=== PATIENT | female | born 1955 | race Caucasian/White ===

== ENCOUNTER 2022-08-31 14:31 | Outpatient (OUT) | payer MEDICARE, SELFPAY ==
--- NOTE | 2022-08-31 | CONS_ITS ---
PROCEDURE DATE: ??08/31/2022 PROCEDURE:? Left erector spinae trigger point injection. PREOPERATIVE DIAGNOSIS:? Pain secondary to myofascial space of the lumbar erector spinae muscles, most significant at the L4 level on the left side. POSTOPERATIVE DIAGNOSIS:? Pain secondary to myofascial space of the lumbar erector spinae muscles, most significant at the L4 level on the left side. SOLUTION USED FOR INJECTION:? 2 mL of 2% lidocaine, 2 mL of 0.25% Marcaine and 10 mg of Kenalog, total of 5 mL, 2 mL used for the injection at the site. IMMEDIATE COMPLICATIONS:? None. PROCEDURE:? After informed consent was obtained from the patient, placed in the prone position.? The skin overlying the area was prepped with alcohol.? A 25 gauge 1 ?? needle was inserted to the left erector spinae muscle at the L4 level.? Needle tip was advanced until there was a twitch response.? There was no indication of intravascular or intraneural needle tip placement.? 2 mL was injection.? No indication of intravascular or intraneural injection.? Post procedure, needle was removed.? Patient reports reduction of pain symptom post procedurally. ELDER
--- NOTE | 2022-08-31 16:31 | CONS_ITS ---
CONSULTATION DATE: ??08/31/2022 TO:? Phani Anthony D.O. CHIEF COMPLAINT:? Includes severe right mid back pain. HISTORY OF PRESENT ILLNESS:? Review of systems, past medical/surgical history were obtained and documented on the health questionnaire and is available upon request. She is a 67-year-old female who suffered multiple compression fractures at multiple sites at T8, T9, T10, T11, T12 and L2.? She reports that she last suffered a compression fracture in 2019, status post successful kyphoplasty/vertebroplasty for the same.? Despite this, she reports that she has been progressive pain on the right side of her mid back, described as a sharp, stabbing pain, increased with activities such as standing, walking and performing transitioning maneuvers.? She leads a very sedentary life.? Despite this, her pain has been progressive to the point it alters her quality of life, level of functioning and sleep pattern.? She denies any change in bowel and bladder habits or new sensorimotor changes in the lower extremities. EXAMINATION:? Notable for patient having dysesthesia and hyperesthesia along the distribution of the right T12 dermatome.? She had percussion tenderness overlying what appear to be the T12 spinous processes and/or L1 spinous processes.? She had severe myofascial spasm involving the thoracolumbar paravertebral muscles on the right side as well. IMPRESSION:? Our impression is patient appears to have chronic pain secondary to thoracic neuritis involving the right T12 level, possible compression fracture. RECOMMENDATIONS:? I recommend she undergo thoracolumbar spine films and to proceed with a T12-L1 epidural steroid injection under fluoroscopic guidance to address her pain from the thoracic neuritis, complicated by history of compression fracture.? She reports that she feels her pain is not severe enough that she would warrant to proceed with another kyphoplasty at this time.? MEDICATIONS:? Her current medication list includes < > 75 mg b.i.d., Dingess 5 mg q. 6 hours p.r.n.? She reports the medication does improve her quality of life, level of functioning and sleep pattern, and lastly Alprazolam 0.5 mg t.i.d.? We have cautioned her on the concomitant use of benzodiazepines and opioids on her visit today.? I have recommended that she have Narcan immediately available at all times. As part of providing excellent, safe, comprehensive care, the following was completed at our patient's visit: 1. A medication reconciliation and review to ensure accurate knowledge of current/active medications, including asking our patients to inform us about any [id number] medications or herbal remedies/nutritional supplements/alternative remedies. 2. A review to specifically ensure our patients have had annual screening for: elevated body mass index (BMI, see intake chart for exact total), tobacco use, screening for depression, and screening for unhealthy alcohol use.? When screening is concerning, patients are provided with education and the specific recommendation to discuss the concerning health issue and treatment options with their primary care provider. ELDER
--- NOTE | 2023-01-16 | CONS_ITS ---
CONSULTATION DATE: ??01/16/2023 ADDENDUM:? The addendum should include the diagnosis to include myalgia (diagnosis code M79.18). ELDER
== END 2022-08-31 14:32 | disposition home or self-care (01) ==
PROVIDERS: PCP Family Medicine; Visit Provider Anesthesiology Pain Medicine
DX: M54.50 Low back pain, unspecified (principal); M54.16 Radiculopathy, lumbar region; M54.14 Radiculopathy, thoracic region; G89.29 Other chronic pain; M79.18 Myalgia, other site
CPT/HCPCS: 20552; 72110

== ENCOUNTER 2022-08-31 15:56 | Outpatient (OUT) | payer MEDICARE, SELFPAY ==
--- NOTE | 2022-08-31 | XR_ITS ---
The [address] [address] Patient Name: TYRESE GUTIERRES MRN: [id number] date: 1955 Sex: F Assigned Patient Location: [facility] Current Patient Location: [facility] Accession/Order Number: [id number] Exam Date: 08/31/2022 16:18 Report Date: 09/01/2022 05:07 At the request of: JAMILAH REARDON Procedure: XR lumbar spine min 4V EXAMINATION: XR lumbar spine min 4V HISTORY: LUMBAR PAIN COMPARISON: XR L-spine 10/20/2021 FINDINGS: BONES: Moderate left convex curvature lumbar spine. Prior compression fractures and vertebroplasty of T8, T9, L2. Grossly stable compression fractures without vertebroplasty of T11 and T12. Multilevel mild-moderate degenerative facet arthropathy. DISC SPACES: Mild-moderate disc space narrowing L4-L5, L5-S1. PARASPINOUS: No paraspinous abnormality is seen. OTHER: Skin surface marker projecting posterior to right facet joint of T12-L1. IMPRESSION: 1. Multilevel compression fractures with several having previously undergone vertebral plasty; no appreciable progression. 2. Skin surface marker projects posterior to T12-L1 right facet joint. Electronically authenticated by: CELIA CORMIER Date: 09/01/2022 05:07
== END 2022-08-31 15:57 ==
LOC: RAD 15:57
PROVIDERS: PCP Family Medicine; Visit Provider Anesthesiology Pain Medicine
DX: M54.50 Low back pain, unspecified (principal); M54.16 Radiculopathy, lumbar region
CPT/HCPCS: 72110

== ENCOUNTER 2022-09-19 08:46 | Day surgery (SDC) | payer MEDICARE, SELFPAY ==
[2022-09-19 09:04] VITALS: BP 117/81; PULSE 89; RESP 14; TEMP 36.6; O2SAT 99
[2022-09-19 09:49] VITALS: BP 141/71; PULSE 62; RESP 20; O2SAT 89
[2022-09-19 09:52] VITALS: BP 135/68; PULSE 72; RESP 20; O2SAT 90
--- NOTE | 2022-09-19 10:25 | W.PM.PROCNOT ---
Date of procedure: 09/19/22 Pre-op diagnosis: thoracic radiculopathy Post-op diagnosis: same Procedure: Lumbar Epidural injection Under fluoroscopic guidance Immediate complications none Solution used for injection: Marcaine 0.25% 2mL, 2cc Normal saline, Depo-Medrol 80mg Omnipaque 3 mL Anesthesia local 2% lidocaine up to 4ml Timeout process compliant After informed consent obtained. patient brought to the procedure room placed in the prone position. skin overlying the area was prepped and draped in a sterile fashion using betadine. 25 gauge needle used To raise a skin wheel with local anesthetic over the target area identified under fluoroscopy. a 17 gauge Touhy needle Was inserted over the anesthetized area and directed towards the inter-space under fluoroscopic guidance . epidural space was identified with loss of resistance technique to air. needle Tip placement confirmed with injection of contrast solution. Steroid solution was then injected. [place] removed post operatively. Patient transferred to recovery room in stable condition, to be discharged home after meeting Criteria Anesthesia: Local Surgeon: Manuel Badillo
[2022-09-19] MEDS: BUPIVACAINE HCL 0.25% PF 25 MG/10 ML VIAL 2 ML INJ (13:03)
[2022-09-20] MEDS: 0.9 % SODIUM CHLORIDE 10 ML SYRINGE - SALINE FLUSH 2 ML INJ (13:02)
[2022-09-20] MEDS: LIDOCAINE HCL 2% PF 100 MG/5 ML VIAL INJ (13:03)
[2022-09-20] MEDS: METHYLPREDNISOLONE ACETATE 80 MG/ML VIAL INJ (13:03)
[2022-09-20] MEDS: IOHEXOL 240 MG/ML - 10 ML VIAL INJ (13:03)
== END 2022-09-19 09:57 | disposition home or self-care (01) ==
LOC: SURGOUT 08:46
PROVIDERS: PCP Family Medicine; Visit Provider Anesthesiology Pain Medicine
DX: M54.14 Radiculopathy, thoracic region (principal)
CPT/HCPCS: 62323; J1040; Q9966

== ENCOUNTER 2022-10-05 13:59 | Outpatient (OUT) | payer MEDICARE, SELFPAY ==
--- NOTE | 2022-10-05 14:12 | PM.CN ---
Consult Note: HPI Data of Consult Requesting Physician: AMAN KUMAR NP Primary Care Provider: Yolanda Chavez MD Consult Narrative cc:: CC: AMAN KUMAR NP Review of Systems ROS Status of ROS 10 or more systems reviewed and unremarkable except as noted in history and below PFSH [facility] Medical History Surgical History Meds Home Medications and Allergies Home Medications Medication Instructions Recorded Confirmed Type albuterol sulfate 90 mcg/actuation inhalation 09/06/22 History aerosol inhaler alprazolam 0.5 mg tablet 0.5 mg PO TID 09/06/22 09/19/22 History dicyclomine 20 mg tablet 20 mg PO QID 09/06/22 09/06/22 History fluticasone propionate 115 inhalation 09/06/22 History mcg-salmeterol 21 mcg/actuation HFA inhaler (Advair HFA) hydrocodone 5 mg-acetaminophen 325 1 tab PO Q6H 09/06/22 09/19/22 History mg tablet hydroxyzine HCl 25 mg tablet 25 mg PO BEDTIME 09/06/22 09/19/22 History naloxegol 12.5 mg tablet (Movantik) 12.5 mg PO DAILY 09/06/22 09/19/22 History pantoprazole 40 mg tablet,delayed 40 mg PO DAILY 09/06/22 09/19/22 History release pregabalin 75 mg capsule 75 mg PO BID 09/06/22 09/19/22 History trazodone 50 mg tablet 50 mg PO BEDTIME 09/06/22 09/19/22 History linaclotide 290 mcg capsule 290 mcg PO DAILY 09/19/22 09/19/22 History (Linzess) Allergies Allergy/AdvReac Type Severity Reaction Status Date / Time sulfamethoxazole Allergy Mild Diarrhea Unverified 09/19/22 08:59 [From Bactrim] trimethoprim [From Bactrim] Allergy Mild Diarrhea Unverified 09/19/22 08:59 ketorolac [From Toradol] Allergy Verified 09/06/22 15:43 NSAIDS (Non-Steroidal Allergy Verified 09/06/22 15:43 Anti-Inflamma rofecoxib [From Vioxx] Allergy Verified 09/06/22 15:43 varenicline [From Chantix] Allergy Verified 09/06/22 15:43 Exam Constitutional Common normals: no apparent distress, oriented x3, healthy appearing, alert and well nourished General appearance: cooperative HENGA Common normals: normocephalic Head and scalp: normocephalic Mouth: oral and palatal mucosa normal Eye Common normals: PERRL Pupil: PERRL Neck & C-Spine Common normals: full ROM General: normal visual inspection Chest Common normals: inspection of chest normal Respiratory Common normals: normal respiratory effort, no retractions and no use of accessory muscles Back & Pelvis Thoracic spine/upper back: ROM limited, pain with ROM, paraspinal muscle tenderness and kyphosis present Lumbar spine/lower back: ROM limited, pain with ROM and paraspinal muscle tenderness Sacroiliac joints: SI joints normal Back image (female): 1. Extremity Common normals: normal to inspection Neuro Common normals: oriented x3, CN's II-XII intact bilaterally, moves all extremities, no focal motor deficits, no sensory deficits noted, deep tendon reflexes 2+ bilaterally and gait normal Sensorium/orientation: alert Cranial nerves: CN normal except as noted Motor exam: strength 5/5 throughout and no movement abnormalities noted Psych Common normals: mental status grossly normal, thought process normal, cooperative, affect normal, speech normal and activity/motor behavior normal Speech: normal speech Thought process: normal thought process Assessment and Plan Assessment and Plan (1) Lumbar spondylosis: (2) Thoracic spondylosis: Plan Pt presents for follow up after GALA to t12/L1 previously this month, pt demonstrating 50% pain relief with improvement of ability to complete ADLs, patient reports her pain is now worse higher up in her back, near T5. Patients previous xray unremarkable in this area. Patients upper and lower stregth 5/5 in BUE and 5/5 in BLE. Patient denies radiculopathy. No change in bowel/bladder continence. Patient is not currently being managed with medication through our office, other physician did just increase lyrica to 150mg BID this week. Will see if this helps with her pain. PT for thoracic/lumbar pain MRI to thoracic/lumbar spine after completion of PT F/u after completion of PT in roughly 6 weeks.
== END 2022-10-05 14:00 | disposition home or self-care (01) ==
LOC: PM 14:00
PROVIDERS: PCP Family Medicine; Visit Provider Nurse Practitioner
DX: M47.816 Spondylosis without myelopathy or radiculopathy, lumbar region (principal); M47.814 Spondylosis without myelopathy or radiculopathy, thoracic region
CPT/HCPCS: G0463

== ENCOUNTER 2022-10-10 10:48 | Outpatient (RCR) | payer MEDICARE, SELFPAY | END 2022-11-07 17:06 | disposition home or self-care (01) | LOC: PT 10:48 | PROVIDERS: PCP Family Medicine; Visit Provider Anesthesiology | DX: M47.816 Spondylosis without myelopathy or radiculopathy, lumbar region (principal); M47.814 Spondylosis without myelopathy or radiculopathy, thoracic region | CPT/HCPCS: 20561; 97110; 97162 ==

== ENCOUNTER 2022-11-13 14:55 | Observation (INO) | payer MEDICARE, SELFPAY ==
[2022-11-13] VITALS (8 sets, daily range): BP systolic 99–160; BP diastolic 64–91; PULSE 73–97; RESP 16–30; TEMP 36.8–37; O2SAT 85–98; BMI 20.5; BMI 21.7
--- NOTE | 2022-11-13 15:05 | XR_ITS ---
The [address] [address] Patient Name: TYRESE GUTIERRES MRN: [id number] date: 1955 Sex: F Assigned Patient Location: ED.MAIN Current Patient Location: ER Accession/Order Number: [id number] Exam Date: 11/13/2022 15:18 Report Date: 11/13/2022 15:53 At the request of: JESSICA CASTRO Procedure: XR ankle RT min 3V EXAM: XR ankle RT min 3V HISTORY: pain s/p fall . Now with pain. COMPARISON: 10/05/2021 TECHNIQUE: 3 views of the right ankle were obtained. FINDINGS: The study is limited by diffuse osteopenia. There is no evidence of an acute fracture or dislocation. The mortise is intact. No osteochondral injury is identified. The subtalar joints are intact. No abnormal soft tissue calcifications are identified. XR/XR ankle RT min 3V IMPRESSION: No acute fracture or dislocation. No significant degenerative changes are present. The study is somewhat limited secondary to diffuse osteopenia. The overall appearance is unchanged. Electronically authenticated by: LONI SALAS Date: 11/13/2022 15:53
--- NOTE | 2022-11-13 15:05 | XR_ITS ---
The [address] [address] Patient Name: TYRESE GUTIERRES MRN: [id number] date: 1955 Sex: F Assigned Patient Location: ED.MAIN Current Patient Location: ER Accession/Order Number: [id number] Exam Date: 11/13/2022 15:18 Report Date: 11/13/2022 15:52 At the request of: JESSICA CASTRO Procedure: XR knee RT 4V EXAM: XR knee RT 4V HISTORY: pain s/p fall COMPARISON: None. TECHNIQUE: 4 views right knee. FINDINGS: Acute comminuted fracture right proximal tibia. Involves the lateral tibial plateau into the proximal and lateral tibial metaphysis. Possible nondisplaced involvement around the intercondylar eminence. Associated intra-articular lipohemarthrosis. Overall minimal tricompartmental degenerative change. Impaction at the lateral tibial plateau. XR/XR knee RT 4V IMPRESSION: Acute comminuted and impacted right proximal tibial fracture as detailed. Electronically authenticated by: LAMONT NOBLE Date: 11/13/2022 15:52
--- NOTE | 2022-11-13 15:07 | ED_ITS ---
HPI - Fall General Chief Complaint: Fall Stated Complaint: Fall Time Seen by Provider: 11/13/22 15:00 Source: patient Mode of arrival: ambulance Limitations: no limitations History of Present Illness HPI Narrative: patient is a 67-year-old female brought in by EMS for evaluation of right knee and low back pain. Patient states she was getting into her shower when the handle came off the wall and she slipped injuring her right knee and lower back. She denies any head or neck injury. Patient reports prior history of back fractures with prior surgery. She notes some tingling in her big toe. Notes diffuse pain to the right knee with swelling and pain to her right ankle that is mild. She denies any neck pain or upper back pain. Patient denies shortness of breath but states the anxiety of the situation deathly has her amp out. Patient notes that she takes [place] 7.5 every six hours chronically for low back pain prescribed by her PCP and is due for her next dose. Denies loc MD complaint: Reports fall Fall from: Reports standing Fall witnessed: Reports no Place fall occurred: Reports home Severity: mild Quality: Denies burning Associated symptoms (after fall): Denies denies Related Data Home Medications Medication Instructions Recorded Confirmed albuterol sulfate 90 mcg/actuation inhalation 09/06/22 aerosol inhaler alprazolam 0.5 mg tablet 0.5 mg PO TID 09/06/22 09/19/22 dicyclomine 20 mg tablet 20 mg PO QID 09/06/22 09/06/22 fluticasone propionate 115 inhalation 09/06/22 mcg-salmeterol 21 mcg/actuation HFA inhaler (Advair HFA) hydrocodone 5 mg-acetaminophen 325 1 tab PO Q6H 09/06/22 09/19/22 mg tablet hydroxyzine HCl 25 mg tablet 25 mg PO BEDTIME 09/06/22 09/19/22 naloxegol 12.5 mg tablet (Movantik) 12.5 mg PO DAILY 09/06/22 09/19/22 pantoprazole 40 mg tablet,delayed 40 mg PO DAILY 09/06/22 09/19/22 release pregabalin 75 mg capsule 75 mg PO BID 09/06/22 09/19/22 trazodone 50 mg tablet 50 mg PO BEDTIME 09/06/22 09/19/22 linaclotide 290 mcg capsule 290 mcg PO DAILY 09/19/22 09/19/22 (Linzess) escitalopram oxalate 5 mg tablet 5 mg PO DAILY 11/13/22 11/13/22 (Lexapro) trazodone 50 mg tablet 50 mg PO DAILY 11/13/22 11/13/22 Allergies Allergy/AdvReac Type Severity Reaction Status Date / Time sulfamethoxazole Allergy Mild Diarrhea Unverified 09/19/22 08:59 [From Bactrim] trimethoprim [From Bactrim] Allergy Mild Diarrhea Unverified 09/19/22 08:59 ketorolac [From Toradol] Allergy Verified 09/06/22 15:43 NSAIDS (Non-Steroidal Allergy Verified 09/06/22 15:43 Anti-Inflamma rofecoxib [From Vioxx] Allergy Verified 09/06/22 15:43 varenicline [From Chantix] Allergy Verified 09/06/22 15:43 Review of Systems ROS Constitutional Denies: fever, chills or change in weight Eyes Denies: change in vision or blurry vision Ears, nose, mouth, and throat Denies: throat pain or neck pain Cardiovascular Denies: chest pain or shortness of breath when lying down Respiratory Reports: shortness of breath; Denies: cough or wheezing Gastrointestinal Denies: abdominal pain or nausea Musculoskeletal Reports: back pain and joint pain (right knee and ankle) Neurological Denies: headache or behavioral changes [facility] Medical History Surgical History Exam Narrative Exam Narrative: Vital signs reviewed and nurse's notes. The patient is not hypoxic. General: Alert, patient appears uncomfortable, holding right knee semiflexed with ice pack. Skin: warm, intact, no pallor noted, no evidence of rash or skin abrasion Head: Normocephalic, atraumatic Eye: Normal conjunctiva, no exudates Respiratory: No acute distress, lungs CTA Back: positive paravertebral lumbar tenderness noted, remote surgical scars noted on the back. Patient has some mild midline tenderness in the lumbar spine no tenderness to the thoracic spine. Musculoskeletal: No evidence of deformity to the right knee. There is mild amount of swelling noted anteriorly along with knee joint effusion.. There is no ecchymosis. No erythema or warmth noted. DP and PT pulses are intact 2+. Normal sensation, normal capillary refill less than 2 seconds. There is no cyanosis or mottling noted. The patient has tenderness to no aspect of the right knee. left knee is nontender. unable to stress laxity with effusion. The patient was able to flex and extend although with pain. Patient was able to extend leg off the cart with despite pain, demonstating SLR intact. No tenderness noted to the 5th MT, midfoot, or proximal fibular area. + mild soreness to ankle , non specific. There is no pain with calcaneal squeeze, achilles tendon is intact and no defect is palpated. The patient has no pelvic instability. The patient has no shortening or rotation noted to the bilateral lower extremities. denies pain wiht log rolling hip. Neurological: alert and orient x4, normal sensory and motor observed. Psychiatric: Cooperative Constitutional Vital Signs, click to edit/add: Last Vital Signs Temp 98.2 F 11/13/22 14:57 Pulse 97 H 11/13/22 16:40 Resp 30 H 11/13/22 16:40 BP 127/91 11/13/22 16:40 Pulse Ox 85 L 11/13/22 16:42 O2 Del Method Room Air 11/13/22 16:42 O2 Flow Rate 2 11/13/22 16:42 Course Course Hospital Course: Splint Application: The patient was placed in a knee immobilizer to the right leg. The patient was neurovascularly intact post application of the splint. Vital Signs Vital signs: Vital Signs Temperature 98.2 F 11/13/22 14:57 Pulse Rate 97 H 11/13/22 14:57 Respiratory Rate 16 11/13/22 14:57 Blood Pressure 160/69 H 11/13/22 14:57 Pulse Oximetry 98 11/13/22 14:57 Oxygen Delivery Method Room Air 11/13/22 14:57 Temperature 98.2 F 11/13/22 14:57 Pulse Rate 97 H 11/13/22 16:40 Respiratory Rate 30 H 11/13/22 16:40 Blood Pressure 127/91 11/13/22 16:40 Pulse Oximetry 85 L 11/13/22 16:42 Oxygen Delivery Method Room Air 11/13/22 16:42 Oxygen Delivery Flow Rate 2 11/13/22 16:42 MDM - Fall MDM Narrative Medical decision making narrative: patient can recall mechanical fall, hand railing coming out of wall causing her to slip in the shower. Twisting her right knee. Given her prior history of back surgery and back fracture is a CT of the lumbar spinal be performed, plain film x-rays of the right knee and right ankle perfformed. Patient be medicated with Percocet 5/325 ?2 given her chronic opiate use pending imaging studies. Pt reports her son lives near by. reviewed limiting a right knee x-ray noted for comminuted tibial plateau fracture. CT of the right knee ordered, patient noted slight wheezing and had not taken her albuterol, treatment ordered with one view chest x-ray. Patient's case discussed with Dr. Ward at 16:00 Dr. Ward did review the x-rays and agrees with CT order, will consult on the patient on the floor. Pt's case Discussed with Dr. Sands agreeable to admit the patient inpatient given her fall, inability to ambulate safely with her right comminuted tibial plateau fracture. He is aware that some of the laboratory testing is pending regarding her admission for baseline testing and the need for surgical intervention will be discussed further with orthopedics pending review of her CT. Patient notes she is doing much better in the brace, oral pain medication. And received a DuoNeb treatment for her baseline wheezing with chronic obstructive pulmonary disease. Lab Data Attestation: I reviewed the patient's lab results. Labs: Lab Results 11/13/22 11/13/22 Range/Units 15:58 16:06 WBC 5.2 (4.0-11.0) 10^3/uL RBC 4.11 L (4.20-5.40) 10^6/uL Hgb 12.8 (12.0-16.0) g/dL Hct 40.8 (36.0-48.0) % MCV 99.3 H (81.0-99.0) fL MCH 31.1 (26.7-34.0) pg MCHC 31.4 (29.9-35.2) g/dL RDW 14.0 (11.0-15.0) % Plt Count 162 (150-450) 10^3/uL MPV 9.5 (9.5-13.5) fL Neut % (Auto) 71.9 (43.0-75.0) % Lymph % (Auto) 19.8 L (20.5-60.0) % [place] % (Auto) 5.4 (1.7-12.0) % Eos % (Auto) 2.1 (0.9-7.0) % Baso % (Auto) 0.4 (0.2-2.0) % Neut # (Auto) 3.7 (1.4-6.5) 10^3/uL Lymph # (Auto) 1.0 L (1.2-3.8) 10^3/uL [place] # (Auto) 0.3 (0.3-0.8) 10^3/uL Eos # (Auto) 0.1 (0.0-0.7) 10^3/uL Baso # (Auto) 0.0 (0.0-0.1) 10^3/uL Abs Immat Gran (auto) 0.02 (0.00-0.03) 10^3/uL Imm/Tot Granulo (auto) 0.4 (0.0-0.5) % PT 10.0 (9.0-11.6) sec INR 0.94 APTT 26.0 (22.3-36.2) sec Sodium 142 (136-145) mmol/L Potassium 4.2 (3.5-5.1) mmol/L Chloride 103 (98-107) mmol/L Carbon Dioxide 28.5 (21.0-32.0) mmol/L Anion Gap 14.7 BUN 14.0 (7.0-18.0) mg/dL Creatinine 0.58 (0.55-1.02) mg/dL Est GFR ( Amer) >60 (>=60) Est GFR (Non-Af Amer) >60 (>=60) BUN/Creatinine Ratio 24.1 Glucose 126 H (74-106) mg/dL Calcium 8.8 (8.5-10.1) mg/dL Urine Color Yellow (YELLOW) Urine Clarity Clear (CLEAR) Urine pH 5.5 (5.0-9.0) Ur Specific [place] 1.025 (1.005-1.025) Urine Protein Negative (NEG/TRACE) mg/dL Urine Glucose (UA) Negative (NEGATIVE) mg/dL Urine Ketones Negative (NEGATIVE) mg/dL Urine Occult Blood Negative (NEGATIVE) Urine Nitrite Negative (NEGATIVE) Urine Bilirubin Negative (NEGATIVE) Urine Urobilinogen 0.2 (0.2-1.0) EU/dL Ur Leukocyte Esterase Negative (NEGATIVE) Imaging Data Right knee xray: Radiologist's impression: Procedure: XR knee RT 4V EXAM: XR knee RT 4V HISTORY: pain s/p fall COMPARISON: None. TECHNIQUE: 4 views right knee. FINDINGS: Acute comminuted fracture right proximal tibia. Involves the lateral tibial plateau into the proximal and lateral tibial metaphysis. Possible nondisplaced involvement around the intercondylar eminence. Associated intra-articular lipohemarthrosis. Overall minimal tricompartmental degenerative change. Impaction at the lateral tibial plateau. IMPRESSION: Acute comminuted and impacted right proximal tibial fracture as detailed. Electronically authenticated by: LAMONT NOBLE Date: 11/13/2022 15:52 Right ankle xray: Radiologist's impression: Procedure: XR ankle RT min 3V EXAM: XR ankle RT min 3V HISTORY: pain s/p fall . Now with pain. COMPARISON: 10/05/2021 TECHNIQUE: 3 views of the right ankle were obtained. FINDINGS: The study is limited by diffuse osteopenia. There is no evidence of an acute fracture or dislocation. The mortise is intact. No osteochondral injury is identified. The subtalar joints are intact. No abnormal soft tissue calcifications are identified. IMPRESSION: No acute fracture or dislocation. No significant degenerative changes are present. The study is somewhat limited secondary to diffuse osteopenia. The overall appearance is unchanged. Electronically authenticated by: LONI SALAS Date: 11/13/2022 15:53 CT L/s Spine: Radiologist's impression: Patient Name: TYRESE GUTIERRES MRN: [id number] date: 1955 Sex: F Assigned Patient Location: ED.MAIN Current Patient Location: ER Accession/Order Number: [id number] Exam Date: 11/13/2022 15:18 Report Date: 11/13/2022 15:56 At the request of: JESSICA CASTRO Procedure: CT lumbar spine wo con CT lumbar spine wo con, 11/13/2022 3:18 PM EDT, OH001 HISTORY: back pain s/p fall COMPARISON: Radiographs from 08/31/2022 TECHNIQUE: Unenhanced helical computerized tomography was performed and multiplanar reformatted images were provided. Dose reduction techniques were achieved by using: automated exposure control and/or adjustment of mA and/or kV according to patient size and/or use of iterative reconstruction technique. FINDINGS: Study is suboptimal without complete visualization of L1. The lumbar vertebrae are in normal sagittal alignment. Moderate levocurvature is again noted. Slight compression fracture of L2 appears unchanged, with evidence of kyphoplasty. Slight old compression deformity of superior endplate of L5 is unchanged. No destructive osseous process is seen. The bones appear osteopenic. L1/L2: No significant spinal canal stenosis. No significant foraminal narrowing. L2/L3: No significant spinal canal stenosis. No significant foraminal narrowing. L3/L4: No significant spinal canal stenosis. No significant foraminal narrowing. L4/L5: No significant spinal canal stenosis. There is mild right foraminal narrowing. L5/S1: There is bilateral facet hypertrophy without canal stenosis. There is [id number] left foraminal narrowing. The paravertebral soft tissues appear unremarkable. CT/CT lumbar spine wo con IMPRESSION: Osteopenia and stable old compression fractures of L2 and L5. No acute fracture or subluxation is seen. Please note that the study is suboptimal due to incomplete visualization of L1. Electronically authenticated by: VINICIUS ZIEGLER Date: 11/13/2022 15:56 ECG Data Attestation: I personally reviewed and interpreted this ECG as follows: Interpretation: EKG interpretation: Emergency Department physician interpretation, normal sinus rhythm 84 , no ectopy, no ST segment elevation, normal axis. mild artifact Discharge Plan Discharge Chief Complaint: Fall Clinical Impression: Fall, Hypoxia, COPD (chronic obstructive pulmonary disease) Fracture of tibial plateau, closed Qualifiers: Encounter type: initial encounter Laterality: right Qualified Code(s): S82.141A - Displaced bicondylar fracture of right tibia, initial encounter for closed fracture Patient Disposition: Admitted As Inpatient Time of Disposition Decision: 16:23 Condition: Good
--- NOTE | 2022-11-13 15:47 | CT_ITS ---
The [address] [address] Patient Name: TYRESE GUTIERRES MRN: [id number] date: 1955 Sex: F Assigned Patient Location: ER Current Patient Location: .[facility] Accession/Order Number: [id number] Exam Date: 11/13/2022 16:20 Report Date: 11/13/2022 16:59 At the request of: JESSICA CASTRO Procedure: CT knee RT wo con EXAM: CT knee RT wo con TECHNIQUE: Axial CT images were obtained through the right knee along with sagittal and coronal reformatted images. Dose reduction techniques were achieved by using automated exposure control and/or adjustment of mA and/or kV according to patient size and/or use of iterative reconstruction technique. HISTORY: tibial plateau fracture COMPARISON: None. FINDINGS: There is mildly depressed fracture through the lateral aspect of the tibial plateau with approximately 9 mm maximal depression. Fracture extends through the lateral aspect of the tibial diaphysis. Diffuse bony demineralization. Large lipohemarthrosis of the knee. Lucency of the medial aspect of the head of the fibula suspicious for a nondisplaced fracture. CT/CT knee RT wo con IMPRESSION: Mildly depressed fracture involving the lateral aspect of the tibial plateau, as above. Suspicious for a nondisplaced fracture of the medial aspect of the fibular head. Electronically authenticated by: KAJAL HOLLIS Date: 11/13/2022 16:59
--- NOTE | 2022-11-13 15:47 | ECG_ITS ---
The [facility] Test Date: 2022-11-13 Pat Name: TYRESE GUTIERRES Department: Room: - Gender: Female Sheet Taker: : 1955 Requested By: NETTIE IQBAL Order Number: [id number] Reading MD: NOEL PRUITT Measurements Intervals [place] Rate: 84 P: 62 MI: 162 QRS: 68 QRSD: 72 T: 58 QT: 340 QTc: 381 Interpretive Statements 1100 Sinus rhythm 8102 Low QRS voltage in chest leads 9120 atypical ECG No previous ECG available for comparison Electronically Signed On 11-14-2022 7:06:51 EDT by NOEL PRUITT
--- NOTE | 2022-11-13 15:47 | XR_ITS ---
The [address] [address] Patient Name: TYRESE GUTIERRES MRN: [id number] date: 1955 Sex: F Assigned Patient Location: ER Current Patient Location: ED.MAIN Accession/Order Number: [id number] Exam Date: 11/13/2022 16:18 Report Date: 11/13/2022 17:00 At the request of: JESSICA CASTRO Procedure: XR chest 1V EXAM: XR chest 1V HISTORY: Shortness of Breath COMPARISON: 02/23/2022 FINDINGS: The heart is enlarged. There is dextroscoliosis. There is evidence of previous vertebral plasties. The pulmonary vasculature and bony thorax are unremarkable. There is no evidence of an acute infiltrate, effusion or pneumothorax. There is coarsening of the lung markings. XR/XR chest 1V IMPRESSION: No evidence of an acute infiltrate or effusion. No significant interval change from the prior exam. CT from the same day Electronically authenticated by: MARTIR VIDAL Date: 11/13/2022 17:00
[2022-11-13 16:05] LABS: Basophils Percent Auto 0.4 % (0.2-2.0); Eosinophils Absolute Auto 0.1 10^3/uL (0.0-0.7); Eosinophils Percent Auto 2.1 % (0.9-7.0); Hematocrit 40.8 % (36.0-48.0); Hemoglobin 12.8 g/dL (12.0-16.0); Immature Granulocytes Abs Auto 0.02 10^3/uL (0.00-0.03); Immature Granulocytes Pct Auto 0.4 % (0.0-0.5); Lymphocytes Percent Auto 19.8 % (20.5-60.0); Mean Corpuscular HGB Conc 31.4 g/dL (29.9-35.2); Mean Corpuscular Hemoglobin 31.1 pg (26.7-34.0); Mean Corpuscular Volume 99.3 fL (81.0-99.0); Mean Platelet Volume 9.5 fL (9.5-13.5); Monocytes Absolute Auto 0.3 10^3/uL (0.3-0.8); Monocytes Percent Auto 5.4 % (1.7-12.0); Neutrophils Absolute Auto 3.7 10^3/uL (1.4-6.5); Neutrophils Percent Auto 71.9 % (43.0-75.0); Platelet Count 162 10^3/uL (150-450); Red Blood Count 4.11 10^6/uL (4.20-5.40); White Blood Count 5.2 10^3/uL (4.0-11.0)
[2022-11-13 16:19] LABS: Anion Gap 14.7; BUN Creatinine Ratio 24.1; Calcium 8.8 mg/dL (8.5-10.1); Carbon Dioxide 28.5 mmol/L (21.0-32.0); Chloride 103 mmol/L (98-107); Estimated GFR (African America >60 (>=60); Estimated GFR (Non-African Ame >60 (>=60); Glucose 126 mg/dL (74-106); Potassium 4.2 mmol/L (3.5-5.1); Sodium 142 mmol/L (136-145)
[2022-11-13 16:33] LABS: INR 0.94
[2022-11-13] MEDS: IPRATROPIUM/ALBUTEROL SULFATE 3 ML AMPUL.NEB IH (16:35)
[2022-11-13 16:46] LABS: Bilirubin Urine NEGATIVE (NEGATIVE); Blood Urine NEGATIVE (NEGATIVE); Clarity Urine CLEAR (CLEAR); Color Urine YELLOW (YELLOW); Glucose Urine UA NEGATIVE (NEGATIVE); Ketones Urine NEGATIVE (NEGATIVE); Leukocyte Esterase Urine NEGATIVE (NEGATIVE); Nitrite Urine NEGATIVE (NEGATIVE); Protein Urine NEGATIVE (NEG/TRACE); Specific Gravity Urine 1.025 (1.005-1.025); Urobilinogen Urine 0.2 EU/dL (0.2-1.0); pH Urine 5.5 (5.0-9.0)
[2022-11-13 16:51] LABS: Urine Microscopic Indicated NO
[2022-11-13] MEDS: 0.9 % SODIUM CHLORIDE 1,000 ML 80 ML IV (18:14)
--- NOTE | 2022-11-13 20:24 | RESP.RT ---
No MDI given. Pt does note have home MDI here. No PRN breathing tx given. Pt denies need. No respiratory distress noted.
[2022-11-13] MEDS: PREGABALIN 75 MG CAPSULE PO (20:38)
--- NOTE | 2022-11-13 21:12 | P.ORCN_ITS ---
History of Present Illness HPI Consult date: 11/13/22 Consult reason: fracture Chief complaint: COPD COMMITED R TIBAL PLATEAU FX FALL Narrative: The Patient is a 67-year-old lady Who presented to the emergency room today with right knee pain after a fall. She reports she slipped getting into the shower with her right leg going into a valgus position with acute onset of pain and inability to bear weight. She presented to the emergency room where x-rays revealed a tibial plateau fracture on the right. Patient was admitted for further treatment. She reports back pain however this has been a chronic issue for her. At baseline she uses a walker and cane and is on [place] due to history of multiple lumbar fractures. Review of Systems ROS Constitutional Denies: fever Cardiovascular Denies: chest pain Gastrointestinal Denies: abdominal pain Musculoskeletal Reports: back pain and joint pain Neurological Denies: numbness in extremities [facility] Medical History Surgical History Social History (Updated 11/13/22 @ 18:18 by Kesha Joy) Within the past year, how often did you have a drink containing alcohol: never Score interpretation: A score less than 3 is consistent with normal alcohol consumption. Smoking status: Current every day smoker Non-prescribed substance use: cannabis (any form) Meds Home Medications and Allergies Home Medications Medication Instructions Recorded Confirmed Type albuterol sulfate 90 mcg/actuation 2 inh inhalation Q4H PRN shortness 09/06/22 11/13/22 History aerosol inhaler of breath or wheezing alprazolam 0.5 mg tablet 0.5 mg PO TID 09/06/22 11/13/22 History dicyclomine 20 mg tablet 20 mg PO QID 09/06/22 11/13/22 History fluticasone propionate 115 2 puff inhalation Q12H 09/06/22 11/13/22 History mcg-salmeterol 21 mcg/actuation HFA inhaler (Advair HFA) hydrocodone 5 mg-acetaminophen 325 1 tab PO Q6H 09/06/22 11/13/22 History mg tablet hydroxyzine HCl 25 mg tablet 25 mg PO BEDTIME PRN itching 09/06/22 11/13/22 History naloxegol 12.5 mg tablet (Movantik) 12.5 mg PO DAILY 09/06/22 11/13/22 History pantoprazole 40 mg tablet,delayed 40 mg PO DAILY 09/06/22 11/13/22 History release pregabalin 75 mg capsule 75 mg PO BID 09/06/22 11/13/22 History trazodone 50 mg tablet 50 mg PO BEDTIME 09/06/22 11/13/22 History linaclotide 290 mcg capsule 290 mcg PO BID 09/19/22 11/13/22 History (Linzess) escitalopram oxalate 5 mg tablet 5 mg PO DAILY 11/13/22 11/13/22 History (Lexapro) Allergies Allergy/AdvReac Type Severity Reaction Status Date / Time sulfamethoxazole Allergy Mild Diarrhea Verified 11/13/22 18:22 [From Bactrim] trimethoprim [From Bactrim] Allergy Mild Diarrhea Verified 11/13/22 18:22 ketorolac [From Toradol] Allergy Verified 11/13/22 18:22 NSAIDS (Non-Steroidal Allergy Verified 11/13/22 18:22 Anti-Inflamma rofecoxib [From Vioxx] Allergy Verified 11/13/22 18:22 varenicline [From Chantix] Allergy Verified 11/13/22 18:22 Exam Constitutional Vital Signs, click to edit/add: Last Vital Signs Temp 98.6 F 11/13/22 17:17 Pulse 83 11/13/22 17:17 Resp 20 11/13/22 17:17 BP 124/64 11/13/22 17:17 Pulse Ox 91 L 11/13/22 20:24 O2 Del Method Nasal Cannula 11/13/22 20:24 O2 Flow Rate 2 11/13/22 20:24 Results Labs Labs: Abnormal lab results 11/13/22 Range/Units 15:58 RBC 4.11 L (4.20-5.40) 10^6/uL MCV 99.3 H (81.0-99.0) fL Lymph % (Auto) 19.8 L (20.5-60.0) % Lymph # (Auto) 1.0 L (1.2-3.8) 10^3/uL Glucose 126 H (74-106) mg/dL H & H 11/13/22 Range/Units 15:58 Hgb 12.8 (12.0-16.0) g/dL Hct 40.8 (36.0-48.0) % Coagulation 11/13/22 Range/Units 15:58 INR 0.94 All other labs normal. Diagnostic results Knee CT: other (X-rays and a CT scan of her right knee reviewed and show a posterior lateral tibial plateau fracture with less than 1 cm of joint depression in the setting of osteoporosis. Nondisplaced fracture fibular head) Assessment and Plan Assessment and Plan (1) Fracture of tibial plateau, closed: Qualifiers: Encounter type: initial encounter Laterality: right Qualified Code(s): S82.141A - Displaced bicondylar fracture of right tibia, initial encounter for closed fracture Plan For her right tibial plateau fracture I recommended conservative treatment. She will be treated in a knee immobilizer, elevation and icing. She should be nonweightbearing to that right lower extremity. I will want to see her back in the office November 20 to repeat x-rays and reassess her progress. At that time will plan to get her into a hinged knee brace.
[2022-11-13] MEDS: HYDROXYZINE HCL 25 MG TABLET PO (21:53)
[2022-11-13] MEDS: TRAZODONE HCL 50 MG TABLET PO (21:53)
[2022-11-13] MEDS: ALPRAZOLAM 0.5 MG TABLET PO (21:53)
[2022-11-14] VITALS (8 sets, daily range): BP systolic 98–150; BP diastolic 57–85; PULSE 94–102; RESP 2–18; TEMP 36.5–37.5; O2SAT 91–97
[2022-11-14 04:24] LABS: Basophils Percent Auto 0.3 % (0.2-2.0); Eosinophils Absolute Auto 0.2 10^3/uL (0.0-0.7); Eosinophils Percent Auto 2.6 % (0.9-7.0); Hematocrit 34.2 % (36.0-48.0); Hemoglobin 10.6 g/dL (12.0-16.0); Immature Granulocytes Abs Auto 0.02 10^3/uL (0.00-0.03); Immature Granulocytes Pct Auto 0.3 % (0.0-0.5); Lymphocytes Percent Auto 31.5 % (20.5-60.0); Mean Corpuscular Hemoglobin 30.6 pg (26.7-34.0); Mean Corpuscular Volume 98.8 fL (81.0-99.0); Mean Platelet Volume 9.6 fL (9.5-13.5); Monocytes Absolute Auto 0.4 10^3/uL (0.3-0.8); Monocytes Percent Auto 6.7 % (1.7-12.0); Neutrophils Absolute Auto 3.7 10^3/uL (1.4-6.5); Neutrophils Percent Auto 58.6 % (43.0-75.0); Platelet Count 139 10^3/uL (150-450); Red Blood Count 3.46 10^6/uL (4.20-5.40); Red Cell Distribution Width 14.2 % (11.0-15.0); White Blood Count 6.3 10^3/uL (4.0-11.0)
[2022-11-14 04:35] LABS: Anion Gap 11.2; BUN Creatinine Ratio 22.6; Carbon Dioxide 28.7 mmol/L (21.0-32.0); Chloride 104 mmol/L (98-107); Estimated GFR (African America >60 (>=60); Estimated GFR (Non-African Ame >60 (>=60); Glucose 101 mg/dL (74-106); Potassium 3.9 mmol/L (3.5-5.1); Sodium 140 mmol/L (136-145)
[2022-11-14] MEDS: OMEPRAZOLE 40 MG CAPSULE.DR PO (05:31)
[2022-11-14] MEDS: 0.9 % SODIUM CHLORIDE 1,000 ML 80 ML IV ×3 (05:31→16:58)
[2022-11-14] MEDS: ALPRAZOLAM 0.5 MG TABLET PO ×2 (05:31→14:44)
[2022-11-14] MEDS: ESCITALOPRAM 10 MG TABLET 5 MG PO (08:31)
[2022-11-14] MEDS: ENOXAPARIN SODIUM 40 MG/0.4 ML SYRINGE SUBQ (08:32)
[2022-11-14] MEDS: PREGABALIN 75 MG CAPSULE PO ×2 (08:32→20:50)
--- NOTE | 2022-11-14 10:30 | CM.NOTE ---
Rounds made with Dr. Sands. No plan for discharge today. Awaiting PT/OT assessments to determine plan.
--- NOTE | 2022-11-14 10:32 | P.HP_ITS ---
H&P: HPI History of Present Illness Chief complaint: Fall, right knee pain Narrative: 67 y/o female to ER after a fall. Patient getting into shower and foot slipped. Reached for grab bar and pulled it off wall falling to ground in tub. Severe pain and immediate swelling in right knee. History of chronic back pain and compression fractures in thoracic and lumbar spine. C/o increased pain in back. To ER and CT lumbar spine without acute change. X-ray knee showed tibial plateau fracture. CT knee confirmed fracture and admitted. Ortho consulted and evaluated patient. [place] non surgical and continue immobilizer. Recommended NWB right LE and f/u in office. Started percocet for pain and continues to c/o increased pain. History of chronic bronchitis and developed hypoxia in ER but now back on room air. Review of Systems ROS Constitutional Denies: fever, chills or fatigue Cardiovascular Denies: chest pain, palpitations, edema or lightheadedness Respiratory Denies: shortness of breath, cough or wheezing Gastrointestinal Denies: abdominal pain, nausea, vomiting or diarrhea Genitourinary Denies: painful urination [facility] Medical History (Updated 11/14/22 @ 10:31 by Parth Sands MD) Surgical History Social History (Updated 11/13/22 @ 18:18 by Kesha Joy) Within the past year, how often did you have a drink containing alcohol: never Score interpretation: A score less than 3 is consistent with normal alcohol consumption. Smoking status: Current every day smoker Non-prescribed substance use: cannabis (any form) Meds Home Medications and Allergies Home Medications Medication Instructions Recorded Confirmed Type albuterol sulfate 90 mcg/actuation 2 inh inhalation Q4H PRN shortness 09/06/22 11/13/22 History aerosol inhaler of breath or wheezing alprazolam 0.5 mg tablet 0.5 mg PO TID 09/06/22 11/13/22 History dicyclomine 20 mg tablet 20 mg PO QID 09/06/22 11/13/22 History fluticasone propionate 115 2 puff inhalation Q12H 09/06/22 11/13/22 History mcg-salmeterol 21 mcg/actuation HFA inhaler (Advair HFA) hydrocodone 5 mg-acetaminophen 325 1 tab PO Q6H PRN pain 09/06/22 11/14/22 History mg tablet hydroxyzine HCl 25 mg tablet 25 mg PO BEDTIME PRN itching 09/06/22 11/13/22 History naloxegol 12.5 mg tablet (Movantik) 12.5 mg PO DAILY 09/06/22 11/13/22 History pantoprazole 40 mg tablet,delayed 40 mg PO DAILY 09/06/22 11/13/22 History release pregabalin 75 mg capsule 75 mg PO BID 09/06/22 11/13/22 History trazodone 50 mg tablet 50 mg PO BEDTIME PRN sleep 09/06/22 11/14/22 History linaclotide 290 mcg capsule 290 mcg PO BID 09/19/22 11/13/22 History (Linzess) escitalopram oxalate 5 mg tablet 5 mg PO DAILY 11/13/22 11/13/22 History (Lexapro) Allergies Allergy/AdvReac Type Severity Reaction Status Date / Time sulfamethoxazole Allergy Mild Diarrhea Verified 11/13/22 18:22 [From Bactrim] trimethoprim [From Bactrim] Allergy Mild Diarrhea Verified 11/13/22 18:22 ketorolac [From Toradol] Allergy Verified 11/13/22 18:22 NSAIDS (Non-Steroidal Allergy Verified 11/13/22 18:22 Anti-Inflamma rofecoxib [From Vioxx] Allergy Verified 11/13/22 18:22 varenicline [From Chantix] Allergy Verified 11/13/22 18:22 Exam Constitutional Vital Signs, click to edit/add: Last Vital Signs Temp 97.7 F 11/14/22 05:45 Pulse 102 H 11/14/22 05:45 Resp 16 11/14/22 05:45 BP 150/85 H 11/14/22 05:45 Pulse Ox 92 L 11/14/22 05:45 O2 Del Method Nasal Cannula 11/14/22 05:45 O2 Flow Rate 2 11/14/22 05:45 Documenting provider has reviewed patient's vital signs: yes Common normals: no apparent distress, oriented x3 and alert HENMT Common normals: normocephalic Eye Common normals: PERRL and EOMs intact bilaterally Respiratory Common normals: normal respiratory effort and clear to auscultation bilaterally Cardio Common normals: regular rate, regular rhythm, no gallops, no murmurs and no rub GI Common normals: Normal to inspection, nondistended, normoactive bowel sounds present and non-tender Extremity Common normals: no pedal edema Results Labs Labs: Short CBC 11/13/22 11/14/22 Range/Units 15:58 04:07 WBC 5.2 6.3 (4.0-11.0) 10^3/uL Hgb 12.8 10.6 L (12.0-16.0) g/dL Hct 40.8 34.2 L (36.0-48.0) % Plt Count 162 139 L (150-450) 10^3/uL BMP 11/13/22 11/14/22 15:58 04:07 Sodium 142 140 Potassium 4.2 3.9 Chloride 103 104 Carbon Dioxide 28.5 28.7 BUN 14.0 14.0 Creatinine 0.58 0.62 Glucose 126 H 101 Calcium 8.8 8.0 L Urine 11/13/22 Range/Units 16:06 Urine Color Yellow (YELLOW) Urine Clarity Clear (CLEAR) Urine pH 5.5 (5.0-9.0) Ur Specific [place] 1.025 (1.005-1.025) Urine Protein Negative (NEG/TRACE) mg/dL Urine Glucose (UA) Negative (NEGATIVE) mg/dL Pulse Oximetry Attestation: I have reviewed the pertinent pulse oximetry results. Imaging CT Knee and lumbar spine: Attestation: I have reviewed the pertinent imaging results. Assessment and Plan Assessment and Plan (1) Fracture of tibial plateau, closed: Qualifiers: Encounter type: initial encounter Laterality: right Qualified Code(s): S82.141A - Displaced bicondylar fracture of right tibia, initial encounter for closed fracture (2) Compression fracture of lumbar vertebra with routine healing: (3) Compression fracture of thoracic vertebra with routine healing: (4) Chronic bronchitis with productive mucopurulent cough: (5) Hypoxia: (6) Fall: (7) Venous insufficiency: (8) Lumbar spondylosis: (9) Osteoporosis: Plan Ortho consulted and not surgical. Start PT/OT and need to be NWB to right LE. Use percocet for pain and add morphine for breakthrough pain. Resume home medication. Monitor vitals and SpO2. Resume inhalers and give breathing treatments PRN. Anticipate over 2 midnights in the hospital. If patient has difficulty remaining NWB may need SNF upon discharge.
[2022-11-14] MEDS: ALBUTEROL SULFATE 2.5 MG/3 ML VIAL NEB IH ×3 (10:46→20:16)
[2022-11-14] MEDS: BUDESONIDE 0.5 MG/2 ML AMPULE NEB IH ×2 (10:53→20:16)
--- NOTE | 2022-11-14 11:34 | SWNOTE1 ---
GILBERT met with pt to discuss dc needs. Pt lives at home alone. Pt has a son that lives close by and she has good neighbors on both sides of her that would be there if she needs anything. Pt's son works 2nd shift, but her neighbors know where her spare ortez in case she needs anything. Pt stated she has been using a walker for nearly 20 years. SW did let her know it is different using a walker when you are NWB. Pt voiced she worked with therapy and it went alright getting from bed to commode. Pt would not have anyone staying with her 02/10, but again voiced her son and neighbors would be helpful to her. They would go to the store for her and she did state she has a lot of frozen meals as well. SW and pt spoke about HH and skilled. Pt is voicing she really wants to go home with home health compared to skilled. Pt expressed to pt to think about her safety at home and getting up and maintaining NWB status. GILBERT let pt know if she is thinking a little about going to rehab at SNF, she is a precert and we have to get approval from insurance company, and this could take 2-3 days. She voiced understanding. SW recommended talking with her son, she stated he will be up soon. SW to check back in a little bit. GILBERT did provide pt with a list from medicare.gov with star ratings. Pt will review. GILBERT reviewed IMM, Important Message from Medicare, form with pt. Pt had no questions and signed form. GILBERT made copy and placed in chart, original given to pt.
--- NOTE | 2022-11-14 12:47 | SWNOTE1 ---
Pt is going to be in observation status. SW reviewed [employer] form with pt. Pt did voice understanding and did not have any questions at this time. Pt signed [employer]ER[employer] form, original given to pt and copy placed on chart. Pt also voiced she does remember her having [facility] and that is who she would want if they accept her insurance. SW to check back on her to see if son arrives this afternoon to discuss dc plans with him as well.
--- NOTE | 2022-11-14 13:33 | PC.NURSE ---
notified RN of request for morphine and requested spo2 monitor from icu
[2022-11-14] MEDS: MORPHINE SULFATE 2 MG/ML SYRINGE IV (13:46)
--- NOTE | 2022-11-14 14:36 | SWNOTE1 ---
GILBERT spoke with pt and pt's son in room. They are both in agreement and have discussed discharge plans and would like for pt to go home with home health. She would like [facility]. Pt's son did voice he will be helping her at home and the neighbors will be helping even more now. Referral sent to [facility].
--- NOTE | 2022-11-14 16:13 | RESP.RT ---
trial on room air while doing HHN tx
--- NOTE | 2022-11-14 16:31 | PC.NURSE ---
patient states i feel fine just tired when asked about pain level
--- NOTE | 2022-11-14 18:03 | PC.NURSE ---
patient requested to keep meal at bedside to keep working on it
[2022-11-14] MEDS: TRAZODONE HCL 50 MG TABLET PO (22:14)
[2022-11-14] MEDS: HYDROXYZINE HCL 25 MG TABLET PO (22:14)
[2022-11-15] VITALS (8 sets, daily range): BP systolic 93–134; BP diastolic 55–78; PULSE 74–89; RESP 16–18; TEMP 36.6–37.8; O2SAT 81–94; BMI 21.7
[2022-11-15] MEDS: 0.9 % SODIUM CHLORIDE 1,000 ML 80 ML IV ×2 (05:36→17:50)
[2022-11-15] MEDS: ONDANSETRON PF 4 MG/2 ML VIAL IV ×2 (05:42→15:06)
[2022-11-15] MEDS: OMEPRAZOLE 40 MG CAPSULE.DR PO (05:43)
[2022-11-15] MEDS: PREGABALIN 75 MG CAPSULE PO ×2 (09:07→22:04)
[2022-11-15] MEDS: ENOXAPARIN SODIUM 40 MG/0.4 ML SYRINGE SUBQ (09:07)
[2022-11-15] MEDS: ESCITALOPRAM 10 MG TABLET 5 MG PO (09:07)
--- NOTE | 2022-11-15 09:47 | SWNOTE1 ---
[facility] is able to accept pt.
[2022-11-15] MEDS: ALBUTEROL SULFATE 2.5 MG/3 ML VIAL NEB IH ×3 (10:33→20:25)
[2022-11-15] MEDS: BUDESONIDE 0.5 MG/2 ML AMPULE NEB IH ×2 (10:34→20:25)
--- NOTE | 2022-11-15 10:49 | CM.NOTE ---
Rounds made with Dr. Sands. Dr. Sands would like Afia to be able to ambulate with NWB status the goal length recommended by P.T. and do it safely. Will also need to be weaned from oxygen. Will follow up tomorrow. No discharge today.
--- NOTE | 2022-11-15 11:30 | PM.PN ---
Progress Note: Subjective Subjective Interval history: Patient improved this am. Reports pain tolerable with percocet. Working with PT and able to transfer and remain NWB but hasn't tried moving around room. Patient wants to go home with home health. Decreased appetite but no emesis or diarrhea. No chest pain or palpitations. No SOB or cough. Exam Constitutional Vital Signs, click to edit/add: Last Vital Signs Temp 100.1 F 11/15/22 06:00 Pulse 89 11/15/22 06:00 Resp 16 11/15/22 06:00 BP 134/78 11/15/22 06:00 Pulse Ox 91 L 11/15/22 10:37 O2 Del Method Nasal Cannula 11/15/22 10:37 O2 Flow Rate 2 11/15/22 10:37 Documenting provider has reviewed patient's vital signs: yes Common normals: no apparent distress, oriented x3 and alert HENMT Common normals: normocephalic Eye Common normals: PERRL and EOMs intact bilaterally Respiratory Common normals: normal respiratory effort and clear to auscultation bilaterally Cardio Common normals: regular rate, regular rhythm, no gallops, no murmurs and no rub GI Common normals: Normal to inspection, nondistended, normoactive bowel sounds present and non-tender Extremity Common normals: no pedal edema Progress Note: A&P Assessment and Plan (1) Fracture of tibial plateau, closed: Qualifiers: Encounter type: initial encounter Laterality: right Qualified Code(s): S82.141A - Displaced bicondylar fracture of right tibia, initial encounter for closed fracture (2) Compression fracture of lumbar vertebra with routine healing: (3) Compression fracture of thoracic vertebra with routine healing: (4) Acute urinary retention: (5) Chronic bronchitis with productive mucopurulent cough: (6) Hypoxia: (7) Fall: (8) Venous insufficiency: (9) Lumbar spondylosis: (10) Osteoporosis: Plan Pain tolerable with percocet and continue. Patient to remain NWB on RLE. Continue PT. Patient will need walker to assist with ambulation around house. Patient doesn't want SNF and advised will need to more around room more to ensure able to safely go home. Wean O2 as tolerated and continue breathing treatments.
--- NOTE | 2022-11-15 12:14 | PT.DAILY ---
Physical Therapy Daily Note PT Daily Note/Assess Start: 11/15/22 12:04 Freq: Status: Active Protocol: Document 11/15/22 12:04 COLBY (Rec: 11/15/22 12:12 COLBY [id number]) Physical Therapy Daily Note/Assessment Time In/Time Out Time In 11:30 Time Out 11:45 Pain In Pain N/A Pain Out Pain N/A Subjective Subjective Sitting in BS chair upon arrival. Agrees to PT. 6/10 pain currently in R LE. Therapeutic Activity Time Therapeutic Activity Minutes (minutes) 13 Therapeutic Activity Units 1 Therapeutic Activity Treatment Bed Mobility Ability Standby Assistance Chair Transfer Ability Standby Assistance Therapeutic Activity Comments Sit>stand from BS chair SBA. ABle to maintain NWB and static stand for 1 min while BRUSH FABRICATION SUPERVISOR drains catheter for pt as she said she was feeling a lot of pressure. Pt then amb 30' with SW NWB R LE. Amb to restroom to practice toilet transfers. Pt sit>stand on/off toilet 2x with SBA and using grab bar on R side. Pt then amb back to bed 15' with SW while maintaining NWB R LE. Able to advance her own leg but grabbing onto brace and shifting her leg - SUP. Pt needs assistance for pillow placement under LEs. Call light is in reach and needs met. Total Physical Therapy Time Total Therapy Minutes 13 Total Physical Therapy Units 1 Summary Daily Note Summary Improving transfer ability with minimal fatigue. Pt able to maintain NWB throughout session.
--- NOTE | 2022-11-15 12:44 | SWNOTE1 ---
GILBERT spoke with pt after working with therapy. Pt does feel it went well and does feel she can do it at home still. Pt does not want to go to rehab, her plan is still to go home. SW let her know she did dip when she worked with therapy and she may need home oxygen. SW asked pt if she could still get around with oxygen and walker at home, pt voiced that she could. SW let pt know [facility] can accept. SW and pt spoke about a walker at home and she wants walker without wheels. 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 GILBERT sent to [employer].
--- NOTE | 2022-11-15 14:35 | SWNOTE1 ---
GILBERT called [facility] and the walker order has went through and they have called the son to let him know. GILBERT called son as well, no answer. GILBERT to check with pt.
--- NOTE | 2022-11-15 14:39 | SWNOTE1 ---
SW spoke with nursing and pt does qualify for home oxygen, will need script from doctor and his face to face documentation. SW to set up tomorrow.
--- NOTE | 2022-11-15 15:37 | SWNOTE1 ---
Pt will likely need home O2, nursing did walk test and she qualified, will need script and documentation from doctor. Will use [facility] for oxygen as well.
[2022-11-15] MEDS: HYDROXYZINE HCL 25 MG TABLET PO (22:04)
[2022-11-15] MEDS: TRAZODONE HCL 50 MG TABLET PO (22:04)
[2022-11-16 05:44] VITALS: BP 109/63; PULSE 72; RESP 18; TEMP 37.2; O2SAT 90
[2022-11-16] MEDS: OMEPRAZOLE 40 MG CAPSULE.DR PO (06:25)
[2022-11-16] MEDS: 0.9 % SODIUM CHLORIDE 1,000 ML 80 ML IV (06:27)
[2022-11-16] MEDS: ENOXAPARIN SODIUM 40 MG/0.4 ML SYRINGE SUBQ (08:14)
[2022-11-16] MEDS: ESCITALOPRAM 10 MG TABLET 5 MG PO (08:15)
[2022-11-16] MEDS: PREGABALIN 75 MG CAPSULE PO (08:15)
--- NOTE | 2022-11-16 10:29 | CM.NOTE ---
Rounds made with casey Reyes to discharge pt to home today with home oxygen and HH services. Contacted pt's son regarding discharge. Son will picker machine operator walker today and would like to be called when pt discharge is complete.
--- NOTE | 2022-11-16 10:43 | P.DS_ITS ---
DS: Providers Provider Date of admission: 11/13/22 15:30 Primary care physician: Yolanda Chavez MD Consults: 11/13/22 16:14 Consult to Orthopedic Surgery Routine Consulting Provider: Paco Ward Reason For Exam: Reason for consultation: Right tibial plateau fracture Has provider been notified: Yes 11/13/22 17:11 Occupational Therapy Eval and Treat Routine Reason for consultation: Tibeal Plateau fracture Physical Therapy Eval and Treat Routine Reason for consultation: Tibeal Plateau fracture DS: Diagnosis Discharge Diagnosis (1) Fracture of tibial plateau, closed: Qualifiers: Encounter type: initial encounter Laterality: right Qualified Code(s): S82.141A - Displaced bicondylar fracture of right tibia, initial encounter for closed fracture (2) Compression fracture of lumbar vertebra with routine healing: (3) Compression fracture of thoracic vertebra with routine healing: (4) Acute urinary retention: (5) Chronic bronchitis with productive mucopurulent cough: (6) Hypoxia: (7) Fall: (8) Venous insufficiency: (9) Lumbar spondylosis: (10) Osteoporosis: DS: Summary Hospital Course Hospital Course: Reason for admission: See H&P for details. 67 y/o female to ER after a fall. Patient getting into shower and foot slipped. Reached for grab bar and pulled it off wall falling to ground in tub. Severe pain and immediate swelling in right knee. History of chronic back pain and compression fractures in thoracic and lumbar spine. C/o increased pain in back. To ER and CT lumbar spine witho ut acute change. X-ray knee showed tibial plateau fracture. CT knee confirmed fracture and admitted. Hospital course: Ortho consulted and evaluated patient. [place] non surgical and continue immobilizer. Recommended NWB right LE and f/u in office. Started percocet for pain and PT to help with nonweight bearing. History of chronic bronchitis and developed hypoxia in ER but able to wean to room air. C/o difficulty voiding and had to straight cath. Developed hypoxia and placed back on oxygen. Slowly improved. Continued to work with PT. Patient and son felt would be able to go home with home health. Patient needed to use a walker to remain NWB and script written. Again not able to void and Mace catheter placed. Not able to wean off oxygen. Performed walk test and patient desat urated to 81% which qualified for home O2. Pain tolerable. Discharged home in stable condition. Arranged for home O2 at 2 LPM with portability. Use percocet PRN for pain. Discharge with Mace and urinary retention related to combination of opiates and trauma. Need to f/u with urology to address urinary retention. F/u with ortho to evaluate healing. Resume home medication as directed. Time Spent with Patient Time attestation: Total time spent providing and/or coordinating discharge services: Exam Constitutional Vital Signs, click to edit/add: Last Vital Signs Temp 99 F 11/16/22 05:44 Pulse 72 11/16/22 05:44 Resp 18 11/16/22 05:44 BP 109/63 11/16/22 05:44 Pulse Ox 90 L 11/16/22 05:44 O2 Del Method Nasal Cannula 11/16/22 05:44 O2 Flow Rate 2 11/16/22 05:44 Documenting provider has reviewed patient's vital signs: yes Common normals: no apparent distress, oriented x3 and alert HENMT Common normals: normocephalic Eye Common normals: PERRL and EOMs intact bilaterally Respiratory Common normals: normal respiratory effort and clear to auscultation bilaterally Cardio Common normals: regular rate, regular rhythm, no gallops, no murmurs and no rub GI Common normals: Normal to inspection, nondistended, normoactive bowel sounds present and non-tender Extremity Common normals: no pedal edema Discharge Plan Discharge Disposition: Home Health Service Condition: Good Discharge Medications: New oxycodone-acetaminophen 10-325 mg tablet 1 tab PO Q4H PRN (Reason: pain) 7 Days Qty: 42 0RF Continued trazodone 50 mg tablet 50 mg PO BEDTIME PRN (Reason: sleep) hydrocodone-acetaminophen 5-325 mg tablet 1 tab PO Q6H PRN (Reason: pain) alprazolam 0.5 mg tablet 0.5 mg PO TID dicyclomine 20 mg tablet 20 mg PO QID pantoprazole 40 mg tablet,delayed release (DR/EC) 40 mg PO DAILY hydroxyzine HCl 25 mg tablet 25 mg PO BEDTIME PRN (Reason: itching) albuterol sulfate 90 mcg/actuation HFA aerosol inhaler 2 inh INHALATION Q4H PRN (Reason: shortness of breath or wheezing) pregabalin 75 mg capsule 75 mg PO BID fluticasone propion-salmeterol [Advair HFA] 115-21 mcg/actuation HFA aerosol inhaler 2 puff INHALATION Q12H Movantik 12.5 mg tablet 12.5 mg PO DAILY Patient Comments: NEEDED Linzess 290 mcg capsule 290 mcg PO BID escitalopram oxalate [Lexapro] 5 mg tablet 5 mg PO DAILY Activity: resume usual activities as tolerated Diet: advance to your usual diet Patient Instructions: Using Oxygen at Home (DC), Hypoxia (GEN) Activity Restrictions/Additional Instructions: DO NOT USE Hydrocodone...use Oxycodone that was called in to your pharmacy [place] Registered Nurse Rn/Motor Coach Bus Driver Instructions: [facility], phone number is [phone], they should call within 48 hours of discharge. Forms: Portal Instructions Follow Up Appointments: Follow up appt. with Dr. Ward on @ 10:30am at [facility] entrance. Office #: [phone] Follow up appt. with Dr. Chavez on . @ 9:30am Office #: [phone]
--- NOTE | 2022-11-16 10:49 | CM.NOTE ---
Clinical faxed to [facility] and also called to verify fax. Explained that son would like to pick pt up by 1:00 if oxygen tank could be delivered as early as possible.
[2022-11-16 11:02] VITALS: PULSE 78; RESP 18; O2SAT 93
[2022-11-16] MEDS: BUDESONIDE 0.5 MG/2 ML AMPULE NEB IH (11:02)
[2022-11-16] MEDS: ALBUTEROL SULFATE 2.5 MG/3 ML VIAL NEB IH (11:02)
[2022-11-16 11:09] VITALS: O2SAT 93
--- NOTE | 2022-11-16 12:15 | SWNOTE1 ---
Case Management was able to send over script, dc summary, and face to face to [facility]. [employer] called son and let them know about co-pay amount. SW called [facility] and they are working on time of delivery for tank at hospital. Pt's son does work 2nd shift and trying to get tank here by 1:00 at the latest. [employer] will be calling pt or son soon with time. GILBERT updated son.
--- NOTE | 2022-11-16 15:24 | SWNOTE1 ---
[facility] delivered home oxygen tank. They called pt and they also told pt they will not bring rest of supplies to the home until tomorrow, SW to call [employer] to verify. GILBERT did call and set up transport home viz stretcher with [facility]. Pt and son in agreement that is what they wanted to do. [facility] will be here at 6:00 to get pt. SW to [facility]fiy nursing and pt. SW filled out [facility] paperwork. Nursing called and [facility] will be here at 4:15 to get pt now.
--- NOTE | 2022-11-16 15:55 | SWNOTE1 ---
GILBERT spoke with [facility] service [facility] and they will be out this evening to deliver the concentrator and rest of supplies. SW to let pt know. Pt has to call the number SW provides for [facility] once she arrives home.
--- NOTE | 2022-11-17 15:12 | CM.DCFOLLOWU ---
Person spoke with: patient How are you feeling? rough night due to having diarrhea How is your pain? OK at the time Did you understand your discharge instructions? yes Do you have any questions about your discharge instructions? no Were you given any prescriptions at discharge? yes Were you able to get your prescriptions filled? yes son picked up Do you understand how to take your medications as ordered? yes Do you have any questions about your follow up appointment and do you plan to keep your follow up appointment? no questions, yes she is aware of follow ups that are scheduled Is there anything else that you would like to discuss? oxygen [employer] did not come, but she does have the equipment that was delivered yesterday to hospital. Advised to call oxygen [employer] as the number is listed on dc packet, patient voiced she will do that. Home Health has not called yet either, she will call Sunday if they have not called. Questions/Comments/Concerns/Other:
== END 2022-11-16 16:59 | disposition home health service (06) ==
LOC: ER 17:00 → MS 17:04
PROVIDERS: Personal Emergency Response Attendant; Admitting Provider Family Medicine; Emergency Provider Emergency Medicine Emergency Medical Services; PCP Family Medicine; Visit Provider Family Medicine
DX: S82.141A Displaced bicondylar fracture of right tibia, initial encounter for closed fracture (principal); I87.2 Venous insufficiency (chronic) (peripheral); R33.9 Retention of urine, unspecified; J44.9 Chronic obstructive pulmonary disease, unspecified; F17.210 Nicotine dependence, cigarettes, uncomplicated; M81.0 Age-related osteoporosis without current pathological fracture; S22.000D Wedge compression fracture of unspecified thoracic vertebra, subsequent encounter for fracture with routine healing; S32.000D Wedge compression fracture of unspecified lumbar vertebra, subsequent encounter for fracture with routine healing; M47.816 Spondylosis without myelopathy or radiculopathy, lumbar region; R09.02 Hypoxemia; Z79.899 Other long term (current) drug therapy; W18.2XXA Fall in (into) shower or empty bathtub, initial encounter
CPT/HCPCS: 36415; 51702; 51798; 71045; 72131; 73564; 73610; 73700; 80048; 81003; 85025; 85610; 85730; 93005; 94640; 94761; 96372; 96374; 96375; 96376; 97162; 97165; 97530; 97535; 99285; G0378

== ENCOUNTER 2022-12-04 10:47 | Outpatient (OUT) | payer MEDICARE, SELFPAY ==
--- NOTE | 2022-12-04 10:58 | XR_ITS ---
[address] [address] Patient Name: TYRESE GUTIERRES MRN: [id number] date: 1955 Sex: F Assigned Patient Location: [facility] Current Patient Location: [facility] Accession/Order Number: [id number] Exam Date: 12/04/2022 11:30 Report Date: 12/04/2022 13:28 At the request of: CELIA BOATENG Procedure: XR knee RT 4V EXAM: XR knee RT 4V HISTORY: Acute Pain Of Right Knee M25.561 COMPARISON: 11/13/2022 TECHNIQUE: 4 views Findings/impression: Comminuted and impacted fracture of the proximal tibia plateau bridging callus and sclerosis, suggesting healing. Soft tissue swelling. Continue follow-up knee radiograph is recommended. Electronically authenticated by: WAI POWERS Date: 12/04/2022 13:28
== END 2022-12-04 10:48 | disposition home or self-care (01) ==
LOC: RAD 10:48
PROVIDERS: PCP Family Medicine; Visit Provider Orthopaedic Surgery
DX: M25.561 Pain in right knee (principal)
CPT/HCPCS: 73564

== ENCOUNTER 2023-01-01 08:30 | Outpatient (OUT) | payer MEDICARE, SELFPAY ==
--- NOTE | 2023-01-01 08:32 | XR_ITS ---
[address] [address] Patient Name: TYRESE GUTIERRES MRN: [id number] date: 1955 Sex: F Assigned Patient Location: [facility] Current Patient Location: [facility] Accession/Order Number: [id number] Exam Date: 01/01/2023 09:05 Report Date: 01/01/2023 10:21 At the request of: CELIA BOATENG Procedure: XR knee RT 4V EXAM: XR knee RT 4V HISTORY: Closed Disp Bicondylar Fracture Of Right Tibia S82.141D COMPARISON: 12/04/2022 TECHNIQUE: 4 views Findings/impression: No significant change from the prior exam. Redemonstration of comminuted impacted fracture lateral tibial plateau. No significant healing since the prior exam. Soft tissue swelling. Electronically authenticated by: WAI POWERS Date: 01/01/2023 10:21
== END 2023-01-01 08:31 | disposition home or self-care (01) ==
LOC: RAD 08:30
PROVIDERS: PCP Family Medicine; Visit Provider Orthopaedic Surgery
DX: S82.141D Displaced bicondylar fracture of right tibia, subsequent encounter for closed fracture with routine healing (principal)
CPT/HCPCS: 73564

== ENCOUNTER 2023-01-13 09:16 | Observation (INO) | payer MEDICARE, SELFPAY ==
[2023-01-13] VITALS (26 sets, daily range): BP systolic 104–139; BP diastolic 59–89; PULSE 59–87; RESP 10–27; TEMP 36.5–37.1; O2SAT 81–97; BMI 21.0; BMI 20.8
--- NOTE | 2023-01-13 09:20 | ECG_ITS ---
The [facility] Test Date: 2023-01-13 Pat Name: TYRESE GUTIERRES Department: Room: [facility] Gender: Female Medical Consultant: : 1955 Requested By: NETTIE IQBAL Order Number: [id number] Reading MD: NICO MACIEL Measurements Intervals Faith Rate: 82 P: 60 AR: 166 QRS: 71 QRSD: 80 T: 74 QT: 382 QTc: 421 Interpretive Statements 1100 Sinus rhythm 9110 normal ECG Compared to ECG 11/13/2022 16:37:08 No significant changes Electronically Signed On 01-17-2023 6:58:14 EST by NICO MACIEL
--- NOTE | 2023-01-13 09:28 | XR_ITS ---
The [address] [address] Patient Name: TYRESE GUTIERRES MRN: [id number] date: 1955 Sex: F Assigned Patient Location: ER Current Patient Location: ED.MAIN Accession/Order Number: [id number] Exam Date: 01/13/2023 09:40 Report Date: 01/13/2023 10:51 At the request of: PHUONG SUAREZ Procedure: XR knee RT 3V RIGHT KNEE X-RAY 3 VIEWS AND X-RAY RIGHT TIBIAS/FIBULA 2 VIEWS HISTORY: Pain. COMPARISON: None. FINDINGS: There is depression of the right lateral tibial plateau. There is a fat/fluid level in the suprapatellar knee joint. There is no definite evidence for dislocation. The patella appears intact. XR/XR knee RT 3V IMPRESSION: Acute depressed right lateral tibial plateau fracture. Recommend orthopedic consult. Electronically authenticated by: KENRICK DIAZ Date: 01/13/2023 10:51
--- NOTE | 2023-01-13 09:28 | XR_ITS ---
The [address] [address] Patient Name: TYRESE GUTIERRES MRN: [id number] date: 1955 Sex: F Assigned Patient Location: ER Current Patient Location: ER Accession/Order Number: [id number] Exam Date: 01/13/2023 09:40 Report Date: 01/13/2023 10:59 At the request of: PHUONG SUAREZ Procedure: XR foot RT 2V RIGHT FOOT X-RAY THREE VIEWS HISTORY: Pain. COMPARISON: None. FINDINGS: The bones are osteopenic. There is no acute displaced fracture. There are no destructive bone lesions. There are no significant degenerative changes. XR/XR foot RT 2V IMPRESSION: Osteopenia, no acute displaced fracture. Electronically authenticated by: KENRICK DIAZ Date: 01/13/2023 10:59
--- NOTE | 2023-01-13 09:28 | XR_ITS ---
[address] [address] Patient Name: TYRESE GUTIERRES MRN: [id number] date: 1955 Sex: F Assigned Patient Location: ER Current Patient Location: ED.MAIN Accession/Order Number: [id number] Exam Date: 01/13/2023 09:40 Report Date: 01/13/2023 10:51 At the request of: PHUONG SUAREZ Procedure: XR tibia fibula RT 2V RIGHT KNEE X-RAY 3 VIEWS AND X-RAY RIGHT TIBIAS/FIBULA 2 VIEWS HISTORY: Pain. COMPARISON: None. FINDINGS: There is depression of the right lateral tibial plateau. There is a fat/fluid level in the suprapatellar knee joint. There is no definite evidence for dislocation. The patella appears intact. XR/XR tibia fibula RT 2V IMPRESSION: Acute depressed right lateral tibial plateau fracture. Recommend orthopedic consult. Electronically authenticated by: KENRICK DIAZ Date: 01/13/2023 10:51
--- NOTE | 2023-01-13 09:28 | CT_ITS ---
The [address] [address] Patient Name: TYRESE GUTIERRES MRN: [id number] date: 1955 Sex: F Assigned Patient Location: ER Current Patient Location: ER Accession/Order Number: [id number] Exam Date: 01/13/2023 09:40 Report Date: 01/13/2023 11:05 At the request of: PHUONG SUAREZ Procedure: CT abdomen pelvis wo con CT ABDOMEN AND PELVIS WITHOUT CONTRAST HISTORY: Abdominal pain. COMPARISON: CT 01/06/2022. METHOD: Dose reduction techniques were achieved by using automated exposure control and/or adjustment of mA and/or kV according to patient size and/or use of iterative reconstruction technique. FINDINGS: The lung bases are clear. The evaluation of solid organs is limited with no IV contrast. The evaluation for lymphadenopathy is very limited with no IV contrast. There is no intrahepatic biliary ductal dilatation. The spleen is normal in size. The adrenal glands are normal appearing. There is a large hiatal hernia. There are no renal stones or hydronephrosis. There are scattered diverticula. There is no bowel wall thickening or obstruction. There is no free fluid or free air. There are old L2 and L5 compression fractures. There are old T11 and T12 compression fractures. CT/CT abdomen pelvis wo con IMPRESSION: No acute abnormality abdomen or pelvis. Large hiatal hernia. Electronically authenticated by: KENRICK DIAZ Date: 01/13/2023 11:05
--- NOTE | 2023-01-13 09:33 | PC.NURSE ---
Pt O2 dropped down to 88% on RA. pt reports hx of COPD and uses home O2 as needed. pt Placed on 2L of O2 per NC. Pt sat up to 92%
[2023-01-13 09:42] LABS: Basophils Percent Auto 0.4 % (0.2-2.0); Eosinophils Percent Auto 0.4 % (0.9-7.0); Hematocrit 40.2 % (36.0-48.0); Hemoglobin 12.8 g/dL (12.0-16.0); Immature Granulocytes Abs Auto 0.02 10^3/uL (0.00-0.03); Immature Granulocytes Pct Auto 0.3 % (0.0-0.5); Lymphocytes Absolute Auto 0.8 10^3/uL (1.2-3.8); Lymphocytes Percent Auto 10.4 % (20.5-60.0); Mean Corpuscular HGB Conc 31.8 g/dL (29.9-35.2); Mean Corpuscular Hemoglobin 31.4 pg (26.7-34.0); Mean Corpuscular Volume 98.5 fL (81.0-99.0); Mean Platelet Volume 9.8 fL (9.5-13.5); Monocytes Absolute Auto 0.4 10^3/uL (0.3-0.8); Monocytes Percent Auto 4.9 % (1.7-12.0); Neutrophils Absolute Auto 6.6 10^3/uL (1.4-6.5); Neutrophils Percent Auto 83.6 % (43.0-75.0); Platelet Count 157 10^3/uL (150-450); Red Blood Count 4.08 10^6/uL (4.20-5.40); Red Cell Distribution Width 12.6 % (11.0-15.0); White Blood Count 7.9 10^3/uL (4.0-11.0)
[2023-01-13 09:51] LABS: Alanine Aminotransferase 19 U/L (14-59); Albumin Globulin Ratio 0.9; Albumin Level 3.4 g/dL (3.4-5.0); Alkaline Phosphatase 76 U/L (46-116); Anion Gap 11.1; Aspartate Amino Transferase 15 U/L (15-37); BUN Creatinine Ratio 24.2; Bilirubin Total 0.5 mg/dL (0.2-1.0); Calcium 8.6 mg/dL (8.5-10.1); Carbon Dioxide 29.9 mmol/L (21.0-32.0); Chloride 104 mmol/L (98-107); Creatine Kinase 52 U/L (26-192); Estimated GFR (African America >60 (>=60); Estimated GFR (Non-African Ame >60 (>=60); Globulin 3.6 g/dL; Glucose 129 mg/dL (74-106); Sodium 141 mmol/L (136-145)
[2023-01-13 12:04] LABS: Bilirubin Urine NEGATIVE (NEGATIVE); Blood Urine NEGATIVE (NEGATIVE); Clarity Urine CLEAR (CLEAR); Color Urine YELLOW (YELLOW); Glucose Urine UA NEGATIVE (NEGATIVE); Ketones Urine TRACE mg/dL (NEGATIVE); Leukocyte Esterase Urine NEGATIVE (NEGATIVE); Nitrite Urine NEGATIVE (NEGATIVE); Protein Urine NEGATIVE (NEG/TRACE); Urobilinogen Urine 0.2 EU/dL (0.2-1.0)
[2023-01-13 12:07] LABS: Urine Microscopic Indicated NO
--- NOTE | 2023-01-13 13:23 | ED.FALL1 ---
HPI - Fall General Chief Complaint: Fall Stated Complaint: fall Time Seen by Provider: 01/13/23 09:18 Source: patient Mode of arrival: ambulance History of Present Illness HPI Narrative: The patient had already have a history of fracture to her right tibia almost 2 months ago apparently was using her walker to go to the bathroom when she slipped and fell forward hitting her right knee the patient came to us by the EMS after she received fentanyl because of severe pain to her right knee she also has been complaining of back pain that is increased to her baseline the patient initially also mentioned some frequency of urination and right foot pain No nausea no vomiting no abdominal pain no chest pain and no loss of consciousness or head injury Related Data Home Medications Medication Instructions Recorded Confirmed albuterol sulfate 90 mcg/actuation 2 inh inhalation Q4H PRN shortness 09/06/22 11/13/22 aerosol inhaler of breath or wheezing alprazolam 0.5 mg tablet 0.5 mg PO TID 09/06/22 11/13/22 dicyclomine 20 mg tablet 20 mg PO QID 09/06/22 11/13/22 fluticasone propionate 115 2 puff inhalation Q12H 09/06/22 11/13/22 mcg-salmeterol 21 mcg/actuation HFA inhaler (Advair HFA) hydrocodone 5 mg-acetaminophen 325 1 tab PO Q6H PRN pain 09/06/22 11/14/22 mg tablet hydroxyzine HCl 25 mg tablet 25 mg PO BEDTIME PRN itching 09/06/22 11/13/22 naloxegol 12.5 mg tablet (Movantik) 12.5 mg PO DAILY 09/06/22 11/13/22 pantoprazole 40 mg tablet,delayed 40 mg PO DAILY 09/06/22 11/13/22 release pregabalin 75 mg capsule 75 mg PO BID 09/06/22 11/13/22 trazodone 50 mg tablet 50 mg PO BEDTIME PRN sleep 09/06/22 11/14/22 linaclotide 290 mcg capsule 290 mcg PO BID 09/19/22 11/13/22 (Linzess) escitalopram oxalate 5 mg tablet 5 mg PO DAILY 11/13/22 11/13/22 (Lexapro) Previous Rx's Medication Instructions Recorded oxycodone-acetaminophen 10 mg-325 1 tab PO Q4H PRN pain 7 days #42 11/16/22 mg tablet tabs Allergies Allergy/AdvReac Type Severity Reaction Status Date / Time sulfamethoxazole Allergy Mild Diarrhea Verified 11/13/22 18:22 [From Bactrim] trimethoprim [From Bactrim] Allergy Mild Diarrhea Verified 11/13/22 18:22 ketorolac [From Toradol] Allergy Verified 11/13/22 18:22 NSAIDS (Non-Steroidal Allergy Verified 11/13/22 18:22 Anti-Inflamma rofecoxib [From Vioxx] Allergy Verified 11/13/22 18:22 varenicline [From Chantix] Allergy Verified 11/13/22 18:22 Review of Systems ROS Status of ROS 10 or more systems reviewed and unremarkable except as noted in history and below [facility] Medical History (Updated 01/13/23 @ 13:27 by Swapna Solorzano MD) Acid reflux ?K21.9 - Gastro-esophageal reflux disease without esophagitis (ICD-10) Angina at rest ?I20.8 - Other forms of angina pectoris (ICD-10) Anxiety ?F41.9 - Anxiety disorder, unspecified (ICD-10) Cervical spondylosis ?M47.812 - Spondylosis without myelopathy or radiculopathy, cervical region (ICD-10) Chronic bronchitis with productive mucopurulent cough ?J41.1 - Mucopurulent chronic bronchitis (ICD-10) Chronic cough ?R05.3 - Chronic cough (ICD-10) Compression fracture of lumbar vertebra with routine healing ?S32.000D - Wedge compression fracture of unspecified lumbar vertebra, subsequent encounter for fracture with routine healing (ICD-10) Compression fracture of thoracic vertebra with routine healing ?S22.000D - Wedge compression fracture of unspecified thoracic vertebra, subsequent encounter for fracture with routine healing (ICD-10) COPD (chronic obstructive pulmonary disease) ?J44.9 - Chronic obstructive pulmonary disease, unspecified (ICD-10) COPD (chronic obstructive pulmonary disease) ?J44.9 - Chronic obstructive pulmonary disease, unspecified (ICD-10) Diverticulitis ?K57.92 - Diverticulitis of intestine, part unspecified, without perforation or abscess without bleeding (ICD-10) Dyslipidemia ?E78.5 - Hyperlipidemia, unspecified (ICD-10) Emphysema lung ?J43.9 - Emphysema, unspecified (ICD-10) Former smoker ?Z87.891 - Personal history of nicotine dependence (ICD-10) GI bleed ?K92.2 - Gastrointestinal hemorrhage, unspecified (ICD-10) Hepatitis ?K75.9 - Inflammatory liver disease, unspecified (ICD-10) Hiatal hernia ?K44.9 - Diaphragmatic hernia without obstruction or gangrene (ICD-10) Hypoxia ?R09.02 - Hypoxemia (ICD-10) Irritable bowel ?K58.9 - Irritable bowel syndrome without diarrhea (ICD-10) Low back pain ?M54.50 - Low back pain, unspecified (ICD-10) Lumbar spondylosis ?M47.816 - Spondylosis without myelopathy or radiculopathy, lumbar region (ICD-10) Neck pain ?M54.2 - Cervicalgia (ICD-10) Osteoarthritis ?M19.90 - Unspecified osteoarthritis, unspecified site (ICD-10) Osteoporosis ?M81.0 - Age-related osteoporosis without current pathological fracture (ICD-10) Pneumothorax ?J93.9 - Pneumothorax, unspecified (ICD-10) Thoracic spondylosis ?M47.814 - Spondylosis without myelopathy or radiculopathy, thoracic region (ICD-10) TIA (transient ischemic attack) ?G45.9 - Transient cerebral ischemic attack, unspecified (ICD-10) Ulcerative colitis ?K51.90 - Ulcerative colitis, unspecified, without complications (ICD-10) Upper back pain ?M54.9 - Dorsalgia, unspecified (ICD-10) Venous insufficiency ?I87.2 - Venous insufficiency (chronic) (peripheral) (ICD-10) Surgical History H/O carpal tunnel repair ?Z98.890 - Other specified postprocedural states (ICD-10) H/O kyphoplasty ?Z98.890 - Other specified postprocedural states (ICD-10) History of hysterectomy ?Z90.710 - Acquired absence of both cervix and uterus (ICD-10) Social History (Updated 11/13/22 @ 18:18 by Kesha Joy) Within the past year, how often did you have a drink containing alcohol: never Score interpretation: A score less than 3 is consistent with normal alcohol consumption. Smoking status: Current every day smoker Non-prescribed substance use: cannabis (any form) Exam Narrative Exam Narrative: Nurses notes and vital signs reviewed and patient is not hypoxic. General: Well-appearing and in no apparent distress. Skin: Warm, dry, no pallor noted. No rash. Head: Normocephalic, atraumatic. Neck: Supple, non-tender. Eye: Pupils are equal, round and EOMI. No scleral icterus. Ears, Nose, Mouth, and Throat: TM are clear, no nasal mucosal hypertrophy. Oral mucosa is moist, no posterior oropharynx erythema, uvula is mid-line Cardiovascular: Regular Rate and Rhythm without murmur, gallop or rub. Respiratory: No accessory muscle use or respiratory distress. Lungs are clear to auscultation, no wheezing, rales or rhonchi Chest Wall: no tenderness Back: Lower lumbar spine level intervertebral line tenderness. Musculoskeletal: normal ROM, no calf or popliteal tenderness, no lower extremity edema/swelling, brace placed on the right knee with tenderness on palpation but there is no deformity and the patient also had tenderness upon palpation of the medial aspect of the right foot just by the right big toe at the first metatarsal bone there was no contusion or any edema GI: Abdomen is soft, non-distended. Normal bowel sounds. No masses appreciated. No tenderness to palpation. No rebound, guarding, or rigidity noted. Neurological: A&O x4. No cranial nerve dysfunction observed. No truncal ataxia. Moves all extremities. Sensation intact. Psychiatric: Cooperative and interactive. Normal mood and affect. Constitutional Vital Signs, click to edit/add: Last Vital Signs Temp 97.7 F 01/13/23 09:18 Pulse 79 01/13/23 09:18 Resp 18 01/13/23 09:18 BP 139/89 01/13/23 09:18 Pulse Ox 88 L 01/13/23 09:33 O2 Del Method Room Air 01/13/23 09:33 Course Course Hospital Course: It was a did that the patient presented to us with 2 main injuries the back as well as the right leg although she did mention that she already had a fracture in her right knee with no plan for surgery she was nonweightbearing using her walker The patient does live alone and she was not able to get out of the floor after she fell down because of the pain The patient CBC chemistry showed no acute significant pathology urinalysis as well CAT scan of the abdomen obtained because the patient was complaining of flank pain initially and the CT lumbar spine shows multiple old and new compression fracture the patient have no neurological symptoms associated with those fractures The patient also had x-ray of the right foot showing no acute pathology The initial plan was to discharge the patient but she was not able to get out of the bed with no help and since the patient lives alone I will admit her for observation to make sure that she have a safe discharge after physical therapy The patient case also discussed with Dr. Ward the orthopedic surgery taking care of the patient and after reviewing the x-ray the patient to be nonweightbearing and follow-up with him as outpatient The patient case was discussed with Dr. Baker and he agreed and the above-mentioned plan Vital Signs Vital signs: Vital Signs Temperature 97.7 F 01/13/23 09:18 Pulse Rate 79 01/13/23 09:18 Respiratory Rate 18 01/13/23 09:18 Blood Pressure 139/89 01/13/23 09:18 Pulse Oximetry 91 L 01/13/23 09:18 Oxygen Delivery Method Room Air 01/13/23 09:18 Temperature 97.7 F 01/13/23 09:18 Pulse Rate 79 01/13/23 09:18 Respiratory Rate 18 01/13/23 09:18 Blood Pressure 139/89 01/13/23 09:18 Pulse Oximetry 88 L 01/13/23 09:33 Oxygen Delivery Method Room Air 01/13/23 09:33 MDM - Fall Lab Data Labs: Lab Results 01/13/23 01/13/23 Range/Units 09:29 11:52 WBC 7.9 (4.0-11.0) 10^3/uL RBC 4.08 L (4.20-5.40) 10^6/uL Hgb 12.8 (12.0-16.0) g/dL Hct 40.2 (36.0-48.0) % MCV 98.5 (81.0-99.0) fL MCH 31.4 (26.7-34.0) pg MCHC 31.8 (29.9-35.2) g/dL RDW 12.6 (11.0-15.0) % Plt Count 157 (150-450) 10^3/uL MPV 9.8 (9.5-13.5) fL Neut % (Auto) 83.6 H (43.0-75.0) % Lymph % (Auto) 10.4 L (20.5-60.0) % [place] % (Auto) 4.9 (1.7-12.0) % Eos % (Auto) 0.4 L (0.9-7.0) % Baso % (Auto) 0.4 (0.2-2.0) % Neut # (Auto) 6.6 H (1.4-6.5) 10^3/uL Lymph # (Auto) 0.8 L (1.2-3.8) 10^3/uL [place] # (Auto) 0.4 (0.3-0.8) 10^3/uL Eos # (Auto) 0.0 (0.0-0.7) 10^3/uL Baso # (Auto) 0.0 (0.0-0.1) 10^3/uL Abs Immat Gran (auto) 0.02 (0.00-0.03) 10^3/uL Imm/Tot Granulo (auto) 0.3 (0.0-0.5) % Sodium 141 (136-145) mmol/L Potassium 4.0 (3.5-5.1) mmol/L Chloride 104 (98-107) mmol/L Carbon Dioxide 29.9 (21.0-32.0) mmol/L Anion Gap 11.1 BUN 15.0 (7.0-18.0) mg/dL Creatinine 0.62 (0.55-1.02) mg/dL Est GFR ( Amer) >60 (>=60) Est GFR (Non-Af Amer) >60 (>=60) BUN/Creatinine Ratio 24.2 Glucose 129 H (74-106) mg/dL Calcium 8.6 (8.5-10.1) mg/dL Total Bilirubin 0.5 (0.2-1.0) mg/dL AST 15 (15-37) U/L ALT 19 (14-59) U/L Alkaline Phosphatase 76 (46-116) U/L Total Creatine Kinase 52 (26-192) U/L Total Protein 7.0 (6.4-8.2) g/dL Albumin 3.4 (3.4-5.0) g/dL Globulin 3.6 g/dL Albumin/Globulin Ratio 0.9 Urine Color Yellow (YELLOW) Urine Clarity Clear (CLEAR) Urine pH 7.0 (5.0-9.0) Ur Specific [place] 1.020 (1.005-1.025) Urine Protein Negative (NEG/TRACE) mg/dL Urine Glucose (UA) Negative (NEGATIVE) mg/dL Urine Ketones Trace A (NEGATIVE) mg/dL Urine Occult Blood Negative (NEGATIVE) Urine Nitrite Negative (NEGATIVE) Urine Bilirubin Negative (NEGATIVE) Urine Urobilinogen 0.2 (0.2-1.0) EU/dL Ur Leukocyte Esterase Negative (NEGATIVE) Discharge Plan Discharge Chief Complaint: Fall Clinical Impression: Compression fracture, Fracture, tibia, Fall Patient Disposition: Admitted as Observation Time of Disposition Decision: 12:14 Condition: Good
--- NOTE | 2023-01-13 15:19 | P.HP_ITS ---
H&P: HPI History of Present Illness Chief complaint: Fall Narrative: 67 y o female was walking with the help of a walker and fell at home. She fell on her right knee, and passed out briefly. She could not move/get up and did not get any help for 6 hours until finally she was able to call a relative and 911. She was brought over to ED via EMS. W/u indicated old thoracic and lumbar compression fractures. She is already dealing with right tibial fracture. She lives alone and is unable to ambulate due to pain from recent fall. Admitted for pain control, PT/OT eval and orthopedic evaluation Currently reports 10/10 pain, can't move her right LE at all. Review of Systems ROS Status of ROS 10 or more systems reviewed and unremarkable except as noted in history and below [facility] Medical History (Updated 01/13/23 @ 15:27 by Shaikh Samuel MD) Acid reflux ?K21.9 - Gastro-esophageal reflux disease without esophagitis (ICD-10) Angina at rest ?I20.8 - Other forms of angina pectoris (ICD-10) Anxiety ?F41.9 - Anxiety disorder, unspecified (ICD-10) Cervical spondylosis ?M47.812 - Spondylosis without myelopathy or radiculopathy, cervical region (ICD-10) Chronic bronchitis with productive mucopurulent cough ?J41.1 - Mucopurulent chronic bronchitis (ICD-10) Chronic cough ?R05.3 - Chronic cough (ICD-10) Compression fracture of lumbar vertebra with routine healing ?S32.000D - Wedge compression fracture of unspecified lumbar vertebra, subsequent encounter for fracture with routine healing (ICD-10) Compression fracture of thoracic vertebra with routine healing ?S22.000D - Wedge compression fracture of unspecified thoracic vertebra, subsequent encounter for fracture with routine healing (ICD-10) COPD (chronic obstructive pulmonary disease) ?J44.9 - Chronic obstructive pulmonary disease, unspecified (ICD-10) COPD (chronic obstructive pulmonary disease) ?J44.9 - Chronic obstructive pulmonary disease, unspecified (ICD-10) Diverticulitis ?K57.92 - Diverticulitis of intestine, part unspecified, without perforation or abscess without bleeding (ICD-10) Dyslipidemia ?E78.5 - Hyperlipidemia, unspecified (ICD-10) Emphysema lung ?J43.9 - Emphysema, unspecified (ICD-10) Former smoker ?Z87.891 - Personal history of nicotine dependence (ICD-10) GI bleed ?K92.2 - Gastrointestinal hemorrhage, unspecified (ICD-10) Hepatitis ?K75.9 - Inflammatory liver disease, unspecified (ICD-10) Hiatal hernia ?K44.9 - Diaphragmatic hernia without obstruction or gangrene (ICD-10) Hypoxia ?R09.02 - Hypoxemia (ICD-10) Irritable bowel ?K58.9 - Irritable bowel syndrome without diarrhea (ICD-10) Low back pain ?M54.50 - Low back pain, unspecified (ICD-10) Lumbar spondylosis ?M47.816 - Spondylosis without myelopathy or radiculopathy, lumbar region (ICD-10) Neck pain ?M54.2 - Cervicalgia (ICD-10) Osteoarthritis ?M19.90 - Unspecified osteoarthritis, unspecified site (ICD-10) Osteoporosis ?M81.0 - Age-related osteoporosis without current pathological fracture (ICD- 10) Pneumothorax ?J93.9 - Pneumothorax, unspecified (ICD-10) Thoracic spondylosis ?M47.814 - Spondylosis without myelopathy or radiculopathy, thoracic region (ICD-10) TIA (transient ischemic attack) ?G45.9 - Transient cerebral ischemic attack, unspecified (ICD-10) Ulcerative colitis ?K51.90 - Ulcerative colitis, unspecified, without complications (ICD-10) Upper back pain ?M54.9 - Dorsalgia, unspecified (ICD-10) Venous insufficiency ?I87.2 - Venous insufficiency (chronic) (peripheral) (ICD-10) Surgical History H/O carpal tunnel repair ?Z98.890 - Other specified postprocedural states (ICD-10) H/O kyphoplasty ?Z98.890 - Other specified postprocedural states (ICD-10) History of hysterectomy ?Z90.710 - Acquired absence of both cervix and uterus (ICD-10) Family History (Updated 01/13/23 @ 14:30 by Alycia Alan) Mother Family history of CHF (congestive heart failure) Family history of COPD (chronic obstructive pulmonary disease) Family history of diabetes mellitus Family history of stroke Grandmother Family history of cancer Family history of diabetes mellitus Social History (Updated 01/13/23 @ 14:31 by Alycia Alan) Within the past year, how often did you have a drink containing alcohol: never Within the past year, how many standard drinks containing alcohol did you have on a typical day: 1 or 2 Within the past year, how often did you have six or more drinks on one occasion: never Total score: 0 Score interpretation: A score less than 3 is consistent with normal alcohol consumption. Smoking status: Former smoker Non-prescribed substance use: denies use Previous occupational history: retired Highest level of school completed/degree received: high school graduate Are you now , , , , never or living with a partner: In a typical week, how many times do you talk on the telephone with family, friends, or neighbors: 3 or more times per week How often do you get together with friends or relatives: 3 or more times per week How often do you attend judaism or adventist services: never Do you belong to any clubs or organizations such as judaism groups unions, [employer] or athletic groups, or school groups: no Total score: 1 Score interpretation: A score of less than or equal to 1 indicates the most socially isolated. Little interest or pleasure in doing things: not at all Feeling down, depressed, or hopeless: not at all Feel stressed/tense/nervous/anxious/difficulty sleeping: not at all Do you think of yourself as: straight/heterosexual Gender Identity: female Meds Home Medications and Allergies Home Medications Medication Instructions Recorded Confirmed Type albuterol sulfate 90 mcg/actuation 2 inh inhalation Q4H PRN shortness 09/06/22 01/13/23 History aerosol inhaler of breath or wheezing alprazolam 0.5 mg tablet 0.5 mg PO TID 09/06/22 01/13/23 History dicyclomine 20 mg tablet 20 mg PO QID 09/06/22 01/13/23 History fluticasone propionate 115 2 puff inhalation Q12H 09/06/22 01/13/23 History mcg-salmeterol 21 mcg/actuation HFA inhaler (Advair HFA) hydrocodone 5 mg-acetaminophen 325 1 tab PO Q6H PRN pain 09/06/22 01/13/23 History mg tablet hydroxyzine HCl 25 mg tablet 25 mg PO BEDTIME PRN itching 09/06/22 01/13/23 History naloxegol 12.5 mg tablet (Movantik) 12.5 mg PO DAILY 09/06/22 01/13/23 History pantoprazole 40 mg tablet,delayed 40 mg PO DAILY 09/06/22 01/13/23 History release trazodone 50 mg tablet 50 mg PO BEDTIME PRN sleep 09/06/22 01/13/23 History linaclotide 290 mcg capsule 290 mcg PO BID 09/19/22 01/13/23 History (Linzess) escitalopram oxalate 10 mg tablet 10 mg PO DAILY 01/13/23 01/13/23 History (Lexapro) pregabalin 150 mg capsule (Lyrica) 150 mg PO BID 01/13/23 01/13/23 History Allergies Allergy/AdvReac Type Severity Reaction Status Date / Time sulfamethoxazole Allergy Mild Diarrhea Verified 11/13/22 18:22 [From Bactrim] trimethoprim [From Bactrim] Allergy Mild Diarrhea Verified 11/13/22 18:22 ketorolac [From Toradol] Allergy Verified 11/13/22 18:22 NSAIDS (Non-Steroidal Allergy Verified 11/13/22 18:22 Anti-Inflamma rofecoxib [From Vioxx] Allergy Verified 11/13/22 18:22 varenicline [From Chantix] Allergy Verified 11/13/22 18:22 Exam Constitutional Vital Signs, click to edit/add: Last Vital Signs Temp 98.2 F 01/13/23 14:32 Pulse 70 01/13/23 14:32 Resp 16 01/13/23 14:32 BP 136/75 01/13/23 14:32 Pulse Ox 90 L 01/13/23 14:32 O2 Del Method Room Air 01/13/23 14:32 Documenting provider has reviewed patient's vital signs: yes Common normals: oriented x3 General appearance: cooperative and in distress HENPA Common normals: normocephalic and head/scalp atraumatic Head and scalp: normocephalic and atraumatic Eye Common normals: conjunctivae normal and no scleral icterus Conjunctiva: conjunctiva(e) normal Respiratory Common normals: normal respiratory effort and clear to auscultation bilaterally Effort & inspection: able to speak in complete sentences Auscultation: clear to auscultation bilaterally Cardio Common normals: regular rate, S1 normal heart sound and S2 normal heart sound Rate: regular rate Heart sounds: S1 normal and S2 normal GI Common normals: Normal to inspection, nondistended, normoactive bowel sounds present, soft to palpation, non-tender and no hepatosplenomegaly Palpation: soft and no hepatosplenomegaly Extremity Other: Right knee immobilizer in place Unable to move right knee/hip due to pain I was barely able to examine her back. No point tenderness. Neuro Common normals: oriented x3, moves all extremities and no focal motor deficits Psych Common normals: mental status grossly normal, denies hallucinations, denies homicidal ideation and denies suicidal ideation Results Labs Labs: Short CBC 01/13/23 Range/Units 09:29 WBC 7.9 (4.0-11.0) 10^3/uL Hgb 12.8 (12.0-16.0) g/dL Hct 40.2 (36.0-48.0) % Plt Count 157 (150-450) 10^3/uL BMP 01/13/23 09:29 Sodium 141 Potassium 4.0 Chloride 104 Carbon Dioxide 29.9 BUN 15.0 Creatinine 0.62 Glucose 129 H Calcium 8.6 Cardiac Enzymes 01/13/23 Range/Units 09:29 Total Creatine Kinase 52 (26-192) U/L Liver Function 01/13/23 Range/Units 09:29 Total Bilirubin 0.5 (0.2-1.0) mg/dL AST 15 (15-37) U/L ALT 19 (14-59) U/L Alkaline Phosphatase 76 (46-116) U/L Albumin 3.4 (3.4-5.0) g/dL Urine 01/13/23 Range/Units 11:52 Urine Color Yellow (YELLOW) Urine Clarity Clear (CLEAR) Urine pH 7.0 (5.0-9.0) Ur Specific [place] 1.020 (1.005-1.025) Urine Protein Negative (NEG/TRACE) mg/dL Urine Glucose (UA) Negative (NEGATIVE) mg/dL Assessment and Plan Assessment and Plan (1) Fall: Qualifiers: Encounter type: subsequent encounter Qualified Code(s): W19.XXXD - Unspecified fall, subsequent encounter (2) COPD (chronic obstructive pulmonary disease): Qualifiers: COPD type: unspecified COPD Qualified Code(s): J44.9 - Chronic obstructive pulmonary disease, unspecified (3) Fracture, tibia: Qualifiers: Encounter type: subsequent encounter Tibia location: proximal Fracture type: closed Fracture morphology: unspecified fracture morphology Laterality: right (4) Compression fracture of lumbar vertebra with routine healing: Qualifiers: Lumbar vertebra fracture level: unspecified lumbar vertebra Qualified Code(s): S32.000D - Wedge compression fracture of unspecified lumbar vertebra, subsequent encounter for fracture with routine healing (5) Compression fracture of thoracic vertebra with routine healing: Qualifiers: Thoracic vertebra fracture level: unspecified thoracic vertebra Qualified Code(s): S22.000D - Wedge compression fracture of unspecified thoracic vertebra, subsequent encounter for fracture with routine healing Plan Mechanical fall at home. Poorly controlled pain, unable to ambualte because of it. PT/OT eval. Conservative management for Tibial fx. Consult Orthopedics for their recs. On combination of oral and IV narcotics. She is also on Lyrica for pain. COPD is stable. Cw Ariana. Duoebs as needed No neurological symptoms. No fecal or bowel incontinence. Compression fx in lumbar and thoracic spine are old and stable. Will order CTH as she passed out briefly and is unsure of head trauma. Right Hip XR to ensure she did not have Hip/pelvic fx.
[2023-01-13] MEDS: BACLOFEN 10 MG TABLET PO ×2 (15:21→21:13)
[2023-01-13] MEDS: ALPRAZOLAM 0.5 MG TABLET PO ×2 (15:21→21:12)
[2023-01-13] MEDS: MORPHINE SULFATE 2 MG/ML SYRINGE IV ×2 (15:21→19:56)
--- NOTE | 2023-01-13 15:31 | XR_ITS ---
The [address] [address] Patient Name: TYRESE GUTIERRES MRN: [id number] date: 1955 Sex: F Assigned Patient Location: [place] Current Patient Location: [place] Accession/Order Number: [id number] Exam Date: 01/13/2023 16:45 Report Date: 01/13/2023 17:38 At the request of: SHAIKH DILLON Procedure: XR hip RT 2V w/ pelvis EXAM: XR hip RT 2V w/ pelvis HISTORY: Fall COMPARISON: None. TECHNIQUE: AP pelvis and 2 views of the right hip FINDINGS: IMPRESSION: No visualized fracture, dislocation, subluxation or osseous lesion. The hip joints, pubic symphysis and sacroiliac joints are unremarkable. The bowel gas pattern is nonobstructed. Electronically authenticated by: JANNA GHOSH Date: 01/13/2023 17:38
--- NOTE | 2023-01-13 15:31 | CT_ITS ---
The [address] [address] Patient Name: TYRESE GUTIERRES MRN: [id number] date: 1955 Sex: F Assigned Patient Location: [place] Current Patient Location: [place] Accession/Order Number: [id number] Exam Date: 01/13/2023 16:45 Report Date: 01/13/2023 18:17 At the request of: SHAIKH DILLON Procedure: CT head/brain wo con EXAM: CT head/brain wo con HISTORY: Syncope, head trauma COMPARISON: None. TECHNIQUE: Axial CT scans through the head were obtained without IV contrast administration. Dose reduction techniques were achieved by using: automated exposure control and/or adjustment of mA and /or kV according to patient size and/or use of iterative reconstruction technique. FINDINGS: Exam is distorted secondary to motion artifact. Findings are made within these confines. There is no evidence of acute intracranial hemorrhage or abnormal extra-axial fluid collection. No mass effect or midline shift is seen. There is no evidence of large acute territorial infarction. There is no hydrocephalus. Mild enlarged cortical sulci, consistent with age appropriate cerebral atrophy. To the limit of CT, the posterior fossa appears unremarkable. No definite acute fracture is identified. Soft tissues are unremarkable. The visualized orbits show no abnormal mass. There is air-fluid level within the partially visualized right maxillary sinus and mild opacifications of partially visualized bilateral posterior ethmoid air cells and left maxillary sinus. Mastoid air cells are clear. CT/CT head/brain wo con IMPRESSION: Within the limitation of motion artifact, no acute intracranial abnormalities identified. If there is sufficient clinical concern for acute brain parenchymal pathology, consider MRI for further evaluation. Incidental note of air-fluid level within the partially visualized right maxillary sinus. Correlate clinically for acute sinusitis. CT facial bone is recommended if there is suspicion of right orbital floor fracture. Electronically authenticated by: KI BOYD Date: 01/13/2023 18:17
[2023-01-13] MEDS: BUDESONIDE 0.5 MG/2 ML AMPULE NEB IH (20:14)
[2023-01-13] MEDS: ALBUTEROL SULFATE 2.5 MG/3 ML VIAL NEB IH (20:14)
[2023-01-13] MEDS: DICYCLOMINE HCL 10 MG CAPSULE 20 MG PO (21:12)
[2023-01-13] MEDS: ENOXAPARIN SODIUM 40 MG/0.4 ML SYRINGE SUBQ (21:12)
[2023-01-13] MEDS: LIDOCAINE 5% PATCH 1 PATCH TOPICAL (21:13)
[2023-01-13] MEDS: PREGABALIN 75 MG CAPSULE 150 MG PO (21:13)
[2023-01-14] MEDS: MORPHINE SULFATE 2 MG/ML SYRINGE IV (01:52)
[2023-01-14 04:27] VITALS: PULSE 61; O2SAT 100
[2023-01-14] MEDS: ALBUTEROL SULFATE 2.5 MG/3 ML VIAL NEB IH ×2 (04:27→10:03)
[2023-01-14 04:39] VITALS: PULSE 71; RESP 18; O2SAT 94
[2023-01-14 05:48] VITALS: BP 121/71; PULSE 74; RESP 18; TEMP 36.7; O2SAT 94
[2023-01-14] MEDS: DICYCLOMINE HCL 10 MG CAPSULE 20 MG PO (06:03)
[2023-01-14] MEDS: ALPRAZOLAM 0.5 MG TABLET PO (06:03)
[2023-01-14] MEDS: BACLOFEN 10 MG TABLET PO (06:03)
[2023-01-14] MEDS: OMEPRAZOLE 40 MG CAPSULE.DR PO (06:03)
[2023-01-14] MEDS: ESCITALOPRAM 10 MG TABLET PO (08:49)
[2023-01-14] MEDS: ACETAMINOPHEN 325 MG TABLET 650 MG PO (08:49)
[2023-01-14] MEDS: PREGABALIN 75 MG CAPSULE 150 MG PO (08:49)
[2023-01-14] MEDS: OXYCODONE HCL 5 MG TABLET PO (08:52)
[2023-01-14 10:03] VITALS: PULSE 72; O2SAT 93
[2023-01-14] MEDS: BUDESONIDE 0.5 MG/2 ML AMPULE NEB IH (10:04)
[2023-01-14 10:07] VITALS: O2SAT 93
--- NOTE | 2023-01-14 13:04 | PM.DS1 ---
DS: Providers Provider Date of admission: 01/13/23 14:05 Primary care physician: Yoalnda Chavez MD Consults: 01/13/23 13:22 Consult to Orthopedics Routine Consulting Provider: Paco Ward Reason for consultation: fracture 01/13/23 13:23 Occupational Therapy Eval and Treat Routine Reason for consultation: pain Physical Therapy Eval and Treat Routine Reason for consultation: pain Attending physician on discharge: Shaikh Samuel Discharging clinician: Shaikh Samuel Anticipated date of discharge: 01/14/23 DS: Diagnosis Discharge Diagnosis (1) Fall: Assessment and plan: Mechanical fall. No new fx but worsened pain -right knee. Admitted for pain control. more or less close to her baseline now. Stable for d/c. Qualifiers: Encounter type: subsequent encounter Qualified Code(s): W19.XXXD - Unspecified fall, subsequent encounter (2) COPD (chronic obstructive pulmonary disease): Assessment and plan: Stable. C/w home meds. Qualifiers: COPD type: unspecified COPD Qualified Code(s): J44.9 - Chronic obstructive pulmonary disease, unspecified (3) Fracture, tibia: Assessment and plan: Currently has knee immobilizer in place. Outpatient f/u with Dr Ward. Qualifiers: Encounter type: subsequent encounter Fracture morphology: unspecified fracture morphology Fracture type: closed Laterality: right Tibia location: proximal (4) Compression fracture of lumbar vertebra with routine healing: Assessment and plan: Stable, chronic but cause of considerable and persistent pain. D/w patient to talk to her PCP about pain regimen. Qualifiers: Lumbar vertebra fracture level: unspecified lumbar vertebra Qualified Code(s): S32.000D - Wedge compression fracture of unspecified lumbar vertebra, subsequent encounter for fracture with routine healing (5) Compression fracture of thoracic vertebra with routine healing: Assessment and plan: Stable, chronic but cause of considerable and persistent pain. D/w patient to talk to her PCP about pain regimen. Qualifiers: Thoracic vertebra fracture level: unspecified thoracic vertebra Qualified Code(s): S22.000D - Wedge compression fracture of unspecified thoracic vertebra, subsequent encounter for fracture with routine healing DS: Summary Hospital Course Hospital Course: Patient fell at home, her legs gave out due to chronic back pain. Fell on her knees and was in considerable pain, unable to ambulate afterwards. W/u in ED - unremarkable with no acute changes except for right knee effusion. CTH - no acute finding No new fx. Stable lumbar and thoracic compression fx Patient was adamant that she would not consider rehab placement. Her pain was reasonably controlled today and she was agreeable to go home. Patient was asked to f/u with PCP and orthopedic as outpatient. Status at Discharge Overall status at discharge: patient is back to baseline Time Spent with Patient Time attestation: Total time spent providing and/or coordinating discharge services: Time spent: greater than 30 minutes Exam Constitutional Vital Signs, click to edit/add: Last Vital Signs Temp 98.1 F 01/14/23 05:48 Pulse 72 01/14/23 10:03 Resp 18 01/14/23 05:48 BP 121/71 01/14/23 05:48 Pulse Ox 93 L 01/14/23 10:07 O2 Del Method Nasal Cannula 01/14/23 10:07 O2 Flow Rate 1 01/14/23 05:48 Documenting provider has reviewed patient's vital signs: yes Common normals: oriented x3 General appearance: cooperative HENMT Common normals: normocephalic and head/scalp atraumatic Head and scalp: normocephalic and atraumatic Eye Common normals: conjunctivae normal and no scleral icterus Conjunctiva: conjunctiva(e) normal Respiratory Common normals: normal respiratory effort and clear to auscultation bilaterally Effort & inspection: able to speak in complete sentences Auscultation: clear to auscultation bilaterally Cardio Common normals: regular rate, S1 normal heart sound and S2 normal heart sound Rate: regular rate Heart sounds: S1 normal and S2 normal GI Common normals: Normal to inspection, nondistended, normoactive bowel sounds present, soft to palpation, non-tender and no hepatosplenomegaly Palpation: soft and no hepatosplenomegaly Extremity Other: Right knee immobilizer in place Unable to move right knee/hip due to pain I was barely able to examine her back. No point tenderness. Neuro Common normals: oriented x3, moves all extremities and no focal motor deficits Psych Common normals: mental status grossly normal, denies hallucinations, denies homicidal ideation and denies suicidal ideation Discharge Plan Discharge Disposition: Home, Self-Care Condition: Good Discharge Medications: Continued trazodone 50 mg tablet 50 mg PO BEDTIME PRN (Reason: sleep) hydrocodone-acetaminophen 5-325 mg tablet 1 tab PO Q6H PRN (Reason: pain) alprazolam 0.5 mg tablet 0.5 mg PO TID dicyclomine 20 mg tablet 20 mg PO QID pantoprazole 40 mg tablet,delayed release (DR/EC) 40 mg PO DAILY hydroxyzine HCl 25 mg tablet 25 mg PO BEDTIME PRN (Reason: itching) albuterol sulfate 90 mcg/actuation HFA aerosol inhaler 2 inh INHALATION Q4H PRN (Reason: shortness of breath or wheezing) fluticasone propion-salmeterol [Advair HFA] 115-21 mcg/actuation HFA aerosol inhaler 2 puff INHALATION Q12H Movantik 12.5 mg tablet 12.5 mg PO DAILY Patient Comments: NEEDED Linzess 290 mcg capsule 290 mcg PO BID escitalopram oxalate [Lexapro] 10 mg tablet 10 mg PO DAILY pregabalin [Lyrica] 150 mg capsule 150 mg PO BID Activity: ambulate only with your walker and resume usual activities as tolerated Diet: advance to your usual diet Forms: Portal Instructions Follow Up Appointments: F/u PCP in one week F/u orthopedic in 2 weeks
--- NOTE | 2023-01-15 15:43 | CM.DCFOLLOWU ---
Person spoke with: patient How are you feeling? a lot better since I left the hospital How is your pain? awful, but I had a tele-visit with Dr. Chavez today and she is going to call me something stronger in Did you understand your discharge instructions? Yes Do you have any questions about your discharge instructions? No Were you given any prescriptions at discharge? no Were you able to get your prescriptions filled? n/a Do you understand how to take your medications as ordered? Yes Do you have any questions about your follow up appointment and do you plan to keep your follow up appointment? Had one with Dr. Chavez today and is awaiting a call back from Dr. Ward's office, she did call them today. Is there anything else that you would like to discuss? Pt. mentioned she is current with [facility] and they will be coming out soon and she is getting around well with her walker and wheelchair. Questions/Comments/Concerns/Other:
== END 2023-01-14 13:39 | disposition home or self-care (01) ==
LOC: ER 13:27 → MS 14:28
PROVIDERS: Admitting Provider Internal Medicine; Emergency Provider Emergency Medicine; PCP Family Medicine; Visit Provider Internal Medicine
DX: M25.461 Effusion, right knee (principal); M54.9 Dorsalgia, unspecified; G89.29 Other chronic pain; J44.9 Chronic obstructive pulmonary disease, unspecified; S32.000D Wedge compression fracture of unspecified lumbar vertebra, subsequent encounter for fracture with routine healing; S22.000D Wedge compression fracture of unspecified thoracic vertebra, subsequent encounter for fracture with routine healing; S82.101D Unspecified fracture of upper end of right tibia, subsequent encounter for closed fracture with routine healing; K21.9 Gastro-esophageal reflux disease without esophagitis; F41.9 Anxiety disorder, unspecified; E78.5 Hyperlipidemia, unspecified; J43.9 Emphysema, unspecified; K58.9 Irritable bowel syndrome, unspecified; M47.816 Spondylosis without myelopathy or radiculopathy, lumbar region; M47.814 Spondylosis without myelopathy or radiculopathy, thoracic region; M47.812 Spondylosis without myelopathy or radiculopathy, cervical region; M19.90 Unspecified osteoarthritis, unspecified site; K44.9 Diaphragmatic hernia without obstruction or gangrene; I87.2 Venous insufficiency (chronic) (peripheral); M81.0 Age-related osteoporosis without current pathological fracture; Z86.73 Personal history of transient ischemic attack (TIA), and cerebral infarction without residual deficits; Z87.891 Personal history of nicotine dependence; Z79.899 Other long term (current) drug therapy; W01.10XA Fall on same level from slipping, tripping and stumbling with subsequent striking against unspecified object, initial encounter
CPT/HCPCS: 36415; 70450; 73502; 73562; 73590; 73620; 74176; 80053; 81003; 82550; 85025; 93005; 94640; 94761; 96372; 96374; 96376; 99285; G0378

== ENCOUNTER 2023-02-05 10:25 | Outpatient (OUT) | payer MEDICARE, SELFPAY ==
--- NOTE | 2023-02-05 10:29 | XR_ITS ---
The [address] [address] Patient Name: TYRESE GUTIERRES MRN: [id number] date: 1955 Sex: F Assigned Patient Location: [facility] Current Patient Location: Accession/Order Number: [id number] Exam Date: 02/05/2023 10:37 Report Date: 02/06/2023 07:30 At the request of: CELIA BOATENG Procedure: XR knee RT 4V PROCEDURE: XR knee RT 4V HISTORY: Closed Disp Bicondylar Fracture Of Right Tibia S82.141D COMPARISON: XR knee right 01/01/2023, 01/13/2023 FINDINGS: BONES:Stable appearance of the depressed lateral tibial plateau fracture. No new fracture or articular surface irregularity. SOFT TISSUES:No visible soft tissue swelling. EFFUSION:None visible. OTHER: Negative. XR/XR knee RT 4V IMPRESSION: 1. Stable mildly depressed lateral tibial plateau fracture. Electronically authenticated by: CELIA CORMIER Date: 02/06/2023 07:30
== END 2023-02-05 10:26 | disposition home or self-care (01) ==
LOC: RAD 10:25
PROVIDERS: PCP Family Medicine; Visit Provider Orthopaedic Surgery
DX: S82.141D Displaced bicondylar fracture of right tibia, subsequent encounter for closed fracture with routine healing (principal)
CPT/HCPCS: 73564

== ENCOUNTER 2023-02-23 14:27 | Outpatient (OUT) | payer MEDICARE, SELFPAY ==
--- NOTE | 2023-02-23 14:45 | CT_ITS ---
The [address] [address] Patient Name: TYRESE GUTIERRES MRN: [id number] date: 1955 Sex: F Assigned Patient Location: CT Current Patient Location: CT Accession/Order Number: [id number] Exam Date: 02/23/2023 14:35 Report Date: 02/23/2023 16:35 At the request of: CELIA BOATENG Procedure: CT knee RT wo con EXAM: CT knee RT wo con HISTORY: Fractures COMPARISON: Knee x-rays 02/05/2023 , 01/13/2023, 12/04/2022 and 11/13/2022. Knee CT 11/13/2022 TECHNIQUE: Axial CT imaging is performed. Sagittal and coronal reformatted/reconstructed sequencing was additionally performed. FINDINGS: IMPRESSION: Subacute comminuted lateral displaced impacted intra-articular fracture of the lateral femoral condyle that communicates with the condylar notch. Subacute impacted intra-articular fracture of the lateral tibial plateau with approximately 6.4 mm of depression of the articular surface (sagittal 67 and coronal 69). Moderate knee effusion. The superficial subcutaneous soft tissues are unremarkable. Electronically authenticated by: JANNA GHOSH Date: 02/23/2023 16:35
== END 2023-02-23 14:28 | disposition home or self-care (01) ==
LOC: CT 14:27
PROVIDERS: PCP Family Medicine; Visit Provider Orthopaedic Surgery
DX: S82.141D Displaced bicondylar fracture of right tibia, subsequent encounter for closed fracture with routine healing (principal)
CPT/HCPCS: 73700

== ENCOUNTER 2023-03-20 15:28 | Outpatient (OUT) | payer MEDICARE, SELFPAY ==
--- OUTSIDE RECORDS SUMMARY | 2023-03-20 15:31 | XMS_ITS | CCD ---
Author Name Unknown Address [address] [place] [address] Organization [facility] Care Team Providers Care Customer Consultant Name Role Phone Janna Pina Unavailable Shira Cunningham Unavailable Ambrose Torres Unavailable Kiran Barksdale Unavailable [phone] DO Phani Anthony Primary Care Provider [phone] MD Kiran Barksdale Attending Provider [phone] Phani Anthony Unavailable SHEILA Sanford Attending Provider [phone] Vanessa Sanford Unavailable OANH .SANTA Admitting Unavailable EDMOND, DR COHEN Primary Care Unavailable EDMOND, DR COHEN Consulting Unavailable OANH ., SANTA Attending Unavailable COLUMBA ., AINSLEY Attending Unavailable COLUMBA ., AINSLEY Admitting Unavailable EDMOND, DR COHEN Primary Care Unavailable STEPHANIE DODD Consulting Unavailable COLUMBA ., AINSLEY Consulting Unavailable BRE ., DR KIEL Barrett Attending Unavailable BRE ., DR KIEL Barrett Admitting Unavailable EDMOND, DR COHEN Primary Care Unavailable REGINAY ., DR WALSH Consulting Unavailable BRE ., DR KIEL Barrett Consulting Unavailable GRECHNY ., PAUL BURRELL Consulting UnavailLONI Elizabeth Consulting Unavailable EDMOND, DR COHEN Primary Care Unavailable ZOE ., DR ARCHULETA Attending Unavailable ZOE ., DR ARCHULETA Admitting Unavailable ZOE ., DR ARCHULETA Consulting Unavailable JANNA DHALIWAL Consulting Unavailable EDMOND, DR COHEN Primary Care Unavailable ZOE ., DR ARCHULETA Attending Unavailable JERED, DR JANNA Chavez Consulting Unavailable ZOE ., DR ARCHULETA Admitting Unavailable ZOE ., DR ARCHULETA Consulting Unavailable COLUMBA ., AINSLEY Attending Unavailable COLUMBA ., AINSLEY Admitting Unavailable COLUMBA ., AINSLEY Consulting Unavailable EDMOND, DR COHEN Primary Care Unavailable EDMOND, DR COHEN Admitting Unavailable BALL, DR COHEN Primary Care Unavailable BALL, DR COHEN Consulting Unavailable BALL, DR COHEN Attending Unavailable ZIEBER, DR CELIA Caraballo Consulting Unavailable MISC, DR BELLO Attending Unavailable MISC, DR BELLO Admitting Unavailable BALL, DR COHEN Primary Care Unavailable BALL, DR COHEN Consulting Unavailable MISC, DR BELLO Consulting Unavailable BROWN, JANNA Consulting Unavailable BALL, DR COHEN Admitting Unavailable BALL, DR COHEN Primary Care Unavailable BALL, DR COHEN Consulting Unavailable BALL, DR COHEN Attending Unavailable ZIEBER, DR CELIA Caraballo Consulting Unavailable BALL, DR COHEN Admitting Unavailable BALL, DR COHEN Primary Care Unavailable BALL, DR COHEN Consulting Unavailable BALL, DR COHEN Attending Unavailable KARASIK ., DR QUICK Consulting Unavailabl e KARASIK ., DR QUICK Attending Unavailabl e BALL, DR COHEN Primary Care Unavailable KARASIK ., DR QUICK Admitting Unavailabl e BALL, DR COHEN Attending Unavailable BALL, DR COHEN Admitting Unavailable BALL, DR COHEN Primary Care Unavailable BALL, DR COHEN Consulting Unavailable ZIEBER, DR CELIA Caraballo Consulting Unavailable BALL, DR COHEN Admitting Unavailable BALL, DR COHEN Consulting Unavailable BALL, DR COHEN Attending Unavailable BALL, DR COHEN Primary Care Unavailable KARASIK ., DR QUICK Admitting Unavailabl e KARASIK ., DR QUICK Consulting Unavailabl e KARASIK ., DR QUICK Attending Unavailabl e BALL, DR COHEN Primary Care Unavailable SHAKIRA PINEDA Consulting Unavailable SARA II, LYRIC Consulting Unavailable KARASIK ., DR QUICK Admitting Unavailabl e KARASIK ., DR QUICK Consulting Unavailabl e KARASIK ., DR QUICK Attending Unavailabl e BALL, DR COHEN Primary Care Unavailable MERE, DR WAI Caraballo Attending Unavailable MERE, DR WAI Caraballo Admitting Unavailable MERE, DR WAI Caraballo Consulting Unavailable EDMOND, DR COHEN Primary Care Unavailable SUSANA GIHeydi Consulting Unavailable Yolanda Chavez Unavailable Sandra Flores Unavailable MD Kiran Barksdale Attending Provider MD Yolanda Chavez Primary Care Provider MD Yolanda Chavez Attending Provider [phone] Unavailable Primary Care Provider UnavailPHANI [place] Primary Care Physician [place] RAMOS Attending Unavailable NO FAMILY, PHYSICIAN Primary Care Provider Unava ilable ROBIN FLANNERY Referring Unavailable ROBIN FLANNERY Referring Unavailable ROBIN FLANNERY Attending Unavailable MD Yolanda Chavez Attending Provider [phone] MD Yolanda Chavez Primary Care Provider [phone] ANUSHKA Kim Attending Provider Ana Kim Unavailable Yolanda Chavez Attending Unavailable NO FAMILY, PHYSICIAN Primary Care Unavailable Yolanda Chavez Admitting Unavailable Yolanda Chavez Attending Unavailable Yolanda Chavez Admitting Unavailable Yolanda Chavez Primary Care Unavailable Ana Kim Admitting Unavailable Ana Kim Attending Unavailable Vanessa Sanford Admitting Unavailable Vanessa Sanford Attending Unavailable Kiran Barksdale Attending UnavailYolanda Bradley Primary Care Unavailable Kiran Barksdale Admitting Unavailcaio barrett Allergies Allergy Classification Reported Allergen(s) Allergy Type Date of Onset Reaction(s) Facility (20 sources) cefdinir Drug Allergy frequent watery stools, et thrush [facility] [employer] Other (20 sources) Ketorolac Drug Allergy Unknown, Diarrhea [facility] (20 sources) varenicline Drug Allergy Unknown, Muscle Pain [facility] (20 sources) vioxx, antiinflammatories Propensity to adverse reactions Unknown [employer] [facility]) [facility] [employer] Other (20 sources) Statins Support Drug allergy Unknown [employer]) [facility] [employer] Other (9 sources) varenicline; Translations: [Chantix] Drug Allergy Unknown [facility] (2 sources) Ketorolac Drug Allergy Unknown [employer]) [facility] [employer] Other (20 sources) Sulfamethoxazole / Trimethoprim Drug Allergy Unknown [facility] [employer] Other (7 sources) rofecoxib; Translations: [rofecoxib] Drug Allergy Migraine [facility] (7 sources) NSAIDS (Non-Steroidal Anti-Inflamma; Translations: [NSAIDS (Non-Steroidal Anti-Inflamma] Allergy to substance Diarrhea [facility] (7 sources) Ogmztcb-PQC-YlJ Reductase Inhibitor; Translations: [Cqtknsh-QXX-XiS Reductase Inhibitor] Allergy to substance Diarrhea [facility] (1 source) black walnut pollen extract Drug Allergy [facility] (1 source) cefdinir Drug Allergy [facility] (1 source) Ketorolac Drug Allergy [facility] (1 source) NSAIDs Drug allergy (disorder) [facility] (1 source) rofecoxib Drug Allergy [facility] (1 source) Sulfamethoxazole / Trimethoprim Drug Allergy [facility] (20 sources) Ibuprofen Drug Allergy Unknown [employer] [employer] Other (20 sources) Simvastatin Drug Allergy Unknown [facility] Other (20 sources) zoledronic acid Drug Allergy Comment:Bone pain [facility] Other (5 sources) Allergies Reconciled Propensity to adverse reactions Unknown [facility] Other (20 sources) Toradol *ANALGESICS - ANTI-INFLAMMATORY* Propensity to adverse reactions Unknown [facility] Other (20 sources) Cholesterol Drug allergy Unknown [facility] Other (20 sources) ANTI INFLAMMATORY Propensity to adverse reactions Unknown [facility] Other (5 sources) patient allergy list reviewed by nurse or physicia Propensity to adverse reactions Comment:Done [facility] Other (1 source) Ketorolac Drug Allergy [facility] Repository (1 source) varenicline Drug Allergy [facility] Repository Medications Current Medications Medication Drug Class(es) Dates Sig (Normalized) Sig (Original) acetaminophen 325 mg / HYDROcodone bitartrate 5 mg oral tablet (20 sources) Opioid Agonist Start: 02-20-2023 take 1 tablet by mouth every six hours HYDROcodone-Aceta minophen 5-325 MG take 1 tablet by mouth every 6 hours if needed for 30 days Feb, Active Start: 01-15-2023 take 1 tablet by arlene th every six hours HYDROcodone-Acetaminophen 10-325 MG 1 tablet as needed Orally every 6 hrs for 30 days Jan, Active Start: 12-04-2022 take 1 tablet by arlene th every six hours as needed HYDROcodone-Acetaminophen 5-325 MG 1 tab let Orally every 6 hours, as needed Nov, Active Start: 11-03-2022 take 1 tablet by arlene th every six hours as needed HYDROcodone-Acetaminophen 5-325 MG 1 tab let Orally every 6 hours, as needed for 30 days Oct, Active Start: 10-05-2022 take 1 tablet by arlene th every six hours HYDROcodone-Acetaminophen 5-325 MG 1 tab let as needed Orally every 6 hrs for 30 days p/u 08/10, start 08/12Sep, Active Start: 08-10-2022 take 1 tablet by arlene th every six hours HYDROcodone-Acetaminophen 5-325 MG 1 tab let as needed Orally every 6 hrs for 30 days p/u 08/10, start 08/12Aug, Active Start: 07-12-2022 HYDROcodone-Ac etaminophen 5-325 MG 1 Orally every 6 hrs p/u 07/12, start 07/13July, Active Start: 06-13-2022 HYDROcodone-Ac etaminophen 5-325 MG 1 Orally every 6 hrs for 30 days p/u 05/12, start 05/14Jun, Active Start: 05-12-2022 HYDROcodone-Ac etaminophen 5-325 MG 1 Orally every 6 hrs for 30 days p/u 05/12, start 05/14May, Active Start: 04-13-2022 HYDROcodone-Ac etaminophen 5-325 MG 1 Orally every 6 hrs for 30 days p/u 04/13, start 04/14Apr, Active Start: 01-19-2022 Hydrocodone-Ac etaminophen Active 1 TAB PO As Directed January 19, 2022 12:00am Start: 06-18-2019 End: 07-02-2019 take 1 tablet by mouth every six hours Hydrocodone-Acetaminophen Discontinued 1 TAB PO Q6H 20 5 June 26, 2019 9:50am July 02, 2019 7:26am Start: 05-01-2019 End: 06-18-2019 take 5-325 mg by mouth four times daily Hydrocodone-Acetaminophen Discontinued 5 - 325 MG PO Four times daily 0 May 01, 2019 June 18, 2019 4:31pm Start: 04-18-2019 End: 04-19-2019 take 5-325 mg by mouth four times daily Hydrocodone-Acetaminophen Discontinued 5 - 325 MG PO Four times daily April 18, 2019 12:00am April 19, 2019 8:08am HYDROcodone-Acet aminophen Active ALPRAZolam 0.5 mg oral tablet (20 sources) Benzodiazepine Start: 03-06-2023 take 1 tablet by mouth three times daily ALPRAZolam 0.5 MG take 1 tablet by mouth three times a day for 30 Feb, Active Start: 02-05-2023 take 1 tablet by arlene th three times daily ALPRAZolam 0.5 MG take 1 tablet by mouth three times a day for Jan, Active Start: 01-01-2023 take 1 tablet by arlene th three times daily ALPRAZolam 0.5 MG take 1 tablet by mouth three times a day for 30 Dec, Active Start: 12-04-2022 take 1 tablet by arlene th every eight hours ALPRAZolam 0.5 MG 1 tablet Orally Three Times a Day for 30 days Nov, Active Start: 08-14-2022 take 1 tablet by arlene th every eight hours Xanax 0.5 MG 1 tablet Orally 3 Times A Day for 90 days Aug, Active Start: 06-18-2019 End: 07-02-2019 take 0.5 mg by mouth every six hours Alprazolam Discontinued 0.5 MG PO Q6H 0 June 26, 2019 9:50am July 02, 2019 7:26am Start: 04-18-2019 End: 06-18-2019 take 0.5 mg by mouth once daily Alprazolam Discontinue d 0.5 MG PO Daily 12 19April 19, 2019 8:05am June 18, 2019 4:28pm take 1 tablet by arlene th four times daily Xanax 0.5 MG 1 tablet Orally 4 times daily Active baclofen 20 mg oral tablet (20 sources) gamma-Aminobutyric Acid-ergic Agonist Start: 01-25-2023 take 1 tablet by mouth every six hours for pain Baclofen 20 MG 1 tablet Orally every 6 hours if needed for pain for 30 days Jan, Active Start: 04-18-2019 End: 01-19-2022 take 10 mg by mouth four times daily Baclofen Discontinued 10 MG PO Four times daily 20 June 26, 2019 9:50am July 02, 2019 7:26am take 1 tablet by arlene th every eight hours Baclofen 10 MG 1 tablet with food or milk Orally Three times a day Active Calcium (20 sources) Phosphate Binder, Calcium Calcium + D Acti ve calcium carbonate 1250 mg or al tablet (13 sources) Start: 04-19-2019 End: 07-02-2019 Calcium Carbonate (Oyster Sh ell Calcium 500) 500 mg calcium (1,250 mg) Tablet Active 500 MG PO Daily June 30, 2019 11:00pm take 1 tablet by arlene th every twenty-four hours Oyster Shell Calcium 500 MG 1 tablet Orally Once a day Not-Taking cholecalciferol 0.025 mg oral tablet (12 sources) Vitamin D Start: 07-01-2019 take 2000 [IU] by mouth once daily Cholecalciferol (Vitamin D3) Active 2000 UNIT PO Daily June 30, 2019 11:00pm Start: 04-19-2019 End: 07-02-2019 take 1 tablet by mouth once daily Cholecalciferol (Vitamin D3) (Vitamin D3) 2,000 unit tablet Discontinued 2000 UNIT PO Daily April 19, 2019 12:00am July 02, 2019 7:26am dicyclomine hydrochloride 20 mg oral tablet (20 sources) Anticholinergic Start: 12-07-2020 take 1 tablet by mouth every six hours Dicyclomine HCl 20 MG 1 tablet Orally Four times a day for 30 day(s) NEEDED Nov, Not-Taking Start: 12-07-2020 take 20 mg by mouth three times daily Dicyclomine Active 20 MG PO Three times daily July 04, 2021 11:00pm docusate sodium 100 mg oral capsule (6 sources) Start: 07-01-2019 take 1 capsule by mouth twice daily Docusate Sodium (Dok) 100 mg Capsule Active 100 MG PO Twice daily June 30, 2019 11:00pm escitalopram 10 mg oral tablet (20 sources) Serotonin Reuptake Inhibitor take 1 tablet by mouth every twenty-four hours Escitalopram Oxalate 10 MG 1 tablet Orally Once a day for 30 days Active fluconazole 150 mg oral tablet (20 sources) Azole Antifungal Start: 02-28-2021 take 1 tablet by mouth every twenty-four hours Diflucan 100 MG 1 tablet Orally daily for 3 days Feb, Not-Taking Start: 05-14-2020 take 1 tablet by mouth once Fl uconazole 150 MG 1 tablet Orally once for 1 days Aug, Active hydrOXYzine hydrochloride 25 mg oral tablet (20 sources) Antihistamine Start: 03-10-2022 take 1 tablet by mouth every twenty-four hours hydrOXYzine HCl 25 MG 1 tablet at bedtime as needed Orally Once a day for 30 day(s) Feb, Active ibandronic acid 150 mg oral tablet (3 sources) Bisphosphonate take 1 tablet by mouth once daily Ibandronate Sodium 150 MG 1 tablet 60 minutes before the first food, beverage or medicine of the day with plain water Orally for 30 days Active Iron (20 sources) Iron Active levoFLOXacin 500 mg oral tablet (9 sources) Quinolone Antimicrobial Start: 05-12-2022 take 1 tablet by mouth every twenty-four hours levoFLOXacin 500 MG 1 tablet Orally Once a day for 5 days May, Active linaclotide 0.29 mg oral capsule (20 sources) Guanylate Cyclase-C Agonist take 1 capsule by mouth every twelve hours Linzess 290 MCG 1 capsule twice a day Active take 1 capsule by mouth every tw elve hours Linzess 290 MCG 1 capsule twice a day Active Linzess 290 MCG 1 capsule at least 30 minutes before the first meal of the day on an empty stomach Orally twice daily for 30 days Active mesalamine (20 sources) Aminosalicylate Start: 01-20-2022 take 1.5 g by mouth once daily in the morning Mesalamine Active 1.5 GM PO Every morning January 20, 2022 1:00am Start: 01-20-2022 take 1.5 g by mouth once daily in the morning Mesalamine Active 1.5 GM PO Every morning January 20, 2022 12:00am Start: 07-01-2019 End: 07-05-2021 take 4 tablets by mouth once daily in the morning Mesalamine (Lialda) 1.2 gram Tablet,Delayed Release (Dr/Ec) Discontinued 4.8 GM PO Every morning June 30, 2019 11:00pm July 05, 2021 12:44pm take 4 tablets by mo uth every twenty-four hours Lialda 1.2 GM 4 TABLETS Orally Once a day Active take 2 tablets by mo uth every twenty-four hours Lialda 1.2 GM 2 tablets Orally Once a day Active mirtazapine 45 mg oral tablet (20 sources) Start: 04-24-2022 take 1 tablet by arlene th every twenty-four hours Mirtazapine 45 MG 1 tablet at bedtime Orally Once a day for 30 day(s) Apr, Active Start: 07-01-2019 take 30 mg by mouth at bedtime Mirtazapine Active 30 MG PO Bedtime June 30, 2019 11:00pm Start: 04-18-2019 End: 07-02-2019 take 30 mg by mouth at bedtime Mirtazapine Discontinue d 30 MG PO Bedtime April 18, 2019 12:00am July 02, 2019 7:26am take 1 tablet by arlene th every twenty-four hours Mirtazapine 15 MG 1 tablet at bedtime Orally Once a day Not-Taking Remeron Active Multivitamin preparation (6 sources) Start: 01-19-2022 take 1 tablet by mouth once daily Multivitamin Active 1 TAB PO Daily January 19, 2022 1:00am Start: 01-19-2022 take 1 tablet by arlene th once daily Multivitamin Active 1 TAB PO Daily January 19, 2022 12:00am naloxegol 12.5 mg oral tablet (20 sources) Opioid Antagonist Start: 12-09-2021 take 1 tablet by mouth every twenty-four hours Movantik 12.5 MG 1 tablet in the morning Orally Once a day for 30 day(s) Nov, Active Movantik Active pantoprazole 40 mg delayed release oral tablet (20 sources) Proton Pump Inhibitor Start: 06-13-2021 take 1 tablet by mouth every twenty-four hours Pantoprazole Sodium 40 MG 1 tablet Orally Once a day for 30 days Jun, Active Pantoprazole Sod ium Active plecanatide 3 mg oral tablet (11 sources) Start: 01-02-2022 take 1 tablet by arlene th every twenty-four hours predniSONE 20 mg oral tablet (20 sources) Start: 08-25-2022 predniSONE 20 MG take 2 tabs po daily x 5 days Orally Once a day for 5 Aug, Active Start: 08-03-2022 take 2 tablets by mo [facility] every twenty-four hours predniSONE 20 MG 2 tablets Orally Once a day for 5 days July, Active Start: 05-09-2022 predniSONE 20 MG 2 Orally Once a day for 5 days Apr, Active Start: 04-13-2021 take 1 tablet by arlene th every twelve hours predniSONE 20 MG 1 tablet Orally bid for 5 day(s) Apr, Active Start: 01-20-2021 take 1 tablet by arlene th every twenty-four hours predniSONE 20 MG 1 tablet Orally Once a day for 14 days Jan, Not-Taking Start: 04-19-2019 End: 07-02-2019 take 1 tablet by mouth twice daily, then take 1 tablet by mouth once daily Prednisone Discontinued 10 MG PO As Directed April 19, 2019 12:00am July 02, 2019 7:26am Take 1 tablet twice a day for 3 days then 1 tablet daily predniSONE Not-T aking/PRN predniSONE Not-T aking pregabalin 150 mg oral capsule (20 sources) Start: 12-04-2022 take 1 capsule by mouth twice daily Pregabalin 150 MG take 1 capsule by mouth twice a day for Nov, Active Start: 10-04-2022 take 1 capsule by mo [facility] every twelve hours Lyrica 150 MG 1 capsule Orally Twice a day for 30 days Sep, Active Start: 04-28-2022 take 1 capsule by mo [facility] every twelve hours Lyrica 75 MG 1 capsule Orally Twice a day Apr, Active Pregabalin Activ e Lyrica Active Probiotic (20 sources) Probiotic Active promethazine hydrochloride 25 mg oral tablet (20 sources) Phenothiazine Start: 08-08-2022 take 1 tablet by mouth every twelve hours Promethazine HCl 25 MG 1 tablet as needed Orally every 12 hrs for 30 days July, Active traZODone hydrochloride 50 mg oral tablet (20 sources) Serotonin Reuptake Inhibitor Start: 08-03-2022 take 1 tablet by mouth every twenty-four hours traZODone HCl 50 MG 1 tablet at bedtime as needed Orally Once a day for 30 days July, Active traZODone HCl No t-Taking Trulance 3 MG (18 sources) Start: 01-02-2022 take 1 tablet by mouth once da lauren Completed/Discontinued Medications Medication Drug Class(es) Dates Sig (Normalized) Sig (Original) acetaminophen 500 mg oral tablet (6 sources) Start: 07-01-2019 End: 07-05-2021 take 500 mg by mouth every four hours Acetaminophen Discontinued 500 MG PO Q4H 100 June 30, 2019 11:00pm July 05, 2021 12:43pm [id number] 200 actuat albuterol 0.09 mg/actuat metered dose inhaler (20 sources) beta2-Adrenergic Agonist Start: 04-19-2019 End: 07-02-2019 Albuterol Sulfate (Ventolin Hfa) 90 mcg/actuation HFA aerosol inhaler Discontinued 2 INH INHALATION every 6 to 8 hours April 19, 2019 12:00am July 02, 2019 7:26am Start: 04-18-2019 End: 07-02-2019 take 1 puff(s) by inhalation four times daily Albuterol Sulfate Discontinued 1 PUFF INHALATION Four times daily April 18, 2019 12:00am July 02, 2019 7:26am Albuterol Sulfat e (2.5 MG/3ML) 0.083% 3 mL as needed Inhalation every 6 hrs for 30 days Active Albuterol Sulfat e (2.5 MG/3ML) 0.083% 3 mL as needed Inhalation every 6 hrs for 30 days Active take 1 puff(s) by in halation every four hours as needed Ventolin HFA 108 (90 Base) MCG/ACT 1 puff as needed Inhalation every 4 hrs Active ProAir HFA 108 ( 90 Base) MCG/ACT Inhalation for 16 Not-Taking amylase 703595 unt / lipase 01512 unt / protease [id number] unt delayed release oral capsule (11 sources) Start: 07-05-2021 End: 07-06-2021 take [id number] capsules by mouth once daily Cypyyn-Nlpkjbiq-Xgegopg (Creon) 36,000-114,000- 180,000 unit capsule,delayed release(DR/EC) Discontinued 1 CAP PO Daily July 04, 2021 11:00pm July 06, 2021 6:56am Start: 06-13-2021 take 1 capsule by [facility] three times daily at mealtime Creon [id number] UNIT 1 CAPSULE Orally THREE TIMES A DAY WITH MEALS for 30 days Jun, Active azithromycin 250 mg oral tablet (20 sources) Macrolide Antimicrobial Start: 12-26-2022 Azithromycin 250 MG as directed Orally 2 tabs po today, then 1 tab daily x 4 more days for 5 Dec, Not-Taking/PRN Start: 08-25-2022 Azithromycin 2 50 MG 2 tablet on first day, 1 tablet daily for 4 days Orally daily for 5 Aug, Active Start: 05-09-2022 Azithromycin 2 50 MG as directed Orally daily for 5 days Apr, Active Start: 04-13-2021 Zithromax 250 MG 2 tablet on the first day, then 1 tablet daily for 4 days Orally Once a day for 5 day(s) Apr, Active ciprofloxacin 250 mg oral tablet (20 sources) Quinolone Antimicrobial Start: 11-22-2022 take 1 tablet by mouth every twelve hours Ciprofloxacin HCl 250 MG 1 tablet Orally every 12 hrs for 5 day(s) Nov, Not-Taking/PRN Start: 10-19-2022 Ciloxan 0.3 % 1 application into the lower eyelid of each eye Ophthalmic 4 times a day for 5 days Oct, Active Start: 02-28-2021 take 1 tablet by arlene th every twelve hours Cipro 500 MG 1 tablet Orally every 12 hrs for 7 days Feb, Not-Taking Ciloxan Active citalopram 40 mg oral tablet (1 source) Serotonin Reuptake Inhibitor take 1 tablet by mouth every twenty-four hours Citalopram Hydrobromide 40 MG 1 tablet Orally Once a day Not-Taking clopidogrel 75 mg oral tablet (13 sources) [id number] Platelet Inhibitor Start: 2019 End: 2021 take 75 mg by mouth once daily Clopidogrel Discontinued 75 MG PO Daily June 30, 2019 11:00pm July 05, 2021 12:43pm clotrimazole 10 mg oral lozenge (1 source) Azole Antifungal Start: 2020 Clotrimazole 10 MG 1 sandy Mouth/Throat qid for 10 day(s) May, Not-Taking cyclobenzaprine hydrochloride 10 mg oral tablet (1 source) Muscle Relaxant take 1 tablet by mouth every eight hours Cyclobenzaprine HCl 10 MG 1 tablet Oral Three times a day Not-Taking doxycycline hyclate 100 mg oral tablet (6 sources) Tetracycline-class Drug Start: 2019 End: 2019 take 100 mg by mouth twice daily Doxycycline Hyclate Discontinued 100 MG PO Twice daily 10 5 April 19, 2019 12:00am July 02, 2019 7:26am Fiber (1 source) Fiber - Orally *please review for potential _update for e-prescription and drug interaction check* Not-Taking fluticasone propionate 0.05 mg/actuat metered dose nasal spray (1 source) Corticosteroid Fluticasone Propionate 50 MCG/ACT Nasal for 28 Not-Taking Fluticasone Propion-Salmeterol (20 sources) Corticosteroid, beta2-Adrenergic Agonist Start: 2021 End: 2021 take 1 puff(s) by inhalation once daily Fluticasone Propion-Salmeterol (Advair Hfa) 115-21 mcg/actuation HFA aerosol inhaler Discontinued 1 PUFF INHALATION Daily July 05, 2021 12:00am July 06, 2021 7:57am Start: 07-05-2021 End: 07-06-2021 take 1 puff(s) by inhalation once daily Fluticasone Propion-Salmeterol (Advair Hfa) 115-21 mcg/actuation HFA aerosol inhaler Discontinued 1 PUFF INHALATION Daily July 04, 2021 11:00pm July 06, 2021 6:57am Start: 04-19-2019 End: 07-02-2019 take 1 puff(s) by inhalation twice daily Fluticasone Propion-Salmeterol Active 1 PUFF INHALATION Twice daily 60 June 30, 2019 11:00pm Advair HFA Activ e take 2 puff(s) by in halation twice daily Advair HFA 115-21 MCG/ACT 2 puffs Inhalation Twice a day Active loperamide hydrochloride 2 mg oral capsule (6 sources) Opioid Agonist Start: 07-01-2019 End: 07-05-2021 take 2 mg by mouth twice daily Loperamide Discontinued 2 MG PO Twice daily 14 June 30, 2019 11:00pm July 05, 2021 12:44pm Magnesium (1 source) take 1 capsule by mouth once daily Magnesium 500 MG 1 capsule with a meal Orally daily Not-Taking Mesalamine (Lialda) 1.2 gram tablet,delayed release (DR/EC) (6 sources) Start: 06-26-2019 End: 07-02-2019 take 4 tablets by mouth once daily in the morning Mesalamine (Lialda) 1.2 gram tablet,delayed release (DR/EC) Discontinued 4.8 GM PO Every morning June 26, 2019 2:54pm July 02, 2019 8:26am Start: 06-26-2019 End: 07-02-2019 take 4 tablets by mouth once daily in the morning Mesalamine (Lialda) 1.2 gram tablet,delayed release (DR/EC) Discontinued 4.8 GM PO Every morning June 26, 2019 1:54pm July 02, 2019 7:26am Mesalamine (Lialda) 1.2 gram Tablet,Delayed Release (Dr/Ec) (6 sources) Start: 06-26-2019 End: 06-26-2019 take 4 tablets by mouth once daily Mesalamine (Lialda) 1.2 gram Tablet,Delayed Release (Dr/Ec) Discontinued 4.8 GM PO Daily 360 90 June 26, 2019 12:00am June 26, 2019 2:54pm Start: 06-26-2019 End: 06-26-2019 take 4 tablets by mouth once daily Mesalamine (Lialda) 1.2 gram Tablet,Delayed Release (Dr/Ec) Discontinued 4.8 GM PO Daily 360 90 June 25, 2019 11:00pm June 26, 2019 1:54pm metroNIDAZOLE 500 mg oral tablet (9 sources) Nitroimidazole Antimicrobial Start: 07-01-2019 End: 07-05-2021 take 500 mg by mouth twice daily Metronidazole Discontinued 500 MG PO Twice daily 6 3 June 30, 2019 11:00pm July 05, 2021 12:44pm mupirocin 0.02 mg/mg topical ointment (1 source) RNA Synthetase Inhibitor Antibacterial Mupirocin 2 % apply to affected area twice a day External for 10 Not-Taking omeprazole 20 mg delayed release oral capsule (20 sources) Proton Pump Inhibitor Start: 07-01-2019 End: 07-05-2021 take 20 mg by mouth once daily before breakfast Omeprazole Discontinued 20 MG PO Daily before breakfast June 30, 2019 11:00pm July 05, 2021 12:45pm Start: 04-18-2019 End: 07-02-2019 take 20 mg by mouth once daily Omeprazole Discontinued 20 MG PO Daily April 18, 2019 12:00am July 02, 2019 7:26am take 1 tablet by arlene th once daily Omeprazole 20 MG 1 tablet 30 minutes before morning meal Orally Once a day Active oxyCODONE hydrochloride 5 mg oral tablet (6 sources) Opioid Agonist Start: 07-01-2019 End: 01-19-2022 take 5 mg by mouth every four hours Oxycodone Discontinued 5 MG PO Every 4 hours 20 July 01, 2019 January 19, 2022 1:16pm polysaccharide iron complex 150 mg oral capsule (6 sources) Start: 07-05-2021 End: 01-19-2022 Polysaccharide Iron Complex (Iferex 150) 150 mg iron capsule Discontinued 150 MG PO Daily July 04, 2021 11:00pm January 19, 2022 1:17pm potassium chloride 10 meq extended release oral tablet (12 sources) Start: 06-26-2019 End: 07-06-2021 Potassium Chloride (Klor-Con 10) 10 mEq Tablet Extended Release Discontinued 10 MEQ PO 3x/Day with meals 60 June 30, 2019 11:00pm July 06, 2021 6:56am sucralfate 1000 mg oral tablet (6 sources) Aluminum Complex Start: 01-20-2021 take 1 tablet by mouth every six hours Sucralfate 1 GM 1 TABLET Orally FOUR TIMES A DAY for 30 day(s) Jan, Not-Taking Vitamin B Complex (1 source) Vitamin B Comple x *please review for potential _update for e-prescription and drug interaction check* Not-Taking Vitamin D 400 UNIT (1 source) take 1 tablet by mouth once daily Vitamin D 400 UNIT 1 tablet Orally Once a day *please review for potential _update for e-prescription and drug interaction check* Not-Taking Vitamin D3 1000 (1 source) Vitamin D3 1000 *please review for potential _update for e-prescription and drug interaction check* Not-Taking Problems Active Problems Problem Classification Problem Date Documented Da te Episodic/Chronic Abdominal pain (20 sources) Abdominal pain; Translations: [Unspecified abdominal pain] Onset: 05-07-2017 Resolved: 01-07-2022 Episodic Acute bronchitis (14 sources) Acute bronchitis due to other specified organisms; Translations: [Acute bronchitis] Episodic Administrative/social admission (12 sources) Other reduced mobility; Translations: [Impaired mobility and activities of daily living] 06-26-2019 Episodic Anxiety disorders (20 sources) Generalized anxiety disorder; Translations: [Generalized anxiety disorder] Onset: 02-28-2022 Chronic Calculus of urinary tract (1 source) Personal history of urinary calculi; Translations: [PERSONAL HISTORY OF URINARY CALCULI] Onset: 06-08-2022 Episodic Chronic obstructive pulmonary disease and bronchiectasis (20 sources) Cachexia; Translations: [Chronic obstructive pulmonary disease, unspecified] Onset: 10-08-2017 Resolved: 11-05-2020 04-18-2019 Chronic Chronic obstructive pulmonary disease and bronchiectasis (7 sources) Bronchitis; Translations: [Bronchitis, not specified as acute or chronic] 06-27-2019 Episodic Coagulation and hemorrhagic disorders (20 sources) Petechiae of skin; Translations: [Spontaneous ecchymoses] Onset: 05-29-2022 Episodic Deficiency and other anemia (6 sources) Anemia; Translations: [Anemia, unspecified] 06-27-2019 Episodic Diabetes mellitus without complication (5 sources) Type 2 diabetes mellitus without complication; Translations: [Diabetes mellitus without mention of complication, type II or unspecified type, not stated as uncontrolled] Onset: 03-18-2014 Chronic Diabetes mellitus without complication (16 sources) Impaired fasting glycemia; Translations: [Impaired fasting glucose] Onset: 03-18-2014 Episodic Disorders of lipid metabolism (20 sources) Pure hypercholesterolemia, unspecified; Translations: [Hyperlipidemia] Onset: 03-18-2014 Chronic Diverticulosis and diverticulitis (20 sources) Diverticular disease of colon; Translations: [Diverticulosis of intestine, part unspecified, without perforation or abscess without bleeding] Onset: 06-29-2014 Resolved: 01-07-2022 06-18-2019 Chronic Esophageal disorders (20 sources) Esophageal varices; Translations: [Esophageal varices without bleeding] Onset: 06-13-2021 Resolved: 11-10-2021 Chronic Esophageal disorders (11 sources) Esophageal disorders; Translations: [Gastro-esophageal reflux disease with esophagitis, without bleeding] Fracture of lower limb (5 sources) Other fracture of upper end of right tibia, initial encounter for closed fracture; Translations: [Displaced bicondylar fracture of right tibia, subsequent encounter for closed fracture with routine healing] Episodic Gastrointestinal hemorrhage (15 sources) Hemorrhage of anus and rectum; Translations: [Hemorrhage of rectum and anus] Onset: 11-28-2021 Episodic Genitourinary symptoms and ill-defined conditions (20 sources) Dysuria; Translations: [Personal history of urinary (tract) infections] Onset: 04-14-2022 Episodic Immunizations and screening for infectious disease (20 sources) Contact with and (suspected) exposure to other viral communicable diseases; Translations: [Contact with and (suspected) exposure to infections with a predominantly sexual mode of transmission] Onset: 04-13-2021 Resolved: 09-20-2021 Episodic Inflammation; infection of eye (except that caused by tuberculosis or sexually transmitteddisease) (20 sources) Acute conjunctivitis; Translations: [Unspecified acute conjunctivitis, bilateral] Episodic Menopausal disorders (11 sources) Primary ovarian failure; Translations: [Other primary ovarian failure] Chronic Miscellaneous mental health disorders (20 sources) Primary insomnia; Translations: [Primary insomnia] Onset: 11-14-2016 Chronic Mood disorders (20 sources) Depressive disorder; Translations: [Depression] Onset: 03-18-2014 06-26-2019 Chronic Mycoses (12 sources) Candidiasis of mouth; Translations: [Candidal stomatitis] Resolved: 03-08-2021 Episodic Nausea and vomiting (11 sources) Nausea; Translations: [Nausea] Episodic Noninfectious gastroenteritis (17 sources) Colitis; Translations: [Noninfective gastroenteritis and colitis, unspecified] 06-22-2019 Episodic Nonspecific chest pain (15 sources) Chest pain, unspecified; Translations: [Chest pain] Onset: 02-23-2022 Episodic Nutritional deficiencies (20 sources) Vitamin D deficiency; Translations: [Vitamin D deficiency, unspecified] Chronic Nutritional deficiencies (13 sources) Iron deficiency; Translations: [Iron deficiency] Resolved: 01-07-2022 04-18-2019 Episodic Osteoporosis (20 sources) Senile osteoporosis; Translations: [Age-related osteoporosis without current pathological fracture] Onset: 09-05-2021 Resolved: 09-05-2021 Chronic Other acquired deformities (20 sources) Acquired kyphoscoliosis; Translations: [Scoliosis, unspecified] Chronic Other acquired deformities (10 sources) Acquired spondylolisthesis; Translations: [Spondylolysis, cervical region] Episodic Other acquired deformities (1 source) Spondylolysis, cervical region; Translations: [Spondylolysis, cervical region] Episodic Other aftercare (2 sources) Other predatory animal exterminator (current) drug therapy; Translations: [OTH [facility] CURRENT DRUG THERAPY] Onset: 06-08-2022 Episodic Other aftercare (10 sources) Long-term current use of drug therapy; Translations: [Other prison (current) drug therapy] Episodic Other and ill-defined cerebrovascular disease (15 sources) Cerebral atherosclerosis; Translations: [Cerebral atherosclerosis] Onset: 03-18-2014 Chronic Other and ill-defined cerebrovascular disease (1 source) Cerebral atherosclerosis; Translations: [Cerebral atherosclerosis] Chronic Other circulatory disease (6 sources) History of cerebrovascular accident; Translations: [Personal history of transient ischemic attack (TIA), and cerebral infarction without residual deficits] 06-27-2019 Episodic Other circulatory disease (2 sources) Personal history of transient ischemic attack (TIA), and cerebral infarction without residual deficits; Translations: [PERS HX TIA AND CI NO RESID DEFICIT] Onset: 06-08-2022 Episodic Other circulatory disease (10 sources) History of cerebrovascular accident without residual deficits; Translations: [Personal history of transient ischemic attack (TIA), and cerebral infarction without residual deficits] Episodic Other congenital anomalies (5 sources) Congenital spondylolysis of lumbosacral region; Translations: [Congenital spondylolysis, lumbosacral region] Onset: 01-10-2016 Chronic Other connective tissue disease (20 sources) Fibromyalgia; Translations: [Fibromyalgia] 06-26-2019 Episodic Other connective tissue disease (6 sources) Recurrent falls ; Translations: [Repeated falls] 06-23-2019 Episodic Other connective tissue disease (4 sources) Fibromyalgia; Translations: [FIBROMYALGIA] Onset: 04-25-2022 Episodic Other diseases of veins and lymphatics (20 sources) Peripheral venous insufficiency; Translations: [Venous insufficiency (chronic) (peripheral)] Onset: 11-24-2015 Episodic Other diseases of veins and lymphatics (2 sources) Venous insufficiency (chronic) (peripheral); Translations: [Venous insufficiency (chronic) (peripheral)] Episodic Other disorders of stomach and duodenum (11 sources) Disorder of function of stomach; Translations: [Disease of stomach and duodenum, unspecified] Onset: 07-18-2018 07-06-2021 Episodic Other female genital disorders (5 sources) Polyp of vagina; Translations: [POLYP OF VAGINA] Onset: 04-17-2022 Episodic Other female genital disorders (10 sources) Polyp of vagina; Translations: [Polyp of vagina] Episodic Other fractures (6 sources) Compression fracture of thoracic spine; Translations: [Wedge compression fracture of unspecified thoracic vertebra, initial encounter for closed fracture] 04-19-2019 Episodic Other fractures (2 sources) Collapsed vertebra, not elsewhere classified, site unspecified, initial encounter for fracture; Translations: [COLLAPSED VERT NEC SITE UNS INIT FX] Onset: 09-02-2021 Episodic Other fractures (10 sources) Pathological fracture of vertebra; Translations: [Collapsed vertebra, not elsewhere classified, site unspecified, initial encounter for fracture] Episodic Other fractures (2 sources) Wedge compression fracture of unspecified lumbar vertebra, initial encounter for closed fracture Episodic Other fractures (1 source) Wedge compression fracture of second lumbar vertebra, initial encounter for closed fracture Episodic Other fractures (1 source) Wedge compression fracture of fifth lumbar vertebra, initial encounter for closed fracture Episodic Other fractures (2 sources) Wedge compression fracture of T11-T12 vertebra, initial encounter for closed fracture Episodic Other gastrointestinal disorders (20 sources) Irritable bowel syndrome with diarrhea; Translations: [Irritable bowel syndrome with diarrhea] Chronic Other gastrointestinal disorders (5 sources) Irritable bowel syndrome with diarrhea; Translations: [Irritable bowel syndrome with diarrhea K58.0] Onset: 12-07-2020 Resolved: 06-13-2021 Chronic Other gastrointestinal disorders (10 sources) Irritable bowel syndrome; Translations: [Irritable bowel syndrome without diarrhea] Onset: 03-18-2014 Chronic Other gastrointestinal disorders (1 source) Irritable bowel syndrome without diarrhea; Translations: [Irritable bowel syndrome without diarrhea] Onset: 03-18-2014 Chronic Other gastrointestinal disorders (20 sources) Swollen abdomen; Translations: [Abdominal distension (gaseous)] Episodic Other gastrointestinal disorders (20 sources) Diarrhea; Translations: [Diarrhea, unspecified] Resolved: 01-07-2022 Episodic Other gastrointestinal disorders (20 sources) Constipation; Translations: [Constipation, unspecified] Episodic Other gastrointestinal disorders (3 sources) Constipation, unspecified; Translations: [Constipation] Episodic Other gastrointestinal disorders (1 source) Other specified symptoms and signs involving the digestive system and abdomen Episodic Other injuries and conditions due to external causes (10 sources) Old healed fracture of bone ; Translations: [Personal history of (healed) traumatic fracture] Episodic Other injuries and conditions due to external causes (10 sources) History of fall; Translations: [History of falling] Episodic Other injuries and conditions due to external causes (1 source) Personal history of (healed) traumatic fracture; Translations: [Personal history of (healed) traumatic fracture] Episodic Other injuries and conditions due to external causes (1 source) History of falling; Translations: [History of falling] Episodic Other injuries and conditions due to external causes (5 sources) H/O: vertebral fracture; Translations: [Personal history of (healed) traumatic fracture] Episodic Other lower respiratory disease (1 source) Personal history of pneumonia (recurrent); Translations: [PERSONAL HX OF PNEUMONIA RECURRENT] Onset: 06-08-2022 Episodic Other nervous system disorders (20 sources) Idiopathic peripheral neuropathy; Translations: [Hereditary and idiopathic neuropathy, unspecified] Chronic Other nervous system disorders (3 sources) Hereditary and idiopathic neuropathy, unspecified Onset: 09-05-2021 Resolved: 09-05-2021 Chronic Other nervous system disorders (20 sources) Chronic pain; Translations: [Other chronic pain] Chronic Other nervous system disorders (10 sources) Chronic pain syndrome; Translations: [Chronic pain syndrome] Onset: 10-20-2016 Chronic Other nervous system disorders (5 sources) Hereditary peripheral neuropathy; Translations: [Unspecified hereditary and idiopathic peripheral neuropathy] Onset: 11-24-2015 Chronic Other nervous system disorders (1 source) Chronic pain syndrome; Translations: [Chronic pain syndrome] Onset: 10-20-2016 Chronic Other nervous system disorders (2 sources) Paresthesia of skin; Translations: [PARESTHESIA OF SKIN] Onset: 07-30-2022 Episodic Other nervous system disorders (20 sources) Paresthesia; Translations: [Paresthesia of skin] Episodic Other non-traumatic joint disorders (4 sources) Pain in right hip; Translations: [PAIN IN RIGHT HIP] Onset: 10-20-2021 Episodic Other screening for suspected conditions (not mental disorders or infectious disease) (11 sources) Imaging result abnormal; Translations: [Abnormal findings on diagnostic imaging of other specified body structures] Onset: 07-25-2018 Chronic Other screening for suspected conditions (not mental disorders or infectious disease) (8 sources) Encounter for screening mammogram for malignant neoplasm of breast; Translations: [Encounter for screening for osteoporosis] Onset: 09-19-2017 Episodic Other skin disorders (3 sources) Rash and other nonspecific skin eruption; Translations: [RASH OTH NONSPECIFIC SKIN ERUPTION] Onset: 06-06-2022 Episodic Other upper respiratory disease (1 source) Nasal congestion Episodic Other upper respiratory infections (12 sources) Acute upper respiratory infection, unspecified; Translations: [Acute maxillary sinusitis] Onset: 04-13-2021 Resolved: 04-13-2021 Episodic Paralysis (5 sources) Hemiplegia of dominant side; Translations: [Unspecified hemiplegia affecting dominant side] Onset: 10-02-2014 Chronic Pathological fracture (20 sources) 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; Translations: [Age-related osteoporosis with current pathological fracture, vertebra(e), initial encounter for fracture] 06-23-2019 Episodic Regional enteritis and ulcerative colitis (20 sources) Ulcerative colitis; Translations: [Ulcerative colitis, unspecified, without complications] Onset: 04-17-2018 Resolved: 06-21-2021 Chronic Residual codes; unclassified (20 sources) Tobacco user; Translations: [Tobacco use] Onset: 03-18-2014 06-26-2019 Episodic Residual codes; unclassified (6 sources) Patient encounter status; Translations: [Encounter for prophylactic measures, unspecified] 06-26-2019 Episodic Residual codes; unclassified (1 source) Family history of malignant neoplasm of digestive organs; Translations: [FAM HX MALIG NEOPLASM DIGESTIV ORGN] Onset: 07-23-2022 Episodic Residual codes; unclassified (10 sources) Postmenopausal state; Translations: [Asymptomatic menopausal state] Episodic Residual codes; unclassified (1 source) Tobacco use; Translations: [Tobacco use] Episodic Residual codes; unclassified (1 source) Asymptomatic menopausal state; Translations: [Asymptomatic menopausal state] Episodic Spondylosis; intervertebral disc disorders; other back problems (20 sources) Lumbar spondylosis; Translations: [Spondylosis without myelopathy or radiculopathy, lumbar region] Onset: 09-30-2014 Chronic Spondylosis; intervertebral disc disorders; other back problems (20 sources) Backache; Translations: [Dorsalgia, unspecified] Onset: 10-02-2014 Resolved: 01-07-2022 04-18-2019 Episodic Substance-related disorders (20 sources) Nicotine dependence, cigarettes, uncomplicated; Translations: [Nicotine dependence] Onset: 03-18-2014 Resolved: 09-15-2020 Chronic Unclassified (1 source) PERSONAL HISTORY OF COVID-19; Translations: [PERSONAL HISTORY OF COVID-19] Onset: 06-08-2022 Unclassified (1 source) CONTACT W/AND (SUSP) EXPOS COVID-19; Translations: [CONTACT W/AND (SUSP) EXPOS COVID-19] Onset: 02-28-2022 Unclassified (1 source) LOW BACK PAIN, UNSPECIFIED; Translations: [LOW BACK PAIN, UNSPECIFIED] Onset: 10-24-2021 Unclassified (5 sources) Long-term current use of drug therapy; Translations: [Long-term (current) use of other medications] Onset: 06-26-2016 Unclassified (5 sources) Face, neck, and scalp except eye, abrasion or friction burn, infected; Translations: [Face, neck, and scalp except eye, abrasion or friction burn, infected] Onset: 08-23-2015 Unclassified (1 source) Low back pain, unspecified; Translations: [Low back pain, unspecified] Onset: 02-11-2018 Unclassified (1 source) Personal history of (healed) traumatic fracture; Translations: [Personal history of (healed) traumatic fracture] Onset: 02-27-2023 Past or Other Problems Problem Classification Problem Date Documented Da te Episodic/Chronic Abdominal hernia (1 source) Diaphragmatic hernia without obstruction or gangrene; Translations: [DIAPH HERNIA W/O OBST/GANGRENE] Onset: 02-28-2022 Episodic Acute posthemorrhagic anemia (11 sources) Acute posthemorrhagic anemia; Translations: [Acute posthemorrhagic anemia] Resolved: 12-27-2019 Episodic Anal and rectal conditions (1 source) Other specified diseases of anus and rectum Onset: 01-20-2021 Resolved: 01-20-2021 Episodic Bacterial infection; unspecified site (5 sources) Bacterial infectious disease; Translations: [Bacterial infection, unspecified, in conditions classified elsewhere and of unspecified site] Onset: 03-02-2017 Episodic Diabetes mellitus with complications (11 sources) Hyperglycemia due to type 2 diabetes mellitus; Translations: [Type 2 diabetes mellitus with hyperglycemia] Resolved: 03-01-2022 Chronic Diseases of mouth; excluding dental (11 sources) Disorder of tongue; Translations: [Other diseases of tongue] Onset: 09-19-2017 Episodic E Codes: Fall (1 source) Unspecified fall, initial encounter; Translations: [UNSPECIFIED FALL INITIAL ENCOUNTER] Onset: 10-24-2021 Episodic E Codes: Natural/environment (1 source) Other and unspecified overexertion or strenuous movements or postures, initial encounter; Translations: [OTH AND UNS OVREXRT/STRN MVMT/POS INT] Onset: 10-11-2021 Episodic Hepatitis (11 sources) Viral hepatitis B without hepatic coma; Translations: [Unspecified viral hepatitis B without hepatic coma] Resolved: 01-07-2022 Episodic Malaise and fatigue (11 sources) Other fatigue; Translations: [Malaise and fatigue] Onset: 07-16-2018 Episodic Neoplasms of unspecified nature or uncertain behavior (11 sources) Neoplasm of uncertain behavior of tongue; Translations: [Neoplasm of uncertain behavior of tongue] Onset: 09-19-2017 Episodic Other aftercare (10 sources) High risk drug monitoring status; Translations: [ad terminal makeup operator (current) use of opiate analgesic] Onset: 11-14-2016 Episodic Other aftercare (1 source) ad terminal makeup operator (current) use of opiate analgesic; Translations: [residential (current) use of opiate analgesic] Onset: 11-14-2016 Episodic Other circulatory disease (10 sources) Orthostatic hypotension; Translations: [Orthostatic hypotension] Resolved: 01-07-2022 Episodic Other circulatory disease (1 source) Orthostatic hypotension; Translations: [Orthostatic hypotension] Resolved: 01-07-2022 Episodic Other connective tissue disease (10 sources) Neuralgia; Translations: [Neuralgia and neuritis, unspecified] Onset: 05-17-2016 Episodic Other connective tissue disease (10 sources) Spasm; Translations: [Cramp and spasm] Onset: 06-27-2016 Episodic Other connective tissue disease (1 source) Cramp and spasm; Translations: [Cramp and spasm] Onset: 06-27-2016 Episodic Other connective tissue disease (1 source) Neuralgia and neuritis, unspecified; Translations: [Neuralgia and neuritis, unspecified] Onset: 05-17-2016 Episodic Other female genital disorders (2 sources) Other specified noninflammatory disorders of vagina; Translations: [OTH SPEC NONINFLAMMATORY D/O VAGINA] Onset: 04-25-2022 Episodic Other female genital disorders (5 sources) Other specified conditions associated with female genital organs and menstrual cycle; Translations: [OTH SPEC COND FE GEN ORG MENST CYCL] Onset: 04-10-2022 Episodic Other female genital disorders (1 source) Other specified noninflammatory disorders of vagina; Translations: [Other specified noninflammatory disorders of vagina] Onset: 06-20-2022 Episodic Other gastrointestinal disorders (4 sources) Abdominal distension (gaseous); Translations: [Abdominal bloating R14.0] Onset: 12-07-2020 Resolved: 01-07-2022 Episodic Other gastrointestinal disorders (1 source) Personal history of other diseases of the digestive system; Translations: [History of ischemic colitis Z87.19] Onset: 12-07-2020 Resolved: 12-07-2020 Episodic Other gastrointestinal disorders (10 sources) Flatulence, eructation and gas pain; Translations: [Abdominal distension (gaseous)] Resolved: 01-07-2022 Episodic Other gastrointestinal disorders (10 sources) Toxic gastroenteritis; Translations: [Toxic gastroenteritis and colitis] Resolved: 04-30-2020 Episodic Other gastrointestinal disorders (1 source) Diarrhea, unspecified; Translations: [Diarrhea, unspecified] Resolved: 01-07-2022 Episodic Other gastrointestinal disorders (1 source) Toxic gastroenteritis and colitis; Translations: [Toxic gastroenteritis and colitis] Resolved: 04-30-2020 Episodic Other hematologic conditions (11 sources) Personal history of diseases of the blood and blood-forming organs and certain disorders involving the immune mechanism; Translations: [Disease of blood AND/OR blood-forming organ] Resolved: 01-07-2022 Episodic Other inflammatory condition of skin (10 sources) Intertrigo; Translations: [Erythema intertrigo] Onset: 10-20-2016 Episodic Other inflammatory condition of skin (1 source) Erythema intertrigo; Translations: [Erythema intertrigo] Onset: 10-20-2016 Episodic Other lower respiratory disease (1 source) Shortness of breath; Translations: [SHORTNESS OF BREATH] Onset: 02-28-2022 Episodic Other non-traumatic joint disorders (3 sources) Pain in right ankle and joints of right foot; Translations: [PAIN IN RIGHT ANKLE] Onset: 10-05-2021 Episodic Other nutritional; endocrine; and metabolic disorders (5 sources) Underweight; Translations: [Underweight] Resolved: 06-21-2021 Episodic Other nutritional; endocrine; and metabolic disorders (10 sources) Abnormal weight loss; Translations: [Abnormal weight loss] Resolved: 01-07-2022 Episodic Other nutritional; endocrine; and metabolic disorders (1 source) Abnormal weight loss; Translations: [Abnormal weight loss] Resolved: 01-07-2022 Episodic Pancreatic disorders (not diabetes) (17 sources) Other specified diseases of pancreas; Translations: [Cyst of pancreas] Onset: 01-07-2022 Episodic Residual codes; unclassified (1 source) Acquired absence of both cervix and uterus; Translations: [ACQUIRED ABSENCE BOTH CERVIX AND UTERUS] Onset: 04-25-2022 Episodic Residual codes; unclassified (1 source) Family history of ischemic heart disease and other diseases of the circulatory system; Translations: [FAM HX ISCHEMIC HRT DZ OTH DZ CIRC] Onset: 02-28-2022 Episodic Residual codes; unclassified (1 source) Personal history of other specified conditions; Translations: [PERSONAL HISTORY OTH SPEC CONDITION] Onset: 01-10-2022 Episodic Residual codes; unclassified (10 sources) Insomnia; Translations: [Insomnia, unspecified] Resolved: 01-07-2022 Episodic Residual codes; unclassified (5 sources) Requires influenza virus vaccination; Translations: [Need for prophylactic vaccination and inoculation, Influenza] Onset: 01-07-2018 Episodic Residual codes; unclassified (11 sources) Localized edema; Translations: [Localized edema] Onset: 08-30-2015 Episodic Residual codes; unclassified (1 source) Insomnia, unspecified; Translations: [Insomnia, unspecified] Resolved: 01-07-2022 Episodic Screening and history of mental health and substance abuse codes (13 sources) Personal history of nicotine dependence; Translations: [Nicotine dependence] Onset: 06-08-2022 Resolved: 01-07-2022 Episodic Skin and subcutaneous tissue infections (10 sources) Cellulitis and abscess of face; Translations: [Cellulitis and abscess of face] Onset: 08-23-2015 Episodic Sprains and strains (1 source) Sprain of unspecified ligament of right ankle, initial encounter; Translations: [SPRAIN UNS LIGAMENT RT ANKLE INIT] Onset: 10-11-2021 Episodic Superficial injury; contusion (2 sources) Contusion of right hip, initial encounter; Translations: [Contusion of lower back and pelvis, initial encounter] Onset: 08-15-2022 Episodic Syncope (11 sources) Syncope and collapse; Translations: [Syncope and collapse] Onset: 08-23-2015 Episodic Unclassified (11 sources) Acute candidiasis of vulva and vagina; Translations: [Acute candidiasis of vulva and vagina] Resolved: 01-07-2022 Urinary tract infections (1 source) Urinary tract infection, site not specified; Translations: [UTI SITE NOT SPECIFIED] Onset: 10-18-2021 Episodic Results Test Name Value Interpretation Reference Range Facility XR lumbar spine AP/LAT/FLX/E XTon 02-27-2023 XR lumbar spine AP/LAT/FLX/EXT [facility] [place] [address] [place] [address] XRay Report Signed Patient: Afia Maxwell MR#: [id number] : 1955 Acct:[id number] Age/Sex: 67 / F ADM Date: 02/27/23 Loc: XD Room: Type: [facility] Attending Dr: Ana SORTOC Copies to: ANUSHKA Quinteros Ordering Provider: ANUSHKA Quinteros Date of Service: 02/27/23 XR/XR lumbar spine AP/LAT/FLX/EXT: Z87.81 LUMBAR SPINE WITH FLEXION AND EXTENSION VIEWS - 4 views CLINICAL DATA: Follow-up lumbar compression fracture. COMPARISON: CT 01/13/2023 Standing AP as well as lateral views in neutral, flexion and extension were obtained. There is osteopenia. Dextroscoliotic curvature is seen. There is subtle retrolisthesis of L3 on L4 which does not change significantly with flexion or extension. There is endplate concavity at L2 where kyphoplasty is again seen. There is also old wedge deformity at T11 and T12. There is kyphoplasty at T9 on the AP view. No new compression fractures are noted. There is no disproportionate disc space narrowing. There is lower lumbar facet disease. The SI joints are intact. No paraspinal soft tissue abnormalities are noted. 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 Impression dictated by: Verito Anderson M.D.02/27/2023 3:16 PM Dictation Location: [place] [address] Transcribed By: NOÉ 02/27/231515 Dictated By: Verito Anderson MD 02/27/231512 Signed By: 02/27/23 151 Normal [facility] Automated erythrocytes count in urine sediment (number/area)Ordered By: Yolanda Chavez on 01-11-2023 RBC Auto (Urine sed) [#/Area] 3-4 [HPF] 0-4 [facility] Automated leukocytes count i n urine sediment (number/area)Ordered By: Yolanda Chavez on 01-11-2023 WBC Auto (Urine sed) [#/Area] 0-1 [HPF] 0-4 [facility] Automated urine sediment jaime cium oxalate crystal count by microscopy (number/high powOrdered By: Yolanda Chavez on 01-11-2023 Calcium oxalate crystals LM.HPF (Urine sed) [#/Area] 3+ [HPF] [facility] Bilirubin Test strip Ql (U)O rdered By: Yolanda Chavez on 01-11-2023 Bilirubin Ql (U) Negative Negative [facility] Color Auto (U)Ordered By: Jeffery Chavez on 01-11-2023 Color (U) Dark yellow Yellow [facility] Dipstick and Microscopicon 1 03-13-2022 Appearance (U) Cloudy Critically abnormal Clear [facility] Comment on above: Order Comment: Name Collection Type:: Clean-Voided Midstream Performed By: #### A DDONUAPLUS, CUU #### [facility] [address] [place] [address] [place] Bacteria,Urine 1+ High None Seen [facility] Comment on above: Order Comment: Name Collection Type:: Clean-Voided Midstream Performed By: #### A DDONUAPLUS, CUU #### [facility] [address] [place] [id number] [place] Bilirubin,Urine Negative Normal Negative [facility] Comment on above: Order Comment: Name Collection Type:: Clean-Voided Midstream Performed By: #### A DDONUAPLUS, CUU #### [facility] [address] [place] [id number] [place] Calcium Oxalate Crystals,Urine 3+ Normal [facility] Comment on above: Order Comment: Name Collection Type:: Clean-Voided Midstream Performed By: #### A DDONUAPLUS, CUU #### [facility] [address] [place] [address] [place] Color (U) Dark Yellow Critically abnormal Yellow [facility] Comment on above: Order Comment: Name Collection Type:: Clean-Voided Midstream Performed By: #### A DDONUAPLUS, CUU #### [place] [address] [place] Glucose Ql (U) Normal Normal Normal [facility] Comment on above: Order Comment: Name Collection Type:: Clean-Voided Midstream Performed By: #### A DDONUAPLUS, CUU #### [place] [address] [place] Hyaline Casts,Urine 0-8 Normal 0-8 [facility] Comment on above: Order Comment: Name Collection Type:: Clean-Voided Midstream Result Comment: PERF ORMED BY: [place] [address] PATHOLOGIST LOW PRESSURE BOILER TENDER SHELTON NEVAREZ M.D. Performed By: #### A DDONUAPLUS, CUU #### [address] Ketones Ql (U) Trace High Negative [facility] Comment on above: Order Comment: Name Collection Type:: Clean-Voided Midstream Performed By: #### A DDONUAPLUS, CUU #### [place] [address] [place] Leukocyte esterase Test strip Ql (U) Negative Normal Negative [facility] Comment on above: Order Comment: Name Collection Type:: Clean-Voided Midstream Performed By: #### A DDONUAPLUS, CUU #### [place] [address] [place] Nitrite,Urine Negative Normal Negative [facility] Comment on above: Order Comment: Name Collection Type:: Clean-Voided Midstream Performed By: #### A DDONUAPLUS, CUU #### [address] [address] [place] Occult Blood,Urine Negative Normal Negative [facility] Comment on above: Order Comment: Name Collection Type:: Clean-Voided Midstream Result Comment: PERF ORMED BY: [place] [address] PATHOLOGIST LOW PRESSURE BOILER TENDER SHELTON NEVAREZ M.D. Performed By: #### A DDONUAPLUS, CUU #### [address] pH (U) 5.5 [pH] Normal 5.0-9.0 [facility] Comment on above: Order Comment: Name Collection Type:: Clean-Voided Midstream Performed By: #### A DDONUAPLUS, CUU #### [address] Protein,Urine Negative Normal Negative [facility] Comment on above: Order Comment: Name Collection Type:: Clean-Voided Midstream Performed By: #### A DDONUAPLUS, CUU #### [facility] [address] [place] [address] RBC,Urine 3-4 Normal 0-4 [facility] Comment on above: Order Comment: Name Collection Type:: Clean-Voided Midstream Performed By: #### A DDONUAPLUS, CUU #### [address] Specificy [place],Urine 1.022 Normal 1.001-1.030 [facility] Comment on above: Order Comment: Name Collection Type:: Clean-Voided Midstream Performed By: #### A DDONUAPLUS, CUU #### [facility] [address] [place] [address] [place] Squamous Epithelial Cell,Urine 0-1 Normal 0-2 [facility] Comment on above: Order Comment: Name Collection Type:: Clean-Voided Midstream Performed By: #### A DDONUAPLUS, CUU #### [address] Urobilinogen,Urine Normal Normal Normal [facility] Comment on above: Order Comment: Name Collection Type:: Clean-Voided Midstream Performed By: #### A DDONUAPLUS, CUU #### [facility] [address] [place] [address] WBC LM.HPF (Urine sed) [#/Area] 0 /[HPF] Normal 0-4 [facility] Comment on above: Order Comment: Name Collection Type:: Clean-Voided Midstream Performed By: #### A DDONUAPLUS, CUU #### [facility] [address] [place] [address] Ketones Auto test strip (U) [Mass/Vol]Ordered By: Yolanda Chavez on 01-11-2023 Ketones (U) [Mass/Vol] Trace Negative [facility] - UrinalysisOrder ed By: Yolanda Chavez on 01-11-2023 Hyaline casts LM Ql (Urine sed) 0-8 [LPF] 0-8 [facility] Nitrite Test strip Ql (U)Ord ered By: Yolanda Chavez on 01-11-2023 Nitrite Ql (U) Negative Negative [facility] Protein Auto test strip (U) [Mass/Vol]Ordered By: Yolanda Chavez on 01-11-2023 Protein (U) [Mass/Vol] Negative Negative [facility] Specific gravity Auto test s trip (U) [Rel density]Ordered By: Yolanda Chavez on 01-11-2023 Specific gravity (U) [Rel density] 1.022 1.001-1.030 [facility] Squamous epithelial cells de tection in urine sediment by light microscopyOrdered By: Yolanda Chavez on 01-11-2023 Epithelial cells.squamous LM Ql (Urine sed) 0-1 [HPF] 0-2 [facility] Urine Cultureon 01-11-2023 Bacteria identified Cx Nom (U) ORGANISM: Strep agalactiae - (group b) (O:STRAGA) [place] Count <10,000 PERFORMED BY: [place] [address] PATHOLOGIST LOW PRESSURE BOILER TENDER SHELTON NEVAREZ M.D. Normal [facility] Comment on above: Performed By: #### A DDONUAPLUS, CUU #### [facility] [address] [place] [id number] [facility] Urine bacteria detection by automated methodOrdered By: Yolanda Chavez on 01-11-2023 Bacteria Auto Ql (U) 1+ None Seen [facility] Urine clarity by refractomet ry automatedOrdered By: Yolanda Chavez on 01-11-2023 Clarity Refractometry automated (U) Cloudy Clear [facility] Urine culture routineOrdered By: Yolanda Chavez on 01-11-2023 Bacteria identified Cx Nom (U) Strep agalactiae - (group b) [facility] Urine glucose measurement by automated test strip (mass/volume)Ordered By: Yolanda Chavez on 01-11-2023 Glucose Auto test strip (U) [Mass/Vol] Normal mg/dL Normal [facility] Urine hemoglobin detection b y automated test stripOrdered By: Yolanda Chavez on 01-11-2023 Hemoglobin Auto test strip Ql (U) Negative Negative [facility] Urine leukocyte esterase det ection by automated test stripOrdered By: Yolanda Chavez on 01-11-2023 Leukocyte esterase Auto test strip Ql (U) Negative Negative [facility] Urine sediment crystal ident ification by light microscopyOrdered By: Yolanda Chavez on 01-11-2023 Crystals LM Nom (Urine sed) N/A [facility] Urobilinogen Auto test strip (U) [Mass/Vol]Ordered By: Yolanda Chavez on 01-11-2023 Urobilinogen (U) [Mass/Vol] Normal mg/dL Normal [facility] pH Auto test strip (U)Ordere d By: Yolanda Chavez on 01-11-2023 pH (U) 5.5 [pH] 5.0-9.0 [facility] ED Note-Physicianon 12-26-19 ED Note-Physician [id number] C6#[id number] Normal [facility] Automated erythrocytes count in urine sediment (number/area)Ordered By: Yolanda Chavez on 11-20-2022 RBC Auto (Urine sed) [#/Area] 20-49 [HPF] 0-4 [facility] Automated leukocytes count i n urine sediment (number/area)Ordered By: Yolanda Chavez on 11-20-2022 WBC Auto (Urine sed) [#/Area] Innumerable [HPF] 0-4 [facility] Automated urine color determ inationOrdered By: Yolanda Chavez on 11-20-2022 Color (U) Yellow Normal Yellow [facility] Comment on above: Order Comment: Name Collection Type:: Collection Method Unknown Performed By: #### C UU, ADDONUAPLUS #### [facility] [address] [place] [address] Automated urine sediment jaime cium oxalate crystal count by microscopy (number/high powOrdered By: Yolanda Chavez on 11-20-2022 Calcium oxalate crystals LM.HPF (Urine sed) [#/Area] Rare [HPF] [facility] Bilirubin Test strip Ql (U)O rdered By: Yolanda Chavez on 11-20-2022 Bilirubin Ql (U) Negative Negative [facility] Casts typing in urine sedime nt by light microscopyOrdered By: Yolanda Chavez on 11-20-2022 Casts LM Nom (Urine sed) None seen [LPF] None Seen [facility] Dipstick and Microscopicon 0 11-20-2022 Appearance (U) Turbid Critically abnormal Clear [facility] Comment on above: Order Comment: Name Collection Type:: Collection Method Unknown Performed By: #### C UU, ADDONUAPLUS #### [facility] [address] [place] [address] [place] Bacteria,Urine 4+ High None Seen [facility] Comment on above: Order Comment: Name Collection Type:: Collection Method Unknown Performed By: #### C UU, ADDONUAPLUS #### [facility] [address] [place] [address] [place] Bilirubin,Urine Negative Normal Negative [facility] Comment on above: Order Comment: Name Collection Type:: Collection Method Unknown Performed By: #### C UU, ADDONUAPLUS #### [facility] [address] [place] [address] [place] Calcium Oxalate Crystals,Urine Rare Normal [facility] Comment on above: Order Comment: Name Collection Type:: Collection Method Unknown Performed By: #### C UU, ADDONUAPLUS #### [facility] [address] [place] [address] [place] Glucose Ql (U) Normal Normal Normal [facility] Comment on above: Order Comment: Name Collection Type:: Collection Method Unknown Performed By: #### C UU, ADDONUAPLUS #### [facility] [address] [place] [address] [place] Hyaline Casts,Urine None Seen Normal 0-8 [facility] Comment on above: Order Comment: Name Collection Type:: Collection Method Unknown Performed By: #### C UU, ADDONUAPLUS #### [place] [address] [place] Ketones Ql (U) 1+ High Negative [facility] Comment on above: Order Comment: Name Collection Type:: Collection Method Unknown Performed By: #### C UU, ADDONUAPLUS #### [facility] [address] [place] [address] [place] Leukocyte esterase Test strip Ql (U) 4+ High Negative [facility] Comment on above: Order Comment: Name Collection Type:: Collection Method Unknown Performed By: #### C UU, ADDONUAPLUS #### [facility] [address] [place] [address] [place] Nitrite,Urine Negative Normal Negative [facility] Comment on above: Order Comment: Name Collection Type:: Collection Method Unknown Performed By: #### C UU, ADDONUAPLUS #### [facility] [address] [place] [address] [place] Occult Blood,Urine 3+ High Negative [facility] Comment on above: Order Comment: Name Collection Type:: Collection Method Unknown Result Comment: PERF ORMED BY: [place] [address] PATHOLOGIST LOW PRESSURE BOILER TENDER SHELTON NEVAREZ M.D. Performed By: #### C UU, ADDONUAPLUS #### [facility] [address] [place] [address] [place] Other Casts,Urine None Seen Normal None Seen [facility] Comment on above: Order Comment: Name Collection Type:: Collection Method Unknown Result Comment: PERF ORMED BY: [place] [address] PATHOLOGIST LOW PRESSURE BOILER TENDER SHELTON NEVAREZ M.D. Performed By: #### C UU, ADDONUAPLUS #### [address] Protein,Urine Trace High Negative [facility] Comment on above: Order Comment: Name Collection Type:: Collection Method Unknown Performed By: #### C UU, ADDONUAPLUS #### [address] RBC,Urine 20-49 High 0-4 [facility] Comment on above: Order Comment: Name Collection Type:: Collection Method Unknown Performed By: #### C UU, ADDONUAPLUS #### [address] Specificy [place],Urine 1.008 Normal 1.001-1.030 [facility] Comment on above: Order Comment: Name Collection Type:: Collection Method Unknown Performed By: #### C UU, ADDONUAPLUS #### [address] Squamous Epithelial Cell,Urine 1-2 Normal 0-2 [facility] Comment on above: Order Comment: Name Collection Type:: Collection Method Unknown Performed By: #### C UU, ADDONUAPLUS #### [address] Urobilinogen,Urine Normal Normal Normal [facility] Comment on above: Order Comment: Name Collection Type:: Collection Method Unknown Performed By: #### C UU, ADDONUAPLUS #### [address] WBC,Urine Innumerable High 0-4 [facility] Comment on above: Order Comment: Name Collection Type:: Collection Method Unknown Performed By: #### C UU, ADDONUAPLUS #### [address] Ketones Auto test strip (U) [Mass/Vol]Ordered By: Yolanda Chavez on 11-20-2022 Ketones (U) [Mass/Vol] 1+ Negative Fi [facility] - UrinalysisOrder ed By: Yolanda Chavez on 11-20-2022 Hyaline casts LM Ql (Urine sed) None seen [LPF] 0-8 [facility] Nitrite Test strip Ql (U)Ord ered By: Yolanda Chavez on 11-20-2022 Nitrite Ql (U) Negative Negative [facility] Protein Auto test strip (U) [Mass/Vol]Ordered By: Yolanda Chavez on 11-20-2022 Protein (U) [Mass/Vol] Trace mg/dL Negative F [facility] Specific gravity Auto test s trip (U) [Rel density]Ordered By: Yolanda Chavez on 11-20-2022 Specific gravity (U) [Rel density] 1.008 1.001-1.030 [facility] Squamous epithelial cells de tection in urine sediment by light microscopyOrdered By: Yolanda Chavez on 11-20-2022 Epithelial cells.squamous LM Ql (Urine sed) 1-2 [HPF] 0-2 [facility] Urine Cultureon 11-20-2022 Bacteria identified Cx Nom (U) ORGANISM: Klebsiella oxytoca (O:KLEOXY) [place] Count >100,000 Aerobic ARIEL Charge ([id number]) ------ SUSCEPTIBILITY ----- ORGANISM: O:KLEOXY ANTIBIOTIC INTERPRETATION ARIEL Amikacin S <16 Amoxacillin/K Clavulanate S <8 Ampicillin/Sulbacta m S 88/4 Aztreonam S <4 Cefazolin R >16 Cefepime S <2 Ceftazidime S <1 Ceftazidime/Avibact am S <4 Ceftolozane/Tazobac mena S <2 Ceftriaxone S <1 Cefuroxime S <4 Ciprofloxacin S <0.25 Ertapenem S <0.5 Gentamicin S <2 Levofloxacin S <0.5 Meropenem S <1 Meropenem/Vaborbact am S <2 Nitrofurantoin S <32 Piperacillin/Tazoba ctam S <8 Tetracycline S <4 Tigecycline S <2 Tobramycin S <2 Trimethoprim/Sulfam ethoxazole S <0.5 S = SUSCEPTIBLE I = INTERMEDIATE R = RESISTANT BLANK = DATA NOT AVAILABLE, OR DRUG NOT ADVISABLE OR TESTED R* = RESISTANCE DUE TO EXTENDED SPECTRUM BETA-LACTAMASES ESBL = EXTENDED SPECTRUM BETA-LACTAMASE TFG = THYMIDINE-DEPENDENT STRAIN JOSELIN = BETA-LACTAMASE POSITIVE IB = INDUCIBLE BETA-LACTAMASE. APPEARS IN PLACE OF 'S' WITH SPECIES KNOWN TO POSSESS INDUCIBLE BETA-LACTAMASES. POTENTIALLY THEY MAY BECOME RESISTANT TO ALL B-LACTAM DRUGS. PERFORMED BY: [place] [address] PATHOLOGIST LOW PRESSURE BOILER TENDER SHELTON NEVAREZ M.D. Normal [facility] Comment on above: Performed By: #### C JONATHAN HERRING #### [facility] [address] [place] [address] Urine bacteria detection by automated methodOrdered By: Yolanda Chavez on 11-20-2022 Bacteria Auto Ql (U) 4+ None Seen [facility] Urine clarity by refractomet ry automatedOrdered By: Yolanda Chavez on 11-20-2022 Clarity Refractometry automated (U) Turbid Clear [facility] Urine culture routineOrdered By: Yolanda Chavez on 11-20-2022 Bacteria identified Cx Nom (U) Klebsiella oxytoca [facility] Urine glucose measurement by automated test strip (mass/volume)Ordered By: Yolanda Chavez on 11-20-2022 Glucose Auto test strip (U) [Mass/Vol] Normal mg/dL Normal [facility] Urine hemoglobin detection b y automated test stripOrdered By: Yolanda Chavez on 11-20-2022 Hemoglobin Auto test strip Ql (U) 3+ Negative [facility] Urine leukocyte esterase det ection by automated test stripOrdered By: Yolanda Chavez on 11-20-2022 Leukocyte esterase Auto test strip Ql (U) 4+ Negative [facility] Urine pH measurement by auto mated test stripOrdered By: Yolanda Chavez on 11-20-2022 pH (U) 7.5 [pH] Normal 5.0-9.0 [facility] Comment on above: Order Comment: Name Collection Type:: Collection Method Unknown Performed By: #### C NEVAEH, IDAUAPLUS #### [facility] [address] [place] [id number] [facility] Urobilinogen Auto test strip (U) [Mass/Vol]Ordered By: Yolanda Chavez on 11-20-2022 Urobilinogen (U) [Mass/Vol] Normal mg/dL Normal [facility] MR MRCPon 11-09-2022 MR MRCP [facility] [place] [address] [place] [id number] MRI Report Signed Patient: Afia Maxwell MR#: [id number] : 1955 Acct:[id number] Age/Sex: 67 / F ADM Date: 11/09/22 Loc: Room: Type: [facility] Attending Dr: Kiran Barksdale MD Copies to: Kiran Barksdale MD Ordering Provider: Kiran Barksdale MD Date of Service: 11/09/22 MR/MR MRCP: Pancreas cyst MRI OF THE ABDOMEN WITHOUT CONTRAST: MRCP CLINICAL HISTORY: Left upper quadrant pain. COMPARISON: CT abdomen and pelvis 01/06/2022. TECHNIQUE: Multisequence, multiplanar imaging of the abdomen was obtained without the use of IV contrast. MRCP imaging was obtained. FINDINGS: Suboptimal evaluation due to lack of IV contrast. The liver appears normal in contour without evidence of intrahepatic ductal dilatation. Hepatic steatosis is noted. The focal T2 abnormality is seen to suggest underlying lesion. Gallbladder appears unremarkable. MRCP imaging appears normal in caliber without evidence of choledocholithiasis . No evidence of pancreatic divisum is noted. Pancreatic duct appears normal in caliber. A 6 mm cystic lesion is seen involving the pancreatic head without definitive communication to the pancreatic duct. Additional presumed dilated sidebranches are seen within the region. No surrounding inflammatory changes to suggest pancreatitis. Spleen is grossly unremarkable. Adrenal glands appear unremarkable. Kidneys appear grossly unremarkable. Abdominal aorta appears normal in caliber. No bulky lymphadenopathy or ascites. Moderate size hiatal hernia. No pleural effusion. MR/MR MRCP IMPRESSION: NO ACUTE FINDINGS. NO MRI EVIDENCE OF BILIARY OBSTRUCTION. 6 MM CYSTIC LESION INVOLVING THE PANCREATIC HEAD. DIFFERENTIAL CONSIDERATIONS INCLUDE THE SEQUELA OF PRIOR PANCREATITIS SUCH A SMALL PSEUDOCYST OR POSSIBLY A CYSTIC NEOPLASM SUCH AN IPMN. REPEAT MRI IN ONE YEAR IS SUGGESTED. Impression dictated by: Handy Zhou Jr., D.O.11/09/2022 10:49 AM Dictation Location: [place] [address] Transcribed By: [facility] 11/09/22 104 Dictated By: Handy Zhou Jr, DO 11/09/22 103 Signed By: 11/09/22 1049 [facility] COVID Quick Testingon 2022 Result Negative [employer] Other PROF CHEM 8 (BAS METB)on Anion gap [Moles/Vol] 18.4 mmol/L Normal [facility] Comment on above: Performed By: #### B NILSA, TSH #### [facility] [address] [place] [address] Dr. David Cannon Calcium [Mass/Vol] 9.5 mg/dL Normal 8.5-10.1 [facility] Comment on above: Performed By: #### B NILSA, TSH #### [facility] [address] [address] [address] David Cannon Chloride [Moles/Vol] 104 mmol/L Normal 98-107 [facility] Comment on above: Performed By: #### B NILSA, TSH #### [facility] [address] [address] [address] David Cannon CO2 [Moles/Vol] 23.5 mmol/L Normal 21.0-32.0 [facility] Comment on above: Performed By: #### B NILSA, TSH #### [facility] [address] [address] [address] David Cannon Creatinine [Mass/Vol] 0.87 mg/dL Normal 0.55-1.02 [facility] Comment on above: Performed By: #### B MP, TSH #### [facility] [address] [place] [address] Dr. David Cannon EGFR-AF MOSOTHO >60 Normal >=60 [facility] Comment on above: Performed By: #### B MP, TSH #### [facility] [address] [place] [address] Dr. David Cannon EGFR-NON AF MOSOTHO >60 Normal >=60 [facility] Comment on above: Performed By: #### B MP, TSH #### [facility] [address] [address] [address] David Cannon Glucose [Mass/Vol] 142 mg/dL Critically high 74-106 [facility] Comment on above: Performed By: #### B MP, TSH #### [facility] [address] [address] [address] David Cannon Potassium [Moles/Vol] 3.9 mmol/L Normal 3.5-5.1 [facility] Comment on above: Performed By: #### B MP, TSH #### [facility] [address] [address] [address] David Cannon Sodium [Moles/Vol] 142 mmol/L Normal 136-145 [facility] Comment on above: Performed By: #### B MP, TSH #### [facility] [address] [address] [address] David Cannon Urea nitrogen [Mass/Vol] 15.0 mg/dL Normal 7.0-18.0 [facility] Comment on above: Performed By: #### B MP, TSH #### [facility] [address] [address] [address] David Cannon Urea nitrogen/Creatinine [Mass ratio] 17.2 mg/mg Normal [facility] Comment on above: Performed By: #### B MP, TSH #### [facility] [address] [address] [address] David Cannon TSHon 07-27-2022 TSH 1.753 uIU/mL Normal 0.358-3.740 [facility] Comment on above: Performed By: #### B MP, TSH #### [facility] [address] [address] [address] David Cannon VITAMIN B12on 07-27-2022 Cobalamin (Vitamin B12) [Mass/Vol] 938.0 pg/mL Normal 193.0-986.0 [facility] Comment on above: Performed By: #### V ITB12 ####[facility] [address] [place], [place] [address]De. David Cannon VITAMIN D 25 OHon 07-27-2022 VIT D 25-OH 45.3 ng/mL Normal [facility] Comment on above: Performed By: #### V ITAD ####[facility] [address] [place], [place] [address]So. David Cannon VIT D RANGES SEE BELOW Normal [facility] Comment on above: Result Comment: <20 ng/mL Vit D deficient 20 - <30 ng/mL Vit D insufficient 30 - 100 ng/mL Vit D sufficient >100 ng/mL Potential Toxicity Performed By: #### V ITAD ####[facility] [address] [place], [place] [address]Hc. David Cannon XR HIP RT 2 3V W PELVISon XR HIP RT 2 3V W PELVIS EXAM: Right hip and AP of the pelvis HISTORY: . Pain in right hip joint . COMPARISON: 10/20/2021 TECHNIQUE: 3 views. FINDINGS: Bony pelvis is intact. No fracture or bony destructive process is noted. No fracture or dislocation of the right hip is noted. Minimal spurring is noted involving the femoral head. Impression: 1. No bony abnormality of the pelvis. 2. 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 Electronically authenticated by: JANNA HASSAN Date: 2022-07-27 21:48 Normal [facility] MG MAMM SCREEN 3D EIRC CADon 07-20-2022 MG MAMM SCREEN 3D ERIC CAD Patient: AFIA MAXWELL Exam Date: 07/20/2022 : 1955 Gender:F Ordering : DR PHANI ANTHONY D.O. Admission #: [id number] Family : Order #: [id number] CLICK HERE TO VIEW EXAM RADIOLOGY REPORT PROCEDURE: MAMMOGRAM SCREENING 3D BILATERAL CAD COMPARISON: MG MAMM SCREEN 3D ERIC CAD, 11/02/2020. MG MAMM SCREEN ERIC W CAD, 10/22/2019. MG MAMM SCREEN ERIC W CAD, 10/15/2018. MG MAMM SCREEN ERIC W CAD, 10/05/2017. INDICATIONS: Screening mammography Calculator Name NCI Breast Cancer Risk Assessment Tool 5 Year Breast Cancer Risk 1.50% Lifetime Breast Cancer Risk 5.20% Personal Breast Cancer No Personal Ovarian Cancer No Treatments None Family Cancers Father with colon cancer at age 72. LOCATION: [facility] BREAST COMPOSITION: Scattered areas fibroglandular density. FINDINGS: DIAGNOSTIC CATEGORY 1--NEGATIVE. RIGHT BREAST: No significant suspicious finding. No significant change has occurred. LEFT BREAST: No significant suspicious finding. No significant change has occurred. RECOMMENDATIONS: ROUTINE MAMMOGRAM AND CLINICAL EVALUATION IN 12 MONTHS. PLEASE NOTE: A NORMAL MAMMOGRAM DOES NOT EXCLUDE THE POSSIBILITY OF BREAST CANCER. A CLINICALLY SUSPICIOUS PALPABLE LUMP SHOULD BE BIOPSIED. Dictated by: Celia Valente M.D. on 07/20/2022 at 14:02 Approved by: Celia Valente M.D. on 07/20/2022 at 14:09 Normal [facility] XR DEXA BONE DENSITYon 07-20 XR DEXA BONE DENSITY EXAMINATION: XR DEXA BONE DENSITY, 07/20/2022 1:15 PM EDT HISTORY: Senile osteoporosis COMPARISON: DEXA bone densitometry 10/22/2019 TECHNIQUE: Dual-energy X-ray absorptiometry (DEXA) bone density study performed for the axial skeleton. FINDINGS: FOREARM ANALYSIS: Average bone mineral density is 0.469 g/cm2. T-score (standard deviation relative to young adult mean): -3.4 . -7.3% change since prior study. HIP ANALYSIS: Lowest bone mineral density is within the right femoral trochanter, 0.454 g/cm2. T-score (standard deviation relative to young adult mean): -3.5 . +9.4% change since prior study. IMPRESSION: World [employer] Organization Classification: Osteoporosis - High Fracture Risk Electronically authenticated by: CELIA VALENTE Date: 2022-07-20 14:26 Normal [facility] Bacteria Vaginosis, NAAon Atopobium Vaginae Low - [address] Normal . [facility] Comment on above: Order Comment: Reaso n for Exam Vaginal discharge Performed By: #### C ANDIDA,NA, VAGINOSIS #### [facility] , BVAB2 Low - 0 Normal . [facility] Comment on above: Order Comment: Reaso n for Exam Vaginal discharge Performed By: #### C ANDIDA,NA, VAGINOSIS #### [facility] , Megasphaera Low - 0 Normal . [facility] Comment on above: Order Comment: Reaso n for Exam Vaginal discharge Result Comment: Calc ulate total score by adding the 3 individual bacterial vaginosis (BV) marker scores together. Total score is interpreted as follows: Total score 0-1: Indicates the absence of BV. Total score 2: Indeterminate for BV. Additional clinical data should be evaluated to establish a diagnosis. Total score 3-6: Indicates the presence of BV. This test was developed and its performance characteristics determined by [facility]. It has not been cleared or approved by the Food and Drug Administration. Performed By: #### C ANDIDA,NA, VAGINOSIS #### [facility] , Susan Albicans+Glabrata, N AAon 06-20-2022 Susan Albicans, JOSH Negative Normal Negative [facility] Comment on above: Order Comment: Reaso n for Exam Vaginal discharge Result Comment: This test was developed and its performance characteristics determined by [facility]. It has not been cleared or approved by the Food and Drug Administration. Performed By: #### C ANDIDA,NA, VAGINOSIS #### [facility] , Susan Glabrata, JOSH Negative Normal Negative [facility] Comment on above: Order Comment: Reaso n for Exam Vaginal discharge Result Comment: This test was developed and its performance characteristics determined by [facility]. It has not been cleared or approved by the Food and Drug Administration. Performed at: =[address] [id number] Plugman: Emili Locke MD, Phone: [phone] PERFORMED BY: [facility] [address] [place] [address] PATHOLOGIST LOW PRESSURE BOILER TENDER SHELTON NEVAREZ M.D. Performed By: #### C ANDIDA,NA, VAGINOSIS #### [facility] , Urinalysis - AUTOMATEDon Appearance (U) clear [employer] Other Bilirubin Ql (U) Negative [employer] Other Color (U) yellow [employer] Other Glucose Ql (U) Negative [employer] Other Hemoglobin Ql (U) Negative [employer] Other Ketones Ql (U) Negative [employer] Other Leukocyte esterase Test strip Ql (U) Negative [employer] Other Nitrite Ql (U) Negative [employer] Other pH (U) 5.5 [pH] [employer] Other Protein Ql (U) Negative [employer] Other Specific gravity (U) [Rel density] 1.025 [employer] Other Urobilinogen (U) [Mass/Vol] 0.2 mg/dL [employer] Other Urinalysis - AUTOMATED No rt [employer] Other XR TSPINE 2 VIEWSon 06-17-19 23 XR TSPINE 2 VIEWS EXAMINATION: XR TSPINE 2 VIEWS HISTORY: Pain in thoracic spine COMPARISON: XR T-spine 08/18/2021 FINDINGS: BONES: Prior compression fractures and vertebroplasty of T8, T9, and L2 vertebral bodies. Stable mild compression fractures of T10, T11, T12. Grossly stable prominent right scoliotic curvature thoracic spine. DISC SPACES: Multilevel mild disc space narrowing. PARASPINOUS: Negative. No paraspinous abnormality is seen. OTHER: Negative. IMPRESSION: 1. Grossly stable degenerative changes, compression fractures, and dextroscoliosis. Electronically authenticated by: CELIA VALENTE Date: 2022-06-16 13:46 Normal [facility] BNPon 06-07-2022 Natriuretic peptide B (Bld) [Mass/Vol] 68.0 pg/mL Normal <=900.0 [facility] Comment on above: Performed By: #### C RP, CMP, BNP ####[facility] [address] [place] [address]DrGerry Cannon CBC AUTO DIFFon 06-07-2022 BASO # 0.0 103/ul Normal 0.0-0.1 [facility] Comment on above: Performed By: #### C BC ####[facility] [address] [place] [address]Dr. David Cannon Basophils/100 WBC (Bld) 0.5 % Normal 0.2-2.0 [facility] Comment on above: Performed By: #### C BC ####[facility] [address] [place], [place] [address]Dr. Janellbraeden Davis EO # 0.2 103/ul Normal 0.0-0.7 [facility] Comment on above: Performed By: #### C BC ####[facility] [address] [place], [place] [address]Dr. David Davis Eosinophils/100 WBC (Bld) 2.0 % Normal 0.9-7.0 [facility] Comment on above: Performed By: #### C BC ####[facility] [address] [place], [place] [address]Dr. David Cannon Erythrocyte distribution width (RBC) [Ratio] 12.3 % Normal 11.0-15.0 [facility] Comment on above: Performed By: #### C BC ####[facility] [address] [place], [place] [address]Dr. David Cannon Hematocrit (Bld) [Volume fraction] 44.4 % Normal 36.0-48.0 [facility] Comment on above: Performed By: #### C BC ####[facility] [address] [place], [place] [address]Dr. David Cannon Hemoglobin (Bld) [Mass/Vol] 14.3 g/dL Normal 12.0-16.0 [facility] Comment on above: Performed By: #### C BC ####[facility] [address] [place], [place] [address]Dr. David Cannon IG # 0.01 10e3/ul Normal 0.00-0.03 [facility] Comment on above: Performed By: #### C BC ####[facility] [address] [place], [place] [address]Dr. David Cannon IG % 0.1 % Normal 0.0-0.5 [facility] Comment on above: Performed By: #### C BC ####[facility] [address] [place] [address]DrGerry Cannon LYMPH # 2.7 103/ul Normal 1.2-3.8 [facility] Comment on above: Performed By: #### C BC ####[facility] [address] [place] [address]DrGerry Cannon Lymphocytes/100 WBC (Bld) 37.0 % Normal 20.5-60.0 [facility] Comment on above: Performed By: #### C BC ####[facility] [address] [place] [address]DrGerry Cannon MANUAL DIFF REQ NO Normal [facility] Comment on above: Performed By: #### C BC ####[facility] [address] [place], [place] [address]DrGerry Cannon MCH (RBC) [Entitic mass] 31.4 pg Normal 26.7-34.0 [facility] Comment on above: Performed By: #### C BC ####[facility] [address] [place], [place] [address]DrGerry Cannon MCHC (RBC) [Mass/Vol] 32.2 g/dL Normal 29.9-35.2 [facility] Comment on above: Performed By: #### C BC ####[facility] [address] [place], [place] [address]DrGerry Cannon MCV (RBC) [Entitic vol] 97.4 fL Normal 81.0-99.0 [facility] Comment on above: Performed By: #### C BC ####[facility] [address] [place] [address]DrGerry Cannon MONO # 0.6 103/ul Normal 0.3-0.8 [facility] Comment on above: Performed By: #### C BC ####[facility] [address] [place], [place] [address]DrGerry Cannon Monocytes/100 WBC (Bld) 7.8 % Normal 1.7-12.0 [facility] Comment on above: Performed By: #### C BC ####[facility] [address] [place] [address]Dr. David Cannon NEUT # 3.9 103/ul Normal 1.4-6.5 [facility] Comment on above: Performed By: #### C BC ####[facility] [address] [place] [address]Dr. David Cannon Neutrophils/100 WBC (Bld) 52.6 % Normal 43.0-75.0 [facility] Comment on above: Performed By: #### C BC ####[facility] [address] [place], [place] [address]Dr. David Cannon Platelet mean volume (Bld) [Entitic vol] 9.0 fL Critically low 9.5-13.5 [facility] Comment on above: Performed By: #### C BC ####[facility] [address] [place], [place] [address]Dr. David Cannon PLT 233 103/ul Normal 150-450 [facility] Comment on above: Performed By: #### C BC ####[facility] [address] [place], [place] [address]Dr. David Cannon RBC 4.56 106/ul Normal 4.20-5.40 [facility] Comment on above: Performed By: #### C BC ####[facility] [address] [place], [place] [address]Dr. David Cannon WBC 7.4 103/ul Normal 4.0-11.0 [facility] Comment on above: Performed By: #### C BC ####[facility] [address] [place], [place] [address]Dr. David Cannon CRPon 06-07-2022 CRP [Mass/Vol] mg/L Normal <=1.0 [place] Comment on above: Performed By: #### C RP, CMP, BNP ####[facility] [address] [place], [place] [address]Dr. David Cannon CULTURE URINEon 06-07-2022 CULTURE URINE Culture Observations: LIGHT GROWTH OF MIXED GENITAL ANISHA. NO POTENTIAL PATHOGENS SEEN. Normal [facility] Comment on above: Performed By: #### U RCX ####[facility] [address] [place] [address]Dr. David Cannon ER URINE PROFILEon 3 Bilirubin Ql (U) Negative Normal NEGATIVE [facility] Comment on above: Performed By: #### B MP, TSH #### [facility] [address] [place] [address] Dr. David Cannon Clarity (U) CLEAR Normal CLEAR [facility] Comment on above: Performed By: #### B MP, TSH #### [facility] [address] [place] [address] Dr. David Cannon Color (U) LT. YELLOW Normal YELLOW [facility] Comment on above: Performed By: #### B MP, TSH #### [facility] [address] [place] [address] Dr. David OWEN A micrscopic examination will be performed if indicated. Normal [facility] Comment on above: Performed By: #### B MP, TSH #### [facility] [address] [place] [address] Dr. David Cannon Glucose Ql (U) Negative Normal NEGATIVE [facility] Comment on above: Performed By: #### B MP, TSH #### [facility] [address] [place] [address] Dr. David Cannon Hemoglobin Ql (U) Negative Normal NEGATIVE [facility] Comment on above: Performed By: #### B MP, TSH #### [facility] [address] [place] [address] Dr. David Cannon Ketones Ql (U) Negative Normal NEGATIVE [facility] Comment on above: Performed By: #### B MP, TSH #### [facility] [address] [place] [address] Dr. David Cannon LEUKOCYTES SMALL Abnormal NEGATIVE [facility] Comment on above: Performed By: #### B MP, TSH #### [facility] [address] [place] [address] Dr. David Cannon Nitrite Ql (U) Negative Normal NEGATIVE [place] Comment on above: Performed By: #### B MP, TSH #### [facility] [address] [place] [address] Dr. David Cannon pH (U) 6.0 [pH] Normal 5-9 [facility] Comment on above: Performed By: #### B MP, TSH #### [facility] [address] [place] [address] Dr. David Cannon SPEC GRAVITY 1.010 Normal 1.005-<=1.02 5 [facility] Comment on above: Performed By: #### B NILSA, TSH #### [facility] [address] [place] [address] Dr. David Cannon UA PROTEIN Negative Normal NEGATIVE/ TRACE [facility] Comment on above: Performed By: #### B NILSA, TSH #### [facility] [address] [place] [address] Dr. David Cannon UR MICRO IND INDICATED Normal [facility] Comment on above: Performed By: #### B NILSA, TSH #### [facility] [address] [place] [address] Dr. David Cannon Urobilinogen Qn (U) 0.2 {Skip'U}/dL Normal 0.2 - 1. 0 [facility] Comment on above: Performed By: #### B NILSA, TSH #### [facility] [address] [place] [address] Dr. David Cannon PROF 14(COMP METB)on 023 Albumin [Mass/Vol] 4.3 g/dL Normal 3.4-5.0 [facility] Comment on above: Performed By: #### C RP, CMP, BNP ####[facility] [address] [place] [address]Dr. David Cannon Albumin/Globulin [Mass ratio] 1.1 {ratio} Normal [facility] Comment on above: Performed By: #### C RP, CMP, BNP ####[facility] [address] [address]Dr. David Cannon ALP [Catalytic activity/Vol] 82 U/L Normal 46-116 [facility] Comment on above: Performed By: #### C RP, CMP, BNP ####[facility] [address] [address]Dr. David Cannon ALT [Catalytic activity/Vol] 21 U/L Normal 14-59 [facility] Comment on above: Performed By: #### C RP, CMP, BNP ####[facility] [address] [address]Dr. David Cannon Anion gap [Moles/Vol] 12.3 mmol/L Normal [facility] Comment on above: Performed By: #### C RP, CMP, BNP ####[facility] [address] [address]Dr. David Cannon AST [Catalytic activity/Vol] 15 U/L Normal 15-37 [facility] Comment on above: Performed By: #### C RP, CMP, BNP ####[facility] [address] [address]Dr. David Cannon Bilirubin [Mass/Vol] 0.2 mg/dL Normal 0.2-1.0 [facility] Comment on above: Performed By: #### C RP, CMP, BNP ####[facility] [address] [address]Dr. David Cannon Calcium [Mass/Vol] 9.2 mg/dL Normal 8.5-10.1 [facility] Comment on above: Performed By: #### C RP, CMP, BNP ####[facility] [address] [address]Dr. David Cannon Chloride [Moles/Vol] 104 mmol/L Normal 98-107 [facility] Comment on above: Performed By: #### C RP, CMP, BNP ####[facility] [address] [address]Dr. Dvaid Cannon CO2 [Moles/Vol] 31.2 mmol/L Normal 21.0-32.0 [facility] Comment on above: Performed By: #### C RP, CMP, BNP ####[facility] [address] [place] [address]Dr. David Cannon Creatinine [Mass/Vol] 0.52 mg/dL Critically low 0.55-1.02 [facility] Comment on above: Performed By: #### C RP, CMP, BNP ####[facility] [address] [place] [address]Dr. David Cannon EGFR-AF MOSOTHO >60 Normal >=60 [facility] Comment on above: Performed By: #### C RP, CMP, BNP ####[facility] [address] [place] [address]Dr. David Cannon EGFR-NON AF MOSOTHO >60 Normal >=60 [facility] Comment on above: Performed By: #### C RP, CMP, BNP ####[facility] [address] [address]Dr. David Cannon Globulin (S) [Mass/Vol] 3.9 g/dL Normal [facility] Comment on above: Performed By: #### C RP, CMP, BNP ####[facility] [address] [place] [address]Dr. David Cannon Glucose [Mass/Vol] 79 mg/dL Normal 74-106 [facility] Comment on above: Performed By: #### C RP, CMP, BNP ####[facility] [address] [place] [address]Dr. David Cannon Potassium [Moles/Vol] 3.5 mmol/L Normal 3.5-5.1 [facility] Comment on above: Performed By: #### C RP, CMP, BNP ####[facility] [address] [place] [address]Dr. David Cannon Protein [Mass/Vol] 8.2 g/dL Normal 6.4-8.2 [facility] Comment on above: Performed By: #### C RP, CMP, BNP ####[facility] [address] [place] [address]Dr. David Cannon Sodium [Moles/Vol] 144 mmol/L Normal 136-145 [facility] Comment on above: Performed By: #### C RP, CMP, BNP ####[facility] [address] [place] [address]DrGerry Cannon Urea nitrogen [Mass/Vol] 16.0 mg/dL Normal 7.0-18.0 [facility] Comment on above: Performed By: #### C RP, CMP, BNP ####[facility] [address] [place] [address]DrGerry Cannon Urea nitrogen/Creatinine [Mass ratio] 30.8 mg/mg Normal [facility] Comment on above: Performed By: #### C RP, CMP, BNP ####[facility] [id number] [place] [address]Dr. David Cannon PROTIMEon 06-07-2022 INR Coag (PPP) [Relative time] {INR} Normal [facility] Comment on above: Performed By: #### A NARF #### [facility] [address] [place] [address] Dr. David Cannon INR GUIDELINES SEE BELOW Normal [place] Comment on above: Result Comment: SURY RED INR: 2.0 - 3.0 CONDITIONS NOT LISTED BELOW 2.5 - 3.5 FOR PROSTHETIC HEART VALVE REPLACEMENT 2.5 - 3.5 RECURRENT THROMBOSIS Performed By: #### A NARF #### [facility] [address] [address] [address] David Cannon PT Coag (PPP) [Time] 9.6 s Normal 9.0-11.6 [facility] Comment on above: Performed By: #### A NARF #### [facility] [address] [address] [address] David Cannon PTTon 06-07-2022 aPTT Coag (Bld) [Time] 25.6 s Normal 22.3-36.2 Th [facility] Comment on above: Performed By: #### A NARF #### [facility] [address] [address] [address] David Cannon SED RATE TAY[place]ILLEERGRENon 2022 SED RATE 21 mm/hr Normal <=30 [facility] Comment on above: Performed By: #### S EDR ####[facility] [id number] [address]Dr. David Cannon URINE MICROSCOPIC ONLYon BACTERIA SMALL Abnormal NONE SEEN The [facility] Comment on above: Performed By: #### B MP, TSH #### [facility] [address] [address] [address] David Cannon Bacteria identified Cx Nom (U) INDICATED Normal [facility] Comment on above: Performed By: #### B MP, TSH #### [facility] [address] [address] [address] David Cannon CAST NONE SEEN Normal NONE SEEN The [facility] Comment on above: Performed By: #### B MP, TSH #### [facility] [address] [place] [address] Dr. David Cannon Crystals LM Nom (Urine sed) NONE SEEN Normal NONE SEEN The [facility] Comment on above: Performed By: #### B MP, TSH #### [facility] [address] [place] [address] Dr. David Cannon Epithelial cells LM Ql (Urine sed) FEW Abnormal NONE SEEN /RARE The [facility] Comment on above: Performed By: #### B MP, TSH #### [facility] [address] [place] [address] Dr. David Cannon MUCOUS NONE SEEN Normal NONE SEEN The [facility] Comment on above: Performed By: #### B MP, TSH #### [facility] [address] [place] [address] Dr. David Cannon RBC 0-2 Normal 0-2 [facility] Comment on above: Performed By: #### B MP, TSH #### [facility] [address] [place] [address] Dr. David Cannon WBC 5-10 Abnormal NONE SEEN The [facility] Comment on above: Performed By: #### B MP, TSH #### [facility] [address] [place] [address] Dr. David Cannon NISHI EIA W/REFLEX 5 BIOMARKER Son 03-21-2023 NISHI Direct Negative Normal Negative [facility] Comment on above: Performed By: #### A NARF #### [facility] [address] [place] [address] Dr. David Cannon C-Reactive Proteinon 023 C-Reactive Protein 0.3 mg/dL <=1.0 mg/dL [employer] Other CBC AUTO DIFFon 05-29-2022 BASO # 0.0 103/ul Normal 0.0-0.1 [facility] Comment on above: Performed By: #### A NARF #### [facility] [address] [place] [address] Dr. David Cannon Basophils/100 WBC (Bld) 0.3 % Normal 0.2-2.0 [facility] Comment on above: Performed By: #### A NARF #### [facility] [address] [place] [address] Dr. David Cannon EO # 0.1 103/ul Normal 0.0-0.7 [facility] Comment on above: Performed By: #### A NARF #### [facility] [address] [place] [address] Dr. David Cannon Eosinophils/100 WBC (Bld) 1.7 % Normal 0.9-7.0 [facility] Comment on above: Performed By: #### A NARF #### [facility] [address] [place] [address] Dr. David Cannon Erythrocyte distribution width (RBC) [Ratio] 12.0 % Normal 11.0-15.0 [facility] Comment on above: Performed By: #### A NARF #### [facility] [address] [place] [address] Dr. David Cannon Hematocrit (Bld) [Volume fraction] 43.9 % Normal 36.0-48.0 [facility] Comment on above: Performed By: #### A NARF #### [facility] [address] [place] [address] Dr. David Cannon Hemoglobin (Bld) [Mass/Vol] 14.0 g/dL Normal 12.0-16.0 [facility] Comment on above: Performed By: #### A NARF #### [facility] [address] [address] [address] David Cannon IG # 0.02 10e3/ul Normal 0.00-0.03 [facility] Comment on above: Performed By: #### A NARF #### [facility] [address] [address] [address] David Cannon IG % 0.3 % Normal 0.0-0.5 [facility] Comment on above: Performed By: #### A NARF #### [facility] [address] [place] [address] Dr. David Cannon LYMPH # 2.0 103/ul Normal 1.2-3.8 [facility] Comment on above: Performed By: #### A NARF #### [facility] [address] [place] [address] Dr. David Cannon Lymphocytes/100 WBC (Bld) 31.7 % Normal 20.5-60.0 [facility] Comment on above: Performed By: #### A NARF #### [facility] [address] [place] [address] Dr. David Cannon MANUAL DIFF REQ NO Normal [facility] Comment on above: Performed By: #### A NARF #### [facility] [address] [place] [address] Dr. David Cannon MCH (RBC) [Entitic mass] 30.8 pg Normal 26.7-34.0 [facility] Comment on above: Performed By: #### A NARF #### [facility] [address] [place] [address] Dr. David Cannon MCHC (RBC) [Mass/Vol] 31.9 g/dL Normal 29.9-35.2 [facility] Comment on above: Performed By: #### A NARF #### [facility] [address] [place] [address] Dr. David Cannon MCV (RBC) [Entitic vol] 96.5 fL Normal 81.0-99.0 [facility] Comment on above: Performed By: #### A NARF #### [facility] [address] [address] [address] David Cannon MONO # 0.4 103/ul Normal 0.3-0.8 [facility] Comment on above: Performed By: #### A NARF #### [facility] [address] [address] [address] David Cannon Monocytes/100 WBC (Bld) 6.2 % Normal 1.7-12.0 [facility] Comment on above: Performed By: #### A NARF #### [facility] [address] [place] [address] Dr. David Cannon NEUT # 3.9 103/ul Normal 1.4-6.5 [facility] Comment on above: Performed By: #### A NARF #### [facility] [address] [place] [address] Dr. David Cannon Neutrophils/100 WBC (Bld) 59.8 % Normal 43.0-75.0 [facility] Comment on above: Performed By: #### A NARF #### [facility] [address] [place] [address] Dr. David Cannon Platelet mean volume (Bld) [Entitic vol] 8.7 fL Critically low 9.5-13.5 [facility] Comment on above: Performed By: #### A NARF #### [facility] [address] [place] [address] Dr. David Cannon PLT 263 103/ul Normal 150-450 [facility] Comment on above: Performed By: #### A NARF #### [facility] [address] [place] [address] Dr. David Cannon RBC 4.55 106/ul Normal 4.20-5.40 [facility] Comment on above: Performed By: #### A NARF #### [facility] [address] [place] [address] Dr. David Cannon WBC 6.4 103/ul Normal 4.0-11.0 [facility] Comment on above: Performed By: #### A NARF #### [facility] [address] [address] [address] David Cannon CRPon 05-29-2022 CRP 0.3 mg/dL Normal <=1.0 [facility] Comment on above: Performed By: #### C RP, CMP ####[facility] [id number] [place], [place] [id number]. David Cannon Complete Blood Count and Dif jin 05-29-2022 Anisocytosis Ql (Bld) [facility] [employer] Other Basophilic stippling LM Ql (Bld) [facility] [employer] Other RBC morphology finding Nom (Bld) [facility] [employer] Other Complete Blood Count and Diff [facility] [employer] Other Comprehensive Metabolic Pane sincere 05-29-2022 Albumin/Globulin [Mass ratio] 0.9 {ratio} Normal [facility] [employer] Other Comment on above: Performed By: #### A NARF #### [facility] [address] [address] [address] David Cannon ALP [Catalytic activity/Vol] 79 U/L Normal 46-116 [facility] [employer] Other Comment on above: Performed By: #### A NARF #### [facility] [address] [address] [address] David Cannon ALT [Catalytic activity/Vol] 20 U/L Normal 14-59 [place] [employer] Other Comment on above: Performed By: #### A NARF #### [facility] [address] [address] [address] David Cannon Anion gap [Moles/Vol] 12.7 mmol/L Normal No rt [employer] Other Comment on above: Performed By: #### A NARF #### [facility] [address] [address] [address] David Cannon AST [Catalytic activity/Vol] 20 U/L Normal 15-37 [employer] Other Comment on above: Performed By: #### A NARF #### [facility] [address] [address] [address] David Cannon Chloride [Moles/Vol] 102 mmol/L Normal 98-107 [facility] [employer] Other Comment on above: Performed By: #### A NARF #### [facility] [address] [address] [address] David Cannon Urea nitrogen/Creatinine [Mass ratio] 29.0 mg/mg Normal [facility] [employer] Other Comment on above: Performed By: #### A NARF #### [facility] [address] [address] [address] David Cannon Albumin [Mass/Vol] 3.455797 g/dL 3.4-5.0 g/dL [facility] [employer] Other Calcium [Mass/Vol] 9.0819959 mg/dL 8.5-10 .1 mg/dL [place] [employer] Other CO2 [Moles/Vol] 31.67623577 mmol/L 21.0-3 2.0 mmol/L [place] [employer] Other Creatinine [Mass/Vol] 0.22541694 mg/dL 0. 55-1.02 mg/dL [employer] Other Potassium [Moles/Vol] 4.09904263 mmol/L 3 .5-5.1 mmol/L [employer] Other Protein [Mass/Vol] 8.176558 g/dL 6.4-8.2 g/dL [facility] [employer] Other Urea nitrogen [Mass/Vol] 18.0017889 mg/dL 7.0-18.0 mg/dL [employer] Other Comprehensive Metabolic Panel see note [employer] Other Comprehensive Metabolic Panel 142 mmol/L 136-145 mmol/L [employer] Other Comprehensive Metabolic Panel 102 mg/dL 74-106 mg/dL [employer] Other Comprehensive Metabolic Panel >60 mL/min/1.73m2 >=60 mL/min/1.73m 2 [employer] Other Comprehensive Metabolic Panel 0.2 mg/dL 0.2-1.0 mg/dL [facility] Other Comprehensive Metabolic Panel 4.3 g/dL [employer] Other PROF 14(COMP METB)on 023 Albumin [Mass/Vol] 3.8 g/dL Normal 3.4-5.0 [facility] Comment on above: Performed By: #### A NARF #### [facility] [address] [place] [address] Dr. David Cannon Bilirubin [Mass/Vol] 0.2 mg/dL Normal 0.2-1.0 [facility] Comment on above: Performed By: #### A NARF #### [facility] [address] [place] [address] Dr. David Cannon Calcium [Mass/Vol] 9.9 mg/dL Normal 8.5-10.[address] [facility] Comment on above: Performed By: #### A NARF #### [facility] [address] [place] [address] Dr. David Cannon CO2 [Moles/Vol] 31.4 mmol/L Normal 21.0-32.0 The [facility] Comment on above: Performed By: #### A NARF #### [facility] [address] [place] [address] Dr. David Cannon Creatinine [Mass/Vol] 0.62 mg/dL Normal 0.55-1.02 [facility] Comment on above: Performed By: #### A NARF #### [facility] [address] [place] [address] Dr. David Cannon EGFR-AF MOSOTHO >60 Normal >=60 [facility] Comment on above: Performed By: #### A NARF #### [facility] [address] [place] [address] Dr. David Cannon EGFR-NON AF MOSOTHO >60 Normal >=60 [facility] Comment on above: Performed By: #### A NARF #### [facility] [address] [place] [address] Dr. David Cannon Globulin (S) [Mass/Vol] 4.3 g/dL Normal [facility] Comment on above: Performed By: #### A NARF #### [facility] [address] [address] [address] David Cannon Glucose [Mass/Vol] 102 mg/dL Normal 74-106 [facility] Comment on above: Performed By: #### A NARF #### [facility] [address] [place] [address] Dr. David Cannon Potassium [Moles/Vol] 4.1 mmol/L Normal 3.5-5.1 [facility] Comment on above: Performed By: #### A NARF #### [facility] [address] [place] [address] Dr. David Cannon Protein [Mass/Vol] 8.1 g/dL Normal 6.4-8.[address] [facility] Comment on above: Performed By: #### A NARF #### [facility] [address] [place] [address] Dr. David Cannon Sodium [Moles/Vol] 142 mmol/L Normal 136-[address] [facility] Comment on above: Performed By: #### A NARF #### [facility] [address] [place] [address] Dr. David Cannon Urea nitrogen [Mass/Vol] 18.0 mg/dL Normal 7.0-18.0 [facility] Comment on above: Performed By: #### A NARF #### [facility] [address] [place] [address] Dr. David Cannon UA RANDOM W/MICROSCOPICon AMORPHOUS CRYSTALS RARE Normal The [facility] Comment on above: Performed By: #### B MP, TSH #### [facility] [address] [place] [address] Dr. David Cannon BACTERIA NONE SEEN Normal NONE SEEN [facility] Comment on above: Performed By: #### B MP, TSH #### [facility] [address] [place] [address] Dr. David Cannon Bilirubin Ql (U) Negative Normal NEGATIVE [facility] [employer] Other Comment on above: Performed By: #### B MP, TSH #### [facility] [address] [place] [address] Dr. David Cannon CAST NONE SEEN Normal NONE SEEN [facility] Comment on above: Performed By: #### B MP, TSH #### [facility] [address] [place] [address] Dr. David Cannon Clarity (U) CLEAR Normal CLEAR [employer] Other Comment on above: Performed By: #### B MP, TSH #### [facility] [address] [place] [address] Dr. David Cannon Color (U) LT. YELLOW Normal YELLOW [employer] Other Comment on above: Performed By: #### B MP, TSH #### [facility] [address] [place] [address] Dr. David Cannon Crystals LM Nom (Urine sed) SEEN Abnormal NONE SEEN [facility] Comment on above: Performed By: #### B MP, TSH #### [facility] [address] [place] [address] Dr. David Cannon Epithelial cells LM Ql (Urine sed) RARE Normal NONE SEEN /RARE [facility] Comment on above: Performed By: #### B MP, TSH #### [facility] [address] [place] [address] Dr. David Cannon Glucose Ql (U) Negative Normal NEGATIVE [employer] Other Comment on above: Performed By: #### B MP, TSH #### [facility] [address] [place] [address] Dr. David Cannon Hemoglobin Ql (U) Negative Normal NEGATIVE [employer] Other Comment on above: Performed By: #### B MP, TSH #### [facility] [address] [place] [address] Dr. David Cannon Ketones Ql (U) Negative Normal NEGATIVE [employer] Other Comment on above: Performed By: #### B MP, TSH #### [facility] [address] [place] [address] Dr. Daivd Cannon LEUKOCYTES Negative Normal NEGATIVE [facility] Comment on above: Performed By: #### B MP, TSH #### [facility] [address] [place] [address] Dr. David Cannon MUCOUS NONE SEEN Normal NONE SEEN [facility] Comment on above: Performed By: #### B MP, TSH #### [facility] [address] [place] [address] Dr. David Cannon Nitrite Ql (U) Negative Normal NEGATIVE [employer] Other Comment on above: Performed By: #### B MP, TSH #### [facility] [address] [place] [address] Dr. David Cannon pH (U) 7.0 [pH] Normal 5-9 [employer] Other Comment on above: Performed By: #### B MP, TSH #### [facility] [address] [place] [address] Dr. David Cannon RBC 0-2 Normal 0-2 [facility] Comment on above: Performed By: #### B MP, TSH #### [facility] [address] [place] [address] Dr. David Cannon SPEC GRAVITY 1.020 Normal 1.005-<=1.02 5 [facility] Comment on above: Performed By: #### B MP, TSH #### [facility] [address] [place] [address] Dr. David Cannno UA PROTEIN Negative Normal NEGATIVE/ TRACE [facility] Comment on above: Performed By: #### B MP, TSH #### [facility] [address] [place] [address] Dr. David Cannon Urobilinogen Qn (U) 0.2 {Skip'U}/dL Normal 0.2 - 1. 0 [facility] Comment on above: Performed By: #### B MP, TSH #### [facility] [address] [address] [address] David Cannon WBC NONE SEEN Normal NONE SEEN [facility] Comment on above: Performed By: #### B MP, TSH #### [facility] [address] [address] [address] David Cannon Crystals LM Nom (Urine sed) SEEN #/HPF Abnormal NONE SEEN #/HPF [employer] Other Epithelial cells LM Ql (Urine sed) RARE #/LPF NONE SEEN /RARE #/LPF [employer] Other UA RANDOM W/MICROSCOPIC 1.020 1.00 5-<=1.02 5 [employer] Other UA RANDOM W/MICROSCOPIC Negative NEGATIVE N [employer] Other UA RANDOM W/MICROSCOPIC 0.2 EU/dl 0.2 - 1.0 EU/dl [employer] Other UA RANDOM W/MICROSCOPIC NONE SEEN #/HPF N ONE SEEN #/HPF [employer] Other UA RANDOM W/MICROSCOPIC 0-2 #/HPF 0-2 #/HPF N [employer] Other UA RANDOM W/MICROSCOPIC NONE SEEN #/LPF N ONE SEEN #/LPF [employer] Other UA RANDOM W/MICROSCOPIC NONE SEEN NONE SEEN N [employer] Other UA RANDOM W/MICROSCOPIC RARE N [employer] Other CULTURE URINEon 04-13-2022 CULTURE URINE Isolate 1 Escherichia coli >100,000 cfu/ ml of ORGANISM 1 Escherichia coli ANTIBIOTIC M.I.C RX STATUS Ampicillin >=32 R F Ampicillin/Sulbacta m >=32 R F Piperacillin/Tazoba ctam <=4 S F Cefazolin <=4 S F Ceftazidime <=1 S F Ceftriaxone <=1 S F Ertapenem <=0.5 S F Imipenem <=0.25 S F Amikacin <=2 S F Gentamicin <=1 S F Tobramycin <=1 S F Ciprofloxacin <=0.25 S F Levofloxacin <=0.12 S F Nitrofurantoin <=16 S F Trimethoprim/Sulfam ethoxazole <=20 S F Normal [facility] Comment on above: Performed By: #### U RCX ####[facility] [id number] [address]Dr. David Cannon VAGINITIS/VAGINOSIS DNA PROB Hugo 04-12-2022 Susan species Negative Normal Negative [facility] Comment on above: Performed By: #### B NILSA, TSH #### [facility] [address] [place] [address] Dr. David Cannon Gardnerella vaginalis Negative Normal Negative [facility] Comment on above: Performed By: #### B NILSA, TSH #### [facility] [address] [place] [address] Dr. David Cannon Trichomonas vaginalis Negative Normal Negative [facility] Comment on above: Performed By: #### B NILSA, TSH #### [facility] [address] [place] [address] Dr. David Cannon BNPon 02-24-2022 Natriuretic peptide B (Bld) [Mass/Vol] 173.0 pg/mL Normal <=900.0 [facility] Comment on above: Performed By: #### B NILSA, TSH #### [facility] [address] [place] [address] Dr. David Cannon CARDIAC WAI 3-6on 2 CK [Catalytic activity/Vol] 47 U/L Normal 26-192 [facility] Comment on above: Performed By: #### B NILSA, TSH #### [facility] [address] [place] [address] Dr. David Cannon CK.MB [Mass/Vol] ng/mL Normal <=3.60 [facility] Comment on above: Performed By: #### B NILSA, TSH #### [facility] [address] [place] [address] Dr. David Cannon HSTROP 7.0 pg/mL Normal 4.0-51.3 [facility] Comment on above: Result Comment: CUT- OFF POINTS HAVE BEEN ESTABLISHED BASED ON THE FOURTH UNIVERSAL DEFINITIONS OF MYOCARDIAL INFARCTION. THE UPPER REFERENCE LIMIT (URL) OF TROPONIN, DEFINED THE 99TH PERCENTILE OF cTnI DISTRIBUTION IN A REFERENCE POPULATION, HAS BEEN CONFIRMED THE DECISION THRESHOLD FOR [place] DIAGNOSIS. Performed By: #### B NILSA, TSH #### [facility] [address] [address] [address] David Cannon CK [Catalytic activity/Vol] 44 U/L Normal 26-192 [facility] Comment on above: Performed By: #### B NILSA, TSH #### [facility] [address] [address] [address] David Cannon CK.MB [Mass/Vol] ng/mL Normal <=3.60 [facility] Comment on above: Performed By: #### B NILSA, TSH #### [facility] [address] [address] [address] David Cannon HSTROP 5.3 pg/mL Normal 4.0-51.3 [facility] Comment on above: Result Comment: CUT- OFF POINTS HAVE BEEN ESTABLISHED BASED ON THE FOURTH UNIVERSAL DEFINITIONS OF MYOCARDIAL INFARCTION. THE UPPER REFERENCE LIMIT (URL) OF TROPONIN, DEFINED THE 99TH PERCENTILE OF cTnI DISTRIBUTION IN A REFERENCE POPULATION, HAS BEEN CONFIRMED THE DECISION THRESHOLD FOR [place] DIAGNOSIS. Performed By: #### B NILSA, TSH #### [facility] [address] [address] [address] David Cannon CBC AUTO DIFFon 02-24-2022 BASO # 0.0 103/ul Normal 0.0-0.1 [facility] Comment on above: Performed By: #### C BC #### [facility] [address] [address] [address] David Cannon Basophils/100 WBC (Bld) 0.3 % Normal 0.2-2.0 [facility] Comment on above: Performed By: #### C BC #### [facility] [address] [address] [address] David Cannon EO # 0.2 103/ul Normal 0.0-0.7 [facility] Comment on above: Performed By: #### C BC #### [facility] [address] [place] [address] Dr. David Cannon Eosinophils/100 WBC (Bld) 2.6 % Normal 0.9-7.0 [facility] Comment on above: Performed By: #### C BC #### [facility] [address] [place] [address] Dr. David Cannon Erythrocyte distribution width (RBC) [Ratio] 12.1 % Normal 11.0-15.0 [facility] Comment on above: Performed By: #### C BC #### [facility] [address] [place] [address] Dr. David Cannon Hematocrit (Bld) [Volume fraction] 39.9 % Normal 36.0-48.0 [facility] Comment on above: Performed By: #### C BC #### [facility] [address] [place] [address] Dr. David Cannon Hemoglobin (Bld) [Mass/Vol] 13.2 g/dL Normal 12.0-16.0 [facility] Comment on above: Performed By: #### C BC #### [facility] [address] [place] [address] Dr. David Cannon IG # 0.01 10e3/ul Normal 0.00-0.03 [facility] Comment on above: Performed By: #### C BC #### [facility] [address] [place] [address] Dr. David Cannon IG % 0.2 % Normal 0.0-0.5 [facility] Comment on above: Performed By: #### C BC #### [facility] [address] [place] [address] Dr. David Cannon LYMPH # 2.8 103/ul Normal 1.2-3.8 [facility] Comment on above: Performed By: #### C BC #### [facility] [address] [place] [address] Dr. David Cannon Lymphocytes/100 WBC (Bld) 48.1 % Normal 20.5-60.0 [facility] Comment on above: Performed By: #### C BC #### [facility] [address] [place] [address] Dr. David Cannon MANUAL DIFF REQ NO Normal [facility] Comment on above: Performed By: #### C BC #### [facility] [address] [place] [address] Dr. David Cannon MCH (RBC) [Entitic mass] 31.6 pg Normal 26.7-34.0 [facility] Comment on above: Performed By: #### C BC #### [facility] [address] [place] [address] Dr. David Cannon MCHC (RBC) [Mass/Vol] 33.1 g/dL Normal 29.9-35.2 [facility] Comment on above: Performed By: #### C BC #### [facility] [address] [place] [address] Dr. David Cannon MCV (RBC) [Entitic vol] 95.5 fL Normal 81.0-99.0 [facility] Comment on above: Performed By: #### C BC #### [facility] [address] [place] [address] Dr. David Cannon MONO # 0.4 103/ul Normal 0.3-0.8 [facility] Comment on above: Performed By: #### C BC #### [facility] [address] [place] [address] Dr. David Cannon Monocytes/100 WBC (Bld) 6.1 % Normal 1.7-12.0 [facility] Comment on above: Performed By: #### C BC #### [facility] [address] [place] [address] Dr. David Cannon NEUT # 2.5 103/ul Normal 1.4-6.5 [facility] Comment on above: Performed By: #### C BC #### [facility] [address] [place] [address] Dr. David Cannon Neutrophils/100 WBC (Bld) 42.7 % Critically low 43.0-75.0 [facility] Comment on above: Performed By: #### C BC #### [facility] [address] [address] [address] David Cannon Platelet mean volume (Bld) [Entitic vol] 8.7 fL Critically low 9.5-13.5 [facility] Comment on above: Performed By: #### C BC #### [facility] [address] [place] [address] Dr. David Cannon PLT 166 103/ul Normal 150-450 [facility] Comment on above: Performed By: #### C BC #### [facility] [address] [place] [address] Dr. David Cannon RBC 4.18 106/ul Critically low 4.20-5.40 [facility] Comment on above: Performed By: #### C BC #### [facility] [address] [place] [address] Dr. David Cannon WBC 5.7 103/ul Normal 4.0-11.0 [facility] Comment on above: Performed By: #### C BC #### [facility] [address] [place] [address] Dr. David Cannon PROF 14(COMP METB)on 02-24- 022 Albumin [Mass/Vol] 3.4 g/dL Normal 3.4-5.0 [facility] Comment on above: Performed By: #### B MP, TSH #### [facility] [address] [place] [address] Dr. David Cannon Albumin/Globulin [Mass ratio] 1.2 {ratio} Normal [facility] Comment on above: Performed By: #### B MP, TSH #### [facility] [address] [place] [address] Dr. David Cannon ALP [Catalytic activity/Vol] 60 U/L Normal 46-116 [facility] Comment on above: Performed By: #### B MP, TSH #### [facility] [address] [place] [address] Dr. David Cannon ALT [Catalytic activity/Vol] 16 U/L Normal 14-59 [facility] Comment on above: Performed By: #### B MP, TSH #### [facility] [address] [address] [address] David Cannon Anion gap [Moles/Vol] 10.5 mmol/L Normal [facility] Comment on above: Performed By: #### B MP, TSH #### [facility] [address] [address] [address] David Cannon AST [Catalytic activity/Vol] 17 U/L Normal 15-37 [facility] Comment on above: Performed By: #### B MP, TSH #### [facility] [address] [address] [address] David Cannon Bilirubin [Mass/Vol] 0.4 mg/dL Normal 0.2-1.0 [facility] Comment on above: Performed By: #### B MP, TSH #### [facility] [address] [address] [address] David Cannon Calcium [Mass/Vol] 8.8 mg/dL Normal 8.5-10.1 [facility] Comment on above: Performed By: #### B MP, TSH #### [facility] [address] [address] [address] David Cannon Chloride [Moles/Vol] 106 mmol/L Normal 98-107 [facility] Comment on above: Performed By: #### B MP, TSH #### [facility] [address] [address] [address] David Cannon CO2 [Moles/Vol] 28.4 mmol/L Normal 21.0-32.0 [facility] Comment on above: Performed By: #### B MP, TSH #### [facility] [address] [address] [address] David Cannon Creatinine [Mass/Vol] 0.61 mg/dL Normal 0.55-1.02 [facility] Comment on above: Performed By: #### B MP, TSH #### [facility] [address] [address] [address] David Cannon EGFR-AF MOSOTHO >60 Normal >=60 [facility] Comment on above: Performed By: #### B MP, TSH #### [facility] [address] [address] [address] David Cannon EGFR-NON AF MOSOTHO >60 Normal >=60 [facility] Comment on above: Performed By: #### B MP, TSH #### [facility] [address] [address] [address] David Cannon Globulin (S) [Mass/Vol] 2.9 g/dL Normal [facility] Comment on above: Performed By: #### B MP, TSH #### [facility] [address] [address] [address] David Cannon Glucose [Mass/Vol] 79 mg/dL Normal 74-106 [facility] Comment on above: Performed By: #### B MP, TSH #### [facility] [address] [address] [address] David Cannon Potassium [Moles/Vol] 3.9 mmol/L Normal 3.5-5.1 [facility] Comment on above: Performed By: #### B MP, TSH #### [facility] [address] [address] [address] David Cannon Protein [Mass/Vol] 6.3 g/dL Critically low 6.4-8.2 [facility] Comment on above: Performed By: #### B MP, TSH #### [facility] [address] [address] [address] David Cannon Sodium [Moles/Vol] 141 mmol/L Normal 136-[address] [facility] Comment on above: Performed By: #### B MP, TSH #### [facility] [address] [address] [address] David Cannon Urea nitrogen [Mass/Vol] 8.0 mg/dL Normal 7.0-18.0 [facility] Comment on above: Performed By: #### B MP, TSH #### [facility] [address] [address] [address] David Cannon Urea nitrogen/Creatinine [Mass ratio] 13.1 mg/mg Normal [facility] Comment on above: Performed By: #### B NILSA, TSH #### [facility] [address] [address] [address] David Cannon BNPon 02-23-2022 Natriuretic peptide B (Bld) [Mass/Vol] 124.0 pg/mL Normal <=900.0 [facility] Comment on above: Performed By: #### A NARF #### [facility] [address] [address] [address] David Cannon CARDIAC WAI 3-6on 2 CK [Catalytic activity/Vol] 44 U/L Normal 26-192 [facility] Comment on above: Performed By: #### B NILSA, TSH #### [facility] [address] [address] [address] David Cannon CK.MB [Mass/Vol] ng/mL Normal <=3.60 [facility] Comment on above: Result Comment: Prev iously reported as: 0.30 On 02/23/2022 20:39 By JAW Performed By: #### B NILSA, TSH #### [facility] [address] [place] [address] Dr. David Cannon HSTROP 6.1 pg/mL Normal 4.0-51.3 [facility] Comment on above: Result Comment: CUT- OFF POINTS HAVE BEEN ESTABLISHED BASED ON THE FOURTH UNIVERSAL DEFINITIONS OF MYOCARDIAL INFARCTION. THE UPPER REFERENCE LIMIT (URL) OF TROPONIN, DEFINED THE 99TH PERCENTILE OF cTnI DISTRIBUTION IN A REFERENCE POPULATION, HAS BEEN CONFIRMED THE DECISION THRESHOLD FOR [place] DIAGNOSIS. Performed By: #### B NILSA, TSH #### [facility] [address] [address] [address] David Cannon CK [Catalytic activity/Vol] 45 U/L Normal 26-192 [facility] Comment on above: Performed By: #### C MREP ####[facility] [address] [address]Dr[address] David Cannon CK.MB [Mass/Vol] ng/mL Normal <=3.60 [facility] Comment on above: Performed By: #### C MREP ####[facility] [address] [id number] David Cannon HSTROP 5.7 pg/mL Normal 4.0-51.3 [facility] Comment on above: Result Comment: CUT- OFF POINTS HAVE BEEN ESTABLISHED BASED ON THE FOURTH UNIVERSAL DEFINITIONS OF MYOCARDIAL INFARCTION. THE UPPER REFERENCE LIMIT (URL) OF TROPONIN, DEFINED THE 99TH PERCENTILE OF cTnI DISTRIBUTION IN A REFERENCE POPULATION, HAS BEEN CONFIRMED THE DECISION THRESHOLD FOR [place] DIAGNOSIS. Performed By: #### C MREP ####[facility] [address] [address]Dr. David Cannon CBC AUTO DIFFon 02-23-2022 BASO # 0.0 103/ul Normal 0.0-0.1 [facility] Comment on above: Performed By: #### B MP, TSH #### [facility] [address] [address] [address] David Cannon Basophils/100 WBC (Bld) 0.7 % Normal 0.2-2.0 [facility] Comment on above: Performed By: #### B MP, TSH #### [facility] [address] [address] [address] David Cannon EO # 0.1 103/ul Normal 0.0-0.7 [facility] Comment on above: Performed By: #### B MP, TSH #### [facility] [address] [address] [address] David Cannon Eosinophils/100 WBC (Bld) 1.1 % Normal 0.9-7.0 [facility] Comment on above: Performed By: #### B MP, TSH #### [facility] [address] [address] [address] David Cannon Erythrocyte distribution width (RBC) [Ratio] 12.2 % Normal 11.0-15.0 [facility] Comment on above: Performed By: #### B MP, TSH #### [facility] [address] [address] [address] David Cannon Hematocrit (Bld) [Volume fraction] 43.4 % Normal 36.0-48.0 [facility] Comment on above: Performed By: #### B MP, TSH #### [facility] [address] [place] [address] Dr. David Cannon Hemoglobin (Bld) [Mass/Vol] 14.4 g/dL Normal 12.0-16.0 [facility] Comment on above: Performed By: #### B MP, TSH #### [facility] [address] [place] [address] Dr. David Cannon IG # 0.01 10e3/ul Normal 0.00-0.03 [facility] Comment on above: Performed By: #### B MP, TSH #### [facility] [address] [place] [address] Dr. David Cannon IG % 0.2 % Normal 0.0-0.5 [facility] Comment on above: Performed By: #### B MP, TSH #### [facility] [address] [place] [address] Dr. David Cannon LYMPH # 1.5 103/ul Normal 1.2-3.8 [facility] Comment on above: Performed By: #### B MP, TSH #### [facility] [address] [place] [address] Dr. David Cannon Lymphocytes/100 WBC (Bld) 32.7 % Normal 20.5-60.0 [facility] Comment on above: Performed By: #### B MP, TSH #### [facility] [address] [place] [address] Dr. David Cannon MANUAL DIFF REQ NO Normal [facility] Comment on above: Performed By: #### B MP, TSH #### [facility] [address] [place] [address] Dr. David Cannon MCH (RBC) [Entitic mass] 31.4 pg Normal 26.7-34.0 [facility] Comment on above: Performed By: #### B MP, TSH #### [facility] [address] [place] [address] Dr. David Cannon MCHC (RBC) [Mass/Vol] 33.2 g/dL Normal 29.9-35.2 [facility] Comment on above: Performed By: #### B MP, TSH #### [facility] [address] [address] [address] David Cannon MCV (RBC) [Entitic vol] 94.8 fL Normal 81.0-99.0 [facility] Comment on above: Performed By: #### B MP, TSH #### [facility] [address] [place] [address] Dr. David Canonn MONO # 0.3 103/ul Normal 0.3-0.8 [facility] Comment on above: Performed By: #### B MP, TSH #### [facility] [address] [place] [address] Dr. David Cannon Monocytes/100 WBC (Bld) 5.9 % Normal 1.7-12.0 [facility] Comment on above: Performed By: #### B MP, TSH #### [facility] [address] [place] [address] Dr. David Cannon NEUT # 2.6 103/ul Normal 1.4-6.5 [facility] Comment on above: Performed By: #### B MP, TSH #### [facility] [address] [place] [address] Dr. David Cannon Neutrophils/100 WBC (Bld) 59.4 % Normal 43.0-75.0 [facility] Comment on above: Performed By: #### B MP, TSH #### [facility] [address] [place] [address] Dr. David Cannon Platelet mean volume (Bld) [Entitic vol] 8.6 fL Critically low 9.5-13.5 [facility] Comment on above: Performed By: #### B MP, TSH #### [facility] [address] [place] [address] Dr. David Cannon PLT 200 103/ul Normal 150-450 [facility] Comment on above: Performed By: #### B MP, TSH #### [facility] [address] [place] [address] Dr. David Cannon RBC 4.58 106/ul Normal 4.20-5.40 [facility] Comment on above: Performed By: #### B MP, TSH #### [facility] [address] [address] [address] David Cannon WBC 4.4 103/ul Normal 4.0-11.0 [facility] Comment on above: Performed By: #### B MP, TSH #### [facility] [address] [address] [address] David Cannon Covid-19 PCR ([facility])on 02-09 SARS-CoV-2 (COVID-19) RNA JOSH+probe Ql (Unsp spec) Not detected Normal NOT DETECTED [facility] Comment on above: Result Comment: When diagnostic testing is negative, the possibility of a false negative should be considered in the context of a patient's recent exposures and the presence of clinical signs and symptoms consistent with SARS-CoV-2. This test is not yet approved or cleared by the [place] FDA. When there are no FDA-approved or cleared tests available, and other criteria are met, FDA can make tests available under an emergency access mechanism called an Emergency Use Authorization (EUA). The EUA for this test is supported by the [employer] of Health and Human Service's declaration that circumstances exist to justify the emergency use of in vitro diagnostics for the detection and/or diagnosis of the virus that causes COVID-19. This EUA will remain in effect for the duration of the COVID-19 declaration justifying emergency of IVDs, unless it is terminated or revoked by the FDA (after which the test may no longer be used). Performed By: #### C VDTBH ####[facility] [address] [address]Dr. David Cannon LIPASEon 02-23-2022 Lipase [Catalytic activity/Vol] 85.0 U/L Normal 73.0-393.0 [facility] Comment on above: Performed By: #### A NARF #### [facility] [id number] David Cannon PROF 14(COMP METB)on 022 Albumin [Mass/Vol] 4.2 g/dL Normal 3.4-5.0 [facility] Comment on above: Performed By: #### A NARF #### [facility] [address] [address] [address] David Cannon Albumin/Globulin [Mass ratio] 1.2 {ratio} Normal [facility] Comment on above: Performed By: #### A NARF #### [facility] [address] [address] [address] David Cannon ALP [Catalytic activity/Vol] 67 U/L Normal 46-116 [facility] Comment on above: Performed By: #### A NARF #### [facility] [address] [address] [address] David Cannon ALT [Catalytic activity/Vol] 19 U/L Normal 14-59 [facility] Comment on above: Performed By: #### A NARF #### [facility] [address] [place] [address] Dr. David Cannon Anion gap [Moles/Vol] 15.1 mmol/L Normal [facility] Comment on above: Performed By: #### A NARF #### [facility] [address] [place] [address] Dr. David Cannon AST [Catalytic activity/Vol] 18 U/L Normal 15-37 [facility] Comment on above: Performed By: #### A NARF #### [facility] [address] [place] [address] Dr. David Cannon Bilirubin [Mass/Vol] 0.3 mg/dL Normal 0.2-1.0 [facility] Comment on above: Performed By: #### A NARF #### [facility] [address] [place] [address] Dr. David Cannon Calcium [Mass/Vol] 9.7 mg/dL Normal 8.5-10.1 [facility] Comment on above: Performed By: #### A NARF #### [facility] [address] [place] [address] Dr. David Cannon Chloride [Moles/Vol] 103 mmol/L Normal 98-107 [facility] Comment on above: Performed By: #### A NARF #### [facility] [address] [address] [address] David Cannon CO2 [Moles/Vol] 29.0 mmol/L Normal 21.0-32.0 [facility] Comment on above: Performed By: #### A NARF #### [facility] [address] [address] [address] David Cannon Creatinine [Mass/Vol] 0.67 mg/dL Normal 0.55-1.02 [facility] Comment on above: Performed By: #### A NARF #### [facility] [address] [place] [address] Dr. David Cannon EGFR-AF MOSOTHO >60 Normal >=60 [facility] Comment on above: Performed By: #### A NARF #### [facility] [address] [place] [address] Dr. David Cannon EGFR-NON AF MOSOTHO >60 Normal >=60 [facility] Comment on above: Performed By: #### A NARF #### [facility] [address] [place] [address] Dr. David Cannon Globulin (S) [Mass/Vol] 3.6 g/dL Normal [facility] Comment on above: Performed By: #### A NARF #### [facility] [address] [place] [address] Dr. David Cannon Glucose [Mass/Vol] 130 mg/dL Critically high 74-106 [facility] Comment on above: Performed By: #### A NARF #### [facility] [address] [place] [address] Dr. David Cannon Potassium [Moles/Vol] 4.1 mmol/L Normal 3.5-5.1 [facility] Comment on above: Performed By: #### A NARF #### [facility] [address] [place] [address] Dr. David Cannon Protein [Mass/Vol] 7.8 g/dL Normal 6.4-8.2 [facility] Comment on above: Performed By: #### A NARF #### [facility] [address] [place] [address] Dr. David Cannon Sodium [Moles/Vol] 143 mmol/L Normal 136-145 [facility] Comment on above: Performed By: #### A NARF #### [facility] [address] [place] [address] Dr. David Cannon Urea nitrogen [Mass/Vol] 11.0 mg/dL Normal 7.0-18.0 [facility] Comment on above: Performed By: #### A NARF #### [facility] [address] [place] [address] Dr. David Cannon Urea nitrogen/Creatinine [Mass ratio] 16.4 mg/mg Normal [facility] Comment on above: Performed By: #### A NARF #### [facility] [address] [place] [address] Dr. David Cannon PROTIMEon 02-23-2022 INR Coag (PPP) [Relative time] {INR} Normal [facility] Comment on above: Performed By: #### B MP, TSH #### [facility] [address] [place] [address] Dr. David Cannon INR GUIDELINES SEE BELOW Normal [place] Comment on above: Result Comment: SURY RED INR: 2.0 - 3.0 CONDITIONS NOT LISTED BELOW 2.5 - 3.5 FOR PROSTHETIC HEART VALVE REPLACEMENT 2.5 - 3.5 RECURRENT THROMBOSIS Performed By: #### B MP, TSH #### [facility] [address] [place] [address] Dr. David Cannon PT Coag (PPP) [Time] 10.0 s Normal 9.0-11.6 [facility] Comment on above: Performed By: #### B MP, TSH #### [facility] [address] [place] [address] Dr. David Cannon PTTon 02-23-2022 aPTT Coag (Bld) [Time] 25.4 s Normal 22.3-36.2 [facility] Comment on above: Performed By: #### B MP, TSH #### [facility] [address] [place] [address] Dr. David Cannon TROPONIN, HIGH SENSITIVITYon 02-23-2022 HSTROP 6.0 pg/mL Normal 4.0-51.3 [facility] Comment on above: Result Comment: CUT- OFF POINTS HAVE BEEN ESTABLISHED BASED ON THE FOURTH UNIVERSAL DEFINITIONS OF MYOCARDIAL INFARCTION. THE UPPER REFERENCE LIMIT (URL) OF TROPONIN, DEFINED THE 99TH PERCENTILE OF cTnI DISTRIBUTION IN A REFERENCE POPULATION, HAS BEEN CONFIRMED THE DECISION THRESHOLD FOR [place] DIAGNOSIS. Performed By: #### A TUBA [facility] #### [facility] [address] [address] [address] David Cannon XR CHEST 1 Von 02-23-2022 XR CHEST 1 V EXAM: XR CHEST 1 V at 1542 hours HISTORY: CHEST PAIN, UNSPECIFIED intermittent for the past 2 days COMPARISON: 06/21/2021 TECHNIQUE: AP upright portable chest x-ray FINDINGS: The patient is rotated slightly to the right. The heart is not enlarged and the vasculature is not distended. No acute infiltrate, effusion or pneumothorax is readily identified. Diffuse osteopenia is noted with scoliosis of the spine and kyphoplasties. Surgical clips project over the left lung base. IMPRESSION: No acute infiltrate or evidence of overt cardiac decompensation. The overall appearance of the chest is unchanged. Electronically authenticated by: LONI SALAS Date: 2022-02-23 16:[address] [facility] [address] ABD/PELV W CONon 01-08-20 CT ABD/PELV W CON EXAMINATION: CT ABD/PELV W CON HISTORY: Generalized abdominal pain COMPARISON: 10/16/2021 TECHNIQUE: CT of abdomen and pelvis with intravenous contrast Dose reduction techniques were achieved by using automated exposure control and/or adjustment of mA and/or kV according to patient size and/or use of iterative reconstruction technique. FINDINGS: TUBES AND IMPLANTS: None. LOWER CHEST: Moderate hiatal hernia containing the gastric cardia and fundus ABDOMEN and PELVIS ABDOMINAL WALL AND SOFT TISSUES: Unremarkable. BONES: Osteopenia. No suspicious lesions. Multilevel degenerative changes of the spine. Status post vertebroplasty/kyph oplasty changes of L2. Stable compression deformity of L5. ARTERIES: Mild aortoiliac calcification without aneurysm. VEINS: Left retroaortic renal vein LYMPH NODES: Unremarkable. PERITONEUM/ RETROPERITONEUM: Unremarkable. BOWEL: No obstruction APPENDIX: Not identified. LIVER: No focal lesions GALLBLADDER: Unremarkable. BILE DUCTS: Not dilated SPLEEN: Unremarkable. PANCREAS: Stable prominence of the pancreatic duct without discrete mass. Subcentimeter cystic lesion seen within the uncinate process with punctate calcification. ADRENALS: Unremarkable. KIDNEYS/ URETERS: Unremarkable. REPRODUCTIVE ORGANS: Uterus is surgically absent. URINARY BLADDER: Mildly filled IMPRESSION: 1. No evidence of acute intraabdominal or intrapelvic process. 2. Moderate hiatal hernia containing the gastric cardia and fundus. 3. Stable prominence of the pancreatic duct without discrete mass. Subcentimeter cystic lesion seen within the uncinate process with punctate calcification. [address] follow-up can be considered as clinically warranted. 4. Other chronic findings as described above. Electronically authenticated by: CHAIM MEZA Date: 2022-01-06 22:12 Normal [facility] AMYLASEon 01-06-2022 Amylase [Catalytic activity/Vol] 34 U/L Normal 25-115 [facility] Comment on above: Performed By: #### C MP, ELAINE ####[facility] [address] [address]Dr. David Cannon CBC AUTO DIFFon 01-06-2022 BASO # 0.0 103/ul Normal 0.0-0.1 [facility] Comment on above: Performed By: #### A NARF #### [facility] [address] [address] [address] David Cannon Basophils/100 WBC (Bld) 0.5 % Normal 0.2-2.0 [facility] Comment on above: Performed By: #### A NARF #### [facility] [address] [address] [address] David Cannon EO # 0.1 103/ul Normal 0.0-0.7 [facility] Comment on above: Performed By: #### A NARF #### [facility] [address] [address] [address] David Cannon Eosinophils/100 WBC (Bld) 1.4 % Normal 0.9-7.0 [facility] Comment on above: Performed By: #### A NARF #### [facility] [address] [address] [address] David Cannon Erythrocyte distribution width (RBC) [Ratio] 12.0 % Normal 11.0-15.0 [facility] Comment on above: Performed By: #### A NARF #### [facility] [address] [place] [address] Dr. David Cannon Hematocrit (Bld) [Volume fraction] 44.6 % Normal 36.0-48.0 [facility] Comment on above: Performed By: #### A NARF #### [facility] [address] [place] [address] Dr. David Cannon Hemoglobin (Bld) [Mass/Vol] 14.5 g/dL Normal 12.0-16.0 [facility] Comment on above: Performed By: #### A NARF #### [facility] [address] [place] [address] Dr. David Cannon IG # 0.01 10e3/ul Normal 0.00-0.03 [facility] Comment on above: Performed By: #### A NARF #### [facility] [address] [place] [address] Dr. David Cannon IG % 0.2 % Normal 0.0-0.5 [facility] Comment on above: Performed By: #### A NARF #### [facility] [address] [place] [address] Dr. David Cannon LYMPH # 2.5 103/ul Normal 1.2-3.8 [facility] Comment on above: Performed By: #### A NARF #### [facility] [address] [place] [address] Dr. David Cannon Lymphocytes/100 WBC (Bld) 42.6 % Normal 20.5-60.0 [facility] Comment on above: Performed By: #### A NARF #### [facility] [address] [place] [address] Dr. David Cannon MANUAL DIFF REQ NO Normal [facility] Comment on above: Performed By: #### A NARF #### [facility] [address] [place] [address] Dr. David Cannon MCH (RBC) [Entitic mass] 31.6 pg Normal 26.7-34.0 [facility] Comment on above: Performed By: #### A NARF #### [facility] [address] [address] [address] David Cannon MCHC (RBC) [Mass/Vol] 32.5 g/dL Normal 29.9-35.2 [facility] Comment on above: Performed By: #### A NARF #### [facility] [address] [address] [address] David Cannon MCV (RBC) [Entitic vol] 97.2 fL Normal 81.0-99.0 [facility] Comment on above: Performed By: #### A NARF #### [facility] [address] [place] [address] Dr. David Cannon MONO # 0.4 103/ul Normal 0.3-0.8 [facility] Comment on above: Performed By: #### A NARF #### [facility] [address] [address] [address] David Cannon Monocytes/100 WBC (Bld) 5.9 % Normal 1.7-12.0 [facility] Comment on above: Performed By: #### A NARF #### [facility] [address] [place] [address] Dr. David Cannon NEUT # 2.9 103/ul Normal 1.4-6.5 [facility] Comment on above: Performed By: #### A NARF #### [facility] [address] [place] [address] Dr. David Cannon Neutrophils/100 WBC (Bld) 49.4 % Normal 43.0-75.0 [facility] Comment on above: Performed By: #### A NARF #### [facility] [address] [place] [address] Dr. David Cannon Platelet mean volume (Bld) [Entitic vol] 9.1 fL Critically low 9.5-13.5 [facility] Comment on above: Performed By: #### A NARF #### [facility] [address] [place] [address] Dr. David Cannon PLT 257 103/ul Normal 150-450 [facility] Comment on above: Performed By: #### A NARF #### [facility] [address] [address] [address] David Cannon RBC 4.59 106/ul Normal 4.20-5.40 [facility] Comment on above: Performed By: #### A NARF #### [facility] [id number] David Cannon WBC 5.9 103/ul Normal 4.0-11.0 [facility] Comment on above: Performed By: #### A NARF #### [facility] [address] [address] [address] David Cannon D-DIMERon 01-06-2022 D-DIMER 0.67 mg/L FEU Critically high <=0.59 [facility] Comment on above: Performed By: #### D DIM ####[facility] [address] [address]Dr. David Cannon D-DIMER COMMENTS SEE BELOW Normal [facility] Comment on above: Result Comment: Incr eases in D-Dimer concentration observed with thromboembolic events can be variable due to localization, size, and age of the thrombus. Therefore, a thromboembolic event cannot be diagnosed with certainty on the basis of the reference range. D-Dimers may also be elevated for a variety of disorders including: advanced age, , coronary disease, cancer, liver disease, infection, inflammation, hematoma, DIC, trauma, post-surgery, diabetes, thrombolytic or anticoagulant therapy, stress, and generalized hospitalization. Performed By: #### D DIM ####[facility] [address] [address]DrGerry Cannon PROF 14(COMP METB)on 022 Albumin [Mass/Vol] 4.0 g/dL Normal 3.4-5.0 [facility] Comment on above: Performed By: #### C ELAINE ASH ####[facility] [address] [id number] Cannon Albumin/Globulin [Mass ratio] 1.2 {ratio} Normal [facility] Comment on above: Performed By: #### C NILSA, ELAINE ####[facility] [address] [address]Dr. David Cannon ALP [Catalytic activity/Vol] 78 U/L Normal 46-116 [facility] Comment on above: Performed By: #### C MP, ELAINE ####[facility] [address] [address]Dr. David Cannon ALT [Catalytic activity/Vol] 23 U/L Normal 14-59 [facility] Comment on above: Performed By: #### C MP, ELAINE ####[facility] [address] [place], [place] [address]Dr. David Cannon Anion gap [Moles/Vol] 10.8 mmol/L Normal [facility] Comment on above: Performed By: #### C MP, ELAINE ####[facility] [address] [place], [place] [address]Dr. David Cannon AST [Catalytic activity/Vol] 28 U/L Normal 15-37 [facility] Comment on above: Performed By: #### C NILSA, ELAINE ####[facility] [address] [place], [place] [address]Dr. David Cannon Bilirubin [Mass/Vol] 0.3 mg/dL Normal 0.2-1.0 [facility] Comment on above: Performed By: #### C NILSA, ELAINE ####[facility] [address] [place], [place] [address]Dr. David Cannon Calcium [Mass/Vol] 9.1 mg/dL Normal 8.5-10.1 [facility] Comment on above: Performed By: #### C NILSA, ELAINE ####[facility] [address] [place], [place] [address]Dr. Janellbraeden Davis Chloride [Moles/Vol] 102 mmol/L Normal 98-107 [facility] Comment on above: Performed By: #### C MP, ELAINE ####[facility] [address] [place], [place] [address]Dr. David Cannon CO2 [Moles/Vol] 30.3 mmol/L Normal 21.0-32.0 [facility] Comment on above: Performed By: #### C NILSA, ELAINE ####[facility] [address] [address]Dr. David Cannon Creatinine [Mass/Vol] 0.46 mg/dL Critically low 0.55-1.02 [facility] Comment on above: Performed By: #### C MP, ELAINE ####[facility] [address] [address]Dr. David Cannon EGFR-AF MOSOTHO >60 Normal >=60 [facility] Comment on above: Performed By: #### C MP, ELAINE ####[facility] [address] [address]Dr. David Cannon EGFR-NON AF MOSOTHO >60 Normal >=60 [facility] Comment on above: Performed By: #### C MP, ELAINE ####[facility] [address] [address]Dr. David Cannon Globulin (S) [Mass/Vol] 3.4 g/dL Normal [facility] Comment on above: Performed By: #### C NILSA, ELAINE ####[facility] [address] [address]Dr. David Cannon Glucose [Mass/Vol] 111 mg/dL Critically high 74-106 [facility] Comment on above: Performed By: #### C NILSA, ELAINE ####[facility] [address] [address]Dr. David Cannon Potassium [Moles/Vol] 4.1 mmol/L Normal 3.5-5.1 [facility] Comment on above: Performed By: #### C NILSA, ELAINE ####[facility] [address] [address]Dr. David Cannon Protein [Mass/Vol] 7.4 g/dL Normal 6.4-8.[address] [facility] Comment on above: Performed By: #### C MP, ELAINE ####[facility] [address] [address]Dr. David Canonn Sodium [Moles/Vol] 139 mmol/L Normal 136-145 [facility] Comment on above: Performed By: #### C MP, ELAINE ####[facility] [address] [place], [place] [address]Dr. David Davis Urea nitrogen [Mass/Vol] 14.0 mg/dL Normal 7.0-18.0 [facility] Comment on above: Performed By: #### C MP, ELAINE ####[facility] [address] [place], [place] [address]Dr. David Cannon Urea nitrogen/Creatinine [Mass ratio] 30.4 mg/mg Normal [facility] Comment on above: Performed By: #### C MP, ELAINE ####[facility] [address] [place], [place] [address]Dr. Janellbraeden Cannon CBC AUTO DIFFon 11-28-2021 BASO # 0.0 103/ul Normal 0.0-0.1 [facility] Comment on above: Performed By: #### C BC ####[facility] [address] [place], [place] [address]Dr. David Cannon Basophils/100 WBC (Bld) 0.8 % Normal 0.2-2.0 [facility] Comment on above: Performed By: #### C BC ####[facility] [address] [place], [place] [address]Dr. David Cannon EO # 0.1 103/ul Normal 0.0-0.7 [facility] Comment on above: Performed By: #### C BC ####[facility] [address] [place], [place] [address]Dr. David Cannon Eosinophils/100 WBC (Bld) 3.0 % Normal 0.9-7.0 [facility] Comment on above: Performed By: #### C BC ####[facility] [address] [place], [place] [address]Dr. David Cannon Erythrocyte distribution width (RBC) [Ratio] 11.9 % Normal 11.0-15.0 [facility] Comment on above: Performed By: #### C BC ####[facility] [address] [place], [place] [address]Dr. David Cannon Hematocrit (Bld) [Volume fraction] 42.4 % Normal 36.0-48.0 [facility] Comment on above: Performed By: #### C BC ####[facility] [address] [address]DrGerry Macielbraeden Davis Hemoglobin (Bld) [Mass/Vol] 13.3 g/dL Normal 12.0-16.0 [facility] Comment on above: Performed By: #### C BC ####[facility] [address] [address]DrGerry Cannon IG # 0.01 10e3/ul Normal 0.00-0.03 [facility] Comment on above: Performed By: #### C BC ####[facility] [address] [place], [place] [address]DrGerry Cannon IG % 0.3 % Normal 0.0-0.5 [facility] Comment on above: Performed By: #### C BC ####[facility] [address] [place], [place] [address]DrGerry Cannon LYMPH # 1.6 103/ul Normal 1.2-3.8 [facility] Comment on above: Performed By: #### C BC ####[facility] [address] [place], [place] [address]DrGerry Cannon Lymphocytes/100 WBC (Bld) 39.6 % Normal 20.5-60.0 [facility] Comment on above: Performed By: #### C BC ####[facility] [address] [address]DrGerry Cannon MANUAL DIFF REQ NO Normal [facility] Comment on above: Performed By: #### C BC ####[facility] [address] [id number] Cannon MCH (RBC) [Entitic mass] 31.6 pg Normal 26.7-34.0 [facility] Comment on above: Performed By: #### C BC ####[facility] [address] [id number] Cannon MCHC (RBC) [Mass/Vol] 31.4 g/dL Normal 29.9-35.2 [facility] Comment on above: Performed By: #### C BC ####[facility] [address] [address]DrGerry Cannon MCV (RBC) [Entitic vol] 100.7 fL Critically high 81.0-99 .0 [facility] Comment on above: Performed By: #### C BC ####[facility] [address] [address]DrGerry Cannon MONO # 0.4 103/ul Normal 0.3-0.8 [facility] Comment on above: Performed By: #### C BC ####[facility] [address] [address]DrGerry Cannon Monocytes/100 WBC (Bld) 11.2 % Normal 1.7-12.0 [facility] Comment on above: Performed By: #### C BC ####[facility] [address] [place], [place] [address]DrGerry Cannon NEUT # 1.8 103/ul Normal 1.4-6.5 [facility] Comment on above: Performed By: #### C BC ####[facility] [address] [place], [place] [address]DrGerry Cannon Neutrophils/100 WBC (Bld) 45.1 % Normal 43.0-75.0 [facility] Comment on above: Performed By: #### C BC ####[facility] [address] [place], [place] [address]DrGerry Cannon Platelet mean volume (Bld) [Entitic vol] 9.1 fL Critically low 9.5-13.5 [facility] Comment on above: Performed By: #### C BC ####[facility] [address] [place], [place] [address]DrGerry Cannon PLT 177 103/ul Normal 150-450 [facility] Comment on above: Performed By: #### C BC ####[facility] [address] [place], [place] [address]DrGerry Cannon RBC 4.21 106/ul Normal 4.20-5.40 [facility] Comment on above: Performed By: #### C BC ####[facility] [address] [place], [place] [address]Dr. David Cannon WBC 3.9 103/ul Critically low 4.0-11.0 [place] Comment on above: Performed By: #### C BC ####[facility] [address] [place], [place] [address]UuDr. David Cannon CRPon 11-28-2021 CRP [Mass/Vol] mg/L Normal <=1.0 [place] Comment on above: Performed By: #### A NARF #### [facility] [address] [place], [place] [address] Dr. David Cannon XR LSPINE 2_3 VIEWSon 2021 XR LSPINE 2_3 VIEWS EXAMINATION: XR LSPINE 2_3 VIEWS, XR SACRUM_COCCYX HISTORY: History of fall COMPARISON: 10/16/2021 CT exam FINDINGS: BONES: Rotatory levocurvature centered at L3. Kyphoplasty at L2. 40% anterior superior wedge compression fracture of T12. Left superior wedge compression fracture of L5. Minimal degenerative spondylosis. Soqt-oa-atepnzmg facet osteoarthropathy. DISC SPACES: Multilevel disc space narrowing PARASPINOUS: Negative. No paraspinous abnormality is seen. OTHER: Negative. IMPRESSION: Grossly stable from CT exam performed 4 days ago Electronically authenticated by: JANNA LAWTON Date: 2021-10-20 12:06 Normal [facility] CULTURE URINEon 10-18-2021 CULTURE URINE Isolate 1 Escherichia coli >100,000 cfu/mL of ORGANISM 1 Escherichia coli ANTIBIOTIC M.I.C RX STATUS Ampicillin 4 S F Ampicillin/Sulbacta m <=2 S F Piperacillin/Tazoba ctam <=4 S F Cefazolin <=4 S F Ceftazidime <=1 S F Ceftriaxone <=1 S F Ertapenem <=0.5 S F Imipenem <=0.25 S F Amikacin <=2 S F Gentamicin <=1 S F Tobramycin <=1 S F Ciprofloxacin <=0.25 S F Levofloxacin <=0.12 S F Nitrofurantoin <=16 S F Trimethoprim/Sulfam ethoxazole <=20 S F Normal [facility] Comment on above: Performed By: #### U RCX ####[facility] [address] [address]Dr. David Cannon AMYLASEon 10-16-2021 Amylase [Catalytic activity/Vol] 35 U/L Normal 25-115 [facility] Comment on above: Performed By: #### B MP, TSH #### [facility] [address] [address] [address] David Cannon CBC AUTO DIFFon 10-16-2021 BASO # 0.0 103/ul Normal 0.0-0.1 [facility] Comment on above: Performed By: #### C BC ####[facility] [address] [address]DrGerry Cannon Basophils/100 WBC (Bld) 0.7 % Normal 0.2-2.0 [facility] Comment on above: Performed By: #### C BC ####[facility] [address] [place], [place] [address]DrGerry Cannon EO # 0.1 103/ul Normal 0.0-0.7 [facility] Comment on above: Performed By: #### C BC ####[facility] [address] [address]DrGerry Cannon Eosinophils/100 WBC (Bld) 1.0 % Normal 0.9-7.0 [facility] Comment on above: Performed By: #### C BC ####[facility] [address] [place], [place] [address]DrGerry Cannon Erythrocyte distribution width (RBC) [Ratio] 11.7 % Normal 11.0-15.0 [facility] Comment on above: Performed By: #### C BC ####[facility] [address] [place], [place] [address]DrGerry Cannon Hematocrit (Bld) [Volume fraction] 46.9 % Normal 36.0-48.0 [facility] Comment on above: Performed By: #### C BC ####[facility] [address] [place], [place] [id number]. David Cannon Hemoglobin (Bld) [Mass/Vol] 15.2 g/dL Normal 12.0-16.0 [facility] Comment on above: Performed By: #### C BC ####[facility] [address] [address]Dr. David Cannon IG # 0.01 10e3/ul Normal 0.00-0.03 [facility] Comment on above: Performed By: #### C BC ####[facility] [address] [address]Dr. David Cannon IG % 0.2 % Normal 0.0-0.5 [facility] Comment on above: Performed By: #### C BC ####[facility] [address] [place], [place] [address]Dr. David Cannon LYMPH # 1.7 103/ul Normal 1.2-3.8 [facility] Comment on above: Performed By: #### C BC ####[facility] [address] [place], [place] [address]Dr. David Cannon Lymphocytes/100 WBC (Bld) 29.0 % Normal 20.5-60.0 [facility] Comment on above: Performed By: #### C BC ####[facility] [address] [address]Dr. David Cannon MANUAL DIFF REQ NO Normal [facility] Comment on above: Performed By: #### C BC ####[facility] [address] [place], [place] [address]Dr. Janellbraeden Cannon MCH (RBC) [Entitic mass] 32.0 pg Normal 26.7-34.0 [facility] Comment on above: Performed By: #### C BC ####[facility] [address]trp[address] [place], [place] [address]DrGerry Cannon MCHC (RBC) [Mass/Vol] 32.4 g/dL Normal 29.9-35.2 [facility] Comment on above: Performed By: #### C BC ####[facility] [address]wlid[address] [place], [place] [address]Dr. David Cannon MCV (RBC) [Entitic vol] 98.7 fL Normal 81.0-99.0 [facility] Comment on above: Performed By: #### C BC ####[facility] [address] [address]Dr. David Cannon MONO # 0.4 103/ul Normal 0.3-0.8 [facility] Comment on above: Performed By: #### C BC ####[facility] I[address]ds[address]jlwz[address] [place], [place] [address]Dr. David Davis Monocytes/100 WBC (Bld) 6.6 % Normal 1.7-12.0 [facility] Comment on above: Performed By: #### C BC ####[facility] [address] [place], [place] [address]Dr. David Cannon NEUT # 3.7 103/ul Normal 1.4-6.5 [facility] Comment on above: Performed By: #### C BC ####[facility] Of[address] [place], [place] [address]Dr. David Davis Neutrophils/100 WBC (Bld) 62.5 % Normal 43.0-75.0 [facility] Comment on above: Performed By: #### C BC ####[facility] [address] [place], [place] [address]Dr. David Davis Platelet mean volume (Bld) [Entitic vol] 9.5 fL Normal 9.5-13.5 [facility] Comment on above: Performed By: #### C BC ####[facility] [address] [place], [place] [address]Dr. David Davis PLT 216 103/ul Normal 150-450 [facility] Comment on above: Performed By: #### C BC ####[facility] [address] [place], [place] [address]Dr. Janellbraeden Davis RBC 4.75 106/ul Normal 4.20-5.40 [facility] Comment on above: Performed By: #### C BC ####[facility] [address] [place], [place] [address]DrGerry Cannon WBC 5.9 103/ul Normal 4.0-11.0 [facility] Comment on above: Performed By: #### C ####[facility] [address] [place], [place] [address] ABD/PELV W CONon 10-17-19 CT ABD/PELV W CON CT ABD/PELV W CON CLINICAL: Generalized abdominal pain. History of diverticulitis. COMPARISON: 12/24/2020 and 06/16/2019 TECHNIQUE: High-resolution axial images were obtained from diaphragms to pubic symphysis after administration of IV contrast. Dose reduction: mA and/or kV are were adjusted by automated exposure control software based upon patients height and weight. FINDINGS: Lung bases show linear pleural-based densities consistent with atelectasis or scarring. The liver is diffusely decreased in density consistent with steatosis. The gallbladder does not show evidence of calcified gallstones. No intra or extrahepatic biliary ductal dilation is seen. No evidence of calcific intraductal stone. Tiny calcific density in the gastric antrum likely ingested matter. The spleen, pancreas and adrenals are unremarkable. The kidneys show no obstructive uropathy. No urinary bladder or ureteral calculus on either side. No bowel obstruction is seen. Moderate hiatus hernia is present. Surgical clips are present at the diaphragmatic hiatus, as previously. There is mild mucosal thickening of the distal transverse colon without surrounding mesenteric inflammation. At the level of the proximal sigmoid colon, there is very subtle haziness in the adjacent mesentery, with thickening of the adjacent peritoneal reflection, as seen on axial series 3 image 77 and coronal series 5 image 49 Appendix is difficult to identify with certainty, however no CT evidence of appendicitis is seen no ascites or abdominal adenopathy. Osseous structures show no acute traumatic or destructive lesion. There has been prior vertebroplasty at the L2 level, and there is a stable 20% compression deformity at L5. IMPRESSION: 1. Findings suggestive of mild or early diverticulitis of the proximal sigmoid colon. No extraluminal gas or fluid to indicate perforation or abscess. 2. Mild mucosal thickening of the distal transverse colon, likely due in part to incomplete distention. No surrounding mesenteric inflammation. Correlate clinically to exclude signs or symptoms of mild nonspecific infectious or inflammatory colitis. 3. No additional acute intra-abdominal or intrapelvic findings. Moderate hiatus hernia. Electronically authenticated by: JANNA DHALIWAL Date: 2021-10-16 15:43 Normal The [facility] ER URINE PROFILEon 2 Bilirubin Ql (U) Negative Normal NEGATIVE The [facility] Comment on above: Performed By: #### U MICRO, ERUR #### [facility] [address] [address] [address] David Cannon Clarity (U) SL CLOUDY Abnormal CLEAR [facility] Comment on above: Performed By: #### U MICRO, ERUR #### [facility] [address] [address] [address] David Cannon Color (U) YELLOW Normal YELLOW [facility] Comment on above: Performed By: #### U MICRO, ERUR #### [facility] [address] [place] [address] Dr. David OWEN A micrscopic examination will be performed if indicated. Normal [facility] Comment on above: Performed By: #### U MICRO, ERUR #### [facility] [address] [place] [address] Dr. David Cannon Glucose Ql (U) Negative Normal NEGATIVE The [facility] Comment on above: Performed By: #### U MICRO, ERUR #### [facility] [address] [address] [address] David Cannon Hemoglobin Ql (U) Negative Normal NEGATIVE The [facility] Comment on above: Performed By: #### U MICRO, ERUR #### [facility] [address] [address] [address] David Cannon Ketones Ql (U) TRACE Abnormal NEGATIVE [facility] Comment on above: Performed By: #### U MICRO, ERUR #### [facility] [address] [address] [address] David Cannon LEUKOCYTES SMALL Abnormal NEGATIVE [facility] Comment on above: Performed By: #### U MICRO, ERUR #### [facility] [address] [address] [address] David Cannon Nitrite Ql (U) Positive Abnormal NEGATIVE [facility] Comment on above: Performed By: #### U MICRO, ERUR #### [facility] [address] [place] [address] Dr. David Cannon pH (U) 5.5 [pH] Normal 5-9 [facility] Comment on above: Performed By: #### U MICRO, ERUR #### [facility] [address] [place] [address] Dr. David Cannon SPEC GRAVITY >=1.030 Abnormal 1.005-<=1.[address] [place] [address] Comment on above: Performed By: #### U MICRO, ERUR #### [facility] [address] [place] [address] Dr. David Cannon UA PROTEIN Negative Normal NEGATIVE/ TRACE [facility] Comment on above: Performed By: #### U MICRO, ERUR #### [facility] [address] [place] [address] Dr. David Cannon UR MICRO IND INDICATED Normal [facility] Comment on above: Performed By: #### U MICRO, ERUR #### [facility] [address] [place] [address] Dr. David Cannon Urobilinogen Qn (U) 0.2 {Skip'U}/dL Normal 0.2 - 1. 0 [facility] Comment on above: Performed By: #### U MICRO, ERUR #### [facility] [address] [place] [address] Dr. David Cannon LIPASEon 10-16-2021 Lipase [Catalytic activity/Vol] 93.0 U/L Normal 73.0-393.0 [facility] Comment on above: Performed By: #### B MP, TSH #### [facility] [address] [place] [address] Dr. David Cannon PROF 14(COMP METB)on 022 Albumin [Mass/Vol] 4.1 g/dL Normal 3.4-5.0 [facility] Comment on above: Performed By: #### B MP, TSH #### [facility] [address] [place] [address] Dr. David Cannon Albumin/Globulin [Mass ratio] 1.1 {ratio} Normal [facility] Comment on above: Performed By: #### B MP, TSH #### [facility] [address] [address] [address] David Cannon ALP [Catalytic activity/Vol] 88 U/L Normal 46-116 [facility] Comment on above: Performed By: #### B MP, TSH #### [facility] [address] [address] [address] David Cannon ALT [Catalytic activity/Vol] 17 U/L Normal 14-59 [facility] Comment on above: Performed By: #### B MP, TSH #### [facility] [address] [address] [address] David Cannon Anion gap [Moles/Vol] 12.4 mmol/L Normal [facility] Comment on above: Performed By: #### B MP, TSH #### [facility] [address] [address] [address] David Cannon AST [Catalytic activity/Vol] 15 U/L Normal 15-37 [facility] Comment on above: Performed By: #### B MP, TSH #### [facility] [address] [address] [address] David Cannon Bilirubin [Mass/Vol] 0.2 mg/dL Normal 0.2-1.0 [facility] Comment on above: Performed By: #### B MP, TSH #### [facility] [address] [address] [address] David Cannon Calcium [Mass/Vol] 9.8 mg/dL Normal 8.5-10.1 [facility] Comment on above: Performed By: #### B MP, TSH #### [facility] [address] [address] [address] David Cannon Chloride [Moles/Vol] 103 mmol/L Normal 98-107 [facility] Comment on above: Performed By: #### B MP, TSH #### [facility] [address] [address] [address] David Cannon CO2 [Moles/Vol] 30.6 mmol/L Normal 21.0-32.0 [facility] Comment on above: Performed By: #### B MP, TSH #### [facility] [address] [address] [address] David Cannon Creatinine [Mass/Vol] 0.85 mg/dL Normal 0.55-1.02 [facility] Comment on above: Performed By: #### B MP, TSH #### [facility] [address] [address] [address] David Cannon EGFR-AF MOSOTHO >60 Normal >=60 [facility] Comment on above: Performed By: #### B MP, TSH #### [facility] [address] [address] [address] David Cannon EGFR-NON AF MOSOTHO >60 Normal >=60 [facility] Comment on above: Performed By: #### B MP, TSH #### [facility] [address] [place] [address] Dr. David Cannon Globulin (S) [Mass/Vol] 3.8 g/dL Normal [facility] Comment on above: Performed By: #### B MP, TSH #### [facility] [address] [address] [address] David Cannon Glucose [Mass/Vol] 119 mg/dL Critically high 74-106 [facility] Comment on above: Performed By: #### B MP, TSH #### [facility] [address] [address] [address] David Cannon Potassium [Moles/Vol] 4.0 mmol/L Normal 3.5-5.1 [facility] Comment on above: Performed By: #### B MP, TSH #### [facility] [address] [address] [address] David Cannon Protein [Mass/Vol] 7.9 g/dL Normal 6.4-8.[address] [facility] Comment on above: Performed By: #### B MP, TSH #### [facility] [address] [address] [address] David Cannon Sodium [Moles/Vol] 142 mmol/L Normal 136-[address] [facility] Comment on above: Performed By: #### B MP, TSH #### [facility] [address] [address] [address] David Cannon Urea nitrogen [Mass/Vol] 12.0 mg/dL Normal 7.0-18.0 [facility] Comment on above: Performed By: #### B MP, TSH #### [facility] [address] [address] [address] David Cannon Urea nitrogen/Creatinine [Mass ratio] 14.1 mg/mg Normal [facility] Comment on above: Performed By: #### B MP, TSH #### [facility] [address] [address] [address] David Cannon URINE MICROSCOPIC ONLYon BACTERIA LARGE Abnormal NONE SEEN [facility] Comment on above: Performed By: #### U MICRO, ERUR #### [facility] [address] [place] [address] Dr. David Cannon Bacteria identified Cx Nom (U) INDICATED Normal [facility] Comment on above: Performed By: #### U MICRO, ERUR #### [facility] [address] [address] [address] David Cannon CA OX CRYSTALS FEW Normal [facility] Comment on above: Performed By: #### U MICRO, ERUR #### [facility] [address] [place] [address] Dr. David Cannon CAST SEEN Abnormal NONE SEEN [facility] Comment on above: Performed By: #### U MICRO, ERUR #### [facility] [address] [address] [address] David Cannon Crystals LM Nom (Urine sed) SEEN Abnormal NONE SEEN [facility] Comment on above: Performed By: #### U MICRO, ERUR #### [facility] [address] [place] [address] Dr. David Cannon Epithelial cells LM Ql (Urine sed) RARE Normal NONE SEEN /RARE [facility] Comment on above: Performed By: #### U MICRO, ERUR #### [facility] [address] [place] [address] Dr. David Cannon HYALINE CAST FEW Normal [facility] Comment on above: Performed By: #### U MICRO, ERUR #### [facility] [address] [address] [address] David Cannon MUCOUS TRACE Abnormal NONE SEEN [facility] Comment on above: Performed By: #### U MICRO, ERUR #### [facility] [address] [address] [address] David Cannon RBC 2-5 Abnormal 0-2 [facility] Comment on above: Performed By: #### U MICRO, ERUR #### [facility] [address] [address] [address] David Cannon WBC 75-100 Abnormal NONE SEEN [facility] Comment on above: Performed By: #### U MICRO, ERUR #### [facility] [address] [address] [address] David Cannon XR ANKLE RT MIN 3 VIEWSon XR ANKLE RT MIN 3 VIEWS EXAM: Right ankl e HISTORY: Pain after an injury last night. TECHNIQUE: 3 views of the right ankle were obtained. FINDINGS: There is no evidence of fracture or dislocation. There are no suspicious bone lesions. Soft tissues are normal. IMPRESSION: No acute findings. Electronically authenticated by: STEPHANIE DODD Date: 2021-10-05 10:56 Normal [facility] MRI TSPINE WO W CONon 2021 MRI TSPINE WO W CON EXAMINATION: MRI TSPINE WO W CON HISTORY: Collapse of vertebra , chronic back pain, nontraumatic compression fracture COMPARISON: No relevant comparison available. TECHNIQUE: Axial T1 and T2; Sagittal T1, T2, and STIR sequences. Images were performed without and with ml Dotarem contrast. FINDINGS: CORD: Normal caliber, contour, and signal intensity. BONES: Right convex curvature of the thoracic spine. Mild compression fractures and prior kyphoplasty at T8, T9, and L2. Mild compression fractures of T10, 11, 12 without increased edema consistent with chronic changes (T11 and T12 were present on an 10/15/2018 CT lung cancer screening study). DISCS: Multilevel mild degenerative disc disease. PARASPINAL AREA: No visible mass. OTHER: Negative. No abnormal contrast enhancement. IMPRESSION: 1. Minimal compression fractures and vertebroplasty of T8, T9, L2. 2. Stable, remote compression fractures of T11 and T12. 3. Age indeterminant mild compression fracture of T10 vertebral body, but favoring subacute to chronic. Electronically authenticated by: CELIA VALENTE Date: 2021-09-01 07:29 Normal [facility] CREATININEon 08-31-2021 Creatinine [Mass/Vol] 0.82 mg/dL Normal 0.55-1.02 [facility] Comment on above: Performed By: #### C LUCIA #### [facility] [address] [place] [address] Dr. David Cannon EGFR-AF MOSOTHO >60 Normal >=60 [facility] Comment on above: Performed By: #### C LUCIA #### [facility] [address] [place] [address] Dr. David Cannon EGFR-NON AF MOSOTHO >60 Normal >=60 [facility] Comment on above: Performed By: #### C LUCIA #### [facility] [address] [place] [address] Dr. David Cannon COVID Quick Testingon 2021 Result Negative [facility] Other Quick Fluon 04-13-2021 FLUAV Ab CF (S) [Titer] Negative N [facility] Other FLUBV Ab CF (S) [Titer] Negative N [facility] Other Vital Signs Date Time Vital Sign Value Performing Clinician Facility 02-27-2023 11:00-0500 Body height 157.48 cm Ana Kim Other [facility] Other 02-27-2023 11:00-0500 Body mass index (BMI) [Ratio] 19.75 kg/m2 Ana Kim Other [facility] Other 02-27-2023 11:00-0500 Body weight 48.99 kg Ana Kim Other [facility] Other 10-24-2022 13:00-0400 Body height 157.48 cm Yolanda Chavez Other [facility] Other 10-24-2022 13:00-0400 Body mass index (BMI) [Ratio] 21.21 kg/m2 Yolanda Chavez Other [facility] Other 10-24-2022 13:00-0400 Body weight 52.62 kg Yolanda Chavez Other [facility] Other 10-24-2022 13:00-0400 Diastolic blood pressure 82 mm[Hg] Yolanda Chavez Other [facility] Other 10-24-2022 13:00-0400 Systolic blood pressure 129 mm[Hg] Yolanda Chavez Other [facility] Other 09-07-2022 14:15-0400 Body height 157.48 cm Kiran Barksdale Other [facility] Other 09-07-2022 14:15-0400 Body mass index (BMI) [Ratio] 20.48 kg/m2 Kiran Barksdale Other [facility] Other 09-07-2022 14:15-0400 Body weight 50.8 kg Kiran Barksdale Other [facility] Other 09-07-2022 14:15-0400 Diastolic blood pressure 80 mm[Hg] Kiran Barksdale Other [facility] Other 09-07-2022 14:15-0400 Systolic blood pressure 137 mm[Hg] Kiran Barksdale Other [facility] Other 08-29-2022 14:00-0400 Body height 157.48 cm Yolanda Chavez Other [facility] Other 08-29-2022 14:00-0400 Body mass index (BMI) [Ratio] 20.3 kg/m2 Yolanda Chavez Other [facility] Other 08-29-2022 14:00-0400 Body weight 50.35 kg Yolanda Chavez Other [facility] Other 08-29-2022 14:00-0400 Diastolic blood pressure 85 mm[Hg] Yolanda Chavez Other [facility] Other 08-29-2022 14:00-0400 Systolic blood pressure 144 mm[Hg] Yolanda Chavez Other [facility] Other 08-25-2022 16:50-0400 Body height 157.48 cm Sandra Flores Other [facility] Other 08-25-2022 16:50-0400 Body mass index (BMI) [Ratio] 20.59 kg/m2 Sandra Flores Other [facility] Other 08-25-2022 16:50-0400 Body temperature 96.6 [degF] Sandra Flores Other [facility] Other 08-25-2022 16:50-0400 Body weight 51.08 kg Sandra Flores Other [facility] Other 08-25-2022 16:50-0400 Diastolic blood pressure 71 mm[Hg] Sandra Flores Other [facility] Other 08-25-2022 16:50-0400 Respiratory rate 20 /min Sandra Flores Other [facility] Other 08-25-2022 16:50-0400 SaO2% (BldA) [Mass fraction] 94 % Sandra Sandra Other [facility] Other 08-25-2022 16:50-0400 Systolic blood pressure 106 mm[Hg] Sandra Sandra Other [facility] Other 08-03-2022 14:30-0400 Body height 157.48 cm Yolanda Chavez Other [facility] Other 08-03-2022 14:30-0400 Body mass index (BMI) [Ratio] 21.21 kg/m2 Yolanda Chavez Other [facility] Other 08-03-2022 14:30-0400 Body weight 52.62 kg Yolanda Chavez Other [facility] Other 08-03-2022 14:30-0400 Diastolic blood pressure 93 mm[Hg] Yolanda Chavez Other [facility] Other 08-03-2022 14:30-0400 Systolic blood pressure 143 mm[Hg] Yolanda Chavez Other [facility] Other 06-20-2022 16:20-0400 Body height 157.48 cm Vanessa Sanford Other [facility] Other 06-20-2022 16:20-0400 Body mass index (BMI) [Ratio] 21.95 kg/m2 Vanessa Sanford Other [facility] Other 06-20-2022 16:20-0400 Body temperature 98.9 [degF] Vanessa Sanford Other [facility] Other 06-20-2022 16:20-0400 Body weight 54.43 kg Vanessa Juvenal Other [facility] Other 06-20-2022 16:20-0400 Diastolic blood pressure 81 mm[Hg] Vanessa Sanford Other [facility] Other 06-20-2022 16:20-0400 Respiratory rate 18 /min Vanessa Sanford Other [facility] Other 06-20-2022 16:20-0400 SaO2% (BldA) [Mass fraction] 99 % Vanessa Juvenal Other [facility] Other 06-20-2022 16:20-0400 Systolic blood pressure 150 mm[Hg] Vanessa Sanford Other [facility] Other 06-16-2022 12:30-0400 Body height 157.48 cm Phani Ball Other [facility] Other 06-16-2022 12:30-0400 Body mass index (BMI) [Ratio] 22.2 kg/m2 Phani Ball Other [facility] Other 06-16-2022 12:30-0400 Body weight 55.07 kg Phani Ball Other [facility] Other 06-16-2022 12:30-0400 Diastolic blood pressure 75 mm[Hg] Phani Ball Other [facility] Other 06-16-2022 12:30-0400 Respiratory rate 12 /min Phani Ball Other [facility] Other 06-16-2022 12:30-0400 Systolic blood pressure 139 mm[Hg] Phani Ball Other [facility] Other 05-29-2022 14:45-0400 Body height 157.48 cm Phani Ball Other [facility] Other 05-29-2022 14:45-0400 Body mass index (BMI) [Ratio] 21.25 kg/m2 Phani Ball Other [facility] Other 05-29-2022 14:45-0400 Body weight 52.71 kg Phani Ball Other [facility] Other 05-29-2022 14:45-0400 Diastolic blood pressure 98 mm[Hg] Phani Ball Other [facility] Other 05-29-2022 14:45-0400 Respiratory rate 12 /min Phani Ball Other [facility] Other 05-29-2022 14:45-0400 Systolic blood pressure 150 mm[Hg] Phani Ball Other [facility] Other 03-14-2022 15:30-0500 Body height 157.48 cm Kiran Barksdale Other [facility] Other 03-14-2022 15:30-0500 Body mass index (BMI) [Ratio] 19.57 kg/m2 Kiran Barksdale Other [facility] Other 03-14-2022 15:30-0500 Body weight 48.54 kg Kiran Barksdale Other [facility] Other 03-14-2022 15:30-0500 Diastolic blood pressure 96 mm[Hg] Kiran Barksdale Other [facility] Other 03-14-2022 15:30-0500 Systolic blood pressure 136 mm[Hg] Kiran Barksdale Other [facility] Other 01-20-2022 11:40-0500 Diastolic blood pressure 84 mm[Hg] DO Phani Ball Work Phone: [facility] 01-20-2022 11:40-0500 Heart rate 79 /min DO Phani Ball Work Phone: [facility] 01-20-2022 11:40-0500 Respiratory rate 18 /min DO Phani Ball Work Phone: [facility] 01-20-2022 11:40-0500 SaO2% (BldA) [Mass fraction] 97 % DO Phani Ball Work Phone: [facility] 01-20-2022 11:40-0500 Systolic blood pressure 143 mm[Hg] DO Phani Ball Work Phone: [facility] 01-20-2022 09:05-0500 Body height 157.48 cm DO Phani Ball Work Phone: [facility] 01-20-2022 09:05-0500 Body temperature 98.2 [degF] DO Phani Ball Work Phone: [facility] 01-20-2022 09:05-0500 Body weight 51.25 kg DO Phani Ball Work Phone: [facility] 12-09-2021 12:00-0400 Body height 157.48 cm Kiran Barksdale Other [facility] Other 12-09-2021 12:00-0400 Body mass index (BMI) [Ratio] 21.58 kg/m2 Kiran Barksdale Other [facility] Other 12-09-2021 12:00-0400 Body weight 53.52 kg Kiran Barksdale Other [facility] Other 09-05-2021 17:00-0400 Body height 157.48 cm Ambrose Torres Other [facility] Other 09-05-2021 17:00-0400 Body mass index (BMI) [Ratio] 23.01 kg/m2 Ambrose Torres Other [facility] Other 09-05-2021 17:00-0400 Body weight 57.06 kg Ambrose Melissa Other [facility] Other 06-13-2021 10:45-0400 Body height 157.48 cm Janna Pina Other [facility] Other 06-13-2021 10:45-0400 Body mass index (BMI) [Ratio] 23.23 kg/m2 Janna Pina Other [facility] Other 06-13-2021 10:45-0400 Body weight 57.61 kg Janna Pina Other [facility] Other 06-13-2021 10:45-0400 Diastolic blood pressure 107 mm[Hg] Janna Pina Other [facility] [facility] Other 06-13-2021 10:45-0400 Systolic blood pressure 145 mm[Hg] Janna Pina Other [facility] Other 04-13-2021 10:05-0500 Body height 157.48 cm Shira Cunningham Other [facility] Other 04-13-2021 10:05-0500 Body mass index (BMI) [Ratio] 22.86 kg/m2 Shira Cunningham Other [facility] Other 04-13-2021 10:05-0500 Body temperature 96.2 [degF] Shira Cunningham Other [facility] Other 04-13-2021 10:05-0500 Body weight 56.7 kg Shira Cunningham Other [facility] Other 04-13-2021 10:05-0500 Respiratory rate 18 /min Shira Cunningham Other [facility] Other 04-13-2021 10:05-0500 SaO2% (BldA) [Mass fraction] 95 % Shira Cunningham Other [facility] Other 01-20-2021 12:00-0500 Body height 157.48 cm Janna Pina Other [facility] Other 01-20-2021 12:00-0500 Body mass index (BMI) [Ratio] 23.04 kg/m2 Janna Pina Other [facility] Other 01-20-2021 12:00-0500 Body weight 57.15 kg Janna Pina Other [facility] Other 12-07-2020 15:30-0400 Body height 157.48 cm Janna Pina Other [facility] Other 12-07-2020 15:30-0400 Body mass index (BMI) [Ratio] 22.86 kg/m2 Janna Pina Other [facility] Other 12-07-2020 15:30-0400 Body weight 56.7 kg Janna Pina Other [facility] Other Encounters Encounter Date Encounter Type Care Provider Facility Start: 03-08-2023 End: 03-08-2023 ambulatory Yolanda Chavez Other [facility] Other Start: 03-08-2023 Office outpatient vi sit 15 minutes Yolanda Chavez [facility] Start: 03-08-2023 Telephone encounter Yolanda Chavez [facility] Start: 03-02-2023 End: 03-02-2023 ambulatory Ana Kim Other [facility] Other Start: 03-02-2023 Telephone encounter [facility] Start: 02-27-2023 End: 02-27-2023 ambulatory Yolanda Chavez Facility:[facility] Start: 02-27-2023 Office outpatient vi sit 25 minutes Ana Kim [facility] Neuro[facility] Start: 02-27-2023 End: 02-27-2023 ambulatory MD Yolanda Chavez Work Phone: [facility] Work Phone: Start: 02-27-2023 End: 02-27-2023 Patient encounter procedure MD Yolanda Chavez Work Phone: [facility] Work Phone: Start: 02-20-2023 End: 02-20-2023 ambulatory Yolanda Chavez Other [facility] Other Start: 02-20-2023 Telephone encounter Yolanda Chavez [facility] Start: 02-15-2023 End: 02-15-2023 ambulatory Yolanda Chavez Other [facility] Other Start: 02-15-2023 Telephone encounter Yolanda Chavez [facility] Start: 02-12-2023 End: 02-12-2023 ambulatory Yolanda Chavez Other [facility] Other Start: 02-12-2023 Telephone encounter Yolanda Chavez [facility] Start: 01-29-2023 End: 01-29-2023 ambulatory Kiran Barksdale Other [facility] Other Start: 01-29-2023 Telephone encounter Kiran arnett [facility] Gastroenterology Start: 01-26-2023 End: 01-26-2023 ambulatory Kiran Barksdale Other [facility] Other Start: 01-26-2023 Telephone encounter Kiran Pintolesa ck [facility] Gastroenterology Start: 01-25-2023 End: 01-25-2023 ambulatory Yolanda Chavez Other [facility] Other Start: 01-25-2023 Telephone encounter Yolanda Chavez [facility] Start: 01-23-2023 End: 01-24-2023 ambulatory ROBIN FLANNERY Not Available Start: 01-22-2023 End: 01-22-2023 ambulatory Yolanda Chavez Other [facility] Other Start: 01-22-2023 Telephone encounter Yolanda Chavez [facility] Start: 01-15-2023 (Televisit) Televisit Yolanda Chavez [facility] Start: 01-15-2023 End: 01-15-2023 ambulatory Yolanda Chavez Other [facility] Other Start: 01-12-2023 End: 01-12-2023 ambulatory Yolanda Chavez Other [facility] Other Start: 01-12-2023 Telephone encounter Yolanda Chavez [facility] Start: 01-11-2023 End: 01-11-2023 ambulatory Yolanda Chavez Facility:[facility] Start: 01-11-2023 End: 01-11-2023 ambulatory MD Yolanda Chavez Work Phone: [facility] Work Phone: Start: 01-11-2023 End: 01-11-2023 Patient encounter procedure MD Yolanda Chavez Work Phone: [facility] Work Phone: Start: 12-28-2022 End: 12-28-2022 ambulatory Yolanda Chavez Other [facility] Other Start: 12-28-2022 Telephone encounter Yolanda Chavez [facility] Start: 12-26-2022 (Televisit) Televisit Yolanda Chavez [facility] Start: 12-26-2022 End: 12-26-2022 ambulatory Yolanda Chavez Other [facility] Other Start: 12-25-2022 Telephone encounter Yolanda Chavez [facility] Start: 12-25-2022 End: 12-26-2022 ambulatory [place] RAMOS [facility] [employer] 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) Start: 11-28-2022 End: 11-28-2022 ambulatory Kiran Barksdale Other [facility] Other Start: 11-28-2022 Telephone encounter Kiran Vega ck [facility] Gastroenterology Start: 11-27-2022 End: 11-27-2022 ambulatory Yolanda Chavez Other [facility] Other Start: 11-27-2022 Telephone encounter Yolanda Chavez [facility] Start: 11-23-2022 (Televisit) Televisit Yolanda Chavez [facility] [place] Start: 11-23-2022 End: 11-23-2022 ambulatory Yolanda Chavez Other [facility] Other Start: 11-22-2022 End: 11-22-2022 ambulatory Yolanda Chavez Other [facility] Other Start: 11-22-2022 Telephone encounter Yolanda Chavez [facility] Start: 11-20-2022 End: 11-20-2022 Departed Referred MD Yoladna Chavez Work Phone: [facility] Work Phone: Start: 11-20-2022 End: 11-20-2022 Patient encounter procedure MD Yolanda Chavez Work Phone: [facility] Work Phone: Start: 11-20-2022 End: 11-20-2022 ambulatory MD Yolanda Chavez Work Phone: [facility] Work Phone: Start: 11-20-2022 Telephone encounter Yolanda Chavez [facility] Start: 11-15-2022 End: 11-15-2022 ambulatory Yolanda Chavez Other [facility] Other Start: 11-15-2022 Telephone encounter Yolanda Chavez [facility] Start: 11-09-2022 End: 11-09-2022 ambulatory Kiran Barksdale Facility:[facility] Start: 11-09-2022 End: 11-09-2022 ambulatory MD Yolanda Chavez Work Phone: [facility] Work Phone: Start: 11-09-2022 End: 11-09-2022 Patient encounter procedure MD Yolanda Chavez Work Phone: [facility] [place] Work Phone: Start: 11-02-2022 End: 11-02-2022 ambulatory Yolanda Chavez Other [facility] Other Start: 11-02-2022 Telephone encounter Yolanda Chavez [facility] Start: 10-24-2022 End: 10-24-2022 ambulatory Yolanda Chavez Other [facility] Other Start: 10-24-2022 Office outpatient vi sit 15 minutes Yolanda Chavez [facility] Start: 10-19-2022 End: 10-19-2022 ambulatory Shira Cunningham Other [facility] Other Start: 10-19-2022 Telephone encounter Shira Cunningham [facility] Start: 10-18-2022 End: 10-18-2022 ambulatory Yolanda Kathy Other [facility] Other Start: 10-18-2022 Telephone encounter Yolanda Chavez [facility] Start: 10-17-2022 End: 10-17-2022 ambulatory Yolanda Chavez Other [facility] Other Start: 10-17-2022 Telephone encounter Yolanda Chavez [facility] Start: 10-05-2022 End: 10-05-2022 ambulatory Kiran Barksdale Other [facility] Other Start: 10-05-2022 Telephone encounter Kiran Vega [facility] G[facility] Start: 10-04-2022 End: 10-04-2022 ambulatory Yolanda Kathy Other [facility] Other Start: 10-04-2022 Telephone encounter Yolanda Chavez [facility] Start: 09-07-2022 End: 09-07-2022 ambulatory Kiran Barksdale Other [facility] Other Start: 09-07-2022 Office outpatient vi sit 25 minutes Kiran Barksdale [facility] Gastroenterology Start: 09-06-2022 End: 09-06-2022 ambulatory Yolanda Chavez Other [facility] Other Start: 09-06-2022 Telephone encounter Yolanda Chavez [facility] Start: 08-29-2022 End: 08-29-2022 ambulatory Yolanda Chavez Other [facility] Other Start: 08-29-2022 Office outpatient vi sit 15 minutes Yolanda Chavez [facility] Start: 08-25-2022 End: 08-25-2022 ambulatory Sandra Flores Other [facility] Other Start: 08-25-2022 Office outpatient vi sit 15 minutes Sandra Flores [facility] Start: 08-14-2022 End: 08-14-2022 ambulatory Phani Edmond Other [facility] Other Start: 08-14-2022 Telephone encounter Phani Anthony [facility] Start: 08-10-2022 End: 08-10-2022 ambulatory Phani Anthony Other [facility] Other Start: 08-10-2022 Telephone encounter Phani Anthony [facility] Start: 08-08-2022 End: 08-08-2022 ambulatory Yolanda Chavez Other [facility] Other Start: 08-08-2022 Telephone encounter Yolanda Chavez [facility] Start: 08-03-2022 End: 08-03-2022 ambulatory Yolanda Chavez Other [facility] Other Start: 08-03-2022 Office outpatient vi sit 15 minutes Yolanda Chavez [facility] Start: 07-27-2022 End: 07-28-[address] BELLO [facility] Facility: Start: 07-21-2022 End: 07-21-2022 ambulatory Phani Anthony Other [facility] Other Start: 07-21-2022 Telephone encounter Phani GARCIA [facility] Start: 07-20-2022 End: 07-21-[address] PHANI ANTHONY Facility:[facility] Start: 07-12-2022 End: 07-12-2022 ambulatory Phani Anthony Other [facility] Other Start: 07-12-2022 Telephone encounter Phani GARCIA [facility] Start: 06-27-2022 End: 06-27-2022 ambulatory Vanessa Sanford Other [facility] Other Start: 06-27-2022 Telephone encounter Vanessa Sanford [facility] Start: 06-22-2022 End: 06-22-2022 ambulatory Phani Anthony Other [facility] Other Start: 06-22-2022 Telephone encounter Phani GARCIA [facility] Start: 06-20-2022 End: 06-20-2022 ambulatory Vanessa Sanford Facility:[facility] Start: 06-20-2022 End: 06-20-2022 Departed Referred SHEILA Sanford Work Phone: [facility] [place] Work Phone: Start: 06-20-2022 End: 06-20-2022 ambulatory SHEILA Sanford Work Phone: [facility] Work Phone: Start: 06-20-2022 Office outpatient vi sit 15 minutes Vanessa Sanford [facility] Start: 06-16-2022 End: 06-17-[address] PHANI ANTHONY [facility] [employer] Other Start: 06-16-2022 Office outpatient vi sit 25 minutes Phani Anthony [facility] Start: 06-06-2022 End: 06-07-2022 ambulatory AINSLEY WATERMAN . Facility:[facility] Start: 05-29-2022 End: 05-30-[address] PHANI ANTHONY [facility] [employer] Other Start: 05-29-2022 Office outpatient vi sit 25 minutes Phani Anthony [facility] Start: 05-29-2022 Telephone encounter Phani Anthony [facility] Start: 05-12-2022 End: 05-12-2022 ambulatory Phani Anthony Other [facility] Other Start: 05-12-2022 Telephone encounter Phani Anthony [facility] Start: 05-09-2022 End: 05-09-2022 ambulatory Phani Anthony Other [facility] Other Start: 05-09-2022 Office outpatient vi sit 15 minutes Phani Anthony [facility] Start: 05-09-2022 Telephone encounter Phani Edmond [facility] Start: 04-28-2022 End: 04-28-2022 ambulatory Phani Anthony Other [facility] Other Start: 04-28-2022 Telephone encounter Phani Edmond [facility] Start: 04-24-2022 End: 04-24-2022 ambulatory Phani Anthony Other [facility] Other Start: 04-24-2022 Telephone encounter Phani Anthony [facility] Start: 04-20-2022 End: 04-20-2022 ambulatory Phani Anthony Other [facility] Other Start: 04-20-2022 Telephone encounter Phani Edmond [facility] Start: 04-17-2022 End: 04-17-[address] ABDELRAHMAN WEINSTEIN . Facility:[facility] Start: 04-16-2022 Encounter for other preprocedural examination DR ABDELRAHMAN WEINSTEIN . [facility] Start: 04-14-2022 End: 04-15-[address] ABDELRAHMAN WEINSTEIN . Facility:[facility] Start: 04-14-2022 End: 04-15-2022 Encounter for other preprocedural examination DR ABDELRAHMAN WEINSTEIN . Facility:[facility] Start: 04-13-2022 End: 04-13-2022 ambulatory Phani Anthony Other [facility] Other Start: 04-13-2022 Telephone encounter Phani Anthony [facility] Start: 04-10-2022 End: 04-10-[address] ABDELRAHMAN WEINSTEIN . Facility:[facility] Start: 03-25-2022 End: 03-25-2022 ambulatory Kiran Barksdale Other [facility] Other Start: 03-25-2022 Telephone encounter Kiran Vega [facility] Start: 03-15-2022 End: 03-15-2022 ambulatory Phani Anthony Other [facility] Other Start: 03-15-2022 Telephone encounter Phani GARCIA [facility] Start: 03-14-2022 End: 03-14-2022 ambulatory Kiran Barksdale Other [facility] Other Start: 03-14-2022 Office outpatient vi sit 15 minutes Kiran Barksdale [facility] Start: 03-10-2022 End: 03-10-2022 ambulatory Phani Edmond Other [facility] Other Start: 03-10-2022 Telephone encounter Phani Anthony [facility] Start: 03-01-2022 Encounter for other preprocedural examination Yolanda Chavez Other [facility] Other Start: 03-01-2022 Pre-procedure evaluation check Yolanda Chavez Other [facility] Other Start: 02-23-2022 End: 02-24-[address] KIEL DÍAZ . Facility:[facility] Start: 01-20-2022 End: 01-20-2022 Admission to same day surgery center DO Phani Anthony Work Phone: [facility] Start: 01-20-2022 End: 01-20-2022 ambulatory DO Phani Anthony Work Phone: [facility] Work Phone: Start: 01-06-2022 End: 01-07-[address] WAI SEVERINO Facility:[facility] Start: 01-02-2022 End: 01-02-2022 ambulatory Kiran Barksdale Other [facility] Other Start: 01-02-2022 Telephone encounter Kiran arnett [facility] Start: 12-09-2021 End: 12-09-2021 ambulatory Kiran Barksdale Other [facility] Other Start: 12-09-2021 Office outpatient vi sit 25 minutes Kiran Barksdale [facility] Start: 11-28-2021 End: 11-29-[address] PHANI ANTHONY Facility:[facility] Start: 11-10-2021 End: 11-10-2021 ambulatory Kiran Barksdale Other [facility] Other Start: 11-10-2021 Telephone encounter Kiran arnett [facility] Start: 10-20-2021 End: 10-20-[address] PHANI ANTHONY Facility:[facility] Start: 10-16-2021 End: 10-16-[address] PHANI ANTHONY Facility:[facility] Start: 10-05-2021 End: 10-05-2021 ambulatory AINSLEY WATERMAN . Facility:[facility] Start: 09-30-2021 ambulatory SANTA Garrett Facili ty:[facility] Start: 09-29-2021 End: 09-29-2021 ambulatory Janna Pina Other [facility] Other Start: 09-29-2021 Telephone encounter Janna Pina [facility] Start: 09-20-2021 Adult health examination Yolanda Chavez Other [facility] Other Start: 09-20-2021 Encounter for genera l adult medical examination without abnormal findings Yolanda Chavez Other [facility] Other Start: 09-05-2021 End: 09-05-2021 ambulatory Ambrose Torres Other [facility] Other Start: 09-05-2021 Office outpatient vi sit 15 minutes Ambrose Torres [facility] Start: 08-31-2021 End: 09-01-[address] PHANI ANTHONY Facility:[facility] Start: 07-08-2021 End: 07-08-2021 ambulatory Janna Pina Other [facility] Other Start: 07-08-2021 Telephone encounter Janna Pina [facility] Start: 06-13-2021 End: 06-13-2021 ambulatory Janna Pina Other [facility] Other Start: 06-13-2021 Office outpatient vi sit 25 minutes Janna Pina [facility] Start: 04-13-2021 End: 04-13-2021 ambulatory Shira Cunningham Other [facility] Other Start: 04-13-2021 Office outpatient vi sit 15 minutes Shira Marisa [facility] Start: 02-28-2021 End: 02-28-2021 ambulatory Janna Pina Other [facility] Other Start: 02-28-2021 Telephone encounter Janna Pina [facility] Start: 01-31-2021 End: 01-31-2021 ambulatory Janna Pina Other [facility] Other Start: 01-31-2021 Telephone encounter Janna Pina [facility] Start: 01-20-2021 End: 01-20-2021 ambulatory Janna Pina Other [facility] Other Start: 01-20-2021 Office outpatient vi sit 25 minutes Janna Pina [facility] Start: 01-20-2021 Telephone encounter Janna Pina [facility] Gastro[facility] Start: 12-07-2020 Office outpatient vi sit 25 minutes Janna Pina [facility] Gastro[facility] Procedures Date Procedure Procedure Detail Performing Clinician Start: 02-27-2023 X-ray of lumbar spine, four views MD Anny Chavez Work Phone: Start: 01-11-2023 Urine culture MD Yolanda Chavez Work Phone: Start: 11-20-2022 Urine culture MD Yolanda Chavez Work Phone: Start: 11-09-2022 Magnetic resonance cholangiopancreatography MD Yolanda Chavez Work Phone: Start: 01-20-2022 Colonoscopy DO Phani Anthony Work Phone: Start: 09-19-2017 Screening for malignant neoplasm of colon Yolanda Chavez Other Start: 09-19-2017 Screening for osteoporosis Yolanda Chavez Other Start: 09-19-2017 Screening mammography Yolanda Chavez Other Depression screening Yolanda Chavez Other Screening for malign ant neoplasm of breast Yolanda Chavez Other Plan of Treatment Date Care Activity Detail Author Start: 01-11-2023 Bacteria identified in Urine by Culture [facility] Start: 01-20-2022 [facility] Start: 03-28-2021 COVID-19 Vaccine (4 - Pfizer series) COVID-19 Vaccine (4 - Pfizer series) [facility] Start: 06-03-2020 Pneumococcal Vaccine: 65+ Years (2 - PCV) Pneumococcal Vaccine: 65+ Years (2 - PCV) [facility] Start: 12-13-2016 Zoster Vaccines (2 of 3) Zoster Vaccines (2 of 3) [facility] Start: 1995 Screening for malignant neoplasm of breast Mammogram [facility] Start: 06-03-1977 DTaP/Tdap/Td Vaccines (1 - Tdap) DTaP/Tdap/Td Vaccines (1 - Tdap) [facility] Start: 06-03-1973 Hepatitis C screening Hepatitis C Screening [facility] Start: 1955 Lipid panel Lipid Panel [facility] Start: 1955 Screening for malignant neoplasm of colon [facility] Start: 1955 Screening for osteoporosis Bone Density Scan [facility] Start: 1955 Yearly Adult Physical Yearly Adult Physical [facility] Atopobium vaginae DN A [Presence] in Vaginal fluid by JOSH with probe detection [facility] Bacteria identified in Urine by Culture [facility] Bacterial vaginosis associated bacterium 2 DNA [Presence] in Vaginal fluid by JOSH with probe detection [facility] Megasphaera sp type 1 DNA [Presence] in Vaginal fluid by JOSH with probe detection [facility] Patient Education Colitis Hemorr hoids (DC) [facility] Work Phone: [facility] Immunizations Immunization Date Immunization Notes Care Provider Fa radha 10-24-2022 Flu vaccine, quadrivalent, high-dose, preservative free, age 65y+ (FLUZONE) Libby Muñoz PA-C Work Phone: [facility] Work Phone: 12-24-2021 influenza, high dose seasonal, preservative-free Libby Muñoz PA-C Work Phone: [facility] Work Phone: 11-28-2021 influenza virus vaccine, split virus (incl. purified surface antigen) Yolanda Chavez Other [facility] Other 11-28-2021 Influenza, Seasonal, Quadrivalent, Adjuvanted Libby Muñoz PA-C Work Phone: [facility] Work Phone: 01-31-2021 COVID-19 mRNA, Comirnaty (Pfizer) DO Phani Anthony Work Phone: [facility] 12-15-2020 influenza virus vaccine, split virus (incl. purified surface antigen) Yolanda Chavez Other [facility] Other 12-15-2020 Seasonal trivalent influenza vaccine, adjuvanted, preservative free Libby Muñoz PA-C Work Phone: [facility] Work Phone: 07-30-2020 COVID-19 mRNA, Comirnaty (Pfizer) DO Phani Anthony Work Phone: [facility] 07-09-2020 COVID-19 mRNA, Comirnaty (Pfizer) DO Phani Anthony Work Phone: [facility] 12-26-2019 influenza virus vaccine, split virus (incl. purified surface antigen) Yolanda Chavez Other [facility] [employer] Other 09-19-2019 pneumococcal conjuga te vaccine, 13 valent Yolanda Chavez Other [facility] [employer] Other 01-29-2019 Influenza, injectabl e, Madin Hewlett Canine Kidney, preservative free, quadrivalent Libby Muñoz PA-C Work Phone: [facility] Work Phone: 01-07-2018 influenza virus vaccine, split virus (incl. purified surface antigen) Yolanda Chavez Other [facility] Other 01-07-2018 Influenza, injectabl e, Madin Hewlett Canine Kidney, quadrivalent with preservative Libby MILLER-Janet Work Phone: [facility] Work Phone: 12-07-2016 influenza, seasonal, injectable Libby MILLER-Janet Work Phone: [facility] Work Phone: 12-07-2016 tetanus and diphther ia toxoids, adsorbed, preservative free, for adult use (5 Lf of tetanus toxoid and 2 Lf of diphtheria toxoid) Yolanda Chavez Other [facility] Other 10-18-2016 zoster vaccine, live Libby Muñoz PA-C Work Phone: [facility] Work Phone: 04-24-2016 zoster vaccine, live Yolanda Chavez Other [facility] 12-10-2013 influenza, injectabl e, madin raza canine kidney, preservative free Libby Muñoz PA-C Work Phone: [facility] Work Phone: 01-18-2013 pneumococcal polysaccharide vaccine, 23 valent Yolanda Chavez Other [facility] [employer] Other 10-25-2011 pneumococcal polysaccharide vaccine, 23 valent Libby Toni PA-C Work Phone: [facility] Work Phone: 01-10-2005 pneumococcal polysaccharide vaccine, 23 valent Janna Pina Other [facility] [employer] Other 02-05-2001 pneumococcal polysaccharide vaccine, 23 valent Libby Muñoz PA-C Work Phone: [facility] Work Phone: Payers Date Payer Category Payer Unknown SELF FUNDED SELF FUNDED 000 [id number] [place] [address] [id number] 2022 Self-pay [id number] 1959 Medicare [id number] 1955 Unknown [id number] 1955 Unknown [id number] 1955 Unknown [id number] 1955 Unknown [id number] 1955 Unknown [id number] 1955 Unknown [id number] 2.16.840.1.879259.3.579.2.593 1955 Unknown [id number] 2.16.840.1.750992.3.579.2.593 1955 Unknown [id number] 2.16.840.1.490920.3.579.2.593 1955 Unknown [id number] 2.16.840.1.419553.3.579.2.593 1955 Unknown [id number] 2.16.840.1.926371.3.579.2.593 1955 Unknown [id number] 2.16.840.1.626114.3.579.2.593 1955 Unknown [id number] 2.16.840.1.894644.3.579.2.593 1955 Unknown [id number] 2.16.840.1.692015.3.579.2.593 1955 Unknown [id number] 2.16.840.1.489589.3.579.2.593 1955 Unknown [id number] 2.16.840.1.363328.3.579.2.593 1955 Unknown [id number] 2.16.840.1.469912.3.579.2.593 1955 Unknown [id number] 2.16.840.1.481661.3.579.2.727 1955 Unknown [id number] 2.16.840.1.011099.3.579.2.125 9 1955 Unknown [id number] 2.16.840.1.705490.3.579.2.125 9 1955 Unknown [id number] 2.16.840.1.278278.3.579.2.125 9 Medicare Medicare [id number] Medicare [id number] 2.16.840.1.605444.19 Unknown [id number] 2.16.840.1.816638.3.579.2.531 Unknown [id number] 2.16.840.1.266038.3.579.2.531 Unknown [id number] 2.16.840.1.106337.3.579.2.531 Unknown [id number] 2.16.840.1.943141.3.579.2.531 Unknown [id number] 2.16.840.1.801817.3.579.2.531 Social History Date Type Detail Facility Unknown if ever smoked [facility] Other Sex Assigned At [facility] Start: 01-20-2022 End: 02-01-2022 Tobacco smoking status NHIS Ex-smoker (finding) [facility] Start: 1955 Sex Assigned At Female [facility] Tobacco smoking stat us CTIS Tobacco smoking consumption unknown [facility] Work Phone: Start: 12-17-2022 Gender identity Identifies as female gender (finding) [facility] Work Phone: Start: 12-17-2022 Sexual orientation Heterosexual (finding) [facility] Work Phone: Tobacco smoking status No Smokin g Status Entered [facility] Medical Equipment Procedure Code Equipment Code Equipment Origin al Text Equipment Identifier Dates Kyphoplasty Orthopaedic ceme nt, non-medicated [id number] FDA Start: 06-24-2019 Goals Date Patient Goal Desired Activity /State Clinical Notes 12-07-2020 to 03-08-2023 Note Date & Type Note Facility 03-08-2023 Evaluation note Encounter Date Diagnosis Assessment Notes Feb, Age-related osteoporosis with current pathological fracture with delayed healing, subsequent encounter (ICD-10 - M80.00XG) Medication profile and possible SE reviewed with patient today. Take as prescribed. Take 30 minutes prior to food/med/drin k in the AM, take with full glass of water, and sit upright for 30 minutes after taking. Did recommend that she start taking 600 IU of Vitamin D daily, Calcium 1200 mg daily, and start weight bearing exercises as tolerated [facility] Other 12-19-2023 Evaluation note* Encounter Date Diagnosis Assessment Notes Treatment Notes Treatment Clinical Notes Feb, Age-related osteoporosis with current pathological fracture, initial encounter (ICD-10 - M80.00XA) Feb, Compression fracture of L2 vertebra, initial encounter (ICD-10 - S32.020A) I reviewed the report of the CT from 01/13/2023 and which shows there are old L2 and L5 compression fracture. There are old T11 and T12 compression fracture. Patient seems to be having pain consistent with the T11 that goes around to the front of her abdomen just below the bellybutton. I am not certain that these are new fractures on discussion patient has severely osteoporosis with multiple levels greater than -3 with the highest at a -3.8. Patient is currently only taking vitamin D and calcium. States tried an injection 5 years ago and did not like the way it made her feel. Will refer to Nancy Salazar and on the bone for further treatment of osteoporosis. Will order x-ray today and MRI of the lumbar spine at the [facility]. Discussion of new versus old in which the patient was wanting to have a kyphoplasty consult today. Again I feel these are old compression fractures and not new will refer to Dr. Lobo for pain management and follow-up in 4 weeks Feb, Compression fracture of L5 vertebra, initial encounter (ICD-10 - S32.050A) Feb, Compression fracture of T11 vertebra, initial encounter (ICD-10 - S22.080A) Feb, Compression fracture of T12 vertebra, initial encounter (ICD-10 - S22.080A) [facility] Other 11-20-2023 Evaluation note* Encounter Date Diagnosis Assessment Notes Treatment Notes Treatment Clinical Notes Jan, Pancreatic cyst (ICD-10 - K86.2) [facility] Other 11-17-2023 Evaluation note* Encounter Date Diagnosis Assessment Notes Treatment Notes Treatment Clinical Notes Jan, Pancreatic cyst (ICD-10 - K86.2) [facility] Other 11-06-2023 Evaluation note* Encounter Date Diagnosis Assessment Notes Treatment Notes Treatment Clinical Notes Jan, Compression fracture of lumbar vertebra, unspecified lumbar vertebral level, initial encounter (ICD-10 - S32.000A) Requests stronger pain med and agrees to referral to Dr. Flannery. Jan, Closed fracture of right tibial plateau with routine healing, subsequent encounter (ICD-10 - S82.141D) Pt states she has a call out to Dr. Ward that has been managing her fracture. His staff will review Xrays w him and see if needs appt sooner. Otherwise on his schedule on 02/01 [facility] Other 10-17-2023 Evaluation note* Encounter Date Diagnosis Assessment Notes Treatment Notes Treatment Clinical Notes Dec, Bronchitis (ICD-10 - J40) Reviewed medications. Take antibiotics till finished. Okay to continue Mucinex. Dec, Yeast infection (ICD-10 - B37.9) Dec, Closed fracture of right tibial plateau with routine healing, subsequent encounter (ICD-10 - S82.141D) Reviewed OARRS report. Recently sent in pain medication. States pain is adequately controlled with present prescription. [facility] Other 10-16-2023 Evaluation note* Encounter Date Diagnosis Assessment Notes Treatment Notes Treatment Clinical Notes Dec, Moderate episode of recurrent major depressive disorder (ICD-10 - F33.1) [facility] Other 10-09-2023 History of Present illness Narrative* Libby Muñoz PA-C - 12/18/2022 1:00 PM EDT Subjective Ms. Maxwell is a 67-year-old female who is referred by Dr. Barksdale for a subcentimeter pancreatic cyst. She states she had imaging approximately 2 years ago that showed a pancreatic mass. She recently saw her primary care doctor who advised repeat imaging through GI. She saw Dr. Barksdale who ordereda non-contrast MRCP on 11/09/22 that demonstrated a 6 mm cystic lesion in the head of the pancreas without definitive communication to the main pancreatic duct. She was referred to Dr. Elaine Olson who referred here to my clinic for discussion. She denies a personal history of acute pancreatitis. She has intermittent left upper quadrant pain that she describes as low level and improved when lying on her left side. She notes occasional post-prandial abdominal pain which she states has been present since 2019 when she was admitted to the hospital for a GI bleed. She can provide no details regarding the location or type of bleed. Medical history: Pneumothorax (left lung), fibromyalgia, COPD, neuropathy, TIA x 3, GI bleed in 2019. Surgical history: Hysterectomy, bilateral carpal tunnel release, surgical treatment of pneumothorax(details unknown). Family history: No pancreatitis or pancreatic cancer. Social history: Former smoker, quit in 2019. No alcohol use. No illicits. Objective There were no vitals taken for this visit. Physical Exam A physical exam was not completed as this was a virtual visit. She is in no acute distress. Assessment/Plan Ms. Maxwell is a 67-year-old female who is referred by Dr. Barksdale for a subcentimeter pancreatic cyst. PLAN: She has a subcentimeter pancreatic head cyst identified on recent MRI. On my read, it measures approximately 9 mm. It is unclear if there is communication with the main pancreatic duct but there is no ductal dilatation. 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 I discussed that branch duct IPMNs represent potentially pre-malignant lesions and are managed based on the presence or absence of high risk stigmata or concerning features including cyst size, cyst growth over time, enhancing mural nodule or main duct dilatation. Management decisions are based on these features, as well as, personal medical history, family history, presence or absence of symptoms and patient preference. I recommend surveillance with annual MRI Pancreas (with contrast). She would like surveillance but prefers to have this done in [place] with Dr. Barksdale as she is unable to drive to a facility. Libby Muñoz PA-C [facility] Work Phone: [phone]) 661-168809-14-2023 Evaluation note* Encounter Date Diagnosis Assessment Notes Treatment Notes Treatment Clinical Notes Nov, Other closed fracture of proximal end of right tibia, initial encounter (ICD-10 - S82.191A) Rx for 16 wide wheelchair written. He needs the elevation leg accomodation and a cushion for her buttocks. She is dependent on WC for all her ADLs. She is non-weight bearing and unable to ambulate with walker or cane. She needs an elevating leg rest to properly reposition R LE due to nonweight bearing status. The leg rest will assist with edema and the R immobilizing brace. She cannot followup w Dr. Ward or perform ADLs safely without a wheelchair Nov, Chronic obstructive pulmonary disease with (acute) exacerbation (ICD-10 - J44.1) Needs to d/c home oxygen fill and change to a portable oxygen concentrator. [facility] Other 09-14-2023 Evaluation note* Encounter Date Diagnosis Assessment Notes Treatment Notes Treatment Clinical Notes Nov, Other closed fracture of proximal end of right tibia, initial encounter (ICD-10 - S82.191A) Rx for 16 wide wheelchair written. She needs the elevation leg accomodation and a cushion for her buttocks. She is dependent on WC for all her ADLs because she is medically advised to not put any weight on her R leg. She is non-weight bearing and unable to ambulate with walker or cane safely. Pt can self propel wheelchair safely in the home. She needs an elevating leg rest to properly reposition R LE due to nonweight bearing status. The leg rest will assist with prevention of edema and comfort for the large the R leg immobilizing brace. She cannot followup w Dr. Ward or perform ADLs safely without a wheelchair Nov, Chronic obstructive pulmonary disease with (acute) exacerbation (ICD-10 - J44.1) Needs to d/c home oxygen fill and change to a portable oxygen concentrator. POC setting at 2 via nasal cannula. [facility] Other 09-11-2023 Evaluation note* Encounter Date Diagnosis Assessment Notes Treatment Notes Treatment Clinical Notes Nov, Dysuria (ICD-10 - R30.0) [facility] Other 08-24-2023 Evaluation note* Encounter Date Diagnosis Assessment Notes Treatment Notes Treatment Clinical Notes Oct, Fibromyalgia (ICD-10 - M79.7) [facility] Other 08-15-2023 Evaluation note* Encounter Date Diagnosis Assessment Notes Treatment Notes Treatment Clinical Notes Oct, Moderate episode of recurrent major depressive disorder (ICD-10 - F33.1) Pt recalls being on citalopram in the past. Patient is encouraged to stay active and remain involved. Try to keep themselves busy. Take medication as directed and we will continue to monitor. Oct, Fibromyalgia (ICD-10 - M79.7) Reviewed OARRS report. Continue meds and treatment. [facility] Other 07-27-2023 Evaluation note* Encounter Date Diagnosis Assessment Notes Treatment Notes Treatment Clinical Notes Sep, Diverticular disease (ICD-10 - K57.90) [facility] Other 07-26-2023 Evaluation note* Encounter Date Diagnosis Assessment Notes Treatment Notes Treatment Clinical Notes Sep, Lumbar spondylosis (ICD-10 - M47.816) [facility] Other 06-29-2023 Evaluation note* Encounter Date Diagnosis Assessment Notes Treatment Notes Treatment Clinical Notes Aug, Diverticular disease (ICD-10 - K57.90) Patient reports constipation and she will try linzess 290 mg prescription sent to pharmacy RTO 3 months Aug, GERD (gastroesophageal reflux disease) (ICD-10 - K21.9) Aug, Pancreas cyst (ICD-10 - K86.2) Patient is to have an MRCP dont at [facility] ordered today [facility] Other 06-28-2023 Evaluation note* Encounter Date Diagnosis Assessment Notes Treatment Notes Treatment Clinical Notes Aug, Lumbar spondylosis (ICD-10 - M47.816) [facility] Other 06-20-2023 Evaluation note* Encounter Date Diagnosis Assessment Notes Treatment Notes Treatment Clinical Notes Aug, NOEL (generalized anxiety disorder) (ICD-10 - F41.1) Chronic problem. Continue present medications. Aug, Irritable bowel syndrome with diarrhea (ICD-10 - K58.0) Has appointment next week with Dr. Meléndez. Defer to him before further imaging or lab tests are ordered. 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 Will scan that CT into present EMR for review by her veneer grader next week. [facility] Other 06-16-2023 Evaluation note* Encounter Date Diagnosis Assessment Notes Treatment Notes Treatment Clinical Notes Aug, COPD exacerbation (ICD-10 - J44.1) Discussed with patient exam and history is consistent with COPD exacerbation. Rapid COVID is negative in office. Will cover with azithromycin and prednisone burst. Continue maintenance and rescue inhaler as needed. May use Mucinex DM [id number]. Patient has follow-up with PCP next week. Advised to follow-up sooner if any rapidly increasing shortness of breath, wheezing, signs of respiratory distress. Patient verbalized understanding of treatment plan. Patient reports history of frequent yeast infections with antibiotic use. Requesting Diflucan. Dose sent. Advised should only take it develop symptoms. Patient verbalized understanding. Aug, Congestion of nasal sinus (ICD-10 - R09.81) [facility] Other 06-01-2023 Evaluation note* Encounter Date Diagnosis Assessment Notes Treatment Notes Treatment Clinical Notes Aug, Lumbar spondylosis (ICD-10 - M47.816) [facility] Other 05-25-2023 Evaluation note* Encounter Date Diagnosis Assessment Notes Treatment Notes Treatment Clinical Notes July, Chronic obstructive pulmonary disease with (acute) lower respiratory infection (ICD-10 - J44.0) Discussed prednisone could help her hip pain and her wheezing for a short term treatment July, Insomnia, idiopathic (ICD-10 - F51.01) d/c remeron start trazodone. f/u in 1 month [facility] Other 05-03-2023 Evaluation note* Encounter Date Diagnosis Assessment Notes Treatment Notes Treatment Clinical Notes July, Lumbar spondylosis (ICD-10 - M47.816) [facility] Other 04-11-2023 Evaluation note* Encounter Date Diagnosis Assessment Notes Treatment Notes Treatment Clinical Notes Jun, Dysuria (ICD-10 - R30.0) Dip unremarkable today in office. We will hold off on culture at this time. Encourage patient to push fluids. Follow above treatment plan recommendations. Jun, Vaginal discharge (ICD-10 - N89.8) Discussed diagnosis with patient. Patient refuses pelvic exam today in office. Patient perform self swab, will send in to check for BV/yeast. Advised that we will call with results in 2 to 5 days. At time of results will send in medication if needed. Follow-up with ELECTRON BEAM OPERATOR if no improvement of symptoms. Immediate evaluation in ER for signs/symptoms as discussed. Patient verbalizes understanding and is agreeable with treatment plan. [facility] Other 04-07-2023 Evaluation note* Encounter Date Diagnosis Assessment Notes Treatment Notes Treatment Clinical Notes Jun, Mid back pain (ICD-10 - M54.9) Stretching exercises, heat/ice and Tylenol. Tramadol as needed. Discussed PT and pain management Jun, Idiopathic peripheral neuropathy (ICD-10 - G60.9) Stable but associated w/ unsteadiness. Fall precautions reviewed, encouraged to use assistive device for stability Increase Lyrica to 75mg tid Jun, Mucopurulent chronic bronchitis (ICD-10 - J41.1) Continue MDI as needed. No ER/Hosp visits due to AECOPD. Smoking cessation encouraged Jun, Age-related osteoporosis without current pathological fracture (ICD-10 - M81.0) Calcium and Vitamin D supplements. Intolerance to Fosamax Never initiated Prolia DEXA Jun, Screening mammogram for breast cancer (ICD-10 - Z12.31) Screening mammogram due Continue SBE Jun, Petechial rash (ICD-10 - R23.3) Seems to be improving. Assocated w/ venous congestion. Labs normal, monitor for now but seems to be improving Jun, Chronic venous insufficiency (ICD-10 - I87.2) Avoid salt and elevate lower extremities, support stockings, inspect legs and feet daily for blisters and ulcerations. May be worsened by Lyrica [facility] Other 03-20-2023 Evaluation note* Encounter Date Diagnosis Assessment Notes Treatment Notes Treatment Clinical Notes May, Mucopurulent chronic bronchitis (ICD-10 - J41.1) Continue mucinex as needed. ANGELICA as needed May, Petechial rash (ICD-10 - R23.3) Initiate evaluation for vasculitis. Continue Plavix for now May, Lumbar spondylosis (ICD-10 - M47.816) The patient is instructed to avoid bending, twisting or lifting. They are to use intermittent heat and ice as needed. They may schedule a massage or gentle manipulation. They may safely use Tylenol as needed. May, GERD (gastroesophageal reflux disease) (ICD-10 - K21.9) Diet instructions: Smaller portions, avoid eating and laying flat, avoid eating or drinking prior to bedtime. Weight loss. May, Idiopathic peripheral neuropathy (ICD-10 - G60.9) Fall precautions, continued use of assistive device. May, Irritable bowel syndrome with diarrhea (ICD-10 - K58.0) Diet instructions, keep active and Bentyl as needed May, Fatigue, unspecified type (ICD-10 - R53.83) Healthy diet and keep active [facility] Other 03-03-2023 Evaluation note* Encounter Date Diagnosis Assessment Notes Treatment Notes Treatment Clinical Notes May, Lumbar spondylosis (ICD-10 - M47.816) [facility] Other 03-03-2023 Evaluation note* Encounter Date Diagnosis Assessment Notes Treatment Notes Treatment Clinical Notes May, Acute bronchitis due to other specified organisms (ICD-10 - J20.8) [facility] Other 02-28-2023 Evaluation note* Encounter Date Diagnosis Assessment Notes Treatment Notes Treatment Clinical Notes Apr, Acute bronchitis due to other specified organisms (ICD-10 - J20.8) Instructed to use Robitussin or Mucinex for cough, saline or Flonase NS for congestion, Tylenol for pain and fever. Apr, Chronic obstructive pulmonary disease with (acute) lower respiratory infection (ICD-10 - J44.0) Continue Mucinex and push fluids. Apr, Chronic obstructive pulmonary disease with (acute) exacerbation (ICD-10 - J44.1) Continue ADvair and increase use of ANGELICA to every 4 hours as needed for cough and dyspnea [facility] Other 02-28-2023 Evaluation note* Encounter Date Diagnosis Assessment Notes Treatment Notes Treatment Clinical Notes Apr, Chronic obstructive pulmonary disease with (acute) exacerbation (ICD-10 - J44.1) [facility] Other 02-02-2023 Evaluation note* Encounter Date Diagnosis Assessment Notes Treatment Notes Treatment Clinical Notes Apr, Lumbar spondylosis (ICD-10 - M47.816) [facility] Other 01-04-2023 Evaluation note* Encounter Date Diagnosis Assessment Notes Treatment Notes Treatment Clinical Notes Mar, Lumbar spondylosis (ICD-10 - M47.816) [facility] Other 01-03-2023 Evaluation note* Encounter Date Diagnosis Assessment Notes Treatment Notes Treatment Clinical Notes Mar, Diverticular disease (ICD-10 - K57.90) continue dicyclomine as needed. Mar, Alternating constipation and diarrhea (ICD-10 - R19.8) start metamucil gummies every day. Mar, GERD (gastroesophageal reflux disease) (ICD-10 - K21.9) patient to continue pantoprazole [facility] Encounter Date Diagnosis Assessment Notes Treatment Notes Treatment Clinical Notes Nov, Lower abdominal pain (ICD-10 - R10.30) PATIENT STATES THAT SHE DOES HAVE BURNING. Nov, Constipation (ICD-10 - K59.00) PATIENT STATES MOVING BOWELS EVERYDAY PATIENT DID REDUCE THE DICYCLOMINE TO NEEDED WHN CONSTIPATED THIS MADE IT WORSE PATIENT IS ADVISED WE WILL START MOVANTIK [facility] Other 09-01-2022 Evaluation note* Encounter Date Diagnosis Assessment Notes Treatment Notes Treatment Clinical Notes Nov, GERD (gastroesophageal reflux disease) (ICD-10 - K21.9) [facility] Other 08-11-2022 NotePROCEDURE: XR HIP RT 2 3V W PELVIS COMPARISON: None. HISTORY: Injury of right hip region FINDINGS: BONES:No acute fracture or dislocation. Minimal degenerative osteoarthropathy of the hips SOFT TISSUES:Negative. No visible soft tissue swelling. EFFUSION:None visible. OTHER: Negative. IMPRESSION: No acute abnormality Electronically authenticated by: JANNA LAWTON Date: 2021-10-20 12:03[facility]06-27-2022 Evaluation note* Encounter Date Diagnosis Assessment Notes Treatment Notes Treatment Clinical Notes Aug, Age-related osteoporosis without current pathological fracture (ICD-10 - M81.0) I do not see any acute fracture at this time. Unfortunate I do not feel there is much we can offer her for her pain. Aug, Idiopathic peripheral neuropathy (ICD-10 - G60.9) I believe the patient's hands and feet symptoms are a peripheral neuropathy. If she wanted further evaluation of that she would need to get an EMG and nerve conduction study. She would see neurology for that testing. This would also evaluate her for possible cervical radiculopathy although I think that is less likely. [facility] Other 04-04-2022 Evaluation note* Encounter Date Diagnosis Assessment Notes Treatment Notes Treatment Clinical Notes Jun, LUQ abdominal pain (ICD-10 - R10.12) CONTINUE DICYCLOMINE 20 MG TID RTO 6-8 WEEKS Jun, Irritable bowel syndrome with diarrhea (ICD-10 - K58.0) Jun, Bloating (ICD-10 - R14.0) Jun, GERD (gastroesophageal reflux disease) (ICD-10 - K21.9) STOP OMEPRAZOLE [facility] Other 02-02-2022 Evaluation note* Encounter Date Diagnosis Assessment Notes Treatment Notes Treatment Clinical Notes Apr, Contact with and (suspected) exposure to other viral communicable diseases (ICD-10 - Z20.828) Apr, Viral upper respiratory illness (ICD-10 - J06.9) Drink plenty of fluids, get plenty of rest. Continue your home medications as prescribed. Take the Zithromax and prednisone as prescribed until gone. Take the Diflucan as prescribed until gone. Follow-up with your family physician if no improvement in 2 to 3 days. Go to the ER for worsening symptoms or concerns Apr, Other Additional time spent conducting pre-visit phone call, screening for symptoms, instructions on social distancing, application and removal of PPE, and cleaning of examination room, equipment and supplies was preformed. Patient education given for testing methodology and results. Patient care instructions given in writting by [facility] document. [facility] Other 11-11-2021 Evaluation note* Encounter Date Diagnosis Assessment Notes Treatment Notes Treatment Clinical Notes Jan, Irritable bowel syndrome with diarrhea (ICD-10 - K58.0) OBTAIN COLONOSCOPY FROM [facility] [place] 06/2019Jan, Lower abdominal pain (ICD-10 - R10.30) STOP DICYCLOMINE PT TO REPORT PROGRESS Jan, Bloating (ICD-10 - R14.0) Jan, Rectal burning (ICD-10 - K62.89) [facility] Other 09-28-2021 Evaluation note* Encounter Date Diagnosis Assessment Notes Treatment Notes Treatment Clinical Notes Nov, Irritable bowel syndrome with diarrhea (ICD-10 - K58.0) Nov, Generalized abdominal pain (ICD-10 - R10.84) Nov, Abdominal bloating (ICD-10 - R14.0) Nov, History of ischemic colitis (ICD-10 - Z87.19) Nov, Other CT ABD /PELVIS START DICYCLOMINE 20 MG TID ROT 4-6 WEEKS Diarrhea material was printed [facility] Other Evaluation + Plan note No data available for this section [facility] [facility] evaluation noteNo InformationNortApptentive Other Evaluation noteNo assessment information available [facility] Work Phone: Evaluation note* Diagnosis 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 documented in this encounter [facility] Work Phone: History general Narrative - Reported* Type Description Date Medical History CVA x 3 Medical History Fibromyalgia Medical History COPD Medical History Neuropathy Medical History DDD Medical History depression Medical History hepatitis B 1972 Medical History diverticulitis hx Surgical History HYSTERECTOMY Surgical History Hysterectomy 1980 Surgical History CTR B/L 2010 Surgical History Lung surgery, pneumothorax 1981 Surgical History r/o neck lesion, bx salivary gl and HHT Hospitalization History Hep B 1972 Hospitalization History diverticulitis [employer] Other History general Narrative - Reported* Type Description Date Medical History CVA x 3 Medical History Fibromyalgia Medical History COPD Medical History Neuropathy Medical History DDD Medical History depression Medical History hepatitis B 1972 Medical History diverticulitis hx Surgical History HYSTERECTOMY Surgical History Hysterectomy 1980 Surgical History CTR B/L 2010 Surgical History Lung surgery, pneumothorax 1981 Surgical History r/o neck lesion, bx salivary gl and HHT Surgical History excision vaginal polyp 04/2022 Hospitalization History Hep B 1972 Hospitalization History diverticulitis Hospitalization History chest pain in Jan 2022 - non cardiac [employer] Other History general Narrative - ReportedNoApptentive Other Hisgtrt general Narrative - Reported* Type Description Date Medical History CVA x 3 Medical History Fibromyalgia Medical History COPD Medical History Neuropathy Medical History DDD Medical History depression Medical History hepatitis B 1972 Medical History diverticulitis hx Medical History Arthritis Medical History hepatitis B Medical History migraine headache Medical History osteoporosis Medical History chronic depression Medical History anxiety Surgical History HYSTERECTOMY Surgical History Hysterectomy 1980 Surgical History CTR B/L 2010 Surgical History Lung surgery, pneumothorax 1981 Surgical History r/o neck lesion, bx salivary gl and HHT Surgical History excision vaginal polyp 04/2022 Hospitalization History Hep B 1973 Hospitalization History diverticulitis Hospitalization History chest pain in Jan 2022 - non cardiac [employer] Other Hospital Discharge instructions Additional Instructions DISCHARGE INSTRUCTIONS FOR ENDOSCOPY FOR COLONOSCOPY: -Expect a gassy or full feeling after a colonoscopy. Report any NEW abdominal pain or vomiting. -Watch for rectal bleeding if you have a polyp removed. You may have oozing, but notify the doctor if you pass clots. -Avoid aspirin for 2 days IF a polyp is removed. -It is important to keep your appointments for follow up examinations because polyps can grow back. FOR HERNANDEZ/EGD/ERCP/PEG: -Your throat may feel sore today from the scope that the doctor passed through your throat to visualize your stomach. Take a throat lozenge or suck on ice to ease the discomfort. -Do NOT smoke. -You may notice some streaks of blood in your sputum if the doctor has taken a biopsy. Notify the doctor if you cough up large amounts of blood. -Expect a gassy or full feeling after esophagoscopy. Report any persistent pain or vomiting. -Take it easy today. You need not stay in bed, but avoid strenuous activities such as jogging. FOR SEDATION FOR 24 HOURS: -NO driving -Do NOT operate machinery such as power tools, lawn mowers, snow blowers, sewing machines, etc. -Avoid alcoholic beverages and drugs for allergies, nerves, or sleep. -Do NOT stay alone. Do NOT leave your child unattended. -Do NOT make important personal or business decisions or sign any legal documents. -Eat solid foods and drink liquids in smaller amounts than usual until normal appetite returns. If you should experience an upset stomach, liquids high in sugar content (soda, Ned-aid, non-acid juices) are recommended. -You can resume normal activities tomorrow. FOLLOW UP Please call the office and make a follow up appointment to see me in 6-8 weeks. Lialda 4 p.o. every morning Konsyl Gummies 3 p.o. every morning -Notify the doctor if you have any problems. -Office number [phone] [facility] Hospital Work Phone: Hospital Discharge instructions No data available for this section [facility] progress note No data available for this section [facility] reason for visit NarrativePAIN MANAGEMENT REFERRAL UPDATESkagit [facility] Hospital [employer] Other Chief Complaint and Reason for Visit Chief Complaint Constipation, Abdomi nal Pain Chief Complaint Vaginal discharge Chief Complaint K86.2 Chief Complaint K86.2 dysuria Chief Complaint flank pain, dysuria Z87.81 Family History Relationship Condition Age at Onset Recorded Date/T jose grandparent Malignant neoplasm of breast Unknown Not Specified Heart disease Unknown Advance Directives Advance Directive Response Recorded Date/ Time Advance Directives No April 18, 2019 2:20am Advance Directive Response Recorded Date/ Time Advance Directives No April 18, 2019 3:20am Summary Purpose Reason for Referral Reason evaluate and kwasi at Diagnosis 1 Age-related osteopor osis with current pathological fracture, initial encounter (M80.00XA) Referral Organization [facility] Referring Provider First Name Ana Referring Provider Last Name Kim Referring Provider Specialty Nurse Pract itioner Referred Organization [facility] Pain Managemen t Referred Provider Christo Lobo [address] [place],[address] Referred Provider Specialty Pain Medicin e Referral Priority Routine General Notes Rebeca Pleitez 11:19:46 AM >received today, patient did just have MRI ordered but has already had CT of the Lumbar spine completed. Sending p2p at this time for scheduling Reason evaluate and kwasi at Diagnosis 1 Age-related osteopor osis with current pathological fracture, initial encounter (M80.00XA) Referral Organization [facility] [employer] Referring Provider First Name Ana Referring Provider Last Name Kim Referring Provider Specialty Nurse Pract itioner Referred Organization [facility] Referred Provider Rebeca Munguia Referred Address [address],[address] Referred Provider Specialty Nurse Practi tioner Referral Priority Routine General Notes Rebeca Pleitez 02:57:56 PM >received today, sending p2p at this time for scheduling Reason 01/23/23 Aleksey off ice - lumbar compression fracture - imaging at [facility] Diagnosis 1 Compression fracture of lumbar vertebra, unspecified lumbar vertebral level, initial encounter (S32.000A) Referral Organization [facility] Transmension marcell Referring Provider First Name Yolanda Referring Provider Last Name Kathy Referring Provider Specialty [facility] [employer] Referred Organization [facility] Referred Provider Robin Flannery Referred Address ,[place], [place],[address] Referred Provider Specialty Orthopedic S urgery Referral Priority Routine Referral Appointment Date 2023-01-23 General Notes Mirna Bruce 04:32:13 PM >received today, attachments made, notes locked, referral faxed Mirna Bruce 01/22/2023 10:47:34 AM >per [facility] EPIC, pt is schedled Mirna Bruce 01/24/2023 09:26:34 AM >notes scanned into chart for review. closing out referral Reason *FU 01/22 Aleksey of fice - lumbar compression fracture - imaging at [facility] Diagnosis 1 Compression fracture of lumbar vertebra, unspecified lumbar vertebral level, initial encounter (S32.000A) Referral Organization [facility] [employer]cell Referring Provider First Name Yolanda Referring Provider Last Name Kathy Referring Provider Specialty [facility] [employer] Referred Organization [facility] Referred Provider Robin Flannery Referred Address ,[place], [place],[address] Referred Provider Specialty Orthopedic S urgery Referral Priority Routine General Notes Mirna Bruce 04:32:13 PM >received today, attachments made, notes locked, referral faxed Additional Source Comments REASON FOR VISIT (unrecogniz ed section and content) PT HERE WITH COMPLAINTS OF D IARRHEA, HISTORY OF COLITISPATIENT HERE FOR 6 WEEK FOLLOW UP VISITMESALAMINEClinicalClinical Acute IllnessDIFLUCAN#1 WHITE EQUINOX, PRODUCTIVE COUGH, CHEST CONGESTIONPT HERE FOR 4 MONTH FOLLOW UP IRRITABLE BOWEL SYNDROME WITH DIARRHEA. PT COMPLAINING OF ABDOMINAL BURNING, GERD, GAS, BLOATING AND LUQ ABDOMINAL PAIN. PT DID RE-START THE DICYCLOMINENo InformationCompression Fx MRI TBHClinical Acute IllnessmedicationLOWER ABDOMINAL PAIN/CONSTIPATIONClinicalNo InformationNo InformationPATIENT HERE FOR FOLLOW UP COLONOSCOPY. PT WAS TO START MESALAMINE 4.8GM DAILY. stopped mesalamine after 6-8 weeks due to diarrhea & cost. Using Dicyclomine prnMedication RefillREFILLprescription refillNo Informationprescription refillRefillLyricaHEADACHES, BODY ACHES, COUGH, NEGATIVE COVID X2No Informationprescription refillUpdateWants in todayRASH1 month Follow uppossible UTIHEADACHES, BODY ACHES, COUGH, NEGATIVE COVID [id number] InformationRefillTesting Resultship painmessageRefillRefillReferral UpdatePRODUCTIVE COUGH, CONGESTION3 month Follow uprefillPatient here for 3-4 follow uprefillClinical Acute MedicinemessageNo Informationmessagedepression medicationREFILLGowanda State Hospital HHportable o2 [facility] HHWheelchair Ahntrhqitsfhl9o for wheel bbenpv7r for wheel chairmedication for yeast infectionClinical Acute IllnessrefillCongestion, Coughing-COVID [phone] Follow UP-Cant get around- [phone] ab w/contrast-attention to pancreasMRI ordermessageTBH Follow UP-Cant get around- [phone] fracturemessageadvice pleasediscussion about osteoporosis Care Teams (unrecognized sec tion and content) Team Status: Inactive Member Role Status Augusto Anthony DO Primary Care Provider Active Kiran Barksdale MD Attending Provider Active Team Status: Active Member Role Status Augusto Anthony DO Primary Care Provider Active Team Status: Inactive Member Role Status Augusto Sanford APRN Attending Provider Active Team Status: Active Member Role Status Dates Yolanda Chavez MD Primary Care Provider Active Team Status: Inactive Member Role Status Dates Kiran Barksdale MD Attending Provider Active Yolanda Chavez MD Primary Care Provider Active Team Status: Inactive Member Role Status Dates Yolanda Chavez MD Attending Provider Active Team Status: Inactive Member Role Status Dates Yolanda Chavez MD Attending Provider Active PHYSICIAN NO FAMILY Primary Care Provider Active Team Status: Inactive Member Role Status Dates Yolanda Chavez MD Primary Care Provider Active MACARIO FelderC Attending Provider Active Goals (unrecognized section and content) Goals may be documented in a n alternate section INFORMATION SOURCE (unrecogn ized section and content) DATE CREATED AUTHOR 08/18/2022 [facility] DATE CREATED AUTHOR AUTHOR'S ORGANIZ ATION 12/27/2022 [facility] DATE CREATED AUTHOR AUTHOR'S ORGANIZ ATION 01/29/2023 [facility] DATE CREATED AUTHOR AUTHOR'S ORGANIZ ATION 03/03/2023 [facility] FOR RECORDS PERTAINING TO PATIENTS WHO ARE OR HAVE BEEN ENROLLED IN A CHEMICAL DEPENDENCY/SUBSTANCEABUSE PROGRAM, SOME INFORMATION MAY BE OMITTED. This clinical summary was aggregated from multiple sources. Caution should be exercised in using it in the provision of clinical care. This summary normalizes information from multiple sources, and as a consequence, information in this document may materially change the coding, format and clinical context of patient data. In addition, data may be omitted in some cases. CLINICAL DECISIONS SHOULD BE BASED ON THE PRIMARY CLINICAL RECORDS. [employer] provides no warranty or guarantee of the accuracy or completeness of information in this document.
--- NOTE | 2023-03-20 15:33 | MR_ITS ---
The [address] [address] Patient Name: TYRESE GUTIERRES MRN: [id number] date: 1955 Sex: F Assigned Patient Location: MRI Current Patient Location: MRI Accession/Order Number: [id number] Exam Date: 03/20/2023 15:45 Report Date: 03/20/2023 16:59 At the request of: ENRIQUETA ANDERSON Procedure: MR lumbar spine wo con Exam: MR scan lumbar spine without contrast. COMPARISON: None. FINDINGS: Biconcave depression in the endplates of T11 with marrow edema involving the anterior middle column. Residual craniocaudad dimension of the vertebral body of approximately 10 mm. Biconcave depression of the T12 vertebral body with mild marrow edema. Residual craniocaudad dimension of 8 mm. Mild depression of the superior endplate of L2 with evidence of prior vertebroplasty. No evidence of marrow edema. Mild depression superior endplate of L3 without marrow edema. Mild depression superior endplate of L5 without marrow edema. The vertebral bodies and disc spaces are otherwise normal in appearance. No evidence of central spinal canal stenosis. Foraminal narrowing to the left of midline L5-S1. No evidence of central spinal canal stenosis. No evidence of disc herniation. The paraspinal soft tissues are normal. MR/MR lumbar spine wo con IMPRESSION: Acute compression fracture of T11 and T12 with marrow edema. No evidence of encroachment upon the central spinal canal. Electronically authenticated by: Madiha HICKS Date: 03/20/2023 16:59
== END 2023-03-20 15:29 | disposition home or self-care (01) ==
LOC: MRI 15:28
PROVIDERS: PCP Family Medicine; Visit Provider Nurse Practitioner Family
DX: M80.08XA Age-related osteoporosis with current pathological fracture, vertebra(e), initial encounter for fracture (principal)
CPT/HCPCS: 72148

== ENCOUNTER 2023-04-30 11:49 | Outpatient (OUT) | payer MEDICARE, SELFPAY ==
--- NOTE | 2023-04-30 | XR_ITS ---
[address] [address] Patient Name: TYRESE GUTIERRES MRN: [id number] date: 1955 Sex: F Assigned Patient Location: Current Patient Location: Accession/Order Number: [id number] Exam Date: 04/30/2023 11:58 Report Date: 05/01/2023 14:58 At the request of: CELIA BOATENG Procedure: XR knee RT 2V PROCEDURE: XR knee RT 2V HISTORY: RIGHT KNEE PAIN COMPARISON: XR knee right 02/05/2023 FINDINGS: BONES:Stable subacute to remote compression fracture of lateral tibial plateau. Unremarkable femoral condyles and patella. SOFT TISSUES:No visible soft tissue swelling. EFFUSION:None visible. OTHER: Negative. XR/XR knee RT 2V IMPRESSION: 1. Stable remote fracture and compression of lateral tibial plateau. Electronically authenticated by: CELIA CORMIER Date: 05/01/2023 14:58
--- OUTSIDE RECORDS SUMMARY | 2023-04-30 11:54 | XMS_ITS | CCD ---
Author Name Unknown Address [address] [place] [address] Organization [facility] Care Team Providers Care Automated Teller Manager Name Role Phone Janna Pina Unavailable Shira Cunningham Unavailable Ambrose Torres Unavailable Kiran Amaya Unavailable DO Phani Pruitt Primary Care Provider MD Kiran Amaya Attending Provider Phani Pruitt Unavailable SHEILA Sanford Attending Provider [phone] Vanessa Sanford Unavailable OANH .SANTA Admitting Unavailable EDMOND, DR COHEN Primary Care Unavailable EDMOND, DR COHEN Consulting Unavailable OANH ., SANTA Attending Unavailable COLUMBA ., AINSLEY Attending Unavailable COLUMBA ., AINSLEY Admitting Unavailable EDMOND, DR COHEN Primary Care Unavailable STEPHANIE DODD Consulting Unavailable COLUMBA ., AINSLEY Consulting Unavailable BRE ., DR KIEL De Jesus Attending Unavailable BRE ., DR KIEL De Jesus Admitting Unavailable EDMOND, DR COHEN Primary Care Unavailable HOY ., DR WASLH Consulting Unavailable BRE ., DR KIEL De Jesus Consulting Unavailable GRECHNY ., PAUL BURRELL Consulting [...] Unavailable EDMOND, DR COHEN Primary Care Unavailable BALL, DR COHEN Admitting Unavailable BALL, [...] Care Unavailable SHAKIRA PINEDA Consulting Unavailable SARA IILYRIC Consulting Unavailable KARASIK ., DR QUICK Admitting Unavailabl e KARASIK ., DR QUICK Consulting Unavailabl e KARASIK ., DR QUICK Attending Unavailabl e BALL, DR COHEN Primary Care Unavailable MERE, DR WAI Caraballo Attending Unavailable MERE, DR WAI Caraballo Admitting Unavailable MERE, DR WAI Caraballo Consulting Unavailable EDMOND, DR COHEN Primary Care Unavailable CHAIM MEZA Consulting Unavailable Yolanda Chavez Unavailable Sandra Flores Unavailable MD Kiran Amaya Attending Provider MD Yolanda Chavez Primary Care Provider MD Yolanda Chavez Attending Provider [phone] Unavailable Primary Care Provider UnavailPHANI [place] Primary Care Physician [place] RAMOS Attending Unavailable NO FAMILY, PHYSICIAN Primary Care Provider Unava ilROBIN Mae A Referring Unavailable ROBIN FLANNERY Referring Unavailable ROBIN FLANNERY Attending Unavailable MD Yolanda Chavez Attending Provider MD Yolanda Chavez Primary Care Provider [phone] ANUSHKA Kim Attending Provider Ana Kim Unavailable Yolanda Chavez Attending Unavailable NO FAMILY, PHYSICIAN Primary Care Unavailable Yolanda Chavez Admitting Unavailable Yolanda Chavez Attending Unavailable Yolanda Chavez Admitting Unavailable Yolanda Chavez Primary Care Unavailable Ana Kim Admitting Unavailable Ana Kim Attending Unavailable Vanessa Sanford Admitting Unavailable Vanessa Sanford Attending Unavailable Kiran Amaya Attending UnavailYolanda Bradley Primary Care Unavailable Kiran Amaya Admitting Unavailcaio de jesus Allergies Allergy Classification Reported Allergen(s) Allergy Type Date of Onset Reaction(s) Facility (20 sources) cefdinir Drug Allergy frequent watery stools, et thrush [facility] Other (20 sources) Ketorolac Drug Allergy Unknown, Diarrhea [facility] (20 sources) varenicline Drug Allergy Unknown, Muscle Pain [facility] (20 sources) vioxx, antiinflammatories Propensity to adverse reactions Unknown [facility] Other (20 sources) Statins Support Drug allergy Unknown [facility] Other (9 sources) varenicline; Translations: [Chantix] Drug Allergy Unknown [facility] Repository (2 sources) Ketorolac Drug Allergy Unknown [facility] Other (20 sources) Sulfamethoxazole / Trimethoprim Drug Allergy Unknown [facility] Other (7 sources) rofecoxib; Translations: [rofecoxib] Drug Allergy Migraine [facility] (7 sources) NSAIDS (Non-Steroidal Anti-Inflamma; Translations: [NSAIDS (Non-Steroidal Anti-Inflamma] Allergy to substance Diarrhea [facility] (7 sources) Jwkxdlg-VTM-TzK Reductase Inhibitor; Translations: [Oiggetc-RSO-ZoO Reductase Inhibitor] Allergy to substance Diarrhea [facility] (1 source) black walnut pollen extract Drug Allergy [facility] Repository (1 source) cefdinir Drug Allergy [facility] (1 source) Ketorolac Drug Allergy [facility] (1 source) NSAIDs Drug allergy (disorder) [facility] (1 source) rofecoxib Drug Allergy [facility] (1 source) Sulfamethoxazole / Trimethoprim Drug Allergy [facility] (20 sources) Ibuprofen Drug Allergy Unknown [facility] Other (20 sources) Simvastatin Drug Allergy Unknown [email or web address] Other (20 sources) zoledronic acid Drug Allergy Comment:Bone pain [email or web address] Other (5 sources) Allergies Reconciled Propensity to adverse reactions Unknown [email or web address] Other (20 sources) Toradol *ANALGESICS - ANTI-INFLAMMATORY* Propensity to adverse reactions Unknown [email or web address] Other (20 sources) Cholesterol Drug allergy Unknown [email or web address] Other (20 sources) ANTI INFLAMMATORY Propensity to adverse reactions Unknown [email or web address] Other (5 sources) patient allergy list reviewed by nurse or physicia Propensity to adverse reactions Comment:Done [email or web address] Other (1 source) Ketorolac Drug Allergy [facility]ository (1 source) varenicline Drug Allergy [facility] Rep[facility] Medications Current Medications Medication Drug Class(es) Dates Sig (Normalized) Sig (Original) acetaminophen 325 mg / HYDROcodone bitartrate 5 mg oral tablet (20 sources) Opioid Agonist Start: 03-21-2023 take 1 tablet by mouth every six hours HYDROcodone-Aceta minophen 5-325 MG take 1 tablet by mouth every 6 hours if needed for 30 Apr, Active Start: 02-20-2023 take 1 tablet by arlene th every six hours HYDROcodone-Acetaminophen 5-325 MG take 1 tablet by mouth [...] every 6 hrs for 30 days p/u /, start 04/14Apr, Active Start: 01-19-2022 Hydrocodone-Ac etaminophen [...] 325 MG PO Four times daily 0 10 May 01, 2019 June 18, 2019 4:31pm Start: 04-18-2019 End: 04-19-2019 take 5-325 mg by mouth four times daily Hydrocodone-Acetaminophen Discontinued 5 - 325 MG PO Four times daily April 18, 2019 12:00am April 19, 2019 8:08am HYDROcodone-Acet aminophen Active ALPRAZolam 0.5 mg oral tablet (20 sources) Benzodiazepine Start: 04-04-2023 take 1 tablet by mouth three times daily ALPRAZolam 0.5 MG take 1 tablet by mouth three times a day for 30 Mar, Active Start: 03-06-2023 take 1 tablet by arlene th three times daily ALPRAZolam 0.5 MG take 1 tablet by mouth three times a day for 30 Feb, Active Start: 02-05-2023 take 1 tablet by arlene th three times daily ALPRAZolam 0.5 MG take 1 tablet by mouth three times a day for 30 Jan, Active Start: 01-01-2023 take 1 tablet [...] Alprazolam Discontinue d 0.5 MG PO Daily 10 April 19, 2019 8:05am June 18, 2019 4:28pm [...] Discontinued 10 MG PO Four times daily 29 07June 26, 2019 9:50am July 02, 2019 7:26am [...] Capsule Active 100 MG PO Twice daily 60 June 30, 2019 11:00pm escitalopram 10 mg oral tablet (20 sources) Serotonin Reuptake Inhibitor take 1 tablet by mouth once daily Escitalopram Oxalate 10 MG take 1 tablet by mouth once daily for 30 Active fluconazole 150 mg oral tablet (20 [...] Active ibandronic acid 150 mg oral tablet (5 sources) Bisphosphonate take 1 tablet by mouth [...] 2021 12:44pm take 4 tablets by mo ut every twenty-four hours Lialda 1.2 GM 4 [...] Start: 01-02-2022 take 1 tablet by arlene every twenty-four hours predniSONE 20 mg oral tablet (20 sources) Start: 08-25-2022 predniSONE 20 MG take 2 tabs po daily x 5 days Orally Once a day for 5 Aug, Active Start: 08-03-2022 take 2 tablets by [facility] every twenty-four hours predniSONE 20 MG 2 tablets Orally Once a day for 5 days July, Active Start: 05-09-2022 predniSONE 20 MG 2 Orally Once a day for 5 days Apr, Active Start: 04-13-2021 [facility] hours predniSONE 20 MG 1 tablet Orally bid for 5 day(s) Apr, Active Start: 01-20-2021 [facility] twenty-four hours predniSONE 20 MG 1 [...] capsule by mouth twice a day for 30 Apr, Active Start: 10-04-2022 take [address] [facility] every twelve hours Lyrica 150 MG 1 capsule Orally Twice a day for 30 days Sep, Active Start: 04-28-2022 take [address] [facility] every twelve hours Lyrica 75 MG 1 [...] 30, 2019 11:00pm July 05, 2021 12:43pm [id number] 200 actuat albuterol 0.09 mg/actuat metered dose [...] Base) MCG/ACT Inhalation for 16 Not-Taking amylase 800909 unt / lipase 14072 unt / protease [id number] unt delayed release oral capsule (11 sources) Start: 07-05-2021 End: 07-06-2021 take [id number] capsules by mouth once daily Pvpzww-Lvaxynct-Pqfhplh (Creon) 36,000-114,000- 180,000 unit capsule,delayed release(DR/EC) Discontinued 1 CAP PO Daily July 04, 2021 11:00pm July 06, 2021 6:56am Start: 06-13-2021 take 1 capsule by [facility] three times daily at mealtime Creon [id number] UNIT 1 CAPSULE Orally THREE TIMES A DAY WITH MEALS for 30 days Jun, Active azithromycin 250 mg oral tablet (20 sources) Macrolide Antimicrobial Start: 12-26-2022 Azithromycin 250 MG as directed Orally 2 tabs po today, then 1 tab daily x 4 more days for Dec, Not-Taking/PRN Start: 08-25-2022 Azithromycin 2 50 [...] Active Start: 02-28-2021 take 1 tablet by [facility] every twelve hours Cipro 500 MG 1 [...] Loperamide Discontinued 2 MG PO Twice daily June 30, 2019 11:00pm July 05, 2021 [...] 2019 7:26am take 1 tablet by arlene once daily Omeprazole 20 MG 1 tablet 30 minutes before morning meal Orally Once a day Active oxyCODONE hydrochloride 5 mg oral tablet (6 sources) Opioid Agonist Start: 07-01-2019 End: 01-19-2022 take 5 mg by mouth every four hours Oxycodone Discontinued 5 MG PO Every 4 hours 28 09July 01, 2019 January 19, 2022 1:16pm polysaccharide [...] region] Episodic Other aftercare (2 sources) Other medical terminologist (current) drug therapy; Translations: [OTH DIRECTOR GRAPHICS CURRENT DRUG THERAPY] Onset: 06-08-2022 Episodic Other aftercare (10 sources) Long-term current use of drug therapy; Translations: [Other medical terminologist (current) drug therapy] Episodic Other and ill-defined [...] Translations: [Polyp of vagina] Episodic Other fractures (8 sources) Compression fracture of thoracic spine; Translations: [...] fractures (1 source) Wedge compression fracture of T11-T12 vertebra, subsequent encounter for fracture with delayed healing Episodic Other gastrointestinal disorders (20 sources) Irritable [...] injuries and conditions due to external causes (7 sources) H/O: vertebral fracture; Translations: [Personal history [...] sources) High risk drug monitoring status; Translations: [long term acute care registered nurse (current) use of opiate analgesic] Onset: 11-14-2016 Episodic Other aftercare (1 source) assisted (current) use of opiate analgesic; Translations: [long term acute care registered nurse (current) use of opiate analgesic] Onset: 11-14-2016 [...] lower back and pelvis, initial encounter] Onset: 10-24-2021 Episodic Syncope (11 sources) Syncope and collapse; [...] AP/LAT/FLX/E XTon 02-27-2023 XR lumbar spine AP/LAT/FLX/EXT [facility] [place] [address] XRay Report Signed Patient: Afia Gutierres MR#: [id number] : 1955 Acct:[id number] Age/Sex: 67 / F ADM Date: 02/27/23 Loc: XD Room: Type: [facility] Attending Dr: Ana REVELES Copies to: ANUSHKA Quinteros Ordering Provider: ANUSHKA [...] Verito Anderson M.D.02/27/2023 3:16 PM Dictation Location: [place] [address] Transcribed By: [facility] 02/27/231515 Dictated By: Verito Anderson MD 02/27/231512 Signed By: 02/27/23 1516 Normal [facility] Automated erythrocytes count in urine sediment (number/area)Ordered By: Yolanda Chavez on 01-11-2023 RBC Auto (Urine sed) [#/Area] 3-4 [HPF] 0-4 [facility] Automated leukocytes count i n urine sediment (number/area)Ordered By: Yolanda Chavez on 01-11-2023 WBC Auto (Urine sed) [#/Area] 0-1 [HPF] 0-4 [facility] Automated urine sediment jaime cium oxalate crystal count by microscopy (number/high powOrdered By: Yolanda Chavez on 01-11-2023 Calcium oxalate crystals LM.HPF (Urine sed) [#/Area] 3+ [HPF] [facility] Bilirubin Test strip Ql (U)O rdered By: Yolanda Chavez on 01-11-2023 Bilirubin Ql (U) Negative Negative [facility] Color Auto (U)Ordered By: Jeffery Chavez on 01-11-2023 Color (U) Dark yellow Yellow [facility] Dipstick and Microscopicon 1 03-13-2022 Appearance (U) Cloudy Critically abnormal Clear [facility] Comment on above: Order Comment: Name Collection Type:: Clean-Voided Midstream Performed By: #### A DDONUAKIRA, CUU #### [facility] [address] [place] [address] Bacteria,Urine 1+ High None Seen [facility] Comment on above: Order Comment: Name Collection Type:: Clean-Voided Midstream Performed By: #### A DDONUAPLUS, CUU #### [facility] [address] [place] [address] [place] Bilirubin,Urine Negative Normal Negative [facility] Comment on above: Order Comment: Name Collection Type:: Clean-Voided Midstream Performed By: #### A DDONUAPLUS, CUU #### [place] [address] [place] Calcium Oxalate Crystals,Urine 3+ Normal [facility] Comment on above: Order Comment: Name Collection Type:: Clean-Voided Midstream Performed By: #### A DDONUAPLUS, CUU #### [address] Color (U) Dark Yellow Critically abnormal Yellow [facility] Comment on above: Order Comment: Name Collection Type:: Clean-Voided Midstream Performed By: #### A DDONUAPLUS, CUU #### [address] Glucose Ql (U) Normal Normal Normal [facility] Comment on above: Order Comment: Name Collection Type:: Clean-Voided Midstream Performed By: #### A DDONUAPLUS, CUU #### [place] [address] [place] Hyaline Casts,Urine 0-8 Normal 0-8 [facility] Comment on above: Order Comment: Name Collection Type:: Clean-Voided Midstream Result Comment: PERF ORMED BY: [place] [id number] PATHOLOGIST BOARD OF EDUCATION SECRETARY SHELTON NEVAREZ M.D. Performed By: #### A DDONUAPLUS, CUU #### [place] [address] [place] Ketones Ql (U) Trace High Negative [facility] Comment on above: Order Comment: Name Collection Type:: Clean-Voided Midstream Performed By: #### A DDONUAPLUS, CUU #### [place] [address] [place] Leukocyte esterase Test strip Ql (U) Negative Normal Negative [facility] Comment on above: Order Comment: Name Collection Type:: Clean-Voided Midstream Performed By: #### A DDONUAPLUS, CUU #### [place] [address] [place] Nitrite,Urine Negative Normal Negative [facility] Comment on above: Order Comment: Name Collection Type:: Clean-Voided Midstream Performed By: #### A DDONUAPLUS, CUU #### [address] Occult Blood,Urine Negative Normal Negative [facility] Comment on above: Order Comment: Name Collection Type:: Clean-Voided Midstream Result Comment: PERF ORMED BY: [place] [id number] PATHOLOGIST BOARD OF EDUCATION SECRETARY SHELTON NEVAREZ M.D. Performed By: #### A DDONUAPLUS, CUU #### [address] pH (U) 5.5 [pH] Normal 5.0-9.0 [facility] Comment on above: Order Comment: Name Collection Type:: Clean-Voided Midstream Performed By: #### A DDONUAPLUS, CUU #### [address] Protein,Urine Negative Normal Negative [facility] Comment on above: Order Comment: Name Collection Type:: Clean-Voided Midstream Performed By: #### A DDONUAPLUS, CUU #### [address] RBC,Urine 3-4 Normal 0-4 [facility] Comment on above: Order Comment: Name Collection Type:: Clean-Voided Midstream Performed By: #### A DDONUAPLUS, CUU #### [place] [address] [place] Specificy [place],Urine 1.022 Normal 1.001-1.030 [facility] Comment on above: Order Comment: Name Collection Type:: Clean-Voided Midstream Performed By: #### A DDONUAPLUS, CUU #### [facility] [address] Squamous Epithelial Cell,Urine 0-1 Normal 0-2 [facility] Comment on above: Order Comment: Name Collection Type:: Clean-Voided Midstream Performed By: #### A DDONUAPLUS, CUU #### [facility] [address] Urobilinogen,Urine Normal Normal Normal [facility] Comment on above: Order Comment: Name Collection Type:: Clean-Voided Midstream Performed By: #### A DDONUAPLUS, CUU #### [facility] [address] WBC LM.HPF (Urine sed) [#/Area] 0 /[HPF] Normal 0-4 [facility] Comment on above: Order Comment: Name Collection Type:: Clean-Voided Midstream Performed By: #### A DDONUAPLUS, CUU #### [address] Ketones Auto test strip (U) [Mass/Vol]Ordered By: Yolanda Chavez on 01-11-2023 Ketones (U) [Mass/Vol] Trace Negative [facility] - UrinalysisOrder ed By: Yolanda Chavez on 01-11-2023 Hyaline casts LM Ql (Urine sed) 0-8 [LPF] 0-8 [facility] Nitrite Test strip Ql (U)Ord ered By: Yolanda Chavez on 01-11-2023 Nitrite Ql (U) Negative Negative [facility] Protein Auto test strip (U) [Mass/Vol]Ordered By: Yolanda Chavez on 01-11-2023 Protein (U) [Mass/Vol] Negative Negative [facility] Specific gravity Auto test s trip (U) [Rel density]Ordered By: Yolanda Chavez on 01-11-2023 Specific gravity (U) [Rel density] 1.022 1.001-1.030 [facility] Squamous epithelial cells de tection in urine sediment by light microscopyOrdered By: Yolanda Chavez on 01-11-2023 Epithelial cells.squamous LM Ql (Urine sed) 0-1 [HPF] 0-2 [facility] Urine Cultureon 01-11-2023 Bacteria identified Cx Nom (U) ORGANISM: Strep agalactiae - (group b) (O:STRAGA) Calvin Count <10,000 PERFORMED BY: [place] [id number] PATHOLOGIST BOARD OF EDUCATION SECRETARY SHELTON NEVAREZ M.D. Normal [facility] Comment on above: Performed By: #### A DDONUAPLUS, CUU #### [address] Urine bacteria detection by automated methodOrdered By: Yolanda Chavez on 01-11-2023 Bacteria Auto Ql (U) 1+ None Seen [facility] Urine clarity by refractomet ry automatedOrdered By: Yolanda Chavez on 01-11-2023 Clarity Refractometry automated (U) Cloudy Clear [facility] Urine culture routineOrdered By: Yolanda Chavez on 01-11-2023 Bacteria identified Cx Nom (U) Strep agalactiae - (group b) [facility] Urine glucose measurement by automated test strip (mass/volume)Ordered By: Yolanda Chavez on 01-11-2023 Glucose Auto test strip (U) [Mass/Vol] Normal mg/dL Normal [facility] Urine hemoglobin detection b y automated test stripOrdered By: Yolanda Chavez on 01-11-2023 Hemoglobin Auto test strip Ql (U) Negative Negative [facility] Urine leukocyte esterase det ection by automated test stripOrdered By: Yolanda Chavez on 01-11-2023 Leukocyte esterase Auto test strip Ql (U) Negative Negative [facility] Urine sediment crystal ident ification by light microscopyOrdered By: Yolanda Chavez on 01-11-2023 Crystals LM Nom (Urine sed) N/A [facility] Urobilinogen Auto test strip (U) [Mass/Vol]Ordered By: Yolanda Chavez on 01-11-2023 Urobilinogen (U) [Mass/Vol] Normal mg/dL Normal [facility] pH Auto test strip (U)Ordere d By: Yolanda Chavez on 01-11-2023 pH (U) 5.5 [pH] 5.0-9.0 [facility] ED Note-Physicianon 12-26-19 ED Note-Physician [id number] C6#[id number] Normal [facility] Automated erythrocytes count in urine sediment (number/area)Ordered By: Yolanda Chavez on 11-20-2022 RBC Auto (Urine sed) [#/Area] 20-49 [HPF] 0-4 [facility] Automated leukocytes count i n urine sediment (number/area)Ordered By: Yolanda Chavez on 11-20-2022 WBC Auto (Urine sed) [#/Area] Innumerable [HPF] 0-4 [facility] Automated urine color determ inationOrdered By: Yolanda Chavez on 11-20-2022 Color (U) Yellow Normal Yellow [facility] Comment on above: Order Comment: Name Collection Type:: Collection Method Unknown Performed By: #### C UU, ADDONUAPLUS #### [facility] [address] [place] [address] Automated urine sediment jaime cium oxalate crystal count by microscopy (number/high powOrdered By: Yolanda Chavez on 11-20-2022 Calcium oxalate crystals LM.HPF (Urine sed) [#/Area] Rare [HPF] [facility] Bilirubin Test strip Ql (U)O rdered By: Yolanda Chavez on 11-20-2022 Bilirubin Ql (U) Negative Negative [facility] Casts typing in urine sedime nt by light microscopyOrdered By: Yolanda Chavez on 11-20-2022 Casts LM Nom (Urine sed) None seen [LPF] None Seen [facility] Dipstick and Microscopicon 0 11-20-2022 Appearance (U) Turbid Critically abnormal Clear [facility] Comment on above: Order Comment: Name Collection Type:: Collection Method Unknown Performed By: #### C UU, ADDONUAPLUS #### [facility] [address] [place] [address] Bacteria,Urine 4+ High None Seen [facility] Comment on above: Order Comment: Name Collection Type:: Collection Method Unknown Performed By: #### C UU, ADDONUAPLUS #### [facility] [address] [place], [place] [id number] [place] Bilirubin,Urine Negative Normal Negative [facility] Comment on above: Order Comment: Name Collection Type:: Collection Method Unknown Performed By: #### C UU, ADDONUAPLUS #### [facility] [address] [place] [address] Calcium Oxalate Crystals,Urine Rare Normal [facility] Comment on above: Order Comment: Name Collection Type:: Collection Method Unknown Performed By: #### C UU, ADDONUAPLUS #### [facility] [address] [place] [address] Glucose Ql (U) Normal Normal Normal [facility] Comment on above: Order Comment: Name Collection Type:: Collection Method Unknown Performed By: #### C UU, ADDONUAPLUS #### [facility] [address] [place] [address] Hyaline Casts,Urine None Seen Normal 0-8 [facility] Comment on above: Order Comment: Name Collection Type:: Collection Method Unknown Performed By: #### C UU, ADDONUAPLUS #### [facility] [address] [place] [address] [place] Ketones Ql (U) 1+ High Negative [facility] Comment on above: Order Comment: Name Collection Type:: Collection Method Unknown Performed By: #### C UU, ADDONUAPLUS #### [facility] [address] [place] [address] Leukocyte esterase Test strip Ql (U) 4+ High Negative [facility] Comment on above: Order Comment: Name Collection Type:: Collection Method Unknown Performed By: #### C UU, ADDONUAPLUS #### [facility] [address] [place] [address] [place] Nitrite,Urine Negative Normal Negative [facility] Comment on above: Order Comment: Name Collection Type:: Collection Method Unknown Performed By: #### C UU, ADDONUAPLUS #### [facility] [address] [place] [address] [place] Occult Blood,Urine 3+ High Negative [facility] Comment on above: Order Comment: Name Collection Type:: Collection Method Unknown Result Comment: PERF ORMED BY: [place] [id number] PATHOLOGIST BOARD OF EDUCATION SECRETARY SHELTON NEVAREZ M.D. Performed By: #### C UU, ADDONUAPLUS #### [address] Other Casts,Urine None Seen Normal None Seen [facility] Comment on above: Order Comment: Name Collection Type:: Collection Method Unknown Result Comment: PERF ORMED BY: [place] [id number] PATHOLOGIST BOARD OF EDUCATION SECRETARY SHELTON NEVAREZ M.D. Performed By: #### C UU, ADDONUAPLUS #### [address] Protein,Urine Trace High Negative [facility] Comment on above: Order Comment: Name Collection Type:: Collection Method Unknown Performed By: #### C UU, ADDONUAPLUS #### [address] RBC,Urine 20-49 High 0-4 [facility] Comment on above: Order Comment: Name Collection Type:: Collection Method Unknown Performed By: #### C UU, ADDONUAPLUS #### [address] Specificy [place],Urine 1.008 Normal 1.001-1.030 [facility] Comment on above: Order Comment: Name Collection Type:: Collection Method Unknown Performed By: #### C UU, ADDONUAPLUS #### [address] Squamous Epithelial Cell,Urine 1-2 Normal 0-2 [facility] Comment on above: Order Comment: Name Collection Type:: Collection Method Unknown Performed By: #### C UU, ADDONUAPLUS #### [address] Urobilinogen,Urine Normal Normal Normal [facility] Comment on above: Order Comment: Name Collection Type:: Collection Method Unknown Performed By: #### C UU, ADDONUAPLUS #### [facility] [address] WBC,Urine Innumerable High 0-4 [facility] Comment on above: Order Comment: Name Collection Type:: Collection Method Unknown Performed By: #### C UU, ADDONUAPLUS #### [facility] [address] Ketones Auto test strip (U) [Mass/Vol]Ordered By: Yolanda Chavez on 11-20-2022 Ketones (U) [Mass/Vol] 1+ Negative Fi [facility] - UrinalysisOrder ed By: Yolanda Chavez on 11-20-2022 Hyaline casts LM Ql (Urine sed) None seen [LPF] 0-8 [facility] Nitrite Test strip Ql (U)Ord ered By: Yolanda Chavez on 11-20-2022 Nitrite Ql (U) Negative Negative [facility] Protein Auto test strip (U) [Mass/Vol]Ordered By: Yolanda Chavez on 11-20-2022 Protein (U) [Mass/Vol] Trace mg/dL Negative F [facility] Specific gravity Auto test s trip (U) [Rel density]Ordered By: Yolanda Chavez on 11-20-2022 Specific gravity (U) [Rel density] 1.008 1.001-1.030 [facility] Squamous epithelial cells de tection in urine sediment by light microscopyOrdered By: Yolanda Chavez on 11-20-2022 Epithelial cells.squamous LM Ql (Urine sed) 1-2 [HPF] 0-2 [facility] Urine Cultureon 11-20-2022 Bacteria identified Cx Nom (U) ORGANISM: Klebsiella oxytoca (O:KLEOXY) Calvin Count >100,000 Aerobic ARIEL Charge (NMIC56) ------ [...] RESISTANT TO ALL B-LACTAM DRUGS. PERFORMED BY: [place] [id number] PATHOLOGIST BOARD OF EDUCATION SECRETARY SHELTON NEVAREZ M.D. [facility] Comment on above: Performed By: #### C UU, ADDNAIMAUAPLUS #### [address] Urine bacteria detection by automated methodOrdered By: Yolanda Chavez on 11-20-2022 Bacteria Auto Ql (U) 4+ None Seen [facility] Urine clarity by refractomet ry automatedOrdered By: Yolanda Chavez on 11-20-2022 Clarity Refractometry automated (U) Turbid Clear [facility] Urine culture routineOrdered By: Yolanda Chavez on 11-20-2022 Bacteria identified Cx Nom (U) Klebsiella oxytoca [facility] Urine glucose measurement by automated test strip (mass/volume)Ordered By: Yolanda Chavez on 11-20-2022 Glucose Auto test strip (U) [Mass/Vol] Normal mg/dL Normal [facility] Urine hemoglobin detection b y automated test stripOrdered By: Yolanda Chavez on 11-20-2022 Hemoglobin Auto test strip Ql (U) 3+ Negative [facility] Urine leukocyte esterase det ection by automated test stripOrdered By: Yolanda Chavez on 11-20-2022 Leukocyte esterase Auto test strip Ql (U) 4+ Negative [facility] Urine pH measurement by auto mated test stripOrdered By: Yolanda Chavez on 11-20-2022 pH (U) 7.5 [pH] Normal 5.0-9.0 [facility] Comment on above: Order Comment: Name Collection Type:: Collection Method Unknown Performed By: #### C UU, ADDONUAPLUS #### [address] Urobilinogen Auto test strip (U) [Mass/Vol]Ordered By: Yolanda Chavez on 11-20-2022 Urobilinogen (U) [Mass/Vol] Normal mg/dL Normal [facility] MR MRCPon 11-09-2022 MR MRCP [facility] Main [place] [address] [place] [address] MRI Report Signed Patient: Afia Gutierres MR#: [id number] : 1955 Acct:[id number] Age/Sex: 67 / F ADM Date: 11/09/22 Loc: MR Room: Type: [facility] Attending Dr: Kiran Amaya MD Copies to: Kiran Amaya MD Ordering Provider: Kiran Amaya MD Date of Service: 11/09/22 MR/MR MRCP: [...] SUGGESTED. Impression dictated by: Handy Zhou Jr., Sia11/09/2022 10:49 AM Dictation Location: [place] [address] Transcribed By: [facility] 11/09/22 1049 Dictated By: Handy Zhou Jr, DO 11/09/22 1033 Signed By: 11/09/22 1049 [facility] COVID Quick Testingon 2022 Result Negative [email or web address] Other PROF CHEM 8 (BAS METB)on Anion gap [Moles/Vol] 18.4 mmol/L Normal [facility] Comment on above: Performed By: #### B MP, TSH #### [facility] [address] [place] [address] [address] David Cannon Calcium [Mass/Vol] 9.5 mg/dL Normal 8.5-10.1 [facility] Comment on above: Performed By: #### B MP, TSH #### [facility] [address] [place] [address] [address] David Cannon Chloride [Moles/Vol] 104 mmol/L Normal 98-107 [facility] Comment on above: Performed By: #### B MP, TSH #### [facility] [address] [place], [place] [address] Dr. David Cannon CO2 [Moles/Vol] 23.5 mmol/L Normal 21.0-32.0 [facility] Comment on above: Performed By: #### B MP, TSH #### [facility] [address] [place] [address] [address] David Cannon Creatinine [Mass/Vol] 0.87 mg/dL Normal 0.55-1.02 [facility] Comment on above: Performed By: #### B MP, TSH #### [facility] [address] [place] [address] [address] David Cannon EGFR-AF TUVALUAN >60 Normal >=60 [facility] Comment on above: Performed By: #### B MP, TSH #### [facility] [address] [place] [address] [address] David Cannon EGFR-NON AF TUVALUAN >60 Normal >=60 [facility] Comment on above: Performed By: #### B MP, TSH #### [facility] [address] [place] [address] [address] David Cannon Glucose [Mass/Vol] 142 mg/dL Critically high 74-106 [facility] Comment on above: Performed By: #### B MP, TSH #### [facility] [address] [place] [address] [address] David Cannon Potassium [Moles/Vol] 3.9 mmol/L Normal 3.5-5.1 [facility] Comment on above: Performed By: #### B MP, TSH #### [facility] [address] [place] [address] [address] David Cannon Sodium [Moles/Vol] 142 mmol/L Normal 136-145 [facility] Comment on above: Performed By: #### B MP, TSH #### [facility] [address] [place] [address] [address] David Cannon Urea nitrogen [Mass/Vol] 15.0 mg/dL Normal 7.0-18.0 [facility] Comment on above: Performed By: #### B MP, TSH #### [facility] [address] [place] [address] [address] David Cannon Urea nitrogen/Creatinine [Mass ratio] 17.2 mg/mg Normal [facility] Comment on above: Performed By: #### B MP, TSH #### [facility] [address] [place] [address] [address] David Cannon TSHon 07-27-2022 TSH 1.753 uIU/mL Normal 0.358-3.740 [facility] Comment on above: Performed By: #### B MP, TSH #### [facility] [address] [place] [address] [address] David Cannon VITAMIN B12on 07-27-2022 Cobalamin (Vitamin B12) [Mass/Vol] 938.0 pg/mL Normal 193.0-986.0 [facility] Comment on above: Performed By: #### V ITB12 ####[facility] [address] [place] [address]Dr. David Cannon VITAMIN D 25 OHon 07-27-2022 VIT D 25-OH 45.3 ng/mL Normal [facility] Comment on above: Performed By: #### V ITAD ####[facility] [address] [place] [address]DrGerry Cannon VIT D RANGES SEE BELOW Normal [facility] Comment on above: Result Comment: <20 ng/mL Vit D deficient 20 - <30 ng/mL Vit D insufficient 30 - 100 ng/mL Vit D sufficient >100 ng/mL Potential Toxicity Performed By: #### V ITAD ####[facility] [address] [place] [address]DrGerry Cannon XR HIP RT 2 3V W [...] by: JANNA HASSAN Date: 2022-07-27 21:48 Normal [facility] MG MAMM SCREEN 3D ERIC CADon 07-20-2022 MG MAMM SCREEN 3D ERIC CAD Patient: AFIA GUTIERRES Exam Date: 07/20/2022 : 1955 Gender:F Ordering : DR PHANI PRUITT D.O. Admission #: [id number] Family : Order #: [id number] CLICK HERE TO VIEW EXAM RADIOLOGY REPORT [...] colon cancer at age 72. LOCATION: [facility] BREAST COMPOSITION: Scattered areas fibroglandular density. FINDINGS: [...] LUMP SHOULD BE BIOPSIED. Dictated by: Celia Cormier M.D. on 07/20/2022 at 14:02 Approved by: Celia Cormier M.D. on 07/20/2022 at 14:09 Normal [facility] XR DEXA BONE DENSITYon 07-20 XR DEXA [...] High Fracture Risk Electronically authenticated by: CELIA CORMIER Date: 2022-07-20 14:26 Normal [facility] Bacteria Vaginosis, NAAon Atopobium Vaginae Low - 0 Normal . [facility] Comment on above: Order Comment: Reaso n for Exam Vaginal discharge Performed By: #### C ANDIDA,NA, VAGINOSIS #### [facility] , BVAB2 Low - 0 Normal . [facility] Comment on above: Order Comment: Reaso n for Exam Vaginal discharge Performed By: #### C ANDIDA,NA, VAGINOSIS #### [facility] , Megasphaera Low - 0 Normal . [facility] Comment on above: Order Comment: Reaso [...] 06-20-2022 Susan Albicans, JOSH Negative Normal Negative [facility] Comment on above: Order Comment: Reaso n for Exam Vaginal discharge Result Comment: This test was developed and its performance characteristics determined by [facility]. It has not been cleared or approved by the Food and Drug Administration. Performed By: #### C ANDIDA,NA, VAGINOSIS #### [facility] , Susan Glabrata, JOSH Negative Normal Negative [facility] Comment on above: Order Comment: Reaso n for Exam Vaginal discharge Result Comment: This test was developed and its performance characteristics determined by [facility]. It has not been cleared or approved by the Food and Drug Administration. Performed at: =[facility] [id number] Dental Equipment Repairer: Emili Locke MD, Phone: [phone] PERFORMED BY: [address] [place] [address] PATHOLOGIST BOARD OF EDUCATION SECRETARY SHELTON NEVAREZ M.D. Performed By: #### C MANN GARDINER, VAGINOSIS #### [facility] , Urinalysis - AUTOMATEDon Appearance (U) clear [employer] Other Bilirubin Ql (U) Negative [employer] Other Color (U) yellow [email or web address] Other Glucose Ql (U) Negative [employer] Other Hemoglobin Ql (U) Negative [employer] Other Ketones Ql (U) Negative [employer] Other Leukocyte esterase Test strip Ql (U) Negative [email or web address] Other Nitrite Ql (U) Negative [employer] Other pH (U) 5.5 [pH] [email or web address] Other Protein Ql (U) Negative [employer] Other Specific gravity (U) [Rel density] 1.025 [email or web address] Other Urobilinogen (U) [Mass/Vol] 0.2 mg/dL [email or web address] Other Urinalysis - AUTOMATED No rt [employer] Other XR TSPINE 2 VIEWSon 06-17-19 23 [...] fractures, and dextroscoliosis. Electronically authenticated by: CELIA CORMIER Date: 2022-06-16 13:46 Normal [facility] BNPon 06-07-2022 Natriuretic peptide B (Bld) [Mass/Vol] 68.0 pg/mL Normal <=900.0 [facility] Comment on above: Performed By: #### C RP, CMP, BNP ####[facility] [address] [place] [address]Dr. David Cannon CBC AUTO DIFFon 06-07-2022 BASO # 0.0 103/ul Normal 0.0-0.1 [facility] Comment on above: Performed By: #### C BC ####[facility] [address] [place], [place] [address]Dr. David Cannon Basophils/100 WBC (Bld) 0.5 % Normal 0.2-2.0 [facility] Comment on above: Performed By: #### C BC ####[facility] [address] [place], [place] [address]DrGerry Cannon EO # 0.2 103/ul Normal 0.0-0.7 [facility] Comment on above: Performed By: #### C BC ####[facility] [address] [place], [place] [address]Dr. David Cannon Eosinophils/100 WBC (Bld) 2.0 % Normal 0.9-7.0 [facility] Comment on above: Performed By: #### C BC ####[facility] Sun[address] [place], [place] [address]Dr. David Cannon Erythrocyte distribution width (RBC) [Ratio] 12.3 % Normal 11.0-15.0 [facility] Comment on above: Performed By: #### C BC ####[facility] [address] [place], [place] [address]DrGerry Cannon Hematocrit (Bld) [Volume fraction] 44.4 % Normal 36.0-48.0 [facility] Comment on above: Performed By: #### C BC ####[facility] [address] [place], [place] [address]Dr. David Cannon Hemoglobin (Bld) [Mass/Vol] 14.3 g/dL Normal 12.0-16.0 [facility] Comment on above: Performed By: #### C BC ####[facility] [address] [place] [address]DrGerry Macielbraeden Cannon IG # 0.01 10e3/ul Normal 0.00-0.03 [facility] Comment on above: Performed By: #### C BC ####[facility] [address] [place] [address]Dr. David Davis IG % 0.1 % Normal 0.0-0.5 [facility] Comment on above: Performed By: #### C BC ####[facility] [address] [place], [place] [address]DrGerry Janellbraeden Cannon LYMPH # 2.7 103/ul Normal 1.2-3.8 [facility] Comment on above: Performed By: #### C BC ####[facility] [address] [place], [place] [address]DrGerry Janellbraeden Cannon Lymphocytes/100 WBC (Bld) 37.0 % Normal 20.5-60.0 [facility] Comment on above: Performed By: #### C BC ####[facility] [address] [place], [place] [address]DrGerry Janellbraeden Cannon MANUAL DIFF REQ NO Normal [facility] Comment on above: Performed By: #### C BC ####[facility] [address]tr[address] [place], [place] [address]DrGerry Janellbraeden Cannon MCH (RBC) [Entitic mass] 31.4 pg Normal 26.7-34.0 [facility] Comment on above: Performed By: #### C BC ####[facility] [address] [place], [place] [address]DrGerry Janellbraeden Cannon MCHC (RBC) [Mass/Vol] 32.2 g/dL Normal 29.9-35.2 [facility] Comment on above: Performed By: #### C BC ####[facility] [address] [place], [place] [address]DrGerry Janellbraeden Cannon MCV (RBC) [Entitic vol] 97.4 fL Normal 81.0-99.0 [facility] Comment on above: Performed By: #### C BC ####[facility] [address] [place] [address]DrGerry Macielbraeden Davis MONO # 0.6 103/ul Normal 0.3-0.8 [facility] Comment on above: Performed By: #### C BC ####[facility] [address] [place] [address]DrGerry Cannon Monocytes/100 WBC (Bld) 7.8 % Normal 1.7-12.0 [facility] Comment on above: Performed By: #### C BC ####[facility] [address] [place], [place] [address]DrGerry Cannon NEUT # 3.9 103/ul Normal 1.4-6.5 [facility] Comment on above: Performed By: #### C BC ####[facility] [address] [place], [place] [address]DrGerry Cannon Neutrophils/100 WBC (Bld) 52.6 % Normal 43.0-75.0 [facility] Comment on above: Performed By: #### C BC ####[facility] [address] [place], [place] [address]DrGerry Cannon Platelet mean volume (Bld) [Entitic vol] 9.0 fL Critically low 9.5-13.5 [facility] Comment on above: Performed By: #### C BC ####[facility] [address] [place] [address]Dr. David Cannon PLT 233 103/ul Normal 150-450 [facility] Comment on above: Performed By: #### C BC ####[facility] [address] [place], [place] [address]DrGerry Cannon RBC 4.56 106/ul Normal 4.20-5.40 [facility] Comment on above: Performed By: #### C BC ####[facility] [address] [place], [place] [address]DrGerry Cannon WBC 7.4 103/ul Normal 4.0-11.0 [facility] Comment on above: Performed By: #### C BC ####[facility] [address] [place] [address]Dr. David Cannon CRPon 06-07-2022 CRP [Mass/Vol] mg/L Normal <=1.0 [facility] Comment on above: Performed By: #### C RP, CMP, BNP ####[facility] [address] [place] [address]Dr. David Cannon CULTURE URINEon 06-07-2022 CULTURE URINE Culture Observations: LIGHT GROWTH OF MIXED GENITAL ANISHA. NO POTENTIAL PATHOGENS SEEN. Normal [facility] Comment on above: Performed By: #### U RCX ####[facility] [address] [place] [address]Dr. David Cannon ER URINE PROFILEon 3 Bilirubin Ql (U) Negative Normal NEGATIVE [facility] Comment on above: Performed By: #### B MP, TSH #### [facility] [address] [place] [address] Dr. David Cannon Clarity (U) CLEAR Normal CLEAR [facility] Comment on above: Performed By: #### B MP, TSH #### [facility] [address] [place] [address] Dr. David Cannon Color (U) LT. YELLOW Normal YELLOW [facility] Comment on above: Performed By: #### B MP, TSH #### [facility] [address] [place] [address] Dr. David Cannon ERUGRACIELA A micrscopic examination will be performed if indicated. Normal [facility] Comment on above: Performed By: #### B MP, TSH #### [facility] [address] [address] [address] David Cannon Glucose Ql (U) Negative Normal NEGATIVE [facility] Comment on above: Performed By: #### B MP, TSH #### [facility] [address] [place] [address] Dr. David Cannon Hemoglobin Ql (U) Negative Normal NEGATIVE [facility] Comment on above: Performed By: #### B MP, TSH #### [facility] [address] [place] [address] Dr. David Cannon Ketones Ql (U) Negative Normal NEGATIVE [facility] Comment on above: Performed By: #### B MP, TSH #### [facility] [address] [place] [address] Dr. David Cannon LEUKOCYTES SMALL Abnormal NEGATIVE [facility] Comment on above: Performed By: #### B MP, TSH #### [facility] [address] [address] [address] David Cannon Nitrite Ql (U) Negative Normal NEGATIVE [facility] Comment on above: Performed By: #### B MP, TSH #### [facility] [address] [place] [address] Dr. David Cannon pH (U) 6.0 [pH] Normal 5-9 [facility] Comment on above: Performed By: #### B NILSA, TSH #### [facility] [address] [place] [address] Dr. David Cannon SPEC GRAVITY 1.010 Normal 1.005-<=1.02 5 [facility] Comment on above: Performed By: #### B MP, TSH #### [facility] [address] [place] [address] Dr. David Cannon UA PROTEIN Negative Normal NEGATIVE/ TRACE [facility] Comment on above: Performed By: #### B MP, TSH #### [facility] [address] [place] [address] Dr. David Cannon UR MICRO IND INDICATED Normal [facility] Comment on above: Performed By: #### B MP, TSH #### [facility] [address] [place] [address] Dr. David Cannon Urobilinogen Qn (U) 0.2 {Skip'U}/dL Normal 0.2 - 1. 0 [facility] Comment on above: Performed By: #### B MP, TSH #### [facility] [address] [place] [address] Dr. David Cannon PROF 14(COMP METB)on 023 Albumin [Mass/Vol] 4.3 g/dL Normal 3.4-5.0 [facility] Comment on above: Performed By: #### C RP, CMP, BNP ####[facility] [address] [place] [address]Dr. David Cannon Albumin/Globulin [Mass ratio] 1.1 {ratio} Normal [facility] Comment on above: Performed By: #### C RP, CMP, BNP ####[facility] [address] [place] [address]Dr. David Cannon ALP [Catalytic activity/Vol] 82 U/L Normal 46-116 [facility] Comment on above: Performed By: #### C RP, CMP, BNP ####[facility] [address] [place], [place] [address]Dr. David Cannon ALT [Catalytic activity/Vol] 21 U/L Normal 14-59 [facility] Comment on above: Performed By: #### C RP, CMP, BNP ####[facility] [address] [place], [place] [address]Dr. David Cannon Anion gap [Moles/Vol] 12.3 mmol/L Normal [facility] [place] [facility] Comment on above: Performed By: #### C RP, CMP, BNP ####[facility] [address] [place], [place] [address]Dr. David Cannon AST [Catalytic activity/Vol] 15 U/L Normal 15-37 [facility] Comment on above: Performed By: #### C RP, CMP, BNP ####[facility] [address] [place] [address]Dr. David Cannon Bilirubin [Mass/Vol] 0.2 mg/dL Normal 0.2-1.0 [facility] Comment on above: Performed By: #### C RP, CMP, BNP ####[facility] [address] [place] [address]Dr. David Cannon Calcium [Mass/Vol] 9.2 mg/dL Normal 8.5-10.1 [facility] Comment on above: Performed By: #### C RP, CMP, BNP ####[facility] [address] [place] [address]Dr. David Canonn Chloride [Moles/Vol] 104 mmol/L Normal 98-107 [facility] Comment on above: Performed By: #### C RP, CMP, BNP ####[facility] [address] [place] [address]Dr. David Cannon CO2 [Moles/Vol] 31.2 mmol/L Normal 21.0-32.0 [facility] Comment on above: Performed By: #### C RP, CMP, BNP ####[facility] [address] [place], [place] [address]Dr. David Cannon Creatinine [Mass/Vol] 0.52 mg/dL Critically low 0.55-1.02 [facility] Comment on above: Performed By: #### C RP, CMP, BNP ####[facility] [address] [place], [place] [address]Dr. David Cannon EGFR-AF TUVALUAN >60 Normal >=60 [facility] Comment on above: Performed By: #### C RP, CMP, BNP ####[facility] [address] [place], [place] [address]Dr. David Cannon EGFR-NON AF TUVALUAN >60 Normal >=60 [facility] Comment on above: Performed By: #### C RP, CMP, BNP ####[facility] [address] [place] [address]Dr. David Cannon Globulin (S) [Mass/Vol] 3.9 g/dL Normal [facility] Comment on above: Performed By: #### C RP, CMP, BNP ####[facility] [address] [place] [address]Dr. David Cannon Glucose [Mass/Vol] 79 mg/dL Normal 74-106 [facility] Comment on above: Performed By: #### C RP, CMP, BNP ####[facility] [address] [place] [address]Dr. David Cannon Potassium [Moles/Vol] 3.5 mmol/L Normal 3.5-5.1 [facility] Comment on above: Performed By: #### C RP, CMP, BNP ####[facility] [address] [place] [address]Dr. David Cannon Protein [Mass/Vol] 8.2 g/dL Normal 6.4-8.2 [facility] Comment on above: Performed By: #### C RP, CMP, BNP ####[facility] [address] [place] [address]Dr. David Cannon Sodium [Moles/Vol] 144 mmol/L Normal 136-145 [facility] Comment on above: Performed By: #### C RP, CMP, BNP ####[facility] [address] [place] [address]Dr. David Cannon Urea nitrogen [Mass/Vol] 16.0 mg/dL Normal 7.0-18.0 [facility] Comment on above: Performed By: #### C RP, CMP, BNP ####[facility] [address] [place] [address]Dr. David Cannon Urea nitrogen/Creatinine [Mass ratio] 30.8 mg/mg Normal [facility] Comment on above: Performed By: #### C RP, CMP, BNP ####[facility] [address] [place] [address]Dr. David Cannon PROTIMEon 06-07-2022 INR Coag (PPP) [Relative time] {INR} Normal [facility] Comment on above: Performed By: #### A NARF #### [facility] [address] [place] [address] Dr. David Cannon INR GUIDELINES SEE BELOW Normal [facility] Comment on above: Result Comment: SURY RED INR: 2.0 - 3.0 CONDITIONS NOT LISTED BELOW 2.5 - 3.5 FOR PROSTHETIC HEART VALVE REPLACEMENT 2.5 - 3.5 RECURRENT THROMBOSIS Performed By: #### A NARF #### [facility] [address] [place] [address] Dr. David Cannon PT Coag (PPP) [Time] 9.6 s Normal 9.0-11.6 [facility] Comment on above: Performed By: #### A NARF #### [facility] [address] [address] [address] David Cannon PTTon 06-07-2022 aPTT Coag (Bld) [Time] 25.6 s Normal 22.3-36.2 [facility] Comment on above: Performed By: #### A NARF #### [facility] [facility] [address] [place] [address] Dr. David Cannon SED RATE WESTERGRENon 2022 SED RATE 21 mm/hr Normal <=30 [facility] Comment on above: Performed By: #### S EDR ####[facility] [id number] [address]Dr. David Cannon URINE MICROSCOPIC ONLYon BACTERIA SMALL Abnormal NONE SEEN [facility] Comment on above: Performed By: #### B MP, TSH #### [facility] [address] [place] [address] Dr. David Cannon Bacteria identified Cx Nom (U) INDICATED Normal [facility] Comment on above: Performed By: #### B MP, TSH #### [facility] [address] [place] [address] Dr. David Cannon CAST NONE SEEN Normal NONE SEEN [facility] Comment on above: Performed By: #### B MP, TSH #### [facility] [address] [place] [address] Dr. David Cannon Crystals LM Nom (Urine sed) NONE SEEN Normal NONE SEEN [facility] Comment on above: Performed By: #### B MP, TSH #### [facility] [address] [place] [address] Dr. David Cannon Epithelial cells LM Ql (Urine sed) FEW Abnormal NONE SEEN /RARE [facility] Comment on above: Performed By: #### B MP, TSH #### [facility] [address] [place] [address] Dr. David Cannon MUCOUS NONE SEEN Normal NONE SEEN [facility] Comment on above: Performed By: #### B MP, TSH #### [facility] [address] [place] [address] Dr. David Cannon RBC 0-2 Normal 0-2 [facility] Comment on above: Performed By: #### B MP, TSH #### [facility] [address] [place] [address] Dr. David Cannon WBC 5-10 Abnormal NONE SEEN [facility] Comment on above: Performed By: #### B MP, TSH #### [facility] [address] [place] [address] Dr. aDvid Cannon NISHI EIA W/REFLEX 5 BIOMARKER Son 05-30-2022 NISHI Direct Negative Normal Negative [facility] Comment on above: Performed By: #### A NARF #### [facility] [address] [place] [address] Dr. David Cannon C-Reactive Proteinon 023 C-Reactive Protein 0.3 mg/dL <=1.0 mg/dL [email or web address] Other CBC AUTO DIFFon 05-29-2022 BASO # 0.0 103/ul Normal 0.0-0.1 [facility] Comment on above: Performed By: #### A NARF #### [facility] [address] [place] [address] Dr. David Cannon Basophils/100 WBC (Bld) 0.3 % Normal 0.2-2.0 [facility] Comment on above: Performed By: #### A NARF #### [facility] [address] [place] [address] Dr. David Cannon EO # 0.1 103/ul Normal 0.0-0.7 [facility] Comment on above: Performed By: #### A NARF #### [facility] [address] [place] [address] Dr. David Cannon Eosinophils/100 WBC (Bld) 1.7 % Normal 0.9-7.0 [facility] Comment on above: Performed By: #### A NARF #### [facility] [address] [place] [address] Dr. David Cannon Erythrocyte distribution width (RBC) [Ratio] 12.0 % Normal 11.0-15.0 [facility] Comment on above: Performed By: #### A NARF #### [facility] [address] [place] [address] Dr. David Cannon Hematocrit (Bld) [Volume fraction] 43.9 % Normal 36.0-48.0 [facility] Comment on above: Performed By: #### A NARF #### [facility] [address] [place] [address] Dr. David Cannon Hemoglobin (Bld) [Mass/Vol] 14.0 g/dL Normal 12.0-16.0 [facility] Comment on above: Performed By: #### A NARF #### [facility] [address] [place] [address] Dr. David Cannon IG # 0.02 10e3/ul Normal 0.00-0.03 [facility] Comment on above: Performed By: #### A NARF #### [facility] [address] [place] [address] Dr. David Cannon IG % 0.3 % Normal 0.0-0.5 [facility] Comment on above: Performed By: #### A NARF #### [facility] [address] [place] [address] Dr. David Cannon LYMPH # 2.0 103/ul Normal 1.2-3.8 [facility] Comment on above: Performed By: #### A NARF #### [facility] [address] [place] [address] Dr. David Cannon Lymphocytes/100 WBC (Bld) 31.7 % Normal 20.5-60.0 [facility] Comment on above: Performed By: #### A NARF #### [facility] [address] [place] [address] Dr. David Cannon MANUAL DIFF REQ NO Normal [facility] Comment on above: Performed By: #### A NARF #### [facility] [address] [place] [address] Dr. David Cannon MCH (RBC) [Entitic mass] 30.8 pg Normal 26.7-34.0 [facility] Comment on above: Performed By: #### A NARF #### [facility] [address] [address] [address] David Cannon MCHC (RBC) [Mass/Vol] 31.9 g/dL Normal 29.9-35.2 [facility] Comment on above: Performed By: #### A NARF #### [facility] [address] [place] [address] Dr. David Cannon MCV (RBC) [Entitic vol] 96.5 fL Normal 81.0-99.0 [facility] Comment on above: Performed By: #### A NARF #### [facility] [address] [place] [address] Dr. David Cannon MONO # 0.4 103/ul Normal 0.3-0.8 [facility] Comment on above: Performed By: #### A NARF #### [facility] [address] [place] [address] Dr. David Cannon Monocytes/100 WBC (Bld) 6.2 % Normal 1.7-12.0 [facility] Comment on above: Performed By: #### A NARF #### [facility] [address] [place] [address] Dr. David Cannon NEUT # 3.9 103/ul Normal 1.4-6.5 [facility] Comment on above: Performed By: #### A NARF #### [facility] [address] [place] [address] Dr. David Cannon Neutrophils/100 WBC (Bld) 59.8 % Normal 43.0-75.0 [facility] Comment on above: Performed By: #### A NARF #### [facility] [address] [place] [address] Dr. David Cannon Platelet mean volume (Bld) [Entitic vol] 8.7 fL Critically low 9.5-13.5 [facility] Comment on above: Performed By: #### A NARF #### [facility] [address] [place] [address] Dr. David Cannon PLT 263 103/ul Normal 150-450 [facility] Comment on above: Performed By: #### A NARF #### [facility] [address] [address] [address] David Cannon RBC 4.55 106/ul Normal 4.20-5.40 [facility] Comment on above: Performed By: #### A NARF #### [facility] [address] [address] [address] David Cannon WBC 6.4 103/ul Normal 4.0-11.0 [facility] Comment on above: Performed By: #### A NARF #### [facility] [address] [address] [address] David Cannon CRPon 05-29-2022 CRP 0.3 mg/dL Normal <=1.0 [facility] Comment on above: Performed By: #### C RP, CMP ####[facility] [id number] [place], [place] [address]JiDr. David Cannon Complete Blood Count and Dif jin 05-29-2022 Anisocytosis Ql (Bld) [employer] Other Basophilic stippling LM Ql (Bld) [email or web address] Other RBC morphology finding Nom (Bld) [email or web address] Other Complete Blood Count and Diff Inverted [facility] Other Comprehensive Metabolic Pane sincere 05-29-2022 Albumin/Globulin [Mass ratio] 0.9 {ratio} Normal [email or web address] Other Comment on above: Performed By: #### A NARF #### [facility] [address] [address] [address] David Cannon ALP [Catalytic activity/Vol] 79 U/L Normal 46-116 [email or web address] Other Comment on above: Performed By: #### A NARF #### [facility] [address] [address] [address] David Cannon ALT [Catalytic activity/Vol] 20 U/L Normal 14-59 [email or web address] Other Comment on above: Performed By: #### A NARF #### [facility] [address] [address] [address] David Cannon Anion gap [Moles/Vol] 12.7 mmol/L Normal No [facility] Other Comment on above: Performed By: #### A NARF #### [facility] [address] [address] [address] David Cannon AST [Catalytic activity/Vol] 20 U/L Normal 15-37 [facility] Other Comment on above: Performed By: #### A NARF #### [facility] [address] [address] [address] David Cannon Chloride [Moles/Vol] 102 mmol/L Normal 98-107 [facility] Other Comment on above: Performed By: #### A NARF #### [facility] [address] [place] [address] Dr. David Cannon Urea nitrogen/Creatinine [Mass ratio] 29.0 mg/mg Normal [facility] Other Comment on above: Performed By: #### A NARF #### [facility] [address] [place] [address] Dr. David Cannon Albumin [Mass/Vol] 3.157398 g/dL 3.4-5.0 g/dL N [facility] Other Calcium [Mass/Vol] 9.8799430 mg/dL 8.5-10 .1 mg/dL [facility] Other CO2 [Moles/Vol] 31.00790661 mmol/L 21.0-3 2.0 mmol/L [place] [employer] Other Creatinine [Mass/Vol] 0.35181467 mg/dL 0. 55-1.02 mg/dL [email or web address] Other Potassium [Moles/Vol] 4.66407449 mmol/L 3 .5-5.1 mmol/L [place] [employer] Other Protein [Mass/Vol] 8.509483 g/dL 6.4-8.2 g/dL N [facility] [employer] Other Urea nitrogen [Mass/Vol] 18.9326012 mg/dL 7.0-18.0 mg/dL [email or web address] Other Comprehensive Metabolic Panel see note [email or web address] Other Comprehensive Metabolic Panel 142 mmol/L 136-145 mmol/L [email or web address] Other Comprehensive Metabolic Panel 102 mg/dL 74-106 mg/dL [email or web address] Other Comprehensive Metabolic Panel >60 mL/min/1.73m2 >=60 mL/min/1.73m 2 [email or web address] Other Comprehensive Metabolic Panel 0.2 mg/dL 0.2-1.0 mg/dL [email or web address] Other Comprehensive Metabolic Panel 4.3 g/dL [email or web address] Other PROF 14(COMP METB)on 023 Albumin [Mass/Vol] 3.8 g/dL Normal 3.4-5.0 [facility] Comment on above: Performed By: #### A NARF #### [facility] [address] [place] [address] Dr. David Cannon Bilirubin [Mass/Vol] 0.2 mg/dL Normal 0.2-1.0 [facility] Comment on above: Performed By: #### A NARF #### [facility] [address] [address] [address] David Cannon Calcium [Mass/Vol] 9.9 mg/dL Normal 8.5-10.1 [facility] Comment on above: Performed By: #### A NARF #### [facility] [address] [address] [address] David Cannon CO2 [Moles/Vol] 31.4 mmol/L Normal 21.0-32.0 [facility] Comment on above: Performed By: #### A NARF #### [facility] [address] [place] [address] Dr. David Cannon Creatinine [Mass/Vol] 0.62 mg/dL Normal 0.55-1.02 [facility] Comment on above: Performed By: #### A NARF #### [facility] [address] [place] [address] Dr. David Cannon EGFR-AF TUVALUAN >60 Normal >=60 [facility] Comment on above: Performed By: #### A NARF #### [facility] [address] [place] [address] Dr. David Cannon EGFR-NON AF TUVALUAN >60 Normal >=60 [facility] Comment on above: Performed By: #### A NARF #### [facility] [address] [place] [address] Dr. David Cannon Globulin (S) [Mass/Vol] 4.3 g/dL Normal T [facility] Comment on above: Performed By: #### A NARF #### [facility] [address] [place] [address] Dr. David Cannon Glucose [Mass/Vol] 102 mg/dL Normal 74-106 [facility] Comment on above: Performed By: #### A NARF #### [facility] [address] [place] [address] Dr. David Cannon Potassium [Moles/Vol] 4.1 mmol/L Normal 3.5-5.1 [facility] Comment on above: Performed By: #### A NARF #### [facility] [address] [place] [address] Dr. David Cannon Protein [Mass/Vol] 8.1 g/dL Normal 6.4-8.2 [facility] Comment on above: Performed By: #### A NARF #### [facility] [address] [place] [address] Dr. David Cannon Sodium [Moles/Vol] 142 mmol/L Normal 136-145 [facility] Comment on above: Performed By: #### A NARF #### [facility] [address] [place] [address] Dr. David Cannon Urea nitrogen [Mass/Vol] 18.0 mg/dL Normal 7.0-18.0 [facility] Comment on above: Performed By: #### A NARF #### [facility] [address] [place] [address] Dr. David Cannon UA RANDOM W/MICROSCOPICon AMORPHOUS CRYSTALS RARE Normal [facility] Comment on above: Performed By: #### B MP, TSH #### [facility] [address] [place] [address] Dr. David Cannon BACTERIA NONE SEEN Normal NONE SEEN [facility] Comment on above: Performed By: #### B MP, TSH #### [facility] [address] [place] [address] Dr. David Cannon Bilirubin Ql (U) Negative Normal NEGATIVE [employer] Other Comment on above: Performed By: #### B MP, TSH #### [facility] [address] [place] [address] Dr. David Cannon CAST NONE SEEN Normal NONE SEEN [facility] Comment on above: Performed By: #### B MP, TSH #### [facility] [address] [place] [address] Dr. David Cannon Clarity (U) CLEAR Normal CLEAR [email or web address] Other Comment on above: Performed By: #### B MP, TSH #### [facility] [address] [place] [address] Dr. David Cannon Color (U) LT. YELLOW Normal YELLOW [email or web address] Other Comment on above: Performed By: #### B MP, TSH #### [facility] [address] [place] [address] Dr. David Cannon Crystals LM Nom (Urine sed) SEEN Abnormal NONE SEEN [facility] Comment on above: Performed By: #### B MP, TSH #### [facility] [address] [place] [address] Dr. David Cannon Epithelial cells LM Ql (Urine sed) RARE Normal NONE SEEN /RARE [facility] Comment on above: Performed By: #### B MP, TSH #### [facility] [address] [address] [address] David Cannon Glucose Ql (U) Negative Normal NEGATIVE [employer] Other Comment on above: Performed By: #### B MP, TSH #### [facility] [address] [address] [address] David Cannon Hemoglobin Ql (U) Negative Normal NEGATIVE [employer] Other Comment on above: Performed By: #### B MP, TSH #### [facility] [address] [place] [address] Dr. David Cannon Ketones Ql (U) Negative Normal NEGATIVE [employer] Other Comment on above: Performed By: #### B MP, TSH #### [facility] [address] [place] [address] Dr. David Cannon LEUKOCYTES Negative Normal NEGATIVE [facility] Comment on above: Performed By: #### B MP, TSH #### [facility] [address] [place] [address] Dr. David Cannon MUCOUS NONE SEEN Normal NONE SEEN [facility] Comment on above: Performed By: #### B MP, TSH #### [facility] [address] [place] [address] Dr. David Cannon Nitrite Ql (U) Negative Normal NEGATIVE [employer] Other Comment on above: Performed By: #### B MP, TSH #### [facility] [address] [address] [address] David Cannon pH (U) 7.0 [pH] Normal 5-9 [email or web address] Other Comment on above: Performed By: #### B MP, TSH #### [facility] [address] [place] [address] Dr. David Cannon RBC 0-2 Normal 0-2 [facility] Comment on above: Performed By: #### B MP, TSH #### [facility] [address] [place] [address] Dr. David Cannon SPEC GRAVITY 1.020 Normal 1.005-<=1.02 5 [facility] Comment on above: Performed By: #### B MP, TSH #### [facility] [address] [address] [address] David Cannon UA PROTEIN Negative Normal NEGATIVE/ TRACE [facility] Comment on above: Performed By: #### B MP, TSH #### [facility] [address] [address] [address] David Cannon Urobilinogen Qn (U) 0.2 {Skip'U}/dL Normal 0.2 - 1. 0 [facility] Comment on above: Performed By: #### B MP, TSH #### [facility] [address] [place] [address] Dr. David Cannon WBC NONE SEEN Normal NONE SEEN [facility] Comment on above: Performed By: #### B MP, TSH #### [facility] [address] [place] [address] Dr. David Cannon Crystals LM Nom (Urine sed) SEEN #/HPF Abnormal NONE SEEN #/HPF [email or web address] Other Epithelial cells LM Ql (Urine sed) RARE #/LPF NONE SEEN /RARE #/LPF [email or web address] Other UA RANDOM W/MICROSCOPIC 1.020 1.00 5-<=1.02 5 [email or web address] Other UA RANDOM W/MICROSCOPIC Negative NEGATIVE N [employer] Other UA RANDOM W/MICROSCOPIC 0.2 EU/dl 0.2 - 1.0 EU/dl [email or web address] Other UA RANDOM W/MICROSCOPIC NONE SEEN #/HPF N ONE SEEN #/HPF [email or web address] Other UA RANDOM W/MICROSCOPIC 0-2 #/HPF 0-2 #/HPF N [employer] Other UA RANDOM W/MICROSCOPIC NONE SEEN #/LPF N ONE SEEN #/LPF [email or web address] Other UA RANDOM W/MICROSCOPIC NONE SEEN NONE SEEN N [employer] Other UA RANDOM W/MICROSCOPIC RARE N [employer] Other CULTURE URINEon 04-13-2022 CULTURE URINE Isolate [...] Trimethoprim/Sulfam ethoxazole <=20 S F Normal [facility] Comment on above: Performed By: #### U RCX ####[facility] [id number] [address]Dr. David Cannon VAGINITIS/VAGINOSIS DNA PROB Hugo 04-12-2022 Susan species Negative Normal Negative [facility] Comment on above: Performed By: #### B NILSA, TSH #### [facility] [address] [place] [address] Dr. David Cannon Gardnerella vaginalis Negative Normal Negative [facility] Comment on above: Performed By: #### B MP, TSH #### [facility] [address] [place] [address] Dr. David Cannon Trichomonas vaginalis Negative Normal Negative [facility] Comment on above: Performed By: #### B MP, TSH #### [facility] [address] [address] [address] David Cannon BNPon 02-24-2022 Natriuretic peptide B (Bld) [Mass/Vol] 173.0 pg/mL Normal <=900.0 [facility] Comment on above: Performed By: #### B MP, TSH #### [facility] [address] [place] [address] Dr. David Cannon CARDIAC WAI 3-6on 2 CK [Catalytic activity/Vol] 47 U/L Normal 26-192 [facility] Comment on above: Performed By: #### B NILSA, TSH #### [facility] [address] [place] [address] Dr. David Cannon CK.MB [Mass/Vol] ng/mL Normal <=3.60 [facility] Comment on above: Performed By: #### B NILSA, TSH #### [facility] [address] [place] [address] Dr. David Cannon HSTROP 7.0 pg/mL Normal 4.0-51.3 [facility] Comment on above: Result Comment: CUT- OFF POINTS HAVE BEEN ESTABLISHED BASED ON THE FOURTH UNIVERSAL DEFINITIONS OF MYOCARDIAL INFARCTION. THE UPPER REFERENCE LIMIT (URL) OF TROPONIN, DEFINED THE 99TH PERCENTILE OF cTnI DISTRIBUTION IN A REFERENCE POPULATION, HAS BEEN CONFIRMED THE DECISION THRESHOLD FOR DE DIAGNOSIS. Performed By: #### B NILSA, TSH #### [facility] [address] [place] [address] Dr. David Cannon CK [Catalytic activity/Vol] 44 U/L Normal 26-192 [facility] Comment on above: Performed By: #### B NILSA, TSH #### [facility] [address] [place] [address] Dr. David Cannon CK.MB [Mass/Vol] ng/mL Normal <=3.60 [facility] Comment on above: Performed By: #### B NILSA, TSH #### [facility] [address] [place] [address] Dr. aDvid Cannon HSTROP 5.3 pg/mL Normal 4.0-51.3 [facility] Comment on above: Result Comment: CUT- OFF POINTS HAVE BEEN ESTABLISHED BASED ON THE FOURTH UNIVERSAL DEFINITIONS OF MYOCARDIAL INFARCTION. THE UPPER REFERENCE LIMIT (URL) OF TROPONIN, DEFINED THE 99TH PERCENTILE OF cTnI DISTRIBUTION IN A REFERENCE POPULATION, HAS BEEN CONFIRMED THE DECISION THRESHOLD FOR DE DIAGNOSIS. Performed By: #### B MP, TSH #### [facility] [address] [place] [address] Dr. David Cannon CBC AUTO DIFFon 02-24-2022 BASO # 0.0 103/ul Normal 0.0-0.1 [facility] Comment on above: Performed By: #### C BC #### [facility] [address] [place] [address] Dr. David Cannon Basophils/100 WBC (Bld) 0.3 % Normal 0.2-2.0 [facility] Comment on above: Performed By: #### C BC #### [facility] [address] [place] [address] Dr. David Cannon EO # 0.2 103/ul Normal 0.0-0.7 [facility] Comment on above: Performed By: #### C BC #### [facility] [address] [place] [address] Dr. David Cannon Eosinophils/100 WBC (Bld) 2.6 % Normal 0.9-7.0 [facility] Comment on above: Performed By: #### C BC #### [facility] [address] [place] [address] Dr. David Cannon Erythrocyte distribution width (RBC) [Ratio] 12.1 % Normal 11.0-15.0 [facility] Comment on above: Performed By: #### C BC #### [facility] [address] [place] [address] Dr. David Cannon Hematocrit (Bld) [Volume fraction] 39.9 % Normal 36.0-48.0 [facility] Comment on above: Performed By: #### C BC #### [facility] [address] [place] [address] Dr. David Cannon Hemoglobin (Bld) [Mass/Vol] 13.2 g/dL Normal 12.0-16.0 [facility] Comment on above: Performed By: #### C BC #### [facility] [address] [place] [address] Dr. David Cannon IG # 0.01 10e3/ul Normal 0.00-0.03 [facility] Comment on above: Performed By: #### C BC #### [facility] [address] [place] [address] Dr. David Cannon IG % 0.2 % Normal 0.0-0.5 [facility] Comment on above: Performed By: #### C BC #### [facility] [address] [place] [address] Dr. David Cannon LYMPH # 2.8 103/ul Normal 1.2-3.8 [facility] Comment on above: Performed By: #### C BC #### [facility] [address] [place] [address] Dr. David Cannon Lymphocytes/100 WBC (Bld) 48.1 % Normal 20.5-60.0 [facility] Comment on above: Performed By: #### C BC #### [facility] [address] [place] [address] Dr. David Cannon MANUAL DIFF REQ NO Normal [facility] Comment on above: Performed By: #### C BC #### [facility] [address] [place] [address] Dr. David Cannon MCH (RBC) [Entitic mass] 31.6 pg Normal 26.7-34.0 [facility] Comment on above: Performed By: #### C BC #### [facility] [address] [place] [address] Dr. David Cannon MCHC (RBC) [Mass/Vol] 33.1 g/dL Normal 29.9-35.2 [facility] Comment on above: Performed By: #### C BC #### [facility] [address] [place] [address] Dr. David Cannon MCV (RBC) [Entitic vol] 95.5 fL Normal 81.0-99.0 [facility] Comment on above: Performed By: #### C BC #### [facility] [address] [place] [address] Dr. David Cannon MONO # 0.4 103/ul Normal 0.3-0.8 [facility] Comment on above: Performed By: #### C BC #### [facility] [address] [place] [address] Dr. David Cannon Monocytes/100 WBC (Bld) 6.1 % Normal 1.7-12.0 [facility] Comment on above: Performed By: #### C BC #### [facility] [address] [address] [address] David Cannon NEUT # 2.5 103/ul Normal 1.4-6.5 [facility] [facility] Comment on above: Performed By: #### C BC #### [facility] [address] [address] [address] David Cannon Neutrophils/100 WBC (Bld) 42.7 % Critically low 43.0-75.0 [facility] Comment on above: Performed By: #### C BC #### [facility] [address] [address] [address] David Cannon Platelet mean volume (Bld) [Entitic vol] 8.7 fL Critically low 9.5-13.5 [facility] Comment on above: Performed By: #### C BC #### [facility] [address] [address] [address] David Cannon PLT 166 103/ul Normal 150-450 [facility] Comment on above: Performed By: #### C BC #### [facility] [address] [address] [address] David Cannon RBC 4.18 106/ul Critically low 4.20-5.[address] [facility] Comment on above: Performed By: #### C BC #### [facility] [address] [address] [address] David Cannon WBC 5.7 103/ul Normal 4.0-11.0 [facility] Comment on above: Performed By: #### C BC #### [facility] [address] [address] [address] David Cannon PROF 14(COMP METB)on 022 Albumin [Mass/Vol] 3.4 g/dL Normal 3.4-5.0 [facility] Comment on above: Performed By: #### B MP, TSH #### [facility] [address] [address] [address] David Cannon Albumin/Globulin [Mass ratio] 1.2 {ratio} Normal [facility] Comment on above: Performed By: #### B MP, TSH #### [facility] [address] [address] [address] David Cannon ALP [Catalytic activity/Vol] 60 U/L Normal 46-116 [facility] Comment on above: Performed By: #### B MP, TSH #### [facility] [address] [address] [address] David Cannon ALT [Catalytic activity/Vol] 16 U/L Normal 14-59 [facility] Comment on above: Performed By: #### B MP, TSH #### [facility] [address] [address] [address] David Cannon Anion gap [Moles/Vol] 10.5 mmol/L Normal [facility] Comment on above: Performed By: #### B MP, TSH #### [facility] [address] [address] [address] David Cannon AST [Catalytic activity/Vol] 17 U/L Normal 15-37 [facility] Comment on above: Performed By: #### B MP, TSH #### [facility] [address] [address] [address] David Cannon Bilirubin [Mass/Vol] 0.4 mg/dL Normal 0.2-1.0 [facility] Comment on above: Performed By: #### B MP, TSH #### [facility] [address] [address] [address] David Cannon Calcium [Mass/Vol] 8.8 mg/dL Normal 8.5-10.1 [facility] Comment on above: Performed By: #### B MP, TSH #### [facility] [address] [address] [address] David Cannon Chloride [Moles/Vol] 106 mmol/L Normal 98-107 [facility] Comment on above: Performed By: #### B MP, TSH #### [facility] [address] [address] [address] David Cannon CO2 [Moles/Vol] 28.4 mmol/L Normal 21.0-32.0 [facility] Comment on above: Performed By: #### B MP, TSH #### [facility] [address] [address] [address] David Cannon Creatinine [Mass/Vol] 0.61 mg/dL Normal 0.55-1.02 [facility] Comment on above: Performed By: #### B MP, TSH #### [facility] [address] [address] [address] David Cannon EGFR-AF TUVALUAN >60 Normal >=60 [facility] Comment on above: Performed By: #### B MP, TSH #### [facility] [address] [address] [address] David Cannon EGFR-NON AF TUVALUAN >60 Normal >=60 [facility] Comment on above: Performed By: #### B MP, TSH #### [facility] [address] [address] [address] David Cannon Globulin (S) [Mass/Vol] 2.9 g/dL Normal [facility] Comment on above: Performed By: #### B MP, TSH #### [facility] [address] [address] [address] David Cannon Glucose [Mass/Vol] 79 mg/dL Normal 74-106 [facility] Comment on above: Performed By: #### B MP, TSH #### [facility] [address] [address] [address] David Cannon Potassium [Moles/Vol] 3.9 mmol/L Normal 3.5-5.1 [facility] Comment on above: Performed By: #### B MP, TSH #### [facility] [address] [address] [address] David Cannon Protein [Mass/Vol] 6.3 g/dL Critically low 6.4-8.2 [facility] Comment on above: Performed By: #### B MP, TSH #### [facility] [address] [address] [address] David Cannon Sodium [Moles/Vol] 141 mmol/L Normal 136-145 [facility] Comment on above: Performed By: #### B MP, TSH #### [facility] [address] [place] [address] Dr. David Cannon Urea nitrogen [Mass/Vol] 8.0 mg/dL Normal 7.0-18.0 [facility] Comment on above: Performed By: #### B MP, TSH #### [facility] [address] [place] [address] Dr. David Cannon Urea nitrogen/Creatinine [Mass ratio] 13.1 mg/mg Normal [facility] Comment on above: Performed By: #### B NILSA, TSH #### [facility] [address] [place] [address] Dr. David Cannon BNPon 02-23-2022 Natriuretic peptide B (Bld) [Mass/Vol] 124.0 pg/mL Normal <=900.0 [facility] Comment on above: Performed By: #### A NARF #### [facility] [address] [place] [address] Dr. David Cannon CARDIAC WAI 3-6on CK [Catalytic activity/Vol] 44 U/L Normal 26-192 [facility] Comment on above: Performed By: #### B NILSA, TSH #### [facility] [address] [place] [address] Dr. David Cannon CK.MB [Mass/Vol] ng/mL Normal <=3.60 [facility] Comment on above: Result Comment: Prev iously reported as: 0.30 On 02/23/2022 20:39 By JAW Performed By: #### B NILSA, TSH #### [facility] [address] [place] [address] Dr. David Cannon HSTROP 6.1 pg/mL Normal 4.0-51.3 [facility] Comment on above: Result Comment: CUT- OFF POINTS HAVE BEEN ESTABLISHED BASED ON THE FOURTH UNIVERSAL DEFINITIONS OF MYOCARDIAL INFARCTION. THE UPPER REFERENCE LIMIT (URL) OF TROPONIN, DEFINED THE 99TH PERCENTILE OF cTnI DISTRIBUTION IN A REFERENCE POPULATION, HAS BEEN CONFIRMED THE DECISION THRESHOLD FOR DE DIAGNOSIS. Performed By: #### B NILSA, TSH #### [facility] [address] [place], [place] [id number] Dr. David Cannon CK [Catalytic activity/Vol] 45 U/L Normal 26-192 [facility] Comment on above: Performed By: #### C MREP ####[facility] [id number] [id number] David Cannon CK.MB [Mass/Vol] ng/mL Normal <=3.60 [facility] Comment on above: Performed By: #### C MREP ####[facility] [id number] [address]Dr. David Cannon HSTROP 5.7 pg/mL Normal 4.0-51.3 [facility] Comment on above: Result Comment: CUT- OFF POINTS HAVE BEEN ESTABLISHED BASED ON THE FOURTH UNIVERSAL DEFINITIONS OF MYOCARDIAL INFARCTION. THE UPPER REFERENCE LIMIT (URL) OF TROPONIN, DEFINED THE 99TH PERCENTILE OF cTnI DISTRIBUTION IN A REFERENCE POPULATION, HAS BEEN CONFIRMED THE DECISION THRESHOLD FOR DE DIAGNOSIS. Performed By: #### C MREP ####[facility] [id number] [address]Dr. David Cannon CBC AUTO DIFFon 02-23-2022 BASO # 0.0 103/ul Normal 0.0-0.1 [facility] Comment on above: Performed By: #### B MP, TSH #### [facility] [address] [place] [address] Dr. David Cannon Basophils/100 WBC (Bld) 0.7 % Normal 0.2-2.0 [facility] Comment on above: Performed By: #### B MP, TSH #### [facility] [address] [place] [address] Dr. David Cannon EO # 0.1 103/ul Normal 0.0-0.7 [facility] Comment on above: Performed By: #### B MP, TSH #### [facility] [address] [place] [address] Dr. David Cannon Eosinophils/100 WBC (Bld) 1.1 % Normal 0.9-7.0 [facility] Comment on above: Performed By: #### B MP, TSH #### [facility] [address] [place] [address] Dr. David Cannon Erythrocyte distribution width (RBC) [Ratio] 12.2 % Normal 11.0-15.0 [facility] Comment on above: Performed By: #### B MP, TSH #### [facility] [address] [place] [address] Dr. David Cannon Hematocrit (Bld) [Volume fraction] 43.4 % Normal 36.0-48.0 [facility] Comment on above: Performed By: #### B MP, TSH #### [facility] [address] [place] [address] Dr. David Cannon Hemoglobin (Bld) [Mass/Vol] 14.4 g/dL Normal 12.0-16.0 [facility] Comment on above: Performed By: #### B NILSA, TSH #### [facility] [address] [place] [address] Dr. David Cannon IG # 0.01 10e3/ul Normal 0.00-0.03 [facility] Comment on above: Performed By: #### B NILSA, TSH #### [facility] [address] [place] [address] Dr. David Cannon IG % 0.2 % Normal 0.0-0.5 [facility] Comment on above: Performed By: #### B NILSA, TSH #### [facility] [address] [place] [address] Dr. David Cannon LYMPH # 1.5 103/ul Normal 1.2-3.8 [facility] Comment on above: Performed By: #### B MP, TSH #### [facility] [address] [place] [address] Dr. David Cannon Lymphocytes/100 WBC (Bld) 32.7 % Normal 20.5-60.0 [facility] Comment on above: Performed By: #### B MP, TSH #### [facility] [address] [place] [address] Dr. David Cannon MANUAL DIFF REQ NO Normal [facility] Comment on above: Performed By: #### B MP, TSH #### [facility] [address] [place] [address] Dr. David Cannon MCH (RBC) [Entitic mass] 31.4 pg Normal 26.7-34.0 [facility] Comment on above: Performed By: #### B MP, TSH #### [facility] [address] [place] [address] Dr. David Cannon MCHC (RBC) [Mass/Vol] 33.2 g/dL Normal 29.9-35.2 [facility] Comment on above: Performed By: #### B MP, TSH #### [facility] [address] [place] [address] Dr. David Cannon MCV (RBC) [Entitic vol] 94.8 fL Normal 81.0-99.0 [facility] Comment on above: Performed By: #### B MP, TSH #### [facility] [address] [place] [address] Dr. David Cannon MONO # 0.3 103/ul Normal 0.3-0.8 [facility] Comment on above: Performed By: #### B MP, TSH #### [facility] [address] [place] [address] Dr. David Cannon Monocytes/100 WBC (Bld) 5.9 % Normal 1.7-12.0 [facility] Comment on above: Performed By: #### B MP, TSH #### [facility] [address] [place] [address] Dr. David Cannon NEUT # 2.6 103/ul Normal 1.4-6.5 [facility] Comment on above: Performed By: #### B MP, TSH #### [facility] [address] [place] [address] Dr. David Cannon Neutrophils/100 WBC (Bld) 59.4 % Normal 43.0-75.0 [facility] Comment on above: Performed By: #### B MP, TSH #### [facility] [address] [place] [address] Dr. David Cannon Platelet mean volume (Bld) [Entitic vol] 8.6 fL Critically low 9.5-13.5 [facility] Comment on above: Performed By: #### B MP, TSH #### [facility] [address], [place] [address] Dr. David Cannon PLT 200 103/ul Normal 150-450 [facility] Comment on above: Performed By: #### B MP, TSH #### [facility] [address], [place] [address] Dr. David Cannon RBC 4.58 106/ul Normal 4.20-5.40 [facility] Comment on above: Performed By: #### B MP, TSH #### [facility] [address] [address] [address] David Cannon WBC 4.4 103/ul Normal 4.0-11.0 [facility] Comment on above: Performed By: #### B MP, TSH #### [facility] [address] [address] [address] aDvid Cannon Covid-19 PCR (CVDTBH)on 02-09 SARS-CoV-2 (COVID-19) RNA JOSH+probe Ql (Unsp spec) Not detected Normal NOT DETECTED [facility] Comment on above: Result Comment: When diagnostic [...] for this test is supported by the [employer] and Human Service's declaration that [...] be used). Performed By: #### C VDTBH ####[facility] [id number] [id number]. David Cannon LIPASEon 02-23-2022 Lipase [Catalytic activity/Vol] 85.0 U/L Normal 73.0-393.0 [facility] Comment on above: Performed By: #### A NARF #### [facility] [address] [place] [address] Dr. David Cannon PROF 14(COMP METB)on Albumin [Mass/Vol] 4.2 g/dL Normal 3.4-5.0 [facility] Comment on above: Performed By: #### A NARF #### [facility] [address] [place] [address] Dr. David Cannon Albumin/Globulin [Mass ratio] 1.2 {ratio} Normal [facility] Comment on above: Performed By: #### A NARF #### [facility] [address] [place] [address] Dr. David Cannon ALP [Catalytic activity/Vol] 67 U/L Normal 46-116 [facility] Comment on above: Performed By: #### A NARF #### [facility] [address] [place] [address] Dr. David Cannon ALT [Catalytic activity/Vol] 19 U/L Normal 14-59 [facility] Comment on above: Performed By: #### A NARF #### [facility] [address] [place] [address] Dr. David Cannon Anion gap [Moles/Vol] 15.1 mmol/L Normal [facility] Comment on above: Performed By: #### A NARF #### [facility] [address] [place] [address] Dr. David Cannon AST [Catalytic activity/Vol] 18 U/L Normal 15-37 [facility] Comment on above: Performed By: #### A NARF #### [facility] [address] [place] [address] Dr. David Cannon Bilirubin [Mass/Vol] 0.3 mg/dL Normal 0.2-1.0 [facility] Comment on above: Performed By: #### A NARF #### [facility] [address] [place] [address] Dr. David Cannon Calcium [Mass/Vol] 9.7 mg/dL Normal 8.5-10.1 [facility] Comment on above: Performed By: #### A NARF #### [facility] [address] [place] [address] Dr. David Cannon Chloride [Moles/Vol] 103 mmol/L Normal 98-107 [facility] Comment on above: Performed By: #### A NARF #### [facility] [address] [address] [address] David Cannon CO2 [Moles/Vol] 29.0 mmol/L Normal 21.0-32.0 [facility] Comment on above: Performed By: #### A NARF #### [facility] [address] [place] [address] Dr. David Cannon Creatinine [Mass/Vol] 0.67 mg/dL Normal 0.55-1.02 [facility] Comment on above: Performed By: #### A NARF #### [facility] [address] [place] [address] Dr. David Cannon EGFR-AF TUVALUAN >60 Normal >=60 [facility] Comment on above: Performed By: #### A NARF #### [facility] [address] [place] [address] Dr. David Cannon EGFR-NON AF TUVALUAN >60 Normal >=60 [facility] Comment on above: Performed By: #### A NARF #### [facility] [address] [place] [address] Dr. David Cannon Globulin (S) [Mass/Vol] 3.6 g/dL Normal [facility] Comment on above: Performed By: #### A NARF #### [facility] [address] [place] [address] Dr. David Cannon Glucose [Mass/Vol] 130 mg/dL Critically high 74-106 [facility] Comment on above: Performed By: #### A NARF #### [facility] [address] [place] [address] Dr. David Cannon Potassium [Moles/Vol] 4.1 mmol/L Normal 3.5-5.1 [facility] Comment on above: Performed By: #### A NARF #### [facility] [address] [place] [address] Dr. David Cannon Protein [Mass/Vol] 7.8 g/dL Normal 6.4-8.2 [facility] Comment on above: Performed By: #### A NARF #### [facility] [address] [place] [address] Dr. David Cannon Sodium [Moles/Vol] 143 mmol/L Normal 136-145 [facility] Comment on above: Performed By: #### A NARF #### [facility] [address] [place] [address] Dr. David Cannon Urea nitrogen [Mass/Vol] 11.0 mg/dL Normal 7.0-18.0 [facility] Comment on above: Performed By: #### A NARF #### [facility] [address] [place] [address] Dr. David Cannon Urea nitrogen/Creatinine [Mass ratio] 16.4 mg/mg Normal [facility] Comment on above: Performed By: #### A NARF #### [facility] [address] [place] [address] Dr. David Cannon PROTIMEon 02-23-2022 INR Coag (PPP) [Relative time] {INR} Normal [facility] Comment on above: Performed By: #### B MP, TSH #### [facility] [address] [place] [address] Dr. David Cannon INR GUIDELINES SEE BELOW Normal [facility] Comment on above: Result Comment: SURY RED INR: 2.0 - 3.0 CONDITIONS NOT LISTED BELOW 2.5 - 3.5 FOR PROSTHETIC HEART VALVE REPLACEMENT 2.5 - 3.5 RECURRENT THROMBOSIS Performed By: #### B MP, TSH #### [facility] [address] [place] [address] Dr. David Cannon PT Coag (PPP) [Time] 10.0 s Normal 9.0-11.6 [facility] Comment on above: Performed By: #### B MP, TSH #### [facility] [address] [address] [address] David Cannon PTTon 02-23-2022 aPTT Coag (Bld) [Time] 25.4 s Normal 22.3-36.2 [facility] Comment on above: Performed By: #### B MP, TSH #### [facility] [address] [address] [address] David Cannon TROPONIN, HIGH SENSITIVITYon 02-23-2022 HSTROP 6.0 pg/mL Normal 4.0-51.3 [facility] Comment on above: Result Comment: CUT- OFF POINTS HAVE BEEN ESTABLISHED BASED ON THE FOURTH UNIVERSAL DEFINITIONS OF MYOCARDIAL INFARCTION. THE UPPER REFERENCE LIMIT (URL) OF TROPONIN, DEFINED THE 99TH PERCENTILE OF cTnI DISTRIBUTION IN A REFERENCE POPULATION, HAS BEEN CONFIRMED THE DECISION THRESHOLD FOR DE DIAGNOSIS. Performed By: #### A NARF #### [facility] [address] [place] [address] Dr. David Cannon XR CHEST 1 Von [...] by: LONI SALAS Date: 2022-02-23 16:18 Normal [facility] CT ABD/PELV W CONon 01-08-20 CT ABD/PELV [...] by: CHAIM MEZA Date: 2022-01-06 22:12 Normal [facility] AMYLASEon 01-06-2022 Amylase [Catalytic activity/Vol] 34 U/L Normal 25-115 [facility] Comment on above: Performed By: #### C ELAINE ASH ####[facility] [id number] [place], [place] [address]Dr. David Cannon CBC AUTO DIFFon 01-06-2022 BASO # 0.0 103/ul Normal 0.0-0.1 [facility] Comment on above: Performed By: #### A NARF #### [facility] [address] [address] [address] David Cannon Basophils/100 WBC (Bld) 0.5 % Normal 0.2-2.0 [facility] Comment on above: Performed By: #### A NARF #### [facility] [address] [address] [address] David Cannon EO # 0.1 103/ul Normal 0.0-0.7 [facility] Comment on above: Performed By: #### A NARF #### [facility] [address] [place] [address] Dr. Davdi Cannon Eosinophils/100 WBC (Bld) 1.4 % Normal 0.9-7.0 [facility] Comment on above: Performed By: #### A NARF #### [facility] [address] [place] [address] Dr. David Cannon Erythrocyte distribution width (RBC) [Ratio] 12.0 % Normal 11.0-15.0 [facility] Comment on above: Performed By: #### A NARF #### [facility] [address] [place] [address] Dr. David Cannon Hematocrit (Bld) [Volume fraction] 44.6 % Normal 36.0-48.0 [facility] Comment on above: Performed By: #### A NARF #### [facility] [address] [place] [address] Dr. David Cannon Hemoglobin (Bld) [Mass/Vol] 14.5 g/dL Normal 12.0-16.0 [facility] Comment on above: Performed By: #### A NARF #### [facility] [address] [place] [address] Dr. David Cannon IG # 0.01 10e3/ul Normal 0.00-0.03 [facility] Comment on above: Performed By: #### A NARF #### [facility] [address] [place] [address] Dr. David Cannon IG % 0.2 % Normal 0.0-0.5 [facility] Comment on above: Performed By: #### A NARF #### [facility] [address] [place] [address] Dr. David Cannon LYMPH # 2.5 103/ul Normal 1.2-3.8 [facility] Comment on above: Performed By: #### A NARF #### [facility] [address] [place] [address] Dr. David Cannon Lymphocytes/100 WBC (Bld) 42.6 % Normal 20.5-60.0 [facility] Comment on above: Performed By: #### A NARF #### [facility] [address] [place] [address] Dr. David Cannon MANUAL DIFF REQ NO Normal [facility] Comment on above: Performed By: #### A NARF #### [facility] [address] [place] [address] Dr. David Cannon MCH (RBC) [Entitic mass] 31.6 pg Normal 26.7-34.0 [facility] Comment on above: Performed By: #### A NARF #### [facility] [address] [place] [address] Dr. David Cannon MCHC (RBC) [Mass/Vol] 32.5 g/dL Normal 29.9-35.2 [facility] Comment on above: Performed By: #### A NARF #### [facility] [address] [place] [address] Dr. David Cannon MCV (RBC) [Entitic vol] 97.2 fL Normal 81.0-99.0 [facility] Comment on above: Performed By: #### A NARF #### [facility] [address] [place] [address] Dr. David Cannon MONO # 0.4 103/ul Normal 0.3-0.8 [facility] Comment on above: Performed By: #### A NARF #### [facility] [address] [place] [address] Dr. David Cannon Monocytes/100 WBC (Bld) 5.9 % Normal 1.7-12.0 [facility] Comment on above: Performed By: #### A NARF #### [facility] [address] [place] [address] Dr. David Cannon NEUT # 2.9 103/ul Normal 1.4-6.5 [facility] Comment on above: Performed By: #### A NARF #### [facility] [address] [place] [address] Dr. David Cannon Neutrophils/100 WBC (Bld) 49.4 % Normal 43.0-75.0 [facility] Comment on above: Performed By: #### A NARF #### [facility] [address] [place], [place] [address] Dr. David Cannon Platelet mean volume (Bld) [Entitic vol] 9.1 fL Critically low 9.5-13.5 [facility] Comment on above: Performed By: #### A NARF #### [facility] [address] [address] [address] David Cannon PLT 257 103/ul Normal 150-450 [facility] Comment on above: Performed By: #### A NARF #### [facility] [id number] David Cannon RBC 4.59 106/ul Normal 4.20-5.40 [facility] Comment on above: Performed By: #### A NARF #### [facility] [address] [address] [address] David Cannon WBC 5.9 103/ul Normal 4.0-11.0 [facility] Comment on above: Performed By: #### A NARF #### [facility] [id number] David Cannon D-DIMERon 01-06-2022 D-DIMER 0.67 mg/L FEU Critically high <=0.59 [facility] Comment on above: Performed By: #### D DIM ####[facility] Slnplpzugf[address] [place] [id number]. David Cannon D-DIMER COMMENTS SEE BELOW Normal [facility] Comment on above: Result Comment: Incr [...] generalized hospitalization. Performed By: #### D DIM ####[facility] Bxrrbdledu[address] [place] [id number]. David Cannon PROF 14(COMP METB)on 022 Albumin [Mass/Vol] 4.0 g/dL Normal 3.4-5.0 [facility] Comment on above: Performed By: #### C NILSA, ELAINE ####[facility] Cgyqvjmqkn05[address] [place] [id number]. David Cannon Albumin/Globulin [Mass ratio] 1.2 {ratio} Normal [facility] Comment on above: Performed By: #### C NILSA, ELAINE ####[facility] Wrdvzrtjih[address] [place] [address]Dr. David Cannon ALP [Catalytic activity/Vol] 78 U/L Normal 46-116 [facility] Comment on above: Performed By: #### C NILSA, ELAINE ####[facility] Jmjcoajvxa48[address] [place] [address]Dr. David Cannon ALT [Catalytic activity/Vol] 23 U/L Normal 14-59 [facility] Comment on above: Performed By: #### C NILSA, ELAINE ####[facility] Zyeuhclpie[address] [place] [address]Dr. David Cannon Anion gap [Moles/Vol] 10.8 mmol/L Normal [facility] Comment on above: Performed By: #### C NILSA, ELAINE ####[facility] Myvopgugul5354 [place] [address]Dr. David Cannon AST [Catalytic activity/Vol] 28 U/L Normal 15-37 [facility] Comment on above: Performed By: #### C NILSA, ELAINE ####[facility] Dipalxbgcx0520 [place] [address]Dr. David Cannon Bilirubin [Mass/Vol] 0.3 mg/dL Normal 0.2-1.0 [facility] Comment on above: Performed By: #### C NILSA, ELAINE ####[facility] Wuslkpodwk3572 [place] [address]Dr. David Cannon Calcium [Mass/Vol] 9.1 mg/dL Normal 8.5-10.1 [facility] Comment on above: Performed By: #### C NILSA, ELAINE ####[facility] Vxfeqneuco89[address] [place] [id number]. David Cannon Chloride [Moles/Vol] 102 mmol/L Normal 98-107 [facility] Comment on above: Performed By: #### C MP, ELAINE ####[facility] Tojgtntzvy38[address] [place] [id number]. David Cannon CO2 [Moles/Vol] 30.3 mmol/L Normal 21.0-32.0 [facility] Comment on above: Performed By: #### C MP, ELAINE ####[facility] Novyxoxxki9953 [place] [address]Dr. David Cannon Creatinine [Mass/Vol] 0.46 mg/dL Critically low 0.55-1.02 [facility] Comment on above: Performed By: #### C NILSA, ELAINE ####[facility] Bscylcgvyt29[address] [place] [address]Dr. David Cannon EGFR-AF TUVALUAN >60 Normal >=60 [facility] Comment on above: Performed By: #### C NILSA, ELAINE ####[facility] Uqnvaubvcc038[address] [place] [address]Dr. David Cannon EGFR-NON AF TUVALUAN >60 Normal >=60 [facility] Comment on above: Performed By: #### C NILSA, ELAINE ####[facility] Bzcwkzuzzy8624 [place] [address]Dr. David Cannon Globulin (S) [Mass/Vol] 3.4 g/dL Normal [facility] Comment on above: Performed By: #### C MP, ELAINE ####[facility] Qzmqydtlic3371 [place] [id number]. David Cannon Glucose [Mass/Vol] 111 mg/dL Critically high 74-106 [facility] Comment on above: Performed By: #### C MP, ELAINE ####[facility] Bmmzqbmyvf1386 [place] [address]Dr. David Cannon Potassium [Moles/Vol] 4.1 mmol/L Normal 3.5-5.1 [facility] Comment on above: Performed By: #### C NILSA, ELAINE ####[facility] Nompazhxrw8598 [place] [address]Dr. David Cannon Protein [Mass/Vol] 7.4 g/dL Normal 6.4-8.2 [facility] Comment on above: Performed By: #### C MP, ELAINE ####[facility] Aczkcnkwco[address] [place], [place] [address]Dr. David Cannon Sodium [Moles/Vol] 139 mmol/L Normal 136-145 [facility] Comment on above: Performed By: #### C MP, ELAINE ####[facility] Dmjyblqpuz9[address] [place], [place] [address]Dr. David Cannon Urea nitrogen [Mass/Vol] 14.0 mg/dL Normal 7.0-18.0 [facility] Comment on above: Performed By: #### C MP, ELAINE ####[facility] Xwwkinrixy[address] [place], [place] [address]Dr. David Cannon Urea nitrogen/Creatinine [Mass ratio] 30.4 mg/mg Normal [facility] Comment on above: Performed By: #### C MP, ELAINE ####[facility] Azgwmnicye6[address] [place], [place] [address]Dr. David Cannon CBC AUTO DIFFon 11-28-2021 BASO # 0.0 103/ul Normal 0.0-0.1 [facility] Comment on above: Performed By: #### C BC ####[facility] Ycfellpxjx8[address] [place], [place] [address]Dr. David Davis Basophils/100 WBC (Bld) 0.8 % Normal 0.2-2.0 [facility] Comment on above: Performed By: #### C BC ####[facility] Oaafgqivav4[address] [place], [place] [address]Dr. David Davis EO # 0.1 103/ul Normal 0.0-0.7 [facility] Comment on above: Performed By: #### C BC ####[facility] Ahrbbqpkiy[address] [place], [place] [address]Dr. David Davis Eosinophils/100 WBC (Bld) 3.0 % Normal 0.9-7.0 [facility] Comment on above: Performed By: #### C BC ####[facility] Rcwuheyjbn8094 [place] [address]Dr. David Cannon Erythrocyte distribution width (RBC) [Ratio] 11.9 % Normal 11.0-15.0 [facility] Comment on above: Performed By: #### C BC ####[facility] Bagkokngpl6817 [place] [address]Dr. David Cannon Hematocrit (Bld) [Volume fraction] 42.4 % Normal 36.0-48.0 [facility] Comment on above: Performed By: #### C BC ####[facility] Pysrsaezrx[address] [place], [place] [address]Dr. David Cannon Hemoglobin (Bld) [Mass/Vol] 13.3 g/dL Normal 12.0-16.0 [facility] Comment on above: Performed By: #### C BC ####[facility] Kkvwavasoq[address] [place], [place] [address]Dr. David Cannon IG # 0.01 10e3/ul Normal 0.00-0.03 [facility] Comment on above: Performed By: #### C BC ####[facility] Skutshmsmw[address] [place], [place] [address]Dr. David Cannon IG % 0.3 % Normal 0.0-0.5 [facility] Comment on above: Performed By: #### C BC ####[facility] Xrhefeglpl[address] [place], [place] [address]Dr. David Cannon LYMPH # 1.6 103/ul Normal 1.2-3.8 [facility] Comment on above: Performed By: #### C BC ####[facility] Pdzygxrxca[address] [place], [place] [address]Dr. David Cannon Lymphocytes/100 WBC (Bld) 39.6 % Normal 20.5-60.0 [facility] Comment on above: Performed By: #### C BC ####[facility] Imaqxhjpci[address] [place], [place] [address]Dr. David Cannon MANUAL DIFF REQ NO Normal [facility] Comment on above: Performed By: #### C BC ####[facility] Dybvdlotfy6704 [place] [id number]. David Davis MCH (RBC) [Entitic mass] 31.6 pg Normal 26.7-34.0 [facility] Comment on above: Performed By: #### C BC ####[facility] Ocinntqwsb2391 [place] [address]Dr. David Davis MCHC (RBC) [Mass/Vol] 31.4 g/dL Normal 29.9-35.2 [facility] Comment on above: Performed By: #### C BC ####[facility] Ibnstfvmsn5601 [place] [address]DrGerry Janellbraeden Cannon MCV (RBC) [Entitic vol] 100.7 fL Critically high 81.0-99 .0 [facility] Comment on above: Performed By: #### C BC ####[facility] Zwyfnkvwvh[address] [place], [place] [address]DrGerry Cannon MONO # 0.4 103/ul Normal 0.3-0.8 [facility] Comment on above: Performed By: #### C BC ####[facility] Spockrdirg[address] [place], [place] [address]Dr. Janellbraeden Cannon Monocytes/100 WBC (Bld) 11.2 % Normal 1.7-12.0 [facility] Comment on above: Performed By: #### C BC ####[facility] Pabqzquvmh[address] [place], [place] [address]DrGerry Janellbraeden Cannon NEUT # 1.8 103/ul Normal 1.4-6.5 [facility] Comment on above: Performed By: #### C BC ####[facility] Dxpavlwnkf[address] [place], [place] [address]DrGerry Cannon Neutrophils/100 WBC (Bld) 45.1 % Normal 43.0-75.0 [facility] Comment on above: Performed By: #### C BC ####[facility] Ydoroxrgxf[address] [place], [place] [address]DrGerry Cannon Platelet mean volume (Bld) [Entitic vol] 9.1 fL Critically low 9.5-13.5 [facility] Comment on above: Performed By: #### C BC ####[facility] Tkoqggjteg5741 [place], [place] [address]Wp. David Cannon PLT 177 103/ul Normal 150-450 [facility] Comment on above: Performed By: #### C BC ####[facility] Ckuglewcrd4066 [place], [place] [address]Xe. David Cannon RBC 4.21 106/ul Normal 4.20-5.40 [facility] Comment on above: Performed By: #### C BC ####[facility] Ivgkozvzci1226 [place], [place] [address]Vj. David Cannon WBC 3.9 103/ul Critically low 4.0-11.0 [facility] Comment on above: Performed By: #### C BC ####[facility] Pjmowouqtn4854 [place], [place] [address]Dr. David Cannon CRPon 11-28-2021 CRP [Mass/Vol] mg/L Normal <=1.0 [facility] Comment on above: Performed By: #### A NARF #### [facility] [address] [place], [place] [address] Dr. aDvid Cannon XR LSPINE 2_3 VIEWSon 2021 XR LSPINE 2_3 VIEWS EXAMINATION: XR LSPINE 2_3 VIEWS, XR SACRUM_COCCYX HISTORY: History of fall COMPARISON: 10/16/2021 CT exam FINDINGS: BONES: Rotatory levocurvature centered at L3. Kyphoplasty at L2. 40% anterior superior wedge compression fracture of T12. Left superior wedge compression fracture of L5. Minimal degenerative spondylosis. Rtqq-ic-jetlelbm facet osteoarthropathy. DISC SPACES: Multilevel disc space narrowing PARASPINOUS: Negative. No paraspinous abnormality is seen. OTHER: Negative. IMPRESSION: Grossly stable from CT exam performed 4 days ago Electronically authenticated by: JANNA LAWTON Date: 2021-10-20 12:06 Normal [facility] CULTURE URINEon 10-18-2021 CULTURE URINE Isolate 1 [...] F Trimethoprim/Sulfam ethoxazole <=20 S F Normal [facility] Comment on above: Performed By: #### U RCX ####[facility] Tfajlvwghb[address] [place], [place] [address]Dr. David Cannon AMYLASEon 10-16-2021 Amylase [Catalytic activity/Vol] 35 U/L Normal 25-115 [facility] Comment on above: Performed By: #### B MP, TSH #### [facility] [address] [place] [address] [address] David Cannon CBC AUTO DIFFon 10-16-2021 BASO # 0.0 103/ul Normal 0.0-0.1 [facility] Comment on above: Performed By: #### C BC ####[facility] Ckunjwyaqq[address] [place], [place] [address]DrGerry Cannon Basophils/100 WBC (Bld) 0.7 % Normal 0.2-2.0 [facility] Comment on above: Performed By: #### C BC ####[facility] Cxtlhfnptz[address] [place], [place] [address]DrGerry Cannon EO # 0.1 103/ul Normal 0.0-0.7 [facility] Comment on above: Performed By: #### C BC ####[facility] Aixwkxqxzz35[address] [place], [place] [address]DrGerry Cannon Eosinophils/100 WBC (Bld) 1.0 % Normal 0.9-7.0 [facility] Comment on above: Performed By: #### C BC ####[facility] Tsplwlqbnh[address] [place], [place] [address]DrGerry Cannon Erythrocyte distribution width (RBC) [Ratio] 11.7 % Normal 11.0-15.0 [facility] Comment on above: Performed By: #### C BC ####[facility] Pptajihcfd3937 [place] [address]Dr. David Cannon Hematocrit (Bld) [Volume fraction] 46.9 % Normal 36.0-48.0 [facility] Comment on above: Performed By: #### C BC ####[facility] Rirffqgytq[address] [place], [place] [address]Dr. David Cannon Hemoglobin (Bld) [Mass/Vol] 15.2 g/dL Normal 12.0-16.0 [facility] Comment on above: Performed By: #### C BC ####[facility] Fwwhvomecj[address] [place], [place] [address]Dr. David Cannon IG # 0.01 10e3/ul Normal 0.00-0.03 [facility] Comment on above: Performed By: #### C BC ####[facility] Sfheyirrbc[address] [place], [place] [address]Dr. David Cannon IG % 0.2 % Normal 0.0-0.5 [facility] Comment on above: Performed By: #### C BC ####[facility] Zmyrygqege[address] [place], [place] [address]DrGerry David Cannon LYMPH # 1.7 103/ul Normal 1.2-3.8 [facility] Comment on above: Performed By: #### C BC ####[facility] I[address]ymvaulbt[address] [place], [place] [address]DrGerry Janellbraeden Cannon Lymphocytes/100 WBC (Bld) 29.0 % Normal 20.5-60.0 [facility] Comment on above: Performed By: #### C BC ####[facility] Ewrcrfqpyt02[address] [place], [place] [address]DrGerry Janellbraeden Cannon MANUAL DIFF REQ NO Normal [facility] Comment on above: Performed By: #### C BC ####[facility] [address]sjyuhuaw[address] [place], [place] [address]DrGerry Janellbraeden Cannon MCH (RBC) [Entitic mass] 32.0 pg Normal 26.7-34.0 [facility] Comment on above: Performed By: #### C BC ####[facility] Yqfckdlkpk9382 [place] [address]Dr. David Cannon MCHC (RBC) [Mass/Vol] 32.4 g/dL Normal 29.9-35.2 [facility] Comment on above: Performed By: #### C BC ####[facility] Urwkrdsexx[address] [place], [place] [address]DrGerry Cannon MCV (RBC) [Entitic vol] 98.7 fL Normal 81.0-99.0 [facility] Comment on above: Performed By: #### C BC ####[facility] Ynpmkmqiyp[address] [place], [place] [address]DrGerry Cannon MONO # 0.4 103/ul Normal 0.3-0.8 [facility] Comment on above: Performed By: #### C BC ####[facility] Sujywmwhdx[address] [place], [place] [address]DrGerry Cannon Monocytes/100 WBC (Bld) 6.6 % Normal 1.7-12.0 [facility] Comment on above: Performed By: #### C BC ####[facility] Comrmdsysx[address] [place], [place] [address]DrGerry Cannon NEUT # 3.7 103/ul Normal 1.4-6.5 [facility] Comment on above: Performed By: #### C BC ####[facility] Lhmtbczlao[address] [place], [place] [address]DrGerry Cannon Neutrophils/100 WBC (Bld) 62.5 % Normal 43.0-75.0 [facility] Comment on above: Performed By: #### C BC ####[facility] Acphqibara[address] [place], [place] [address]DrGerry Cannon Platelet mean volume (Bld) [Entitic vol] 9.5 fL Normal 9.5-13.5 [facility] Comment on above: Performed By: #### C BC ####[facility] Ltcfwuawha[address] [place], [place] [address]DrGerry Cannon PLT 216 103/ul Normal 150-450 [facility] Comment on above: Performed By: #### C BC ####[facility] Wppouyebil5965 [place], [place] [address]Tp. David Cannon RBC 4.75 106/ul Normal 4.20-5.40 [facility] Comment on above: Performed By: #### C BC ####[facility] Yvcwlisgyp6369 [place], [place] [address]Yc. David Cannon WBC 5.9 103/ul Normal 4.0-11.0 [facility] Comment on above: Performed By: #### C BC ####[facility] Dppuiwszsg4334 [place], [place] [address]Y[address]. [address] CT ABD/PELV W CONon 10-17-19 CT [...] JANNA DHALIWAL Date: 2021-10-16 15:43 Normal [facility] ER URINE PROFILEon 2 Bilirubin Ql (U) Negative Normal NEGATIVE [facility] Comment on above: Performed By: #### U MICRO, ERUR #### [facility] [address] [place] [address] Dr. David Cannon Clarity (U) SL CLOUDY Abnormal CLEAR [facility] Comment on above: Performed By: #### U MICRO, ERUR #### [facility] [address] [place] [address] Dr. David Cannon Color (U) YELLOW Normal YELLOW [facility] Comment on above: Performed By: #### U MICRO, ERUR #### [facility] [address] [place] [address] [address] David Cannon ERUAHD A micrscopic examination will be performed if indicated. Normal [facility] Comment on above: Performed By: #### U MICRO, ERUR #### [facility] [address] [place] [address] [address] David Cannon Glucose Ql (U) Negative Normal NEGATIVE [facility] Comment on above: Performed By: #### U MICRO, ERUR #### [facility] [address] [place] [address] [address] David Cannon Hemoglobin Ql (U) Negative Normal NEGATIVE [facility] Comment on above: Performed By: #### U MICRO, ERUR #### [facility] [address] [place] [address] Dr. David Cannon Ketones Ql (U) TRACE Abnormal NEGATIVE [facility] Comment on above: Performed By: #### U MICRO, ERUR #### [facility] [address] [place] [address] [address] David Cannon LEUKOCYTES SMALL Abnormal NEGATIVE [facility] Comment on above: Performed By: #### U MICRO, ERUR #### [facility] [address] [place] [address] [address] David Cannon Nitrite Ql (U) Positive Abnormal NEGATIVE [facility] Comment on above: Performed By: #### U MICRO, ERUR #### [facility] [address] [place] [address] Dr. David Cannon pH (U) 5.5 [pH] Normal 5-9 [facility] Comment on above: Performed By: #### U MICRO, ERUR #### [facility] [address] [place] [address] Dr. David Cannon SPEC GRAVITY >=1.030 Abnormal 1.005-<=1.[address] [place] [address] Comment on above: Performed By: #### U MICRO, ERUR #### [facility] [address] [place] [address] Dr. David Cannon UA PROTEIN Negative Normal NEGATIVE/ TRACE [facility] Comment on above: Performed By: #### U MICRO, ERUR #### [facility] [address] [place] [address] Dr. David Cannon UR MICRO IND INDICATED Normal [facility] Comment on above: Performed By: #### U MICRO, ERUR #### [facility] [address] [place] [address] Dr. David Cannon Urobilinogen Qn (U) 0.2 {Skip'U}/dL Normal 0.2 - 1. 0 [facility] Comment on above: Performed By: #### U MICRO, ERUR #### [facility] [address] [place] [address] Dr. David Cannon LIPASEon 10-16-2021 Lipase [Catalytic activity/Vol] 93.0 U/L Normal 73.0-393.0 [facility] Comment on above: Performed By: #### B MP, TSH #### [facility] [address] [place] [address] [address] David Cannon PROF 14(COMP METB)on 022 Albumin [Mass/Vol] 4.1 g/dL Normal 3.4-5.0 [facility] Comment on above: Performed By: #### B MP, TSH #### [facility] [address] [place] [address] Dr. David Cannon Albumin/Globulin [Mass ratio] 1.1 {ratio} Normal [facility] Comment on above: Performed By: #### B MP, TSH #### [facility] [address] [place] [address] Dr. David Cannon ALP [Catalytic activity/Vol] 88 U/L Normal 46-116 [facility] Comment on above: Performed By: #### B MP, TSH #### [facility] [address] [place] [address] Dr. David Cannon ALT [Catalytic activity/Vol] 17 U/L Normal 14-59 [facility] Comment on above: Performed By: #### B MP, TSH #### [facility] [address] [place] [address] Dr. David Cannon Anion gap [Moles/Vol] 12.4 mmol/L Normal [facility] [place] [facility] Comment on above: Performed By: #### B MP, TSH #### [facility] [address] [place] [address] Dr. David Cannon AST [Catalytic activity/Vol] 15 U/L Normal 15-37 [facility] Comment on above: Performed By: #### B MP, TSH #### [facility] [address] [place] [address] Dr. David Cannon Bilirubin [Mass/Vol] 0.2 mg/dL Normal 0.2-1.0 [facility] Comment on above: Performed By: #### B MP, TSH #### [facility] [address] [place] [address] Dr. David Cannon Calcium [Mass/Vol] 9.8 mg/dL Normal 8.5-10.1 [facility] Comment on above: Performed By: #### B MP, TSH #### [facility] [address] [place] [address] [address] David Cannon Chloride [Moles/Vol] 103 mmol/L Normal 98-107 [facility] Comment on above: Performed By: #### B MP, TSH #### [facility] [address] [place] [address] [address] David Cannon CO2 [Moles/Vol] 30.6 mmol/L Normal 21.0-32.0 [facility] Comment on above: Performed By: #### B MP, TSH #### [facility] [address] [place] [address] [address] David Cannon Creatinine [Mass/Vol] 0.85 mg/dL Normal 0.55-1.02 [facility] Comment on above: Performed By: #### B MP, TSH #### [facility] [address] [place] [address] Dr. David Cannon EGFR-AF TUVALUAN >60 Normal >=60 [facility] Comment on above: Performed By: #### B MP, TSH #### [facility] [address] [place] [address] Dr. David Cannon EGFR-NON AF TUVALUAN >60 Normal >=60 [facility] Comment on above: Performed By: #### B MP, TSH #### [facility] [address] [place] [address] Dr. David Cannon Globulin (S) [Mass/Vol] 3.8 g/dL Normal [facility] Comment on above: Performed By: #### B MP, TSH #### [facility] [address] [place] [address] Dr. David Cannon Glucose [Mass/Vol] 119 mg/dL Critically high 74-106 [facility] Comment on above: Performed By: #### B MP, TSH #### [facility] [address] [place] [address] Dr. David Cannon Potassium [Moles/Vol] 4.0 mmol/L Normal 3.5-5.1 [facility] Comment on above: Performed By: #### B MP, TSH #### [facility] [address] [place] [address] Dr. David Cannon Protein [Mass/Vol] 7.9 g/dL Normal 6.4-8.2 [facility] Comment on above: Performed By: #### B MP, TSH #### [facility] [address] [place] [address] [address] David Cannon Sodium [Moles/Vol] 142 mmol/L Normal 136-145 [facility] Comment on above: Performed By: #### B MP, TSH #### [facility] [address] [place] [address] Dr. David Cannon Urea nitrogen [Mass/Vol] 12.0 mg/dL Normal 7.0-18.0 [facility] Comment on above: Performed By: #### B MP, TSH #### [facility] [address] [place] [address] Dr. David Cannon Urea nitrogen/Creatinine [Mass ratio] 14.1 mg/mg Normal [facility] Comment on above: Performed By: #### B MP, TSH #### [facility] [address] [place] [address] Dr. David Cannon URINE MICROSCOPIC ONLYon BACTERIA LARGE Abnormal NONE SEEN [facility] Comment on above: Performed By: #### U MICRO, ERUR #### [facility] [address] [place] [address] Dr. David Cannon Bacteria identified Cx Nom (U) INDICATED Normal [facility] Comment on above: Performed By: #### U MICRO, ERUR #### [facility] [address] [place] [address] Dr. David Cannon CA OX CRYSTALS FEW Normal [facility] Comment on above: Performed By: #### U MICRO, ERUR #### [facility] [address] [place] [address] Dr. David Cannon CAST SEEN Abnormal NONE SEEN [facility] Comment on above: Performed By: #### U MICRO, ERUR #### [facility] [address] [place] [address] Dr. David Cannon Crystals LM Nom (Urine sed) SEEN Abnormal NONE SEEN [facility] Comment on above: Performed By: #### U MICRO, ERUR #### [facility] [address] [place] [address] [address] David Cannon Epithelial cells LM Ql (Urine sed) RARE Normal NONE SEEN /RARE [facility] Comment on above: Performed By: #### U MICRO, ERUR #### [facility] [address] [place] [address] Dr. David Cannon HYALINE CAST FEW Normal [facility] Comment on above: Performed By: #### U MICRO, ERUR #### [facility] [address] [address] [address] David Cannon MUCOUS TRACE Abnormal NONE SEEN [facility] Comment on above: Performed By: #### U MICRO, ERUR #### [facility] [address] [place] [address] Dr. David Cannon RBC 2-5 Abnormal 0-2 [facility] Comment on above: Performed By: #### U MICRO, ERUR #### [facility] [address] [place] [address] Dr. David Cannon WBC 75-100 Abnormal NONE SEEN [facility] Comment on above: Performed By: #### U MICRO, ERUR #### [facility] [address] [place] [address] Dr. David Cannon XR ANKLE RT MIN [...] STEPHANIE DODD Date: 2021-10-05 10:56 Normal [facility] MRI TSPINE WO W CONon 2021 MRI [...] subacute to chronic. Electronically authenticated by: CELIA CORMIER Date: 2021-09-01 07:29 Normal [facility] CREATININEon 08-31-2021 Creatinine [Mass/Vol] 0.82 mg/dL Normal 0.55-1.02 [facility] Comment on above: Performed By: #### C LUCIA #### [facility] [address] [place] [address] Dr. David Cannon EGFR-AF TUVALUAN >60 Normal >=60 [facility] Comment on above: Performed By: #### C LUCIA #### [facility] [address] [place] [address] Dr. David Cannon EGFR-NON AF TUVALUAN >60 Normal >=60 [facility] Comment on above: Performed By: #### C LUCIA #### [facility] [address] [place] [address] Dr. David Cannon COVID Quick Testingon 2021 Result Negative [email or web address] Other Quick Fluon 04-13-2021 FLUAV Ab CF (S) [Titer] Negative N [facility] Other FLUBV Ab CF (S) [Titer] Negative N [facility] Other Vital Signs Date Time Vital Sign Value Performing Clinician Facility 04-11-2023 14:20-0500 Body height 157.48 cm Ana Kim Other [email or web address] Other 04-11-2023 14:20-0500 Body mass index (BMI) [Ratio] 19.75 kg/m2 [facility] Other [email or web address] Other 04-11-2023 14:20-0500 Body weight 48.99 kg [facility] Other [email or web address] Other 02-27-2023 11:00-0500 Body height 157.48 cm [facility] Other [email or web address] Other 02-27-2023 11:00-0500 Body mass index (BMI) [Ratio] 19.75 kg/m2 [facility] Other [email or web address] Other 02-27-2023 11:00-0500 Body weight 48.99 kg [facility] Other [email or web address] Other 10-24-2022 13:00-0400 Body height 157.48 cm Yolanda Chavez Other [email or web address] Other 10-24-2022 13:00-0400 Body mass index (BMI) [Ratio] 21.21 kg/m2 Yolanda Chavez Other [email or web address] Other 10-24-2022 13:00-0400 Body weight 52.62 kg Yolanda Chavez Other [email or web address] Other 10-24-2022 13:00-0400 Diastolic blood pressure 82 mm[Hg] Yolanda Chavez Other [email or web address] Other 10-24-2022 13:00-0400 Systolic blood pressure 129 mm[Hg] Yolanda Chavez Other [email or web address] Other 09-07-2022 14:15-0400 Body height 157.48 cm Kiran Amaya Other [email or web address] Other 09-07-2022 14:15-0400 Body mass index (BMI) [Ratio] 20.48 kg/m2 Kiran Amaya Other [email or web address] Other 09-07-2022 14:15-0400 Body weight 50.8 kg Kiran Amaya Other [facility] Other 09-07-2022 14:15-0400 Diastolic blood pressure 80 mm[Hg] Kiran Amaya Other [facility] Other 09-07-2022 14:15-0400 Systolic blood pressure 137 mm[Hg] Kiran Amaya Other [facility] Other 08-29-2022 14:00-0400 Body height 157.48 cm Yolanda Chavez Other [facility] Other 08-29-2022 14:00-0400 Body mass index (BMI) [Ratio] 20.3 kg/m2 Yolanda Chavez Other [email or web address] Other 08-29-2022 14:00-0400 Body weight 50.35 kg Yolanda Chavez Other [facility] Other 08-29-2022 14:00-0400 Diastolic blood pressure 85 mm[Hg] Yolanda Chavez Other [facility] Other 08-29-2022 14:00-0400 Systolic blood pressure 144 mm[Hg] Yolanda Chavez Other [facility] Other 08-25-2022 16:50-0400 Body height 157.48 cm Sandra Sandra Other [email or web address] Other 08-25-2022 16:50-0400 Body mass index (BMI) [Ratio] 20.59 kg/m2 Sandra Sandra Other [email or web address] Other 08-25-2022 16:50-0400 Body temperature 96.6 [degF] Sandra Sandra Other [facility] Other 08-25-2022 16:50-0400 Body weight 51.08 kg Sandra Sandra Other [facility] Other 08-25-2022 16:50-0400 Diastolic blood pressure 71 mm[Hg] Sandraneftali Flores Other [facility] Other 08-25-2022 16:50-0400 Respiratory rate 20 /min Sandra Sandra Other [facility] Other 08-25-2022 16:50-0400 SaO2% (BldA) [Mass fraction] 94 % Sandra Sandra Other [facility] Other 08-25-2022 16:50-0400 Systolic blood pressure 106 mm[Hg] Sandra Flores Other [facility] Other 08-03-2022 14:30-0400 Body height 157.48 cm Yolanda Chavez Other [facility] Other 08-03-2022 14:30-0400 Body mass index (BMI) [Ratio] 21.21 kg/m2 Yolanda Chavez Other [email or web address] Other 08-03-2022 14:30-0400 Body weight 52.62 kg Yolanda Chavez Other [facility] Other 08-03-2022 14:30-0400 Diastolic blood pressure 93 mm[Hg] Yolanda Chavez Other [facility] Other 08-03-2022 14:30-0400 Systolic blood pressure 143 mm[Hg] Yolanda Chavez Other [facility] Other 06-20-2022 16:20-0400 Body height 157.48 cm Vanessa Sanford Other [facility] Other 06-20-2022 16:20-0400 Body mass index (BMI) [Ratio] 21.95 kg/m2 Vanessa Sanford Other [email or web address] Other 06-20-2022 16:20-0400 Body temperature 98.9 [degF] Vanessa Sanford Other [facility] Other 06-20-2022 16:20-0400 Body weight 54.43 kg Vanessa Sanford Other [facility] Other 06-20-2022 16:20-0400 Diastolic blood pressure 81 mm[Hg] Vanessa Sanford Other [facility] Other 06-20-2022 16:20-0400 Respiratory rate 18 /min Vanessa Sanford Other [facility] Other 06-20-2022 16:20-0400 SaO2% (BldA) [Mass fraction] 99 % Vanessa Sanford Other [facility] Other 06-20-2022 16:20-0400 Systolic blood pressure 150 mm[Hg] Vanessa Sanford Other [facility] Other 06-16-2022 12:30-0400 Body height 157.48 cm Phani Ball Other [facility] Other 06-16-2022 12:30-0400 Body mass index (BMI) [Ratio] 22.2 kg/m2 Phani Ball Other [email or web address] Other 06-16-2022 12:30-0400 Body weight 55.07 kg Phani Ball Other [facility] Other 06-16-2022 12:30-0400 Diastolic blood pressure 75 mm[Hg] Phani Ball Other [facility] Other 06-16-2022 12:30-0400 Respiratory rate 12 /min Phani Ball Other [facility] Other 06-16-2022 12:30-0400 Systolic blood pressure 139 mm[Hg] Phani Ball Other [facility] Other 05-29-2022 14:45-0400 Body height 157.48 cm Phani Ball Other [facility] Other 05-29-2022 14:45-0400 Body mass index (BMI) [Ratio] 21.25 kg/m2 Phain Ball Other [facility] Other 05-29-2022 14:45-0400 Body weight 52.71 kg Phani Ball Other [facility] Other 05-29-2022 14:45-0400 Diastolic blood pressure 98 mm[Hg] Phani Ball Other [facility] Other 05-29-2022 14:45-0400 Respiratory rate 12 /min Phani Ball Other [facility] Other 05-29-2022 14:45-0400 Systolic blood pressure 150 mm[Hg] Phani Ball Other [facility] Other 03-14-2022 15:30-0500 Body height 157.48 cm Kiran Amaya Other [facility] Other 03-14-2022 15:30-0500 Body mass index (BMI) [Ratio] 19.57 kg/m2 Kiran Amaya Other [email or web address] Other 03-14-2022 15:30-0500 Body weight 48.54 kg Kiran Amaya Other [email or web address] Other 03-14-2022 15:30-0500 Diastolic blood pressure 96 mm[Hg] Kiran Amaya Other [facility] Other 03-14-2022 15:30-0500 Systolic blood pressure 136 mm[Hg] Kiran Amaya Other [facility] Other 01-20-2022 11:40-0500 Diastolic blood pressure 84 mm[Hg] DO Phani Ball Work Phone: [facility] 01-20-2022 11:40-0500 Heart rate 79 /min DO Phani Ball Work Phone: [facility] 01-20-2022 11:40-0500 Respiratory rate 18 /min DO Phani Ball Work Phone: [facility] 01-20-2022 11:40-0500 SaO2% (BldA) [Mass fraction] 97 % DO Phani Ball Work Phone: [facility] 01-20-2022 11:40-0500 Systolic blood pressure 143 mm[Hg] DO Phani Ball Work Phone: [facility] 01-20-2022 09:05-0500 Body height 157.48 cm DO Phani Ball Work Phone: [facility] 01-20-2022 09:05-0500 Body temperature 98.2 [degF] DO Phani Ball Work Phone: [facility] 01-20-2022 09:05-0500 Body weight 51.25 kg DO Phani Ball Work Phone: [facility] 12-09-2021 12:00-0400 Body height 157.48 cm Kiran Amaya Other [email or web address] Other 12-09-2021 12:00-0400 Body mass index (BMI) [Ratio] 21.58 kg/m2 Kiran Amaya Other [email or web address] Other 12-09-2021 12:00-0400 Body weight 53.52 kg Kiran Amaya Other [email or web address] Other 09-05-2021 17:00-0400 Body height 157.48 cm Ambrose Torres Other [email or web address] Other 09-05-2021 17:00-0400 Body mass index (BMI) [Ratio] 23.01 kg/m2 Ambrose Torres Other [email or web address] Other 09-05-2021 17:00-0400 Body weight 57.06 kg Ambrose Torres Other [email or web address] Other 06-13-2021 10:45-0400 Body height 157.48 cm Janna Pina Other [facility] Other 06-13-2021 10:45-0400 Body mass index (BMI) [Ratio] 23.23 kg/m2 Janna Pina Other [email or web address] Other 06-13-2021 10:45-0400 Body weight 57.61 kg Janna Pina Other [email or web address] Other 06-13-2021 10:45-0400 Diastolic blood pressure 107 mm[Hg] Janna Pina Other [email or web address] Other 06-13-2021 10:45-0400 Systolic blood pressure 145 mm[Hg] Janna Pina Other [email or web address] Other 04-13-2021 10:05-0500 Body height 157.48 cm Shira Velasquezmond Other [facility] Other 04-13-2021 10:05-0500 Body mass index (BMI) [Ratio] 22.86 kg/m2 Shira Velasquezmond Other [email or web address] Other 04-13-2021 10:05-0500 Body temperature 96.2 [degF] Shira Velasquezmond Other [facility] Other 04-13-2021 10:05-0500 Body weight 56.7 kg Shira Velasquezmond Other [email or web address] Other 04-13-2021 10:05-0500 Respiratory rate 18 /min Shira Velasquezmond Other [email or web address] Other 04-13-2021 10:05-0500 SaO2% (BldA) [Mass fraction] 95 % Shira Velasquezmond Other [email or web address] Other 01-20-2021 12:00-0500 Body height 157.48 cm Janna Pina Other [email or web address] Other 01-20-2021 12:00-0500 Body mass index (BMI) [Ratio] 23.04 kg/m2 Janna Pina Other [email or web address] Other 01-20-2021 12:00-0500 Body weight 57.15 kg Janna Pina Other [email or web address] Other 12-07-2020 15:30-0400 Body height 157.48 cm Janna Pina Other [email or web address] Other 12-07-2020 15:30-0400 Body mass index (BMI) [Ratio] 22.86 kg/m2 Janna Pina Other [email or web address] Other 12-07-2020 15:30-0400 Body weight 56.7 kg Janna Pina Other [email or web address] Other Encounters Encounter Date Encounter Type Care Provider Facility Start: 04-19-2023 End: 04-19-2023 Subsequent hospital visit by physician Rad External Film EF [facility] EXTERNAL [employer] Comment on above: Arrived Start: 04-13-2023 End: 04-13-2023 ambulatory Yolanda Chavez Other [email or web address] Other Start: 04-13-2023 Telephone encounter Yolanda Chavez [facility] Start: 04-11-2023 End: 04-11-2023 ambulatory Ana Kim Other [email or web address] Other Start: 04-11-2023 Office outpatient vi sit 15 minutes Ana Kim [facility] Start: 03-08-2023 End: 03-08-2023 ambulatory Yolanda Chavez Other [email or web address] Other Start: 03-08-2023 Office outpatient vi sit 15 minutes Yolanda Chavez [facility] Start: 03-08-2023 Telephone encounter Yolanda Kathy [facility] Start: 03-02-2023 End: 03-02-2023 ambulatory Ana Kim Other [email or web address] Other Start: 03-02-2023 Telephone encounter Ana Kim [facility] Start: 02-27-2023 End: 02-27-2023 ambulatory Yolanda Chavez Facility:[facility] Start: 02-27-2023 Office outpatient vi sit 25 minutes Ana Julio [facility] Start: 02-27-2023 End: 02-27-2023 ambulatory MD Yolanda Chavez Work Phone: [facility] Work Phone: Start: 02-27-2023 End: 02-27-2023 Patient encounter procedure MD Yolanda Chavez Work Phone: [facility] Work Phone: Start: 02-20-2023 End: 02-20-2023 ambulatory Yolanda Chavez Other [email or web address] Other Start: 02-20-2023 Telephone encounter Yolanda Kathy [facility] Start: 02-15-2023 End: 02-15-2023 ambulatory Yolanda Chavez Other [email or web address] Other Start: 02-15-2023 Telephone encounter Yolanda Chavez [facility] Start: 02-12-2023 End: 02-12-2023 ambulatory Yolanda Chavez Other [email or web address] Other Start: 02-12-2023 Telephone encounter Yolanda Chavez [facility] Start: 01-29-2023 End: 01-29-2023 ambulatory Kiran Amaya Other [email or web address] Other Start: 01-29-2023 Telephone encounter Kiran Vega ck [facility] Start: 01-26-2023 End: 01-26-2023 ambulatory Kiran Amaya Other [email or web address] Other Start: 01-26-2023 Telephone encounter Kiran Vega ck [facility] Start: 01-25-2023 End: 01-25-2023 ambulatory Yolanda Chavez Other [email or web address] Other Start: 01-25-2023 Telephone encounter Yolanda Chavez [facility] Start: 01-23-2023 End: 01-24-2023 ambulatory ROBIN FLANNERY Not Available Start: 01-22-2023 End: 01-22-2023 ambulatory Yolanda Chavez Other [email or web address] Other Start: 01-22-2023 Telephone encounter Yolanda Chavez [facility] Start: 01-15-2023 (Televisit) Televisit Yolanda Chavez [facility] Start: 01-15-2023 End: 01-15-2023 ambulatory Yolanda Chavez Other [email or web address] Other Start: 01-12-2023 End: 01-12-2023 ambulatory Yolanda Chavez Other [email or web address] Other Start: 01-12-2023 Telephone encounter Yolanda Chavez [facility] Start: 01-11-2023 End: 01-11-2023 ambulatory Yolanda Chavez Facility:[facility] Start: 01-11-2023 End: 01-11-2023 ambulatory MD Yolanda Chavez Work Phone: [facility] Work Phone: Start: 01-11-2023 End: 01-11-2023 Patient encounter procedure MD Yolanda Chavez Work Phone: [facility] Work Phone: Start: 12-28-2022 End: 12-28-2022 ambulatory Yolanda Chavez Other [email or web address] Other Start: 12-28-2022 Telephone encounter Yolanda Chavez [facility] Start: 12-26-2022 (Televisit) Televisit Yolanda Chavez [facility] Start: 12-26-2022 End: 12-26-2022 ambulatory Yolanda Chavez Other [email or web address] Other Start: 12-25-2022 Telephone encounter Yolanda Chavez [facility] Start: 12-25-2022 End: 12-26-2022 ambulatory Cleveland RAMOS [facility] Other Start: 12-25-2022 End: 12-25-2022 Patient encounter procedure Cleveland Caraballo RICHARD [facility] Start: 12-18-2022 End: 12-18-2022 Office outpatient new 45 minutes Libby Muñoz PA-C Work Phone: [facility] Comment on above: Pancreas cyst (Prima ry Dx) Start: 11-28-2022 End: 11-28-2022 ambulatory Kiran Amaya Other [email or web address] Other Start: 11-28-2022 Telephone encounter Kiran Vega [facility] Start: 11-27-2022 End: 11-27-2022 ambulatory Yolanda Chavez Other [email or web address] Other Start: 11-27-2022 Telephone encounter Yolanda Kathy [facility] Start: 11-23-2022 (Televisit) Televisit Yolanda Chavez [facility] Start: 11-23-2022 End: 11-23-2022 ambulatory Yolanda Chavez Other [email or web address] Other Start: 11-22-2022 End: 11-22-2022 ambulatory Yolanda Chavez Other [email or web address] Other Start: 11-22-2022 Telephone encounter Yolanda Chavez [facility] Start: 11-20-2022 End: 11-20-2022 Departed Referred MD Yolanda Chavez Work Phone: [facility] Work Phone: Start: 11-20-2022 End: 11-20-2022 Patient encounter procedure MD Yolanda Chavez Work Phone: [facility] Work Phone: Start: 11-20-2022 End: 11-20-2022 ambulatory MD Yolanda Chavez Work Phone: [facility] Work Phone: Start: 11-20-2022 Telephone encounter Yolanda Chavez [facility] Start: 11-15-2022 End: 11-15-2022 ambulatory Yolanda Chavez Other [email or web address] Other Start: 11-15-2022 Telephone encounter Yolanda Chavez [facility] Start: 11-09-2022 End: 11-09-2022 ambulatory Kiran Amaya Facility:[facility] Start: 11-09-2022 End: 11-09-2022 ambulatory MD Yolanda Chavez Work Phone: [facility] Work Phone: Start: 11-09-2022 End: 11-09-2022 Patient encounter procedure MD Yolanda Chavez Work Phone: [facility] [place] Work Phone: Start: 11-02-2022 End: 11-02-2022 ambulatory Yolanda Chavez Other [email or web address] Other Start: 11-02-2022 Telephone encounter Yolanda Chavez [facility] Start: 10-24-2022 End: 10-24-2022 ambulatory Yolanda Chavez Other [email or web address] Other Start: 10-24-2022 Office outpatient vi sit 15 minutes Yolanda Chavez [facility] Start: 10-19-2022 End: 10-19-2022 ambulatory Shira Marisa Other [email or web address] Other Start: 10-19-2022 Telephone encounter Shira [facility] Start: 10-18-2022 End: 10-18-2022 ambulatory Yolanda Chavez Other [email or web address] Other Start: 10-18-2022 Telephone encounter Yolanda Chavez [facility] Start: 10-17-2022 End: 10-17-2022 ambulatory Yolanda Chavez Other [email or web address] Other Start: 10-17-2022 Telephone encounter Yolanda Chavez [facility] Start: 10-05-2022 End: 10-05-2022 ambulatory Kiran Amaya Other [email or web address] Other Start: 10-05-2022 Telephone encounter Kiran arnett [facility] Gastroenterology Start: 10-04-2022 End: 10-04-2022 ambulatory Yolanda Chavez Other [email or web address] Other Start: 10-04-2022 Telephone encounter Yolanda Chavez [facility] Start: 09-07-2022 End: 09-07-2022 ambulatory Kiran Amaya Other [email or web address] Other Start: 09-07-2022 Office outpatient vi sit 25 minutes Kiran Amaya [facility] Gastroenterology Start: 09-06-2022 End: 09-06-2022 ambulatory Yolanda Chavez Other [email or web address] Other Start: 09-06-2022 Telephone encounter Yolanda Chavez [facility] Start: 08-29-2022 End: 08-29-2022 ambulatory Yolanda Chavez Other [email or web address] Other Start: 08-29-2022 Office outpatient vi sit 15 minutes Yolanda Chavez [facility] Start: 08-25-2022 End: 08-25-2022 ambulatory Sandra Flores Other [email or web address] Other Start: 08-25-2022 Office outpatient vi sit 15 minutes Sandra Flores [facility] [place] Start: 08-14-2022 End: 08-14-2022 ambulatory Phani Pruitt Other [email or web address] Other Start: 08-14-2022 Telephone encounter [address]ani Pruitt [facility] Start: 08-10-2022 End: 08-10-2022 ambulatory Phani Pruitt Other [email or web address] Other Start: 08-10-2022 Tele[address] Pru[address] [facility] Start: 08-08-2022 End: 08-08-2022 ambulatory Yolanda Chavez Other [email or web address] Other Start: 08-08-2022 Telephone encounter Yolanda Chavez [facility] Start: 08-03-2022 End: 08-03-2022 ambulatory Yolanda Chavez Other [email or web address] Other Start: 08-03-2022 Office outpatient vi sit 15 minutes Yolanda Chavez [facility] Start: 07-27-2022 End: 07-28-[address] DOCTOR HYATT Facility:[facility] Start: 07-21-2022 End: 07-21-2022 ambulatory Phani Pruitt Other [email or web address] Other Start: 07-21-2022 Telephone encounter [address] Pruitt [facility] Start: 07-20-2022 End: 07-21-[address] PHANI PRUITT Facility:[facility] Start: 07-12-2022 End: 07-12-2022 ambulatory Phani Pruitt Other [email or web address] Other Start: 07-12-2022 Telephone encounter Phani GARCIA [facility] Start: 06-27-2022 End: 06-27-2022 ambulatory Vanessa Sanford Other [email or web address] Other Start: 06-27-2022 Telephone encounter Vanessa Sanford [facility] Start: 06-22-2022 End: 06-22-2022 ambulatory Phani Pruitt Other [email or web address] Other Start: 06-22-2022 Telephone encounter Phani GARCIA [facility] Start: 06-20-2022 End: 06-20-2022 ambulatory Vanessa Sanford Facility:[facility] Start: 06-20-2022 End: 06-20-2022 Departed Referred SHEILA Sanford Work Phone: [facility] [place] Work Phone: Start: 06-20-2022 End: 06-20-2022 ambulatory SHEILA Sanford Work Phone: [facility] Work Phone: Start: 06-20-2022 Office outpatient vi sit 15 minutes Vanessa Sanford [facility] Start: 06-16-2022 End: 06-17-[address] PHANI PRUITT [facility] Other Start: 06-16-2022 Office outpatient vi sit 25 minutes Phani Pruitt [facility] Start: 06-06-2022 End: 06-07-2022 ambulatory AINSLEY WATERMAN . Facility: Start: 05-29-2022 End: 05-30-[address] PHANI PRUITT [facility] Other Start: 05-29-2022 Office outpatient vi sit 25 minutes Phani Pruitt [facility] Start: 05-29-2022 Telephone encounter Phani GARCIA [facility] Start: 05-12-2022 End: 05-12-2022 ambulatory Phani Pruitt Other [email or web address] Other Start: 05-12-2022 Telephone encounter Phani [facility] Start: 05-09-2022 End: 05-09-2022 ambulatory Phani Pruitt Other [email or web address] Other Start: 05-09-2022 Office outpatient vi sit 15 minutes Phani [facility] Start: 05-09-2022 Telephone encounter Phani GARCIA [facility] Start: 04-28-2022 End: 04-28-2022 ambulatory Phani Pruitt Other [email or web address] Other Start: 04-28-2022 Telephone encounter [facility] Start: 04-24-2022 End: 04-24-2022 ambulatory Phani Pruitt Other [email or web address] Other Start: 04-24-2022 Telephone encounter [facility] Start: 04-20-2022 End: 04-20-2022 ambulatory Phani Pruitt Other [email or web address] Other Start: 04-20-2022 Telephone encounter [facility] Start: 04-17-2022 End: 04-17-[address] ABDELRAHMAN WEINSTEIN . Facility:[facility] Start: 04-16-2022 Encounter for other preprocedural examination DR ABDELRAHMAN WEINSTEIN . [facility] Start: 04-14-2022 End: 04-15-[address] ABDELRAHMAN WEINSTEIN . Facility:[facility] Start: 04-14-2022 End: 04-15-2022 Encounter for other preprocedural examination DR ABDELRAHMAN WEINSTEIN . Facility:[facility] Start: 04-13-2022 End: 04-13-2022 ambulatory Phani Pruitt Other [email or web address] Other Start: 04-13-2022 Telephone encounter Phani [facility] Start: 04-10-2022 End: 04-10-[address] ABDELRAHMAN WEINSTEIN . Facility:[facility] Start: 03-25-2022 End: 03-25-2022 ambulatory Kiran Amaya Other [email or web address] Other Start: 03-25-2022 Telephone encounter Kiran Vega ck [facility] Start: 03-15-2022 End: 03-15-2022 ambulatory Phani Pruitt Other [email or web address] Other Start: 03-15-2022 Telephone encounter Phani Pruitt [facility] Start: 03-14-2022 End: 03-14-2022 ambulatory Kiran Amaya Other [email or web address] Other Start: 03-14-2022 Office outpatient vi sit 15 minutes Kiran Amaya [facility] Start: 03-10-2022 End: 03-10-2022 ambulatory Phani Pruitt Other [email or web address] Other Start: 03-10-2022 Telephone encounter Phani Pruitt [facility] Start: 03-01-2022 Encounter for other preprocedural examination Yolanda Chavez Other [email or web address] Other Start: 03-01-2022 Pre-procedure evaluation check Yolanda Chavez Other [email or web address] Other Start: 02-23-2022 End: 02-24-[address] KIEL DÍAZ . Facility:[facility] Start: 01-20-2022 End: 01-20-2022 Admission to same day surgery center DO Phani Ball Work Phone: [facility] Start: 01-20-2022 End: 01-20-2022 ambulatory DO Phani Ball Work Phone: [facility] Work Phone: Start: 01-06-2022 End: 01-07-[address] WAI SEVERINO Facility:[facility] Start: 01-02-2022 End: 01-02-2022 ambulatory Kiran Amaya Other [email or web address] Other Start: 01-02-2022 Telephone encounter Kiran Silvia arnett [facility] Start: 12-09-2021 End: 12-09-2021 ambulatory Kiran Amaya Other [email or web address] Other Start: 12-09-2021 Office outpatient vi sit 25 minutes Kiran Amaya [facility] Start: 11-28-2021 End: 11-29-[address] PHANI PRUITT Facility:[facility] Start: 11-10-2021 End: 11-10-2021 ambulatory Kiran Amaya Other [email or web address] Other Start: 11-10-2021 Telephone encounter Kiran arnett [facility] Start: 10-20-2021 End: 10-20-[address] PHANI PRUITT Facility:[facility] Start: 10-16-2021 End: 10-16-[address] PHANI PRUITT Facility:[facility] Start: 10-05-2021 End: 10-05-2021 ambulatory AINSLEY WATERMAN . Facility:[facility] Start: 09-30-2021 ambulatory SANTA [facility] ty:[facility] Start: 09-29-2021 End: 09-29-2021 ambulatory Janna Pina Other [email or web address] Other Start: 09-29-2021 Telephone encounter Janna Pina [facility] Gastroenterology Start: 09-20-2021 Adult health examination Yolanda Chavez Other [email or web address] Other Start: 09-20-2021 Encounter for genera l adult medical examination without abnormal findings Yolanda Chavez Other [email or web address] Other Start: 09-05-2021 End: 09-05-2021 ambulatory Ambrose Torres Other [email or web address] Other Start: 09-05-2021 Office outpatient vi sit 15 minutes Ambrose Torres [facility] Start: 08-31-2021 End: 09-01-[address] PHANI PRUITT Facility:[facility]1 Start: 07-08-2021 End: 07-08-2021 ambulatory Janna Pina Other [employer] Other Start: 07-08-2021 Telephone encounter Janna Pina [facility] Start: 06-13-2021 End: 06-13-2021 ambulatory Janna Pina Other [email or web address] Other Start: 06-13-2021 Office outpatient vi sit 25 minutes Janna Pina [facility] Start: 04-13-2021 End: 04-13-2021 ambulatory Shira Cunningham Other [employer] Other Start: 04-13-2021 Office outpatient vi sit 15 minutes Shira Cunningham [facility] Start: 02-28-2021 End: 02-28-2021 ambulatory Janna Samuelrenzo Other [email or web address] Other Start: 02-28-2021 Telephone encounter Janna Samuelrenzo [facility] Start: 01-31-2021 End: 01-31-2021 ambulatory Janna Yovani Other [email or web address] Other Start: 01-31-2021 Telephone encounter Janna Pina [facility] Start: 01-20-2021 End: 01-20-2021 ambulatory Janna Samuelrenzo Other [email or web address] Other Start: 01-20-2021 Office outpatient vi sit 25 minutes Janna Pina [facility] Start: 01-20-2021 Telephone encounter Janna Pina [facility] Start: 12-07-2020 Office outpatient vi sit 25 minutes Janna Pina [facility] Procedures Date Procedure Procedure Detail Performing Clinician Start: 04-19-2023 Study Interpretation of outside study Non-Uh Radiology Contrast Provider Start: 02-27-2023 X-ray of lumbar spine, four views MD Anny Chavez Work Phone: Start: 01-11-2023 Urine culture MD Yolanda Chavez Work Phone: Start: 11-20-2022 Urine culture MD Yolanda Chavez Work Phone: Start: 11-09-2022 Magnetic resonance cholangiopancreatography MD Yolanda Chavez Work Phone: Start: 01-20-2022 End: 01-20-2022 Colonoscopy DO Phani Pruitt Work Phone: Start: 09-19-2017 Screening for malignant neoplasm of colon Yolanda Chavez Other Start: 09-19-2017 Screening for osteoporosis Yolanda Chavez Other Start: 09-19-2017 Screening mammography Yolanda Chavez Other Depression screening Yolanda Chavez Other Screening for malign ant neoplasm of breast Yolanda Chavez Other Plan of Treatment Date Care Activity Detail Author Start: 01-21-2032 Screening for malignant neoplasm of colon [facility] Start: 01-11-2023 Bacteria identified in Urine by Culture [facility] Start: 11-10-2022 COVID-19 Vaccine ( season) COVID-19 Vaccine ( season) [facility] Start: 01-20-2022 [facility] Start: 03-28-2021 COVID-19 Vaccine (4 - Pfizer series) COVID-19 Vaccine (4 - Pfizer series) [facility] Start: 09-18-2020 Pneumococcal Vaccine: 65+ Years (3 - PPSV23 or PCV20) Pneumococcal Vaccine: 65+ Years (3 - PPSV23 or PCV20) [facility] Start: 06-03-2020 Pneumococcal Vaccine: 65+ Years (2 - PCV) Pneumococcal Vaccine: 65+ Years (2 - PCV) [facility] Start: 12-13-2016 Zoster Vaccines (2 of 3) Zoster Vaccines (2 of 3) [facility] Start: 12-08-2016 DTaP/Tdap/Td Vaccines (1 - Tdap) DTaP/Tdap/Td Vaccines (1 - Tdap) [facility] Start: 2015 Hepatitis B Vaccines (1 of 3 - Risk 3-dose series) Hepatitis B Vaccines (1 of 3 - Risk 3-dose series) [facility] Start: 1995 Screening for malignant neoplasm of breast Mammogram [facility] Start: 06-03-1977 DTaP/Tdap/Td Vaccines (1 - Tdap) DTaP/Tdap/Td Vaccines (1 - Tdap) [facility] Start: 06-03-1974 Hepatitis A Vaccines (1 of 2 - Risk 2-dose series) Hepatitis A Vaccines (1 of 2 - Risk 2-dose series) [facility] Start: 06-03-1973 Diabetes mellitus screening Diabetes Screening [facility] Start: 06-03-1973 Hepatitis C screening Hepatitis C Screening [facility] Start: 1955 Lipid panel Lipid Panel [facility] Start: 1955 Medicare Annual Wellness Visit Medicare Annual Wellness Visit (AWV) [facility] Start: 1955 Screening for malignant neoplasm of colon [facility] Start: 1955 Screening for osteoporosis Bone Density Scan [facility] Start: 1955 Yearly Adult Physical Yearly Adult Physical [facility] Atopobium vaginae DN A [Presence] in Vaginal fluid by JOSH with probe detection [facility] Bacteria identified in Urine by Culture [facility] Bacterial vaginosis associated bacterium 2 DNA [Presence] in Vaginal fluid by OJSH with probe detection [facility] Megasphaera sp type 1 DNA [Presence] in Vaginal fluid by JOSH with probe detection [facility] Patient Education Colitis Hemorr hoids (DC) Ale[facility] Work Phone: Study Interpretation of outside study MR transfer of outside films Imaging Routine 04/19/2023 11:05 AM EST [facility] Service Area Work Phone: [facility] Immunizations Immunization Date Immunization Notes Care Provider Fa radha 10-24-2022 Flu vaccine, quadrivalent, high-dose, preservative free, age 65y+ (FLUZONE) Libby Muñoz PA-C Work Phone: [facility] Work Phone: 12-24-2021 influenza, high dose seasonal, preservative-free Libby Gonsalesw PA-C Work Phone: [facility] Work Phone: 11-28-2021 influenza virus vaccine, split virus (incl. purified surface antigen) Yolanda Chavez Other [email or web address] Other 11-28-2021 Influenza, Seasonal, Quadrivalent, Adjuvanted Libby Gonsalesw PA-C Work Phone: [facility] Work Phone: 01-31-2021 COVID-19 mRNA, Comirnaty (Pfizer) DO [employer] Work Phone: [facility] 12-15-2020 influenza virus vaccine, split virus (incl. purified surface antigen) Yolanda Chavez Other [email or web address] Other 12-15-2020 Seasonal trivalent influenza vaccine, adjuvanted, preservative free Libby Muñoz PA-C Work Phone: [facility] Work Phone: 07-30-2020 COVID-19 mRNA, Comirnaty (Pfizer) DO [employer] Work Phone: [facility] 07-09-2020 COVID-19 mRNA, Comirnaty (Pfizer) DO [employer] Work Phone: [facility] 12-26-2019 influenza virus vaccine, split virus (incl. purified surface antigen) Yolanda Chavez Other [email or web address] Other 09-19-2019 pneumococcal conjuga te vaccine, 13 valent Yolanda Chavez Other [email or web address] Other 01-29-2019 Influenza, injectabl e, Madin Kaylah Canine Kidney, preservative free, quadrivalent Libby Muñoz PA-C Work Phone: [facility] Work Phone: 01-07-2018 influenza virus vaccine, split virus (incl. purified surface antigen) Yolanda Chavez Other [email or web address] Other 01-07-2018 Influenza, injectabl e, Madin Kaylah Canine Kidney, quadrivalent with preservative Libby Muñoz PA-C Work Phone: [facility] Work Phone: 12-07-2016 influenza, seasonal, injectable Libby Muñoz PA-C Work Phone: [facility] Work Phone: 12-07-2016 tetanus and diphther ia toxoids, adsorbed, preservative free, for adult use (5 Lf of tetanus toxoid and 2 Lf of diphtheria toxoid) Yolanda Chavez Other [email or web address] Other 10-18-2016 zoster vaccine, live Libby Muñoz PA-C Work Phone: [facility] Work Phone: 04-24-2016 zoster vaccine, live Yolanda Chavez Other [facility] 12-10-2013 influenza, injectabl e, madin kaylah canine kidney, preservative free Libby Muñoz PA-C Work Phone: [facility] Work Phone: 01-18-2013 pneumococcal polysaccharide vaccine, 23 valent Yolanda Chavez Other [email or web address] Other 10-25-2011 pneumococcal polysaccharide vaccine, 23 valent Libby Muñoz PA-C Work Phone: [facility] Work Phone: 01-10-2005 pneumococcal polysaccharide vaccine, 23 valent Janna Pina Other [email or web address] Other 02-05-2001 pneumococcal polysaccharide vaccine, 23 valent Libby Muñoz PA-C Work Phone: [facility] Work Phone: Payers Date Payer Category Payer Unknown SELF FUNDED SELF FUNDED [id number] 2022-Present [address] [place] [address] [id number] 2022 Self-pay [id number] 2022 Medicare HUMANA MEDICARE HUMANA GOLD CHOICE [id number] 2022-Present [address] [address] [place] [address] [id number] 1959 Medicare [id number] 2.16.840.1.181819.19 1955 Unknown [id number] 2.16.840.1.325959.3.579.2.593 1955 Unknown [id number] 2.16.840.1.509451.3.579.2.593 1955 Unknown [id number] 2.16.840.1.250922.3.579.2.593 1955 Unknown [id number] 2.16.840.1.085181.3.579.2.593 1955 Unknown [id number] 2.16.840.1.528984.3.579.2.593 1955 Unknown [id number] 2.16.840.1.261918.3.579.2.593 1955 Unknown [id number] 2.16.840.1.243585.3.579.2.593 1955 Unknown [id number] 2.16.840.1.063003.3.579.2.593 1955 Unknown [id number] 2.16.840.1.363075.3.579.2.593 1955 Unknown [id number] 2.16.840.1.604031.3.579.2.593 1955 Unknown [id number] 2.16.840.1.098792.3.579.2.593 1955 Unknown [id number] 2.16.840.1.324351.3.579.2.593 1955 Unknown [id number] 2.16.840.1.545990.3.579.2.593 1955 Unknown [id number] 2.16.840.1.675656.3.579.2.593 1955 Unknown [id number] 2.16.840.1.229785.3.579.2.593 1955 Unknown [id number] 2.16.840.1.262058.3.579.2.593 1955 Unknown [id number] 2.16.840.1.324097.3.579.2.727 1955 Unknown [id number] 2.16.840.1.960905.3.579.2.125 9 1955 Unknown [id number] 2.16.840.1.103256.3.579.2.125 9 1955 Unknown [id number] 2.16.840.1.770605.3.579.2.125 9 Medicare Medicare [id number] Medicare [id number] 2.16.840.1.688119.19 Unknown [id number] 2.16.840.1.226098.3.579.2.531 Unknown [id number] 2.16.840.1.437568.3.579.2.531 Unknown [id number] 2.16.840.1.015178.3.579.2.531 Unknown [id number] 2.16.840.1.322287.3.579.2.531 Unknown [id number] 2.16.840.1.611436.3.579.2.531 Social History Date Type Detail Facility Unknown if ever smoked [email or web address] Other Sex Assigned At [facility] Start: 01-20-2022 End: 02-01-2022 Tobacco smoking status NHIS Ex-smoker (finding) [facility] Start: 1955 Sex Assigned At Female [facility] Tobacco smoking stat [facility] Tobacco smoking consumption unknown [facility] Work Phone: Start: 12-17-2022 Gender identity Identifies as female gender (finding) [facility] Work Phone: Start: 12-17-2022 Sexual orientation Heterosexual (finding) [facility] Work Phone: Tobacco smoking status No Smokin g Status Entered [facility] Medical Equipment Procedure Code Equipment Code Equipment Origin al Text Equipment Identifier Dates Kyphoplasty Orthopaedic ceme nt, non-medicated [id number] [facility] Start: 06-24-2019 Goals Date Patient Goal Desired Activity /State Clinical Notes 12-07-2020 to 04-11-2023 Note Date & Type Note Facility 04-11-2023 Evaluation note Encounter Date Diagnosis Assessment Notes Mar, Compression fracture of T11 vertebra with delayed healing, subsequent encounter (ICD-10 - S22.080G) I reviewed the MRI of the lumbar spine showing compression fractures at T11 and T12 with bone marrow edema, more so in the T11. It also shows progression of the fractures and more kyphosis due to the compression fractures. The patient is very symptomatic at this level. I have ordered a TLSO for ADL's, posture, maintaining spinal alignment while healing for 12 weeks. The brace is flexible, provides trunk support thoracic regional rigid posterior panel and soft anterior apron, extends from the sacral coccygeal junction and terminates just inferior to the scapular spine restriction gross trunk motion in the sagittal plane produces intracavitary pressure to reduce loads on the intervertebral discs, include straps and closures, prefabricated including fitting and adjustments. Sent a referral for surgical evaluation for kyphoplasty at [facility]. Dr Chavez is out of the office. [email or web address] Other 12-28-2023 Evaluation note* Encounter Date Diagnosis Assessment Notes Treatment Notes Treatment Clinical Notes Feb, Age-related osteoporosis with current pathological fracture with delayed healing, subsequent encounter (ICD-10 - M80.00XG) Medication profile and possible SE reviewed with patient today. Take as prescribed. Take 30 minutes prior to food/med/drink in the AM, take with full glass of water, and sit upright for 30 minutes after taking. Did recommend that she start taking 600 IU of Vitamin D daily, Calcium 1200 mg daily, and start weight bearing exercises as tolerated [email or web address] Other 12-19-2023 Evaluation note* Encounter Date Diagnosis [...] MRI of the lumbar spine at the [facility]. Discussion of new versus old in which [...] T12 vertebra, initial encounter (ICD-10 - S22.080A) [email or web address] Other 11-20-2023 Evaluation note* Encounter Date Diagnosis Assessment Notes Treatment Notes Treatment Clinical Notes Jan, Pancreatic cyst (ICD-10 - K86.2) [email or web address] Other 11-17-2023 Evaluation note* Encounter Date Diagnosis Assessment Notes Treatment Notes Treatment Clinical Notes Jan, Pancreatic cyst (ICD-10 - K86.2) [email or web address] Other 11-06-2023 Evaluation note* Encounter Date Diagnosis [...] sooner. Otherwise on his schedule on 02/01 [email or web address] Other 10-17-2023 Evaluation note* Encounter Date Diagnosis [...] pain is adequately controlled with present prescription. [email or web address] Other 10-16-2023 Evaluation note* Encounter Date Diagnosis Assessment Notes Treatment Notes Treatment Clinical Notes Dec, Moderate episode of recurrent major depressive disorder (ICD-10 - F33.1) [email or web address] Other 10-09-2023 History of Present illness Narrative* Libby Muñoz PA-C - 12/18/2022 1:00 PM EDT Subjective Ms. Gutierres is a 67-year-old female who is referred by Dr. Amaya for a subcentimeter pancreatic cyst. She states she had imaging approximately 2 years ago that showed a pancreatic mass. She recently saw her primary care doctor who advised repeat imaging through GI. She saw Dr. Amaya who ordereda non-contrast MRCP on 11/09/22 that [...] is in no acute distress. Assessment/Plan Ms. Gutierres is a 67-year-old female who is referred by Dr. Amaya for a subcentimeter pancreatic cyst. PLAN: She [...] but prefers to have this done in [place] with Dr. Amaya as she is unable to drive to a facility. Libby Muñoz PA-C [facility] Work Phone: [phone] Evaluation note* Encounter Date Diagnosis Assessment Notes [...] and change to a portable oxygen concentrator. [email or web address] Other 09-14-2023 Evaluation note* Encounter Date Diagnosis [...] POC setting at 2 via nasal cannula. [email or web address] Other 09-11-2023 Evaluation note* Encounter Date Diagnosis Assessment Notes Treatment Notes Treatment Clinical Notes Nov, Dysuria (ICD-10 - R30.0) [email or web address] Other 08-24-2023 Evaluation note* Encounter Date Diagnosis Assessment Notes Treatment Notes Treatment Clinical Notes Oct, Fibromyalgia (ICD-10 - M79.7) [email or web address] Other 08-15-2023 Evaluation note* Encounter Date Diagnosis [...] Reviewed OARRS report. Continue meds and treatment. [email or web address] Other 07-27-2023 Evaluation note* Encounter Date Diagnosis Assessment Notes Treatment Notes Treatment Clinical Notes Sep, Diverticular disease (ICD-10 - K57.90) [email or web address] Other 07-26-2023 Evaluation note* Encounter Date Diagnosis Assessment Notes Treatment Notes Treatment Clinical Notes Sep, Lumbar spondylosis (ICD-10 - M47.816) [email or web address] Other 06-29-2023 Evaluation note* Encounter Date Diagnosis Assessment Notes Treatment Notes Treatment Clinical Notes Aug, Diverticular disease (ICD-10 - K57.90) Patient reports constipation and she will try linzess 290 mg prescription sent to pharmacy RTO 3 months Aug, GERD (gastroesophageal reflux disease) (ICD-10 - K21.9) Aug, Pancreas cyst (ICD-10 - K86.2) Patient is to have an MRCP dont at [facility] ordered today [email or web address] Other 06-28-2023 Evaluation note* Encounter Date Diagnosis Assessment Notes Treatment Notes Treatment Clinical Notes Aug, Lumbar spondylosis (ICD-10 - M47.816) [email or web address] Other 06-20-2023 Evaluation note* Encounter Date Diagnosis [...] into present EMR for 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 [email or web address] Other 06-16-2023 Evaluation note* Encounter Date Diagnosis Assessment Notes Treatment Notes Treatment Clinical Notes Aug, COPD exacerbation (ICD-10 - J44.1) Discussed with patient exam and history is consistent with COPD exacerbation. Rapid COVID is negative in office. Will cover with azithromycin and prednisone burst. Continue maintenance and rescue inhaler as needed. May use Mucinex DM [id number]. Patient has follow-up with PCP next week. Advised to follow-up sooner if any rapidly increasing shortness of breath, wheezing, signs of respiratory distress. Patient verbalized understanding of treatment plan. Patient reports history of frequent yeast infections with antibiotic use. Requesting Diflucan. Dose sent. Advised should only take it develop symptoms. Patient verbalized understanding. Aug, Congestion of nasal sinus (ICD-10 - R09.81) [email or web address] Other 06-01-2023 Evaluation note* Encounter Date Diagnosis Assessment Notes Treatment Notes Treatment Clinical Notes Aug, Lumbar spondylosis (ICD-10 - M47.816) [email or web address] Other 05-25-2023 Evaluation note* Encounter Date Diagnosis Assessment Notes Treatment Notes Treatment Clinical Notes July, Chronic obstructive pulmonary disease with (acute) lower respiratory infection (ICD-10 - J44.0) Discussed prednisone could help her hip pain and her wheezing for a short term treatment July, Insomnia, idiopathic (ICD-10 - F51.01) d/c remeron start trazodone. f/u in 1 month [email or web address] Other 05-03-2023 Evaluation note* Encounter Date Diagnosis Assessment Notes Treatment Notes Treatment Clinical Notes July, Lumbar spondylosis (ICD-10 - M47.816) [email or web address] Other 04-11-2023 Evaluation note* Encounter Date Diagnosis [...] send in medication if needed. Follow-up with EMULSION OPERATOR if no improvement of symptoms. Immediate evaluation in ER for signs/symptoms as discussed. Patient verbalizes understanding and is agreeable with treatment plan. [email or web address] Other 04-07-2023 Evaluation note* Encounter Date Diagnosis [...] and ulcerations. May be worsened by Lyrica [email or web address] Other 03-20-2023 Evaluation note* Encounter Date Diagnosis [...] - R53.83) Healthy diet and keep active [email or web address] Other 03-03-2023 Evaluation note* Encounter Date Diagnosis Assessment Notes Treatment Notes Treatment Clinical Notes May, Lumbar spondylosis (ICD-10 - M47.816) [email or web address] Other 03-03-2023 Evaluation note* Encounter Date Diagnosis Assessment Notes Treatment Notes Treatment Clinical Notes May, Acute bronchitis due to other specified organisms (ICD-10 - J20.8) [email or web address] Other 02-28-2023 Evaluation note* Encounter Date Diagnosis [...] hours as needed for cough and dyspnea [email or web address] Other 02-28-2023 Evaluation note* Encounter Date Diagnosis Assessment Notes Treatment Notes Treatment Clinical Notes Apr, Chronic obstructive pulmonary disease with (acute) exacerbation (ICD-10 - J44.1) [email or web address] Other 02-02-2023 Evaluation note* Encounter Date Diagnosis Assessment Notes Treatment Notes Treatment Clinical Notes Apr, Lumbar spondylosis (ICD-10 - M47.816) [email or web address] Other 01-04-2023 Evaluation note* Encounter Date Diagnosis Assessment Notes Treatment Notes Treatment Clinical Notes Mar, Lumbar spondylosis (ICD-10 - M47.816) [email or web address] Other 01-03-2023 Evaluation note* Encounter Date Diagnosis Assessment Notes Treatment Notes Treatment Clinical Notes Mar, Diverticular disease (ICD-10 - K57.90) continue dicyclomine as needed. Mar, Alternating constipation and diarrhea (ICD-10 - R19.8) start metamucil gummies every day. Mar, GERD (gastroesophageal reflux disease) (ICD-10 - K21.9) patient to continue pantoprazole [email or web address] Encounter Date Diagnosis Assessment Notes Treatment Notes Treatment Clinical Notes Nov, Lower abdominal pain (ICD-10 - R10.30) PATIENT STATES THAT SHE DOES HAVE BURNING. Nov, Constipation (ICD-10 - K59.00) PATIENT STATES MOVING BOWELS EVERYDAY PATIENT DID REDUCE THE DICYCLOMINE TO NEEDED WHN CONSTIPATED THIS MADE IT WORSE PATIENT IS ADVISED WE WILL START MOVANTIK [email or web address] Other 09-01-2022 Evaluation note* Encounter Date Diagnosis Assessment Notes Treatment Notes Treatment Clinical Notes Nov, GERD (gastroesophageal reflux disease) (ICD-10 - K21.9) [email or web address] Other 08-11-2022 NotePROCEDURE: XR HIP RT 2 3V W PELVIS COMPARISON: None. HISTORY: Injury of right hip region FINDINGS: BONES:No acute fracture or dislocation. Minimal degenerative osteoarthropathy of the hips SOFT TISSUES:Negative. No visible soft tissue swelling. EFFUSION:None visible. OTHER: Negative. IMPRESSION: No acute abnormality Electronically authenticated by: JANNA LAWTON Date: 2021-10-20 12:03[facility]06-27-2022 Evaluation note* Encounter Date Diagnosis Assessment Notes [...] although I think that is less likely. [email or web address] Other 04-04-2022 Evaluation note* Encounter Date Diagnosis Assessment Notes Treatment Notes Treatment Clinical Notes Jun, LUQ abdominal pain (ICD-10 - R10.12) CONTINUE DICYCLOMINE 20 MG TID RTO 6-8 WEEKS Jun, Irritable bowel syndrome with diarrhea (ICD-10 - K58.0) Jun, Bloating (ICD-10 - R14.0) Jun, GERD (gastroesophageal reflux disease) (ICD-10 - K21.9) STOP OMEPRAZOLE [email or web address] Other 02-02-2022 Evaluation note* Encounter Date Diagnosis [...] Patient care instructions given in writting by [facility] document. [email or web address] Other 11-11-2021 Evaluation note* Encounter Date Diagnosis Assessment Notes Treatment Notes Treatment Clinical Notes Jan, Irritable bowel syndrome with diarrhea (ICD-10 - K58.0) OBTAIN COLONOSCOPY FROM [facility] IN 06/2019Jan, Lower abdominal pain (ICD-10 - R10.30) STOP DICYCLOMINE PT TO REPORT PROGRESS Jan, Bloating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
== END 2023-04-30 11:50 | disposition home or self-care (01) ==
LOC: EC 11:50
PROVIDERS: PCP Family Medicine; Visit Provider Orthopaedic Surgery
DX: S82.141D Displaced bicondylar fracture of right tibia, subsequent encounter for closed fracture with routine healing (principal)
CPT/HCPCS: 73560

== ENCOUNTER 2023-06-11 11:26 | Outpatient (OUT) | payer MEDICARE, SELFPAY ==
--- NOTE | 2023-06-11 | XR_ITS ---
The [address] [address] Patient Name: TYRESE GUTIERRES MRN: [id number] date: 1955 Sex: F Assigned Patient Location: Current Patient Location: Accession/Order Number: [id number] Exam Date: 06/11/2023 11:28 Report Date: 06/12/2023 08:24 At the request of: CELIA BOATENG Procedure: XR knee RT 2V PROCEDURE: XR knee RT 2V HISTORY: RIGHT KNEE PAIN ; follow-up tibial plateau fracture COMPARISON: XR knee right 04/30/2023 FINDINGS: BONES:Stable changes from prior impaction fracture involving medial aspect of lateral tibial plateau. No acute fracture or dislocation. Stable mild joint space narrowing and mild lateral subluxation of the tibial plateau in relation to the femoral condyles. SOFT TISSUES:No visible soft tissue swelling. EFFUSION:None visible. OTHER: Negative. XR/XR knee RT 2V IMPRESSION: 1. No appreciable acute abnormality. 2. Stable degenerative changes and prior posttraumatic changes. Electronically authenticated by: CELIA CORMIER Date: 06/12/2023 08:24
== END 2023-06-11 11:27 | disposition home or self-care (01) ==
LOC: EC 11:26
PROVIDERS: PCP Family Medicine; Visit Provider Orthopaedic Surgery
DX: S82.141D Displaced bicondylar fracture of right tibia, subsequent encounter for closed fracture with routine healing (principal)
CPT/HCPCS: 73560

== ENCOUNTER 2023-12-12 13:32 | Emergency (ER) | payer MEDICARE, SELFPAY ==
[2023-12-12 13:39] VITALS: BP 153/81; PULSE 90; TEMP 37.3; O2SAT 95; BMI 18.3
--- OUTSIDE RECORDS SUMMARY | 2023-12-12 13:45 | XMS_ITS | CCD ---
Author Organization [facility] Care Team Providers Care Sole Stainer Name Role Phone Janna Pina Unavailable Shira Cunningham Unavailable Ambrose Torres Unavailable Kiran Amaya Unavailable DO Phani Pruitt Primary Care Provider [phone] MD Kiran Amaya Attending Provider Phani Pruitt Unavailable SHEILA Sanford Attending Provider Vanessa Sanford Unavailable OANH .SANTA Admitting Unavailable EDMOND, DR COHEN Primary Care Unavailable EDMOND, DR COHEN Consulting Unavailable OANH ., SANTA Attending Unavailable COLUMBA ., AINSLEY Attending Unavailable COLUMBA ., AINSLEY Admitting Unavailable EDMOND, DR COHEN Primary Care Unavailable STEPHANIE DODD Consulting Unavailable COLUMBA ., AINSLEY Consulting Unavailable BRE ., DR KIEL De Jesus Attending Unavailable DÍAZ ., DR KIEL De Jesus Admitting Unavailable EDMOND, DR COHEN Primary Care Unavailable REGINAY ., DR WALSH Consulting Unavailable DÍAZ ., DR KIEL De Jesus Consulting Unavailable [...] Care Unavailable EDMOND, DR COHEN Admitting Unavailable EDMOND, DR COHEN Primary Care [...] Primary Care Unavailable CHAIM MEZA Consulting Unavailable Nettie Iqbal Unavailable Sandra Flores Unavailable MD Kiran Amaya Attending Provider [phone] MD Nettie Iqbal Primary Care Provider MD Nettie Iqbal Attending Provider Unavailable Primary Care Provider UnavailPHANI [place] Primary Care Physician [place] RAMOS Attending Unavailable NO FAMILY, PHYSICIAN Primary Care Provider Unava ilROBIN Mae Referring Unavailable ROBIN FLANNERY Referring Unavailable ROBIN FLANNERY Attending Unavailable MD Nettie Iqbal Attending Provider [phone] MD Nettie Iqbal Primary Care Provider ANUSHKA Kim Attending Provider Ana Kim Unavailable GABBY LO Referring Unavailable NETTIE IQBAL Primary Care Unavailable Nettie Iqbal MD Primary Care Provider GABBY LO Referring Unavailable NETTIE IQBAL Primary Care Unavailable MD Ntetie Iqbal Attending Provider MD Horacio Erwin Attending Provider MD Nettie Iqbal Primary Care Provider Ana Kim Admitting Unavailable Ana Kim Attending Unavailable Nettie Iqbal Primary Care Unavailable Horacio Erwin Attending Unavailable Horacio Erwin Admitting Unavailable Nettie Iqbal Primary Care Unavailable Kiran Amaya Admitting UnavailKiran Slaughter Attending Unavailabl e Nettie Iqbal Primary Care Unavailable Nettie Iqbal Admitting Unavailable Nettie Iqbal Attending Unavailable NO FAMILY, PHYSICIAN Primary Care Unavailable Nettie Iqbal Admitting Unavailable Nettie Iqbal Attending Unavailable Nettie Iqbal Admitting Unavailable Nettie Iqbal Attending Unavailable Allergies Allergy Classification Reported Allergen(s) Allergy Type Date of Onset Reaction(s) Facility (20 sources) cefdinir Drug Allergy frequent watery stools, et thrush [facility] (20 sources) Ketorolac Drug Allergy 018 Unknown, Diarrhea [facility] (20 sources) varenicline Drug Allergy 018 Unknown, Muscle Pain [facility] (20 sources) vioxx, antiinflammatories Propensity to adverse reactions Unknown, Hives [facility] (20 sources) Statins Support Drug allergy Unknown [employer] Other (9 sources) varenicline; Translations: [Chantix] Drug Allergy Unknown [facility] (3 sources) Ketorolac Drug Allergy 024 Diarrhea [employer] Other (20 sources) Sulfamethoxazole / Trimethoprim Drug Allergy 023 Unknown [employer] Other (14 sources) rofecoxib; Translations: [rofecoxib] Drug Allergy 018 Migraine [facility] (13 sources) NSAIDS (Non-Steroidal Anti-Inflamma; Translations: [NSAIDS (Non-Steroidal Anti-Inflamma] Allergy to substance Diarrhea [facility] (13 sources) Byiddfg-VBG-DpP Reductase Inhibitor; Translations: [Kndbubp-MBY-HtQ Reductase Inhibitor] Allergy to substance Diarrhea [facility] (1 source) black walnut pollen extract Drug Allergy [facility] (1 source) cefdinir Drug Allergy [facility] (1 source) Ketorolac Drug Allergy [facility] (1 source) NSAIDs Drug allergy (disorder) [facility] (1 source) rofecoxib Drug Allergy [facility] (1 source) Sulfamethoxazole / Trimethoprim Drug Allergy [facility] (20 sources) Ibuprofen Drug Allergy 024 Unknown, [facility] (20 sources) Simvastatin Drug Allergy 024 Unknown, [facility] (20 sources) zoledronic acid Drug Allergy 024 Comment:Bone pain [facility] (5 sources) Allergies Reconciled Propensity to adverse reactions Unknown [facility] Other (20 sources) Toradol *ANALGESICS - ANTI-INFLAMMATORY* Propensity to adverse reactions 015 Unknown [facility] Other (20 sources) Cholesterol Drug allergy 06-29- 015 Unknown [employer] Other (20 sources) ANTI INFLAMMATORY Propensity to adverse reactions 06-29- 015 Unknown [facility] Other (5 sources) patient allergy list reviewed by nurse or physicia Propensity to adverse reactions 015 Comment:Done [facility] Other (1 source) DULoxetine Drug Allergy 024 Diarrhea [facility] (1 source) HMG-CoA reductase inhibitor Propensity to adverse reactions to drug [facility] (1 source) Non-steroidal anti-inflammatory agent Propensity to adverse reactions to drug [facility] (1 source) PARoxetine Drug Allergy Other (See Comments) [facility] (6 sources) Mannitol Drug Allergy Comment:[facility] (6 sources) Sulfamethoxazole Drug Allergy [facility] (6 sources) Trimethoprim Drug Allergy [facility] (6 sources) water for injection,sterile Allergy to substance Comment:[facility] (6 sources) Toradol *ANALGESICS - ANTI-INF Allergy to substance [facility] (4 sources) Ibadronate Drug Allergy [facility] (1 source) Ketorolac Drug Allergy [facility] (1 source) varenicline Drug Allergy [facility] Repository Medications Current Medications Medication Drug Class(es) Dates Sig (Normalized) Sig (Original) acetaminophen 325 mg / HYDROcodone bitartrate 5 mg oral tablet (20 sources) Opioid Agonist Start: 10-26-2023 End: 11-23-2023 take 1 tablet by mouth every eight hours as needed for pain Hydrocodone-Aceta minophen Active 0 .ROUTE .COMPLEX 90 November 23, 2023 TAKE 1 TABLET BY MOUTH EVERY 8 HOURS NEEDED FOR PAIN FOR 30 DAYS p/u 11/22, start 11/24 Start: 07-20-2023 End: 10-26-2023 take 1 tablet by mouth every eight hours Hydrocodone-Acetaminophen Discontinued 1 TAB PO Every 8 hours 90 September 24, 2023 October 24, 2023 10:33am Start: 06-22-2023 End: 07-17-2023 take 1 tablet by mouth every eight hours Hydrocodone-Acetaminophen Discontinued 1 TAB PO Every 8 hours 90 June 22, 2023 July 17, 2023 9:50am Start: 05-10-2023 End: 06-22-2023 take 1 tablet by mouth every six hours Hydrocodone-Acetaminophen Discontinued 1 TAB PO Every 6 hours 06 10June 19, 2023 June 22, 2023 1:37pm Start: 03-21-2023 take 1 tablet by arlene th every [...] every 6 hrs for 30 days p/u 2/2, start 04/14Apr, Active Start: 01-19-2022 End: 05-10-2023 Hydrocodone-Acetaminophen Di scontinued 1 TAB PO As Directed January 19, 2022 1:00am May 10, 2023 9:38am Start: 06-18-2019 End: 07-02-2019 take 1 tablet by mouth every six hours Hydrocodone-Acetaminophen Discontinued 1 TAB PO Q6H 20 June 26, 2019 10:50am July 02, 2019 8:26am Start: 05-01-2019 End: 06-18-2019 take 5-325 mg by mouth four times daily Hydrocodone-Acetaminophen Discontinued 5 - 325 MG PO Four times daily 0 May 01, 2019 June 18, 2019 5:31pm Start: 04-18-2019 End: 04-19-2019 take 5-325 mg by mouth four times daily Hydrocodone-Acetaminophen Discontinued 5 - 325 MG PO Four times daily April 18, 2019 1:00am April 19, 2019 9:08am HYDROcodone-Acet aminophen Active albuterol 0.83 mg/ml inhalation solution (20 sources) beta2-Adrenergic Agonist Start: 08-11-2023 take 3 mL by inhalation every six hours as needed Albuterol Sulfate Active 3 ML INHALATION Every 6 hours August 11, 2023 12:00am [employer] mL as needed Inhalation every 6 hrs; Note: Source Status: Taking; Refills: 2; Qty: 360 ml; Provider: Kathy De Jesus Start: 12-29-2022 albuterol (PRO VENTIL) (2.5 MG/3ML) 0.083% nebulizer solution Take 3 mLs by nebulization 0 12/29/2022 Active Start: 04-19-2019 End: 07-02-2019 Albuterol Sulfate (Ventolin Hfa) 90 mcg/actuation HFA aerosol inhaler Discontinued 2 INH INHALATION every 6 to 8 hours April 19, 2019 1:00am July 02, 2019 8:26am Start: 04-18-2019 End: 07-02-2019 take 1 puff(s) by inhalation four times daily Albuterol Sulfate Discontinued 1 PUFF INHALATION Four times daily April 18, 2019 1:00am July 02, 2019 8:26am Albuterol Sulfat e (2.5 MG/3ML) 0.083% 3 [...] 90 Base) MCG/ACT Inhalation for 16 Not-Taking Calcium (20 sources) Phosphate Binder, Calcium Calcium + D Acti ve calcium carbonate 1250 mg or al tablet (20 sources) Start: 04-19-2019 End: 07-02-2019 Calcium Carbonate (Oyster Sh ell Calcium 500) 500 mg calcium (1,250 mg) Tablet Active 500 MG PO Daily July 01, 2019 12:00am take 1 tablet by arlene th every twenty-four hours Oyster Shell Calcium 500 MG 1 tablet Orally Once a day Not-Taking cholecalciferol 0.025 mg oral tablet (20 sources) Vitamin D Start: 07-01-2019 take 2000 [IU] by mouth once daily Cholecalciferol (Vitamin D3) Active 2000 UNIT PO Daily July 01, 2019 12:00am Start: 04-19-2019 End: 07-02-2019 take 1 tablet by mouth once daily Cholecalciferol (Vitamin D3) (Vitamin D3) 2,000 unit tablet Discontinued 2000 UNIT PO Daily April 19, 2019 1:00am July 02, 2019 8:26am docusate sodium 100 mg oral capsule (12 sources) Start: 07-01-2019 take 1 capsule by mouth twice daily Docusate Sodium (Dok) 100 mg Capsule Active 100 MG PO Twice daily July 01, 2019 12:00am escitalopram 10 mg oral tablet (20 sources) Serotonin Reuptake Inhibitor Start: 11-26-2023 take 20 mg by mouth once Escitalopram Oxalate Active 20 MG PO Once November 26, 2023 9:21am Start: 10-10-2023 End: 11-26-2023 take 1 tablet by mouth once daily Escitalopram Oxalate Discontinued 0 .ROUTE .COMPLEX November 23, 2023 12:47pm November 26, 2023 9:22am Take 1 tablet by mouth once daily Start: 07-26-2023 End: 10-10-2023 take 1 tablet by mouth once daily Escitalopram Oxalate (Lexapro) 10 mg tablet Discontinued 10 MG PO Daily July 26, 2023 12:00am October 10, 2023 8:36am Start: 01-19-2023 escitalopram ( LEXAPRO) 10 MG tablet fluconazole 150 mg oral tablet (20 sources) [...] Active ibandronic acid 150 mg oral tablet (20 sources) Bisphosphonate Start: 05-28-2023 End: 11-22-2023 take 1 tablet by mouth every month Ibandronate Active 0 .ROUTE .COMPLEX 3 November 22, 2023 2:40pm take 1 tablet by mouth EACH MONTH 60 MINUTES BEFORE THE FIRST FOOD,BEVERAGE OR MEDICINE OF THE DAY WITH PLAIN WATER Start: 05-28-2023 End: 05-28-2023 take 1 tablet by mouth once daily Ibandronate Discontinued 150 MG PO May 28, 2023 12:00am May 28, 2023 10:00am 1 tablet 60 minutes before the first food, beverage or medicine of the day with plain water Orally Start: 05-02-2023 take 1 tablet by arlene th every 30 days ibandronate (BONIVA) 150 MG tablet Take 1 tablet by mouth every 30 days 0 05/02/2023 Active take 1 tablet by arlene th once daily Ibandronate Sodium 150 MG 1 [...] oral capsule (20 sources) Guanylate Cyclase-C Agonist Start: 10-23-2023 End: 11-26-2023 take 1 capsule by mouth once daily Linaclotide (Linzess) 290 mcg capsule Active 290 MCG PO Daily November 26, 2023 9:34am Start: 01-08-2023 take 1 capsule by mo [facility] at bedtime LINZESS 290 MCG CAPS capsule Take 1 capsule by mouth in the morning and at bedtime 0 01/08/2023 Active take 1 capsule by mo [facility] every twelve hours Linzess 290 MCG 1 capsule twice a day Active Linzess 290 MCG 1 capsule at least 30 minutes before the first meal of the day on an empty stomach Orally twice daily for 30 days Active mirtazapine 45 mg oral tablet (20 sources) Start: 04-24-2022 take 1 tablet by arlene every twenty-four hours Mirtazapine 45 MG 1 tablet at bedtime Orally Once a day for 30 day(s) Apr, Active Start: 07-01-2019 End: 06-22-2023 take 30 mg by mouth at bedtime Mirtazapine Discontinue d 30 MG PO Bedtime July 01, 2019 12:00am June 22, 2023 1:12pm Start: 04-18-2019 End: 07-02-2019 take 30 mg by mouth at bedtime Mirtazapine Discontinue d 30 MG PO Bedtime April 18, 2019 1:00am July 02, 2019 8:26am take 1 tablet by arlene every twenty-four hours Mirtazapine 15 MG 1 tablet at bedtime Orally Once a day Not-Taking Remeron Active Multivitamin preparation (12 sources) Start: 01-19-2022 take 1 tablet by [...] for 30 day(s) Nov, Active Movantik Active omeprazole 40 mg delayed release oral capsule (20 sources) Proton Pump Inhibitor Start: 11-26-2023 take 40 mg by mouth once daily Omeprazole Active 40 MG PO Daily November 26, 2023 12:00am Start: 07-01-2019 End: 07-05-2021 take 20 mg by mouth once daily before breakfast Omeprazole Discontinued 20 MG PO Daily before breakfast July 01, 2019 12:00am July 05, 2021 1:45pm Start: 04-18-2019 End: 07-02-2019 take 20 mg by mouth once daily Omeprazole Discontinued 20 MG PO Daily April 18, 2019 1:00am July 02, 2019 8:26am take 1 tablet by arlene th once daily Omeprazole 20 MG 1 tablet 30 minutes before morning meal Orally Once a day Active plecanatide 3 mg oral tablet (11 sources) Start: 01-02-2022 take 1 tablet by arlene th every twenty-four hours Probiotic (20 sources) Probiotic Active promethazine hydrochloride 25 mg oral tablet (20 sources) Phenothiazine Start: 08-08-2022 take 1 tablet by mouth every twelve hours Promethazine HCl 25 MG 1 tablet as needed Orally every 12 hrs for 30 days July, Active traZODone hydrochloride 100 mg oral tablet (20 sources) Serotonin Reuptake Inhibitor Start: 11-26-2023 take 150 mg by mouth once daily at bedtime Trazodone Active 150 MG PO Daily at bedtime November 26, 2023 9:22am Start: 07-26-2023 End: 11-26-2023 take 100 mg by mouth once daily at bedtime Trazodone Discontinued 100 MG PO Daily at bedtime July 26, 2023 12:00am November 26, 2023 9:22am Start: 06-20-2023 End: 07-26-2023 take 1 tablet by mouth at bedtime Trazodone Discontinued 0 .ROUTE .COMPLEX June 20, 2023 12:47pm July 26, 2023 3:04pm take 1 tablet by mouth at bedtime if needed Start: 05-28-2023 End: 06-20-2023 take 1 tablet by mouth at bedtime Trazodone Discontinued 0 .ROUTE .COMPLEX May 28, 2023 9:59am June 20, 2023 12:47pm take 1 tablet by mouth at bedtime if needed Start: 08-03-2022 End: 05-28-2023 take 50 mg by mouth once daily at bedtime Trazodone Discontinued 50 MG PO Daily at bedtime May 28, 2023 12:00am May 28, 2023 10:00am traZODone HCl No t-Taking Trulance 3 MG (18 sources) Start: 01-02-2022 take 1 tablet by mouth once da lauren Completed/Discontinued Medications Medication Drug Class(es) Dates Sig (Normalized) Sig (Original) acetaminophen 500 mg oral tablet (12 sources) Start: 07-01-2019 End: 07-05-2021 take 500 mg by mouth every four hours Acetaminophen Discontinued 500 MG PO Q4H 100 July 01, 2019 12:00am July 05, 2021 1:43pm ALPRAZolam 0.5 mg oral tablet (20 sources) Benzodiazepine Start: 08-14-2022 End: 06-24-2023 take 0.5 mg by mouth three times daily Alprazolam Discontinued 0.5 MG PO Three times daily 90 30 May 28, 2023 9:58am June 24, 2023 9:41pm Start: 06-18-2019 End: 05-10-2023 take 0.5 mg by mouth every six hours Alprazolam Discontinued 0.5 MG PO Q6H 0 June 26, 2019 10:50am July 02, 2019 8:26am Start: 04-18-2019 End: 06-18-2019 take 0.5 mg by mouth once daily Alprazolam Discontinue d 0.5 MG PO Daily 10 10 April 19, 2019 9:05am June 18, 2019 5:28pm take 1 tablet by arlene th four times daily Xanax 0.5 MG 1 tablet Orally 4 times daily Active amylase 256228 unt / lipase 64227 unt / protease [id number] unt delayed release oral capsule (17 sources) Start: 07-05-2021 End: 07-06-2021 take [id number] capsules by mouth once daily Zsgrge-Sqttrxqe-Jhkimyf (Creon) 36,000-114,000- 180,000 unit capsule,delayed release(DR/EC) Discontinued 1 CAP PO Daily July 05, 2021 12:00am July 06, 2021 7:56am Start: 06-13-2021 take 1 capsule by mo [facility] three times daily at mealtime Creon [id number] UNIT 1 CAPSULE Orally THREE TIMES A DAY WITH MEALS for 30 days Jun, Active Azithromycin (20 sources) Macrolide Antimicrobial Start: 08-11-2023 End: 09-24-2023 Azithromycin Discontinued 0 PO .COMPLEX August 11, 2023 12:00am September 24, 2023 1:21pm For 250 mg dose pack: take 500 mg today (day 1), then 250 mg for 4 days (days 2-5) PO Start: 08-11-2023 Azithromycin A ctive 0 PO .COMPLEX August 11, 2023 12:00am For 250 mg dose pack: take 500 mg today (day 1), then 250 mg for 4 days (days 2-5) PO Start: 12-26-2022 Azithromycin 2 50 MG as directed Orally 2 tabs po [...] a day for 5 day(s) Apr, Active baclofen 20 mg oral tablet (20 sources) gamma-Aminobutyric Acid-ergic Agonist Start: 08-11-2023 End: 09-24-2023 take 10 mg by mouth every six hours Baclofen Discontinued 10 MG PO Every 6 hours August 11, 2023 12:00am September 24, 2023 1:23pm Start: 01-25-2023 take 1 tablet by [facility] every six hours for pain Baclofen 20 MG 1 tablet Orally every 6 hours if needed for pain for 30 days Jan, Active Start: 04-18-2019 End: 01-19-2022 take 10 mg by mouth four times daily Baclofen Discontinued 10 MG PO Four times daily 20 5 June 26, 2019 10:50am July 02, 2019 8:26am take 1 tablet by arlene th every eight hours Baclofen 10 MG 1 tablet with food or milk Orally Three times a day Active ciprofloxacin 250 mg oral tablet (20 sources) Quinolone Antimicrobial Start: 06-22-2023 End: 07-26-2023 take 250 mg by mouth twice daily Ciprofloxacin Hcl Discontinued 250 MG PO Twice daily June 22, 2023 12:00am July 26, 2023 3:05pm Start: 11-22-2022 take 1 tablet by arlene th every twelve hours Ciprofloxacin HCl 250 MG [...] day Not-Taking clopidogrel 75 mg oral tablet (20 sources) [id number] Platelet Inhibitor Start: 2019 End: 2021 take 75 mg by mouth once daily Clopidogrel Discontinued 75 MG PO Daily July 01, 2019 12:00am July 05, 2021 1:43pm clotrimazole 10 mg oral lozenge (1 source) Azole Antifungal Start: 2020 Clotrimazole 10 MG 1 sandy Mouth/Throat qid for 10 day(s) May, Not-Taking cyclobenzaprine hydrochloride 10 mg oral tablet (1 source) Muscle Relaxant take 1 tablet by mouth every eight hours Cyclobenzaprine HCl 10 MG 1 tablet Oral Three times a day Not-Taking dicyclomine hydrochloride 20 mg oral tablet (20 sources) Anticholinergic Start: 2023 End: 2023 take 1 tablet by mouth four times daily Dicyclomine Discontinued 20 MG PO Four times daily 120 June 05, 2023 1:16pm August 11, 2023 11:12am Take 1 tablet orally four times a day Start: 04-14-2023 take 1 tablet by arlene th every six hours dicyclomine (BENTYL) 20 MG tablet Take 1 tablet by mouth every 6 hours 0 04/14/2023 Active Start: 12-07-2020 End: 06-22-2023 take 20 mg by mouth three times daily Dicyclomine Discontinued 20 MG PO Three times daily July 05, 2021 12:00am June 22, 2023 1:11pm Start: 12-07-2020 take 1 tablet by arlene th every six hours Dicyclomine HCl 20 MG 1 tablet Orally Four times a day for 30 day(s) NEEDED Nov, Not-Taking doxycycline hyclate 100 mg oral tablet (12 sources) Tetracycline-class Drug Start: 04-19-2019 End: 07-02-2019 take 100 mg by mouth twice daily Doxycycline Hyclate Discontinued 100 MG PO Twice daily 10 5 April 19, 2019 1:00am July 02, 2019 8:26am Fiber (1 source) Fiber - Orally *please review for potential _update for e-prescription and drug interaction check* Not-Taking fluticasone propionate 0.05 mg/actuat metered dose nasal spray (1 source) Corticosteroid Fluticasone Propionate 50 MCG/ACT Nasal for 28 Not-Taking Fluticasone Propion-Salmeter ol (20 sources) Corticosteroid, beta2-Adrenergic Agonist Start: 07-05-2021 End: 07-06-2021 take 1 puff(s) by inhalation once daily Fluticasone Propion-Salmeter ol (Advair Hfa) 115-21 mcg/actuation HFA aerosol inhaler [...] Active 1 PUFF INHALATION Twice daily 60 July 01, 2019 12:00am take 1 puff(s) by in halation in the morning fluticasone-salmeterol (ADVAIR) 100-50 MCG/ACT AEPB diskus inhaler Inhale 1 puff into the lungs in the morning and 1 puff in the evening. 0 Active Advair HFA Activ e take 2 puff(s) by in halation twice daily Advair HFA 115-21 MCG/ACT 2 puffs Inhalation Twice a day Active 10 ml lidocaine hydrochloride 20 mg/ml injection (1 source) Antiarrhythmic, Amide Local Anesthetic Start: 06-15-2023 End: 06-15-2023 lidocaine 2 % injection loperamide hydrochloride 2 mg oral capsule (12 sources) Opioid Agonist Start: 07-01-2019 End: 07-05-2021 take 2 mg by mouth twice daily Loperamide Discontinued 2 MG PO Twice daily July 01, 2019 12:00am July 05, 2021 1:44pm Magnesium (1 source) take 1 capsule by mouth once daily Magnesium 500 MG 1 capsule with a meal Orally daily Not-Taking mesalamine (20 sources) Aminosalicylate Start: 01-20-2022 End: 06-22-2023 take 1.5 g by mouth once daily in the morning Mesalamine Discontinued 1.5 GM PO Every morning January 20, 2022 1:00am June 22, 2023 1:12pm Start: 01-20-2022 take 1.5 g by mouth [...] (Dr/Ec) Discontinued 4.8 GM PO Every morning 30 July 01, 2019 12:00am July 05, 2021 1:44pm take 4 tablets by mo ut every twenty-four hours Lialda 1.2 GM 4 TABLETS Orally Once a day Active take 2 tablets by mo uth every twenty-four hours Lialda 1.2 GM 2 tablets Orally Once a day Active Mesalamine (Lialda) 1.2 gram tablet,delayed release (DR/EC) (12 sources) Start: 06-26-2019 End: 07-02-2019 take 4 [...] Mesalamine (Lialda) 1.2 gram Tablet,Delayed Release (Dr/Ec) (12 sources) Start: 06-26-2019 End: 06-26-2019 take 4 [...] 2019 1:54pm metroNIDAZOLE 500 mg oral tablet (15 sources) Nitroimidazole Antimicrobial Start: 07-01-2019 End: 07-05-2021 take 500 mg by mouth twice daily Metronidazole Discontinued 500 MG PO Twice daily 6 3 July 01, 2019 12:00am July 05, 2021 1:44pm mupirocin 0.02 mg/mg topical ointment (1 source) RNA Synthetase Inhibitor Antibacterial Mupirocin 2 % apply to affected area twice a day External for 10 Not-Taking oxyCODONE hydrochloride 5 mg oral tablet (12 sources) Opioid Agonist Start: 07-01-2019 End: 01-19-2022 take 5 mg by mouth every four hours Oxycodone Discontinued 5 MG PO Every 4 hours 20 July 01, 2019 January 19, 2022 2:16pm pantoprazole 40 mg delayed release oral tablet (20 sources) Proton Pump Inhibitor Start: 06-13-2021 End: 11-26-2023 take 1 tablet by mouth once daily Pantoprazole Discontinued 40 MG PO Daily 30 May 02, 2023 1:00am November 26, 2023 9:33am Take 1 tablet orally once a day Pantoprazole Sod ium Active polysaccharide iron complex 150 mg oral capsule (12 sources) Start: 07-05-2021 End: 01-19-2022 Polysaccharide Iron Complex (Iferex 150) 150 mg iron capsule Discontinued 150 MG PO Daily July 05, 2021 12:00am January 19, 2022 2:17pm potassium chloride 10 meq extended release oral tablet (20 sources) Start: 06-26-2019 End: 07-06-2021 Potassium Chloride (Klor-Con 10) 10 mEq Tablet Extended Release Discontinued 10 MEQ PO 3x/Day with meals 60 July 01, 2019 12:00am July 06, 2021 7:56am predniSONE 20 mg oral tablet (20 sources) Start: 08-11-2023 End: 09-24-2023 take 2 tablets by mouth once daily Prednisone Discontinued 20 MG PO .COMPLEX August 11, 2023 12:00am September 24, 2023 1:23pm Take 2 tabs po daily x 5 days Start: 08-25-2022 predniSONE 20 MG take 2 tabs po daily x 5 days Orally Once a day for 5 Aug, Active Start: 08-03-2022 take 2 tablets by mo [facility] every twenty-four hours predniSONE 20 MG 2 tablets Orally Once a day for 5 days July, Active Start: 05-09-2022 predniSONE 20 MG 2 Orally Once a day for 5 days Apr, Active Start: 04-13-2021 take 1 tablet by arlene every twelve hours predniSONE 20 MG 1 tablet Orally bid for 5 day(s) Apr, Active Start: 01-20-2021 take 1 tablet by arlene every twenty-four hours predniSONE 20 MG 1 tablet Orally Once a day for 14 days Jan, Not-Taking Start: 04-19-2019 End: 07-02-2019 take 1 tablet by mouth twice daily, then take 1 tablet by mouth once daily Prednisone Discontinued 10 MG PO As Directed 10 February 8th, 2020 1:00am July 02, 2019 8:26am Take 1 tablet twice a day for 3 days then 1 tablet daily predniSONE Not-T aking/PRN predniSONE Not-T aking pregabalin 150 mg oral capsule (20 sources) Start: 06-22-2023 End: 11-23-2023 take 1 capsule by mouth twice daily Pregabalin (Lyrica) 150 mg capsule Discontinued 150 MG PO Twice daily 60 September 24, 2023 12:00am October 24, 2023 10:33am Start: 12-04-2022 take 1 capsule by mo uth twice daily pregabalin (LYRICA) 150 MG capsule Take 1 capsule by mouth 2 times daily. 0 01/04/2023 Active Start: 10-04-2022 take 1 capsule by mo uth every twelve hours Lyrica 150 MG 1 capsule Orally Twice a day for 30 days Sep, Active Start: 04-28-2022 take 1 capsule by mo uth every twelve hours Lyrica 75 MG 1 capsule Orally Twice a day Apr, Active Pregabalin Activ e Lyrica Active sucralfate 1000 mg oral tablet (6 sources) [...] organisms; Translations: [Acute bronchitis] Episodic Administrative/social admission (20 sources) Other reduced mobility; Translations: [Impaired mobility and activities of daily living] 04-16-2020 Episodic Anxiety disorders (20 sources) Generalized anxiety disorder; Translations: [Generalized anxiety disorder] Onset: 02-28-2022 Chronic Calculus of urinary tract (1 source) Personal history of urinary calculi; Translations: [PERSONAL HISTORY OF URINARY CALCULI] Onset: 06-08-2022 Episodic Chronic obstructive pulmonary disease and bronchiectasis (20 sources) Cachexia; Translations: [Chronic obstructive pulmonary disease, unspecified] Onset: 10-08-2017 Resolved: 11-05-2020 04-18-2019 Chronic Chronic obstructive pulmonary disease and bronchiectasis (13 sources) Bronchitis; Translations: [Bronchitis, not specified as acute or chronic] 06-27-2019 Episodic Coagulation and hemorrhagic disorders (20 sources) Petechiae of skin; Translations: [Spontaneous ecchymoses] Onset: 05-29-2022 Episodic Deficiency and other anemia (12 sources) Anemia; Translations: [Anemia, unspecified] 06-27-2019 Episodic [...] [Gastro-esophageal reflux disease with esophagitis, without bleeding] Essential hypertension (1 source) Essential (primary) hypertension; Translations: [Essential (primary) hypertension] Onset: 06-13-2023 Chronic Fracture of lower limb (14 sources) Other fracture of upper end of right tibia, initial encounter for closed fracture; Translations: [Displaced bicondylar fracture of right tibia, subsequent encounter for closed fracture with routine healing] Episodic Gastrointestinal hemorrhage (15 sources) Hemorrhage of anus and rectum; Translations: [Hemorrhage of rectum and anus] Onset: 11-28-2021 Episodic Immunizations and screening for infectious disease [...] sources) Nausea; Translations: [Nausea] Episodic Noninfectious gastroenteritis (20 sources) Colitis; Translations: [Noninfective gastroenteritis and colitis, unspecified] 06-22-2019 Episodic Nonspecific chest pain (15 sources) Chest pain, unspecified; Translations: [Chest pain] Onset: 02-23-2022 Episodic Nutritional deficiencies (20 sources) Vitamin D deficiency; Translations: [Vitamin D deficiency, unspecified] Chronic Nutritional deficiencies (19 sources) Iron deficiency; Translations: [Iron deficiency] Resolved: [...] region] Episodic Other aftercare (2 sources) Other skilled nursing (current) drug therapy; Translations: [OTH MOUNTAIN OR GLACIER GUIDE CURRENT DRUG THERAPY] Onset: 06-08-2022 Episodic Other aftercare (10 sources) Long-term current use of drug therapy; Translations: [Other exterminator (current) drug therapy] Episodic Other and ill-defined cerebrovascular disease (15 sources) Cerebral atherosclerosis; Translations: [Cerebral atherosclerosis] Onset: 03-18-2014 Chronic Other and ill-defined cerebrovascular disease (1 source) Cerebral atherosclerosis; Translations: [Cerebral atherosclerosis] Chronic Other circulatory disease (12 sources) History of cerebrovascular accident; Translations: [Personal [...] [Fibromyalgia] 06-26-2019 Episodic Other connective tissue disease (12 sources) Recurrent falls ; Translations: [Repeated falls] 06-23-2019 Episodic Other connective tissue disease (8 sources) Fibromyalgia; Translations: [Myalgia and myositis, unspecified] Onset: 04-25-2022 Episodic Other diseases of veins and lymphatics (20 sources) Peripheral venous insufficiency; Translations: [Venous insufficiency (chronic) (peripheral)] Onset: 11-24-2015 Episodic Other diseases of veins and lymphatics (2 sources) Venous insufficiency (chronic) (peripheral); Translations: [Venous insufficiency (chronic) (peripheral)] Episodic Other disorders of stomach and duodenum (17 sources) Disorder of function of stomach; Translations: [Disease of stomach and duodenum, unspecified] Onset: 07-18-2018 07-06-2021 Episodic Other female genital disorders (5 sources) Polyp of vagina; Translations: [POLYP OF VAGINA] Onset: 04-17-2022 Episodic Other female genital disorders (10 sources) Polyp of vagina; Translations: [Polyp of vagina] Episodic Other fractures (14 sources) Compression fracture of thoracic spine; Translations: [Wedge compression fracture of unspecified thoracic vertebra, initial encounter for closed fracture] 04-19-2019 Episodic Other fractures (5 sources) Collapsed vertebra, not elsewhere classified, site unspecified, initial encounter for fracture; Translations: [Closed fracture of unspecified vertebral column without mention of spinal cord injury] Onset: 09-02-2021 06-22-2023 Episodic Other fractures (10 sources) Pathological fracture [...] encounter for closed fracture Episodic Other fractures (3 sources) Wedge compression fracture of T11-T12 vertebra, subsequent encounter for fracture with delayed healing; Translations: [Wedge compression fracture of t11-T12 vertebra, subsequent encounter for fracture with delayed healing] Onset: 06-13-2023 Episodic Other fractures (1 source) Fracture of twelfth thoracic vertebra; Translations: [Wedge compression fracture of T11-T12 vertebra, subsequent encounter for fracture with delayed healing] 06-15-2023 Episodic Other fractures (6 sources) Compression fracture of vertebral column; Translations: [Collapsed vertebra, not elsewhere classified, site unspecified, initial encounter for fracture] 05-10-2023 Episodic Other gastrointestinal disorders (20 sources) Irritable [...] disorders (20 sources) Constipation; Translations: [Constipation, unspecified] 11-26-2023 Episodic Other gastrointestinal disorders (4 sources) Constipation, unspecified; Translations: [Constipation, unspecified] Episodic Other gastrointestinal disorders (1 source) Other [...] IN RIGHT HIP] Onset: 10-20-2021 Episodic Other non-traumatic joint disorders (6 sources) Pain in right knee; Translations: [Right knee pain] 06-22-2023 Episodic Other screening for suspected conditions (not [...] maxillary sinusitis] Onset: 04-13-2021 Resolved: 04-13-2021 Episodic Pancreatic disorders (not diabetes) (20 sources) Other specified diseases of pancreas; Translations: [Cyst of pancreas] Onset: 01-07-2022 Episodic Paralysis (5 sources) Hemiplegia of dominant side; Translations: [Unspecified hemiplegia affecting dominant side] Onset: 10-02-2014 Chronic Pathological fracture (20 sources) 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; Translations: [Age-related osteoporosis with current pathological fracture, vertebra(e), initial encounter for fracture] Onset: 06-15-2023 06-23-2019 Episodic Regional enteritis and ulcerative colitis (20 sources) Ulcerative colitis; Translations: [Ulcerative colitis, unspecified, without complications] Onset: 04-17-2018 Resolved: 06-21-2021 Chronic Residual codes; unclassified (20 sources) Tobacco user; Translations: [Tobacco use] Onset: 03-18-2014 06-26-2019 Episodic Residual codes; unclassified (12 sources) Patient encounter status; Translations: [Encounter for [...] history of (healed) traumatic fracture] Onset: 02-27-2023 Urinary tract infections (8 sources) Urinary tract infection, site not specified; Translations: [Urinary tract infectious disease] Onset: 10-18-2021 4 Episodic Past or Other Problems Problem Classification Problem [...] UNS OVREXRT/STRN MVMT/POS INT] Onset: 10-11-2021 Episodic Genitourinary symptoms and ill-defined conditions (20 sources) Dysuria; Translations: [Personal history of urinary (tract) infections] Onset: 04-14-2022 Episodic Hepatitis (11 sources) Viral hepatitis B [...] sources) High risk drug monitoring status; Translations: [intermediate (current) use of opiate analgesic] Onset: 11-14-2016 Episodic Other aftercare (1 source) 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; Translations: [intermediate (current) use of opiate analgesic] Onset: 11-14-2016 [...] ORG MENST CYCL] Onset: 04-10-2022 Episodic Other gastrointestinal disorders (4 sources) Abdominal [...] Translations: [Abnormal weight loss] Resolved: 01-07-2022 Episodic Residual codes; unclassified (1 source) [...] candidiasis of vulva and vagina] Resolved: 01-07-2022 Results Test Name Value Interpretation Reference Range Facility ISTAT XRay CREon 11-02-2023 ISTAT GFR > 60.0 Normal [facility] Comment on above: Result Comment: PERF ORMED BY: [place] [address] PATHOLOGIST GRANULATOR TENDER SHELTON NEVAREZ M.D. Performed By: #### I SCRE #### [address] MR abdomen wo/w conon 2023 MR abdomen wo/w con [facility] Main [place] [address] [place] [address] MRI Report Signed Patient: Afia Maxwell MR#: [id number] : 1955 Acct:[id number] Age/Sex: 68 / F ADM Date: 11/02/23 Loc: MR Room: Type: [facility] Attending Dr: Horacio Erwin MD Copies to: Horacio Erwin MD Ordering Provider: Horacio Erwin MD Date of Service: 11/02/23 MR/MR abdomen wo/w con: K86.9 - Disease of pancreas, unspecified MR abdomen wo/w con 11/02/2023 5:31 PM SIGNS AND SYMPTOMS: Follow-up 6 mm lesion in pancreatic head on CT TECHNIQUE: With multiplanar multisequence MR images of the abdomen were obtained with and without IV contrast CONTRAST: 10 mL of intravenous ProHance COMPARISON: 01/13/2023 and 11/09/2022 FINDINGS: Lower Chest: Within normal limits. ABDOMEN: Liver: Within normal limits. Bile Ducts: Normal caliber. Gallbladder: No calcified gallstones. Normal caliber wall. Pancreas: There is a 6 mm T2 hyperintense nonenhancing cyst adjacent to the pancreatic duct within the head of the pancreas. This is similar to that seen on the prior exam. Spleen: Within normal limits. Adrenals: Within normal limits. Kidneys: Within normal limits. Bowel: There are a few uncomplicated colonic diverticula. Mesenteric Lymph Nodes: No enlarged mesenteric lymph nodes. Peritoneum: No ascites or free air, no fluid collection. Vessels: Satisfactory flow voids are noted in the abdominal aorta, inferior vena cava, and portal vein. Retroperitoneum: Within normal limits. Abdominal Wall: Within normal limits. Bones: There is a levoconvex curvature of the thoracolumbar spine. There is evidence of previous vertebroplasty at L2. MR/MR abdomen wo/w con IMPRESSION: There is a 6 mm T2 hyperintense nonenhancing cyst adjacent to the pancreatic duct within the head of the pancreas. This is similar to that seen on the prior exam. This may be sequelae of prior pancreatitis (a small pseudocyst) or a cystic neoplasm such as an IPMN. There are uncomplicated colonic diverticula. Impression dictated by: Wai Denise M.D.11/02/2023 8:02 PM Dictation Location: [place] [address] Transcribed By: [facility] 11/02/232001 Dictated By: Wai Denise II, MD 11/02/231953 Signed By: 11/02/232001 [facility] No Panel InformationOrdered By: Horacio Erwin on 11-02-2023 Bedside Estimated GFR (eGFR) > 60.0 [facility] Whole blood creatinine measu rementOrdered By: Horacio Erwin on 11-02-2023 Creatinine [Mass/Vol] 0.5 mg/dL Low 0.6-1.3 [facility] Comment on above: ER/ESD physician is notified/shown all ISTAT results.Critical values may be confirmed by laboratory testing ifdeemed necessary by ER attending doctor. Result Comment: ER/E SD physician is notified/shown all ISTAT results. Critical values may be confirmed by laboratory testing if deemed necessary by ER attending doctor. Performed By: #### I SCRE #### [facility] [address] Laboratory - Chemistry and C hemistry - challengeon 06-22-2023 Bilirubin Ql (U) Negative [facility] Glucose (U) [Mass/Vol] Negative [facility] Ketones Ql (U) Negative [facility] pH (U) 5 [pH] [facility] Specific gravity (U) [Rel density] 1.025 [facility] Urobilinogen (U) [Mass/Vol] 0.2 mg/dL [facility] Laboratory - Specimen inform ationon 06-22-2023 Appearance (U) cloudy [facility] Color (U) DarkYellow [facility] Laboratory - Urinalysison Leukocyte esterase Test strip Ql (U) Negative [facility] Nitrite Ql (U) Positive [facility] Protein Ql (U) Negative [facility] No Panel Informationon 06-21 Urine Occult Blood Negative [facility] Urine Cultureon 06-22-2023 Bacteria identified Cx Nom (U) ORGANISM: Citrobacter freundii complex (O:CITFRC) [place] Count >100,000 Aerobic ARIEL Charge ([id number]) ------ SUSCEPTIBILITY ----- ORGANISM: O:CITFRC ANTIBIOTIC INTERPRETATION ARIEL Amikacin S <16 Aztreonam IB <4 Cefepime S <2 Ceftazidime IB <1 Ceftazidime/Avibact am S <4 Ceftriaxone IB <1 Ciprofloxacin S <0.25 Ertapenem S <0.5 Gentamicin S <2 Levofloxacin S <0.5 Meropenem S <1 Nitrofurantoin S <32 Piperacillin/Tazoba ctam IB <8 Tetracycline S <4 Tigecycline S <2 [...] RESISTANT TO ALL B-LACTAM DRUGS. PERFORMED BY: [place] [address] PATHOLOGIST GRANULATOR TENDER SHELTON NEVAREZ M.D. Normal [facility] Comment on above: Performed By: #### C UU #### [address] Urine culture routineOrdered By: Nettie Iqbal on 06-22-2023 Bacteria identified Cx Nom (U) Citrobacter freundii complex [facility] IR VERTEBROPLASTY CERVICOTHO RACICon 06-15-2023 IR VERTEBROPLASTY CERVICOTHORACIC IMPRESSION: Technically successful vertebroplasty of the T11 and T12 vertebral bodies using real-time biplane fluoroscopy using the left mono pedicular approach with curve needles. Note that after starting injection of the T11 vertebral body there appear to be cement protrusion into the disc, therefore after the left hemibody was filled, further injection was stopped. If patient continues to have pain later, a right-sided approach may be obtained and further cement may be injected. Radiation dose: 42.1 mGy. PROCEDURE: Following discussion of the procedure, alternatives, risks versus benefits, informed consent was obtained from the patient. Specificity, risks of after biopsy pain at the site, rare possibility of excessive hemorrhage, infection, injury to the adjacent organs were discussed and the patient verbalized understanding. The patient was sedated by anesthesiology service, please see anesthesiology notes for full details. Following universal protocol, patient and site verification was performed with a timeout prior to the procedure. The patient was placed prone on the procedure table. The level of the vertebral body of T11 and T12 vertebral bodies were marked under fluoroscopic imaging. The back was prepped and draped in a sterile fashion. Local anesthetic using 1% can was injected into the site. Following that 11-gauge vertebroplasty bone access needles were advanced through the left pedicles of T11 and T12. Following that a curved needles were used to advance anterior third midline portion of the vertebral body. Following that bone cement was injected into the T11 vertebral body. Once the left hemivertebral body was filled, cement was seen to protrude caudally into the disc space, at that point further injection was immediately stopped. Cement was then injected into the T12 vertebral body until the entire vertebral body was satisfactorily filled. The needles were subsequently removed. Following that the patient was transferred to bed with assistance to prevent any back movement, and the patient left to the recovery room in the supine position. The patient was in stable condition. The patient tolerated the procedure well without any immediate complications. The patient was recovered while lying on their back for 2 hours. The patient was discharged home after 2 hours in normal condition. Interpreted by: Ricardo Carbajal MD Signed by: Ricardo Carbajal MD 06/18/23 Final result Normal [facility] IR VERTEBROPLASTY EACH ADDIT IONALon 06-15-2023 IR VERTEBROPLASTY EACH ADDITIONAL IMPRESSION: Technically successful vertebroplasty of the T11 and T12 vertebral bodies using real-time biplane fluoroscopy using the left mono pedicular approach with curve needles. Note that after starting injection of the T11 vertebral body there appear to be cement protrusion into the disc, therefore after the left hemibody was filled, further injection was stopped. If patient continues to have pain later, a right-sided approach may be obtained and further cement may be injected. Radiation dose: 42.1 mGy. PROCEDURE: Following discussion of the procedure, alternatives, risks versus benefits, informed consent was obtained from the patient. Specificity, risks of after biopsy pain at the site, rare possibility of excessive hemorrhage, infection, injury to the adjacent organs were discussed and the patient verbalized understanding. The patient was sedated by anesthesiology service, please see anesthesiology notes for full details. Following universal protocol, patient and site verification was performed with a timeout prior to the procedure. The patient was placed prone on the procedure table. The level of the vertebral body of T11 and T12 vertebral bodies were marked under fluoroscopic imaging. The back was prepped and draped in a sterile fashion. Local anesthetic using 1% can was injected into the site. Following that 11-gauge vertebroplasty bone access needles were advanced through the left pedicles of T11 and T12. Following that a curved needles were used to advance anterior third midline portion of the vertebral body. Following that bone cement was injected into the T11 vertebral body. Once the left hemivertebral body was filled, cement was seen to protrude caudally into the disc space, at that point further injection was immediately stopped. Cement was then injected into the T12 vertebral body until the entire vertebral body was satisfactorily filled. The needles were subsequently removed. Following that the patient was transferred to bed with assistance to prevent any back movement, and the patient left to the recovery room in the supine position. The patient was in stable condition. The patient tolerated the procedure well without any immediate complications. The patient was recovered while lying on their back for 2 hours. The patient was discharged home after 2 hours in normal condition. Interpreted by: Ricardo Carbajal MD Signed by: Ricardo Carbajal MD 06/18/23 Final result Normal [facility] CBCon 06-13-2023 Erythrocyte distribution width (RBC) [Ratio] 13.2 % Normal 11.8-14.4 [facility] Comment on above: Performed By: #### C DARIELA PT, CP #### [facility] [address] [place] [address] [place] [address] Public Records Researcher: Janna Monzon MD Hematocrit (Bld) [Volume fraction] 44.8 % Normal 36.3-47.1 [facility] Comment on above: Performed By: #### C DARIELA PT, CP #### [facility] [address] [place] [address] Public Records Researcher: Janna Monzon MD Hemoglobin (Bld) [Mass/Vol] 14.2 g/dL Normal 11.9-15.1 [facility] Comment on above: Performed By: #### C BC, PT, CP #### [address] [place], [facility] Public Records Researcher: Janna Monzon MD MCH (RBC) [Entitic mass] 31.8 pg Normal 25.2-33.5 [facility] Comment on above: Performed By: #### C BC, PT, CP #### [address] [place], [place] [address] Public Records Researcher: Janna Monzon MD MCHC (RBC) [Mass/Vol] 31.7 g/dL Normal 28.4-34.8 [facility] Comment on above: Performed By: #### C BC, PT, CP #### [address] [place], [facility] Public Records Researcher: Janna Monzon MD MCV (RBC) [Entitic vol] 100.2 fL Normal 82.6-102.9 [facility] Comment on above: Performed By: #### C BC, PT, CP #### [address] [place], [facility] Public Records Researcher: Janna Monzon MD NRBC Automated 0.0 per 100 WBC Normal 0.0 [facility] Comment on above: Performed By: #### C BC, PT, CP #### [address] [place], [place] [address] Public Records Researcher: Janna Monzon MD Platelet mean volume (Bld) [Entitic vol] 9.9 fL Normal 8.1-13.5 [facility] Comment on above: Performed By: #### C BC, PT, CP #### [address] [place], [facility] Public Records Researcher: Janna Monzon MD Platelets (Bld) [#/Vol] 167 10*3/uL Normal 138-453 [facility] Comment on above: Performed By: #### C BC, PT, CP #### [facility] [address] [place], [place] [id number] Public Records Researcher: Janna Monzon MD RBC (Bld) [#/Vol] 4.47 10*6/uL Normal 3.95-5.11 [facility] Comment on above: Performed By: #### C BC, PT, CP #### [facility] [address] [place], [place] [id number] Public Records Researcher: Janna Monzon MD WBC (Bld) [#/Vol] 4.4 10*3/uL Normal 3.5-11.3 [facility] Comment on above: Performed By: #### C DARIELA, PT, CP #### [address] [place], [place] [id number] Public Records Researcher: Janna Monzon MD Comp Metabolic Profon 2023 Albumin [Mass/Vol] 4.3 g/dL Normal 3.5-5.2 [facility] Comment on above: Performed By: #### C DARIELA, PT, CP #### [address] [place], [place] [id number] Public Records Researcher: Janna Monzon MD Albumin/Glob Ratio 1.3 Normal 1.0-2.5 [facility] Comment on above: Performed By: #### C DARIELA, PT, CP #### [address] [place], [place] [id number] Public Records Researcher: Janna Monzon MD Alkaline Phos 78 U/L Normal 35-104 [facility] Comment on above: Performed By: #### C DARIELA, PT, CP #### [address] [place], [place] [id number] Public Records Researcher: Janna Monozn MD ALT [Catalytic activity/Vol] 11 U/L Normal 5-33 [facility] Comment on above: Performed By: #### C BC, PT, CP #### [facility] [address] [place] [address] Dr. [place], [place] [id number] Public Records Researcher: Janna Monzon MD Anion gap [Moles/Vol] 8 mmol/L Low 9-17 [facility] Comment on above: Performed By: #### C BC, PT, CP #### [facility] [address] [place] [address] Dr. [place], [place] [id number] Public Records Researcher: Janna Monzon MD AST [Catalytic activity/Vol] 21 U/L Normal <32 [facility] Comment on above: Performed By: #### C BC, PT, CP #### [address] [place], [place] [id number] Public Records Researcher: Janna Monzon MD Bilirubin [Mass/Vol] 0.2 mg/dL Low 0.3-1.2 [facility] Comment on above: Performed By: #### C DARIELA, PT, CP #### [address] [place], [place] [id number] Public Records Researcher: Janna Monzon MD BUN/CRE Ratio 30 High 9-20 [facility] Comment on above: Performed By: #### C BC, PT, CP #### [address] [place], [place] [id number] Public Records Researcher: Janna Monzon MD Calcium [Mass/Vol] 9.3 mg/dL Normal 8.6-10.4 [facility] Comment on above: Performed By: #### C BC, PT, CP #### [facility] [address] [place] [address] Dr. [place], [place] [id number] Public Records Researcher: Janna Monzon MD Chloride [Moles/Vol] 103 mmol/L Normal 98-107 [facility] Comment on above: Performed By: #### C BC, PT, CP #### [facility] [address] [place] [address] [place] [place], [place] [id number] Public Records Researcher: Janna Monzon MD CO2 [Moles/Vol] 29 mmol/L Normal 20-31 [facility] Comment on above: Performed By: #### C DARIELA, PT, CP #### [facility] [address] [place] [address] Public Records Researcher: Janna Monzon MD Creatinine [Mass/Vol] 0.5 mg/dL Normal 0.5-0.9 [facility] Comment on above: Performed By: #### C DARIELA, PT, CP #### [facility] [address] [place] [address] Public Records Researcher: Janna Monzon MD GFR/1.73 sq M.predicted among non-blacks MDRD (S/P/Bld) [Vol rate/Area] mL/min/{1.73_m2} Normal >60 [facility] Comment on above: Result Comment: These results are not intended for use in patients <18 years of age. eGFR results are calculated without a race factor using the 2020 CKD-EPI equation. Careful clinical correlation is recommended, particularly when comparing to results calculated using previous equations. The CKD-EPI equation is less accurate in patients with extremes of muscle mass, extra-renal metabolism of creatine, excessive creatine ingestion, or following therapy that affects renal tubular secretion. Performed By: #### C DARIELA PT, CP #### [address] [place] [address] Public Records Researcher: Janna Monzon MD Glucose [Mass/Vol] 77 mg/dL Normal 70-99 [facility] Comment on above: Performed By: #### C DARIELA, PT, CP #### [facility] [address] [place] [address] Public Records Researcher: Janna Monzon MD Potassium [Moles/Vol] 4.0 mmol/L Normal 3.7-5.3 [facility] Comment on above: Performed By: #### C DARIELA, PT, CP #### [facility] [address] [place] [address] Public Records Researcher: Janna Monzon MD Protein [Mass/Vol] 7.7 g/dL Normal 6.4-8.3 [facility] Comment on above: Performed By: #### C BC, PT, CP #### [facility] [address] [place] [address] [place] [address] Public Records Researcher: Janna Monzon MD Sodium [Moles/Vol] 140 mmol/L Normal 135-144 [facility] Comment on above: Performed By: #### C BC, PT, CP #### [address] [place] [address] Public Records Researcher: Janna Monzon MD Urea nitrogen [Mass/Vol] 15 mg/dL Normal 8-23 [facility] Comment on above: Performed By: #### C BC, PT, CP #### [address] [place] [address] Public Records Researcher: Janna Monzon MD PTon 06-13-2023 INR Coag (PPP) [Relative time] 0.9 {INR} Normal [facility] Comment on above: Result Comment: Therapeutic Range: Moderate Anticoagulant Intensity: INR = 2.0-3.0 High Anticoagulant Intensity: INR = 2.5-3.5 Performed By: #### C BC, PT, CP #### [address] [place] [address] Public Records Researcher: Janna Monzon MD PT Coag (PPP) [Time] 12.3 s Normal 11.7-14.1 [facility] Comment on above: Performed By: #### C DARIELA, PT, CP #### [address] [place] [address] Public Records Researcher: Janna Monzon MD XR lumbar spine AP/LAT/FLX/E XTon 02-27-2023 XR lumbar spine AP/LAT/FLX/EXT [address] [address] XRay Report Signed Patient: Afia Maxwell MR#: [id number] : 1955 Acct:[id number] Age/Sex: 67 / F ADM Date: 02/27/23 Loc: XD Room: Type: [facility] Attending Dr: Ana REVELES Copies to: ANUSHKA [...] Verito Anderson M.D.02/27/2023 3:16 PM Dictation Location: [place] [address] Transcribed By: [facility] 02/27/23 1516 Dictated By: Verito Anderson MD 02/27/231512 Signed By: 02/27/23 151 Normal [facility] Automated erythrocytes count in urine sediment (number/area)Ordered By: Nettie Iqbal on 01-11-2023 RBC Auto (Urine sed) [#/Area] 3-4 [HPF] 0-4 [facility] Automated leukocytes count i n urine sediment (number/area)Ordered By: Nettie Iqbal on 01-11-2023 WBC Auto (Urine sed) [#/Area] 0-1 [HPF] 0-4 [facility] Automated urine color determ inationOrdered By: Nettie Iqbal on 01-11-2023 Color (U) Dark yellow Critically abnormal Yellow [facility] Comment on above: Order Comment: Name Collection Type:: Clean-Voided Midstream Performed By: #### A DDONUAPLUS, CUU #### [address] Automated urine sediment jaime cium oxalate crystal count by microscopy (number/high powOrdered By: Nettie Iqbal on 01-11-2023 Calcium oxalate crystals LM.HPF (Urine sed) [#/Area] 3+ [HPF] [facility] Bilirubin Test strip Ql (U)O rdered By: Nettie Iqbal on 01-11-2023 Bilirubin Ql (U) Negative Negative [facility] Dipstick and Microscopicon 1 03-13-2022 Appearance (U) Cloudy Critically abnormal Clear [facility] Comment on above: Order Comment: Name Collection Type:: Clean-Voided Midstream Performed By: #### A DDONUAPLUS, CUU #### [place] [address] [place] Bacteria,Urine 1+ High None Seen [facility] Comment on above: Order Comment: Name Collection Type:: Clean-Voided Midstream Performed By: #### A DDONUAPLUS, CUU #### [place] [address] [place] Bilirubin,Urine Negative Normal Negative [facility] Comment on above: Order Comment: Name Collection Type:: Clean-Voided Midstream Performed By: #### A DDONUAPLUS, CUU #### [place] [address] [place] Calcium Oxalate Crystals,Urine 3+ Normal [facility] Comment on above: Order Comment: Name Collection Type:: Clean-Voided Midstream Performed By: #### A DDONUAPLUS, CUU #### [place] [address] [place] Glucose Ql (U) Normal Normal Normal [facility] Comment on above: Order Comment: Name Collection Type:: Clean-Voided Midstream Performed By: #### A DDONUAPLUS, CUU #### [place] [address] [place] Hyaline Casts,Urine 0-8 Normal 0-8 [facility] Comment on above: Order Comment: Name Collection Type:: Clean-Voided Midstream Result Comment: PERF ORMED BY: [place] [address] PATHOLOGIST GRANULATOR TENDER SHELTON NEVAREZ M.D. Performed By: #### A DDONUAPLUS, CUU #### [place] [address] [place] Ketones Ql (U) Trace High Negative [facility] Comment on above: Order Comment: Name Collection Type:: Clean-Voided Midstream Performed By: #### A DDONUAPLUS, CUU #### [address] Leukocyte esterase Test strip Ql (U) Negative Normal Negative [facility] Comment on above: Order Comment: Name Collection Type:: Clean-Voided Midstream Performed By: #### A DDONUAPLUS, CUU #### [place] [address] [place] Nitrite,Urine Negative Normal Negative [facility] Comment on above: Order Comment: Name Collection Type:: Clean-Voided Midstream Performed By: #### A DDONUAPLUS, CUU #### [place] [address] [place] Occult Blood,Urine Negative Normal Negative [facility] Comment on above: Order Comment: Name Collection Type:: Clean-Voided Midstream Result Comment: PERF ORMED BY: [place] [address] PATHOLOGIST GRANULATOR TENDER SHELTON NEVAREZ M.D. Performed By: #### A DDONUAPLUS, CUU #### [place] [address] [place] Protein,Urine Negative Normal Negative [facility] Comment on above: Order Comment: Name Collection Type:: Clean-Voided Midstream Performed By: #### A DDONUAPLUS, CUU #### [address] RBC,Urine 3-4 Normal 0-4 [facility] Comment on above: Order Comment: Name Collection Type:: Clean-Voided Midstream Performed By: #### A DDONUAPLUS, CUU #### [address] Specificy [place],Urine 1.022 Normal 1.001-1.030 [facility] Comment on above: Order Comment: Name Collection Type:: Clean-Voided Midstream Performed By: #### A DDONUAPLUS, CUU #### [address] Squamous Epithelial Cell,Urine 0-1 Normal 0-2 [facility] Comment on above: Order Comment: Name Collection Type:: Clean-Voided Midstream Performed By: #### A DDONUAPLUS, CUU #### [address] Urobilinogen,Urine Normal Normal Normal [facility] Comment on above: Order Comment: Name Collection Type:: Clean-Voided Midstream Performed By: #### A DDONUAPLUS, CUU #### [address] WBC LM.HPF (Urine sed) [#/Area] 0 /[HPF] Normal 0-4 [facility] Comment on above: Order Comment: Name Collection Type:: Clean-Voided Midstream Performed By: #### A DDONUAPLUS, CUU #### [address] Ketones Auto test strip (U) [Mass/Vol]Ordered By: Nettie Iqbal on 01-11-2023 Ketones (U) [Mass/Vol] Trace Negative [facility] - UrinalysisOrder ed By: Nettie Iqbal on 01-11-2023 Hyaline casts LM Ql (Urine sed) 0-8 [LPF] 0-8 [facility] Nitrite Test strip Ql (U)Ord ered By: Nettie Iqbal on 01-11-2023 Nitrite Ql (U) Negative Negative [facility] Protein Auto test strip (U) [Mass/Vol]Ordered By: Nettie Iqbal on 01-11-2023 Protein (U) [Mass/Vol] Negative Negative Fi [facility] Specific gravity Auto test s trip (U) [Rel density]Ordered By: Nettie Iqbal on 01-11-2023 Specific gravity (U) [Rel density] 1.022 1.001-1.030 [facility] Squamous epithelial cells de tection in urine sediment by light microscopyOrdered By: Nettie Iqbal on 01-11-2023 Epithelial cells.squamous LM Ql (Urine sed) 0-1 [HPF] 0-2 [facility] Urine Cultureon 01-11-2023 Bacteria identified Cx Nom (U) ORGANISM: Strep agalactiae - (group b) (O:STRAGA) [place] Count <10,000 PERFORMED BY: [place] [address] PATHOLOGIST GRANULATOR TENDER SHELTON NEVAREZ M.D. Normal [facility] Comment on above: Performed By: #### A DDONUAPLUS, CUU #### [address] Urine bacteria detection by automated methodOrdered By: Nettie Iqbal on 01-11-2023 Bacteria Auto Ql (U) 1+ None Seen [facility] Urine clarity by refractomet ry automatedOrdered By: Nettie Iqbal on 01-11-2023 Clarity Refractometry automated (U) Cloudy Clear [facility] Urine culture routineOrdered By: Nettie Iqbal on 01-11-2023 Bacteria identified Cx Nom (U) Strep agalactiae - (group b) [facility] Urine glucose measurement by automated test strip (mass/volume)Ordered By: Nettie Iqbal on 01-11-2023 Glucose Auto test strip (U) [Mass/Vol] Normal mg/dL Normal [facility] Urine hemoglobin detection b y automated test stripOrdered By: Nettie Iqbal on 01-11-2023 Hemoglobin Auto test strip Ql (U) Negative Negative [facility] Urine leukocyte esterase det ection by automated test stripOrdered By: Nettie Iqbal on 01-11-2023 Leukocyte esterase Auto test strip Ql (U) Negative Negative [facility] Urine pH measurement by auto mated test stripOrdered By: Nettie Iqbal on 01-11-2023 pH (U) 5.5 [pH] Normal 5.0-9.0 [facility] Comment on above: Order Comment: Name Collection Type:: Clean-Voided Midstream Performed By: #### A DDONUAPLUS, CUU #### [facility] [address] Urine sediment crystal ident ification by light microscopyOrdered By: Nettie Iqbal on 01-11-2023 Crystals LM Nom (Urine sed) N/A [facility] Urobilinogen Auto test strip (U) [Mass/Vol]Ordered By: Nettie Iqbal on 01-11-2023 Urobilinogen (U) [Mass/Vol] Normal mg/dL Normal [facility] ED Note-Physicianon 12-26-19 ED Note-Physician [id number] C6#1.00TIFF Normal [facility] Automated erythrocytes count in urine sediment (number/area)Ordered By: Nettie Iqbal on 11-20-2022 RBC Auto (Urine sed) [#/Area] 20-49 [HPF] 0-4 [facility] Automated leukocytes count i n urine sediment (number/area)Ordered By: Nettie Iqbal on 11-20-2022 WBC Auto (Urine sed) [#/Area] Innumerable [HPF] 0-4 [facility] Automated urine color determ inationOrdered By: Nettie Iqbal on 11-20-2022 Color (U) Yellow Normal Yellow [facility] Comment on above: Order Comment: Name Collection Type:: Collection Method Unknown Performed By: #### C UU, ADDONUAPLUS #### [facility] [address] Automated urine sediment jaime cium oxalate crystal count by microscopy (number/high powOrdered By: Nettie Iqbal on 11-20-2022 Calcium oxalate crystals LM.HPF (Urine sed) [#/Area] Rare [HPF] [facility] Bilirubin Test strip Ql (U)O rdered By: Nettie Iqbal on 11-20-2022 Bilirubin Ql (U) Negative Negative [facility] Casts typing in urine sedime nt by light microscopyOrdered By: Nettie Iqbal on 11-20-2022 Casts LM Nom (Urine sed) None seen [LPF] None Seen [facility] Dipstick and Microscopicon 0 11-20-2022 Appearance (U) Turbid Critically abnormal Clear [facility] Comment on above: Order Comment: Name Collection Type:: Collection Method Unknown Performed By: #### C UU, ADDONUAPLUS #### [place] [address] [place] Bacteria,Urine 4+ High None Seen [facility] Comment on above: Order Comment: Name Collection Type:: Collection Method Unknown Performed By: #### C UU, ADDONUAPLUS #### [place] [id number] [place] Bilirubin,Urine Negative Normal Negative [facility] Comment on above: Order Comment: Name Collection Type:: Collection Method Unknown Performed By: #### C UU, ADDONUAPLUS #### [place] [id number] [place] Calcium Oxalate Crystals,Urine Rare Normal [facility] Comment on above: Order Comment: Name Collection Type:: Collection Method Unknown Performed By: #### C UU, ADDONUAPLUS #### [facility] [address] [place], [place] [id number] [place] Glucose Ql (U) Normal Normal Normal [facility] Comment on above: Order Comment: Name Collection Type:: Collection Method Unknown Performed By: #### C UU, ADDONUAPLUS #### [facility] [address] [place], [place] [id number] [place] Hyaline Casts,Urine None Seen Normal 0-8 [facility] Comment on above: Order Comment: Name Collection Type:: Collection Method Unknown Performed By: #### C UU, ADDONUAPLUS #### [facility] [address] [place], [place] [id number] [place] Ketones Ql (U) 1+ High Negative [facility] Comment on above: Order Comment: Name Collection Type:: Collection Method Unknown Performed By: #### C UU, ADDONUAPLUS #### [address] Leukocyte esterase Test strip Ql (U) 4+ High Negative [facility] Comment on above: Order Comment: Name Collection Type:: Collection Method Unknown Performed By: #### C UU, ADDONUAPLUS #### [place] [address] [place] Nitrite,Urine Negative Normal Negative [facility] Comment on above: Order Comment: Name Collection Type:: Collection Method Unknown Performed By: #### C UU, ADDONUAPLUS #### [place] [address] [place] Occult Blood,Urine 3+ High Negative [facility] Comment on above: Order Comment: Name Collection Type:: Collection Method Unknown Result Comment: PERF ORMED BY: [place] [address] PATHOLOGIST GRANULATOR TENDER SHELTON NEVAREZ M.D. Performed By: #### C UU, ADDONUAPLUS #### [address] Other Casts,Urine None Seen Normal None Seen [facility] Comment on above: Order Comment: Name Collection Type:: Collection Method Unknown Result Comment: PERF ORMED BY: [place] [address] PATHOLOGIST GRANULATOR TENDER SHELTON NEVAREZ M.D. Performed By: #### C UU, ADDONUAPLUS #### [address] Protein,Urine Trace High Negative [facility] Comment on above: Order Comment: Name Collection Type:: Collection Method Unknown Performed By: #### C UU, ADDONUAPLUS #### [place] [address] [place] RBC,Urine 20-49 High 0-4 [facility] Comment on above: Order Comment: Name Collection Type:: Collection Method Unknown Performed By: #### C UU, ADDONUAPLUS #### [address] Specificy [place],Urine 1.008 Normal 1.001-1.030 [facility] Comment on above: Order Comment: Name Collection Type:: Collection Method Unknown Performed By: #### C UU, ADDONUAPLUS #### [address] Squamous Epithelial Cell,Urine 1-2 Normal 0-2 [facility] Comment on above: Order Comment: Name Collection Type:: Collection Method Unknown Performed By: #### C UU, ADDONUAPLUS #### [address] Urobilinogen,Urine Normal Normal Normal [facility] Comment on above: Order Comment: Name Collection Type:: Collection Method Unknown Performed By: #### C UU, ADDONUAPLUS #### [address] WBC,Urine Innumerable High 0-4 [facility] Comment on above: Order Comment: Name Collection Type:: Collection Method Unknown Performed By: #### C UU, ADDONUAPLUS #### [address] Ketones Auto test strip (U) [Mass/Vol]Ordered By: Nettie Iqbal on 11-20-2022 Ketones (U) [Mass/Vol] 1+ Negative [facility] - UrinalysisOrder ed By: Nettie Iqbal on 11-20-2022 Hyaline casts LM Ql (Urine sed) None seen [LPF] 0-8 [facility] Nitrite Test strip Ql (U)Ord ered By: Nettie Iqbal on 11-20-2022 Nitrite Ql (U) Negative Negative [facility] Protein Auto test strip (U) [Mass/Vol]Ordered By: Nettie Iqbal on 11-20-2022 Protein (U) [Mass/Vol] Trace mg/dL Negative [facility] Specific gravity Auto test s trip (U) [Rel density]Ordered By: Nettie Iqbal on 11-20-2022 Specific gravity (U) [Rel density] 1.008 1.001-1.030 [facility] Squamous epithelial cells de tection in urine sediment by light microscopyOrdered By: Nettie Iqbal on 11-20-2022 Epithelial cells.squamous LM Ql (Urine sed) 1-2 [HPF] 0-2 [facility] Urine Cultureon 11-20-2022 Bacteria identified Cx Nom (U) ORGANISM: Klebsiella oxytoca (O:KLEOXY) [place] Count >100,000 Aerobic ARIEL Charge (NMIC56) ------ [...] RESISTANT TO ALL B-LACTAM DRUGS. PERFORMED BY: [facility] [address] [place] [address] PATHOLOGIST GRANULATOR TENDER SHELTON NEVAREZ M.D. Normal [facility] Comment on above: Performed By: #### C JONATHAN HERRING #### [facility] [address] Urine bacteria detection by automated methodOrdered By: Nettie Iqbal on 11-20-2022 Bacteria Auto Ql (U) 4+ None Seen [facility] Urine clarity by refractomet ry automatedOrdered By: Nettie Iqbal on 11-20-2022 Clarity Refractometry automated (U) Turbid Clear [facility] Urine culture routineOrdered By: Nettie Iqbal on 11-20-2022 Bacteria identified Cx Nom (U) Klebsiella oxytoca [facility] Urine glucose measurement by automated test strip (mass/volume)Ordered By: Nettie Iqbal on 11-20-2022 Glucose Auto test strip (U) [Mass/Vol] Normal mg/dL Normal [facility] Urine hemoglobin detection b y automated test stripOrdered By: Nettie Iqbal on 11-20-2022 Hemoglobin Auto test strip Ql (U) 3+ Negative [facility] Urine leukocyte esterase det ection by automated test stripOrdered By: Nettie Iqbal on 11-20-2022 Leukocyte esterase Auto test strip Ql (U) 4+ Negative [facility] Urine pH measurement by auto mated test stripOrdered By: Nettie Iqbal on 11-20-2022 pH (U) 7.5 [pH] Normal 5.0-9.0 [facility] Comment on above: Order Comment: Name Collection Type:: Collection Method Unknown Performed By: #### C JONATHAN HERRING #### [address] Urobilinogen Auto test strip (U) [Mass/Vol]Ordered By: Nettie Iqbal on 11-20-2022 Urobilinogen (U) [Mass/Vol] Normal mg/dL Normal [facility] MR MRCPon 11-09-2022 MR MRCP [facility] [address] [place] [address] [place] [address] MRI Report Signed Patient: Afia Maxwell MR#: [id number] : 1955 Acct:[id number] Age/Sex: 67 / F ADM Date: 11/09/22 Loc: MR Room: Type: [facility] Attending Dr: Kiran Amaya MD Copies to: [...] SUGGESTED. Impression dictated by: Handy Zhou Jr., D.OGerry11/09/2022 10:49 AM Dictation Location: [place] [address] Transcribed By: [facility] 11/09/22 1049 Dictated By: Handy Zhou Jr, DO 11/09/22 1033 Signed By: 11/09/22 1049 Normal [facility] COVID Quick Testingon 2022 Result Negative [employer] Other PROF CHEM 8 (BAS METB)on Anion gap [Moles/Vol] 18.4 mmol/L Normal [facility] Comment on above: Performed By: #### B MP, TSH #### [facility] [address] [place] [address] Dr. David Cannon Calcium [Mass/Vol] 9.5 mg/dL Normal 8.5-10.1 [facility] Comment on above: Performed By: #### B NILSA, TSH #### [facility] [address] [place] [address] [address] David Cannon Chloride [Moles/Vol] 104 mmol/L Normal 98-107 [facility] Comment on above: Performed By: #### B NILSA, TSH #### [facility] [address] [place] [address] [address] David Cannon CO2 [Moles/Vol] 23.5 mmol/L Normal 21.0-32.0 [facility] Comment on above: Performed By: #### B NILSA, TSH #### [facility] [address] [place] [address] Dr. David Cannon Creatinine [Mass/Vol] 0.87 mg/dL Normal 0.55-1.02 [facility] Comment on above: Performed By: #### B NILSA, TSH #### [facility] [address] [place] [address] [address] David Cannon EGFR-AF INDONESIAN >60 Normal >=60 [facility] Comment on above: Performed By: #### B NILSA, TSH #### [facility] [address] [place] [address] Dr. David Cannon EGFR-NON AF INDONESIAN >60 Normal >=60 [facility] Comment on above: Performed By: #### B NILSA, TSH #### [facility] [address] [place] [address] [address] David Cannon Glucose [Mass/Vol] 142 mg/dL Critically high 74-106 [facility] Comment on above: Performed By: #### B NILSA, TSH #### [facility] [address] [place] [address] [address] David Cannon Potassium [Moles/Vol] 3.9 mmol/L Normal 3.5-5.1 [facility] Comment on above: Performed By: #### B NILSA, TSH #### [facility] [address] [place] [address] [address] David Cannon Sodium [Moles/Vol] 142 mmol/L Normal 136-145 [facility] Comment on above: Performed By: #### B MP, TSH #### [facility] [address] [place] [address] [address] David Cannon Urea nitrogen [Mass/Vol] 15.0 mg/dL Normal 7.0-18.0 [facility] Comment on above: Performed By: #### B MP, TSH #### [facility] [address] [address] [address] David Cannon Urea nitrogen/Creatinine [Mass ratio] 17.2 mg/mg Normal [facility] Comment on above: Performed By: #### B NILSA, TSH #### [facility] [address] [address] [address] David Cannon TSHon 07-27-2022 TSH 1.753 uIU/mL Normal 0.358-3.[address] [facility] Comment on above: Performed By: #### B NILSA, TSH #### [facility] [address] [address] [address] David Cannon VITAMIN B12on 07-27-2022 Cobalamin (Vitamin B12) [Mass/Vol] 938.0 pg/mL Normal 193.0-986.0 [facility] Comment on above: Performed By: #### V ITB12 ####[facility] [address] [id number]. David aCnnon VITAMIN D 25 OHon 07-27-2022 VIT D 25-OH 45.3 ng/mL Normal [facility] Comment on above: Performed By: #### V ITAD ####[facility] [address] [id number]. David Cannon VIT D RANGES SEE BELOW Normal [facility] Comment on above: Result Comment: <20 ng/mL Vit D deficient 20 - <30 ng/mL Vit D insufficient 30 - 100 ng/mL Vit D sufficient >100 ng/mL Potential Toxicity Performed By: #### V ITAD ####[facility] [address] [id number]. David Cannon XR HIP RT 2 3V [...] by: JANNA HASSAN Date: 2022-07-27 21:48 Normal [facility] MG MAMM SCREEN 3D ERIC CADon 07-20-2022 MG MAMM SCREEN 3D ERIC CAD Patient: AFIA MAXWELL Exam Date: 07/20/2022 : 1955 Gender:F Ordering : DR PHANI PRUITT D.O. Admission #: [id number] Family : Order #: [id number] CLICK HERE TO VIEW EXAM RADIOLOGY REPORT [...] colon cancer at age 72. LOCATION: [facility] BREAST COMPOSITION: Scattered areas fibroglandular density. [...] Cormier M.D. on 07/20/2022 at 14:09 Normal [facility] XR DEXA BONE DENSITYon 07-20 XR [...] by: CELIA CORMIER Date: 2022-07-20 14:26 Normal [facility] Urinalysis - AUTOMATEDon Appearance (U) clear PPS Other Bilirubin Ql (U) Negative FindMySong Other Color (U) yellow vChatter Other Glucose Ql (U) Negative PPS Other Hemoglobin Ql (U) Negative eTobb Other Ketones Ql (U) Negative PPS Other Leukocyte esterase Test strip Ql (U) Negative vChatter Other Nitrite Ql (U) Negative PPS Other pH (U) 5.5 [pH] vChatter Other Protein Ql (U) Negative PPS Other Specific gravity (U) [Rel density] 1.025 vChatter Other Urobilinogen (U) [Mass/Vol] 0.2 mg/dL vChatter Other Urinalysis - AUTOMATED No rtFuelMiner Other XR TSPINE 2 VIEWSon 06-17-19 23 [...] CELIA CORMIER Date: 2022-06-16 13:46 Normal [facility] BNPon 06-07-2022 Natriuretic peptide B (Bld) [Mass/Vol] 68.0 pg/mL Normal <=900.0 [facility] Comment on above: Performed By: #### C RP, CMP, BNP ####[facility] [address] [address]Dr. David Cannon CBC AUTO DIFFon 06-07-2022 BASO # 0.0 103/ul Normal 0.0-0.1 [facility] Comment on above: Performed By: #### C BC ####[facility] [address] [address]Dr. David Cannon Basophils/100 WBC (Bld) 0.5 % Normal 0.2-2.0 [facility] Comment on above: Performed By: #### C BC ####[facility] [address] [address]Dr. David Cannon EO # 0.2 103/ul Normal 0.0-0.7 [facility] Comment on above: Performed By: #### C BC ####[facility] [address] [place], [place] [address]Dr. David Cannon Eosinophils/100 WBC (Bld) 2.0 % Normal 0.9-7.0 [facility] Comment on above: Performed By: #### C BC ####[facility] [address] [place], [place] [address]Dr. David Cannon Erythrocyte distribution width (RBC) [Ratio] 12.3 % Normal 11.0-15.0 [facility] Comment on above: Performed By: #### C BC ####[facility] [address] [address]Dr. David Cannon Hematocrit (Bld) [Volume fraction] 44.4 % Normal 36.0-48.0 [facility] Comment on above: Performed By: #### C BC ####[facility] [address] [place], [place] [address]Dr. David Cannon Hemoglobin (Bld) [Mass/Vol] 14.3 g/dL Normal 12.0-16.0 [facility] Comment on above: Performed By: #### C BC ####[facility] [address] [place], [place] [address]Dr. David Cannon IG # 0.01 10e3/ul Normal 0.00-0.03 [facility] Comment on above: Performed By: #### C BC ####[facility] [address] [place], [place] [address]Dr. Janellbraeden Cannon IG % 0.1 % Normal 0.0-0.5 [facility] Comment on above: Performed By: #### C BC ####[facility] [address] [place], [place] [address]Dr. Janellbraeden Cannon LYMPH # 2.7 103/ul Normal 1.2-3.8 [facility] Comment on above: Performed By: #### C BC ####[facility] [address] [place], [place] [address]Dr. Janellbraeden Cannon Lymphocytes/100 WBC (Bld) 37.0 % Normal 20.5-60.0 [facility] Comment on above: Performed By: #### C BC ####[facility] [address] [place], [place] [address]Dr. David Cannon MANUAL DIFF REQ NO Normal [facility] Comment on above: Performed By: #### C BC ####[facility] [address] [place], [place] [address]Dr. David Cannon MCH (RBC) [Entitic mass] 31.4 pg Normal 26.7-34.0 [facility] Comment on above: Performed By: #### C BC ####[facility] [address] [address]Dr. David Cannon MCHC (RBC) [Mass/Vol] 32.2 g/dL Normal 29.9-35.2 [facility] Comment on above: Performed By: #### C BC ####[facility] [address] [place], [place] [address]Dr. David Davis MCV (RBC) [Entitic vol] 97.4 fL Normal 81.0-99.0 [facility] Comment on above: Performed By: #### C BC ####[facility] [address] [place], [place] [address]Dr. David Cannon MONO # 0.6 103/ul Normal 0.3-0.8 [facility] Comment on above: Performed By: #### C BC ####[facility] [address] [place], [place] [address]Dr. Janellbraeden Cannon Monocytes/100 WBC (Bld) 7.8 % Normal 1.7-12.0 [facility] Comment on above: Performed By: #### C BC ####[facility] [address] [place], [place] [address]Dr. David Cannon NEUT # 3.9 103/ul Normal 1.4-6.5 [facility] Comment on above: Performed By: #### C BC ####[facility] [address] [place], [place] [address]Dr. David Cannon Neutrophils/100 WBC (Bld) 52.6 % Normal 43.0-75.0 [facility] Comment on above: Performed By: #### C BC ####[facility] [address] [place], [place] [address]Dr. David Cannon Platelet mean volume (Bld) [Entitic vol] 9.0 fL Critically low 9.5-13.5 [facility] Comment on above: Performed By: #### C BC ####[facility] [address] [id number]. David Cannon PLT 233 103/ul Normal 150-450 [facility] Comment on above: Performed By: #### C BC ####[facility] [address] [address]Dr. David Cannon RBC 4.56 106/ul Normal 4.20-5.40 [facility] Comment on above: Performed By: #### C BC ####[facility] [address] [id number]. Janellbraeden Cannon WBC 7.4 103/ul Normal 4.0-11.0 [facility] Comment on above: Performed By: #### C BC ####[facility] [address] [address]Dr. David Cannon CRPon 06-07-2022 CRP [Mass/Vol] mg/L Normal <=1.0 [facility] Comment on above: Performed By: #### C RP, CMP, BNP ####[facility] [address] [address]Dr. David Cannon CULTURE URINEon 06-07-2022 CULTURE URINE Culture Observations: LIGHT GROWTH OF MIXED GENITAL ANISHA. NO POTENTIAL PATHOGENS SEEN. Normal [facility] Comment on above: Performed By: #### U RCX ####[facility] [address] [address]Dr. David Cannon ER URINE PROFILEon 3 Bilirubin Ql (U) Negative Normal NEGATIVE [facility] Comment on above: Performed By: #### B MP, TSH #### [facility] [address] [place] [address] Dr. David Cannon Clarity (U) CLEAR Normal CLEAR [facility] Comment on above: Performed By: #### B MP, TSH #### [facility] [address] [place] [address] Dr. David Cannon Color (U) LT. YELLOW Normal YELLOW [facility] Comment on above: Performed By: #### B MP, TSH #### [facility] [address] [place] [address] Dr. David OWEN A micrscopic examination will be performed if indicated. Normal [facility] Comment on above: Performed By: #### B MP, TSH #### [facility] [address] [place] [address] Dr. David Cannon Glucose Ql (U) Negative Normal NEGATIVE [facility] Comment on above: Performed By: #### B MP, TSH #### [facility] [address] [place] [address] Dr. David Cannon Hemoglobin Ql (U) Negative Normal NEGATIVE [facility] Comment on above: Performed By: #### B MP, TSH #### [facility] [address] [place] [address] Dr. David Cannon Ketones Ql (U) Negative Normal NEGATIVE [facility] Comment on above: Performed By: #### B MP, TSH #### [facility] [address] [place] [address] Dr. David Cannon LEUKOCYTES SMALL Abnormal NEGATIVE [facility] Comment on above: Performed By: #### B MP, TSH #### [facility] [address] [place] [address] Dr. David Cannon Nitrite Ql (U) Negative Normal NEGATIVE [facility] Comment on above: Performed By: #### B MP, TSH #### [facility] [address] [place] [address] Dr. David Cannon pH (U) 6.0 [pH] Normal 5-9 [facility] Comment on above: Performed By: #### B MP, TSH #### [facility] [address] [place] [address] Dr. David Cannon SPEC GRAVITY 1.010 Normal 1.005-<=1.02 5 [facility] Comment on above: Performed By: #### B MP, TSH #### [facility] [address] [place] [address] Dr. David Cannon UA PROTEIN Negative Normal NEGATIVE/ TRACE [facility] Comment on above: Performed By: #### B MP, TSH #### [facility] [address] [place] [address] Dr. David Cannon UR MICRO IND INDICATED Normal [facility] Comment on above: Performed By: #### B MP, TSH #### [facility] [address] [address] [address] David Cannon Urobilinogen Qn (U) 0.2 {Skip'U}/dL Normal 0.2 - 1. 0 [facility] Comment on above: Performed By: #### B MP, TSH #### [facility] [address] [address] [address] David Cannon PROF 14(COMP METB)on 023 Albumin [Mass/Vol] 4.3 g/dL Normal 3.4-5.0 [facility] Comment on above: Performed By: #### C RP, CMP, BNP ####[facility] [address] [address]Dr. David Cannon Albumin/Globulin [Mass ratio] 1.1 {ratio} Normal [facility] Comment on above: Performed By: #### C RP, CMP, BNP ####[facility] [address] [address]Dr. David Cannon ALP [Catalytic activity/Vol] 82 U/L Normal 46-116 [facility] Comment on above: Performed By: #### C RP, CMP, BNP ####[facility] [address] [address]Dr. David Cannon ALT [Catalytic activity/Vol] 21 U/L Normal 14-59 [facility] Comment on above: Performed By: #### C RP, CMP, BNP ####[facility] [address] [address]Dr. David Cannon Anion gap [Moles/Vol] 12.3 mmol/L Normal [facility] Comment on above: Performed By: #### C RP, CMP, BNP ####[facility] [address] [address]Dr. David Cannon AST [Catalytic activity/Vol] 15 U/L Normal 15-37 [facility] Comment on above: Performed By: #### C RP, CMP, BNP ####[facility] [address] [address]Dr. David Cannon Bilirubin [Mass/Vol] 0.2 mg/dL Normal 0.2-1.0 [facility] Comment on above: Performed By: #### C RP, CMP, BNP ####[facility] [address] [address]Dr. David Cannon Calcium [Mass/Vol] 9.2 mg/dL Normal 8.5-10.1 [facility] Comment on above: Performed By: #### C RP, CMP, BNP ####[facility] [address] [address]Dr. David Cannon Chloride [Moles/Vol] 104 mmol/L Normal 98-107 [facility] Comment on above: Performed By: #### C RP, CMP, BNP ####[facility] [address] [place], [place] [address]Dr. David Cannon CO2 [Moles/Vol] 31.2 mmol/L Normal 21.0-32.0 [facility] Comment on above: Performed By: #### C RP, CMP, BNP ####[facility] [address] [place], [place] [address]Dr. David Cannon Creatinine [Mass/Vol] 0.52 mg/dL Critically low 0.55-1.02 [facility] Comment on above: Performed By: #### C RP, CMP, BNP ####[facility] [address] [place], [place] [address]Dr. David Cannon EGFR-AF INDONESIAN >60 Normal >=60 [facility] Comment on above: Performed By: #### C RP, CMP, BNP ####[facility] [address] [place], [place] [address]Dr. David Cannon EGFR-NON AF INDONESIAN >60 Normal >=60 [facility] Comment on above: Performed By: #### C RP, CMP, BNP ####[facility] [address] [place], [place] [address]Dr. David Cannon Globulin (S) [Mass/Vol] 3.9 g/dL Normal T [facility] Comment on above: Performed By: #### C RP, CMP, BNP ####[facility] [address] [address]Dr. David Cannon Glucose [Mass/Vol] 79 mg/dL Normal 74-106 [facility] Comment on above: Performed By: #### C RP, CMP, BNP ####[facility] [address] [address]Dr. David Cannon Potassium [Moles/Vol] 3.5 mmol/L Normal 3.5-5.1 [facility] Comment on above: Performed By: #### C RP, CMP, BNP ####[facility] [address] [address]Dr. David Cannon Protein [Mass/Vol] 8.2 g/dL Normal 6.4-8.2 [facility] Comment on above: Performed By: #### C RP, CMP, BNP ####[facility] [address] [address]Dr. David Cannon Sodium [Moles/Vol] 144 mmol/L Normal 136-145 [facility] Comment on above: Performed By: #### C RP, CMP, BNP ####[facility] [address] [address]DrGerry Cannon Urea nitrogen [Mass/Vol] 16.0 mg/dL Normal 7.0-18.0 [facility] Comment on above: Performed By: #### C RP, CMP, BNP ####[facility] [address] [address]DrGerry Cannon Urea nitrogen/Creatinine [Mass ratio] 30.8 mg/mg Normal [facility] Comment on above: Performed By: #### C RP, CMP, BNP ####[facility] [address] [address]Dr. David Cannon PROTIMEon 06-07-2022 INR Coag (PPP) [Relative time] {INR} Normal [facility] Comment on above: Performed By: #### A NARF #### [facility] [address] [address] [address] David Cannon INR GUIDELINES SEE BELOW Normal [facility] Comment on above: Result Comment: USRY RED INR: 2.0 - 3.0 CONDITIONS NOT LISTED BELOW 2.5 - 3.5 FOR PROSTHETIC HEART VALVE REPLACEMENT 2.5 - 3.5 RECURRENT THROMBOSIS Performed By: #### A NARF #### [facility] [address] [place] [address] Dr. David Cannon PT Coag (PPP) [Time] 9.6 s Normal 9.0-11.6 [facility] Comment on above: Performed By: #### A NARF #### [facility] [address] [place] [address] Dr. David Cannon PTTon 06-07-2022 aPTT Coag (Bld) [Time] 25.6 s Normal 22.3-36.2 [facility] Comment on above: Performed By: #### A NARF #### [facility] [address] [place] [address] Dr. David Cannon SED RATE WESTERGRENon 2022 SED RATE 21 mm/hr Normal <=30 [facility] Comment on above: Performed By: #### S EDR ####[facility] [address] [address]Dr. David Cannon URINE MICROSCOPIC ONLYon BACTERIA SMALL Abnormal NONE SEEN [facility] Comment on above: Performed By: #### B MP, TSH #### [facility] [address] [place] [address] Dr. David Cannon Bacteria identified Cx Nom (U) INDICATED Normal [facility] Comment on above: Performed By: #### B MP, TSH #### [facility] [address] [place] [address] Dr. David Cannon CAST NONE SEEN Normal NONE SEEN [facility] Comment on above: Performed By: #### B MP, TSH #### [facility] [address] [place] [address] Dr. David Cannon Crystals LM Nom (Urine sed) NONE SEEN Normal NONE SEEN [facility] Comment on above: Performed By: #### B MP, TSH #### [facility] [address] [place] [address] Dr. David Cannon Epithelial cells LM Ql (Urine sed) FEW Abnormal NONE SEEN /RARE [facility] Comment on above: Performed By: #### B MP, TSH #### [facility] [address] [place] [address] Dr. David Cannon MUCOUS NONE SEEN Normal NONE SEEN [facility] Comment on above: Performed By: #### B MP, TSH #### [facility] [address] [place] [address] Dr. David Cannon RBC 0-2 Normal 0-2 [facility] Comment on above: Performed By: #### B MP, TSH #### [facility] [address] [place] [address] Dr. David Cannon WBC 5-10 Abnormal NONE SEEN [facility] Comment on above: Performed By: #### B MP, TSH #### [facility] [address] [place] [address] Dr. David Cannon NISHI EIA W/REFLEX 5 BIOMARKER Son 05-30-2022 NISHI Direct Negative Normal Negative [facility] Comment on above: Performed By: #### A NARF #### [facility] [address] [place] [address] Dr. David Cannon C-Reactive Proteinon 023 C-Reactive Protein 0.3 mg/dL <=1.0 mg/dL vChatter Other CBC AUTO DIFFon 05-29-2022 BASO # 0.0 103/ul Normal 0.0-0.1 [facility] Comment on above: Performed By: #### A NARF #### [facility] [address] [place] [address] Dr. David Cannon Basophils/100 WBC (Bld) 0.3 % Normal 0.2-2.0 [facility] Comment on above: Performed By: #### A NARF #### [facility] [address] [place] [address] Dr. David Cannon EO # 0.1 103/ul Normal 0.0-0.7 [facility] Comment on above: Performed By: #### A NARF #### [facility] [address] [place] [address] Dr. David Cannon Eosinophils/100 WBC (Bld) 1.7 % Normal 0.9-7.0 [facility] Comment on above: Performed By: #### A NARF #### [facility] [address] [place] [address] Dr. David Cannon Erythrocyte distribution width (RBC) [Ratio] 12.0 % Normal 11.0-15.0 [facility] Comment on above: Performed By: #### A NARF #### [facility] [address] [place] [address] Dr. David Cannon Hematocrit (Bld) [Volume fraction] 43.9 % Normal 36.0-48.0 [facility] Comment on above: Performed By: #### A NARF #### [facility] [address] [place] [address] Dr. David Cannon Hemoglobin (Bld) [Mass/Vol] 14.0 g/dL Normal 12.0-16.0 [facility] Comment on above: Performed By: #### A NARF #### [facility] [address] [place] [address] Dr. David Cannon IG # 0.02 10e3/ul Normal 0.00-0.03 [facility] Comment on above: Performed By: #### A NARF #### [facility] [address] [place] [address] Dr. David Cannon IG % 0.3 % Normal 0.0-0.5 [facility] Comment on above: Performed By: #### A NARF #### [facility] [address] [place] [address] Dr. David Cannon LYMPH # 2.0 103/ul Normal 1.2-3.8 [facility] Comment on above: Performed By: #### A NARF #### [facility] [address] [place] [address] Dr. David Cannon Lymphocytes/100 WBC (Bld) 31.7 % Normal 20.5-60.0 [facility] Comment on above: Performed By: #### A NARF #### [facility] [address] [address] [address] David Cannon MANUAL DIFF REQ NO Normal [facility] Comment on above: Performed By: #### A NARF #### [facility] [address] [place] [address] Dr. David Cannon MCH (RBC) [Entitic mass] 30.8 pg Normal 26.7-34.0 [facility] Comment on above: Performed By: #### A NARF #### [facility] [address] [place] [address] Dr. David Cannon MCHC (RBC) [Mass/Vol] 31.9 g/dL Normal 29.9-35.2 [facility] Comment on above: Performed By: #### A NARF #### [facility] [address] [place] [address] Dr. David Cannon MCV (RBC) [Entitic vol] 96.5 fL Normal 81.0-99.0 [facility] Comment on above: Performed By: #### A NARF #### [facility] [address] [place] [address] Dr. David Cannon MONO # 0.4 103/ul Normal 0.3-0.8 [facility] Comment on above: Performed By: #### A NARF #### [facility] [address] [place] [address] Dr. David Cannon Monocytes/100 WBC (Bld) 6.2 % Normal 1.7-12.0 [facility] Comment on above: Performed By: #### A NARF #### [facility] [address] [place] [address] Dr. David Cannon NEUT # 3.9 103/ul Normal 1.4-6.5 [facility] Comment on above: Performed By: #### A NARF #### [facility] [address] [place] [address] Dr. David Cannon Neutrophils/100 WBC (Bld) 59.8 % Normal 43.0-75.0 [facility] Comment on above: Performed By: #### A NARF #### [facility] [address] [address] [address] David Cannon Platelet mean volume (Bld) [Entitic vol] 8.7 fL Critically low 9.5-13.5 [facility] Comment on above: Performed By: #### A NARF #### [facility] [address] [address] [address] David Cnanon PLT 263 103/ul Normal 150-450 [facility] Comment on above: Performed By: #### A NARF #### [facility] [address] [address] [address] David Cannon RBC 4.55 106/ul Normal 4.20-5.40 [facility] Comment on above: Performed By: #### A NARF #### [facility] [address] [address] [address] David Cannon WBC 6.4 103/ul Normal 4.0-11.0 [facility] Comment on above: Performed By: #### A NARF #### [facility] [address] [address] [address] David Cannon CRPon 05-29-2022 CRP 0.3 mg/dL Normal <=1.0 [facility] Comment on above: Performed By: #### C RP, CMP ####[facility] [address] [address]Dr. David Cannon Complete Blood Count and Dif jin 05-29-2022 Anisocytosis Ql (Bld) Nor [facility] [employer] Other Basophilic stippling LM Ql (Bld) [facility] [employer] Other RBC morphology finding Nom (Bld) [place] [employer] Other Complete Blood Count and Diff [facility] Other Comprehensive Metabolic Pane sincere 05-29-2022 Albumin/Globulin [Mass ratio] 0.9 {ratio} Normal [facility] Other Comment on above: Performed By: #### A NARF #### [facility] [address] [address] [address] David Cannon ALP [Catalytic activity/Vol] 79 U/L Normal 46-116 [employer] Other Comment on above: Performed By: #### A NARF #### [facility] [address] [address] [address] David Cannon ALT [Catalytic activity/Vol] 20 U/L Normal 14-59 [employer] Other Comment on above: Performed By: #### A NARF #### [facility] [address] [address] [address] David Cannon Anion gap [Moles/Vol] 12.7 mmol/L Normal No rt [employer] Other Comment on above: Performed By: #### A NARF #### [facility] [address] [place] [address] Dr. David Cannon AST [Catalytic activity/Vol] 20 U/L Normal 15-37 [employer] Other Comment on above: Performed By: #### A NARF #### [facility] [address] [place] [address] Dr. David Cannon Chloride [Moles/Vol] 102 mmol/L Normal 98-107 [place] [employer] Other Comment on above: Performed By: #### A NARF #### [facility] [address] [place] [address] Dr. David Cannon Urea nitrogen/Creatinine [Mass ratio] 29.0 mg/mg Normal [employer] Other Comment on above: Performed By: #### A NARF #### [facility] [address] [place] [address] Dr. David Cannon Albumin [Mass/Vol] 3.790949 g/dL 3.4-5.0 g/dL N [facility] [employer] Other Calcium [Mass/Vol] 9.5036255 mg/dL 8.5-10 .1 mg/dL [employer] Other CO2 [Moles/Vol] 31.83873195 mmol/L 21.0-3 2.0 mmol/L [employer] Other Creatinine [Mass/Vol] 0.50146644 mg/dL 0. 55-1.02 mg/dL [employer] Other Potassium [Moles/Vol] 4.76731377 mmol/L 3 .5-5.1 mmol/L [employer] Other Protein [Mass/Vol] 8.186787 g/dL 6.4-8.2 g/dL N [facility] [employer] Other Urea nitrogen [Mass/Vol] 18.8500045 mg/dL 7.0-18.0 mg/dL [employer] Other Comprehensive Metabolic Panel see note [employer] Other Comprehensive Metabolic Panel 142 mmol/L 136-145 mmol/L [employer] Other Comprehensive Metabolic Panel 102 mg/dL 74-106 mg/dL [employer] Other Comprehensive Metabolic Panel >60 mL/min/1.73m2 >=60 mL/min/1.73m 2 [employer] Other Comprehensive Metabolic Panel 0.2 mg/dL 0.2-1.0 mg/dL [employer] Other Comprehensive Metabolic Panel 4.3 g/dL [employer] Other PROF 14(COMP METB)on 023 Albumin [Mass/Vol] 3.8 g/dL Normal 3.4-5.0 [facility] Comment on above: Performed By: #### A NARF #### [facility] [address] [address] [address] David Cannon Bilirubin [Mass/Vol] 0.2 mg/dL Normal 0.2-1.0 [facility] Comment on above: Performed By: #### A NARF #### [facility] [address] [address] [address] David Cannon Calcium [Mass/Vol] 9.9 mg/dL Normal 8.5-10.1 [facility] Comment on above: Performed By: #### A NARF #### [facility] [address] [address] [address] David Cannon CO2 [Moles/Vol] 31.4 mmol/L Normal 21.0-32.0 [facility] Comment on above: Performed By: #### A NARF #### [facility] [address] [address] [address] David Cannon Creatinine [Mass/Vol] 0.62 mg/dL Normal 0.55-1.02 [facility] Comment on above: Performed By: #### A NARF #### [facility] [address] [place] [address] Dr. David Cannon EGFR-AF INDONESIAN >60 Normal >=60 [facility] Comment on above: Performed By: #### A NARF #### [facility] [address] [place] [address] Dr. David Cannon EGFR-NON AF INDONESIAN >60 Normal >=60 [facility] Comment on above: Performed By: #### A NARF #### [facility] [address] [place] [address] Dr. David Cannon Globulin (S) [Mass/Vol] 4.3 g/dL Normal [facility] Comment on above: Performed By: #### A NARF #### [facility] [address] [address] [address] David Cannon Glucose [Mass/Vol] 102 mg/dL Normal 74-106 [facility] Comment on above: Performed By: #### A NARF #### [facility] [address] [place] [address] Dr. David Cannon Potassium [Moles/Vol] 4.1 mmol/L Normal 3.5-5.1 [facility] Comment on above: Performed By: #### A NARF #### [facility] [address] [place] [address] Dr. David Cannon Protein [Mass/Vol] 8.1 g/dL Normal 6.4-8.2 [facility] Comment on above: Performed By: #### A NARF #### [facility] [address] [place] [address] Dr. David Cannon Sodium [Moles/Vol] 142 mmol/L Normal 136-145 [facility] Comment on above: Performed By: #### A NARF #### [facility] [address] [place] [address] Dr. David Cannon Urea nitrogen [Mass/Vol] 18.0 mg/dL Normal 7.0-18.0 [facility] Comment on above: Performed By: #### A NARF #### [facility] [address] [place] [address] Dr. David Cannon UA RANDOM W/MICROSCOPICon AMORPHOUS CRYSTALS RARE Normal [facility] Comment on above: Performed By: #### B NILSA, TSH #### [facility] [address] [place] [address] Dr. David Cannon BACTERIA NONE SEEN Normal NONE SEEN [facility] Comment on above: Performed By: #### B NILSA, TSH #### [facility] [address] [place] [address] Dr. David Cannon Bilirubin Ql (U) Negative Normal NEGATIVE [employer] Other Comment on above: Performed By: #### B NISLA, TSH #### [facility] [address] [place] [address] Dr. David Cannon CAST NONE SEEN Normal NONE SEEN [facility] Comment on above: Performed By: #### B MP, TSH #### [facility] [address] [place] [address] Dr. David Cannon Clarity (U) CLEAR Normal CLEAR [employer] Other Comment on above: Performed By: #### B MP, TSH #### [facility] [address] [place] [address] Dr. David Cannon Color (U) LT. YELLOW Normal YELLOW [employer] Other Comment on above: Performed By: #### B MP, TSH #### [facility] [address] [address] [address] David Cannon Crystals LM Nom (Urine sed) SEEN Abnormal NONE SEEN [facility] Comment on above: Performed By: #### B MP, TSH #### [facility] [address] [address] [address] David Cannon Epithelial cells LM Ql (Urine sed) RARE Normal NONE SEEN /RARE [facility] Comment on above: Performed By: #### B MP, TSH #### [facility] [address] [address] [address] David Cannon Glucose Ql (U) Negative Normal NEGATIVE [employer] Other Comment on above: Performed By: #### B MP, TSH #### [facility] [address] [place] [address] Dr. David Cannon Hemoglobin Ql (U) Negative Normal NEGATIVE [employer] Other Comment on above: Performed By: #### B MP, TSH #### [facility] [address] [address] [address] David Cannon Ketones Ql (U) Negative Normal NEGATIVE [employer] Other Comment on above: Performed By: #### B MP, TSH #### [facility] [address] [address] [address] David Cannon LEUKOCYTES Negative Normal NEGATIVE [facility] Comment on above: Performed By: #### B MP, TSH #### [facility] [address] [address] [address] David Cannon MUCOUS NONE SEEN Normal NONE SEEN [facility] Comment on above: Performed By: #### B MP, TSH #### [facility] [address] [address] [address] David Cannon Nitrite Ql (U) Negative Normal NEGATIVE [employer] Other Comment on above: Performed By: #### B MP, TSH #### [facility] [address] [place] [address] Dr. David Cannon pH (U) 7.0 [pH] Normal 5-9 [employer] Other Comment on above: Performed By: #### B MP, TSH #### [facility] [address] [place] [address] Dr. David Cannon RBC 0-2 Normal 0-2 [facility] Comment on above: Performed By: #### B MP, TSH #### [facility] [address] [place] [address] Dr. David Cannon SPEC GRAVITY 1.020 Normal 1.005-<=1.02 5 [facility] Comment on above: Performed By: #### B NILSA, TSH #### [facility] [address] [place] [address] Dr. David Cannon UA PROTEIN Negative Normal NEGATIVE/ TRACE [facility] Comment on above: Performed By: #### B NILSA, TSH #### [facility] [address] [place] [address] Dr. David Cannon Urobilinogen Qn (U) 0.2 {Skip'U}/dL Normal 0.2 - 1. 0 [facility] Comment on above: Performed By: #### B NILSA, TSH #### [facility] [address] [place] [address] Dr. David Cannon WBC NONE SEEN Normal NONE SEEN [facility] Comment on above: Performed By: #### B NILSA, TSH #### [facility] [address] [place] [address] Dr. David Cannon Crystals LM Nom (Urine sed) SEEN #/HPF Abnormal NONE SEEN #/HPF [employer] Other Epithelial cells LM Ql (Urine sed) RARE #/LPF NONE SEEN /RARE #/LPF [employer] Other UA RANDOM W/MICROSCOPIC 1.020 1.00 5-<=1.02 5 [employer] Other UA RANDOM W/MICROSCOPIC Negative NEGATIVE N [employer] Other UA RANDOM W/MICROSCOPIC 0.2 EU/dl 0.2 - 1.0 EU/dl [employer] Other UA RANDOM W/MICROSCOPIC NONE SEEN #/HPF N ONE SEEN #/HPF [employer] Other UA RANDOM W/MICROSCOPIC 0-2 #/HPF 0-2 #/HPF N [employer] Other UA RANDOM W/MICROSCOPIC NONE SEEN #/LPF N ONE SEEN #/LPF [employer] Other UA RANDOM W/MICROSCOPIC NONE SEEN NONE SEEN N [employer] Other UA RANDOM W/MICROSCOPIC RARE N [employer] Other CULTURE URINEon 04-13-2022 CULTURE URINE Isolate [...] Trimethoprim/Sulfam ethoxazole <=20 S F Normal [facility] Comment on above: Performed By: #### U RCX ####[facility] [id number] [address] David Cannon VAGINITIS/VAGINOSIS DNA PROB Hugo 04-12-2022 Susan species Negative Normal Negative [facility] Comment on above: Performed By: #### B MP, TSH #### [facility] [address] [address] [address] David Cannon Gardnerella vaginalis Negative Normal Negative [facility] Comment on above: Performed By: #### B MP, TSH #### [facility] [address] [address] [address] David Cannon Trichomonas vaginalis Negative Normal Negative [facility] Comment on above: Performed By: #### B MP, TSH #### [facility] [address] [place] [address] Dr. David Cannon BNPon 02-24-2022 Natriuretic peptide B (Bld) [Mass/Vol] 173.0 pg/mL Normal <=900.0 [facility] Comment on above: Performed By: #### B MP, TSH #### [facility] [address] [place] [address] Dr. David Cannon CARDIAC WAI 3-6on 2 CK [Catalytic activity/Vol] 47 U/L Normal 26-192 [facility] Comment on above: Performed By: #### B MP, TSH #### [facility] [address] [place] [address] Dr. David Cannon CK.MB [Mass/Vol] ng/mL Normal <=3.60 [facility] Comment on above: Performed By: #### B MP, TSH #### [facility] [address] [place] [address] Dr. David Cannon HSTROP 7.0 pg/mL Normal 4.0-51.3 [facility] Comment on above: Result Comment: CUT- OFF POINTS HAVE BEEN ESTABLISHED BASED ON THE FOURTH UNIVERSAL DEFINITIONS OF MYOCARDIAL INFARCTION. THE UPPER REFERENCE LIMIT (URL) OF TROPONIN, DEFINED THE 99TH PERCENTILE OF cTnI DISTRIBUTION IN A REFERENCE POPULATION, HAS BEEN CONFIRMED THE DECISION THRESHOLD FOR [place] DIAGNOSIS. Performed By: #### B MP, TSH #### [facility] [address] [place] [address] Dr. David Cannon CK [Catalytic activity/Vol] 44 U/L Normal 26-192 [facility] Comment on above: Performed By: #### B MP, TSH #### [facility] [address] [place] [address] Dr. David Cannon CK.MB [Mass/Vol] ng/mL Normal <=3.60 [facility] Comment on above: Performed By: #### B MP, TSH #### [facility] [address] [place] [address] Dr. David Cannon HSTROP 5.3 pg/mL Normal 4.0-51.3 [facility] Comment on above: Result Comment: CUT- OFF POINTS HAVE BEEN ESTABLISHED BASED ON THE FOURTH UNIVERSAL DEFINITIONS OF MYOCARDIAL INFARCTION. THE UPPER REFERENCE LIMIT (URL) OF TROPONIN, DEFINED THE 99TH PERCENTILE OF cTnI DISTRIBUTION IN A REFERENCE POPULATION, HAS BEEN CONFIRMED THE DECISION THRESHOLD FOR [place] DIAGNOSIS. Performed By: #### B MP, TSH #### [facility] [address] [place] [address] Dr. David Cannon CBC AUTO DIFFon 02-24-2022 BASO # 0.0 103/ul Normal 0.0-0.1 [facility] Comment on above: Performed By: #### C BC #### [facility] [address] [place] [address] Dr. David Cannon Basophils/100 WBC (Bld) 0.3 % Normal 0.2-2.0 [facility] Comment on above: Performed By: #### C BC #### [facility] [address] [place] [address] Dr. David Cannon EO # 0.2 103/ul Normal 0.0-0.7 [facility] Comment on above: Performed By: #### C BC #### [facility] [address] [place] [address] Dr. David Cannon Eosinophils/100 WBC (Bld) 2.6 % Normal 0.9-7.0 [facility] Comment on above: Performed By: #### C BC #### [facility] [address] [place] [address] Dr. David Cannon Erythrocyte distribution width (RBC) [Ratio] 12.1 % Normal 11.0-15.0 [facility] Comment on above: Performed By: #### C BC #### [facility] [address] [place] [address] Dr. David Cannon Hematocrit (Bld) [Volume fraction] 39.9 % Normal 36.0-48.0 [facility] Comment on above: Performed By: #### C BC #### [facility] [address] [place] [address] Dr. David Cannon Hemoglobin (Bld) [Mass/Vol] 13.2 g/dL Normal 12.0-16.0 [facility] Comment on above: Performed By: #### C BC #### [facility] [address] [place] [address] Dr. David Cannon IG # 0.01 10e3/ul Normal 0.00-0.03 [facility] Comment on above: Performed By: #### C BC #### [facility] [address] [place] [address] Dr. David Cannon IG % 0.2 % Normal 0.0-0.5 [facility] Comment on above: Performed By: #### C BC #### [facility] [address] [place] [address] Dr. David Cannon LYMPH # 2.8 103/ul Normal 1.2-3.8 [facility] Comment on above: Performed By: #### C BC #### [facility] [address] [place] [address] Dr. David Cannon Lymphocytes/100 WBC (Bld) 48.1 % Normal 20.5-60.0 [facility] Comment on above: Performed By: #### C BC #### [facility] [address] [place] [address] Dr. David Cannon MANUAL DIFF REQ NO Normal [facility] Comment on above: Performed By: #### C BC #### [facility] [address] [place] [address] Dr. David Cannon MCH (RBC) [Entitic mass] 31.6 pg Normal 26.7-34.0 [facility] Comment on above: Performed By: #### C BC #### [facility] [address] [place] [address] Dr. David Cannon MCHC (RBC) [Mass/Vol] 33.1 g/dL Normal 29.9-35.2 [facility] Comment on above: Performed By: #### C BC #### [facility] [address] [place] [address] Dr. David aCnnon MCV (RBC) [Entitic vol] 95.5 fL Normal 81.0-99.0 [facility] Comment on above: Performed By: #### C BC #### [facility] [address] [place] [address] Dr. David Cannon MONO # 0.4 103/ul Normal 0.3-0.8 [facility] Comment on above: Performed By: #### C BC #### [facility] [address] [place] [address] Dr. David Cannon Monocytes/100 WBC (Bld) 6.1 % Normal 1.7-12.0 [facility] Comment on above: Performed By: #### C BC #### [facility] [address] [place] [address] Dr. David Cannon NEUT # 2.5 103/ul Normal 1.4-6.5 [facility] Comment on above: Performed By: #### C BC #### [facility] [address] [place] [address] Dr. David Cannon Neutrophils/100 WBC (Bld) 42.7 % Critically low 43.0-75.0 [facility] Comment on above: Performed By: #### C BC #### [facility] [address] [place] [address] Dr. David Cannon Platelet mean volume (Bld) [Entitic vol] 8.7 fL Critically low 9.5-13.5 [facility] Comment on above: Performed By: #### C BC #### [facility] [address] [place] [address] Dr. David Cannon PLT 166 103/ul Normal 150-450 [facility] Comment on above: Performed By: #### C BC #### [facility] [address] [place], [place] [id number] Dr. David Cannon RBC 4.18 106/ul Critically low 4.20-5.40 [facility] Comment on above: Performed By: #### C BC #### [facility] [address] [place] [address] Dr. David Cannon WBC 5.7 103/ul Normal 4.0-11.0 [facility] Comment on above: Performed By: #### C BC #### [facility] [address] [address] [address] David Cannon PROF 14(COMP METB)on 02-24- 022 Albumin [Mass/Vol] 3.4 g/dL Normal 3.4-5.0 [facility] Comment on above: Performed By: #### B MP, TSH #### [facility] [address] [place] [address] Dr. David Cannon Albumin/Globulin [Mass ratio] 1.2 {ratio} Normal [facility] Comment on above: Performed By: #### B MP, TSH #### [facility] [address] [place] [address] Dr. David Cannon ALP [Catalytic activity/Vol] 60 U/L Normal 46-116 [facility] Comment on above: Performed By: #### B MP, TSH #### [facility] [address] [place] [address] Dr. David Cannon ALT [Catalytic activity/Vol] 16 U/L Normal 14-59 [facility] Comment on above: Performed By: #### B MP, TSH #### [facility] [address] [place] [address] Dr. David Cannon Anion gap [Moles/Vol] 10.5 mmol/L Normal [facility] Comment on above: Performed By: #### B MP, TSH #### [facility] [address] [address] [address] David Cannon AST [Catalytic activity/Vol] 17 U/L Normal 15-37 [facility] Comment on above: Performed By: #### B MP, TSH #### [facility] [address] [address] [address] David Cannon Bilirubin [Mass/Vol] 0.4 mg/dL Normal 0.2-1.0 [facility] Comment on above: Performed By: #### B MP, TSH #### [facility] [address] [address] [address] David Cannon Calcium [Mass/Vol] 8.8 mg/dL Normal 8.5-10.1 [facility] Comment on above: Performed By: #### B MP, TSH #### [facility] [address] [place] [address] Dr. David Cannon Chloride [Moles/Vol] 106 mmol/L Normal 98-107 [facility] Comment on above: Performed By: #### B MP, TSH #### [facility] [address] [place] [address] Dr. David Cannon CO2 [Moles/Vol] 28.4 mmol/L Normal 21.0-32.0 [facility] Comment on above: Performed By: #### B MP, TSH #### [facility] [address] [place] [address] Dr. David Cannon Creatinine [Mass/Vol] 0.61 mg/dL Normal 0.55-1.02 [facility] Comment on above: Performed By: #### B MP, TSH #### [facility] [address] [place] [address] Dr. David Cannon EGFR-AF INDONESIAN >60 Normal >=60 [facility] Comment on above: Performed By: #### B MP, TSH #### [facility] [address] [place] [address] Dr. David Cannon EGFR-NON AF INDONESIAN >60 Normal >=60 [facility] Comment on above: Performed By: #### B MP, TSH #### [facility] [address] [place] [address] Dr. David Cannon Globulin (S) [Mass/Vol] 2.9 g/dL Normal T [facility] Comment on above: Performed By: #### B MP, TSH #### [facility] [address] [place] [address] Dr. David Cannon Glucose [Mass/Vol] 79 mg/dL Normal 74-106 [facility] Comment on above: Performed By: #### B MP, TSH #### [facility] [address] [place] [address] Dr. David Cannon Potassium [Moles/Vol] 3.9 mmol/L Normal 3.5-5.1 [facility] Comment on above: Performed By: #### B MP, TSH #### [facility] [address] [place] [address] Dr. David Cannon Protein [Mass/Vol] 6.3 g/dL Critically low 6.4-8.2 [facility] Comment on above: Performed By: #### B MP, TSH #### [facility] [address] [place] [address] Dr. David Cannon Sodium [Moles/Vol] 141 mmol/L Normal 136-145 [facility] Comment on above: Performed By: #### B MP, TSH #### [facility] [address] [place] [address] Dr. David Cannon Urea nitrogen [Mass/Vol] 8.0 mg/dL Normal 7.0-18.0 [facility] Comment on above: Performed By: #### B NILSA, TSH #### [facility] [address] [place] [address] Dr. David Cannon Urea nitrogen/Creatinine [Mass ratio] 13.1 mg/mg Normal [facility] Comment on above: Performed By: #### B NILSA, TSH #### [facility] [address] [place] [address] Dr. David Cannon BNPon 02-23-2022 Natriuretic peptide B (Bld) [Mass/Vol] 124.0 pg/mL Normal <=900.0 [facility] Comment on above: Performed By: #### A NARF #### [facility] [address] [place] [address] Dr. David Cannon CARDIAC WAI 3-6on 2 CK [Catalytic activity/Vol] 44 U/L Normal 26-192 [facility] Comment on above: Performed By: #### B MP, TSH #### [facility] [address] [place] [address] Dr. David Cannon CK.MB [Mass/Vol] ng/mL Normal <=3.60 [facility] Comment on above: Result Comment: Prev iously reported as: 0.30 On 02/23/2022 20:39 By JAW Performed By: #### B NILSA, TSH #### [facility] [address] [address] [address] David Cannon HSTROP 6.1 pg/mL Normal 4.0-51.3 [facility] Comment on above: Result Comment: CUT- OFF POINTS HAVE BEEN ESTABLISHED BASED ON THE FOURTH UNIVERSAL DEFINITIONS OF MYOCARDIAL INFARCTION. THE UPPER REFERENCE LIMIT (URL) OF TROPONIN, DEFINED THE 99TH PERCENTILE OF cTnI DISTRIBUTION IN A REFERENCE POPULATION, HAS BEEN CONFIRMED THE DECISION THRESHOLD FOR [place] DIAGNOSIS. Performed By: #### B MP, TSH #### [facility] [address] [address] [address] David Cannon CK [Catalytic activity/Vol] 45 U/L Normal 26-192 [facility] Comment on above: Performed By: #### C MREP ####[facility] [id number] [address] David Cannon CK.MB [Mass/Vol] ng/mL Normal <=3.60 [facility] Comment on above: Performed By: #### C MREP ####[facility] [address] [id number]. David Cannon HSTROP 5.7 pg/mL Normal 4.0-51.3 [facility] Comment on above: Result Comment: CUT- OFF POINTS HAVE BEEN ESTABLISHED BASED ON THE FOURTH UNIVERSAL DEFINITIONS OF MYOCARDIAL INFARCTION. THE UPPER REFERENCE LIMIT (URL) OF TROPONIN, DEFINED THE 99TH PERCENTILE OF cTnI DISTRIBUTION IN A REFERENCE POPULATION, HAS BEEN CONFIRMED THE DECISION THRESHOLD FOR [place] DIAGNOSIS. Performed By: #### C MREP ####[facility] [address] [id number]. David Cannon CBC AUTO DIFFon 02-23-2022 BASO # 0.0 103/ul Normal 0.0-0.1 [facility] Comment on above: Performed By: #### B NILSA, TSH #### [facility] [address] [address] [address] David Cannon Basophils/100 WBC (Bld) 0.7 % Normal 0.2-2.0 [facility] Comment on above: Performed By: #### B MP, TSH #### [facility] [address] [place] [address] Dr. David Cannon EO # 0.1 103/ul Normal 0.0-0.7 [facility] Comment on above: Performed By: #### B MP, TSH #### [facility] [address] [place] [address] Dr. David Cannon Eosinophils/100 WBC (Bld) 1.1 % Normal 0.9-7.0 [facility] Comment on above: Performed By: #### B MP, TSH #### [facility] [address] [place] [address] Dr. David Cannon Erythrocyte distribution width (RBC) [Ratio] 12.2 % Normal 11.0-15.0 [facility] Comment on above: Performed By: #### B MP, TSH #### [facility] [address] [place] [address] Dr. David Cannon Hematocrit (Bld) [Volume fraction] 43.4 % Normal 36.0-48.0 [facility] Comment on above: Performed By: #### B MP, TSH #### [facility] [address] [place] [address] Dr. David Cannon Hemoglobin (Bld) [Mass/Vol] 14.4 g/dL Normal 12.0-16.0 [facility] Comment on above: Performed By: #### B MP, TSH #### [facility] [address] [place] [address] Dr. David Cannon IG # 0.01 10e3/ul Normal 0.00-0.03 [facility] Comment on above: Performed By: #### B MP, TSH #### [facility] [address] [place] [address] Dr. David Cannon IG % 0.2 % Normal 0.0-0.5 [facility] Comment on above: Performed By: #### B MP, TSH #### [facility] [address] [place] [address] Dr. David Cannon LYMPH # 1.5 103/ul Normal 1.2-3.8 [facility] Comment on above: Performed By: #### B MP, TSH #### [facility] [address] [address] [address] David Cannon Lymphocytes/100 WBC (Bld) 32.7 % Normal 20.5-60.0 [facility] Comment on above: Performed By: #### B MP, TSH #### [facility] [address] [place] [address] Dr. David Cannon MANUAL DIFF REQ NO Normal [facility] Comment on above: Performed By: #### B MP, TSH #### [facility] [address] [place] [address] Dr. David Cannon MCH (RBC) [Entitic mass] 31.4 pg Normal 26.7-34.0 [facility] Comment on above: Performed By: #### B MP, TSH #### [facility] [address] [place] [address] Dr. David Cannon MCHC (RBC) [Mass/Vol] 33.2 g/dL Normal 29.9-35.2 [facility] Comment on above: Performed By: #### B MP, TSH #### [facility] [address] [place] [address] Dr. David Cannon MCV (RBC) [Entitic vol] 94.8 fL Normal 81.0-99.0 [facility] Comment on above: Performed By: #### B MP, TSH #### [facility] [address] [place] [address] Dr. David Cannon MONO # 0.3 103/ul Normal 0.3-0.8 [facility] Comment on above: Performed By: #### B MP, TSH #### [facility] [address] [place] [address] Dr. David Cannon Monocytes/100 WBC (Bld) 5.9 % Normal 1.7-12.0 [facility] Comment on above: Performed By: #### B MP, TSH #### [facility] [address] [place] [address] Dr. David Cannon NEUT # 2.6 103/ul Normal 1.4-6.5 [facility] Comment on above: Performed By: #### B MP, TSH #### [facility] [address] [address] [address] David Cannon Neutrophils/100 WBC (Bld) 59.4 % Normal 43.0-75.0 [facility] Comment on above: Performed By: #### B MP, TSH #### [facility] [address] [address] [address] David Cannon Platelet mean volume (Bld) [Entitic vol] 8.6 fL Critically low 9.5-13.5 [facility] Comment on above: Performed By: #### B MP, TSH #### [facility] [address] [place] [address] Dr. David Cannon PLT 200 103/ul Normal 150-450 [facility] Comment on above: Performed By: #### B MP, TSH #### [facility] [address] [place] [address] Dr. David Cannon RBC 4.58 106/ul Normal 4.20-5.40 [facility] Comment on above: Performed By: #### B MP, TSH #### [facility] [address] [address] [address] David Cannon WBC 4.4 103/ul Normal 4.0-11.0 [facility] Comment on above: Performed By: #### B MP, TSH #### [facility] [address] [place] [address] Dr. David Cannon [facility]09 SARS-CoV-2 (COVID-19) RNA JOSH+probe Ql (Unsp spec) Not detected Normal NOT DETECTED [facility] Comment on above: Result Comment: When [...] for this test is supported by the Communications Engineer of Health and Human Service's declaration that [...] longer be used). Performed By: #### [facility] ####[facility] [address] [address]Dr. David Cannon LIPASEon 02-23-2022 Lipase [Catalytic activity/Vol] 85.0 U/L Normal 73.0-393.0 [facility] Comment on above: Performed By: #### A NARF #### [facility] [address] [place] [address] Dr. David Cannon PROF 14(COMP METB)on 022 Albumin [Mass/Vol] 4.2 g/dL Normal 3.4-5.0 [facility] Comment on above: Performed By: #### A NARF #### [facility] [address] [place] [address] Dr. David Cannon Albumin/Globulin [Mass ratio] 1.2 {ratio} Normal [facility] Comment on above: Performed By: #### A NARF #### [facility] [address] [place] [address] Dr. David Cannon ALP [Catalytic activity/Vol] 67 U/L Normal 46-116 [facility] Comment on above: Performed By: #### A NARF #### [facility] [address] [place] [address] Dr. David Cannon ALT [Catalytic activity/Vol] 19 U/L Normal 14-59 [facility] Comment on above: Performed By: #### A NARF #### [facility] [address] [place] [address] Dr. David Cannon Anion gap [Moles/Vol] 15.1 mmol/L Normal [facility] Comment on above: Performed By: #### A NARF #### [facility] [address] [address] [address] David Cannon AST [Catalytic activity/Vol] 18 U/L Normal 15-37 [facility] Comment on above: Performed By: #### A NARF #### [facility] [address] [address] [address] David Cannon Bilirubin [Mass/Vol] 0.3 mg/dL Normal 0.2-1.0 [facility] Comment on above: Performed By: #### A NARF #### [facility] [address] [address] [address] David Cannon Calcium [Mass/Vol] 9.7 mg/dL Normal 8.5-10.1 [facility] Comment on above: Performed By: #### A NARF #### [facility] [address] [place] [address] Dr. David Cannon Chloride [Moles/Vol] 103 mmol/L Normal 98-107 [facility] Comment on above: Performed By: #### A NARF #### [facility] [address] [address] [address] David Cannon CO2 [Moles/Vol] 29.0 mmol/L Normal 21.0-32.0 [facility] Comment on above: Performed By: #### A NARF #### [facility] [address] [address] [address] David Cannon Creatinine [Mass/Vol] 0.67 mg/dL Normal 0.55-1.02 [facility] Comment on above: Performed By: #### A NARF #### [facility] [address] [place] [address] Dr. David Cannon EGFR-AF INDONESIAN >60 Normal >=60 [facility] Comment on above: Performed By: #### A NARF #### [facility] [address] [place] [address] Dr. David Cannon EGFR-NON AF INDONESIAN >60 Normal >=60 [facility] Comment on above: Performed By: #### A NARF #### [facility] [address] [address] [address] David Cannon Globulin (S) [Mass/Vol] 3.6 g/dL Normal [facility] Comment on above: Performed By: #### A NARF #### [facility] [address] [place] [address] Dr. David Cannon Glucose [Mass/Vol] 130 mg/dL Critically high 74-106 [facility] Comment on above: Performed By: #### A NARF #### [facility] [address] [place] [address] Dr. David Cannon Potassium [Moles/Vol] 4.1 mmol/L Normal 3.5-5.1 [facility] Comment on above: Performed By: #### A NARF #### [facility] [address] [place] [address] Dr. David Cannon Protein [Mass/Vol] 7.8 g/dL Normal 6.4-8.2 [facility] Comment on above: Performed By: #### A NARF #### [facility] [address] [place] [address] Dr. David Cannon Sodium [Moles/Vol] 143 mmol/L Normal 136-145 [facility] Comment on above: Performed By: #### A NARF #### [facility] [address] [place] [address] Dr. David Cannon Urea nitrogen [Mass/Vol] 11.0 mg/dL Normal 7.0-18.0 [facility] Comment on above: Performed By: #### A NARF #### [facility] [address] [place] [address] Dr. David Cannon Urea nitrogen/Creatinine [Mass ratio] 16.4 mg/mg Normal [facility] Comment on above: Performed By: #### A NARF #### [facility] [address] [place] [address] Dr. David Cannon PROTIMEon 02-23-2022 INR Coag (PPP) [Relative time] {INR} Normal [facility] Comment on above: Performed By: #### B MP, TSH #### [facility] [address] [address] [address] David Cannon INR GUIDELINES SEE BELOW Normal [facility] Comment on above: Result Comment: SURY RED INR: 2.0 - 3.0 CONDITIONS NOT LISTED BELOW 2.5 - 3.5 FOR PROSTHETIC HEART VALVE REPLACEMENT 2.5 - 3.5 RECURRENT THROMBOSIS Performed By: #### B NILSA, TSH #### [facility] [address] [place] [address] Dr. David Cannon PT Coag (PPP) [Time] 10.0 s Normal 9.0-11.6 [facility] Comment on above: Performed By: #### B NILSA, TSH #### [facility] [address] [place] [address] Dr. David Cannon PTTon 02-23-2022 aPTT Coag (Bld) [Time] 25.4 s Normal 22.3-36.2 [facility] Comment on above: Performed By: #### B NILSA, TSH #### [facility] [address] [place] [address] Dr. David Cannon TROPONIN, HIGH SENSITIVITYon 02-23-2022 HSTROP 6.0 pg/mL Normal 4.0-51.3 [facility] Comment on above: Result Comment: CUT- OFF POINTS HAVE BEEN ESTABLISHED BASED ON THE FOURTH UNIVERSAL DEFINITIONS OF MYOCARDIAL INFARCTION. THE UPPER REFERENCE LIMIT (URL) OF TROPONIN, DEFINED THE 99TH PERCENTILE OF cTnI DISTRIBUTION IN A REFERENCE POPULATION, HAS BEEN CONFIRMED THE DECISION THRESHOLD FOR [place] DIAGNOSIS. Performed By: #### A NARF #### [facility] [address] [place] [address] Dr. David Cannon XR CHEST 1 Von [...] by: LONI SALAS Date: 2022-02-23 16:18 Normal [facility] CT ABD/PELV W CONon 01-08-[address] ABD/PELV W CON EXAMINATION: CT ABD/PELV [...] CHAIM MEZA Date: 2022-01-06 22:12 Normal [facility] AMYLASEon 01-06-2022 Amylase [Catalytic activity/Vol] 34 U/L Normal 25-115 [facility] Comment on above: Performed By: #### C ELAINE ASH ####[facility] [address] [address]DrGerry Cannon CBC AUTO DIFFon 01-06-2022 BASO # 0.0 103/ul Normal 0.0-0.1 [facility] Comment on above: Performed By: #### A NARF #### [facility] [address] [place] [address] Dr. David Cannon Basophils/100 WBC (Bld) 0.5 % Normal 0.2-2.0 [facility] Comment on above: Performed By: #### A NARF #### [facility] [address] [place] [address] Dr. David Cannon EO # 0.1 103/ul Normal 0.0-0.7 [facility] Comment on above: Performed By: #### A NARF #### [facility] [address] [place] [address] Dr. David Cannon Eosinophils/100 WBC (Bld) 1.4 % Normal 0.9-7.0 [facility] Comment on above: Performed By: #### A NARF #### [facility] [address] [place] [address] Dr. David Cannon Erythrocyte distribution width (RBC) [Ratio] 12.0 % Normal 11.0-15.0 [facility] Comment on above: Performed By: #### A NARF #### [facility] [address] [place] [address] Dr. David Cannon Hematocrit (Bld) [Volume fraction] 44.6 % Normal 36.0-48.0 [facility] Comment on above: Performed By: #### A NARF #### [facility] [address] [place] [address] Dr. David Cannon Hemoglobin (Bld) [Mass/Vol] 14.5 g/dL Normal 12.0-16.0 [facility] Comment on above: Performed By: #### A NARF #### [facility] [address] [place] [address] Dr. David Cannon IG # 0.01 10e3/ul Normal 0.00-0.03 [facility] Comment on above: Performed By: #### A NARF #### [facility] [address] [place] [address] Dr. David Cannon IG % 0.2 % Normal 0.0-0.5 [facility] Comment on above: Performed By: #### A NARF #### [facility] [address] [place] [address] Dr. David Cannon LYMPH # 2.5 103/ul Normal 1.2-3.8 [facility] Comment on above: Performed By: #### A NARF #### [facility] [address] [place] [address] Dr. David Cannon Lymphocytes/100 WBC (Bld) 42.6 % Normal 20.5-60.0 [facility] Comment on above: Performed By: #### A NARF #### [facility] [address] [place] [address] Dr. David Cannon MANUAL DIFF REQ NO Normal [facility] Comment on above: Performed By: #### A NARF #### [facility] [address] [place] [address] Dr. David Cannon MCH (RBC) [Entitic mass] 31.6 pg Normal 26.7-34.0 [facility] Comment on above: Performed By: #### A NARF #### [facility] [address] [place] [address] Dr. David Cannon MCHC (RBC) [Mass/Vol] 32.5 g/dL Normal 29.9-35.2 [facility] Comment on above: Performed By: #### A NARF #### [facility] [address] [place] [address] Dr. David Cannon MCV (RBC) [Entitic vol] 97.2 fL Normal 81.0-99.0 [facility] Comment on above: Performed By: #### A NARF #### [facility] [address] [place] [address] Dr. David Cannon MONO # 0.4 103/ul Normal 0.3-0.8 [facility] Comment on above: Performed By: #### A NARF #### [facility] [address] [place] [address] Dr. David Cannon Monocytes/100 WBC (Bld) 5.9 % Normal 1.7-12.0 [facility] Comment on above: Performed By: #### A NARF #### [facility] [address] [address] [address] David Cannon NEUT # 2.9 103/ul Normal 1.4-6.5 [facility] Comment on above: Performed By: #### A NARF #### [facility] [address] [address] [address] David Cannon Neutrophils/100 WBC (Bld) 49.4 % Normal 43.0-75.0 [facility] Comment on above: Performed By: #### A NARF #### [facility] [address] [address] [address] David Cannon Platelet mean volume (Bld) [Entitic vol] 9.1 fL Critically low 9.5-13.5 [facility] Comment on above: Performed By: #### A NARF #### [facility] [address] [address] [address] David Cannon PLT 257 103/ul Normal 150-450 [facility] Comment on above: Performed By: #### A NARF #### [facility] [address] [place] [address] Dr. David Cannon RBC 4.59 106/ul Normal 4.20-5.40 [facility] Comment on above: Performed By: #### A NARF #### [facility] [address] [address] [address] David Cannon WBC 5.9 103/ul Normal 4.0-11.0 [facility] Comment on above: Performed By: #### A NARF #### [facility] [address] [address] [address] David Cannon D-DIMERon 01-06-2022 D-DIMER 0.67 mg/L FEU Critically high <=0.59 [facility] Comment on above: Performed By: #### D DIM ####[facility] [address] [address]Dr. David Cannon D-DIMER COMMENTS SEE BELOW Normal [facility] Comment on above: Result Comment: Incr [...] generalized hospitalization. Performed By: #### D DIM ####[facility] [address] [place], [place] [address]Dr. David Cannon PROF 14(COMP METB)on 022 Albumin [Mass/Vol] 4.0 g/dL Normal 3.4-5.0 [facility] Comment on above: Performed By: #### C NILSA, ELAINE ####[facility] [address] [place], [place] [address]Dr. David Cannon Albumin/Globulin [Mass ratio] 1.2 {ratio} Normal [facility] Comment on above: Performed By: #### C NILSA, ELAINE ####[facility] [address] [place], [place] [address]Dr. David Cannon ALP [Catalytic activity/Vol] 78 U/L Normal 46-116 [facility] Comment on above: Performed By: #### C INLSA, ELAINE ####[facility] [address] [place], [place] [address]Dr. David Cannon ALT [Catalytic activity/Vol] 23 U/L Normal 14-59 [facility] Comment on above: Performed By: #### C NILSA, ELAINE ####[facility] [address] [place], [place] [address]Dr. David Cannon Anion gap [Moles/Vol] 10.8 mmol/L Normal [facility] Comment on above: Performed By: #### C NILSA, ELAINE ####[facility] [address] [place], [place] [address]Dr. David Cannon AST [Catalytic activity/Vol] 28 U/L Normal 15-37 [facility] Comment on above: Performed By: #### C NILSA, ELAINE ####[facility] [address] [address]Dr. David Cannon Bilirubin [Mass/Vol] 0.3 mg/dL Normal 0.2-1.0 [facility] Comment on above: Performed By: #### C MP, ELAINE ####[facility] [address] [address]Dr. David Cannon Calcium [Mass/Vol] 9.1 mg/dL Normal 8.5-10.1 [facility] Comment on above: Performed By: #### C MP, ELAINE ####[facility] [address] [place], [place] [address]Dr. David Cannon Chloride [Moles/Vol] 102 mmol/L Normal 98-107 [facility] Comment on above: Performed By: #### C MP, ELAINE ####[facility] [address] [place], [place] [address]Dr. David Cannon CO2 [Moles/Vol] 30.3 mmol/L Normal 21.0-32.0 [facility] Comment on above: Performed By: #### C MP, ELAINE ####[facility] [address] [place], [place] [address]Dr. David Cannon Creatinine [Mass/Vol] 0.46 mg/dL Critically low 0.55-1.02 [facility] Comment on above: Performed By: #### C MP, ELAINE ####[facility] [address] [place], [place] [address]Dr. David Cannon EGFR-AF INDONESIAN >60 Normal >=60 [facility] Comment on above: Performed By: #### C MP, ELAINE ####[facility] [address] [place], [place] [id number]. David Cannon EGFR-NON AF INDONESIAN >60 Normal >=60 [facility] Comment on above: Performed By: #### C MP, ELAINE ####[facility] [address] [place], [place] [address]Dr. David Cannon Globulin (S) [Mass/Vol] 3.4 g/dL Normal [facility] Comment on above: Performed By: #### C MP, ELAINE ####[facility] [address] [address]Dr. David Cannon Glucose [Mass/Vol] 111 mg/dL Critically high 74-106 [facility] Comment on above: Performed By: #### C MP, ELAINE ####[facility] [address] [address]Dr. David Cannon Potassium [Moles/Vol] 4.1 mmol/L Normal 3.5-5.1 [facility] Comment on above: Performed By: #### C MP, ELAINE ####[facility] [address] [place], [place] [address]Dr. David Cannon Protein [Mass/Vol] 7.4 g/dL Normal 6.4-8.2 [facility] Comment on above: Performed By: #### C NILSA, ELAINE ####[facility] [address] [place], [place] [address]Dr. David Cannon Sodium [Moles/Vol] 139 mmol/L Normal 136-145 [facility] Comment on above: Performed By: #### C NILSA, ELAINE ####[facility] [address] [place], [place] [address]Dr. David Cannon Urea nitrogen [Mass/Vol] 14.0 mg/dL Normal 7.0-18.0 [facility] Comment on above: Performed By: #### C NILSA, ELAINE ####[facility] [address] [place], [place] [address]Dr. David Cannon Urea nitrogen/Creatinine [Mass ratio] 30.4 mg/mg Normal [facility] Comment on above: Performed By: #### C MP, ELAINE ####[facility] [address] [place], [place] [address]Dr. David Cannon CBC AUTO DIFFon 11-28-2021 BASO # 0.0 103/ul Normal 0.0-0.1 [facility] Comment on above: Performed By: #### C BC ####[facility] [address] [place], [place] [address]Dr. David Cannon Basophils/100 WBC (Bld) 0.8 % Normal 0.2-2.0 [facility] Comment on above: Performed By: #### C BC ####[facility] [address] [place], [place] [address]Dr. David Cannon EO # 0.1 103/ul Normal 0.0-0.7 [facility] Comment on above: Performed By: #### C BC ####[facility] [address] [place], [place] [address]Dr. David Cannon Eosinophils/100 WBC (Bld) 3.0 % Normal 0.9-7.0 [facility] Comment on above: Performed By: #### C BC ####[facility] [address] [place], [place] [address]Dr. David Cannon Erythrocyte distribution width (RBC) [Ratio] 11.9 % Normal 11.0-15.0 [facility] Comment on above: Performed By: #### C BC ####[facility] [address] [place], [place] [address]Dr. David Cannon Hematocrit (Bld) [Volume fraction] 42.4 % Normal 36.0-48.0 [facility] Comment on above: Performed By: #### C BC ####[facility] [address] [place], [place] [address]Dr. David Cannon Hemoglobin (Bld) [Mass/Vol] 13.3 g/dL Normal 12.0-16.0 [facility] Comment on above: Performed By: #### C BC ####[facility] [address] [place], [place] [address]Dr. David Cannon IG # 0.01 10e3/ul Normal 0.00-0.03 [facility] Comment on above: Performed By: #### C BC ####[facility] Pelcgm[address] [place], [place] [address]Dr. David Cannon IG % 0.3 % Normal 0.0-0.5 [facility] Comment on above: Performed By: #### C BC ####[facility] Xrhcdiousq[address] [place], [place] [address]Dr. David Cannon LYMPH # 1.6 103/ul Normal 1.2-3.8 [facility] Comment on above: Performed By: #### C BC ####[facility] [address] [place] [address]DrGerry Cannon Lymphocytes/100 WBC (Bld) 39.6 % Normal 20.5-60.0 [facility] Comment on above: Performed By: #### C BC ####[facility] Zhbolveeb[address] [place], [place] [address]DrGerry Cannon MANUAL DIFF REQ NO Normal [facility] Comment on above: Performed By: #### C BC ####[facility] [address] [place] [address]DrGerry Cannon MCH (RBC) [Entitic mass] 31.6 pg Normal 26.7-34.0 [facility] Comment on above: Performed By: #### C BC ####[facility] [address] [place], [place] [address]DrGerry Cannon MCHC (RBC) [Mass/Vol] 31.4 g/dL Normal 29.9-35.2 [facility] Comment on above: Performed By: #### C BC ####[facility] [address] [place], [place] [address]DrGerry Cannon MCV (RBC) [Entitic vol] 100.7 fL Critically high 81.0-99 .0 [facility] Comment on above: Performed By: #### C BC ####[facility] Glopbtfirl[address] [place], [place] [address]DrGerry Cannon MONO # 0.4 103/ul Normal 0.3-0.8 [facility] Comment on above: Performed By: #### C BC ####[facility] Sphylsrhgy[address] [place], [place] [address]DrGerry Cannon Monocytes/100 WBC (Bld) 11.2 % Normal 1.7-12.0 [facility] Comment on above: Performed By: #### C BC ####[facility] Fs[address]ctsexv[address] [place], [place] [address]DrGerry Cannon NEUT # 1.8 103/ul Normal 1.4-6.5 [facility] Comment on above: Performed By: #### C BC ####[facility] [address] [place] [address]Dr. David Cannon Neutrophils/100 WBC (Bld) 45.1 % Normal 43.0-75.0 [facility] Comment on above: Performed By: #### C BC ####[facility] [address]jeez[address] [place] [id number]. David Cannon Platelet mean volume (Bld) [Entitic vol] 9.1 fL Critically low 9.5-13.5 [facility] Comment on above: Performed By: #### C BC ####[facility] [address]sc[address] [place] [address]Dr. David Cannon PLT 177 103/ul Normal 150-450 [facility] Comment on above: Performed By: #### C BC ####[facility] [address]fn[address]ryio[address] [place] [address]Dr. David Cannon RBC 4.21 106/ul Normal 4.20-5.40 [facility] Comment on above: Performed By: #### C BC ####[facility] [address]xq[address] [place] [id number]. Dvaid Cannon WBC 3.9 103/ul Critically low 4.0-11.0 [facility] Comment on above: Performed By: #### C BC ####[facility] [address] [place] [id number]. David Cannon CRPon 11-28-2021 CRP [Mass/Vol] mg/L Normal <=1.0 [facility] Comment on above: Performed By: #### A NARF #### [facility] [address] [address] [address] David Cannon XR LSPINE 2_3 VIEWSon 2021 XR LSPINE 2_3 VIEWS EXAMINATION: XR LSPINE 2_3 VIEWS, XR SACRUM_COCCYX HISTORY: History of fall COMPARISON: 10/16/2021 CT exam FINDINGS: BONES: Rotatory levocurvature centered at L3. Kyphoplasty at L2. 40% anterior superior wedge compression fracture of T12. Left superior wedge compression fracture of L5. Minimal degenerative spondylosis. Iyjy-dz-elrihhuq facet osteoarthropathy. DISC SPACES: Multilevel disc space narrowing PARASPINOUS: Negative. No paraspinous abnormality is seen. OTHER: Negative. IMPRESSION: Grossly stable from CT exam performed 4 days ago Electronically authenticated by: JANNA LAWTON Date: 2021-10-20 12:06 Normal [facility] CULTURE URINEon 10-18-2021 CULTURE URINE Isolate [...] F Trimethoprim/Sulfam ethoxazole <=20 S F Normal [facility] Comment on above: Performed By: #### U RCX ####[facility] Jiwfz[address] [place], [place] [address]Dr. David Cannon AMYLASEon 10-16-2021 Amylase [Catalytic activity/Vol] 35 U/L Normal 25-115 [facility] Comment on above: Performed By: #### B MP, TSH #### [facility] [address] [address] [address] David Cannon CBC AUTO DIFFon 10-16-2021 BASO # 0.0 103/ul Normal 0.0-0.1 [facility] Comment on above: Performed By: #### C BC ####[facility] Fteq[address] [place], [place] [address]Dr. David Cannon Basophils/100 WBC (Bld) 0.7 % Normal 0.2-2.0 [facility] Comment on above: Performed By: #### C BC ####[facility] [address]xim[address] [place] [address]Dr. David Cannon EO # 0.1 103/ul Normal 0.0-0.7 [facility] Comment on above: Performed By: #### C BC ####[facility] Qpreihpkjh[address] [place], [place] [address]Dr. David Cannon Eosinophils/100 WBC (Bld) 1.0 % Normal 0.9-7.0 [facility] Comment on above: Performed By: #### C BC ####[facility] Iandmwilpt[address] [place], [place] [address]Dr. David Cannon Erythrocyte distribution width (RBC) [Ratio] 11.7 % Normal 11.0-15.0 [facility] Comment on above: Performed By: #### C BC ####[facility] Ovyrshzhqx[address] [place], [place] [address]Dr. David Cannon Hematocrit (Bld) [Volume fraction] 46.9 % Normal 36.0-48.0 [facility] Comment on above: Performed By: #### C BC ####[facility] Zvunle[address] [place], [place] [address]Dr. David Cannon Hemoglobin (Bld) [Mass/Vol] 15.2 g/dL Normal 12.0-16.0 [facility] Comment on above: Performed By: #### C BC ####[facility] [address]jg[address] [place], [place] [address]Dr. David Cannon IG # 0.01 10e3/ul Normal 0.00-0.03 [facility] Comment on above: Performed By: #### C BC ####[facility] Yoeiqyairc[address] [place], [place] [address]Dr. David Cannon IG % 0.2 % Normal 0.0-0.5 [facility] Comment on above: Performed By: #### C BC ####[facility] Ekudxrugmu[address] [place], [place] [address]Dr. David Cannon LYMPH # 1.7 103/ul Normal 1.2-3.8 [facility] Comment on above: Performed By: #### C BC ####[facility] [address] [place] [address]Dr. Janellbraeden Cannon Lymphocytes/100 WBC (Bld) 29.0 % Normal 20.5-60.0 [facility] Comment on above: Performed By: #### C BC ####[facility] [address] [place] [address]Dr. Janellbraeden Cannon MANUAL DIFF REQ NO Normal [facility] Comment on above: Performed By: #### C BC ####[facility] [address] [place] [address]Dr. David Davis MCH (RBC) [Entitic mass] 32.0 pg Normal 26.7-34.0 [facility] Comment on above: Performed By: #### C BC ####[facility] Weqx[address]kumf[address] [place], [place] [address]Dr. Janellbraeden Cannon MCHC (RBC) [Mass/Vol] 32.4 g/dL Normal 29.9-35.2 [facility] Comment on above: Performed By: #### C BC ####[facility] I[address] [place], [place] [address]Dr. David Cannon MCV (RBC) [Entitic vol] 98.7 fL Normal 81.0-99.0 [facility] Comment on above: Performed By: #### C BC ####[facility] Zfc[address] [place], [place] [address]Dr. David Cannon MONO # 0.4 103/ul Normal 0.3-0.8 [facility] Comment on above: Performed By: #### C BC ####[facility] Hrjgarpmel[address] [place], [place] [address]Dr. David Cannon Monocytes/100 WBC (Bld) 6.6 % Normal 1.7-12.0 [facility] Comment on above: Performed By: #### C BC ####[facility] C[address]irxjcrsr[address] [place], [place] [address]Dr. David Cannon NEUT # 3.7 103/ul Normal 1.4-6.5 [facility] Comment on above: Performed By: #### C BC ####[facility] [address] [place] [address] David Cannon Neutrophils/100 WBC (Bld) 62.5 % Normal 43.0-75.0 [facility] Comment on above: Performed By: #### C BC ####[facility] [address] [place] [address]Dr. David Cannon Platelet mean volume (Bld) [Entitic vol] 9.5 fL Normal 9.5-13.5 [facility] Comment on above: Performed By: #### C BC ####[facility] [address] [place] [id number]. David Cannon PLT 216 103/ul Normal 150-450 [facility] Comment on above: Performed By: #### C BC ####[facility] [address] [place] [address]Dr. David Cannon RBC 4.75 106/ul Normal 4.20-5.40 [facility] Comment on above: Performed By: #### C BC ####[facility] [address] [place] [id number]. David Cannon WBC 5.9 103/ul Normal 4.0-11.0 [facility] Comment on above: Performed By: #### C BC ####[facility] [address] [place] [address] CT ABD/PELV W CONon 10-17-19 [...] JANNA DHALIWAL Date: 2021-10-16 15:43 Normal [facility] ER URINE PROFILEon 2 Bilirubin Ql (U) Negative Normal NEGATIVE [facility] Comment on above: Performed By: #### U MICRO, ERUR #### [facility] [address] [place] [address] Dr. David Cannon Clarity (U) SL CLOUDY Abnormal CLEAR [facility] Comment on above: Performed By: #### U MICRO, ERUR #### [facility] [address] [address] [address] David Cannon Color (U) YELLOW Normal YELLOW [facility] Comment on above: Performed By: #### U MICRO, ERUR #### [facility] [address] [place] [address] Dr. David Cannon ERUAHD A micrscopic examination will be performed if indicated. Normal [facility] Comment on above: Performed By: #### U MICRO, ERUR #### [facility] [address] [address] [address] David Cannon Glucose Ql (U) Negative Normal NEGATIVE [facility] Comment on above: Performed By: #### U MICRO, ERUR #### [facility] [address] [address] [address] David Cannon Hemoglobin Ql (U) Negative Normal NEGATIVE [facility] Comment on above: Performed By: #### U MICRO, ERUR #### [facility] [address] [address] [address] David Cannon Ketones Ql (U) TRACE Abnormal NEGATIVE [facility] Comment on above: Performed By: #### U MICRO, ERUR #### [facility] [address] [place] [address] Dr. David Cannon LEUKOCYTES SMALL Abnormal NEGATIVE [facility] Comment on above: Performed By: #### U MICRO, ERUR #### [facility] [address] [place] [address] Dr. David Cannon Nitrite Ql (U) Positive Abnormal NEGATIVE [facility] Comment on above: Performed By: #### U MICRO, ERUR #### [facility] [address] [place] [address] Dr. David Cannon pH (U) 5.5 [pH] Normal 5-9 [facility] Comment on above: Performed By: #### U MICRO, ERUR #### [facility] [address] [place] [address] Dr. David Cannon SPEC GRAVITY >=1.030 Abnormal 1.005-<=1.[address] [place] [address] Comment on above: Performed By: #### U MICRO, ERUR #### [facility] [address] [address] [address] David Cannon UA PROTEIN Negative Normal NEGATIVE/ TRACE [facility] Comment on above: Performed By: #### U MICRO, ERUR #### [facility] [address] [place] [address] Dr. David Cannon UR MICRO IND INDICATED Normal [facility] Comment on above: Performed By: #### U MICRO, ERUR #### [facility] [address] [place] [address] Dr. aDvid Cannon Urobilinogen Qn (U) 0.2 {Skip'U}/dL Normal 0.2 - 1. 0 [facility] Comment on above: Performed By: #### U MICRO, ERUR #### [facility] [address] [place] [address] Dr. David Cannon LIPASEon 10-16-2021 Lipase [Catalytic activity/Vol] 93.0 U/L Normal 73.0-393.0 [facility] Comment on above: Performed By: #### B MP, TSH #### [facility] [address] [place] [address] Dr. David Cannon PROF 14(COMP METB)on 022 Albumin [Mass/Vol] 4.1 g/dL Normal 3.4-5.0 [facility] Comment on above: Performed By: #### B MP, TSH #### [facility] [address] [place] [address] Dr. David Cannon Albumin/Globulin [Mass ratio] 1.1 {ratio} Normal [facility] Comment on above: Performed By: #### B MP, TSH #### [facility] [address] [place] [address] Dr. David Cannon ALP [Catalytic activity/Vol] 88 U/L Normal 46-116 [facility] Comment on above: Performed By: #### B MP, TSH #### [facility] [address] [place] [address] Dr. David Cannon ALT [Catalytic activity/Vol] 17 U/L Normal 14-59 [facility] Comment on above: Performed By: #### B MP, TSH #### [facility] [address] [place] [address] Dr. David Cannon Anion gap [Moles/Vol] 12.4 mmol/L Normal [facility] Comment on above: Performed By: #### B MP, TSH #### [facility] [address] [place] [address] Dr. David Cannon AST [Catalytic activity/Vol] 15 U/L Normal 15-37 [facility] Comment on above: Performed By: #### B MP, TSH #### [facility] [address] [address] [address] David Cannon Bilirubin [Mass/Vol] 0.2 mg/dL Normal 0.2-1.0 [facility] Comment on above: Performed By: #### B MP, TSH #### [facility] [address] [address] [address] David Cannon Calcium [Mass/Vol] 9.8 mg/dL Normal 8.5-10.1 [facility] Comment on above: Performed By: #### B MP, TSH #### [facility] [address] [place] [address] Dr. David Cannon Chloride [Moles/Vol] 103 mmol/L Normal 98-107 [facility] Comment on above: Performed By: #### B MP, TSH #### [facility] [address] [place] [address] Dr. Daivd Cannon CO2 [Moles/Vol] 30.6 mmol/L Normal 21.0-32.0 [facility] Comment on above: Performed By: #### B MP, TSH #### [facility] [address] [place] [address] Dr. David Cannon Creatinine [Mass/Vol] 0.85 mg/dL Normal 0.55-1.02 [facility] Comment on above: Performed By: #### B MP, TSH #### [facility] [address] [place] [address] Dr. David Cannon EGFR-AF INDONESIAN >60 Normal >=60 [facility] Comment on above: Performed By: #### B MP, TSH #### [facility] [address] [place] [address] Dr. David Cannon EGFR-NON AF INDONESIAN >60 Normal >=60 [facility] Comment on above: Performed By: #### B MP, TSH #### [facility] [address] [place] [address] Dr. David Cannon Globulin (S) [Mass/Vol] 3.8 g/dL Normal T [facility] Comment on above: Performed By: #### B MP, TSH #### [facility] [address] [address] [address] David Cannon Glucose [Mass/Vol] 119 mg/dL Critically high 74-106 [facility] Comment on above: Performed By: #### B MP, TSH #### [facility] [address] [address] [address] David Cannon Potassium [Moles/Vol] 4.0 mmol/L Normal 3.5-5.1 [facility] Comment on above: Performed By: #### B MP, TSH #### [facility] [address] [place] [address] Dr. David Cannon Protein [Mass/Vol] 7.9 g/dL Normal 6.4-8.2 [facility] Comment on above: Performed By: #### B MP, TSH #### [facility] [address] [place] [address] Dr. David Cannon Sodium [Moles/Vol] 142 mmol/L Normal 136-145 [facility] Comment on above: Performed By: #### B MP, TSH #### [facility] [address] [place] [address] Dr. David Cannon Urea nitrogen [Mass/Vol] 12.0 mg/dL Normal 7.0-18.0 [facility] Comment on above: Performed By: #### B MP, TSH #### [facility] [address] [place] [address] Dr. David Cannon Urea nitrogen/Creatinine [Mass ratio] 14.1 mg/mg Normal [facility] Comment on above: Performed By: #### B MP, TSH #### [facility] [address] [place] [address] Dr. David Cannon URINE MICROSCOPIC ONLYon BACTERIA LARGE Abnormal NONE SEEN [facility] Comment on above: Performed By: #### U MICRO, ERUR #### [facility] [address] [place] [address] Dr. David Cannon Bacteria identified Cx Nom (U) INDICATED Normal [facility] Comment on above: Performed By: #### U MICRO, ERUR #### [facility] [address] [address] [address] David Cannon CA OX CRYSTALS FEW Normal [facility] Comment on above: Performed By: #### U MICRO, ERUR #### [facility] [address] [address] [address] David Cannon CAST SEEN Abnormal NONE SEEN [facility] Comment on above: Performed By: #### U MICRO, ERUR #### [facility] [address] [address] [address] David Cannon Crystals LM Nom (Urine sed) SEEN Abnormal NONE SEEN [facility] Comment on above: Performed By: #### U MICRO, ERUR #### [facility] [address] [address] [address] David Cannon Epithelial cells LM Ql (Urine sed) RARE Normal NONE SEEN /RARE [facility] Comment on above: Performed By: #### U MICRO, ERUR #### [facility] [address] [address] [address] David Cannon HYALINE CAST FEW Normal [facility] Comment on above: Performed By: #### U MICRO, ERUR #### [facility] [address] [place] [address] Dr. David aCnnon MUCOUS TRACE Abnormal NONE SEEN [facility] Comment on above: Performed By: #### U MICRO, ERUR #### [facility] [address] [address] [address] David Cannon RBC 2-5 Abnormal 0-2 [facility] Comment on above: Performed By: #### U MICRO, ERUR #### [facility] [address] [place] [address] Dr. David Cannon WBC 75-100 Abnormal NONE SEEN [facility] Comment on above: Performed By: #### U MICRO, ERUR #### [facility] [address] [place] [address] Dr. David Cannon XR ANKLE RT MIN [...] STEPHANIE DODD Date: 2021-10-05 10:56 Normal [facility] MRI TSPINE WO W CONon 2021 [...] by: CELIA CORMIER Date: 2021-09-01 07:29 Normal [facility] CREATININEon 08-31-2021 Creatinine [Mass/Vol] 0.82 mg/dL Normal 0.55-1.02 [facility] Comment on above: Performed By: #### C LUCIA #### [facility] [address] [address] [address] David Cannon EGFR-AF INDONESIAN >60 Normal >=60 [facility] Comment on above: Performed By: #### C LUCIA #### [facility] [address] [address] [address] David Cannon EGFR-NON AF INDONESIAN >60 Normal >=60 [facility] Comment on above: Performed By: #### C LUCIA #### [facility] [address] [address] [address] David LASSITER Quick Testingon [address] [facility] [employer] Other Quick Fluon 04-13-2021 FLUAV Ab CF (S) [Titer] Negative N [facility] [employer] Other FLUBV Ab CF (S) [Titer] Negative N [employer] Other Vital Signs Date Time Vital Sign Value Performing Clinician Facility 11-26-2023 09:18-0400 Body height 157.48 cm MD Nettie Iqbal Work Phone: [facility] 11-26-2023 09:18-0400 Body mass index (BMI) [Ratio] 18.3 kg/m2 MD Nettie Iqbal Work Phone: [facility] 11-26-2023 09:18-0400 Body weight 45.35 kg MD Nettie Iqbal Work Phone: [facility] 11-26-2023 09:18-0400 Diastolic blood pressure 72 mm[Hg] MD Nettie Iqbal Work Phone: [facility] 11-26-2023 09:18-0400 Heart rate 80 /min MD Nettie Iqbal Work Phone: [facility] 11-26-2023 09:18-0400 Systolic blood pressure 105 mm[Hg] MD Nettie Iqbal Work Phone: [facility] 09-24-2023 13:09-0400 Body height 157.48 cm [facility] 09-24-2023 13:09-0400 Body mass index (BMI) [Ratio] 18.3 kg/m2 [facility] 09-24-2023 13:09-0400 Body weight 45.47 kg [facility] 09-24-2023 13:09-0400 Diastolic blood pressure 82 mm[Hg] [facility] 09-24-2023 13:09-0400 Heart rate 73 /min [facility] 09-24-2023 13:09-0400 Systolic blood pressure 120 mm[Hg] [facility] 08-11-2023 11:04-0400 Body height 157.48 cm MD Nettie Iqbal Work Phone: [facility] 08-11-2023 11:04-0400 Body mass index (BMI) [Ratio] 19.1 kg/m2 MD Nettie Iqbal Work Phone: [facility] 08-11-2023 11:04-0400 Body temperature 97.4 [degF] MD Nettie Iqbal Work Phone: [facility] 08-11-2023 11:04-0400 Body weight 47.28 kg MD Nettie Iqbal Work Phone: [facility] 08-11-2023 11:04-0400 Heart rate 67 /min MD Nettie Iqbal Work Phone: [facility] 08-11-2023 11:04-0400 Respiratory rate 18 /min MD Nettie Iqbal Work Phone: [facility] 08-11-2023 11:04-0400 SaO2% (BldA) [Mass fraction] 91 % MD Nettie Iqbal Work Phone: [facility] 06-22-2023 13:02-0400 Body height 157.48 cm [facility] 06-22-2023 13:02-0400 Body mass index (BMI) [Ratio] 19.5 kg/m2 [facility] 06-22-2023 13:02-0400 Body weight 48.59 kg [facility] 06-22-2023 13:02-0400 Diastolic blood pressure 79 mm[Hg] [facility] 06-22-2023 13:02-0400 Heart rate 69 /min [facility] 06-22-2023 13:02-0400 Systolic blood pressure 143 mm[Hg] [facility] 06-15-2023 15:16-0400 Diastolic blood pressure 67 mm[Hg] [place] [facility] [employer] [facility] 06-15-2023 15:16-0400 Heart rate 59 /min [place] [facility] [employer] [facility] 06-15-2023 15:16-0400 Respiratory rate 12 /min [place] [facility] [employer] 06-15-2023 15:16-0400 SaO2% (BldA) [Mass fraction] 95 % [place] [facility] [employer] 06-15-2023 15:16-0400 Systolic blood pressure 152 mm[Hg] [place] 1 [facility] [employer] 06-15-2023 11:59-0400 Body temperature 98.29 [degF] [place] [facility] 04-11-2023 14:20-0500 Body height 157.48 cm [employer] Other [facility] 04-11-2023 14:20-0500 Body mass index (BMI) [Ratio] 19.75 kg/m2 [employer] Other [employer] Other 04-11-2023 14:20-0500 Body weight 48.99 kg [employer] Other [employer] Other 04-11-2023 14:20-0500 Body weight 48.98 kg [facility] 02-27-2023 11:00-0500 Body height 157.48 cm [employer] Other [employer] Other 02-27-2023 11:00-0500 Body mass index (BMI) [Ratio] 19.75 kg/m2 [employer] Other [employer] Other 02-27-2023 11:00-0500 Body weight 48.99 kg [employer] Other [employer] Other 10-24-2022 13:00-0400 Body height 157.48 cm Nettie Iqbal Other [employer] Other 10-24-2022 13:00-0400 Body mass index (BMI) [Ratio] 21.21 kg/m2 Nettie Iqbal Other [employer] Other 10-24-2022 13:00-0400 Body weight 52.62 kg Nettie Iqbal Other [employer] Other 10-24-2022 13:00-0400 Diastolic blood pressure 82 mm[Hg] Nettie Iqbal Other [employer] Other 10-24-2022 13:00-0400 Systolic blood pressure 129 mm[Hg] Nettie Iqbal Other [employer] Other 09-07-2022 14:15-0400 Body height 157.48 cm Kiran Amaya Other [employer] Other 09-07-2022 14:15-0400 Body mass index (BMI) [Ratio] 20.48 kg/m2 Kiran mAaya Other [employer] Other 09-07-2022 14:15-0400 Body weight 50.8 kg Kiran Amaya Other [employer] Other 09-07-2022 14:15-0400 Diastolic blood pressure 80 mm[Hg] Kiran Amaya Other [employer] Other 09-07-2022 14:15-0400 Systolic blood pressure 137 mm[Hg] Kiran Amaya Other [employer] Other 08-29-2022 14:00-0400 Body height 157.48 cm Nettie Iqbal Other [employer] Other 08-29-2022 14:00-0400 Body mass index (BMI) [Ratio] 20.3 kg/m2 Nettie Iqbal Other [employer] Other 08-29-2022 14:00-0400 Body weight 50.35 kg Nettie Iqbal Other [employer] Other 08-29-2022 14:00-0400 Diastolic blood pressure 85 mm[Hg] Nettie Iqbal Other [employer] Other 08-29-2022 14:00-0400 Systolic blood pressure 144 mm[Hg] Nettie Iqbal Other [employer] Other 08-25-2022 16:50-0400 Body height 157.48 cm Sandra Flores Other [employer] Other 08-25-2022 16:50-0400 Body mass index (BMI) [Ratio] 20.59 kg/m2 Sandra Flores Other [employer] Other 08-25-2022 16:50-0400 Body temperature 96.6 [degF] Sandra Flores Other [employer] Other 08-25-2022 16:50-0400 Body weight 51.08 kg Sandra Flores Other [employer] Other 08-25-2022 16:50-0400 Diastolic blood pressure 71 mm[Hg] Sandra Flores Other [employer] Other 08-25-2022 16:50-0400 Respiratory rate 20 /min Sandra Flores Other [employer] Other 08-25-2022 16:50-0400 SaO2% (BldA) [Mass fraction] 94 % Sandra Flores Other [employer] Other 08-25-2022 16:50-0400 Systolic blood pressure 106 mm[Hg] Sandra Flores Other [employer] Other 08-03-2022 14:30-0400 Body height 157.48 cm Nettie Iqbal Other [employer] Other 08-03-2022 14:30-0400 Body mass index (BMI) [Ratio] 21.21 kg/m2 Nettie Iqbal Other [employer] Other 08-03-2022 14:30-0400 Body weight 52.62 kg Nettie Iqbal Other [employer] Other 08-03-2022 14:30-0400 Diastolic blood pressure 93 mm[Hg] Nettie Iqbal Other [employer] Other 08-03-2022 14:30-0400 Systolic blood pressure 143 mm[Hg] Nettie Iqbal Other [employer] Other 06-20-2022 16:20-0400 Body height 157.48 cm Vanessa Sanford Other [employer] Other 06-20-2022 16:20-0400 Body mass index (BMI) [Ratio] 21.95 kg/m2 Vanessa Sanford Other [employer] Other 06-20-2022 16:20-0400 Body temperature 98.9 [degF] Vanessa Sanford Other [employer] Other 06-20-2022 16:20-0400 Body weight 54.43 kg Vanessa Sanford Other [employer] Other 06-20-2022 16:20-0400 Diastolic blood pressure 81 mm[Hg] Vanessa Sanford Other [employer] Other 06-20-2022 16:20-0400 Respiratory rate 18 /min Vanessa Sanford Other [employer] Other 06-20-2022 16:20-0400 SaO2% (BldA) [Mass fraction] 99 % Vanessa Juvenal Other [employer] Other 06-20-2022 16:20-0400 Systolic blood pressure 150 mm[Hg] Vanessa Juvenal Other [employer] Other 06-16-2022 12:30-0400 Body height 157.48 cm Phani Ball Other [employer] Other 06-16-2022 12:30-0400 Body mass index (BMI) [Ratio] 22.2 kg/m2 Phani Ball Other [employer] Other 06-16-2022 12:30-0400 Body weight 55.07 kg Phani Ball Other [employer] Other 06-16-2022 12:30-0400 Diastolic blood pressure 75 mm[Hg] Phani Ball Other [employer] Other 06-16-2022 12:30-0400 Respiratory rate 12 /min Phani Ball Other [employer] Other 06-16-2022 12:30-0400 Systolic blood pressure 139 mm[Hg] Phani Ball Other [employer] Other 05-29-2022 14:45-0400 Body height 157.48 cm Phani Ball Other [employer] Other 05-29-2022 14:45-0400 Body mass index (BMI) [Ratio] 21.25 kg/m2 Phani Ball Other [employer] Other 05-29-2022 14:45-0400 Body weight 52.71 kg Phani Ball Other [employer] Other 05-29-2022 14:45-0400 Diastolic blood pressure 98 mm[Hg] Phani Ball Other [employer] Other 05-29-2022 14:45-0400 Respiratory rate 12 /min Phani Ball Other [employer] Other 05-29-2022 14:45-0400 Systolic blood pressure 150 mm[Hg] Phani Ball Other [employer] Other 03-14-2022 15:30-0500 Body height 157.48 cm Kiran Shamir Other [employer] Other 03-14-2022 15:30-0500 Body mass index (BMI) [Ratio] 19.57 kg/m2 Kiran Shamir Other [employer] Other 03-14-2022 15:30-0500 Body weight 48.54 kg Kiran Shamir Other [employer] Other 03-14-2022 15:30-0500 Diastolic blood pressure 96 mm[Hg] Kiran Amaya Other [employer] Other 03-14-2022 15:30-0500 Systolic blood pressure 136 mm[Hg] Kiran Shamir Other [employer] Other 01-20-2022 11:40-0500 Diastolic blood pressure 84 mm[Hg] DO Phani Ball Work Phone: [facility] 01-20-2022 11:40-0500 Heart rate 79 /min DO Phani Ball Work Phone: [facility] 01-20-2022 11:40-0500 Respiratory rate 18 /min DO Phani Ball Work Phone: [facility] 01-20-2022 11:40-0500 SaO2% (BldA) [Mass fraction] 97 % DO Phani Ball Work Phone: [facility] 01-20-2022 11:40-0500 Systolic blood pressure 143 mm[Hg] DO Phani Ball Work Phone: [facility] 01-20-2022 09:05-0500 Body height 157.48 cm DO Phani Ball Work Phone: [facility] 01-20-2022 09:05-0500 Body temperature 98.2 [degF] DO Phani Ball Work Phone: [facility] 01-20-2022 09:05-0500 Body weight 51.25 kg DO Phani Ball Work Phone: [facility] 12-09-2021 12:00-0400 Body height 157.48 cm Kiran Amaya Other [employer] Other 12-09-2021 12:00-0400 Body mass index (BMI) [Ratio] 21.58 kg/m2 Kiran Amaya Other [employer] Other 12-09-2021 12:00-0400 Body weight 53.52 kg Kiran Amaya Other [employer] Other 09-05-2021 17:00-0400 Body height 157.48 cm Ambrose Torres Other [employer] Other 09-05-2021 17:00-0400 Body mass index (BMI) [Ratio] 23.01 kg/m2 Ambrose Torres Other [employer] Other 09-05-2021 17:00-0400 Body weight 57.06 kg Ambrose Torres Other [employer] Other 06-13-2021 10:45-0400 Body height 157.48 cm Janna Pina Other [employer] Other 06-13-2021 10:45-0400 Body mass index (BMI) [Ratio] 23.23 kg/m2 Janna Pina Other [employer] Other 06-13-2021 10:45-0400 Body weight 57.61 kg Janna Pina Other [employer] Other 06-13-2021 10:45-0400 Diastolic blood pressure 107 mm[Hg] Janna Pina Other [employer] Other 06-13-2021 10:45-0400 Systolic blood pressure 145 mm[Hg] Janna Pina Other [employer] Other 04-13-2021 10:05-0500 Body height 157.48 cm Shira Cunningham Other [employer] Other 04-13-2021 10:05-0500 Body mass index (BMI) [Ratio] 22.86 kg/m2 Shira Cunningham Other [employer] Other 04-13-2021 10:05-0500 Body temperature 96.2 [degF] Shira Cunningham Other [employer] Other 04-13-2021 10:05-0500 Body weight 56.7 kg Shira Cunningham Other [employer] Other 04-13-2021 10:05-0500 Respiratory rate 18 /min Shira Cunningham Other [employer] Other 04-13-2021 10:05-0500 SaO2% (BldA) [Mass fraction] 95 % Shira Cunningham Other [employer] Other 01-20-2021 12:00-0500 Body height 157.48 cm Janna Pina Other [employer] Other 01-20-2021 12:00-0500 Body mass index (BMI) [Ratio] 23.04 kg/m2 Janna Pina Other [employer] Other 01-20-2021 12:00-0500 Body weight 57.15 kg Janna Bakerkes Other [employer] Other 12-07-2020 15:30-0400 Body height 157.48 cm Janna Bakerkes Other [employer] Other 12-07-2020 15:30-0400 Body mass index (BMI) [Ratio] 22.86 kg/m2 Janna Bakerkes Other [employer] Other 12-07-2020 15:30-0400 Body weight 56.7 kg Janna Hykes Other [employer] Other Encounters Encounter Date Encounter Type Care Provider Facility Start: 11-26-2023 End: 11-26-2023 ambulatory MD Nettie Iqbal Work Phone: [facility] Work Phone: Start: 11-26-2023 End: 11-26-2023 Patient encounter procedure MD Nettie Iqbal Work Phone: [facility] Gastroenterology Work Phone: Start: 11-02-2023 End: 11-02-2023 Patient encounter procedure MD Nettie Iqbal Work Phone: [facility] [place] Work Phone: Start: 11-02-2023 End: 11-02-2023 ambulatory MD Nettie Iqbal Work Phone: [facility] Work Phone: Start: 09-24-2023 End: 09-24-2023 ambulatory [facility] Work Phone: Start: 09-24-2023 End: 09-24-2023 Patient encounter procedure [facility] Work Phone: Start: 08-11-2023 End: 08-11-2023 ambulatory MD Nettie Iqbal Work Phone: [facility] Work Phone: Start: 08-11-2023 End: 08-11-2023 Patient encounter procedure MD Nettie Iqbal Work Phone: [facility] Physician [facility] Work Phone: Start: 07-26-2023 End: 07-26-2023 Patient encounter procedure MD Nettie Iqbal Work Phone: [facility] Work Phone: Start: 06-22-2023 End: 06-22-2023 Departed Referred MD Nettie Iqbal Work Phone: [facility] [place] Work Phone: Start: 06-22-2023 End: 06-22-2023 ambulatory Nettie Iqbal [facility] Work Phone: Start: 06-22-2023 End: 06-22-2023 Patient encounter procedure [facility] Physician [facility] Work Phone: Start: 06-15-2023 End: 06-18-2023 ambulatory [facility] Start: 06-15-2023 End: 06-17-2023 Subsequent hospital visit by physician Ricardo Carbajal MD Work Phone: [facility] Special Procedure Comment on above: Compression fracture of T12 vertebra with delayed healing, subsequent encounter; Other osteoporosis with current pathological fracture, vertebra(e), initial encounter for fracture (HCC) Start: 06-13-2023 End: 06-14-2023 [facility] Start: 05-28-2023 Non-patient / Non-visit [facility] Physician [facility] Work Phone: Start: 04-19-2023 End: 04-19-2023 Subsequent hospital visit by physician Rad External Film EF RAD EXTERNAL FILM VIRTUAL Comment on above: Arrived Start: 04-13-2023 End: 04-13-2023 ambulatory Nettie Iqbal Other [employer] Other Start: 04-13-2023 Telephone encounter Nettie Iqbal [facility] Start: 04-11-2023 End: 04-11-2023 ambulatory Ana Kim Other [employer] Other Start: 04-11-2023 Office outpatient vi sit 15 minutes Ana Kim [facility] Neuro[facility] Start: 04-11-2023 End: 04-11-2023 Patient encounter procedure [facility]- Start: 03-08-2023 End: 03-08-2023 ambulatory Nettie Iqabl Other [employer] Other Start: 03-08-2023 Office outpatient vi sit 15 minutes Nettie Iqbal [facility] Start: 03-08-2023 Telephone encounter Nettie Iqbal [facility] Start: 03-02-2023 End: 03-02-2023 ambulatory Ana Kim Other [employer] Other Start: 03-02-2023 Telephone encounter Ana Julio [facility] Start: 02-27-2023 Office outpatient vi sit 25 minutes Ana Kim [facility] Start: 02-27-2023 End: 02-27-2023 Patient encounter procedure MD Nettie Iqbal Work Phone: [facility] Work Phone: Start: 02-27-2023 End: 02-27-2023 ambulatory MD Nettie Iqbal Work Phone: [facility] Work Phone: Start: 02-20-2023 End: 02-20-2023 ambulatory Nettie Iqbal Other [employer] Other Start: 02-20-2023 Telephone encounter Nettie Iqbal [facility] Start: 02-15-2023 End: 02-15-2023 ambulatory Nettie Iqbal Other [employer] Other Start: 02-15-2023 Telephone encounter Nettie Iqbal [facility] Start: 02-12-2023 End: 02-12-2023 ambulatory Nettie Iqbal Other [employer] Other Start: 02-12-2023 Telephone encounter Nettie Iqbal [facility] Start: 01-29-2023 End: 01-29-2023 ambulatory Kiran Amaya Other [employer] Other Start: 01-29-2023 Telephone encounter Kiran arnett [facility] Start: 01-26-2023 End: 01-26-2023 ambulatory Kiran Amaya Other [employer] Other Start: 01-26-2023 Telephone encounter Kiran arnett [facility] Start: 01-25-2023 End: 01-25-2023 ambulatory Nettie Iqbal Other [employer] Other Start: 01-25-2023 Telephone encounter Nettie Iqbal [facility] Start: 01-23-2023 End: 01-24-2023 ambulatory ROBIN FLANNERY Not Available Start: 01-22-2023 End: 01-22-2023 ambulatory Nettie Iqbal Other [employer] Other Start: 01-22-2023 Telephone encounter Nettie Kathy [facility] Start: 01-15-2023 (Televisit) Televisit Nettie Iqbal [facility] Start: 01-15-2023 End: 01-15-2023 ambulatory Nettie Iqbal Other [employer] Other Start: 01-12-2023 End: 01-12-2023 ambulatory Nettie Iqbal Other [employer] Other Start: 01-12-2023 Telephone encounter Nettie Iqbal [facility] Start: 01-11-2023 End: 01-11-2023 ambulatory MD Nettie Iqbal Work Phone: [facility] Work Phone: Start: 01-11-2023 End: 01-11-2023 Patient encounter procedure MD Nettie Iqbal Work Phone: [facility] Work Phone: Start: 12-28-2022 End: 12-28-2022 ambulatory Nettie Iqbal Other [employer] Other Start: 12-28-2022 Telephone encounter Nettie Iqbal [facility] Start: 12-26-2022 (Televisit) Televisit Nettie Iqbal F [facility] Start: 12-26-2022 End: 12-26-2022 ambulatory Nettie Iqbal Other [employer] Other Start: 12-25-2022 Telephone encounter Nettie Iqbal [facility] Start: 12-25-2022 End: 12-26-2022 ambulatory [place] RAMOS [place] [employer] Other Start: 12-25-2022 End: 12-25-2022 Patient encounter procedure [place] Caraballo RICHARD [facility] Start: 12-18-2022 End: 12-18-2022 Office outpatient new 45 minutes Libby Muñoz PA-C Work Phone: [facility] Comment on above: Pancreas cyst (Prima ry Dx) Start: 11-28-2022 End: 11-28-2022 ambulatory Kiran Amaya Other [employer] Other Start: 11-28-2022 Telephone encounter Kiran Vega [facility] Start: 11-27-2022 End: 11-27-2022 ambulatory Nettie Iqbal Other [employer] Other Start: 11-27-2022 Telephone encounter Nettie Iqbal [facility] Start: 11-23-2022 (Televisit) Televisit Nettie Iqbal [facility] Start: 11-23-2022 End: 11-23-2022 ambulatory Nettie Iqbal Other [employer] Other Start: 11-22-2022 End: 11-22-2022 ambulatory Nettie Iqbal Other [employer] Other Start: 11-22-2022 Telephone encounter Nettie Iqbal [facility] Start: 11-20-2022 End: 11-20-2022 Departed Referred MD Nettie Iqbal Work Phone: [facility] Work Phone: Start: 11-20-2022 End: 11-20-2022 Patient encounter procedure MD Nettie Iqbal Work Phone: [facility] Work Phone: Start: 11-20-2022 End: 11-20-2022 ambulatory MD Nettie Iqbal Work Phone: [facility] Work Phone: Start: 11-20-2022 Telephone encounter Nettie Iqbal [facility] Start: 11-15-2022 End: 11-15-2022 ambulatory Nettie Iqbal Other [employer] Other Start: 11-15-2022 Telephone encounter Nettie Iqbal [facility] Start: 11-09-2022 End: 11-09-2022 Patient encounter procedure MD Nettie Iqbal Work Phone: [facility] [place] Work Phone: Start: 11-09-2022 End: 11-09-2022 ambulatory MD Nettie Iqbal Work Phone: [facility] Work Phone: Start: 11-02-2022 End: 11-02-2022 ambulatory Nettie Iqbal Other [employer] Other Start: 11-02-2022 Telephone encounter Nettie Iqbal [facility] Start: 10-24-2022 End: 10-24-2022 ambulatory Nettie Iqbal Other [employer] Other Start: 10-24-2022 Office outpatient vi sit 15 minutes Nettie Iqbal [facility] Start: 10-19-2022 End: 10-19-2022 ambulatory Shira Cunningham Other [employer] Other Start: 10-19-2022 Telephone encounter Shira Cunningham [facility] Start: 10-18-2022 End: 10-18-2022 ambulatory Nettie Iqbal Other [employer] Other Start: 10-18-2022 Telephone encounter Nettie Kathy [facility] Start: 10-17-2022 End: 10-17-2022 ambulatory Ntetie Kathy Other [employer] Other Start: 10-17-2022 Telephone encounter Nettie Kathy [facility] Start: 10-05-2022 End: 10-05-2022 ambulatory Kiran Amaya Other [employer] Other Start: 10-05-2022 Telephone encounter Kiran Vega [facility] Start: 10-04-2022 End: 10-04-2022 ambulatory Nettie Kathy Other [employer] Other Start: 10-04-2022 Telephone encounter Nettie Kathy [facility] Start: 09-07-2022 End: 09-07-2022 ambulatory Kiran Amaya Other [employer] Other Start: 09-07-2022 Office outpatient vi sit 25 minutes Kiran Amaya [facility] Gastroenterology Start: 09-06-2022 End: 09-06-2022 ambulatory Nettie Kathy Other [employer] Other Start: 09-06-2022 Telephone encounter Nettie Kathy [facility] Start: 08-29-2022 End: 08-29-2022 ambulatory Nettie Kathy Other [employer] Other Start: 08-29-2022 Office outpatient vi sit 15 minutes Nettie Kathy [facility] Start: 08-25-2022 End: 08-25-2022 ambulatory Sandra Flores Other [employer] Other Start: 08-25-2022 Office outpatient vi sit 15 minutes Sandra Flores [facility] Start: 08-14-2022 End: 08-14-2022 ambulatory Phani Pruitt Other [employer] Other Start: 08-14-2022 Telephone encounter Phani Pruitt [facility] Start: 08-10-2022 End: 08-10-2022 ambulatory Phani Pruitt Other [employer] Other Start: 08-10-2022 Telephone encounter Phani GARCIA [facility] Start: 08-08-2022 End: 08-08-2022 ambulatory Nettie Iqbal Other [employer] Other Start: 08-08-2022 Telephone encounter Nettie Iqbal [facility] Start: 08-03-2022 End: 08-03-2022 ambulatory Nettie Iqbal Other [employer] Other Start: 08-03-2022 Office outpatient vi sit 15 minutes Nettie Iqbal [facility] Start: 07-27-2022 End: 07-28-[address] DOCTOR HYATT Facility:[facility] Start: 07-21-2022 End: 07-21-2022 ambulatory Phani Pruitt Other [employer] Other Start: 07-21-2022 Telephone encounter Phani GARCIA [facility] Start: 07-20-2022 End: 07-21-[address] PHANI PRUITT Facility:[facility] Start: 07-12-2022 End: 07-12-2022 ambulatory Phani Pruitt Other [employer] Other Start: 07-12-2022 Telephone encounter Phani Pruitt [facility] Start: 06-27-2022 End: 06-27-2022 ambulatory Vanessa Sanford Other [employer] Other Start: 06-27-2022 Telephone encounter Vanessa Sanford [facility] [address] Start: 06-22-2022 End: 06-22-2022 ambulatory Phani Pruitt Other [employer] Other Start: 06-22-2022 Telephone encounter Phani Pruitt [facility] Start: 06-20-2022 End: 06-20-2022 Departed Referred SHEILA Sanford Work Phone: [facility] [place] Work Phone: Start: 06-20-2022 End: 06-20-2022 ambulatory SHEILA Sanford Work Phone: [facility] Work Phone: Start: 06-20-2022 Office outpatient vi sit 15 minutes Vanessa Sanford [facility] Start: 06-16-2022 End: 06-17-[address] [facility] [employer] Other Start: 06-16-2022 Office outpatient vi sit 25 minutes Phani Pruitt [facility] Start: 06-06-2022 End: 06-07-2022 ambulatory AINSLEY WATERMAN . Facility: Start: 05-29-2022 End: 05-30-[address] [facility] [employer] Other Start: 05-29-2022 Office outpatient vi sit 25 minutes Phani Pruitt [facility] Start: 05-29-2022 Telephone encounter Phani Edmond [facility] Start: 05-12-2022 End: 05-12-2022 ambulatory Phani Pruitt Other [employer] Other Start: 05-12-2022 Telephone encounter Phani Edmond [facility] Start: 05-09-2022 End: 05-09-2022 ambulatory Phani Edmond Other [employer] Other Start: 05-09-2022 Office outpatient vi sit 15 minutes Phani Ball [facility] Start: 05-09-2022 Telephone encounter Phani Pruitt [facility] Start: 04-28-2022 End: 04-28-2022 ambulatory Phani Edmond Other [employer] Other Start: 04-28-2022 Telephone encounter Phani Ball [facility] Start: 04-24-2022 End: 04-24-2022 ambulatory Phani Pruitt Other [employer] Other Start: 04-24-2022 Telephone encounter [facility] Start: 04-20-2022 End: 04-20-2022 ambulatory Phani Pruitt Other [employer] Other Start: 04-20-2022 Telephone encounter [facility] Start: 04-17-2022 End: 04-17-[address] ABDELRAHMAN WEINSTEIN . Facility:[facility] Start: 04-16-2022 Encounter for other preprocedural examination DR ABDELRAHMAN WEINSTEIN . [facility] Start: 04-14-2022 End: 04-15-[address] ABDELRAHMAN WEINSTEIN . Facility:[facility] Start: 04-14-2022 End: 04-15-2022 Encounter for other preprocedural examination DR ABDELRAHMAN WEINSTEIN . Facility:[facility] Start: 04-13-2022 End: 04-13-2022 ambulatory Phani Pruitt Other [employer] Other Start: 04-13-2022 Telephone encounter [facility] Start: 04-10-2022 End: 04-10-[address] ABDELRAHMAN WEINSTEIN . Facility:[facility] Start: 03-25-2022 End: 03-25-2022 ambulatory Kiran Amaya Other [employer] Other Start: 03-25-2022 Telephone encounter Kiran arnett [facility] Start: 03-15-2022 End: 03-15-2022 ambulatory Phani Pruitt Other [employer] Other Start: 03-15-2022 Telephone encounter [facility] Start: 03-14-2022 End: 03-14-2022 ambulatory Kiran Amaya Other [employer] Other Start: 03-14-2022 Office outpatient vi sit 15 minutes Kiran Amaya [facility] G[facility] Start: 03-10-2022 End: 03-10-2022 ambulatory Phani Pruitt Other [employer] Other Start: 03-10-2022 Telephone encounter Phani Pruitt [facility] Start: 03-01-2022 Encounter for other preprocedural examination Nettie Iqbal Other [employer] Other Start: 03-01-2022 Pre-procedure evaluation check Nettie Iqbal Other [employer] Other Start: 02-23-2022 End: 02-24-[address] KIEL DÍAZ . Facility:[facility] Start: 01-20-2022 End: 01-20-2022 Admission to same day surgery center DO Phani Pruitt Work Phone: [facility] Start: 01-20-2022 End: 01-20-2022 ambulatory DO Phani Pruitt Work Phone: [facility] Work Phone: Start: 01-06-2022 End: 01-07-[address] WAI SEVERINO Facility:[facility] Start: 01-02-2022 End: 01-02-2022 ambulatory Kiran Amaya Other [employer] Other Start: 01-02-2022 Telephone encounter Kiran Vega [facility] Start: 12-09-2021 End: 12-09-2021 ambulatory Kiran Amaya Other [employer] Other Start: 12-09-2021 Office outpatient vi sit 25 minutes Kiran Amaya [facility] Start: 11-28-2021 End: 11-29-[address] PHANI PRUITT Facility:[facility] Start: 11-10-2021 End: 11-10-2021 ambulatory Kiran Amaya Other [employer] Other Start: 11-10-2021 Telephone encounter Kiran arnett [facility] Start: 10-20-2021 End: 10-20-[address] PHANI PRUITT Facility:[facility] Start: 10-16-2021 End: 10-16-[address] PHANI PRUITT Facility:[facility] Start: 10-05-2021 End: 10-05-2021 ambulatory AINSLEY WATERMAN . Facility:[facility] Start: 09-30-2021 ambulatory SANTA Garrett Facili ty:[facility] Start: 09-29-2021 End: 09-29-2021 ambulatory Janna Pina Other [employer] Other Start: 09-29-2021 Telephone encounter Janna Pina [facility] Start: 09-20-2021 Adult health examination Nettie Iqbal Other [employer] Other Start: 09-20-2021 Encounter for genera l adult medical examination without abnormal findings Nettie Iqbal Other [employer] Other Start: 09-05-2021 End: 09-05-2021 ambulatory Ambrose Torres Other [facility] Other Start: 09-05-2021 Office outpatient vi sit 15 minutes Ambrose Torres [facility] Start: 08-31-2021 End: 09-01-[address] PHANI PRUITT Facility:[facility] Start: 07-08-2021 End: 07-08-2021 ambulatory Janna Pina Other [facility] Other Start: 07-08-2021 Telephone encounter Janna Pina [facility] Start: 06-13-2021 End: 06-13-2021 ambulatory Janna Pina Other [facility] Other Start: 06-13-2021 Office outpatient vi sit 25 minutes Janna Pina [facility] Start: 04-13-2021 End: 04-13-2021 ambulatory Shira Cunningham Other [facility] Other Start: 04-13-2021 Office outpatient vi sit 15 minutes Shira Marisa [facility] Start: 02-28-2021 End: 02-28-2021 ambulatory Janna Pina Other [facility] Other Start: 02-28-2021 Telephone encounter Janna Pina [facility] Start: 01-31-2021 End: 01-31-2021 ambulatory Janna Pina Other [facility] Other Start: 01-31-2021 Telephone encounter Janna Pina [facility] Start: 01-20-2021 End: 01-20-2021 ambulatory Janna Pina Other [facility] Other Start: 01-20-2021 Office outpatient vi sit 25 minutes Janna Pina [facility] Start: 01-20-2021 Telephone encounter Janna Pina [facility] Start: 12-07-2020 Office outpatient vi sit 25 minutes Janna Pina [facility] Procedures Date Procedure Procedure Detail Performing Clinician Start: 11-02-2023 MRI of abdomen with contrast MD Nettie johnson Work Phone: Start: 06-22-2023 Urine culture MD Nettie Iqbal Work Phone: Start: 04-19-2023 Study Interpretation of outside study Non-[facility]iology Contrast Provider Start: 02-27-2023 X-ray of lumbar spine, four views MD Anny Iqbal Work Phone: Start: 01-11-2023 Urine culture MD Nettie Iqbal Work Phone: Start: 11-20-2022 Urine culture MD Nettie Iqbal Work Phone: Start: 11-09-2022 Magnetic resonance cholangiopancreatography MD Nettie Iqbal Work Phone: Start: 01-20-2022 End: 01-20-2022 Colonoscopy DO Phani Pruitt Work Phone: Start: 09-19-2017 Screening for malignant neoplasm of colon Nettie Iqbal Other Start: 09-19-2017 Screening for osteoporosis Nettie Iqbal Other Start: 09-19-2017 Screening mammography Nettie Iqbal Other Depression screening Nettie Iqbal Other Screening for malign ant neoplasm of breast Nettie Iqbal Other Plan of Treatment Date Care Activity Detail Author Start: 01-21-2032 Screening for malign ant neoplasm of colon [facility] Start: 11-26-2023 Patient referral [facility] Work Phone: Start: 07-26-2023 Patient referral [facility] Work Phone: Start: 06-24-2023 Patient referral [facility] Work Phone: Start: 06-22-2023 Bacteria identified in Urine by Culture [facility] Start: 03-12-2023 Annual Wellness Visi t (Medicare Advantage) Annual Wellness Visit (Medicare Advantage) [facility] Start: 01-11-2023 Bacteria identified in Urine by Culture [facility] Start: 11-10-2022 COVID-19 Vaccine ( season) COVID-19 Vaccine ( season) [facility] Start: 01-20-2022 [facility] Start: 03-28-2021 COVID-19 Vaccine (4 - Pfizer series) COVID-19 Vaccine (4 - Pfizer series) [facility] Start: 09-18-2020 Pneumococcal Vaccine : 65+ Years (3 - PPSV23 or PCV20) Pneumococcal Vaccine: 65+ Years (3 - PPSV23 or PCV20) [facility] Start: 06-03-2020 Pneumococcal 65+ yea rs Vaccine (2 of 2 - PCV) Pneumococcal 65+ years Vaccine (2 of 2 - PCV) [facility] Start: 06-03-2020 Pneumococcal Vaccine : 65+ Years (2 - PCV) Pneumococcal Vaccine: 65+ Years (2 - PCV) [facility] Start: 12-13-2016 Shingles vaccine (2 of 3) Allan gles vaccine (2 of 3) [facility] Start: 12-13-2016 Zoster Vaccines (2 of 3) Zoste r Vaccines (2 of 3) [facility] Start: 12-08-2016 DTaP/Tdap/Td Vaccine s (1 - Tdap) DTaP/Tdap/Td Vaccines (1 - Tdap) [facility] Start: 2015 Hepatitis B Vaccines (1 of 3 - Risk 3-dose series) Hepatitis B Vaccines (1 of 3 - Risk 3-dose series) [facility] Start: 2015 Respiratory Syncytia l Virus (RSV) or age 60 yrs+ (1 - 1-dose 60+ series) Respiratory Syncytial Virus (RSV) or age 60 yrs+ (1 - 1-dose 60+ series) [facility] Start: 06-03-2010 Screening for osteoporosis DEXA (modify frequency per FRAX score) [facility] Start: 06-03-2005 Screening for malign ant neoplasm of breast Breast cancer screen [facility] Start: 06-03-2000 Screening for malign ant neoplasm of colon [facility] Start: 1995 Lipid panel Lipids [facility] Start: 1995 Screening for malign ant neoplasm of breast Mammogram [facility] Start: 06-03-1977 DTaP/Tdap/Td Vaccine s (1 - Tdap) DTaP/Tdap/Td Vaccines (1 - Tdap) [facility] Start: 06-03-1974 DTaP/Tdap/Td vaccine (1 - Tdap) DTaP/Tdap/Td vaccine (1 - Tdap) [facility] Start: 06-03-1974 Hepatitis A Vaccines (1 of 2 - Risk 2-dose series) Hepatitis A Vaccines (1 of 2 - Risk 2-dose series) [facility] Start: 06-03-1973 Diabetes mellitus screening Diabetes Screening [facility] Start: 06-03-1973 Hepatitis C screening [facility] Start: 1967 Depression Screen Depression Screen [facility] Start: 1955 Lipid panel Lipid Panel [facility] Start: 1955 Medicare Annual Well ness Visit Medicare Annual Wellness Visit (AWV) [facility] Start: 1955 Screening for malign ant neoplasm of colon [facility] Start: 1955 Screening for osteoporosis Bone Density Scan [facility] Start: 1955 Yearly Adult Physical Yearly Adult P hysical [facility] Atopobium vaginae DN A [Presence] in Vaginal fluid by JOSH with probe detection [facility] Bacteria identified in Urine by Culture [facility] Bacterial vaginosis associated bacterium 2 DNA [Presence] in Vaginal fluid by JOSH with probe detection [facility] Megasphaera sp type 1 DNA [Presence] in Vaginal fluid by JOSH with probe detection [facility] Patient Education Colitis Hemorr hoids (DC) [facility] Work Phone: Patient referral [facility] Work Phone: End: 06-15-2023 Perq vertebroplasty uni/bi injx cervicothoracic [facility] Work Phone: Comment on above: 1 Occurrences starti ng 06/15/2023 until 06/15/2023 Study Interpretation of outside study MR transfer of outside films Imaging Routine 04/19/2023 11:05 AM EST [facility] [[email or web address] Service Area Work Phone: End: 06-15-2023 Vertebroplasty each addl cervicothor/lumbosacral [facility] Comment on above: 1 Occurrences starti ng 06/15/2023 until 06/15/2023 [facility] Immunizations Immunization Date Immunization Notes Care Provider Sergey garcia 10-24-2022 Flu vaccine, quadrivalent, high-dose, preservative free, age 65y+ (FLUZONE) Libby Muñoz PA-C Work Phone: [facility] Work Phone: 12-24-2021 influenza, high dose seasonal, preservative-free Libby Muñoz PA-C Work Phone: [facility] Work Phone: 11-28-2021 influenza virus vaccine, split virus (incl. purified surface antigen) Nettie Iqbal Other [facility] Other 11-28-2021 influenza virus vaccine, unspecified formulation [facility] 11-28-2021 Influenza, Seasonal, Quadrivalent, Adjuvanted Libby MILLER-C Work Phone: [facility] Work Phone: 01-31-2021 COVID-19 mRNA, Comirnaty (Pfizer) DO [employer] Work Phone: [facility] 12-15-2020 influenza virus vaccine, split virus (incl. purified surface antigen) Nettie Iqbal Other [facility] Other 12-15-2020 influenza virus vaccine, unspecified formulation [facility] 12-15-2020 Seasonal trivalent influenza vaccine, adjuvanted, preservative free Libby MILLER-C Work Phone: [facility] Work Phone: 07-30-2020 COVID-19 mRNA, Comirnaty (Pfizer) DO [employer] Work Phone: [facility] 07-09-2020 COVID-19 mRNA, Comirnaty (Pfizer) DO [employer] Work Phone: [facility] 12-26-2019 influenza virus vaccine, split virus (incl. purified surface antigen) Nettie Iqbal Other [facility] Other 12-26-2019 influenza virus vaccine, unspecified formulation [facility] 09-19-2019 pneumococcal conjuga te vaccine, 13 valent Nettie Iqbal Other [facility] 01-29-2019 Influenza, injectabl e, Madin Kaylah Canine Kidney, preservative free, quadrivalent Libby Muñoz PA-C Work Phone: [facility] Work Phone: 01-07-2018 influenza virus vaccine, split virus (incl. purified surface antigen) Nettie Iqbal Other [employer] Other 01-07-2018 influenza virus vaccine, unspecified formulation [facility] 01-07-2018 Influenza, injectabl e, Madin Kaylah Canine Kidney, quadrivalent with preservative Libby Gonsalesw PA-C Work Phone: [facility] Work Phone: 12-07-2016 influenza, seasonal, injectable Libby Muñoz PA-C Work Phone: [facility] Work Phone: 12-07-2016 tetanus and diphther ia toxoids, adsorbed, preservative free, for adult use (5 Lf of tetanus toxoid and 2 Lf of diphtheria toxoid) Nettie Iqbal Other [facility] 10-18-2016 zoster vaccine, live Libby Muñoz PA-C Work Phone: [facility] Work Phone: 04-24-2016 zoster vaccine, live Nettie Iqbal Other [facility] 12-10-2013 influenza, injectabl e, madin kaylah canine kidney, preservative free Libby Gonsalesw PA-C Work Phone: [facility] Work Phone: 01-18-2013 pneumococcal polysaccharide vaccine, 23 valent Nettie Iqbal Other [facility] 10-25-2011 pneumococcal polysaccharide vaccine, 23 valent Libby Muñoz PA-C Work Phone: [facility] Work Phone: 01-10-2005 pneumococcal polysaccharide vaccine, 23 valent Janna Pina Other [employer] Other 02-05-2001 pneumococcal polysaccharide vaccine, 23 valent Libby Muñoz PA-C Work Phone: [facility] Work Phone: Payers Date Payer Category Payer Unknown SELF FUNDED SELF FUNDED [id number] 2022-Present [address] [place] [address] [id number] 2022 Self-pay [id number] 2022 Medicare HUMANA MEDICARE HUMANA GOLD CHOICE [id number] 2022-Present [address] [address] [place] [address] [id number] 1959 Medicare [id number] [id number] 1955 Unknown [id number] 2.16.840.1.897580.3.579.2.593 1955 Unknown [id number] 2.16.840.1.747033.3.579.2.593 1955 Unknown [id number] 2.16.840.1.328622.3.579.2.593 1955 Unknown [id number] 2.16.840.1.754417.3.579.2.593 1955 Unknown [id number] 2.16.840.1.717428.3.579.2.593 1955 Unknown [id number] 2.16.840.1.321175.3.579.2.593 1955 Unknown [id number] 2.16.840.1.241127.3.579.2.593 1955 Unknown [id number] 2.16.840.1.905191.3.579.2.593 1955 Unknown [id number] 2.16.840.1.243712.3.579.2.593 1955 Unknown [id number] 2.16.840.1.441938.3.579.2.593 1955 Unknown [id number] 2.16.840.1.041447.3.579.2.593 1955 Unknown [id number] 2.16.840.1.068235.3.579.2.593 1955 Unknown [id number] 2.16.840.1.424849.3.579.2.593 1955 Unknown [id number] 2.16.840.1.263341.3.579.2.593 1955 Unknown [id number] 2.16.840.1.919975.3.579.2.593 1955 Unknown [id number] 2.16.840.1.368471.3.579.2.593 1955 Unknown [id number] 2.16.840.1.342186.3.579.2.727 1955 Unknown [id number] 2.16.840.1.290125.3.579.2.125 9 1955 Unknown [id number] 2.16.840.1.308140.3.579.2.125 9 1955 Unknown [id number] 2.16.840.1.461680.3.579.2.125 9 1955 Unknown [id number] 2.16.840.1.487262.3.579.2.173 1955 Unknown [id number] 2.16.840.1.260614.3.579.2.182 Medicare Medicare [id number] Medicare [id number] 2.16.840.1.184764.19 Unknown [id number] 2.16.840.1.229926.3.579.2.531 Unknown [id number] 2.16.840.1.272443.3.579.2.531 Unknown [id number] 2.16.840.1.814114.3.579.2.531 Unknown [id number] 2.16.840.1.484402.3.579.2.531 Social History Date Type Detail Facility Unknown if ever smoked [facility] Other Start: 06-15-2023 Sex Assigned At [facility] Start: 01-20-2022 End: 02-12-2022 Tobacco smoking status NHIS Ex-smoker (finding) [facility] Start: 1955 Sex Assigned At Female [facility] Tobacco smoking stat [facility] Tobacco smoking consumption unknown [facility] Work Phone: Start: 12-17-2022 Gender identity Identifies as female gender (finding) [facility] Work Phone: Start: 12-17-2022 Sexual orientation Heterosexual (finding) [facility] Work Phone: Tobacco smoking status No Smokin g Status Entered [facility] Start: 08-11-2023 History of tobacco use Current smoker [facility] History of tobacco use Cigarette Smoker [facility] Start: 06-15-2023 History of Social function [facility] Start: 1955 Sex Assigned At Not on file [facility] Medical Equipment Procedure Code Equipment Code Equipment Origin al Text Equipment Identifier Dates Kyphoplasty Orthopaedic ceme nt, non-medicated [id number] Start: 06-24-2019 Cement Bne 20 Gm Hi Visc Radiopaque Vertaplex Hv - [id number] Start: 06-15-2023 Comment on above: Description: Thoraci c 11 & thoracic 12 Goals Date Patient Goal Desired Activity /State Clinical Notes 12-07-2020 to 06-15-2023 Carolina De Jesus RN - 06/15/2023 2:40 PM EDTCCarolina nunez RN - 06/15/2023 11:35 AM EDTDischarge InstructionsAttachments Note Date & Type Note Facility 06-15-2023 History of Presen t illness Narrative Pt returned to CT holding post vertebroplasty x2. Alert and oriented. Lying flat. Denies pain at this time. 2 dermabond sites to mid back, CD&I. Assisted to drink soda, drinking without difficulty. 1500 Pt resting on cart. Son at bedside. Eating cookies without difficulty. Continues to deny pain. 1519 Pt assisted out of bed to go to restroom via w/c with 2 nurses. 2 skin glue sites remain CD&I. 1530 Pt assisted to get dressed. Discharge instructions reviewed with patient and her son, Dilma. All questions answered and both deny further needs. Pt arrived to CT holding ambulatory with walker. Alert and oriented. Pt changed into gown. Pt hooked up to vitals sign machine. VSS. Medical history, allergies, and home medications reviewed with patient. Consents reviewed with patient and signed. Pt resting on cart in stable condition. Confirmed NPO status. Iv established to left AC. Pt states she has an active DRN-CC order on file at [facility]. Dr. Carbajal notified. 1222 Dr[address] Gonsalves notified pt ready to be seen. 1257 Dr. Villeda [facility], speaking to patient. Dr. Villeda aware of pt's wishes to remain DNR-CC. Also aware of bradycardia. 1300 Dr Gonsalves speaking to via phone. 1309 Dr. Villeda at [facility] for nerve block procedure. Time out performed. 1316 Nerve block performed 1324 Dr. Carbajal [facility] to discuss procedure. Risks/benefits discussed, all questions answered. 1330 Pt to Special procedures via cart for procedure. documented in this encounter [facility] 06-15-2023 Hospital Discharg e April Zuñiga RN - 06/15/2023 1:43 PM EDT Discharge Instructions: ACTIVITY: - Rest today with no heavy lifting, pushing/pulling, bending or stretching for at least 48 hrs. - Resume activity gradually, avoid lifting anything over 10 POUNDS FOR 1 WEEK. - No driving for 24 hours. BATHING: - Glue/skin adhesive is used instead of a bandage. The glue will wear off in time, 5 to 10 days, do NOT scrub when showering. Do NOT use antibiotic ointment, it can break down the glue. - May shower after 48 hours. - Dry your skin by gently patting the site with a clean towel. - No bath, no hot tub, and/or no swimming for 14 days or until healed. DISCOMFORT: - It is normal to have some discomfort at the incision site for 24 to 48 hours. Some bruising is to be expected for up to a week. Ice pack for 10 minute intervals to site may help. Be sure to not place ice pack directly on skin. MEDICATION: - May use tylenol, ibuprofen, or previously prescribed pain medication to alleviate pain or discomfort. Do not exceed label usage on the bottle. May resume medications, except any blood thinners resume as per physician. DIET: - May resume your normal diet. Any questions or concerns, contact one of the Interventional Radiology nurses during normal business hours (Sunday-Sunday 8am-6pm) at [phone] and have them paged. You may also contact Dr. Carbajal office with any questions or concerns at [phone]. The following attachments cannot be sent through Care Everywhere.Vertebroplasty: Post-op (Lithuanian)Sedation (Lithuanian)documented in this encounter [facility] 04-11-2023 Evaluation note Encounter Date Diagnosis Assessment [...] referral for surgical evaluation for kyphoplasty at [facility]. Dr Iqbal is out of the office. [facility] Other 12-28-2023 Evaluation note* Encounter Date Diagnosis [...] and start weight bearing exercises as tolerated [facility] Other 12-19-2023 Evaluation note* Encounter Date Diagnosis [...] MRI of the lumbar spine at the [facility]. Discussion of new versus old in [...] T12 vertebra, initial encounter (ICD-10 - S22.080A) [facility] Other 11-20-2023 Evaluation note* Encounter Date Diagnosis Assessment Notes Treatment Notes Treatment Clinical Notes Jan, Pancreatic cyst (ICD-10 - K86.2) [facility] Other 11-17-2023 Evaluation note* Encounter Date Diagnosis Assessment Notes Treatment Notes Treatment Clinical Notes Jan, Pancreatic cyst (ICD-10 - K86.2) [facility] Other 11-06-2023 Evaluation note* Encounter Date Diagnosis [...] sooner. Otherwise on his schedule on 02/01 [facility] Other 10-17-2023 Evaluation note* Encounter Date Diagnosis Assessment Notes Treatment Notes Treatment Clinical Notes Dec, Bronchitis (ICD-10 - J40) Reviewed medications. Take antibiotics till finished. Okay to continue Mucinex. Dec, Yeast infection (ICD-10 - B37.9) Dec, 2022 Closed fracture of right tibial plateau with routine healing, subsequent encounter (ICD-10 - S82.141D) Reviewed OARRS report. Recently sent in pain medication. States pain is adequately controlled with present prescription. [facility] Other 10-16-2023 Evaluation note* Encounter Date Diagnosis Assessment Notes Treatment Notes Treatment Clinical Notes Dec, Moderate episode of recurrent major depressive disorder (ICD-10 - F33.1) [facility] Other 10-09-2023 History of Present illness Narrative* [...] neuropathy, TIA x 3, GI bleed in 2020. Surgical history: Hysterectomy, bilateral carpal tunnel release, [...] but prefers to have this done in [place] with Dr. Amaya as she is unable to drive to a facility. Libby Muñoz PA-C documented in this [facility] Work Phone: [phone]) 797-768909-14-2023 Evaluation note* Encounter Date Diagnosis Assessment Notes [...] and change to a portable oxygen concentrator. [facility] Other 09-14-2023 Evaluation note* Encounter Date Diagnosis [...] POC setting at 2 via nasal cannula. [facility] Other 09-11-2023 Evaluation note* Encounter Date Diagnosis Assessment Notes Treatment Notes Treatment Clinical Notes Nov, Dysuria (ICD-10 - R30.0) [facility] Other 08-24-2023 Evaluation note* Encounter Date Diagnosis Assessment Notes Treatment Notes Treatment Clinical Notes Oct, Fibromyalgia (ICD-10 - M79.7) [facility] Other 08-15-2023 Evaluation note* Encounter Date Diagnosis [...] Reviewed OARRS report. Continue meds and treatment. [facility] Other 07-27-2023 Evaluation note* Encounter Date Diagnosis Assessment Notes Treatment Notes Treatment Clinical Notes Sep, Diverticular disease (ICD-10 - K57.90) [facility] Other 07-26-2023 Evaluation note* Encounter Date Diagnosis Assessment Notes Treatment Notes Treatment Clinical Notes Sep, Lumbar spondylosis (ICD-10 - M47.816) [facility] Other 06-29-2023 Evaluation note* Encounter Date Diagnosis Assessment Notes Treatment Notes Treatment Clinical Notes Aug, Diverticular disease (ICD-10 - K57.90) Patient reports constipation and she will try linzess 290 mg prescription sent to pharmacy RTO 3 months Aug, GERD (gastroesophageal reflux disease) (ICD-10 - K21.9) Aug, Pancreas cyst (ICD-10 - K86.2) [place] [facility] [place] [facility] Other 06-28-2023 Evaluation note* Encounter Date Diagnosis Assessment Notes Treatment Notes Treatment Clinical Notes Aug, Lumbar spondylosis (ICD-10 - M47.816) [facility] Other 06-20-2023 Evaluation note* Encounter Date Diagnosis [...] into present EMR for 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 [facility] Other 06-16-2023 Evaluation note* Encounter Date Diagnosis Assessment Notes Treatment Notes Treatment Clinical Notes Aug, COPD exacerbation (ICD-10 - J44.1) Discussed with patient exam and history is consistent with COPD exacerbation. Rapid COVID is negative in office. Will cover with azithromycin and prednisone burst. Continue maintenance and rescue inhaler as needed. May use Mucinex DM [id number]. Patient has follow-up with PCP next week. Advised to follow-up sooner if any rapidly increasing shortness of breath, wheezing, signs of respiratory distress. Patient verbalized understanding of treatment plan. Patient reports history of frequent yeast infections with antibiotic use. Requesting Diflucan. Dose sent. Advised should only take it develop symptoms. Patient verbalized understanding. Aug, Congestion of nasal sinus (ICD-10 - R09.81) [facility] Other 06-01-2023 Evaluation note* Encounter Date Diagnosis Assessment Notes Treatment Notes Treatment Clinical Notes Aug, Lumbar spondylosis (ICD-10 - M47.816) [facility] Other 05-25-2023 Evaluation note* Encounter Date Diagnosis Assessment Notes Treatment Notes Treatment Clinical Notes July, Chronic obstructive pulmonary disease with (acute) lower respiratory infection (ICD-10 - J44.0) Discussed prednisone could help her hip pain and her wheezing for a short term treatment July, Insomnia, idiopathic (ICD-10 - F51.01) d/c remeron start trazodone. f/u in 1 month [facility] Other 05-03-2023 Evaluation note* Encounter Date Diagnosis Assessment Notes Treatment Notes Treatment Clinical Notes July, Lumbar spondylosis (ICD-10 - M47.816) [facility] Other 04-11-2023 Evaluation note* Encounter Date Diagnosis [...] send in medication if needed. Follow-up with REPULPING SUPERVISOR if no improvement of symptoms. Immediate evaluation in ER for signs/symptoms as discussed. Patient verbalizes understanding and is agreeable with treatment plan. [facility] Other 04-07-2023 Evaluation note* Encounter Date Diagnosis [...] and ulcerations. May be worsened by Lyrica [facility] Other 03-20-2023 Evaluation note* Encounter Date Diagnosis [...] - R53.83) Healthy diet and keep active [facility] Other 03-03-2023 Evaluation note* Encounter Date Diagnosis Assessment Notes Treatment Notes Treatment Clinical Notes May, Lumbar spondylosis (ICD-10 - M47.816) [facility] Other 03-03-2023 Evaluation note* Encounter Date Diagnosis Assessment Notes Treatment Notes Treatment Clinical Notes May, Acute bronchitis due to other specified organisms (ICD-10 - J20.8) [facility] Other 02-28-2023 Evaluation note* Encounter Date Diagnosis [...] hours as needed for cough and dyspnea [facility] Other 02-28-2023 Evaluation note* Encounter Date Diagnosis Assessment Notes Treatment Notes Treatment Clinical Notes Apr, Chronic obstructive pulmonary disease with (acute) exacerbation (ICD-10 - J44.1) [employer] Other 02-02-2023 Evaluation note* Encounter Date Diagnosis Assessment Notes Treatment Notes Treatment Clinical Notes Apr, Lumbar spondylosis (ICD-10 - M47.816) [facility] Other 01-04-2023 Evaluation note* Encounter Date Diagnosis Assessment Notes Treatment Notes Treatment Clinical Notes Mar, Lumbar spondylosis (ICD-10 - M47.816) [facility] Other 01-03-2023 Evaluation note* Encounter Date Diagnosis Assessment Notes Treatment Notes Treatment Clinical Notes Mar, Diverticular disease (ICD-10 - K57.90) continue dicyclomine as needed. Mar, Alternating constipation and diarrhea (ICD-10 - R19.8) start metamucil gummies every day. Mar, GERD (gastroesophageal reflux disease) (ICD-10 - K21.9) patient to continue pantoprazole [facility] Other 11-11-2022 Procedure [facility]09-30-2022 Evaluation note* Encounter Date Diagnosis Assessment Notes Treatment Notes Treatment Clinical Notes Nov, Lower abdominal pain (ICD-10 - R10.30) PATIENT STATES THAT SHE DOES HAVE BURNING. Nov, Constipation (ICD-10 - K59.00) PATIENT STATES MOVING BOWELS EVERYDAY PATIENT DID REDUCE THE DICYCLOMINE TO NEEDED WHN CONSTIPATED THIS MADE IT WORSE PATIENT IS ADVISED WE WILL START MOVANTIK [employer] Other 09-01-2022 Evaluation note* Encounter Date Diagnosis Assessment Notes Treatment Notes Treatment Clinical Notes Nov, GERD (gastroesophageal reflux disease) (ICD-10 - K21.9) [facility] Other 08-11-2022 NotePROCEDURE: XR HIP RT 2 3V W PELVIS COMPARISON: None. HISTORY: Injury of right hip region FINDINGS: BONES:No acute fracture or dislocation. Minimal degenerative osteoarthropathy of the hips SOFT TISSUES:Negative. No visible soft tissue swelling. EFFUSION:None visible. OTHER: Negative. IMPRESSION: No acute abnormality Electronically authenticated by: JANNA LAWTON Date: 2021-10-20 12:03[facility]06-27-2022 Evaluation note* Encounter Date Diagnosis Assessment [...] although I think that is less likely. [facility] Other 04-04-2022 Evaluation note* Encounter Date Diagnosis Assessment Notes Treatment Notes Treatment Clinical Notes Jun, LUQ abdominal pain (ICD-10 - R10.12) CONTINUE DICYCLOMINE 20 MG TID RTO 6-8 WEEKS Jun, Irritable bowel syndrome with diarrhea (ICD-10 - K58.0) Jun, Bloating (ICD-10 - R14.0) Jun, GERD (gastroesophageal reflux disease) (ICD-10 - K21.9) STOP OMEPRAZOLE [facility] Other 02-02-2022 Evaluation note* Encounter Date Diagnosis [...] Patient care instructions given in writting by [facility] document. [facility] Other 11-11-2021 Evaluation note* Encounter Date Diagnosis Assessment Notes Treatment Notes Treatment Clinical Notes Jan, Irritable bowel syndrome with diarrhea (ICD-10 - K58.0) OBTAIN COLONOSCOPY FROM [facility] IN 06/2019Jan, Lower abdominal pain (ICD-10 - R10.30) STOP DICYCLOMINE PT TO REPORT PROGRESS Jan, Bloating (ICD-10 - R14.0) Jan, Rectal burning (ICD-10 - K62.89) [facility] Other 09-28-2021 Evaluation note* Encounter Date Diagnosis Assessment Notes Treatment Notes Treatment Clinical Notes Nov, Irritable bowel syndrome with diarrhea (ICD-10 - K58.0) Nov, Generalized abdominal pain (ICD-10 - R10.84) Nov, Abdominal bloating (ICD-10 - R14.0) Nov, History of ischemic colitis (ICD-10 - Z87.19) Nov, Other CT ABD /PELVIS START DICYCLOMINE 20 MG TID ROT 4-6 WEEKS Diarrhea material was printed [place] [employer] Other Evaluation + Plan note No data available for this section [facility] evaluation noteNo InformationNort [employer] Other Evaluation noteNo assessment information available [facility] Work Phone: Evaluation note* Diagnosis 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 documented in this encounter [facility] Work Phone: Evaluation note* Diagnosis Compression fracture of T12 vertebra with delayed healing, subsequent encounter Other osteoporosis with current pathological fracture, vertebra(e), initial encounter for fracture (HCC) [facility] Diagnosis Onset Date Resolution Status Anxiety acute Right femoral fracture acute UTI (urinary tract infection) acute Vertebral compression fracture acute Fibromyalgia chronic Anxiety acute COPD exacerbation resolved [facility] Work Phone: Evaluation note* Diagnosis Onset Date Resolution Status Anxiety acute COPD exacerbation resolved Fibromyalgia chronic [facility] Work Phone: Evaluation note* Diagnosis Onset Date Resolution Status COPD exacerbation resolved Anxiety acute Right femoral fracture acute UTI (urinary tract infection) acute Vertebral compression fracture acute Fibromyalgia chronic [facility] Work Phone: Evaluation note* Diagnosis Onset Date Resolution Status Anxiety acute Right femoral fracture acute UTI (urinary tract infection) acute Vertebral compression fracture acute Fibromyalgia chronic Constipation acute GERD (gastroesophageal reflux disease) acute Pancreatic lesion acute [facility] Work Phone: History general Narrative - Reported* Type Description Date Medical History CVA x 3 Medical History Fibromyalgia Medical History COPD Medical History Neuropathy Medical History DDD Medical History depression Medical History hepatitis B 1972 Medical History diverticulitis hx Surgical History HYSTERECTOMY Surgical History Hysterectomy 1980 Surgical History CTR B/L 2010 Surgical History Lung surgery, pneumothorax 1982 Surgical History r/o neck lesion, bx salivary gl and HHT Hospitalization History Hep B 1972 Hospitalization History diverticulitis [facility] Other [facility] Narr[facility] - Reported* Type Description Date Medical History CVA x 3 Medical History Fibromyalgia Medical History COPD Medical History Neuropathy Medical History DDD Medical History depression Medical History hepatitis B 1971 Medical History diverticulitis hx Surgical History HYSTERECTOMY Surgical History Hysterectomy 1980 Surgical History CTR B/L 2010 Surgical History Lung surgery, pneumothorax 1981 Surgical History r/o neck lesion, bx salivary gl and HHT Surgical History excision vaginal polyp 04/2022 Hospitalization History Hep B 1972 Hospitalization History diverticulitis Hospitalization History chest pain in Jan 2022 - non cardiac [facility] Other [facility] [place] [employer] Other [facility] Narr[facility] - Reported* Type Description Date Medical History CVA x 3 Medical History Fibromyalgia Medical History COPD Medical History Neuropathy Medical History DDD Medical History depression Medical History hepatitis B 1971 Medical History diverticulitis hx Medical History Arthritis [...] pain in Jan 2022 - non cardiac [facility] Other Hospital Discharge instructions Additional Instructions DISCHARGE [...] if you have any problems. -Office number [phone] Work Phone: Hospital Discharge instructions No data available for this section [facility] Hospital Discharge instructionsAmbulatory Orders* Referral to Gastroenterology Time Frame: 11/26/23, Location: None [facility] Work Phone: Progress note No data available for this section [facility] reason for visit NarrativePAIN MANAGEMENT REFERRAL UPDATENof[facility] [place] [employer] Other Chief Complaint and Reason for Visit Chief Complaint Constipation, Abdomi nal Pain Chief Complaint Vaginal discharge Chief Complaint K86.2 Chief Complaint K86.2 dysuria Chief Complaint flank pain, dysuria Z87.81 Chief Complaint 4 Wk F/U Comp Fx Amb Documentation medication review Chief Complaint 4 Wk F/U Comp Fx Amb Documentation medication review Dysuria Chief Complaint Amb Documentation medication review R30.0 mental health issues [phone] head and chest cold since wed Reason for Visit Anxiety Right femoral fracture UTI (urinary tract infection) Vertebral compression fracture Fibromyalgia Anxiety COPD exacerbation Chief Complaint mental health issues [phone] head and chest cold since wed 3 month f/u Reason for Visit Anxiety COPD exacerbation Fibromyalgia Chief Complaint head and chest cold since wed 3 month f/u K86.2 Reason for Visit COPD exacerbation Anxiety Right femoral fracture UTI (urinary tract infection) Vertebral compression fracture Fibromyalgia Chief Complaint 3 month f/u K86.2 follow up/MRI Reason for Visit Anxiety Right femoral fracture UTI (urinary tract infection) Vertebral compression fracture Fibromyalgia Constipation GERD (gastroesophageal reflux disease) Pancreatic lesion Family History Relationship Condition Age at Onset Recorded Date/T jose grandparent Malignant neoplasm of breast Unknown Not Specified Heart disease Unknown Relationship Condition Age at Onset Recorded Date/T jose grandparent Malignant neoplasm of breast Unknown Not Specified Heart disease Unknown brother Unknown father Heart disease Unknown Malignant neoplasm Unknown Unknown grandparent Malignant neoplasm Unknown Not Specified Diabetes mellitus Unknown Heart disease Unknown History of stroke Unknown Relationship Condition Age at Onset Recorded Date/T jose grandparent Malignant neoplasm of breast Unknown mother Heart disease Unknown brother Unknown father Heart disease Unknown Malignant neoplasm Unknown Unknown grandparent Malignant neoplasm Unknown mother Diabetes mellitus Unknown Heart disease Unknown History of stroke Unknown Advance Directives Advance Directive Response Recorded Date/ Time Advance Directives No April 18, 2019 2:20am Advance Directive Response Recorded Date/ Time Advance Directives No April 18, 2019 3:20am Summary Purpose Reason for Referral Specialty Diagnoses / Procedures Referred By Costa macdonald Referred To Contact Radiology Diagnoses Compression fracture of T12 vertebra with delayed healing, subsequent encounter Other osteoporosis with current pathological fracture, vertebra(e), initial encounter for fracture (HCC) Procedures IR VERTEBROPLASTY EACH ADDITIONAL Gabby Lo, SHEILA - PREFLIGHT MECHANIC [address] [address] Referral ID Status Reason Start Date Expiration Date Visits Re quested Visits Authorized [id number] Open 05/29/2023 05/28/2024 1 1 Specialty Diagnoses / Procedures Referred By Costa macdonald Referred To Contact Radiology Diagnoses Compression fracture of T12 vertebra with delayed healing, subsequent encounter Other osteoporosis with current pathological fracture, vertebra(e), initial encounter for fracture (HCC) Procedures IR VERTEBROPLASTY CERVICOTHORACIC Gabby Lo APRN - EDWIN [address] [facility] [address] [place] [address] Referral ID Status Reason Start Date Expiration Date Visits Re quested Visits Authorized [id number] Open 05/29/2023 05/28/2024 1 1 Reason evaluate and treat f or compression fracture Diagnosis 1 Compression fracture of T11 vertebra with delayed healing, subsequent encounter (S22.080G) Referral Organization [facility]urger Referring Provider First Name Ana Referring Provider Last Name Kim Referring Provider Specialty Nurse Pract itioner Referred Organization [facility] Referred Address [address] [facility] [place] Referred Provider Specialty Intervention al Radiology Referral Priority Routine Reason evaluate and treat Diagnosis 1 Compression fracture of T11 vertebra with delayed healing, subsequent encounter (S22.080G) Referral Organization [facility] Referring Provider First Name Ana Referring Provider Last Name Kim Referring Provider Specialty Nurse Pract itioner Referred Organization [facility] [employer] Referred Address [address] [place], [place],[address] Referred Provider Specialty DME Referral Priority Routine Reason evaluate and kwasi at Diagnosis 1 Age-related osteopor osis with current pathological fracture, initial encounter (M80.00XA) Referral Organization [facility] Referring Provider First Name Ana Referring Provider Last Name Kim Referring Provider Specialty Nurse Pract itioner Referred Organization [facility] Pain [facility]agemen t Referred Provider Christo Lobo Referred Address [address] [address] ,[place], [place],[address] Referred Provider Specialty Pain Medicin e Referral Priority Routine General Notes Rebeca Pleitez 11:19:46 AM >received today, patient did just have MRI ordered but has already had CT of the Lumbar spine completed. Sending p2p at this time for scheduling Reason evaluate and kwasi at Diagnosis 1 Age-related osteopor osis with current pathological fracture, initial encounter (M80.00XA) Referral Organization [facility] urosurgery Referring Provider First Name Ana Referring Provider Last Name Julio Referring Provider Specialty Nurse Jose sheriff Referred Organization [facility] Referred Provider Rebeca Munguia Referred Address [address] [facility] [place] [place],[address] Referred Provider Specialty Nurse Virgil stone Referral Priority Routine General Notes Rebeca Pleitez 02:57:56 PM >received today, sending p2p at this time for scheduling Reason 01/23/23 Aleksey off ice - lumbar compression fracture - imaging at [facility] Diagnosis 1 Compression fracture of lumbar vertebra, unspecified lumbar vertebral level, initial encounter (S32.000A) Referral Organization [facility] Passado marcell Referring Provider First Name Nettie Referring Provider Last Name Kathy Referring Provider Specialty Vacation View Referred Organization [facility] Referred Provider Robin Flannery Referred Address ,[place], [place],[address] Referred Provider Specialty Orthopedic S urgery Referral [...] - lumbar compression fracture - imaging at [facility] Diagnosis 1 Compression fracture of lumbar vertebra, unspecified lumbar vertebral level, initial encounter (S32.000A) Referral Organization [facility] Passado marcell Referring Provider First Name Nettie Referring Provider Last Name Kathy Referring Provider Specialty Vacation View Referred Organization [facility] Referred Provider Robin Flannery Referred Address ,[place], [place],[address] Referred Provider Specialty Orthopedic S urgery Referral Priority Routine General Notes Mirna Bruce 04:32:13 PM >received today, attachments made, notes locked, referral faxed Additional Source Comments REASON FOR VISIT (unrecogniz ed section and content) Specialty Diagnoses / Procedures Referred By Costa t Referred To Contact Radiology Diagnoses Compression fracture of T12 vertebra with delayed healing, subsequent encounter Other osteoporosis with current pathological fracture, vertebra(e), initial encounter for fracture (HCC) Procedures IR VERTEBROPLASTY CERVICOTHORACIC Gabby Lo, DESKTOP SUPPORT MANAGER - PREFLIGHT MECHANIC [address] [address] Referral ID Status Reason Start Date Expiration Date Visits Re quested Visits Authorized [id number] Open 05/29/2023 05/28/2024 1 1 Care Teams (unrecognized sec tion and content) Team Status: Active Member Role Status Dates Nettie Iqbal MD Primary Care Provider Active Team Status: Inactive Member Role Status Dates Nettie Iqbal MD Primary Care Provide r, Attending Provider Active Start: July 26, 2023 End: July 26, 2023 Team Status: Inactive Member Role Status Augusto Iqbal MD Primary Care Provider Active Start: August 11, 2023 End: August 11, 2023 Sandra Flores APRN Attending Provider Active Start: August 11, 2023 End: August 11, 2023 Team Status: Inactive Member Role Status Augusto Iqbal MD Primary Care Provide r, Attending Provider Active Start: September 24, 2023 End: September 24, 2023 Team Status: Active Member Role Status Augusto Iqbal MD Primary Care Provider Active Start: May 28, 2023 GIL Brown Attending Provider Active Start : May 28, 2023 Team Status: Inactive Member Role Status Augusto Iqbal MD Primary Care Provide r, Attending Provider Active Start: June 22, 2023 End: June 22, 2023 Team Status: Inactive Member Role Status Augusto Iqbal MD Attending Provider Active St art: June 22, 2023 End: June 22, 2023 Team Status: Inactive Member Role Status Augusto Pruitt DO Primary Care Provider Active Kiran Amaya MD Attending Provider Active Team Status: Active Member Role Status Augusto Pruitt DO Primary Care Provider Active Team Status: Inactive Member Role Status Augusto Sanford APRN Attending Provider Active Team Status: Inactive Member Role Status Augusto Amaya MD Attending Provider Active Nettie Iqbal MD Primary Care Provider Active Team Status: Inactive Member Role Status Augusto Iqbal MD Attending Provider Active Team Status: Inactive Member Role Status Augusto Iqbal MD Attending Provider Active PHYSICIAN NO FAMILY Primary Care Provider Active Team Status: Inactive Member Role Status Dates Nettie Iqbal MD Primary Care Provider Active ANUSHKA Felder Attending Provider Active Sole Stainer Relationship Specialty Start Date End Date Nettie Iqbal MD [address] [facility] [place] [address] PCP - General Family Medicine 06/13/23 Team Status: Inactive Member Role Status Dates ANUSHKA Felder Attending Provider Active Start: April 11, 2023 End: April 11, 2023 Team Status: Inactive Member Role Status Dates Horacio Erwin MD Attending Provider Active S tart: November 02, 2023 End: November 02, 2023 Nettie Iqbal MD Primary Care Provider Active Start: November 02, 2023 End: November 02, 2023 Team Status: Inactive Member Role Status Dates Nettie Iqbal MD Primary Care Provider Active Start: November 26, 2023 End: November 26, 2023 Horacio Erwin MD Attending Provider Active S tart: November 26, 2023 End: November 26, 2023 Goals (unrecognized section and content) Goals may be documented in a n alternate section INFORMATION SOURCE (unrecogn ized section and content) DATE CREATED AUTHOR 08/18/2022 [facility] DATE CREATED AUTHOR AUTHOR'S ORGANIZ ATION 12/27/2022 [facility] DATE CREATED AUTHOR AUTHOR'S ORGANIZ ATION 01/29/2023 [facility] DATE CREATED AUTHOR AUTHOR'S ORGANIZ ATION 06/14/2023 [facility] DATE CREATED AUTHOR AUTHOR'S ORGANIZ ATION 06/19/2023 [facility] DATE CREATED AUTHOR AUTHOR'S ORGANIZ ATION 11/05/2023 [facility] FOR RECORDS PERTAINING TO PATIENTS WHO ARE [...] BE BASED ON THE PRIMARY CLINICAL RECORDS. [facility] [employer] [facility]. provides no warranty or guarantee of the accuracy or completeness of information in this document.
--- NOTE | 2023-12-12 13:59 | ECG_ITS ---
[facility] Test Date: 2023-12-12 Pat Name: TYRESE GUTIERRES Department: Room: - Gender: Female Marketing Strategist: : 1955 Requested By: NETTIE IQBAL Order Number: [id number] Reading MD: NOEL PRUITT Measurements Intervals [place] Rate: 67 P: 30 TX: 178 QRS: 48 QRSD: 74 T: 72 QT: 404 QTc: 420 Interpretive Statements 1100 Sinus rhythm 8102 Low QRS voltage in chest leads 9120 atypical ECG Compared to ECG 01/13/2023 09:20:46 Low QRS voltage now present Electronically Signed On 12-12-2023 23:09:00 EDT by NOEL PRUITT
--- NOTE | 2023-12-12 14:11 | ED_ITS ---
HPI HPI - General Adult General Chief complaint: Weakness Stated complaint: TREMORS Time Seen by Provider: 12/12/23 13:43 Source: patient Mode of arrival: walk-in History of Present Illness HPI narrative: Patient presents to ED complaining of tremors. She said she started with shaking on Sunday and it is worsened throughout the weekend. Last Sunday she increased her Lexapro dose from 10 mg to 20 mg. She is concerned that the increase in dose has caused the tremors. She denies any fever nausea vomiting. She has chronic abdominal issues but nothing new or different. She denies any chest pain or shortness of breath. She said she called her doctor and they told her to come to the ER because this may be a reaction to the medication. No new medication changes other than the change to the Lexapro. She denies any fevers or sweats. She denies any history of tremors Related Data Home Medications ?Medication ?Instructions ?Recorded ?Confirmed albuterol sulfate 90 mcg/actuation 2 inh inhalation Q4H PRN shortness 09/06/22 01/13/23 aerosol inhaler of breath or wheezing alprazolam 0.5 mg tablet 0.5 mg PO TID 09/06/22 01/13/23 dicyclomine 20 mg tablet 20 mg PO QID 09/06/22 01/13/23 fluticasone propionate 115 2 puff inhalation Q12H 09/06/22 01/13/23 mcg-salmeterol 21 mcg/actuation HFA inhaler (Advair HFA) hydrocodone 5 mg-acetaminophen 325 1 tab PO Q6H PRN pain 09/06/22 01/13/23 mg tablet hydroxyzine HCl 25 mg tablet 25 mg PO BEDTIME PRN itching 09/06/22 01/13/23 naloxegol 12.5 mg tablet (Movantik) 12.5 mg PO DAILY 09/06/22 01/13/23 pantoprazole 40 mg tablet,delayed 40 mg PO DAILY 09/06/22 01/13/23 release trazodone 50 mg tablet 50 mg PO BEDTIME PRN sleep 09/06/22 01/13/23 linaclotide 290 mcg capsule 290 mcg PO BID 09/19/22 01/13/23 (Linzess) escitalopram oxalate 10 mg tablet 10 mg PO DAILY 01/13/23 01/13/23 (Lexapro) pregabalin 150 mg capsule (Lyrica) 150 mg PO BID 01/13/23 01/13/23 Allergies Allergy/AdvReac Type Severity Reaction Status Date / Time sulfamethoxazole Allergy Mild Diarrhea Verified 11/13/22 18:22 [From Bactrim] trimethoprim [From Bactrim] Allergy Mild Diarrhea Verified 11/13/22 18:22 ketorolac [From Toradol] Allergy Verified 11/13/22 18:22 NSAIDS (Non-Steroidal Allergy Verified 11/13/22 18:22 Anti-Inflamma rofecoxib [From Vioxx] Allergy Verified 11/13/22 18:22 varenicline [From Chantix] Allergy Verified 11/13/22 18:22 Opioid HPI Opioid Management Most Recent Opioid Data: Last Pain Scale 8 01/14/23 13:14 Review of Systems ROS Status of ROS 10 or more systems reviewed and unremark able except as noted in history and below [facility] Medical History (Updated 12/12/23 @ 15:32 by Fidelia Purdy DO) Fall ?W19.XXXA - Unspecified fall, initial encounter (ICD-10) Fracture, tibia ?S82.209A - Unspecified fracture of shaft of unspecified tibia, initial encounter for closed fracture (ICD-10) Compression fracture Compression fracture of lumbar vertebra with routine healing ?S32.000D - Wedge compression fracture of unspecified lumbar vertebra, subsequent encounter for fracture with routine healing (ICD-10) Compression fracture of thoracic vertebra with routine healing ?S22.000D - Wedge compression fracture of unspecified thoracic vertebra, subsequent encounter for fracture with routine healing (ICD-10) Dyslipidemia ?E78.5 - Hyperlipidemia, unspecified (ICD-10) Venous insufficiency ?I87.2 - Venous insufficiency (chronic) (peripheral) (ICD-10) Chronic bronchitis with productive mucopurulent cough ?J41.1 - Mucopurulent chronic bronchitis (ICD-10) Cervical spondylosis ?M47.812 - Spondylosis without myelopathy or radiculopathy, cervical region (ICD-10) Osteoporosis ?M81.0 - Age-related osteoporosis without current pathological fracture (ICD- 10) COPD (chronic obstructive pulmonary disease) ?J44.9 - Chronic obstructive pulmonary disease, unspecified (ICD-10) Hypoxia ?R09.02 - Hypoxemia (ICD-10) Thoracic spondylosis ?M47.814 - Spondylosis without myelopathy or radiculopathy, thoracic region (ICD-10) Lumbar spondylosis ?M47.816 - Spondylosis without myelopathy or radiculopathy, lumbar region (ICD-10) Pneumothorax ?J93.9 - Pneumothorax, unspecified (ICD-10) Hepatitis ?K75.9 - Inflammatory liver disease, unspecified (ICD-10) GI bleed ?K92.2 - Gastrointestinal hemorrhage, unspecified (ICD-10) Upper back pain ?M54.9 - Dorsalgia, unspecified (ICD-10) Neck pain ?M54.2 - Cervicalgia (ICD-10) Low back pain ?M54.50 - Low back pain, unspecified (ICD-10) Osteoarthritis ?M19.90 - Unspecified osteoarthritis, unspecified site (ICD-10) Anxiety ?F41.9 - Anxiety disorder, unspecified (ICD-10) TIA (transient ischemic attack) ?G45.9 - Transient cerebral ischemic attack, unspecified (ICD-10) Diverticulitis ?K57.92 - Diverticulitis of intestine, part unspecified, without perforation or abscess without bleeding (ICD-10) Irritable bowel ?K58.9 - Irritable bowel syndrome without diarrhea (ICD-10) Ulcerative colitis ?K51.90 - Ulcerative colitis, unspecified, without complications (ICD-10) Hiatal hernia ?K44.9 - Diaphragmatic hernia without obstruction or gangrene (ICD-10) Acid reflux ?K21.9 - Gastro-esophageal reflux disease without esophagitis (ICD-10) Chronic cough ?R05.3 - Chronic cough (ICD-10) Former smoker ?Z87.891 - Personal history of nicotine dependence (ICD-10) COPD (chronic obstructive pulmonary disease) ?J44.9 - Chronic obstructive pulmonary disease, unspecified (ICD-10) Emphysema lung ?J43.9 - Emphysema, unspecified (ICD-10) Angina at rest ?I20.8 - Other forms of angina pectoris (ICD-10) Surgical History H/O carpal tunnel repair ?Z98.890 - Other specified postprocedural states (ICD-10) H/O kyphoplasty ?Z98.890 - Other specified postprocedural states (ICD-10) History of hysterectomy ?Z90.710 - Acquired absence of both cervix and uterus (ICD-10) Family History (Updated 01/13/23 @ 14:30 by Alycia Alan) Mother Family history of CHF (congestive heart failure) Family history of COPD (chronic obstructive pulmonary disease) Family history of diabetes mellitus Family history of stroke Grandmother Family history of cancer Family history of diabetes mellitus Social History (Updated 01/13/23 @ 14:31 by Alycia Alan) Within the past year, how often did you have a drink containing alcohol: never Within the past year, how many standard drinks containing alcohol did you have on a typical day: 1 or 2 Within the past year, how often did you have six or more drinks on one occasion: never Total score: 0 Score interpretation: A score less than 3 is consistent with normal alcohol consumption. Smoking status: Former smoker Non-prescribed substance use: denies use Previous occupational history: retired Highest level of school completed/degree received: high school graduate Are you now , , , , never or living with a partner: In a typical week, how many times do you talk on the telephone with family, friends, or neighbors: 3 or more times per week How often do you get together with friends or relatives: 3 or more times per week How often do you attend denominational or muslim services: never Do you belong to any clubs or organizations such as denominational groups unions, fraternal or athletic groups, or school groups: no Total score: 1 Score interpretation: A score of less than or equal to 1 indicates the most socially isolated. Little interest or pleasure in doing things: not at all Feeling down, depressed, or hopeless: not at all Feel stressed/tense/nervous/anxious/difficulty sleeping: not at all Do you think of yourself as: straight/heterosexual Gender Identity: female Exam Narrative Exam Narrative: Time Seen: [] Vital Signs: [Per nurse's notes.] General: [Alert] Skin: [Warm, dry, no rash.] Head: [Normocephalic, atraumatic.] Neck: [Supple, trachea midline.] Eye: [Pupils are equal, round and reactive to light, extraocular movements are intact, normal conjunctiva.] Ears, nose, mouth and throat: oral mucosa moist. Cardiovascular: [Regular rate and rhythm, no murmur.] Respiratory: [Lungs are clear to auscultation, respirations are non-labored, breath sounds are equal.] Chest wall: [No tenderness, no deformity.] Gastrointestinal: [Soft, nontender, non distended, normal bowel sounds.] MSK: 5 out of 5 muscle strength x 4 extremities no calf pain or edema Lymphatics: [No lymphadenopathy.] Psychiatric: [Cooperative, appropriate mood & affect.] Neurological: [Alert and oriented to person, place, time, and situation, no focal neurological deficit observed. Diffuse tremors and jerky like movements throughout her body. Constitutional Vital Signs, click to edit/add: Last Vital Signs Temp 99.1 F 12/12/23 13:39 Pulse 69 12/12/23 15:11 Resp 21 H 12/12/23 15:11 BP 147/79 H 12/12/23 15:11 Pulse Ox 93 L 12/12/23 15:11 O2 Del Method Room Air 12/12/23 13:39 Course Vital Signs Vital signs: Vital Signs Temperature 99.1 F 12/12/23 13:39 Pulse Rate 90 12/12/23 13:39 Respiratory Rate 20 12/12/23 13:39 Blood Pressure 153/81 H 12/12/23 13:39 Pulse Oximetry 95 12/12/23 13:39 Oxygen Delivery Method Room Air 12/12/23 13:39 Temperature 99.1 F 12/12/23 13:39 Pulse Rate 69 12/12/23 15:11 Respiratory Rate 21 H 12/12/23 15:11 Blood Pressure 147/79 H 12/12/23 15:11 Pulse Oximetry 93 L 12/12/23 15:11 Oxygen Delivery Method Room Air 12/12/23 13:39 Medical Decision Making MDM Narrative Medical decision making narrative: Patient is feeling better after 1 dose of Benadryl. She has been resting comfortably and no more tremors. She would like to go home and does not want to be admitted to the hospital. I told her to wean down on her Lexapro, go back to the 10 mg which was working for her before. Follow-up with family doctor closely so this can be monitored. Return to ED if worsening tremors or acute changes occur. If she is feeling a little bit tremorous at home take Benadryl but if this is not improving then please return to the emergency room. Differential Diagnosis Differential Diagnosis: Medication reaction, anxiety, infection Medical Records Medical records reviewed: Yes I reviewed the patient's medical records Lab Data Lab results reviewed: Yes I reviewed the patient's lab results Labs: Lab Results 12/12/23 12/12/23 Range/Units 14:18 14:32 WBC 5.7 (4.0-11.0) 10^3/uL RBC 4.29 (4.20-5.40) 10^6/uL Hgb 13.9 (12.0-16.0) g/dL Hct 42.8 (36.0-48.0) % MCV 99.8 H (81.0-99.0) fL MCH 32.4 (26.7-34.0) pg MCHC 32.5 (29.9-35.2) g/dL RDW 11.8 (11.0-15.0) % Plt Count 168 (150-450) 10^3/uL MPV 9.1 L (9.5-13.5) fL Neut % (Auto) 75.4 H (43.0-75.0) % Lymph % (Auto) 18.0 L (20.5-60.0) % Treasure % (Auto) 5.1 (1.7-12.0) % Eos % (Auto) 0.9 (0.9-7.0) % Baso % (Auto) 0.3 (0.2-2.0) % Neut # (Auto) 4.3 (1.4-6.5) 10^3/uL Lymph # (Auto) 1.0 L (1.2-3.8) 10^3/uL Treasure # (Auto) 0.3 (0.3-0.8) 10^3/uL Eos # (Auto) 0.1 (0.0-0.7) 10^3/uL Baso # (Auto) 0.0 (0.0-0.1) 10^3/uL Abs Immat Gran (auto) 0.02 (0.00-0.03) 10^3/uL Imm/Tot Granulo (auto) 0.3 (0.0-0.5) % Sodium 137 (136-145) mmol/L Potassium 3.5 (3.5-5.1) mmol/L Chloride 99 (98-107) mmol/L Carbon Dioxide 27.4 (21.0-32.0) mmol/L Anion Gap 14.1 BUN 12.0 (7.0-18.0) mg/dL Creatinine 0.78 (0.55-1.02) mg/dL Est GFR ( Amer) >60 (>=60 mL/min/1.73m^2) Est GFR (Non-Af Amer) >60 (>=60 mL/min/1.73m^2) BUN/Creatinine Ratio 15.4 Glucose 151 H (74-106) mg/dL Calcium 9.4 (8.5-10.1) mg/dL Total Bilirubin 0.3 (0.2-1.0) mg/dL AST 17 (15-37) U/L ALT 18 (14-59) U/L Alkaline Phosphatase 54 (46-116) U/L Total Protein 7.2 (6.4-8.2) g/dL Albumin 3.7 (3.4-5.0) g/dL Globulin 3.5 g/dL Albumin/Globulin Ratio 1.1 Urine Color Lt. yellow (YELLOW) Urine Clarity Clear (CLEAR) Urine pH 7.0 (5.0-9.0) Ur Specific Bel[place] 1.015 (1.005-1.025) Urine Protein Negative (NEG/TRACE) mg/dL Urine Glucose (UA) Negative (NEGATIVE) mg/dL Urine Ketones Negative (NEGATIVE) mg/dL Urine Occult Blood Negative (NEGATIVE) Urine Nitrite Negative (NEGATIVE) Urine Bilirubin Negative (NEGATIVE) Urine Urobilinogen 0.2 (0.2-1.0) EU/dL Ur Leukocyte Esterase Negative (NEGATIVE) SARS-CoV-2 Ag (CV2AG) Negative (NEGATIVE) Discharge Plan Discharge Chief Complaint: Weakness Clinical Impression: Tremor Patient Disposition: Home, Self-Care Time of Disposition Decision: 15:32 Condition: Good Mode of Transportation: Private Vehicle Prescriptions / Home Meds: No Action trazodone 50 mg tablet 50 mg PO BEDTIME PRN (Reason: sleep) hydrocodone-acetaminophen 5-325 mg tablet 1 tab PO Q6H PRN (Reason: pain) alprazolam 0.5 mg tablet 0.5 mg PO TID dicyclomine 20 mg tablet 20 mg PO QID pantoprazole 40 mg tablet,delayed release (DR/EC) 40 mg PO DAILY hydroxyzine HCl 25 mg tablet 25 mg PO BEDTIME PRN (Reason: itching) albuterol sulfate 90 mcg/actuation HFA aerosol inhaler 2 inh INHALATION Q4H PRN (Reason: shortness of breath or wheezing) fluticasone propion-salmeterol [Advair HFA] 115-21 mcg/actuation HFA aerosol inhaler 2 puff INHALATION Q12H Movantik 12.5 mg tablet 12.5 mg PO DAILY Patient Comments: NEEDED Linzess 290 mcg capsule 290 mcg PO BID escitalopram oxalate [Lexapro] 10 mg tablet 10 mg PO DAILY pregabalin [Lyrica] 150 mg capsule 150 mg PO BID Print Language: Amharic Instructions: Tremors (ED) Referrals: Yolanda Chavez MD [Primary Care Provider] - 1 week Discharge Date/Time: 12/12/23 15:44
[2023-12-12 14:23] LABS: Basophils Percent Auto 0.3 % (0.2-2.0); Eosinophils Absolute Auto 0.1 10^3/uL (0.0-0.7); Eosinophils Percent Auto 0.9 % (0.9-7.0); Hematocrit 42.8 % (36.0-48.0); Hemoglobin 13.9 g/dL (12.0-16.0); Immature Granulocytes Abs Auto 0.02 10^3/uL (0.00-0.03); Immature Granulocytes Pct Auto 0.3 % (0.0-0.5); Mean Corpuscular HGB Conc 32.5 g/dL (29.9-35.2); Mean Corpuscular Hemoglobin 32.4 pg (26.7-34.0); Mean Corpuscular Volume 99.8 fL (81.0-99.0); Mean Platelet Volume 9.1 fL (9.5-13.5); Monocytes Absolute Auto 0.3 10^3/uL (0.3-0.8); Monocytes Percent Auto 5.1 % (1.7-12.0); Neutrophils Absolute Auto 4.3 10^3/uL (1.4-6.5); Neutrophils Percent Auto 75.4 % (43.0-75.0); Platelet Count 168 10^3/uL (150-450); Red Blood Count 4.29 10^6/uL (4.20-5.40); Red Cell Distribution Width 11.8 % (11.0-15.0); White Blood Count 5.7 10^3/uL (4.0-11.0)
[2023-12-12] MEDS: DIPHENHYDRAMINE HCL 50 MG/ML VIAL 25 MG IV (14:37)
[2023-12-12] MEDS: 0.9 % SODIUM CHLORIDE 500 ML IV (14:37)
[2023-12-12 14:41] LABS: Bilirubin Urine NEGATIVE (NEGATIVE); Blood Urine NEGATIVE (NEGATIVE); Clarity Urine CLEAR (CLEAR); Color Urine LT. YELLOW (YELLOW); Glucose Urine UA NEGATIVE (NEGATIVE); Ketones Urine NEGATIVE (NEGATIVE); Leukocyte Esterase Urine NEGATIVE (NEGATIVE); Nitrite Urine NEGATIVE (NEGATIVE); Protein Urine NEGATIVE (NEG/TRACE); Specific Gravity Urine 1.015 (1.005-1.025); Urobilinogen Urine 0.2 EU/dL (0.2-1.0)
[2023-12-12 14:46] LABS: Urine Microscopic Indicated NO
[2023-12-12 14:53] LABS: Internal Control Within Normal Limits; SARS-CoV-2 Ag NEGATIVE (NEGATIVE)
[2023-12-12 15:04] LABS: Alanine Aminotransferase 18 U/L (14-59); Albumin Globulin Ratio 1.1; Albumin Level 3.7 g/dL (3.4-5.0); Alkaline Phosphatase 54 U/L (46-116); Anion Gap 14.1; Aspartate Amino Transferase 17 U/L (15-37); BUN Creatinine Ratio 15.4; Bilirubin Total 0.3 mg/dL (0.2-1.0); Calcium 9.4 mg/dL (8.5-10.1); Carbon Dioxide 27.4 mmol/L (21.0-32.0); Chloride 99 mmol/L (98-107); Estimated GFR (African America >60 (>=60 mL/min/1.73m^2); Estimated GFR (Non-African Ame >60 (>=60 mL/min/1.73m^2); Globulin 3.5 g/dL; Glucose 151 mg/dL (74-106); Potassium 3.5 mmol/L (3.5-5.1); Sodium 137 mmol/L (136-145); Total Protein 7.2 g/dL (6.4-8.2)
[2023-12-12 15:07] VITALS: O2SAT 96
[2023-12-12 15:10] VITALS: PULSE 104; O2SAT 94
[2023-12-12 15:11] VITALS: BP 147/79; PULSE 69; O2SAT 93
--- NOTE | 2023-12-12 15:20 | PC.NURSE ---
pt arrival for new onset tremors that started after increasing her lexapro dose from 10mg to 20mg on sunday/sunday.,
== END 2023-12-12 15:44 | disposition home or self-care (01) ==
PROVIDERS: Emergency Provider Emergency Medicine; PCP Family Medicine
DX: R25.1 Tremor, unspecified (principal); Z87.891 Personal history of nicotine dependence; Z20.822 Contact with and (suspected) exposure to COVID-19
CPT/HCPCS: 36415; 80053; 81003; 85025; 87811; 93005; 96374; 99285; J1200

== ENCOUNTER 2024-01-03 20:29 | Emergency (ER) | payer MEDICARE, SELFPAY ==
[2024-01-03 20:36] VITALS: BP 143/88; PULSE 68; O2SAT 100; BMI 19.2
--- OUTSIDE RECORDS SUMMARY | 2024-01-03 20:38 | XMS_ITS | CCD ---
Author Organization [facility] Care Team Providers [facility] [employer] Name Role Phone Janna Pina Unavailable Shira Cunningham Unavailable Ambrose Torres Unavailable Kiran Amaya Unavailable [phone] DO Phani Pruitt Primary Care Provider MD [...] Unavailable EDMOND, DR COHEN Primary Care Unavailable JANELL ., DR WALSH Consulting Unavailable DÍAZ ., [...] Unavailable MD Kiran Amaya Attending Provider MD Nettie Iqbal Primary Care Provider [phone] MD Nettie Iqbal Attending Provider Unavailable Primary Care Provider UnavailPHANI [place] Primary Care Physician [place] RAMOS Attending Unavailable NO FAMILY, PHYSICIAN Primary Care Provider Unava ilROBIN Mae Referring Unavailable ROBIN FLANNERY Referring Unavailable ROBIN FLANNERY Attending Unavailable MD Nettie Iqbal Attending Provider MD Nettie Iqbal Primary Care Provider ANUSHKA Kim Attending Provider Ana Kim Unavailable GABBY LO Referring Unavailable NETTIE IQBAL Primary Care Unavailable Nettie Iqbal MD Primary Care Provider GABBY LO Referring Unavailable NETTIE IQBAL Primary Care Unavailable MD Nettie Iqbal Attending Provider MD Horacio Erwin Attending Provider [phone] MD Nettie Iqbal Primary Care Provider Ana Kim Admitting Unavailable Ana Kim Attending Unavailable Nettie Iqbal Primary Care Unavailable Horacio Erwin Attending Unavailable Horacio Erwin Admitting Unavailable Nettie Iqbal E Primary Care Unavailable Kiran Amaya Admitting UnavailKiran Slaughter Attending Unavailabl e Nettie Iqbal Primary Care Unavailable Nettie Iqbal Admitting Unavailable Nettie Iqbal Attending Unavailable NO FAMILY, PHYSICIAN Primary Care Unavailable Nettie Iqbal Admitting Unavailable Nettie Iqbal Attending Unavailable Nettie Iqbal E Admitting Unavailable Nettie Iqbal Attending Unavailable Nettie Iqbal MD Primary Care Provider EVERETT DUNLAP Attending Unavailable NETTIE IQBAL E Primary Care Unavailable MD Sam Hare Attending Provider Allergies Allergy Classification Reported Allergen(s) Allergy Type Date of Onset Reaction(s) Facility (20 sources) cefdinir Drug Allergy Other: See Comments [facility] (20 sources) Ketorolac Drug Allergy Unknown, Diarrhea [facility] (20 sources) varenicline Drug Allergy Unknown, Muscle Pain [facility] (20 sources) vioxx, antiinflammatories Propensity to adverse reactions Unknown, Hives [facility] (20 sources) Statins Support Drug allergy Unknown [facility] Other (9 sources) varenicline; Translations: [Chantix] Drug Allergy Unknown [facility] Repository (3 sources) Ketorolac Drug Allergy 024 Diarrhea [employer] [facility] [employer] Other (20 sources) Sulfamethoxazole / Trimethoprim Drug Allergy 023 Unknown [facility] Other (15 sources) rofecoxib; Translations: [rofecoxib] Drug Allergy 018 Migraine [facility] (14 sources) NSAIDS (Non-Steroidal Anti-Inflamma; Translations: [NSAIDS (Non-Steroidal Anti-Inflamma] Allergy to substance Diarrhea [facility] (14 sources) Cauhykw-XQD-NiE Reductase Inhibitor; Translations: [Fiiqcez-TLS-WwC Reductase Inhibitor] Allergy to substance Diarrhea [facility] (1 source) black walnut pollen extract Drug Allergy [facility] Repository (1 source) cefdinir Drug Allergy [facility] (1 source) Ketorolac Drug Allergy [facility] (1 source) NSAIDs Drug allergy (disorder) [facility] Rep[facility] (1 source) rofecoxib Drug Allergy [facility] (1 source) Sulfamethoxazole / Trimethoprim Drug Allergy [facility] (20 sources) Ibuprofen Drug Allergy 024 Unknown [facility] (20 sources) Simvastatin Drug Allergy 024 Unknown, Hives [facility] (20 sources) zoledronic acid Drug Allergy 024 Other: See Comments [facility] (5 sources) Allergies Reconciled Propensity to adverse reactions Unknown [employer] [facility] [employer] Other (20 sources) Toradol *ANALGESICS - ANTI-INFLAMMATORY* Propensity to adverse reactions 06-29-2 015 Unknown [facility] Other (20 sources) Cholesterol Drug allergy 06-29-2 015 Unknown [facility] Other (20 sources) ANTI INFLAMMATORY Propensity to adverse reactions 06-29-2 015 Unknown [facility] Other (5 sources) patient allergy list reviewed by nurse or physicia Propensity to adverse reactions Comment:Done [facility] Other (1 source) DULoxetine Drug Allergy Di[facility] [place] (2 sources) HMG-CoA reductase inhibitor Propensity to adverse reactions to drug Unknown [email or web address] (2 sources) Non-steroidal anti-inflammatory agent Propensity to adverse reactions to drug Other: See Comments [email or web address] (1 source) PARoxetine Drug Allergy Other (See Comments) [employer] (7 sources) Mannitol Drug Allergy Comment:Bone [facility] (7 sources) Sulfamethoxazole Drug Allergy [facility] (7 sources) Trimethoprim Drug Allergy [facility] (7 sources) water for injection,sterile Allergy to substance Comment:[facility] (7 sources) Toradol *ANALGESICS - ANTI-INF Allergy to substance [facility] (5 sources) Ibadronate Drug Allergy [facility] (1 source) Ketorolac Drug Allergy [facility] Repository (1 source) varenicline Drug Allergy [facility] Repository Medications Current Medications Medication Drug Class(es) Dates Sig (Normalized) Sig (Original) acetaminophen 325 mg / HYDROcodone bitartrate 5 mg oral tablet (20 sources) Opioid Agonist Start: 12-25-2023 take 1 tablet by mouth every eight hours Hydrocodone-Aceta minophen Active 1 TAB PO Every 8 hours 90 December 25, 2023 Start: 11-23-2023 HYDROcodone-ac etaminophen (NORCO) 5-325 mg per tablet .COMPLEX 11/23/2023 Active Start: 10-26-2023 End: 12-25-2023 take 1 tablet by mouth every eight hours as needed for pain Hydrocodone-Acetaminophen Discontinued 0 .ROUTE .COMPLEX 90 November 23, 2023 December 25, 2023 1:51pm TAKE 1 TABLET BY MOUTH EVERY 8 [...] p/u 04/13, start 04/14Apr, Active Start: 01-19-2022 End: 05-10-2023 Hydrocodone-Acetaminophen Di scontinued 1 TAB PO As Directed January 19, 2022 1:00am May 10, 2023 9:38am Start: 06-18-2019 End: 07-02-2019 take 1 tablet by mouth every six hours Hydrocodone-Acetaminophen Discontinued 1 TAB PO Q6H 20 5 June 26, 2019 10:50am July 02, 2019 8:26am Start: 05-01-2019 End: 06-18-2019 take 5-325 mg by mouth four times daily Hydrocodone-Acetaminophen Discontinued 5 - 325 MG PO Four times daily 0 10 May 01, 2019 June 18, 2019 5:31pm Start: 04-18-2019 End: 04-19-2019 take 5-325 mg by mouth four times daily Hydrocodone-Acetaminophen Discontinued 5 - 325 MG PO Four times daily April 18, 2019 1:00am April 19, 2019 9:08am HYDROcodone-Acet aminophen Active Albuterol (20 sources) beta2-Adrenergic Agonist Start: 12-25-2023 take 1 puff(s) by inhalation every four to six hours Albuterol Sulfate Active 2 PUFF INHALATION EVERY 4-6 HOURS 6.7 December 25, 2023 12:00am Start: 08-11-2023 take 3 mL by inhalat ion every six hours as needed Albuterol Sulfate Active 3 ML INHALATION Every 6 hours August 11, 2023 12:00am [employer] mL as needed Inhalation every 6 hrs; Note: Source Status: Taking; Refills: 2; Qty: 360 ml; Provider: Kathy De Jesus Start: 12-29-2022 albuterol (PRO VENTIL) 2.5 mg /3 mL (0.083 %) nebulizer solution Every 6 hours 12/29/2022 Active Start: 12-29-2022 albuterol (PRO VENTIL) (2.5 MG/3ML) [...] 90 Base) MCG/ACT Inhalation for 16 Not-Taking baclofen 20 mg oral tablet (20 sources) gamma-Aminobutyric Acid-ergic Agonist Start: 12-25-2023 take 20 mg by mouth once daily Baclofen Active 20 MG PO Daily December 25, 2023 12:00am Start: 11-22-2023 take 1 tablet by arlene th every six hours as needed baclofen 20 mg tablet Take 20 mg by mouth every 6 hours as needed. 11/22/2023 Active Start: 08-11-2023 End: 09-24-2023 take 10 mg by mouth every six hours Baclofen Discontinued 10 MG PO Every 6 hours August 11, 2023 12:00am September 24, 2023 1:23pm Start: 01-25-2023 take 1 tablet by arlene th every six hours for pain Baclofen 20 MG 1 tablet Orally every 6 hours if needed for pain for 30 days Jan, Active Start: 04-18-2019 End: 01-19-2022 take 10 mg by mouth four times daily Baclofen Discontinued 10 MG PO Four times daily 20 June 26, 2019 10:50am July 02, 2019 8:26am take 1 tablet by arlene every eight hours Baclofen 10 MG 1 [...] 2019 12:00am take 1 tablet by arlene every twenty-four hours Oyster Shell Calcium 500 MG 1 tablet Orally Once a day Not-Taking cholecalciferol 0.025 mg oral tablet (20 sources) Vitamin D Start: 07-01-2019 cholecalcifero l (VITAMIN D3) 1,000 unit tab tablet 2,000 Units. 07/01/2019 Active Start: 07-01-2019 take 2000 [IU] by mo wih once daily Cholecalciferol (Vitamin D3) Active 2000 UNIT PO Daily July 01, 2019 12:00am Start: 04-19-2019 End: 07-02-2019 take 1 tablet by mouth once daily Cholecalciferol (Vitamin D3) (Vitamin D3) 2,000 unit tablet Discontinued 2000 UNIT PO Daily April 19, 2019 1:00am July 02, 2019 8:26am docusate sodium 100 mg oral capsule (14 sources) Start: 07-01-2019 take 1 capsule by mouth twice daily Docusate Sodium (Dok) 100 mg Capsule Active 100 MG PO Twice daily July 01, 2019 12:00am escitalopram 10 mg oral tablet (20 sources) Serotonin Reuptake Inhibitor Start: 12-14-2023 take 1 tablet by mouth once daily Escitalopram Oxalate Active 0 .ROUTE .COMPLEX December 14, 2023 8:35am Take 1 tablet by mouth once daily Start: 11-26-2023 End: 12-14-2023 take 20 mg by mouth once Escitalopram Oxalate Discont inued 20 MG PO Once November 26, 2023 9:21am December 14, 2023 8:35am Start: 10-10-2023 End: 11-26-2023 take 1 tablet by mouth once daily Escitalopram Oxalate Discontinued 0 .ROUTE .COMPLEX November 23, 2023 12:47pm November 26, 2023 9:22am Take 1 tablet by mouth once daily Start: 01-19-2023 End: 10-10-2023 take 1 tablet by mouth once daily Escitalopram Oxalate (Lexapro) 10 mg tablet Discontinued 10 MG PO Daily July 26, 2023 12:00am October 10, 2023 8:36am fluconazole 150 mg oral tablet (20 sources) Azole Antifungal Start: 02-28-2021 take 1 tablet by mouth every twenty-four hours Diflucan 100 MG 1 tablet Orally daily for 3 days Feb, Not-Taking Start: 05-14-2020 take 1 tablet by mouth once Fl uconazole 150 MG 1 tablet Orally once for 1 days Aug, Active hydrOXYzine pamoate 25 mg oral capsule (20 sources) Antihistamine Start: 03-10-2022 hydrOXYzine pa moate (VISTARIL) 25 mg capsule Take by mouth. 03/10/2022 Active Start: 03-10-2022 take 1 tablet by arlene th every twenty-four hours hydrOXYzine HCl 25 MG 1 tablet at bedtime as needed Orally Once a day for 30 day(s) Feb, Active Iron (20 sources) Iron Active levoFLOXacin 500 mg oral tablet (9 sources) Quinolone Antimicrobial Start: 05-12-2022 take 1 tablet by mouth every twenty-four hours levoFLOXacin 500 MG 1 tablet Orally Once a day for 5 days May, Active mirtazapine 45 mg oral tablet (20 sources) Start: 04-24-2022 take 1 tablet by mouth every twenty-four hours Mirtazapine 45 MG 1 [...] a day Not-Taking Remeron Active Multivitamin preparation (13 sources) Start: 01-19-2022 take 1 tablet by [...] tablet (20 sources) Serotonin Reuptake Inhibitor Start: 12-25-2023 take 200 mg by mouth once daily at bedtime Trazodone Active 200 MG PO Daily at bedtime December 25, 2023 12:00am Start: 11-26-2023 End: 12-25-2023 take 150 mg by mouth once daily at bedtime Trazodone Discontinued 150 MG PO Daily at bedtime November 26, 2023 9:22am December 25, 2023 1:32pm Start: 07-26-2023 End: 11-26-2023 take 100 mg [...] 2023 12:00am May 28, 2023 10:00am traZODone (DESYR EL) 150 mg tablet Take 200 mg by mouth daily at bedtime. Active traZODone HCl No t-Taking Trulance 3 MG (18 sources) Start: 01-02-2022 take 1 tablet by mouth once da lauren Completed/Discontinued Medications Medication Drug Class(es) Dates Sig (Normalized) Sig (Original) acetaminophen 500 mg oral tablet (13 sources) Start: 07-01-2019 End: 07-05-2021 take 500 mg by mouth every four hours Acetaminophen Discontinued 500 MG PO Q4H 100 July 01, 2019 12:00am July 05, 2021 1:43pm ALPRAZolam 0.5 mg oral tablet (20 sources) Benzodiazepine Start: 08-14-2022 End: 06-24-2023 take 0.5 mg by mouth three times daily Alprazolam Discontinued 0.5 MG PO Three times daily 90 May 28, 2023 9:58am June 24, 2023 9:41pm Start: 06-18-2019 End: 05-10-2023 take 0.5 mg by mouth every six hours Alprazolam Discontinued 0.5 MG PO Q6H 0 June 26, 2019 10:50am July 02, 2019 8:26am Start: 04-18-2019 End: 06-18-2019 take 0.5 mg by mouth once daily Alprazolam Discontinue d 0.5 MG PO Daily 10 April 19, 2019 9:05am June 18, 2019 5:28pm take 1 tablet by arlene th four times daily Xanax 0.5 MG 1 tablet Orally 4 times daily Active amylase 892164 unt / lipase [id number] unt / protease [id number] unt delayed release oral capsule (18 sources) Start: 07-05-2021 End: 07-06-2021 take [id number] capsules by mouth once daily Vcsmqe-Vxwpiykx-Uytzldy (Creon) 36,000-114,000- 180,000 unit capsule,delayed release(DR/EC) Discontinued 1 CAP PO Daily July 05, 2021 12:00am July 06, 2021 7:56am Start: 06-13-2021 take 1 capsule by mo [facility] three times daily at mealtime Creon [id number] UNIT 1 CAPSULE Orally THREE TIMES A [...] oral tablet (20 sources) Anticholinergic Start: 2023 take 1 tablet by mouth every six hours dicyclomine (BENTYL) 20 MG tablet Take 1 tablet by mouth every 6 hours 0 04/14/2023 Active Start: 12-07-2020 End: 08-11-2023 take 1 tablet by mouth four times daily Dicyclomine Discontinued 20 MG PO Four times daily 120 30 June 05, 2023 1:16pm August 11, 2023 11:12am Take 1 tablet orally four times a day Start: 12-07-2020 End: 06-22-2023 take 20 mg by mouth three times daily Dicyclomine Discontinued 20 MG PO Three times daily July 05, 2021 12:00am June 22, 2023 1:11pm doxycycline hyclate 100 mg oral tablet (13 sources) Tetracycline-class Drug Start: 04-19-2019 End: 07-02-2019 [...] 2 puffs Inhalation Twice a day Active ibandronic acid 150 mg oral tablet (20 sources) Bisphosphonate Start: 05-28-2023 End: 11-22-2023 take 1 tablet by mouth every month Ibandronate Discontinued 0 .ROUTE .COMPLEX 3 August 22, 2023 11:54am November 22, 2023 2:40pm take 1 tablet by mouth EACH MONTH 60 MINUTES BEFORE THE FIRST FOOD,BEVERAGE OR MEDICINE OF THE DAY WITH PLAIN WATER Start: 05-02-2023 End: 05-28-2023 take 1 tablet by mouth once daily Ibandronate Discontinued 150 MG PO May 28, 2023 12:00am May 28, 2023 10:00am 1 tablet 60 minutes before the first food, beverage or medicine of the day with plain water Orally Start: 05-02-2023 take 1 tablet by arlene every 30 days ibandronate (BONIVA) 150 MG tablet Take 1 tablet by mouth every 30 days 0 05/02/2023 Active take 1 tablet by arlene th once daily Ibandronate Sodium 150 MG 1 tablet 60 minutes before the first food, beverage or medicine of the day with plain water Orally for 30 days Active 10 ml lidocaine hydrochloride 20 mg/ml injection (1 source) Antiarrhythmic, Amide Local Anesthetic Start: 06-15-2023 End: 06-15-2023 lidocaine 2 % injection linaclotide 0.29 mg oral capsule (20 sources) Guanylate Cyclase-C Agonist Start: 01-08-2023 End: 11-26-2023 take 1 capsule by mouth once daily Linaclotide (Linzess) 290 mcg capsule Discontinued 290 MCG PO Daily October 23, 2023 12:00am November 26, 2023 9:39am Start: 01-08-2023 take 1 capsule by mo [facility] at bedtime LINZESS 290 MCG CAPS capsule Take 1 capsule by mouth in the morning and at bedtime 0 01/08/2023 Active take 1 capsule by mo [facility] every twelve hours Linzess 290 MCG 1 capsule twice a day Active Linzess 290 MCG 1 capsule at least 30 minutes before the first meal of the day on an empty stomach Orally twice daily for 30 days Active loperamide hydrochloride 2 mg oral capsule (13 sources) Opioid Agonist Start: 07-01-2019 End: 07-05-2021 [...] (Dr/Ec) Discontinued 4.8 GM PO Every morning July 01, 2019 12:00am July 05, 2021 1:44pm take 4 tablets by mo [facility] every twenty-four hours Lialda 1.2 GM 4 TABLETS Orally Once a day Active take 2 tablets by mo uth every twenty-four hours Lialda 1.2 GM 2 tablets Orally Once a day Active Mesalamine (Lialda) 1.2 gram tablet,delayed release (DR/EC) (13 sources) Start: 06-26-2019 End: 07-02-2019 take 4 [...] Mesalamine (Lialda) 1.2 gram Tablet,Delayed Release (Dr/Ec) (13 sources) Start: 06-26-2019 End: 06-26-2019 take 4 [...] 2019 1:54pm metroNIDAZOLE 500 mg oral tablet (16 sources) Nitroimidazole Antimicrobial Start: 07-01-2019 End: 07-05-2021 take 500 mg by mouth twice daily Metronidazole Discontinued 500 MG PO Twice daily 6 3 July 01, 2019 12:00am July 05, 2021 1:44pm mupirocin 0.02 mg/mg topical ointment (1 source) RNA Synthetase Inhibitor Antibacterial Mupirocin 2 % apply to affected area twice a day External for 10 Not-Taking oxyCODONE hydrochloride 5 mg oral tablet (13 sources) Opioid Agonist Start: 07-01-2019 End: 01-19-2022 [...] polysaccharide iron complex 150 mg oral capsule (13 sources) Start: 07-05-2021 End: 01-19-2022 Polysaccharide Iron [...] days Orally Once a day for 5 16 Aug, 2022 Active Start: 08-03-2022 take 2 tablets by mo [facility] every twenty-four hours predniSONE 20 [...] MG PO As Directed April 19, 2019 1:00am July 02, 2019 8:26am Take 1 tablet twice a day for 3 days then 1 tablet daily predniSONE Not-T aking/PRN predniSONE Not-T aking pregabalin 150 mg oral capsule (20 sources) Start: 10-04-2022 End: 12-24-2023 take 1 capsule by mouth twice daily Pregabalin (Lyrica) 150 mg capsule Discontinued 150 MG PO Twice daily June 22, 2023 12:00am August 22, 2023 11:55am Start: 04-28-2022 take 1 capsule by mo [...] Chronic Chronic obstructive pulmonary disease and bronchiectasis (14 sources) Bronchitis; Translations: [Bronchitis, not specified as acute or chronic] 06-27-2019 Episodic Coagulation and hemorrhagic disorders (20 sources) Petechiae of skin; Translations: [Spontaneous ecchymoses] Onset: 05-29-2022 Episodic Deficiency and other anemia (13 sources) Anemia; Translations: [Anemia, unspecified] 06-27-2019 Episodic [...] Onset: 06-13-2023 Chronic Fracture of lower limb (15 sources) Other fracture of upper end of [...] [Vitamin D deficiency, unspecified] Chronic Nutritional deficiencies (20 sources) Iron deficiency; Translations: [Iron deficiency] Resolved: [...] region] Episodic Other aftercare (2 sources) Other middle or intermediate school principal (current) drug therapy; Translations: [OTH ASSISTED CURRENT DRUG THERAPY] Onset: 06-08-2022 Episodic Other aftercare (10 sources) Long-term current use of drug therapy; Translations: [Other middle or intermediate school principal (current) drug therapy] Episodic Other and ill-defined cerebrovascular disease (15 sources) Cerebral atherosclerosis; Translations: [Cerebral atherosclerosis] Onset: 03-18-2014 Chronic Other and ill-defined cerebrovascular disease (1 source) Cerebral atherosclerosis; Translations: [Cerebral atherosclerosis] Chronic Other circulatory disease (13 sources) History of cerebrovascular accident; Translations: [Personal [...] [Fibromyalgia] 06-26-2019 Episodic Other connective tissue disease (13 sources) Recurrent falls ; Translations: [Repeated falls] [...] Episodic Other disorders of stomach and duodenum (18 sources) Disorder of function of stomach; Translations: [Disease of stomach and duodenum, unspecified] Onset: 07-18-2018 07-06-2021 Episodic Other female genital disorders (5 sources) Polyp of vagina; Translations: [POLYP OF VAGINA] Onset: 04-17-2022 Episodic Other female genital disorders (10 sources) Polyp of vagina; Translations: [Polyp of vagina] Episodic Other fractures (15 sources) Compression fracture of thoracic spine; Translations: [...] with delayed healing] 06-15-2023 Episodic Other fractures (7 sources) Compression fracture of vertebral column; Translations: [...] [Constipation, unspecified] 11-26-2023 Episodic Other gastrointestinal disorders (5 sources) Constipation, unspecified; Translations: [Constipation, unspecified] Episodic [...] Onset: 10-20-2021 Episodic Other non-traumatic joint disorders (7 sources) Pain in right knee; Translations: [Right knee pain] 06-22-2023 Episodic Other nutritional; endocrine; and metabolic disorders (1 source) Weight loss; Translations: [Abnormal weight loss] 12-19-2023 Episodic Other screening for suspected conditions (not [...] Onset: 03-18-2014 06-26-2019 Episodic Residual codes; unclassified (13 sources) Patient encounter status; Translations: [Encounter for [...] menopausal state; Translations: [Asymptomatic menopausal state] Episodic Residual codes; unclassified (1 source) Family history of cancer of colon; Translations: [Family history of malignant neoplasm of digestive organs] 12-19-2023 Episodic Spondylosis; intervertebral disc disorders; other back problems (20 sources) Lumbar spondylosis; Translations: [Spondylosis without myelopathy or radiculopathy, lumbar region] Onset: 09-30-2014 Chronic Spondylosis; intervertebral disc disorders; other back problems (20 sources) Backache; Translations: [Dorsalgia, unspecified] Onset: 10-02-2014 Resolved: 01-07-2022 04-18-2019 Episodic Substance-related disorders (20 sources) Nicotine dependence, cigarettes, uncomplicated; Translations: [Nicotine dependence] Onset: 03-18-2014 Resolved: 09-15-2020 12-19-2023 Chronic Unclassified (1 source) PERSONAL HISTORY OF [...] traumatic fracture] Onset: 02-27-2023 Urinary tract infections (9 sources) Urinary tract infection, site not specified; Translations: [Urinary tract infectious disease] Onset: 10-18-2021 06-24-2023 Episodic Past or Other Problems Problem Classification [...] sources) High risk drug monitoring status; Translations: [MCFP (current) use of opiate analgesic] Onset: 11-14-2016 Episodic Other aftercare (1 source) MCFP (current) use of opiate analgesic; Translations: [middle or intermediate school principal (current) use of opiate analgesic] Onset: 11-14-2016 [...] Test Name Value Interpretation Reference Range Facility [facility] 12-19-2023 CNOV Office Visit ([place]) AFIA GUTIERRES ([id number]) 1955 F Date Time Provider Department 12/19/23 11:40 AM EVERETT DUNLAP During your visit today, we recorded the following information about you: Pulse Blood pressure Weight 75/minute 116/60 48 kg Everett Dunlap MD 12/19/2023 2:41 PM Signed Consultation requested by Dr. Horacio Erwin for an opinion regarding pancreatic lesion. My final recommendations will be communicated back to the requesting physician by way of shared medical record or fax. REASON FOR VISIT: Pancreatic cyst HPI: Afia Gutierres is a 68 year old female who presents on the request of Dr. Erwin for evaluation of pancreatic cyst. She has chronic left upper quadrant pain for the last 4-5 years recommend the patient's 24-hour a day pain. Complain of nausea but no vomiting. She lost 60 pounds in 2019 over 2 months. But her weight is stable now. MRCP 11/02/2023 described 6 mm cyst adjacent to the pancreatic duct within the head of the pancreas. She does not have diabetes. History of pneumothorax in the past. Status post cholecystectomy. She still smokes cigarettes approximately half pack per day. Does not drink alcohol. She is a and has 1 child who was present with her during this office visit. 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 Previous work up includes: 11/02/2023 MRCP: ABDOMEN: Liver: Within normal limits. Bile Ducts: [...] is evidence of previous vertebroplasty at L2. IMPRESSION: There is a 6 mm T2 hyperintense nonenhancing cyst adjacent to the pancreatic duct within the head of the pancreas. This is similar to that seen on the prior exam. This may be sequelae of prior pancreatitis (a small pseudocyst) or a cystic neoplasm such as an IPMN. There are uncomplicated colonic diverticula. 06/13/2023 Labs: CBC, LFT's and INR normal. ALLERGIES Allergen Reactions Cefdinir Other: See Comments Ibuprofen Unknown Nsaids (Non-Steroid* Other: See Comments Other Reaction(s): diarrhea, itching and rash Ghcioxl-Pwx-Iws Red* Unknown Other Reaction(s): Unknown Sulfamethoxazole-Tr* Unknown Zoledronic Acid Other: See Comments History reviewed. No pertinent past medical history. PAST SURGICAL HISTORY Procedure Laterality Date COLONOSCOPY SCREENING FAMILY HISTORY Problem Relation Age of Onset Crohn's Disease Father Colon Cancer No Family History Social History Tobacco Use Smoking status: Every Day Types: Cigarettes Smokeless tobacco: Never Vaping Use Vaping status: Never Used Substance Use Topics Alcohol use: Not Currently Drug use: Yes Types: Marijuana Comment: GUMMIES AT BEDTIME Current Outpatient Medications Medication Sig albuterol (PROVENTIL) 2.5 mg /3 mL (0.083 %) nebulizer solution Every 6 hours baclofen 20 mg tablet Take 20 mg by mouth every 6 hours as needed. calcium carbonate (OS-BINA 500) 500 mg calcium (1,250 mg) tablet once daily. cholecalciferol (VITAMIN D3) 1,000 unit tab tablet 2,000 Units. dicyclomine (BENTYL) 20 mg tablet four times daily. docusate sodium (COLACE) 100 mg capsule two times a day. escitalopram oxalate (LEXAPRO) 10 mg tablet one time only. HYDROcodone-acetamin ophen (NORCO) 5-325 mg per tablet .COMPLEX hydrOXYzine pamoate (VISTARIL) 25 mg capsule Take by mouth. Ibandronate 150 mg tablet .COMPLEX linaCLOtide (LINZESS) 290 mcg capsule once daily. omeprazole (PRILOSEC) 40 mg capsule once daily. pregabalin (LYRICA) 150 mg capsule Take 150 mg by mouth two times a day. traZODone (DESYREL) 150 mg tablet Take 200 mg by mouth daily at bedtime. No current facility-administere d medications for this visit. REVIEW OF SYSTEMS: PAIN ASSESSMENT: Negative for pain, history of chronic pain, or current treatment for a chronic pain condition. GENERAL: No weight loss, malaise or fevers HEENT: Negative for frequent or significant headaches, No changes in hearing or vision, no nose bleeds or other nasal problems NECK: Negative for lumps, goiter, pain and significant neck swelling RESPIRATORY: Negative for cough, hemoptys (more content not included)... Normal [facility] HISTORY PHYSICALon HISTORY PHYSICAL HNO ID: [id number] Author: EVERETT DUNLAP MD Service: ? Author Type: Physician Type: H&P Filed: 12/19/2023 14:41 Note Text: Consultation requested by Dr. Horacio Erwin for an opinion regarding pancreatic lesion. My final recommendations will be communicated back to the requesting physician by way of shared medical record or fax. REASON FOR VISIT: Pancreatic cyst HPI: Afia Gutierres is a 68 year old female who presents on the request of Dr. Erwin for evaluation of pancreatic cyst. She has chronic left upper quadrant pain for the last 4-5 years recommend the patient's 24-hour a day pain. Complain of nausea but no vomiting. She lost 60 pounds in 2019 over 2 months. But her weight is stable now. MRCP 11/02/2023 described 6 mm cyst adjacent to the pancreatic duct within the head of the pancreas. She does not have diabetes. History of pneumothorax in the past. Status post cholecystectomy. She still smokes cigarettes approximately half pack per day. Does not drink alcohol. She is a and has 1 child who was present with her during this office visit. 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 Previous work up includes: 11/02/2023 MRCP: ABDOMEN: Liver: Within normal limits. Bile Ducts: [...] is evidence of previous vertebroplasty at L2. IMPRESSION: There is a 6 mm T2 hyperintense nonenhancing cyst adjacent to the pancreatic duct within the head of the pancreas. This is similar to that seen on the prior exam. This may be sequelae of prior pancreatitis (a small pseudocyst) or a cystic neoplasm such as an IPMN. There are uncomplicated colonic diverticula. 06/13/2023 Labs: CBC, LFT's and INR normal. ALLERGIES Allergen Reactions Cefdinir Other: See Comments Ibuprofen Unknown Nsaids (Non-Steroid* Other: See Comments Other Reaction(s): diarrhea, itching and rash Fjjysqd-Lgw-Vcp Red* Unknown Other Reaction(s): Unknown Sulfamethoxazole-Tr* Unknown Zoledronic Acid Other: See Comments History reviewed. No pertinent past medical history. PAST SURGICAL HISTORY Procedure Laterality Date COLONOSCOPY SCREENING FAMILY HISTORY Problem Relation Age of Onset Crohn's Disease Father Colon Cancer No Family History Social History Tobacco Use Smoking status: Every Day Types: Cigarettes Smokeless tobacco: Never Vaping Use Vaping status: Never Used Substance Use Topics Alcohol use: Not Currently Drug use: Yes Types: Marijuana Comment: GUMMIES AT BEDTIME Current Outpatient Medications Medication Sig albuterol (PROVENTIL) 2.5 mg /3 mL (0.083 %) nebulizer solution Every 6 hours baclofen 20 mg tablet Take 20 mg by mouth every 6 hours as needed. calcium carbonate (OS-BINA 500) 500 mg calcium (1,250 mg) tablet once daily. cholecalciferol (VITAMIN D3) 1,000 unit tab tablet 2,000 Units. dicyclomine (BENTYL) 20 mg tablet four times daily. docusate sodium (COLACE) 100 mg capsule two times a day. escitalopram oxalate (LEXAPRO) 10 mg tablet one time only. HYDROcodone-acetamin ophen (NORCO) 5-325 mg per tablet .COMPLEX hydrOXYzine pamoate (VISTARIL) 25 mg capsule Take by mouth. Ibandronate 150 mg tablet .COMPLEX linaCLOtide (LINZESS) 290 mcg capsule once daily. omeprazole (PRILOSEC) 40 mg capsule once daily. pregabalin (LYRICA) 150 mg capsule Take 150 mg by mouth two times a day. traZODone (DESYREL) 150 mg tablet Take 200 mg by mouth daily at bedtime. No current facility-administere d medications for this visit. REVIEW OF SYSTEMS: PAIN ASSESSMENT: Negative for pain, history of chronic pain, or current treatment for a chronic pain condition. GENERAL: No weight loss, malaise or fevers HEENT: Negative for frequent or significant headaches, No changes in hearing or vision, no nose bleeds or other nasal problems NECK: Negative for lumps, goiter, pain and significant neck swelling RESPIRATORY: Negative for cough, hemoptysis, wheezing, COPD, dyspnea or shortness of breath CARDIOVASCULAR: Negative for chest pain, leg swelling, hypertension, CHF or palpitations GI: No nausea, vomiting, or diarrhea : No history of dysuria, frequency or incontinence MUSCULOSKELETAL: (more content not included)... Normal [facility] Card Basophils Auto (Bld) [#/Vol] on 12-12-2023 Basophils (Bld) [#/Vol] 0.0 10 3/uL 0.0-0.1 [facility] Basophils/100 WBC Auto (Bld) on 12-12-2023 Basophils/100 WBC (Bld) 0.3 % 0.2-2.0 [facility] Eosinophils/100 WBC Auto (Bl d)on 12-12-2023 Eosinophils/100 WBC (Bld) 0.9 % 0.9-7.0 [facility] Erythrocyte distribution wid th Auto (RBC) [Ratio]on 12-12-2023 Erythrocyte distribution width (RBC) [Ratio] 11.8 % 11.0-15.0 [facility] Estimated glomerular filtrat ion rate (GFR) non- Americanon 12-12-2023 GFR/1.73 sq M.predicted among non-blacks MDRD (S/P/Bld) [Vol rate/Area] mL/min/{1.73_m2} >=60 mL/min/1.73 m 2 [facility] Globulin Calc (S) [Mass/Vol] on 12-12-2023 Globulin (S) [Mass/Vol] 3.5 g/dL [facility] Hematocrit Auto (Bld) [Volum e fraction]on 12-12-2023 Hematocrit (Bld) [Volume fraction] 42.8 % 36.0-48.0 [facility] Hemoglobin [Mass/volume] in Bloodon 12-12-2023 Hemoglobin (Bld) [Mass/Vol] 13.9 g/dL 12.0-16.0 [facility] Laboratory - Chemistry and C hemistry - challengeon 12-12-2023 Bilirubin Ql (U) Negative NEGATIVE [facility] Glucose (U) [Mass/Vol] Negative NEGATIVE [facility] Ketones Ql (U) Negative NEGATIVE [facility] pH (U) 7.0 [pH] 5.0-9.0 [facility] Specific gravity (U) [Rel density] 1.015 1.005-1.025 [facility] Urobilinogen Qn (U) 0.2 {Skip'U}/dL 0.2-1.0 [facility] Albumin [Mass/Vol] 3.7 g/dL 3.4-5.0 [facility] ALP [Catalytic activity/Vol] 54 U/L 46-116 [facility] ALT [Catalytic activity/Vol] 18 U/L 14-59 [facility] AST [Catalytic activity/Vol] 17 U/L 15-37 [facility] Bilirubin [Mass/Vol] 0.3 mg/dL 0.2-1.0 [facility] Calcium [Mass/Vol] 9.4 mg/dL 8.5-10.1 [facility] Chloride [Moles/Vol] 99 mmol/L 98-107 [facility] CO2 [Moles/Vol] 27.4 mmol/L 21.0-32.0 [facility] Creatinine [Mass/Vol] 0.78 mg/dL 0.55-1.02 [facility] GFR/1.73 sq M.predicted MDRD (S/P/Bld) [Vol rate/Area] mL/min/{1.73_m2} >=60 mL/min/1.73 m 2 [facility] Glucose [Mass/Vol] 151 mg/dL High 74-106 [facility] Potassium [Moles/Vol] 3.5 mmol/L 3.5-5.1 [facility] Protein [Mass/Vol] 7.2 g/dL 6.4-8.2 [facility] Sodium [Moles/Vol] 137 mmol/L 136-145 [facility] Urea nitrogen [Mass/Vol] 12.0 mg/dL 7.0-18.0 [facility] Urea nitrogen/Creatinine [Mass ratio] 15.4 mg/mg [facility] Laboratory - Hematology and Cell countson 12-12-2023 Immature granulocytes/100 WBC (Bld) 0.3 % 0.0-0.5 [facility] Laboratory - Microbiology an d Antimicrobial susceptibilityon 12-12-2023 SARS-CoV-2 (COVID-19) RNA JOSH+probe Ql (Unsp spec) Negative NEGATIVE [facility] Comment on above: This test has not be en FDA cleared or approved, but has beenauthorized by the FDA under an Emergency Use Authorization(EUA) for use by authorized laboratories certified underIA that meet the requirements to perform moderate or highcomplexity testing. This test has been authorized only forthe detection of proteins from SARS-CoV-2, not for any otherviruses or pathogens. The emergency use of this test isauthorized for the duration of the declaration thatcircumstances exist justifying the authorization ofemergency use of in vitro diagnostic tests for detectionand/or diagnosis of Covid-19 under section 564(b)(1) of theAct, 21 U.S.C. 360bbb-3(b)(1), unless the declaration isterminated or authorization is revoked sooner. Laboratory - Specimen inform ationon 12-12-2023 Appearance (U) CLEAR CLEAR [facility] Color (U) LT. YELLOW YELLOW [facility] Laboratory - Urinalysison Leukocyte esterase Test strip Ql (U) Negative NEGATIVE [facility] Nitrite Ql (U) Negative NEGATIVE [facility] Protein Ql (U) Negative NEG/TRACE [facility] Leukocytes [#/volume] correc jer for nucleated erythrocytes in Blood by Automated counon 12-12-2023 WBC corrected for nucl RBC Auto (Bld) [#/Vol] 5.7 10 3/uL 4.0-11.0 [facility] Lymphocytes Auto (Bld) [#/Vo l]on 12-12-2023 Lymphocytes (Bld) [#/Vol] 1.0 10 3/uL Low 1.2-3.8 [facility] Lymphocytes/100 WBC Auto (Bl d)on 12-12-2023 Lymphocytes/100 WBC (Bld) 18.0 % Low 20.5-60.0 [facility] MCH Auto (RBC) [Entitic mass ]on 12-12-2023 MCH (RBC) [Entitic mass] 32.4 pg 26.7-34.0 [facility] MCHC Auto (RBC) [Mass/Vol]on 12-12-2023 MCHC (RBC) [Mass/Vol] 32.5 g/dL 29.9-35.2 [facility] MCV Auto (RBC) [Entitic vol] on 12-12-2023 MCV (RBC) [Entitic vol] 99.8 fL High 81.0-99.0 F [facility] Monocytes Auto (Bld) [#/Vol] on 12-12-2023 Monocytes (Bld) [#/Vol] 0.3 10 3/uL 0.3-0.8 [facility] Monocytes/100 WBC Auto (Bld) on 12-12-2023 Monocytes/100 WBC (Bld) 5.1 % 1.7-12.0 [facility] Neutrophils Auto (Bld) [#/Vo l]on 12-12-2023 Neutrophils (Bld) [#/Vol] 4.3 10 3/uL 1.4-6.5 [facility] Neutrophils/100 WBC Auto (Bl d)on 12-12-2023 Neutrophils/100 WBC (Bld) 75.4 % High 43.0-75.0 [facility] No Panel Informationon 12-11 Urine Microscopic Review NO [facility] Urine Occult Blood Negative NEGATIVE [facility] Eosinophils # (Auto) 0.1 10 3/uL 0.0-0.[address] [facility] Immature Granulocyte # (Auto) 0.02 10 3/uL 0.00-0.03 [facility] Platelet mean volume Auto (B ld) [Entitic vol]on 12-12-2023 Platelet mean volume (Bld) [Entitic vol] 9.1 fL Low 9.5-13.5 [facility] Platelets Auto (Bld) [#/Vol] on 12-12-2023 Platelets (Bld) [#/Vol] 168 10 3/uL 150-450 [facility] RBC Auto (Bld) [#/Vol]on RBC (Bld) [#/Vol] 4.29 10 6/uL 4.20-5.40 [facility] Serum or plasma albumin/glob ulin mass ratioon 12-12-2023 Albumin/Globulin [Mass ratio] 1.1 {ratio} [facility] Serum or plasma anion gap de terminationon 12-12-2023 Anion gap [Moles/Vol] 14.1 mmol/L Fi [facility] CNPNon 11-30-2023 KRISTINA Telephone (GAST[place]) AFIA GUTIERRES ([id number]) 1955 F Date Time Provider Department 11/30/23 EVERETT DUNLAP During your visit today, we recorded the following information about you: Angela Monson RN 11/30/2023 12:51 PM Signed Pt referred from Dr. Erwin for EUS for pancreas cyst. Dr. Erwin's OV note sent for scanning. Dr. Dunlap, please review and advise. Pt does not take anticoagulation. Thank you, Angela Monson RN 11/02/2023 MRCP: ABDOMEN: Liver: Within normal limits. Bile Ducts: [...] is evidence of previous vertebroplasty at L2. IMPRESSION: There is a 6 mm T2 hyperintense nonenhancing cyst adjacent to the pancreatic duct within the head of the pancreas. This is similar to that seen on the prior exam. This may be sequelae of prior pancreatitis (a small pseudocyst) or a cystic neoplasm such as an IPMN. There are uncomplicated colonic diverticula. Everett Dunlap MD 12/02/2023 8:49 PM Signed Awaiting MRCP images to be uploaded to [employer]. Schedule follow-up visit in my pancreas clinic in the next 1-2 months. Likely the patient does not need EUS giving stable small pancreatic cyst measuring 6 mm. MD Iona Vigil Dawn, RN 12/03/2023 3:58 PM Signed MRI images available for review. Schedulers, please call pt to schedule OV in pancreas clinic as indicated below. Dr. Dunlap has availability 12/05/2023. Thank you, Angela Monson, Beth Anaya 12/04/2023 10:02 AM Signed Spoke with patient. Unable to get a ride on 12/04, scheduled 12/18 Thank you Beth Summers PSS Allergies As of Date: 11/30/2023 (Not on File) Date Reviewed: Never Reviewed Reason for Visit: Procedure [88] Cmt: Referred for EUS--->needs OV first Primary Visit Diagnosis:Pancreatic cyst [K86.2] Problem List As Of Date: 11/30/2023 (None) Encounter Status:Closed by BETH SUMMERS on 12/04/23 Normal [facility] ISTAT XRay CREon 11-02-2023 ISTAT GFR > 60.0 Normal [facility] Comment on above: Result Comment: PERF ORMED BY: [place] [address] PATHOLOGIST ADVERTISEMENT COMPOSITOR SHELTON NEVAREZ M.D. Performed By: #### I SCRE #### [address] MR abdomen wo/w conon 2023 MR abdomen wo/w con [facility] [place] [address] MRI Report Signed Patient: Afia Gutierres MR#: [id number] : 1955 Acct:[id number] Age/Sex: 68 / F ADM Date: 11/02/23 Loc: MR Room: Type: [facility] Attending Dr: Horacio Erwin MD Copies to: [...] Wai Denise M.D.11/02/2023 8:02 PM Dictation Location: [place] [address] Transcribed By: [facility] 11/02/232001 Dictated By: Wai Denise II, MD 11/02/231953 Signed By: 11/02/232001 Normal [facility] No Panel InformationOrdered By: Horacio Erwin on 11-02-2023 Bedside Estimated GFR (eGFR) > 60.0 [facility] Whole blood creatinine measu rementOrdered By: Horacio Erwin on 11-02-2023 Creatinine [Mass/Vol] 0.5 mg/dL Low 0.6-1.3 [facility] Comment on above: ER/ESD physician is notified/shown all ISTAT results.Critical values may be confirmed by laboratory testing ifdeemed necessary by ER attending doctor. Result Comment: ER/E SD physician is notified/shown all ISTAT results. Critical values may be confirmed by laboratory testing if deemed necessary by ER attending doctor. Performed By: #### I SCRE #### [facility] [address] Laboratory - Chemistry and C hemistry - challengeon 06-22-2023 Bilirubin Ql (U) Negative [facility] Glucose (U) [Mass/Vol] [facility] Ketones Ql (U) Negative [facility] pH (U) 5 [pH] [facility] Specific gravity (U) [Rel density] 1.025 [facility] Urobilinogen (U) [Mass/Vol] 0.2 mg/dL [facility] Laboratory - Specimen inform ationon 06-22-2023 Appearance (U) cloudy [facility] Color (U) DarkYellow [facility] Laboratory - Urinalysison Leukocyte esterase Test strip Ql (U) Negative [facility] Nitrite Ql (U) Positive [facility] Protein Ql (U) Negative [facility] No Panel Informationon 06-21 Urine Occult Blood Negative [facility] Urine Cultureon 06-22-2023 Bacteria identified Cx Nom (U) ORGANISM: Citrobacter freundii complex (O:CITFRC) [place] Count >100,000 Aerobic ARIEL Charge (NMIC56) ----- SUSCEPTIBILITY ---- ORGANISM: O:CITFRC ANTIBIOTIC INTERPRETATION ARIEL Amikacin S <16 Aztreonam IB <4 Cefepime S <2 Ceftazidime IB <1 Ceftazidime/Avibacta m S <4 Ceftriaxone IB <1 Ciprofloxacin S <0.25 Ertapenem S <0.5 Gentamicin S <2 Levofloxacin S <0.5 Meropenem S <1 Nitrofurantoin S <32 Piperacillin/Tazobac mena IB <8 Tetracycline S <4 Tigecycline S <2 Tobramycin S <2 Trimethoprim/Sulfame thoxazole S <0.5 S = SUSCEPTIBLE I = [...] RESISTANT TO ALL B-LACTAM DRUGS. PERFORMED BY: [place] [address] PATHOLOGIST ADVERTISEMENT COMPOSITOR SHELTON NEVAREZ M.D. Normal [facility] Comment on above: Performed By: #### C UU #### [address] Urine culture routineOrdered By: Nettie Iqbal on 06-22-2023 Bacteria identified Cx Nom (U) Citrobacter freundii complex [facility] IR VERTEBROPLASTY CERVICOTHO RACICon 06-15-2023 IR [...] Ricardo Carbajal MD 06/18/23 Final result Normal IR VERTEBROPLASTY EACH ADDIT Alexander 06-15-2023 IR VERTEBROPLASTY EACH ADDITIONAL IMPRESSION: Technically [...] Ricardo Carbajal MD 06/18/23 Final result Normal CBCon 06-13-2023 Erythrocyte distribution width (RBC) [Ratio] 13.2 % Normal 11.8-14.4 [facility] Comment on above: Performed By: #### C DARIELA PT, CP #### [address] [place] [address] Tire Sorter: Janna Monzon MD Hematocrit (Bld) [Volume fraction] 44.8 % Normal 36.3-47.1 [facility] Comment on above: Performed By: #### C DARIELA PT, CP #### [address] [place] [address] Tire Sorter: Janna Monzon MD Hemoglobin (Bld) [Mass/Vol] 14.2 g/dL Normal 11.9-15.1 [facility] Comment on above: Performed By: #### C DARIELA PT, CP #### [address] [place] [id number] [employer]ire Sorter: Janna Monzon MD MCH (RBC) [Entitic mass] 31.8 pg Normal 25.2-33.5 [facility] Comment on above: Performed By: #### C BC, PT, CP #### [address] [place], [facility] T[employer] Sorter: Janna Monzon MD MCHC (RBC) [Mass/Vol] 31.7 g/dL Normal 28.4-34.8 [facility] Comment on above: Performed By: #### C BC, PT, CP #### [address] [place] [address] T[employer] Sorter: Janna Monzon MD MCV (RBC) [Entitic vol] 100.2 fL Normal 82.6-102.9 M [facility] Comment on above: Performed By: #### C BC, PT, CP #### [address] [place], [facility] T[employer] Sorter: Janna Monzon MD NRBC Automated 0.0 per 100 WBC Normal 0.0 [facility] Comment on above: Performed By: #### C BC, PT, CP #### [address] [place], [facility] T[employer] Sorter: Janna Monzon MD Platelet mean volume (Bld) [Entitic vol] 9.9 fL Normal 8.1-13.5 [facility] Comment on above: Performed By: #### C BC, PT, CP #### [address] [place], [place] [id number] Tire Sorter: Janna Monzon MD Platelets (Bld) [#/Vol] 167 10*3/uL Normal 138-453 [facility] Comment on above: Performed By: #### C BC, PT, CP #### [address] [place] [address] Tire Sorter: Janna Monzon MD RBC (Bld) [#/Vol] 4.47 10*6/uL Normal 3.95-5.11 [facility] Comment on above: Performed By: #### C BC, PT, CP #### [facility] [address] [place], [place] [id number] Tire Sorter: Janna Monzon MD WBC (Bld) [#/Vol] 4.4 10*3/uL Normal 3.5-11.3 [facility] Comment on above: Performed By: #### C BC, PT, CP #### [facility] [address] [place], [place] [id number] Tire Sorter: Janna Monzon MD Comp Metabolic Profon 2023 Albumin [Mass/Vol] 4.3 g/dL Normal 3.5-5.2 [facility] Comment on above: Performed By: #### C BC, PT, CP #### [facility] [address] [place] [address] Dr. [place], [place] [id number] T[employer] Sorter: Janna Monzon MD Albumin/Glob Ratio 1.3 Normal 1.0-2.5 [facility] Comment on above: Performed By: #### C BC, PT, CP #### [facility] [address] [place] [address] [place] [address] Tire Sorter: Janna Monzon MD Alkaline Phos 78 U/L Normal 35-104 [facility] Comment on above: Performed By: #### C BC, PT, CP #### [facility] [address] [place], [place] [id number] T[employer] Sorter: Janna Monzon MD ALT [Catalytic activity/Vol] 11 U/L Normal 5-33 [facility] Comment on above: Performed By: #### C BC, PT, CP #### [facility] [address] [place], [place] [address]83 T[employer] Sorter: Janna Monzon MD Anion gap [Moles/Vol] 8 mmol/L Low 9-17 [facility] Comment on above: Performed By: #### C BC, PT, CP #### [facility] [address] [place], [place] [id number] T[employer] Sorter: Janna Monzon MD AST [Catalytic activity/Vol] 21 U/L Normal <32 [facility] Comment on above: Performed By: #### C BC, PT, CP #### [facility] [address] [place] [address] Tire Sorter: Janna Monzon MD Bilirubin [Mass/Vol] 0.2 mg/dL Low 0.3-1.2 [facility] Comment on above: Performed By: #### C DARIELA, PT, CP #### [address] [place], [place] [id number] T[employer] Sorter: Janna Monzon MD BUN/CRE Ratio 30 High 9-20 [facility] Comment on above: Performed By: #### C DARIELA, PT, CP #### [address] [place] [address] T[employer] Sorter: Janna Monzon MD Calcium [Mass/Vol] 9.3 mg/dL Normal 8.6-10.4 [facility] Comment on above: Performed By: #### C DARIELA, PT, CP #### [facility] [address] [place] [address] Tire Sorter: Janna Monzon MD Chloride [Moles/Vol] 103 mmol/L Normal 98-107 [facility] Comment on above: Performed By: #### C BC, PT, CP #### [facility] [address] [place] [address] Dr. [place], [place] [id number] Tire Sorter: Janna Monzon MD CO2 [Moles/Vol] 29 mmol/L Normal 20-31 [facility] Comment on above: Performed By: #### C BC, PT, CP #### [facility] [address] [place] [address] Tire Sorter: Janna Monzon MD Creatinine [Mass/Vol] 0.5 mg/dL Normal 0.5-0.9 [facility] Comment on above: Performed By: #### C DARIELA, PT, CP #### [facility] [address] [place] [address] Tire Sorter: Janna Monzon MD GFR/1.73 sq M.predicted among non-blacks MDRD (S/P/Bld) [Vol rate/Area] mL/min/{1.73_m2} Normal >60 [facility] Comment on above: Result Comment: These results [...] By: #### C DARIELA PT, CP #### [address] [place] [address] Tire Sorter: Janna Monzon MD Glucose [Mass/Vol] 77 mg/dL Normal 70-99 [facility] Comment on above: Performed By: #### C DARIELA PT, CP #### [facility] [address] [place] [address] Tire Sorter: Janna Monzon MD Potassium [Moles/Vol] 4.0 mmol/L Normal 3.7-5.3 [facility] Comment on above: Performed By: #### C DARIELA PT, CP #### [facility] [address] [place] [address] Tire Sorter: Janna Monzon MD Protein [Mass/Vol] 7.7 g/dL Normal 6.4-8.3 [facility] Comment on above: Performed By: #### C BC, PT, CP #### [facility] [address] [place] [address] Tire Sorter: Janna Monzon MD Sodium [Moles/Vol] 140 mmol/L Normal 135-144 [facility] Comment on above: Performed By: #### C BC, PT, CP #### [facility] [address] [place] [address] Tire Sorter: Janna Monzon MD Urea nitrogen [Mass/Vol] 15 mg/dL Normal 8-23 [facility] Comment on above: Performed By: #### C BC, PT, CP #### [address] [place] [address] Tire Sorter: Janna Monzon MD PTon 06-13-2023 INR Coag (PPP) [Relative time] 0.9 {INR} Normal [facility] Comment on above: Result Comment: Therapeutic Range: Moderate Anticoagulant Intensity: INR = 2.0-3.0 High Anticoagulant Intensity: INR = 2.5-3.5 Performed By: #### C BC, PT, CP #### [address] [place] [address] Tire Sorter: Janna Monzon MD PT Coag (PPP) [Time] 12.3 s Normal 11.7-14.1 [facility] Comment on above: Performed By: #### C BC, PT, CP #### [address] [place] [address] Tire Sorter: Janna Monzon MD XR lumbar spine AP/LAT/FLX/E XTon 02-27-2023 XR lumbar spine AP/LAT/FLX/EXT [address] [address] XRay Report Signed Patient: Afia Gutierres MR#: [id number] : 1955 Acct:[id number] Age/Sex: 67 / F ADM Date: 02/27/23 Loc: XD Room: Type: [facility] Attending Dr: Ana REVELES Copies to: ANUSHKA [...] Verito Anderson M.D.02/27/2023 3:16 PM Dictation Location: [place] [address] Transcribed By: [facility] 02/27/23 1516 Dictated By: Verito Anderson MD 02/27/23 151 Signed By: 02/27/23 151 Normal [facility] Automated erythrocytes count in urine sediment (number/area)Ordered By: Nettie Iqbal on 01-11-2023 RBC Auto (Urine sed) [#/Area] 3-4 [HPF] 0-4 [facility] Automated leukocytes count i n urine sediment (number/area)Ordered By: Nettie Iqbal on 01-11-2023 WBC Auto (Urine sed) [#/Area] 0-1 [HPF] 0-4 [facility] Automated urine color determ inationOrdered By: Nettie Iqbal on 01-11-2023 Color (U) Dark yellow Critically abnormal Yellow [facility] Comment on above: Order Comment: Name Collection Type:: Clean-Voided Midstream Performed By: #### A DDONUAPLUS, CUU #### [facility] [address] Automated urine sediment bina cium oxalate crystal count by microscopy (number/high powOrdered By: Nettie Iqbal on 01-11-2023 Calcium oxalate crystals LM.HPF (Urine sed) [#/Area] 3+ [HPF] [facility] Bilirubin Test strip Ql (U)O rdered By: Nettie Iqbal on 01-11-2023 Bilirubin Ql (U) Negative Negative [facility] Dipstick and Microscopicon 1 03-13-2022 Appearance (U) Cloudy Critically abnormal Clear [facility] Comment on above: Order Comment: Name Collection Type:: Clean-Voided Midstream Performed By: #### A DDONUAPLUS, CUU #### [place] [address] [place] Bacteria,Urine 1+ High None Seen [facility] Comment on above: Order Comment: Name Collection Type:: Clean-Voided Midstream Performed By: #### A DDONUAPLUS, CUU #### [place] [address] [place] Bilirubin,Urine Negative Normal Negative [facility] Comment on above: Order Comment: Name Collection Type:: Clean-Voided Midstream Performed By: #### A DDONUAPLUS, CUU #### [place] [address] [place] Calcium Oxalate Crystals,Urine 3+ Normal [facility] Comment on above: Order Comment: Name Collection Type:: Clean-Voided Midstream Performed By: #### A DDONUAPLUS, CUU #### [facility] [address] [place] [id number] [place] Glucose Ql (U) Normal Normal Normal [facility] Comment on above: Order Comment: Name Collection Type:: Clean-Voided Midstream Performed By: #### A DDONUAPLUS, CUU #### [facility] [address] [place] [id number] [place] Hyaline Casts,Urine 0-8 Normal 0-8 [facility] Comment on above: Order Comment: Name Collection Type:: Clean-Voided Midstream Result Comment: PERF ORMED BY: [place] [address] PATHOLOGIST ADVERTISEMENT COMPOSITOR SHELTON NEVAREZ M.D. Performed By: #### A DDONUAPLUS, CUU #### [place] [address] [place] Ketones Ql (U) Trace High Negative [facility] Comment on above: Order Comment: Name Collection Type:: Clean-Voided Midstream Performed By: #### A DDONUAPLUS, CUU #### [place] [address] [place] Leukocyte esterase Test strip Ql (U) Negative Normal Negative [facility] Comment on above: Order Comment: Name Collection Type:: Clean-Voided Midstream Performed By: #### A DDONUAPLUS, CUU #### [place] [address] [place] Nitrite,Urine Negative Normal Negative [facility] Comment on above: Order Comment: Name Collection Type:: Clean-Voided Midstream Performed By: #### A DDONUAPLUS, CUU #### [place] [address] [place] Occult Blood,Urine Negative Normal Negative [facility] Comment on above: Order Comment: Name Collection Type:: Clean-Voided Midstream Result Comment: PERF ORMED BY: [place] [address] PATHOLOGIST ADVERTISEMENT COMPOSITOR SHELTON NEVAREZ M.D. Performed By: #### A DDONUAPLUS, CUU #### [place] [address] [place] Protein,Urine Negative Normal Negative [facility] Comment on above: Order Comment: Name Collection Type:: Clean-Voided Midstream Performed By: #### A DDONUAPLUS, CUU #### [place] [address] [place] RBC,Urine 3-4 Normal 0-4 [facility] Comment on above: Order Comment: Name Collection Type:: Clean-Voided Midstream Performed By: #### A DDONUAPLUS, CUU #### [address] Specificy [place],Urine 1.022 Normal 1.001-1.030 [facility] Comment on above: Order Comment: Name Collection Type:: Clean-Voided Midstream Performed By: #### A DDONUAPLUS, CUU #### [address] Squamous Epithelial Cell,Urine 0-1 Normal 0-2 [facility] Comment on above: Order Comment: Name Collection Type:: Clean-Voided Midstream Performed By: #### A DDONUAPLUS, CUU #### [address] Urobilinogen,Urine Normal Normal Normal [facility] Comment on above: Order Comment: Name Collection Type:: Clean-Voided Midstream Performed By: #### A DDONUAPLUS, CUU #### [address] WBC LM.HPF (Urine sed) [#/Area] 0 /[HPF] Normal 0-4 [facility] Comment on above: Order Comment: Name Collection Type:: Clean-Voided Midstream Performed By: #### A DDONUAPLUS, CUU #### [address] Ketones Auto test strip (U) [Mass/Vol]Ordered By: Nettie Iqbal on 01-11-2023 Ketones (U) [Mass/Vol] Trace Negative [facility] - UrinalysisOrder ed By: Nettie Iqbal on 01-11-2023 Hyaline casts LM Ql (Urine sed) 0-8 [LPF] 0-8 [facility] Nitrite Test strip Ql (U)Ord ered By: Nettie Iqbal on 01-11-2023 Nitrite Ql (U) Negative Negative [facility] Protein Auto test strip (U) [Mass/Vol]Ordered By: Nettie Iqbal on 01-11-2023 Protein (U) [Mass/Vol] Negative Negative [facility] Specific gravity Auto test s trip (U) [Rel density]Ordered By: Nettie Iqbal on 01-11-2023 Specific gravity (U) [Rel density] 1.022 1.001-1.030 [facility] Squamous epithelial cells de tection in urine sediment by light microscopyOrdered By: Nettie Iqbal on 01-11-2023 Epithelial cells.squamous LM Ql (Urine sed) 0-1 [HPF] 0-2 [facility] Urine Cultureon 01-11-2023 Bacteria identified Cx Nom (U) ORGANISM: Strep agalactiae - (group b) (O:STRAGA) [place] Count <10,000 PERFORMED BY: [place] [address] PATHOLOGIST ADVERTISEMENT COMPOSITOR SHELTON NEVAREZ M.D. Normal [facility] Comment on above: Performed By: #### A DDONUAPLUS, CUU #### [address] Urine bacteria detection by automated methodOrdered By: Nettie Iqbal on 01-11-2023 Bacteria Auto Ql (U) 1+ None Seen [facility] Urine clarity by refractomet ry automatedOrdered By: Nettie Iqbal on 01-11-2023 Clarity Refractometry automated (U) Cloudy Clear [facility] Urine culture routineOrdered By: Nettie Iqbal on 01-11-2023 Bacteria identified Cx Nom (U) Strep agalactiae - (group b) [facility] Urine glucose measurement by automated test strip (mass/volume)Ordered By: Nettie Iqbal on 01-11-2023 Glucose Auto test strip (U) [Mass/Vol] Normal mg/dL Normal [facility] Urine hemoglobin detection b y automated test stripOrdered By: Nettie Iqbal on 01-11-2023 Hemoglobin Auto test strip Ql (U) Negative Negative [facility] Urine leukocyte esterase det ection by automated test stripOrdered By: Nettie Iqbal on 01-11-2023 Leukocyte esterase Auto test strip Ql (U) Negative Negative [facility] Urine pH measurement by auto mated test stripOrdered By: Nettie Iqbal on 01-11-2023 pH (U) 5.5 [pH] Normal 5.0-9.0 [facility] Comment on above: Order Comment: Name Collection Type:: Clean-Voided Midstream Performed By: #### A DDONUAPLUS, CUU #### [facility] [address] [place] [address] Urine sediment crystal ident ification by light microscopyOrdered By: Nettie Iqbal on 01-11-2023 Crystals LM Nom (Urine sed) N/A [facility] Urobilinogen Auto test strip (U) [Mass/Vol]Ordered By: Nettie Iqbal on 01-11-2023 Urobilinogen (U) [Mass/Vol] Normal mg/dL Normal [facility] ED Note-Physicianon 12-26-19 ED Note-Physician [id number] #[id number] Normal [facility] Automated erythrocytes count in urine sediment (number/area)Ordered By: Nettie Iqbal on 11-20-2022 RBC Auto (Urine sed) [#/Area] 20-49 [HPF] 0-4 [facility] Automated leukocytes count i n urine sediment (number/area)Ordered By: Nettie Iqbal on 11-20-2022 WBC Auto (Urine sed) [#/Area] Innumerable [HPF] 0-4 [facility] Automated urine color determ inationOrdered By: Nettie Iqbal on 11-20-2022 Color (U) Yellow Normal Yellow [facility] Comment on above: Order Comment: Name Collection Type:: Collection Method Unknown Performed By: #### C UU, ADDONUAPLUS #### [facility] [address] [place] [address] Automated urine sediment bina cium oxalate crystal count by microscopy (number/high powOrdered By: Nettie Iqbal on 11-20-2022 Calcium oxalate crystals LM.HPF (Urine sed) [#/Area] Rare [HPF] [facility] Bilirubin Test strip Ql (U)O rdered By: Nettie Iqbal on 11-20-2022 Bilirubin Ql (U) Negative Negative [facility] Casts typing in urine sedime nt by light microscopyOrdered By: Nettie Iqbal on 11-20-2022 Casts LM Nom (Urine sed) None seen [LPF] None Seen [facility] Dipstick and Microscopicon 0 11-20-2022 Appearance (U) Turbid Critically abnormal Clear [facility] Comment on above: Order Comment: Name Collection Type:: Collection Method Unknown Performed By: #### C UU, ADDONUAPLUS #### [place] [address] [place] Bacteria,Urine 4+ High None Seen [facility] Comment on above: Order Comment: Name Collection Type:: Collection Method Unknown Performed By: #### C UU, ADDONUAPLUS #### [place] [address] [place] Bilirubin,Urine Negative Normal Negative [facility] Comment on above: Order Comment: Name Collection Type:: Collection Method Unknown Performed By: #### C UU, ADDONUAPLUS #### [address] Calcium Oxalate Crystals,Urine Rare Normal [facility] Comment on above: Order Comment: Name Collection Type:: Collection Method Unknown Performed By: #### C UU, ADDONUAPLUS #### [address] Glucose Ql (U) Normal Normal Normal [facility] Comment on above: Order Comment: Name Collection Type:: Collection Method Unknown Performed By: #### C UU, ADDONUAPLUS #### [place] [address] [place] Hyaline Casts,Urine None Seen Normal 0-8 [facility] Comment on above: Order Comment: Name Collection Type:: Collection Method Unknown Performed By: #### C UU, ADDONUAPLUS #### [place] [address] [place] Ketones Ql (U) 1+ High Negative [facility] Comment on above: Order Comment: Name Collection Type:: Collection Method Unknown Performed By: #### C UU, ADDONUAPLUS #### [place] [address] [place] Leukocyte esterase Test strip Ql (U) 4+ High Negative [facility] Comment on above: Order Comment: Name Collection Type:: Collection Method Unknown Performed By: #### C UU, ADDONUAPLUS #### [address] Nitrite,Urine Negative Normal Negative [facility] Comment on above: Order Comment: Name Collection Type:: Collection Method Unknown Performed By: #### C UU, ADDONUAPLUS #### [address] Occult Blood,Urine 3+ High Negative [facility] Comment on above: Order Comment: Name Collection Type:: Collection Method Unknown Result Comment: PERF ORMED BY: [place] [address] PATHOLOGIST ADVERTISEMENT COMPOSITOR SHELTON NEVAREZ M.D. Performed By: #### C UU, ADDONUAPLUS #### [address] Other Casts,Urine None Seen Normal None Seen [facility] Comment on above: Order Comment: Name Collection Type:: Collection Method Unknown Result Comment: PERF ORMED BY: [place] [address] PATHOLOGIST ADVERTISEMENT COMPOSITOR SHELTON NEVAREZ M.D. Performed By: #### C UU, ADDONUAPLUS #### [address] Protein,Urine Trace High Negative [facility] Comment on above: Order Comment: Name Collection Type:: Collection Method Unknown Performed By: #### C UU, ADDONUAPLUS #### [place] [address] [place] RBC,Urine 20-49 High 0-4 [facility] Comment on above: Order Comment: Name Collection Type:: Collection Method Unknown Performed By: #### C UU, ADDONUAPLUS #### [place] [address] [place] Specificy [place],Urine 1.008 Normal 1.001-1.030 [facility] Comment on above: Order Comment: Name Collection Type:: Collection Method Unknown Performed By: #### C UU, ADDONUAPLUS #### [address] Squamous Epithelial Cell,Urine 1-2 Normal 0-2 [facility] Comment on above: Order Comment: Name Collection Type:: Collection Method Unknown Performed By: #### C UU, ADDONUAPLUS #### [address] Urobilinogen,Urine Normal Normal Normal [facility] Comment on above: Order Comment: Name Collection Type:: Collection Method Unknown Performed By: #### C UU, ADDONUAPLUS #### [address] WBC,Urine Innumerable High 0-4 [facility] Comment on above: Order Comment: Name Collection Type:: Collection Method Unknown Performed By: #### C UU, ADDONUAPLUS #### [address] Ketones Auto test strip (U) [Mass/Vol]Ordered By: Nettie Iqbal on 11-20-2022 Ketones (U) [Mass/Vol] 1+ Negative [facility] - UrinalysisOrder ed By: Nettie Iqbal on 11-20-2022 Hyaline casts LM Ql (Urine sed) None seen [LPF] 0-8 [facility] Nitrite Test strip Ql (U)Ord ered By: Nettie Iqbal on 11-20-2022 Nitrite Ql (U) Negative Negative [facility] Protein Auto test strip (U) [Mass/Vol]Ordered By: Nettie Iqbal on 11-20-2022 Protein (U) [Mass/Vol] Trace mg/dL Negative [facility] Specific gravity Auto test s trip (U) [Rel density]Ordered By: Nettie Iqbal on 11-20-2022 Specific gravity (U) [Rel density] 1.008 1.001-1.030 [facility] Squamous epithelial cells de tection in urine sediment by light microscopyOrdered By: Nettie Iqbal on 11-20-2022 Epithelial cells.squamous LM Ql (Urine sed) 1-2 [HPF] 0-2 [facility] Urine Cultureon 11-20-2022 Bacteria identified Cx Nom (U) ORGANISM: Klebsiella oxytoca (O:KLEOXY) [place] Count >100,000 Aerobic ARIEL Charge (NMIC56) ----- SUSCEPTIBILITY ---- ORGANISM: O:KLEOXY ANTIBIOTIC INTERPRETATION ARIEL Amikacin S <16 Amoxacillin/K Clavulanate S <8 Ampicillin/Sulbactam S 88/4 Aztreonam S <4 Cefazolin R >16 Cefepime S <2 Ceftazidime S <1 Ceftazidime/Avibacta m S <4 Ceftolozane/Tazobact am S <2 Ceftriaxone S <1 Cefuroxime S <4 Ciprofloxacin S <0.25 Ertapenem S <0.5 Gentamicin S <2 Levofloxacin S <0.5 Meropenem S <1 Meropenem/Vaborbacta m S <2 Nitrofurantoin S <32 Piperacillin/Tazobac mena S <8 Tetracycline S <4 Tigecycline S <2 Tobramycin S <2 Trimethoprim/Sulfame thoxazole S <0.5 S = SUSCEPTIBLE I = [...] RESISTANT TO ALL B-LACTAM DRUGS. PERFORMED BY: [facility] [address] [place] [address] PATHOLOGIST ADVERTISEMENT COMPOSITOR SHELTON NEVAREZ M.D. Normal [facility] Comment on above: Performed By: #### C UUJONATHAN #### [address] Urine bacteria detection by automated methodOrdered By: Nettie Iqbal on 09-11-2023 Bacteria Auto Ql (U) 4+ None Seen [facility] Urine clarity by refractomet ry automatedOrdered By: Nettie Iqbal on 11-20-2022 Clarity Refractometry automated (U) Turbid Clear [facility] Urine culture routineOrdered By: Nettie Iqbal on 11-20-2022 Bacteria identified Cx Nom (U) Klebsiella oxytoca [facility] Urine glucose measurement by automated test strip (mass/volume)Ordered By: Nettie Iqbal on 11-20-2022 Glucose Auto test strip (U) [Mass/Vol] Normal mg/dL Normal [facility] Urine hemoglobin detection b y automated test stripOrdered By: Nettie Iqbal on 11-20-2022 Hemoglobin Auto test strip Ql (U) 3+ Negative [facility] Urine leukocyte esterase det ection by automated test stripOrdered By: Nettie Iqbal on 11-20-2022 Leukocyte esterase Auto test strip Ql (U) 4+ Negative [facility] Urine pH measurement by auto mated test stripOrdered By: Nettie Iqbal on 11-20-2022 pH (U) 7.5 [pH] Normal 5.0-9.0 [facility] Comment on above: Order Comment: Name Collection Type:: Collection Method Unknown Performed By: #### C UU, ADDONUAPLUS #### [address] Urobilinogen Auto test strip (U) [Mass/Vol]Ordered By: Nettie Iqbal on 11-20-2022 Urobilinogen (U) [Mass/Vol] Normal mg/dL Normal [facility] MR MRCPon 11-09-2022 MR MRCP [facility] [place] [address] MRI Report Signed Patient: Afia Gutierres MR#: [id number] : 1955 Acct:[id number] Age/Sex: 67 / F ADM Date: 11/09/22 Loc: Room: Type: [facility] Attending Dr: Kiran Amaya MD Copies to: [...] appears normal in caliber without evidence of choledocholithiasis. No evidence of pancreatic divisum is noted. [...] Zhou Jr., D.O.11/09/2022 10:49 AM Dictation Location: [place] [address] Transcribed By: [facility] 11/09/22 1049 Dictated By: Handy Zhou Jr, DO 11/09/22 1033 Signed By: 11/09/22 1049 Normal [facility] COVID Quick Testingon 2022 Result Negative [place] Other PROF CHEM 8 (BAS METB)on Anion gap [Moles/Vol] 18.4 mmol/L Normal [facility] Comment on above: Performed By: #### B MP, TSH #### [facility] [address] [place] [address] [address] David Cannon Calcium [Mass/Vol] 9.5 mg/dL Normal 8.5-10.1 [facility] Comment on above: Performed By: #### B MP, TSH #### [facility] [address] [place] [address] [address] David Cannon Chloride [Moles/Vol] 104 mmol/L Normal 98-107 [facility] Comment on above: Performed By: #### B MP, TSH #### [facility] [address] [place] [address] [address] David Cannon CO2 [Moles/Vol] 23.5 mmol/L Normal 21.0-32.0 [facility] Comment on above: Performed By: #### B MP, TSH #### [facility] [address] [place] [address] [address] David Cannon Creatinine [Mass/Vol] 0.87 mg/dL Normal 0.55-1.02 [facility] Comment on above: Performed By: #### B MP, TSH #### [facility] [address] [place] [address] [address] David Cannon EGFR-AF LIBYAN >60 Normal >=60 [facility] Comment on above: Performed By: #### B MP, TSH #### [facility] [address] [place] [address] [address] David Cannon EGFR-NON AF LIBYAN >60 Normal >=60 [facility] Comment on above: Performed By: #### B MP, TSH #### [facility] [address] [place] [address] [address] David Cannon Glucose [Mass/Vol] 142 mg/dL Critically high 74-106 [facility] Comment on above: Performed By: #### B MP, TSH #### [facility] [address] [place] [address] [address] David Cannon Potassium [Moles/Vol] 3.9 mmol/L Normal 3.5-5.1 [facility] Comment on above: Performed By: #### B MP, TSH #### [facility] [address] [place] [address] [address] David Cannon Sodium [Moles/Vol] 142 mmol/L Normal 136-145 [facility] Comment on above: Performed By: #### B MP, TSH #### [facility] [address] [place] [address] [address] David Cannon Urea nitrogen [Mass/Vol] 15.0 mg/dL Normal 7.0-18.0 [facility] Comment on above: Performed By: #### B MP, TSH #### [facility] [address] [place] [address] [address] David Cannon Urea nitrogen/Creatinine [Mass ratio] 17.2 mg/mg Normal [facility] Comment on above: Performed By: #### B MP, TSH #### [facility] [address] [place] [address] [address] David Cannon TSHon 07-27-2022 TSH 1.753 uIU/mL Normal 0.358-3.740 [facility] Comment on above: Performed By: #### B NILSA, TSH #### [facility] [address] [address] [address] David Cannon VITAMIN B12on 07-27-2022 Cobalamin (Vitamin B12) [Mass/Vol] 938.0 pg/mL Normal 193.0-986.0 [facility] Comment on above: Performed By: #### V ITB12 ####[facility] [address] [address]Dr. David Cannon VITAMIN D 25 OHon 07-27-2022 VIT D 25-OH 45.3 ng/mL Normal [facility] Comment on above: Performed By: #### V ITAD ####[facility] [address] [id number]. David Cannon VIT D RANGES SEE BELOW Normal [facility] Comment on above: Result Comment: <20 ng/mL Vit D deficient 20 - <30 ng/mL Vit D insufficient 30 - 100 ng/mL Vit D sufficient >100 ng/mL Potential Toxicity Performed By: #### V ITAD ####[facility] [address] [address]Dr. David Cannon XR HIP RT 2 3V [...] by: JANNA HASSAN Date: 2022-07-27 21:[address] [facility] MG MAMM SCREEN 3D ERIC CADon 07-20-2022 MG MAMM SCREEN 3D ERIC CAD Patient: AFIA GUTIERRES Exam Date: 07/20/2022 : 1955 Gender:F Ordering : DR PHANI PRUITT D.O. Admission #: [id number] Family : Order #: [id number] CLICK HERE TO VIEW EXAM RADIOLOGY REPORT PROCEDURE: MAMMOGRAM SCREENING 3D BILATERAL CAD COMPARISON: MG MAMM SCREEN 3D ERIC CAD, 11/02/2020. MG MAMM SCREEN REIC W CAD, 10/22/2019. MG MAMM SCREEN ERIC W CAD, 10/15/2018. MG MAMM SCREEN ERIC W CAD, 10/05/2017. INDICATIONS: Screening mammography Calculator Name NCI Breast Cancer Risk Assessment Tool 5 Year Breast Cancer Risk 1.50% Lifetime Breast Cancer Risk 5.20% Personal Breast Cancer No Personal Ovarian Cancer No Treatments None Family Cancers Father with colon cancer at age 72. LOCATION: [facility] BREAST COMPOSITION: Scattered areas fibroglandular density. FINDINGS: [...] on 07/20/2022 at 14:09 Normal [facility] XR DEXA BONE DENSITYon 07-20 XR DEXA BONE DENSITY EXAMINATION: XR DEX A BONE DENSITY, 07/20/2022 1:15 PM EDT HISTORY: [...] by: CELIA CORMIER Date: 2022-07-20 14:[address] [facility] Urinalysis - AUTOMATEDon Appearance (U) clear [employer] Other Bilirubin Ql (U) Negative [employer] Other Color (U) yellow [employer] Other Glucose Ql (U) Negative [employer] Other Hemoglobin Ql (U) Negative [employer] Other Ketones Ql (U) Negative [employer] Other Leukocyte esterase Test strip Ql (U) Negative [employer] Other Nitrite Ql (U) Negative [employer] Other pH (U) 5.5 [pH] [employer] Other Protein Ql (U) Negative [employer] Other Specific gravity (U) [Rel density] 1.025 [employer] Other Urobilinogen (U) [Mass/Vol] 0.2 mg/dL [employer] Other Urinalysis - AUTOMATED No [employer] Other XR TSPINE 2 VIEWSon 06-17-19 23 [...] CORMIER Date: 2022-06-16 13:46 Normal [facility] BNPon 06-07-2022 Natriuretic peptide B (Bld) [Mass/Vol] 68.0 pg/mL Normal <=900.0 [facility] Comment on above: Performed By: #### C RP, CMP, BNP ####[facility] [address] [address]Dr. David Cannon CBC AUTO DIFFon 06-07-2022 BASO # 0.0 103/ul Normal 0.0-0.1 [facility] Comment on above: Performed By: #### C BC ####[facility] [address] [address]Dr. David Cannon Basophils/100 WBC (Bld) 0.5 % Normal 0.2-2.0 [facility] Comment on above: Performed By: #### C BC ####[facility] [address] [address]Dr. David Cannon EO # 0.2 103/ul Normal 0.0-0.7 [facility] Comment on above: Performed By: #### C BC ####[facility] [address] [address]Dr. David Cannon Eosinophils/100 WBC (Bld) 2.0 % Normal 0.9-7.0 [facility] Comment on above: Performed By: #### C BC ####[facility] [address] [place], [place] [address]Dr. David Cannon Erythrocyte distribution width (RBC) [Ratio] 12.3 % Normal 11.0-15.0 [facility] Comment on above: Performed By: #### C BC ####[facility] [address] [address]Dr. David Cannon Hematocrit (Bld) [Volume fraction] 44.4 % Normal 36.0-48.0 [facility] Comment on above: Performed By: #### C BC ####[facility] [address] [address]Dr. David Cannon Hemoglobin (Bld) [Mass/Vol] 14.3 g/dL Normal 12.0-16.0 [facility] Comment on above: Performed By: #### C BC ####[facility] [address] [place], [place] [address]Dr. David Cannon IG # 0.01 10e3/ul Normal 0.00-0.03 [facility] Comment on above: Performed By: #### C BC ####[facility] Ren[address] [place], [place] [address]Dr. David Cannon IG % 0.1 % Normal 0.0-0.5 [facility] Comment on above: Performed By: #### C BC ####[facility] [address] [place], [place] [address]Dr. Janellbraeden Cannon LYMPH # 2.7 103/ul Normal 1.2-3.8 [facility] Comment on above: Performed By: #### C BC ####[facility] [address] [place], [place] [address]Dr. David Cannon Lymphocytes/100 WBC (Bld) 37.0 % Normal 20.5-60.0 [facility] Comment on above: Performed By: #### C BC ####[facility] [address] [place], [place] [address]DrGerry Cannon MANUAL DIFF REQ NO Normal [facility] Comment on above: Performed By: #### C BC ####[facility] Rxrs[address] [place], [place] [address]Dr. David Cannon MCH (RBC) [Entitic mass] 31.4 pg Normal 26.7-34.0 [facility] Comment on above: Performed By: #### C BC ####[facility] [address] [address]Dr. David Cannon MCHC (RBC) [Mass/Vol] 32.2 g/dL Normal 29.9-35.2 [facility] Comment on above: Performed By: #### C BC ####[facility] [address] [address]Dr. David Davis MCV (RBC) [Entitic vol] 97.4 fL Normal 81.0-99.0 [facility] Comment on above: Performed By: #### C BC ####[facility] [address] [place], [place] [address]Dr. David Cannon MONO # 0.6 103/ul Normal 0.3-0.8 [facility] Comment on above: Performed By: #### C BC ####[facility] [address] [place], [place] [address]Dr. David Cannon Monocytes/100 WBC (Bld) 7.8 % Normal 1.7-12.0 [facility] Comment on above: Performed By: #### C BC ####[facility] Dloq[address] [place], [place] [address]Dr. David Davis NEUT # 3.9 103/ul Normal 1.4-6.5 [facility] Comment on above: Performed By: #### C BC ####[facility] [address] [place], [place] [address]Dr. David Cannon Neutrophils/100 WBC (Bld) 52.6 % Normal 43.0-75.0 [facility] Comment on above: Performed By: #### C BC ####[facility] [address] [place], [place] [address]DrGerry Cannon Platelet mean volume (Bld) [Entitic vol] 9.0 fL Critically low 9.5-13.5 [facility] Comment on above: Performed By: #### C BC ####[facility] [address] [place], [place] [address]Dr. David Cannon PLT 233 103/ul Normal 150-450 [facility] Comment on above: Performed By: #### C BC ####[facility] [address] [address]Dr. David Cannon RBC 4.56 106/ul Normal 4.20-5.40 [facility] Comment on above: Performed By: #### C BC ####[facility] [address] [address]Dr. David Cannon WBC 7.4 103/ul Normal 4.0-11.0 [facility] Comment on above: Performed By: #### C BC ####[facility] [address] [address]Dr. David Cannon CRPon 06-07-2022 CRP [Mass/Vol] mg/L Normal <=1.0 [facility] Comment on above: Performed By: #### C RP, CMP, BNP ####[facility] [address] [address]Dr. David Cannon CULTURE URINEon 06-07-2022 CULTURE URINE Culture Observations: LIGHT GROWTH OF MIXED GENITAL ANISHA. NO POTENTIAL PATHOGENS SEEN. Normal [facility] Comment on above: Performed By: #### U RCX ####[facility] [address] [address]Dr. David Cannon ER URINE PROFILEon 3 Bilirubin Ql (U) Negative Normal NEGATIVE [facility] Comment on above: Performed By: #### B NILSA, TSH #### [facility] [address] [place] [address] Dr. David Cannon Clarity (U) CLEAR Normal CLEAR [facility] Comment on above: Performed By: #### B MP, TSH #### [facility] [address] [address] [address] David Cannon Color (U) LT. YELLOW Normal YELLOW [facility] Comment on above: Performed By: #### B MP, TSH #### [facility] [address] [place] [address] Dr. David Cannon ERUAHD A micrscopic examination will be performed if indicated. Normal [facility] Comment on above: Performed By: #### B MP, TSH #### [facility] [address] [place] [address] Dr. David Cannon Glucose Ql (U) Negative Normal NEGATIVE [facility] Comment on above: Performed By: #### B MP, TSH #### [facility] [address] [address] [address] David Cannon Hemoglobin Ql (U) Negative Normal NEGATIVE [facility] Comment on above: Performed By: #### B MP, TSH #### [facility] [address] [place] [address] Dr. David Cannon Ketones Ql (U) Negative Normal NEGATIVE [facility] Comment on above: Performed By: #### B MP, TSH #### [facility] [address] [place] [address] Dr. David Cannon LEUKOCYTES SMALL Abnormal NEGATIVE [facility] Comment on above: Performed By: #### B MP, TSH #### [facility] [address] [place] [address] Dr. David Cannon Nitrite Ql (U) Negative Normal NEGATIVE [facility] Comment on above: Performed By: #### B MP, TSH #### [facility] [address] [place] [address] Dr. David Cannon pH (U) 6.0 [pH] Normal 5-9 [facility] Comment on above: Performed By: #### B MP, TSH #### [facility] [address] [place] [address] Dr. David Cannon SPEC GRAVITY 1.010 Normal 1.005-<=1.[address] [facility] Comment on above: Performed By: #### B MP, TSH #### [facility] [address] [place] [address] Dr. David Cannon UA PROTEIN Negative Normal NEGATIVE/ TRACE [facility] Comment on above: Performed By: #### B MP, TSH #### [facility] [address] [place] [address] Dr. David Cannon UR MICRO IND INDICATED Normal [facility] Comment on above: Performed By: #### B MP, TSH #### [facility] [address] [address] [address] David Cannon Urobilinogen Qn (U) 0.2 {Skip'U}/dL Normal 0.2 - 1. 0 [facility] Comment on above: Performed By: #### B MP, TSH #### [facility] [address] [address] [address] David Cannon PROF 14(COMP METB)on 023 Albumin [Mass/Vol] 4.3 g/dL Normal 3.4-5.0 [facility] Comment on above: Performed By: #### C RP, CMP, BNP ####[facility] [address] [address]Dr. David Cannon Albumin/Globulin [Mass ratio] 1.1 {ratio} Normal [facility] Comment on above: Performed By: #### C RP, CMP, BNP ####[facility] [address] [address]Dr. David Cannon ALP [Catalytic activity/Vol] 82 U/L Normal 46-116 [facility] Comment on above: Performed By: #### C RP, CMP, BNP ####[facility] [address] [address]Dr. David Cannon ALT [Catalytic activity/Vol] 21 U/L Normal 14-59 [facility] Comment on above: Performed By: #### C RP, CMP, BNP ####[facility] [address] [address]Dr. David Cannon Anion gap [Moles/Vol] 12.3 mmol/L Normal [facility] Comment on above: Performed By: #### C RP, CMP, BNP ####[facility] [address] [address]Dr. David Cannon AST [Catalytic activity/Vol] 15 U/L Normal 15-37 [facility] Comment on above: Performed By: #### C RP, CMP, BNP ####[facility] [address] [address]Dr. David Cannon Bilirubin [Mass/Vol] 0.2 mg/dL Normal 0.2-1.0 [facility] Comment on above: Performed By: #### C RP, CMP, BNP ####[facility] [address] [address]Dr. David Cannon Calcium [Mass/Vol] 9.2 mg/dL Normal 8.5-10.1 [facility] Comment on above: Performed By: #### C RP, CMP, BNP ####[facility] [address] [address]Dr. David Cannon Chloride [Moles/Vol] 104 mmol/L Normal 98-107 [facility] Comment on above: Performed By: #### C RP, CMP, BNP ####[facility] [address] [address]Dr. David Cannon CO2 [Moles/Vol] 31.2 mmol/L Normal 21.0-32.0 [facility] Comment on above: Performed By: #### C RP, CMP, BNP ####[facility] [address] [place], [place] [address]Dr. David Cannon Creatinine [Mass/Vol] 0.52 mg/dL Critically low 0.55-1.02 [facility] Comment on above: Performed By: #### C RP, CMP, BNP ####[facility] [address] [address]Dr. David Cannon EGFR-AF LIBYAN >60 Normal >=60 [facility] Comment on above: Performed By: #### C RP, CMP, BNP ####[facility] [address] [address]Dr. David Cannon EGFR-NON AF LIBYAN >60 Normal >=60 [facility] Comment on above: Performed By: #### C RP, CMP, BNP ####[facility] [address] [address]Dr. David Cannon Globulin (S) [Mass/Vol] 3.9 g/dL Normal T [facility] Comment on above: Performed By: #### C RP, CMP, BNP ####[facility] [address] [address]Dr. David Cannon Glucose [Mass/Vol] 79 mg/dL Normal 74-106 [facility] Comment on above: Performed By: #### C RP, CMP, BNP ####[facility] [address] [address]Dr. David Cannon Potassium [Moles/Vol] 3.5 mmol/L Normal 3.5-5.1 [facility] Comment on above: Performed By: #### C RP, CMP, BNP ####[facility] [address] [address]Dr. David Cannon Protein [Mass/Vol] 8.2 g/dL Normal 6.4-8.2 [facility] Comment on above: Performed By: #### C RP, CMP, BNP ####[facility] [address] [address]Dr. David Cannon Sodium [Moles/Vol] 144 mmol/L Normal 136-145 [facility] Comment on above: Performed By: #### C RP, CMP, BNP ####[facility] [address] [address]Dr. David Cannon Urea nitrogen [Mass/Vol] 16.0 mg/dL Normal 7.0-18.0 [facility] Comment on above: Performed By: #### C RP, CMP, BNP ####[facility] [address] [address]Dr. David Cannon Urea nitrogen/Creatinine [Mass ratio] 30.8 mg/mg Normal [facility] Comment on above: Performed By: #### C RP, CMP, BNP ####[facility] [address] [address]Dr. David Cannon PROTIMEon 06-07-2022 INR Coag (PPP) [Relative time] {INR} Normal [facility] Comment on above: Performed By: #### A NARF #### [facility] [address] [address] [address] David Cannon INR GUIDELINES SEE BELOW Normal [facility] Comment on above: Result Comment: SURY RED INR: 2.0 - 3.0 CONDITIONS NOT LISTED BELOW 2.5 - 3.5 FOR PROSTHETIC HEART VALVE REPLACEMENT 2.5 - 3.5 RECURRENT THROMBOSIS Performed By: #### A NARF #### [facility] [address] [place] [address] Dr. David Cannon PT Coag (PPP) [Time] 9.6 s Normal 9.0-11.6 [facility] Comment on above: Performed By: #### A NARF #### [facility] [address] [place] [address] Dr. David Cannon PTTon 06-07-2022 aPTT Coag (Bld) [Time] 25.6 s Normal 22.3-36.2 [facility] Comment on above: Performed By: #### A NARF #### [facility] [address] [place] [address] Dr. David Cannon [facility] 21 mm/hr Normal <=30 [facility] Comment on above: Performed By: #### S EDR ####[facility] [address] [address]Dr. David Cannon URINE MICROSCOPIC ONLYon BACTERIA SMALL Abnormal NONE SEEN [facility] Comment on above: Performed By: #### B NILSA, TSH #### [facility] [address] [place] [address] Dr. David Cannon Bacteria identified Cx Nom (U) INDICATED Normal [facility] Comment on above: Performed By: #### B NILSA, TSH #### [facility] [address] [place] [address] Dr. David Cannon CAST NONE SEEN Normal NONE SEEN [facility] Comment on above: Performed By: #### B NILSA, TSH #### [facility] [address] [place] [address] Dr. Davdi Cannon Crystals LM Nom (Urine sed) NONE SEEN Normal NONE SEEN [facility] Comment on above: Performed By: #### B NILSA, TSH #### [facility] [address] [place] [address] Dr. David Cannon Epithelial cells LM Ql (Urine sed) FEW Abnormal NONE SEEN /RARE [facility] Comment on above: Performed By: #### B MP, TSH #### [facility] [address] [place] [address] Dr. David Cannon MUCOUS NONE SEEN Normal NONE SEEN [facility] Comment on above: Performed By: #### B MP, TSH #### [facility] [address] [place] [address] Dr. David Cannon RBC 0-2 Normal 0-2 [facility] Comment on above: Performed By: #### B MP, TSH #### [facility] [address] [place] [address] Dr. David Cannon WBC 5-[address] [facility] Comment on above: Performed By: #### B MP, TSH #### [facility] [address] [place] [address] Dr. David Cannon NISHI EIA W/REFLEX 5 BIOMARKER Son 05-30-2022 NISHI Direct Negative Normal Negative [facility] Comment on above: Performed By: #### A NARF #### [facility] [address] [place] [address] Dr. David Cannon C-Reactive Proteinon 023 C-Reactive Protein 0.3 mg/dL <=1.0 mg/dL [employer] Other CBC AUTO DIFFon 05-29-2022 BASO # 0.0 103/ul Normal 0.0-0.1 [facility] Comment on above: Performed By: #### A NARF #### [facility] [address] [place] [address] Dr. David Cannon Basophils/100 WBC (Bld) 0.3 % Normal 0.2-2.0 T [facility] Comment on above: Performed By: #### A NARF #### [facility] [address] [place] [address] Dr. David Cannon EO # 0.1 103/ul Normal 0.0-0.7 [facility] Comment on above: Performed By: #### A NARF #### [facility] [address] [place] [address] Dr. David Cannon Eosinophils/100 WBC (Bld) 1.7 % Normal 0.9-7.0 [facility] Comment on above: Performed By: #### A NARF #### [facility] [address] [place] [address] Dr. David Cannon Erythrocyte distribution width (RBC) [Ratio] 12.0 % Normal 11.0-15.0 [facility] Comment on above: Performed By: #### A NARF #### [facility] [address] [place] [address] Dr. David Cannon Hematocrit (Bld) [Volume fraction] 43.9 % Normal 36.0-48.0 [facility] Comment on above: Performed By: #### A NARF #### [facility] [address] [place] [address] Dr. David Cannon Hemoglobin (Bld) [Mass/Vol] 14.0 g/dL Normal 12.0-16.0 [facility] Comment on above: Performed By: #### A NARF #### [facility] [address] [place] [address] Dr. David Cannon IG # 0.02 10e3/ul Normal 0.00-0.03 [facility] Comment on above: Performed By: #### A NARF #### [facility] [address] [place] [address] Dr. David Cannon IG % 0.3 % Normal 0.0-0.5 [facility] Comment on above: Performed By: #### A NARF #### [facility] [address] [place] [address] Dr. David Cannon LYMPH # 2.0 103/ul Normal 1.2-3.8 [facility] Comment on above: Performed By: #### A NARF #### [facility] [address] [place] [address] Dr. David Cannon Lymphocytes/100 WBC (Bld) 31.7 % Normal 20.5-60.0 [facility] Comment on above: Performed By: #### A NARF #### [facility] [address] [address] [address] David Cannon MANUAL DIFF REQ NO Normal [facility] Comment on above: Performed By: #### A NARF #### [facility] [address] [place] [address] Dr. David Cannon MCH (RBC) [Entitic mass] 30.8 pg Normal 26.7-34.0 [facility] Comment on above: Performed By: #### A NARF #### [facility] [address] [place] [address] Dr. David Cannon MCHC (RBC) [Mass/Vol] 31.9 g/dL Normal 29.9-35.2 [facility] Comment on above: Performed By: #### A NARF #### [facility] [address] [place] [address] Dr. David Cannon MCV (RBC) [Entitic vol] 96.5 fL Normal 81.0-99.0 [facility] Comment on above: Performed By: #### A NARF #### [facility] [address] [place] [address] Dr. David Cannon MONO # 0.4 103/ul Normal 0.3-0.8 [facility] Comment on above: Performed By: #### A NARF #### [facility] [address] [place] [address] Dr. David Cannon Monocytes/100 WBC (Bld) 6.2 % Normal 1.7-12.0 [facility] Comment on above: Performed By: #### A NARF #### [facility] [address] [place] [address] Dr. David Cannon NEUT # 3.9 103/ul Normal 1.4-6.5 [facility] Comment on above: Performed By: #### A NARF #### [facility] [address] [place] [address] Dr. David Cannon Neutrophils/100 WBC (Bld) 59.8 % Normal 43.0-75.0 [facility] Comment on above: Performed By: #### A NARF #### [facility] [address] [address] [address] David Cannon Platelet mean volume (Bld) [Entitic vol] 8.7 fL Critically low 9.5-13.5 [facility] Comment on above: Performed By: #### A NARF #### [facility] [address] [address] [address] Davdi Cannon PLT 263 103/ul Normal 150-450 [facility] Comment on above: Performed By: #### A NARF #### [facility] [address] [address] [address] David Cannon RBC 4.55 106/ul Normal 4.20-5.40 [facility] Comment on above: Performed By: #### A NARF #### [facility] [address] [address] [address] David Cannon WBC 6.4 103/ul Normal 4.0-11.0 [facility] Comment on above: Performed By: #### A NARF #### [facility] [address] [address] [address] David Cannon CRPon 05-29-2022 CRP 0.3 mg/dL Normal <=1.0 [facility] Comment on above: Performed By: #### C RP, CMP ####[facility] [address] [address]Dr. David Cannon Complete Blood Count and Dif jin 05-29-2022 Anisocytosis Ql (Bld) Nor [facility] [employer] Other Basophilic stippling LM Ql (Bld) [facility] [employer] Other RBC morphology finding Nom (Bld) [facility] [employer] Other Complete Blood Count and Diff [employer] [facility] [employer] Other Comprehensive Metabolic Pane sincere 05-29-2022 Albumin/Globulin [Mass ratio] 0.9 {ratio} Normal [facility] [employer] Other Comment on above: Performed By: #### A NARF #### [facility] [address] [address] [address] David Cannon ALP [Catalytic activity/Vol] 79 U/L Normal 46-116 [facility] [employer] Other Comment on above: Performed By: #### A NARF #### [facility] [address] [place] [address] Dr. David Cannon ALT [Catalytic activity/Vol] 20 U/L Normal 14-59 [facility] [employer] Other Comment on above: Performed By: #### A NARF #### [facility] [address] [place] [address] Dr. David Cannon Anion gap [Moles/Vol] 12.7 mmol/L [facility] [employer] Other Comment on above: Performed By: #### A NARF #### [facility] [address] [place] [address] Dr. David Cannon AST [Catalytic activity/Vol] 20 U/L Normal 15-37 [facility] [employer] Other Comment on above: Performed By: #### A NARF #### [facility] [address] [place] [address] Dr. David Cannon Chloride [Moles/Vol] 102 mmol/L Normal 98-107 [facility] [employer] Other Comment on above: Performed By: #### A NARF #### [facility] [address] [place] [address] Dr. David Cannon Urea nitrogen/Creatinine [Mass ratio] 29.0 mg/mg Normal [facility] [email or web address] Other Comment on above: Performed By: #### A NARF #### [facility] [address] [place] [address] Dr. David Cannon Albumin [Mass/Vol] 3.068831 g/dL 3.4-5.0 g/dL [employer] Other Calcium [Mass/Vol] 9.6338353 mg/dL 8.5-10 .1 mg/dL [employer] Other CO2 [Moles/Vol] 31.97709205 mmol/L 21.0-3 2.0 mmol/L [employer] Other Creatinine [Mass/Vol] 0.92801892 mg/dL 0. 55-1.02 mg/dL [employer] Other Potassium [Moles/Vol] 4.34824518 mmol/L 3 .5-5.1 mmol/L [employer] Other Protein [Mass/Vol] 8.844958 g/dL 6.4-8.2 g/dL [employer] Other Urea nitrogen [Mass/Vol] 18.4185867 mg/dL 7.0-18.0 mg/dL [employer] Other Comprehensive Metabolic Panel see note [employer] Other Comprehensive Metabolic Panel 142 mmol/L 136-145 mmol/L [employer] Other Comprehensive Metabolic Panel 102 mg/dL 74-106 mg/dL [employer] Other Comprehensive Metabolic Panel >60 mL/min/1.73m2 >=60 mL/min/1.73 m2 [employer] Other Comprehensive Metabolic Panel 0.2 mg/dL 0.2-1.0 mg/dL [employer] Other Comprehensive Metabolic Panel 4.3 g/dL [employer] Other PROF 14(COMP METB)on 023 Albumin [Mass/Vol] 3.8 g/dL Normal 3.4-5.0 [facility] Comment on above: Performed By: #### A NARF #### [facility] [address] [address] [address] David Cannon Bilirubin [Mass/Vol] 0.2 mg/dL Normal 0.2-1.0 [facility] Comment on above: Performed By: #### A NARF #### [facility] [address] [address] [address] David Cannon Calcium [Mass/Vol] 9.9 mg/dL Normal 8.5-10.1 [facility] Comment on above: Performed By: #### A NARF #### [facility] [address] [address] [address] David Cannon CO2 [Moles/Vol] 31.4 mmol/L Normal 21.0-32.0 [facility] Comment on above: Performed By: #### A NARF #### [facility] [address] [address] [address] David Cannon Creatinine [Mass/Vol] 0.62 mg/dL Normal 0.55-1.02 [facility] Comment on above: Performed By: #### A NARF #### [facility] [address] [place] [address] Dr. David Cannon EGFR-AF LIBYAN >60 Normal >=60 [facility] Comment on above: Performed By: #### A NARF #### [facility] [address] [place] [address] Dr. David Cannon EGFR-NON AF LIBYAN >60 Normal >=60 [facility] Comment on above: Performed By: #### A NARF #### [facility] [address] [address] [address] David Cannon Globulin (S) [Mass/Vol] 4.3 g/dL Normal [facility] Comment on above: Performed By: #### A NARF #### [facility] [address] [place] [address] Dr. David Cannon Glucose [Mass/Vol] 102 mg/dL Normal 74-106 [facility] Comment on above: Performed By: #### A NARF #### [facility] [address] [place] [address] Dr. David Cannon Potassium [Moles/Vol] 4.1 mmol/L Normal 3.5-5.1 [facility] Comment on above: Performed By: #### A NARF #### [facility] [address] [place] [address] Dr. David Cannon Protein [Mass/Vol] 8.1 g/dL Normal 6.4-8.2 [facility] Comment on above: Performed By: #### A NARF #### [facility] [address] [address] [address] David Cannon Sodium [Moles/Vol] 142 mmol/L Normal 136-145 [facility] Comment on above: Performed By: #### A NARF #### [facility] [address] [address] [address] David Cannon Urea nitrogen [Mass/Vol] 18.0 mg/dL Normal 7.0-18.0 [facility] Comment on above: Performed By: #### A NARF #### [facility] [address] [address] [address] David Cannon UA RANDOM W/MICROSCOPICon AMORPHOUS CRYSTALS RARE Normal [facility] Comment on above: Performed By: #### B MP, TSH #### [facility] [address] [place] [address] Dr. David Cannon BACTERIA NONE SEEN Normal NONE SEEN [facility] Comment on above: Performed By: #### B MP, TSH #### [facility] [address] [place] [address] Dr. David Cannon Bilirubin Ql (U) Negative Normal NEGATIVE [employer] Other Comment on above: Performed By: #### B MP, TSH #### [facility] [address] [place] [address] Dr. David Cannon CAST NONE SEEN Normal NONE SEEN [facility] Comment on above: Performed By: #### B MP, TSH #### [facility] [address] [place] [address] Dr. David Cannon Clarity (U) CLEAR Normal CLEAR [employer] Other Comment on above: Performed By: #### B MP, TSH #### [facility] [address] [place] [address] Dr. David Cannon Color (U) LT. YELLOW Normal YELLOW [employer] Other Comment on above: Performed By: #### B MP, TSH #### [facility] [address] [address] [address] David Cannon Crystals LM Nom (Urine sed) SEEN Abnormal NONE SEEN [facility] Comment on above: Performed By: #### B MP, TSH #### [facility] [address] [address] [address] David Cannon Epithelial cells LM Ql (Urine sed) RARE Normal NONE SEEN /RARE [facility] Comment on above: Performed By: #### B MP, TSH #### [facility] [address] [address] [address] David Cannon Glucose Ql (U) Negative Normal NEGATIVE [employer] Other Comment on above: Performed By: #### B MP, TSH #### [facility] [address] [place] [address] Dr. David Cannon Hemoglobin Ql (U) Negative Normal NEGATIVE [employer] Other Comment on above: Performed By: #### B MP, TSH #### [facility] [address] [place] [address] Dr. David Cannon Ketones Ql (U) Negative Normal NEGATIVE [employer] Other Comment on above: Performed By: #### B MP, TSH #### [facility] [address] [place] [address] Dr. David Cannon LEUKOCYTES Negative Normal NEGATIVE [facility] Comment on above: Performed By: #### B MP, TSH #### [facility] [address] [address] [address] David Cannon MUCOUS NONE SEEN Normal NONE SEEN [facility] Comment on above: Performed By: #### B MP, TSH #### [facility] [address] [address] [address] David Cannon Nitrite Ql (U) Negative Normal NEGATIVE [employer] Other Comment on above: Performed By: #### B MP, TSH #### [facility] [address] [address] [address] David Cannon pH (U) 7.0 [pH] Normal 5-9 [employer] Other Comment on above: Performed By: #### B MP, TSH #### [facility] [address] [place] [address] Dr. David Cannon RBC 0-2 Normal 0-2 [facility] Comment on above: Performed By: #### B MP, TSH #### [facility] [address] [place] [address] Dr. David Cannon SPEC GRAVITY 1.020 Normal 1.005-<=1.[address] [place] [address] Comment on above: Performed By: #### B MP, TSH #### [facility] [address] [place] [address] Dr. David Cannon UA PROTEIN Negative Normal NEGATIVE/ TRACE [facility] Comment on above: Performed By: #### B MP, TSH #### [facility] [address] [place] [address] Dr. David Cannon Urobilinogen Qn (U) 0.2 {Skip'U}/dL Normal 0.2 - 1. 0 [facility] Comment on above: Performed By: #### B MP, TSH #### [facility] [address] [place] [address] Dr. David Cannon WBC NONE SEEN Normal NONE SEEN [facility] Comment on above: Performed By: #### B MP, TSH #### [facility] [address] [place] [address] Dr. David Cannon Crystals LM Nom (Urine sed) SEEN #/HPF Abnormal NONE SEEN #/HPF [employer] Other Epithelial cells LM Ql (Urine sed) RARE #/LPF NONE SEEN /RARE #/LPF [employer] Other UA RANDOM W/MICROSCOPIC 1.020 1.00 5-<=1.0 25 [employer] Other UA RANDOM W/MICROSCOPIC Negative NEGATIVE [employer] Other UA RANDOM W/MICROSCOPIC 0.2 EU/dl 0.2 - 1.0 EU/dl [employer] Other UA RANDOM W/MICROSCOPIC NONE SEEN #/HPF N ONE SEEN #/HPF [employer] Other UA RANDOM W/MICROSCOPIC 0-2 #/HPF 0-2 #/HPF [employer] Other UA RANDOM W/MICROSCOPIC NONE SEEN #/LPF N ONE SEEN #/LPF [employer] Other UA RANDOM W/MICROSCOPIC NONE SEEN NONE SEEN [employer] Other UA RANDOM W/MICROSCOPIC RARE N [employer] Other CULTURE URINEon 04-13-2022 CULTURE URINE Isolate 1 Escherichia coli >100,000 cfu/ ml of ORGANISM 1 Escherichia coli ANTIBIOTIC M.I.C RX STATUS Ampicillin >=32 R F Ampicillin/Sulbactam >=32 R F Piperacillin/Tazobac mena <=4 S F Cefazolin <=4 S F Ceftazidime <=1 S F Ceftriaxone <=1 S F Ertapenem <=0.5 S F Imipenem <=0.25 S F Amikacin <=2 S F Gentamicin <=1 S F Tobramycin <=1 S F Ciprofloxacin <=0.25 S F Levofloxacin <=0.12 S F Nitrofurantoin <=16 S F Trimethoprim/Sulfame thoxazole <=20 S F Normal [facility] Comment on above: Performed By: #### U RCX ####[facility] [id number] [address] David Cannon VAGINITIS/VAGINOSIS DNA PROB Hugo 04-12-2022 Susan species Negative Normal Negative [facility] Comment on above: Performed By: #### B MP, TSH #### [facility] [address] [address] [address] David Cannon Gardnerella vaginalis Negative Normal Negative [facility] Comment on above: Performed By: #### B MP, TSH #### [facility] [address] [address] [address] David Cannon Trichomonas vaginalis Negative Normal Negative [facility] Comment on above: Performed By: #### B MP, TSH #### [facility] [address] [place] [address] Dr. David Cannon BNPon 02-24-2022 Natriuretic peptide B (Bld) [Mass/Vol] 173.0 pg/mL Normal <=900.0 [facility] Comment on above: Performed By: #### B MP, TSH #### [facility] [address] [place] [address] Dr. David Cannon CARDIAC WAI 3-6on 2 CK [Catalytic activity/Vol] 47 U/L Normal 26-192 [facility] Comment on above: Performed By: #### B MP, TSH #### [facility] [address] [place] [address] Dr. David Cannon CK.MB [Mass/Vol] ng/mL Normal <=3.60 [facility] Comment on above: Performed By: #### B MP, TSH #### [facility] [address] [place] [address] Dr. David Cannon HSTROP 7.0 pg/mL Normal 4.0-51.3 [facility] Comment on above: Result Comment: CUT- OFF POINTS HAVE BEEN ESTABLISHED BASED ON THE FOURTH UNIVERSAL DEFINITIONS OF MYOCARDIAL INFARCTION. THE UPPER REFERENCE LIMIT (URL) OF TROPONIN, DEFINED THE 99TH PERCENTILE OF cTnI DISTRIBUTION IN A REFERENCE POPULATION, HAS BEEN CONFIRMED THE DECISION THRESHOLD FOR CT DIAGNOSIS. Performed By: #### B MP, TSH #### [facility] [address] [place] [address] Dr. David Cannon CK [Catalytic activity/Vol] 44 U/L Normal 26-192 [facility] Comment on above: Performed By: #### B MP, TSH #### [facility] [address] [place] [address] Dr. David Cannon CK.MB [Mass/Vol] ng/mL Normal <=3.60 [facility] Comment on above: Performed By: #### B MP, TSH #### [facility] [address] [place] [address] Dr. Davdi Cannon HSTROP 5.3 pg/mL Normal 4.0-51.3 [facility] Comment on above: Result Comment: CUT- OFF POINTS HAVE BEEN ESTABLISHED BASED ON THE FOURTH UNIVERSAL DEFINITIONS OF MYOCARDIAL INFARCTION. THE UPPER REFERENCE LIMIT (URL) OF TROPONIN, DEFINED THE 99TH PERCENTILE OF cTnI DISTRIBUTION IN A REFERENCE POPULATION, HAS BEEN CONFIRMED THE DECISION THRESHOLD FOR CT DIAGNOSIS. Performed By: #### B MP, TSH #### [facility] [address] [place] [address] Dr. David Cannon CBC AUTO DIFFon 02-24-2022 BASO # 0.0 103/ul Normal 0.0-0.1 [facility] Comment on above: Performed By: #### C BC #### [facility] [address] [place] [address] Dr. David Cannon Basophils/100 WBC (Bld) 0.3 % Normal 0.2-2.0 [facility] Comment on above: Performed By: #### C BC #### [facility] [address] [place] [address] Dr. David Cannon EO # 0.2 103/ul Normal 0.0-0.7 [facility] Comment on above: Performed By: #### C BC #### [facility] [address] [place] [address] Dr. David Cannon Eosinophils/100 WBC (Bld) 2.6 % Normal 0.9-7.0 [facility] Comment on above: Performed By: #### C BC #### [facility] [address] [place] [address] Dr. David Cannon Erythrocyte distribution width (RBC) [Ratio] 12.1 % Normal 11.0-15.0 [facility] Comment on above: Performed By: #### C BC #### [facility] [address] [place] [address] Dr. David Cannon Hematocrit (Bld) [Volume fraction] 39.9 % Normal 36.0-48.0 [facility] Comment on above: Performed By: #### C BC #### [facility] [address] [place] [address] Dr. David Cannon Hemoglobin (Bld) [Mass/Vol] 13.2 g/dL Normal 12.0-16.0 [facility] Comment on above: Performed By: #### C BC #### [facility] [address] [place] [address] Dr. David Cannon IG # 0.01 10e3/ul Normal 0.00-0.03 [facility] Comment on above: Performed By: #### C BC #### [facility] [address] [place] [address] Dr. David Cannon IG % 0.2 % Normal 0.0-0.5 [facility] Comment on above: Performed By: #### C BC #### [facility] [address] [place] [address] Dr. David Cannon LYMPH # 2.8 103/ul Normal 1.2-3.8 [facility] Comment on above: Performed By: #### C BC #### [facility] [address] [place] [address] Dr. David Cannon Lymphocytes/100 WBC (Bld) 48.1 % Normal 20.5-60.0 [facility] Comment on above: Performed By: #### C BC #### [facility] [address] [place] [address] Dr. David Cannon MANUAL DIFF REQ NO Normal [facility] Comment on above: Performed By: #### C BC #### [facility] [address] [place] [address] Dr. David Cannon MCH (RBC) [Entitic mass] 31.6 pg Normal 26.7-34.0 [facility] Comment on above: Performed By: #### C BC #### [facility] [address] [place] [address] Dr. David Cannon MCHC (RBC) [Mass/Vol] 33.1 g/dL Normal 29.9-35.2 [facility] Comment on above: Performed By: #### C BC #### [facility] [address] [place] [address] Dr. David Cannon MCV (RBC) [Entitic vol] 95.5 fL Normal 81.0-99.0 [facility] Comment on above: Performed By: #### C BC #### [facility] [address] [address] [address] David Cannon MONO # 0.4 103/ul Normal 0.3-0.8 [facility] Comment on above: Performed By: #### C BC #### [facility] [address] [address] [address] David Cannon Monocytes/100 WBC (Bld) 6.1 % Normal 1.7-12.0 [facility] Comment on above: Performed By: #### C BC #### [facility] [address] [place] [address] Dr. David Cannon NEUT # 2.5 103/ul Normal 1.4-6.5 [facility] Comment on above: Performed By: #### C BC #### [facility] [address] [place] [address] Dr. David Cannon Neutrophils/100 WBC (Bld) 42.7 % Critically low 43.0-75.0 [facility] Comment on above: Performed By: #### C BC #### [facility] [address] [place] [address] Dr. David Cannon Platelet mean volume (Bld) [Entitic vol] 8.7 fL Critically low 9.5-13.5 [facility] Comment on above: Performed By: #### C BC #### [facility] [address] [place] [address] Dr. David Cannon PLT 166 103/ul Normal 150-450 [facility] Comment on above: Performed By: #### C BC #### [facility] [address] [place] [address] Dr. David Cannon RBC 4.18 106/ul Critically low 4.20-5.40 [facility] Comment on above: Performed By: #### C BC #### [facility] [address] [place] [address] Dr. David Cannon WBC 5.7 103/ul Normal 4.0-11.0 [facility] Comment on above: Performed By: #### C BC #### [facility] [address] [address] [address] David Cannon PROF 14(COMP METB)on 022 Albumin [Mass/Vol] 3.4 g/dL Normal 3.4-5.0 [facility] Comment on above: Performed By: #### B MP, TSH #### [facility] [address] [place] [address] Dr. David Cannon Albumin/Globulin [Mass ratio] 1.2 {ratio} Normal [facility] Comment on above: Performed By: #### B MP, TSH #### [facility] [address] [place] [address] Dr. David Cannon ALP [Catalytic activity/Vol] 60 U/L Normal 46-116 [facility] Comment on above: Performed By: #### B MP, TSH #### [facility] [address] [place] [address] Dr. David Cannon ALT [Catalytic activity/Vol] 16 U/L Normal 14-59 [facility] Comment on above: Performed By: #### B MP, TSH #### [facility] [address] [place] [address] Dr. David Cannon Anion gap [Moles/Vol] 10.5 mmol/L Normal [facility] Comment on above: Performed By: #### B MP, TSH #### [facility] [address] [place] [address] Dr. David Cannon AST [Catalytic activity/Vol] 17 U/L Normal 15-37 [facility] Comment on above: Performed By: #### B MP, TSH #### [facility] [address] [place] [address] Dr. David Cannon Bilirubin [Mass/Vol] 0.4 mg/dL Normal 0.2-1.0 [facility] Comment on above: Performed By: #### B MP, TSH #### [facility] [address] [place] [address] Dr. David Cannon Calcium [Mass/Vol] 8.8 mg/dL Normal 8.5-10.1 [facility] Comment on above: Performed By: #### B MP, TSH #### [facility] [address] [address] [address] David Cannon Chloride [Moles/Vol] 106 mmol/L Normal 98-107 [facility] Comment on above: Performed By: #### B MP, TSH #### [facility] [address] [address] [address] David Cannon CO2 [Moles/Vol] 28.4 mmol/L Normal 21.0-32.0 [facility] Comment on above: Performed By: #### B MP, TSH #### [facility] [address] [address] [address] David Cannon Creatinine [Mass/Vol] 0.61 mg/dL Normal 0.55-1.02 [facility] Comment on above: Performed By: #### B NILSA, TSH #### [facility] [address] [place] [address] Dr. David Cannon EGFR-AF LIBYAN >60 Normal >=60 [facility] Comment on above: Performed By: #### B NILSA, TSH #### [facility] [address] [address] [address] Daivd Cannon EGFR-NON AF LIBYAN >60 Normal >=60 [facility] Comment on above: Performed By: #### B NILSA, TSH #### [facility] [address] [place] [address] Dr. David Cannon Globulin (S) [Mass/Vol] 2.9 g/dL Normal [facility] Comment on above: Performed By: #### B NILSA, TSH #### [facility] [address] [place] [address] Dr. David Cannon Glucose [Mass/Vol] 79 mg/dL Normal 74-106 [facility] Comment on above: Performed By: #### B MP, TSH #### [facility] [address] [place] [address] Dr. David Cannon Potassium [Moles/Vol] 3.9 mmol/L Normal 3.5-5.1 [facility] Comment on above: Performed By: #### B NILSA, TSH #### [facility] [address] [place] [address] Dr. David Cannon Protein [Mass/Vol] 6.3 g/dL Critically low 6.4-8.2 [facility] Comment on above: Performed By: #### B MP, TSH #### [facility] [address] [place] [address] Dr. David Cannon Sodium [Moles/Vol] 141 mmol/L Normal 136-145 [facility] Comment on above: Performed By: #### B MP, TSH #### [facility] [address] [place] [address] Dr. David Cannon Urea nitrogen [Mass/Vol] 8.0 mg/dL Normal 7.0-18.0 [facility] Comment on above: Performed By: #### B MP, TSH #### [facility] [address] [place] [address] Dr. David Cannon Urea nitrogen/Creatinine [Mass ratio] 13.1 mg/mg Normal [facility] Comment on above: Performed By: #### B NILSA, TSH #### [facility] [address] [place] [address] Dr. David Cannon BNPon 02-23-2022 Natriuretic peptide B (Bld) [Mass/Vol] 124.0 pg/mL Normal <=900.0 [facility] Comment on above: Performed By: #### A NARF #### [facility] [address] [place] [address] Dr. David Cannon CARDIAC WAI 3-6on 2 CK [Catalytic activity/Vol] 44 U/L Normal 26-192 [facility] Comment on above: Performed By: #### B MP, TSH #### [facility] [address] [place] [address] Dr. David Cannon CK.MB [Mass/Vol] ng/mL Normal <=3.60 [facility] Comment on above: Result Comment: Prev iously reported as: 0.30 On 02/23/2022 20:39 By JAW Performed By: #### B MP, TSH #### [facility] [address] [place] [address] Dr. David Cannon HSTROP 6.1 pg/mL Normal 4.0-51.3 [facility] Comment on above: Result Comment: CUT- OFF POINTS HAVE BEEN ESTABLISHED BASED ON THE FOURTH UNIVERSAL DEFINITIONS OF MYOCARDIAL INFARCTION. THE UPPER REFERENCE LIMIT (URL) OF TROPONIN, DEFINED THE 99TH PERCENTILE OF cTnI DISTRIBUTION IN A REFERENCE POPULATION, HAS BEEN CONFIRMED THE DECISION THRESHOLD FOR CT DIAGNOSIS. Performed By: #### B MP, TSH #### [facility] [address] [place] [address] Dr. David Cannon CK [Catalytic activity/Vol] 45 U/L Normal 26-192 [facility] Comment on above: Performed By: #### C MREP ####[facility] [id number] [address]Dr. David Cannon CK.MB [Mass/Vol] ng/mL Normal <=3.60 [facility] Comment on above: Performed By: #### C MREP ####[facility] [id number] [address]Dr. David Cannon HSTROP 5.7 pg/mL Normal 4.0-51.3 [facility] Comment on above: Result Comment: CUT- OFF POINTS HAVE BEEN ESTABLISHED BASED ON THE FOURTH UNIVERSAL DEFINITIONS OF MYOCARDIAL INFARCTION. THE UPPER REFERENCE LIMIT (URL) OF TROPONIN, DEFINED THE 99TH PERCENTILE OF cTnI DISTRIBUTION IN A REFERENCE POPULATION, HAS BEEN CONFIRMED THE DECISION THRESHOLD FOR CT DIAGNOSIS. Performed By: #### C MREP ####[facility] [address] [address]Dr. David Cannon CBC AUTO DIFFon 02-23-2022 BASO # 0.0 103/ul Normal 0.0-0.1 [facility] Comment on above: Performed By: #### B MP, TSH #### [facility] [address] [place] [address] Dr. David Cannon Basophils/100 WBC (Bld) 0.7 % Normal 0.2-2.0 [facility] Comment on above: Performed By: #### B MP, TSH #### [facility] [address] [place] [address] Dr. David Cannon EO # 0.1 103/ul Normal 0.0-0.7 [facility] Comment on above: Performed By: #### B NILSA, TSH #### [facility] [address] [place] [address] Dr. David Cannon Eosinophils/100 WBC (Bld) 1.1 % Normal 0.9-7.0 [facility] Comment on above: Performed By: #### B NILSA, TSH #### [facility] [address] [place] [address] Dr. David Cannon Erythrocyte distribution width (RBC) [Ratio] 12.2 % Normal 11.0-15.0 [facility] Comment on above: Performed By: #### B NILSA, TSH #### [facility] [address] [place] [address] Dr. David Cannon Hematocrit (Bld) [Volume fraction] 43.4 % Normal 36.0-48.0 [facility] Comment on above: Performed By: #### B NILSA, TSH #### [facility] [address] [place] [address] Dr. David Cannon Hemoglobin (Bld) [Mass/Vol] 14.4 g/dL Normal 12.0-16.0 [facility] Comment on above: Performed By: #### B NILSA, TSH #### [facility] [address] [place] [address] Dr. David Cannon IG # 0.01 10e3/ul Normal 0.00-0.03 [facility] Comment on above: Performed By: #### B NILSA, TSH #### [facility] [address] [place] [address] Dr. David Cannon IG % 0.2 % Normal 0.0-0.5 [facility] Comment on above: Performed By: #### B NILSA, TSH #### [facility] [address] [place] [address] Dr. David Cannon LYMPH # 1.5 103/ul Normal 1.2-3.8 [facility] Comment on above: Performed By: #### B NILSA, TSH #### [facility] [address] [place] [address] Dr. David Cannon Lymphocytes/100 WBC (Bld) 32.7 % Normal 20.5-60.0 [facility] Comment on above: Performed By: #### B MP, TSH #### [facility] [address] [place] [address] Dr. David Cannon MANUAL DIFF REQ NO Normal [facility] Comment on above: Performed By: #### B MP, TSH #### [facility] [address] [place] [address] Dr. David Cannon MCH (RBC) [Entitic mass] 31.4 pg Normal 26.7-34.0 [facility] Comment on above: Performed By: #### B MP, TSH #### [facility] [address] [place] [address] Dr. David Cannon MCHC (RBC) [Mass/Vol] 33.2 g/dL Normal 29.9-35.2 [facility] Comment on above: Performed By: #### B MP, TSH #### [facility] [address] [place] [address] Dr. David Cannon MCV (RBC) [Entitic vol] 94.8 fL Normal 81.0-99.0 [facility] Comment on above: Performed By: #### B MP, TSH #### [facility] [address] [place] [address] Dr. David Cannon MONO # 0.3 103/ul Normal 0.3-0.8 [facility] Comment on above: Performed By: #### B MP, TSH #### [facility] [address] [place] [address] Dr. David Cannon Monocytes/100 WBC (Bld) 5.9 % Normal 1.7-12.0 [facility] Comment on above: Performed By: #### B MP, TSH #### [facility] [address] [place] [address] Dr. David Cannon NEUT # 2.6 103/ul Normal 1.4-6.5 [facility] Comment on above: Performed By: #### B MP, TSH #### [facility] [address] [place] [address] Dr. David Cannon Neutrophils/100 WBC (Bld) 59.4 % Normal 43.0-75.0 [facility] Comment on above: Performed By: #### B MP, TSH #### [facility] [address] [place] [address] Dr. David Cannon Platelet mean volume (Bld) [Entitic vol] 8.6 fL Critically low 9.5-13.5 [facility] Comment on above: Performed By: #### B MP, TSH #### [facility] [address] [place] [address] Dr. David Cannon PLT 200 103/ul Normal 150-450 [facility] Comment on above: Performed By: #### B MP, TSH #### [facility] [address] [place] [address] Dr. David Cannon RBC 4.58 106/ul Normal 4.20-5.40 [facility] Comment on above: Performed By: #### B MP, TSH #### [facility] [address] [place] [address] Dr. David Cannon WBC 4.4 103/ul Normal 4.0-11.0 [facility] Comment on above: Performed By: #### B MP, TSH #### [facility] [address] [place] [address] Dr. David Cannon Covid-19 PCR ([facility])on 02-09 SARS-CoV-2 (COVID-19) RNA JOSH+probe Ql (Unsp spec) Not detected Normal NOT DETECTED [facility] Comment on above: Result Comment: When diagnostic [...] for this test is supported by the [place] of Health and Human Service's declaration that [...] be used). Performed By: #### [facility] ####[facility] [address] [address]Dr. David Cannon LIPASEon 02-23-2022 Lipase [Catalytic activity/Vol] 85.0 U/L Normal 73.0-393.0 [facility] Comment on above: Performed By: #### A NARF #### [facility] [address] [place] [address] Dr. David Cannon PROF 14(COMP METB)on 022 Albumin [Mass/Vol] 4.2 g/dL Normal 3.4-5.0 [facility] Comment on above: Performed By: #### A NARF #### [facility] [address] [place] [address] Dr. David Cannon Albumin/Globulin [Mass ratio] 1.2 {ratio} Normal [facility] Comment on above: Performed By: #### A NARF #### [facility] [address] [place] [address] Dr. David Cannon ALP [Catalytic activity/Vol] 67 U/L Normal 46-116 [facility] Comment on above: Performed By: #### A NARF #### [facility] [address] [place] [address] Dr. David Cannon ALT [Catalytic activity/Vol] 19 U/L Normal 14-59 [facility] Comment on above: Performed By: #### A NARF #### [facility] [address] [place] [address] Dr. David Cannon Anion gap [Moles/Vol] 15.1 mmol/L Normal [facility] Comment on above: Performed By: #### A NARF #### [facility] [address] [place] [address] Dr. David Cannon AST [Catalytic activity/Vol] 18 U/L Normal 15-37 [facility] Comment on above: Performed By: #### A NARF #### [facility] [address] [place] [address] Dr. David Cannon Bilirubin [Mass/Vol] 0.3 mg/dL Normal 0.2-1.0 [facility] Comment on above: Performed By: #### A NARF #### [facility] [address] [place] [address] Dr. David Cannon Calcium [Mass/Vol] 9.7 mg/dL Normal 8.5-10.1 [facility] Comment on above: Performed By: #### A NARF #### [facility] [address] [place] [address] Dr. David Cannon Chloride [Moles/Vol] 103 mmol/L Normal 98-107 [facility] Comment on above: Performed By: #### A NARF #### [facility] [address] [place] [address] Dr. David Cannon CO2 [Moles/Vol] 29.0 mmol/L Normal 21.0-32.0 [facility] Comment on above: Performed By: #### A NARF #### [facility] [address] [place] [address] Dr. David Cannon Creatinine [Mass/Vol] 0.67 mg/dL Normal 0.55-1.02 [facility] Comment on above: Performed By: #### A NARF #### [facility] [address] [place] [address] Dr. David Cannon EGFR-AF LIBYAN >60 Normal >=60 [facility] Comment on above: Performed By: #### A NARF #### [facility] [address] [place] [address] Dr. David Cannon EGFR-NON AF LIBYAN >60 Normal >=60 [facility] Comment on above: Performed By: #### A NARF #### [facility] [address] [place] [address] Dr. David Cannon Globulin (S) [Mass/Vol] 3.6 g/dL Normal T [facility] Comment on above: Performed By: #### A NARF #### [facility] [address] [address] [address] David Cannon Glucose [Mass/Vol] 130 mg/dL Critically high 74-106 [facility] Comment on above: Performed By: #### A NARF #### [facility] [address] [address] [address] David Cannon Potassium [Moles/Vol] 4.1 mmol/L Normal 3.5-5.1 [facility] Comment on above: Performed By: #### A NARF #### [facility] [address] [address] [address] David Cannon Protein [Mass/Vol] 7.8 g/dL Normal 6.4-8.2 [facility] Comment on above: Performed By: #### A NARF #### [facility] [address] [address] [address] David Cannon Sodium [Moles/Vol] 143 mmol/L Normal 136-145 [facility] Comment on above: Performed By: #### A NARF #### [facility] [address] [address] [address] David Cannon Urea nitrogen [Mass/Vol] 11.0 mg/dL Normal 7.0-18.0 [facility] Comment on above: Performed By: #### A NARF #### [facility] [address] [address] [address] David Cannon Urea nitrogen/Creatinine [Mass ratio] 16.4 mg/mg Normal [facility] Comment on above: Performed By: #### A NARF #### [facility] [address] [address] [address] David Cannon PROTIMEon 02-23-2022 INR Coag (PPP) [Relative time] {INR} Normal [facility] Comment on above: Performed By: #### B MP, TSH #### [facility] [address] [address] [address] David Cannon INR GUIDELINES SEE BELOW Normal [facility] Comment on above: Result Comment: SURY RED INR: 2.0 - 3.0 CONDITIONS NOT LISTED BELOW 2.5 - 3.5 FOR PROSTHETIC HEART VALVE REPLACEMENT 2.5 - 3.5 RECURRENT THROMBOSIS Performed By: #### B MP, TSH #### [facility] [address] [place] [address] Dr. David Cannon PT Coag (PPP) [Time] 10.0 s Normal 9.0-11.6 [facility] Comment on above: Performed By: #### B MP, TSH #### [facility] [address] [place] [address] Dr. David Cannon PTTon 02-23-2022 aPTT Coag (Bld) [Time] 25.4 s Normal 22.3-36.2 Th e [facility] Comment on above: Performed By: #### B NILSA, TSH #### [facility] [address] [place] [address] Dr. David Cannon TROPONIN, HIGH SENSITIVITYon 02-23-2022 HSTROP 6.0 pg/mL Normal 4.0-51.3 [facility] Comment on above: Result Comment: CUT- OFF POINTS HAVE BEEN ESTABLISHED BASED ON THE FOURTH UNIVERSAL DEFINITIONS OF MYOCARDIAL INFARCTION. THE UPPER REFERENCE LIMIT (URL) OF TROPONIN, DEFINED THE 99TH PERCENTILE OF cTnI DISTRIBUTION IN A REFERENCE POPULATION, HAS BEEN CONFIRMED THE DECISION THRESHOLD FOR CT DIAGNOSIS. Performed By: #### A NARF #### [facility] [address] [place] [address] Dr. David Cannon XR CHEST 1 Von [...] LONI SALAS Date: 2022-02-23 16:18 Normal [facility] CT ABD/PELV W CONon 01-08-[address] [...] degenerative changes of the spine. Status post vertebroplasty/kypho plasty changes of L2. Stable compression deformity of [...] MEZA Date: 2022-01-06 22:12 Normal [facility] AMYLASEon 01-06-2022 Amylase [Catalytic activity/Vol] 34 U/L Normal 25-115 [facility] Comment on above: Performed By: #### C ELAINE ASH ####[facility] [address] [place], [place] [address]XdGerry Cannon CBC AUTO DIFFon 01-06-2022 BASO # 0.0 103/ul Normal 0.0-0.1 [facility] Comment on above: Performed By: #### A NARF #### [facility] [address] [place] [address] Dr. David Cannon Basophils/100 WBC (Bld) 0.5 % Normal 0.2-2.0 [facility] Comment on above: Performed By: #### A NARF #### [facility] [address] [place] [address] Dr. David Cannon EO # 0.1 103/ul Normal 0.0-0.7 [facility] Comment on above: Performed By: #### A NARF #### [facility] [address] [place] [address] Dr. David Cannon Eosinophils/100 WBC (Bld) 1.4 % Normal 0.9-7.0 [facility] Comment on above: Performed By: #### A NARF #### [facility] [address] [place] [address] Dr. David Cannon Erythrocyte distribution width (RBC) [Ratio] 12.0 % Normal 11.0-15.0 [facility] Comment on above: Performed By: #### A NARF #### [facility] [address] [place] [address] Dr. David Cannon Hematocrit (Bld) [Volume fraction] 44.6 % Normal 36.0-48.0 [facility] Comment on above: Performed By: #### A NARF #### [facility] [address] [place] [address] Dr. David Cannon Hemoglobin (Bld) [Mass/Vol] 14.5 g/dL Normal 12.0-16.0 [facility] Comment on above: Performed By: #### A NARF #### [facility] [address] [place] [address] Dr. David Cannon IG # 0.01 10e3/ul Normal 0.00-0.03 [facility] Comment on above: Performed By: #### A NARF #### [facility] [address] [place] [address] Dr. David Cannon IG % 0.2 % Normal 0.0-0.5 [facility] Comment on above: Performed By: #### A NARF #### [facility] [address] [address] [address] David Cannon LYMPH # 2.5 103/ul Normal 1.2-3.8 [facility] Comment on above: Performed By: #### A NARF #### [facility] [address] [address] [address] David Cannon Lymphocytes/100 WBC (Bld) 42.6 % Normal 20.5-60.0 [facility] Comment on above: Performed By: #### A NARF #### [facility] [address] [place] [address] Dr. David Cannon MANUAL DIFF REQ NO Normal [facility] Comment on above: Performed By: #### A NARF #### [facility] [address] [place] [address] Dr. David Cannon MCH (RBC) [Entitic mass] 31.6 pg Normal 26.7-34.0 [facility] Comment on above: Performed By: #### A NARF #### [facility] [address] [place] [address] Dr. David Cannon MCHC (RBC) [Mass/Vol] 32.5 g/dL Normal 29.9-35.2 [facility] Comment on above: Performed By: #### A NARF #### [facility] [address] [place] [address] Dr. David Cannon MCV (RBC) [Entitic vol] 97.2 fL Normal 81.0-99.0 [facility] Comment on above: Performed By: #### A NARF #### [facility] [address] [place] [address] Dr. David Cannon MONO # 0.4 103/ul Normal 0.3-0.8 [facility] Comment on above: Performed By: #### A NARF #### [facility] [address] [place] [address] Dr. David Cannon Monocytes/100 WBC (Bld) 5.9 % Normal 1.7-12.0 [facility] Comment on above: Performed By: #### A NARF #### [facility] [address] [address] [address] David Cannon NEUT # 2.9 103/ul Normal 1.4-6.5 [facility] Comment on above: Performed By: #### A NARF #### [facility] [id number] David Cannon Neutrophils/100 WBC (Bld) 49.4 % Normal 43.0-75.0 [facility] Comment on above: Performed By: #### A NARF #### [facility] [address] [address] [address] David Cannon Platelet mean volume (Bld) [Entitic vol] 9.1 fL Critically low 9.5-13.5 [facility] Comment on above: Performed By: #### A NARF #### [facility] [address] [place] [address] Dr. David Cannon PLT 257 103/ul Normal 150-450 [facility] Comment on above: Performed By: #### A NARF #### [facility] [address] [address] [address] David Cannon RBC 4.59 106/ul Normal 4.20-5.40 [facility] Comment on above: Performed By: #### A NARF #### [facility] [address] [address] [address] David Cannon WBC 5.9 103/ul Normal 4.0-11.0 [facility] Comment on above: Performed By: #### A NARF #### [facility] [address] [address] [address] David Cannon D-DIMERon 01-06-2022 D-DIMER 0.67 mg/L FEU Critically high <=0.59 [facility] Comment on above: Performed By: #### D DIM ####[facility] [address] [place], [place] [address]KhDr. David Cannon D-DIMER COMMENTS SEE BELOW Normal [facility] Comment on above: Result Comment: Incr eases [...] and generalized hospitalization. Performed By: #### D AQUILINO ####[facility] [address] [place], [place] [address]DrGerry Cannon PROF 14(COMP METB)on 022 Albumin [Mass/Vol] 4.0 g/dL Normal 3.4-5.0 [facility] Comment on above: Performed By: #### C NILSA, ELAINE ####[facility] [address] [place], [place] [address]Dr. David Cannon Albumin/Globulin [Mass ratio] 1.2 {ratio} Normal [facility] Comment on above: Performed By: #### C NILSA, ELAINE ####[facility] [address] [place], [place] [address]Dr. David Cannon ALP [Catalytic activity/Vol] 78 U/L Normal 46-116 [facility] Comment on above: Performed By: #### C NILSA, ELAINE ####[facility] [address] [place], [place] [address]Dr. David Cannon ALT [Catalytic activity/Vol] 23 U/L Normal 14-59 [facility] Comment on above: Performed By: #### C NILSA, ELAINE ####[facility] [address] [place], [place] [address]Dr. David Cannon Anion gap [Moles/Vol] 10.8 mmol/L Normal [facility] Comment on above: Performed By: #### C NILSA, ELAINE ####[facility] [address] [place], [place] [address]Dr. David Cannon AST [Catalytic activity/Vol] 28 U/L Normal 15-37 [facility] Comment on above: Performed By: #### C NILSA, ELAINE ####[facility] [address] [place], [place] [address]Dr. David Cannon Bilirubin [Mass/Vol] 0.3 mg/dL Normal 0.2-1.0 [facility] Comment on above: Performed By: #### C NILSA, ELAINE ####[facility] [address] [place], [place] [address]Dr. David Cannon Calcium [Mass/Vol] 9.1 mg/dL Normal 8.5-10.1 [facility] Comment on above: Performed By: #### C NILSA, ELAINE ####[facility] [address] [place], [place] [address]Dr. David Cannon Chloride [Moles/Vol] 102 mmol/L Normal 98-107 [facility] Comment on above: Performed By: #### C NILSA, ELAINE ####[facility] [address] [place], [place] [address]Dr. David Cannon CO2 [Moles/Vol] 30.3 mmol/L Normal 21.0-32.0 [facility] Comment on above: Performed By: #### C NILSA, ELAINE ####[facility] [address] [place], [place] [address]Dr. David Cannon Creatinine [Mass/Vol] 0.46 mg/dL Critically low 0.55-1.02 [facility] Comment on above: Performed By: #### C NILSA, ELAINE ####[facility] [address] [place], [place] [address]Dr. David Cannon EGFR-AF LIBYAN >60 Normal >=60 [facility] Comment on above: Performed By: #### C NILSA, ELAINE ####[facility] [address] [place], [place] [address]Dr. David Davis EGFR-NON AF LIBYAN >60 Normal >=60 [facility] Comment on above: Performed By: #### C NILSA, ELAINE ####[facility] [address] [place], [place] [address]Dr. David Davis Globulin (S) [Mass/Vol] 3.4 g/dL Normal [facility] Comment on above: Performed By: #### C NILSA, ELAINE ####[facility] [address] [place], [place] [address]Dr. David Cannon Glucose [Mass/Vol] 111 mg/dL Critically high 74-106 [facility] Comment on above: Performed By: #### C NILSA, ELAINE ####[facility] [address] [address]Dr. David Cannon Potassium [Moles/Vol] 4.1 mmol/L Normal 3.5-5.1 [facility] Comment on above: Performed By: #### C NILSA, ELAINE ####[facility] [address] [place], [place] [address]Dr. David Cannon Protein [Mass/Vol] 7.4 g/dL Normal 6.4-8.2 [facility] Comment on above: Performed By: #### C NILSA, ELAINE ####[facility] [address] [place], [place] [address]Dr. David Cannon Sodium [Moles/Vol] 139 mmol/L Normal 136-145 [facility] Comment on above: Performed By: #### C NILSA, ELAINE ####[facility] [address] [place], [place] [address]Dr. David Cannon Urea nitrogen [Mass/Vol] 14.0 mg/dL Normal 7.0-18.0 [facility] Comment on above: Performed By: #### C NILSA, ELAINE ####[facility] [address] [place], [place] [address]Dr. David Cannon Urea nitrogen/Creatinine [Mass ratio] 30.4 mg/mg Normal [facility] Comment on above: Performed By: #### C NILSA, ELAINE ####[facility] [address] [place], [place] [address]Dr. David Cannon CBC AUTO DIFFon 11-28-2021 BASO # 0.0 103/ul Normal 0.0-0.1 [facility] Comment on above: Performed By: #### C BC ####[facility] [address] [address]Dr. David Cannon Basophils/100 WBC (Bld) 0.8 % Normal 0.2-2.0 [facility] Comment on above: Performed By: #### C BC ####[facility] [address] [id number]. David Cannon EO # 0.1 103/ul Normal 0.0-0.7 [facility] Comment on above: Performed By: #### C BC ####[facility] [address] [address]Dr. David Cannon Eosinophils/100 WBC (Bld) 3.0 % Normal 0.9-7.0 [facility] Comment on above: Performed By: #### C BC ####[facility] [address] [place], [place] [address]Dr. David Cannon Erythrocyte distribution width (RBC) [Ratio] 11.9 % Normal 11.0-15.0 [facility] Comment on above: Performed By: #### C BC ####[facility] [address] [place], [place] [address]Dr. David Cannon Hematocrit (Bld) [Volume fraction] 42.4 % Normal 36.0-48.0 [facility] Comment on above: Performed By: #### C BC ####[facility] [address] [place], [place] [address]Dr. David Cannon Hemoglobin (Bld) [Mass/Vol] 13.3 g/dL Normal 12.0-16.0 [facility] Comment on above: Performed By: #### C BC ####[facility] [address] [place], [place] [address]Dr. David Cannon IG # 0.01 10e3/ul Normal 0.00-0.03 [facility] Comment on above: Performed By: #### C BC ####[facility] [address] [place], [place] [address]Dr. David Cannon IG % 0.3 % Normal 0.0-0.5 [facility] Comment on above: Performed By: #### C BC ####[facility] [address] [place], [place] [address]Dr. David Cannon LYMPH # 1.6 103/ul Normal 1.2-3.8 [facility] Comment on above: Performed By: #### C BC ####[facility] [address] [place] [address]Dr. David Cannon Lymphocytes/100 WBC (Bld) 39.6 % Normal 20.5-60.0 [facility] Comment on above: Performed By: #### C BC ####[facility] [address] [place] [id number]. David Davis MANUAL DIFF REQ NO Normal [facility] Comment on above: Performed By: #### C BC ####[facility] Xf[address]axc[address] [place] [id number]. David Cannon MCH (RBC) [Entitic mass] 31.6 pg Normal 26.7-34.0 [facility] Comment on above: Performed By: #### C BC ####[facility] Sw[address] [place], [place] [address]Dr. David Davis MCHC (RBC) [Mass/Vol] 31.4 g/dL Normal 29.9-35.2 [facility] Comment on above: Performed By: #### C BC ####[facility] [address] [place] [address]Dr. David Cannon MCV (RBC) [Entitic vol] 100.7 fL Critically high 81.0-[address] [facility] Comment on above: Performed By: #### C BC ####[facility] [address] [place], [place] [address]Dr. David Davis MONO # 0.4 103/ul Normal 0.3-0.8 [facility] Comment on above: Performed By: #### C BC ####[facility] Fcqec[address]eeg[address] [place], [place] [id number]. David Davis Monocytes/100 WBC (Bld) 11.2 % Normal 1.7-12.0 [facility] Comment on above: Performed By: #### C BC ####[facility] [address] [place] [id number]. Janellbraeden Davis NEUT # 1.8 103/ul Normal 1.4-6.5 [facility] Comment on above: Performed By: #### C BC ####[facility] [address] [place], [place] [address]Fp. David Cannon Neutrophils/100 WBC (Bld) 45.1 % Normal 43.0-75.0 [facility] Comment on above: Performed By: #### C BC ####[facility] [address] [place], [place] [address]Er. David Cannon Platelet mean volume (Bld) [Entitic vol] 9.1 fL Critically low 9.5-13.5 [facility] Comment on above: Performed By: #### C BC ####[facility] [address] [place] [address]Dr. David Cannon PLT 177 103/ul Normal 150-450 [facility] Comment on above: Performed By: #### C BC ####[facility] Foz[address]ymeor[address] [place] [address]Dr. David Cannon RBC 4.21 106/ul Normal 4.20-5.40 [facility] Comment on above: Performed By: #### C BC ####[facility] [address] [place], [place] [address]Ix. David Cannon WBC 3.9 103/ul Critically low 4.0-11.0 [facility] Comment on above: Performed By: #### C BC ####[facility] Mzf[address]zhrq[address] [place] [address]Dr. David Cannon CRPon 11-28-2021 CRP [Mass/Vol] mg/L Normal <=1.0 [facility] Comment on above: Performed By: #### A NARF #### [facility] [address] [place], [place] [address] Dr. David Cannon XR LSPINE 2_3 VIEWSon 2021 XR LSPINE 2_3 VIEWS EXAMINATION: XR LSPINE 2_3 VIEWS, XR SACRUM_COCCYX HISTORY: History of fall COMPARISON: 10/16/2021 CT exam FINDINGS: BONES: Rotatory levocurvature centered at L3. Kyphoplasty at L2. 40% anterior superior wedge compression fracture of T12. Left superior wedge compression fracture of L5. Minimal degenerative spondylosis. [id number] facet osteoarthropathy. DISC SPACES: Multilevel disc space narrowing PARASPINOUS: Negative. No paraspinous abnormality is seen. OTHER: Negative. IMPRESSION: Grossly stable from CT exam performed 4 days ago Electronically authenticated by: JANNA LAWTON Date: 2021-10-20 12:[address] [facility] CULTURE URINEon 10-18-2021 CULTURE URINE Isolate 1 Escherichia coli >100,000 cfu/mL of ORGANISM 1 Escherichia coli ANTIBIOTIC M.I.C RX STATUS Ampicillin 4 S F Ampicillin/Sulbactam <=2 S F Piperacillin/Tazobac mena <=4 S F Cefazolin <=4 S F Ceftazidime <=1 S F Ceftriaxone <=1 S F Ertapenem <=0.5 S F Imipenem <=0.25 S F Amikacin <=2 S F Gentamicin <=1 S F Tobramycin <=1 S F Ciprofloxacin <=0.25 S F Levofloxacin <=0.12 S F Nitrofurantoin <=16 S F Trimethoprim/Sulfame thoxazole <=[address] [facility] Comment on above: Performed By: #### U RCX ####[facility] [address]qtxteed[address] [place] [address]DrGerry Cannon AMYLASEon 10-16-2021 Amylase [Catalytic activity/Vol] 35 U/L Normal 25-115 [facility] Comment on above: Performed By: #### B MP, TSH #### [facility] [address] [place] [address] [address] David Cannon CBC AUTO DIFFon 10-16-2021 BASO # 0.0 103/ul Normal 0.0-0.1 [facility] Comment on above: Performed By: #### C BC ####[facility] [address]ewinfx[address] [place] [address]Dr. David Cannon Basophils/100 WBC (Bld) 0.7 % Normal 0.2-2.0 [facility] Comment on above: Performed By: #### C BC ####[facility] Rdnobdjdgl[address] [place] [address]DrGerry Cannon EO # 0.1 103/ul Normal 0.0-0.7 [facility] Comment on above: Performed By: #### C BC ####[facility] Nomowcbabm[address] [place] [address]Dr. David Cannon Eosinophils/100 WBC (Bld) 1.0 % Normal 0.9-7.0 [facility] Comment on above: Performed By: #### C BC ####[facility] Toq[address] [place], [place] [address]Dr. David Cannon Erythrocyte distribution width (RBC) [Ratio] 11.7 % Normal 11.0-15.0 [facility] Comment on above: Performed By: #### C BC ####[facility] [address] [place], [place] [address]Dr. David Cannon Hematocrit (Bld) [Volume fraction] 46.9 % Normal 36.0-48.0 [facility] Comment on above: Performed By: #### C BC ####[facility] [address] [place], [place] [address]Dr. David Cannon Hemoglobin (Bld) [Mass/Vol] 15.2 g/dL Normal 12.0-16.0 [facility] Comment on above: Performed By: #### C BC ####[facility] [address]un[address] [place], [place] [address]Dr. David Cannon IG # 0.01 10e3/ul Normal 0.00-0.03 [facility] Comment on above: Performed By: #### C BC ####[facility] Hotmxed[address] [place], [place] [address]Dr. David Cannon IG % 0.2 % Normal 0.0-0.5 [facility] Comment on above: Performed By: #### C BC ####[facility] [address] [place], [place] [address]Dr. David Cannon LYMPH # 1.7 103/ul Normal 1.2-3.8 [facility] Comment on above: Performed By: #### C BC ####[facility] [address] [place], [place] [address]Dr. David Cannon Lymphocytes/100 WBC (Bld) 29.0 % Normal 20.5-60.0 [facility] Comment on above: Performed By: #### C BC ####[facility] [address] [place] [address]Dr. David Cannon MANUAL DIFF REQ NO Normal [facility] Comment on above: Performed By: #### C BC ####[facility] Oz[address]cjpzk[address] [place] [address]Dr. David Cannon MCH (RBC) [Entitic mass] 32.0 pg Normal 26.7-34.0 [facility] Comment on above: Performed By: #### C BC ####[facility] Cckjxqspgj[address] [place] [address]Dr. David Cannon MCHC (RBC) [Mass/Vol] 32.4 g/dL Normal 29.9-35.2 [facility] Comment on above: Performed By: #### C BC ####[facility] [address] [place], [place] [address]Dr. David Cannon MCV (RBC) [Entitic vol] 98.7 fL Normal 81.0-99.0 [facility] Comment on above: Performed By: #### C BC ####[facility] [address] [place], [place] [address]Dr. David Cannon MONO # 0.4 103/ul Normal 0.3-0.8 [facility] Comment on above: Performed By: #### C BC ####[facility] [address]qgu[address] [place] [address]Dr. David Cannon Monocytes/100 WBC (Bld) 6.6 % Normal 1.7-12.0 [facility] Comment on above: Performed By: #### C BC ####[facility] [address]rav[address] [place], [place] [address]Dr. David Cannon NEUT # 3.7 103/ul Normal 1.4-6.5 [facility] Comment on above: Performed By: #### C BC ####[facility] [address] [place], [place] [address]Dr. David Cannon Neutrophils/100 WBC (Bld) 62.5 % Normal 43.0-75.0 [facility] Comment on above: Performed By: #### C BC ####[facility] [address] [place], [place] [address]Qy. David Cannon Platelet mean volume (Bld) [Entitic vol] 9.5 fL Normal 9.5-13.5 [facility] Comment on above: Performed By: #### C BC ####[facility] [address] [place], [place] [address]Kj. David Cannon PLT 216 103/ul Normal 150-450 [facility] Comment on above: Performed By: #### C BC ####[facility] [address] [place], [place] [address]Hi. David Cannon RBC 4.75 106/ul Normal 4.20-5.40 [facility] Comment on above: Performed By: #### C BC ####[facility] [address] [place], [place] [address]Nf. David Cannon WBC 5.9 103/ul Normal 4.0-11.0 [facility] Comment on above: Performed By: #### C BC ####[facility] [address] [place], [place] [address]. [address] ABD/PELV W CONon 10-17-19 [...] DHALIWAL Date: 2021-10-16 15:43 Normal [facility] ER URINE PROFILEon 2 Bilirubin Ql (U) Negative Normal NEGATIVE [facility] Comment on above: Performed By: #### U MICRO, ERUR #### [facility] [address] [place] [address] Dr. David Cannon Clarity (U) SL CLOUDY Abnormal CLEAR [facility] Comment on above: Performed By: #### U MICRO, ERUR #### [facility] [address] [place] [address] [address] David Cannon Color (U) YELLOW Normal YELLOW [facility] Comment on above: Performed By: #### U MICRO, ERUR #### [facility] [address] [place] [address] [address] David OWEN A micrscopic examination will be performed if indicated. Normal [facility] Comment on above: Performed By: #### U MICRO, ERUR #### [facility] [address] [place] [address] [address] David Cannon Glucose Ql (U) Negative Normal NEGATIVE [facility] Comment on above: Performed By: #### U MICRO, ERUR #### [facility] [address] [place] [address] [address] David Cannon Hemoglobin Ql (U) Negative Normal NEGATIVE [facility] Comment on above: Performed By: #### U MICRO, ERUR #### [facility] [address] [place] [address] Dr. David Cannon Ketones Ql (U) TRACE Abnormal NEGATIVE [facility] Comment on above: Performed By: #### U MICRO, ERUR #### [facility] [address] [place] [address] Dr. David Cannon LEUKOCYTES SMALL Abnormal NEGATIVE [facility] Comment on above: Performed By: #### U MICRO, ERUR #### [facility] [address] [place] [address] Dr. David Cannon Nitrite Ql (U) Positive Abnormal NEGATIVE [facility] Comment on above: Performed By: #### U MICRO, ERUR #### [facility] [address] [place] [address] Dr. David Cannon pH (U) 5.5 [pH] Normal 5-9 [facility] Comment on above: Performed By: #### U MICRO, ERUR #### [facility] [address] [place] [address] Dr. David Cannon SPEC GRAVITY >=1.030 Abnormal 1.005-<=1.[address] [facility] Comment on above: Performed By: #### U MICRO, ERUR #### [facility] [address] [place] [address] Dr. David Cannon UA PROTEIN Negative Normal NEGATIVE/ TRACE [facility] Comment on above: Performed By: #### U MICRO, ERUR #### [facility] [address] [place] [address] Dr. David Cannon UR MICRO IND INDICATED Normal [facility] Comment on above: Performed By: #### U MICRO, ERUR #### [facility] [address] [place] [address] Dr. David Cannon Urobilinogen Qn (U) 0.2 {Skip'U}/dL Normal 0.2 - 1. 0 [facility] Comment on above: Performed By: #### U MICRO, ERUR #### [facility] [address] [place] [address] Dr. David Cannon LIPASEon 10-16-2021 Lipase [Catalytic activity/Vol] 93.0 U/L Normal 73.0-393.0 [facility] Comment on above: Performed By: #### B MP, TSH #### [facility] [address] [place] [address] Dr. David Cannon PROF 14(COMP METB)on 022 Albumin [Mass/Vol] 4.1 g/dL Normal 3.4-5.0 [facility] Comment on above: Performed By: #### B MP, TSH #### [facility] [address] [place] [address] Dr. David Cannon Albumin/Globulin [Mass ratio] 1.1 {ratio} Normal [facility] Comment on above: Performed By: #### B MP, TSH #### [facility] [address] [place] [address] Dr. David Cannon ALP [Catalytic activity/Vol] 88 U/L Normal 46-116 [facility] Comment on above: Performed By: #### B MP, TSH #### [facility] [address] [place] [address] Dr. David Cannon ALT [Catalytic activity/Vol] 17 U/L Normal 14-59 [facility] Comment on above: Performed By: #### B MP, TSH #### [facility] [address] [place] [address] Dr. David Cannon Anion gap [Moles/Vol] 12.4 mmol/L Normal [facility] Comment on above: Performed By: #### B MP, TSH #### [facility] [address] [place] [address] Dr. David Cannon AST [Catalytic activity/Vol] 15 U/L Normal 15-37 [facility] Comment on above: Performed By: #### B NILSA, TSH #### [facility] [address] [place] [address] Dr. David Cannon Bilirubin [Mass/Vol] 0.2 mg/dL Normal 0.2-1.0 [facility] Comment on above: Performed By: #### B MP, TSH #### [facility] [address] [place] [address] Dr. David Cannon Calcium [Mass/Vol] 9.8 mg/dL Normal 8.5-10.1 [facility] Comment on above: Performed By: #### B MP, TSH #### [facility] [address] [place] [address] Dr. David Cannon Chloride [Moles/Vol] 103 mmol/L Normal 98-107 [facility] Comment on above: Performed By: #### B NILSA, TSH #### [facility] [address] [place] [address] Dr. David Cannon CO2 [Moles/Vol] 30.6 mmol/L Normal 21.0-32.0 [facility] Comment on above: Performed By: #### B NILSA, TSH #### [facility] [address] [place] [address] Dr. David Cannon Creatinine [Mass/Vol] 0.85 mg/dL Normal 0.55-1.02 [facility] Comment on above: Performed By: #### B NILSA, TSH #### [facility] [address] [place] [address] Dr. David Cannon EGFR-AF LIBYAN >60 Normal >=60 [facility] Comment on above: Performed By: #### B NILSA, TSH #### [facility] [address] [place] [address] Dr. David Cannon EGFR-NON AF LIBYAN >60 Normal >=60 [facility] Comment on above: Performed By: #### B MP, TSH #### [facility] [address] [place] [address] Dr. David Cannon Globulin (S) [Mass/Vol] 3.8 g/dL Normal T [facility] Comment on above: Performed By: #### B NILSA, TSH #### [facility] [address] [place] [address] Dr. David Cannon Glucose [Mass/Vol] 119 mg/dL Critically high 74-106 T [facility] Comment on above: Performed By: #### B NILSA, TSH #### [facility] [address] [place] [address] Dr. David Cannon Potassium [Moles/Vol] 4.0 mmol/L Normal 3.5-5.1 [facility] Comment on above: Performed By: #### B NILSA, TSH #### [facility] [address] [place] [address] Dr. David Cannon Protein [Mass/Vol] 7.9 g/dL Normal 6.4-8.2 [facility] Comment on above: Performed By: #### B NILSA, TSH #### [facility] [address] [place] [address] Dr. David Cannon Sodium [Moles/Vol] 142 mmol/L Normal 136-145 [facility] Comment on above: Performed By: #### B NILSA, TSH #### [facility] [address] [place] [address] Dr. David Cannon Urea nitrogen [Mass/Vol] 12.0 mg/dL Normal 7.0-18.0 [facility] Comment on above: Performed By: #### B NILSA, TSH #### [facility] [address] [place] [address] Dr. David Cannon Urea nitrogen/Creatinine [Mass ratio] 14.1 mg/mg Normal [facility] Comment on above: Performed By: #### B NILSA, TSH #### [facility] [address] [place] [address] Dr. David Cannon URINE MICROSCOPIC ONLYon BACTERIA LARGE Abnormal NONE SEEN [facility] Comment on above: Performed By: #### U MICRO, ERUR #### [facility] [address] [place] [address] Dr. David Cannon Bacteria identified Cx Nom (U) INDICATED Normal [facility] Comment on above: Performed By: #### U MICRO, ERUR #### [facility] [address] [place] [address] Dr. David Cannon CA OX CRYSTALS FEW Normal [facility] Comment on above: Performed By: #### U MICRO, ERUR #### [facility] [address] [place] [address] Dr. David Cannon CAST SEEN Abnormal NONE SEEN [facility] Comment on above: Performed By: #### U MICRO, ERUR #### [facility] [address] [place] [address] Dr. David Cannon Crystals LM Nom (Urine sed) SEEN Abnormal NONE SEEN [facility] Comment on above: Performed By: #### U MICRO, ERUR #### [facility] [address] [place] [address] Dr. David Cannon Epithelial cells LM Ql (Urine sed) RARE Normal NONE SEEN /RARE [facility] Comment on above: Performed By: #### U MICRO, ERUR #### [facility] [address] [place] [address] Dr. David Cannon HYALINE CAST FEW Normal [facility] Comment on above: Performed By: #### U MICRO, ERUR #### [facility] [address] [place] [address] Dr. David Cannon MUCOUS TRACE Abnormal NONE SEEN [facility] Comment on above: Performed By: #### U MICRO, ERUR #### [facility] [address] [place] [address] Dr. David Cannon RBC 2-5 Abnormal 0-2 [facility] Comment on above: Performed By: #### U MICRO, ERUR #### [facility] [address] [place] [address] Dr. David Cannon WBC 75-100 Abnormal NONE SEEN [facility] Comment on above: Performed By: #### U MICRO, ERUR #### [facility] [address] [place] [address] Dr. David Cannon XR ANKLE RT MIN [...] DODD Date: 2021-10-05 10:56 Normal [facility] MRI TSPINE WO W CONon 2021 MRI [...] CELIA CORMIER Date: 2021-09-01 07:29 Normal [facility] CREATININEon 08-31-2021 Creatinine [Mass/Vol] 0.82 mg/dL Normal 0.55-1.02 [facility] Comment on above: Performed By: #### C LUCIA #### [facility] [address] [place] [address] [address] David Cannon EGFR-AF LIBYAN >60 Normal >=60 [facility] Comment on above: Performed By: #### C LUCIA #### [facility] [address] [place] [address] [address] David Cannon EGFR-NON AF LIBYAN >60 Normal >=60 [facility] Comment on above: Performed By: #### C LUCIA #### [facility] [address] [place] [address] [address] David Cannon COVID Quick Testingon 2021 Result Negative [place] Other Quick Fluon 04-13-2021 FLUAV Ab CF (S) [Titer] Negative N Geni Other FLUBV Ab CF (S) [Titer] Negative N Geni Other Vital Signs Date Time Vital Sign Value Performing Clinician Facility 12-25-2023 13:30-0400 Body height 157.48 cm MD Nettie Iqbal Work Phone: [facility] 12-25-2023 13:30-0400 Body mass index (BMI) [Ratio] 19.8 kg/m2 MD Nettie Iqbal Work Phone: [facility] 12-25-2023 13:30-0400 Body weight 49.1 kg MD Nettie Iqbal Work Phone: [facility] 12-25-2023 13:30-0400 Diastolic blood pressure 70 mm[Hg] MD Nettie Iqbal Work Phone: [facility] 12-25-2023 13:30-0400 Heart rate 71 /min MD Nettie Iqbal Work Phone: [facility] 12-25-2023 13:30-0400 Respiratory rate 16 /min MD Nettie Iqbal Work Phone: [facility] 12-25-2023 13:30-0400 SaO2% (BldA) [Mass fraction] 95 % MD Nettie Iqbal Work Phone: [facility] 12-25-2023 13:30-0400 Systolic blood pressure 124 mm[Hg] MD Nettie Iqbal Work Phone: [facility] 12-19-2023 11:14-0400 Body weight 48 kg Everett Dunlap MD Work Phone: [facility] 12-19-2023 11:14-0400 Diastolic blood pressure 60 mm[Hg] Everett Dunlap MD Work Phone: [facility] 12-19-2023 11:14-0400 Heart rate 75 /min Everett Dunlap MD Work Phone: [facility] 12-19-2023 11:14-0400 Systolic blood pressure 116 mm[Hg] Everett Dunlap MD Work Phone: [facility] 11-26-2023 09:18-0400 Body height 157.48 cm MD Nettie Iqbal Work Phone: [facility] 11-26-2023 09:18-0400 Body mass index (BMI) [Ratio] 18.3 kg/m2 MD Nettie Iqbal Work Phone: [facility] 11-26-2023 09:18-0400 Body weight 45.35 kg MD Nettie Iqbal Work Phone: [facility] 11-26-2023 09:18-0400 Diastolic blood pressure 72 mm[Hg] MD Nettie Iqbal Work Phone: [facility] 11-26-2023 09:18-0400 Heart rate 80 /min MD Nettie Iqbal Work Phone: [facility] 11-26-2023 09:18-0400 Systolic blood pressure 105 mm[Hg] MD Nettie Iqbal Work Phone: [facility] 09-24-2023 13:09-0400 Body height 157.48 cm [facility] 09-24-2023 13:09-0400 Body mass index (BMI) [Ratio] 18.3 kg/m2 [facility] 09-24-2023 13:09-0400 Body weight 45.47 kg [facility] 09-24-2023 13:09-0400 Diastolic blood pressure 82 mm[Hg] [facility] 09-24-2023 13:09-0400 Heart rate 73 /min [facility] 09-24-2023 13:09-0400 Systolic blood pressure 120 mm[Hg] [facility] 08-11-2023 11:04-0400 Body height 157.48 cm MD Nettie Iqbal Work Phone: [facility] 08-11-2023 11:04-0400 Body mass index (BMI) [Ratio] 19.1 kg/m2 MD Nettie Iqbal Work Phone: [facility] 08-11-2023 11:04-0400 Body temperature 97.4 [degF] MD Nettie Iqbal Work Phone: [facility] 08-11-2023 11:04-0400 Body weight 47.28 kg MD Nettie Iqbal Work Phone: [facility] 08-11-2023 11:04-0400 Heart rate 67 /min MD Nettie Iqbal Work Phone: [facility] 08-11-2023 11:04-0400 Respiratory rate 18 /min MD Nettie Iqbal Work Phone: [facility] 08-11-2023 11:04-0400 SaO2% (BldA) [Mass fraction] 91 % MD Nettie Iqbal Work Phone: [facility] 06-22-2023 13:02-0400 Body height 157.48 cm [facility] 06-22-2023 13:02-0400 Body mass index (BMI) [Ratio] 19.5 kg/m2 [facility] 06-22-2023 13:02-0400 Body weight 48.59 kg [facility] 06-22-2023 13:02-0400 Diastolic blood pressure 79 mm[Hg] [facility] 06-22-2023 13:02-0400 Heart rate 69 /min [facility] 06-22-2023 13:02-0400 Systolic blood pressure 143 mm[Hg] [facility] 06-15-2023 15:16-0400 Diastolic blood pressure 67 mm[Hg] [place] [facility] [employer] 06-15-2023 15:16-0400 Heart rate 59 /min [place] [facility] [employer] 06-15-2023 15:16-0400 Respiratory rate 12 /min [place] [facility] [employer] 06-15-2023 15:16-0400 SaO2% (BldA) [Mass fraction] 95 % [place] [employer] 06-15-2023 15:16-0400 Systolic blood pressure 152 mm[Hg] [place] [facility] 06-15-2023 11:59-0400 Body temperature 98.29 [degF] [place] 1 FRANCESCA BEJARANO [facility] 04-11-2023 14:20-0500 Body height 157.48 cm [employer] Other [facility] 04-11-2023 14:20-0500 Body mass index (BMI) [Ratio] 19.75 kg/m2 [employer] Other [employer] Other 04-11-2023 14:20-0500 Body weight 48.99 kg [employer] Other [employer] Other 04-11-2023 14:20-0500 Body weight 48.98 kg [facility] 02-27-2023 11:00-0500 Body height 157.48 cm [employer] Other [employer] Other 02-27-2023 11:00-0500 Body mass index (BMI) [Ratio] 19.75 kg/m2 [employer] Other [employer] Other 02-27-2023 11:00-0500 Body weight 48.99 kg [employer] Get Approved For Other [employer] Other 10-24-2022 13:00-0400 Body height 157.48 cm Nettie Iqbal Other [employer] Other 10-24-2022 13:00-0400 Body mass index (BMI) [Ratio] 21.21 kg/m2 Nettie Iqbal Other [employer] Other 10-24-2022 13:00-0400 Body weight 52.62 kg Nettie Iqbal Other [employer] Other 10-24-2022 13:00-0400 Diastolic blood pressure 82 mm[Hg] Nettie Iqbal Other [employer] Other 10-24-2022 13:00-0400 Systolic blood pressure 129 mm[Hg] Nettie Iqbal Other [employer] Other 09-07-2022 14:15-0400 Body height 157.48 cm Kiran Amaya Other [employer] Other 09-07-2022 14:15-0400 Body mass index (BMI) [Ratio] 20.48 kg/m2 Kiran Amaya Other [employer] Other 09-07-2022 14:15-0400 Body weight 50.8 kg Kiran Amaya Other [employer] Other 09-07-2022 14:15-0400 Diastolic blood pressure 80 mm[Hg] Kiran Amaya Other [employer] Other 09-07-2022 14:15-0400 Systolic blood pressure 137 mm[Hg] Kiran Amaya Other [employer] Other 08-29-2022 14:00-0400 Body height 157.48 cm Nettie Iqbal Other [employer] Other 08-29-2022 14:00-0400 Body mass index (BMI) [Ratio] 20.3 kg/m2 Nettie Iqbal Other [employer] Other 08-29-2022 14:00-0400 Body weight 50.35 kg Nettie Iqbal Other [employer] Other 08-29-2022 14:00-0400 Diastolic blood pressure 85 mm[Hg] Nettie Iqbal Other [employer] Other 08-29-2022 14:00-0400 Systolic blood pressure 144 mm[Hg] Nettie Iqbal Other [employer] Other 08-25-2022 16:50-0400 Body height 157.48 cm Sandra Flores Other [employer] Other 08-25-2022 16:50-0400 Body mass index (BMI) [Ratio] 20.59 kg/m2 Sandra Flores Other [employer] Other 08-25-2022 16:50-0400 Body temperature 96.6 [degF] Sandra Flores Other [employer] Other 08-25-2022 16:50-0400 Body weight 51.08 kg Sandra Flores Other [employer] Other 08-25-2022 16:50-0400 Diastolic blood pressure 71 mm[Hg] Sandra Flores Other [employer] Other 08-25-2022 16:50-0400 Respiratory rate 20 /min Sandra Flores Other [employer] Other 08-25-2022 16:50-0400 SaO2% (BldA) [Mass fraction] 94 % Sandra Flores Other [employer] Other 08-25-2022 16:50-0400 Systolic blood pressure 106 mm[Hg] Sandra Flores Other [employer] Other 08-03-2022 14:30-0400 Body height 157.48 cm Nettie Iqbal Other [employer] Other 08-03-2022 14:30-0400 Body mass index (BMI) [Ratio] 21.21 kg/m2 Nettie Iqbal Other [employer] Other 08-03-2022 14:30-0400 Body weight 52.62 kg Nettie Iqbal Other [employer] Other 08-03-2022 14:30-0400 Diastolic blood pressure 93 mm[Hg] Nettie Iqbal Other [employer] Other 08-03-2022 14:30-0400 Systolic blood pressure 143 mm[Hg] Nettie Iqbal Other [employer] Other 06-20-2022 16:20-0400 Body height 157.48 cm Vanessa Safnord Other [employer] Other 06-20-2022 16:20-0400 Body mass index (BMI) [Ratio] 21.95 kg/m2 Vanessa Sanford Other [employer] Other 06-20-2022 16:20-0400 Body temperature 98.9 [degF] Vanessa Sanford Other [employer] Other 06-20-2022 16:20-0400 Body weight 54.43 kg Vanessa Sanford Other [employer] Other 06-20-2022 16:20-0400 Diastolic blood pressure 81 mm[Hg] Vanessa Sanford Other [employer] Other 06-20-2022 16:20-0400 Respiratory rate 18 /min Vanessa Sanford Other [employer] Other 06-20-2022 16:20-0400 SaO2% (BldA) [Mass fraction] 99 % Vanessa Sanford Other [employer] Other 06-20-2022 16:20-0400 Systolic blood pressure 150 mm[Hg] Vanessa Sanford Other [employer] Other 06-16-2022 12:30-0400 Body height 157.48 cm Phani Ball Other [employer] Other 06-16-2022 12:30-0400 Body mass index (BMI) [Ratio] 22.2 kg/m2 Phani Ball Other [employer] Other 06-16-2022 12:30-0400 Body weight 55.07 kg Phani Ball Other [employer] Other 06-16-2022 12:30-0400 Diastolic blood pressure 75 mm[Hg] Phani Ball Other [employer] Other 06-16-2022 12:30-0400 Respiratory rate 12 /min Phani Ball Other [employer] Other 06-16-2022 12:30-0400 Systolic blood pressure 139 mm[Hg] Phani Ball Other [employer] Other 05-29-2022 14:45-0400 Body height 157.48 cm Phani Ball Other [employer] Other 05-29-2022 14:45-0400 Body mass index (BMI) [Ratio] 21.25 kg/m2 Phani Ball Other [employer] Other 05-29-2022 14:45-0400 Body weight 52.71 kg Phani Ball Other [employer] Other 05-29-2022 14:45-0400 Diastolic blood pressure 98 mm[Hg] Phani Ball Other [employer] Other 05-29-2022 14:45-0400 Respiratory rate 12 /min Phani Ball Other [employer] Other 05-29-2022 14:45-0400 Systolic blood pressure 150 mm[Hg] Phani Ball Other [employer] Other 03-14-2022 15:30-0500 Body height 157.48 cm Kiran Shamir Other [employer] Other 03-14-2022 15:30-0500 Body mass index (BMI) [Ratio] 19.57 kg/m2 Kiran Limaormack Other [employer] Other 03-14-2022 15:30-0500 Body weight 48.54 kg Kiran Shamir Other [employer] Other 03-14-2022 15:30-0500 Diastolic blood pressure 96 mm[Hg] Kiran Amaya Other [employer] Other 03-14-2022 15:30-0500 Systolic blood pressure 136 mm[Hg] Kiran Amaya Other [employer] Other 01-20-2022 11:40-0500 Diastolic blood pressure 84 mm[Hg] DO Phani Ball Work Phone: [facility] 01-20-2022 11:40-0500 Heart rate 79 /min DO Phani Ball Work Phone: [facility] 01-20-2022 11:40-0500 Respiratory rate 18 /min DO Phani Ball Work Phone: [facility] 01-20-2022 11:40-0500 SaO2% (BldA) [Mass fraction] 97 % DO Phani Ball Work Phone: [facility] 01-20-2022 11:40-0500 Systolic blood pressure 143 mm[Hg] DO Phani Ball Work Phone: [facility] 01-20-2022 09:05-0500 Body height 157.48 cm DO Phani Ball Work Phone: [facility] 01-20-2022 09:05-0500 Body temperature 98.2 [degF] DO Phani Ball Work Phone: [facility] 01-20-2022 09:05-0500 Body weight 51.25 kg DO Phani Ball Work Phone: [facility] 12-09-2021 12:00-0400 Body height 157.48 cm Kiarn Amaya Other [employer] Other 12-09-2021 12:00-0400 Body mass index (BMI) [Ratio] 21.58 kg/m2 Kiran Amaya Other [employer] Other 12-09-2021 12:00-0400 Body weight 53.52 kg Kiran Amaya Other [employer] Other 09-05-2021 17:00-0400 Body height 157.48 cm Ambrose Torres Other [employer] Other 09-05-2021 17:00-0400 Body mass index (BMI) [Ratio] 23.01 kg/m2 Ambrose Torres Other [employer] Other 09-05-2021 17:00-0400 Body weight 57.06 kg Ambrose Torres Other [employer] Other 06-13-2021 10:45-0400 Body height 157.48 cm Janna Pina Other [employer] Other 06-13-2021 10:45-0400 Body mass index (BMI) [Ratio] 23.23 kg/m2 Janna Pina Other [employer] Other 06-13-2021 10:45-0400 Body weight 57.61 kg Janna Pina Other [employer] Other 06-13-2021 10:45-0400 Diastolic blood pressure 107 mm[Hg] Janna Pina Other [employer] Other 06-13-2021 10:45-0400 Systolic blood pressure 145 mm[Hg] Janna Pina Other [employer] Other 04-13-2021 10:05-0500 Body height 157.48 cm Shira Cunningham Other [employer] Other 04-13-2021 10:05-0500 Body mass index (BMI) [Ratio] 22.86 kg/m2 Shira Cunningham Other [employer] Other 04-13-2021 10:05-0500 Body temperature 96.2 [degF] Shira Cunningham Other [employer] Other 04-13-2021 10:05-0500 Body weight 56.7 kg Shira Cunningham Other [employer] Other 04-13-2021 10:05-0500 Respiratory rate 18 /min Shira Cunningham Other [employer] Other 04-13-2021 10:05-0500 SaO2% (BldA) [Mass fraction] 95 % Shira Cunningham Other [employer] Other 01-20-2021 12:00-0500 Body height 157.48 cm Janna Pina Other [employer] Other 01-20-2021 12:00-0500 Body mass index (BMI) [Ratio] 23.04 kg/m2 Janna Pina Other [employer] Other 01-20-2021 12:00-0500 Body weight 57.15 kg Janna Pina Other [employer] Other 12-07-2020 15:30-0400 Body height 157.48 cm Janna Pina Other [employer] Other 12-07-2020 15:30-0400 Body mass index (BMI) [Ratio] 22.86 kg/m2 Janna Pina Other [employer] Other 12-07-2020 15:30-0400 Body weight 56.7 kg Janna Pina Other [employer] Other Encounters Encounter Date Encounter Type Care Provider Facility Start: 12-25-2023 End: 12-25-2023 ambulatory MD Nettie Iqbal Work Phone: [facility] Work Phone: Start: 12-25-2023 End: 12-25-2023 Patient encounter procedure MD Nettie Iqbal Work Phone: [facility] Physician [facility] Work Phone: Start: 12-19-2023 End: 12-19-2023 ambulatory EVERETT DUNLAP Facility:[facility] Start: 12-19-2023 End: 12-19-2023 Patient encounter procedure Everett Dunlap MD Work Phone: Gastroenterology Comment on above: Chronic LUQ pain (Pr imary Dx); Weight loss; Pancreatic cyst; Family history of colon cancer in father; Smoker Start: 12-12-2023 Non-patient / Non-visit MD Anny Iqbal Work Phone: [facility] Physician [facility] Work Phone: Start: 12-06-2023 Registered Recurring MD Nettie Iqbal Work Phone: [facility] Start: 11-30-2023 End: 12-04-2023 Telephone encounter Everett Dunlap MD Work Phone: Gastroenterology Comment on above: Procedure (Referred for EUS--->needs OV first) Start: 11-26-2023 End: 11-26-2023 ambulatory MD Nettie Iqbal Work Phone: [facility] Work Phone: Start: 11-26-2023 End: 11-26-2023 Patient encounter procedure MD Nettie Iqbal Work Phone: [facility] Physician [facility] Work Phone: Start: 11-02-2023 End: 11-02-2023 Patient encounter procedure MD Nettie Iqbal Work Phone: [facility] [place] Work Phone: Start: 11-02-2023 End: 11-02-2023 ambulatory MD Nettie Iqbal Work Phone: [facility] Work Phone: Start: 09-24-2023 End: 09-24-2023 ambulatory [facility] Work Phone: Start: 09-24-2023 End: 09-24-2023 Patient encounter procedure [facility] Physician [facility] Work Phone: Start: 08-11-2023 End: 08-11-2023 ambulatory MD Nettie Iqbal Work Phone: [facility] Work Phone: Start: 08-11-2023 End: 08-11-2023 Patient encounter procedure MD Nettie Iqbal Work Phone: [facility] Physician [facility] [place] Work Phone: Start: 07-26-2023 End: 07-26-2023 Patient encounter procedure MD Nettie Iqbal Work Phone: [facility] Work Phone: Start: 06-22-2023 End: 06-22-2023 Departed Referred MD Nettie Iqbal Work Phone: [facility] [place] Work Phone: Start: 06-22-2023 End: 06-22-2023 ambulatory Nettie Iqbal [facility] Work Phone: Start: 06-22-2023 End: 06-22-2023 Patient encounter procedure [facility] Work Phone: Start: 06-15-2023 End: 06-18-2023 ambulatory [facility] Start: 06-15-2023 End: 06-17-2023 Subsequent hospital visit by physician Ricardo Carbajal MD Work Phone: [facility] Special Procedure Comment on above: Compression fracture of T12 vertebra with delayed healing, subsequent encounter; Other osteoporosis with current pathological fracture, vertebra(e), initial encounter for fracture (HCC) Start: 06-13-2023 End: 06-14-2023 ambulatory [facility] Start: 05-28-2023 Non-patient / Non-visit [facility] Physician [facility] Work Phone: Start: 04-19-2023 End: 04-19-2023 Subsequent hospital visit by physician Rad External Film EF RAD EXTERNAL [employer] Comment on above: Arrived Start: 04-13-2023 End: 04-13-2023 ambulatory Nettie Iqbal Other [employer] Other Start: 04-13-2023 Telephone encounter Nettie Iqbal [facility] Start: 04-11-2023 End: 04-11-2023 ambulatory Ana Kim Other [employer] Other Start: 04-11-2023 Office outpatient vi sit 15 minutes Ana Kim [facility] Neurosurgery Start: 04-11-2023 End: 04-11-2023 Patient encounter procedure [facility] Physician [facility]- Start: 03-08-2023 End: 03-08-2023 ambulatory Nettie Iqbal Other [employer] Other Start: 03-08-2023 Office outpatient vi sit 15 minutes Nettie Iqbal [facility] Start: 03-08-2023 Telephone encounter Nettie Iqbal [facility] Start: 03-02-2023 End: 03-02-2023 ambulatory Ana Kim Other [employer] Other Start: 03-02-2023 Telephone encounter nAa Kim [facility] Pain Management Start: 02-27-2023 Office outpatient vi sit 25 minutes Ana Kim [facility] Neurosurgery Start: 02-27-2023 End: 02-27-2023 Patient encounter procedure MD Nettie Iqbal Work Phone: [facility] Ctr-XRay [facility] Work Phone: Start: 02-27-2023 End: 02-27-2023 ambulatory MD Nettie Iqbal Work Phone: [facility] Work Phone: Start: 02-20-2023 End: 02-20-2023 ambulatory Nettie Iqbal Other [employer] Other Start: 02-20-2023 Telephone encounter Nettie Kathy [facility] Start: 02-15-2023 End: 02-15-2023 ambulatory Nettie Kathy Other [employer] Other Start: 02-15-2023 Telephone encounter Nettie Iqbal [facility] Start: 02-12-2023 End: 02-12-2023 ambulatory Nettie Iqbal Other [employer] Other Start: 02-12-2023 Telephone encounter Nettie Kathy [facility] Start: 01-29-2023 End: 01-29-2023 ambulatory Kiran Amaya Other [employer] Other Start: 01-29-2023 Telephone encounter Kiran arnett [facility] Gastroenterology Start: 01-26-2023 End: 01-26-2023 ambulatory Kiran Amaya Other [employer] Other Start: 01-26-2023 Telephone encounter Kiran arnett [facility] Gastroenterology Start: 01-25-2023 End: 01-25-2023 ambulatory Nettie Kathy Other [employer] Other Start: 01-25-2023 Telephone encounter Nettie Kathy [facility] Start: 01-23-2023 End: 01-24-2023 ambulatory ROBIN FLANNERY Not Available Start: 01-22-2023 End: 01-22-2023 ambulatory Nettie Kathy Other [employer] Other Start: 01-22-2023 Telephone encounter Nettie Kathy [facility] Start: 01-15-2023 (Televisit) Televisit Nettie Kuaffman [facility] Start: 01-15-2023 End: 01-15-2023 ambulatory Nettie Iqbal Other [employer] Other Start: 01-12-2023 End: 01-12-2023 ambulatory Nettie Iqbal Other [employer] Other Start: 01-12-2023 Telephone encounter Nettie Iqbal [facility] Start: 01-11-2023 End: 01-11-2023 ambulatory MD Nettie Iqbal Work Phone: [facility] C[facility] Work Phone: Start: 01-11-2023 End: 01-11-2023 Patient encounter procedure MD Nettie Iqbal Work Phone: [facility] Ctr-Lab [facility] Work Phone: Start: 12-28-2022 End: 12-28-2022 ambulatory Nettie Iqbal Other [employer] Other Start: 12-28-2022 Telephone encounter Nettie Iqbal [facility] Start: 12-26-2022 (Televisit) Televisit Nettie Iqbal [facility] Start: 12-26-2022 End: 12-26-2022 ambulatory Nettie Iqbal Other [employer] Other Start: 12-25-2022 Telephone encounter Nettie Iqbal [facility] Start: 12-25-2022 End: 12-26-2022 ambulatory [facility] [employer] Other Start: 12-25-2022 End: 12-25-2022 Patient encounter procedure [facility] Start: 12-18-2022 End: 12-18-2022 Office outpatient new 45 minutes Libby Muñoz PA-C Work Phone: [facility] Comment on above: Pancreas cyst (Prima ry Dx) Start: 11-28-2022 End: 11-28-2022 ambulatory Kiran Amaya Other [employer] Other Start: 11-28-2022 Telephone encounter Kiran Vega melquiades [facility] Gastroenterology Start: 11-27-2022 End: 11-27-2022 ambulatory Nettie Iqbal Other [employer] Other Start: 11-27-2022 Telephone encounter Nettie Iqbal [facility] Start: 11-23-2022 (Televisit) Televisit Nettie Kauffman [facility] Start: 11-23-2022 End: 11-23-2022 ambulatory Nettie Iqbal Other [employer] Other Start: 11-22-2022 End: 11-22-2022 ambulatory Nettie Iqbal Other [employer] Other Start: 11-22-2022 Telephone encounter Nettie Iqbal [facility] Start: 11-20-2022 End: 11-20-2022 Departed Referred MD Nettie Iqbal Work Phone: [facility] Ctr-Lab [facility] Home Health Work Phone: Start: 11-20-2022 End: 11-20-2022 Patient encounter procedure MD Nettie Iqbal Work Phone: [facility] Ctr-Lab [facility] Home Health Work Phone: Start: 11-20-2022 End: 11-20-2022 ambulatory MD Nettie Iqbal Work Phone: [facility] Work Phone: Start: 11-20-2022 Telephone encounter Nettie Iqbal [facility] Start: 11-15-2022 End: 11-15-2022 ambulatory Nettie Iqbal Other [employer] Other Start: 11-15-2022 Telephone encounter Nettie Iqbal [facility] Start: 11-09-2022 End: 11-09-2022 Patient encounter procedure MD Nettie Iqbal Work Phone: [facility] Ctr-MRI [place] Work Phone: Start: 11-09-2022 End: 11-09-2022 ambulatory MD Nettie Iqbal Work Phone: [facility] Work Phone: Start: 11-02-2022 End: 11-02-2022 ambulatory Nettie Iqbal Other [employer] Other Start: 11-02-2022 Telephone encounter Nettie Iqbal [facility] Start: 10-24-2022 End: 10-24-2022 ambulatory Nettie Iqbal Other [employer] Other Start: 10-24-2022 Office outpatient vi sit 15 minutes Nettie Iqbal [facility] Start: 10-19-2022 End: 10-19-2022 ambulatory Shira Cunningham Other [employer] Other Start: 10-19-2022 Telephone encounter Shira Cunningham [facility] Start: 10-18-2022 End: 10-18-2022 ambulatory Nettie Iqbal Other [employer] Other Start: 10-18-2022 Telephone encounter Nettie Iqbal [facility] Start: 10-17-2022 End: 10-17-2022 ambulatory Nettie Iqbal Other [employer] Other Start: 10-17-2022 Telephone encounter Nettie Iqbal [facility] Start: 10-05-2022 End: 10-05-2022 ambulatory Kiran Amaya Other [employer] Other Start: 10-05-2022 Telephone encounter Kiran Vega [facility] Gastroenterology Start: 10-04-2022 End: 10-04-2022 ambulatory Nettie Iqbal Other [employer] Other Start: 10-04-2022 Telephone encounter Nettie Iqbal [facility] Start: 09-07-2022 End: 09-07-2022 ambulatory Kiran Amaya Other [employer] Other Start: 09-07-2022 Office outpatient vi sit 25 minutes Kiran Amaya [facility] Start: 09-06-2022 End: 09-06-2022 ambulatory Nettie Iqbal Other [employer] Other Start: 09-06-2022 Telephone encounter Nettie Kathy [facility] Start: 08-29-2022 End: 08-29-2022 ambulatory Nettie Iqbal Other [employer] Other Start: 08-29-2022 Office outpatient vi sit 15 minutes Nettie Iqbal [facility] Start: 08-25-2022 End: 08-25-2022 ambulatory Sandra Flores Other [employer] Other Start: 08-25-2022 Office outpatient vi sit 15 minutes Sandra Flores [facility] [place] Start: 08-14-2022 End: 08-14-2022 ambulatory Phani Pruitt Other [employer] Other Start: 08-14-2022 Telephone encounter Phani Pruitt [facility] Start: 08-10-2022 End: 08-10-2022 ambulatory Phani Pruitt Other [employer] Other Start: 08-10-2022 Telephone encounter Phani Pruitt [facility] Start: 08-08-2022 End: 08-08-2022 ambulatory Nettie Iqbal Other [employer] Other Start: 08-08-2022 Telephone encounter Nettie Kathy [facility] Start: 08-03-2022 End: 08-03-2022 ambulatory Nettie Iqbal Other [employer] Other Start: 08-03-2022 Office outpatient vi sit 15 minutes Nettie Iqbal [facility] Start: 07-27-2022 End: 07-28-[address] DOCTOR HYATT Facility:[facility] Start: 07-21-2022 End: 07-21-2022 ambulatory Phani Pruitt Other [employer] Other Start: 07-21-2022 Telephone encounter Phani Pruitt FP [facility] Start: 07-20-2022 End: 07-21-[address] PHANI PRUITT Facility:[facility] Start: 07-12-2022 End: 07-12-2022 ambulatory Phani Pruitt Other [facility] Other Start: 07-12-2022 Telephone encounter Phani Pruitt [facility] Start: 06-27-2022 End: 06-27-2022 ambulatory Vanessa Sanfodr Other [employer] Other Start: 06-27-2022 Telephone encounter Vanessa Sanford [facility] Start: 06-22-2022 End: 06-22-2022 ambulatory Phani Pruitt Other [employer] Other Start: 06-22-2022 Telephone encounter Phani Pruitt [facility] Start: 06-20-2022 End: 06-20-2022 Departed Referred SHEILA Sanford Work Phone: [facility] [place] Work Phone: Start: 06-20-2022 End: 06-20-2022 ambulatory SHEILA Sanford Work Phone: [facility] Work Phone: Start: 06-20-2022 Office outpatient vi sit 15 minutes Vanessa Sanford [facility] [place] Start: 06-16-2022 End: 06-17-[address] PHANI PRUITT [facility] [employer] Other Start: 06-16-2022 Office outpatient vi sit 25 minutes Phani Pruitt [facility] Start: 06-06-2022 End: 06-07-2022 ambulatory AINSLEY WATERMAN . Facility:[facility] Start: 05-29-2022 End: 05-30-[address] PHANI PRUITT [facility] [employer] Other Start: 05-29-2022 Office outpatient vi sit 25 minutes Phani Pruitt [facility] Start: 05-29-2022 Telephone encounter Phani Edmond FP [facility] Start: 05-12-2022 End: 05-12-2022 ambulatory Phani Pruitt Other [facility] Other Start: 05-12-2022 Telephone encounter Phani Pruitt FP [facility] Start: 05-09-2022 End: 05-09-2022 ambulatory Phani Pruitt Other [employer] Other Start: 05-09-2022 Office outpatient vi sit 15 minutes Phani Pruitt [facility] Start: 05-09-2022 Telephone encounter Phani Edmond GARCIA [facility] Start: 04-28-2022 End: 04-28-2022 ambulatory Phani Pruitt Other [facility] Other Start: 04-28-2022 Telephone encounter Phani Edmond GARCIA [facility] Start: 04-24-2022 End: 04-24-2022 ambulatory Phani Pruitt Other [facility] Other Start: 04-24-2022 Telephone encounter Phani Edmond GARCIA [facility] Start: 04-20-2022 End: 04-20-2022 ambulatory Phani Pruitt Other [facility] Other Start: 04-20-2022 Telephone encounter Phani Pruitt RADHA [facility] Start: 04-17-2022 End: 04-17-[address] ABDELRAHMAN WEINSTEIN . Facility:[facility] Start: 04-16-2022 Encounter for other preprocedural examination DR ABDELRAHMAN WEINSTEIN . [facility] Start: 04-14-2022 End: 04-15-[address] ABDELRAHMAN WEINSTEIN . Facility:[facility] Start: 04-14-2022 End: 04-15-2022 Encounter for other preprocedural examination DR ABDELRAHMAN WEINSTEIN . Facility:[facility] Start: 04-13-2022 End: 04-13-2022 ambulatory Phani Pruitt Other [facility] Other Start: 04-13-2022 Telephone encounter Phani GARCIA [facility] Start: 04-10-2022 End: 04-10-[address] ABDELRAHMAN WEINSTEIN . Facility:[facility] Start: 03-25-2022 End: 03-25-2022 ambulatory Kiran Amaya Other [facility] Other Start: 03-25-2022 Telephone encounter Kiran [facility] Start: 03-15-2022 End: 03-15-2022 ambulatory Phani Pruitt Other [facility] Other Start: 03-15-2022 Telephone encounter Phani GARCIA G [facility] Start: 03-14-2022 End: 03-14-2022 ambulatory Kiran Amaya Other [facility] Other Start: 03-14-2022 Office outpatient vi sit 15 minutes Kiran Amaya [facility] G[facility] Start: 03-10-2022 End: 03-10-2022 ambulatory Phani Pruitt Other [facility] Other Start: 03-10-2022 Telephone encounter Phani GARCIA G [facility] Start: 03-01-2022 Encounter for other preprocedural examination Nettie Iqbal Other [facility] Other Start: 03-01-2022 Pre-procedure evaluation check Nettie Iqbal Other [facility] Other Start: 02-23-2022 End: 02-24-[address] KIEL DÍAZ . Facility:H1 Start: 01-20-2022 End: 01-20-2022 Admission to same day surgery center DO Phani Pruitt Work Phone: [facility] Start: 01-20-2022 End: 01-20-2022 ambulatory DO Phani Pruitt Work Phone: [facility] Work Phone: Start: 01-06-2022 End: 01-07-[address] WAI SEVERINO Facility:[facility]1 Start: 01-02-2022 End: 01-02-2022 ambulatory Kiran Amaya Other [facility] Other Start: 01-02-2022 Telephone encounter Kiran arnett [facility] Start: 12-09-2021 End: 12-09-2021 ambulatory Kiran Amaya Other [facility] Other Start: 12-09-2021 Office outpatient vi sit 25 minutes Kiran Amaya [facility] Start: 11-28-2021 End: 11-29-[address] PHANI PRUITT Facility:[facility]1 Start: 11-10-2021 End: 11-10-2021 ambulatory Kiran Amaya Other [facility] Other Start: 11-10-2021 Telephone encounter Kiran arnett [facility] Start: 10-20-2021 End: 10-20-[address] PHANI PRUITT Facility:[facility]1 Start: 10-16-2021 End: 10-16-[address] PHANI PRUITT Facility:[facility] Start: 10-05-2021 End: 10-05-2021 ambulatory AINSLEY WATERMAN . Facility:[facility] Start: 09-30-2021 ambulatory [facility] [place] ty:[facility] Start: 09-29-2021 End: 09-29-2021 ambulatory Janna Pina Other [facility] Other Start: 09-29-2021 Telephone encounter Janna Pina [facility] Start: 09-20-2021 Adult health examination Nettie Iqbal Other [facility] Other Start: 09-20-2021 Encounter for genera l adult medical examination without abnormal findings Nettie Kathy Other [facility] Other Start: 09-05-2021 End: 09-05-2021 ambulatory Ambrose Torres Other [facility] Other Start: 09-05-2021 Office outpatient vi sit 15 minutes Ambrose Torres [facility] Start: 08-31-2021 End: 09-01-[address] PHANI PRUITT Facility: Start: 07-08-2021 End: 07-08-2021 ambulatory Janna Pina Other [facility] Other Start: 07-08-2021 Telephone encounter Janna Pina [facility] Start: 06-13-2021 End: 06-13-2021 ambulatory Janna Pina Other [facility] Other Start: 06-13-2021 Office outpatient vi sit 25 minutes Janna Pina [facility] Start: 04-13-2021 End: 04-13-2021 ambulatory Shira Cunningham Other [facility] Other Start: 04-13-2021 Office outpatient vi sit 15 minutes Shira Cunningham [facility] Start: 02-28-2021 End: 02-28-2021 ambulatory Janna Pina Other [facility] Other Start: 02-28-2021 Telephone encounter Janna Pina [facility] Start: 01-31-2021 End: 01-31-2021 ambulatory Janna Pina Other [facility] Other Start: 01-31-2021 Telephone encounter Janna Pina [facility] Start: 01-20-2021 End: 01-20-2021 ambulatory Janna Pina Other [facility] Other Start: 01-20-2021 Office outpatient vi sit [...] 01-21-2032 Screening for malignant neoplasm of colon [facility] Start: 06-03-2030 RSV Vaccine (1 - 1-dose 75+ series) RSV Vaccine (1 - 1-dose 75+ series) [facility] Start: 06-12-2026 Diabetes Screening Diabetes Screening [facility] Start: 02-14-2024 End: 02-14-2024 Patient encounter procedure 02/14/2024 12:30 PM EST Appointment [facility] - [place]O [id number] [place] [address] [place] [address] [place] [address] EUS (LINEAR) W/FNA [facility] - [facility] Comment on above: EUS (LINEAR) W/FNA Start: 12-19-2023 End: 12-19-2023 Patient encounter procedure 12/19/2023 11:40 AM EDT Office Visit Gastroenterology [address] [place] [address] [place] [address] [place] [address] discuss EUS Gastroenterology Comment on above: discuss EUS Start: 11-26-2023 Patient referral [facility] Work Phone: Start: 11-11-2023 Covid-19 Vaccine ( season) Covid-19 Vaccine () [facility] Start: 11-11-2023 Covid-19 Vaccine () Covid-19 Vaccine () [facility] Start: 11-11-2023 Influenza vaccination [facility] Start: 07-26-2023 Patient referral [facility] Work Phone: Start: 06-24-2023 Patient referral [facility] Work Phone: Start: 06-22-2023 Bacteria identified in Urine by Culture [facility] Start: 03-12-2023 Advance Directive Discussion Advance Directive Discussion [facility] Start: 03-12-2023 Annual Wellness Visit (Medicare Advantage) Annual Wellness Visit (Medicare Advantage) [facility] Start: 01-11-2023 Bacteria identified in Urine by Culture [facility] Start: 11-10-2022 COVID-19 Vaccine () COVID-19 Vaccine () [facility] Start: 01-20-2022 [facility] Start: 03-28-2021 COVID-19 Vaccine (4 - Pfizer series) COVID-19 Vaccine (4 - Pfizer series) [facility] Start: 09-18-2020 Pneumococcal Vaccine: 65+ (3 of 3 - PPSV23 or PCV20) Pneumococcal Vaccine: 65+ (3 of 3 - PPSV23 or PCV20) [facility] Start: 09-18-2020 Pneumococcal Vaccine: 65+ Years (3 - PPSV23 or PCV20) Pneumococcal Vaccine: 65+ Years (3 - PPSV23 or PCV20) [facility] Start: 06-03-2020 Pneumococcal 65+ years Vaccine (2 of 2 - PCV) Pneumococcal 65+ years Vaccine (2 of 2 - PCV) [facility] Start: 06-03-2020 Pneumococcal Vaccine: 65+ (1 of 1 - PCV) Pneumococcal Vaccine: 65+ (1 of 1 - PCV) [facility] Start: 06-03-2020 Pneumococcal Vaccine: 65+ Years (2 - PCV) Pneumococcal Vaccine: 65+ Years (2 - PCV) [facility] Start: 06-03-2020 Screening for osteoporosis Bone Density Screening [facility] Start: 12-13-2016 Shingles vaccine (2 of 3) Shingles vaccine (2 of 3) [facility] Start: 12-13-2016 Shingrix Vaccine (2 of 3) Shingrix Vaccine (2 of 3) [facility] Start: 12-13-2016 Zoster Vaccines (2 of 3) Zoster Vaccines (2 of 3) [facility] Start: 12-08-2016 DTaP/Tdap/Td Vaccines (1 - Tdap) DTaP/Tdap/Td Vaccines (1 - Tdap) [facility] Start: 12-08-2016 Urine microalbumin profile DTaP,Tdap,Td Vaccine (1 - Tdap) [facility] Start: 2015 Hepatitis B Vaccines (1 of 3 - Risk 3-dose series) Hepatitis B Vaccines (1 of 3 - Risk 3-dose series) [facility] Start: 2015 Respiratory Syncytial Virus (RSV) or age 60 yrs+ (1 - 1-dose 60+ series) Respiratory Syncytial Virus (RSV) or age 60 yrs+ (1 - 1-dose 60+ series) [facility] Start: 06-03-2010 Screening for osteoporosis DEXA (modify frequency per FRAX score) [facility] Start: 06-03-2005 Screening for malignant neoplasm of breast Breast cancer screen [facility] Start: 06-03-2005 Shingrix Vaccine (1 of 2) Shingrix Vaccine (1 of 2) [facility] Start: 06-03-2000 Lipid panel Lipid Screening [facility] Start: 06-03-2000 Screening for malignant neoplasm of colon [facility] Start: 1995 Lipid panel Lipids [facility] Start: 1995 Screening for malignant neoplasm of breast [facility] Start: 06-03-1977 DTaP/Tdap/Td Vaccines (1 - Tdap) DTaP/Tdap/Td Vaccines (1 - Tdap) [facility] Start: 06-03-1974 DTaP/Tdap/Td vaccine (1 - Tdap) DTaP/Tdap/Td vaccine (1 - Tdap) [facility] Start: 06-03-1974 Hepatitis A Vaccines (1 of 2 - Risk 2-dose series) Hepatitis A Vaccines (1 of 2 - Risk 2-dose series) [facility] Start: 06-03-1974 Urine microalbumin profile DTaP,Tdap,Td Vaccine (1 - Tdap) [facility] Start: 06-03-1973 Anxiety Screening Anxiety Screening [facility] Start: 06-03-1973 Depression Screening Depression Screening [facility] Start: 06-03-1973 Diabetes mellitus screening Diabetes Screening [facility] Start: 06-03-1973 Hepatitis C screening [facility] Start: 1967 Depression Screen Depression Screen [facility] Start: 1955 Lipid panel Lipid Panel [facility] Start: 1955 Medicare Annual Wellness Visit Medicare Annual Wellness Visit (AWV) [facility] Start: 1955 Screening for malignant neoplasm of colon [facility] Start: 1955 Screening for osteoporosis Bone Density Scan [facility] Start: 1955 Yearly Adult Physical Yearly Adult Physical [facility] Atopobium vaginae DN A [Presence] in Vaginal fluid by JOSH with probe detection [facility] Bacteria identified in Urine by Culture [facility] Bacterial vaginosis associated bacterium 2 DNA [Presence] in Vaginal fluid by JOSH with probe detection [facility] End: 12-18-2024 EGD - THERAPEUTIC, EUS, OR TUBE INTERVENTIONS EGD - THERAPEUTIC, EUS, OR TUBE INTERVENTIONS Endoscopy Routine Pancreatic cyst 1 Occurrences starting 12/19/2023 until 12/18/2024 [facility] Work Phone: Comment on above: 1 Occurrences starting 12/19/2023 until 12/18/2024 Megasphaera sp type 1 DNA [Presence] in Vaginal fluid by JOSH with probe detection [facility] Patient Education Colitis Hemorr hoids (DC) [facility] Work Phone: Patient referral [facility] Work Phone: End: 06-15-2023 Perq vertebroplasty uni/bi injx cervicothoracic [facility] Work Phone: Comment on above: 1 Occurrences starting 06/15/2023 until 06/15/2023 Study Interpretation of outside study MR transfer of outside films Imaging Routine 04/19/2023 11:05 AM EST [facility] Service Area Work Phone: End: 06-15-2023 Vertebroplasty each addl cervicothor/lumbosacral [facility] Comment on above: 1 Occurrences starting 06/15/2023 until 06/15/2023 [facility] Immunizations Immunization Date Immunization Notes Care Provider Fa [facility] 10-24-2022 Flu vaccine, quadrivalent, high-dose, preservative free, age 65y+ (FLUZONE) Libby Muñoz PA-C Work Phone: [facility] Work Phone: 10-24-2022 influenza virus vaccine, unspecified formulation Everett Dunlap MD Work Phone: [facility] 12-24-2021 influenza, high dose seasonal, preservative-free Libby Muñoz PA-C Work Phone: [facility] Work Phone: 11-28-2021 influenza virus vaccine, split virus (incl. purified surface antigen) Nettie Iqbal Other [facility] [email or web address] Other 11-28-2021 influenza virus vaccine, unspecified formulation [facility] 11-28-2021 Influenza, Seasonal, Quadrivalent, Adjuvanted Libby Muñoz PA-C Work Phone: [facility] Work Phone: 01-31-2021 COVID-19 mRNA, Comirnaty (Pfizer) DO [employer] Work Phone: [facility] 12-15-2020 influenza virus vaccine, split virus (incl. purified surface antigen) Nettie Iqbal Other [facility] [employer] Other 12-15-2020 influenza virus vaccine, unspecified formulation [facility] 12-15-2020 Seasonal trivalent influenza vaccine, adjuvanted, preservative free Libby Muñoz PA-C Work Phone: [facility] Work Phone: 07-30-2020 COVID-19 mRNA, Comirnaty (Pfizer) DO [employer] Work Phone: [facility] 07-09-2020 COVID-19 mRNA, Comirnaty (Pfizer) DO [employer] Work Phone: [facility] 12-26-2019 influenza virus vaccine, split virus (incl. purified surface antigen) Nettie Iqbal Other [employer] [email or web address] Other 12-26-2019 influenza virus vaccine, unspecified formulation [facility] 09-19-2019 pneumococcal conjuga te vaccine, 13 valent Nettie Iqbal Other [facility] 01-29-2019 Influenza, injectabl e, Madin Kaylah Canine Kidney, preservative free, quadrivalent Libby Muñoz PA-C Work Phone: [facility] Work Phone: 01-07-2018 influenza virus vaccine, split virus (incl. purified surface antigen) Nettie Iqbal Other [facility] [employer] Other 01-07-2018 influenza virus vaccine, unspecified formulation [facility] 01-07-2018 Influenza, injectabl e, Madin Kaylah Canine Kidney, quadrivalent with preservative Libby Muñoz PA-C Work Phone: [facility] Work Phone: 12-07-2016 influenza, seasonal, injectable Libby Muñoz PA-C Work Phone: [facility] Work Phone: 12-07-2016 tetanus and diphther ia toxoids, adsorbed, preservative free, for adult use (5 Lf of tetanus toxoid and 2 Lf of diphtheria toxoid) Nettie Iqbal Other [facility] 10-18-2016 zoster vaccine, live Libby Muñoz PA-C Work Phone: [facility] Work Phone: 04-24-2016 zoster vaccine, live Nettie Iqbal Other [facility] 12-10-2013 influenza, injectabl e, madin kaylah canine kidney, preservative free Libby Muñoz PA-C Work Phone: [facility] Work Phone: 01-18-2013 pneumococcal polysaccharide vaccine, 23 valent Nettie Iqbal Other [facility] 10-25-2011 pneumococcal polysaccharide vaccine, 23 valent Libby Muñoz PA-C Work Phone: [facility] Work Phone: 01-10-2005 pneumococcal polysaccharide vaccine, 23 valent Janna Pina Other [facility] Other 02-05-2001 pneumococcal polysaccharide vaccine, 23 valent Libby Muñoz PA-C Work Phone: [facility] Work Phone: Payers Date Payer Category Payer Unknown SELF FUNDED SELF FUNDED [id number] 2022-Present [address] [place] [address] [id number] 2022 Self-pay [id number] 2022 Medicare [id number] [id number] 1959 Medicare [id number] [id number] 1955 Unknown [id number] 2.16.840.1.987954.3.579.2.593 1955 Unknown [id number] 2.16.840.1.649422.3.579.2.593 1955 Unknown [id number] 2.16.840.1.338696.3.579.2.593 1955 Unknown [id number] 2.16.840.1.934806.3.579.2.593 1955 Unknown [id number] 2.16.840.1.914704.3.579.2.593 1955 Unknown [id number] 2.16.840.1.581701.3.579.2.593 1955 Unknown [id number] 2.16.840.1.272385.3.579.2.593 1955 Unknown [id number] 2.16.840.1.972566.3.579.2.593 1955 Unknown [id number] 2.16.840.1.278900.3.579.2.593 1955 Unknown [id number] 2.16.840.1.035927.3.579.2.593 1955 Unknown [id number] 2.16.840.1.764206.3.579.2.593 1955 Unknown [id number] 2.16.840.1.379435.3.579.2.593 1955 Unknown [id number] 2.16.840.1.061864.3.579.2.593 1955 Unknown [id number] 2.16.840.1.603330.3.579.2.593 1955 Unknown [id number] 2.16840.1.988228.3.579.2.593 1955 Unknown [id number] 2.840.1.142782.3.579.2.593 1955 Unknown [id number] 2.16.840.1.729775.3.579.2.727 1955 Unknown [id number] 2.16840.1.225859.3.579.2.125 9 1955 Unknown [id number] 2.16840.1.225508.3.579.2.125 9 1955 Unknown [id number] 2.16840.1.671798.3.579.2.125 9 1955 Unknown [id number] 2.16.840.1.400481.3.579.2.173 1955 Unknown [id number] 2.16840.1.851798.3.579.2.182 Medicare Medicare [id number] Medicare [id number] 2.840.1.158020.19 Unknown [id number] 2.16840.1.073558.3.579.2.531 Unknown [id number] 2.16.840.1.367402.3.579.2.531 Unknown [id number] 2.16.840.1.349353.3.579.2.531 Unknown [id number] 2.16.840.1.937020.3.579.2.531 Social History Date Type Detail Facility Unknown if ever smoked [facility] Other Start: 06-15-2023 End: 12-19-2023 [facility] Assigned At [facility] Start: 01-20-2022 End: 02-12-2022 Tobacco smoking status NHIS Ex-smoker (finding) [facility] Start: 1955 Sex Assigned At Female [facility] Tobacco smoking stat us DCIS Tobacco smoking consumption unknown [facility] Work Phone: Start: 12-17-2022 Gender identity Identifies as female gender (finding) [facility] Work Phone: Start: 12-17-2022 Sexual orientation Heterosexual (finding) [facility] Work Phone: Tobacco smoking status No Smokin g Status Entered [facility] Start: 08-11-2023 History of tobacco use [facility] [place] History of tobacco use Cigarette Smoker [employer] Start: 06-15-2023 End: 12-19-2023 History of Social function [employer] Start: 1955 Sex Assigned At Not on file [facility] Start: 12-19-2023 Tobacco smoking status DCIS Smokes tobacco daily [facility] Start: 12-19-2023 Tobacco use and exposure Smokeless tobacco non-user [facility] Start: 12-19-2023 Alcoholic beverage intake Ex-drinker (finding) [facility] National Score (1-10 0), lower number is lower risk 63 [facility] Medical Equipment Procedure Code Equipment Code Equipment Origin al Text Equipment Identifier Dates Kyphoplasty Orthopaedic ceme nt, non-medicated [id number] FDA Start: 06-24-2019 Cement Bne 20 Gm Hi Visc Radiopaque Vertaplex Hv - [id number] Start: 06-15-2023 Comment on above: Description: Thoraci c 11 & thoracic 12 Goals Date Patient Goal Desired Activity /State Clinical Notes 12-07-2020 to 12-19-2023 Everett Dunlap MD - 12/19/2023 11:40 AM EDEverett Higgins MD - 12/19/2023 11:40 AM EDTTelephone Encounter - Beth Summers - 12/04/2023 10:02 AM Carolina Tang RN - 06/15/2023 2:40 PM EDTAttachments Note Date & Type Note Facility 12-19-2023 History and physical note Images from the original note were not included. Consultation requested by Dr. Horacio Erwin for an opinion regarding pancreatic lesion. My final recommendations will be communicated back to the requesting physician by way of shared medical record or fax. REASON FOR VISIT: Pancreatic cyst HPI: Afia Gutierres is a 68 year old female who presents on the request of Dr. Erwin for evaluation of pancreatic cyst. She has chronic left upper quadrant pain for the last 4-5 years recommend the patient's 24-hour a day pain. Complain of nausea but no vomiting. She lost 60 pounds in 2019 over 2 months. But her weight is stable now. MRCP 11/02/2023 described 6 mm cyst adjacent to the pancreatic duct within the head of the pancreas. She does not have diabetes. History of pneumothorax in the past. Status post cholecystectomy. She still smokes cigarettes approximately half pack per day. Does not drink alcohol. She is a and has 1 child who was present with her during this office visit. 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 Previous work up includes: 11/02/2023 MRCP: ABDOMEN: Liver: Within normal limits. Bile Ducts: [...] is evidence of previous vertebroplasty at L2. IMPRESSION: There is a 6 mm T2 hyperintense nonenhancing cyst adjacent to the pancreatic duct within the head of the pancreas. This is similar to that seen on the prior exam. This may be sequelae of prior pancreatitis (a small pseudocyst) or a cystic neoplasm such as an IPMN. There are uncomplicated colonic diverticula. 06/13/2023 Labs: CBC, LFT's and INR normal. ALLERGIES Allergen Reactions Cefdinir Other: See Comments Ibuprofen Unknown Nsaids (Non-Steroid* Other: See Comments Other Reaction(s): diarrhea, itching and rash [id number]-[id number]-Gev Red* Unknown Other Reaction(s): Unknown Sulfamethoxazole-Tr* Unknown Zoledronic Acid Other: See Comments History reviewed. No pertinent past medical history. PAST SURGICAL HISTORY Procedure Laterality Date COLONOSCOPY SCREENING FAMILY HISTORY Problem Relation Age of Onset Crohn's Disease Father Colon Cancer No Family History Social History Tobacco Use Smoking status: Every Day Types: Cigarettes Smokeless tobacco: Never Vaping Use Vaping status: Never Used Substance Use Topics Alcohol use: Not Currently Drug use: Yes Types: Marijuana Comment: GUMMIES AT BEDTIME Current Outpatient Medications Medication Sig albuterol (PROVENTIL) 2.5 mg /3 mL (0.083 %) nebulizer solution Every 6 hours baclofen 20 mg tablet Take 20 mg by mouth every 6 hours as needed. calcium carbonate (OS-BINA 500) 500 mg calcium (1,250 mg) tablet once daily. cholecalciferol (VITAMIN D3) 1,000 unit tab tablet 2,000 Units. dicyclomine (BENTYL) 20 mg tablet four times daily. docusate sodium (COLACE) 100 mg capsule two times a day. escitalopram oxalate (LEXAPRO) 10 mg tablet one time only. HYDROcodone-acetaminophen (NORCO) 5-325 mg per tablet .COMPLEX hydrOXYzine pamoate (VISTARIL) 25 mg capsule Take by mouth. Ibandronate 150 mg tablet .COMPLEX linaCLOtide (LINZESS) 290 mcg capsule once daily. omeprazole (PRILOSEC) 40 mg capsule once daily. pregabalin (LYRICA) 150 mg capsule Take 150 mg by mouth two times a day. traZODone (DESYREL) 150 mg tablet Take 200 mg by mouth daily at bedtime. No current facility-administered medications for this visit. REVIEW OF SYSTEMS: PAIN ASSESSMENT: Negative for pain, history of chronic pain, or current treatment for a chronic pain condition. GENERAL: No weight loss, malaise or fevers HEENT: Negative for frequent or significant headaches, No changes in hearing or vision, no nose bleeds or other nasal problems NECK: Negative for lumps, goiter, pain and significant neck swelling RESPIRATORY: Negative for cough, hemoptysis, wheezing, COPD, dyspnea or shortness of breath CARDIOVASCULAR: Negative for chest pain, leg swelling, hypertension, CHF or palpitations GI: No nausea, vomiting, or diarrhea : No history of dysuria, frequency or incontinence MUSCULOSKELETAL: Negative for joint pain or swelling, back pain or muscle pain SKIN: Negative for lesions, rash, and itching PSYCH: Negative for sleep disturbance, mood disorder and recent psychosocial stressors HEMATOLOGY/LYMPHOLOGY: Negative for prolonged bleeding, bruising easily or swollen nodes ENDOCRINE: Negative for cold or heat intolerance, polyuria, polydipsia and goiter NEURO: No history of headaches, syncope, paralysis, seizures or tremors PHYSICAL EXAMINATION: BP 116/60 Pulse 75 Wt 105 lb 13.1 oz (48.0kg) General appearance: Well appearing, alert, in no acute distress, well-hydrated, well nourished. Skin: Skin color, texture, turgor normal, no suspicious rashes or lesions Head: Normocephalic, no masses, lesions, tenderness or abnormalities Eyes: Anicteric sclera. Pupils are equally round and reactive to light. Extraocular movements are intact. Nose/Sinuses: Nares normal, septum midline, mucosa normal, no drainage or sinus tenderness Oropharynx: Lips, mucosa, and tongue normal, teeth and gums normal, oropharynx normal Neck: Supple, no adenopathy; thyroid symmetric, normal size, no bruits Lungs: Lungs clear to auscultation. No wheezing, rhonchi, rales Heart: RRR without murmur, gallop, or rubs. No ectopy Abdomen: Normal abdominal exam, Abdomen soft, non-tender. Bowel sounds normal. No masses, organomegaly Extremities: No deformities, edema, skin discoloration, clubbing or cyanosis. Good capillary refill. Musculoskeletal: No joint swelling, deformity, or tenderness Peripheral pulses: Normal Neuro: Gait normal. ASSESSMENT/PLAN: 1. Chronic LUQ pain - ICD9: 789.02, 338.29, ICD10: R10.12, G89.29 (primary diagnosis) The exact etiology of her chronic left lower quadrant pain is not clear. No recent EGD or colonoscopy done by Dr. Erwin. [facility] 2. Weight loss - ICD9: 783.21, ICD10: R63.4 Lost 60 pound 4 years ago over 2 months. But weight has been stable now. 3. Pancreatic cyst - ICD9: 577.2, ICD10: K86.2 6 mm pancreatic cyst in the head of the pancreas adjacent to the pancreatic duct. Will schedule the patient for linear EUS to examine the pancreas and the cyst space she is a smoker. The procedure was explained to the patient and her son in detail including potential complications. She is scheduled 02/14/2024 at 12:30 PM, [facility]. - EGD - THERAPEUTIC, EUS, OR TUBE INTERVENTIONS 4. Family history of colon cancer in father - ICD9: V16.0, ICD10: Z80.0 5. Smoker - ICD9: 305.1, ICD10: F17.200 She smokes half pack per day for many years. Everett Dunlap MD, FACP T [facility] 12-19-2023 History and physical note Images from the original note were not included. Consultation requested by Dr. Horacio Erwin for an opinion regarding pancreatic lesion. My final recommendations will be communicated back to the requesting physician by way of shared medical record or fax. REASON FOR VISIT: Pancreatic cyst HPI: Afia R Gutierres is a 68 year old female who presents on the request of Dr. Erwin for evaluation of pancreatic cyst. She has chronic left upper quadrant pain for the last 4-5 years recommend the patient's 24-hour a day pain. Complain of nausea but no vomiting. She lost 60 pounds in 2019 over 2 months. But her weight is stable now. MRCP 11/02/2023 described 6 mm cyst adjacent to the pancreatic duct within the head of the pancreas. She does not have diabetes. History of pneumothorax in the past. Status post cholecystectomy. She still smokes cigarettes approximately half pack per day. Does not drink alcohol. She is a and has 1 child who was present with her during this office visit. 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 Previous work up includes: 11/02/2023 MRCP: ABDOMEN: Liver: Within normal limits. Bile Ducts: [...] is evidence of previous vertebroplasty at L2. IMPRESSION: There is a 6 mm T2 hyperintense nonenhancing cyst adjacent to the pancreatic duct within the head of the pancreas. This is similar to that seen on the prior exam. This may be sequelae of prior pancreatitis (a small pseudocyst) or a cystic neoplasm such as an IPMN. There are uncomplicated colonic diverticula. 06/13/2023 Labs: CBC, LFT's and INR normal. ALLERGIES Allergen Reactions Cefdinir Other: See Comments Ibuprofen Unknown Nsaids (Non-Steroid* Other: See Comments Other Reaction(s): diarrhea, itching and rash Llxivol-Uin-Pha Red* Unknown Other Reaction(s): Unknown Sulfamethoxazole-Tr* Unknown Zoledronic Acid Other: See Comments History reviewed. No pertinent past medical history. PAST SURGICAL HISTORY Procedure Laterality Date COLONOSCOPY SCREENING FAMILY HISTORY Problem Relation Age of Onset Crohn's Disease Father Colon Cancer No Family History Social History Tobacco Use Smoking status: Every Day Types: Cigarettes Smokeless tobacco: Never Vaping Use Vaping status: Never Used Substance Use Topics Alcohol use: Not Currently Drug use: Yes Types: Marijuana Comment: GUMMIES AT BEDTIME Current Outpatient Medications Medication Sig albuterol (PROVENTIL) 2.5 mg /3 mL (0.083 %) nebulizer solution Every 6 hours baclofen 20 mg tablet Take 20 mg by mouth every 6 hours as needed. calcium carbonate (OS-BINA 500) 500 mg calcium (1,250 mg) tablet once daily. cholecalciferol (VITAMIN D3) 1,000 unit tab tablet 2,000 Units. dicyclomine (BENTYL) 20 mg tablet four times daily. docusate sodium (COLACE) 100 mg capsule two times a day. escitalopram oxalate (LEXAPRO) 10 mg tablet one time only. HYDROcodone-acetaminophen (NORCO) 5-325 mg per tablet .COMPLEX hydrOXYzine pamoate (VISTARIL) 25 mg capsule Take by mouth. Ibandronate 150 mg tablet .COMPLEX linaCLOtide (LINZESS) 290 mcg capsule once daily. omeprazole (PRILOSEC) 40 mg capsule once daily. pregabalin (LYRICA) 150 mg capsule Take 150 mg by mouth two times a day. traZODone (DESYREL) 150 mg tablet Take 200 mg by mouth daily at bedtime. No current facility-administered medications for this visit. REVIEW OF SYSTEMS: PAIN ASSESSMENT: Negative for pain, history of chronic pain, or current treatment for a chronic pain condition. GENERAL: No weight loss, malaise or fevers HEENT: Negative for frequent or significant headaches, No changes in hearing or vision, no nose bleeds or other nasal problems NECK: Negative for lumps, goiter, pain and significant neck swelling RESPIRATORY: Negative for cough, hemoptysis, wheezing, COPD, dyspnea or shortness of breath CARDIOVASCULAR: Negative for chest pain, leg swelling, hypertension, CHF or palpitations GI: No nausea, vomiting, or diarrhea : No history of dysuria, frequency or incontinence MUSCULOSKELETAL: Negative for joint pain or swelling, back pain or muscle pain SKIN: Negative for lesions, rash, and itching PSYCH: Negative for sleep disturbance, mood disorder and recent psychosocial stressors HEMATOLOGY/LYMPHOLOGY: Negative for prolonged bleeding, bruising easily or swollen nodes ENDOCRINE: Negative for cold or heat intolerance, polyuria, polydipsia and goiter NEURO: No history of headaches, syncope, paralysis, seizures or tremors PHYSICAL EXAMINATION: BP 116/60 Pulse 75 Wt 105 lb 13.1 oz (48.0kg) General appearance: Well appearing, alert, in no acute distress, well-hydrated, well nourished. Skin: Skin color, texture, turgor normal, no suspicious rashes or lesions Head: Normocephalic, no masses, lesions, tenderness or abnormalities Eyes: Anicteric sclera. Pupils are equally round and reactive to light. Extraocular movements are intact. Nose/Sinuses: Nares normal, septum midline, mucosa normal, no drainage or sinus tenderness Oropharynx: Lips, mucosa, and tongue normal, teeth and gums normal, oropharynx normal Neck: Supple, no adenopathy; thyroid symmetric, normal size, no bruits Lungs: Lungs clear to auscultation. No wheezing, rhonchi, rales Heart: RRR without murmur, gallop, or rubs. No ectopy Abdomen: Normal abdominal exam, Abdomen soft, non-tender. Bowel sounds normal. No masses, organomegaly Extremities: No deformities, edema, skin discoloration, clubbing or cyanosis. Good capillary refill. Musculoskeletal: No joint swelling, deformity, or tenderness Peripheral pulses: Normal Neuro: Gait normal. ASSESSMENT/PLAN: 1. Chronic LUQ pain - ICD9: 789.02, 338.29, ICD10: R10.12, G89.29 (primary diagnosis) The exact etiology of her chronic left lower quadrant pain is not clear. No recent EGD or colonoscopy done by Dr. Erwin. She used Was transferred to [facility]. 2. Weight loss - ICD9: 783.21, ICD10: R63.4 Lost 60 pound 4 years ago over 2 months. But weight has been stable now. 3. Pancreatic cyst - ICD9: 577.2, ICD10: K86.2 6 mm pancreatic cyst in the head of the pancreas adjacent to the pancreatic duct. Will schedule the patient for linear EUS to examine the pancreas and the cyst space she is a smoker. The procedure was explained to the patient and her son in detail including potential complications. She is scheduled 02/14/2024 at 12:30 PM, [facility]. - EGD - THERAPEUTIC, EUS, OR TUBE INTERVENTIONS 4. Family history of colon cancer in father - ICD9: V16.0, ICD10: Z80.0 5. Smoker - ICD9: 305.1, ICD10: F17.200 She smokes half pack per day for many years. Everett Dunlap MD, FACP documented in this encounter [facility] 12-04-2023 Telephone encounter Note Spoke with patient. Unable to get a ride on 12/04, scheduled 12/18 Thank you Beth Summers PSS [facility] 12-04-2023 Miscellaneous Notes Spoke with patient. Unable to get a ride on 12/04, scheduled 12/18 Thank you Beth Summers PSS MRI images available for review. Schedulers, please call pt to schedule OV in pancreas clinic as indicated below. Dr. Dunlap has availability 12/05/2023. Thank you, Angela Monson, ED Awaiting MRCP images to be uploaded to [facility]. Schedule follow-up visit in my pancreas clinic in the next 1-2 months. Likely the patient does not need EUS giving stable small pancreatic cyst measuring 6 mm. Everett Dunlap MD Pt referred from Dr. Erwin for EUS for pancreas cyst. Dr. Erwin's OV note sent for scanning. Dr. Dunlap, please review and advise. Pt does not take anticoagulation. Thank you, Angela Monson RN 11/02/2023 MRCP: ABDOMEN: Liver: Within normal limits. Bile Ducts: [...] is evidence of previous vertebroplasty at L2. IMPRESSION: There is a 6 mm T2 hyperintense nonenhancing cyst adjacent to the pancreatic duct within the head of the pancreas. This is similar to that seen on the prior exam. This may be sequelae of prior pancreatitis (a small pseudocyst) or a cystic neoplasm such as an IPMN. There are uncomplicated colonic diverticula. documented in this encounter [facility] 12-03-2023 Telephone encounter Note MRI images available for review. Schedulers, please call pt to schedule OV in pancreas clinic as indicated below. Dr. Dunlap has availability 12/05/2023. Thank you, Angela Monson RN [facility] 12-02-2023 Telephone encounter Note Awaiting MRCP images to be uploaded to [facility]. Schedule follow-up visit in my pancreas clinic in the next 1-2 months. Likely the patient does not need EUS giving stable small pancreatic cyst measuring 6 mm. Everett Dunlap MD [facility] 11-30-2023 Telephone encounter Note Pt referred from Dr. Erwin for EUS for pancreas cyst. Dr. Erwin's OV note sent for scanning. Dr. Dunlap, please review and advise. Pt does not take anticoagulation. Thank you, Angela Monson RN 11/02/2023 MRCP: ABDOMEN: Liver: Within normal limits. Bile Ducts: [...] is evidence of previous vertebroplasty at L2. IMPRESSION: There is a 6 mm T2 hyperintense nonenhancing cyst adjacent to the pancreatic duct within the head of the pancreas. This is similar to that seen on the prior exam. This may be sequelae of prior pancreatitis (a small pseudocyst) or a cystic neoplasm such as an IPMN. There are uncomplicated colonic diverticula. [facility] 06-15-2023 History of Presen t illness Narrative [...] an active DRN-CC order on file at [facility]. Dr. Carbajal notified. 1222 Dr[address] Gonsalves notified pt ready to be seen. 1257 Dr. Villeda [facility], speaking to patient. Dr. Villeda aware of pt's wishes to remain DNR-CC. Also aware of bradycardia. 1300 Dr Gonsalves speaking to via phone. 1309 Dr. Villeda at [facility] for nerve block procedure. Time out performed. 1316 Nerve block performed 1324 Dr. Carbajal [facility] to discuss procedure. Risks/benefits discussed, all questions answered. 1330 Pt to Special procedures via cart for procedure. documented in this encounter [facility] 06-15-2023 Hospital Discharg e instructions April Souza RN - 06/15/2023 1:43 PM EDT Discharge [...] during normal business hours (Sunday-Sunday 8am-6pm) at [phone] and have them paged. You may also contact Dr. Carbajal office with any questions or concerns at [phone]. The following attachments cannot be sent through Care Everywhere.Vertebroplasty: Post-op (Palestinian)Sedation (Palestinian)documented in this encounter [facility] 04-11-2023 Evaluation note Encounter Date Diagnosis Assessment [...] referral for surgical evaluation for kyphoplasty at [facility]. Dr Iqbal is out of the office. [facility] Other 12-28-2023 Evaluation note* Encounter Date Diagnosis [...] and start weight bearing exercises as tolerated [facility] Other 12-19-2023 Evaluation note* Encounter Date Diagnosis [...] of the lumbar spine at the [facility]. Discussion of new versus old in which [...] T12 vertebra, initial encounter (ICD-10 - S22.080A) [facility] Other 11-20-2023 Evaluation note* Encounter Date Diagnosis Assessment Notes Treatment Notes Treatment Clinical Notes Jan, Pancreatic cyst (ICD-10 - K86.2) [facility] Other 11-17-2023 Evaluation note* Encounter Date Diagnosis Assessment Notes Treatment Notes Treatment Clinical Notes Jan, Pancreatic cyst (ICD-10 - K86.2) [facility] 11-06-2023 Evaluation note* Encounter Date Diagnosis [...] sooner. Otherwise on his schedule on 02/01 [facility] Other 10-17-2023 Evaluation note* Encounter Date Diagnosis [...] pain is adequately controlled with present prescription. [facility] Other 10-16-2023 Evaluation note* Encounter Date Diagnosis Assessment Notes Treatment Notes Treatment Clinical Notes Dec, Moderate episode of recurrent major depressive disorder (ICD-10 - F33.1) [facility] 10-09-2023 History of Present illness Narrative* [...] but prefers to have this done in [place] with Dr. Amaya as she is unable to drive to a facility. Libby Muñoz PA-C [facility]: [phone]) [phone] Evaluation note* Encounter Date Diagnosis Assessment Notes [...] and change to a portable oxygen concentrator. [facility] Other 09-14-2023 Evaluation note* Encounter Date Diagnosis [...] POC setting at 2 via nasal cannula. [facility] Other 09-11-2023 Evaluation note* Encounter Date Diagnosis Assessment Notes Treatment Notes Treatment Clinical Notes Nov, Dysuria (ICD-10 - R30.0) [facility] 08-24-2023 Evaluation note* Encounter Date Diagnosis Assessment Notes Treatment Notes Treatment Clinical Notes Oct, Fibromyalgia (ICD-10 - M79.7) [facility] Other 08-15-2023 Evaluation note* Encounter Date Diagnosis [...] Reviewed OARRS report. Continue meds and treatment. [facility] Other 07-27-2023 Evaluation note* Encounter Date Diagnosis Assessment Notes Treatment Notes Treatment Clinical Notes Sep, Diverticular disease (ICD-10 - K57.90) [facility] 07-26-2023 Evaluation note* Encounter Date Diagnosis Assessment Notes Treatment Notes Treatment Clinical Notes Sep, Lumbar spondylosis (ICD-10 - M47.816) [facility] Other 06-29-2023 Evaluation note* Encounter Date Diagnosis Assessment Notes Treatment Notes Treatment Clinical Notes Aug, Diverticular disease (ICD-10 - K57.90) Patient reports constipation and she will try linzess 290 mg prescription sent to pharmacy RTO 3 months Aug, GERD (gastroesophageal reflux disease) (ICD-10 - K21.9) Aug, Pancreas cyst (ICD-10 - K86.2) Patient is to have an MRCP [place] [facility] ordered today [facility] Other 06-28-2023 Evaluation note* Encounter Date Diagnosis Assessment Notes Treatment Notes Treatment Clinical Notes Aug, Lumbar spondylosis (ICD-10 - M47.816) [facility] 06-20-2023 Evaluation note* Encounter Date Diagnosis [...] into present EMR for review by her clinical appeals reviewer next week. [facility] Other 06-16-2023 Evaluation note* Encounter Date Diagnosis Assessment Notes Treatment Notes Treatment Clinical Notes Aug, COPD exacerbation (ICD-10 - J44.1) Discussed with patient exam and history is consistent with COPD exacerbation. Rapid COVID is negative in office. Will cover with azithromycin and prednisone burst. Continue maintenance and rescue inhaler as needed. May use Mucinex DM [id number]. Patient has follow-up with PCP next week. Advised to follow-up sooner if any rapidly increasing shortness of breath, wheezing, signs of respiratory distress. Patient verbalized understanding of treatment plan. Patient reports history of frequent yeast infections with antibiotic use. Requesting Diflucan. Dose sent. Advised should only take it develop symptoms. Patient verbalized understanding. Aug, Congestion of nasal sinus (ICD-10 - R09.81) [facility] Other 06-01-2023 Evaluation note* Encounter Date Diagnosis Assessment Notes Treatment Notes Treatment Clinical Notes Aug, Lumbar spondylosis (ICD-10 - M47.816) [facility] Other 05-25-2023 Evaluation note* Encounter Date Diagnosis Assessment Notes Treatment Notes Treatment Clinical Notes July, Chronic obstructive pulmonary disease with (acute) lower respiratory infection (ICD-10 - J44.0) Discussed prednisone could help her hip pain and her wheezing for a short term treatment July, Insomnia, idiopathic (ICD-10 - F51.01) d/c remeron start trazodone. f/u in 1 month [facility] Other 05-03-2023 Evaluation note* Encounter Date Diagnosis Assessment Notes Treatment Notes Treatment Clinical Notes July, Lumbar spondylosis (ICD-10 - M47.816) [facility] Other 04-11-2023 Evaluation note* Encounter Date Diagnosis [...] send in medication if needed. Follow-up with CLINICAL FIELD SPECIALIST if no improvement of symptoms. Immediate evaluation in ER for signs/symptoms as discussed. Patient verbalizes understanding and is agreeable with treatment plan. [facility] Other 04-07-2023 Evaluation note* Encounter Date Diagnosis [...] and ulcerations. May be worsened by Lyrica [facility] Other 03-20-2023 Evaluation note* Encounter Date Diagnosis [...] - R53.83) Healthy diet and keep active [facility] 03-03-2023 Evaluation note* Encounter Date Diagnosis Assessment Notes Treatment Notes Treatment Clinical Notes May, Lumbar spondylosis (ICD-10 - M47.816) [facility] Other 03-03-2023 Evaluation note* Encounter Date Diagnosis Assessment Notes Treatment Notes Treatment Clinical Notes May, Acute bronchitis due to other specified organisms (ICD-10 - J20.8) [facility] Other 02-28-2023 Evaluation note* Encounter Date Diagnosis [...] hours as needed for cough and dyspnea [facility] Other 02-28-2023 Evaluation note* Encounter Date Diagnosis Assessment Notes Treatment Notes Treatment Clinical Notes Apr, Chronic obstructive pulmonary disease with (acute) exacerbation (ICD-10 - J44.1) [facility] Other 02-02-2023 Evaluation note* Encounter Date Diagnosis Assessment Notes Treatment Notes Treatment Clinical Notes Apr, Lumbar spondylosis (ICD-10 - M47.816) [facility] Other 01-04-2023 Evaluation note* Encounter Date Diagnosis Assessment Notes Treatment Notes Treatment Clinical Notes Mar, Lumbar spondylosis (ICD-10 - M47.816) [facility] Other 01-03-2023 Evaluation note* Encounter Date Diagnosis Assessment Notes Treatment Notes Treatment Clinical Notes Mar, Diverticular disease (ICD-10 - K57.90) continue dicyclomine as needed. Mar, Alternating constipation and diarrhea (ICD-10 - R19.8) start metamucil gummies every day. Mar, GERD (gastroesophageal reflux disease) (ICD-10 - K21.9) patient to continue pantoprazole [facility] 11-11-2022 [facility]* Encounter Date Diagnosis Assessment Notes Treatment Notes Treatment Clinical Notes Nov, Lower abdominal pain (ICD-10 - R10.30) PATIENT STATES THAT SHE DOES HAVE BURNING. Nov, Constipation (ICD-10 - K59.00) PATIENT STATES MOVING BOWELS EVERYDAY PATIENT DID REDUCE THE DICYCLOMINE TO NEEDED WHN CONSTIPATED THIS MADE IT WORSE PATIENT IS ADVISED WE WILL START MOVANTIK [facility] Other 09-01-2022 Evaluation note* Encounter Date Diagnosis Assessment Notes Treatment Notes Treatment Clinical Notes Nov, GERD (gastroesophageal reflux disease) (ICD-10 - K21.9) [facility] Other 08-11-2022 NotePROCEDURE: XR HIP RT 2 3V W PELVIS COMPARISON: None. HISTORY: Injury of right hip region FINDINGS: BONES:No acute fracture or dislocation. Minimal degenerative osteoarthropathy of the hips SOFT TISSUES:Negative. No visible soft tissue swelling. EFFUSION:None visible. OTHER: Negative. IMPRESSION: No acute abnormality Electronically authenticated by: JANNA LAWTON Date: 2021-10-20 12:03[facility]06-27-2022 Evaluation note* Encounter Date Diagnosis Assessment [...] although I think that is less likely. [facility] Other 04-04-2022 Evaluation note* Encounter Date Diagnosis Assessment Notes Treatment Notes Treatment Clinical Notes Jun, LUQ abdominal pain (ICD-10 - R10.12) CONTINUE DICYCLOMINE 20 MG TID RTO 6-8 WEEKS Jun, Irritable bowel syndrome with diarrhea (ICD-10 - K58.0) Jun, Bloating (ICD-10 - R14.0) Jun, GERD (gastroesophageal reflux disease) (ICD-10 - K21.9) STOP OMEPRAZOLE [facility] Other 02-02-2022 Evaluation note* Encounter Date Diagnosis [...] Patient care instructions given in writting by [facility] document. [facility] Other 11-11-2021 Evaluation note* Encounter Date Diagnosis Assessment Notes Treatment Notes Treatment Clinical Notes Jan, Irritable bowel syndrome with diarrhea (ICD-10 - K58.0) OBTAIN COLONOSCOPY FROM [facility] [place] 06/2019Jan, Lower abdominal pain (ICD-10 - R10.30) STOP DICYCLOMINE PT TO REPORT PROGRESS Jan, Bloating (ICD-10 - R14.0) Jan, Rectal burning (ICD-10 - K62.89) [facility] Other 09-28-2021 Evaluation note* Encounter Date Diagnosis Assessment Notes Treatment Notes Treatment Clinical Notes Nov, Irritable bowel syndrome with diarrhea (ICD-10 - K58.0) Nov, Generalized abdominal pain (ICD-10 - R10.84) Nov, Abdominal bloating (ICD-10 - R14.0) Nov, History of ischemic colitis (ICD-10 - Z87.19) Nov, Other CT ABD /PELVIS START DICYCLOMINE 20 MG TID ROT 4-6 WEEKS Diarrhea material was printed [facility] Other Evaluation + Plan note No data available for this section [facility] evaluation noteNo InformationN[employer] Other Evaluation noteNo assessment information available [facility] Work Phone: Evaluation note* Diagnosis 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 documented in [facility] Work Phone: Evaluation note* Diagnosis Compression fracture of T12 vertebra with delayed healing, subsequent encounter Other osteoporosis with current pathological fracture, vertebra(e), initial encounter for fracture (HCC) [facility] Diagnosis Onset Date Resolution Status Anxiety acute Right femoral fracture acute UTI (urinary tract infection) acute Vertebral compression fracture acute Fibromyalgia chronic Anxiety acute COPD exacerbation resolved [facility] Work Phone: Evaluation note* Diagnosis Onset Date Resolution Status Anxiety acute COPD exacerbation resolved Fibromyalgia chronic [facility] Work Phone: Evaluation note* Diagnosis Onset Date Resolution Status COPD exacerbation resolved Anxiety acute Right femoral fracture acute UTI (urinary tract infection) acute Vertebral compression fracture acute Fibromyalgia chronic [facility] Work Phone: Evaluation note* Diagnosis Onset Date Resolution Status Anxiety acute Right femoral fracture acute UTI (urinary tract infection) acute Vertebral compression fracture acute Fibromyalgia chronic Constipation acute GERD (gastroesophageal reflux disease) acute Pancreatic lesion acute [facility] Work Phone: Evaluation note* Diagnosis Pancreatic cyst- Primary Cyst and pseudocyst of pancreas [facility] Diagnosis Chronic LUQ pain- Primary Abdominal pain, left upper quadrant Weight loss Loss of weight Pancreatic cyst Cyst and pseudocyst of pancreas Family history of colon cancer in father Smoker Tobacco use disorder [facility]* Diagnosis Onset Date Resolution Status Constipation acute GERD (gastroesophageal reflux disease) acute Pancreatic lesion acute [facility] Work Phone: History general Narrative - [...] History Hep B 1972 Hospitalization History diverticulitis [facility] Other History general Narrative - Reported* Type [...] pain in Jan 2022 - non cardiac [facility] [email or web address] Other [facility] general Narrative - Reported* Type Description Date [...] pain in Jan 2022 - non cardiac [facility] Other Hospital Discharge instructions Additional Instructions DISCHARGE [...] if you have any problems. -Office number [phone] Work Phone: Hospital Discharge instructions No data available for this section [facility] Discharge instructionsAmbulatory Orders* Referral to Gastroenterology Time Frame: 11/26/23, Location: [facility] Work Phone: Progress note No data available for this section [facility] reason for referral (narrative)* Outpatient Procedure (Routine) - Pending Review Specialty Diagnoses / Procedures Referred By Costa t Referred To Contact [facility] Diagnoses Pancreatic cyst Procedures EGD - THERAPEUTIC, EUS, OR TUBE INTERVENTIONS EGD INTRMURAL US NEEDLE ASPIRATE/[place] [address] [place] [address] [facility] [address] [place] [address] Referral ID Status Reason Start Date Expiration Date Visits Requested Visits Authorized [id number] Pending Review Auto-Generat ed Referral 12/19/2023 12/18/2024 1 1 [facility] for visit NarrativePAIN MANAGEMENT REFERRAL UPDATEPollock [email or web address] Other Chief Complaint and Reason for Visit Chief Complaint Constipation, Abdomi nal Pain Chief Complaint Vaginal discharge Chief Complaint K86.2 Chief Complaint K86.2 dysuria Chief Complaint flank pain, dysuria Z87.81 Chief Complaint 4 Wk F/U Comp Fx Amb Documentation medication review Chief Complaint 4 Wk F/U Comp Fx Amb Documentation medication review Dysuria Chief Complaint Amb Documentation medication review R30.0 mental health issues [phone] head and chest cold since wed Reason for Visit Anxiety Right femoral fracture UTI (urinary tract infection) Vertebral compression fracture Fibromyalgia Anxiety COPD exacerbation Chief Complaint mental health issues [phone] head and chest cold since wed 3 [...] Constipation GERD (gastroesophageal reflux disease) Pancreatic lesion Chief Complaint K86.2 follow up/MRI 3 month f/u Reason for Visit Constipation GERD (gastroesophageal reflux disease) Pancreatic lesion [...] fracture (HCC) Procedures IR VERTEBROPLASTY EACH ADDITIONAL WallyFitoGabbySHEILA valdez - [facility] [address] [address] Referral ID Status Reason Start Date Expiration Date Visits Re quested Visits Authorized [id number] Open 05/29/2023 05/28/2024 1 1 Specialty Diagnoses / Procedures Referred By Costa macdonald Referred To Contact Radiology Diagnoses Compression fracture of T12 vertebra with delayed healing, subsequent encounter Other osteoporosis with current pathological fracture, vertebra(e), initial encounter for fracture (HCC) Procedures IR VERTEBROPLASTY CERVICOTHORACIC Wally SHEILA Pierre - [facility] [address] [address] Referral ID Status Reason Start Date Expiration Date Visits Re quested Visits Authorized [id number] Open 05/29/2023 05/28/2024 1 1 Reason evaluate and treat f or compression fracture Diagnosis 1 Compression fracture of T11 vertebra with delayed healing, subsequent encounter (S22.080G) Referral Organization [facility] Referring Provider First Name Ana Referring Provider Last Name Kim Referring Provider Specialty Nurse Pract itioner Referred Organization [facility] Referred Address [address] [place] [address] [place],[address] Referred Provider Specialty Intervention al Radiology Referral Priority Routine Reason evaluate and treat Diagnosis 1 Compression fracture of T11 vertebra with delayed healing, subsequent encounter (S22.080G) Referral Organization [facility] Referring Provider First Name Ana Referring Provider Last Name Kim Referring Provider Specialty Nurse Pract itioner Referred Organization [facility] Referred Address [address] [place],[address] Referred Provider Specialty DME Referral Priority Routine Reason evaluate and kwasi at Diagnosis 1 Age-related osteopor osis with current pathological fracture, initial encounter (M80.00XA) Referral Organization [facility] Referring Provider First Name Ana Referring Provider Last Name Kim Referring Provider Specialty Nurse Pract itioner Referred Organization [facility] Pain Managemen t Referred Provider Christo Lobo Referred Address [address] [facility] ,[place],[address] Referred Provider Specialty Pain Medicin e Referral Priority Routine General Notes Rebeca Pleitez 11:19:46 AM >received today, patient did just have MRI ordered but has already had CT of the Lumbar spine completed. Sending p2p at this time for scheduling Reason evaluate and kwasi at Diagnosis 1 Age-related osteopor osis with current pathological fracture, initial encounter (M80.00XA) Referral Organization [facility] Referring Provider First Name Ana Referring Provider Last Name Julio Referring Provider Specialty Nurse Pract itioner Referred Organization [facility] Referred Provider Rebeca Munguia Referred Address [address] [place],[address] Referred Provider Specialty Nurse Virgil stone Referral Priority Routine General Notes Rebeca Pleitez 02:57:56 PM >received today, sending p2p at this time for scheduling Reason 01/23/23 Aleksey off ice - lumbar compression fracture - imaging at [facility] Diagnosis 1 Compression fracture of lumbar vertebra, unspecified lumbar vertebral level, initial encounter (S32.000A) Referral Organization [facility] Yovia marcell Referring Provider First Name Nettie Referring Provider Last Name Kathy Referring Provider Specialty Family [facility] Referred Organization [facility] Referred Provider Robin Flannery Referred Address ,[place], [place],[address] Referred Provider Specialty Orthopedic S urgery Referral Priority Routine Referral Appointment Date 2023-01-23 General Notes Mirna Bruce 04:32:13 PM >received today, attachments made, notes locked, referral faxed Mirna Bruce 01/22/2023 10:47:34 AM >per [facility] EPIC, pt is schedled Mirna Burce 01/24/2023 09:26:34 AM >notes scanned into chart for review. closing out referral Reason *FU 01/22 Aleksey of fice - lumbar compression fracture - imaging at [facility] Diagnosis 1 Compression fracture of lumbar vertebra, unspecified lumbar vertebral level, initial encounter (S32.000A) Referral Organization [facility] Yovia marcell Referring Provider First Name Nettie Referring Provider Last Name Kathy Referring Provider Specialty Family [facility] Referred Organization [facility] Referred Provider Robin Flannery Referred Address ,[place], [place],[address] Referred Provider Specialty Orthopedic S urgery Referral Priority Routine General Notes AvaDonnie paulinoya 04:32:13 PM >received today, attachments made, notes locked, referral faxed Additional Source Comments REASON FOR VISIT (unrecogniz ed section and content) Specialty Diagnoses / Procedures Referred By Contac t Referred To Contact Radiology Diagnoses Compression fracture of T12 vertebra with delayed healing, subsequent encounter Other osteoporosis with current pathological fracture, vertebra(e), initial encounter for fracture (HCC) Procedures IR VERTEBROPLASTY CERVICOTHORACIC Gabby Lo, SHEILA - VAULT [facility] [address] [facility] [address] [place] [id number] Referral ID Status Reason Start Date Expiration Date Visits Re quested Visits Authorized [id number] Open 05/29/2023 05/28/2024 1 1 Reason Comments Procedure Referred for EUS---> needs OV first Reason Comments New Patient Evaluation Care Teams (unrecognized sec tion and content) [...] 2023 Team Status: Active Member Role Status Dates Nettie Iqbal MD Primary Care Provider Active Start: May 28, 2023 GIL Brown Attending Provider Active Start : May 28, 2023 Team Status: Inactive Member Role Status Dates Nettie Iqbal MD Primary Care Provide r, Attending Provider Active Start: June 22, 2023 End: June 22, 2023 Team Status: Inactive Member Role Status Dates Nettie Iqbal MD Attending Provider Active St art: June 22, 2023 End: June 22, 2023 Team Status: Inactive Member Role Status Dates Phani Pruitt DO Primary Care Provider Active Kiran Amaya MD Attending Provider Active Team Status: Active Member Role Status Dates Phani Pruitt DO Primary Care Provider Active Team Status: Inactive Member Role Status Dates Vanessa Hassan SHEILA Sanford Attending Provider Active Team Status: Inactive Member Role Status Dates Kiran Amaya MD Attending Provider Active Nettie Iqbal MD Primary Care Provider Active Team Status: Inactive Member Role Status Dates Nettie Iqbal MD Attending Provider Active Team Status: Inactive Member Role Status Dates Nettie Iqbal MD Attending Provider Active [facility] Primary Care Provider Active Team Status: Inactive Member Role Status Dates Nettie Iqbal MD Primary Care Provider Active ANUSHKA Felder Attending Provider Active [employer] Relationship Specialty Start Date End Date Nettie Iqbal MD [address] [place] [phone] PCP - General Family Medicine 06/13/23 Team [...] November 26, 2023 End: November 26, 2023 [employer] Relationship Specialty Start Date End Date Nettie Iqbal MD [address] [place] [id number] PCP - General Family Medicine 11/30/23 [employer] Relationship Specialty Start Date End Date Nettie Ibqal MD [address] [place] [address] PCP - General Family Medicine 11/30/23 Team Status: Active Member Role Status Dates Nettie Iqbal MD Primary Care Provider Active Start: December 06, 2023 Sam Hare MD Attending Provider Active Start: December 06, 2023 Team Status: Active Member Role Status Dates Nettie Iqbal MD Primary Care Provider Active Start: December 12, 2023 Fidelia Purdy DO Attending Provider Active Sta rt: December 12, 2023 Team Status: Inactive Member Role Status Dates Nettie Iqbal MD Primary Care Provide r, Attending Provider Active Start: December 25, 2023 End: December 25, 2023 Goals (unrecognized section and content) Goals may be documented in a n alternate section INFORMATION SOURCE (unrecogn ized section and content) DATE CREATED AUTHOR 08/18/2022 [facility] DATE CREATED AUTHOR AUTHOR'S ORGANIZ ATION 12/27/2022 [facility] DATE CREATED AUTHOR AUTHOR'S ORGANIZ ATION 01/29/2023 [facility] DATE CREATED AUTHOR AUTHOR'S ORGANIZ ATION 06/14/2023 [facility] DATE CREATED AUTHOR AUTHOR'S ORGANIZ ATION 06/19/2023 [facility] DATE CREATED AUTHOR AUTHOR'S ORGANIZ ATION 11/05/2023 [facility] DATE CREATED AUTHOR AUTHOR'S ORGANIZ ATION 12/21/2023 [facility] Source Comments (unrecognize d section and content) In the event this informatio n is protected by the Federal Confidentiality of Alcohol and Drug Abuse Patient Records regulations: The Federal rules restrict any use of the information to criminally investigate or prosecute any alcohol or drug abuse patient.[facility] Center[facility] the event this information is protected by the Federal Confidentiality of Alcohol and Drug Abuse Patient Records regulations: The Federal rules restrict any use of the information to criminally investigate or prosecute any alcohol or drug abuse patient.[facility] FOR RECORDS PERTAINING TO PATIENTS WHO ARE [...] BE BASED ON THE PRIMARY CLINICAL RECORDS. [facility] [employer] [facility]. provides no warranty or guarantee of the accuracy or completeness of information in this document.
--- NOTE | 2024-01-03 21:46 | ED_ITS ---
HPI - Abdominal Pain General Chief Complaint: Abdominal Pain Stated Complaint: abdominal pain Time Seen by Provider: 01/03/24 21:43 Source: patient History of Present Illness HPI narrative: patient describes chronic abdominal pain. scheduled for scope via GI in [facility]. Now presents complaining of left sided abdominal pain radiating to her back and into her chest. Not short of breath. Feels nauseated. no vomiting or diarrhea or fever. no urinary complaints Related Data Home Medications ?Medication ?Instructions ?Recorded ?Confirmed albuterol sulfate 90 mcg/actuation 2 inh inhalation Q4H PRN shortness 09/06/22 01/13/23 aerosol inhaler of breath or wheezing alprazolam 0.5 mg tablet 0.5 mg PO TID 09/06/22 01/13/23 dicyclomine 20 mg tablet 20 mg PO QID 09/06/22 01/13/23 fluticasone propionate 115 2 puff inhalation Q12H 09/06/22 01/13/23 mcg-salmeterol 21 mcg/actuation HFA inhaler (Advair HFA) hydrocodone 5 mg-acetaminophen 325 1 tab PO Q6H PRN pain 09/06/22 01/13/23 mg tablet hydroxyzine HCl 25 mg tablet 25 mg PO BEDTIME PRN itching 09/06/22 01/13/23 naloxegol 12.5 mg tablet (Movantik) 12.5 mg PO DAILY 09/06/22 01/13/23 pantoprazole 40 mg tablet,delayed 40 mg PO DAILY 09/06/22 01/13/23 release trazodone 50 mg tablet 50 mg PO BEDTIME PRN sleep 09/06/22 01/13/23 linaclotide 290 mcg capsule 290 mcg PO BID 09/19/22 01/13/23 (Linzess) escitalopram oxalate 10 mg tablet 10 mg PO DAILY 01/13/23 01/13/23 (Lexapro) pregabalin 150 mg capsule (Lyrica) 150 mg PO BID 01/13/23 01/13/23 Allergies Allergy/AdvReac Type Severity Reaction Status Date / Time escitalopram (From Lexapro) Allergy Severe Muscle Pain Verified 01/03/24 20:42 sulfamethoxazole (From Allergy Mild Diarrhea Verified 11/13/22 18:22 Bactrim) trimethoprim (From Bactrim) Allergy Mild Diarrhea Verified 11/13/22 18:22 ketorolac (From Toradol) Allergy Unknown Verified 01/03/24 20:42 NSAIDS (Non-Steroidal Allergy Unknown Verified 01/03/24 20:42 Anti-Inflamma rofecoxib (From Vioxx) Allergy Unknown Verified 01/03/24 20:42 varenicline (From Chantix) Allergy Unknown Verified 01/03/24 20:42 Review of Systems ROS Status of ROS 10 or more systems reviewed and unremark able except as noted in history and below [facility] Medical History (Updated 01/04/24 @ 01:03 by Telly Bass MD) Fall ?W19.XXXA - Unspecified fall, initial encounter (ICD-10) Fracture, tibia ?S82.209A - Unspecified fracture of shaft of unspecified tibia, initial encounter for closed fracture (ICD-10) Compression fracture Compression fracture of lumbar vertebra with routine healing ?S32.000D - Wedge compression fracture of unspecified lumbar vertebra, subsequent encounter for fracture with routine healing (ICD-10) Compression fracture of thoracic vertebra with routine healing ?S22.000D - Wedge compression fracture of unspecified thoracic vertebra, subsequent encounter for fracture with routine healing (ICD-10) Dyslipidemia ?E78.5 - Hyperlipidemia, unspecified (ICD-10) Venous insufficiency ?I87.2 - Venous insufficiency (chronic) (peripheral) (ICD-10) Chronic bronchitis with productive mucopurulent cough ?J41.1 - Mucopurulent chronic bronchitis (ICD-10) Cervical spondylosis ?M47.812 - Spondylosis without myelopathy or radiculopathy, cervical region (ICD-10) Osteoporosis ?M81.0 - Age-related osteoporosis without current pathological fracture (ICD- 10) COPD (chronic obstructive pulmonary disease) ?J44.9 - Chronic obstructive pulmonary disease, unspecified (ICD-10) Hypoxia ?R09.02 - Hypoxemia (ICD-10) Thoracic spondylosis ?M47.814 - Spondylosis without myelopathy or radiculopathy, thoracic region (ICD-10) Lumbar spondylosis ?M47.816 - Spondylosis without myelopathy or radiculopathy, lumbar region (ICD-10) Pneumothorax ?J93.9 - Pneumothorax, unspecified (ICD-10) Hepatitis ?K75.9 - Inflammatory liver disease, unspecified (ICD-10) GI bleed ?K92.2 - Gastrointestinal hemorrhage, unspecified (ICD-10) Upper back pain ?M54.9 - Dorsalgia, unspecified (ICD-10) Neck pain ?M54.2 - Cervicalgia (ICD-10) Low back pain ?M54.50 - Low back pain, unspecified (ICD-10) Osteoarthritis ?M19.90 - Unspecified osteoarthritis, unspecified site (ICD-10) Anxiety ?F41.9 - Anxiety disorder, unspecified (ICD-10) TIA (transient ischemic attack) ?G45.9 - Transient cerebral ischemic attack, unspecified (ICD-10) Diverticulitis ?K57.92 - Diverticulitis of intestine, part unspecified, without perforation or abscess without bleeding (ICD-10) Irritable bowel ?K58.9 - Irritable bowel syndrome without diarrhea (ICD-10) Ulcerative colitis ?K51.90 - Ulcerative colitis, unspecified, without complications (ICD-10) Hiatal hernia ?K44.9 - Diaphragmatic hernia without obstruction or gangrene (ICD-10) Acid reflux ?K21.9 - Gastro-esophageal reflux disease without esophagitis (ICD-10) Chronic cough ?R05.3 - Chronic cough (ICD-10) Former smoker ?Z87.891 - Personal history of nicotine dependence (ICD-10) COPD (chronic obstructive pulmonary disease) ?J44.9 - Chronic obstructive pulmonary disease, unspecified (ICD-10) Emphysema lung ?J43.9 - Emphysema, unspecified (ICD-10) Angina at rest ?I20.8 - Other forms of angina pectoris (ICD-10) Surgical History H/O carpal tunnel repair ?Z98.890 - Other specified postprocedural states (ICD-10) H/O kyphoplasty ?Z98.890 - Other specified postprocedural states (ICD-10) History of hysterectomy ?Z90.710 - Acquired absence of both cervix and uterus (ICD-10) Family History (Updated 01/13/23 @ 14:30 by Alycia Alan) Mother Family history of CHF (congestive heart failure) Family history of COPD (chronic obstructive pulmonary disease) Family history of diabetes mellitus Family history of stroke Grandmother Family history of cancer Family history of diabetes mellitus Social History (Updated 01/13/23 @ 14:31 by Alycia Alan) Within the past year, how often did you have a drink containing alcohol: never Within the past year, how many standard drinks containing alcohol did you have on a typical day: 1 or 2 Within the past year, how often did you have six or more drinks on one occasion: never Total score: 0 Score interpretation: A score less than 3 is consistent with normal alcohol consumption. Smoking status: Former smoker Non-prescribed substance use: denies use Previous occupational history: retired Highest level of school completed/degree received: high school graduate Are you now , , , , never or living with a partner: In a typical week, how many times do you talk on the telephone with family, friends, or neighbors: 3 or more times per week How often do you get together with friends or relatives: 3 or more times per week How often do you attend denominational or pentecostalism services: never Do you belong to any clubs or organizations such as denominational groups unions, [employer] or athletic groups, or school groups: no Total score: 1 Score interpretation: A score of less than or equal to 1 indicates the most socially isolated. Little interest or pleasure in doing things: not at all Feeling down, depressed, or hopeless: not at all Feel stressed/tense/nervous/anxious/difficulty sleeping: not at all Do you think of yourself as: straight/heterosexual Gender Identity: female Exam Constitutional Vital Signs, click to edit/add: Last Vital Signs Pulse 79 01/03/24 23:43 Resp 20 01/03/24 23:43 BP 133/73 01/03/24 23:43 Pulse Ox 92 L 01/03/24 23:43 O2 Del Method Room Air 01/03/24 23:43 Common normals: average body habitus, oriented x3, healthy appearing, alert and well nourished General appearance: in distress (mild distress) [facility] Common normals: normocephalic and head/scalp atraumatic Respiratory Common normals: normal respiratory effort, no retractions, no use of accessory muscles and clear to auscultation bilaterally Cardio Common normals: regular rate, regular rhythm, S1 normal heart sound and S2 normal heart sound GI Common normals: Normal to inspection, nondistended, normoactive bowel sounds present and soft to palpation Other: mild Left sided abdominal tenderness. No guarding Extremity Common normals: normal to inspection and full ROM Neuro Common normals: oriented x3, CN's II-XII intact bilaterally and moves all extremities Psych Appearance: grossly normal Course Vital Signs Vital signs: Vital Signs Pulse Rate 68 01/03/24 20:36 Respiratory Rate 20 01/03/24 20:36 Blood Pressure 143/88 H 01/03/24 20:36 Pulse Oximetry 100 01/03/24 20:36 Oxygen Delivery Method Room Air 01/03/24 20:36 Pulse Rate 79 01/03/24 23:43 Respiratory Rate 20 01/03/24 23:43 Blood Pressure 133/73 01/03/24 23:43 Pulse Oximetry 92 L 01/03/24 23:43 Oxygen Delivery Method Room Air 01/03/24 23:43 MDM - Abdominal Pain MDM Narrative Medical decision making narrative: patient presents with pain of her left mid abdomen radiating into her back and even her chest. Not short of breath. d-dimer elevated. CTA chest without PE. CT abdomen with findings of ileus transverse large bowel correlate for constipation . Patient did have BM yesterday. She is feeling better. She was offered observation admission but preferred to go home . She is advised NPO for tonight. Advised to return if increasing pain. Otherwise advised to follow up with her family doctor Lab Data Labs: Lab Results 01/03/24 01/03/24 Range/Units 20:41 22:05 WBC 5.0 (4.0-11.0) 10^3/uL RBC 4.03 L (4.20-5.40) 10^6/uL Hgb 13.0 (12.0-16.0) g/dL Hct 40.1 (36.0-48.0) % MCV 99.5 H (81.0-99.0) fL MCH 32.3 (26.7-34.0) pg MCHC 32.4 (29.9-35.2) g/dL RDW 11.8 (11.0-15.0) % Plt Count 160 (150-450) 10^3/uL MPV 9.5 (9.5-13.5) fL Neut % (Auto) 47.1 (43.0-75.0) % Lymph % (Auto) 43.3 (20.5-60.0) % Reagan % (Auto) 7.4 (1.7-12.0) % Eos % (Auto) 1.6 (0.9-7.0) % Baso % (Auto) 0.4 (0.2-2.0) % Neut # (Auto) 2.4 (1.4-6.5) 10^3/uL Lymph # (Auto) 2.2 (1.2-3.8) 10^3/uL Reagan # (Auto) 0.4 (0.3-0.8) 10^3/uL Eos # (Auto) 0.1 (0.0-0.7) 10^3/uL Baso # (Auto) 0.0 (0.0-0.1) 10^3/uL Abs Immat Gran (auto) 0.01 (0.00-0.03) 10^3/uL Imm/Tot Granulo (auto) 0.2 (0.0-0.5) % D-Dimer 0.62 H* (<=0.59) mg/L FEU Sodium 142 (136-145) mmol/L Potassium 3.1 L (3.5-5.1) mmol/L Chloride 104 (98-107) mmol/L Carbon Dioxide 28.1 (21.0-32.0) mmol/L Anion Gap 13.0 BUN 14.0 (7.0-18.0) mg/dL Creatinine 0.72 (0.55-1.02) mg/dL Est GFR ( Amer) >60 (>=60 mL/min/1.73m^2) Est GFR (Non-Af Amer) >60 (>=60 mL/min/1.73m^2) BUN/Creatinine Ratio 19.4 Glucose 121 H (74-106) mg/dL Lactate 2.4 H* (0.4-2.0) mmol/L Calcium 9.2 (8.5-10.1) mg/dL Total Bilirubin 0.3 (0.2-1.0) mg/dL AST 17 (15-37) U/L ALT 17 (14-59) U/L Alkaline Phosphatase 53 (46-116) U/L Troponin I High Sens <4.0 L (4.0-51.3) pg/mL Total Protein 7.0 (6.4-8.2) g/dL Albumin 3.6 (3.4-5.0) g/dL Globulin 3.4 g/dL Albumin/Globulin Ratio 1.1 Lipase 36.0 (16.0-77.0) U/L Urine Color Yellow (YELLOW) Urine Clarity Clear (CLEAR) Urine pH 6.5 (5.0-9.0) Ur Specific [place] 1.020 (1.005-1.025) Urine Protein Negative (NEG/TRACE) mg/dL Urine Glucose (UA) Negative (NEGATIVE) mg/dL Urine Ketones Negative (NEGATIVE) mg/dL Urine Occult Blood Negative (NEGATIVE) Urine Nitrite Negative (NEGATIVE) Urine Bilirubin Negative (NEGATIVE) Urine Urobilinogen 0.2 (0.2-1.0) EU/dL Ur Leukocyte Esterase Negative (NEGATIVE) Imaging Data Abdominal x-ray: Radiologist's impression: ITS Impressions Abdomen/Pelvis CT 01/03/24 22:36 IMPRESSION: 1. Negative for acute PE. 2. No acute chest findings. There changes of chronic biapical scarring and upper lobe emphysematous disease with COPD as discussed. 3. No thoracoabdominal aorta aneurysm or dissection. Scattered atherosclerotic wall changes of the thoracic and abdominal aorta. See above. 4. Moderate to large sliding-type hernia with surgical clips along the left lateral margin or left lower lobe of lung. 5. Large bowel ileus favored within transverse colon. Correlate symptomatically and for constipation. 6. Severe osteoporosis with multiple chronic compression fractures in the thoracic and lumbar spine some of which demonstrate posttreatment changes with underlying bone cement. See above. No acute bone or joint pathology. Fractures contribute to significant dextroscoliosis of thoracic spine and increased thoracic kyphosis both of which are chronic. 7. Additional chronic and incidental findings as discussed. Electronically authenticated by: HARRIS BRYSON Date: 01/04/2024 00:12 Chest CTA 01/03/24 22:36 IMPRESSION: 1. Negative for acute PE. 2. No acute chest findings. There changes of chronic biapical scarring and upper lobe emphysematous disease with COPD as discussed. 3. No thoracoabdominal aorta aneurysm or dissection. Scattered atherosclerotic wall changes of the thoracic and abdominal aorta. See above. 4. Moderate to large sliding-type hernia with surgical clips along the left lateral margin or left lower lobe of lung. 5. Large bowel ileus favored within transverse colon. Correlate symptomatically and for constipation. 6. Severe osteoporosis with multiple chronic compression fractures in the thoracic and lumbar spine some of which demonstrate posttreatment changes with underlying bone cement. See above. No acute bone or joint pathology. Fractures contribute to significant dextroscoliosis of thoracic spine and increased thoracic kyphosis both of which are chronic. 7. Additional chronic and incidental findings as discussed. Electronically authenticated by: HARRIS BRYSON Date: 01/04/2024 00:12 Discharge Plan Discharge Chief Complaint: Abdominal Pain Clinical Impression: Ileus Patient Disposition: Home, Self-Care Prescriptions / Home Meds: No Action trazodone 50 mg tablet 50 mg PO BEDTIME PRN (Reason: sleep) hydrocodone-acetaminophen 5-325 mg tablet 1 tab PO Q6H PRN (Reason: pain) alprazolam 0.5 mg tablet 0.5 mg PO TID dicyclomine 20 mg tablet 20 mg PO QID pantoprazole 40 mg tablet,delayed release (DR/EC) 40 mg PO DAILY hydroxyzine HCl 25 mg tablet 25 mg PO BEDTIME PRN (Reason: itching) albuterol sulfate 90 mcg/actuation HFA aerosol inhaler 2 inh INHALATION Q4H PRN (Reason: shortness of breath or wheezing) fluticasone propion-salmeterol [Advair HFA] 115-21 mcg/actuation HFA aerosol inhaler 2 puff INHALATION Q12H Movantik 12.5 mg tablet 12.5 mg PO DAILY Patient Comments: NEEDED Linzess 290 mcg capsule 290 mcg PO BID escitalopram oxalate [Lexapro] 10 mg tablet 10 mg PO DAILY pregabalin [Lyrica] 150 mg capsule 150 mg PO BID Print Language: Tamazight Instructions: Ileus (ED) Additional Instructions: no intake tonight to allow bowel to rest. return if pain increases otherwise follow up with your doctor in 1-2 days for recheck Referrals: Yolanda Chavez MD [Primary Care Provider] - 1 week
[2024-01-03 22:15] LABS: Bilirubin Urine NEGATIVE (NEGATIVE); Blood Urine NEGATIVE (NEGATIVE); Clarity Urine CLEAR (CLEAR); Color Urine YELLOW (YELLOW); Glucose Urine UA NEGATIVE (NEGATIVE); Ketones Urine NEGATIVE (NEGATIVE); Leukocyte Esterase Urine NEGATIVE (NEGATIVE); Nitrite Urine NEGATIVE (NEGATIVE); Protein Urine NEGATIVE (NEG/TRACE); Urobilinogen Urine 0.2 EU/dL (0.2-1.0); pH Urine 6.5 (5.0-9.0)
[2024-01-03 22:16] LABS: Basophils Percent Auto 0.4 % (0.2-2.0); Eosinophils Absolute Auto 0.1 10^3/uL (0.0-0.7); Eosinophils Percent Auto 1.6 % (0.9-7.0); Hematocrit 40.1 % (36.0-48.0); Immature Granulocytes Abs Auto 0.01 10^3/uL (0.00-0.03); Immature Granulocytes Pct Auto 0.2 % (0.0-0.5); Lymphocytes Absolute Auto 2.2 10^3/uL (1.2-3.8); Lymphocytes Percent Auto 43.3 % (20.5-60.0); Mean Corpuscular HGB Conc 32.4 g/dL (29.9-35.2); Mean Corpuscular Hemoglobin 32.3 pg (26.7-34.0); Mean Corpuscular Volume 99.5 fL (81.0-99.0); Mean Platelet Volume 9.5 fL (9.5-13.5); Monocytes Absolute Auto 0.4 10^3/uL (0.3-0.8); Monocytes Percent Auto 7.4 % (1.7-12.0); Neutrophils Absolute Auto 2.4 10^3/uL (1.4-6.5); Neutrophils Percent Auto 47.1 % (43.0-75.0); Platelet Count 160 10^3/uL (150-450); Red Blood Count 4.03 10^6/uL (4.20-5.40); Red Cell Distribution Width 11.8 % (11.0-15.0)
[2024-01-03 22:16] LABS: Urine Microscopic Indicated NO
[2024-01-03] MEDS: PROMETHAZINE HCL 12.5 MG in 0.9 % SODIUM CHLORIDE 50 ML 202 MG IV (22:26)
[2024-01-03] MEDS: 0.9 % SODIUM CHLORIDE 1,000 ML 999 ML IV (22:27)
[2024-01-03] MEDS: FENTANYL CITRATE/PF 100 MCG/2 ML VIAL 50 MCG IV (22:27)
[2024-01-03 22:33] LABS: Alanine Aminotransferase 17 U/L (14-59); Albumin Globulin Ratio 1.1; Albumin Level 3.6 g/dL (3.4-5.0); Alkaline Phosphatase 53 U/L (46-116); Aspartate Amino Transferase 17 U/L (15-37); BUN Creatinine Ratio 19.4; Bilirubin Total 0.3 mg/dL (0.2-1.0); Calcium 9.2 mg/dL (8.5-10.1); Carbon Dioxide 28.1 mmol/L (21.0-32.0); Chloride 104 mmol/L (98-107); Estimated GFR (African America >60 (>=60 mL/min/1.73m^2); Estimated GFR (Non-African Ame >60 (>=60 mL/min/1.73m^2); Globulin 3.4 g/dL; Glucose 121 mg/dL (74-106); Potassium 3.1 mmol/L (3.5-5.1); Sodium 142 mmol/L (136-145); Troponin I High Sensitivity <4.0 pg/mL (4.0-51.3)
[2024-01-03 22:35] LABS: Lactate/Lactic Acid 2.4 mmol/L (0.4-2.0)
[2024-01-03 22:36] LABS: D Dimer 0.62 mg/L FEU (<=0.59)
--- NOTE | 2024-01-03 22:36 | CT_ITS ---
The [address] [address] Patient Name: TYRESE GUTIERRES MRN: [id number] date: 1955 Sex: F Assigned Patient Location: ER Current Patient Location: ER Accession/Order Number: [id number] Exam Date: 01/03/2024 22:56 Report Date: 01/04/2024 00:12 At the request of: ITZEL MANN Procedure: CT abdomen pelvis w con CTA OF THE CHEST WITH CONTRAST: 01/03/2024 10:56 PM EDT CTA OF THE ABDOMEN AND PELVIS WITH CONTRAST: HISTORY: Elevated d-dimer. Left-sided chest pain and abdominal pain, worsening. COPD. TECHNIQUE: Initially, thin section noncontrast images through portions of the chest were obtained for the purpose of establishing proper bolus timing of contrast. Subsequently, thin section axial CT images were obtained through the chest, abdomen and pelvis after intravenous administration of 100 cc of Omnipaque 350. To optimally assess the thoracoabdominal vasculature, the original axial data was used to create 3D volume rendered, multiplanar reformatted and/or maximum intensity projection images in various planes. The axial and reformatted data were reviewed for this report. Reformatted coronal and sagittal images of chest, abdomen and pelvis. In separate workstation, 3-D reconstructions of the thoracic aorta and upper abdominal aorta obtained. Dose reduction techniques were achieved by using automated exposure control and/or adjustment of mA and/or kV according to patient size and/or use of iterative reconstruction technique. COMPARISON: Patient had CT abdomen and pelvis obtained the same day dictated separately. Please see this report. CTA CHEST FINDINGS: Bolus opacification of the pulmonary arteries was adequate for purposes of diagnosis. There is no central, lobar, or segmental pulmonary arterial filling defect to suggest pulmonary embolus. There is chronic biapical fibrosis and scarring, right more than left. Hyperinflation of lungs with findings of COPD and upper lobe pulmonary emphysematous disease with centrilobular and paraseptal blebs in both lung apices slightly more prominent on the left. Both lungs otherwise are clear. No acute consolidation. No mass or nodule. No pneumothorax or pleural effusion. Moderate to large sliding-type hernia. Large portion of stomach intrathoracic in retrocardiac. Surgical clips along the anterior left border of the hernia sac. No hilar or mediastinal lymphadenopathy. The heart and pericardium are unremarkable. There is no pericardial effusion. Normal course and caliber thoracic aorta and arch vessels which are patent. Minor calcific plaque at aortic arch. No dissection or aneurysm. Mild eccentric soft tissue plaque in the descending thoracic aorta. Osteoporosis with multiple chronic thoracic spine compression fractures some demonstrate posttreatment changes from previous vertebroplasty or kyphoplasty. This includes a T12, T11, T9 and T8 with chronic compression fracture upper endplate of T10 as well. No acute fractures. Fractures contribute to dextroscoliosis of thoracic spine. Remaining osseous structures are unremarkable. No lytic or blastic bone lesions. CTA FINDINGS OF THE ABDOMEN AND PELVIS WITH CONTRAST: 01/03/2024 10:56 PM EDT CLINICAL HISTORY: Abdominal pain. LIVER: Normal. GALLBLADDER: Normal. BILIARY TREE: No ductal dilatation. PANCREAS: Normal. SPLEEN: Normal. ADRENALS: Normal. KIDNEYS: Normal, without urolithiasis or hydronephrosis. URINARY BLADDER: Grossly unremarkable. PELVIC STRUCTURES: Prior hysterectomy. SMALL BOWEL: No evidence of obstruction, gross mass, or inflammatory change. LARGE BOWEL: There is considerable gaseous distention of transverse colon suggesting a component of large bowel ileus. No wall thickening or intraluminal filling defect. Scattered mild colonic stool in the rectosigmoid and ascending large bowel minimally in the cecum. There is some mild scattered diverticulosis. No diverticulitis or acute colitis from other cause. APPENDIX: Prior appendectomy. LYMPH NODES: No pathologically enlarged lymph nodes identified. PERITONEUM: No intraperitoneal free air. No free intraperitoneal fluid. MESENTERY: Unremarkable. RETROPERITONEUM: The retroperitoneum is unremarkable. AORTA: Normal caliber of the aorta and iliac arteries. No dissection or aneurysm. Mild atherosclerotic calcific plaque and wall of abdominal aorta. Branch vessels including mesenteric arteries and renal arteries are patent. IVC: Unremarkable. BODY WALL: No body wall mass. OSSEOUS STRUCTURES: Severe osteoporosis.7 chronic appearing osteoporotic superior endplate compression fractures at L2 and L5 with posttreatment changes at L2. No acute fractures. No lytic or blastic bone lesion. CT/CT abdomen pelvis w con IMPRESSION: 1. Negative for acute PE. 2. No acute chest findings. There changes of chronic biapical scarring and upper lobe emphysematous disease with COPD as discussed. 3. No thoracoabdominal aorta aneurysm or dissection. Scattered atherosclerotic wall changes of the thoracic and abdominal aorta. See above. 4. Moderate to large sliding-type hernia with surgical clips along the left lateral margin or left lower lobe of lung. 5. Large bowel ileus favored within transverse colon. Correlate symptomatically and for constipation. 6. Severe osteoporosis with multiple chronic compression fractures in the thoracic and lumbar spine some of which demonstrate posttreatment changes with underlying bone cement. See above. No acute bone or joint pathology. Fractures contribute to significant dextroscoliosis of thoracic spine and increased thoracic kyphosis both of which are chronic. 7. Additional chronic and incidental findings as discussed. Electronically authenticated by: HARRIS BRYSON Date: 01/04/2024 00:12
--- NOTE | 2024-01-03 22:36 | CT_ITS ---
The [address] [address] Patient Name: TYRESE GUTIERRES MRN: [id number] date: 1955 Sex: F Assigned Patient Location: ER Current Patient Location: ER Accession/Order Number: [id number] Exam Date: 01/03/2024 22:56 Report Date: 01/04/2024 00:12 At the request of: ITZEL MANN Procedure: CT angio chest CTA OF THE CHEST WITH CONTRAST: 01/03/2024 10:56 PM EDT CTA OF THE ABDOMEN AND PELVIS WITH CONTRAST: HISTORY: Elevated d-dimer. Left-sided chest pain and abdominal pain, worsening. COPD. TECHNIQUE: Initially, thin section noncontrast images through portions of the chest were obtained for the purpose of establishing proper bolus timing of contrast. Subsequently, thin section axial CT images were obtained through the chest, abdomen and pelvis after intravenous administration of 100 cc of Omnipaque 350. To optimally assess the thoracoabdominal vasculature, the original axial data was used to create 3D volume rendered, multiplanar reformatted and/or maximum intensity projection images in various planes. The axial and reformatted data were reviewed for this report. Reformatted coronal and sagittal images of chest, abdomen and pelvis. In separate workstation, 3-D reconstructions of the thoracic aorta and upper abdominal aorta obtained. Dose reduction techniques were achieved by using automated exposure control and/or adjustment of mA and/or kV according to patient size and/or use of iterative reconstruction technique. COMPARISON: Patient had CT abdomen and pelvis obtained the same day dictated separately. Please see this report. CTA CHEST FINDINGS: Bolus opacification of the pulmonary arteries was adequate for purposes of diagnosis. There is no central, lobar, or segmental pulmonary arterial filling defect to suggest pulmonary embolus. There is chronic biapical fibrosis and scarring, right more than left. Hyperinflation of lungs with findings of COPD and upper lobe pulmonary emphysematous disease with centrilobular and paraseptal blebs in both lung apices slightly more prominent on the left. Both lungs otherwise are clear. No acute consolidation. No mass or nodule. No pneumothorax or pleural effusion. Moderate to large sliding-type hernia. Large portion of stomach intrathoracic in retrocardiac. Surgical clips along the anterior left border of the hernia sac. No hilar or mediastinal lymphadenopathy. The heart and pericardium are unremarkable. There is no pericardial effusion. Normal course and caliber thoracic aorta and arch vessels which are patent. Minor calcific plaque at aortic arch. No dissection or aneurysm. Mild eccentric soft tissue plaque in the descending thoracic aorta. Osteoporosis with multiple chronic thoracic spine compression fractures some demonstrate posttreatment changes from previous vertebroplasty or kyphoplasty. This includes a T12, T11, T9 and T8 with chronic compression fracture upper endplate of T10 as well. No acute fractures. Fractures contribute to dextroscoliosis of thoracic spine. Remaining osseous structures are unremarkable. No lytic or blastic bone lesions. CTA FINDINGS OF THE ABDOMEN AND PELVIS WITH CONTRAST: 01/03/2024 10:56 PM EDT CLINICAL HISTORY: Abdominal pain. LIVER: Normal. GALLBLADDER: Normal. BILIARY TREE: No ductal dilatation. PANCREAS: Normal. SPLEEN: Normal. ADRENALS: Normal. KIDNEYS: Normal, without urolithiasis or hydronephrosis. URINARY BLADDER: Grossly unremarkable. PELVIC STRUCTURES: Prior hysterectomy. SMALL BOWEL: No evidence of obstruction, gross mass, or inflammatory change. LARGE BOWEL: There is considerable gaseous distention of transverse colon suggesting a component of large bowel ileus. No wall thickening or intraluminal filling defect. Scattered mild colonic stool in the rectosigmoid and ascending large bowel minimally in the cecum. There is some mild scattered diverticulosis. No diverticulitis or acute colitis from other cause. APPENDIX: Prior appendectomy. LYMPH NODES: No pathologically enlarged lymph nodes identified. PERITONEUM: No intraperitoneal free air. No free intraperitoneal fluid. MESENTERY: Unremarkable. RETROPERITONEUM: The retroperitoneum is unremarkable. AORTA: Normal caliber of the aorta and iliac arteries. No dissection or aneurysm. Mild atherosclerotic calcific plaque and wall of abdominal aorta. Branch vessels including mesenteric arteries and renal arteries are patent. IVC: Unremarkable. BODY WALL: No body wall mass. OSSEOUS STRUCTURES: Severe osteoporosis.7 chronic appearing osteoporotic superior endplate compression fractures at L2 and L5 with posttreatment changes at L2. No acute fractures. No lytic or blastic bone lesion. CT/CT angio chest IMPRESSION: 1. Negative for acute PE. 2. No acute chest findings. There changes of chronic biapical scarring and upper lobe emphysematous disease with COPD as discussed. 3. No thoracoabdominal aorta aneurysm or dissection. Scattered atherosclerotic wall changes of the thoracic and abdominal aorta. See above. 4. Moderate to large sliding-type hernia with surgical clips along the left lateral margin or left lower lobe of lung. 5. Large bowel ileus favored within transverse colon. Correlate symptomatically and for constipation. 6. Severe osteoporosis with multiple chronic compression fractures in the thoracic and lumbar spine some of which demonstrate posttreatment changes with underlying bone cement. See above. No acute bone or joint pathology. Fractures contribute to significant dextroscoliosis of thoracic spine and increased thoracic kyphosis both of which are chronic. 7. Additional chronic and incidental findings as discussed. Electronically authenticated by: HARRIS BRYSON Date: 01/04/2024 00:12
[2024-01-03 23:43] VITALS: BP 133/73; PULSE 79; O2SAT 92
[2024-01-04 01:15] VITALS: BP 111/63; PULSE 64; O2SAT 97
== END 2024-01-04 01:17 | disposition home or self-care (01) ==
PROVIDERS: Emergency Provider Internal Medicine; PCP Family Medicine
DX: K56.7 Ileus, unspecified (principal); R79.1 Abnormal coagulation profile; Z87.891 Personal history of nicotine dependence
CPT/HCPCS: 36415; 71275; 74177; 80053; 81003; 83605; 83690; 84484; 85025; 85378; 96365; 96375; 99285; J2250; J3010; Q9967

== ENCOUNTER 2024-08-07 12:20 | Outpatient (OUT) | payer MEDICARE, SELFPAY ==
--- NOTE | 2024-08-07 13:14 | PM.CN ---
Consult Note: HPI Data of Consult Patient: known to practice within the last 3 years Requesting Physician: Jyamie Duncan NP Primary Care Provider: Yolanda Chavez MD Consult Narrative cc:: CC: Jaymie Duncan NP Review of Systems ROS Status of ROS 10 or more systems reviewed and unremarkable except as noted in history and below [facility] Medical History (Updated 01/04/24 @ 01:03 by Telly Bass MD) Fall ?W19.XXXA - Unspecified fall, initial encounter (ICD-10) Fracture, tibia ?S82.209A - Unspecified fracture of shaft of unspecified tibia, initial encounter for closed fracture (ICD-10) Compression fracture Compression fracture of lumbar vertebra with routine healing ?S32.000D - Wedge compression fracture of unspecified lumbar vertebra, subsequent encounter for fracture with routine healing (ICD-10) Compression fracture of thoracic vertebra with routine healing ?S22.000D - Wedge compression fracture of unspecified thoracic vertebra, subsequent encounter for fracture with routine healing (ICD-10) Dyslipidemia ?E78.5 - Hyperlipidemia, unspecified (ICD-10) Venous insufficiency ?I87.2 - Venous insufficiency (chronic) (peripheral) (ICD-10) Chronic bronchitis with productive mucopurulent cough ?J41.1 - Mucopurulent chronic bronchitis (ICD-10) Cervical spondylosis ?M47.812 - Spondylosis without myelopathy or radiculopathy, cervical region (ICD-10) Osteoporosis ?M81.0 - Age-related osteoporosis without current pathological fracture (ICD-10) COPD (chronic obstructive pulmonary disease) ?J44.9 - Chronic obstructive pulmonary disease, unspecified (ICD-10) Hypoxia ?R09.02 - Hypoxemia (ICD-10) Thoracic spondylosis ?M47.814 - Spondylosis without myelopathy or radiculopathy, thoracic region (ICD-10) Lumbar spondylosis ?M47.816 - Spondylosis without myelopathy or radiculopathy, lumbar region (ICD-10) Pneumothorax ?J93.9 - Pneumothorax, unspecified (ICD-10) Hepatitis ?K75.9 - Inflammatory liver disease, unspecified (ICD-10) GI bleed ?K92.2 - Gastrointestinal hemorrhage, unspecified (ICD-10) Upper back pain ?M54.9 - Dorsalgia, unspecified (ICD-10) Neck pain ?M54.2 - Cervicalgia (ICD-10) Low back pain ?M54.50 - Low back pain, unspecified (ICD-10) Osteoarthritis ?M19.90 - Unspecified osteoarthritis, unspecified site (ICD-10) Anxiety ?F41.9 - Anxiety disorder, unspecified (ICD-10) TIA (transient ischemic attack) ?G45.9 - Transient cerebral ischemic attack, unspecified (ICD-10) Diverticulitis ?K57.92 - Diverticulitis of intestine, part unspecified, without perforation or abscess without bleeding (ICD-10) Irritable bowel ?K58.9 - Irritable bowel syndrome without diarrhea (ICD-10) Ulcerative colitis ?K51.90 - Ulcerative colitis, unspecified, without complications (ICD-10) Hiatal hernia ?K44.9 - Diaphragmatic hernia without obstruction or gangrene (ICD-10) Acid reflux ?K21.9 - Gastro-esophageal reflux disease without esophagitis (ICD-10) Chronic cough ?R05.3 - Chronic cough (ICD-10) Former smoker ?Z87.891 - Personal history of nicotine dependence (ICD-10) COPD (chronic obstructive pulmonary disease) ?J44.9 - Chronic obstructive pulmonary disease, unspecified (ICD-10) Emphysema lung ?J43.9 - Emphysema, unspecified (ICD-10) Angina at rest ?I20.8 - Other forms of angina pectoris (ICD-10) Surgical History H/O carpal tunnel repair ?Z98.890 - Other specified postprocedural states (ICD-10) H/O kyphoplasty ?Z98.890 - Other specified postprocedural states (ICD-10) History of hysterectomy ?Z90.710 - Acquired absence of both cervix and uterus (ICD-10) Family History (Updated 01/13/23 @ 14:30 by Alycia Alan) Mother Family history of CHF (congestive heart failure) Family history of COPD (chronic obstructive pulmonary disease) Family history of diabetes mellitus Family history of stroke Grandmother Family history of cancer Family history of diabetes mellitus Social History (Updated 01/13/23 @ 14:31 by Alycia Alan) Within the past year, how often did you have a drink containing alcohol: never Within the past year, how many standard drinks containing alcohol did you have on a typical day: 1 or 2 Within the past year, how often did you have six or more drinks on one occasion: never Total score: 0 Score interpretation: A score less than 3 is consistent with normal alcohol consumption. Smoking status: Former smoker Non-prescribed substance use: denies use Previous occupational history: retired Highest level of school completed/degree received: high school graduate Are you now , , , , never or living with a partner: In a typical week, how many times do you talk on the telephone with family, friends, or neighbors: 3 or more times per week How often do you get together with friends or relatives: 3 or more times per week How often do you attend worship or baptism services: never Do you belong to any clubs or organizations such as worship groups unions, [employer] or athletic groups, or school groups: no Total score: 1 Score interpretation: A score of less than or equal to 1 indicates the most socially isolated. Little interest or pleasure in doing things: not at all Feeling down, depressed, or hopeless: not at all Feel stressed/tense/nervous/anxious/difficulty sleeping: not at all Do you think of yourself as: straight/heterosexual Gender Identity: female Meds Home Medications and Allergies Home Medications ?Medication ?Instructions ?Recorded ?Confirmed ?Type albuterol sulfate 90 mcg/actuation 2 inh inhalation Q4H PRN shortness 09/06/22 01/13/23 History aerosol inhaler of breath or wheezing alprazolam 0.5 mg tablet 0.5 mg PO TID 09/06/22 01/13/23 History dicyclomine 20 mg tablet 20 mg PO QID 09/06/22 01/13/23 History fluticasone propionate 115 2 puff inhalation Q12H 09/06/22 01/13/23 History mcg-salmeterol 21 mcg/actuation HFA inhaler (Advair HFA) hydrocodone 5 mg-acetaminophen 325 1 tab PO Q6H PRN pain 09/06/22 01/13/23 History mg tablet hydroxyzine HCl 25 mg tablet 25 mg PO BEDTIME PRN itching 09/06/22 01/13/23 History naloxegol 12.5 mg tablet (Movantik) 12.5 mg PO DAILY 09/06/22 01/13/23 History pantoprazole 40 mg tablet,delayed 40 mg PO DAILY 09/06/22 01/13/23 History release trazodone 50 mg tablet 50 mg PO BEDTIME PRN sleep 09/06/22 01/13/23 History linaclotide 290 mcg capsule 290 mcg PO BID 09/19/22 01/13/23 History (Linzess) escitalopram oxalate 10 mg tablet 10 mg PO DAILY 01/13/23 01/13/23 History (Lexapro) pregabalin 150 mg capsule (Lyrica) 150 mg PO BID 01/13/23 01/13/23 History Allergies Allergy/AdvReac Type Severity Reaction Status Date / Time escitalopram (From Lexapro) Allergy Severe Muscle Pain Verified 01/03/24 20:42 sulfamethoxazole (From Allergy Mild Diarrhea Verified 11/13/22 18:22 Bactrim) trimethoprim (From Bactrim) Allergy Mild Diarrhea Verified 11/13/22 18:22 ketorolac (From Toradol) Allergy Unknown Verified 01/03/24 20:42 NSAIDS (Non-Steroidal Allergy Unknown Verified 01/03/24 20:42 Anti-Inflamma rofecoxib (From Vioxx) Allergy Unknown Verified 01/03/24 20:42 varenicline (From Chantix) Allergy Unknown Verified 01/03/24 20:42 Exam Narrative Exam Narrative: diffuse hyperalgesias generalized tenderness noted to T6-L5, bilateral SI joint tenderness, +SLR, paresthesias to BLE, R<L Constitutional Documenting provider has reviewed patient's vital signs: yes Common normals: no apparent distress, oriented x3, healthy appearing and alert General appearance: cooperative Nutritional appearance: cachectic and thin HENMT Common normals: normocephalic, hearing grossly normal bilaterally and moist oral mucous membranes Head and scalp: normocephalic Eye Common normals: PERRL Pupil: PERRL Neck & C-Spine Common normals: full ROM General: normal visual inspection Chest Common normals: inspection of chest normal Respiratory Common normals: normal respiratory effort, no retractions and no use of accessory muscles Back & Pelvis Thoracic spine/upper back: ROM limited, pain with ROM, thoracic spinal tenderness, paraspinal muscle tenderness and kyphosis present Lumbar spine/lower back: pain with ROM, lumbar spinal tenderness, paraspinal muscle tenderness, straight leg raise positive right and straight leg raise positive left Sacroiliac joints: SI joint(s) abnormal SI joint details: tender to palpation and pain elicited by compression of iliac crest maneuver Neuro Common normals: oriented x3 Sensorium/orientation: alert Gait (neuro): assistive device used walker Psych Common normals: mental status grossly normal, thought process normal, cooperative, affect normal, speech normal and activity/motor behavior normal Speech: normal speech Thought process: normal thought process Results Additional Findings Additional findings: If on a controlled substance or opioids, I have checked an [place]AR[place] report on this patient and there are no aberrancies noted in the prescribing history.??If on a controlled substance or opioid a drug screen was completed and reviewed within the last year, and if there has not been a drug screen completed we ordered one today to monitor higher risk, state monitored pain medication use. As part of providing excellent, safe, comprehensive care, the following was completed at our patient's visit: 1. A medication reconciliation and review to ensure accurate knowledge of current/active medications, including asking our patients to inform us about any [id number] medications or herbal remedies/nutritional supplements/alternative remedies. 2. A review to specifically ensure our patients have had annual screening for screening for depression, screening for tobacco use, and screening for unhealthy alcohol use. For concerning screenings had a discussion with the patient, provided patient education, and recommended follow-up with primary care provider when appropriate. If patient noted with a risk of falling, they received education on strength, gait, and balance training to prevent future risk of falling. Portions of this note may have been carried over from the previous visit and updated as appropriate. Please note this office utilizes paper charting in addition to the electronic medical record. A list of current medications, vitals, and PMH is available there as the clinical staff outside of myself do not have access to [employer] charting during the clinic day operations. As part of providing quality comprehensive care the current medications, vitals, and PMH were reviewed in the paper chart. Assessment and Plan Assessment and Plan (1) Compression fracture of thoracic vertebra with routine healing: Qualifiers: Thoracic vertebra fracture level: unspecified thoracic vertebra Qualified Code(s): S22.000D - Wedge compression fracture of unspecified thoracic vertebra, subsequent encounter for fracture with routine healing (2) Compression fracture of lumbar vertebra with routine healing: Qualifiers: Lumbar vertebra fracture level: unspecified lumbar vertebra Qualified Code(s): S32.000D - Wedge compression fracture of unspecified lumbar vertebra, subsequent encounter for fracture with routine healing (3) Thoracic spondylosis: (4) Lumbar spondylosis: Plan 69 year old female with chronic severe upper and lower back pain, extensive hx of compressions fractures and osteoporosis. no recent imaging per pt. has failed to benefit from 6 weeks of provider guided HEP. will update thoracic xray and lumbar xray with flexion stat. update thoracic MRI with and without contrast as well as lumbar MRI with and without contrast to assess severe thoracic and lumbar pain. f/u to review imaging
== END 2024-08-07 12:21 | disposition home or self-care (01) ==
LOC: PM 12:21
PROVIDERS: PCP Family Medicine; Visit Provider Nurse Practitioner
DX: S22.000D Wedge compression fracture of unspecified thoracic vertebra, subsequent encounter for fracture with routine healing (principal); S32.000D Wedge compression fracture of unspecified lumbar vertebra, subsequent encounter for fracture with routine healing; M47.814 Spondylosis without myelopathy or radiculopathy, thoracic region; M47.816 Spondylosis without myelopathy or radiculopathy, lumbar region; M54.6 Pain in thoracic spine; M54.50 Low back pain, unspecified; M85.80 Other specified disorders of bone density and structure, unspecified site; Z98.890 Other specified postprocedural states
CPT/HCPCS: 72070; 72114; G0463

== ENCOUNTER 2024-08-07 13:24 | Outpatient (OUT) | payer MEDICARE, SELFPAY ==
--- OUTSIDE RECORDS SUMMARY | 2023-04-16 06:20 | XMS_ITS ---
Author Organization [facility] Address [address] [place] [address] Care Team Providers Care Interface Developer Name Role Phone Shaheed ROOT, Jayesh Primary Care Provider Paco Romeo Unavailable [phone] REASON FOR VISIT Right tib plat fx Medications Medication SIG (Take, Route, Fr equency, Duration) Notes Start Date End Date Status Plavix Active cyclobenzaprine Acti ve ProAir Active Lyrica Active Vicodin Active Xanax Active Encounters Encounter Location Date Provider Diagnosis [facility] [address] [place] [address] [place] [address] 04/16/2023 Paco Ward Plan Of Treatment No Information Progress Notes * TYRESE GUTIERRES RDOB: [birth year] (69 yo F)Acc No.[id number]:04/16/2023 Patient: TYRESE MATHEWS Provider: Tiff Ward MD :1955 A ge:67 Y S ex:Female Date:04/16/2023 [address] , [facility] Pcp:Jayesh Hummel MD Subjective: * Chief Complaints: * 1 . Right tib plat fx. * Medical History: * Medications: T aking Vicodin , Taking Xanax , Taking Lyrica , Taking ProAir , Taking cyclobenzaprine , Taking Plavix Objective: * Vitals: Assessment: Plan: * Treatment: Forms: * Images: * Electronic signature of Clay Ward MD on 08/07/2024 at 01:27 PM EDT Sign off status: Pending * Provider: Tiff Ward MD Date: 0 04/16/2023 Generated for Kari metcalf/Brea/Desi on: 0 08/07/2024 01:27 PM EDT
--- OUTSIDE RECORDS SUMMARY | 2023-04-30 07:40 | XMS_ITS ---
Author Organization [facility] Address [address] [place] [address] Care Team Providers Care Bi Tri Operator Name Role Phone Jayesh Hummel MD Primary Care Provider Paco Romeo Unavailable [phone] Allergies Allergen (clinical drug ingredient) Drug/Non Drug Allergy documented on EMR Reaction Allergy Type Onset Date Status paroxetine Paxil Unknown Drug Allergy Active Vioxx aseptic menengitis Drug Allergy Active Cymbalta diarrhea Drug Allergy Active Anti-inflammatorie s diarrhea, itching and rash Drug Allergy Active Toradol diarrhea Drug Allergy Active Results Component Value Reference Range Notes Home PT Reviewed date:04/30/2023 03:47:06 PM Interpretation: Performing Lab: Notes/Report: SCC- KNEE 2VIEW RIGHT [id number] Reviewed date:04/30/2023 03:47:13 PM Interpretation: Performing Lab: Notes/Report: REASON FOR VISIT Right tib plat fx Medications Medication SIG (Take, Route, Fr equency, Duration) Notes Start Date End Date Status Plavix Active cyclobenzaprine Acti ve ProAir Active Lyrica Active Xanax Active Vicodin Active Encounters Encounter Location Date Provider Diagnosis [facility] [address] [place] [address] [address] [place] [address] 04/30/2023 Paco Ward Closed disp bicondylar fracture of right tibia with routine healing S82.141D Assessments Encounter Date Diagnosis (ICD Code) Assessment Notes Treatment Notes Treatment Clinical Notes Section Notes 04/30/2023 Closed disp bicondylar fracture of right tibia with routine healing (ICD-10 - S82.141D) 04/30/2023 Other Patient is doing well and not having pain in her femoral condyle fracture or tibial plateau fracture. I recommended therapy for gait training full weightbearing. She will follow-up in 6 weeks to reassess her progress and repeat x-rays. Import medication Plan Of Treatment Treatment Notes Assessment Notes Other Patient is doing well and not having pain in her femoral condyle fracture or tibial plateau fracture. I recommended therapy for gait training full weightbearing. She will follow-up in 6 weeks to reassess her progress and repeat x-rays. Import medication Next Appt Details Follow Up: 6 Weeks, Reason: Progress Notes * TYRESE GUTIERRES RDOB: [birth year] (68 yo F)Acc No.[id number]:04/30/2023 Patient: TYRESE MATHEWS Provider: Tiff Ward MD :1955 A ge:67 Y S ex:Female Date:04/30/2023 Address:[address] [place] [address], [address] Pcp:Jayesh Hummel MD Subjective: * Chief Complaints: * R ight tib plat fx * HPI: G eneral Follow Up Information: Patient presents today for follow-up of her right tibial plateau fracture. At her last visit we had ordered an CT scan due to a subsequent fall. She has not followed up for about 3 months due to having a compression fracture of her spine and this being her priority given that it is painful. Her knee she reports has not been painful. . * Medical History: * Surgical History: H ysterectomy 1980Pneumothorax 1981Right carpal tunnel release 05/2011Left carpal tunnel release 03/2012 * Family History: N o Family History documented.. * Social History: S moking History S moking Status: Current Smoker Status Unknown. C onsume alcohol: No,?. E xercise regularly: Yes, . Positive for smoking, she smokes one pack per day. Negative for ethanol use. * Medications: T akingVicodin Xanax Lyrica ProAir cyclobenzaprine Plavix Medication List reviewed and reconciled with the patientTaking Vicodin Taking Xanax Taking Lyrica Taking ProAir Taking cyclobenzaprine Taking Plavix Medication List reviewed and reconciled with the patient * Allergies: T oradol: diarrheaPaxilAnti-inflammatories: diarrhea, itching and rashVioxx: aseptic menengitisCymbalta: diarrheano[Allergies Verified] Objective: * Vitals: * Examination: G eneral examination: E xamination today of her right knee reveals good range of motion. No tenderness to palpation throughout the tibial plateau or femoral condyles. X -ray Imaging Studies: C T scan was reviewed and almost 3 months ago showed a new fracture to her lateral femoral condyle and the fracture of her tibial plateau. Strays from today show these fractures are nonvisualized. . M RI Imaging Studies: Assessment: * Assessment: 1. C losed disp bicondylar fracture of right tibia with routine healing - S82.141D (Primary)? Plan: * Treatment: 2. O thers I maging: SCC- KNEE 2VIEW RIGHT [id number] (Performed Date - 04/30/2023) Notes: Patient is doing well and not having pain in her femoral condyle fracture or tibial plateau fracture. I recommended therapy for gait training full weightbearing. She will follow-up in 6 weeks to reassess her progress and repeat x-rays. Import medication * Procedure Codes: * Preventive Medicine: MIPS Measures: C MS139 Fall Risk S creening: N o falls in the past year.? * Follow Up: 6 Weeks Forms: * Images: * Sign off status: Completed true * Provider: Tiff Ward MD Date: 0 04/30/2023 Generated for Kari metcalf/Brea/Edgaritting on: 0 08/07/2024 01:28 PM EDT History and Physical Notes * HPI (History of Present Illness) Category Sub-Category Detail Notes Category Not es General Follow Up Information Patient presents tod ay for follow-up of her right tibial plateau fracture. At her last visit we had ordered an CT scan due to a subsequent fall. She has not followed up for about 3 months due to having a compression fracture of her spine and this being her priority given that it is painful. Her knee she reports has not been painful. Examination Category Sub-Category Detail Notes Category Not es General examination Examinat ion today of her right knee reveals good range of motion. No tenderness to palpation throughout the tibial plateau or femoral condyles. X-ray Imaging Studies CT scan was reviewed and almost 3 months ago showed a new fracture to her lateral femoral condyle and the fracture of her tibial plateau. Strays from today show these fractures are nonvisualized. MRI Imaging Studies
--- OUTSIDE RECORDS SUMMARY | 2023-06-11 07:30 | XMS_ITS ---
Author Organization [facility] Address [address] [place] [address] Care Team Providers Care Fur Mixer Operator Name Role Phone Jayesh Hummel MD Primary Care Provider Paco Romeo Unavailable [phone] Allergies Allergen (clinical drug ingredient) Drug/Non Drug Allergy documented on EMR Reaction Allergy Type Onset Date Status paroxetine Paxil Unknown Drug Allergy Active Vioxx aseptic menengitis Drug Allergy Active Cymbalta diarrhea Drug Allergy Active Anti-inflammatorie s diarrhea, itching and rash Drug Allergy Active Toradol diarrhea Drug Allergy Active Results Component Value Reference Range Notes SCC- KNEE 2VIEW RIGHT [id number] Reviewed date:07/19/2023 09:18:19 AM Interpretation: Performing Lab: Notes/Report: REASON FOR VISIT Right tibial plateau fracture Medications Medication SIG (Take, Route, Fr equency, Duration) Notes Start Date End Date Status Xanax Active Plavix Active cyclobenzaprine Acti ve ProAir Active Lyrica Active Vicodin Active Encounters Encounter Location Date Provider Diagnosis [facility] Office [address] [place] [address] [address] [place] [address] 06/11/2023 Paco Sylvia Closed disp bicondylar fracture of right tibia with routine healing S82.141D Assessments Encounter Date Diagnosis (ICD Code) Assessment Notes Treatment Notes Treatment Clinical Notes Section Notes 06/11/2023 Closed disp bicondylar fracture of right tibia with routine healing (ICD-10 - S82.141D) 06/11/2023 Other The patient's fractures of the right knee are doing well. She will continue with activities as tolerated. Follow-up here on an as-needed basis. Import medication Plan Of Treatment Treatment Notes Assessment Notes Other The patient's fractures of the right knee are doing well. She will continue with activities as tolerated. Follow-up here on an as-needed basis. Import medication Next Appt Details Follow Up: prn, Reason: Progress Notes * TYRESE GUTIERRES RDOB: [birth year] (68 yo F)Acc No.[id number]:06/11/2023 Patient: TYRESE MATHEWS Provider: Tiff Ward MD :1955 A ge:68 Y S ex:Female Date:06/11/2023 Address:[address] [place] [address], [address] , [place], [id number] Pcp:Jayesh Hummel MD Subjective: * Chief Complaints: * R ight tibial plateau fracture * HPI: G eneral Follow Up Information: Patient presents today for follow-up of her right tibial plateau fracture right distal femur epicondyle fracture. She reports she is having a kyphoplasty later this week. Her right knee has not been painful. * Medical History: * Surgical History: H [...] * Vitals: * Examination: G eneral examination: O n exam today she is able to walk with a walker without any obvious pain. She has very good knee range of motion. No tenderness to palpation. No swelling. X -ray Imaging Studies: X -rays show the slight fracture deformity to the tibial plateau which has gone on to heal. Fracture of the distal femur at the epicondyles not visualized. . M RI Imaging Studies: Assessment: * Assessment: 1. Janet resendiz disp bicondylar fracture of right tibia with routine healing - S82.141D (Primary)? Plan: * Treatment: 2. O thers Notes: The patient's fractures of the right knee are doing well. She will continue with activities as tolerated. Follow-up here on an as-needed basis. Import medication * Procedure Codes: * Follow Up: p rn Forms: * Images: * Sign off status: Completed true * Provider: Tiff Ward MD Date: 06/11/2023 Generated for Kari metcalf/Brea/Edgaritting on: 08/07/2024 01:28 PM EDT History and Physical Notes * HPI (History of Present Illness) Category Sub-Category Detail Notes Category Not es General Follow Up Information Patient presents tod ay for follow-up of her right tibial plateau fracture right distal femur epicondyle fracture. She reports she is having a kyphoplasty later this week. Her right knee has not been painful. Examination Category Sub-Category Detail Notes Category Not es General examination On exam today she is able to walk with a walker without any obvious pain. She has very good knee range of motion. No tenderness to palpation. No swelling. X-ray Imaging Studies X-rays show the slight fracture deformity to the tibial plateau which has gone on to heal. Fracture of the distal femur at the epicondyles not visualized. MRI Imaging Studies
--- OUTSIDE RECORDS SUMMARY | 2024-08-07 13:28 | XMS_ITS | Clinical Summary ---
Author Organization [facility] Address [address] [place] [id number] Care Team Providers Care Military Science Instructor Name Role Phone Yolanda Chavez MD Primary Care Provider [phone] Allergies Active Allergy Reactions Criticality Noted Date Comments Cefdinir Other: See Comments 06/22/2023 Ibuprofen Unknown 06/22/2023 Nsaids (Non-Steroidal Anti-Inflammatory Drug) Other: See Comments 05/15/2023 Other Reaction(s): diarrhea, itching and rash Xwqhwht-Yvg-Odx Reductase Inhibitors Unknown 01/23/2023 Other Reaction(s): Unknown Sulfamethoxazole-Trime thoprim Unknown 01/23/2023 Zoledronic Acid Other: See Comments 06/22/2023 Medications albuterol (PROVENTIL) 2.5 mg /3 mL (0.083 %) nebulizer solution Every 6 hours 12/29/2022 Active baclofen 20 mg tablet Take 20 mg by mouth every 6 hours as needed. 11/22/2023 Active calcium carbonate (OS-BINA 500) 500 mg calcium (1,250 mg) tablet once daily. 07/01/2019 Active cholecalciferol (VITAMIN D3) 1,000 unit tab tablet 2,000 Units. 07/01/2019 Active dicyclomine (BENTYL) 20 mg tablet four times daily. 04/14/2023 Active docusate sodium (COLACE) 100 mg capsule two times a day. 07/01/2019 Active escitalopram oxalate (LEXAPRO) 10 mg tablet one time only. 01/19/2023 Active HYDROcodone-acet aminophen (NORCO) 5-325 mg per tablet .COMPLEX 11/23/2023 Active hydrOXYzine pamoate (VISTARIL) 25 mg capsule Take by mouth. 03/10/2022 Active Ibandronate 150 mg tablet .COMPLEX 05/02/2023 Active linaCLOtide (LINZESS) 290 mcg capsule once daily. 01/08/2023 Activ e omeprazole (PRILOSEC) 40 mg capsule once daily. 11/26/2023 Active pregabalin (LYRICA) 150 mg capsule Take 150 mg by mouth two times a day. Active traZODone (DESYREL) 150 mg tablet Take 200 mg by mouth daily at bedtime. Active Active Problems No known active problems Encounters Date Type Department Care Team Description 07/15/2024 Telephone Gastroenterology [address] [place] [address] Eevrett Dunlap MD from Last 3 Months Family History Medical History Relation Comments Crohn's Disease Father Colon Cancer No Family History Relation Status Comments Father Social History Tobacco Use Types Packs/Day Years Used Date Smoking Tobacco: Every Day Cigarettes Smokeless Tobacco: Never Tobacco Cessation:Ready to Q uit: Not Asked; Counseling Given: Not Answered Alcohol Use Standard Drinks/Week Comments Not Currently 0 (1 standard drink = 0.6 oz pur e alcohol) Area Deprivation Index Answer Date Godwin rded National Score (1-100), lower number is lower ri sk 63 12/19/2023 State Score (1-10), lower number is lower risk 4 12/19/2023 Data from: https://www.neighborhoodatlas.medicine.[facility].edu/. Last address used for calculation [address] 12/19/2023 Comments Unknown Sex and Gender Information Value Date Recorded Sex Assigned at Not on file Legal Sex Female 11:54 AM EDT Gender Identity Not on file Sexual Orientation Not on file Last Filed Vital Signs Vital Sign Reading Time Taken Comments Blood Pressure 122/75 03/21/2024 11:30 AM EST Pulse 62 03/21/2024 11:30 AM EST Temperature 36.2 C (97.2 F) 03/21/2024 10:32 AM EST Respiratory Rate 18 03/21/2024 11:30 AM EST Oxygen Saturation 96% 03/21/2024 11:30 AM EST Inhaled Oxygen Concentration - - Weight 48 kg (105 lb 13.1 oz) 12/19/2023 11:14 A M EDT Height - - Body Mass Index - - Plan of Treatment Health Maintenance Due Date Last Done Comments Anxiety Screening 06/03/1973 Depression Screening 06/03/1973 Hepatitis C Screening 06/03/[address] Colonography 06/03/2000 Cologuard (FIT-DNA) 06/03/2000 Colonoscopy 06/03/2000 Colorectal Cancer Screening 06/03/2000 Fecal Occult Blood 06/03/2000 Lipid Screening 06/03/2000 Sigmoidoscopy 06/03/2000 RSV Vaccine (1 - Risk 60-74 years 1-dose series) 2015 DTaP,Tdap,Td Vaccine (1 - Tdap) 12/08/2016 7 Shingrix Vaccine (2 of 3) 12/13/2016 10/18/2016, Bone Density Screening 06/03/2020 Covid-19 Vaccine (4 - 2023-2 5 season) 2023 01/31/2021, 07/30/2020, 07/09/2020 Advance Directive Discussion 03/12/2024 Pneumococcal Vaccine: 50+ (3 of 3 - PCV20 or PCV21) 09/18/2024 09/19/2019, 01/18/2013, 10/25/2011, Additional history exists Diabetes Screening 06/12/2026 06/13/2023 Influenza Vaccine Completed 12/25/2023, , 12/24/2021, Additional history exists Procedures Procedure Name Priority Date/Time Associated Diagnosis Comments MRI OUTSIDE CD DICOM IMPORT 07/05/2024 from Last 3 Months Results * [place]-MR MRCP IMPORT (07/05/2024) Anatomical Region Laterality Modality Other 07/05/2024 Narrative 07/17/2024 2:21 AM EDT Images were obtained outside of [facility] Procedure Note Provider, [facility] - 07/17/2024 Images were obtained outside of [facility] Provider MRI Final Result from Last 3 Months Insurance [facility] MEDICARE Care Teams Military Science Instructor Relationship Specialty Start Date End Date Yolanda Chavez MD [address] [place] [id number] PCP - General Family Medicine 11/30/23
--- OUTSIDE RECORDS SUMMARY | 2024-08-07 13:28 | XMS_ITS | Encounter Summary ---
Author Organization [facility] Address [address] [place] [address] Phone Care Team Providers Care Oven Heater Helper Name Role Phone Unavailable Primary Care Provider Unavailabl e Encounter Details Date Type Department Care Team (Late st Contact Info) Description 12/01/2022 Scanned Document [facility] [address] [place] [address] Conversion, Onbase Social History Tobacco Use Types Packs/Day Years Used Date Smoking Tobacco: Never Assessed Comments Unknown Sex and Gender Information Value Date Recorded Sex Assigned at Female 12/17/2022 8:31 PM EDT Legal Sex Female 11:41 AM EDT Gender Identity Female 12/17/2022 8:31 PM EDT Sexual Orientation Straight 12/17/2022 8: 31 PM EDT documented as of this encounter Plan of Treatment Not on file documented as of this encounter Visit Diagnoses Not on filedocumented in this encounter
--- OUTSIDE RECORDS SUMMARY | 2024-08-07 13:28 | XMS_ITS | Encounter Summary ---
Author Organization [facility] Address [address] [place] [address] Care Team Providers Care Stone And Concrete Washer Name Role Phone Yolanda Chavez MD Primary Care Provider [phone] Encounter Details Date Type Department Care Team (Late st Contact Info) Description 06/18/2023 Telephone [facility] Special Procedure [address] [place] [address] Jacque Estevez RN Social History Tobacco Use Types Packs/Day Years Used Date Smoking Tobacco: Former Cigarettes Comments Unknown Sex and Gender Information Value Date Recorded Sex Assigned at Not on file Legal Sex Female 8:37 PM EST Gender Identity Not on file Sexual Orientation Not on file documented as of this encounter Progress Notes * Jacque Estevez RN - 06/18/2023 11:07 AM EDT 1104 Spoke to pt to follow up after vertebroplasty. Pt states she's feeling sore. Pt thinks she's feeling sore from taking Boniva and usually has bone and joint pain after taking. Pt denies redness, drainage or concerns. Encouraged pt to call back with any questions or concerns. documented in this encounter Plan of Treatment Not on file documented as of this encounter Visit Diagnoses Not on filedocumented in this encounter Care Teams Stone And Concrete Washer Relationship Specialty Start Date End Date Yolanda Chavez MD [address] [place] [id number] PCP - General Family Medicine 06/13/23 documented as of this encounter
--- OUTSIDE RECORDS SUMMARY | 2024-08-07 13:28 | XMS_ITS | Clinical Summary ---
Author Organization [facility] Address [address] [place] [address] Care Team Providers Care Director Of Cardiac Rehabilitation Name Role Phone Yolanda Chavez MD Primary Care Provider [phone] Allergies Active Allergy Reactions Criticality Noted Date Comments Duloxetine Hcl Diarrhea 05/15/2023 Ketorolac 10/01/2017 Ketorolac Tromethamine Diarrhea 05/15/2023 Nsaids 05/15/2023 Other Reaction(s): diarrhea, itching and rash Paroxetine Other (See Comments) 05/15/2023 Rofecoxib 10/01/2017 Other Reaction(s): aseptic menengitis Statins 01/23/2023 Other Reaction(s): Unknown Sulfamethoxazole-Trimet hoprim 01/23/2023 Varenicline 10/01/2017 Other Reaction(s): Unknown Medications HYDROcodone-richelle taminophen (NORCO) 5-325 MG per tablet Take 1 tablet by mouth every 6 hours as needed for Pain. Active ALPRAZolam (XANAX) 0.5 MG tablet Take 1 tablet by mouth 3 times daily. Active escitalopram (LEXAPRO) 10 MG tablet 3 Active traZODone (DESYREL) 50 MG tablet Take 1 tablet by mouth nightly as needed Active ibandronate (BONIVA) 150 MG tablet Take 1 tablet by mouth every 30 days 4 Active dicyclomine (BENTYL) 20 MG tablet Take 1 tablet by mouth every 6 hours 4 Active LINZESS 290 MCG CAPS capsule Take 1 capsule by mouth in the morning and at bedtime 3 Active pantoprazole (PROTONIX) 40 MG tablet Take 1 tablet by mouth daily Active pregabalin (LYRICA) 150 MG capsule Take 1 capsule by mouth 2 times daily. 3 Active albuterol (PROVENTIL) (2.5 MG/3ML) 0.083% nebulizer solution Take 3 mLs by nebulization 3 Active fluticasone-ricardo meterol (ADVAIR) 100-50 MCG/ACT AEPB diskus inhaler Inhale 1 puff into the lungs in the morning and 1 puff in the evening. Active Social History Tobacco Use Types Packs/Day Years Used Date Smoking Tobacco: Former Cigarettes Tobacco Cessation:Counseling Given: Not Answered Comments Unknown Sex and Gender Information Value Date Recorded Sex Assigned at Not on file Legal Sex Female 8:37 PM EST Gender Identity Not on file Sexual Orientation Not on file Last Filed Vital Signs Vital Sign Reading Time Taken Comments Blood Pressure 152/67 06/15/2023 3:16 PM EDT Pulse 59 06/15/2023 3:16 PM EDT Temperature 36.8 C (98.3 F) 06/15/2023 11:59 AM EDT Respiratory Rate 12 06/15/2023 3:16 PM EDT Oxygen Saturation 95% 06/15/2023 3:16 PM EDT Inhaled Oxygen Concentration - - Weight - - Height - - Body Mass Index - - Plan of Treatment Health Maintenance Due Date Last Done Comments Depression Screen 1967 Hepatitis C screen 06/03/1973 DTaP/Tdap/Td vaccine (1 - Tdap) 06/03/1974 Breast cancer screen 1995 Lipids 1995 Colonoscopy 06/03/2000 Colorectal Cancer Screen 06/03/2000 FIT/FOBT: Average risk 06/03/2000 Fecal-DNA (Cologuard): Average risk 06/03/2000 Sigmoidoscopy/CT colonography 06/03/2000 DEXA (modify frequency per FRAX score) 06/03/2010 Pneumococcal 50+ years Vaccine (2 of 2 - PCV) 10/24/2012 10/25/2011, 01/10/2005, 02/05/2001 Shingles vaccine (2 of 3) 12/13/2016 10/18/2016, COVID-19 Vaccine (4 - season) 2023 01/31/2021, 07/30/2020, 07/09/2020 Annual Wellness Visit (Medicare Advantage) 03/12/2024 Flu vaccine (Season Ended) 10/10/202410/24, 12/24/2021, 11/28/2021, Additional history exists Respiratory Syncytial Virus (RSV) or age 60 yrs+ (1 - 1-dose 75+ series) 06/03/2030 Hepatitis A vaccine Aged Out No longe r eligible based on patient's age to complete this topic Hepatitis B vaccine Aged Out No longe r eligible based on patient's age to complete this topic Hib vaccine Aged Out No longer eligi ble based on patient's age to complete this topic Meningococcal (ACWY) vaccine Aged Out No longer eligible based on patient's age to complete this topic Meningococcal B vaccine Aged Out No l onger eligible based on patient's age to complete this topic Polio vaccine Aged Out No longer elig ible based on patient's age to complete this topic Medical Devices Implanted Type Area Grails Web Application Developer Device Identifier Shelf Expiration Date Model / Serial / Lot Cement Bne 20 Gm Hi Visc Radiopaque Vertaplex Hv - [id number] Implanted:Qty: 1 on 06/15/2023 by Ricardo Carbajal MD at [facility] Cement Back JENNIFER MICHELL-WD 11/09/2024 [id number] / / [id number] Description:Thoracic 11 & th oracic 12 Insurance [facility] MEDICARE Care Teams Director Of Cardiac Rehabilitation Relationship Specialty Start Date End Date Yolanda Chavez MD [address] [place] [phone] PCP - General Family Medicine 06/13/23
--- OUTSIDE RECORDS SUMMARY | 2024-08-07 13:28 | XMS_ITS | Clinical Summary ---
Author Organization [facility] tem Address [facility] [id number] [address] [place] [address] Care Team Providers Care Senior Data Warehouse Developer Name Role Phone Raj Phani Liza HAWK Primary Care Provider [phone] Allergies Active Allergy Reactions Criticality Noted Date Comments Varenicline 10/01/2017 Ketorolac 10/01/2017 Rofecoxib 10/01/2017 Medications HYDROcodone-richelle taminophen (NORCO) 5-325 mg per tablet Take 1 tablet by mouth every 6 (six) hours as needed for pain. Active clopidogrel (PLAVIX) 75 mg tablet Take 75 mg by mouth daily. Active citalopram (CeleXA) 40 mg tablet Take 40 mg by mouth daily. Active ALPRAZolam (XANAX) 0.5 mg tablet Take 0.5 mg by mouth nightly as needed for anxiety. Active baclofen (LIORESAL) 10 mg tablet 10/30/2017 Active calcitonin, salmon, (MIACALCIN) 200 unit/actuation nasal spray 10/30/2017 Active alendronate (FOSAMAX) 70 mg tablet 11/07/2017 Active Active Problems Problem Noted Date Diagnosed Date Anxiety disorder 10/01/2017 IBS (irritable bowel syndrome) 10/01/2017 Fibromyalgia 10/01/2017 Lumbar spondylosis 10/01/2017 Depression 10/01/2017 Hematuria 10/01/2017 Impaired fasting glucose 10/01/2017 Hyperlipidemia 10/01/2017 HBV (hepatitis B virus) infection 10/01/2017 CTS (carpal tunnel syndrome) 10/01/2017 CVD (cardiovascular disease) 10/01/2017 Family History Medical History Relation Name Comments Heart disease Brother Colon cancer Father Heart disease Father Heart disease Mother Relation Name Status Comments Brother Father Mother Social History Tobacco Use Types Packs/Day Years Used Date Smoking Tobacco: Every Day Cigarettes Smokeless Tobacco: Never Tobacco Cessation:Counseling Given: Yes Childcare Answer Date Recorded Childcare Unknown 08/22/2018 Employment Answer Date Recorded Employment Unknown 08/22/2018 Purpose - Life Answer Date Recorded Purpose and direction in life Unknown Comments Unknown Sex and Gender Information Value Date Recorded Sex Assigned at Not on file Legal Sex Female 10:45 AM EDT Gender Identity Not on file Sexual Orientation Not on file Last Filed Vital Signs Vital Sign Reading Time Taken Comments Blood Pressure 136/82 11/21/2017 10:21 AM EDT Pulse - - Temperature - - Respiratory Rate - - Oxygen Saturation - - Inhaled Oxygen Concentration - - Weight 60.6 kg (133 lb 8 oz) 11/21/2017 10:21 AM EDT Height 157.5 cm (5' 2 ) 11/21/2017 10:21 AM EDT Body Mass Index 24.42 11/21/2017 10:21 AM EDT Plan of Treatment Health Maintenance Due Date Last Done Comments Depression Screening 1967 Tobacco Screening 1967 Adult BMI Screening 06/03/1973 DTaP,Tdap and Td Vaccines (1 - Tdap) 06/03/1974 Zoster (Shingles) Vaccine (1 of 2) 06/03/2005 Fall Risk Screening 06/03/2020 Colonoscopy 11/14/2022 11/14/2017 Influenza Vaccine 11/10/2024 Medical Devices Not on file Procedures Procedure Name Priority Date/Time Associated Diagnosis Comments COLONOSCOPY Routine 11/14/2017 8:53 AM EDT from Last 3 Months or Most Recently Relevant to Health Maintenance Insurance [facility] MEDICARE Care Teams Senior Data Warehouse Developer Relationship Specialty Start Date End Date Phani Anthony DO [address] [place] [address] PCP - General 09/21/17
--- OUTSIDE RECORDS SUMMARY | 2024-08-07 13:28 | XMS_ITS | Patient Health Record ---
Author Organization [facility] Address [address] [place] [address] Care Team Providers Care Staff Rn Name Role Phone Jayesh Hummel MD Primary Care Provider Paco Romeo Unavailable [phone] Allergies Allergen (clinical drug ingredient) Drug/Non Drug Allergy documented on EMR Reaction Allergy Type Onset Date Status paroxetine Paxil Unknown Drug Allergy Active Vioxx aseptic menengitis Drug Allergy Active Cymbalta diarrhea Drug Allergy Active Anti-inflammatorie s diarrhea, itching and rash Drug Allergy Active Toradol diarrhea Drug Allergy Active Reason For Referral No Information Medications Medication SIG (Take, Route, Fr equency, Duration) Notes Start Date End Date Status Xanax Active Vicodin Active Plavix Active cyclobenzaprine Acti ve ProAir Active Lyrica Active Problems Problem Type SNOMED Code ICD Code Onset Dates Problem Status W/U Status Risk Notes Problem [id number] Closed fracture of right tibial plateau, initial encounter (S82.141A) Active confirmed Problem [id number] Closed disp bicondylar fracture of right tibia with routine healing (S82.141D) Active confirmed Plan Of Treatment Pending Test Test Name Order Date DME TROM brace 12/04/2022 Insurance Providers Payer Name Payer Address Payer Phone Subscriber Number Group Number Insured Name Patient Relationship to Insured Coverage Start Date Coverage End Date Medicare [employer] [address] [address] [place] [address] [phone] [id number] TYRESE GUTIERRES Self - patient is the insured Medical (General) History Medical History History ICD Code Asthma/COPD: YES, Respiratory problems: YES, Lung Disease: YES, Cancer: No, Problems with Anesthesia: No, Malignant Hyperthermia: No, Heart Attack: No, Heart problems: No, Hypothyroidism: No, Seizures: No, Diabetes: No, GI Problems: No, Stroke: YES, Blood Clot: No, High Blood Pressure: No, Depression: YES, Mental Illness: No, Anxiety: YES, Have you ever had or presently have MRSA ? No, Hepatitis YES, Have you been in close conta ct with someone who has had MRSA within the last year? No, Pacemaker or AICD: No, Latex Allergies: No, Drug Allergies: YES, Chronic low back pain: YES Surgical History Surgery Date(Month/Year) Left carpal tunnel release 03/2012 Right carpal tunnel release 05/2011 Pneumothorax 1982 Hysterectomy 1981
--- OUTSIDE RECORDS SUMMARY | 2024-08-07 13:28 | XMS_ITS | Clinical Summary ---
Author Organization [facility] Address [address] [place] [address] Phone Care Team Providers Care Metrologist Name Role Phone Unavailable Primary Care Provider Unavailabl e Immunizations Immunization Administration Dates Next Due Flu vaccine, quadrivalent, h igh-dose, preservative free, age 65y+ (FLUZONE) 10/24/2022 Flu vaccine, quadrivalent, n o egg protein, age 6 month or greater (FLUCELVAX) 01/29/2019 Flu vaccine, trivalent, pres ervative free, HIGH-DOSE, age 65y+ (Fluzone) 12/24/2021 Flu vaccine, trivalent, pres ervative free, no egg protein, age 6 months or greater (Flucelvax) 12/10/2013 Influenza, Seasonal, Quadriv alent, Adjuvanted 11/28/2021 Influenza, injectable, MDCK, quadrivalent 2017 Influenza, seasonal, injectable 12/07/2016 Influenza, trivalent, adjuvanted 12/15/2020 Pneumococcal polysaccharide vaccine, 23-valent, age 2 years and older (PNEUMOVAX 23) 10/25/2011,01/10/2005,02/05/2001 Zoster, live 10/18/2016,04/24/2016 Social History Tobacco Use Types Packs/Day Years Used Date Smoking Tobacco: Never Assessed Comments Unknown Sex and Gender Information Value Date Recorded Sex Assigned at Female 12/17/2022 8:31 PM EDT Legal Sex Female 11:41 AM EDT Gender Identity Female 12/17/2022 8:31 PM EDT Sexual Orientation Straight 12/17/2022 8: 31 PM EDT Plan of Treatment Health Maintenance Due Date Last Done Comments Bone Density Scan 1955 CT Colonography 1955 FIT-DNA (Cologuard) 1955 FIT 1955 Lipid Panel 1955 Medicare Annual Wellness Visit (AWV) 1955 Sigmoidoscopy 1955 Diabetes Screening 06/03/1973 Hepatitis C Screening 06/03/1973 Hepatitis A Vaccines (1 of 2 - Risk 2-dose series) 06/03/1974 Mammogram 1995 Hepatitis B Vaccines (1 of 3 - Risk 3-dose series) 2015 RSV High Risk: (Elderly (60+) or Population) (1 - Risk 60-74 years 1-dose series) 2015 DTaP/Tdap/Td Vaccines (1 - Tdap) 12/08/2016 12/07/2016 Zoster Vaccines (2 of 3) 12/13/2016 10/18/2016, 04/12 COVID-19 Vaccine (4 - season) 2023 01/31/2021, 07/30/2020, 07/09/2020 Pneumococcal Vaccine (3 of 3 - PCV20 or PCV21) 09/18/2024 09/19/2019, 01/18/2013, 10/25/2011, Additional history exists Influenza Vaccine (Season Ended) 2024 10/24/2022, 12/24/2021, 11/28/2021, Additional history exists Colonoscopy 01/21/2032 01/20/2022 Colorectal Cancer Screening 01/21/2032 HIB Vaccines Aged Out No longer eligi ble based on patient's age to complete this topic HPV Vaccines Aged Out No longer eligi ble based on patient's age to complete this topic IPV Vaccines Aged Out No longer eligi ble based on patient's age to complete this topic Meningococcal Vaccine Aged Out No sincere chente eligible based on patient's age to complete this topic Rotavirus Vaccines Aged Out No longer eligible based on patient's age to complete this topic Insurance [employer] GOLD CHOICE [place] [id number] [employer] CHOICE
--- NOTE | 2024-08-07 13:48 | XR_ITS ---
The [address] [address] Patient Name: TYRESE GUTIERRES MRN: [id number] date: 1955 Sex: F Assigned Patient Location: [facility] Current Patient Location: [facility] Accession/Order Number: [id number] Exam Date: 08/07/2024 14:40 Report Date: 08/07/2024 14:44 At the request of: JEROD HARVEY NP Procedure: XR thoracic spine 2V 3 views of thoracic spine COMPARISON: 06/16/2022 HISTORY: Chronic back pain. Assessment for new fractures. Exaggerated thoracic kyphosis. Moderate scoliosis with concavity to the left, unchanged. Multilevel disc space narrowing Thoracic endplate spurs are present. Similar L2, T8 and T9 vertebroplasty changes. Interval T11 and T12 vertebral plasty changes. Stable T11, T12, T8, T9 and L2 compression fractures. No new compression fractures. Diffuse osteopenia limiting bony detail. Marked diffuse osteopenia No paraspinal abnormality seen. XR/XR thoracic spine 2V IMPRESSION: Unremarkable vertebroplasty changes multiple levels as above. Similar scoliosis. Use osteopenia. Similar degenerative changes. Similar multilevel compression deformities. No new fractures seen. Impression dictated by: Jason Stuart M.D. 08/07/2024 2:44 PM Dictation Location: [place] [address] Electronically authenticated by: [id number] Y Date: 08/07/2024 14:44
--- NOTE | 2024-08-07 13:48 | XR_ITS ---
[place] [id number] Patient Name: TYRESE GUTIERRES MRN: [id number] date: 1955 Sex: F Assigned Patient Location: [facility] Current Patient Location: [facility] Accession/Order Number: [id number] Exam Date: 08/07/2024 14:37 Report Date: 08/07/2024 14:40 At the request of: JEROD HARVEY NP Procedure: XR lumbar spine 6V w bending 8 views Lumbar Spinewith flexion and extension HISTORY: Chronic back pain. Assessment for new fractures. COMPARISON: None POSTSURGICAL CHANGES: T12 and L1 vertebral plasty changes unremarkable. BONY ALIGNMENT: Stable alignment. Mild scoliosis. HYPERMOBILITY:No hypermobility LISTHESIS:Similar mild degenerative listhesis FRACTURE: No new compression fracture. Similar T12 and L2 compression fractures. No progression. DEGENERATIVE CHANGES: Similar spondylosis. Extensive lower lumbar hypertrophic facet changes redemonstrated. SOFT TISSUES: Unremarkable BONY MINERALIZATION:Decreased bony mineralization XR/XR lumbar spine 6V w bending IMPRESSION: Similar degenerative postoperative changes. Diffuse osteopenia. No new fracture. No hypermobility. Vertebroplasty change. Impression dictated by: Jason Stuart M.D. 08/07/2024 2:40 PM Dictation Location: [place] [address] Electronically authenticated by: [id number] Y Date: 08/07/2024 14:40
== END 2024-08-07 13:25 | disposition home or self-care (01) ==
LOC: RAD 13:25
PROVIDERS: PCP Family Medicine; Visit Provider Nurse Practitioner
DX: M54.6 Pain in thoracic spine (principal); M54.50 Low back pain, unspecified; M85.80 Other specified disorders of bone density and structure, unspecified site; Z98.890 Other specified postprocedural states
CPT/HCPCS: 72070; 72114

== ENCOUNTER 2024-08-21 14:17 | Outpatient (OUT) | payer MEDICARE, SELFPAY ==
--- NOTE | 2024-08-21 14:38 | MR_ITS ---
[address] [address] Patient Name: TYRESE GUTIERRES MRN: [id number] date: 1955 Sex: F Assigned Patient Location: LAB Current Patient Location: LAB Accession/Order Number: [id number] Exam Date: 08/21/2024 17:32 Report Date: 08/21/2024 17:43 At the request of: JEROD HARVEY NP Procedure: MR thoracic spine wo con MRI Lumbar Spine withoutcontrast TECHNIQUE: Multiplanar T1 and T2-weighted imaging of lumbar spine obtained without contrast. HISTORY: Chronic lumbar and thoracic pain. Radiculopathy. History of multiple kyphoplasty COMPARISON: 03/20/2023 POST SURGERY CHANGES: T11, T12 and L2 kyphoplasty changes BONE MARROW INFILTRATION: None BONE MARROW EDEMA: None BONY ALIGNMENT: Adequate bony alignment identified. LUMBAR FRACTURE: None BONY LESIONS: None KIDNEYS: No hydronephrosis is identified. AORTA: No aortic aneurysm is seen. CONUS MEDULLARIS : The distal spinal cord is in adequate position without abnormality. Additional findings CONJOINED NERVE ROOT: None Lower thoracic level: Mild spondylosis. Mild central canal stenosis secondary to broad ventricles fracture fragments. Mild crowding the cord. No cord edema or hemorrhage. L1-2 :Nondisplaced narrowing. Patent central canal and neural foramen. L2-3: Mild spondylosis. Mild diffuse disc bulge. Patent central canal. Mild posterior element hypertrophy. Patent neural foramen L3-4: Mild spondylosis. Diffuse disc bulge. Patent central canal. Posterior element hypertrophy. Mild bilateral neural foraminal narrowing L4-5: Mild spondylosis. Diffuse disc bulge. Mild central canal stenosis. Posterior element hypertrophy. Mild bilateral neural foraminal narrowing L5-S1: Mild spondylosis. Diffuse disc bulge. Mild central canal stenosis. Posterior element hypertrophy. Patent neural foramen MR/MR thoracic spine wo con IMPRESSION: Multilevel discovertebral degenerative changes. Mild central canal stenosis. Unremarkable kyphoplasty changes Pre-MRI plain film assessment: None MRI THORACIC SPINE WITHOUT CONTRAST TECHNIQUE: T1, T2 and STIR sagittal imaging performed with T1 and T2 axial imaging of thoracic spine performed COMPARISON: None LOCALIZATION IMAGING FINDINGS: Unremarkable BONY ALIGNMENT: Scoliosis. BONY LESIONS: None FRACTURE: T8, T9, T11, T12 and L2 compression fractures with neoplastic change. No acute bone marrow edema. No new compression fracture. DEGENERATION: The disc spaces of the thoracic spine are maintained. FACET ALIGNMENT: Degenerative change BONY CENTRAL CANAL: Unremarkable SPINAL CORD: Unremarkable NEUROFORAMEN Patent SOFT TISSUES: No paraspinal abnormality is identified. VISUALIZED LUNGS: Unremarkable VISUALIZED AORTA: The visualized aorta is unremarkable. VISUALIZED KIDNEYS: No obstructive uropathy identified. IMPRESSION: T8, T9, T11, T12 and L2 compression fractures and vertebral plasty changes. No new compression fracture. Patent central canal. Scoliosis. Impression dictated by: Jason Stuart M.D. 08/21/2024 5:43 PM Dictation Location: [facility] Electronically authenticated by: [id number] Y Date: 08/21/2024 17:43
--- NOTE | 2024-08-21 14:38 | MR_ITS ---
[address] [address] Patient Name: TYRESE GUTIERRES MRN: [id number] date: 1955 Sex: F Assigned Patient Location: LAB Current Patient Location: LAB Accession/Order Number: [id number] Exam Date: 08/21/2024 17:32 Report Date: 08/21/2024 17:43 At the request of: JEROD HARVEY NP Procedure: MR thoracic spine wo con MRI Lumbar Spine withoutcontrast TECHNIQUE: Multiplanar T1 and T2-weighted imaging of lumbar spine obtained without contrast. HISTORY: Chronic lumbar and thoracic pain. Radiculopathy. History of multiple kyphoplasty COMPARISON: 03/20/2023 POST SURGERY CHANGES: T11, T12 and L2 kyphoplasty changes BONE MARROW INFILTRATION: None BONE MARROW EDEMA: None BONY ALIGNMENT: Adequate bony alignment identified. LUMBAR FRACTURE: None BONY LESIONS: None KIDNEYS: No hydronephrosis is identified. AORTA: No aortic aneurysm is seen. CONUS MEDULLARIS : The distal spinal cord is in adequate position without abnormality. Additional findings CONJOINED NERVE ROOT: None Lower thoracic level: Mild spondylosis. Mild central canal stenosis secondary to broad ventricles fracture fragments. Mild crowding the cord. No cord edema or hemorrhage. L1-2 :Nondisplaced narrowing. Patent central canal and neural foramen. L2-3: Mild spondylosis. Mild diffuse disc bulge. Patent central canal. Mild posterior element hypertrophy. Patent neural foramen L3-4: Mild spondylosis. Diffuse disc bulge. Patent central canal. Posterior element hypertrophy. Mild bilateral neural foraminal narrowing L4-5: Mild spondylosis. Diffuse disc bulge. Mild central canal stenosis. Posterior element hypertrophy. Mild bilateral neural foraminal narrowing L5-S1: Mild spondylosis. Diffuse disc bulge. Mild central canal stenosis. Posterior element hypertrophy. Patent neural foramen MR/MR lumbar spine wo con IMPRESSION: Multilevel discovertebral degenerative changes. Mild central canal stenosis. Unremarkable kyphoplasty changes Pre-MRI plain film assessment: None MRI THORACIC SPINE WITHOUT CONTRAST TECHNIQUE: T1, T2 and STIR sagittal imaging performed with T1 and T2 axial imaging of thoracic spine performed COMPARISON: None LOCALIZATION IMAGING FINDINGS: Unremarkable BONY ALIGNMENT: Scoliosis. BONY LESIONS: None FRACTURE: T8, T9, T11, T12 and L2 compression fractures with neoplastic change. No acute bone marrow edema. No new compression fracture. DEGENERATION: The disc spaces of the thoracic spine are maintained. FACET ALIGNMENT: Degenerative change BONY CENTRAL CANAL: Unremarkable SPINAL CORD: Unremarkable NEUROFORAMEN Patent SOFT TISSUES: No paraspinal abnormality is identified. VISUALIZED LUNGS: Unremarkable VISUALIZED AORTA: The visualized aorta is unremarkable. VISUALIZED KIDNEYS: No obstructive uropathy identified. IMPRESSION: T8, T9, T11, T12 and L2 compression fractures and vertebral plasty changes. No new compression fracture. Patent central canal. Scoliosis. Impression dictated by: Jason Stuart M.D. 08/21/2024 5:43 PM Dictation Location: [employer] Electronically authenticated by: [id number] Y Date: 08/21/2024 17:43
[2024-08-21 14:45] LABS: Estimated GFR (African America >60 (>=60 mL/min/1.73m^2); Estimated GFR (Non-African Ame >60 (>=60 mL/min/1.73m^2)
== END 2024-08-21 14:18 | disposition home or self-care (01) ==
LOC: LAB 14:17
PROVIDERS: PCP Family Medicine; Visit Provider Nurse Practitioner
DX: M47.816 Spondylosis without myelopathy or radiculopathy, lumbar region (principal); M47.814 Spondylosis without myelopathy or radiculopathy, thoracic region; M51.369 Other intervertebral disc degeneration, lumbar region without mention of lumbar back pain or lower extremity pain; M48.04 Spinal stenosis, thoracic region
CPT/HCPCS: 36415; 72146; 72148; 82565

== ENCOUNTER 2024-09-04 12:49 | Outpatient (OUT) | payer MEDICARE, SELFPAY ==
--- OUTSIDE RECORDS SUMMARY | 2023-04-16 06:20 | XMS_ITS ---
Author Organization [facility] Address [address] [place] [address] Care Team Providers Care Beauty Consultant Name Role Phone Shaheed ROOT, Jayesh Primary Care Provider Paco Romeo Unavailable [phone] REASON FOR VISIT Right tib plat fx Medications Medication SIG (Take, Route, Fr equency, Duration) Notes Start Date End Date Status Plavix Active cyclobenzaprine Acti ve ProAir Active Lyrica Active Vicodin Active Xanax Active Encounters Encounter Location Date Provider Diagnosis [facility] [address] [place] [address] [place] [address] 04/16/2023 Paco Ward Plan Of Treatment No Information Progress Notes * TYRESE GUTIERRES RDOB: [birth year] (69 yo F)Acc No.[id number]:04/16/2023 Patient: TYRESE MATHEWS Provider: Tiff Ward MD :1955 A ge:67 Y S ex:Female Date:04/16/2023 [address] , [address] , [facility] Pcp:Jayesh Hummel MD Subjective: * Chief Complaints: * 1 . Right tib plat fx. * Medical History: * Medications: T aking Vicodin , Taking Xanax , Taking Lyrica , Taking ProAir , Taking cyclobenzaprine , Taking Plavix Objective: * Vitals: Assessment: Plan: * Treatment: Forms: * Images: * Electronic signature of Clay Ward MD on 09/04/2024 at 12:51 PM EDT Sign off status: Pending * Provider: Tiff Ward MD Date: 0 04/16/2023 Generated for Kari metcalf/Brea/Desi on: 0 09/04/2024 12:51 PM EDT
--- OUTSIDE RECORDS SUMMARY | 2024-09-04 12:52 | XMS_ITS | Clinical Summary ---
Author Organization [facility] Address [address] [place] [address] Care Team Providers Care Geospatial Information Technologist Name Role Phone Yolanda Chavez MD Primary Care Provider [phone] Allergies Active Allergy Reactions Criticality Noted Date [...] this topic Medical Devices Implanted Type Area Senior Java Data Architect Device Identifier Shelf Expiration Date Model / Serial / Lot Cement Bne 20 Gm Hi Visc Radiopaque Vertaplex Hv - [id number] Implanted:Qty: 1 on 06/15/2023 by Ricardo Carbajal MD at [facility] Cement Back JENNIFER MICHELL-WD 11/09/2024 [id number] / / [id number] Description:Thoracic 11 & th oracic 12 Insurance [facility] MEDICARE Care Teams Geospatial Information Technologist Relationship Specialty Start Date End Date Yolanda Chavez MD [address] [place] [address] PCP - General Family Medicine 06/13/23
--- OUTSIDE RECORDS SUMMARY | 2024-09-04 12:52 | XMS_ITS | Encounter Summary ---
Author Organization [facility] Address [address] [place] [address] Phone Care Team Providers Care Publicity Agent Name Role Phone Unavailable Primary Care Provider Unavailabl e Encounter Details Date Type Department Care Team (Late st Contact Info) Description 12/01/2022 Scanned Document [facility] LE[facility] [address] [place] [address] Conversion, Onbase Social History Tobacco Use Types [...]
--- OUTSIDE RECORDS SUMMARY | 2024-09-04 12:52 | XMS_ITS | Encounter Summary ---
Author Organization [facility] Address [address] [place] [address] Care Team Providers Care Hand Hide Stretcher Name Role Phone Yolanda Chavez MD Primary Care Provider [phone] Encounter Details Date Type Department Care Team (Late st Contact Info) Description 06/18/2023 Telephone [employer] [facility] Special Procedure [address] [place] [address] Jacque Estevez RN Social History [...] on filedocumented in this encounter Care Teams Hand Hide Stretcher Relationship Specialty Start Date End Date Yolanda Chavez MD [address] [place] [address] PCP - General Family Medicine 06/13/23 documented as of this encounter
--- OUTSIDE RECORDS SUMMARY | 2024-09-04 12:52 | XMS_ITS | Clinical Summary ---
Author Organization [facility] Address [address] [place] [address] Phone Care Team Providers Care Sed Middle School Teacher Name Role Phone Unavailable Primary Care Provider [...] Annual Wellness Visit (AWV) 1955 Sigmoidoscopy 1955 Skin Cancer Screening 1955 Diabetes Screening 06/03/1973 Hepatitis C Screening [...] age to complete this topic HPV Vaccines (No Doses Required) Completed IPV Vaccines Aged Out No longer eligi ble based on patient's age to complete this topic Meningococcal Vaccine Aged Out No sincere chente eligible based on patient's age to complete this topic Rotavirus Vaccines Aged Out No longer eligible based on patient's age to complete this topic Insurance [employer] GOLD CHOICE [place] CHO[employer]
--- OUTSIDE RECORDS SUMMARY | 2024-09-04 12:52 | XMS_ITS | Patient Health Record ---
Author Organization [facility] Address [address] [place] [address] Care Team Providers Care Brick Dropper Name Role Phone Jayesh Hummel MD Primary Care Provider Paco Romeo Unavailable [phone] Allergies Allergen (clinical drug ingredient) Drug/Non Drug [...] Problem Status W/U Status Risk Notes Problem [id number] Closed fracture of right tibial plateau, initial encounter (S82.141A) Active confirmed Problem [id number] Closed disp bicondylar fracture of right tibia with routine healing (S82.141D) Active confirmed Plan Of Treatment Pending Test Test Name Order Date DME TROM brace 12/04/2022 Insurance Providers Payer Name Payer Address Payer Phone Subscriber Number Group Number Insured Name Patient Relationship to Insured Coverage Start Date Coverage End Date Medicare [employer] [address] [address] [place] [address] [phone] [id number] TYRESE GUTIERRES Self - patient is the [...]
--- OUTSIDE RECORDS SUMMARY | 2024-09-04 12:52 | XMS_ITS | Clinical Summary ---
Author Organization [facility] tem Address [id number] [address] [place] [address] Care Team Providers Care Bearing Inspector Name Role Phone Raj Phani Liza HAWK Primary Care Provider [phone] Allergies Active Allergy Reactions Criticality Noted Date [...] Most Recently Relevant to Health Maintenance Insurance [facility] MEDICARE Care Teams Bearing Inspector Relationship Specialty Start Date End Date Phani Anthony DO [address] [place] [address] PCP - General 09/21/17
--- NOTE | 2024-09-04 12:58 | PM.CN ---
Consult Note: HPI Data of Consult Patient: known to practice within the last 3 years Requesting Physician: Jaymie Duncan NP Primary Care Provider: Yolanda Chavez MD Consult Narrative Reason for consult: back pain Narrative: Afia Maxwell a pleasant 69 year old female presents for evaluation of chronic upper and lower back pain, hx of extensive compression fractures and scoliosis. pain 8/10 increasing to 10/10 with activity and lifting. utilizing norco, tylenol, lyrica through PCP with mild relief without side effects. has failed > 6 weeks of PT/HEP, heat, ice, tylenol and cannot take NSAIDs due to GI upset. recently underwent thoracic/lumbar xrays and MRI, see EHR and paper chart for further details. since last visit denies falls/injury cc:: CC: Jaymie Duncan NP Review of Systems ROS Status of ROS 10 or more systems reviewed and unremarkable except as noted in history and below Musculoskeletal Reports: back pain and joint pain PFSH PFSH Medical History (Updated 09/04/24 @ 13:27 by Jaymie Duncan NP) Fall ?W19.XXXA - Unspecified fall, initial encounter (ICD-10) Fracture, tibia ?S82.209A - Unspecified fracture of shaft of unspecified tibia, initial encounter for closed fracture (ICD-10) Compression fracture Compression fracture of lumbar vertebra with routine healing ?S32.000D - Wedge compression fracture of unspecified lumbar vertebra, subsequent encounter for fracture with routine healing (ICD-10) Compression fracture of thoracic vertebra with routine healing ?S22.000D - Wedge compression fracture of unspecified thoracic vertebra, subsequent encounter for fracture with routine healing (ICD-10) Dyslipidemia ?E78.5 - Hyperlipidemia, unspecified (ICD-10) Venous insufficiency ?I87.2 - Venous insufficiency (chronic) (peripheral) (ICD-10) Chronic bronchitis with productive mucopurulent cough ?J41.1 - Mucopurulent chronic bronchitis (ICD-10) Cervical spondylosis ?M47.812 - Spondylosis without myelopathy or radiculopathy, cervical region (ICD-10) Osteoporosis ?M81.0 - Age-related osteoporosis without current pathological fracture (ICD-10) COPD (chronic obstructive pulmonary disease) ?J44.9 - Chronic obstructive pulmonary disease, unspecified (ICD-10) Hypoxia ?R09.02 - Hypoxemia (ICD-10) Thoracic spondylosis ?M47.814 - Spondylosis without myelopathy or radiculopathy, thoracic region (ICD-10) Lumbar spondylosis ?M47.816 - Spondylosis without myelopathy or radiculopathy, lumbar region (ICD-10) Pneumothorax ?J93.9 - Pneumothorax, unspecified (ICD-10) Hepatitis ?K75.9 - Inflammatory liver disease, unspecified (ICD-10) GI bleed ?K92.2 - Gastrointestinal hemorrhage, unspecified (ICD-10) Upper back pain ?M54.9 - Dorsalgia, unspecified (ICD-10) Neck pain ?M54.2 - Cervicalgia (ICD-10) Low back pain ?M54.50 - Low back pain, unspecified (ICD-10) Osteoarthritis ?M19.90 - Unspecified osteoarthritis, unspecified site (ICD-10) Anxiety ?F41.9 - Anxiety disorder, unspecified (ICD-10) TIA (transient ischemic attack) ?G45.9 - Transient cerebral ischemic attack, unspecified (ICD-10) Diverticulitis ?K57.92 - Diverticulitis of intestine, part unspecified, without perforation or abscess without bleeding (ICD-10) Irritable bowel ?K58.9 - Irritable bowel syndrome without diarrhea (ICD-10) Ulcerative colitis ?K51.90 - Ulcerative colitis, unspecified, without complications (ICD-10) Hiatal hernia ?K44.9 - Diaphragmatic hernia without obstruction or gangrene (ICD-10) Acid reflux ?K21.9 - Gastro-esophageal reflux disease without esophagitis (ICD-10) Chronic cough ?R05.3 - Chronic cough (ICD-10) Former smoker ?Z87.891 - Personal history of nicotine dependence (ICD-10) COPD (chronic obstructive pulmonary disease) ?J44.9 - Chronic obstructive pulmonary disease, unspecified (ICD-10) Emphysema lung ?J43.9 - Emphysema, unspecified (ICD-10) Angina at rest ?I20.8 - Other forms of angina pectoris (ICD-10) Surgical History H/O carpal tunnel repair ?Z98.890 - Other specified postprocedural states (ICD-10) H/O kyphoplasty ?Z98.890 - Other specified postprocedural states (ICD-10) History of hysterectomy ?Z90.710 - Acquired absence of both cervix and uterus (ICD-10) Family History Mother Family history of CHF (congestive heart failure) Family history of COPD (chronic obstructive pulmonary disease) Family history of diabetes mellitus Family history of stroke Grandmother Family history of cancer Family history of diabetes mellitus Social History Within the past year, how often did you have a drink containing alcohol: never Within the past year, how many standard drinks containing alcohol did you have on a typical day: 1 or 2 Within the past year, how often did you have six or more drinks on one occasion: never Total score: 0 Score interpretation: A score less than 3 is consistent with normal alcohol consumption. Smoking status: Former smoker Non-prescribed substance use: denies use Previous occupational history: retired Highest level of school completed/degree received: high school graduate Are you now , , , , never or living with a partner: In a typical week, how many times do you talk on the telephone with family, friends, or neighbors: 3 or more times per week How often do you get together with friends or relatives: 3 or more times per week How often do you attend restoration or adventist services: never Do you belong to any clubs or organizations such as restoration groups unions, fraternal or athletic groups, or school groups: no Total score: 1 Score interpretation: A score of less than or equal to 1 indicates the most socially isolated. Little interest or pleasure in doing things: not at all Feeling down, depressed, or hopeless: not at all Feel stressed/tense/nervous/anxious/difficulty sleeping: not at all Do you think of yourself as: straight/heterosexual Gender Identity: female Meds Home Medications and Allergies Home Medications ?Medication ?Instructions ?Recorded ?Confirmed ?Type albuterol sulfate 90 mcg/actuation 2 inh inhalation Q4H PRN shortness 09/06/22 01/13/23 History aerosol inhaler of breath or wheezing dicyclomine 20 mg tablet 20 mg PO QID 09/06/22 01/13/23 History hydrocodone 5 mg-acetaminophen 325 1 tab PO TID PRN pain 09/06/22 08/07/24 History mg tablet pantoprazole 40 mg tablet,delayed 40 mg PO DAILY 09/06/22 01/13/23 History release trazodone 50 mg tablet 50 mg PO BEDTIME PRN sleep 09/06/22 01/13/23 History escitalopram oxalate 10 mg tablet 10 mg PO DAILY 01/13/23 01/13/23 History (Lexapro) pregabalin 150 mg capsule (Lyrica) 150 mg PO BID 01/13/23 01/13/23 History baclofen 20 mg tablet 5 mg PO BEDTIME 08/07/24 08/07/24 History ibandronate 150 mg tablet 150 mg PO .monthly 08/07/24 08/07/24 History Allergies Allergy/AdvReac Type Severity Reaction Status Date / Time escitalopram (From Lexapro) Allergy Severe Muscle Pain Verified 01/03/24 20:42 sulfamethoxazole (From Allergy Mild Diarrhea Verified 11/13/22 18:22 Bactrim) trimethoprim (From Bactrim) Allergy Mild Diarrhea Verified 11/13/22 18:22 ketorolac (From Toradol) Allergy Unknown Verified 01/03/24 20:42 NSAIDS (Non-Steroidal Allergy Unknown Verified 01/03/24 20:42 Anti-Inflamma rofecoxib (From Vioxx) Allergy Unknown Verified 01/03/24 20:42 varenicline (From Chantix) Allergy Unknown Verified 01/03/24 20:42 Exam Narrative Exam Narrative: diffuse hyperalgesias generalized tenderness noted to T6-L5, bilateral SI joint tenderness, +SLR, paresthesias to BLE, R<L Constitutional Documenting provider has reviewed patient's vital signs: yes Common normals: no apparent distress, oriented x3, healthy appearing and alert General appearance: cooperative Nutritional appearance: cachectic and thin HENMT Common normals: normocephalic, hearing grossly normal bilaterally and moist oral mucous membranes Head and scalp: normocephalic Eye Common normals: PERRL Pupil: PERRL Neck & C-Spine Common normals: full ROM General: normal visual inspection Chest Common normals: inspection of chest normal Respiratory Common normals: normal respiratory effort, no retractions and no use of accessory muscles Back & Pelvis Thoracic spine/upper back: ROM limited, pain with ROM, thoracic spinal tenderness, paraspinal muscle tenderness and kyphosis present Lumbar spine/lower back: pain with ROM, lumbar spinal tenderness, paraspinal muscle tenderness, straight leg raise positive right and straight leg raise positive left Sacroiliac joints: SI joint(s) abnormal SI joint details: tender to palpation and pain elicited by compression of iliac crest maneuver Neuro Common normals: oriented x3 Sensorium/orientation: alert Gait (neuro): assistive device used walker Psych Common normals: mental status grossly normal, thought process normal, cooperative, affect normal, speech normal and activity/motor behavior normal Speech: normal speech Thought process: normal thought process Results Additional Findings Additional findings: If on a controlled substance or opioids, I have checked an [place] report on this patient and there are no aberrancies noted in the prescribing history.??If on a controlled substance or opioid a drug screen was completed and reviewed within the last year, and if there has not been a drug screen completed we ordered one today to monitor higher risk, state monitored pain medication use. As part of providing excellent, safe, comprehensive care, the following was completed at our patient's visit: 1. A medication reconciliation and review to ensure accurate knowledge of current/active medications, including asking our patients to inform us about any [id number] medications or herbal remedies/nutritional supplements/alternative remedies. 2. A review to specifically ensure our patients have had annual screening for screening for depression, screening for tobacco use, and screening for unhealthy alcohol use. For concerning screenings had a discussion with the patient, provided patient education, and recommended follow-up with primary care provider when appropriate. If patient noted with a risk of falling, they received education on strength, gait, and balance training to prevent future risk of falling. Portions of this note may have been carried over from the previous visit and updated as appropriate. Please note this office utilizes paper charting in addition to the electronic medical record. A list of current medications, vitals, and PMH is available there as the clinical staff outside of myself do not have access to [facility] charting during the clinic day operations. As part of providing quality comprehensive care the current medications, vitals, and PMH were reviewed in the paper chart. Assessment and Plan Assessment and Plan (1) Thoracic spondylosis: Assessment and Plan: The patient has had over 3 months of moderate to severe thoracic and lumbar pain with functional impairment and inadequate response to conservative care including NSAIDS (unless there are contraindication such as concurrent blood thinners), multiple oral or topical pain medications, and home exercise program/physical therapy.? Patient has completed >6 weeks of guided home exercise program and/or formal physical therapy program without relief of their symptoms.? The Oswestry Disability Index was completed, and the patient scored a 71%.? The patient noted the following:?? moderate to severe pain impacting ADLs, sitting, standing, walking, sleeping, social life, travel We discussed the risks and benefits of the procedure with the patient, and we are NOT planning on using sedation as outlined in the guidelines from Medicare unless there is a documented reason that sedation would be strongly recommended.?? ?The procedure will be completed with fluoroscopic guidance.? (2) Thoracogenic scoliosis, thoracolumbar region: (3) Lumbar spondylosis: (4) Failed back syndrome: (5) Lumbar stenosis with neurogenic claudication: Plan 69 year old female with chronic severe upper and lower back pain, extensive hx of compressions fractures and osteoporosis. recent thoracic and lumbar xrays/MRIs consistent with significant thoracic/lumbar scoliosis and degenerative changes, mild stenosis of lumbar spine. at this time pt would like to address chronic upper back pain. proceed with bilateral T7/8 T8/9 facet medial branch block x2 working towards RFA for facet mediated back pain. continue medications through PCP. f/u after each nerve block
== END 2024-09-04 12:50 | disposition home or self-care (01) ==
LOC: PM 12:49
PROVIDERS: PCP Family Medicine; Visit Provider Nurse Practitioner
DX: M47.814 Spondylosis without myelopathy or radiculopathy, thoracic region (principal); M41.35 Thoracogenic scoliosis, thoracolumbar region; M47.816 Spondylosis without myelopathy or radiculopathy, lumbar region; M96.1 Postlaminectomy syndrome, not elsewhere classified; M48.062 Spinal stenosis, lumbar region with neurogenic claudication
CPT/HCPCS: G0463

== ENCOUNTER 2024-09-15 07:01 | Day surgery (SDC) | payer MEDICARE, SELFPAY ==
--- OUTSIDE RECORDS SUMMARY | 2024-07-05 08:51 | XMS_ITS ---
Author Name Auto Generated Organization OHIP Care Team Providers Care Compensation Vice President Name Role Phone Lilia Barry Admitting Unavailable Lilia Barry Attending Unavailable Yolanda Iqbal Primary Care Unavailable Horacio Erwin Admitting Unavailable Horacio Erwin Attending Unavailable Yolanda Iqbal Primary Care Unavailable Horacio Erwin Admitting Unavailable Horacio Erwin Attending Unavailable NENA DUNLAP Attending Unavailable YOLANDA IQBAL Primary Care Unavailable JACI PERAZA Attending Unavailable NENA DUNLAP Referring Unavailable YOLANDA IQBAL Primary Care Unavailable PROBLEMS DATE TYPE CONDITION / CODE ATTENDING STATUS [facility] 03/21/2024 Active Pancreatic cyst / K86.2(ICD-10) JACI PERAZA Active [facility] 01/16/2024 Unknown Dysuria / R30.0(ICD-10) Lilia Barry [facility] 11/02/2023 Unknown Disease of pancr eas, unspecified / K86.9(ICD-10) Horacio Erwin [facility] PROCEDURES No Procedure Records Found RESULTS CNPN Observed: 07/15/2024 12:00 AM Status: COMPLETED Source: [facility] Telephone (KEE) TYRESE GUTIERRES ([id number]) 1955 F Date Time Provider Department 07/15/24 NENA DUNLAP During your visit today, we recorded the following information about you: Anna Lopez RN 07/15/2024 4:[address] Dunlap, please review and advise. Than you, Anna Lopez RN 12/19/2023 OV: ASSESSMENT/PLAN: 1. Chronic LUQ pain - ICD9: 789.02, 338.29, ICD10: R10.12, G89.29 (primary diagnosis) The exact etiology of her chronic left lower quadrant pain is not clear. No recent EGD or colonoscopy done by Dr. Erwin. She used Dr. Was transferred to [place]. 2. Weight loss - ICD9: 783.21, ICD10: [...] She is scheduled 02/14/2024 at 12:30 PM, [facility]. - EGD - THERAPEUTIC, EUS, OR TUBE INTERVENTIONS 4. Family history of colon cancer in father - ICD9: V16.0, ICD10: Z80.0 5. Smoker - ICD9: 305.1, ICD10: F17.200 She smokes half pack per day for many years. Nena Dunlap MD, FACP 03/21/2024 EUS: Impression: - Z-line irregular, 30 cm from the incisors. - Medium-sized hiatal hernia. - There was no sign of significant pathology in the examined duodenum. - Main pancreatic duct (MPD) diameter was measured. - A cystic lesion was seen in the pancreatic head. Fine needle aspiration for fluid performed. - Pancreatic parenchymal abnormalities consisting of atrophy were noted in the entire pancreas. - There was no evidence of significant pathology in the left lobe of the liver and in the right lobe of the liver. The lesion measured 10 mm by 8 mm in maximal cross-sectional diameter. Per Dr. Dunlap's msg 03/29/2024: Cytology of Fine needle aspiration of pancreatic head cyst: Neoplastic cells present. Negative for high-grade dysplasia. Last MRCP was 10/2023. Recommend MRCP in 3 months. Send the EUS report, cytology results and my recommendations to Dr. Erwin at [facility]. Pt had repeat MRCP 07/05/[address] Erwin would like Dr. Dunlap's opinion regarding the results: FINDINGS: Mild motion degradation No biliary duct dilatation identified. Mild progression of the cystic lesion involving the pancreatic head currently measuring 10 x 6 mm. No definite communication with the pancreatic duct. No peripancreatic fluid collections. No additional pancreatic liver or splenic lesions. Fatty infiltration of the liver without focal liver lesion. No hydronephrosis. No choledocholithiasis. Unremarkable appearance of the gallbladder. No ascites. No pleural effusion. Moderate size hiatal hernia. IMPRESSION: Progression of the pancreatic head cystic lesion currently measuring 10 mm in greatest dimension. Cystic neoplasm such as IPMN is favored. Sequelae of pancreatitis or small pseudocysts could also be considered. Nena Dunlap MD 07/15/2024 5:27 PM Signed Anna: I wanted her MRCP to be done at [facility] facility for my review. I need the images of MRCP (done at [facility]) uploaded to [facility] for my review prior to rendering any opinion. MD Iona Vigil Dawn, RN 07/16/2024 9:10 AM Signed Fannie palacio [facility], they will push images to [facility]. Will monitor. ED Merrill Dawn, RN 07/17/2024 2:[address] Dunlap, GURJIT images available in [facility] to review. ED Merrill Khaled, MD 07/21/2024 5:03 PM Addendum MRCP 07/05/2024: Pancreatic cyst in the head the pancreas measured 10 x 6 mm without definite communication with the pancreatic duct. Normal biliary tree and gallbladder. EUS 03/21/2024: Cyst in the head of the pancreas measured 10 x 8 mm without associated mass. Internal debris seen within the cavity of the cyst. Cytology from the cyst showed neoplastic cells negative for high-grade dysplasia. Recommend: MRCP in 6 months at [facility] facility. Send my opinion to Dr. Erwin. MD Iona Vigil Dawn, RN 07/22/2024 9:21 AM Signed Recommendations faxed to Dr. Erwin's office. Anna Lopez RN Allergies As of Date: 07/15/2024 Noted Allergy Reaction CEFDINIR 06/22/2023 14 - Other: See Comments IBUPROFEN 06/22/2023 16 - Unknown NSAIDS (NON-STEROIDAL ANTI-INFLAM*05/15/2023 14 - Other: See Comments Comments: Other Reaction(s): diarrhea, itching and rash [id number] REDUCTASE INHIBIT*01/23/2023 16 - Unknown Comments: Other Reaction(s): Unknown SULFAMETHOXAZOLE-TRIMETHOPRIM 01/23/2023 16 - Unknown ZOLEDRONIC ACID 06/22/2023 14 - Other: See Comments Date Reviewed: 03/21/2024 Reviewed by: Nelly Arriaga RN - Fully Assessed Primary Visit Diagnosis:Pancreatic cyst (HCC) [K86.2] Prescriptions as of 07/22/2024 - albuterol (PROVENTIL) 2.5 mg /3 mL (0.083 %) nebulizer solution Every 6 hours - baclofen 20 mg tablet Take 20 mg by mouth every 6 hours as needed. - calcium carbonate (OS-BINA 500) 500 mg calcium (1,250 mg) tablet once daily. - cholecalciferol (VITAMIN D3) 1,000 unit tab tablet 2,000 Units. - dicyclomine (BENTYL) 20 mg tablet four times daily. - docusate sodium (COLACE) 100 mg capsule two times a day. - escitalopram oxalate (LEXAPRO) 10 mg tablet one time only. - HYDROcodone-acetaminophen (NORCO) 5-325 mg per tablet .COMPLEX - hydrOXYzine pamoate (VISTARIL) 25 mg capsule Take by mouth. - Ibandronate 150 mg tablet .COMPLEX - linaCLOtide (LINZESS) 290 mcg capsule once daily. - omeprazole (PRILOSEC) 40 mg capsule once daily. - pregabalin (LYRICA) 150 mg capsule Take 150 mg by mouth two times a day. - traZODone (DESYREL) 150 mg tablet Take 200 mg by mouth daily at bedtime. Problem List As Of Date: 07/15/2024 (None) Encounter Status:Closed by ANNA LOPEZ on 07/22/24 MR MRCP Observed: 07/05/2024 9:45 AM Status: COMPLETED Source: [facility] [address] MRI Report Signed Patient: Tyrese Gutierres MR#: [id number] : 1955 Acct:[id number] Age/Sex: 69 / F ADM Date: 07/05/24 Loc: MR Room: Type: [facility] Attending Dr: Horacio Erwin MD Copies to: Horacio Erwin MD Ordering Provider: Horacio Erwin MD Date of Service: 07/05/24 MR/MR MRCP: K86.9 - Disease of pancreas, unspecified MRI OF THE ABDOMEN WITHOUT CONTRAST: CLINICAL HISTORY: Lesion of pain, abdominal pain, nausea and vomiting COMPARISON: 11/02/2023 TECHNIQUE: Multisequence, multiplanar imaging of the abdomen was obtained without the use of IV contrast. FINDINGS: Mild motion degradation No biliary duct dilatation identified. Mild progression of the cystic lesion involving the pancreatic head currently measuring 10 x 6 mm. No definite communication with the pancreatic duct. No peripancreatic fluid collections. No additional pancreatic liver or splenic lesions. Fatty infiltration of the liver without focal liver lesion. No hydronephrosis. No choledocholithiasis. Unremarkable appearance of the gallbladder. No ascites. No pleural effusion. Moderate size hiatal hernia. MR/MR MRCP IMPRESSION: Progression of the pancreatic head cystic lesion currently measuring 10 mm in greatest dimension. Cystic neoplasm such as IPMN is favored. Sequelae of pancreatitis or small pseudocysts could also be considered. Impression dictated by: Vitaly Perkins M.D. 07/05/2024 9:55 AM Dictation Location: [place] [address] Transcribed By: [facility] 07/05/24954 Dictated By: Vitaly Perkins MD 07/05/2445 Signed By: <Electronically signed by Vitaly Perkins MD in OV> 07/05/2455 CNPN Observed: 03/31/2024 12:00 AM Status: COMPLETED Source: [facility] Telephone (GASTNO) TYRESE GUTIERRES ([id number]) 1955 F Date Time Provider Department 03/31/24 NENA DUNLAP During your visit today, we recorded the following information about you: Anna Lopez RN 03/31/2024 12:51 PM Signed ----- Message from Nena Dunlap MD sent at 03/29/2024 2:45 PM EST ----- Cytology of Fine needle aspiration of pancreatic head cyst: Neoplastic cells present. Negative for high-grade dysplasia. Last MRCP was 10/2023. Recommend MRCP in 3 months. Send the EUS report, cytology results and my recommendations to Dr. Erwin at [facility]. MD Iona Vigil Dawn, ED 03/31/2024 1:02 PM Signed Pt notified of results and recommendations and verbalized understanding. She will follow up with Dr. Erwin. Reports and recommendations faxed to Dr. Erwin's office. ED Merrill Nancy 05/07/2024 3:01 PM Signed Patient calls stating Dr. Erwin's office never received the records Dr. Dunlap sent. Can records be refaxed? Anna Lopez RN 05/07/2024 3:20 PM Signed Records faxed again, confirmation received. ED Merrill Debra 06/02/2024 3:05 PM Signed Pt calling Dr. Erwin still waiting on results/ recommendation for the MRI. Pt is still waiting on having this procedure. Pt was told that results were faxed in Mar and again in April. Please f/u call pt with update. Thank you, Anna Lopez, ED 06/03/2024 11:11 AM Signed Spoke with Libby at Dr. Erwin's office. They do have EUS report and recommendations. Libby with send a msg to Dr. Erwin to review. Pt notified. Anna Lopez RN Allergies As of Date: 03/31/2024 Noted Allergy Reaction CEFDINIR 06/22/2023 14 - Other: See Comments IBUPROFEN 06/22/2023 16 - Unknown NSAIDS (NON-STEROIDAL ANTI-INFLAM*05/15/2023 14 - Other: See Comments Comments: Other Reaction(s): diarrhea, itching and rash [id number] REDUCTASE INHIBIT*01/23/2023 16 - Unknown Comments: Other Reaction(s): Unknown SULFAMETHOXAZOLE-TRIMETHOPRIM 01/23/2023 16 - Unknown ZOLEDRONIC ACID 06/22/2023 14 - Other: See Comments Date Reviewed: 03/21/2024 Reviewed by: Nelly Arriaga RN - Fully Assessed Reason for Visit: Follow Up Tests Results [770] Cmt: Cytology---->recommend MRCP in [address] Erwin Prescriptions as of 06/03/2024 - albuterol (PROVENTIL) 2.5 mg /3 mL (0.083 %) nebulizer solution Every 6 hours - baclofen 20 mg tablet Take 20 mg by mouth every 6 hours as needed. - calcium carbonate (OS-BINA 500) 500 mg calcium (1,250 mg) tablet once daily. - cholecalciferol (VITAMIN D3) 1,000 unit tab tablet 2,000 Units. - dicyclomine (BENTYL) 20 mg tablet four times daily. - docusate sodium (COLACE) 100 mg capsule two times a day. - escitalopram oxalate (LEXAPRO) 10 mg tablet one time only. - HYDROcodone-acetaminophen (NORCO) 5-325 mg per tablet .COMPLEX - hydrOXYzine pamoate (VISTARIL) 25 mg capsule Take by mouth. - Ibandronate 150 mg tablet .COMPLEX - linaCLOtide (LINZESS) 290 mcg capsule once daily. - omeprazole (PRILOSEC) 40 mg capsule once daily. - pregabalin (LYRICA) 150 mg capsule Take 150 mg by mouth two times a day. - traZODone (DESYREL) 150 mg tablet Take 200 mg by mouth daily at bedtime. Problem List As Of Date: 03/31/2024 (None) Encounter Status:Closed by ANNA LOPEZ on 03/31/24 ANES POSTPROC EVAL Observed: 03/21/2024 2:29 PM Status: COMPLETED Source: [facility] HNO ID: [id number] Author: JACI PERAZA DO Service: Anesthesiology Author Type: Anesthesiologist Type: Anesthesia Postprocedure Evaluation Filed: 03/21/2024 14:29 Note Text: POST ANESTHESIA EVALUATION NOTE : 1955 Procedure Summary Date: 03/21/24 Room / Location: [facility] Endoscopy - ENDO Anesthesia Start: 933 Anesthesia Stop: 1037 Procedure: EGD - THERAPEUTIC, EUS, OR TUBE INTERVENTIONS Diagnosis: Pancreatic cyst (For evaluation of pancreatic cystic neoplasm) Scheduled Providers: Nena Dunlap MD; Jaqueline Bianchi APRN.PRODUCT ADVISOR; Jaci Peraza DO Responsible Provider: Jaci Peraza DO Anesthesia Type: MAC ASA Status: 4 Anesthesia Type: MAC Last Vitals Vitals Value Taken Time BP 122/75 03/21/24 1130 Temp 36.2 ?C (97.2 ?F) 03/21/24 1032 HR SpO2 68 03/21/24 1130 Resp 15 03/21/24 1137 SpO2 96 % 03/21/24 1130 Vitals shown include unfiled device data. Post Anesthesia Patient Status Patient Evaluation: PACU. PACU/ICU Patient Condition: stable. Anticipated Disposition: phase 2 then home. Neurological Status: aware and responsive. Pulmonary Status: breathing comfortably on room air Airway Control: returned to baseline unsupported. Cardiovascular Status: stable. Pain Management: clinically adequate Postoperative Hydration: acceptable. Intraoperative Events: no significant anesthesia events Post Operative Nausea/Vomiting Status: no significant post operative nausea or vomiting Recommendation: further care per PACU/ICU/floor team. Anesthesia Observations No Documentation SIGNATURE: Jaci Peraza DO PATIENT NAME: Tyrese Gutierres DATE: March 21, 2024 TIME: 2:29 PM CSN: [id number] NURSING PROG Observed: 03/21/2024 11:30 AM Status: COMPLETED Source: [facility] HNO ID: [id number] Author: NELLY ARRIAGA RN Service: Nursing Author Type: Registered Nurse Type: Nursing Progress Note Filed: 03/21/2024 11:43 Note Text: PATIENT EDUCATION TOPIC: PROCEDURE / SURGERY: Post Procedure Teaching: Symptom Management PATIENT NAME: Tyrese Gutierres PATIENT LOCATION: Room/bed info not found READINESS TO LEARN COGNITIVE ABILITY: Alert and oriented MOTIVATION TO LEARN: Interested FAMILY SUPPORT: son, Dilma INSTRUCTION PROVIDED TO: Patient and Family member PATIENT LEARNS BEST BY: Individual Instruction FACTORS AFFECTING LEARNING: None PHYSICAL LIMITATIONS AFFECTING LEARNING: None LEARNING RESPONSE DIAGNOSIS: ADULT: cystic lesion on pancreas head PATIENT/FAMILY RESPONSE: Verbalizes understanding of: POST-PROCEDURE INSTRUCTIONS-Correct actions to take to reduce post procedure complications METHOD OF INSTRUCTION: Individual instruction FOLLOW-UP PLAN: Perform MRCP in three months. Dr. Dunlap will follow up with patient on biopsy results INSTRUCTIONAL AIDS USED: NA SUPPLEMENTAL MATERIAL PROVIDED TO PATIENT: None REFERRAL (RECOMMENDATION): None Electronically Signed By: Nelly Arriaga HISTORY PHYSICAL Observed: 03/21/2024 10:00 AM Status: COMPLETED Source: [facility] HNO ID: [id number] Author: NENA DUNLAP MD Service: Gastroenterology Author Type: Physician Type: H&P Filed: 03/21/2024 09:24 Note Text: PROCEDURAL SEDATION HISTORY AND PHYSICAL EXAM SERVICE DATE: 03/21/2024 SERVICE TIME: 9:22 AM Subjective HPI: This is a 68 year old female who presents for Endoscopic ultrasound with fine needle aspiration PAST ANESTHESIA HISTORY: No history of adverse event No past medical history on file. PAST SURGICAL HISTORY Procedure Laterality Date COLONOSCOPY SCREENING Prior to Admission medications as of 12/19/23 1141 Medication Sig Last Dose Taking albuterol (PROVENTIL) 2.5 mg /3 mL (0.083 [...] 200 mg by mouth daily at bedtime. ALLERGIES Allergen Reactions Cefdinir Other: See Comments Ibuprofen Unknown Nsaids (Non-Steroid* Other: See Comments Other Reaction(s): diarrhea, itching and rash Wwzppms-Pcq-Qkq Red* Unknown Other Reaction(s): Unknown Sulfamethoxazole-Tr* Unknown Zoledronic Acid Other: See Comments Objective PHYSICAL EXAM: The remainder of the physical exam is noncontributory. AIRWAY: LUNGS: CARDIAC: , Assessment/Plan ASA Class: Active Problems: * No active hospital problems. * Resolved Problems: * No resolved hospital problems. * Medication and Non-Pharmacologic VTE Prophylaxis/Anticoagulants VTE Prophylaxis: VTE prophylaxis appropriate Provisional Diagnosis/Treatment Plan: Pancreatic cyst SIGNATURE: Nena Dunlap MD PATIENT NAME: Tyrese Gutierres DATE: March 21, 2024 TIME: 9:22 AM CYTOLOGY NON-SCRAP COLLECTOR Collected: 03/21/2024 9:58 AM Statu s: F Source: [facility] Order Comment: Specimen Type : SPECIMEN OBTAINED BY ASPIRATION Ordering Facility: [facility] Address: [address] [place] [address] TYPE CODE TESTS RESULT OUT OF RANGE REFERENCE UNITS PATHOLOGY [id number] CASE REPORT Result Comment: Medical Cyto logy Report Case: [id number] Authorizing Provider: Nena Dunlap MD Collected: 03/21/2024 09:58 AM Ordering Location: [facility] Received: 03/21/2024 10:35 AM Endoscopy - ENDO Pathologist: Priya Sumner MD Specimen: Pancreas, pancreatic head cyst PATHOLOGY [id number] FINAL DIAGNOSIS Result Comment: A. Pancreas, Pancreatic Head Cyst, Fine Needle Aspiration: Neoplastic cells present. Negative for high-grade dysplasia. OLOGY [id number] DIAGNOSIS COMMENT Result Comment: This case wa s reviewed in consultation with Dr. Dorado who agrees with the diagnosis. PATHOLOGY [id number] GROSS DESCRIPTION A. Pancreas Result Comment: 1 cc opaque dark green fluid. ThinPrep prepared. PATHOLOGY [facility] FINAL PERFORMING LAB Result Comment: Technical co mponent, bird keeper screening performed at [facility], [address] [place] [address] CLIA# [id number] Diagnostic interpretation performed at [facility], [address] [place] [address] CLIA# [id number] Outreach Assistant: Jc Pulido M.D. Performed By: #### CYTONON # ### [facility] CLIA [id number] [address] [place] [address] [place] ANES PRE-OP Observed: 03/21/2024 9:10 AM Status: COMPLETED Source: [facility] HNO ID: [id number] Author: JACI PERAZA DO Service: Critical Care Author Type: Anesthesiologist Type: Anesthesia Preprocedure Evaluation Filed: 03/21/2024 09:32 Note Text: ANESTHESIOLOGY DAY OF SURGERY NOTE : 1955 Procedure Information Date/Time: 03/21/24 1000 Scheduled providers: Nena Dunlap MD; Jaqueline Bianchi APRN.PRODUCT ADVISOR; Jaci Peraza DO Procedure: EGD - THERAPEUTIC, EUS, OR TUBE INTERVENTIONS Location: [facility] Endoscopy - ENDO There is no height or weight on file to calculate BMI. Most recent hematocrit and potassium results: No results found for this basename: HCT,HEMATOCRIT,K,POTASSIUM Relevant Problems No relevant active problems Based on OSH records - Anxiety - PTX history - GERD - COPD - Compression Fx - CVA x 3 - Fibromyalgia - Peripheral neuropathy - Hep B - Pancreatic cyst I - PHYSICAL EVALUATION AIRWAY Patient intubated: No. Tracheostomy tube not present Mallampati: I. TM distance: >3 FB. Neck ROM: full ROM without neurological symptoms. Mouth opening: adequate. Short neck: no. Thick neck: no DENTAL Dental findings: edentulous. II - ANESTHESIA PLAN ASA Score: 4 Anesthetic Plan: MAC The patient is a current smoker. NPO Status: adequate Beta Jean Paul Monitoring Plan Monitoring plan: standard ASA. Post Procedure Analgesic Plan Postoperative analgesic plan: parenteral or oral opioids and multimodal analgesia. Informed Consent Anesthetic risks, benefits, alternatives, personnel and consent discussed: yes. Patient / Responsible Republican agrees to proceed: yes Patient / Surrogate agrees to blood products: Yes DNR status not reviewed with patient and/or family prior to surgery. Significant changes in the patient condition since the History and Physical, not otherwise documented in primary service progress note: no. Potential Anesthesia issues that may suggest increased risk of complications or contraindication to planned procedure: none. No vitals data found for the desired time range. Outpatient Medications as of 03/21/2024 Medication Sig albuterol (PROVENTIL) 2.5 mg /3 [...] daily at bedtime. No current facility-administered medications on file as of 03/21/2024. I have interviewed and examined the patient. I have reviewed the medical record and/or the pre-anesthesia evaluation, pertinent labs, and test results. This contains updated information obtained within 48 hours of Surgery/Procedure. SIGNATURE: Jaci Peraza DO PATIENT NAME: Tyrese Gutierres DATE: March 21, 2024 TIME: 9:10 AM CSN: [id number] UPPER EUS Observed: 03/21/2024 9:09 AM Status: F Source: [facility] G[facility] Endoscopy Patient Name: Tyrese Gutierres Procedure Date: 03/21/2024 9:09 AM Date of : 1955 Admit Type: Outpatient Age: 68 Room: [place] [address] Gender: Female Note Status: Finalized Attending MD: Nena Dunlap MD, [id number] Procedure: Upper EUS Indications: For evaluation of pancreatic cystic neoplasm, Weight loss, MRCP 10/2023: There is a 6 mm T2 hyperintense nonenhancing cyst adjacent to the pancreatic duct within the head of the pancreas. This is similar to that seen on the prior exam. This may be sequelae of prior pancreatitis (a small pseudocyst) or a cystic neoplasm such as an IPMN. Referred by Dr. Erwin. Chronic smoker. Lost ~ 60 lbs 4 years ago over 2 months but weight has been stable. Providers: Nena Dunlap MD, Vero Layne, ED, Alessia Spaulding, ED, Olinda Cohen, RN, Isabela Epps RN Patient Profile: This is a 68 year old female. Refer to note in patient chart for documentation of history and physical. Referring Physician: Nena Dunlap MD (Referring MD) Medicines: Monitored Anesthesia Care Complications: No immediate complications. Procedure: Pre-Anesthesia Assessment: - Prior to the procedure, a History and Physical was performed, and patient medications and allergies were reviewed. The patient's tolerance of previous anesthesia was also reviewed. The risks and benefits of the procedure and the sedation options and risks were discussed with the patient. All questions were answered, and informed consent was obtained. Prior Anticoagulants: The patient has taken no anticoagulant or antiplatelet agents. ASA Grade Assessment: III - A patient with severe systemic disease. After reviewing the risks and benefits, the patient was deemed in satisfactory condition to undergo the procedure. After obtaining informed consent, the endoscope was passed under direct vision. Throughout the procedure, the patient's blood pressure, pulse, and oxygen saturations were monitored continuously. The Endoscope was introduced through the mouth, and advanced to the second part of duodenum. The upper EUS was accomplished without difficulty. The patient tolerated the procedure well. Moderate Sedation: MAC anesthesia was administered by the anesthesia team. Total Procedure Duration: 0 hours 41 minutes 10 seconds Findings: ENDOSCOPIC FINDING: : The Z-line was irregular and was found 30 cm from the incisors. A medium-sized hiatal hernia was present. ENDOSONOGRAPHIC FINDING: : There was no sign of significant endosonographic abnormality in the examined duodenum. The diameter of the main pancreatic duct (MPD) measured: - HOP 3 mm (head of pancreas) - BOP 1 mm (body of the pancreas) - TOP 1 mm (tail of the pancreas). An anechoic and shadowing lesion suggestive of a cyst was identified in the pancreatic head. It is not in obvious communication with the pancreatic duct. The lesion measured 10 mm by 8 mm in maximal cross-sectional diameter. There was a single compartment without septae. The outer wall of the lesion was thin. There was no associated mass. There was internal debris within the fluid-filled cavity. Diagnostic needle aspiration for fluid was performed. Color Doppler imaging was utilized prior to needle puncture to confirm a lack of significant vascular structures within the needle path. Two passes were made with the 22 gauge needle using a transduodenal approach. A stylet was used. The amount of fluid collected was 1 mL. The fluid was clear, blood-tinged and viscous. Sample(s) were sent for cytology. There is a fixed calcification within the wall of the cyst or in the pancreatic paranchyma adhcent to the cyst wall. It was difficult to align the needle to puncture the cyst because of jay angle and the patient kept coughing (smoker). Pancreatic parenchymal abnormalities were noted in the entire pancreas. These consisted of atrophy. There was no sign of significant endosonographic abnormality in the left lobe of the liver and in the right lobe of the liver. Impression: - Z-line irregular, 30 cm from the incisors. - Medium-sized hiatal hernia. - There was no sign of significant pathology in the examined duodenum. - Main pancreatic duct (MPD) diameter was measured. - A cystic lesion was seen in the pancreatic head. Fine needle aspiration for fluid performed. - Pancreatic parenchymal abnormalities consisting of atrophy were noted in the entire pancreas. - There was no evidence of significant pathology in the left lobe of the liver and in the right lobe of the liver. Recommendation: - Discharge patient to home (ambulatory). - Advance diet as tolerated. - Continue present medications. - Await cytology results. - Perform MRCP in 3 months. Procedure Code(s): --- Professional --- 41546, Esophagogastroduodenoscopy, flexible, transoral; with transendoscopic ultrasound-guided intramural or transmural fine needle aspiration/biopsy(s), (includes endoscopic ultrasound examination limited to the esophagus, stomach or duodenum, and adjacent structures) Diagnosis Code(s): --- Professional --- K22.89, Other specified disease of esophagus K44.9, Diaphragmatic hernia without obstruction or gangrene K86.2, Cyst of pancreas K86.9, Disease of pancreas, unspecified D49.0, Neoplasm of unspecified behavior of digestive system R63.4, Abnormal weight loss CPT copyright 2020 [employer]. All rights reserved. The codes documented in this report are preliminary and upon community development officer review may be revised to meet current compliance requirements. Attending Participation: I personally performed the entire procedure. Scope In: 9:46:12 AM Scope Out: 10:27:22 AM MD Nena Newman MD 03/21/2024 11:33:13 AM This report has been signed electronically by Nena Dunlap MD Number of Addenda: 0 Note Initiated On: 03/21/2024 9:09 AM Estimated Blood Loss: Estimated blood loss: none. CNPN Observed: 03/20/2024 12:00 AM Status: COMPLETED Source: [facility] Telephone ([employer]) TYRESE GUTIERRES ([id number]) 1955 F Date Time Provider Department 03/20/24 NENA DUNLAP [employer] During your visit today, we recorded the following information about you: Carmen Meadows, ED 03/20/2024 9:01 AM Signed Spoke with patient and confirmed procedure arrival time 9 am for egd -eus appointment. When you arrive please go to admitting/registration first, then you will be directed to the Endoscopy Dept.on the 2nd floor. If you have any questions about your appointment or your prep instructions please call [phone]. If you need to reschedule call [phone]. Allergies As of Date: 03/20/2024 Noted Allergy Reaction CEFDINIR 06/22/2023 14 - Other: See Comments IBUPROFEN 06/22/2023 16 - Unknown NSAIDS (NON-STEROIDAL ANTI-INFLAM*05/15/2023 14 - Other: See Comments Comments: Other Reaction(s): diarrhea, itching and rash EIOFWBH-OYS-ZHD REDUCTASE INHIBIT*01/23/2023 16 - Unknown Comments: Other Reaction(s): Unknown SULFAMETHOXAZOLE-TRIMETHOPRIM 01/23/2023 16 - Unknown ZOLEDRONIC ACID 06/22/2023 14 - Other: See Comments Date Reviewed: 12/19/2023 Reviewed by: Nena Dunlap MD - Fully Assessed Prescriptions as of 03/20/2024 - albuterol (PROVENTIL) 2.5 mg /3 mL (0.083 %) nebulizer solution Every 6 hours - baclofen 20 mg tablet Take 20 mg by mouth every 6 hours as needed. - calcium carbonate (OS-BINA 500) 500 mg calcium (1,250 mg) tablet once daily. - cholecalciferol (VITAMIN D3) 1,000 unit tab tablet 2,000 Units. - dicyclomine (BENTYL) 20 mg tablet four times daily. - docusate sodium (COLACE) 100 mg capsule two times a day. - escitalopram oxalate (LEXAPRO) 10 mg tablet one time only. - HYDROcodone-acetaminophen (NORCO) 5-325 mg per tablet .COMPLEX - hydrOXYzine pamoate (VISTARIL) 25 mg capsule Take by mouth. - Ibandronate 150 mg tablet .COMPLEX - linaCLOtide (LINZESS) 290 mcg capsule once daily. - omeprazole (PRILOSEC) 40 mg capsule once daily. - pregabalin (LYRICA) 150 mg capsule Take 150 mg by mouth two times a day. - traZODone (DESYREL) 150 mg tablet Take 200 mg by mouth daily at bedtime. 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 Please call pt back to reschedule. Elham Reid II 02/19/2024 1:09 PM Signed Spoke with patient, rescheduled EUS to 03/21/2024 at [facility]. Elham Guzman II Allergies As of Date: 02/14/2024 Noted Allergy Reaction CEFDINIR 06/22/2023 14 - Other: See Comments IBUPROFEN 06/22/2023 16 - Unknown NSAIDS (NON-STEROIDAL ANTI-INFLAM*05/15/2023 14 - Other: See Comments Comments: Other Reaction(s): diarrhea, itching and rash SDAYFON-YAM-NMB REDUCTASE INHIBIT*01/23/2023 16 - Unknown Comments: Other Reaction(s): Unknown SULFAMETHOXAZOLE-TRIMETHOPRIM 01/23/2023 16 - Unknown ZOLEDRONIC ACID 06/22/2023 14 - Other: See Comments Date Reviewed: 12/19/2023 Reviewed by: Nena Dunlap MD - Fully Assessed Prescriptions as of 02/19/2024 - albuterol (PROVENTIL) 2.5 mg /3 mL (0.083 %) nebulizer solution Every 6 hours - baclofen 20 mg tablet Take 20 mg by mouth every 6 hours as needed. - calcium carbonate (OS-BINA 500) 500 mg calcium (1,250 mg) tablet once daily. - cholecalciferol (VITAMIN D3) 1,000 unit tab tablet 2,000 Units. - dicyclomine (BENTYL) 20 mg tablet four times daily. - docusate sodium (COLACE) 100 mg capsule two times a day. - escitalopram oxalate (LEXAPRO) 10 mg tablet one time only. - HYDROcodone-acetaminophen (NORCO) 5-325 mg per tablet .COMPLEX - hydrOXYzine pamoate (VISTARIL) 25 mg capsule Take by mouth. - Ibandronate 150 mg tablet .COMPLEX - linaCLOtide (LINZESS) 290 mcg capsule once daily. - omeprazole (PRILOSEC) 40 mg capsule once daily. - pregabalin (LYRICA) 150 mg capsule Take 150 mg by mouth two times a day. - traZODone (DESYREL) 150 mg tablet Take 200 mg by mouth daily at bedtime. Problem List As Of Date: 02/14/2024 (None) Encounter Status:Closed by ELHAM REID II on 02/19/24 CNPN Observed: 02/13/2024 12:00 AM Status: COMPLETED Source: [facility] Telephone ([employer]) TYRESE GUTIERRES ([id number]) 1955 F Date Time Provider Department 02/13/24 NENA DUNLAP [employer] During your visit today, we recorded the following information about you: Carmen Meadows RN 02/13/2024 2:21 PM Signed Spoke with patient and confirmed procedure arrival time 130 PM for EGD-EUS appointment. When you arrive please go to admitting/registration first, then you will be directed to the Endoscopy Dept.on the 2nd floor. If you have any questions about your appointment or your prep instructions please call [phone]. If you need to reschedule call [phone]. Allergies As of Date: 02/13/2024 Noted Allergy Reaction CEFDINIR 06/22/2023 14 - Other: See Comments IBUPROFEN 06/22/2023 16 - Unknown NSAIDS (NON-STEROIDAL ANTI-INFLAM*05/15/2023 14 - Other: See Comments Comments: Other Reaction(s): diarrhea, itching and rash OTVTUCC-OOV-AOP REDUCTASE INHIBIT*01/23/2023 16 - Unknown Comments: Other Reaction(s): Unknown SULFAMETHOXAZOLE-TRIMETHOPRIM 01/23/2023 16 - Unknown ZOLEDRONIC ACID 06/22/2023 14 - Other: See Comments Date Reviewed: 12/19/2023 Reviewed by: Nena Dunlap MD - Fully Assessed Prescriptions as of 02/13/2024 - albuterol (PROVENTIL) 2.5 mg /3 mL (0.083 %) nebulizer solution Every 6 hours - baclofen 20 mg tablet Take 20 mg by mouth every 6 hours as needed. - calcium carbonate (OS-BINA 500) 500 mg calcium (1,250 mg) tablet once daily. - cholecalciferol (VITAMIN D3) 1,000 unit tab tablet 2,000 Units. - dicyclomine (BENTYL) 20 mg tablet four times daily. - docusate sodium (COLACE) 100 mg capsule two times a day. - escitalopram oxalate (LEXAPRO) 10 mg tablet one time only. - HYDROcodone-acetaminophen (NORCO) 5-325 mg per tablet .COMPLEX - hydrOXYzine pamoate (VISTARIL) 25 mg capsule Take by mouth. - Ibandronate 150 mg tablet .COMPLEX - linaCLOtide (LINZESS) 290 mcg capsule once daily. - omeprazole (PRILOSEC) 40 mg capsule once daily. - pregabalin (LYRICA) 150 mg capsule Take 150 mg by mouth two times a day. - traZODone (DESYREL) 150 mg tablet Take 200 mg by mouth daily at bedtime. Problem List As Of Date: 02/13/2024 (None) Encounter Status:Closed by CARMEN MEADOWS on 02/13/24 URINE CULTURE Observed: 01/16/2024 4:21 PM Status: F Source: [facility] <9,000 colonies/ml mixed bacterial skin contaminants 2 Days PERFORMED BY: [place] [address] PATHOLOGIST HIDE WORKER SHELTON NEVAREZ M.D. Performed By: #### CUU #### [address] HISTORY PHYSICAL Observed: 12/19/2023 11:40 AM Status: COMPLETED Source: [facility] HNO ID: [id number] Author: NENA DUNLAP MD Service: ? Author Type: Physician Type: H&P Filed: 12/19/2023 14:41 Note Text: Consultation requested by Dr. Horacio Erwin for an opinion regarding pancreatic lesion. My final recommendations will be communicated back to the requesting physician by way of shared medical record or fax. 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 Previous work [...] Comments Other Reaction(s): diarrhea, itching and rash Tvlokht-Cle-Ync Red* Unknown Other Reaction(s): Unknown Sulfamethoxazole-Tr* Unknown [...] colonoscopy done by Dr. Erwin. She used Dr. Was transferred to [facility]. 2. Weight loss - ICD9: 783.21, ICD10: [...] She is scheduled 02/14/2024 at 12:30 PM, [facility]. - EGD - THERAPEUTIC, EUS, OR TUBE INTERVENTIONS 4. Family history of colon cancer in father - ICD9: V16.0, ICD10: Z80.0 5. Smoker - ICD9: 305.1, ICD10: F17.200 She smokes half pack per day for many years. Nena Dunlap MD, FACP CNOV Observed: 12/19/2023 11:40 AM Status: COMPLETED Source: [facility] Office Visit (KEE) TYRESE GUTIERRES ([id number]) 1955 F Date Time Provider Department 12/19/23 11:40 AM NENA DUNLAP During your visit today, we recorded the following information about you: Pulse Blood pressure Weight 75/minute 116/60 48 kg Nena Dunlap MD 12/19/2023 2:41 PM Signed Consultation requested by Dr. Horacio Erwin for an opinion regarding pancreatic lesion. My final recommendations will be communicated back to the requesting physician by way of shared medical record or fax. 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 She used DrGerry Was transferred to [facility]. 2. Weight loss [...] She is scheduled 02/14/2024 at 12:30 PM, [facility]. - EGD - THERAPEUTIC, EUS, OR TUBE INTERVENTIONS 4. Family history of colon cancer in father - ICD9: V16.0, ICD10: Z80.0 5. Smoker - ICD9: 305.1, ICD10: F17.200 She smokes half pack per day for many years. Nena Dunlap MD, FACP Allergies As of Date: 12/19/2023 Noted Allergy Reaction CEFDINIR 06/22/2023 14 - Other: See Comments IBUPROFEN 06/22/2023 16 - Unknown NSAIDS (NON-STEROIDAL ANTI-INFLAM*05/15/2023 14 - Other: See Comments Comments: Other Reaction(s): diarrhea, itching and rash MRXSBOT-JVL-MSN REDUCTASE INHIBIT*01/23/2023 16 - Unknown Comments: Other Reaction(s): Unknown SULFAMETHOXAZOLE-TRIMETHOPRIM 01/23/2023 16 - Unknown ZOLEDRONIC ACID 06/22/2023 14 - Other: See Comments Date Reviewed: 12/19/2023 Reviewed by: Nena Dunlap MD - Fully Assessed Reason for Visit: New Patient Evaluation [154] Primary Visit Diagnosis:Chronic LUQ pain [R10.12, G89.29] Other Visit Diagnoses:Weight loss [R63.4] Pancreatic cyst [K86.2] Family history of colon cancer in father [Z80.0] Smoker [F17.200] Order(s):EGD - THERAPEUTIC, EUS, OR TUBE INTERVENTIONS [GI2] Order #: [id number] FUTURE Prescriptions as of 12/19/2023 - albuterol (PROVENTIL) 2.5 mg /3 mL (0.083 %) nebulizer solution Every 6 hours - baclofen 20 mg tablet Take 20 mg by mouth every 6 hours as needed. - calcium carbonate (OS-BINA 500) 500 mg calcium (1,250 mg) tablet once daily. - cholecalciferol (VITAMIN D3) 1,000 unit tab tablet 2,000 Units. - dicyclomine (BENTYL) 20 mg tablet four times daily. - docusate sodium (COLACE) 100 mg capsule two times a day. - escitalopram oxalate (LEXAPRO) 10 mg tablet one time only. - HYDROcodone-acetaminophen (NORCO) 5-325 mg per tablet .COMPLEX - hydrOXYzine pamoate (VISTARIL) 25 mg capsule Take by mouth. - Ibandronate 150 mg tablet .COMPLEX - linaCLOtide (LINZESS) 290 mcg capsule once daily. - omeprazole (PRILOSEC) 40 mg capsule once daily. - pregabalin (LYRICA) 150 mg capsule Take 150 mg by mouth two times a day. - traZODone (DESYREL) 150 mg tablet Take 200 mg by mouth daily at bedtime. Problem List As Of Date: 12/19/2023 (None) Disposition: Return in about 8 weeks (around 02/14/2024). Follow-up and Disposition History for Encounter Date Provider Department Center 12/19/2023 [id number] DUNLAP [facility] Encounter Status:Closed by NENA DUNLAP on 12/19/23 EDWINN Observed: 11/30/2023 12:00 AM Status: COMPLETED Source: [facility] Telephone (KEE) TYRESE GUTIERRES ([id number]) 1955 F Date Time Provider Department 11/30/23 NENA DUNLAP During your visit today, we recorded the following information about you: Anna Lopez RN 11/30/2023 12:51 PM Signed Pt referred from Dr. Erwin for EUS for pancreas cyst. Dr. Erwin's OV note sent for scanning. Dr. Dunlap, please review and advise. Pt does not take anticoagulation. Thank you, Anna Lopez RN 11/02/2023 MRCP: ABDOMEN: Liver: Within normal [...] an IPMN. There are uncomplicated colonic diverticula. Nena Dunlap MD 12/02/2023 8:49 PM Signed Awaiting MRCP images to be uploaded to [employer]. Schedule follow-up visit in my pancreas clinic in the next 1-2 months. Likely the patient does not need EUS giving stable small pancreatic cyst measuring 6 mm. MD Iona Vigil Dawn, RN 12/03/2023 3:58 PM Signed MRI images available for review. Schedulers, please call pt to schedule OV in pancreas clinic as indicated below. Dr. Dunlap has availability 12/05/2023. Thank you, ED Merrill Doreen 12/04/2023 10:02 AM Signed Spoke with patient. Unable to get a ride on 12/04, scheduled 12/18 Thank you Anderson Summers PSS Allergies As of Date: 11/30/2023 (Not on File) Date Reviewed: Never Reviewed Reason for Visit: Procedure [88] Cmt: Referred for EUS--->needs OV first Primary Visit Diagnosis:Pancreatic cyst [K86.2] Problem List As Of Date: 11/30/2023 (None) Encounter Status:Closed by ANDERSON SUMMERS on 12/04/23 MR ABDOMEN WO/W CON Observed: 11/02/2023 7:54 PM Status: COMPLETED Source: [facility] Main [place] [id number] MRI Report Signed Patient: Tyrese Gutierres MR#: [id number] : 1955 Acct:[id number] Age/Sex: 68 / F ADM Date: 11/02/23 Loc: Room: Type: [facility] Attending Dr: Horacio Erwin MD Copies to: [...] are uncomplicated colonic diverticula. Impression dictated by: Jc Denise M.D.11/02/2023 8:02 PM Dictation Location: RADIO-PC-13 Transcribed By: [facility] 11/02/232001 Dictated By: Jc Denise II, MD 11/02/231953 Signed By: <Electronically signed by Jc Denise II, MD in OV> 11/02/232001 ISTAT XRAY CRE Collected: 11/02/2023 6:33 PM Status: F Source: [facility] TYPE CODE TESTS RESULT OUT OF RANGE REFERENCE UNITS LAB ISCREAT ISTAT Creatinine Level 0.5 Low 0.6-1.3 mg/dL Result Comment: ER/ESD physi jose m is notified/shown all ISTAT results. Critical values may be confirmed by laboratory testing if deemed necessary by ER attending doctor. LAB ISTATGFRNR ISTAT GFR > 60.0 Result Comment: PERFORMED BY : [place] [address] PATHOLOGIST HIDE WORKER SHELTON NEVAREZ M.D. Performed By: #### ISCRE ### # [address] ALLERGIES DATE TYPE / CODE NAME / CODE REACTION SEVERITY SOURCE 06/22/2023 DRUG INGREDI/[id number] 003(SNOMED CT) CEFDINIR OTHER: SEE [facility] 06/22/2023 DRUG INGREDI/[id number] 003(SNOMED CT) IBUPROFEN UNKNOWN [facility] 06/22/2023 DRUG INGREDI/[id number] 003(SNOMED CT) ZOLEDRONIC ACID OTHER: SEE [facility] 05/15/2023 Drug Class/55976112 3(SNOMED CT) NSAIDS (NON-STEROIDAL ANTI-INFLAMMATORY DRUG) OTHER: SEE [facility] 01/23/2023 Drug Class/46574851 3(SNOMED CT) CMINTCN-UKS-UNU REDUCTASE INHIBITORS UNKNOWN [facility] 01/23/2023 DRUG/[id number] (SNOMED CT) SULFAMETHOXAZOLE-TRI METHOPRIM UNKNOWN [facility] ENCOUNTERS ADMIT/DISCHARGE ACCOUNT NUMBER ADMITTING ENCOUNTER CLASS LOCATION SOURCE 07/05/2024/07/06/19 25 [id number] [facility]21[facility]2024 [id number] [facility] 01/16/2024/01/16/20 24 [id number] [facility] 12/19/2023/12/19/19 24 [id number] [facility]GSNO [facility] 11/02/2023/11/02/19 24 [id number] [facility] PAYERS ENCOUNTER GUARANTOR PAYER SUBSCRIBER SOURCE 03/21/2024 Primary Insurance:[employer] MEDICARE PPOPolicy Number: [id number] Date:[id number] Name:Heydi SEBASTIAN: [id number] [address] [address] [facility] 12/19/2023 Primary Insurance:[employer] MEDICARE PPOPolicy Number: [id number] Date:[id number] Name:Heydi SEBASTIAN: [id number] [place] [id number] [facility]
[2024-09-15 07:20] VITALS: BP 112/72; PULSE 76; TEMP 36.3; O2SAT 94
[2024-09-15 07:42] VITALS: PULSE 66; O2SAT 99
[2024-09-15 07:43] VITALS: BP 118/57; BP 125/60; PULSE 66; O2SAT 95
[2024-09-15] MEDS: BUPIVACAINE HCL 0.25% PF 25 MG/10 ML VIAL 8 ML INJ (07:46)
--- NOTE | 2024-09-15 07:48 | W.PM.PROCNOT ---
Date of procedure: 09/15/24 Pre-op diagnosis: Pain due to thoracic spondylosis without myelopathy Post-op diagnosis: same as pre-op Procedure: Procedure: Bilateral T7-8, 8-9 medial branch block Medications: Bupivacaine 0.25% 6cc The patient was seen and examined in the preoperative holding area.? An informed consent was obtained and placed on the chart.? The patient was brought to the medical procedure unit and placed in the prone position.? A timeout was completed verifying correct patient, procedure site, positioning, plan, and special equipment.? Using aseptic technique, the needle was placed at left t7. Under direct fluoroscopic visualization a Quincke-tipped spinal needle was advanced to the junction of the superior articulating process with the transverse process at the designated medial branch segment.? Preceded by negative aspiration, the above-mentioned injectate was placed in 1 mL aliquots.? The procedure was repeated at left T8, 9.? The needle was removed and insertion site was covered. The same procedure, at the same levels, was completed on the right side. The patient was taken to the postprocedural recovery area and monitored for an appropriate length of time before found suitable for discharge in the company of a responsible adult. Anesthesia: Local Surgeon: Vickey Beasley Pathology: none sent Condition: stable Disposition: no change
== END 2024-09-15 07:52 | disposition home or self-care (01) ==
LOC: SURGOUT 07:02
PROVIDERS: PCP Family Medicine; Visit Provider Anesthesiology
DX: M47.814 Spondylosis without myelopathy or radiculopathy, thoracic region (principal); M54.6 Pain in thoracic spine
CPT/HCPCS: 64490; 64491; J0665

== ENCOUNTER 2024-09-25 10:57 | Outpatient (OUT) | payer MEDICARE, SELFPAY ==
--- OUTSIDE RECORDS SUMMARY | 2023-04-16 06:20 | XMS_ITS ---
Author Organization [facility] Address [address] [place] [address] Care Team Providers Care Manager Food Beverage Name Role Phone Shaheed ROOT, Jayesh Primary Care Provider Paco Romeo Unavailable [phone] REASON FOR VISIT Right tib plat fx Medications Medication SIG (Take, Route, Fr equency, Duration) Notes Start Date End Date Status Plavix Active cyclobenzaprine Acti ve ProAir Active Lyrica Active Vicodin Active Xanax Active Encounters Encounter Location Date Provider Diagnosis [facility] [address] [place] [address] [place] [address] 04/16/2023 Paco Ward Plan Of Treatment No Information Progress Notes * TYRESE GUTIERRES RDOB: [birth year] (69 yo F)Acc No.[id number]:04/16/2023 Patient: TYRESE MATHEWS Provider: Tiff Ward MD :1955 A ge:67 Y S ex:Female Date:04/16/2023 [address] , [address] , [facility] Pcp:Jayesh Hummel MD Subjective: * Chief Complaints: * 1 . Right tib plat fx. * Medical History: * Medications: T aking Vicodin , Taking Xanax , Taking Lyrica , Taking ProAir , Taking cyclobenzaprine , Taking Plavix Objective: * Vitals: Assessment: Plan: * Treatment: Forms: * Images: * Electronic signature of Clay Ward MD on 09/25/2024 at 10:59 AM EDT Sign off status: Pending * Provider: Tiff Ward MD Date: 0 04/16/2023 Generated for Kari metcalf/Brea/Desi on: 0 09/25/2024 10:59 AM EDT
--- OUTSIDE RECORDS SUMMARY | 2024-09-23 09:30 | XMS_ITS | Continuity of Care Document ---
Author Organization [facility] Address [address] [place] [address] Phone Care Team Providers Care Grievance Coordinator Name Role Phone Yolanda Chavez MD Primary Care Provider Horacio Erwin MD Attending Provider Jaymie Duncan NP-C Attending Provider [phone] Yolanda Chavez MD Attending Provider Care Teams Patient Care Team Team Status: Active Member Role Status Dates Everett Dunlap Specialist Active Yolanda Chavez MD Primary Care Provider Active Visit Care Team Team Status: Inactive Member Role Status Dates Yolanda Chavez MD Primary Care Provider Active Start: July 05, 2024 End: July 05, 2024 Horacio Erwin MD Attending Provider Active S tart: July 05, 2024 End: July 05, 2024 Visit Care Team Team Status: Active Member Role Status Dates Yolanda Cahvez MD Primary Care Provider Active Start: August 21, 2024 Jaymie Duncan NP-C Attending Provider Active St art: August 21, 2024 Patient Care Team Team Status: Inactive Member Role Status Dates Yolanda Chavez MD Primary Care Provider Active Start: September 23, 2024 End: September 23, 2024 Yolanda Chavez MD Attending Provider Active St art: September 23, 2024 End: September 23, 2024 Chief Complaint and Reason for Visit Chief Complaint Admit Date K86.9 July 05, 2024 8:5 1am 3 month f/u September 23, 2024 1:03 pm Allergies, Adverse Reactions, Alerts Allergen Type Severity Reaction Last Updated Verified Status Comments cefdinir Allergy Unknown frequent watery stools, et thrush September 23, 2024 1:07pm Yes Active ibuprofen Allergy Unknown Hives September 23, 2024 1:07pm Yes Active ketorolac Allergy Unknown Diarrhea September 23, 2024 1:07pm Yes Active mannitol Allergy Unknown Comment:Bon e pain September 23, 2024 1:07pm Yes Active simvastatin Allergy Unknown Hives September 23, 2024 1:07pm Yes Active Bzqufeo-JWT-UsV Reductase Inhibitor Allergy Unknown Diarrhea September 23, 2024 1:07pm Yes Active sulfamethoxazole Allergy Unknown Hives September 1:07pm Yes Active trimethoprim Allergy Unknown Hives September 23, 2024 1:07pm Yes Active varenicline Allergy Unknown Muscle Pain September 23, 2024 1:07pm Yes Active water for injection,sterile Allergy Unknown Comment:Bon e pain September 23, 2024 1:07pm Yes Active zoledronic acid Allergy Unknown Comment:Bon e pain September 23, 2024 1:07pm Yes Active ibandronate sodium Allergy Unknown bone pain September 092024 1:07pm Yes Active NSAIDS (Non-Steroidal Anti-Inflamma Allergy Unknown Diarrhea September 23, 2024 1:07pm Yes Active rofecoxib Allergy Unknown Migraine September 23, 2024 1:07pm Yes Active Toradol *ANALGESICS - ANTI-INF Allergy Unknown Hives June 21, 2023 5:15pm No Active Free Text Allergy: Toradol *ANALGESIC S - ANTI-INFLA MMATORY*; Onset Date: 06/29/2014 vioxx, antiinflammatories Allergy Unknown Hives June 21, 2023 5:15pm No Active Social History Smoking Status Status Start Date End Date Date of Observa tion Current some day smoker Simonnena neo 2023 3:57pm Observation Status Observation Response Date of Response Legal Sex Female (finding) Sex Assigned At Female May Family History Relationship Condition Age at Onset Recorded Date/T jose grandparent Malignant neoplasm of breast Unknown mother Heart disease Unknown brother Unknown father Heart disease Unknown Malignant neoplasm Unknown Unknown grandparent Malignant neoplasm Unknown grandparent Malignant neoplasm Unknown mother Diabetes mellitus Unknown Heart disease Unknown History of stroke Unknown Unknown Problems Active Problems Medical Problem Onset Date Status Comments Chronic thoracic back pain Unknown Active Pancreatic lesion Unknown Active UTI (urinary tract infection) Unknown Active Anemia Unknown Active Anxiety Unknown Active Problem List cl kerrie-up per request of Phys. EHR Cmte Depression Unknown Active Fibromyalgia Unknown Active Ileus Unknown Active Sinusitis Unknown Active Tobacco abuse Unknown Active Chronic back pain Unknown Active Right knee pain Unknown Active Vertebral compression fracture Unknown Active COPD (chronic obstructive pu lmonary disease) Unknown Active GERD (gastroesophageal reflu x disease) Unknown Active History of CVA (cerebrovascu lar accident) Unknown Active Right femoral fracture Unknown Active Constipation Unknown Active Inactive/Resolved Problems Medical Problem Onset Date Status Comments LUQ abdominal pain Unknown Resolved Problem L ist clean-up per request of Phys. EHR Cmte Pulmonary cachexia due to COPD Unknown Resolved Problem List clean-up per request of Phys. EHR Cmte Impaired mobility and activi ties of daily living Unknown Resolved Problem List clean-u p per request of Phys. EHR Cmte Dyspepsia and disorder of fu nction of stomach Unknown Resolved Problem List clean-u p per request of Phys. EHR Cmte Osteoporosis Unknown Resolved Problem List cl kerrie-up per request of Phys. EHR Cmte Back pain Unknown Resolved Problem List cl kerrie-up per request of Phys. EHR Cmte Colitis Unknown Resolved Problem List cl kerrie-up per request of Phys. EHR Cmte Diverticular hemorrhage Unknown Resolved Prob francesca List clean-up per request of Phys. EHR Cmte Compression fracture of body of thoracic vertebra Unknown Resolved Problem List clean-u p per request of Phys. EHR Cmte Falls frequently Unknown Resolved Problem Lis t clean-up per request of Phys. EHR Cmte DVT prophylaxis Unknown Resolved Problem List clean-up per request of Phys. EHR Cmte Musculoskeletal immobility Unknown Resolved P roblem List clean-up per request of Phys. 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 EHR Cmte Osteoporosis with pathologic al fracture of lumbar vertebra Unknown Resolved Problem List clean-up per request of Phys. EHR Cmte COPD exacerbation Unknown Resolved GERD (gastroesophageal reflu x disease) Unknown Resolved Problem List clean-u p per request of Phys. EHR Cmte Abdominal pain Unknown Resolved Problem List clean-up per request of Phys. EHR Cmte Bronchitis Unknown Resolved Medications Medication Status Dose Units Route Directions Qty Days St art Date Stop Date End Date Instructions Adherence Pantoprazol e 40 mg tablet,selam yed release (DR/EC) Discont inued 40 MG PO Daily 30 30 2023 1:00am Septe mber 2023 9:33a m Take 1 tablet orally once a day Hydrocodone -Acetaminop hen 5-325 mg tablet Discont inued 1 TAB PO Every 6 hours as needed for pain 120 30 2023June 19, 2023 8:42a m Alprazolam 0.5 mg tablet Discont inued 0.5 MG PO Three times daily as needed for anxiety 90 30 2023 9:37am May 28, 2023 9:59a m Alprazolam 0.5 mg tablet Discont inued 0.5 MG PO Three times daily as needed for anxiety 90 May 28, 2023 9:58am June 24, 2023 9:41p m Ibandronate 150 mg tablet Discont inued 0 .ROUTE .COMPLEX May 28, 2023 9:59am August 22, 2023 11:54 am take 1 tablet by mouth EACH MONTH 60 MINUTES BEFORE THE FIRST FOOD,BEVERAGE OR MEDICINE OF THE DAY WITH PLAIN WATER Trazodone 50 mg tablet Discont inued 0 .ROUTE .COMPLEX May 28, 2023 9:59am June 20, 2023 12:47 pm take 1 tablet by mouth at bedtime if needed Dicyclomine 20 mg tablet Discont inued 20 MG PO Four times daily 120 30 May 30, 2023 12:00a m June 05, 2023 1:16p m Take 1 tablet orally four times a day Hydrocodone -Acetaminop hen 5-325 mg tablet Discont inued 1 TAB PO Every 6 hours as needed for pain 28 7 June 19, 2023 June 22, 2023 1:37p m Trazodone 50 mg tablet Discont inued 0 .ROUTE .COMPLEX June 20, 2023 12:47p m July 26, 2023 3:04p m take 1 tablet by mouth at bedtime if needed Hydrocodone -Acetaminop hen 5-325 mg tablet Discont inued 1 TAB PO Every 8 hours as needed for pain 90 July 20, 2023 August 20, 2023 8:30a m Hydrocodone -Acetaminop hen 5-325 mg tablet Discont inued 1 TAB PO Every 8 hours as needed for pain 90 August 20, 2023 September 24, 2023 1:30p m Ibandronate 150 mg tablet Discont inued 0 .ROUTE .COMPLEX 3 August 22, 2023 11:54a [facility] take 1 tablet by mouth EACH MONTH 60 MINUTES BEFORE THE FIRST FOOD,BEVERAGE OR MEDICINE OF THE DAY WITH PLAIN WATER Pregabalin (Lyrica) 150 mg capsule Discont inued 150 MG PO Twice daily 60 August 22, 2023 11:54a m September 24, 2023 1:34p m Escitalopra m Oxalate 10 mg tablet Discont inued 0 .ROUTE .COMPLEX October 10, 2023 8:36am Oct 2023 8:28a m take 1 tablet by mouth once daily Linaclotide (Linzess) 290 mcg capsule Discont inued 290 MCG PO Daily October 23, 2023 12:00a m [facility] 2023 9:39a m Hydrocodone -Acetaminop hen 5-325 mg tablet Discont inued 1 TAB PO Every 8 hours as needed for pain 90 October 24, 2023 Augus t 2023 7:52a m Pregabalin (Lyrica) 150 mg capsule Discont inued 150 MG PO Twice daily 60 October 24, 2023 10:32a m [facility] 2023 12:47 pm Hydrocodone -Acetaminop hen 5-325 mg tablet Discont inued 0 .ROUTE .COMPLEX 90 [facility], [facility] 12:52 pm TAKE 1 TABLET BY MOUTH EVERY 8 HOURS NEEDED FOR PAIN FOR 30 DAYS Escitalopra m Oxalate 10 mg tablet Discont inued 0 .ROUTE .COMPLEX October 31, 2023 8:28am [facility] 2023 12:47 pm take 1 tablet by mouth once daily Ibandronate 150 mg tablet Discont inued 0 .ROUTE .COMPLEX 3 2023 2:40pm Dece 2023 7:58a m take 1 tablet by mouth EACH MONTH 60 MINUTES BEFORE THE FIRST FOOD,BEVERAGE OR MEDICINE OF THE DAY WITH PLAIN WATER Pregabalin 150 mg capsule Discont inued 150 MG PO Twice daily 60 2023 12:47p m Octob er 2023 8:17a m Escitalopra m Oxalate 10 mg tablet Discont inued 0 .ROUTE .COMPLEX 30 Septem benjamín 2023 12:47p m Septe mber 2023 9:22a m Take 1 tablet by mouth once daily Hydrocodone -Acetaminop hen 5-325 mg tablet Discont inued 0 .ROUTE .COMPLEX 90 30 Septem benjamín 2023 Octob er 2023 1:51p m TAKE 1 TABLET BY MOUTH EVERY 8 HOURS NEEDED FOR PAIN FOR 30 DAYS p/u 11/22, start 11/24 Escitalopra m Oxalate 10 mg tablet Discont inued 0 .ROUTE .COMPLEX 30 Octobe r 2023 8:35am June 02, 2024 8:22a m Take 1 tablet by mouth once daily Pregabalin 150 mg capsule Discont inued 150 MG PO Twice daily 60 30 Octobe r 2023 8:17am Novem benjamín 2023 2:06p m Pregabalin 150 mg capsule Discont inued 150 MG PO Twice daily 60 30 Novemb er 2023 2:06pm Marua ry 2024 9:19a m Hydrocodone -Acetaminop hen 5-325 mg tablet Discont inued 1 TAB PO Every 8 hours 90 30 Novemb er 2023 Decem benjamín 2023 8:16a m Ibandronate 150 mg tablet Discont inued 0 .ROUTE .COMPLEX 3 Decemb er 2023 7:58am August 11, 2024 4:20p m take 1 tablet by mouth EACH MONTH 60 MINUTES BEFORE THE FIRST FOOD,BEVERAGE OR MEDICINE OF THE DAY WITH PLAIN WATER Hydrocodone -Acetaminop hen 5-325 mg tablet Discont inued 1 TAB PO Every 8 hours 90 30 Decemb er 2023ua ry 2024 2:34p m Pregabalin 150 mg capsule Discont inued 150 MG PO Twice daily 60 30 Maruar y 2024 9:19am Febru simón 2024 11:03 am Hydrocodone -Acetaminop hen 5-325 mg tablet Discont inued 1 TAB PO Every 8 hours 90 30 Februa ry 2024June 02, 2024 8:22a m Pregabalin 150 mg capsule Discont inued 150 MG PO Twice daily 60 2024 11:03a m June 02, 2024 8:22a m Escitalopra m Oxalate 10 mg tablet Active 0 .ROUTE .COMPLEX June 02, 2024 8:20am Take 1 tablet by mouth once daily Complies with drug therapy Hydrocodone -Acetaminop hen 5-325 mg tablet Discont inued 1 TAB PO Every 8 hours 90 June 02, 2024 July 04, 2024 3:26p m Pregabalin 150 mg capsule Discont inued 150 MG PO Twice daily 60 June 02, 2024 8:20am July 03, 2024 8:27a m Trazodone 100 mg tablet Active 200 MG PO Daily at bedtime June 02, 2024 12:35p m Complies with drug therapy Pregabalin 150 mg capsule Discont inued 150 MG PO Twice daily 60 July 03, 2024 8:27am August 01, 2024 8:31a m Baclofen 5 mg tablet Discont inued 5 MG PO Daily at bedtime July 04, 2024 12:00a m August 01, 2024 8:31a m Hydrocodone -Acetaminop hen 5-325 mg tablet Discont inued 1 TAB PO Every 8 hours 80 July 04, 2024 August 01, 2024 8:31a m Pregabalin 150 mg capsule Discont inued 150 MG PO Twice daily 60 August 01, 2024 8:30am September 05, 2024 3:02p m Hydrocodone -Acetaminop hen 5-325 mg tablet Discont inued 1 TAB PO Every 8 hours 80 August 01, 2024 September 08, 2024 9:10a m Baclofen 5 mg tablet Discont inued 5 MG PO Daily at bedtime August 01, 2024 8:30am September 05, 2024 3:02p m Ibandronate 150 mg tablet Active 0 .ROUTE .COMPLEX August 11, 2024 4:19pm take 1 tablet by mouth EACH MONTH 60 MINUTES BEFORE THE FIRST FOOD,BEVERAGE OR MEDICINE OF THE DAY WITH PLAIN WATER Complies with drug therapy Baclofen 5 mg tablet Active 0 .ROUTE .COMPLEX September 05, 2024 3:02pm TAKE 1 TABLET BY MOUTH ONCE DAILY AT BEDTIME Complies with drug therapy Pregabalin 150 mg capsule Active 150 MG PO Twice daily 60 September 05, 2024 3:02pm Complies with drug therapy Hydrocodone -Acetaminop hen 5-325 mg tablet Active 1 TAB PO Every 8 hours 80 September 08, 2024 Complies with drug therapy Mesalamine (Lialda) 1.2 gram tablet,selam yed release (DR/EC) Discont inued 4.8 GM PO Every morning June 26, 2019 2:54pm July 02, 2019 8:26a m Loperamide 2 mg Capsule Discont inued 2 MG PO Twice daily July 01, 2019 12:00a m July 05, 2021 1:44p m Potassium Chloride (Klor-Con 10) 10 mEq Tablet Extended Release Discont inued 10 MEQ PO 3x/Day with meals 60 July 01, 2019 12:00a m July 06, 2021 7:56a m Clopidogrel 75 mg Tablet Discont inued 75 MG PO Daily July 01, 2019 12:00a m July 05, 2021 1:43p m Acetaminoph en 500 mg Tablet Discont inued 500 MG PO Q4H 100 July 01, 2019 12:00a m July 05, 2021 1:43p m Alprazolam 0.5 mg Tablet Discont inued 0.5 MG PO Q6H as needed for Anxiety 0 7 July 01, 2019 12:00a m Febru simón 2023 9:38a m Calcium Carbonate (Oyster Shell Calcium 500) 500 mg calcium (1,250 mg) Tablet Active 500 MG PO Daily July 01, 2019 12:00a m Complies with drug therapy Baclofen 10 mg Tablet Discont inued 10 MG PO Four times daily as needed for Muscle Spasm July 01, 2019 12:00a m Novem benjamín 2021 2:15p m Mirtazapine 30 mg Tablet Discont inued 30 MG PO Bedtime July 01, 2019 12:00a m June 22, 2023 1:12p m Docusate Sodium (Dok) 100 mg Capsule Active 100 MG PO Twice daily as needed for Constipatio n 60 July 01, 2019 12:00a m Complies with drug therapy Omeprazole 20 mg Capsule,Del ayed Release(Dr/ Ec) Discont inued 20 MG PO Daily before breakfast July 01, 2019 12:00a m July 05, 2021 1:45p m Cholecalcif asha (Vitamin D3) 25 mcg (1,000 unit) Tablet Active 2000 UNIT PO Daily July 01, 2019 12:00a m Complies with drug therapy Mesalamine (Lialda) 1.2 gram Tablet,Selam yed Release (Dr/Ec) Discont inued 4.8 GM PO Every morning July 01, 2019 12:00a m July 05, 2021 1:44p m Fluticasone Propion-Duane meterol 113-14 mcg/actuati on Aerosol Powdr Breath Activated Active 1 PUFF INHALA TION Twice daily July 01, 2019 12:00a m Complies with drug therapy Metronidazo le 500 mg Tablet Discont inued 500 MG PO Twice daily 6 3 July 01, 2019 12:00a m July 05, 2021 1:44p m Oxycodone 5 mg Tablet Discont inued 5 MG PO Every 4 hours as needed for Pain Scale 6 - 10 20 7 July 01, 2019 Novem 2021 2:16p m Polysacchar romario Iron Complex (Iferex 150) 150 mg iron capsule Discont inued 150 MG PO Daily July 05, 2021 12:00a m 2021 2:17p m Dicyclomine 20 mg tablet Discont inued 20 MG PO Three times daily July 05, 2021 12:00a m June 22, 2023 1:11p m Fluticasone Propion-Duane meterol (Advair Hfa) 115-21 mcg/actuati on HFA aerosol inhaler Discont inued 1 PUFF INHALA TION Daily July 05, 2021 12:00a m July 06, 2021 7:57a m Lipase-Prot ease-Amylas e (Creon) 36,000-114, 000- 180,000 unit capsule,del ayed release(DR/ EC) Discont inued 1 CAP PO Daily July 05, 2021 12:00a m July 06, 2021 7:56a m Hydrocodone -Acetaminop hen 5-325 mg tablet Discont inued 5 - 325 MG PO Four times daily 2019 1:00am 2019 9:08a m Clopidogrel 75 mg tablet Discont inued 75 MG PO Daily 2019 1:00am July 02, 2019 8:26a m Alprazolam 0.5 mg tablet Discont inued 0.5 MG PO Daily 2019 1:00am 2019 9:08a m Baclofen 10 mg tablet Discont inued 10 MG PO Four times daily as needed for Muscle Spasm 2019 1:00am June 26, 2019 10:53 am Omeprazole 20 mg capsule,del ayed release(/ EC) Discont inued 20 MG PO Daily 2019 1:00am July 02, 2019 8:26a m Mirtazapine 15 mg tablet Discont inued 30 MG PO Bedtime 2019 1:00am July 02, 2019 8:26a m Albuterol Sulfate 90 mcg/actuati on HFA aerosol inhaler Discont inued 1 PUFF INHALA TION Four times daily as needed for Shortness Of Breath Or Wheezing 2019 1:00am July 02, 2019 8:26a m Fluticasone Propion-Duane meterol 113-14 mcg/actuati on Aerosol Powdr Breath Activated Discont inued 1 PUFF INHALA TION Twice daily 2019 1:00am July 02, 2019 8:26a m Prednisone 10 mg tablet Discont inued 10 MG PO As Directed 10 2019 1:00am July 02, 2019 8:26a m Take 1 tablet twice a day for 3 days then 1 tablet daily Cholecalcif asha (Vitamin D3) (Vitamin D3) 2,000 unit tablet Discont inued 2000 UNIT PO Daily 2019 1:00am July 02, 2019 8:26a m Calcium Carbonate (Calcium 500) 500 mg calcium (1,250 mg) tablet Discont inued 500 MG PO Daily 2019 1:00am July 02, 2019 8:26a m Hydrocodone -Acetaminop hen 5-325 mg tablet Discont inued 5 - 325 MG PO Four times daily 0 2019June 18, 2019 5:31p m Alprazolam 0.5 mg tablet Discont inued 0.5 MG PO Daily 10 10 2019 9:05am June 18, 2019 5:28p m Albuterol Sulfate (Ventolin Hfa) 90 mcg/actuati on HFA aerosol inhaler Discont inued 2 INH INHALA TION every 6 to 8 hours as needed for shortness of breath or wheezing 2019 1:00am July 02, 2019 8:26a m Doxycycline Hyclate 100 mg tablet Discont inued 100 MG PO Twice daily 10 5 2019 1:00am July 02, 2019 8:26a m Alprazolam 0.5 mg tablet Discont inued 0.5 MG PO Q6H as needed for Anxiety June 18, 2019 12:00a m June 26, 2019 10:53 am Hydrocodone -Acetaminop hen 5-325 mg tablet Discont inued 1 TAB PO Q6H as needed for Pain June 18, 2019 12:00a m June 26, 2019 10:53 am Potassium Chloride (Klor-Con 10) 10 mEq Tablet Extended Release Discont inued 10 MEQ PO 3x/Day with meals 60 30 June 26, 2019 12:00a m July 02, 2019 8:26a m Mesalamine (Lialda) 1.2 gram Tablet,Selam yed Release (Dr/Ec) Discont inued 4.8 GM PO Daily 360 90 June 26, 2019 12:00a m June 26, 2019 2:54p m Hydrocodone -Acetaminop hen 5-325 mg tablet Discont inued 1 TAB PO Q6H as needed for Pain 20 5 June 26, 2019 10:50a m July 02, 2019 8:26a m Alprazolam 0.5 mg tablet Discont inued 0.5 MG PO Q6H as needed for Anxiety 0 June 26, 2019 10:50a m July 02, 2019 8:26a m Baclofen 10 mg tablet Discont inued 10 MG PO Four times daily as needed for Muscle Spasm 20 5 June 26, 2019 10:50a m July 02, 2019 8:26a m Hydrocodone -Acetaminop hen 5-325 mg tablet Discont inued 1 TAB PO As Directed as needed for Pain Novemb er 2021 1:00am Febru simón 2023 9:38a m Multivitami n Tablet Active 1 TAB PO Daily Novemb er 2021 1:00am Complies with drug therapy Mesalamine 0.375 gram capsule,ext ended release 24hr Discont inued 1.5 GM PO Every morning 120 Novemb er 2021 1:00am June 22, 2023 1:12p m Ibandronate 150 mg tablet Discont inued 150 MG PO May 28, 2023 12:00a m May 28, 2023 10:00 am 1 tablet 60 minutes before the first food, beverage or medicine of the day with plain water Orally Trazodone 50 mg tablet Discont inued 50 MG PO Daily at bedtime as needed May 28, 2023 12:00a m May 28, 2023 10:00 am Dicyclomine 20 mg tablet Discont inued 20 MG PO Four times daily 120 30 June 05, 2023 1:16pm August 11, 2023 11:12 am Take 1 tablet orally four times a day Hydrocodone -Acetaminop hen 5-325 mg tablet Discont inued 1 TAB PO Every 8 hours as needed for pain 90 September 24, 2023 Augus t 2023 10:33 am Pregabalin (Lyrica) 150 mg capsule Discont inued 150 MG PO Twice daily 60 September 24, 2023 12:00a m Augus t 2023 10:33 am Dicyclomine 20 mg tablet Discont inued 20 MG PO Four times daily as needed August 11, 2023 11:09a m Janua ry 2024 2:33p m Albuterol Sulfate 2.5 mg /3 mL (0.083 %) solution for nebulizatio n Active 3 ML INHALA TION Every 6 hours August 11, 2023 12:00a m FreeTextSi mL as needed Inhalation every 6 hrs; Note: Source Status: Taking; Refills: 2; Qty: 360 ml; Provider: Kathy De Jesus Complies with drug therapy Baclofen 20 mg tablet Discont inued 10 MG PO Every 6 hours as needed August 11, 2023 12:00a m September 24, 2023 1:23p m Azithromyci n 250 mg tablet Discont inued 0 PO .COMPLEX 6 August 11, 2023 12:00a m September 24, 2023 1:21p m For 250 mg dose pack: take 500 mg today (day 1), then 250 mg for 4 days (days 2-5) PO Prednisone 20 mg tablet Discont inued 20 MG PO .COMPLEX 10 August 11, 2023 12:00a m September 24, 2023 1:23p m Take 2 tabs po daily x 5 days Baclofen 20 mg tablet Discont inued 20 MG PO Daily Octobe r 2023 12:00a m July 04, 2024 3:25p m Trazodone 100 mg tablet Discont inued 200 MG PO Daily at bedtime as needed [facility] r 2023 12:00a m June 02, 2024 12:36 pm Hydrocodone -Acetaminop hen 5-325 mg tablet Discont inued 1 TAB PO Every 8 hours 90 30 [facility] r 2023 [facility] 2023 5:13p m Albuterol Sulfate 90 mcg/actuati on HFA aerosol inhaler Active 2 PUFF INHALA TION EVERY 4-6 HOURS as needed for bronchospas m 6.7 [facility] r 2023 12:00a m Complies with drug therapy Escitalopra m Oxalate 10 mg tablet Discont inued 20 MG PO Once 2023 9:21am Octob er 2023 8:35a m Trazodone 100 mg tablet Discont inued 150 MG PO Daily at bedtime 2023 9:22am Octob er 2023 1:32p m Omeprazole 40 mg capsule,del ayed release(DR/ EC) Active 40 MG PO Daily 90 90 2023 12:00a m Complies with drug therapy Linaclotide (Linzess) 290 mcg capsule Discont inued 290 MCG PO Daily 30 30 2023 9:34am June 23, 2024 1:13p m Pregabalin (Lyrica) 150 mg capsule Discont inued 150 MG PO Twice daily June 22, 2023 12:00a m August 22, 2023 11:55 am Hydrocodone -Acetaminop hen 5-325 mg tablet Discont inued 1 TAB PO Every 8 hours as needed for pain 90 June 22, 2023 July 17, 2023 9:50a m Ciprofloxac in Hcl 250 mg tablet Discont inued 250 MG PO Twice daily June 22, 2023 12:00a m July 26, 2023 3:05p m Escitalopra m Oxalate (Lexapro) 10 mg tablet Discont inued 10 MG PO Daily July 26, 2023 12:00a m October 10, 2023 8:36a m Trazodone 100 mg tablet Discont inued 100 MG PO Daily at bedtime July 26, 2023 12:00a m Septe mber 2023 9:22a m Dicyclomine 20 mg tablet Active 20 MG PO Four times daily as needed for abdominal pain 2024 2:32pm Complies with drug therapy Amoxicillin -Pot Clavulanate 500-125 mg tablet Discont inued 1 TAB PO Twice daily 2024 1:00am June 23, 2024 1:11p m Methylpredn isolone 4 mg tablets,dos e pack Discont inued 0 PO per package directions 2024 1:00am June 23, 2024 1:13p m PO PER PKG DIR for 6 days Hydrocodone -Acetaminop hen 5-325 mg tablet Discont inued 1 TAB PO Every 8 hours 2024 Febru simón 2024 9:35a m Cephalexin 500 mg capsule Discont inued 500 MG PO Twice daily er 2023 1:00am 2024 2:26p m Immunizations Immunization Event Date Not Given Reason Dose Number [employer] A[employer] Lot Number Vaccine Information Statement (VIS) Detail Administration Location COVID-19 mRNA Comirtay ([employer]) July 09, 2020 COVID-19 mRNA Comsofía ([employer]erra) July 30, 2020 COVID-19 mRNA, Comirnaty ([employer]erra) January 31, 2021 Fluzone TIV High-Dose [id number]+ December 25, 2023 [id number] [facility] influenza, unspecified formulation January 07, 2018 influenza, unspecified formulation December 26, 2019 influenza, unspecified formulation December 15, 2020 influenza, unspecified formulation November 28, 2021 Pneumococcal Conjugate Vaccine, 13 valent September 19, 2019 Pneumococcal Polysacc. Vaccine, 23 valent January 10, 2005 Pneumococcal Polysacc. Vaccine, 23 valent January 18, 2013 Tetanus, Diphtheria adult, 5 Lf pres free abs December 07, 2016 Shingles (Zoster) April 24, 2016 Medical Equipment Device Date Implanted Device Details Orthopaedic cement, non-medicated June 23 [employer]: [id number] Issuing Agency: [employer] Device Id: [id number] Expiration Date: 2022-01-09 Lot Number: [id number] Procedures Procedure Date Performed Status MR MRCP July 05, 2024 8:53am complete d Relevant Diagnostic Tests and/or Laboratory Data Laboratory Results Test Collection Date/Time Result Date/Time Result Interpretation Reference Range Result Comment Performing Site Creatinine August 21, 2024 1:43pm August 21, 2024 1:43pm 0.73 mg/dL 0.55-1.02 Estimated GFR () August 21, 2024 1:43pm August 21, 2024 1:43pm >60 >=60 mL/min/1.7 3m 2 Estimated GFR (Non- August 21, 2024 1:43pm August 21, 2024 1:43pm >60 >=60 mL/min/1.7 3m 2 Diagnostic Imaging Reports Author Vitaly Perkins [facility] Authored July 05, 2024 9:4 5am Report Dictated Date/Time Dictated By Status Radiology Report July 05, 2024 9:45am Vitaly Perkins MD completed [facility] [place] [address] MRI Report Signed Patient: Afia Maxwell MR#: [id number] : 1955 Acct:[id number] Age/Sex: 69 / F ADM Date: 5 Loc: MR Room: Type: [facility] Attending Dr: Horacio Erwin MD Copies to: Horacio Erwin MD~ Ordering Provider: Horacio Erwin MD Date of [...] Perkins M.D. 07/05/2024 9:55 AM Dictation Location: [place] [address] Transcribed By: [facility] 07/05/24 0955 Dictated By: Vitaly Perkins MD 07/05/24 0945 Signed By: <Electronically signed by Vitaly Perkins MD in OV> 07/05/24 0955 Vital Signs Vital Reading Result Reference Range Collection Date/Time Height 62 [in_i] September 23, 2024 1:04pm Weight 46.89 kg September 23, 2024 1:04pm Heart Rate 86 /min 60-100 September 23, 2024 1:04pm Oxygen saturation by Pulse oximetry 92 % 95-10 0 September 23, 2024 1:04pm BP Systolic 110 mm[Hg] 100-140 September 23, 2024 1:04pm BP Diastolic 71 mm[Hg] 60-100 September 23, 2024 1:04pm BMI (Body Mass Index) 18.8 kg/m2 September 092024 1:04pm Advance Directives Advance Directive Response Recorded Date/ Time Advance Directives No April 18, 2019 3:20am Insurance Providers Guarantor Afia Maxwell Address [address] [facility] [address] Contact Info. Home Phone: Payer Policy Id Subscriber's Name Subscriber Id Mishaiv e Date Expiration Date Medicare [id number] Afia Maxwell [id number] [employer] [facility] [id number] Afia Maxwell [id number] Encounters Encounter Location(s) Arrival/Admit Date Discharge/Depart Date Provider(s) Departed Clinical -[facility] July 05, 2024 8:51am July 05, 2024 8:52am Horacio Erwin MD Non-patient / Non-visit -[facility] August 21, 2024 1:43pm ANUSHKA Engel Departed Physician/Prov ider Office Visit -[facility] September 23, 2024 1:03pm September 23, 2024 1:29pm Yolanda Chavez MD
--- OUTSIDE RECORDS SUMMARY | 2024-09-25 11:00 | XMS_ITS | Encounter Summary ---
Author Organization [facility] Address [address] [place] [address] Phone Care Team Providers Care Bet Taker Name Role Phone Unavailable Primary Care Provider Unavailabl e Encounter Details Date Type Department Care Team (Late st Contact Info) Description 12/01/[address] [facility] [address] [place] [address] Conversion, Onbase Social History Tobacco Use Types [...]
--- OUTSIDE RECORDS SUMMARY | 2024-09-25 11:00 | XMS_ITS | Encounter Summary ---
Author Organization [facility] Address [address], [address] [place] [address] Care Team Providers Care Shipping Inspector Name Role Phone Yolanda Chavez MD Primary Care Provider [phone] Encounter Details Date Type Department Care Team (Late st Contact Info) Description 06/18/2023 Telephone MePlease Special Procedure [address] [place], [place] [id number] Jacque Estevez RN Social History Tobacco Use [...] on filedocumented in this encounter Care Teams Shipping Inspector Relationship Specialty Start Date End Date Yolanda Chavez MD [address] [place] [id number] PCP - General Family Medicine 06/13/23 documented as of this encounter
--- OUTSIDE RECORDS SUMMARY | 2024-09-25 11:00 | XMS_ITS | Clinical Summary ---
Author Organization [facility] Address [address] [place] [address] Care Team Providers Care Electronics Tech Name Role Phone Yolanda Chavez MD Primary Care Provider [phone] Allergies Active Allergy Reactions Criticality Noted Date Comments Cefdinir Other: See Comments 06/22/2023 Ibuprofen Unknown 06/22/2023 Nsaids (Non-Steroidal Anti-Inflammatory Drug) Other: See Comments 05/15/2023 Other Reaction(s): diarrhea, itching and rash Xbhqaqe-Vtl-Reu Reductase Inhibitors Unknown 01/23/2023 Other Reaction(s): Unknown [...] Department Care Team Description 07/15/2024 Telephone Gastroenterology [address] [place] [address] Everett Dunlap MD from Last 3 Months Family [...] is lower risk 4 12/19/2023 Data from: https://www.neighborhoodatlas.medicine.[facility].edu/. Last address used for calculation [address] [...] 01/31/2021, 07/30/2020, 07/09/2020 Advance Directive Discussion 03/12/2024 Medicare Advantage Annual We llness Visit 03/12/2024 Pneumococcal Vaccine: 50+ (3 of 3 - PCV20 or PCV21) 09/18/2024 09/19/2019, 01/18/2013, 10/25/2011, Additional history exists Influenza Vaccine (#1) 2024 , 10/24/2022, 12/24/2021, Additional history exists Diabetes Screening 06/12/2026 06/13/2023 Procedures Procedure Name Priority Date/Time Associated Diagnosis Comments EXTERNAL IMAGING 08/15/2024 2:39 PM EDT MRI OUTSIDE CD DICOM IMPORT 07/05/2024 from Last 3 Months Results * EXTERNAL IMAGING (08/15/2024 2:39 PM EDT) Anatomical Region Laterality Modality Other us External Provider PA-C RADIOLOGY Final Res ult * SD-MR MRCP IMPORT (07/05/2024) Anatomical Region Laterality Modality Other 07/05/2024 Narrative 07/17/2024 2:21 AM EDT Images were obtained outside of [facility] Procedure Note Provider, [facility] - 07/17/2024 Images were obtained outside of [facility] Cc Provider MRI Final Result from Last 3 Months Insurance [facility] MEDICARE Care Teams Electronics Tech Relationship Specialty Start Date End Date Yolanda Chavez MD [facility] [id number] PCP - General Family Medicine 11/30/23
--- OUTSIDE RECORDS SUMMARY | 2024-09-25 11:00 | XMS_ITS | Patient Health Record ---
Author Organization [facility] Address [address] [place] [address] Care Team Providers Care Recyclable Materials Distributor Name Role Phone Jayesh Hummel MD Primary Care Provider Paco Romeo Unavailable [phone] Allergies Allergen (clinical drug ingredient) Drug/Non Drug [...] Problem Status W/U Status Risk Notes Problem 599004100 Closed fracture of right tibial plateau, initial encounter (S82.141A) Active confirmed Problem 395641843 Closed disp bicondylar fracture of right tibia with routine healing (S82.141D) Active confirmed Plan Of Treatment Pending Test Test Name Order Date DME TROM brace 12/04/2022 Insurance Providers Payer Name Payer Address Payer Phone Subscriber Number Group Number Insured Name Patient Relationship to Insured Coverage Start Date Coverage End Date Medicare [employer] [address] [address] [place] [address] [id number] TYRESE GUTIERRES Self - patient is the [...]
--- OUTSIDE RECORDS SUMMARY | 2024-09-25 11:00 | XMS_ITS | Clinical Summary ---
Author Organization [facility] Address [address] [place] [address] Phone Care Team Providers Care Waterproofing Mixer Name Role Phone Unavailable Primary Care Provider [...] Additional history exists Influenza Vaccine (#1) 2024 3, 12/24/2021, 11/28/2021, Additional history exists Colonoscopy 01/21/2032 [...] complete this topic Insurance [employer] GOLD CHOICE [place] [id number] [employer] CHOICE
--- OUTSIDE RECORDS SUMMARY | 2024-09-25 11:00 | XMS_ITS | Clinical Summary ---
Author Organization [employer] [facility] tem Address [id number] [place] [address] Care Team Providers Care Drainlayer Name Role Phone Raj Phani Liza HAWK Primary Care Provider [phone] Allergies Active Allergy Reactions Criticality Noted Date [...] Most Recently Relevant to Health Maintenance Insurance [facility] MEDICARE Care Teams Drainlayer Relationship Specialty Start Date End Date Phani Anthony DO [address] [place] [address] PCP - General 09/21/17
--- OUTSIDE RECORDS SUMMARY | 2024-09-25 11:00 | XMS_ITS | Clinical Summary ---
Author Organization [facility] Address [address], [address] [place] [address] Care Team Providers Care Car Bracer Name Role Phone Yolanda Chavez MD Primary Care Provider [phone] Allergies Active Allergy Reactions Criticality Noted Date [...] Wellness Visit (Medicare Advantage) 03/12/2024 Flu vaccine (#1) 10/10/2024 10/24/2022, , 11/28/2021, Additional history exists Respiratory Syncytial Virus [...] this topic Medical Devices Implanted Type Area Rail Express Clerk Device Identifier Shelf Expiration Date Model / Serial / Lot Cement Bne 20 Gm Hi Visc Radiopaque Vertaplex Hv - [id number] Implanted:Qty: 1 on 06/15/2023 by Ricardo Carbajal MD at [facility] Cement Back JENNIFER MICHELL-WD 11/09/2024 [id number] / / [id number] Description:Thoracic 11 & th oracic 12 Insurance [facility] MEDICARE Care Teams Car Bracer Relationship Specialty Start Date End Date Yolanda Chavez MD [address] [place] [address] PCP - General Family Medicine 06/13/23
--- OUTSIDE RECORDS SUMMARY | 2024-09-25 11:00 | XMS_ITS | Clinical Summary ---
Author Organization [facility] Address [address] [place] [address] Care Team Providers Care Ticket Dispatcher Name Role Phone Yolanda Chavez MD Primary Care Provider [phone] Allergies Active Allergy Reactions Criticality Noted Date Comments Sulfamethoxazole-Trimethopri m 01/23/2023 Ketorolac 10/01/2017 Rofecoxib 10/01/2017 Statins Unknown 01/23/2023 Varenicline 10/01/2017 Other Reaction(s): Unknown Medications traZODone (Desyrel) 50 MG tablet Take 50 mg by mouth as needed at bedtime. 3 Active pregabalin (Lyrica) 150 MG capsule Take 150 mg by mouth in the morning and 150 mg before bedtime. 3 Active pantoprazole (ProtoNix) 40 MG EC tablet 3 Active Linzess 290 MCG capsule take 1 capsule by mouth twice a day ON AN EMPTY STOMACH 3 Active hydrOXYzine HCl (Atarax) 25 MG tablet 3 Active HYDROcodone-richelle taminophen (Hudson) 10-325 MG tablet Take 1 tablet by mouth every 6 (six) hours if needed. 3 Active escitalopram (Lexapro) 10 MG tablet 3 Active ALPRAZolam (Xanax) 0.5 MG tablet Take 0.5 mg by mouth in the morning and 0.5 mg in the evening and 0.5 mg before bedtime. Active albuterol (2.5 MG/3ML) 0.083% nebulizer solution inhale contents of 1 vial in nebulizer by mouth every 6 hours if needed 3 Active Active Problems Problem Noted Date Diagnosed Date Lumbar spondylosis 10/01/2017 Impaired fasting glucose 10/01/2017 IBS (irritable bowel syndrome) 10/01/2017 Hyperlipidemia 10/01/2017 HBV (hepatitis B virus) infection 10/01/2017 Fibromyalgia 10/01/2017 Depression 10/01/2017 CVD (cardiovascular disease) 10/01/2017 Anxiety disorder 10/01/2017 Immunizations Immunization Administration Dates Next Due Influenza, High Dose Seasona l, Preservative Free 12/24/2021 Influenza, High-dose Seasona l, Quadrivalent, Preservative Free 10/24/2022 Influenza, Injectable, MDCK, preservative free 12/10/2013 Influenza, Seasonal, Quadriv alent, Adjuvanted 11/28/2021 Influenza, injectable, MDCK, preservative free, quadrivalent 01/29/2019 Influenza, injectable, MDCK, quadrivalent 2017 Influenza, seasonal, injectable 12/07/2016 Influenza, trivalent, adjuvanted 12/15/2020 Pneumococcal Polysaccharide PPSV23 10/25/2011,,02/05/2001 Zoster, live 10/18/2016,04/24/2016 Family History Medical History Relation Name Comments Heart disease Mother Relation Name Status Comments Father Mother Social History Tobacco Use Types Packs/Day Years Used Date Smoking Tobacco: Former Cigarettes Smokeless Tobacco: Never Tobacco Cessation:Counseling Given: Not Answered Alcohol Use Standard Drinks/Week Comments Not Currently 0 (1 standard drink = 0.6 oz pur e alcohol) Comments Unknown Sex and Gender Information Value Date Recorded Sex Assigned at Not on file Legal Sex Female 7:33 PM EDT Gender Identity Not on file Sexual Orientation Not on file Last Filed Vital Signs Vital Sign Reading Time Taken Comments Blood Pressure 129/80 04/26/2022 12:00 PM EST Pulse - - Temperature - - Respiratory Rate - - Oxygen Saturation - - Inhaled Oxygen Concentration - - Weight 52.2 kg (115 lb) 01/23/2023 12:25 PM EST Height 157.5 cm (5' 2 ) 01/23/2023 12:25 PM EST Body Mass Index 21.03 01/23/2023 12:25 PM EST Plan of Treatment Health Maintenance Due Date Last Done Comments CT Colonography 1955 Colonoscopy 1955 Colorectal Cancer Screening 1955 FIT-DNA 1955 FIT 1955 FOBT 1955 Sigmoidoscopy 1955 Mammogram 1995 Pneumococcal Vaccine: 65+ Ye ars (2 of 2 - PCV) 10/24/2012 10/25/2011, 01/10/2005, 02/05/2001 Influenza Vaccine (#1) 2024 , 12/24/2021, 11/28/2021, Additional history exists Insurance [facility] MEDICARE ADVANTAGE Care Teams Ticket Dispatcher Relationship Specialty Start Date End Date Yolanda Chavez MD PCP - General Family Medicine 11/22/22
--- NOTE | 2024-09-25 11:39 | PM.CN ---
Consult Note: HPI Data of Consult Patient: known to practice within the last 3 years Requesting Physician: Jaymie Duncan NP Primary Care Provider: Yolanda Chavez MD Consult Narrative Reason for consult: back pain Narrative: Afia Maxwell a pleasant 69 year old female presents for evaluation of chronic upper and lower back pain, hx of extensive compression fractures and scoliosis. pain 8/10 increasing to 10/10 with activity and lifting. utilizing norco, tylenol, baclofen lyrica through PCP with mild relief without side effects. has failed > 6 weeks of PT/HEP, heat, ice, tylenol and cannot take NSAIDs due to GI upset. recently underwent thoracic/lumbar xrays and MRI, see EHR and paper chart for further details. since last visit denies falls/injury. recently underwent bilateral T7-8 T8-9 MBB #1 with 80% improvement in pain while anesthetized. pre-op pain up to 10/10 post op pain 1-2/10 for at least 4 hours. pt noted significant improvement in pain with cleaning, doing dishes, and housework. cc:: CC: Jaymie Duncan NP Review of Systems ROS Musculoskeletal Reports: back pain and joint pain [facility] Medical History (Updated 09/04/24 @ 13:27 by Jaymie Duncan NP) Fall �W19.XXXA - Unspecified fall, initial encounter (ICD-10) Fracture, tibia �S82.209A - Unspecified fracture of shaft of unspecified tibia, initial encounter for closed fracture (ICD-10) Compression fracture Compression fracture of lumbar vertebra with routine healing �S32.000D - Wedge compression fracture of unspecified lumbar vertebra, subsequent encounter for fracture with routine healing (ICD-10) Compression fracture of thoracic vertebra with routine healing �S22.000D - Wedge compression fracture of unspecified thoracic vertebra, subsequent encounter for fracture with routine healing (ICD-10) Dyslipidemia �E78.5 - Hyperlipidemia, unspecified (ICD-10) Venous insufficiency �I87.2 - Venous insufficiency (chronic) (peripheral) (ICD-10) Chronic bronchitis with productive mucopurulent cough �J41.1 - Mucopurulent chronic bronchitis (ICD-10) Cervical spondylosis �M47.812 - Spondylosis without myelopathy or radiculopathy, cervical region (ICD-10) Osteoporosis �M81.0 - Age-related osteoporosis without current pathological fracture (ICD-10) COPD (chronic obstructive pulmonary disease) �J44.9 - Chronic obstructive pulmonary disease, unspecified (ICD-10) Hypoxia �R09.02 - Hypoxemia (ICD-10) Thoracic spondylosis �M47.814 - Spondylosis without myelopathy or radiculopathy, thoracic region (ICD-10) Lumbar spondylosis �M47.816 - Spondylosis without myelopathy or radiculopathy, lumbar region (ICD-10) Pneumothorax �J93.9 - Pneumothorax, unspecified (ICD-10) Hepatitis �K75.9 - Inflammatory liver disease, unspecified (ICD-10) GI bleed �K92.2 - Gastrointestinal hemorrhage, unspecified (ICD-10) Upper back pain �M54.9 - Dorsalgia, unspecified (ICD-10) Neck pain �M54.2 - Cervicalgia (ICD-10) Low back pain �M54.50 - Low back pain, unspecified (ICD-10) Osteoarthritis �M19.90 - Unspecified osteoarthritis, unspecified site (ICD-10) Anxiety �F41.9 - Anxiety disorder, unspecified (ICD-10) TIA (transient ischemic attack) �G45.9 - Transient cerebral ischemic attack, unspecified (ICD-10) Diverticulitis �K57.92 - Diverticulitis of intestine, part unspecified, without perforation or abscess without bleeding (ICD-10) Irritable bowel �K58.9 - Irritable bowel syndrome without diarrhea (ICD-10) Ulcerative colitis �K51.90 - Ulcerative colitis, unspecified, without complications (ICD-10) Hiatal hernia �K44.9 - Diaphragmatic hernia without obstruction or gangrene (ICD-10) Acid reflux �K21.9 - Gastro-esophageal reflux disease without esophagitis (ICD-10) Chronic cough �R05.3 - Chronic cough (ICD-10) Former smoker �Z87.891 - Personal history of nicotine dependence (ICD-10) COPD (chronic obstructive pulmonary disease) �J44.9 - Chronic obstructive pulmonary disease, unspecified (ICD-10) Emphysema lung �J43.9 - Emphysema, unspecified (ICD-10) Angina at rest �I20.8 - Other forms of angina pectoris (ICD-10) Surgical History H/O carpal tunnel repair �Z98.890 - Other specified postprocedural states (ICD-10) H/O kyphoplasty �Z98.890 - Other specified postprocedural states (ICD-10) History of hysterectomy �Z90.710 - Acquired absence of both cervix and uterus (ICD-10) Family History Mother Family history of CHF (congestive heart failure) Family history of COPD (chronic obstructive pulmonary disease) Family history of diabetes mellitus Family history of stroke Grandmother Family history of cancer Family history of diabetes mellitus Social History Within the past year, how often did you have a drink containing alcohol: never Within the past year, how many standard drinks containing alcohol did you have on a typical day: 1 or 2 Within the past year, how often did you have six or more drinks on one occasion: never Total score: 0 Score interpretation: A score less than 3 is consistent with normal alcohol consumption. Smoking status: Former smoker Non-prescribed substance use: denies use Previous occupational history: retired Highest level of school completed/degree received: high school graduate Are you now , , , , never or living with a partner: In a typical week, how many times do you talk on the telephone with family, friends, or neighbors: 3 or more times per week How often do you get together with friends or relatives: 3 or more times per week How often do you attend confucianism or evangelical services: never Do you belong to any clubs or organizations such as confucianism groups unions, fraternal or athletic groups, or school groups: no Total score: 1 Score interpretation: A score of less than or equal to 1 indicates the most socially isolated. Little interest or pleasure in doing things: not at all Feeling down, depressed, or hopeless: not at all Feel stressed/tense/nervous/anxious/difficulty sleeping: not at all Do you think of yourself as: straight/heterosexual Gender Identity: female Meds Home Medications and Allergies Home Medications �Medication �Instructions �Recorded �Confirmed �Type albuterol sulfate 90 mcg/actuation 2 inh inhalation Q4H PRN shortness 09/06/22 09/15/24 History aerosol inhaler of breath or wheezing dicyclomine 20 mg tablet 20 mg PO QID 09/06/22 09/15/24 History hydrocodone 5 mg-acetaminophen 325 1 tab PO TID PRN pain 09/06/22 09/15/24 History mg tablet pantoprazole 40 mg tablet,delayed 40 mg PO DAILY 09/06/22 09/15/24 History release trazodone 50 mg tablet 50 mg PO BEDTIME PRN sleep 09/06/22 09/15/24 History escitalopram oxalate 10 mg tablet 10 mg PO DAILY 01/13/23 09/15/24 History (Lexapro) pregabalin 150 mg capsule (Lyrica) 150 mg PO BID 01/13/23 09/15/24 History baclofen 20 mg tablet 5 mg PO BEDTIME 08/07/24 09/15/24 History ibandronate 150 mg tablet 150 mg PO .monthly 08/07/24 09/15/24 History Allergies Allergy/AdvReac Type Severity Reaction Status Date / Time sulfamethoxazole (From Allergy Mild Diarrhea Verified 09/15/24 07:17 Bactrim) trimethoprim (From Bactrim) Allergy Mild Diarrhea Verified 09/15/24 07:17 ketorolac (From Toradol) Allergy Unknown Verified 09/15/24 07:17 NSAIDS (Non-Steroidal Allergy Unknown Verified 09/15/24 07:17 Anti-Inflamma rofecoxib (From Vioxx) Allergy Unknown Verified 09/15/24 07:17 varenicline (From Chantix) Allergy Unknown Verified 09/15/24 07:17 Exam Narrative Exam Narrative: diffuse hyperalgesias generalized tenderness noted to T6-L5, bilateral SI joint tenderness, +SLR, paresthesias to BLE, R<L Constitutional Documenting provider has reviewed patient's vital signs: yes Common normals: no apparent distress, oriented x3, healthy appearing and alert General appearance: cooperative Nutritional appearance: cachectic and thin HENMT Common normals: normocephalic, hearing grossly normal bilaterally and moist oral mucous membranes Head and scalp: normocephalic Eye Common normals: PERRL Pupil: PERRL Neck & C-Spine Common normals: full ROM General: normal visual inspection Chest Common normals: inspection of chest normal Respiratory Common normals: normal respiratory effort, no retractions and no use of accessory muscles Back & Pelvis Thoracic spine/upper back: ROM limited, pain with ROM, thoracic spinal tenderness, paraspinal muscle tenderness and kyphosis present Neuro Common normals: oriented x3 Sensorium/orientation: alert Gait (neuro): assistive device used walker Psych Common normals: mental status grossly normal, thought process normal, cooperative, affect normal, speech normal and activity/motor behavior normal Speech: normal speech Thought process: normal thought process Results Additional Findings Additional findings: If on a controlled substance or opioids, I have checked an [place]AR[place] report on this patient and there are no aberrancies noted in the prescribing history.��If on a controlled substance or opioid a drug screen was completed and reviewed within the last year, and if there has not been a drug screen completed we ordered one today to monitor higher risk, state monitored pain medication use. As part of providing excellent, safe, comprehensive care, the following was completed at our patient's visit: 1. A medication reconciliation and review to ensure accurate knowledge of current/active medications, including asking our patients to inform us about any qfdk-fic-falqael medications or herbal remedies/nutritional supplements/alternative remedies. 2. A review to specifically ensure our patients have had annual screening for screening for depression, screening for tobacco use, and screening for unhealthy alcohol use. For concerning screenings had a discussion with the patient, provided patient education, and recommended follow-up with primary care provider when appropriate. If patient noted with a risk of falling, they received education on strength, gait, and balance training to prevent future risk of falling. Portions of this note may have been carried over from the previous visit and updated as appropriate. Please note this office utilizes paper charting in addition to the electronic medical record. A list of current medications, vitals, and PMH is available there as the clinical staff outside of myself do not have access to [employer] charting during the clinic day operations. As part of providing quality comprehensive care the current medications, vitals, and PMH were reviewed in the paper chart. Assessment and Plan Assessment and Plan (1) Thoracic spondylosis: Assessment and Plan: The patient has had over 3 months of moderate to severe thoracic and lumbar pain with functional impairment and inadequate response to conservative care including NSAIDS (unless there are contraindication such as concurrent blood thinners), multiple oral or topical pain medications, and home exercise program/physical therapy.� Patient has completed >6 weeks of guided home exercise program and/or formal physical therapy program without relief of their symptoms.� The Oswestry Disability Index was completed, and the patient scored a 62%.� The patient noted the following:�� moderate to severe pain impacting ADLs, sitting, standing, walking, sleeping, social life, travel We discussed the risks and benefits of the procedure with the patient, and we are NOT planning on using sedation as outlined in the guidelines from Medicare unless there is a documented reason that sedation would be strongly recommended.�� �The procedure will be completed with fluoroscopic guidance.� (2) Thoracogenic scoliosis, thoracolumbar region: (3) Lumbar spondylosis: (4) Failed back syndrome: (5) Lumbar stenosis with neurogenic claudication: Plan 69 year old female with chronic severe upper and lower back pain, extensive hx of compressions fractures and osteoporosis. recent thoracic and lumbar xrays/MRIs consistent with significant thoracic/lumbar scoliosis and degenerative changes, mild stenosis of lumbar spine. at this time pt would like to address chronic upper back pain. proceed with bilateral T7/8 T8/9 facet medial branch block x2 working towards RFA for facet mediated back pain. continue medications through PCP, however patient is asking for increase in her baclofen. i will call her pcp and confirm her current medication regimen as we do not have a recent consult note. f/u after each nerve block
== END 2024-09-25 10:58 | disposition home or self-care (01) ==
LOC: PM 10:57
PROVIDERS: PCP Family Medicine; Visit Provider Nurse Practitioner
DX: M47.814 Spondylosis without myelopathy or radiculopathy, thoracic region (principal); M41.35 Thoracogenic scoliosis, thoracolumbar region; M47.816 Spondylosis without myelopathy or radiculopathy, lumbar region; M96.1 Postlaminectomy syndrome, not elsewhere classified; M48.062 Spinal stenosis, lumbar region with neurogenic claudication
CPT/HCPCS: G0463

== ENCOUNTER 2024-10-20 11:08 | Day surgery (SDC) | payer MEDICARE, SELFPAY ==
[2024-10-20 11:22] VITALS: BP 139/78; PULSE 56; TEMP 36.6; O2SAT 98
[2024-10-20 11:39] VITALS: BP 131/60; BP 149/72; PULSE 60; PULSE 62; O2SAT 95; O2SAT 96
[2024-10-20] MEDS: BUPIVACAINE HCL 0.25% PF 25 MG/10 ML VIAL 6 ML INJ (11:41)
--- NOTE | 2024-10-20 11:43 | W.PM.PROCNOT ---
Date of procedure: 10/20/24 Pre-op diagnosis: Pain due to thoracic spondylosis without myelopathy Post-op diagnosis: same as pre-op Procedure: Procedure: Bilateral T7-8, 8-9 medial branch block Medications: Bupivacaine 0.25% 6cc The patient was seen and examined in the preoperative holding area.? An informed consent was obtained and placed on the chart.? The patient was brought to the medical procedure unit and placed in the prone position.? A timeout was completed verifying correct patient, procedure site, positioning, plan, and special equipment.? Using aseptic technique, the needle was placed at left T7. Under direct fluoroscopic visualization a Quincke-tipped spinal needle was advanced to the junction of the superior articulating process with the transverse process at the designated medial branch segment.? Preceded by negative aspiration, the above-mentioned injectate was placed in 1 mL aliquots.? The procedure was repeated at left T8, 9.? The needle was removed and insertion site was covered. The same procedure, at the same levels, was completed on the right side. The patient was taken to the postprocedural recovery area and monitored for an appropriate length of time before found suitable for discharge in the company of a responsible adult. Anesthesia: Local Surgeon: Vickey Beasley Pathology: none sent Condition: stable Disposition: no change
== END 2024-10-20 11:47 | disposition home or self-care (01) ==
LOC: SURGOUT 11:08
PROVIDERS: PCP Family Medicine; Visit Provider Anesthesiology
DX: M54.6 Pain in thoracic spine (principal); M47.814 Spondylosis without myelopathy or radiculopathy, thoracic region
CPT/HCPCS: 64490; 64491; J0665

== ENCOUNTER 2024-10-23 12:41 | Outpatient (OUT) | payer MEDICARE, SELFPAY ==
--- OUTSIDE RECORDS SUMMARY | 2024-10-23 12:42 | XMS_ITS | Clinical Summary ---
Author Organization [facility] Address [address] [place] [address] Phone Care Team Providers Care Station Usher Name Role Phone Unavailable Primary Care Provider [...] Date Last Done Comments CT Colonography 1955 FIT-DNA (Cologuard) 1955 FIT [...] - Risk 60-74 years 1-dose series) 2015 MMR Vaccines (1 of 1 - Standard series) 11/15/2016 DTaP/Tdap/Td Vaccines (1 - Tdap) 12/08/2016 12/07/2016 Zoster Vaccines (2 of 3) 12/13/2016 10/18/2016, 04/12 Bone Density Scan 06/03/2020 COVID-19 Vaccine (4 - season) 2023 01/31/2021, [...] complete this topic Insurance [employer] GOLD CHOICE HU[employer] GOLD CHOICE
--- OUTSIDE RECORDS SUMMARY | 2024-10-23 12:42 | XMS_ITS | Clinical Summary ---
Author Organization [facility] tem Address [id number] [address] [place] [address] Care Team Providers Care Intermediate Manager Name Role Phone Raj Phani Liza HAWK Primary Care Provider [phone] Allergies Active Allergy Reactions Criticality Noted Date [...] Most Recently Relevant to Health Maintenance Insurance [facility] MEDICARE Care Teams Intermediate Manager Relationship Specialty Start Date End Date Phani Anthony DO [address] [place] [address] PCP - General 09/21/17
--- OUTSIDE RECORDS SUMMARY | 2024-10-23 12:42 | XMS_ITS | Clinical Summary ---
Author Organization [facility] Address [address] [place] [id number] Care Team Providers Care Info Specialist Name Role Phone Yolanda Chavez MD Primary Care Provider [phone] Allergies Active Allergy Reactions Criticality Noted Date Comments Cefdinir Other: See Comments 06/22/2023 Ibuprofen Unknown 06/22/2023 Nsaids (Non-Steroidal Anti-Inflammatory Drug) Other: See Comments 05/15/2023 Other Reaction(s): diarrhea, itching and rash Fwpbhkc-Cwh-Vau Reductase Inhibitors Unknown 01/23/2023 Other Reaction(s): Unknown [...] Active Active Problems No known active problems Family History Medical History Relation Comments Crohn's [...] is lower risk 4 12/19/2023 Data from: https://www.neighborhoodatlas.medicine.[facility].edu/. Last address used for calculation [address] [...] 3) 12/13/2016 10/18/2016, Bone Density Screening 06/03/2020 Advance Directive Discussion 03/12/2024 Medicare Advantage Annual We llness Visit 03/12/2024 Pneumococcal Vaccine: 50+ (3 of 3 - PCV20 or PCV21) 09/18/2024 09/19/2019, 01/18/2013, 10/25/2011, Additional history exists Influenza Vaccine (#1) 2024 , 10/24/2022, 12/24/2021, Additional history exists Diabetes Screening 06/12/2026 06/13/2023 Procedures Procedure Name Priority Date/Time Associated Diagnosis Comments EXTERNAL IMAGING 08/15/2024 2:39 PM EDT from Last 3 Months Results * EXTERNAL IMAGING (08/15/2024 2:39 PM EDT) Anatomical Region Laterality Modality Other External Provider [facility] Final Res ult from Last 3 Months Insurance [facility] MEDICARE Care Teams Info Specialist Relationship Specialty [place] [address] [place] [phone] PCP - General Family Medicine 11/30/23
--- OUTSIDE RECORDS SUMMARY | 2024-10-23 12:42 | XMS_ITS | Encounter Summary ---
Author Organization [facility] Address [address], [address] [place] [address] Care Team Providers Care Steel Plate Printer Name Role Phone Yolanda Chavez MD Primary Care Provider [phone] Encounter Details Date Type Department Care Team (Late st Contact Info) Description 06/18/2023 Telephone [facility] Special Procedure [address] [place], [place] [id number] Jacque Estevez RN Social History Tobacco Use [...] on filedocumented in this encounter Care Teams Steel Plate Printer Relationship Specialty Start Date End Date Yolanda Chavez MD [address] [place] [phone] PCP - General Family Medicine 06/13/23 documented as of this encounter
--- OUTSIDE RECORDS SUMMARY | 2024-10-23 12:43 | XMS_ITS | Clinical Summary ---
Author Organization [facility] Address [address], [address] [place] [address] Care Team Providers Care Lithopone Mill Worker Name Role Phone Yolanda Chavez MD Primary Care Provider [phone] Allergies Active Allergy Reactions Criticality Noted Date [...] this topic Medical Devices Implanted Type Area Nematology Teacher Device Identifier Shelf Expiration Date Model / Serial / Lot Cement Bne 20 Gm Hi Visc Radiopaque Vertaplex Hv - [id number] Implanted:Qty: 1 on 06/15/2023 by Ricardo Carbajal MD at [facility] Cement Back JENNIFER MICHELL-WD 11/09/2024 [id number] / / [id number] Description:Thoracic 11 & th oracic 12 Insurance [facility] MEDICARE Care Teams Lithopone Mill Worker Relationship Specialty Start Date End Date Yolanda Chavez MD [address] [place] [address] PCP - General Family Medicine 06/13/23
--- OUTSIDE RECORDS SUMMARY | 2024-10-23 12:43 | XMS_ITS | Encounter Summary ---
Author Organization [facility] Address [address] [place] [address] Phone Care Team Providers Care Electrical Appliance Repairer Name Role Phone Unavailable Primary Care Provider Unavailabl e Encounter Details Date Type Department Care Team (Late st Contact Info) Description 12/01/2022 Scanned Document [facility] [id number] [place] [phone] Conversion, Onbase Social History Tobacco Use Types [...]
--- OUTSIDE RECORDS SUMMARY | 2024-10-23 12:49 | XMS_ITS | CCD ---
Author Organization [facility] Care Team Providers Care Senior Lead Java Developer Name Role Phone Janna Pina Unavailable Shira Cunningham Unavailable Ambrose Torres Unavailable Kiran Barksdale Unavailable DO Phani Pruitt Primary Care Provider MD Kiran Barksdale Attending Provider Phani Pruitt Unavailable SHEILA Sanford Attending Provider [phone] Vanessa Sanford Unavailable OANH .SANTA Admitting Unavailable [...] Unavailable ZOE ., DR ARCHULETA Attending Unavailable WEST, DR JANNA Chavez Consulting Unavailable ZOE ., DR ARCHULETA Admitting Unavailable ZOE ., DR ARCHULETA Consulting Unavailable COLUMBA ., AINSLEY Attending Unavailable COLUMBA ., AINSLEY Admitting Unavailable COLUMBA ., AINSLEY Consulting Unavailable EDMOND, DR COHEN Primary Care Unavailable EDMOND, DR COHEN Admitting Unavailable EDMOND, DR COHEN Primary Care Unavailable EDMOND, DR COHEN Consulting Unavailable BALL, DR COHEN [...] Iqbal Unavailable Sandra Flores Unavailable MD Kiran Barksdale Attending Provider [phone] MD Nettie Iqbal Primary Care Provider [phone] MD Nettie Iqbal Attending Provider Unavailable Primary Care Provider UnavailPHANI [place] Primary Care Physician [place] RAMOS Attending Unavailable NO FAMILY, PHYSICIAN Primary Care Provider Unava ilable ROBIN FLANNERY Referring Unavailable ROBIN FLANNERY Referring Unavailable ROBIN FLANNERY Attending Unavailable MD Nettie Iqbal Attending Provider [phone] MD Nettie Iqbal Primary Care Provider ANUSHKA Kim Attending Provider Ana Kim Unavailable GABBY LO Referring Unavailable NETTIE IQBAL Primary Care Unavailable Nettie Iqbal MD Primary Care Provider GABBY LO Referring Unavailable NETTIE IQBAL Primary Care Unavailable MD Nettie Iqbal Attending Provider MD Horacio Erwin Attending Provider MD Nettie Iqbal Primary Care Provider Nettie Iqbal MD Primary Care Provider MD Sam Hare Attending Provider MD Horacio Erwin Attending Provider MD Nettie Iqbal Primary Care Provider [phone] MD Sam Hare Attending Provider [phone] SHEILA Barry Attending Provider [phone] JACI PERAZA Attending Unavailable JUAN C, KALALED Referring Unavailable NETTIE IQBAL Primary Care Unavailable Lilia Barry APRN Attending Provider [phone] Nettie Iqbal MD Primary Care Provider [phone] Sam Hare MD Attending Provider Nettie Iqbal MD Primary Care Provider Horacio Erwin MD Attending Provider Lilia Barry Attending Unavailable Lilia Barry Admitting Unavailable Horacio Erwin Attending Unavailable Horacio Erwin Admitting Unavailable Nettie Iqbal Primary Care Unavailable Nettie Iqbal Primary Care Unavailable Horacio Erwin Attending Unavailable Horacio Erwin Admitting Unavailable JUAN C, KHALED Attending Unavailable DAVIDSON IQBALIA E Primary Care Unavailable Jaymie Garnica Attending Provider [phone] Nettie Iqbal MD Attending Provider Ramos ROOT, Vickey Winkler Attending Unavailable Obed Lima APRN Attending Provider Allergies Allergy Classification Reported Allergen(s) Allergy Type Date of Onset Reaction(s) Facility (20 sources) cefdinir; Translations: [CEFDINIR] Drug Allergy Other: See Comments [facility] (20 sources) Ketorolac Drug Allergy Unknown, Diarrhea [facility] (20 sources) varenicline Drug Allergy Unknown, Muscle Pain [facility] (20 sources) vioxx, antiinflammatories Propensity to adverse reactions Unknown, Hives [facility] (20 sources) Statins Support Drug allergy Unknown Morphy [facility] [employer] Other (9 sources) varenicline; Translations: [Chantix] Drug Allergy Unknown [facility] (3 sources) Ketorolac Drug Allergy Diarrhea [facility] Other (20 sources) Sulfamethoxazole / Trimethoprim Drug Allergy 023 Unknown [facility] Other (20 sources) rofecoxib Drug Allergy Migraine [facility] (20 sources) NSAIDS (Non-Steroidal Anti-Inflamma Allergy to substance Diarrhea [facility] (20 sources) Eirkgbq-JWI-IzA Reductase Inhibitor Allergy to substance [facility] (2 sources) black walnut pollen extract; Translations: [QVLXJCA-CSR-IOM REDUCTASE INHIBITORS] Drug Allergy 023 [facility] (1 source) cefdinir Drug Allergy [facility] (1 source) Ketorolac Drug Allergy [facility] (3 sources) NSAIDs; Translations: [NSAIDS (NON-STEROIDAL ANTI-INFLAMMATORY DRUG)] Drug allergy (disorder) Other: See Comments [facility] (1 source) rofecoxib Drug Allergy [facility] (1 source) Sulfamethoxazole / Trimethoprim Drug Allergy [facility] (20 sources) Ibuprofen; Translations: [IBUPROFEN] Drug Allergy Unknown [facility] (20 sources) Simvastatin Drug Allergy Unknown, [facility] (20 sources) zoledronic acid; Translations: [ZOLEDRONIC ACID] Drug Allergy Other: See Comments [facility] (5 sources) Allergies Reconciled Propensity to adverse reactions Unknown [facility] Other (20 sources) Toradol *ANALGESICS - ANTI-INFLAMMATORY* Propensity to adverse reactions Unknown [employer] [facility] Other (20 sources) Cholesterol Drug allergy Unknown [employer] [facility] Other (20 sources) ANTI INFLAMMATORY Propensity to adverse reactions Unknown [facility] [facility] Other (5 sources) patient allergy list reviewed by nurse or physicia Propensity to adverse reactions Comment:Done [employer] [facility] Other (1 source) DULoxetine Drug Allergy 024 Diarrhea [facility] (10 sources) HMG-CoA reductase inhibitor Propensity to adverse reactions to drug 023 Unknown [facility] (9 sources) Non-steroidal anti-inflammatory agent Propensity to adverse reactions to drug Other: See Comments [facility] (1 source) PARoxetine Drug Allergy 024 Other (See Comments) [facility] (14 sources) Mannitol Drug Allergy Comment:Bone pain [facility] (14 sources) Sulfamethoxazole Drug Allergy [facility] (14 sources) Trimethoprim Drug Allergy [facility] (14 sources) water for injection,sterile Allergy to substance Comment:Bone pain [facility] (14 sources) Toradol *ANALGESICS - ANTI-INF Allergy to substance [facility] Comment on above: Free Text Allergy: T oradol *ANALGESICS - ANTI-INFLAMMATORY*; Onset Date: 06/29/2014 (12 sources) Ibadronate Drug Allergy 024 bone pain [facility] (1 source) Sulfamethoxazole / Trimethoprim; Translations: [SULFAMETHOXAZOLE-TRI METHOPRIM] Drug Allergy 023 [facility] Other [facility] Medications Current Medications Medication Drug Class(es) Dates Sig (Normalized) Sig (Original) [id number] 200 actuat albuterol 0.09 mg/actuat metered dose inhaler (20 sources) beta2-Adrenergic Agonist Start: 12-25-2023 take 1 puff(s) by inhalation every four to six hours as needed Albuterol Sulfate 90 mcg/actuation HFA aerosol inhaler Active 2 PUFF INHALATION EVERY 4-6 HOURS as needed for bronchospasm 6.7 December 25, 2023 12:00am Complies with drug therapy Start: 12-25-2023 take 1 puff(s) by in halation every four to six hours Albuterol Sulfate Active 2 PUFF INHALATION EVERY 4-6 HOURS 6.7 December 24, 2023 11:00pm Start: 12-25-2023 take 1 puff(s) by in halation every four to six hours Albuterol Sulfate Active 2 PUFF INHALATION EVERY 4-6 HOURS 6.7 December 25, 2023 12:00am Start: 08-11-2023 take 3 mL by inhalat ion every six hours as needed Albuterol Sulfate 2.5 mg /3 mL (0.083 %) solution for nebulization Active 3 ML INHALATION Every 6 hours August 11, 2023 12:00am [employer] mL as needed Inhalation every 6 hrs; Note: Source Status: Taking; Refills: 2; Qty: 360 ml; Provider: Kathy De Jesus Complies with drug therapy Start: 12-29-2022 albuterol (PRO VENTIL) 2.5 mg /3 mL (0.083 %) nebulizer solution Every 6 hours 12/29/2022 Active Start: 12-29-2022 albuterol (PRO VENTIL) (2.5 MG/3ML) 0.083% nebulizer solution Take 3 mLs by nebulization 0 12/29/2022 Active Start: 04-19-2019 End: 07-02-2019 Albuterol Sulfate (Ventolin Hfa) 90 mcg/actuation HFA aerosol inhaler Discontinued 2 INH INHALATION every 6 to 8 hours as needed for shortness of breath or wheezing April 19, 2019 1:00am July 02, 2019 8:26am Start: 04-18-2019 End: 07-02-2019 take 1 puff(s) by inhalation four times daily as needed for wheezing Albuterol Sulfate 90 mcg/actuation HFA aerosol inhaler Discontinued 1 PUFF INHALATION Four times daily as needed for Shortness Of Breath Or Wheezing April 18, 2019 1:00am July 02, 2019 8:26am Albuterol Sulfat e (2.5 MG/3ML) 0.083% 3 mL as needed Inhalation every 6 hrs for 30 days Active take 1 puff(s) by in halation every four hours as needed Ventolin HFA 108 (90 Base) MCG/ACT 1 puff as needed Inhalation every 4 hrs Active ProAir HFA 108 ( 90 Base) MCG/ACT Inhalation for 16 Not-Taking Albuterol Sulfate 90 mcg/actuation HFA aerosol inhaler (3 sources) Start: 12-25-2023 take 1 puff(s) by inhalation every four to six hours as needed Albuterol Sulfate 90 mcg/actuation HFA aerosol inhaler Active 2 PUFF INHALATION EVERY 4-6 HOURS as needed for bronchospasm 6.7 December 25, 2023 12:00am Start: 12-25-2023 take 1 puff(s) by in halation every four to six hours as needed Albuterol Sulfate 90 mcg/actuation HFA aerosol inhaler Active 2 PUFF INHALATION EVERY 4-6 HOURS as needed for bronchospasm 6.7 December 24, 2023 11:00pm baclofen 5 mg oral tablet (20 sources) gamma-Aminobutyric Acid-ergic Agonist Start: 09-05-2024 take 1 tablet by mouth once daily at bedtime Baclofen 5 mg tablet Active 0 .ROUTE .COMPLEX September 05, 2024 3:02pm TAKE 1 TABLET BY MOUTH ONCE DAILY AT BEDTIME Complies with drug therapy Start: 07-04-2024 End: 09-05-2024 take 1 tablet by mouth once daily at bedtime Baclofen 5 mg tablet Discontinued 5 MG PO Daily at bedtime August 01, 2024 8:30am September 05, 2024 3:02pm Start: 12-25-2023 End: 07-04-2024 take 1 tablet by mouth once daily Baclofen 20 mg tablet Discontinued 20 MG PO Daily December 25, 2023 12:00am July 04, 2024 3:25pm Start: 11-22-2023 take 1 tablet by arlene th every six hours as needed baclofen 20 mg tablet Take 20 mg by mouth every 6 hours as needed. 11/22/2023 Active Start: 08-11-2023 End: 09-24-2023 take 10 mg by mouth every six hours as needed Baclofen 20 mg tablet Discontinued 10 MG PO Every 6 hours as needed August 11, 2023 12:00am September 24, 2023 1:23pm Start: 08-11-2023 End: 09-24-2023 take 10 mg by mouth every six hours Baclofen Discontinued 10 MG PO Every 6 hours August 10, 2023 11:00pm September 24, 2023 12:23pm Start: 01-25-2023 take 1 tablet by arlene th every six hours for pain Baclofen 20 MG 1 tablet Orally every 6 hours if needed for pain for 30 days Jan, Active Start: 04-18-2019 End: 01-19-2022 take 1 tablet by mouth four times daily as needed for muscle spasms Baclofen 10 mg tablet Discontinued 10 MG PO Four times daily as needed for Muscle Spasm 20 June 26, 2019 10:50am July 02, [...] MG PO Daily July 01, 2019 12:00am Complies with drug therapy take 1 tablet by arlene th every twenty-four hours Oyster Shell Calcium 500 MG 1 tablet Orally Once a day Not-Taking cholecalciferol 0.025 mg oral tablet (20 sources) Vitamin D Start: 07-01-2019 cholecalcifero l (VITAMIN D3) 1,000 unit tab tablet 2,000 Units. 07/01/2019 Active Start: 07-01-2019 take 1 tablet by arlene th once daily Cholecalciferol (Vitamin D3) 25 mcg (1,000 unit) Tablet Active 2000 UNIT PO Daily July 01, 2019 12:00am Complies with drug therapy Start: 04-19-2019 End: 07-02-2019 take 1 tablet by mouth once daily Cholecalciferol (Vitamin D3) (Vitamin D3) 2,000 unit tablet Discontinued 2000 UNIT PO Daily April 19, 2019 1:00am July 02, 2019 8:26am docusate sodium 100 mg oral capsule (20 sources) Start: 07-01-2019 take 1 capsule by mouth twice daily as needed for constipation Docusate Sodium (Dok) 100 mg Capsule Active 100 MG PO Twice daily as needed for Constipation July 01, 2019 12:00am Complies with drug therapy escitalopram 10 mg oral tablet (20 sources) Serotonin Reuptake Inhibitor Start: 12-14-2023 End: 06-02-2024 take 1 tablet by mouth once daily Escitalopram Oxalate 10 mg tablet Active 0 .ROUTE .COMPLEX June 02, 2024 8:20am Take 1 tablet by mouth once daily Complies with drug therapy Start: 11-26-2023 End: 12-14-2023 take 2 tablets by mouth once Escitalopram Oxalate 10 m g tablet Discontinued 20 MG PO Once November 26, 2023 9:21am December 14, 2023 8:35am Start: 11-26-2023 End: 12-14-2023 take 20 mg by mouth once Escitalopram Oxalate Discont inued 20 MG PO Once November 26, 2023 8:21am December 14, 2023 7:35am Start: 10-10-2023 End: 11-26-2023 take 1 tablet by mouth once daily Escitalopram Oxalate 10 mg tablet Discontinued 0 .ROUTE .COMPLEX November 23, 2023 [...] Apr, Active Start: 07-01-2019 End: 06-22-2023 take 1 tablet by mouth at bedtime Mirtazapine 30 mg Tablet Discontinued 30 MG PO Bedtime July 01, 2019 12:00am June 22, 2023 1:12pm Start: 04-18-2019 End: 07-02-2019 take 2 tablets by mouth at bedtime Mirtazapine 15 mg tablet Discontinued 30 MG PO Bedtime April 18, 2019 1:00am July 02, 2019 8:26am Start: 04-18-2019 End: 07-02-2019 take 30 mg by mouth at bedtime Mirtazapine Discontinue d 30 MG PO Bedtime April 18, 2019 12:00am July 02, 2019 7:26am take 1 tablet by arlene th every twenty-four hours Mirtazapine 15 MG 1 tablet at bedtime Orally Once a day Not-Taking Remeron Active Multivitamin preparation (15 sources) Start: 01-19-2022 take 1 tablet by mouth once daily Multivitamin Active 1 TAB PO Daily January 19, 2022 1:00am Start: 01-19-2022 take 1 tablet by arlene th once daily Multivitamin Active 1 TAB PO Daily January 19, 2022 12:00am Multivitamin Tablet (5 sources) Start: 01-19-2022 take 1 tablet by mouth once daily Multivitamin Tablet Active 1 TAB PO Daily January 19, 2022 1:00am Complies with drug therapy Start: 01-19-2022 take 1 tablet by arlene th once daily Multivitamin Tablet Active 1 TAB PO Daily January 19, 2022 1:00am Start: 01-19-2022 take 1 tablet by arlene th once daily Multivitamin Tablet Active 1 TAB PO Daily January 19, 2022 12:00am naloxegol 12.5 mg oral tablet (20 sources) Opioid Antagonist Start: 10-01-2024 take 1 tablet by mouth once daily in the morning Naloxegol (Movantik) 12.5 mg tablet Active 12.5 MG PO Every morning October 01, 2024 12:00am must be taken on empty stomach; no food 1 hr after or 2-3 hrs before dose Complies with drug therapy Start: 12-09-2021 take 1 tablet by arlene th every twenty-four hours Movantik 12.5 MG 1 tablet in the morning Orally Once a day for 30 day(s) Nov, Active Movantik Active omeprazole 40 mg delayed release oral capsule (20 sources) Proton Pump Inhibitor Start: 10-01-2024 take 1 capsule by mouth twice daily Omeprazole 40 mg capsule,delayed release(DR/EC) Active 40 MG PO Twice daily 60 October 01, 2024 12:00am Complies with drug therapy Start: 11-26-2023 End: 10-01-2024 take 1 capsule by mouth once daily Omeprazole 40 mg capsule,delayed release(DR/EC) Discontinued 40 MG PO Daily 90 November 26, 2023 12:00am October 01, 2024 1:37pm Start: 04-18-2019 End: 07-05-2021 take 1 capsule by mouth once daily before breakfast Omeprazole 20 mg Capsule,Delayed Release(Dr/Ec) Discontinued 20 MG PO Daily before breakfast [...] (20 sources) Serotonin Reuptake Inhibitor Start: 12-25-2023 End: 06-02-2024 take 2 tablets by mouth once daily at bedtime Trazodone 100 mg tablet Active 200 MG PO Daily at bedtime June 02, 2024 12:35pm Complies with drug therapy Start: 12-25-2023 take 200 mg by mouth once daily at bedtime Trazodone Active 200 MG PO Daily at bedtime December 24, 2023 11:00pm Start: 11-26-2023 End: 12-25-2023 Trazodone 100 mg tablet Disc ontinued 150 MG PO Daily at bedtime November 26, 2023 9:22am December 25, 2023 1:32pm Start: 11-26-2023 End: 12-25-2023 take 150 mg by mouth once daily at bedtime Trazodone Discontinued 150 MG PO Daily at bedtime November 26, 2023 8:22am December 25, 2023 12:32pm Start: 07-26-2023 End: 11-26-2023 take 1 tablet by mouth once daily at bedtime Trazodone 100 mg tablet Discontinued 100 MG PO Daily at bedtime July 26, 2023 12:00am November 26, 2023 9:22am Start: 06-20-2023 End: 07-26-2023 take 1 tablet by mouth at bedtime Trazodone Discontinued 0 .ROUTE .COMPLEX 90 June 20, 2023 11:47am July 26, 2023 2:04pm take 1 tablet by mouth at bedtime if needed Start: 05-28-2023 End: 07-26-2023 take 1 tablet by mouth at bedtime Trazodone 50 mg tablet Discontinued 0 .ROUTE .COMPLEX June 20, 2023 12:47pm July 26, 2023 3:04pm take 1 tablet by mouth at bedtime if needed Start: 05-28-2023 End: 06-20-2023 take 1 tablet by mouth at bedtime Trazodone Discontinued 0 .ROUTE .COMPLEX May 28, 2023 8:59am June 20, 2023 11:47am take 1 tablet by mouth at bedtime if needed Start: 05-28-2023 End: 06-20-2023 take 1 tablet by mouth at bedtime Trazodone Discontinued 0 .ROUTE .COMPLEX May 28, 2023 9:59am June 20, 2023 12:47pm take 1 tablet by mouth at bedtime if needed Start: 08-03-2022 End: 05-28-2023 take 1 tablet by mouth once daily at bedtime as needed Trazodone 50 mg tablet Discontinued 50 MG PO Daily at bedtime as needed May 28, 2023 12:00am May 28, 2023 10:00am traZODone (DESYR EL) 150 mg tablet Take 200 mg by mouth daily at bedtime. Active traZODone HCl No t-Taking Trulance 3 MG (18 sources) Start: 01-02-2022 take 1 tablet by mouth once da lauren Completed/Discontinued Medications Medication Drug Class(es) Dates Sig (Normalized) Sig (Original) acetaminophen 500 mg oral tablet (20 sources) Start: 07-01-2019 End: 07-05-2021 take 1 tablet by mouth every four hours Acetaminophen 500 mg Tablet Discontinued 500 MG PO Q4H 100 July 01, 2019 12:00am July 05, 2021 1:43pm acetaminophen 325 mg / HYDROcodone bitartrate 5 mg oral tablet (20 sources) Opioid Agonist Start: 12-25-2023 End: 09-08-2024 take 1 tablet by mouth every eight hours Hydrocodone-Acetami nophen 5-325 mg tablet Discontinued 1 TAB PO Every 8 hours March 28, 2024 April 30, 2024 9:35am Start: 11-23-2023 HYDROcodone-ac etaminophen (NORCO) 5-325 mg per tablet .COMPLEX 11/23/2023 Active Start: 10-26-2023 End: 12-25-2023 take 1 tablet by mouth every eight hours as needed for pain Hydrocodone-Acetaminophen 5-325 mg table t Discontinued 0 .ROUTE .COMPLEX 90 November 23, 2023 December 25, 2023 1:51pm TAKE 1 TABLET BY MOUTH EVERY 8 HOURS NEEDED FOR PAIN FOR 30 DAYS p/u 11/22, start 11/24 Start: 07-20-2023 End: 10-26-2023 take 1 tablet by mouth every eight hours as needed for pain Hydrocodone-Acetaminophen 5-325 mg table t Discontinued 1 TAB PO Every 8 hours as needed for pain 90 September 24, 2023 October 24, 2023 10:33am Start: 06-22-2023 End: 07-17-2023 take 1 tablet by mouth every eight hours as needed for pain Hydrocodone-Acetaminophen 5-325 mg table t Discontinued 1 TAB PO Every 8 hours as needed for pain 90 June 22, 2023 July 17, 2023 9:50am Start: 05-10-2023 End: 06-22-2023 take 1 tablet by mouth every six hours as needed for pain Hydrocodone-Acetaminophen 5-325 mg table t Discontinued 1 TAB PO Every 6 hours as needed for pain 06 10June 19, 2023 June 22, 2023 [...] every 6 hrs for 30 days p/u 6/, start 08/12Sep, Active Start: 08-10-2022 take 1 tablet by arlene th every six hours HYDROcodone-Acetaminophen 5-325 MG 1 tab let as needed Orally every 6 hrs for 30 days p/u 6/, start 08/12Aug, Active Start: 07-12-2022 HYDROcodone-Ac etaminophen [...] 04/14Apr, Active Start: 01-19-2022 End: 05-10-2023 Hydrocodone-Acetaminophen 5- 325 mg tablet Discontinued 1 TAB PO As Directed as needed for Pain January 19, 2022 1:00am May 10, 2023 9:38am Start: 06-18-2019 End: 07-02-2019 take 1 tablet by mouth every six hours as needed for pain Hydrocodone-Acetaminophen 5-325 mg table t Discontinued 1 TAB PO Q6H as needed for Pain 29 07June 26, 2019 10:50am July 02, 2019 8:26am Start: 05-01-2019 End: 06-18-2019 take 5-325 mg by mouth four times daily Hydrocodone-Acetaminophen 5-325 mg table t Discontinued 5 - 325 MG PO Four times daily 0 May 01, 2019 June 18, 2019 5:31pm Start: 04-18-2019 End: 04-19-2019 take 5-325 mg by mouth four times daily Hydrocodone-Acetaminophen 5-325 mg table t Discontinued 5 - 325 MG PO Four times daily April 18, 2019 1:00am April 19, 2019 9:08am HYDROcodone-Acet aminophen Active ALPRAZolam 0.5 mg oral tablet (20 sources) Benzodiazepine Start: 08-14-2022 End: 06-24-2023 take 1 tablet by mouth three times daily as needed for anxiety Alprazolam 0.5 mg tablet Discontinued 0.5 MG PO Three times daily as needed for anxiety 90 May 28, 2023 9:58am June 24, 2023 9:41pm Start: 06-18-2019 End: 05-10-2023 take 1 tablet by mouth every six hours as needed for anxiety Alprazolam 0.5 mg tablet Discontinued 0.5 MG PO Q6H as needed for Anxiety 0 June 26, 2019 10:50am July 02, 2019 8:26am Start: 04-18-2019 End: 06-18-2019 take 1 tablet by mouth once daily Alprazolam 0.5 mg tablet Discontinued 0.5 MG PO Daily 10 10 April 19, 2019 9:05am June 18, 2019 5:28pm take 1 tablet by [facility] four times daily Xanax 0.5 MG 1 tablet Orally 4 times daily Active amoxicillin 500 mg / clavulanate 125 mg oral tablet (5 sources) Penicillin-class Antibacterial Start: 03-28-2024 End: 06-23-2024 take 1 tablet by mouth twice daily Amoxicillin-Pot Clavulanate 500-125 mg tablet Discontinued 1 TAB PO Twice daily March 28, 2024 1:00am June 23, 2024 1:11pm amylase [id number] unt / lipase [id number] unt / protease [id number] unt delayed release oral capsule (20 sources) Start: 07-05-2021 End: 07-06-2021 take [id number] capsules by mouth once daily Lvnpvk-Uriugoyc-Isbf ase (Creon) 36,000-114,000- 180,000 unit capsule,delayed release(DR/EC) Discontinued 1 CAP PO Daily July 05, 2021 12:00am July 06, 2021 7:56am Start: 06-13-2021 take 1 capsule by mo [facility] three times daily at mealtime Creon [id number] UNIT 1 CAPSULE Orally THREE TIMES A DAY WITH MEALS for 30 days Jun, Active azithromycin 250 mg oral tablet (20 sources) Macrolide Antimicrobial Start: 08-11-2023 End: 09-24-2023 Azithromycin 250 mg tablet Discontinued 0 PO .COMPLEX August 11, 2023 12:00am September 24, 2023 1:21pm For 250 mg dose pack: take 500 mg today (day 1), then 250 mg for 4 days (days 2-5) PO Start: 08-11-2023 End: 09-24-2023 Azithromycin Discontinued 0 PO .COMPLEX 6 August 10, 2023 11:00pm September 24, 2023 12:21pm For 250 mg dose pack: take 500 mg today (day 1), then 250 mg for 4 days (days 2-5) PO Start: 08-11-2023 End: 09-24-2023 Azithromycin Discontinued 0 PO .COMPLEX 6 August 11, 2023 12:00am September 24, 2023 1:21pm For 250 mg dose pack: take 500 mg today (day 1), then 250 mg for 4 days (days 2-5) PO Start: 08-11-2023 Azithromycin A ctive 0 PO .COMPLEX 6 August 11, 2023 12:00am For 250 mg [...] a day for 5 day(s) Apr, Active calcium chloride 0.0014 meq/ml / potassium chloride 0.004 meq/ml / sodium chloride 0.103 meq/ml / sodium lactate 0.028 meq/ml injectable solution (1 source) Start: 03-21-2024 End: 03-22-2024 take 5-30 mL intravenously every hour 5-30 mL/hr, INTRAVENOUS, CONTINUOUS, Starting on Sun03/21/24 at 1130, Until 03/22/24 at 0425, Recovery or Phase I (only) cephalexin 500 mg oral capsule (7 sources) Cephalosporin Antibacterial Start: 01-16-2024 End: 03-28-2024 take 1 capsule by mouth twice daily Cephalexin 500 mg capsule Discontinued 500 MG PO Twice daily 22 09January 16, 2024 1:00am March 28, 2024 2:26pm ciprofloxacin 250 mg oral tablet (20 sources) Quinolone Antimicrobial Start: 06-22-2023 End: 07-26-2023 take 1 tablet by mouth twice daily Ciprofloxacin Hcl 250 mg tablet Discontinued 250 MG PO Twice daily June [...] Platelet Inhibitor Start: 2019 End: 2021 take 1 tablet by mouth once daily Clopidogrel 75 mg Tablet Discontinued 75 MG PO Daily July 01, [...] hours 0 04/14/2023 Active Start: 12-07-2020 End: 03-28-2024 take 1 tablet by mouth four times daily as needed Dicyclomine 20 mg tablet Discontinued 20 MG PO Four times daily as needed August 11, 2023 11:09am March 28, 2024 2:33pm Start: 12-07-2020 End: 06-22-2023 take 1 tablet by mouth three times daily Dicyclomine 20 mg tablet Discontinued 20 MG PO Three times daily July 05, 2021 12:00am June 22, 2023 1:11pm doxycycline hyclate 100 mg oral tablet (20 sources) Tetracycline-class Drug Start: 04-19-2019 End: 07-02-2019 take 1 tablet by mouth twice daily Doxycycline Hyclate 100 mg tablet Discontinued 100 MG PO Twice daily 10 [...] puff(s) by inhalation twice daily Fluticasone Propion-Salmeterol 113-14 mcg/actuation Aerosol Powdr Breath Activated Active 1 PUFF INHALATION Twice daily 60 July 01, 2019 12:00am Complies with drug therapy take 1 puff(s) by in halation in [...] tablet (20 sources) Bisphosphonate Start: 05-28-2023 End: 08-11-2024 take 1 tablet by mouth every month Ibandronate 150 mg tablet Discontinued 0 .ROUTE .COMPLEX 3 February 23, 2024 7:58am August 11, 2024 4:20pm take 1 tablet by mouth EACH MONTH 60 MINUTES BEFORE THE FIRST FOOD,BEVERAGE OR MEDICINE OF THE DAY WITH PLAIN WATER Start: 05-02-2023 End: 05-28-2023 take 1 tablet by mouth once daily Ibandronate 150 mg tablet Discontinued 150 MG PO May 28, 2023 [...] sources) Guanylate Cyclase-C Agonist Start: 01-08-2023 End: 06-23-2024 take 1 capsule by mouth once daily Linaclotide (Linzess) 290 mcg capsule Discontinued 290 MCG PO Daily November 26, 2023 9:34am June 23, 2024 1:13pm Start: 01-08-2023 take 1 capsule by [facility] at bedtime LINZESS 290 MCG CAPS capsule Take 1 capsule by mouth in the morning and at bedtime 0 01/08/2023 Active take 1 capsule by [facility] every twelve hours Linzess 290 MCG 1 capsule twice a day Active Linzess 290 MCG 1 capsule at least 30 minutes before the first meal of the day on an empty stomach Orally twice daily for 30 days Active loperamide hydrochloride 2 mg oral capsule (20 sources) Opioid Agonist Start: 07-01-2019 End: 07-05-2021 take 1 capsule by mouth twice daily Loperamide 2 mg Capsule Discontinued 2 MG PO Twice daily July 01, 2019 12:00am July 05, 2021 1:44pm Magnesium (1 source) take 1 capsule by mouth once daily Magnesium 500 MG 1 capsule with a meal Orally daily Not-Taking 24 hr mesalamine 375 mg extended release oral capsule (20 sources) Aminosalicylate Start: 01-20-2022 End: 06-22-2023 take 1 capsule by mouth once daily in the morning Mesalamine 0.375 gram capsule,extended release 24hr Discontinued 1.5 GM PO Every morning January 20, 2022 1:00am June 22, 2023 1:12pm Start: 01-20-2022 End: 06-22-2023 take 1 capsule by mouth once daily in the morning Mesalamine 0.375 gram capsule,extended release 24hr Discontinued 1.5 GM PO Every morning January 20, 2022 1:00am June 22, 2023 1:12pm Start: 01-20-2022 End: 06-22-2023 take 1 capsule by mouth once daily in the morning Mesalamine 0.375 gram capsule,extended release 24hr Discontinued 1.5 GM PO Every morning January 20, 2022 12:00am June 22, 2023 12:12pm Start: 01-20-2022 End: 06-22-2023 take 1.5 g by mouth once daily in the morning Mesalamine Discontinued 1.5 GM PO Every morning January 20, 2022 12:00am June 22, 2023 12:12pm Start: 01-20-2022 End: 06-22-2023 take 1.5 g [...] Every morning January 20, 2022 12:00am Start: 06-26-2019 End: 07-05-2021 take 4 tablets by mouth once daily in the morning Mesalamine (Lialda) 1.2 gram Tablet,Delayed Release (Dr/Ec) Discontinued 4.8 GM PO Every morning July 01, 2019 12:00am July 05, 2021 1:44pm take 4 tablets by mo uth every twenty-four hours Lialda 1.2 GM 4 TABLETS Orally Once a day Active take 2 tablets by mo uth every twenty-four hours Lialda 1.2 GM 2 tablets Orally Once a day Active Mesalamine (Lialda) 1.2 gram tablet,delayed release (DR/EC) (18 sources) Start: 06-26-2019 End: 07-02-2019 take 4 [...] Mesalamine (Lialda) 1.2 gram Tablet,Delayed Release (Dr/Ec) (18 sources) Start: 06-26-2019 End: 06-26-2019 take 4 [...] 25, 2019 11:00pm June 26, 2019 1:54pm methylPREDNISolone 4 mg oral tablet (5 sources) Corticosteroid Start: 03-28-2024 End: 06-23-2024 Methylprednisolone 4 mg tablets,dose pack Discontinued 0 PO per package directions March 28, 2024 1:00am June 23, 2024 1:13pm PO PER PKG DIR for 6 days metroNIDAZOLE 500 mg oral tablet (20 sources) Nitroimidazole Antimicrobial Start: 07-01-2019 End: 07-05-2021 take 1 tablet by mouth twice daily Metronidazole 500 mg Tablet Discontinued 500 MG PO Twice daily 6 3 July 01, 2019 12:00am July 05, 2021 1:44pm mupirocin 0.02 mg/mg topical ointment (1 source) RNA Synthetase Inhibitor Antibacterial Mupirocin 2 % apply to affected area twice a day External for 10 Not-Taking Omeprazole 20 mg capsule,delayed release(DR/EC) (3 sources) Start: 04-18-2019 End: 07-02-2019 take 1 capsule by mouth once daily Omeprazole 20 mg capsule,delayed release(DR/EC) Discontinued 20 MG PO Daily April 18, 2019 1:00am July 02, 2019 8:26am Start: 04-18-2019 End: 07-02-2019 take 1 capsule by mouth once daily Omeprazole 20 mg capsule,delayed release(DR/EC) Discontinued 20 MG PO Daily April 18, 2019 12:00am July 02, 2019 7:26am oxyCODONE hydrochloride 5 mg oral tablet (20 sources) Opioid Agonist Start: 07-01-2019 End: 01-19-2022 take 1 tablet by mouth every four hours as needed for pain Oxycodone 5 mg Tablet Discontinued 5 MG PO Every 4 hours as needed for Pain Scale 6 - 10 20 7 July 01, 2019 January 19, 2022 2:16pm pantoprazole 40 mg delayed release oral tablet (20 sources) Proton Pump Inhibitor Start: 06-13-2021 End: 11-26-2023 take 1 tablet by mouth once daily Pantoprazole 40 mg tablet,delayed release (DR/EC) Discontinued 40 MG PO Daily 30 May 02, 2023 1:00am November 26, 2023 9:33am Take 1 tablet orally once a day Pantoprazole Sod ium Active polysaccharide iron complex 150 mg oral capsule (20 sources) Start: 07-05-2021 End: 01-19-2022 Polysaccharide Iron [...] 2 tablets by mouth once daily Prednisone 20 mg tablet Discontinued 20 MG PO .COMPLEX August 11, 2023 12:00am September 24, 2023 1:23pm Take 2 tabs po daily x 5 days Start: 08-25-2022 predniSONE 20 MG take 2 tabs po daily x 5 days Orally Once a day for 5 Aug, Active Start: 08-03-2022 take 2 tablets by mo [facility] every twenty-four hours predniSONE 20 MG 2 [...] 1 tablet by mouth once daily Prednisone 10 mg tablet Discontinued 10 MG PO As Directed April 19, 2019 1:00am July 02, 2019 8:26am Take 1 tablet twice a day for 3 days then 1 tablet daily predniSONE Not-T aking/PRN predniSONE Not-T aking pregabalin 150 mg oral capsule (20 sources) Start: 10-04-2022 End: 09-05-2024 take 1 capsule by mouth twice daily Pregabalin (Lyrica) 150 mg capsule Discontinued 150 MG PO Twice daily June 22, 2023 12:00am August 22, 2023 11:55am Start: 04-28-2022 take 1 capsule by [facility] every twelve hours Lyrica 75 MG 1 capsule Orally Twice a day Apr, Active Pregabalin Activ e Lyrica Active prochlorperazine 5 mg/ml injectable solution (1 source) Phenothiazine Start: 03-21-2024 End: 03-22-2024 take 10 mg intravenously every six hours as needed 10 mg, INTRAVENOUS, EVERY 6 HOURS NEEDED, Starting on Sun03/21/24 at 1118, Until 03/22/24 at 0425, Nausea/Vomiting - Second Line - Parenteral, EVERY 6 HOURS NEEDED Protect From Light, Recovery or Phase I (only) sucralfate 1000 mg oral tablet (6 sources) [...] abdominal pain] Onset: 05-07-2017 Resolved: 01-07-2022 Episodic Comment on above: Problem List clean-u p per request of Phys. EHR Cmte Acute bronchitis (14 sources) Acute bronchitis due to other specified organisms; Translations: [Acute bronchitis] Episodic Administrative/social admission (20 sources) Other reduced mobility; Translations: [Impaired mobility and activities of daily living] 06-26-2019 Episodic Comment on above: Problem List clean-u p per request of Phys. EHR Cmte Anxiety disorders (20 sources) Generalized anxiety disorder; Translations: [Generalized anxiety disorder] Onset: 02-28-2022 Chronic Comment on above: Problem List clean-u p per request of Phys. EHR Cmte Calculus of urinary tract (1 source) Personal history of urinary calculi; Translations: [PERSONAL HISTORY OF URINARY CALCULI] Onset: 06-08-2022 Episodic Chronic obstructive pulmonary disease and bronchiectasis (20 sources) Cachexia; Translations: [Chronic obstructive pulmonary disease, unspecified] Onset: 10-08-2017 Resolved: 11-05-2020 04-18-2019 Chronic Chronic obstructive pulmonary disease and bronchiectasis (20 sources) Bronchitis; Translations: [Bronchitis, not specified as acute or chronic] 06-27-2019 Episodic Coagulation and hemorrhagic disorders (20 sources) Petechiae of skin; Translations: [Spontaneous ecchymoses] Onset: 05-29-2022 Episodic Deficiency and other anemia (20 sources) Anemia; Translations: [Anemia, unspecified] 06-27-2019 Episodic [...] bleeding] Onset: 06-29-2014 Resolved: 01-07-2022 06-18-2019 Chronic Comment on above: Problem List clean-u p per request of Phys. EHR Cmte Esophageal disorders (20 sources) Esophageal varices; Translations: [Esophageal varices without bleeding] Onset: 06-13-2021 Resolved: 11-10-2021 Chronic Comment on above: Problem List clean-u p per request of Phys. EHR Cmte Esophageal disorders (11 sources) Esophageal disorders; Translations: [Gastro-esophageal reflux disease with esophagitis, without bleeding] Essential hypertension (1 source) Essential (primary) hypertension; Translations: [Essential (primary) hypertension] Onset: 06-13-2023 Chronic Fracture of lower limb (20 sources) Other fracture of upper end of [...] conjunctivitis; Translations: [Unspecified acute conjunctivitis, bilateral] Episodic Intestinal obstruction without hernia (7 sources) Intestinal obstruction co-occurrent and due to decreased peristalsis; Translations: [Ileus, unspecified] 01-16-2024 Episodic Menopausal disorders (11 sources) Primary ovarian [...] [Noninfective gastroenteritis and colitis, unspecified] 06-22-2019 Episodic Comment on above: Problem List clean-u p per request of Phys. EHR Cmte Nonspecific chest pain (15 sources) Chest pain, unspecified; Translations: [Chest pain] Onset: 02-23-2022 Episodic Nutritional deficiencies (20 sources) Vitamin D deficiency; Translations: [Vitamin D deficiency, unspecified] Chronic Nutritional deficiencies (20 sources) Iron deficiency; Translations: [Iron deficiency] Resolved: 01-07-2022 04-18-2019 Episodic Comment on above: Problem List clean-u p per request of Phys. EHR Cmte Osteoporosis (20 sources) Senile osteoporosis; Translations: [Age-related osteoporosis without current pathological fracture] Onset: 09-05-2021 Resolved: 09-05-2021 Chronic Comment on above: Problem List clean-u p per request of Phys. EHR Cmte Other acquired deformities (20 sources) Acquired kyphoscoliosis; Translations: [Scoliosis, unspecified] Chronic Other acquired deformities (10 sources) Acquired spondylolisthesis; Translations: [Spondylolysis, cervical region] Episodic Other acquired deformities (1 source) Spondylolysis, cervical region; Translations: [Spondylolysis, cervical region] Episodic Other aftercare (2 sources) Other nursing home (current) drug therapy; Translations: [OTH RESIDENTIAL CURRENT DRUG THERAPY] Onset: 06-08-2022 Episodic Other aftercare (10 sources) Long-term current use of drug therapy; Translations: [Other nursing home (current) drug therapy] Episodic Other and ill-defined cerebrovascular disease (15 sources) Cerebral atherosclerosis; Translations: [Cerebral atherosclerosis] Onset: 03-18-2014 Chronic Other and ill-defined cerebrovascular disease (1 source) Cerebral atherosclerosis; Translations: [Cerebral atherosclerosis] Chronic Other circulatory disease (20 sources) History of cerebrovascular accident; Translations: [Personal [...] [Fibromyalgia] 06-26-2019 Episodic Other connective tissue disease (20 sources) Recurrent falls ; Translations: [Repeated falls] 06-23-2019 Episodic Comment on above: Problem List clean-u p per request of Phys. EHR Cmte Other connective tissue disease (12 sources) Fibromyalgia; Translations: [Myalgia and myositis, unspecified] Onset: 04-25-2022 Episodic Other diseases of veins and lymphatics (20 sources) Peripheral venous insufficiency; Translations: [Venous insufficiency (chronic) (peripheral)] Onset: 11-24-2015 Episodic Other diseases of veins and lymphatics (2 sources) Venous insufficiency (chronic) (peripheral); Translations: [Venous insufficiency (chronic) (peripheral)] Episodic Other disorders of stomach and duodenum (20 sources) Disorder of function of stomach; Translations: [Disease of stomach and duodenum, unspecified] Onset: 07-18-2018 07-06-2021 Episodic Comment on above: Problem List clean-u p per request of Phys. EHR Cmte Other female genital disorders (5 sources) Polyp of vagina; Translations: [POLYP OF VAGINA] Onset: 04-17-2022 Episodic Other female genital disorders (10 sources) Polyp of vagina; Translations: [Polyp of vagina] Episodic Other fractures (20 sources) Compression fracture of thoracic spine; Translations: [Wedge compression fracture of unspecified thoracic vertebra, initial encounter for closed fracture] 04-19-2019 Episodic Comment on above: Problem List clean-u p per request of Phys. EHR Cmte Other fractures (9 sources) Collapsed vertebra, not elsewhere classified, site [...] with delayed healing] 06-15-2023 Episodic Other fractures (15 sources) Compression fracture of vertebral column; Translations: [...] [Constipation, unspecified] 11-26-2023 Episodic Other gastrointestinal disorders (7 sources) Constipation, unspecified; Translations: [Constipation, unspecified] Episodic Other gastrointestinal disorders (1 source) Other specified symptoms and signs involving the digestive system and abdomen Episodic Other gastrointestinal disorders (2 sources) Drug-induced constipation; Translations: [Drug induced constipation] 10-01-2024 Episodic Other injuries and conditions due to [...] Onset: 10-20-2021 Episodic Other non-traumatic joint disorders (14 sources) Pain in right knee; Translations: [Right [...] Nasal congestion Episodic Other upper respiratory infections (5 sources) Sinusitis; Translations: [Chronic sinusitis, unspecified] 04-02-2024 Chronic Other upper respiratory infections (12 sources) Acute [...] encounter for fracture] Onset: 06-15-2023 06-23-2019 Episodic Comment on above: Problem List clean-u p per request of Phys. EHR Cmte Regional enteritis and ulcerative colitis (20 sources) Ulcerative colitis; Translations: [Ulcerative colitis, unspecified, without complications] Onset: 04-17-2018 Resolved: 06-21-2021 Chronic Residual codes; unclassified (20 sources) Tobacco user; Translations: [Tobacco use] Onset: 03-18-2014 06-26-2019 Episodic Residual codes; unclassified (20 sources) Patient encounter status; Translations: [Encounter for prophylactic measures, unspecified] 06-26-2019 Episodic Comment on above: Problem List clean-u p per request of Phys. EHR Cmte Residual codes; unclassified (1 source) Family history [...] unspecified] Onset: 10-02-2014 Resolved: 01-07-2022 04-18-2019 Episodic Comment on above: Problem List clean-u p per request of Phys. EHR Cmte Substance-related disorders (20 sources) Nicotine dependence, cigarettes, [...] Translations: [Low back pain, unspecified] Onset: 02-11-2018 Urinary tract infections (19 sources) Urinary tract infection, site not specified; [...] sources) High risk drug monitoring status; Translations: [bed bug exterminator (current) use of opiate analgesic] Onset: 11-14-2016 Episodic Other aftercare (1 source) bed bug exterminator (current) use of opiate analgesic; Translations: [bed bug exterminator (current) use of opiate analgesic] Onset: 11-14-2016 [...] Test Name Value Interpretation Reference Range Facility Estimated glomerular filtrat ion rate (GFR) non- Americanon 08-21-2024 GFR/1.73 sq M.predicted among non-blacks MDRD (S/P/Bld) [Vol rate/Area] mL/min/{1.73_m2} >=60 mL/min/1.73m 2 [facility] - Chemistry and C hemistry - challengeon 08-21-2024 Creatinine [Mass/Vol] 0.73 mg/dL 0.55-1.02 [facility] GFR/1.73 sq M.predicted MDRD (S/P/Bld) [Vol rate/Area] mL/min/{1.73_m2} >=60 mL/min/1.73m 2 [facility] CNPMariel 07-15-2024 EDWINN Telephone (KEE) AFIA GUTIERRES ([id number]) 1955 F Date Time Provider Department 07/15/24 EVERETT DUNLAP During your visit today, we recorded the following information about you: Angela Monson RN 07/15/2024 4:[address] Dunlap, please review and advise. Than you, Angela Monson RN 12/19/2023 OV: ASSESSMENT/PLAN: 1. Chronic LUQ pain - ICD9: 789.02, 338.29, ICD10: R10.12, G89.29 (primary diagnosis) The exact etiology of her chronic left lower quadrant pain is not clear. No recent EGD or colonoscopy done by Dr. Erwin. She used DrGerry Was transferred to [facility]. 2. Weight loss [...] She is scheduled 02/14/2024 at 12:30 PM, [facility]. - EGD - THERAPEUTIC, EUS, OR TUBE INTERVENTIONS 4. Family history of colon cancer in father - ICD9: V16.0, ICD10: Z80.0 5. Smoker - ICD9: 305.1, ICD10: F17.200 She smokes half pack per day for many years. Everett Dunlap MD, FACP 03/21/2024 EUS: Impression: - [...] and my recommendations to Dr. Erwin at [facility]. Pt had repeat MRCP 07/05/2024 [...] or small pseudocysts could also be considered. Everett Dunlap MD 07/15/2024 5:27 PM Signed Angela: I wanted her MRCP to be done at [facility] facility for my review. I need the images of MRCP (done at [facility]) uploaded to [facility] for my review prior to rendering any opinion. MD Iona Vigil Dawn, RN 07/16/2024 9:10 AM Signed Fannie palacio [facility], they will push images to [facility]. Will monitor. ED Merrill Dawn, RN 07/17/2024 2:[address] Dunlap, GURJIT images available in [facility] to review. ED Merrill Khaled, MD 07/21/2024 [...] dysplasia. Recommend: MRCP in 6 months at [facility] facility. Send my opinion to Dr. Erwin. MD Iona Vigil Dawn, RN 07/22/2024 9:21 AM Signed Recommendations faxed to Dr. Erwin's office. Angela Monson RN Allergies As of Date: 07/15/2024 Noted Allergy Reaction CEFDINIR 06/22/2023 14 - Other: See Comments IBUPROFEN 06/22/2023 16 - Unknown NSAIDS (NON-STEROIDAL ANTI-INFLAM*05/15/2023 14 - Other: See Comments Comments: Other Reaction(s): diarrhea, itching and rash [id number] REDUCTASE INHIBIT*01/23/2023 16 - Unknown Comments: Other Reaction(s): Unknown SULFAMETHOXAZOLE-TRIME THOPRIM 01/23/2023 16 - Unknown ZOLEDRONIC ACID 06/22/2023 14 - Other: See Comments Date Reviewed: 03/21/2024 Reviewed by: Sofy Arriaga RN - Fully Assessed Prim (more content not included)... [facility] MR MRCPon 07-05-2024 MR MRCP [facility] [place] [address] MRI Report Signed Patient: Afia Gutierres MR#: [id number] : 1955 Acct:[id number] Age/Sex: 69 / F ADM Date: 07/05/24 Loc: Room: Type: [facility] Attending Dr: Horacio Erwin MD Copies to: [...] Perkins M.D. 07/05/2024 9:55 AM Dictation Location: [place] [address] Transcribed By: [facility] 07/05/2455 Dictated By: Vitaly Perkins MD 07/05/2445 Signed By: 07/05/24954 Normal [facility] Magnetic resonance imaging r eportOrdered By: Vitaly Perkins on 07-05-2024 Study report [facility] Main [place] [address] [place] [address] MRI Report Signed Patient: Afia Gutierres MR#: [id number] : 1955 Acct:[id number] Age/Sex: 69 / F ADM Date: 5 Loc: MR Room: Type: [facility] Attending Dr: Horacio Erwin MD Copies to: [...] of the pancreatic head cystic lesion currently mm in greatest dimension. Cystic neoplasm such as IPMN is favored. Sequelaeof pancreatitis or small pseudocysts could also be considered. Impression dictated by: Vitaly Perkins M.D. 07/05/2024 9:55 AM Dictation Location: [facility]29 Transcribed By: NOÉ 07/05/24954 Dictated By: Vitaly Perkins MD 07/05/2445 Signed By: 07/05/24954 [facility] Work Phone: Kin 03-31-2024 KRISTINA Telephone (GASTNO) AFIA GUTIERRES ([id number]) 1955 F Date Time Provider Department 03/31/24 EVERETT DUNLAP During your visit today, we recorded the following information about you: Angela Monson RN 03/31/2024 12:51 PM Signed ----- Message from Everett Dunlap MD sent at 03/29/2024 2:45 PM EST ----- Cytology of Fine needle aspiration of pancreatic head cyst: Neoplastic cells present. Negative for high-grade dysplasia. Last MRCP was 10/2023. Recommend MRCP in 3 months. Send the EUS report, cytology results and my recommendations to Dr. Erwin at [facility]. MD Iona Vigil Dawn, ED 03/31/2024 1:02 PM Signed Pt notified of results and recommendations and verbalized understanding. She will follow up with Dr. Erwin. Reports and recommendations faxed to Dr. Erwin's office. ED Merrill Nancy 05/07/2024 3:01 PM Signed Patient calls stating Dr. Erwin's office never received the records Dr. Dunlap sent. Can records be refaxed? Angela Monson RN 05/07/2024 3:20 PM Signed Records faxed again, confirmation received. ED Merrill Debra 06/02/2024 3:05 PM Signed Pt calling Dr. Erwin still waiting on results/ recommendation for the MRI. Pt is still waiting on having this procedure. Pt was told that results were faxed in Mar and again in April. Please f/u call pt with update. Thank you, Angela Monson, ED 06/03/2024 11:11 AM Signed Spoke with Libby at Dr. Erwin's office. They do have EUS report and recommendations. Libby with send a msg to Dr. Erwin to review. Pt notified. Angela Monson RN Allergies As of Date: 03/31/2024 Noted Allergy Reaction CEFDINIR 06/22/2023 14 - Other: See Comments IBUPROFEN 06/22/2023 16 - Unknown NSAIDS (NON-STEROIDAL ANTI-INFLAM*05/15/2023 14 - Other: See Comments Comments: Other Reaction(s): diarrhea, itching and rash WMSMDCD-EYL-EOL REDUCTASE INHIBIT*01/23/2023 16 - Unknown Comments: Other Reaction(s): Unknown SULFAMETHOXAZOLE-TRIME THOPRIM 01/23/2023 16 - Unknown ZOLEDRONIC ACID 06/22/2023 14 - Other: See Comments Date Reviewed: 03/21/2024 Reviewed by: Sofy Arriaga, ED - Fully Assessed Reason for Visit: Follow [...] 10 mg tablet one time only. - HYDROcodone-acetaminop hen (NORCO) 5-325 mg per tablet .COMPLEX - [...] Of Date: 03/31/2024 (None) Encounter Status:Closed by ANGELA MONSON on 03/31/24 [facility] ANES POSTPROC EVALon 025 ANES POSTPROC EVAL HNO ID: [id number] Author: JACI PERAZA DO Service: Anesthesiology Author Type: Anesthesiologist Type: Anesthesia Postprocedure Evaluation Filed: 03/21/2024 14:29 Note Text: POST ANESTHESIA EVALUATION NOTE : 1955 Procedure Summary Date: 03/21/24 Room / Location: [facility] Endoscopy - ENDO Anesthesia Start: 933 Anesthesia Stop: 1036 Procedure: EGD - THERAPEUTIC, EUS, OR TUBE INTERVENTIONS Diagnosis: Pancreatic cyst (For evaluation of pancreatic cystic neoplasm) Scheduled Providers: Everett Dunlap MD; Jaqueline Bianchi APRN.CRUISE COORDINATOR; Jaci Peraza DO Responsible Provider: Jaci Peraza [...] Documentation SIGNATURE: Jaci Peraza DO PATIENT NAME: Afia Gutierres DATE: March 21, 2024 TIME: 2:29 PM CSN: [id number] Normal [facility] ANES PRE-OPon 03-21-2024 ANES PRE-OP HNO ID: [id number] Author: JACI PERAZA DO Service: Critical Care Author Type: Anesthesiologist Type: Anesthesia Preprocedure Evaluation Filed: 03/21/2024 09:32 Note Text: ANESTHESIOLOGY DAY OF SURGERY NOTE : 1955 Procedure Information Date/Time: 03/21/24 1000 Scheduled providers: Everett Dunlap MD; Jaqueline Bianchi APRN.CRUISE COORDINATOR; Jaci Peraza DO Procedure: EGD - THERAPEUTIC, EUS, OR TUBE INTERVENTIONS Location: [facility] Endoscopy - ENDO There is no height or weight on file to calculate BMI. Most recent hematocrit and potassium results: No results found for this basename: HCT,HEMATOCRIT,K,POTAS SIUM Relevant Problems No relevant active problems Based [...] and consent discussed: yes. Patient / Responsible Libertarian agrees to proceed: yes Patient / Surrogate [...] (LEXAPRO) 10 mg tablet one time only. HYDROcodone-acetaminop hen (NORCO) 5-325 mg per tablet .COMPLEX hydrOXYzine [...] Surgery/Procedure. SIGNATURE: Jaci Peraza DO PATIENT NAME: Afia Gutierres DATE: March 21, 2024 TIME: 9:10 AM CSN: [id number] Normal [facility] CYTOLOGY NON-GYNon CASE REPORT Normal [facility] Comment on above: Order Comment: Speci men Type: SPECIMEN OBTAINED BY ASPIRATION Ordering Facility: [facility] Address: [address] [place] [address] Result Comment: [facility] Cytology Report Case: [id number] Authorizing Provider: Everett Dunlap MD Collected: 03/21/2024 09:58 AM Ordering Location: [facility] Received: 03/21/2024 10:35 AM Endoscopy - ENDO Pathologist: Priya Sumner MD Specimen: Pancreas, pancreatic head cyst Performed By: #### C YTONON #### [facility] CLIA [id number] [address] [place] [address] STATES OF [facility] DIAGNOSIS COMMENT Normal [facility] Comment on above: Order Comment: Speci men Type: SPECIMEN OBTAINED BY ASPIRATION Ordering Facility: [facility] Address: [address] [place] [address] Result Comment: This case was reviewed in consultation with Dr. Dorado who agrees with the diagnosis. Performed By: #### C YTONON #### [facility] CLIA [id number] [address] [place] [address] STATES OF [facility]AL DIAGNOSIS Normal [facility] Comment on above: Order Comment: Speci men Type: SPECIMEN OBTAINED BY ASPIRATION Ordering Facility: [facility] Address: [address] [place] [address] Result Comment: A. P ancreas, Pancreatic Head Cyst, Fine Needle Aspiration: Neoplastic cells present. Negative for high-grade dysplasia. Performed By: #### C YTONON #### [facility] CLIA [id number] [address] [place] [address] OF [facility] FINAL PERFORMING LAB Normal [facility] Comment on above: Order Comment: Speci men Type: SPECIMEN OBTAINED BY ASPIRATION Ordering Facility: [facility] Address: [address] [place] [address] Result Comment: Tech nical component, swahili teacher screening performed at [facility], [address] [place] [address] CLIA# [id number] Diagnostic interpretation performed at [facility], [address] [place] [address] CLIA# [id number] Personal Care Worker: Wai Pulido M.D. Performed By: #### C YTONON #### [facility] CLIA [id number] [address] [place] [address] OF [facility] GROSS DESCRIPTION A. Pancreas Normal [facility] Comment on above: Order Comment: Speci men Type: SPECIMEN OBTAINED BY ASPIRATION Ordering Facility: [facility] Address: [address] [place] [address] Result Comment: 1 cc opaque dark green fluid. ThinPrep prepared. Performed By: #### C YTONON #### [facility] CLIA [id number] STATES OF [facility] EGD Study observation Elijah painting 03-21-2024 [facility] Gastrointestinal Endoscopy Patient Name: Afia Gutierres Procedure Date: 03/21/2024 9:09 AM Date of : 1955 Admit Type: Outpatient Age: 68 Room: [place] [address] Gender: Female Note Status: Finalized Attending MD: Everett Dunlap MD, [id number] Procedure: Upper EUS Indications: For evaluation of [...] months but weight has been stable. Providers: Everett Dunlap MD, Vero Layne, ED, Alessia Spaulding RN, Olinda Cohen RN, Isabela Epps RN Patient Profile: This is a 68 year old female. Refer to note in patient chart for documentation of history and physical. Referring Physician: Everett Dunlap MD (Referring MD) Medicines: Monitored Anesthesia [...] align the needle to puncture the cyst b (more content not included)... [facility]ATION [facility] Radiology Study observation (narrative) [facility] HISTORY PHYSICALon HISTORY PHYSICAL HNO ID: [id number] Author: EVERETT DUNLAP MD Service: Gastroenterology Author Type: Physician [...] (LEXAPRO) 10 mg tablet one time only. HYDROcodone-acetaminop hen (NORCO) 5-325 mg per tablet .COMPLEX hydrOXYzine [...] Comments Other Reaction(s): diarrhea, itching and rash Wqjrwyb-Yhz-Jms Red* Unknown Other Reaction(s): Unknown Sulfamethoxazole-Tr* Unknown Zoledronic Acid Other: See Comments Objective PHYSICAL EXAM: The remainder of the physical exam is noncontributory. AIRWAY: LUNGS: CARDIAC: , Assessment/Plan ASA Class: Active Problems: * No active hospital problems. * Resolved Problems: * No resolved hospital problems. * Medication and Non-Pharmacologic VTE Prophylaxis/Anticoagul ants VTE Prophylaxis: VTE prophylaxis appropriate Provisional Diagnosis/Treatment Plan: Pancreatic cyst SIGNATURE: Everett Dunlap MD PATIENT NAME: Afia Gutierres DATE: March 21, 2024 TIME: 9:22 AM Normal [facility] NURSING PROGon 03-21-2024 NURSING PROG HNO ID: [id number] Author: SOFY ARRIAGA RN Service: Nursing Author Type: Registered Nurse Type: Nursing Progress Note Filed: 03/21/2024 11:43 Note Text: PATIENT EDUCATION TOPIC: PROCEDURE / SURGERY: Post Procedure Teaching: Symptom Management PATIENT NAME: Afia Gutierres PATIENT LOCATION: Room/bed info not found READINESS TO LEARN COGNITIVE ABILITY: Alert and oriented MOTIVATION TO LEARN: Interested FAMILY SUPPORT: sonDilma INSTRUCTION PROVIDED TO: Patient and Family member [...] None REFERRAL (RECOMMENDATION): None Electronically Signed By: Sofy Arriaga [facility] Upper EUSon 03-21-2024 Upper EUS [facility] Gastrointestinal Endoscopy Patient Name: Afia Gutierres Procedure Date: 03/21/2024 9:09 AM Date of : 1955 Admit Type: Outpatient Age: 68 Room: [place] [address] Gender: Female Note Status: Finalized Attending MD: Everett Dunlap MD, [id number] Procedure: Upper EUS Indications: For evaluation of [...] months but weight has been stable. Providers: Everett Dunlap MD, Vero Layne, ED, Alessia Spaulding, ED, Olinda Cohen RN, Isabela Epps RN Patient Profile: This is a 68 year old female. Refer to note in patient chart for documentation of history and physical. Referring Physician: Everett Dunlap MD (Referring MD) Medicines: Monitored Anesthesia [...] 3 months. Procedure Code(s): --- Professional --- 42072, Esophagogastroduodenos copy, flexible, transoral; w (more content not included)... [facility] 03-20-2024 [facility] Telephone ([employer]) AFIA GUTIERRES ([id number]) 1955 F Date Time Provider Department 03/20/24 EVERETT DUNLAP [employer] During your visit today, we recorded the following information about you: Carmen Meadows RN 03/20/2024 9:01 AM Signed Spoke with patient and confirmed procedure arrival time 9 am for egd -eus appointment. When you arrive please go to admitting/registration first, then you will be directed to the Endoscopy Dept.on the 2nd floor. If you have any questions about your appointment or your prep instructions please call [phone]. If you need to reschedule call [phone]. Allergies As of Date: 03/20/2024 Noted Allergy Reaction CEFDINIR 06/22/2023 14 - Other: See Comments IBUPROFEN 06/22/2023 16 - Unknown NSAIDS (NON-STEROIDAL ANTI-INFLAM*05/15/2023 14 - Other: See Comments Comments: Other Reaction(s): diarrhea, itching and rash PZOZUTB-KCU-RGK REDUCTASE INHIBIT*01/23/2023 16 - Unknown Comments: Other Reaction(s): Unknown SULFAMETHOXAZOLE-TRIME THOPRIM 01/23/2023 16 - Unknown ZOLEDRONIC ACID 06/22/2023 14 - Other: See Comments Date Reviewed: 12/19/2023 Reviewed by: Everett Dunlap MD - Fully Assessed Prescriptions as [...] 10 mg tablet one time only. - HYDROcodone-acetaminop hen (NORCO) 5-325 mg per tablet .COMPLEX - [...] Encounter Status:Closed by CARMEN MEADOWS on 03/20/24 [facility] 02-19-2024 [facility] Letter Text 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 Please call pt back to reschedule. Elham Reid II 02/19/2024 1:09 PM Signed Spoke with patient, rescheduled EUS to 03/21/2024 at [facility]. Elham Mendieta Adm Asst II Allergies As of Date: 02/14/2024 Noted Allergy Reaction CEFDINIR 06/22/2023 14 - Other: See Comments IBUPROFEN 06/22/2023 16 - Unknown NSAIDS (NON-STEROIDAL ANTI-INFLAM*05/15/2023 14 - Other: See Comments Comments: Other Reaction(s): diarrhea, itching and rash EIZLEUN-ODB-AXX REDUCTASE INHIBIT*01/23/2023 16 - Unknown Comments: Other Reaction(s): Unknown SULFAMETHOXAZOLE-TRIME THOPRIM 01/23/2023 16 - Unknown ZOLEDRONIC ACID 06/22/2023 14 - Other: See Comments Date Reviewed: 12/19/2023 Reviewed by: Everett Dunlap MD - Fully Assessed Prescriptions as [...] 10 mg tablet one time only. - HYDROcodone-acetaminop hen (NORCO) 5-325 mg per tablet .COMPLEX - [...] Status:Closed by ELHAM REID II on 02/19/[address] [facility] AFIA GUTIERRES ([id number]) 1955 F Date Time Provider Department 02/13/24 EVERETT DUNLAP During your visit today, we [...] appointment or your prep instructions please call [phone]. If you need to reschedule call [phone]. Allergies As of Date: 02/13/2024 Noted Allergy Reaction CEFDINIR 06/22/2023 14 - Other: See Comments IBUPROFEN 06/22/2023 16 - Unknown NSAIDS (NON-STEROIDAL ANTI-INFLAM*05/15/2023 14 - Other: See Comments Comments: Other Reaction(s): diarrhea, itching and rash IURIOVO-SGS-EBY REDUCTASE INHIBIT*01/23/2023 16 - Unknown Comments: Other Reaction(s): Unknown SULFAMETHOXAZOLE-TRIME THOPRIM 01/23/2023 16 - Unknown ZOLEDRONIC ACID 06/22/2023 14 - Other: See Comments Date Reviewed: 12/19/2023 Reviewed by: Everett Dunlap MD - Fully Assessed Prescriptions as [...] 10 mg tablet one time only. - HYDROcodone-acetaminop hen (NORCO) 5-325 mg per tablet .COMPLEX - [...] Encounter Status:Closed by CARMEN MEADOWS on 02/13/24 Normal [facility] Laboratory - Chemistry and C hemistry - challengeon 01-16-2024 Bilirubin Ql (U) small [facility] Glucose (U) [Mass/Vol] Negative [facility] Ketones Ql (U) Negative [facility] pH (U) 5.5 [pH] [facility] Specific gravity (U) [Rel density] >=1.030 [facility] Urobilinogen (U) [Mass/Vol] 0.2 mg/dL [facility] Laboratory - Specimen inform ationon 01-16-2024 Appearance (U) clear [facility] Color (U) darkyellow [facility] Laboratory - Urinalysison Leukocyte esterase Test strip Ql (U) trace [facility] Nitrite Ql (U) Negative [facility] Protein Ql (U) 30mg/dl [facility] No Panel Informationon 01-15 Urine Occult Blood small [facility] Urine Cultureon 01-16-2024 Bacteria identified Cx Nom (U) <9,000 colonies/ml mixed bacterial skin contaminants 2 Days PERFORMED BY: [place] [address] PATHOLOGIST BALL ROLLING MACHINE OPERATOR SHELTON NEVAREZ M.D. Normal [facility] Comment on above: Performed By: #### C UU #### [address] Urine cultureOrdered By: Whit ferguson Asha on 01-16-2024 Bacteria identified Cx Nom (U) Urine culture [facility] Basophils Auto (Bld) [#/Vol] on 01-03-2024 Basophils (Bld) [#/Vol] 0.0 10 3/uL 0.0-0.1 [facility] Basophils (Bld) [#/Vol] Automated basophil count 0.0-0.1 [facility] Basophils/100 WBC Auto (Bld) on 01-03-2024 Basophils/100 WBC (Bld) 0.4 % 0.2-2.0 [facility] Basophils/100 WBC (Bld) Automated basophil % 0.2-2.0 [facility] Eosinophils/100 WBC Auto (Bl d)on 01-03-2024 Eosinophils/100 WBC (Bld) 1.6 % 0.9-7.0 [facility] Eosinophils/100 WBC (Bld) Automated eosinophil % 0.9-7.0 [facility] Erythrocyte distribution wid th Auto (RBC) [Ratio]on 01-03-2024 Erythrocyte distribution width (RBC) [Ratio] 11.8 % 11.0-15.0 [facility] Erythrocyte distribution width (RBC) [Ratio] Erythrocyte distribution width [Ratio] by Automated count 11.0-15.0 [facility] Estimated glomerular filtrat ion rate (GFR) non- Americanon 01-03-2024 GFR/1.73 sq M.predicted among non-blacks MDRD (S/P/Bld) [Vol rate/Area] mL/min/{1.73_m2} >=60 mL/min/1.73m 2 [facility] GFR/1.73 sq M.predicted among non-blacks MDRD (S/P/Bld) [Vol rate/Area] Estimated glomerular filtration rate (GFR) non- >=60 mL/min/1.73m 2 [facility] Fibrin D-dimer [Presence] in Platelet poor plasma by Latex agglutinationon 01-03-2024 Fibrin D-dimer LA Ql (PPP) 0.62 mg/L FEU High <=0.59 [facility] Comment on above: RESULTS CALLED TO GREYSON COOL RN @BY Shira Tan [id number] in D-Dimer concentration observed withthromboembolic events can be variable due to localization,size, and age of the thrombus. Therefore, a thromboembolicevent cannot be diagnosed with certainty on the basis of thereference range. D-Dimers may also be elevated for a varietyof disorders including advanced age, , coronarydisease, cancer, liver disease, infection, inflammation,hematoma, DIC, trauma, post-surgery, diabetes, thrombolyticor anticoagulant therapy, stress, and generalizedhospitalization. Fibrin D-dimer LA Ql (PPP) Fibrin D-dimer [Presence] in Platelet poor plasma by Latex agglutination Critically high <=0.59 [facility] Comment on above: RESULTS CALLED TO GREYSON COOL RN @BY Shira Tan [id number] in D-Dimer concentration observed withthromboembolic events can be variable due to localization,size, and age of the thrombus. Therefore, a thromboembolicevent cannot be diagnosed with certainty on the basis of thereference range. D-Dimers may also be elevated for a varietyof disorders including advanced age, , coronarydisease, cancer, liver disease, infection, inflammation,hematoma, DIC, trauma, post-surgery, diabetes, thrombolyticor anticoagulant therapy, stress, and generalizedhospitalization. Globulin Calc (S) [Mass/Vol] on 01-03-2024 Globulin (S) [Mass/Vol] 3.4 g/dL [facility] Globulin (S) [Mass/Vol] Serum globulin measurement by calculation (mass/volume) [facility] Hematocrit Auto (Bld) [Volum e fraction]on 01-03-2024 Hematocrit (Bld) [Volume fraction] 40.1 % 36.0-48.0 [facility] Hematocrit (Bld) [Volume fraction] Hematocrit [Volume Fraction] of Blood by Automated count 36.0-48.0 [facility] Hemoglobin [Mass/volume] in Bloodon 01-03-2024 Hemoglobin (Bld) [Mass/Vol] 13.0 g/dL 12.0-16.0 [facility] Hemoglobin (Bld) [Mass/Vol] Hemoglobin [Mass/volume] in Blood 12.0-16.0 [facility] Laboratory - Chemistry and C hemistry - challengeon 01-03-2024 Albumin [Mass/Vol] 3.6 g/dL 3.4-5.0 [facility] ALP [Catalytic activity/Vol] 53 U/L 46-116 [facility] ALT [Catalytic activity/Vol] 17 U/L 14-59 [facility] AST [Catalytic activity/Vol] 17 U/L 15-37 [facility] Bilirubin [Mass/Vol] 0.3 mg/dL 0.2-1.0 [facility] Calcium [Mass/Vol] 9.2 mg/dL 8.5-10.1 [facility] Chloride [Moles/Vol] 104 mmol/L 98-107 [facility] CO2 [Moles/Vol] 28.1 mmol/L 21.0-32.0 [facility] Creatinine [Mass/Vol] 0.72 mg/dL 0.55-1.02 [facility] GFR/1.73 sq M.predicted MDRD (S/P/Bld) [Vol rate/Area] mL/min/{1.73_m2} >=60 mL/min/1.73m 2 [facility] Glucose [Mass/Vol] 121 mg/dL High 74-106 [facility] Lactate [Moles/Vol] 2.4 mmol/L Critically high 0.4-2.0 [facility] Comment on above: RESULTS CALLED TO AP HART RN @BY Shira Garcia at 2234 Lipase [Catalytic activity/Vol] 36.0 U/L 16.0-77.0 [facility] Potassium [Moles/Vol] 3.1 mmol/L Low 3.5-5.1 [facility] Protein [Mass/Vol] 7.0 g/dL 6.4-8.2 [facility] Sodium [Moles/Vol] 142 mmol/L 136-145 [facility] Urea nitrogen [Mass/Vol] 14.0 mg/dL 7.0-18.0 [facility] Urea nitrogen/Creatinine [Mass ratio] 19.4 mg/mg [facility] Bilirubin Ql (U) Negative NEGATIVE [facility] Glucose (U) [Mass/Vol] Negative NEGATIVE [facility] Ketones Ql (U) Negative NEGATIVE [facility] pH (U) 6.5 [pH] 5.0-9.0 [facility] Specific gravity (U) [Rel density] 1.020 1.005-1.025 [facility] Urobilinogen Qn (U) 0.2 {Skip'U}/dL 0.2-1.0 [facility] Laboratory - Hematology and Cell countson 01-03-2024 Immature granulocytes/100 WBC (Bld) 0.2 % 0.0-0.5 [facility] Laboratory - Specimen inform ationon 01-03-2024 Appearance (U) CLEAR CLEAR [facility] Color (U) YELLOW YELLOW [facility] Laboratory - Urinalysison Leukocyte esterase Test strip Ql (U) Negative NEGATIVE [facility] Nitrite Ql (U) Negative NEGATIVE [facility] Protein Ql (U) Negative NEG/TRACE [facility] Leukocytes [#/volume] correc jer for nucleated erythrocytes in Blood by Automated counon 01-03-2024 WBC corrected for nucl RBC Auto (Bld) [#/Vol] 5.0 10 3/uL 4.0-11.0 [facility] WBC corrected for nucl RBC Auto (Bld) [#/Vol] Leukocytes [#/volume] corrected for nucleated erythrocytes in Blood by Automated coun 4.0-11.0 [facility] Lymphocytes Auto (Bld) [#/Vo l]on 01-03-2024 Lymphocytes (Bld) [#/Vol] 2.2 10 3/uL 1.2-3.8 [facility] Lymphocytes (Bld) [#/Vol] Lymphocytes [#/volume] in Blood by Automated count 1.2-3.8 [facility] Lymphocytes/100 WBC Auto (Bl d)on 01-03-2024 Lymphocytes/100 WBC (Bld) 43.3 % 20.5-60.0 [facility] Lymphocytes/100 WBC (Bld) Lymphocytes/100 leukocytes in Blood by Automated count 20.5-60.0 [facility] MCH Auto (RBC) [Entitic mass ]on 01-03-2024 MCH (RBC) [Entitic mass] 32.3 pg 26.7-34.0 [facility] MCH (RBC) [Entitic mass] MCH [Entitic mass] by Automated count 26.7-34.0 [facility] MCHC Auto (RBC) [Mass/Vol]on 01-03-2024 MCHC (RBC) [Mass/Vol] 32.4 g/dL 29.9-35.2 [facility] MCHC (RBC) [Mass/Vol] MCHC [Mass/volume] by Automated count 29.9-35.2 [facility] MCV Auto (RBC) [Entitic vol] on 01-03-2024 MCV (RBC) [Entitic vol] 99.5 fL High 81.0-99.0 [facility] MCV (RBC) [Entitic vol] MCV [Entitic volume] by Automated count High 81.0-99.0 [facility] Monocytes Auto (Bld) [#/Vol] on 01-03-2024 Monocytes (Bld) [#/Vol] 0.4 10 3/uL 0.3-0.8 [facility] Monocytes (Bld) [#/Vol] Automated blood monocyte count 0.3-0.8 [facility] Monocytes/100 WBC Auto (Bld) on 01-03-2024 Monocytes/100 WBC (Bld) 7.4 % 1.7-12.0 [facility] Monocytes/100 WBC (Bld) Automated monocyte % 1.7-12.0 [facility] Neutrophils Auto (Bld) [#/Vo l]on 01-03-2024 Neutrophils (Bld) [#/Vol] 2.4 10 3/uL 1.4-6.5 [facility] Neutrophils (Bld) [#/Vol] Neutrophils [#/volume] in Blood by Automated count 1.4-6.5 [facility] Neutrophils/100 WBC Auto (Bl d)on 01-03-2024 Neutrophils/100 WBC (Bld) 47.1 % 43.0-75.0 [facility] Neutrophils/100 WBC (Bld) Automated neutrophil % 43.0-75.0 [facility] No Panel Informationon 01-02 Eosinophils # (Auto) 0.1 10 3/uL 0.0-0.7 [facility] Immature Granulocyte # (Auto) 0.01 10 3/uL 0.00-0.03 [facility] Troponin I High Sensitivity <4.0 pg/mL Low 4.0-51.3 [facility] Comment on above: CUT-OFF POINTS HAVE BEEN ESTABLISHED BASED ON THE FOURTHIVERSAL DEFINITION OF MYOCARDIAL INFARCTION. THE UPPERREFERENCE LIMIT (URL) OF TROPONIN, DEFINED THE 99THPERCENTILE OF cTnI DISTRIBUTION IN A REFERENCE POPULATION,HAS BEEN CONFIRMED THE DECISION THRESHOLD FOR MIDIAGNOSIS.99TH PERCENTILE = 51.4 PG/MLNOTE: HIGH-SENSITIVITY TROPONIN ASSAY IS NOT INTENDED TO BEUSED IN ISOLATION BUT SHOULD BE INTERPRETED IN CONJUNCTIONWITH OTHER DIAGNOSTIC AND CLINICAL INFORMATION. Urine Microscopic Review NO [facility] Urine Occult Blood Negative NEGATIVE [facility] Platelet mean volume Auto (B ld) [Entitic vol]on 01-03-2024 Platelet mean volume (Bld) [Entitic vol] 9.5 fL 9.5-13.5 [facility] Platelet mean volume (Bld) [Entitic vol] Platelet mean volume [Entitic volume] in Blood by Automated count 9.5-13.5 [facility] Platelets Auto (Bld) [#/Vol] on 01-03-2024 Platelets (Bld) [#/Vol] 160 10 3/uL 150-450 [facility] Platelets (Bld) [#/Vol] Platelets [#/volume] in Blood by Automated count 150-450 [facility] RBC Auto (Bld) [#/Vol]on RBC (Bld) [#/Vol] 4.03 10 6/uL Low 4.20-5.40 [facility] RBC (Bld) [#/Vol] Erythrocytes [#/volume] in Blood by Automated count Low 4.20-5.40 [facility] Serum or plasma albumin/glob ulin mass ratioon 01-03-2024 Albumin/Globulin [Mass ratio] 1.1 {ratio} [facility] Albumin/Globulin [Mass ratio] Serum or plasma albumin/globulin mass ratio [facility] Serum or plasma anion gap de terminationon 01-03-2024 Anion gap [Moles/Vol] 13.0 mmol/L [facility] Anion gap [Moles/Vol] Serum or plasma an ion gap determination [facility] CNOVon 12-19-2023 CNOV Office Visit (GASTNO ) AFIA GUTIERRES ([id number]) 1955 F Date Time Provider Department 12/19/23 [...] 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 Previous work [...] Comments Other Reaction(s): diarrhea, itching and rash Hfdnjpx-Fsk-Rqq Red* Unknown Other Reaction(s): Unknown Sulfamethoxazole-Tr* Unknown [...] (LEXAPRO) 10 mg tablet one time only. HYDROcodone-acetaminop hen (NORCO) 5-325 mg per tablet .COMPLEX hydrOXYzine [...] cough, hemoptys (more content not included)... Normal [facility] HISTORY PHYSICALon HISTORY PHYSICAL HNO ID: [id number] Author: EVERETT DUNLAP MD Service: ? 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 Previous work [...] Comments Other Reaction(s): diarrhea, itching and rash Byspnkz-Jpp-Bsr Red* Unknown Other Reaction(s): Unknown Sulfamethoxazole-Tr* Unknown [...] (LEXAPRO) 10 mg tablet one time only. HYDROcodone-acetaminop hen (NORCO) 5-325 mg per tablet .COMPLEX hydrOXYzine [...] incontinence MUSCULOSKELETAL: (more content not included)... Normal [facility] Basophils Auto (Bld) [#/Vol] on 12-12-2023 Basophils (Bld) [#/Vol] 0.0 10 3/uL 0.0-0.1 [facility] Basophils/100 WBC Auto (Bld) on 12-12-2023 Basophils/100 WBC (Bld) 0.3 % 0.2-2.0 [facility] Eosinophils/100 WBC Auto (Bl d)on 12-12-2023 Eosinophils/100 WBC (Bld) 0.9 % 0.9-7.0 [facility] Erythrocyte distribution wid th Auto (RBC) [Ratio]on 12-12-2023 Erythrocyte distribution width (RBC) [Ratio] 11.8 % 11.0-15.0 [facility] Estimated glomerular filtrat ion rate (GFR) non- Americanon 12-12-2023 GFR/1.73 sq M.predicted among non-blacks MDRD (S/P/Bld) [Vol rate/Area] mL/min/{1.73_m2} >=60 mL/min/1.73m 2 [facility] Globulin Calc (S) [Mass/Vol] on 12-12-2023 Globulin (S) [Mass/Vol] 3.5 g/dL [facility] Hematocrit Auto (Bld) [Volum e fraction]on 12-12-2023 Hematocrit (Bld) [Volume fraction] 42.8 % 36.0-48.0 [facility] Hemoglobin [Mass/volume] in Bloodon 12-12-2023 Hemoglobin (Bld) [Mass/Vol] 13.9 g/dL 12.0-16.0 [facility] Laboratory - Chemistry and C hemistry - challengeon 12-12-2023 Bilirubin Ql (U) Negative NEGATIVE [facility] Glucose (U) [Mass/Vol] Negative NEGATIVE [facility] Ketones Ql (U) Negative NEGATIVE [facility] pH (U) 7.0 [pH] 5.0-9.0 [facility] Specific gravity (U) [Rel density] 1.015 1.005-1.025 [facility] Urobilinogen Qn (U) 0.2 {Skip'U}/dL 0.2-1.0 [facility] Albumin [Mass/Vol] 3.7 g/dL 3.4-5.0 [facility] [facility] ALP [Catalytic activity/Vol] 54 U/L 46-116 [facility] ALT [Catalytic activity/Vol] 18 U/L 14-59 [facility] AST [Catalytic activity/Vol] 17 U/L 15-37 [facility] Bilirubin [Mass/Vol] 0.3 mg/dL 0.2-1.0 [facility] Calcium [Mass/Vol] 9.4 mg/dL 8.5-10.1 [facility] Chloride [Moles/Vol] 99 mmol/L 98-107 [facility] CO2 [Moles/Vol] 27.4 mmol/L 21.0-32.0 [facility] Creatinine [Mass/Vol] 0.78 mg/dL 0.55-1.02 [facility] GFR/1.73 sq M.predicted MDRD (S/P/Bld) [Vol rate/Area] mL/min/{1.73_m2} >=60 mL/min/1.73m 2 [facility] Glucose [Mass/Vol] 151 mg/dL High 74-106 [facility] Potassium [Moles/Vol] 3.5 mmol/L 3.5-5.1 [facility] Protein [Mass/Vol] 7.2 g/dL 6.4-8.2 [facility] Sodium [Moles/Vol] 137 mmol/L 136-145 [facility] Urea nitrogen [Mass/Vol] 12.0 mg/dL 7.0-18.0 [facility] Urea nitrogen/Creatinine [Mass ratio] 15.4 mg/mg [facility] Laboratory - Hematology and Cell countson 12-12-2023 Immature granulocytes/100 WBC (Bld) 0.3 % 0.0-0.5 [facility] Laboratory - Microbiology an d Antimicrobial susceptibilityon 12-12-2023 SARS-CoV-2 (COVID-19) RNA JOSH+probe Ql (Unsp spec) Negative NEGATIVE [facility] Comment on above: This test has [...] inform ationon 12-12-2023 Appearance (U) CLEAR CLEAR [facility] Color (U) LT. YELLOW YELLOW [facility] Laboratory - Urinalysison Leukocyte esterase Test strip Ql (U) Negative NEGATIVE [facility] Nitrite Ql (U) Negative NEGATIVE [facility] Protein Ql (U) Negative NEG/TRACE [facility] Leukocytes [#/volume] correc jer for nucleated erythrocytes in Blood by Automated counon 12-12-2023 WBC corrected for nucl RBC Auto (Bld) [#/Vol] 5.7 10 3/uL 4.0-11.0 [facility] Lymphocytes Auto (Bld) [#/Vo l]on 12-12-2023 Lymphocytes (Bld) [#/Vol] 1.0 10 3/uL Low 1.2-3.8 [facility] Lymphocytes/100 WBC Auto (Bl d)on 12-12-2023 Lymphocytes/100 WBC (Bld) 18.0 % Low 20.5-60.0 [facility] MCH Auto (RBC) [Entitic mass ]on 12-12-2023 MCH (RBC) [Entitic mass] 32.4 pg 26.7-34.0 [facility] MCHC Auto (RBC) [Mass/Vol]on 12-12-2023 MCHC (RBC) [Mass/Vol] 32.5 g/dL 29.9-35.2 [facility] MCV Auto (RBC) [Entitic vol] on 12-12-2023 MCV (RBC) [Entitic vol] 99.8 fL High 81.0-99.0 [facility] Monocytes Auto (Bld) [#/Vol] on 12-12-2023 Monocytes (Bld) [#/Vol] 0.3 10 3/uL 0.3-0.8 [facility] Monocytes/100 WBC Auto (Bld) on 12-12-2023 Monocytes/100 WBC (Bld) 5.1 % 1.7-12.0 [facility] Neutrophils Auto (Bld) [#/Vo l]on 12-12-2023 Neutrophils (Bld) [#/Vol] 4.3 10 3/uL 1.4-6.5 [facility] Neutrophils/100 WBC Auto (Bl d)on 12-12-2023 Neutrophils/100 WBC (Bld) 75.4 % High 43.0-75.0 [facility] No Panel Informationon 12-11 Urine Microscopic Review NO [facility] Urine Occult Blood Negative NEGATIVE [facility] Eosinophils # (Auto) 0.1 10 3/uL 0.0-0.7 [facility] Immature Granulocyte # (Auto) 0.02 10 3/uL 0.00-0.03 [facility] Platelet mean volume Auto (B ld) [Entitic vol]on 12-12-2023 Platelet mean volume (Bld) [Entitic vol] 9.1 fL Low 9.5-13.5 [facility] Platelets Auto (Bld) [#/Vol] on 12-12-2023 Platelets (Bld) [#/Vol] 168 10 3/uL 150-450 [facility] RBC Auto (Bld) [#/Vol]on RBC (Bld) [#/Vol] 4.29 10 6/uL 4.20-5.40 [facility] Serum or plasma albumin/glob ulin mass ratioon 12-12-2023 Albumin/Globulin [Mass ratio] 1.1 {ratio} [facility] Serum or plasma anion gap de terminationon 12-12-2023 Anion gap [Moles/Vol] 14.1 mmol/L [facility] CNPMariel 11-30-2023 KRISTINA Telephone (GASTNO) AFIA GUTIERRES ([id number]) 1955 F Date Time Provider Department 11/30/23 EVERTET DUNLAP During your visit today, we recorded the following information about you: Angela Mnoson RN 11/30/2023 12:51 PM Signed Pt referred [...] Awaiting MRCP images to be uploaded to Psychiatric. Schedule follow-up visit in my pancreas clinic [...] Status:Closed by BETH SUMMERS on 12/04/23 Normal [facility] ISTAT XRay CREon 11-02-2023 ISTAT GFR > 60.0 Normal [facility] Comment on above: Result Comment: PERF ORMED BY: [place] [address] PATHOLOGIST BALL ROLLING MACHINE OPERATOR SHELTON ENVAREZ M.D. Performed By: #### I SCRE #### [address] MR abdomen wo/w conon 2023 MR abdomen wo/w con [facility] Main [place] [address] [place] [address] MRI Report Signed Patient: Afia Gutierres MR#: [id number] : 1955 Acct:[id number] Age/Sex: 68 / F ADM Date: 11/02/23 Loc: MR Room: Type: [facility] Attending Dr: Horacio Erwin MD Copies to: [...] Wai Denise M.D.11/02/2023 8:02 PM Dictation Location: [place] [address] Transcribed By: [facility] 11/02/232001 Dictated By: Wai Denise II, MD 11/02/231953 Signed By: 11/02/232001 [facility] No Panel InformationOrdered By: Horacio Erwin on 11-02-2023 Bedside Estimated GFR (eGFR) > 60.0 [facility] Whole blood creatinine measu rementOrdered By: Horacio Erwin on 11-02-2023 Creatinine [Mass/Vol] 0.5 mg/dL Low 0.6-1.3 [facility] Comment on above: ER/ESD physician is notified/shown all ISTAT results.Critical values may be confirmed by laboratory testing ifdeemed necessary by ER attending doctor. Result Comment: ER/E SD physician is notified/shown all ISTAT results. Critical values may be confirmed by laboratory testing if deemed necessary by ER attending doctor. Performed By: #### I SCRE #### [address] Laboratory - Chemistry and C hemistry - challengeon 06-22-2023 Bilirubin Ql (U) Negative [facility] Glucose (U) [Mass/Vol] Negative [facility] Ketones Ql (U) Negative [facility] pH (U) 5 [pH] [facility] Specific gravity (U) [Rel density] 1.025 [facility] Urobilinogen (U) [Mass/Vol] 0.2 mg/dL [facility] Laboratory - Specimen inform ationon 06-22-2023 Appearance (U) cloudy [facility] Color (U) DarkYellow [facility] Laboratory - Urinalysison Leukocyte esterase Test strip Ql (U) Negative [facility] Nitrite Ql (U) Positive [facility] Protein Ql (U) Negative [facility] No Panel Informationon 06-21 Urine Occult Blood Negative [facility] Urine culture routineOrdered By: Nettie Iqbal on 06-22-2023 Bacteria identified Cx Nom (U) Citrobacter freundii complex [facility] IR VERTEBROPLASTY CERVICOTHO RACICon 06-15-2023 IR [...] Ricardo Carbajal MD 06/18/23 Final result Normal [facility] IR VERTEBROPLASTY EACH ADDIT Alexander 06-15-2023 IR [...] Ricardo Carbajal MD 06/18/23 Final result Normal [facility] CBCon 06-13-2023 Erythrocyte distribution width (RBC) [Ratio] 13.2 % Normal 11.8-14.4 [facility] Comment on above: Performed By: #### C BC, PT, CP #### [facility] [address] [place] [address] Band Instrument Maker: Janna Monzon MD Hematocrit (Bld) [Volume fraction] 44.8 % Normal 36.3-47.1 [facility] Comment on above: Performed By: #### C DARIELA, PT, CP #### [facility] [address] [place] [address] Band Instrument Maker: Janna Monzon MD Hemoglobin (Bld) [Mass/Vol] 14.2 g/dL Normal 11.9-15.1 [facility] Comment on above: Performed By: #### C DARIELA, PT, CP #### [address] [place] [address] Band Instrument Maker: Janna Monzon MD MCH (RBC) [Entitic mass] 31.8 pg Normal 25.2-33.5 [facility] Comment on above: Performed By: #### C DARIELA PT, CP #### [address] [place], [facility] Band Instrument Maker: Janna Monzon MD MCHC (RBC) [Mass/Vol] 31.7 g/dL Normal 28.4-34.8 [facility] Comment on above: Performed By: #### C DARIELA, PT, CP #### [address] [place], [facility] Band Instrument Maker: Janna Monzon MD MCV (RBC) [Entitic vol] 100.2 fL Normal 82.6-102.9 [facility] Comment on above: Performed By: #### C DARIELA PT, CP #### [address] [place] [address] Band Instrument Maker: Janna Monzon MD NRBC Automated 0.0 per 100 WBC Normal 0.0 [facility] Comment on above: Performed By: #### C DARIELA, PT, CP #### [facility] [address] [place] [address] Band Instrument Maker: Janna Monzon MD Platelet mean volume (Bld) [Entitic vol] 9.9 fL Normal 8.1-13.5 [facility] Comment on above: Performed By: #### C BC, PT, CP #### [facility] [address] [place], [place] [address] Band Instrument Maker: Janna Monzon MD Platelets (Bld) [#/Vol] 167 10*3/uL Normal 138-453 [facility] Comment on above: Performed By: #### C BC, PT, CP #### [facility] [address] [place] [address] Band Instrument Maker: Janna Monzon MD RBC (Bld) [#/Vol] 4.47 10*6/uL Normal 3.95-5.11 [facility] Comment on above: Performed By: #### C BC, PT, CP #### [address] [place] [address] Band Instrument Maker: Janna Monzon MD WBC (Bld) [#/Vol] 4.4 10*3/uL Normal 3.5-11.3 [facility] Comment on above: Performed By: #### C BC, PT, CP #### [address] [place], [place] [id number] Band Instrument Maker: Janna Monzon MD Comp Metabolic Profon 2023 Albumin [Mass/Vol] 4.3 g/dL Normal 3.5-5.2 [facility] Comment on above: Performed By: #### C BC, PT, CP #### [facility] [address] [place], [place] [address] Band Instrument Maker: Janna Monzon MD Albumin/Glob Ratio 1.3 Normal 1.0-2.5 [facility] Comment on above: Performed By: #### C BC, PT, CP #### [facility] [address] [place], [place] [address] Band Instrument Maker: Janna Monzon MD Alkaline Phos 78 U/L Normal 35-104 [facility] Comment on above: Performed By: #### C DARIELA, PT, CP #### [facility] [address] [place], [place] [address] Band Instrument Maker: Janna Monzon MD ALT [Catalytic activity/Vol] 11 U/L Normal 5-33 [facility] Comment on above: Performed By: #### C DARIELA, PT, CP #### [facility] [address] [place], [place] [address] Band Instrument Maker: Janna Monzon MD Anion gap [Moles/Vol] 8 mmol/L Low 9-17 [facility] Comment on above: Performed By: #### C DARIELA, PT, CP #### [facility] [address] [place], [place] [address] Band Instrument Maker: Janna Monzon MD AST [Catalytic activity/Vol] 21 U/L Normal <32 [facility] Comment on above: Performed By: #### C DARIELA PT, CP #### [facility] [address] [place], [place] [address] Band Instrument Maker: Janna Monzon MD Bilirubin [Mass/Vol] 0.2 mg/dL Low 0.3-1.2 [facility] Comment on above: Performed By: #### C DARIELA, PT, CP #### [facility] [address] [place], [place] [address] Band Instrument Maker: Janna Monzon MD BUN/CRE Ratio 30 High 9-20 [facility] Comment on above: Performed By: #### C DARIELA, PT, CP #### [facility] [address] [place], [place] [address] Band Instrument Maker: Janna Monzon MD Calcium [Mass/Vol] 9.3 mg/dL Normal 8.6-10.4 [facility] Comment on above: Performed By: #### C BC, PT, CP #### [facility] [address] [place], [place] [address] Band Instrument Maker: Janna Monzon MD Chloride [Moles/Vol] 103 mmol/L Normal 98-107 [facility] Comment on above: Performed By: #### C BC, PT, CP #### [facility] [address] [place], [place] [address] Band Instrument Maker: Janna Monzon MD CO2 [Moles/Vol] 29 mmol/L Normal 20-31 [facility] Comment on above: Performed By: #### C DARIELA, PT, CP #### [facility] [address] [place], [place] [address] Band Instrument Maker: Janna Monzon MD Creatinine [Mass/Vol] 0.5 mg/dL Normal 0.5-0.9 [facility] Comment on above: Performed By: #### C DARIELA, PT, CP #### [facility] [address] [place] [address] Band Instrument Maker: Janna Monzon MD GFR/1.73 sq M.predicted among non-blacks MDRD (S/P/Bld) [Vol rate/Area] mL/min/{1.73_m2} Normal >60 [facility] Comment on above: Result Comment: These [...] renal tubular secretion. Performed By: #### C BC, PT, CP #### [facility] [address] [place] [address] Band Instrument Maker: Janna Monzon MD Glucose [Mass/Vol] 77 mg/dL Normal 70-99 [facility] Comment on above: Performed By: #### C BC, PT, CP #### [facility] [address] [place], [place] [address] Band Instrument Maker: Janna Monzon MD Potassium [Moles/Vol] 4.0 mmol/L Normal 3.7-5.3 [facility] Comment on above: Performed By: #### C BC, PT, CP #### [facility] [address] [place], [place] [address] Band Instrument Maker: Janna Monzon MD Protein [Mass/Vol] 7.7 g/dL Normal 6.4-8.3 [facility] Comment on above: Performed By: #### C BC, PT, CP #### [address] [place], [place] [address] Band Instrument Maker: Janna Monzon MD Sodium [Moles/Vol] 140 mmol/L Normal 135-144 [facility] Comment on above: Performed By: #### C BC, PT, CP #### [address] [place], [place] [address] Band Instrument Maker: Janna Monzon MD Urea nitrogen [Mass/Vol] 15 mg/dL Normal 8-23 [facility] Comment on above: Performed By: #### C BC, PT, CP #### [address] [place], [place] [address] Band Instrument Maker: Janna Monzon MD PTon 06-13-2023 INR Coag (PPP) [Relative time] 0.9 {INR} Normal [facility] Comment on above: Result Comment: Therapeutic Range: Moderate Anticoagulant Intensity: INR = 2.0-3.0 High Anticoagulant Intensity: INR = 2.5-3.5 Performed By: #### C BC, PT, CP #### [address] [place], [place] [address] Band Instrument Maker: Janna Monzon MD PT Coag (PPP) [Time] 12.3 s Normal 11.7-14.1 [facility] Comment on above: Performed By: #### C BC, PT, CP #### [facility] [address] [place] [address] Band Instrument Maker: Janna Monzon MD Automated erythrocytes count in urine sediment (number/area)Ordered By: Nettie Iqbal on 01-11-2023 RBC Auto (Urine sed) [#/Area] 3-4 [HPF] 0-4 [facility] Automated leukocytes count i n urine sediment (number/area)Ordered By: Nettie Iqbal on 01-11-2023 WBC Auto (Urine sed) [#/Area] 0-1 [HPF] 0-4 [facility] Automated urine sediment bina cium oxalate crystal count by microscopy (number/high powOrdered By: Nettie Iqbal on 01-11-2023 Calcium oxalate crystals LM.HPF (Urine sed) [#/Area] 3+ [HPF] [facility] Bilirubin Test strip Ql (U)O rdered By: Nettie Iqbal on 01-11-2023 Bilirubin Ql (U) Negative Negative [facility] Color Auto (U)Ordered By: Jeffery Iqbal on 01-11-2023 Color (U) Dark yellow Yellow [facility] Ketones Auto test strip (U) [Mass/Vol]Ordered By: Nettie Iqbal on 01-11-2023 Ketones (U) [Mass/Vol] Trace Negative [facility] Laboratory - UrinalysisOrder ed By: Nettie Iqbal on 01-11-2023 Hyaline casts LM Ql (Urine sed) 0-8 [LPF] 0-8 [facility] Nitrite Test strip Ql (U)Ord ered By: Nettie Iqbal on 01-11-2023 Nitrite Ql (U) Negative Negative [facility] Protein Auto test strip (U) [Mass/Vol]Ordered By: Nettie Iqbal on 01-11-2023 Protein (U) [Mass/Vol] Negative Negative [facility] Specific gravity Auto test s trip (U) [Rel density]Ordered By: Nettie Iqbal on 01-11-2023 Specific gravity (U) [Rel density] 1.022 1.001-1.030 [facility] Squamous epithelial cells de tection in urine sediment by light microscopyOrdered By: Nettie Iqbal on 01-11-2023 Epithelial cells.squamous LM Ql (Urine sed) 0-1 [HPF] 0-2 [facility] Urine bacteria detection by automated methodOrdered By: Nettie Iqbal on 01-11-2023 Bacteria Auto Ql (U) 1+ None Seen [facility] Urine clarity by refractomet ry automatedOrdered By: Nettie Iqbal on 01-11-2023 Clarity Refractometry automated (U) Cloudy Clear [facility] Urine culture routineOrdered By: Nettei Iqbal on 01-11-2023 Bacteria identified Cx Nom (U) Strep agalactiae - (group b) [facility] Urine glucose measurement by automated test strip (mass/volume)Ordered By: Nettie Iqbal on 01-11-2023 Glucose Auto test strip (U) [Mass/Vol] Normal mg/dL Normal [facility] Urine hemoglobin detection b y automated test stripOrdered By: Nettie Iqbal on 01-11-2023 Hemoglobin Auto test strip Ql (U) Negative Negative [facility] Urine leukocyte esterase det ection by automated test stripOrdered By: Nettie Iqbal on 01-11-2023 Leukocyte esterase Auto test strip Ql (U) Negative Negative [facility] Urine sediment crystal ident ification by light microscopyOrdered By: Nettie Iqbal on 01-11-2023 Crystals LM Nom (Urine sed) N/A [facility] Urobilinogen Auto test strip (U) [Mass/Vol]Ordered By: Nettie Iqbal on 01-11-2023 Urobilinogen (U) [Mass/Vol] Normal mg/dL Normal [facility] pH Auto test strip (U)Ordere d By: Nettie Iqbal on 01-11-2023 pH (U) 5.5 [pH] 5.0-9.0 [facility] ED Note-Physicianon 12-26-19 ED Note-Physician [id number]#1.[id number] [facility] Automated erythrocytes count in urine sediment (number/area)Ordered By: Nettie Iqbal on 11-20-2022 RBC Auto (Urine sed) [#/Area] 20-49 [HPF] 0-4 [facility] Automated leukocytes count i n urine sediment (number/area)Ordered By: Nettie Iqbal on 11-20-2022 WBC Auto (Urine sed) [#/Area] Innumerable [HPF] 0-4 [facility] Automated urine sediment bina cium oxalate crystal count by microscopy (number/high powOrdered By: Nettie Iqbal on 11-20-2022 Calcium oxalate crystals LM.HPF (Urine sed) [#/Area] Rare [HPF] [facility] Bilirubin Test strip Ql (U)O rdered By: Nettie Iqbal on 11-20-2022 Bilirubin Ql (U) Negative Negative [facility] Casts typing in urine sedime nt by light microscopyOrdered By: Nettie Iqbal on 11-20-2022 Casts LM Nom (Urine sed) None seen [LPF] None Seen [facility] Color Auto (U)Ordered By: Jeffery Iqbal on 11-20-2022 Color (U) Yellow Yellow [facility] Ketones Auto test strip (U) [Mass/Vol]Ordered By: Nettie Iqbal on 11-20-2022 Ketones (U) [Mass/Vol] 1+ Negative [facility] Laboratory - UrinalysisOrder ed By: Nettie Iqbal on 11-20-2022 Hyaline casts LM Ql (Urine sed) None seen [LPF] 0-8 [facility] Nitrite Test strip Ql (U)Ord ered By: Nettie Iqbal on 11-20-2022 Nitrite Ql (U) Negative Negative [facility] Protein Auto test strip (U) [Mass/Vol]Ordered By: Nettie Iqbal on 11-20-2022 Protein (U) [Mass/Vol] Trace mg/dL Negative [facility] Specific gravity Auto test s trip (U) [Rel density]Ordered By: Nettie Iqbal on 11-20-2022 Specific gravity (U) [Rel density] 1.008 1.001-1.030 [facility] Squamous epithelial cells de tection in urine sediment by light microscopyOrdered By: Nettie Iqbal on 11-20-2022 Epithelial cells.squamous LM Ql (Urine sed) 1-2 [HPF] 0-2 [facility] Urine bacteria detection by automated methodOrdered By: Nettie Iqbal on 11-20-2022 Bacteria Auto Ql (U) 4+ None Seen [facility] Urine clarity by refractomet ry automatedOrdered By: Nettie Iqbal on 11-20-2022 Clarity Refractometry automated (U) Turbid Clear [facility] Urine culture routineOrdered By: Nettie Iqbal on 11-20-2022 Bacteria identified Cx Nom (U) Klebsiella oxytoca [facility] Urine glucose measurement by automated test strip (mass/volume)Ordered By: Nettie Iqbal on 11-20-2022 Glucose Auto test strip (U) [Mass/Vol] Normal mg/dL Normal [facility] Urine hemoglobin detection b y automated test stripOrdered By: Nettie Iqbal on 11-20-2022 Hemoglobin Auto test strip Ql (U) 3+ Negative [facility] Urine leukocyte esterase det ection by automated test stripOrdered By: Nettie Iqbal on 11-20-2022 Leukocyte esterase Auto test strip Ql (U) 4+ Negative [facility] Urobilinogen Auto test strip (U) [Mass/Vol]Ordered By: Nettie Iqbal on 11-20-2022 Urobilinogen (U) [Mass/Vol] Normal mg/dL Normal [facility] pH Auto test strip (U)Ordere d By: Nettie Iqbal on 11-20-2022 pH (U) 7.5 [pH] 5.0-9.0 [facility] COVID Quick Testingon 2022 Result Negative [employer] Other PROF CHEM 8 (BAS METB)on Anion gap [Moles/Vol] 18.4 mmol/L Normal [facility] Comment on above: Performed By: #### B NILSA, TSH #### [facility] [address] [place] [address] [address] David Cannon Calcium [Mass/Vol] 9.5 mg/dL Normal 8.5-10.1 [facility] Comment on above: Performed By: #### B MP, TSH #### [facility] [address] [place] [address] [address] David Cannon Chloride [Moles/Vol] 104 mmol/L Normal 98-107 [facility] Comment on above: Performed By: #### B MP, TSH #### [facility] [address] [place] [address] [address] David Cannon CO2 [Moles/Vol] 23.5 mmol/L Normal 21.0-32.0 [facility] Comment on above: Performed By: #### B MP, TSH #### [facility] [address] [place] [address] [address] David Cannon Creatinine [Mass/Vol] 0.87 mg/dL Normal 0.55-1.02 [facility] Comment on above: Performed By: #### B MP, TSH #### [facility] [address] [place] [address] [address] David Cannon EGFR-AF NEW ZEALANDER >60 Normal >=60 [facility] Comment on above: Performed By: #### B MP, TSH #### [facility] [address] [place] [address] Dr. David Cannon EGFR-NON AF [place] ZEALANDER >60 Normal >=60 [facility] Comment on above: Performed By: #### B MP, TSH #### [facility] [address] [place] [address] [address] David Cannon Glucose [Mass/Vol] 142 mg/dL Critically high 74-106 [facility] Comment on above: Performed By: #### B MP, TSH #### [facility] [address] [address] [address] David Cannon Potassium [Moles/Vol] 3.9 mmol/L Normal 3.5-5.1 [facility] Comment on above: Performed By: #### B MP, TSH #### [facility] [address] [address] [address] David Cannon Sodium [Moles/Vol] 142 mmol/L Normal 136-145 [facility] Comment on above: Performed By: #### B MP, TSH #### [facility] [address] [address] [address] David Cannon Urea nitrogen [Mass/Vol] 15.0 mg/dL Normal 7.0-18.0 [facility] Comment on above: Performed By: #### B MP, TSH #### [facility] [address] [address] [address] David Cannon Urea nitrogen/Creatinine [Mass ratio] 17.2 mg/mg Normal [facility] Comment on above: Performed By: #### B MP, TSH #### [facility] [address] [address] [address] David Cannon TSHon 07-27-2022 TSH 1.753 uIU/mL Normal 0.358-3.740 [facility] Comment on above: Performed By: #### B MP, TSH #### [facility] [address] [address] [address] David Cannon VITAMIN B12on 07-27-2022 Cobalamin (Vitamin B12) [Mass/Vol] 938.0 pg/mL Normal 193.0-986.0 [facility] Comment on above: Performed By: #### V ITB12 ####[facility] [address] [id number] Cannon VITAMIN D 25 OHon 07-27-2022 VIT D 25-OH 45.3 ng/mL Normal [facility] Comment on above: Performed By: #### V ITAD ####[facility] [address] [id number]. David Cannon VIT D RANGES SEE BELOW Normal [facility] Comment on above: Result Comment: <20 ng/mL Vit D deficient 20 - <30 ng/mL Vit D insufficient 30 - 100 ng/mL Vit D sufficient >100 ng/mL Potential Toxicity Performed By: #### V ITAD ####[facility] [address] [address]Dr. David Cannon XR HIP RT 2 3V [...] by: JANNA HASSAN Date: 2022-07-27 21:48 Normal [facility] MG MAMM SCREEN 3D ERIC CADon 07-20-2022 MG MAMM SCREEN 3D ERIC CAD Patient: AFIA GUTIERRES Exam Date: 07/20/2022 : 1955 Gender:F Ordering : DR PHANI PRUITT D.O. Admission #: [id number] Family : Order #: [id number] CLICK HERE TO VIEW EXAM RADIOLOGY REPORT [...] colon cancer at age 72. LOCATION: [facility] BREAST COMPOSITION: Scattered areas fibroglandular density. FINDINGS: [...] M.D. on 07/20/2022 at 14:09 Normal [facility] XR DEXA BONE DENSITYon 07-20 XR DEXA [...] by: CELIA CORMIER Date: 2022-07-20 14:26 Normal [facility] Urinalysis - AUTOMATEDon Appearance (U) clear [employer] Other Bilirubin Ql (U) Negative [employer] Other Color (U) yellow [employer] Other Glucose Ql (U) Negative [employer] Other Hemoglobin Ql (U) Negative [employer] Other Ketones Ql (U) Negative [employer] Other Leukocyte esterase Test strip Ql (U) Negative [employer] Other Nitrite Ql (U) Negative [employer] Other pH (U) 5.5 [pH] [employer] Other Protein Ql (U) Negative [employer] Other Specific gravity (U) [Rel density] 1.025 [employer] Other Urobilinogen (U) [Mass/Vol] 0.2 mg/dL [employer] Other Urinalysis - AUTOMATED [employer] Other XR TSPINE 2 VIEWSon 06-17-19 23 XR TSPINE 2 VIEWS EXAMINATION: XR TSPI NE 2 VIEWS HISTORY: Pain in thoracic spine [...] CELIA CORMIER Date: 2022-06-16 13:46 Normal [facility] BNPon 06-07-2022 Natriuretic peptide B (Bld) [Mass/Vol] 68.0 pg/mL Normal <=900.0 [facility] Comment on above: Performed By: #### C RP, CMP, BNP ####[facility] [address] [address]Dr. David Cannon CBC AUTO DIFFon 06-07-2022 BASO # 0.0 103/ul Normal 0.0-0.1 [facility] Comment on above: Performed By: #### C BC ####[facility] Y[address] [place], [place] [address]Dr. David Cannon Basophils/100 WBC (Bld) 0.5 % Normal 0.2-2.0 [facility] Comment on above: Performed By: #### C BC ####[facility] Kx[address]ks[address] [place], [place] [address]Dr. David Cannon EO # 0.2 103/ul Normal 0.0-0.7 [facility] Comment on above: Performed By: #### C BC ####[facility] S[address] [place], [place] [address]Dr. David Cannon Eosinophils/100 WBC (Bld) 2.0 % Normal 0.9-7.0 [facility] Comment on above: Performed By: #### C BC ####[facility] [address] [place], [place] [address]Dr. David Cannon Erythrocyte distribution width (RBC) [Ratio] 12.3 % Normal 11.0-15.0 [facility] Comment on above: Performed By: #### C BC ####[facility] [address] [place], [place] [address]Dr. David Cannon Hematocrit (Bld) [Volume fraction] 44.4 % Normal 36.0-48.0 [facility] Comment on above: Performed By: #### C BC ####[facility] [address] [address]Dr. David Cannon Hemoglobin (Bld) [Mass/Vol] 14.3 g/dL Normal 12.0-16.0 [facility] Comment on above: Performed By: #### C BC ####[facility] [address]wn[address]ks[address] [place], [place] [address]Dr. David Cannon IG # 0.01 10e3/ul Normal 0.00-0.03 [facility] Comment on above: Performed By: #### C BC ####[facility] [address]pmu[address] [place], [place] [address]Dr. David Cannon IG % 0.1 % Normal 0.0-0.5 [facility] Comment on above: Performed By: #### C BC ####[facility] Z[address]lepe[address] [place], [place] [address]Dr. David Cannon LYMPH # 2.7 103/ul Normal 1.2-3.8 [facility] Comment on above: Performed By: #### C BC ####[facility] Izjstlhmcu[address] [place], [place] [address]Dr. David Davis Lymphocytes/100 WBC (Bld) 37.0 % Normal 20.5-60.0 [facility] Comment on above: Performed By: #### C BC ####[facility] T[address]wi[address] [place], [place] [address]Dr. Janellbraeden Cannon MANUAL DIFF REQ NO Normal [facility] Comment on above: Performed By: #### C BC ####[facility] Pypgwexrxm[address] [place], [place] [address]Dr. David Cannon MCH (RBC) [Entitic mass] 31.4 pg Normal 26.7-34.0 [facility] Comment on above: Performed By: #### C BC ####[facility] N[address]ft[address]myb[address] [place], [place] [address]Dr. Janellbraeden Cannon MCHC (RBC) [Mass/Vol] 32.2 g/dL Normal 29.9-35.2 [facility] Comment on above: Performed By: #### C BC ####[facility] [address] [address]Dr. David Cannon MCV (RBC) [Entitic vol] 97.4 fL Normal 81.0-99.0 [facility] Comment on above: Performed By: #### C BC ####[facility] Igmpxnsqoi[address] [place], [place] [address]Dr. David Cannon MONO # 0.6 103/ul Normal 0.3-0.8 [facility] Comment on above: Performed By: #### C BC ####[facility] Dsbrbazddg[address] [place], [place] [address]Dr. David Davis Monocytes/100 WBC (Bld) 7.8 % Normal 1.7-12.0 [facility] Comment on above: Performed By: #### C BC ####[facility] [address]vbxgw[address] [place], [place] [address]Dr. David Cannon NEUT # 3.9 103/ul Normal 1.4-6.5 [facility] Comment on above: Performed By: #### C BC ####[facility] Litklgjufw[address] [place], [place] [address]Dr. David Davis Neutrophils/100 WBC (Bld) 52.6 % Normal 43.0-75.0 [facility] Comment on above: Performed By: #### C BC ####[facility] Txxcomdfhf[address] [place], [place] [address]Dr. David Davis Platelet mean volume (Bld) [Entitic vol] 9.0 fL Critically low 9.5-13.5 [facility] Comment on above: Performed By: #### C BC ####[facility] [address]kez[address]we[address] [place], [place] [address]Dr. David Davis PLT 233 103/ul Normal 150-450 [facility] Comment on above: Performed By: #### C BC ####[facility] [address]ec[address]bpj[address] [place], [place] [address]Dr. David Cannon RBC 4.56 106/ul Normal 4.20-5.40 [facility] Comment on above: Performed By: #### C BC ####[facility] [address] [address]Dr. David Cannon WBC 7.4 103/ul Normal 4.0-11.0 [facility] Comment on above: Performed By: #### C BC ####[facility] [address] [address]Dr. David Cannon CRPon 06-07-2022 CRP [Mass/Vol] mg/L Normal <=1.0 [facility] Comment on above: Performed By: #### C RP, CMP, BNP ####[facility] [address] [address]Dr. David Cannon CULTURE URINEon 06-07-2022 CULTURE URINE Culture Observations : LIGHT GROWTH OF MIXED GENITAL ANISHA. NO POTENTIAL PATHOGENS SEEN. Normal [facility] Comment on above: Performed By: #### U RCX ####[facility] [address] [address]Dr. David Cannon ER URINE PROFILEon 3 Bilirubin Ql (U) Negative Normal NEGATIVE [facility] Comment on above: Performed By: #### B MP, TSH #### [facility] [address] [place] [address] Dr. David Cannon Clarity (U) CLEAR Normal CLEAR [facility] Comment on above: Performed By: #### B MP, TSH #### [facility] [address] [address] [address] David Cannon Color (U) LT. YELLOW Normal YELLOW [facility] Comment on above: Performed By: #### B MP, TSH #### [facility] [address] [place] [address] Dr. David Cannon ERUAHD A micrscopic examination will be performed if indicated. Normal [facility] Comment on above: Performed By: #### B MP, TSH #### [facility] [address] [place] [address] Dr. David Cannon Glucose Ql (U) Negative Normal NEGATIVE [facility] Comment on above: Performed By: #### B MP, TSH #### [facility] [address] [place] [address] Dr. David Cannon Hemoglobin Ql (U) Negative Normal NEGATIVE [facility] Comment on above: Performed By: #### B MP, TSH #### [facility] [address] [place] [address] Dr. David Cannon Ketones Ql (U) Negative Normal NEGATIVE [facility] Comment on above: Performed By: #### B MP, TSH #### [facility] [address] [place] [address] Dr. David Cannon LEUKOCYTES SMALL Abnormal NEGATIVE [facility] Comment on above: Performed By: #### B MP, TSH #### [facility] [address] [place] [address] Dr. David Cannon Nitrite Ql (U) Negative Normal NEGATIVE [facility] Comment on above: Performed By: #### B MP, TSH #### [facility] [address] [place] [address] Dr. David Cannon pH (U) 6.0 [pH] Normal 5-9 [facility] Comment on above: Performed By: #### B MP, TSH #### [facility] [address] [place] [address] Dr. David Cannon SPEC GRAVITY 1.010 Normal 1.005-<=1.02 5 [facility] Comment on above: Performed By: #### B MP, TSH #### [facility] [address] [place] [address] Dr. David Cannon UA PROTEIN Negative Normal NEGATIVE/ TRACE [facility] Comment on above: Performed By: #### B MP, TSH #### [facility] [address] [place] [address] Dr. David Cannon UR MICRO IND INDICATED Normal [facility] Comment on above: Performed By: #### B MP, TSH #### [facility] [address] [place] [address] Dr. David Cannon Urobilinogen Qn (U) 0.2 {Skip'U}/dL Normal 0.2 - 1. 0 [facility] Comment on above: Performed By: #### B MP, TSH #### [facility] [address] [place], [place] [address] Dr. David Cannon PROF 14(COMP METB)on 023 Albumin [Mass/Vol] 4.3 g/dL Normal 3.4-5.0 [facility] Comment on above: Performed By: #### C RP, CMP, BNP ####[facility] [address] [address]Dr. David Cannon Albumin/Globulin [Mass ratio] 1.1 {ratio} Normal [facility] Comment on above: Performed By: #### C RP, CMP, BNP ####[facility] [address] [address]Dr. David Cannon ALP [Catalytic activity/Vol] 82 U/L Normal 46-116 [facility] Comment on above: Performed By: #### C RP, CMP, BNP ####[facility] [address] [address]Dr. David Cannno ALT [Catalytic activity/Vol] 21 U/L Normal 14-59 [facility] Comment on above: Performed By: #### C RP, CMP, BNP ####[facility] [address] [address]Dr. David Cannon Anion gap [Moles/Vol] 12.3 mmol/L Normal [facility] Comment on above: Performed By: #### C RP, CMP, BNP ####[facility] [address] [address]Dr. David Cannon AST [Catalytic activity/Vol] 15 U/L Normal 15-37 [facility] Comment on above: Performed By: #### C RP, CMP, BNP ####[facility] [address] [address]Dr. David Cannon Bilirubin [Mass/Vol] 0.2 mg/dL Normal 0.2-1.0 [facility] Comment on above: Performed By: #### C RP, CMP, BNP ####[facility] [address] [address]Dr. David Cannon Calcium [Mass/Vol] 9.2 mg/dL Normal 8.5-10.1 [facility] Comment on above: Performed By: #### C RP, CMP, BNP ####[facility] [address] [address]Dr. David Cannon Chloride [Moles/Vol] 104 mmol/L Normal 98-107 [facility] Comment on above: Performed By: #### C RP, CMP, BNP ####[facility] [address] [address]Dr. David Cannon CO2 [Moles/Vol] 31.2 mmol/L Normal 21.0-32.0 [facility] Comment on above: Performed By: #### C RP, CMP, BNP ####[facility] [address] [address]Dr. David Cannon Creatinine [Mass/Vol] 0.52 mg/dL Critically low 0.55-1.02 [facility] Comment on above: Performed By: #### C RP, CMP, BNP ####[facility] [address] [address]Dr. David Cannon EGFR-AF NEW ZEALANDER >60 Normal >=60 [facility] Comment on above: Performed By: #### C RP, CMP, BNP ####[facility] [address] [place], [place] [address]Dr. David Cannon EGFR-NON AF NEW ZEALANDER >60 Normal >=60 [facility] Comment on above: Performed By: #### C RP, CMP, BNP ####[facility] [address] [address]Dr. David Cannon Globulin (S) [Mass/Vol] 3.9 g/dL Normal [facility] Comment on above: Performed By: #### C RP, CMP, BNP ####[facility] [address] [address]Dr. David Cannon Glucose [Mass/Vol] 79 mg/dL Normal 74-106 [facility] Comment on above: Performed By: #### C RP, CMP, BNP ####[facility] [address] [address]Dr. David Cannon Potassium [Moles/Vol] 3.5 mmol/L Normal 3.5-5.1 [facility] Comment on above: Performed By: #### C RP, CMP, BNP ####[facility] [address] [address]Dr. David Cannon Protein [Mass/Vol] 8.2 g/dL Normal 6.4-8.2 [facility] Comment on above: Performed By: #### C RP, CMP, BNP ####[facility] [address] [address]Dr. David Cannon Sodium [Moles/Vol] 144 mmol/L Normal 136-145 [facility] Comment on above: Performed By: #### C RP, CMP, BNP ####[facility] [address] [address]Dr. David Cannon Urea nitrogen [Mass/Vol] 16.0 mg/dL Normal 7.0-18.0 [facility] Comment on above: Performed By: #### C RP, CMP, BNP ####[facility] [address] [address]Dr. David Cannon Urea nitrogen/Creatinine [Mass ratio] 30.8 mg/mg Normal [facility] Comment on above: Performed By: #### C RP, CMP, BNP ####[facility] [address] [address]Dr. David Cannon PROTIMEon 06-07-2022 INR Coag (PPP) [Relative time] {INR} Normal [facility] Comment on above: Performed By: #### A NARF #### [facility] [address] [address] [address] David Cannon INR GUIDELINES SEE BELOW Normal [facility] Comment on above: Result Comment: SURY RED INR: 2.0 - 3.0 CONDITIONS NOT LISTED BELOW 2.5 - 3.5 FOR PROSTHETIC HEART VALVE REPLACEMENT 2.5 - 3.5 RECURRENT THROMBOSIS Performed By: #### A NARF #### [facility] [address] [address] [address] David Cannon PT Coag (PPP) [Time] 9.6 s Normal 9.0-11.6 [facility] Comment on above: Performed By: #### A NARF #### [facility] [address] [place] [address] Dr. David Cannon PTTon 06-07-2022 aPTT Coag (Bld) [Time] 25.6 s Normal 22.3-36.2 [facility] Comment on above: Performed By: #### A NARF #### [facility] [address] [place] [address] Dr. David Cannon SED RATE WESTERGRENon 2022 SED RATE 21 mm/hr Normal <=30 [facility] Comment on above: Performed By: #### S EDR ####[facility] [address] [address]Dr. David Cannon URINE MICROSCOPIC ONLYon BACTERIA SMALL Abnormal NONE SEEN [facility] Comment on above: Performed By: #### B MP, TSH #### [facility] [address] [place] [address] Dr. David Cannon Bacteria identified Cx Nom (U) INDICATED Normal [facility] Comment on above: Performed By: #### B MP, TSH #### [facility] [address] [place] [address] Dr. David Cannon CAST NONE SEEN Normal NONE SEEN [facility] Comment on above: Performed By: #### B MP, TSH #### [facility] [address] [place] [address] Dr. David Cannon Crystals LM Nom (Urine sed) NONE SEEN Normal NONE SEEN [facility] Comment on above: Performed By: #### B MP, TSH #### [facility] [address] [place] [address] Dr. David Cannon Epithelial cells LM Ql (Urine sed) FEW Abnormal NONE SEEN /RARE [facility] Comment on above: Performed By: #### B MP, TSH #### [facility] [address] [place] [address] Dr. David Cannon MUCOUS NONE SEEN Normal NONE SEEN [facility] Comment on above: Performed By: #### B MP, TSH #### [facility] [address] [place] [address] Dr. David Cannon RBC 0-2 Normal 0-2 [facility] Comment on above: Performed By: #### B MP, TSH #### [facility] [address] [place] [address] Dr. David Cannon WBC 5-10 Abnormal NONE SEEN [facility] Comment on above: Performed By: #### B MP, TSH #### [facility] [address] [place] [address] Dr. David Cannon NISHI EIA W/REFLEX 5 BIOMARKER Son 05-30-2022 NISHI Direct Negative Normal Negative [facility] Comment on above: Performed By: #### A NARF #### [facility] [address] [place] [address] Dr. Davdi Cannon C-Reactive Proteinon 023 C-Reactive Protein 0.3 mg/dL <=1.0 mg/dL [employer] Other CBC AUTO DIFFon 05-29-2022 BASO # 0.0 103/ul Normal 0.0-0.1 [facility] Comment on above: Performed By: #### A NARF #### [facility] [address] [place] [address] Dr. David Cannon Basophils/100 WBC (Bld) 0.3 % Normal 0.2-2.0 [facility] Comment on above: Performed By: #### A NARF #### [facility] [address] [place] [address] Dr. David Cannon EO # 0.1 103/ul Normal 0.0-0.7 [facility] Comment on above: Performed By: #### A NARF #### [facility] [address] [place] [address] Dr. David Cannon Eosinophils/100 WBC (Bld) 1.7 % Normal 0.9-7.0 [facility] Comment on above: Performed By: #### A NARF #### [facility] [address] [place] [address] Dr. David Cannon Erythrocyte distribution width (RBC) [Ratio] 12.0 % Normal 11.0-15.0 [facility] Comment on above: Performed By: #### A NARF #### [facility] [address] [place] [address] Dr. David Cannon Hematocrit (Bld) [Volume fraction] 43.9 % Normal 36.0-48.0 [facility] Comment on above: Performed By: #### A NARF #### [facility] [address] [place] [address] Dr. David Cannon Hemoglobin (Bld) [Mass/Vol] 14.0 g/dL Normal 12.0-16.0 [facility] Comment on above: Performed By: #### A NARF #### [facility] [address] [place] [address] Dr. David Cannon IG # 0.02 10e3/ul Normal 0.00-0.03 [facility] Comment on above: Performed By: #### A NARF #### [facility] [address] [place] [address] Dr. David Cannon IG % 0.3 % Normal 0.0-0.5 [facility] Comment on above: Performed By: #### A NARF #### [facility] [address] [place] [address] Dr. David Cannon LYMPH # 2.0 103/ul Normal 1.2-3.8 [facility] Comment on above: Performed By: #### A NARF #### [facility] [address] [place] [address] Dr. David Cannon Lymphocytes/100 WBC (Bld) 31.7 % Normal 20.5-60.0 [facility] Comment on above: Performed By: #### A NARF #### [facility] [address] [place] [address] Dr. David Cannon MANUAL DIFF REQ NO Normal [facility] Comment on above: Performed By: #### A NARF #### [facility] [address] [place] [address] Dr. David Cannon MCH (RBC) [Entitic mass] 30.8 pg Normal 26.7-34.0 [facility] Comment on above: Performed By: #### A NARF #### [facility] [address] [place] [address] Dr. David Cannon MCHC (RBC) [Mass/Vol] 31.9 g/dL Normal 29.9-35.2 [facility] Comment on above: Performed By: #### A NARF #### [facility] [address] [place] [address] Dr. David Cannon MCV (RBC) [Entitic vol] 96.5 fL Normal 81.0-99.0 [facility] Comment on above: Performed By: #### A NARF #### [facility] [address] [place] [address] Dr. David Cannon MONO # 0.4 103/ul Normal 0.3-0.8 [facility] Comment on above: Performed By: #### A NARF #### [facility] [address] [place] [address] Dr. David Cannon Monocytes/100 WBC (Bld) 6.2 % Normal 1.7-12.0 [facility] Comment on above: Performed By: #### A NARF #### [facility] [address] [place] [address] Dr. David Cannon NEUT # 3.9 103/ul Normal 1.4-6.5 [facility] Comment on above: Performed By: #### A NARF #### [facility] [address] [place] [address] Dr. David Cannon Neutrophils/100 WBC (Bld) 59.8 % Normal 43.0-75.0 [facility] Comment on above: Performed By: #### A NARF #### [facility] [address] [place] [address] Dr. David Cannon Platelet mean volume (Bld) [Entitic vol] 8.7 fL Critically low 9.5-13.5 [facility] Comment on above: Performed By: #### A NARF #### [facility] [id number] David Cannon PLT 263 103/ul Normal 150-450 [facility] Comment on above: Performed By: #### A NARF #### [facility] [id number] David Cannon RBC 4.55 106/ul Normal 4.20-5.40 [facility] Comment on above: Performed By: #### A NARF #### [facility] [address] [address] [address] David Cannon WBC 6.4 103/ul Normal 4.0-11.0 [facility] Comment on above: Performed By: #### A NARF #### [facility] [address] [address] [address] David Cannon CRPon 05-29-2022 CRP 0.3 mg/dL Normal <=1.0 [facility] Comment on above: Performed By: #### C RP, CMP ####[facility] [id number] [address]Dr. David Cannon Complete Blood Count and Dif jin 05-29-2022 Anisocytosis Ql (Bld) [facility] [employer] Other Basophilic stippling LM Ql (Bld) [facility] [employer] Other RBC morphology finding Nom (Bld) [employer] Other Complete Blood Count and Diff [facility] [employer] Other Comprehensive Metabolic Pane sincere 05-29-2022 Albumin/Globulin [Mass ratio] 0.9 {ratio} Normal [facility] [employer] Other Comment on above: Performed By: #### A NARF #### [facility] [address] [address] [address] David Cannon ALP [Catalytic activity/Vol] 79 U/L Normal 46-116 [facility] [employer] Other Comment on above: Performed By: #### A NARF #### [facility] [address] [address] [address] David Cannon ALT [Catalytic activity/Vol] 20 U/L Normal 14-59 [facility] [employer] Other Comment on above: Performed By: #### A NARF #### [facility] [address] [place], [place] [address] Dr. David Cannon Anion gap [Moles/Vol] 12.7 mmol/L Normal No rt [employer] Other Comment on above: Performed By: #### A NARF #### [facility] [address] [address] [address] David Cannon AST [Catalytic activity/Vol] 20 U/L Normal 15-37 [facility] [employer] Other Comment on above: Performed By: #### A NARF #### [facility] [address] [place] [address] Dr. David Cannon Chloride [Moles/Vol] 102 mmol/L Normal 98-107 [facility] [employer] Other Comment on above: Performed By: #### A NARF #### [facility] [address] [place], [place] [address] Dr. David Cannon Urea nitrogen/Creatinine [Mass ratio] 29.0 mg/mg Normal [facility] [employer] Other Comment on above: Performed By: #### A NARF #### [facility] [address] [place] [address] Dr. David Cannon Albumin [Mass/Vol] 3.021861 g/dL 3.4-5.0 g/dL [facility] [employer] Other Calcium [Mass/Vol] 9.5804301 mg/dL 8.5-10 .1 mg/dL [place] [employer] Other CO2 [Moles/Vol] 31.65416042 mmol/L 21.0-3 2.0 mmol/L [place] [employer] Other Creatinine [Mass/Vol] 0.30483089 mg/dL 0. 55-1.02 mg/dL [employer] Other Potassium [Moles/Vol] 4.25683214 mmol/L 3 .5-5.1 mmol/L [employer] Other Protein [Mass/Vol] 8.638867 g/dL 6.4-8.2 g/dL [employer] Other Urea nitrogen [Mass/Vol] 18.1974693 mg/dL 7.0-18.0 mg/dL [employer] Other Comprehensive Metabolic Panel see note [employer] Other Comprehensive Metabolic Panel 142 mmol/L 136-145 mmol/L [employer] Other Comprehensive Metabolic Panel 102 mg/dL 74-106 mg/dL [employer] Other Comprehensive Metabolic Panel >60 mL/min/1.73m2 >=60 mL/min/1.73m 2 [employer] Other Comprehensive Metabolic Panel 0.2 mg/dL 0.2-1.0 mg/dL [employer] Other Comprehensive Metabolic Panel 4.3 g/dL [employer] Other PROF 14(COMP METB)on 023 Albumin [Mass/Vol] 3.8 g/dL Normal 3.4-5.0 [facility] Comment on above: Performed By: #### A NARF #### [facility] [address] [address] [address] David Cannon Bilirubin [Mass/Vol] 0.2 mg/dL Normal 0.2-1.0 [facility] Comment on above: Performed By: #### A NARF #### [facility] [address] [address] [address] David Cannon Calcium [Mass/Vol] 9.9 mg/dL Normal 8.5-10.1 [facility] Comment on above: Performed By: #### A NARF #### [facility] [address] [address] [address] David Cannon CO2 [Moles/Vol] 31.4 mmol/L Normal 21.0-32.0 [facility] Comment on above: Performed By: #### A NARF #### [facility] [address] [address] [address] David Cannon Creatinine [Mass/Vol] 0.62 mg/dL Normal 0.55-1.02 [facility] Comment on above: Performed By: #### A NARF #### [facility] [address] [address] [address] David Cannon EGFR-AF NEW ZEALANDER >60 Normal >=60 [facility] Comment on above: Performed By: #### A NARF #### [facility] [address] [place] [address] Dr. David Cannon EGFR-NON AF NEW ZEALANDER >60 Normal >=60 [facility] Comment on above: Performed By: #### A NARF #### [facility] [address] [place] [address] Dr. David Cannon Globulin (S) [Mass/Vol] 4.3 g/dL Normal [facility] Comment on above: Performed By: #### A NARF #### [facility] [address] [place] [address] Dr. David Cannon Glucose [Mass/Vol] 102 mg/dL Normal 74-106 [facility] Comment on above: Performed By: #### A NARF #### [facility] [address] [place] [address] Dr. David Cannon Potassium [Moles/Vol] 4.1 mmol/L Normal 3.5-5.1 [facility] Comment on above: Performed By: #### A NARF #### [facility] [address] [place] [address] Dr. David Cannon Protein [Mass/Vol] 8.1 g/dL Normal 6.4-8.2 [facility] Comment on above: Performed By: #### A NARF #### [facility] [address] [place] [address] Dr. David Cannon Sodium [Moles/Vol] 142 mmol/L Normal 136-145 [facility] Comment on above: Performed By: #### A NARF #### [facility] [address] [address] [address] David Cannon Urea nitrogen [Mass/Vol] 18.0 mg/dL Normal 7.0-18.0 [facility] Comment on above: Performed By: #### A NARF #### [facility] [address] [place] [address] Dr. David Cannon UA RANDOM W/MICROSCOPICon AMORPHOUS CRYSTALS RARE Normal [facility] Comment on above: Performed By: #### B MP, TSH #### [facility] [address] [place] [address] Dr. David Cannon BACTERIA NONE SEEN Normal NONE SEEN [facility] Comment on above: Performed By: #### B MP, TSH #### [facility] [address] [place] [address] Dr. David Cannon Bilirubin Ql (U) Negative Normal NEGATIVE [employer] Other Comment on above: Performed By: #### B MP, TSH #### [facility] [address] [place] [address] Dr. David Cannon CAST NONE SEEN Normal NONE SEEN [facility] Comment on above: Performed By: #### B MP, TSH #### [facility] [address] [place] [address] Dr. David Cannon Clarity (U) CLEAR Normal CLEAR [employer] Other Comment on above: Performed By: #### B MP, TSH #### [facility] [address] [place] [address] Dr. David Cannon Color (U) LT. YELLOW Normal YELLOW [employer] Other Comment on above: Performed By: #### B MP, TSH #### [facility] [address] [place] [address] Dr. David Cannon Crystals LM Nom (Urine sed) SEEN Abnormal NONE SEEN [facility] Comment on above: Performed By: #### B MP, TSH #### [facility] [address] [place] [address] Dr. David Cannon Epithelial cells LM Ql (Urine sed) RARE Normal NONE SEEN /RARE [facility] Comment on above: Performed By: #### B MP, TSH #### [facility] [address] [address] [address] David Cannon Glucose Ql (U) Negative Normal NEGATIVE [employer] Other Comment on above: Performed By: #### B MP, TSH #### [facility] [address] [address] [address] David Cannon Hemoglobin Ql (U) Negative Normal NEGATIVE [employer] Other Comment on above: Performed By: #### B MP, TSH #### [facility] [address] [place] [address] Dr. David Cannon Ketones Ql (U) Negative Normal NEGATIVE [employer] Other Comment on above: Performed By: #### B MP, TSH #### [facility] [address] [place] [address] Dr. David Cannon LEUKOCYTES Negative Normal NEGATIVE [facility] Comment on above: Performed By: #### B MP, TSH #### [facility] [address] [address] [address] David Cannon MUCOUS NONE SEEN Normal NONE SEEN [facility] Comment on above: Performed By: #### B MP, TSH #### [facility] [address] [address] [address] David Cannon Nitrite Ql (U) Negative Normal NEGATIVE [employer] Other Comment on above: Performed By: #### B MP, TSH #### [facility] [address] [address] [address] David Cannon pH (U) 7.0 [pH] Normal 5-9 [employer] Other Comment on above: Performed By: #### B MP, TSH #### [facility] [address] [place] [address] Dr. David Cannon RBC 0-2 Normal 0-2 [facility] Comment on above: Performed By: #### B MP, TSH #### [facility] [address] [address] [address] David Cannon SPEC GRAVITY 1.020 Normal 1.005-<=1.02 5 [facility] Comment on above: Performed By: #### B MP, TSH #### [facility] [address] [address] [address] David Cannon UA PROTEIN Negative Normal NEGATIVE/ TRACE [facility] Comment on above: Performed By: #### B MP, TSH #### [facility] [address] [address] [address] David Cannon Urobilinogen Qn (U) 0.2 {Skip'U}/dL Normal 0.2 - 1. 0 [facility] Comment on above: Performed By: #### B MP, TSH #### [facility] [address] [place] [address] Dr. David Cannon WBC NONE SEEN Normal NONE SEEN [facility] Comment on above: Performed By: #### B MP, TSH #### [facility] [address] [place] [address] Dr. David Cannon Crystals LM Nom (Urine sed) SEEN #/HPF Abnormal NONE SEEN #/HPF [employer] Other Epithelial cells LM Ql (Urine sed) RARE #/LPF NONE SEEN /RARE #/LPF [employer] Other UA RANDOM W/MICROSCOPIC 1.020 1.005-<=1.02 5 [employer] Other UA RANDOM W/MICROSCOPIC Negative NEGATIVE [employer] Other UA RANDOM W/MICROSCOPIC 0.2 EU/dl 0.2 - 1.0 EU/dl [employer] Other UA RANDOM W/MICROSCOPIC NONE SEEN #/HPF NONE SEEN #/HPF [employer] Other UA RANDOM W/MICROSCOPIC 0-2 #/HPF 0-2 #/HPF [employer] Other UA RANDOM W/MICROSCOPIC NONE SEEN #/LPF NONE SEEN #/LPF [employer] Other UA RANDOM W/MICROSCOPIC NONE SEEN NONE SEEN [employer] Other UA RANDOM W/MICROSCOPIC RARE [employer] Other CULTURE URINEon 04-13-2022 CULTURE URINE Isolate 1 Escherichia coli >100,000 cfu/ ml of ORGANISM 1 Escherichia coli ANTIBIOTIC M.I.C RX STATUS Ampicillin >=32 R F Ampicillin/Sulbactam >=32 R F Piperacillin/Tazobacta m <=4 S F Cefazolin <=4 S F Ceftazidime <=1 S F Ceftriaxone <=1 S F Ertapenem <=0.5 S F Imipenem <=0.25 S F Amikacin <=2 S F Gentamicin <=1 S F Tobramycin <=1 S F Ciprofloxacin <=0.25 S F Levofloxacin <=0.12 S F Nitrofurantoin <=16 S F Trimethoprim/Sulfameth oxazole <=20 S F Normal [facility] Comment on above: Performed By: #### U RCX ####[facility] [id number] [address]Dr. David Cannon VAGINITIS/VAGINOSIS DNA PROB Hugo 04-12-2022 Susan species Negative Normal Negative [facility] Comment on above: Performed By: #### B MP, TSH #### [facility] [address] [address] [address] David Cannon Gardnerella vaginalis Negative Normal Negative [facility] Comment on above: Performed By: #### B MP, TSH #### [facility] [address] [address] [address] David Cannon Trichomonas vaginalis Negative Normal Negative [facility] Comment on above: Performed By: #### B MP, TSH #### [facility] [address] [address] [address] David Cannon BNPon 02-24-2022 Natriuretic peptide B (Bld) [Mass/Vol] 173.0 pg/mL Normal <=900.0 [facility] Comment on above: Performed By: #### B MP, TSH #### [facility] [address] [address] [address] David Cannon CARDIAC WAI 3-6on 2 CK [Catalytic activity/Vol] 47 U/L Normal 26-192 [facility] Comment on above: Performed By: #### B MP, TSH #### [facility] [address] [address] [address] David Cannon CK.MB [Mass/Vol] ng/mL Normal <=3.60 [facility] Comment on above: Performed By: #### B MP, TSH #### [facility] [address] [address] [address] David Cannon HSTROP 7.0 pg/mL Normal 4.0-51.3 [facility] Comment on above: Result Comment: CUT- OFF POINTS HAVE BEEN ESTABLISHED BASED ON THE FOURTH UNIVERSAL DEFINITIONS OF MYOCARDIAL INFARCTION. THE UPPER REFERENCE LIMIT (URL) OF TROPONIN, DEFINED THE 99TH PERCENTILE OF cTnI DISTRIBUTION IN A REFERENCE POPULATION, HAS BEEN CONFIRMED THE DECISION THRESHOLD FOR PA DIAGNOSIS. Performed By: #### B MP, TSH #### [facility] [address] [place] [address] Dr. David Cannon CK [Catalytic activity/Vol] 44 U/L Normal 26-192 [facility] Comment on above: Performed By: #### B MP, TSH #### [facility] [address] [address] [address] David Cannon CK.MB [Mass/Vol] ng/mL Normal <=3.60 [facility] Comment on above: Performed By: #### B MP, TSH #### [facility] [address] [address] [address] David Cannon HSTROP 5.3 pg/mL Normal 4.0-51.3 [facility] Comment on above: Result Comment: CUT- OFF POINTS HAVE BEEN ESTABLISHED BASED ON THE FOURTH UNIVERSAL DEFINITIONS OF MYOCARDIAL INFARCTION. THE UPPER REFERENCE LIMIT (URL) OF TROPONIN, DEFINED THE 99TH PERCENTILE OF cTnI DISTRIBUTION IN A REFERENCE POPULATION, HAS BEEN CONFIRMED THE DECISION THRESHOLD FOR PA DIAGNOSIS. Performed By: #### B MP, TSH #### [facility] [address] [place] [address] Dr. David Cannon CBC AUTO DIFFon 02-24-2022 BASO # 0.0 103/ul Normal 0.0-0.1 [facility] Comment on above: Performed By: #### C BC #### [facility] [address] [place] [address] Dr. David Cannon Basophils/100 WBC (Bld) 0.3 % Normal 0.2-2.0 [facility] Comment on above: Performed By: #### C BC #### [facility] [address] [place] [address] Dr. David Cannon EO # 0.2 103/ul Normal 0.0-0.7 [facility] Comment on above: Performed By: #### C BC #### [facility] [address] [place] [address] Dr. David Cannon Eosinophils/100 WBC (Bld) 2.6 % Normal 0.9-7.0 [facility] Comment on above: Performed By: #### C BC #### [facility] [address] [place] [address] Dr. David Cannon Erythrocyte distribution width (RBC) [Ratio] 12.1 % Normal 11.0-15.0 [facility] Comment on above: Performed By: #### C BC #### [facility] [address] [place] [address] Dr. David Cannon Hematocrit (Bld) [Volume fraction] 39.9 % Normal 36.0-48.0 [facility] Comment on above: Performed By: #### C BC #### [facility] [address] [place] [address] Dr. David Cannon Hemoglobin (Bld) [Mass/Vol] 13.2 g/dL Normal 12.0-16.0 [facility] Comment on above: Performed By: #### C BC #### [facility] [address] [place] [address] Dr. David Cannon IG # 0.01 10e3/ul Normal 0.00-0.03 [facility] Comment on above: Performed By: #### C BC #### [facility] [address] [place] [address] Dr. David Cannon IG % 0.2 % Normal 0.0-0.5 [facility] Comment on above: Performed By: #### C BC #### [facility] [address] [place] [address] Dr. David Cannon LYMPH # 2.8 103/ul Normal 1.2-3.8 [facility] Comment on above: Performed By: #### C BC #### [facility] [address] [place] [address] Dr. David Cannon Lymphocytes/100 WBC (Bld) 48.1 % Normal 20.5-60.0 [facility] Comment on above: Performed By: #### C BC #### [facility] [address] [place] [address] Dr. David Cannon MANUAL DIFF REQ NO Normal [facility] Comment on above: Performed By: #### C BC #### [facility] [address] [place] [address] Dr. David Cannon MCH (RBC) [Entitic mass] 31.6 pg Normal 26.7-34.0 [facility] Comment on above: Performed By: #### C BC #### [facility] [address] [place] [address] Dr. David Cannon MCHC (RBC) [Mass/Vol] 33.1 g/dL Normal 29.9-35.2 [facility] Comment on above: Performed By: #### C BC #### [facility] [address] [place] [address] Dr. David Cannon MCV (RBC) [Entitic vol] 95.5 fL Normal 81.0-99.0 [facility] Comment on above: Performed By: #### C BC #### [facility] [address] [place] [address] Dr. David Cannon MONO # 0.4 103/ul Normal 0.3-0.8 [facility] Comment on above: Performed By: #### C BC #### [facility] [address] [place] [address] Dr. David Cannon Monocytes/100 WBC (Bld) 6.1 % Normal 1.7-12.0 [facility] Comment on above: Performed By: #### C BC #### [facility] [address] [place] [address] Dr. David Cannon NEUT # 2.5 103/ul Normal 1.4-6.5 [facility] Comment on above: Performed By: #### C BC #### [facility] [address] [place] [address] Dr. David Cannon Neutrophils/100 WBC (Bld) 42.7 % Critically low 43.0-75.0 [facility] Comment on above: Performed By: #### C BC #### [facility] [address] [place] [address] Dr. David Cannon Platelet mean volume (Bld) [Entitic vol] 8.7 fL Critically low 9.5-13.5 [facility] Comment on above: Performed By: #### C BC #### [facility] [address] [place] [address] Dr. David Cannon PLT 166 103/ul Normal 150-450 [facility] Comment on above: Performed By: #### C BC #### [facility] [address] [place] [address] Dr. David Cannon RBC 4.18 106/ul Critically low 4.20-5.40 [facility] Comment on above: Performed By: #### C BC #### [facility] [address] [place] [address] Dr. David Cannon WBC 5.7 103/ul Normal 4.0-11.0 [facility] Comment on above: Performed By: #### C BC #### [facility] [address] [place] [address] Dr. David Cannon PROF 14(COMP METB)on 022 Albumin [Mass/Vol] 3.4 g/dL Normal 3.4-5.0 [facility] Comment on above: Performed By: #### B MP, TSH #### [facility] [address] [place] [address] Dr. David Cannon Albumin/Globulin [Mass ratio] 1.2 {ratio} Normal [facility] Comment on above: Performed By: #### B MP, TSH #### [facility] [address] [place] [address] Dr. David Cannon ALP [Catalytic activity/Vol] 60 U/L Normal 46-116 [facility] Comment on above: Performed By: #### B MP, TSH #### [facility] [address] [place] [address] Dr. David Cannon ALT [Catalytic activity/Vol] 16 U/L Normal 14-59 [facility] Comment on above: Performed By: #### B MP, TSH #### [facility] [address] [place] [address] Dr. David Cannon Anion gap [Moles/Vol] 10.5 mmol/L Normal [facility] Comment on above: Performed By: #### B MP, TSH #### [facility] [address] [place] [address] Dr. David Cannon AST [Catalytic activity/Vol] 17 U/L Normal 15-37 [facility] Comment on above: Performed By: #### B MP, TSH #### [facility] [address] [place] [address] Dr. David Cannon Bilirubin [Mass/Vol] 0.4 mg/dL Normal 0.2-1.0 [facility] Comment on above: Performed By: #### B MP, TSH #### [facility] [address] [place] [address] Dr. David Cannon Calcium [Mass/Vol] 8.8 mg/dL Normal 8.5-10.1 [facility] Comment on above: Performed By: #### B MP, TSH #### [facility] [address] [place] [address] Dr. David Cannon Chloride [Moles/Vol] 106 mmol/L Normal 98-107 [facility] Comment on above: Performed By: #### B MP, TSH #### [facility] [address] [place] [address] Dr. David Cannon CO2 [Moles/Vol] 28.4 mmol/L Normal 21.0-32.0 [facility] Comment on above: Performed By: #### B NILSA, TSH #### [facility] [address] [place] [address] Dr. David Cannon Creatinine [Mass/Vol] 0.61 mg/dL Normal 0.55-1.02 [facility] Comment on above: Performed By: #### B NILSA, TSH #### [facility] [address] [address] [address] David Cannon EGFR-AF NEW ZEALANDER >60 Normal >=60 [facility] Comment on above: Performed By: #### B NILSA, TSH #### [facility] [address] [place] [address] Dr. David Cannon EGFR-NON AF NEW ZEALANDER >60 Normal >=60 [facility] Comment on above: Performed By: #### B NILSA, TSH #### [facility] [address] [address] [address] David Cannon Globulin (S) [Mass/Vol] 2.9 g/dL Normal [facility] Comment on above: Performed By: #### B NILSA, TSH #### [facility] [address] [address] [address] David Cannon Glucose [Mass/Vol] 79 mg/dL Normal 74-106 [facility] Comment on above: Performed By: #### B NILSA, TSH #### [facility] [address] [address] [address] David Cannon Potassium [Moles/Vol] 3.9 mmol/L Normal 3.5-5.1 [facility] Comment on above: Performed By: #### B NILSA, TSH #### [facility] [address] [place] [address] Dr. David Cannon Protein [Mass/Vol] 6.3 g/dL Critically low 6.4-8.2 [facility] Comment on above: Performed By: #### B NILSA, TSH #### [facility] [address] [place] [address] Dr. David Cannon Sodium [Moles/Vol] 141 mmol/L Normal 136-145 [facility] Comment on above: Performed By: #### B NILSA, TSH #### [facility] [address] [place] [address] Dr. David Cannon Urea nitrogen [Mass/Vol] 8.0 mg/dL Normal 7.0-18.0 [facility] Comment on above: Performed By: #### B NILSA, TSH #### [facility] [address] [place] [address] Dr. David Cannon Urea nitrogen/Creatinine [Mass ratio] 13.1 mg/mg Normal [facility] Comment on above: Performed By: #### B NISLA, TSH #### [facility] [address] [place] [address] Dr. David Cannon BNPon 02-23-2022 Natriuretic peptide B (Bld) [Mass/Vol] 124.0 pg/mL Normal <=900.0 [facility] Comment on above: Performed By: #### A NARF #### [facility] [address] [place] [address] Dr. David Cannon CARDIAC WAI 3-6on 2 CK [Catalytic activity/Vol] 44 U/L Normal 26-192 [facility] Comment on above: Performed By: #### B NILSA, TSH #### [facility] [address] [place] [address] Dr. David Cannon CK.MB [Mass/Vol] ng/mL Normal <=3.60 [facility] Comment on above: Result Comment: Prev iously reported as: 0.30 On 02/23/2022 20:39 By JAW Performed By: #### B MP, TSH #### [facility] [address] [place] [address] Dr. David Cannon HSTROP 6.1 pg/mL Normal 4.0-51.3 [facility] Comment on above: Result Comment: CUT- OFF POINTS HAVE BEEN ESTABLISHED BASED ON THE FOURTH UNIVERSAL DEFINITIONS OF MYOCARDIAL INFARCTION. THE UPPER REFERENCE LIMIT (URL) OF TROPONIN, DEFINED THE 99TH PERCENTILE OF cTnI DISTRIBUTION IN A REFERENCE POPULATION, HAS BEEN CONFIRMED THE DECISION THRESHOLD FOR PA DIAGNOSIS. Performed By: #### B MP, TSH #### [facility] [address] [address] [address] David Cannon CK [Catalytic activity/Vol] 45 U/L Normal 26-192 [facility] Comment on above: Performed By: #### C MREP ####[facility] [address] [place], [place] [address]YuDr. David Cannon CK.MB [Mass/Vol] ng/mL Normal <=3.60 [facility] Comment on above: Performed By: #### C MREP ####[facility] [address] [id number]. David Cannon HSTROP 5.7 pg/mL Normal 4.0-51.3 [facility] Comment on above: Result Comment: CUT- OFF POINTS HAVE BEEN ESTABLISHED BASED ON THE FOURTH UNIVERSAL DEFINITIONS OF MYOCARDIAL INFARCTION. THE UPPER REFERENCE LIMIT (URL) OF TROPONIN, DEFINED THE 99TH PERCENTILE OF cTnI DISTRIBUTION IN A REFERENCE POPULATION, HAS BEEN CONFIRMED THE DECISION THRESHOLD FOR PA DIAGNOSIS. Performed By: #### C MREP ####[facility] [address] [id number]. David Cannon CBC AUTO DIFFon 02-23-2022 BASO # 0.0 103/ul Normal 0.0-0.1 [facility] Comment on above: Performed By: #### B MP, TSH #### [facility] [address] [address] [address] David Cannon Basophils/100 WBC (Bld) 0.7 % Normal 0.2-2.0 [facility] Comment on above: Performed By: #### B MP, TSH #### [facility] [address] [address] [address] David Cannon EO # 0.1 103/ul Normal 0.0-0.7 [facility] Comment on above: Performed By: #### B MP, TSH #### [facility] [address] [address] [address] David Cannon Eosinophils/100 WBC (Bld) 1.1 % Normal 0.9-7.0 [facility] Comment on above: Performed By: #### B MP, TSH #### [facility] [address] [place] [address] Dr. David Cannon Erythrocyte distribution width (RBC) [Ratio] 12.2 % Normal 11.0-15.0 [facility] Comment on above: Performed By: #### B MP, TSH #### [facility] [address] [place] [address] Dr. David Cannon Hematocrit (Bld) [Volume fraction] 43.4 % Normal 36.0-48.0 [facility] Comment on above: Performed By: #### B MP, TSH #### [facility] [address] [place] [address] Dr. David Cannon Hemoglobin (Bld) [Mass/Vol] 14.4 g/dL Normal 12.0-16.0 [facility] Comment on above: Performed By: #### B NILSA, TSH #### [facility] [address] [place] [address] Dr. David Cannon IG # 0.01 10e3/ul Normal 0.00-0.03 [facility] Comment on above: Performed By: #### B NILSA, TSH #### [facility] [address] [place] [address] Dr. David Cannon IG % 0.2 % Normal 0.0-0.5 [facility] Comment on above: Performed By: #### B NILSA, TSH #### [facility] [address] [place] [address] Dr. David Cannon LYMPH # 1.5 103/ul Normal 1.2-3.8 [facility] Comment on above: Performed By: #### B MP, TSH #### [facility] [address] [place] [address] Dr. David Cannon Lymphocytes/100 WBC (Bld) 32.7 % Normal 20.5-60.0 [facility] Comment on above: Performed By: #### B MP, TSH #### [facility] [address] [place] [address] Dr. David Cannon MANUAL DIFF REQ NO Normal [facility] Comment on above: Performed By: #### B MP, TSH #### [facility] [address] [place] [address] Dr. David Cannon MCH (RBC) [Entitic mass] 31.4 pg Normal 26.7-34.0 [facility] Comment on above: Performed By: #### B MP, TSH #### [facility] [address] [place] [address] Dr. David Cannon MCHC (RBC) [Mass/Vol] 33.2 g/dL Normal 29.9-35.2 [facility] Comment on above: Performed By: #### B MP, TSH #### [facility] [address] [place] [address] Dr. David Cannon MCV (RBC) [Entitic vol] 94.8 fL Normal 81.0-99.0 [facility] Comment on above: Performed By: #### B MP, TSH #### [facility] [address] [place] [address] Dr. David Cannon MONO # 0.3 103/ul Normal 0.3-0.8 [facility] Comment on above: Performed By: #### B MP, TSH #### [facility] [address] [place] [address] Dr. David Cannon Monocytes/100 WBC (Bld) 5.9 % Normal 1.7-12.0 [facility] Comment on above: Performed By: #### B MP, TSH #### [facility] [address] [place] [address] Dr. David Cannon NEUT # 2.6 103/ul Normal 1.4-6.5 [facility] Comment on above: Performed By: #### B MP, TSH #### [facility] [address] [place] [address] Dr. David Cannon Neutrophils/100 WBC (Bld) 59.4 % Normal 43.0-75.0 [facility] Comment on above: Performed By: #### B MP, TSH #### [facility] [address] [place] [address] Dr. David Cannon Platelet mean volume (Bld) [Entitic vol] 8.6 fL Critically low 9.5-13.5 [facility] Comment on above: Performed By: #### B MP, TSH #### [facility] [address] [place] [address] Dr. David Cannon PLT 200 103/ul Normal 150-450 [facility] Comment on above: Performed By: #### B MP, TSH #### [facility] [address] [address] [address] David Cannon RBC 4.58 106/ul Normal 4.20-5.40 [facility] Comment on above: Performed By: #### B MP, TSH #### [facility] [address] [place] [address] Dr. David Cannon WBC 4.4 103/ul Normal 4.0-11.0 [facility] Comment on above: Performed By: #### B MP, TSH #### [facility] [address] [place] [address] Dr. David Cannon Covid-19 PCR (CVDTB)on 02-09 SARS-CoV-2 (COVID-19) RNA JOSH+probe Ql (Unsp spec) Not detected Normal NOT DETECTED [facility] Comment on above: Result Comment: When diagnostic [...] for this test is supported by the [place] [employer] and [employer]'s declaration that [...] be used). Performed By: #### C VDTBH ####[facility] [address] [place], [place] [address]DtDr. David Cannon LIPASEon 02-23-2022 Lipase [Catalytic activity/Vol] 85.0 U/L Normal 73.0-393.0 [facility] Comment on above: Performed By: #### A NARF #### [facility] [address] [place] [address] Dr. David Cannon PROF 14(COMP METB)on Albumin [Mass/Vol] 4.2 g/dL Normal 3.4-5.0 [facility] Comment on above: Performed By: #### A NARF #### [facility] [address] [place] [address] Dr. David Cannon Albumin/Globulin [Mass ratio] 1.2 {ratio} Normal [facility] Comment on above: Performed By: #### A NARF #### [facility] [address] [place] [address] Dr. David Cannon ALP [Catalytic activity/Vol] 67 U/L Normal 46-116 [facility] Comment on above: Performed By: #### A NARF #### [facility] [address] [place] [address] Dr. David Cannon ALT [Catalytic activity/Vol] 19 U/L Normal 14-59 [facility] Comment on above: Performed By: #### A NARF #### [facility] [address] [place] [address] Dr. David Cannon Anion gap [Moles/Vol] 15.1 mmol/L Normal [facility] Comment on above: Performed By: #### A NARF #### [facility] [address] [place] [address] Dr. David Cannon AST [Catalytic activity/Vol] 18 U/L Normal 15-37 [facility] Comment on above: Performed By: #### A NARF #### [facility] [address] [place] [address] Dr. David Cannon Bilirubin [Mass/Vol] 0.3 mg/dL Normal 0.2-1.0 [facility] Comment on above: Performed By: #### A NARF #### [facility] [address] [address] [address] David Cannon Calcium [Mass/Vol] 9.7 mg/dL Normal 8.5-10.1 [facility] Comment on above: Performed By: #### A NARF #### [facility] [address] [address] [address] David Cannon Chloride [Moles/Vol] 103 mmol/L Normal 98-107 [facility] Comment on above: Performed By: #### A NARF #### [facility] [address] [address] [address] David Cannon CO2 [Moles/Vol] 29.0 mmol/L Normal 21.0-32.0 [facility] Comment on above: Performed By: #### A NARF #### [facility] [address] [address] [address] David Cannon Creatinine [Mass/Vol] 0.67 mg/dL Normal 0.55-1.02 [facility] Comment on above: Performed By: #### A NARF #### [facility] [address] [address] [address] David Cannon EGFR-AF NEW ZEALANDER >60 Normal >=60 [facility] Comment on above: Performed By: #### A NARF #### [facility] [address] [address] [address] David Cannon EGFR-NON AF NEW ZEALANDER >60 Normal >=60 [facility] Comment on above: Performed By: #### A NARF #### [facility] [address] [address] [address] David Cannon Globulin (S) [Mass/Vol] 3.6 g/dL Normal [facility] Comment on above: Performed By: #### A NARF #### [facility] [address] [address] [address] David Cannon Glucose [Mass/Vol] 130 mg/dL Critically high 74-106 [facility] Comment on above: Performed By: #### A NARF #### [facility] [address] [address] [address] David Cannon Potassium [Moles/Vol] 4.1 mmol/L Normal 3.5-5.1 [facility] Comment on above: Performed By: #### A NARF #### [facility] [address] [address] [address] David Cannon Protein [Mass/Vol] 7.8 g/dL Normal 6.4-8.2 [facility] Comment on above: Performed By: #### A NARF #### [facility] [address] [address] [address] David Cannon Sodium [Moles/Vol] 143 mmol/L Normal 136-145 [facility] Comment on above: Performed By: #### A NARF #### [facility] [address] [place] [address] Dr. David Cannon Urea nitrogen [Mass/Vol] 11.0 mg/dL Normal 7.0-18.0 [facility] Comment on above: Performed By: #### A NARF #### [facility] [address] [address] [address] David Cannon Urea nitrogen/Creatinine [Mass ratio] 16.4 mg/mg Normal [facility] Comment on above: Performed By: #### A NARF #### [facility] [address] [place] [address] Dr. David Cannon PROTIMEon 02-23-2022 INR Coag (PPP) [Relative time] {INR} Normal [facility] Comment on above: Performed By: #### B MP, TSH #### [facility] [address] [place] [address] Dr. David Cannon INR GUIDELINES SEE BELOW Normal [facility] Comment on above: Result Comment: SURY RED INR: 2.0 - 3.0 CONDITIONS NOT LISTED BELOW 2.5 - 3.5 FOR PROSTHETIC HEART VALVE REPLACEMENT 2.5 - 3.5 RECURRENT THROMBOSIS Performed By: #### B MP, TSH #### [facility] [address] [place] [address] Dr. David Cannon PT Coag (PPP) [Time] 10.0 s Normal 9.0-11.6 [facility] Comment on above: Performed By: #### B MP, TSH #### [facility] [address] [place] [address] Dr. David Cannon PTTon 02-23-2022 aPTT Coag (Bld) [Time] 25.4 s Normal 22.3-36.2 [facility] Comment on above: Performed By: #### B MP, TSH #### [facility] [address] [place] [address] Dr. David Cannon TROPONIN, HIGH SENSITIVITYon 02-23-2022 HSTROP 6.0 pg/mL Normal 4.0-51.3 [facility] Comment on above: Result Comment: CUT- OFF POINTS HAVE BEEN ESTABLISHED BASED ON THE FOURTH UNIVERSAL DEFINITIONS OF MYOCARDIAL INFARCTION. THE UPPER REFERENCE LIMIT (URL) OF TROPONIN, DEFINED THE 99TH PERCENTILE OF cTnI DISTRIBUTION IN A REFERENCE POPULATION, HAS BEEN CONFIRMED THE DECISION THRESHOLD FOR PA DIAGNOSIS. Performed By: #### A NARF #### [facility] [address] [place] [address] Dr. David Cannon XR CHEST 1 Von 02-23-2022 XR CHEST 1 V EXAM: XR CHEST 1 V a t 1542 hours HISTORY: CHEST PAIN, UNSPECIFIED intermittent [...] by: LONI SALAS Date: 2022-02-23 16:[address] [facility] [address] ABD/PELV W CONon 01-08-20 CT [...] degenerative changes of the spine. Status post vertebroplasty/kyphopl asty changes of L2. Stable compression deformity of [...] CHAIM MEZA Date: 2022-01-06 22:12 Normal [facility] AMYLASEon 01-06-2022 Amylase [Catalytic activity/Vol] 34 U/L Normal 25-115 [facility] Comment on above: Performed By: #### C ELAINE ASH ####[facility] [address] [address]Dr. David Cannon CBC AUTO DIFFon 01-06-2022 BASO # 0.0 103/ul Normal 0.0-0.1 [facility] Comment on above: Performed By: #### A NARF #### [facility] [address] [address] [address] David Cannon Basophils/100 WBC (Bld) 0.5 % Normal 0.2-2.0 [facility] Comment on above: Performed By: #### A NARF #### [facility] [address] [address] [address] David Cannon EO # 0.1 103/ul Normal 0.0-0.7 [facility] Comment on above: Performed By: #### A NARF #### [facility] [address] [place] [address] Dr. David Cannon Eosinophils/100 WBC (Bld) 1.4 % Normal 0.9-7.0 [facility] Comment on above: Performed By: #### A NARF #### [facility] [address] [place] [address] Dr. David Cannon Erythrocyte distribution width (RBC) [Ratio] 12.0 % Normal 11.0-15.0 [facility] Comment on above: Performed By: #### A NARF #### [facility] [address] [place] [address] Dr. David Cannon Hematocrit (Bld) [Volume fraction] 44.6 % Normal 36.0-48.0 [facility] Comment on above: Performed By: #### A NARF #### [facility] [address] [place] [address] Dr. David Cannon Hemoglobin (Bld) [Mass/Vol] 14.5 g/dL Normal 12.0-16.0 [facility] Comment on above: Performed By: #### A NARF #### [facility] [address] [place] [address] Dr. David Cannon IG # 0.01 10e3/ul Normal 0.00-0.03 [facility] Comment on above: Performed By: #### A NARF #### [facility] [address] [place] [address] Dr. David Cannon IG % 0.2 % Normal 0.0-0.5 [facility] Comment on above: Performed By: #### A NARF #### [facility] [address] [place] [address] Dr. David Cannon LYMPH # 2.5 103/ul Normal 1.2-3.8 [facility] Comment on above: Performed By: #### A NARF #### [facility] [address] [place] [address] Dr. David Cannon Lymphocytes/100 WBC (Bld) 42.6 % Normal 20.5-60.0 [facility] Comment on above: Performed By: #### A NARF #### [facility] [address] [place] [address] Dr. David Cannon MANUAL DIFF REQ NO Normal [facility] Comment on above: Performed By: #### A NARF #### [facility] [address] [place] [address] Dr. David Cannon MCH (RBC) [Entitic mass] 31.6 pg Normal 26.7-34.0 [facility] Comment on above: Performed By: #### A NARF #### [facility] [address] [place] [address] Dr. David Cannon MCHC (RBC) [Mass/Vol] 32.5 g/dL Normal 29.9-35.2 [facility] Comment on above: Performed By: #### A NARF #### [facility] [address] [place] [address] Dr. David Cannon MCV (RBC) [Entitic vol] 97.2 fL Normal 81.0-99.0 [facility] Comment on above: Performed By: #### A NARF #### [facility] [address] [place] [address] Dr. David Cannon MONO # 0.4 103/ul Normal 0.3-0.8 [facility] Comment on above: Performed By: #### A NARF #### [facility] [address] [place] [address] Dr. David Cannon Monocytes/100 WBC (Bld) 5.9 % Normal 1.7-12.0 [facility] Comment on above: Performed By: #### A NARF #### [facility] [address] [place] [address] Dr. David Cannon NEUT # 2.9 103/ul Normal 1.4-6.5 [facility] Comment on above: Performed By: #### A NARF #### [facility] [address] [place] [address] Dr. David Cannon Neutrophils/100 WBC (Bld) 49.4 % Normal 43.0-75.0 [facility] Comment on above: Performed By: #### A NARF #### [facility] [address] [address] [address] David Cannon Platelet mean volume (Bld) [Entitic vol] 9.1 fL Critically low 9.5-13.5 [facility] Comment on above: Performed By: #### A NARF #### [facility] [address] [address] [address] David Cannon PLT 257 103/ul Normal 150-450 [facility] Comment on above: Performed By: #### A NARF #### [facility] [address] [address] [address] David Cannon RBC 4.59 106/ul Normal 4.20-5.40 [facility] Comment on above: Performed By: #### A NARF #### [facility] [address] [address] [address] David Cannon WBC 5.9 103/ul Normal 4.0-11.0 [facility] Comment on above: Performed By: #### A NARF #### [facility] [id number] David Cannon D-DIMERon 01-06-2022 D-DIMER 0.67 mg/L FEU Critically high <=0.59 [facility] Comment on above: Performed By: #### D DIM ####[facility] [address] [address]Dr. David Cannon D-DIMER COMMENTS SEE BELOW Normal [facility] Comment on above: Result Comment: [...] generalized hospitalization. Performed By: #### D DIM ####[facility] [address] [address]Dr. David Cannon PROF 14(COMP METB)on 022 Albumin [Mass/Vol] 4.0 g/dL Normal 3.4-5.0 [facility] Comment on above: Performed By: #### C NILSA, ELAINE ####[facility] [address] [place], [place] [address]Dr. David Cannon Albumin/Globulin [Mass ratio] 1.2 {ratio} Normal [facility] Comment on above: Performed By: #### C NILSA, ELAINE ####[facility] [address] [place], [place] [address]Dr. David Cannon ALP [Catalytic activity/Vol] 78 U/L Normal 46-116 [facility] Comment on above: Performed By: #### C NILSA, ELAINE ####[facility] [address] [place], [place] [address]Dr. David Cannon ALT [Catalytic activity/Vol] 23 U/L Normal 14-59 [facility] Comment on above: Performed By: #### C NILSA, ELAINE ####[facility] [address] [place], [place] [address]Dr. David Cannon Anion gap [Moles/Vol] 10.8 mmol/L Normal [facility] Comment on above: Performed By: #### C NILSA, ELAINE ####[facility] [address] [place], [place] [address]Dr. David Cannon AST [Catalytic activity/Vol] 28 U/L Normal 15-37 [facility] Comment on above: Performed By: #### C NILSA, ELAINE ####[facility] [address] [place], [place] [address]Dr. David Cannon Bilirubin [Mass/Vol] 0.3 mg/dL Normal 0.2-1.0 [facility] Comment on above: Performed By: #### C NILSA, ELAINE ####[facility] [address] [place], [place] [address]Dr. David Cannon Calcium [Mass/Vol] 9.1 mg/dL Normal 8.5-10.1 [facility] Comment on above: Performed By: #### C MP, ELAINE ####[facility] [address] [address]Dr. David Cannon Chloride [Moles/Vol] 102 mmol/L Normal 98-107 [facility] Comment on above: Performed By: #### C MP, ELAINE ####[facility] [address] [address]Dr. David Cannon CO2 [Moles/Vol] 30.3 mmol/L Normal 21.0-32.0 [facility] Comment on above: Performed By: #### C MP, ELAINE ####[facility] [address] [place], [place] [address]Dr. David Cannon Creatinine [Mass/Vol] 0.46 mg/dL Critically low 0.55-1.02 [facility] Comment on above: Performed By: #### C NILSA, ELAINE ####[facility] [address] [place], [place] [address]Dr. David Cannon EGFR-AF NEW ZEALANDER >60 Normal >=60 [facility] Comment on above: Performed By: #### C NILSA, ELAINE ####[facility] [address] [place], [place] [address]Dr. David Cannon EGFR-NON AF NEW ZEALANDER >60 Normal >=60 [facility] Comment on above: Performed By: #### C NILSA, ELAINE ####[facility] [address] [place], [place] [address]Dr. David Cannon Globulin (S) [Mass/Vol] 3.4 g/dL Normal [facility] Comment on above: Performed By: #### C MP, ELIANE ####[facility] [address] [place], [place] [address]Dr. David Cannon Glucose [Mass/Vol] 111 mg/dL Critically high 74-106 [facility] Comment on above: Performed By: #### C MP, ELAINE ####[facility] [address] [place], [place] [address]Dr. David Cannon Potassium [Moles/Vol] 4.1 mmol/L Normal 3.5-5.1 [facility] Comment on above: Performed By: #### C MP, ELAINE ####[facility] [address] [place], [place] [address]Dr. David Cannon Protein [Mass/Vol] 7.4 g/dL Normal 6.4-8.2 [facility] Comment on above: Performed By: #### C MP, ELAINE ####[facility] [address] [place], [place] [address]Dr. David Cannon Sodium [Moles/Vol] 139 mmol/L Normal 136-145 [facility] Comment on above: Performed By: #### C MP, ELAINE ####[facility] [address] [place], [place] [address]Dr. David Cannon Urea nitrogen [Mass/Vol] 14.0 mg/dL Normal 7.0-18.0 [facility] Comment on above: Performed By: #### C NILSA, ELAINE ####[facility] [address] [place], [place] [address]Dr. David Cannon Urea nitrogen/Creatinine [Mass ratio] 30.4 mg/mg Normal [facility] Comment on above: Performed By: #### C MP, ELAINE ####[facility] [address] [place], [place] [address]Dr. David Cannon CBC AUTO DIFFon 11-28-2021 BASO # 0.0 103/ul Normal 0.0-0.1 [facility] Comment on above: Performed By: #### C BC ####[facility] [address] [place], [place] [address]Dr. David Cannon Basophils/100 WBC (Bld) 0.8 % Normal 0.2-2.0 [facility] Comment on above: Performed By: #### C BC ####[facility] [address] [place], [place] [address]Dr. David Cannon EO # 0.1 103/ul Normal 0.0-0.7 [facility] Comment on above: Performed By: #### C BC ####[facility] [address] [place], [place] [address]Dr. David Cannon Eosinophils/100 WBC (Bld) 3.0 % Normal 0.9-7.0 [facility] Comment on above: Performed By: #### C BC ####[facility] [address] [address]Dr. David Cannon Erythrocyte distribution width (RBC) [Ratio] 11.9 % Normal 11.0-15.0 [facility] Comment on above: Performed By: #### C BC ####[facility] P[address]em[address] [place], [place] [address]Dr. David Cannon Hematocrit (Bld) [Volume fraction] 42.4 % Normal 36.0-48.0 [facility] Comment on above: Performed By: #### C BC ####[facility] Aebtci[address]un[address] [place], [place] [address]Dr. David Cannon Hemoglobin (Bld) [Mass/Vol] 13.3 g/dL Normal 12.0-16.0 [facility] Comment on above: Performed By: #### C BC ####[facility] Fouuzaasgz[address] [place], [place] [address]Dr. David Cannon IG # 0.01 10e3/ul Normal 0.00-0.03 [facility] Comment on above: Performed By: #### C BC ####[facility] Tfyyccdisb[address] [place], [place] [address]Dr. David Cannon IG % 0.3 % Normal 0.0-0.5 [facility] Comment on above: Performed By: #### C BC ####[facility] Wanxmzhcfl[address] [place], [place] [address]Dr. David Cannon LYMPH # 1.6 103/ul Normal 1.2-3.8 [facility] Comment on above: Performed By: #### C BC ####[facility] Teudzknfxk[address] [place], [place] [address]Dr. David Cannon Lymphocytes/100 WBC (Bld) 39.6 % Normal 20.5-60.0 [facility] Comment on above: Performed By: #### C BC ####[facility] Uogzhmdzzw[address] [place], [place] [address]Dr. Janellbraeden Cannon MANUAL DIFF REQ NO Normal [facility] Comment on above: Performed By: #### C BC ####[facility] [address] [place] [address]Dr. David Davis MCH (RBC) [Entitic mass] 31.6 pg Normal 26.7-34.0 [facility] Comment on above: Performed By: #### C BC ####[facility] Dpvqpqvouv[address] [place], [place] [address]Dr. David Davis MCHC (RBC) [Mass/Vol] 31.4 g/dL Normal 29.9-35.2 [facility] Comment on above: Performed By: #### C BC ####[facility] Olofcbkski[address] [place], [place] [address]Dr. Janellbraeden Cannon MCV (RBC) [Entitic vol] 100.7 fL Critically high 81.0-99.0 [facility] Comment on above: Performed By: #### C BC ####[facility] Ssow[address]zexpy[address] [place], [place] [address]Dr. David Davis MONO # 0.4 103/ul Normal 0.3-0.8 [facility] Comment on above: Performed By: #### C BC ####[facility] Slhmfdbxor[address] [place], [place] [address]Dr. David Cannon Monocytes/100 WBC (Bld) 11.2 % Normal 1.7-12.0 [facility] Comment on above: Performed By: #### C BC ####[facility] Azbcjyyplz[address] [place], [place] [address]Dr. David Cannon NEUT # 1.8 103/ul Normal 1.4-6.5 [facility] Comment on above: Performed By: #### C BC ####[facility] Uwgdnchxyp[address] [place], [place] [address]Dr. David Cannon Neutrophils/100 WBC (Bld) 45.1 % Normal 43.0-75.0 [facility] Comment on above: Performed By: #### C BC ####[facility] Xqcqyjbslh[address] [place], [place] [address]Dr. David Cannon Platelet mean volume (Bld) [Entitic vol] 9.1 fL Critically low 9.5-13.5 [facility] Comment on above: Performed By: #### C BC ####[facility] [address] [place] [address]Dr. David Davis PLT 177 103/ul Normal 150-450 [facility] Comment on above: Performed By: #### C BC ####[facility] [address]xy[address] [place] [address]Dr. David Davis RBC 4.21 106/ul Normal 4.20-5.40 [facility] Comment on above: Performed By: #### C BC ####[facility] [address]is[address] [place] [address]Dr. David Davis WBC 3.9 103/ul Critically low 4.0-11.[address] [facility] Comment on above: Performed By: #### C BC ####[facility] [address]xxqv[address] [place] [address]DrGerry Cannon CRPon 11-28-2021 CRP [Mass/Vol] mg/L Normal <=1.[address] [facility] Comment on above: Performed By: #### A NARF #### [facility] [address] [address] [address] David Cannon XR LSPINE 2_3 VIEWSon 2021 XR LSPINE 2_3 VIEWS EXAMINATION: XR LSPI NE 2_3 VIEWS, XR SACRUM_COCCYX HISTORY: History of fall COMPARISON: 10/16/2021 CT exam FINDINGS: BONES: Rotatory levocurvature centered at L3. Kyphoplasty at L2. 40% anterior superior wedge compression fracture of T12. Left superior wedge compression fracture of L5. Minimal degenerative spondylosis. Rtnv-uv-zljhkmig facet osteoarthropathy. DISC SPACES: Multilevel disc space narrowing PARASPINOUS: Negative. No paraspinous abnormality is seen. OTHER: Negative. IMPRESSION: Grossly stable from CT exam performed 4 days ago Electronically authenticated by: JANNA LAWTON Date: 2021-10-20 12:06 Normal [facility] CULTURE URINEon 10-18-2021 CULTURE URINE Isolate 1 Escherichia coli >100,000 cfu/mL of ORGANISM 1 Escherichia coli ANTIBIOTIC M.I.C RX STATUS Ampicillin 4 S F Ampicillin/Sulbactam <=2 S F Piperacillin/Tazobacta m <=4 S F Cefazolin <=4 S F Ceftazidime <=1 S F Ceftriaxone <=1 S F Ertapenem <=0.5 S F Imipenem <=0.25 S F Amikacin <=2 S F Gentamicin <=1 S F Tobramycin <=1 S F Ciprofloxacin <=0.25 S F Levofloxacin <=0.12 S F Nitrofurantoin <=16 S F Trimethoprim/Sulfameth oxazole <=20 S F Normal [facility] Comment on above: Performed By: #### U RCX ####[facility] Cssymdmfcm[address] [place], [place] [address]Dr. David Cannon AMYLASEon 10-16-2021 Amylase [Catalytic activity/Vol] 35 U/L Normal 25-115 [facility] Comment on above: Performed By: #### B MP, TSH #### [facility] [address] [place] [address] Dr. David Cannon CBC AUTO DIFFon 10-16-2021 BASO # 0.0 103/ul Normal 0.0-0.1 [facility] Comment on above: Performed By: #### C BC ####[facility] [address] [place] [address]Dr. David Cannon Basophils/100 WBC (Bld) 0.7 % Normal 0.2-2.0 [facility] Comment on above: Performed By: #### C BC ####[facility] Fqrlhxwkzp[address] [place], [place] [address]Dr. David Cannon EO # 0.1 103/ul Normal 0.0-0.7 [facility] Comment on above: Performed By: #### C BC ####[facility] [address]km[address] [place] [address]DrGerry Cannon Eosinophils/100 WBC (Bld) 1.0 % Normal 0.9-7.0 [facility] Comment on above: Performed By: #### C BC ####[facility] [address]ds[address] [place] [address]Dr. David Cannon Erythrocyte distribution width (RBC) [Ratio] 11.7 % Normal 11.0-15.0 [facility] Comment on above: Performed By: #### C BC ####[facility] [address] [place] [address]Dr. David Cannon Hematocrit (Bld) [Volume fraction] 46.9 % Normal 36.0-48.0 [facility] Comment on above: Performed By: #### C BC ####[facility] Grrwmynlmz[address] [place], [place] [address]Dr. David Cannon Hemoglobin (Bld) [Mass/Vol] 15.2 g/dL Normal 12.0-16.0 [facility] Comment on above: Performed By: #### C BC ####[facility] Zhfdhpyzbf[address] [place], [place] [address]Dr. David Cannon IG # 0.01 10e3/ul Normal 0.00-0.03 [facility] Comment on above: Performed By: #### C BC ####[facility] Kuqyscxiko[address] [place], [place] [address]Dr. David Cannon IG % 0.2 % Normal 0.0-0.5 [facility] Comment on above: Performed By: #### C BC ####[facility] [address]zqgfbq[address] [place], [place] [address]Dr. David Cannon LYMPH # 1.7 103/ul Normal 1.2-3.8 [facility] Comment on above: Performed By: #### C BC ####[facility] Vygousydal[address] [place], [place] [address]Dr. David Cannon Lymphocytes/100 WBC (Bld) 29.0 % Normal 20.5-60.0 [facility] Comment on above: Performed By: #### C BC ####[facility] Eayvnhyniz[address] [place], [place] [address]Dr. David Cannon MANUAL DIFF REQ NO Normal [facility] Comment on above: Performed By: #### C BC ####[facility] [address]we[address] [place] [address]Dr. David Cannon MCH (RBC) [Entitic mass] 32.0 pg Normal 26.7-34.0 [facility] Comment on above: Performed By: #### C BC ####[facility] [address] [place] [address]Dr. David Cannon MCHC (RBC) [Mass/Vol] 32.4 g/dL Normal 29.9-35.2 [facility] Comment on above: Performed By: #### C BC ####[facility] Oxyhhsrtcu[address] [place], [place] [address]Dr. David Cannon MCV (RBC) [Entitic vol] 98.7 fL Normal 81.0-99.0 [facility] Comment on above: Performed By: #### C BC ####[facility] Ssxxdvfgoq6[address] [place], [place] [address]Dr. David Davis MONO # 0.4 103/ul Normal 0.3-0.8 [facility] Comment on above: Performed By: #### C BC ####[facility] Xcerwnwdxv[address] [place], [place] [address]Dr. David Davis Monocytes/100 WBC (Bld) 6.6 % Normal 1.7-12.0 [facility] Comment on above: Performed By: #### C BC ####[facility] Qqtumtcxie[address] [place], [place] [address]Dr. David Cannon NEUT # 3.7 103/ul Normal 1.4-6.5 [facility] Comment on above: Performed By: #### C BC ####[facility] Kkaghfjjqf[address] [place], [place] [address]Dr. David Davis Neutrophils/100 WBC (Bld) 62.5 % Normal 43.0-75.0 [facility] Comment on above: Performed By: #### C BC ####[facility] Ziidcxmovy[address] [place], [place] [address]Dr. David Cannon Platelet mean volume (Bld) [Entitic vol] 9.5 fL Normal 9.5-13.5 [facility] Comment on above: Performed By: #### C BC ####[facility] [address] [place], [place] [address]Lb. David Cannon PLT 216 103/ul Normal 150-450 [facility] Comment on above: Performed By: #### C BC ####[facility] [address] [place], [place] [address]Pp. David Cannon RBC 4.75 106/ul Normal 4.20-5.40 [facility] Comment on above: Performed By: #### C BC ####[facility] [address] [place], [place] [address]Uf. David Cannon WBC 5.9 103/ul Normal 4.0-11.0 [facility] Comment on above: Performed By: #### C BC ####[facility] [address] [place], [place] [address]Ue. [address] CT ABD/PELV W CONon 10-17-19 [...] JANNA DHALIWAL Date: 2021-10-16 15:43 Normal [facility] ER URINE PROFILEon 2 Bilirubin Ql (U) Negative Normal NEGATIVE [facility] Comment on above: Performed By: #### U MICRO, ERUR #### [facility] [address] [place] [address] Dr. David Cannon Clarity (U) SL CLOUDY Abnormal CLEAR [facility] Comment on above: Performed By: #### U MICRO, ERUR #### [facility] [address] [place] [address] Dr. David Cannon Color (U) YELLOW Normal YELLOW [facility] Comment on above: Performed By: #### U MICRO, ERUR #### [facility] [address] [place] [address] Dr. David Cannon ERUAHD A micrscopic examination will be performed if indicated. Normal [facility] Comment on above: Performed By: #### U MICRO, ERUR #### [facility] [address] [address] [address] David Cannon Glucose Ql (U) Negative Normal NEGATIVE [facility] Comment on above: Performed By: #### U MICRO, ERUR #### [facility] [address] [place] [address] Dr. David Cannon Hemoglobin Ql (U) Negative Normal NEGATIVE [facility] Comment on above: Performed By: #### U MICRO, ERUR #### [facility] [address] [place] [address] Dr. aDvid Cannon Ketones Ql (U) TRACE Abnormal NEGATIVE [facility] Comment on above: Performed By: #### U MICRO, ERUR #### [facility] [address] [place] [address] Dr. David Cannon LEUKOCYTES SMALL Abnormal NEGATIVE [facility] Comment on above: Performed By: #### U MICRO, ERUR #### [facility] [address] [address] [address] David Cannon Nitrite Ql (U) Positive Abnormal NEGATIVE [facility] Comment on above: Performed By: #### U MICRO, ERUR #### [facility] [address] [address] [address] David Cannon pH (U) 5.5 [pH] Normal 5-9 [facility] Comment on above: Performed By: #### U MICRO, ERUR #### [facility] [address] [place] [address] Dr. David Cannon SPEC GRAVITY >=1.030 Abnormal 1.005-<=1.[address] [place] [address] Comment on above: Performed By: #### U MICRO, ERUR #### [facility] [address] [place] [address] Dr. David Cannon UA PROTEIN Negative Normal NEGATIVE/ TRACE [facility] Comment on above: Performed By: #### U MICRO, ERUR #### [facility] [address] [place] [address] Dr. David Cannon UR MICRO IND INDICATED Normal [facility] Comment on above: Performed By: #### U MICRO, ERUR #### [facility] [address] [place] [address] Dr. David Cannon Urobilinogen Qn (U) 0.2 {Skip'U}/dL Normal 0.2 - 1. 0 [facility] Comment on above: Performed By: #### U MICRO, ERUR #### [facility] [address] [place] [address] Dr. David Cannon LIPASEon 10-16-2021 Lipase [Catalytic activity/Vol] 93.0 U/L Normal 73.0-393.0 [facility] Comment on above: Performed By: #### B MP, TSH #### [facility] [address] [address] [address] David Cannon PROF 14(COMP METB)on 022 Albumin [Mass/Vol] 4.1 g/dL Normal 3.4-5.0 [facility] Comment on above: Performed By: #### B MP, TSH #### [facility] [address] [place] [address] Dr. David Cannon Albumin/Globulin [Mass ratio] 1.1 {ratio} Normal [facility] Comment on above: Performed By: #### B MP, TSH #### [facility] [address] [place] [address] Dr. David Cannon ALP [Catalytic activity/Vol] 88 U/L Normal 46-116 [facility] Comment on above: Performed By: #### B NILSA, TSH #### [facility] [address] [place] [address] Dr. David Cannon ALT [Catalytic activity/Vol] 17 U/L Normal 14-59 [facility] Comment on above: Performed By: #### B NILSA, TSH #### [facility] [address] [place] [address] Dr. David Cannon Anion gap [Moles/Vol] 12.4 mmol/L Normal [facility] Comment on above: Performed By: #### B NILSA, TSH #### [facility] [address] [place] [address] Dr. David Cannon AST [Catalytic activity/Vol] 15 U/L Normal 15-37 [facility] Comment on above: Performed By: #### B MP, TSH #### [facility] [address] [place] [address] Dr. David Cannon Bilirubin [Mass/Vol] 0.2 mg/dL Normal 0.2-1.0 [facility] Comment on above: Performed By: #### B MP, TSH #### [facility] [address] [place] [address] Dr. David Cannon Calcium [Mass/Vol] 9.8 mg/dL Normal 8.5-10.1 [facility] Comment on above: Performed By: #### B MP, TSH #### [facility] [address] [place] [address] Dr. David Cannon Chloride [Moles/Vol] 103 mmol/L Normal 98-107 [facility] Comment on above: Performed By: #### B MP, TSH #### [facility] [address] [place] [address] Dr. David Cannon CO2 [Moles/Vol] 30.6 mmol/L Normal 21.0-32.0 [facility] Comment on above: Performed By: #### B MP, TSH #### [facility] [address] [place] [address] Dr. David Cannon Creatinine [Mass/Vol] 0.85 mg/dL Normal 0.55-1.02 [facility] Comment on above: Performed By: #### B MP, TSH #### [facility] [address] [place] [address] Dr. David Cannon EGFR-AF NEW ZEALANDER >60 Normal >=60 [facility] Comment on above: Performed By: #### B MP, TSH #### [facility] [address] [place] [address] Dr. David Cannon EGFR-NON AF NEW ZEALANDER >60 Normal >=60 [facility] Comment on above: Performed By: #### B MP, TSH #### [facility] [address] [place] [address] Dr. David Cannon Globulin (S) [Mass/Vol] 3.8 g/dL Normal [facility] Comment on above: Performed By: #### B MP, TSH #### [facility] [address] [place] [address] Dr. David Cannon Glucose [Mass/Vol] 119 mg/dL Critically high 74-106 [facility] Comment on above: Performed By: #### B MP, TSH #### [facility] [address] [place] [address] Dr. David Cannon Potassium [Moles/Vol] 4.0 mmol/L Normal 3.5-5.1 [facility] Comment on above: Performed By: #### B MP, TSH #### [facility] [address] [address] [address] David Cannon Protein [Mass/Vol] 7.9 g/dL Normal 6.4-8.2 [facility] Comment on above: Performed By: #### B MP, TSH #### [facility] [address] [address] [address] David Cannon Sodium [Moles/Vol] 142 mmol/L Normal 136-145 [facility] Comment on above: Performed By: #### B MP, TSH #### [facility] [address] [place] [address] Dr. David Cannon Urea nitrogen [Mass/Vol] 12.0 mg/dL Normal 7.0-18.0 [facility] Comment on above: Performed By: #### B MP, TSH #### [facility] [address] [place] [address] Dr. David Cannon Urea nitrogen/Creatinine [Mass ratio] 14.1 mg/mg Normal [facility] Comment on above: Performed By: #### B MP, TSH #### [facility] [address] [place] [address] Dr. David Cannon URINE MICROSCOPIC ONLYon BACTERIA LARGE Abnormal NONE SEEN [facility] Comment on above: Performed By: #### U MICRO, ERUR #### [facility] [address] [place] [address] Dr. David Cannon Bacteria identified Cx Nom (U) INDICATED Normal [facility] Comment on above: Performed By: #### U MICRO, ERUR #### [facility] [address] [place] [address] Dr. David Cannon CA OX CRYSTALS FEW Normal [facility] Comment on above: Performed By: #### U MICRO, ERUR #### [facility] [address] [place] [address] Dr. David Cannon CAST SEEN Abnormal NONE SEEN [facility] Comment on above: Performed By: #### U MICRO, ERUR #### [facility] [address] [address] [address] David Cannon Crystals LM Nom (Urine sed) SEEN Abnormal NONE SEEN [facility] Comment on above: Performed By: #### U MICRO, ERUR #### [facility] [address] [place] [address] Dr. David Cannon Epithelial cells LM Ql (Urine sed) RARE Normal NONE SEEN /RARE [facility] Comment on above: Performed By: #### U MICRO, ERUR #### [facility] [address] [place] [address] Dr. David Cannon HYALINE CAST FEW Normal [facility] Comment on above: Performed By: #### U MICRO, ERUR #### [facility] [address] [place] [address] Dr. David Cannon MUCOUS TRACE Abnormal NONE SEEN [facility] Comment on above: Performed By: #### U MICRO, ERUR #### [facility] [address] [place] [address] Dr. David Cannon RBC 2-5 Abnormal 0-2 [facility] Comment on above: Performed By: #### U MICRO, ERUR #### [facility] [address] [place] [address] Dr. David Cannon WBC 75-100 Abnormal NONE SEEN [facility] Comment on above: Performed By: #### U MICRO, ERUR #### [facility] [address] [place] [address] Dr. David Cannon XR ANKLE RT MIN 3 VIEWSon XR ANKLE RT MIN 3 VIEWS EXAM: Right ankle HISTORY: Pain after an injury last night. TECHNIQUE: 3 views of the right ankle were obtained. FINDINGS: There is no evidence of fracture or dislocation. There are no suspicious bone lesions. Soft tissues are normal. IMPRESSION: No acute findings. Electronically authenticated by: STEPHANIE DODD Date: 2021-10-05 10:56 Normal [facility] MRI TSPINE WO W CONon 2021 MRI [...] by: CELIA CORMIER Date: 2021-09-01 07:29 Normal [facility] CREATININEon 08-31-2021 Creatinine [Mass/Vol] 0.82 mg/dL Normal 0.55-1.02 [facility] Comment on above: Performed By: #### C LUCIA #### [facility] [address] [place] [address] Dr. David Cannon EGFR-AF NEW ZEALANDER >60 Normal >=60 [facility] Comment on above: Performed By: #### C LUCIA #### [facility] [address] [place] [address] Dr. David Cannon EGFR-NON AF NEW ZEALANDER >60 Normal >=60 [facility] Comment on above: Performed By: #### C LUCIA #### [facility] [address] [place] [address] Dr. David Cannon COVID Quick Testingon 2021 Result Negative [employer] Other Quick Fluon 04-13-2021 FLUAV Ab CF (S) [Titer] Negative [employer] Other FLUBV Ab CF (S) [Titer] Negative [employer] Other Vital Signs Date Time Vital Sign Value Performing Clinician Facility 10-01-2024 13:19-0400 Body height 157.48 cm Nettie Iqbal MD Work Phone: [facility] 10-01-2024 13:19-0400 Body mass index (BMI) [Ratio] 18.6 kg/m2 Nettie Iqbal MD Work Phone: [facility] 10-01-2024 13:19-0400 Body weight 46.26 kg Nettie Iqbal MD Work Phone: [facility] 10-01-2024 13:19-0400 Diastolic blood pressure 81 mm[Hg] Nettie Iqbal MD Work Phone: [facility] 10-01-2024 13:19-0400 Heart rate 66 /min Nettie Iqbal MD Work Phone: [facility] 10-01-2024 13:19-0400 Respiratory rate 18 /min Nettie Iqbal MD Work Phone: [facility] 10-01-2024 13:19-0400 Systolic blood pressure 142 mm[Hg] Nettie Iqbal MD Work Phone: [facility] 09-23-2024 13:04-0400 Body height 157.48 cm Nettie Iqbal MD Work Phone: [facility] 09-23-2024 13:04-0400 Body mass index (BMI) [Ratio] 18.8 kg/m2 Nettie Iqbal MD Work Phone: [facility] 09-23-2024 13:04-0400 Body weight 46.89 kg Nettie Iqbal MD Work Phone: [facility] 09-23-2024 13:04-0400 Diastolic blood pressure 71 mm[Hg] Nettie Iqbal MD Work Phone: [facility] 09-23-2024 13:04-0400 Heart rate 86 /min Nettie Iqbal MD Work Phone: [facility] 09-23-2024 13:04-0400 SaO2% (BldA) [Mass fraction] 92 % Nettie Iqbal MD Work Phone: [place] [address]-15-2025 13:04-0400 Systolic blood pressure 110 mm[Hg] Nettie Iqbal MD Work Phone: [facility] 06-23-2024 13:09-0400 Body height 157.48 cm [facility] 06-23-2024 13:09-0400 Body mass index (BMI) [Ratio] 19.7 kg/m2 [facility] 06-23-2024 13:09-0400 Body weight 48.98 kg [facility] 06-23-2024 13:09-0400 Diastolic blood pressure 81 mm[Hg] [facility] 06-23-2024 13:09-0400 Heart rate 85 /min [facility] 06-23-2024 13:09-0400 Systolic blood pressure 124 mm[Hg] [facility] 03-28-2024 13:03-0500 Body height 157.48 cm Nettie Iqbal MD Work Phone: [facility] 03-28-2024 13:03-0500 Body mass index (BMI) [Ratio] 18.6 kg/m2 Nettie Iqbal MD Work Phone: [facility] 03-28-2024 13:03-0500 Body weight 46.37 kg Nettie Iqbal MD Work Phone: [facility] 03-28-2024 13:03-0500 Diastolic blood pressure 71 mm[Hg] Nettie Iqbal MD Work Phone: [facility] 03-28-2024 13:03-0500 Heart rate 74 /min Nettie Iqbal MD Work Phone: [facility] 03-28-2024 13:03-0500 SaO2% (BldA) [Mass fraction] 91 % Nettie Iqbal MD Work Phone: [facility] 03-28-2024 13:03-0500 Systolic blood pressure 115 mm[Hg] Nettie Iqbal MD Work Phone: [facility] 03-21-2024 11:30-0500 Diastolic blood pressure 75 mm[Hg] Everett Dunlap MD Work Phone: [facility] 03-21-2024 11:30-0500 Heart rate 62 /min Everett Dunlap MD Work Phone: [facility] 03-21-2024 11:30-0500 Respiratory rate 18 /min Everett Dunlap MD Work Phone: [facility] 03-21-2024 11:30-0500 SaO2% (BldA) [Mass fraction] 96 % Everett Dunlap MD Work Phone: [facility] 03-21-2024 11:30-0500 Systolic blood pressure 122 mm[Hg] Everett Dunlap MD Work Phone: [facility] 03-21-2024 10:32-0500 Body temperature 97.2 [degF] Everett Dunlap MD Work Phone: [facility] 01-16-2024 16:03-0500 Body height 157.48 cm MD Nettie Iqbal Work Phone: [facility] 01-16-2024 16:03-0500 Body mass index (BMI) [Ratio] 18.6 kg/m2 MD Nettie Iqbal Work Phone: [facility] 01-16-2024 16:03-0500 Body temperature 99.3 [degF] MD Nettie Iqbal Work Phone: [facility] 01-16-2024 16:03-0500 Body weight 46.35 kg MD Nettie Iqbal Work Phone: [facility] 01-16-2024 16:03-0500 Diastolic blood pressure 80 mm[Hg] MD Nettie Iqbal Work Phone: [facility] 01-16-2024 16:03-0500 Heart rate 77 /min MD Nettie Iqbal Work Phone: [facility] 01-16-2024 16:03-0500 Respiratory rate 16 /min MD Nettie Iqbal Work Phone: [facility] 01-16-2024 16:03-0500 SaO2% (BldA) [Mass fraction] 96 % MD Nettie Iqbal Work Phone: [facility] 01-16-2024 16:03-0500 Systolic blood pressure 127 mm[Hg] MD Nettie Iqbal Work Phone: [facility] 12-25-2023 13:30-0400 Body height 157.48 cm MD Nettie Iqbal Work Phone: [facility] 12-25-2023 13:30-0400 Body mass index (BMI) [Ratio] 19.8 kg/m2 MD Nettie Iqbal Work Phone: [facility] 12-25-2023 13:30-0400 Body weight 49.1 kg MD Nettie Iqbal Work Phone: [facility] 12-25-2023 13:30-0400 Diastolic blood pressure 70 mm[Hg] MD Nettie Iqbal Work Phone: [facility] 12-25-2023 13:30-0400 Heart rate 71 /min MD Nettie Iqbal Work Phone: [facility] 12-25-2023 13:30-0400 Respiratory rate 16 /min MD Nettie Iqbal Work Phone: [facility] 12-25-2023 13:30-0400 SaO2% (BldA) [Mass fraction] 95 % MD Nettie Iqbal Work Phone: [facility] 12-25-2023 13:30-0400 Systolic blood pressure 124 mm[Hg] MD Nettie Iqbal Work Phone: [facility] 12-19-2023 11:14-0400 Body weight 48 kg Everett Dunlap MD Work Phone: [facility] 12-19-2023 11:14-0400 Diastolic blood pressure 60 mm[Hg] Everett Dunlap MD Work Phone: [facility] 12-19-2023 11:14-0400 Heart rate 75 /min Everett Dunlap MD Work Phone: [facility] 12-19-2023 11:14-0400 Systolic blood pressure 116 mm[Hg] Everett Dunlap MD Work Phone: [facility] 11-26-2023 09:18-0400 Body height 157.48 cm MD Nettie Iqbal Work Phone: [facility] 11-26-2023 09:18-0400 Body mass index (BMI) [Ratio] 18.3 kg/m2 MD Nettie Iqbal Work Phone: [facility] 11-26-2023 09:18-0400 Body weight 45.35 kg MD Nettie Iqbal Work Phone: [facility] 11-26-2023 09:18-0400 Diastolic blood pressure 72 mm[Hg] MD Nettie Iqbal Work Phone: [facility] 11-26-2023 09:18-0400 Heart rate 80 /min MD Nettie Iqbal Work Phone: [facility] 11-26-2023 09:18-0400 Systolic blood pressure 105 mm[Hg] MD Nettie Iqbal Work Phone: [facility] 09-24-2023 13:09-0400 Body height 157.48 cm [facility] 09-24-2023 13:09-0400 Body mass index (BMI) [Ratio] 18.3 kg/m2 [facility] 09-24-2023 13:09-0400 Body weight 45.47 kg [facility] 09-24-2023 13:09-0400 Diastolic blood pressure 82 mm[Hg] [facility] 09-24-2023 13:09-0400 Heart rate 73 /min [facility] 09-24-2023 13:09-0400 Systolic blood pressure 120 mm[Hg] [facility] 08-11-2023 11:04-0400 Body height 157.48 cm MD Nettie Iqbal Work Phone: [facility] 08-11-2023 11:04-0400 Body mass index (BMI) [Ratio] 19.1 kg/m2 MD Nettie Iqbal Work Phone: [facility] 08-11-2023 11:04-0400 Body temperature 97.4 [degF] MD Nettie Iqbal Work Phone: [facility] 08-11-2023 11:04-0400 Body weight 47.28 kg MD Nettie Iqbal Work Phone: [facility] 08-11-2023 11:04-0400 Heart rate 67 /min MD Nettie Iqbal Work Phone: [facility] 08-11-2023 11:04-0400 Respiratory rate 18 /min MD Nettie Iqbal Work Phone: [facility] 08-11-2023 11:04-0400 SaO2% (BldA) [Mass fraction] 91 % MD Nettie Iqbal Work Phone: [facility] 06-22-2023 13:02-0400 Body height 157.48 cm [facility] 06-22-2023 13:02-0400 Body mass index (BMI) [Ratio] 19.5 kg/m2 [facility] 06-22-2023 13:02-0400 Body weight 48.59 kg [facility] 06-22-2023 13:02-0400 Diastolic blood pressure 79 mm[Hg] [facility] 06-22-2023 13:02-0400 Heart rate 69 /min [facility] 06-22-2023 13:02-0400 Systolic blood pressure 143 mm[Hg] [facility] 06-15-2023 15:16-0400 Diastolic blood pressure 67 mm[Hg] [place] [facility] 06-15-2023 15:16-0400 Heart rate 59 /min [place] [facility] [employer] [facility] 06-15-2023 15:16-0400 Respiratory rate 12 /min [place] [facility] 06-15-2023 15:16-0400 SaO2% (BldA) [Mass fraction] 95 % [place] [facility] [employer] 06-15-2023 15:16-0400 Systolic blood pressure 152 mm[Hg] [place] [facility] 06-15-2023 11:59-0400 Body temperature 98.29 [degF] [place] 1 [facility] BEJAR[facility] [employer] 04-11-2023 14:20-0500 Body height 157.48 cm [employer] Other [facility] 04-11-2023 14:20-0500 Body mass index (BMI) [Ratio] 19.75 kg/m2 [employer] Other [employer] Other 04-11-2023 14:20-0500 Body weight 48.99 kg [employer] Other [employer] Other 04-11-2023 14:20-0500 Body weight 48.98 kg [facility] 02-27-2023 11:00-0500 Body height 157.48 cm [employer] Other [employer] Other 02-27-2023 11:00-0500 Body mass index (BMI) [Ratio] 19.75 kg/m2 [employer] Other [employer] Other 02-27-2023 11:00-0500 Body weight 48.99 kg [employer] Other [employer] Other 10-24-2022 13:00-0400 Body height 157.48 cm Nettie Iqbal Other [employer] Other 10-24-2022 13:00-0400 Body mass index (BMI) [Ratio] 21.21 kg/m2 Nettie Iqbal Other [employer] Other 10-24-2022 13:00-0400 Body weight 52.62 kg Nettie Iqbal Other [employer] Other 10-24-2022 13:00-0400 Diastolic blood pressure 82 mm[Hg] Nettie Iqbal Other [employer] Other 10-24-2022 13:00-0400 Systolic blood pressure 129 mm[Hg] Nettie Iqbal Other [employer] Other 09-07-2022 14:15-0400 Body height 157.48 cm Kiran Barksdale Other [employer] Other 09-07-2022 14:15-0400 Body mass index (BMI) [Ratio] 20.48 kg/m2 Kiran Barksdale Other [employer] Other 09-07-2022 14:15-0400 Body weight 50.8 kg Kiran Pintoack Other [employer] Other 09-07-2022 14:15-0400 Diastolic blood pressure 80 mm[Hg] Kiran Shamir Other [employer] Other 09-07-2022 14:15-0400 Systolic blood pressure 137 mm[Hg] Kiran Shamir Other [employer] Other 08-29-2022 14:00-0400 Body height 157.48 cm Nettie Iqbal Other [employer] Other 08-29-2022 14:00-0400 Body mass index (BMI) [Ratio] 20.3 kg/m2 Nettie Iqbal Other [employer] Other 08-29-2022 14:00-0400 Body weight 50.35 kg Nettie Iqbal Other [employer] Other 08-29-2022 14:00-0400 Diastolic blood pressure 85 mm[Hg] Nettie Iqbal Other [employer] Other 08-29-2022 14:00-0400 Systolic blood pressure 144 mm[Hg] Nettie Kathy Other [employer] Other 08-25-2022 16:50-0400 Body height 157.48 cm Sandra Flores Other [employer] Other 08-25-2022 16:50-0400 Body mass index (BMI) [Ratio] 20.59 kg/m2 Sandra Flores Other [employer] Other 08-25-2022 16:50-0400 Body temperature 96.6 [degF] Sandra Flores Other [employer] Other 08-25-2022 16:50-0400 Body weight 51.08 kg Sandra Flores Other [employer] Other 08-25-2022 16:50-0400 Diastolic blood pressure 71 mm[Hg] Sandra Flores Other [employer] Other 08-25-2022 16:50-0400 Respiratory rate 20 /min Sandra Flores Other [employer] Other 08-25-2022 16:50-0400 SaO2% (BldA) [Mass fraction] 94 % Sandra Flores Other [employer] Other 08-25-2022 16:50-0400 Systolic blood pressure 106 mm[Hg] Sandra Flores Other [employer] Other 08-03-2022 14:30-0400 Body height 157.48 cm Nettie Iqbal Other [employer] Other 08-03-2022 14:30-0400 Body mass index (BMI) [Ratio] 21.21 kg/m2 Nettie Iqbal Other [employer] Other 08-03-2022 14:30-0400 Body weight 52.62 kg Nettie Iqbal Other [employer] Other 08-03-2022 14:30-0400 Diastolic blood pressure 93 mm[Hg] Nettie Iqbal Other [employer] Other 08-03-2022 14:30-0400 Systolic blood pressure 143 mm[Hg] Nettie Iqbal Other [employer] Other 06-20-2022 16:20-0400 Body height 157.48 cm Vanessa Juvenal Other [employer] Other 06-20-2022 16:20-0400 Body mass index (BMI) [Ratio] 21.95 kg/m2 Vanessa Sanford Other [employer] Other 06-20-2022 16:20-0400 Body temperature 98.9 [degF] Vanessa Sanford Other [employer] Other 06-20-2022 16:20-0400 Body weight 54.43 kg Vanessa Sanford Other [employer] Other 06-20-2022 16:20-0400 Diastolic blood pressure 81 mm[Hg] Vanessa Sanford Other [employer] Other 04-11-2023 16:20-0400 Respiratory rate 18 /min Vanessa Juvenal Other [employer] Other 06-20-2022 16:20-0400 SaO2% (BldA) [Mass fraction] 99 % Vanessa Sanford Other [employer] Other 06-20-2022 16:20-0400 Systolic blood pressure 150 mm[Hg] Vanessa Juvenal Other [employer] Other 06-16-2022 12:30-0400 Body height 157.48 cm Phani Ball Other [employer] Other 06-16-2022 12:30-0400 Body mass index (BMI) [Ratio] 22.2 kg/m2 Phani Ball Other [employer] Other 06-16-2022 12:30-0400 Body weight 55.07 kg Phani Ball Other [employer] Other 06-16-2022 12:30-0400 Diastolic blood pressure 75 mm[Hg] Phani Ball Other [employer] Other 06-16-2022 12:30-0400 Respiratory rate 12 /min Phani Ball Other [employer] Other 06-16-2022 12:30-0400 Systolic blood pressure 139 mm[Hg] Phani Ball Other [employer] Other 05-29-2022 14:45-0400 Body height 157.48 cm Phani Ball Other [employer] Other 05-29-2022 14:45-0400 Body mass index (BMI) [Ratio] 21.25 kg/m2 Phani Ball Other [employer] Other 05-29-2022 14:45-0400 Body weight 52.71 kg Phani Ball Other [employer] Other 05-29-2022 14:45-0400 Diastolic blood pressure 98 mm[Hg] Phani Ball Other [employer] Other 05-29-2022 14:45-0400 Respiratory rate 12 /min Phani Ball Other [employer] Other 05-29-2022 14:45-0400 Systolic blood pressure 150 mm[Hg] Phani Ball Other [employer] Other 03-14-2022 15:30-0500 Body height 157.48 cm Kiran Barksdale Other [employer] Other 03-14-2022 15:30-0500 Body mass index (BMI) [Ratio] 19.57 kg/m2 Kiran Barksdale Other [employer] Other 03-14-2022 15:30-0500 Body weight 48.54 kg Kiran Barksdale Other [employer] Other 03-14-2022 15:30-0500 Diastolic blood pressure 96 mm[Hg] Kiran Barksdale Other [employer] Other 03-14-2022 15:30-0500 Systolic blood pressure 136 mm[Hg] Kiran Barksdale Other [employer] Other 01-20-2022 11:40-0500 Diastolic blood pressure 84 mm[Hg] DO Phani Ball Work Phone: [facility] 01-20-2022 11:40-0500 Heart rate 79 /min DO Phani Ball Work Phone: [facility] 01-20-2022 11:40-0500 Respiratory rate 18 /min DO Phani Ball Work Phone: [facility] 01-20-2022 11:40-0500 SaO2% (BldA) [Mass fraction] 97 % DO Phani Ball Work Phone: [facility] 01-20-2022 11:40-0500 Systolic blood pressure 143 mm[Hg] DO Phani Ball Work Phone: [facility] 01-20-2022 09:05-0500 Body height 157.48 cm DO Phani Ball Work Phone: [facility] 01-20-2022 09:05-0500 Body temperature 98.2 [degF] DO Phani Ball Work Phone: [facility] 01-20-2022 09:05-0500 Body weight 51.25 kg DO Phani Ball Work Phone: [facility] 12-09-2021 12:00-0400 Body height 157.48 cm Kiran Barksdale Other [employer] Other 12-09-2021 12:00-0400 Body mass index (BMI) [Ratio] 21.58 kg/m2 Kiran Barksdale Other [employer] Other 12-09-2021 12:00-0400 Body weight 53.52 kg Kiran Barksdale Other [employer] Other 09-05-2021 17:00-0400 Body height 157.48 cm Ambrose Torres Other [employer] Other 09-05-2021 17:00-0400 Body mass index (BMI) [Ratio] 23.01 kg/m2 Ambrose Torres Other [employer] Other 09-05-2021 17:00-0400 Body weight 57.06 kg Ambrose Torres Other [employer] Other 06-13-2021 10:45-0400 Body height 157.48 cm Janna Pina Other [employer] Other 06-13-2021 10:45-0400 Body mass index (BMI) [Ratio] 23.23 kg/m2 Janna Pina Other [employer] Other 06-13-2021 10:45-0400 Body weight 57.61 kg Janna Pina Other [employer] Other 06-13-2021 10:45-0400 Diastolic blood pressure 107 mm[Hg] Janna Pina Other [employer] Other 06-13-2021 10:45-0400 Systolic blood pressure 145 mm[Hg] Janna Pina Other [employer] Other 04-13-2021 10:05-0500 Body height 157.48 cm Shira Cunningham Other [employer] Other 04-13-2021 10:05-0500 Body mass index (BMI) [Ratio] 22.86 kg/m2 Shira Cunningham Other [employer] Other 04-13-2021 10:05-0500 Body temperature 96.2 [degF] Shira Cunningham Other [employer] Other 04-13-2021 10:05-0500 Body weight 56.7 kg Shira Cunningham Other [employer] Other 04-13-2021 10:05-0500 Respiratory rate 18 /min Shira Cunningham Other [employer] Other 04-13-2021 10:05-0500 SaO2% (BldA) [Mass fraction] 95 % Shira Cunningham Other [employer] Other 01-20-2021 12:00-0500 Body height 157.48 cm Janna Pina Other [employer] Other 01-20-2021 12:00-0500 Body mass index (BMI) [Ratio] 23.04 kg/m2 Janna Pina Other [employer] Other 01-20-2021 12:00-0500 Body weight 57.15 kg Janna Pina Other [employer] Other 12-07-2020 15:30-0400 Body height 157.48 cm Janna Pina Other [employer] Other 12-07-2020 15:30-0400 Body mass index (BMI) [Ratio] 22.86 kg/m2 Janna Pina Other [employer] Other 12-07-2020 15:30-0400 Body weight 56.7 kg Janna Pina Other [employer] Other Encounters Encounter Date Encounter Type Care Provider Facility Start: 10-01-2024 End: 10-01-2024 ambulatory Nettie Iqbal MD Work Phone: [facility] Work Phone: Start: 10-01-2024 End: 10-01-2024 Patient encounter procedure Obed Murray APRN -[facility] Work Phone: Start: 09-23-2024 End: 09-23-2024 ambulatory Nettie Iqbal MD Work Phone: [facility] Work Phone: Start: 09-23-2024 End: 09-23-2024 Patient encounter procedure Nettie Iqbal MD -[facility] Work Phone: Start: 09-15-2024 End: 09-15-2024 ambulatory Vickey Beasley MD Facility:[facility] Start: 08-21-2024 Non-patient / Non-visit Jaymie REVELES -[facility] Work Phone: Start: 07-15-2024 End: 07-22-2024 Telephone encounter Everett Dunlap MD Work Phone: Gastroenterology Start: 07-05-2024 End: 07-05-2024 Patient encounter procedure Nettie Iqbal MD Work Phone: [facility] [place] Work Phone: Start: 07-05-2024 End: 07-05-2024 ambulatory Nettie Iqbal MD Work Phone: [facility] Work Phone: Start: 06-23-2024 End: 06-23-2024 ambulatory [facility] Work Phone: Start: 06-23-2024 End: 06-23-2024 Patient encounter procedure [facility] Work Phone: Start: 03-31-2024 End: 03-31-2024 Telephone encounter Everett Dunlap MD Work Phone: Gastroenterology Comment on above: Follow Up Tests Resu lts (Cytology---->recommend MRCP in [address] Erwin) Start: 03-28-2024 End: 03-28-2024 ambulatory Nettie Iqbal MD Work Phone: [facility] Work Phone: Start: 03-28-2024 End: 03-28-2024 Patient encounter procedure Nettie Iqbal MD Work Phone: [facility] Work Phone: Start: 03-21-2024 [facility]ulatory [facility] Start: 03-21-2024 End: 03-21-2024 Subsequent hospital visit by physician Everett Dunlap MD Work Phone: [facility] Endoscopy - ENDO Comment on above: Pancreatic cyst [K86 .2] Start: 03-20-2024 End: 03-20-2024 Telephone encounter Everett Dunlap MD Work Phone: [facility] - ENDO Start: 03-19-2024 Registered Recurring Nettie balderas MD Work Phone: [facility] Start: 03-14-2024 End: 03-14-2024 ambulatory Everett Dunlap MD Work Phone: [facility] - ENDO Start: 02-14-2024 End: 02-19-2024 Telephone encounter Everett Dunlap MD Work Phone: Gastroenterology Start: 02-13-2024 End: 02-13-2024 Telephone encounter Everett Dunlap MD Work Phone: [facility] - ENDO Start: 02-05-2024 End: 02-05-2024 ambulatory Everett Dunlap MD Work Phone: [facility] - ENDO Start: 01-16-2024 End: 01-16-2024 Departed Referred MD Nettie Iqbal Work Phone: [facility] [place] Work Phone: Start: 01-16-2024 End: 01-16-2024 ambulatory MD Nettie Iqbal Work Phone: [facility] Work Phone: Start: 01-16-2024 End: 01-16-2024 Patient encounter procedure MD Nettie Iqbal Work Phone: [facility] Work Phone: Start: 01-08-2024 Non-patient / Non-visit MD Anny Iqbal Work Phone: [facility] Work Phone: Start: 01-03-2024 Non-patient / Non-visit MD Anny Iqbal Work Phone: [facility] Work Phone: Start: 01-03-2024 Registered Recurring MD Nettie Iqbal Work Phone: [facility] Start: 12-25-2023 End: 12-25-2023 ambulatory MD Nettie Iqbal Work Phone: [facility] Work Phone: Start: 12-25-2023 End: 12-25-2023 Patient encounter procedure MD Nettie Iqbal Work Phone: [facility] Work Phone: Start: 12-19-2023 End: 12-19-2023 ambulatory EVERETT DUNLAP Facility:[facility] Start: 12-19-2023 End: 12-19-2023 Patient encounter procedure Everett Dunlap MD Work Phone: Gastroenterology Comment on above: Chronic LUQ pain (Pr imary Dx); Weight loss; Pancreatic cyst; Family history of colon cancer in father; Smoker Start: 12-12-2023 Non-patient / Non-visit MD Anny Iqbal Work Phone: [facility] Work Phone: Start: 12-12-2023 Non-patient / Non-visit MD Anny Iqbal Work Phone: [facility] Work Phone: Start: 12-06-2023 Registered Recurring MD Nettie Iqbal Work Phone: [facility] Start: 11-30-2023 End: 12-04-2023 Telephone encounter Everett Dunlap MD Work Phone: Gastroenterology Comment on above: Procedure (Referred for EUS--->needs OV first) Start: 11-26-2023 End: 11-26-2023 ambulatory MD Nettie Iqbal Work Phone: [facility] Work Phone: Start: 11-26-2023 End: 11-26-2023 Patient encounter procedure MD Nettie Iqbal Work Phone: [facility] Gastroenterology Work Phone: Start: 11-02-2023 End: 11-02-2023 Patient encounter procedure MD Nettie Iqbal Work Phone: [facility] [place] Work Phone: Start: 11-02-2023 End: 11-02-2023 ambulatory MD Nettie Iqbal Work Phone: [facility] Work Phone: Start: 09-24-2023 End: 09-24-2023 ambulatory [facility] Work Phone: Start: 09-24-2023 End: 09-24-2023 Patient encounter procedure [facility] Work Phone: Start: 08-11-2023 End: 08-11-2023 ambulatory MD Nettie Iqbal Work Phone: [facility] Work Phone: Start: 08-11-2023 End: 08-11-2023 Patient encounter procedure MD Nettie Iqbal Work Phone: [facility] Work Phone: Start: 07-26-2023 End: 07-26-2023 Patient encounter procedure MD Nettie Iqbal Work Phone: [facility]ician [facility] Work Phone: Start: 06-22-2023 End: 06-22-2023 Departed Referred MD Nettie Iqbal Work Phone: [facility] [place] Work Phone: Start: 06-22-2023 End: 06-22-2023 ambulatory [facility] Work Phone: Start: 06-22-2023 End: 06-22-2023 Patient encounter procedure [facility] Work Phone: Start: 06-15-2023 End: 06-18-2023 ambulatory [facility] Start: 06-15-2023 End: 06-17-2023 Subsequent hospital visit by physician Ricardo Carbajal MD Work Phone: [facility] Special Procedure Comment on above: Compression fracture of T12 vertebra with delayed healing, subsequent encounter; Other osteoporosis with current pathological fracture, vertebra(e), initial encounter for fracture (HCC) Start: 06-13-2023 End: 06-14-2023 [facility]ulatory [facility] Start: 05-28-2023 Non-patient / Non-visit [facility] Work Phone: Start: 04-19-2023 End: 04-19-2023 Subsequent hospital visit by physician Rad External Film EF [employer]TERNAL [employer] Comment on above: Arrived Start: 04-13-2023 End: 04-13-2023 ambulatory Nettie Iqbal Other [employer] Other Start: 04-13-2023 Telephone encounter Nettie Iqbal [facility] Start: 04-11-2023 End: 04-11-2023 ambulatory Ana Kim Other [employer] Other Start: 04-11-2023 Office outpatient vi sit 15 minutes Ana Kim [facility] Start: 04-11-2023 End: 04-11-2023 Patient encounter procedure [facility]- Start: 03-08-2023 End: 03-08-2023 ambulatory Nettie Iqbal Other [employer] Other Start: 03-08-2023 Office outpatient vi sit 15 minutes Nettie Iqbal [facility] Start: 03-08-2023 Telephone encounter Nettie Iqbal [facility] Start: 03-02-2023 End: 03-02-2023 ambulatory Ana Kim Other [employer] Other Start: 03-02-2023 Telephone encounter Ana Kim [facility] Start: 02-27-2023 Office outpatient vi sit 25 minutes Anamusa Kim [facility] [facility] Start: 02-27-2023 End: 02-27-2023 ambulatory MD Nettie Iqbal Work Phone: [facility] Work Phone: Start: 02-27-2023 End: 02-27-2023 Patient encounter procedure MD Nettie Iqbal Work Phone: [facility]-XRay [employer] Work Phone: Start: 02-20-2023 End: 02-20-2023 ambulatory Nettie Iqbal Other [employer] Other Start: 02-20-2023 Telephone encounter Nettie Iqbal [facility] Start: 02-15-2023 End: 02-15-2023 ambulatory Nettie Iqbal Other [employer] Other Start: 02-15-2023 Telephone encounter Nettie Iqbal [facility] Start: 02-12-2023 End: 02-12-2023 ambulatory Nettie Iqbal Other [employer] Other Start: 02-12-2023 Telephone encounter Nettie Iqbal [facility] Start: 01-29-2023 End: 01-29-2023 ambulatory Kiran Barksdale Other [employer] Other Start: 01-29-2023 Telephone encounter Kiran arnett [facility] Start: 01-26-2023 End: 01-26-2023 ambulatory Kiran Barksdale Other [employer] Other Start: 01-26-2023 Telephone encounter Kiran arnett [facility] Start: 01-25-2023 End: 01-25-2023 ambulatory Nettie Iqbal Other [employer] Other Start: 01-25-2023 Telephone encounter Nettie Iqbal [facility] Start: 01-23-2023 End: 01-24-2023 ambulatory ROBIN FLANNERY Not Available Start: 01-22-2023 End: 01-22-2023 ambulatory Nettie Iqbal Other [employer] Other Start: 01-22-2023 Telephone encounter Nettie Iqbal [facility] Start: 01-15-2023 (Televisit) Televisit Nettie Iqbal F [facility] Start: 01-15-2023 End: 01-15-2023 ambulatory Nettie Iqbal Other [employer] Other Start: 01-12-2023 End: 01-12-2023 ambulatory Nettie Iqbal Other [employer] Other Start: 01-12-2023 Telephone encounter Nettie Iqbal [facility] Start: 01-11-2023 End: 01-11-2023 ambulatory MD Nettie Iqbal Work Phone: [facility] Work Phone: Start: 01-11-2023 End: 01-11-2023 Patient encounter procedure MD Nettie Iqbal Work Phone: [facility]-Lab [facility] Work Phone: Start: 12-28-2022 End: 12-28-2022 ambulatory Nettie Iqbal Other [employer] Other Start: 12-28-2022 Telephone encounter Nettie Iqbal [facility] Start: 12-26-2022 (Televisit) Televisit Nettie Iqbal Jam[facility] Start: 12-26-2022 End: 12-26-2022 ambulatory Nettie Iqbal Other [employer] Other Start: 12-25-2022 Telephone encounter Nettie Iqbal [facility] Start: 12-25-2022 End: 12-26-2022 ambulatory [place] RAMOS [facility] [employer] Other Start: 12-25-2022 End: 12-25-2022 Patient encounter procedure [place] RAMOS [facility] Start: 12-18-2022 End: 12-18-2022 Office outpatient new 45 minutes Libby Muñoz PA-C Work Phone: [facility] Comment on above: Pancreas cyst (Prima ry Dx) Start: 11-28-2022 End: 11-28-2022 ambulatory Kiran Barksdale Other [place] [place] [employer] Other Start: 11-28-2022 Telephone encounter Kiran Vega [facility] Start: 11-27-2022 End: 11-27-2022 ambulatory Nettie Iqbal Other [place] [place] [employer] Other Start: 11-27-2022 Telephone encounter Nettie Iqbal [facility] Start: 11-23-2022 (Televisit) Televisit Nettie Iqbal Jamari [facility] Start: 11-23-2022 End: 11-23-2022 ambulatory Nettie Iqbal Other [employer] Other Start: 11-22-2022 End: 11-22-2022 ambulatory Nettie Iqbal Other [employer] Other Start: 11-22-2022 Telephone encounter Nettie Iqbal [facility] Start: 11-20-2022 End: 11-20-2022 Departed Referred MD Nettie Iqbal Work Phone: [facility]-Lab [facility] Work Phone: Start: 11-20-2022 End: 11-20-2022 Patient encounter procedure MD Nettie Iqbal Work Phone: [facility] Work Phone: Start: 11-20-2022 End: 11-20-2022 ambulatory MD Nettie Iqbal Work Phone: [facility] Work Phone: Start: 11-20-2022 Telephone encounter Nettie Iqbal [facility] Start: 11-15-2022 End: 11-15-2022 ambulatory Nettie Iqbal Other [employer] Other Start: 11-15-2022 Telephone encounter Nettie Iqbal [facility] Start: 11-09-2022 End: 11-09-2022 ambulatory MD Nettie Iqbal Work Phone: [facility] Work Phone: Start: 11-09-2022 End: 11-09-2022 Patient encounter procedure MD Nettie Iqbal Work Phone: [facility]-MRI [facility] [employer] Work Phone: Start: 11-02-2022 End: 11-02-2022 ambulatory Nettie Iqbal Other [employer] Other Start: 11-02-2022 Telephone encounter Nettie Iqbal [facility] Start: 10-24-2022 End: 10-24-2022 ambulatory Nettie Iqbal Other [employer] Other Start: 10-24-2022 Office outpatient vi sit 15 minutes Nettie Iqbal [facility] Start: 10-19-2022 End: 10-19-2022 ambulatory Shira Cunningham Other [employer] Other Start: 10-19-2022 Telephone encounter Shira [facility] Start: 10-18-2022 End: 10-18-2022 ambulatory Nettie Iqbal Other [employer] Other Start: 10-18-2022 Telephone encounter Nettie Kathy [facility] Start: 10-17-2022 End: 10-17-2022 ambulatory Nettie Iqbal Other [employer] Other Start: 10-17-2022 Telephone encounter Nettie Kathy [facility] Start: 10-05-2022 End: 10-05-2022 ambulatory Kiran Barksdale Other [employer] Other Start: 10-05-2022 Telephone encounter Kiran arnett [facility] Start: 10-04-2022 End: 10-04-2022 ambulatory Nettie Iqbal Other [employer] Other Start: 10-04-2022 Telephone encounter Nettie Kathy [facility] Start: 09-07-2022 End: 09-07-2022 ambulatory Kiran Barksdale Other [employer] Other Start: 09-07-2022 Office outpatient vi sit 25 minutes Kiran Barksdale [facility] Start: 09-06-2022 End: 09-06-2022 ambulatory Nettie Iqbal Other [employer] Other Start: 09-06-2022 Telephone encounter Nettie Kathy [facility] Start: 08-29-2022 End: 08-29-2022 ambulatory Nettie Iqbal Other [employer] Other Start: 08-29-2022 Office outpatient vi sit 15 minutes Nettie Iqbal [facility] Start: 08-25-2022 End: 08-25-2022 ambulatory Sandra Flores Other [employer] Other Start: 08-25-2022 Office outpatient vi sit 15 minutes Sandra Flores [facility] Start: 08-14-2022 End: 08-14-2022 ambulatory Phani Pruitt Other [employer] Other Start: 08-14-2022 Telephone encounter Phani GARCIA [facility] Start: 08-10-2022 End: 08-10-2022 ambulatory Phani Pruitt Other [employer] Other Start: 08-10-2022 Telephone encounter Phani GARCIA [facility] Start: 08-08-2022 End: 08-08-2022 ambulatory Nettie Iqbal Other [employer] Other Start: 08-08-2022 Telephone encounter Nettie Iqbal [facility] Start: 08-03-2022 End: 08-03-2022 ambulatory Nettie Iqbal Other [employer] Other Start: 08-03-2022 Office outpatient vi sit 15 minutes Nettie Iqbal [facility] Start: 07-27-2022 End: 07-28-[address] DOCTOR HYATT Facility:[facility]1 Start: 07-21-2022 End: 07-21-2022 ambulatory Phani Pruitt Other [employer] Other Start: 07-21-2022 Telephone encounter Phani GARCIA [facility] Start: 07-20-2022 End: 07-21-[address] PHANI PRUITT Facility:[facility] Start: 07-12-2022 End: 07-12-2022 ambulatory Phani Pruitt Other [employer] Other Start: 07-12-2022 Telephone encounter Phani Ball [facility] Start: 06-27-2022 End: 06-27-2022 ambulatory Vanessa Sanford Other [employer] Other Start: 06-27-2022 Telephone encounter Vnaessa Sanford [facility] Start: 06-22-2022 End: 06-22-2022 ambulatory Phani Pruitt Other [employer] Other Start: 06-22-2022 Telephone encounter Phani Pruitt [facility] Start: 06-20-2022 End: 06-20-2022 Departed Referred [employer] Vanessa Sanford Work Phone: [facility] [employer] Work Phone: Start: 06-20-2022 End: 06-20-2022 ambulatory [employer] Vanessa Sanford Work Phone: [facility] Work Phone: Start: 06-20-2022 Office outpatient vi sit 15 minutes Vanessa Sanford [facility] Start: 06-16-2022 End: 06-17-[address] PHANI PRUITT [facility] [employer] Other Start: 06-16-2022 Office outpatient vi sit 25 minutes Phani Pruitt [facility] Start: 06-06-2022 End: 06-07-2022 ambulatory AINSLEY WATERMAN . Facility: Start: 05-29-2022 End: 05-30-[address] PHANI PRUITT [facility] [employer] Other Start: 05-29-2022 Office outpatient vi sit 25 minutes Phani Pruitt [facility] Start: 05-29-2022 Telephone encounter Phani GARCIA [facility] Start: 05-12-2022 End: 05-12-2022 ambulatory Phani Pruitt Other [employer] Other Start: 05-12-2022 Telephone encounter Phani GARCIA [facility] Start: 05-09-2022 End: 05-09-2022 ambulatory Phani Pruitt Other [employer] Other Start: 05-09-2022 Office outpatient vi sit 15 minutes Phani Pruitt [facility] Start: 05-09-2022 Telephone encounter Phani Pruitt [facility] Start: 04-28-2022 End: 04-28-2022 ambulatory Phani Pruitt Other [employer] Other Start: 04-28-2022 Telephone encounter Phani GARCIA [facility] Start: 04-24-2022 End: 04-24-2022 ambulatory Phani Pruitt Other [employer] Other Start: 04-24-2022 Telephone encounter Phani GARCIA [facility] Start: 04-20-2022 End: 04-20-2022 ambulatory Phani Pruitt Other [employer] Other Start: 04-20-2022 Telephone encounter Phani GARCIA [facility] Start: 04-17-2022 End: 04-17-[address] ABDELRAHMAN WEINSTEIN . Facility:[facility]1 Start: 04-16-2022 Encounter for other preprocedural examination DR ABDELRAHMAN WEINSTEIN . [facility] Start: 04-14-2022 End: 04-15-[address] ABDELRAHMAN WEINSTEIN . Facility:[facility] Start: 04-14-2022 End: 04-15-2022 Encounter for other preprocedural examination DR ABDELRAHMAN WEINSTEIN . Facility:[facility] Start: 04-13-2022 End: 04-13-2022 ambulatory Phani Pruitt Other [employer] Other Start: 04-13-2022 Telephone encounter Phani GARCIA [facility] Start: 04-10-2022 End: 04-10-[address] ABDELRAHMAN WEINSTEIN . Facility:[facility]1 Start: 03-25-2022 End: 03-25-2022 ambulatory Kiran Barksdale Other [employer] Other Start: 03-25-2022 Telephone encounter Kiran arnett [facility] Start: 03-15-2022 End: 03-15-2022 ambulatory Phani Pruitt Other [employer] Other Start: 03-15-2022 Telephone encounter Phani GARCIA [facility] Start: 03-14-2022 End: 03-14-2022 ambulatory Kiran Barksdale Other [employer] Other Start: 03-14-2022 Office outpatient vi sit 15 minutes Kiran Barksdale [facility] Start: 03-10-2022 End: 03-10-2022 ambulatory Phani Pruitt Other [employer] Other Start: 03-10-2022 Telephone encounter Phani GARCIA [facility] Start: 03-01-2022 Encounter for other preprocedural examination Nettie Iqbal Other [employer] Other Start: 03-01-2022 Pre-procedure evaluation check Nettie Iqbal Other [employer] Other Start: 02-23-2022 End: 02-24-[address] KIEL DÍAZ . Facility:[facility]1 Start: 01-20-2022 End: 01-20-2022 Admission to same day surgery center DO Phani Pruitt Work Phone: [facility] Start: 01-20-2022 End: 01-20-2022 ambulatory DO Phani Pruitt Work Phone: [facility] Work Phone: Start: 01-06-2022 End: 01-07-[address] WAI SEVERINO Facility:[facility]1 Start: 01-02-2022 End: 01-02-2022 ambulatory Kiran Barksdale Other [employer] Other Start: 01-02-2022 Telephone encounter Kiran arnett [facility] Start: 12-09-2021 End: 12-09-2021 ambulatory Kiran Barksdale Other [employer] Other Start: 12-09-2021 Office outpatient vi sit 25 minutes Kiran Barksdale [facility] Start: 11-28-2021 End: 11-29-[address] PHANI PRUITT Facility:[facility]1 Start: 11-10-2021 End: 11-10-2021 ambulatory Kiran Barksdale Other [employer] Other Start: 11-10-2021 Telephone encounter Kiran arnett [facility] Start: 10-20-2021 End: 10-20-[address] PHANI PRUITT Facility:[facility]1 Start: 10-16-2021 End: 10-16-[address] PHANI PRUITT Facility:[facility] Start: 10-05-2021 End: 10-05-2021 ambulatory AINSLEY WATERMAN . Facility:[facility] Start: 09-30-2021 ambulatory SANTA Garrett Facili ty:[facility]1 Start: 09-29-2021 End: 09-29-2021 ambulatory Janna Pina Other [employer] Other Start: 09-29-2021 Telephone encounter Janna Pina [facility] Start: 09-20-2021 Adult health examination Nettie Iqbal Other [employer] Other Start: 09-20-2021 Encounter for genera l adult medical examination without abnormal findings Nettie Iqbal Other [employer] Other Start: 09-05-2021 End: 09-05-2021 ambulatory Ambrose Torres Other [employer] Other Start: 09-05-2021 Office outpatient vi sit 15 minutes Ambrose Torres [facility] Start: 08-31-2021 End: 09-01-[address] PHANI PRUITT Facility:[facility]1 Start: 07-08-2021 End: 07-08-2021 ambulatory Janna Pina Other [employer] Other Start: 07-08-2021 Telephone encounter Janna Pina [facility] Start: 06-13-2021 End: 06-13-2021 ambulatory Janna Pina Other [employer] Other Start: 06-13-2021 Office outpatient vi sit 25 minutes Janna Pina [facility] Start: 04-13-2021 End: 04-13-2021 ambulatory Shira Velasquezmond Other [employer] Other Start: 04-13-2021 Office outpatient vi sit 15 minutes Shira Marisa [facility] Start: 02-28-2021 End: 02-28-2021 ambulatory Janna Pina Other [employer] Other Start: 02-28-2021 Telephone encounter Janna Pina [facility] Start: 01-31-2021 End: 01-31-2021 ambulatory Janna Pina Other [employer] Other Start: 01-31-2021 Telephone encounter Janna Pina [facility] Start: 01-20-2021 End: 01-20-2021 ambulatory Janna Pina Other [employer] Other Start: 01-20-2021 Office outpatient vi sit 25 minutes Janna Pina [facility] Start: 01-20-2021 Telephone encounter Janna Pina [facility] Start: 12-07-2020 Office outpatient vi sit 25 minutes Janna Pina [facility] Procedures Date Procedure Procedure Detail Performing Clinician Start: 07-05-2024 Magnetic resonance cholangiopancreatography Nettie Iqbal MD Work Phone: Start: 03-21-2024 Esophagoscp rig transoral hypopharynx crv jocelyn Dunlap MD Work Phone: Start: 01-16-2024 Urine culture Nettie Iqbal MD Work Phone: Start: 11-02-2023 MRI of abdomen with contrast [...] 01-21-2032 Screening for malignant neoplasm of colon [facility] Start: 06-03-2030 RSV Vaccine (1 - 1-dose 75+ series) RSV Vaccine (1 - 1-dose 75+ series) [facility] Start: 06-12-2026 Diabetes Screening Diabetes Screening [facility] Start: 09-18-2024 Pneumococcal Vaccine: 50+ (3 of 3 - PCV20 or PCV21) Pneumococcal Vaccine: 50+ (3 of 3 - PCV20 or PCV21) [facility] Start: 06-25-2024 Patient referral [facility] Work Phone: Start: 03-21-2024 End: 03-21-2024 Patient encounter procedure [facility] Endoscopy - ENDO Comment on above: EUS (LINEAR) W/FNA Start: 03-12-2024 Advance Directive Discussion Advance Directive Discussion [facility] Start: 02-14-2024 End: 02-14-2024 Patient encounter procedure 02/14/2024 2:30 PM EST Appointment [facility] Endoscopy - ENDO [id number] [place] [address] [place] [address] [place] [address] EUS (LINEAR) W/FNA [facility] Endoscopy - ENDO Comment on above: EUS (LINEAR) W/FNA Start: 02-14-2024 End: 02-14-2024 Patient encounter procedure 02/14/2024 12:30 PM EST Appointment [facility] Endoscopy - ENDO [id number] [place] [id number] [place] [id number] [facility] [address] EUS (LINEAR) W/FNA [facility]oscopy - ENDO Comment on above: EUS (LINEAR) W/FNA Start: 01-16-2024 Urine culture [facility] Start: 01-16-2024 Bacteria identified in Urine by Culture Urine Culture [facility] Start: 12-19-2023 End: 12-19-2023 Patient encounter procedure 12/19/2023 11:40 AM EDT Office Visit Gastroenterology [facility] [place] [address] [place] [address] [place] [address] discuss EUS Gastroenterology Comment on above: discuss EUS Start: 11-26-2023 Patient referral [facility] Work Phone: Start: 11-11-2023 Covid-19 Vaccine ( season) Covid-19 Vaccine () [facility] Start: 11-11-2023 Covid-19 Vaccine ( season) Covid-19 Vaccine ( season) [facility] Start: 11-11-2023 Influenza vaccination Influenza Vaccine (#1) [facility] Start: 07-26-2023 Patient referral [facility] Work Phone: Start: 06-24-2023 Patient referral [facility] Work Phone: Start: 06-22-2023 Bacteria identified in Urine by Culture [facility] Start: 03-12-2023 Advance Directive Discussion Advance Directive Discussion [facility] Start: 03-12-2023 Annual Wellness Visit (Medicare Advantage) Annual Wellness Visit (Medicare Advantage) [facility] Start: 01-11-2023 Bacteria identified in Urine by Culture [facility] Start: 11-10-2022 COVID-19 Vaccine ( season) COVID-19 Vaccine ( season) [facility] Start: 01-20-2022 [facility] Start: 03-28-2021 COVID-19 Vaccine (4 - Pfizer series) COVID-19 Vaccine (4 - Pfizer series) [facility] Start: 09-18-2020 Pneumococcal Vaccine: 65+ (3 of 3 - PPSV23 or PCV20) Pneumococcal Vaccine: 65+ (3 of 3 - PPSV23 or PCV20) [facility] Start: 09-18-2020 Pneumococcal Vaccine: 65+ Years (3 - PPSV23 or PCV20) Pneumococcal Vaccine: 65+ Years (3 - PPSV23 or PCV20) [facility] Start: 06-03-2020 Pneumococcal 65+ years Vaccine (2 of 2 - PCV) Pneumococcal 65+ years Vaccine (2 of 2 - PCV) [facility] Start: 06-03-2020 Pneumococcal Vaccine: 65+ (1 of 1 - PCV) Pneumococcal Vaccine: 65+ (1 of 1 - PCV) [facility] Start: 06-03-2020 Pneumococcal Vaccine: 65+ Years (2 - PCV) Pneumococcal Vaccine: 65+ Years (2 - PCV) [facility] Start: 06-03-2020 Screening for osteoporosis Bone Density Screening [facility] Start: 12-13-2016 Shingles vaccine (2 of 3) Shingles vaccine (2 of 3) [facility] Start: 12-13-2016 Shingrix Vaccine (2 of 3) Shingrix Vaccine (2 of 3) [facility] Start: 12-13-2016 Zoster Vaccines (2 of 3) Zoster Vaccines (2 of 3) [facility] Start: 12-08-2016 DTaP/Tdap/Td Vaccines (1 - Tdap) DTaP/Tdap/Td Vaccines (1 - Tdap) [facility] Start: 12-08-2016 Urine microalbumin profile DTaP,Tdap,Td Vaccine (1 - Tdap) [facility] Start: 2015 Hepatitis B Vaccines (1 of 3 - Risk 3-dose series) Hepatitis B Vaccines (1 of 3 - Risk 3-dose series) [facility] Start: 2015 Respiratory Syncytial Virus (RSV) or age 60 yrs+ (1 - 1-dose 60+ series) Respiratory Syncytial Virus (RSV) or age 60 yrs+ (1 - 1-dose 60+ series) [facility] Start: 2015 RSV Vaccine (1 - Risk 60-74 years 1-dose series) RSV Vaccine (1 - Risk 60-74 years 1-dose series) [facility] Start: 06-03-2010 Screening for osteoporosis DEXA (modify frequency per FRAX score) [facility] Start: 06-03-2005 Screening for malignant neoplasm of breast Breast cancer screen [facility] Start: 06-03-2005 Shingrix Vaccine (1 of 2) Shingrix Vaccine (1 of 2) [facility] Start: 06-03-2000 Lipid panel Lipid Screening [facility] Start: 06-03-2000 Screening for malignant neoplasm of colon [facility] Start: 1995 Lipid panel Lipids [facility] Start: 1995 Screening for malignant neoplasm of breast [facility] Start: 06-03-1977 DTaP/Tdap/Td Vaccines (1 - Tdap) DTaP/Tdap/Td Vaccines (1 - Tdap) [facility] Start: 06-03-1974 DTaP/Tdap/Td vaccine (1 - Tdap) DTaP/Tdap/Td vaccine (1 - Tdap) [facility] Start: 06-03-1974 Hepatitis A Vaccines (1 of 2 - Risk 2-dose series) Hepatitis A Vaccines (1 of 2 - Risk 2-dose series) [facility] Start: 06-03-1974 Urine microalbumin profile DTaP,Tdap,Td Vaccine (1 - Tdap) [facility] Start: 06-03-1973 Anxiety Screening Anxiety Screening [facility] Start: 06-03-1973 Depression Screening Depression Screening [facility] Start: 06-03-1973 Diabetes mellitus screening Diabetes Screening [facility] Start: 06-03-1973 Hepatitis C screening [facility] Start: 1967 Depression Screen Depression Screen [facility] Start: 1955 Lipid panel Lipid Panel [facility] Start: 1955 Medicare Annual Wellness Visit Medicare Annual Wellness Visit (AWV) [facility] Start: 1955 Screening for malignant neoplasm of colon [facility] Start: 1955 Screening for osteoporosis Bone Density Scan [facility] Start: 1955 Yearly Adult Physical Yearly Adult Physical [facility] Atopobium vaginae DN A [Presence] in Vaginal fluid by JOSH with probe detection [facility] Bacteria identified in Urine by Culture [facility] Bacterial vaginosis associated bacterium 2 DNA [Presence] in Vaginal fluid by JOSH with probe detection [facility] CYTOLOGY NON-[employer]ISTANT [facility] Work Phone: Comment on above: Release Upon Ordering for 1 Occurrences starting 03/21/2024 End: 12-18-2024 EGD - THERAPEUTIC, EUS, OR TUBE INTERVENTIONS EGD - THERAPEUTIC, EUS, OR TUBE INTERVENTIONS Endoscopy Routine Pancreatic cyst 1 Occurrences starting 12/19/2023 until 12/18/2024 [facility] Work Phone: Comment on above: 1 Occurrences starting 12/19/2023 until 12/18/2024 Megasphaera sp type 1 DNA [Presence] in Vaginal fluid by JOSH with probe detection [facility] Patient Education Colitis Hemorr hoids (DC) [facility] Work Phone: Patient referral [facility] Work Phone: End: 06-15-2023 Perq vertebroplasty uni/bi injx cervicothoracic [facility] Work Phone: Comment on above: 1 Occurrences starting 06/15/2023 until 06/15/2023 Study Interpretation of outside study MR transfer of outside films Imaging Routine 04/19/2023 11:05 AM EST [facility] Work Phone: End: 06-15-2023 Vertebroplasty each addl cervicothor/lumbosacral [facility] Comment on above: 1 Occurrences starting 06/15/2023 until 06/15/2023 [facility] Immunizations Immunization Date Immunization Notes Care Provider Fa cili 12-25-2023 influenza, high dose seasonal, preservative-free MD Nettie Iqbal Work Phone: [facility] 10-24-2022 Flu vaccine, quadrivalent, high-dose, preservative free, age 65y+ (FLUZONE) Libby Muñoz PA-C Work Phone: [facility] Work Phone: 10-24-2022 influenza virus vaccine, unspecified formulation Everett Dunlap MD Work Phone: [facility] 12-24-2021 influenza, high dose seasonal, preservative-free Libby Muñoz PA-C Work Phone: [facility] Work Phone: 11-28-2021 influenza virus vaccine, split virus (incl. purified surface antigen) Nettie Iqbal Other [employer] Other 11-28-2021 influenza virus vaccine, unspecified formulation [facility] 11-28-2021 Influenza, Seasonal, Quadrivalent, Adjuvanted Libby Muñoz PA-C Work Phone: [facility] Work Phone: 01-31-2021 COVID-19 Rosie Blairirtay (Pfizer) DO Phani Pruitt Work Phone: [facility] 12-15-2020 influenza virus vaccine, split virus (incl. purified surface antigen) Nettie Iqbal Other [employer] Other 12-15-2020 influenza virus vaccine, unspecified formulation [facility] 12-15-2020 Seasonal trivalent influenza vaccine, adjuvanted, preservative free Libby Muñoz PA-C Work Phone: [facility] Work Phone: 07-30-2020 COVID-19 mRNA, Comirnaty (Pfizer) DO Phani [employer] Work Phone: [facility] 07-09-2020 COVID-19 mRNA, Comirnaty (Pfizer) DO [employer] Work Phone: [facility] 12-26-2019 influenza virus vaccine, split virus (incl. purified surface antigen) Nettie Iqbal Other [facility] [employer] Other 12-26-2019 influenza virus vaccine, unspecified formulation [facility] 09-19-2019 pneumococcal conjuga te vaccine, 13 valent Nettie Iqbal Other [facility] 01-29-2019 Influenza, injectabl e, Madin Ocotillo Canine Kidney, preservative free, quadrivalent Libby Muñoz PA-C Work Phone: [facility] Work Phone: 01-07-2018 influenza virus vaccine, split virus (incl. purified surface antigen) Nettie Iqbal Other [facility] [employer] Other 01-07-2018 influenza virus vaccine, unspecified formulation [facility] 01-07-2018 Influenza, injectabl e, Madin Kaylah Canine Kidney, quadrivalent with preservative Libby Muñoz PA-C Work Phone: [facility] Work Phone: 12-07-2016 influenza, seasonal, injectable Libby Muñoz PA-C Work Phone: [facility] Work Phone: 12-07-2016 tetanus and diphther ia toxoids, adsorbed, preservative free, for adult use (5 Lf of tetanus toxoid and 2 Lf of diphtheria toxoid) Nettie Iqbal Other [facility] 10-18-2016 zoster vaccine, live Libby Muñoz PA-C Work Phone: [facility] Work Phone: 04-24-2016 zoster vaccine, live Nettie Iqbal Other [facility] 12-10-2013 influenza, injectabl e, madin kaylah canine kidney, preservative free Libby MILLER-Janet Work Phone: [facility] Work Phone: 01-18-2013 pneumococcal polysaccharide vaccine, 23 valent Nettie Iqbal Other [facility] 10-25-2011 pneumococcal polysaccharide vaccine, 23 valent Libby Muñoz PA-C Work Phone: [facility] Work Phone: 01-10-2005 pneumococcal polysaccharide vaccine, 23 valent Janna Pina Other [employer] Other 02-05-2001 pneumococcal polysaccharide vaccine, 23 valent Libby Muñoz PA-C Work Phone: [facility] Work Phone: Payers Date Payer Category Payer Private Health Insurance 2023 Medicare (Managed Care) PRASHANT ALBERTS [id number] 2022 Unknown SELF FUNDED SELF FUNDED 000 2022-Present [address] [place] [address] [id number] 2022 Medicare [id number] 1.13.647. [id number] 1959 Medicare [id number] 2.16.840.1.810782.19 1955 Unknown [id number] 2.16.840.1.035733.3.579. 2.593 1955 Unknown [id number] 2.16.840.1.996801.3.579. 2.593 1955 Unknown [id number] 2.16.840.1.282599.3.579. 2.593 1955 Unknown [id number] 2.16.840.1.129258.3.579. 2.593 1955 Unknown [id number] 2.16.840.1.381592.3.579. 2.593 1955 Unknown [id number] 2.16.840.1.966543.3.579. 2.593 1955 Unknown [id number] 2.16.840.1.830263.3.579. 2.593 1955 Unknown [id number] 2.16.840.1.548933.3.579. 2.593 1955 Unknown [id number] 2.16.840.1.855750.3.579. 2.593 1955 Unknown [id number] 2.16.840.1.397913.3.579. 2.593 1955 Unknown [id number] 2.16.840.1.879457.3.579. 2.593 1955 Unknown [id number] 2.16.840.1.786730.3.579. 2.593 1955 Unknown [id number] 2.16.840.1.851092.3.579. 2.593 1955 Unknown [id number] 2.16.840.1.598383.3.579. 2.593 1955 Unknown [id number] 2.16.840.1.228404.3.579. 2.593 1955 Unknown [id number] 2.16.840.1.807553.3.579. 2.593 1955 Unknown [id number] 2.16.840.1.427617.3.579. 2.727 1955 Unknown [id number] 2.16.840.1.027997.3.579. 2.1259 1955 Unknown [id number] 2.16.840.1.794685.3.579. 2.1259 1955 Unknown [id number] 2.16.840.1.654140.3.579. 2.1259 1955 Unknown [id number] 2.16.840.1.558704.3.579. 2.173 1955 Unknown [id number] 2.16840.1.672164.3.579. 2.182 1955 Unknown [id number] 2.16840.1.834723.3.579. 2.196 Medicare Medicare [id number] Medicare [id number] [id number] Self-pay Self Pay [id number] Social History Date Type Detail Facility Unknown if ever smoked [employer] Other Start: 06-15-2023 End: 12-19-2023 Sex Assigned At [facility] Start: 01-20-2022 End: 02-12-2022 Tobacco smoking status NHIS Ex-smoker (finding) [facility] Start: 1955 Sex Assigned At Female [facility] Tobacco smoking stat us NHIS Tobacco smoking consumption unknown [facility] Work Phone: Start: 12-17-2022 Gender identity Identifies as female gender (finding) [facility] Work Phone: Start: 12-17-2022 Sexual orientation Heterosexual (finding) [facility] Work Phone: Tobacco smoking status No Smokin g Status Entered [facility] Start: 08-11-2023 History of tobacco use Current smoker [facility] History of tobacco use Cigarette Smoker [facility] Start: 06-15-2023 End: 12-19-2023 History of Social function [facility] Start: 1955 Sex Assigned At Not on file [facility] Start: 12-19-2023 Tobacco smoking status NHIS Smokes tobacco daily [facility] Start: 12-19-2023 Tobacco use and exposure Smokeless tobacco non-user [facility] Start: 12-19-2023 Alcoholic beverage intake Ex-drinker (finding) [facility] National Score (1-10 0), lower number is lower risk 63 [facility] Start: 01-16-2024 End: 01-16-2024 Tobacco smoking status NHIS Current some day smoker [facility] Start: 03-28-2024 End: 07-06-2024 Sex Female (finding) [facility] Medical Equipment Procedure Code Equipment Code Equipment Origin al Text Equipment Identifier Dates Kyphoplasty Orthopaedic ceme nt, non-medicated [id number] FDA Start: 06-24-2019 Cement Bne 20 Gm Hi Visc Radiopaque Vertaplex Hv - [id number] Start: 06-15-2023 Comment on above: Description: Thoraci c 11 & thoracic 12 Goals Date Patient Goal Desired Activity /State Clinical Notes 12-07-2020 to 09-23-2024 Note Date & Type Note Facility 09-23-2024 Evaluation note Diagnosis Onset Date Resolution Anxiety acute September 23 1:03pm Chronic thoracic back pain acute September 23, 2024 1:03pm Pancreatic lesion acute September 232024 1:03pm Right femoral fracture acute Ju 2024 1:03pm Vertebral compression fracture acute September 23, 2024 1:03pm Chronic back pain chronic September 232024 1:03pm COPD (chronic obstructive pulmonary disease) chronic September 23, 2024 1:03pm Fibromyalgia chronic September 23, 1:03pm Dyspepsia acute October 01 1:09pm GERD (gastroesophageal reflux disease) acute October 01, 2024 1:09pm Opioid-induced constipation acute October 01, 2024 1:09pm Pancreatic lesion acute October 012024 1:09pm [facility] Work Phone: 1(973) 761-809405-13-2025 Telephone encounter Note* Telephone Encounter - Angela Monson RN - 07/22/2024 9:21 AM EDT Recommendations faxed to Dr. Erwin's office. Angela Monson RN [facility] Work Phone: 1(380) 498-596905-13-2025 Miscellaneous Notes* Telephone Encounter - Angela Monson RN - 07/22/2024 9:21 AM EDT Recommendations faxed to Dr. Erwin's office. Angela Monson RN * Telephone Encounter - Everett Dunlap MD - 07/21/2024 4:55 PM EDT Images from the original note were not included. MRCP 07/05/2024: Pancreatic cyst in the head the pancreas measured 10 x 6 mm without definite communication with thepancreatic duct. Normal biliary tree and gallbladder. EUS 03/21/2024: Cyst in the head of the pancreas measured 10 x 8 mm without associated mass. Internal debris seen within the cavity of the cyst. Cytology from the cyst showed neoplastic cells negative for high-grade dysplasia. Recommend: MRCP in 6 months at [facility] facility. Send my opinion to Dr. Erwin. Everett Dunlap MD * Telephone Encounter - Angela Monson RN - 07/17/2024 2:[address] Dunlap, MRI images available in Psychiatric to review. Angela Monson RN * Telephone Encounter - Angela Monson RN - 07/16/2024 9:10 AM EDT Fannie called [facility], they will push images to [facility]. Will monitor. Angela Monson RN * Telephone Encounter - Everett Dunlap MD - 07/15/2024 5:23 PM EDT Angela: I wanted her MRCP to be done at [facility] facility for my review. I need the images of MRCP (done at [facility]) uploaded to [facility] for my review prior to rendering anyopinion. Everett Dunlap MD * Telephone Encounter - Angela Monson RN - 07/15/2024 4:24 PM EDT Images from the original note were not included. Dr. Dunlap, please review and advise. Than you, Angela Monson RN 12/19/2023 OV: ASSESSMENT/PLAN: 1. Chronic LUQ pain - ICD9: 789.02, 338.29, ICD10: R10.12, G89.29 (primary diagnosis) The exact etiology of her chronic left lower quadrant pain is not clear. No recent EGD or colonoscopy done by Dr. Erwin. She [facility] 2. Weight loss - ICD9: 783.21, ICD10: [...] She is scheduled 02/14/2024 at 12:30 PM, [facility]. - EGD - THERAPEUTIC, EUS, OR TUBE INTERVENTIONS 4. Family history of colon cancer in father - ICD9: V16.0, ICD10: Z80.0 5. Smoker - ICD9: 305.1, ICD10: F17.200 She smokes half pack per day for many years. Everett Dunlap MD, FACP 03/21/2024 EUS: Impression: - [...] and my recommendations to Dr. Erwin at [facility]. Pt had repeat MRCP 07/05/2024 [...] or small pseudocysts could also be considered. [facility] Telephone encounter Note * Telephone Encounter - Everett Dunlap MD - 07/21/2024 4:55 PM EDT Images from the original note were not included. MRCP 07/05/2024: Pancreatic cyst in the head the pancreas measured 10 x 6 mm without definite communication with thepancreatic duct. Normal biliary tree and gallbladder. EUS 03/21/2024: Cyst in the head of the pancreas measured 10 x 8 mm without associated mass. Internal debris seen within the cavity of the cyst. Cytology from the cyst showed neoplastic cells negative for high-grade dysplasia. Recommend: MRCP in 6 months at [facility] facility. Send my opinion to Dr. Erwin. Everett Dunlap MD [facility]05-08-2025 Telephone encounter Note* Telephone Encounter - Angela Monson RN - 07/17/2024 2:[address] Dunlap, MRI images available in Psychiatric to review. Angela Monson RN [facility]05-07-2025 Telephone encounter Note* Telephone Encounter - Angela Monson RN - 07/16/2024 9:10 AM EDT Fannie called [facility], they will push images to [facility]. Will monitor. Angela Monsno RN [facility]05-06-2025 Telephone encounter Note* Telephone Encounter - Everett Dunlap MD - 07/15/2024 5:23 PM EDT Angela: I wanted her MRCP to be done at [facility] facility for my review. I need the images of MRCP (done at [facility]) uploaded to [facility] for my review prior to rendering anyopinion. Everett Dunlap MD [facility]05-06-2025 Telephone encounter Note* Telephone Encounter - Angela Monson RN - 07/15/2024 4:24 PM EDT Images from the original note were not included. Dr. Dunlap, please review and advise. Than you, Angela Monson RN 12/19/2023 OV: ASSESSMENT/PLAN: 1. Chronic LUQ [...] She is scheduled 02/14/2024 at 12:30 PM, [facility]. - EGD - THERAPEUTIC, EUS, OR TUBE INTERVENTIONS 4. Family history of colon cancer in father - ICD9: V16.0, ICD10: Z80.0 5. Smoker - ICD9: 305.1, ICD10: F17.200 She smokes half pack per day for many years. Everett Dunlap MD, FACP 03/21/2024 EUS: Impression: - [...] and my recommendations to Dr. Erwin at [facility]. Pt had repeat MRCP 07/05/2024 [...] or small pseudocysts could also be considered. [facility]04-14-2025 Evaluation note* Diagnosis Onset Date Resolution Status Admit Date Anxiety acute June 23 1:01pm Chronic thoracic back pain acute June 23, 2024 1:01pm Pancreatic lesion acute June 102024 1:01pm Right femoral fracture acute Ap 2024 1:01pm Vertebral compression fracture acute June 23, 2024 1:01pm Chronic back pain chronic June 102024 1:01pm COPD (chronic obstructive pulmonary disease) chronic June 23, 025 1:01pm Fibromyalgia chronic June 23, 2024 1:01pm [facility] Work Phone: 1(413) 307-851701-20-2025 Telephone encounter Note* Telephone Encounter - nAgela Monson RN - 03/31/2024 1:01 PM EST Pt notified of results and recommendations and verbalized understanding. She will follow up with Dr. Erwin. Reports and recommendations faxed to Dr. Erwin's office. Angela Monson RN [facility] Work Phone: 1(419) 462-780501-20-2025 Miscellaneous Notes* Telephone Encounter - Angela Monson RN - 03/31/2024 1:01 PM EST Pt notified of results and recommendations and verbalized understanding. She will follow up with Dr. Erwin. Reports and recommendations faxed to Dr. Erwin's office. Angela Monson RN * Telephone Encounter - Angela Monson RN - 03/31/2024 12:51 PM EST ----- Message from Everett Dunlap MD sent at 03/29/2024 2:45 PM EST ----- Cytology of Fine needle aspiration of pancreatic head cyst: Neoplastic cells present. Negative for high-grade dysplasia. Last MRCP was 10/2023. Recommend MRCP in 3 months. Send the EUS report, cytology results and my recommendations to Dr. Erwin at [facility]. Everett Dunlap MD documented in this encounterWestern [facility]01-[facility]-2025 Telephone encounter Note * Telephone Encounter - Angela Monson RN - 03/31/2024 12:51 PM EST ----- Message from Everett Dunlap MD sent at 03/29/2024 2:45 PM EST ----- Cytology of Fine needle aspiration of pancreatic head cyst: Neoplastic cells present. Negative for high-grade dysplasia. Last MRCP was 10/2023. Recommend MRCP in 3 months. Send the EUS report, cytology results and my recommendations to Dr. Erwin at [facility]. Everett Dunlap MD [facility]01-17-2025 Evaluation note* Diagnosis Onset Date Resolution Status Admit Date Anxiety acute March 28, 2024 12:59pm Pancreatic lesion acute March 28, 2024 12:59pm Right femoral fracture acute [facility] 2024 12:59pm Sinusitis acute March 28, 2024 12:59pm Vertebral compression fracture acute March 28, 2024 12:59pm COPD (chronic obstructive pulmonary disease) chronic March 28, 2024 12:59pm Fibromyalgia chronic March 12:59pm [facility] Work Phone: 1(291) 620-461001-10-2025 Nurse Note* Sofy Arriaga RN - 03/21/2024 11:30 AM EST PATIENT EDUCATION TOPIC: PROCEDURE / SURGERY: Post Procedure Teaching: Symptom Management PATIENT NAME: Afia Gutierres PATIENT LOCATION: Room/bed info not found [...] PROVIDED TO PATIENT: None REFERRAL (RECOMMENDATION): None [facility]01-10-2025 Nurse Note* Sofy Arriaga RN - 03/21/2024 11:30 AM EST PATIENT EDUCATION TOPIC: PROCEDURE / SURGERY: Post Procedure Teaching: Symptom Management PATIENT NAME: Afia Gutierres PATIENT LOCATION: Room/bed info not found [...] PROVIDED TO PATIENT: None REFERRAL (RECOMMENDATION): None documented in this encounterWestern [facility] Hospital01-10-2025 History and physical note * Everett Dunlap MD - 03/21/2024 10:00 AM EST PROCEDURAL SEDATION HISTORY AND PHYSICAL EXAM SERVICE [...] every 6 hours as needed. calcium carbonate (OS-BNIA 500) 500 mg calcium (1,250 mg) tablet [...] Comments Other Reaction(s): diarrhea, itching and rash Khsfblr-Jmt-Kgo Red* Unknown Other Reaction(s): Unknown Sulfamethoxazole-Tr* Unknown Zoledronic Acid Other: See Comments Objective PHYSICAL EXAM: The remainder of the physical exam is noncontributory. AIRWAY: LUNGS: CARDIAC: , Assessment/Plan ASA Class: Active Problems: * No active hospital problems. * Resolved Problems: * No resolved hospital problems. * Medication and Non-Pharmacologic VTE Prophylaxis/Anticoagulants VTE Prophylaxis: VTE prophylaxis appropriate Provisional Diagnosis/Treatment Plan: Pancreatic cyst SIGNATURE: Everett Dunlap MD PATIENT NAME: Afia Gutierres DATE: March 21, 2024 TIME: 9:22 AM [facility]01-10-2025 History and physical note* Everett Dunlap MD - 03/21/2024 10:00 AM EST PROCEDURAL SEDATION HISTORY AND PHYSICAL EXAM SERVICE [...] Comments Other Reaction(s): diarrhea, itching and rash Vfcrxtv-Omf-Uro Red* Unknown Other Reaction(s): Unknown Sulfamethoxazole-Tr* Unknown Zoledronic Acid Other: See Comments Objective PHYSICAL EXAM: The remainder of the physical exam is noncontributory. AIRWAY: LUNGS: CARDIAC: , Assessment/Plan ASA Class: Active Problems: * No active hospital problems. * Resolved Problems: * No resolved hospital problems. * Medication and Non-Pharmacologic VTE Prophylaxis/Anticoagulants VTE Prophylaxis: VTE prophylaxis appropriate Provisional Diagnosis/Treatment Plan: Pancreatic cyst SIGNATURE: Everett Dunlap MD PATIENT NAME: Afia Gutierres DATE: March 21, 2024 TIME: 9:22 AM documented in this encounterWestern [facility] Hospital01-09-2025 Telephone encounter Note * Telephone Encounter - Carmen Meadows RN - 03/20/2024 8:59 AM EST Images from the original note were not included. Spoke with patient and confirmed procedure arrival time 9 am for egd -eus appointment. When you arrive please go to admitting/registration first, then you will be directed to the Endoscopy Dept.on the 2nd floor. If you have any questions about your appointment or your prep instructions please call . If you need to reschedule call [phone]. [facility]01-09-2025 Miscellaneous Notes* Telephone Encounter - Carmen Meadows RN - 03/20/2024 8:59 AM EST Images from the original note were not included. Spoke with patient and confirmed procedure arrival time 9 am for egd -eus appointment. When you arrive please go to admitting/registration first, then you will be directed to the Endoscopy Dept.on the 2nd floor. If you have any questions about your appointment or your prep instructions please call [phone]. If you need to reschedule call [phone]. documented in this encounterWestern [facility] Hospital12-10-2024 Telephone encounter Note * Telephone Encounter - Elham Reid II - 02/19/2024 1:09 PM EST Spoke with patient, rescheduled EUS to 03/21/2024 at [facility]. Elham Guzman II [facility]12-10-2024 Miscellaneous Notes* Telephone Encounter - Elham Reid II - 02/19/2024 1:09 PM EST Spoke with patient, rescheduled EUS to 03/21/2024 at [facility]. 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 Please call pt back to reschedule. 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 Please call pt back to reschedule. [facility]12-04-2024 Telephone encounter Note* Telephone Encounter - Carmen Meadows RN - 02/13/2024 2:18 PM EST Images from the original note were not included. Spoke with patient and confirmed procedure arrival time 130 PM for EGD-EUS appointment. When you arrive please go to admitting/registration first, then you will be directed to the Endoscopy Dept.on the 2nd floor. If you have any questions about your appointment or your prep instructions please call [phone]. If you need to reschedule call [phone]. [facility]12-04-2024 Miscellaneous Notes* Telephone Encounter - Carmen Meadows RN - 02/13/2024 2:18 PM EST Images from the original note were not included. Spoke with patient and confirmed procedure arrival time 130 PM for EGD-EUS appointment. When you arrive please go to admitting/registration first, then you will be directed to the Endoscopy Dept.on the 2nd floor. If you have any questions about your appointment or your prep instructions please call [phone]. If you need to reschedule call [phone]. documented in this encounterWestern Reserve Hospital11-06-2024 Evaluation note* Diagnosis Onset Date Resolution Status Admit Date UTI (urinary tract infection) acute January 15 3:26pm Dysuria noneactive January 16, 2024 3:26pm [facility] Work Phone: 1(263) 890-384210-09-2024 History and physical note* Everett Dunlap MD - 12/19/2023 11:40 AM EDT Images from the original note were not included. Consultation requested by Dr. Horacio Erwin for an opinion regarding pancreatic lesion. My final recommendations will be communicated back to the requesting physician by way of shared medical record or fax. REASON FOR VISIT: Pancreatic cyst HPI: Afia Gutierres is a 68 year old female who presents on the request of Dr. Erwin for evaluation ofpancreatic cyst. She has chronic left upper quadrant [...] Does not drink alcohol. She is a widowand has 1 child who was present with her during this office visit. 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 Previous work [...] Comments Other Reaction(s): diarrhea, itching and rash Nxfurqy-Hye-Vcw Red* Unknown Other Reaction(s): Unknown Sulfamethoxazole-Tr* Unknown [...] Erwin. She used Dr. Was transferred to [facility]. 2. Weight loss - ICD9: 783.21, ICD10: [...] She is scheduled 02/14/2024 at 12:30 PM, [facility]. - EGD - THERAPEUTIC, EUS, OR TUBE INTERVENTIONS 4. Family history of colon cancer in father - ICD9: V16.0, ICD10: Z80.0 5. Smoker - ICD9: 305.1, ICD10: F17.200 She smokes half pack per day for many years. Everett Dunlap MD, FACP [facility]10-09-2024 History and physical note* Everett Dunlap MD - 12/19/2023 11:40 AM EDT Images from the original note were not included. Consultation requested by Dr. Horacio Erwin for an opinion regarding pancreatic lesion. My final recommendations will be communicated back to the requesting physician by way of shared medical record or fax. REASON FOR VISIT: Pancreatic cyst HPI: Afia Gutierres is a 68 year old female who presents on the request of Dr. Erwin for evaluation ofpancreatic cyst. She has chronic left upper quadrant [...] Does not drink alcohol. She is a widowand has 1 child who was present with her during this office visit. 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 Previous work [...] Comments Other Reaction(s): diarrhea, itching and rash Jbchudb-Dqd-Ioh Red* Unknown Other Reaction(s): Unknown Sulfamethoxazole-Tr* Unknown [...] Erwin. She used Dr. Was transferred to [facility]. 2. Weight loss [...] She is scheduled 02/14/2024 at 12:30 PM, [facility]. - EGD - THERAPEUTIC, EUS, OR TUBE INTERVENTIONS 4. Family history of colon cancer in father - ICD9: V16.0, ICD10: Z80.0 5. Smoker - ICD9: 305.1, ICD10: F17.200 She smokes half pack per day for many years. Everett Dunlap MD, FACP documented in this encounterWestern Reserve Hospital09-24-2024 Telephone encounter Note * Telephone Encounter - Beth Summers - 12/04/2023 10:02 AM EDT Spoke with patient. Unable to get a ride on 12/04, scheduled 12/18 Thank you Beth Summers PSS [facility]09-24-2024 Miscellaneous Notes* Telephone Encounter - Beth Summers - 12/04/2023 10:02 AM EDT Spoke with patient. Unable to get a ride on 12/04, scheduled 12/18 Thank you Beth Summers PSS * Telephone Encounter - Angela Monson RN - 12/03/2023 3:56 PM EDT MRI images available for review. Schedulers, please call pt to schedule OV in pancreas clinic as indicated below. Dr. Dunlap has availability 12/05/2023. Thank you, Angela Monson RN * Telephone Encounter - Everett Dunlap MD - 12/02/2023 8:47 PM EDT Awaiting MRCP images to be uploaded to [facility]. Schedule follow-up visit in my pancreas clinic in the next 1-2 months. Likely the patient does not need EUS giving stable small pancreatic cyst measuring 6 mm. Everett Dunlap MD * Telephone Encounter - Angela Monson RN - 11/30/2023 12:39 PM EDT Pt referred from Dr. Erwin for EUS [...] are uncomplicated colonic diverticula. [facility] encounter Note * Telephone Encounter - Angela Monson RN - 12/03/2023 3:56 PM EDT MRI images available for review. Schedulers, please call pt to schedule OV in pancreas clinic as indicated below. Dr. Dunlap has availability 12/05/2023. Thank you, Angela Monson RN [facility] Telephone encounter Note* Telephone Encounter - Everett Dunlap MD - 12/02/2023 8:47 PM EDT Awaiting MRCP images to be uploaded to [facility]. Schedule follow-up visit in my pancreas clinic in the next 1-2 months. Likely the patient does not need EUS giving stable small pancreatic cyst measuring 6 mm. Everett Dunlap MD [facility] Telephone encounter Note* Telephone Encounter - Angela Monson RN - 11/30/2023 12:39 PM EDT Pt referred from Dr. Erwin for EUS [...] an IPMN. There are uncomplicated colonic diverticula. [facility]04-05-[facility] History of Present illness Narrative* Carolina De Jesus RN - 06/15/2023 2:40 PM EDT Pt returned to CT holding post vertebroplasty [...] questions answered and both deny further needs. * Carolina De Jesus RN - 06/15/2023 11:35 AM EDT Pt arrived to CT holding ambulatory with [...] an active DRN-CC order on file at [facility]. Dr. Carbajal notified. 1222 Dr[address] Gonsalves notified pt ready to be seen. 1257 Dr. Ronal jiang, speaking to patient. Dr. Villeda aware of pt's wishes to remain DNR-CC. Also aware of bradycardia. 1300 Dr Gonsalves speaking to via phone. 1309 Dr. Villeda at [facility] for nerve block procedure. Time out performed. 1316 Nerve block performed 1324 Dr. Raven jiang to discuss procedure. Risks/benefits discussed, all questions answered. 1330 Pt to Special procedures via cart for procedure. [facility] Discharge instructions* Discharge Instructions* April Souza RN - 06/15/2023 1:43 PM [...] off in time, 5 to 10 days, doNOT scrub when showering. Do NOT use antibiotic [...] during normal business hours (Sunday-Sunday 8am-6pm) at [phone] and have them paged. You may also contact Dr. Carbajal office with any questions or concerns at [phone]. * Attachments The following attachments cannot be sent through Care Everywhere. * Vertebroplasty: Post-op (Haitian) * Sedation (Haitian) [facility] Evaluation note* Encounter Date Diagnosis Assessment Notes Treatment Notes Treatment Clinical Notes Mar, Compression fracture of T11 vertebra [...] referral for surgical evaluation for kyphoplasty at [facility]. Dr Iqbal is out of the office. [facility] Other 12-28-2023 Evaluation note* Encounter Date Diagnosis [...] and start weight bearing exercises as tolerated [facility] Other 12-19-2023 Evaluation note* Encounter Date Diagnosis [...] MRI of the lumbar spine at the [facility]. Discussion of new versus old in which [...] T12 vertebra, initial encounter (ICD-10 - S22.080A) [facility] Other 11-20-2023 Evaluation note* Encounter Date Diagnosis Assessment Notes Treatment Notes Treatment Clinical Notes Jan, Pancreatic cyst (ICD-10 - K86.2) [facility] Other 11-17-2023 Evaluation note* Encounter Date Diagnosis Assessment Notes Treatment Notes Treatment Clinical Notes Jan, Pancreatic cyst (ICD-10 - K86.2) [facility] Other 11-06-2023 Evaluation note* Encounter Date Diagnosis [...] sooner. Otherwise on his schedule on 02/01 [facility] 10-17-2023 Evaluation note* Encounter Date Diagnosis [...] pain is adequately controlled with present prescription. [facility] Other 10-16-2023 Evaluation note* Encounter Date Diagnosis Assessment Notes Treatment Notes Treatment Clinical Notes Dec, Moderate episode of recurrent major depressive disorder (ICD-10 - F33.1) [facility] Other 10-09-2023 History of Present illness Narrative* Libby Muñoz PA-C - 12/18/2022 1:00 PM EDT Subjective Ms. Gutierres is a 67-year-old female who is referred by Dr. Barskdale for a subcentimeter pancreatic cyst. She states [...] but prefers to have this done in [place] with Dr. Barksdale as she is unable to drive to a facility. Libby Muñoz PA-C documented in this [facility] Work Phone: [phone]) 889-450309-14-2023 Evaluation note* Encounter Date Diagnosis Assessment Notes Treatment Notes Treatment Clinical Notes Nov, Other closed fracture of proximal end of right tibia, initial encounter (ICD-10 - S82.191A) Rx for 16 wide wheelchair written. He needs the elevation leg accomodation and a cushion for her buttocks. She is dependent on for all her ADLs. She is non-weight [...] and change to a portable oxygen concentrator. [facility] Other 09-14-2023 Evaluation note* Encounter Date Diagnosis [...] POC setting at 2 via nasal cannula. [facility] Other 09-11-2023 Evaluation note* Encounter Date Diagnosis Assessment Notes Treatment Notes Treatment Clinical Notes Nov, Dysuria (ICD-10 - R30.0) [facility] Other 08-24-2023 Evaluation note* Encounter Date Diagnosis Assessment Notes Treatment Notes Treatment Clinical Notes Oct, Fibromyalgia (ICD-10 - M79.7) [facility] Other 08-15-2023 Evaluation note* Encounter Date Diagnosis [...] Reviewed OARRS report. Continue meds and treatment. [facility] Other 07-27-2023 Evaluation note* Encounter Date Diagnosis Assessment Notes Treatment Notes Treatment Clinical Notes Sep, Diverticular disease (ICD-10 - K57.90) [facility] Other 07-26-2023 Evaluation note* Encounter Date Diagnosis Assessment Notes Treatment Notes Treatment Clinical Notes Sep, Lumbar spondylosis (ICD-10 - M47.816) [facility] Other 06-29-2023 Evaluation note* Encounter Date Diagnosis Assessment Notes Treatment Notes Treatment Clinical Notes Aug, Diverticular disease (ICD-10 - K57.90) Patient reports constipation and she will try linzess 290 mg prescription sent to pharmacy RTO 3 months Aug, GERD (gastroesophageal reflux disease) (ICD-10 - K21.9) Aug, Pancreas cyst (ICD-10 - K86.2) Patient is to have an MRCP dont at [facility] ordered today [facility] Other 06-28-2023 Evaluation note* Encounter Date Diagnosis Assessment Notes Treatment Notes Treatment Clinical Notes Aug, Lumbar spondylosis (ICD-10 - M47.816) [facility] Other 06-20-2023 Evaluation note* Encounter Date Diagnosis [...] into present EMR for review by her financial services associate next week. [facility] Other 06-16-2023 Evaluation note* Encounter Date Diagnosis Assessment Notes Treatment Notes Treatment Clinical Notes Aug, COPD exacerbation (ICD-10 - J44.1) Discussed with patient exam and history is consistent with COPD exacerbation. Rapid COVID is negative in office. Will cover with azithromycin and prednisone burst. Continue maintenance and rescue inhaler as needed. May use Mucinex DM [id number]. Patient has follow-up with PCP next week. Advised to follow-up sooner if any rapidly increasing shortness of breath, wheezing, signs of respiratory distress. Patient verbalized understanding of treatment plan. Patient reports history of frequent yeast infections with antibiotic use. Requesting Diflucan. Dose sent. Advised should only take it develop symptoms. Patient verbalized understanding. Aug, Congestion of nasal sinus (ICD-10 - R09.81) [facility] Other 06-01-2023 Evaluation note* Encounter Date Diagnosis Assessment Notes Treatment Notes Treatment Clinical Notes Aug, Lumbar spondylosis (ICD-10 - M47.816) [facility] Other 05-25-2023 Evaluation note* Encounter Date Diagnosis Assessment Notes Treatment Notes Treatment Clinical Notes July, Chronic obstructive pulmonary disease with (acute) lower respiratory infection (ICD-10 - J44.0) Discussed prednisone could help her hip pain and her wheezing for a short term treatment July, Insomnia, idiopathic (ICD-10 - F51.01) d/c remeron start trazodone. f/u in 1 month [facility] Other 05-03-2023 Evaluation note* Encounter Date Diagnosis Assessment Notes Treatment Notes Treatment Clinical Notes July, Lumbar spondylosis (ICD-10 - M47.816) [facility] Other 04-11-2023 Evaluation note* Encounter Date Diagnosis [...] send in medication if needed. Follow-up with PRESCHOOL TEACHER'S ASSISTANT if no improvement of symptoms. Immediate evaluation in ER for signs/symptoms as discussed. Patient verbalizes understanding and is agreeable with treatment plan. [facility] Other 04-07-2023 Evaluation note* Encounter Date Diagnosis [...] blisters and ulcerations. May be worsened by LyNavarika [facility] Other 03-20-2023 Evaluation note* Encounter Date Diagnosis [...] - R53.83) Healthy diet and keep active [facility] Other 03-03-2023 Evaluation note* Encounter Date Diagnosis Assessment Notes Treatment Notes Treatment Clinical Notes May, Lumbar spondylosis (ICD-10 - M47.816) [facility] Other 03-03-2023 Evaluation note* Encounter Date Diagnosis Assessment Notes Treatment Notes Treatment Clinical Notes May, Acute bronchitis due to other specified organisms (ICD-10 - J20.8) [facility] Other 02-28-2023 Evaluation note* Encounter Date Diagnosis [...] hours as needed for cough and dyspnea [facility] Other 02-28-2023 Evaluation note* Encounter Date Diagnosis Assessment Notes Treatment Notes Treatment Clinical Notes Apr, Chronic obstructive pulmonary disease with (acute) exacerbation (ICD-10 - J44.1) [facility] Other 02-02-2023 Evaluation note* Encounter Date Diagnosis Assessment Notes Treatment Notes Treatment Clinical Notes Apr, Lumbar spondylosis (ICD-10 - M47.816) [facility] Other 01-04-2023 Evaluation note* Encounter Date Diagnosis Assessment Notes Treatment Notes Treatment Clinical Notes Mar, Lumbar spondylosis (ICD-10 - M47.816) [facility] Other 01-03-2023 Evaluation note* Encounter Date Diagnosis Assessment Notes Treatment Notes Treatment Clinical Notes Mar, Diverticular disease (ICD-10 - K57.90) continue dicyclomine as needed. Mar, Alternating constipation and diarrhea (ICD-10 - R19.8) start metamucil gummies every day. Mar, GERD (gastroesophageal reflux disease) (ICD-10 - K21.9) patient to continue pantoprazole [facility] Other 11-11-2022 Procedure [facility]09-30-2022 Evaluation note* Encounter Date Diagnosis Assessment Notes Treatment Notes Treatment Clinical Notes Nov, Lower abdominal pain (ICD-10 - R10.30) PATIENT STATES THAT SHE DOES HAVE BURNING. Nov, Constipation (ICD-10 - K59.00) PATIENT STATES MOVING BOWELS EVERYDAY PATIENT DID REDUCE THE DICYCLOMINE TO NEEDED WHN CONSTIPATED THIS MADE IT WORSE PATIENT IS ADVISED WE WILL START MOVANTIK [facility] Other 09-01-2022 Evaluation note* Encounter Date Diagnosis Assessment Notes Treatment Notes Treatment Clinical Notes Nov, GERD (gastroesophageal reflux disease) (ICD-10 - K21.9) [facility] Other 08-11-2022 NotePROCEDURE: XR HIP RT 2 3V W PELVIS COMPARISON: None. HISTORY: Injury of right hip region FINDINGS: BONES:No acute fracture or dislocation. Minimal degenerative osteoarthropathy of the hips SOFT TISSUES:Negative. No visible soft tissue swelling. EFFUSION:None visible. OTHER: Negative. IMPRESSION: No acute abnormality Electronically authenticated by: JANNA LAWTON Date: 2021-10-20 12:03[facility]06-27-2022 Evaluation note* Encounter Date Diagnosis Assessment [...] although I think that is less likely. [facility] Other 04-04-2022 Evaluation note* Encounter Date Diagnosis Assessment Notes Treatment Notes Treatment Clinical Notes Jun, LUQ abdominal pain (ICD-10 - R10.12) CONTINUE DICYCLOMINE 20 MG TID RTO 6-8 WEEKS Jun, Irritable bowel syndrome with diarrhea (ICD-10 - K58.0) Jun, Bloating (ICD-10 - R14.0) Jun, GERD (gastroesophageal reflux disease) (ICD-10 - K21.9) STOP OMEPRAZOLE [facility] Other 02-02-2022 Evaluation note* Encounter Date Diagnosis [...] Patient care instructions given in writting by [facility] Care At Home document. [facility] Other 11-11-2021 Evaluation note* Encounter Date Diagnosis Assessment Notes Treatment Notes Treatment Clinical Notes Jan, Irritable bowel syndrome with diarrhea (ICD-10 - K58.0) OBTAIN COLONOSCOPY FROM [facility] 06/2019Jan, Lower abdominal pain (ICD-10 - R10.30) STOP DICYCLOMINE PT TO REPORT PROGRESS Jan, Bloating (ICD-10 - R14.0) Jan, Rectal burning (ICD-10 - K62.89) [facility] Other 09-28-2021 Evaluation note* Encounter Date Diagnosis Assessment Notes Treatment Notes Treatment Clinical Notes Nov, Irritable bowel syndrome with diarrhea (ICD-10 - K58.0) Nov, Generalized abdominal pain (ICD-10 - R10.84) Nov, Abdominal bloating (ICD-10 - R14.0) Nov, History of ischemic colitis (ICD-10 - Z87.19) Nov, Other CT ABD /PELVIS START DICYCLOMINE 20 MG TID ROT 4-6 WEEKS Diarrhea material was printed [facility] Other Evaluation + Plan note No data available for this section [facility] evaluation noteNo InformationNort [employer] Other Evaluation noteNo assessment information available [facility] Work Phone: Evaluation note* Diagnosis 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 documented in this encounter [facility] Work Phone: Evaluation note* Diagnosis Compression fracture of T12 vertebra with delayed healing, subsequent encounter Other osteoporosis with current pathological fracture, vertebra(e), initial encounter for fracture (HCC) [facility] Diagnosis Onset Date Resolution Status Anxiety acute Right femoral fracture acute UTI (urinary tract infection) acute Vertebral compression fracture acute Fibromyalgia chronic Anxiety acute COPD exacerbation resolved [facility] Work Phone: Evaluation note* Diagnosis Onset Date Resolution Status Anxiety acute COPD exacerbation resolved Fibromyalgia chronic [facility] Work Phone: Evaluation note* Diagnosis Onset Date Resolution Status COPD exacerbation resolved Anxiety acute Right femoral fracture acute UTI (urinary tract infection) acute Vertebral compression fracture acute Fibromyalgia chronic [facility] Work Phone: Evaluation note* Diagnosis Onset Date Resolution Status Anxiety acute Right femoral fracture acute UTI (urinary tract infection) acute Vertebral compression fracture acute Fibromyalgia chronic Constipation acute GERD (gastroesophageal reflux disease) acute Pancreatic lesion acute [facility] Work Phone: Evaluation note* Diagnosis Pancreatic cyst- Primary Cyst and pseudocyst of pancreas documented in this encounter [facility] note* Diagnosis Chronic LUQ pain- Primary Abdominal pain, left upper quadrant Weight loss Loss of weight Pancreatic cyst Cyst and pseudocyst of pancreas Family history of colon cancer in father Smoker Tobacco use disorder documented in this encounter [facility] note* Diagnosis Onset Date Resolution Status Constipation acute GERD (gastroesophageal reflux disease) acute Pancreatic lesion acute [facility] Work Phone: Evaluation note* Diagnosis Onset Date Resolution Status Constipation acute GERD (gastroesophageal reflux disease) acute Pancreatic lesion acute Anxiety acute Pancreatic lesion acute Right femoral fracture acute Vertebral compression fracture acute COPD (chronic obstructive pulmonary disease) chronic Fibromyalgia chronic UTI (urinary tract infection) acute Dysuria noneactive [facility] Work Phone: Evaluation note* Diagnosis Pancreatic cyst Cyst and pseudocyst of pancreas documented in this encounter [facility] note* Diagnosis Pancreatic cyst (HCC)- Primary Cyst and pseudocyst of pancreas documented in this encounter [facility] general Narrative - Reported* Type Description Date [...] History Hep B 1972 Hospitalization History diverticulitis [facility] Other History general Narrative - Reported* Type [...] pain in Jan 2022 - non cardiac [facility] Other History general Narrative - ReportedNorth [employer] Other History general Narrative - Reported* Type [...] pain in Jan 2022 - non cardiac [place] [employer] Other Hospital Discharge instructions Additional Instructions DISCHARGE [...] if you have any problems. -Office number [phone] Work Phone: Hospital Discharge instructions No data available for this section [facility] Hospital Discharge instructionsAmbulatory Orders* Referral to Gastroenterology Time Frame: 11/26/23, Location: [facility] Work Phone: Progress note No data available for this section [facility] reason for referral (narrative)* Outpatient Procedure (Routine) - Pending Review Specialty Diagnoses / Procedures Referred By Costa macdonald Referred To Contact [facility] Diagnoses Pancreatic cyst Procedures EGD - THERAPEUTIC, EUS, OR TUBE INTERVENTIONS EGD INTRMURAL US NEEDLE ASPIRATE/[place] [address] [place] [address] [facility] Disease Prim [address] [place] [id number] Referral ID Status Reason Start Date Expiration Date Visits Requested Visits Authorized [id number] Pending Review Auto-Generat ed Referral 12/19/2023 12/18/2024 1 1 [facility] for referral (narrative)* Outpatient Procedure (Routine) - Closed Specialty Diagnoses / Procedures Referred By Costa macdonald Referred To Contact Diagnoses Pancreatic cyst Procedures EGD - THERAPEUTIC, EUS, OR TUBE INTERVENTIONS EGD INTRMURAL US NEEDLE ASPIRATE/[place] [address] [place] [address] [place] [id number] Referral ID Status Reason Start Date Expiration Date V isits Requested Visits Authorized [id number] Closed Auto-Generate d Referral 02/14/2024 04/11/2024 1 1 [facility])No reason for referral information availableAkron [facility] Work Phone: Reason for visit NarrativePAIN MANAGEMENT REFERRAL UPDAT[facility] Other reason for visit Narrative* Outpatient Procedure (Routine) - Closed Specialty Diagnoses / Procedures Referred By Contac t Referred To Contact Diagnoses Pancreatic cyst Procedures EGD - THERAPEUTIC, EUS, OR TUBE INTERVENTIONS EGD INTRMURAL US NEEDLE ASPIRATE/[place] [address] [place] [address] [facility] [address] [place] [address] Referral ID Status Reason Start Date Expiration Date V isits Requested Visits Authorized [id number] Closed Auto-Generate d Referral 02/14/2024 04/11/2024 1 1 [facility] Chief Complaint and Reason for Visit Chief Complaint Constipation, Abdomi nal Pain Chief Complaint Vaginal discharge Chief Complaint K86.2 Chief Complaint K86.2 dysuria Chief Complaint flank pain, dysuria Z87.81 Chief Complaint 4 Wk F/U Comp Fx Amb Documentation medication review Chief Complaint 4 Wk F/U Comp Fx Amb Documentation medication review Dysuria Chief Complaint Amb Documentation medication review R30.0 mental health issues [phone] head and chest cold since wed Reason for Visit Anxiety Right femoral fracture UTI (urinary tract infection) Vertebral compression fracture Fibromyalgia Anxiety COPD exacerbation Chief Complaint mental health issues [phone] head and chest cold since wed 3 [...] Complaint K86.2 follow up/MRI 3 month f/u Amb Documentation Poss UTI Reason for Visit Constipation GERD (gastroesophageal reflux disease) Pancreatic lesion Anxiety Pancreatic lesion Right femoral fracture Vertebral compression fracture COPD (chronic obstructive pulmonary disease) Fibromyalgia UTI (urinary tract infection) Dysuria Chief Complaint K86.2 follow up/MRI 3 month f/u Amb Documentation Poss UTI Dysuria Reason for Visit Constipation GERD (gastroesophageal reflux disease) Pancreatic lesion Anxiety Pancreatic lesion Right femoral fracture Vertebral compression fracture COPD (chronic obstructive pulmonary disease) Fibromyalgia UTI (urinary tract infection) Dysuria Chief Complaint Admit Date Amb Documentation January 08, 2024 9 :56am Poss UTI January 16, 2024 3 :26pm Dysuria R30. January 16, 2024 4 :21pm BH March 19, 2024 12 :00pm 3 month f/u March 28, 2024 1 2:59pm Reason for Visit Admit Date UTI (urinary tract infection) January 152023 3:26pm Dysuria January 16, 2024 3 :26pm Chief Complaint Admit Date 3 month f/u March 28, 2024 1 2:59pm 3 month f/u June 23, 2024 1:0 1pm Reason for Visit Admit Date Anxiety March 28, 2024 1 2:59pm Pancreatic lesion March 28, 2024 1 2:59pm Right femoral fracture March 28 12:59pm Sinusitis March 28, 2024 1 2:59pm Vertebral compression fracture March 122024 12:59pm COPD (chronic obstructive pulmonary dise ase) March 28, 2024 12:59pm Fibromyalgia March 28, 2024 1 2:59pm Chief Complaint Admit Date 3 month f/u June 23, 2024 1:0 1pm K86.9 July 05, 2024 8:5 1am Reason for Visit Admit Date Anxiety June 23, 2024 1:0 1pm Chronic thoracic back pain June 23, 2 025 1:01pm Pancreatic lesion June 23, 2024 1:0 1pm Right femoral fracture June 23, 2024 1:01pm Vertebral compression fracture June 1:01pm Chronic back pain June 23, 2024 1:0 1pm COPD (chronic obstructive pulmonary dise ase) June 23, 2024 1:01pm Fibromyalgia June 23, 2024 1:0 1pm Chief Complaint Admit Date K86.9 July 05, 2024 8:5 1am 3 month f/u September 23, 2024 1:03 pm Chief Complaint Admit Date K86.9 July 05, 2024 8:5 1am 3 month f/u September 23, 2024 1:03 pm follow up constipation October 01, 2024 1 :09pm Reason for Visit Admit Date Anxiety September 23, 2024 1:03 pm Chronic thoracic back pain September 23 1:03pm Pancreatic lesion September 23, 2024 1:03 pm Right femoral fracture September 23, 2024 1 :03pm Vertebral compression fracture September 1:03pm Chronic back pain September 23, 2024 1:03 pm COPD (chronic obstructive pulmonary dise ase) September 23, 2024 1:03pm Fibromyalgia September 23, 2024 1:03 pm Dyspepsia October 01, 2024 1:09 pm GERD (gastroesophageal reflux disease) J marilynn 2024 1:09pm Opioid-induced constipation October 01, 2 025 1:09pm Pancreatic lesion October 01, 2024 1:09 pm Family History Relationship Condition Age at Onset [...] fracture (HCC) Procedures IR VERTEBROPLASTY EACH ADDITIONAL LoGabby paulinoSHEILA - US CUST[employer]S AND BORDER OFFICER [address] [address] Referral ID Status Reason Start Date Expiration Date Visits Re quested Visits Authorized [id number] Open 05/29/2023 05/28/2024 1 1 Specialty Diagnoses / Procedures Referred By Costa macdonald Referred To Contact Radiology Diagnoses Compression fracture of T12 vertebra with delayed healing, subsequent encounter Other osteoporosis with current pathological fracture, vertebra(e), initial encounter for fracture (HCC) Procedures IR VERTEBROPLASTY CERVICOTHORACIC Gabby LoSHEILA - US CUST[employer]S AND BORDER OFFICER [address] [address] Referral ID Status Reason Start Date Expiration Date Visits Re quested Visits Authorized [id number] Open 05/29/2023 05/28/2024 1 1 Reason evaluate and treat f or compression fracture Diagnosis 1 Compression fracture of T11 vertebra with delayed healing, subsequent encounter (S22.080G) Referral Organization [facility] Referring Provider First Name Ana Referring Provider Last Name Kim Referring Provider Specialty Nurse Pract itioner Referred Organization [facility] [place]erred Address [address] [place] Referred Provider Specialty Intervention al Radiology Referral Priority Routine Reason evaluate and treat Diagnosis 1 Compression fracture of T11 vertebra with delayed healing, subsequent encounter (S22.080G) Referral Organization [facility] Referring Provider First Name Ana Referring Provider Last Name Kim Referring Provider Specialty Nurse Pract itioner Referred Organization [facility] Referred Address [address] [place],[address] Referred Provider Specialty DME Referral Priority Routine Reason evaluate and kwasi at Diagnosis 1 Age-related osteopor osis with current pathological fracture, initial encounter (M80.00XA) Referral Organization [facility] Referring Provider First Name Ana Referring Provider Last Name Kim Referring Provider Specialty Nurse Pract itioner Referred Organization [facility] Referred Provider Christo Lobo Referred Address [address] ,[place],[address] Referred Provider Specialty Pain Medicin e Referral Priority Routine General Notes Rebeca Pleitez 11:19:46 AM >received today, patient did just have MRI ordered but has already had CT of the Lumbar spine completed. Sending p2p at this time for scheduling Reason evaluate and kwasi at Diagnosis 1 Age-related osteopor osis with current pathological fracture, initial encounter (M80.00XA) Referral Organization [facility] Referring Provider First Name Ana Referring Provider Last Name Julio Referring Provider Specialty Nurse Pract itioner Referred Organization [facility] Referred Provider Rebeca Munguia Referred Address [address] [place],[address] Referred Provider Specialty Nurse Prackatarzyna tioneradha Referral Priority Routine General Notes Rebeca Pleitez 02:57:56 PM >received today, sending p2p at this time for scheduling Reason 01/23/23 Aleksey off ice - lumbar compression fracture - imaging at [facility] Diagnosis 1 Compression fracture of lumbar vertebra, unspecified lumbar vertebral level, initial encounter (S32.000A) Referral Organization [facility] Dashbell marcell Referring Provider First Name Nettie Referring Provider Last Name Kathy Referring Provider Specialty [facility] Referred Organization [facility] Referred Provider Robin Flannery Referred Address ,[place], [place],[address] Referred Provider Specialty Orthopedic S urgery Referral [...] - lumbar compression fracture - imaging at [facility] Diagnosis 1 Compression fracture of lumbar vertebra, unspecified lumbar vertebral level, initial encounter (S32.000A) Referral Organization [facility] marcell Referring Provider First Name Nettie Referring Provider Last Name Kathy Referring Provider Specialty [facility] Referred Organization [facility] Referred Provider Robin Flannery Referred Address ,[place], [place],[address] Referred Provider Specialty Orthopedic S urgery Referral Priority Routine General Notes Avajefferson Mirna 04:32:13 PM >received today, attachments made, notes [...] IR VERTEBROPLASTY CERVICOTHORACIC Gabby Lo, SHEILA - [employer] [address] [place] [address] Referral ID Status Reason Start Date Expiration Date Visits Re quested Visits Authorized [id number] Open 05/29/2023 05/28/2024 1 1 Reason Comments Procedure Referred for EUS---> needs OV first Reason Comments New Patient Evaluation Reason Comments Follow Up Tests Results Cytology---->rec ommend MRCP in [address] Erwin Care Teams (unrecognized sec tion and content) Team Status: Active Member Role Status Dates Nettie Iqbal MD Primary Care Provider Active Team Status: Inactive Member Role Status Dates Nettie Iqbal MD Primary Care Provide r, Attending Provider Active Start: March 28, 2024 End: March 28, 2024 Team Status: Inactive Member Role Status Dates Nettie Iqbal MD Primary Care Provide r, Attending Provider Active Start: June 23, 2024 End: June 23, 2024 Team Status: Active Member Role Status Dates Nettie Iqbal MD Primary Care Provider Active Start: January 03, 2024 Telly Bass MD Attending Provider Active St art: January 03, 2024 Team Status: Active Member Role Status Dates Nettie Iqbal MD Primary Care Provider Active Start: January 08, 2024 Kati Fuentes CMA Attending Provider Active Start: January 08, 2024 Team Status: Inactive Member Role Status Dates Nettie Iqbal MD Primary Care Provider Active Start: January 16, 2024 End: January 16, 2024 Lilia Barry APRN Attending Provider Active S tart: January 16, 2024 End: January 16, 2024 Team Status: Inactive Member Role Status Dates Lilia Barry APRN Attending Provider Active S tart: January 16, 2024 End: January 16, 2024 Team Status: Active Member Role Status Dates Nettie Iqbal MD Primary Care Provider Active Start: March 19, 2024 Sam Hare MD Attending Provider Active Start: March 19, 2024 Team Status: Inactive Member Role Status Dates [...] Pruitt DO Primary Care Provider Active Kiran Barksdale MD Attending Provider Active Team Status: Active Member Role Status Dates Phani Pruitt DO Primary Care Provider Active Team Status: Inactive Member Role Status Dates Vanessa Sanford APRN Attending Provider Active Team Status: Inactive Member Role Status Dates Kiran Barksdale MD Attending Provider Active Nettie Iqbal MD Primary Care Provider Active Team Status: Inactive Member Role Status Dates Nettie Iqbal MD Attending Provider Active Team Status: Inactive Member Role Status Dates Nettie Iqbal MD Attending Provider Active PHYSICIAN NO FAMILY Primary Care Provider Active Team Status: Inactive Member Role Status Dates Nettie Iqbal MD Primary Care Provider Active ANUSHKA Felder Attending Provider Active Senior Lead Java Developer Relationship Specialty Start Date End Date Nettie Iqbal MD [address] [place] [address] PCP - General Family Medicine 06/13/23 Team [...] November 26, 2023 End: November 26, 2023 Senior Lead Java Developer Relationship Specialty Start Date End Date Nettie Iqbal MD [address] [place] [address] PCP - General Family Medicine 11/30/23 Senior Lead Java Developer Relationship Specialty Start Date End Date Nettie Iqbal MD [address] [place] [id number] PCP - General Family Medicine 11/30/23 Team [...] December 25, 2023 End: December 25, 2023 Team Status: Active Member Role Status Dates Nettie Iqbal MD Primary Care Provider Active Start: December 12, 2023 Phani Pruitt DO Attending Provider Active Sta rt: December 12, 2023 Team Status: Active Member Role Status Dates Nettie Iqbal MD Primary Care Provider Active Start: January 03, 2024 Sam Hare MD Attending Provider Active Start: January 03, 2024 Senior Lead Java Developer Relationship Specialty Start Date End Date Nettie Iqbal MD [address] [place] [address] PCP - General Family Medicine 11/30/23 Senior Lead Java Developer Relationship Specialty Start Date End Date Nettie Iqbal MD [address] [place] [address] PCP - General Family Medicine 11/30/23 Senior Lead Java Developer Relationship Specialty Start Date End Date Nettie Iqbal MD [address] [place] [address] PCP - General Family Medicine 11/30/23 Senior Lead Java Developer Relationship Specialty Start Date End Date Nettie Iqbal MD [address] [place] [address] PCP - General Family Medicine 11/30/23 Senior Lead Java Developer Relationship Specialty Start Date End Date Nettie Iqbal MD [address] [place] [address] PCP - General Family Medicine 11/30/23 Team Status: Inactive Member Role Status Dates Nettie Iqbal MD Primary Care Provider Active Start: July 05, 2024 End: July 05, 2024 Horacio Erwin MD Attending Provider Active S tart: July 05, 2024 End: July 05, 2024 Senior Lead Java Developer Relationship Specialty Start Date End Date Nettie Iqbal MD [address] [place] [address] PCP - General Family Medicine 11/30/23 Team Status: Active Member Role Status Dates Everett Dunlap Specialist Active Nettie Iqbal MD Primary Care Provider Active Team Status: Active Member Role Status Dates Nettie Iqbal MD Primary Care Provider Active Start: August 21, 2024 Jaymie Duncan NP-C Attending Provider Active St art: August 21, 2024 Team Status: Inactive Member Role Status Dates Nettie Iqbal MD Primary Care Provider Active Start: September 23, 2024 End: September 23, 2024 Nettie Iqbal MD Attending Provider Active St art: September 23, 2024 End: September 23, 2024 Team Status: Inactive Member Role Status Dates Nettie Iqbal MD Primary Care Provider Active Start: October 01, 2024 End: October 01, 2024 Obed Lima APRN Attending Provider Active Start: October 01, 2024 End: October 01, 2024 Goals (unrecognized section and content) Goals may be documented in a n alternate section INFORMATION SOURCE (unrecogn ized section and content) DATE CREATED AUTHOR [facility]20[facility] DATE CREATED AUTHOR AUTHOR'S ORGANIZ ATION 12/27/2022 [facility] DATE CREATED AUTHOR AUTHOR'S ORGANIZ ATION 01/29/2023 [facility] DATE CREATED AUTHOR AUTHOR'S ORGANIZ ATION 06/14/2023 [facility] DATE CREATED AUTHOR AUTHOR'S ORGANIZ ATION 06/19/2023 [facility] [place] DATE CREATED AUTHOR AUTHOR'S ORGANIZ ATION 03/25/2024 [facility] DATE CREATED AUTHOR AUTHOR'S ORGANIZ ATION 07/06/2024 [facility] DATE CREATED AUTHOR AUTHOR'S ORGANIZ ATION 07/23/2024 [facility] DATE CREATED AUTHOR AUTHOR'S ORGANIZ ATION 09/27/2024 [facility] Source Comments (unrecognize d section and content) In the event this informatio n is protected by the Federal Confidentiality of Alcohol and Drug Abuse Patient Records regulations: The Federal rules restrict any use of the information to criminally investigate or prosecute any alcohol or drug abuse patient.[facility] the event this information is protected by the Federal Confidentiality of Alcohol and Drug Abuse Patient Records regulations: The Federal rules restrict any use of the information to criminally investigate or prosecute any alcohol or drug abuse patient.[facility] the event this information is protected by the Federal Confidentiality of Alcohol and Drug Abuse Patient Records regulations: The Federal rules restrict any use of the information to criminally investigate or prosecute any alcohol or drug abuse patient.[facility] the event this information is protected by the Federal Confidentiality of Alcohol and Drug Abuse Patient Records regulations: The Federal rules restrict any use of the information to criminally investigate or prosecute any alcohol or drug abuse patient.[facility] the event this information is protected by the Federal Confidentiality of Alcohol and Drug Abuse Patient Records regulations: The Federal rules restrict any use of the information to criminally investigate or prosecute any alcohol or drug abuse patient.[facility] the event this information is protected by the Federal Confidentiality of Alcohol and Drug Abuse Patient Records regulations: The Federal rules restrict any use of the information to criminally investigate or prosecute any alcohol or drug abuse patient.[facility] the event this information is protected by the Federal Confidentiality of Alcohol and Drug Abuse Patient Records regulations: The Federal rules restrict any use of the information to criminally investigate or prosecute any alcohol or drug abuse patient.[facility] the event this information is protected by the Federal Confidentiality of Alcohol and Drug Abuse Patient Records regulations: The Federal rules restrict any use of the information to criminally investigate or prosecute any alcohol or drug abuse patient.[facility] the event this information is protected by the Federal Confidentiality of Alcohol and Drug Abuse Patient Records regulations: The Federal rules restrict any use of the information to criminally investigate or prosecute any alcohol or drug abuse patient.[facility] the event this information is protected by the Federal Confidentiality of Alcohol and Drug Abuse Patient Records regulations: The Federal rules restrict any use of the information to criminally investigate or prosecute any alcohol or drug abuse patient.[facility] FOR RECORDS PERTAINING TO PATIENTS WHO [...] THE PRIMARY CLINICAL RECORDS. [facility] [employer] [facility]. provides no warranty or guarantee of the accuracy or completeness of information in this document.
--- NOTE | 2024-10-23 13:04 | P.CN_ITS ---
Consult Note: HPI Data of Consult Patient: known to practice within the last 3 years Consult date: 10/23/24 Requesting Physician: Jaymie Duncan NP Primary Care Provider: Yolanda Chavez MD Consult Narrative Reason for consult: back pain Narrative: Afia Maxwell a pleasant 69 year old female presents for evaluation of chronic upper and lower back pain, hx of extensive compression fractures and scoliosis. pain 8/10 increasing to 10/10 with activity and lifting. utilizing norco, tylenol, baclofen lyrica through PCP with mild relief without side effects. has failed > 6 weeks of PT/HEP, heat, ice, tylenol and cannot take NSAIDs due to GI upset. recently underwent thoracic/lumbar xrays and MRI, see EHR and paper chart for further details. since last visit denies falls/injury. recently underwent bilateral T7-8 T8-9 MBB #1 and #2 with 80% improvement in pain while anesthetized. pre-op pain up to 10/10 post op pain 1-2/10 for at least 4 hours. pt noted significant improvement in pain with cleaning, doing dishes, laundry, and making the bed cc:: CC: Jaymie Duncan NP Review of Systems ROS Musculoskeletal Reports: back pain and joint pain PFSH [facility], [facility] Medical History (Updated 09/04/24 @ 13:27 by Jaymie Duncan NP) Fall ?W19.XXXA - Unspecified fall, initial encounter (ICD-10) Fracture, tibia ?S82.209A - Unspecified fracture of shaft of unspecified tibia, initial encounter for closed fracture (ICD-10) Compression fracture Compression fracture of lumbar vertebra with routine healing ?S32.000D - Wedge compression fracture of unspecified lumbar vertebra, subsequent encounter for fracture with routine healing (ICD-10) Compression fracture of thoracic vertebra with routine healing ?S22.000D - Wedge compression fracture of unspecified thoracic vertebra, subsequent encounter for fracture with routine healing (ICD-10) Dyslipidemia ?E78.5 - Hyperlipidemia, unspecified (ICD-10) Venous insufficiency ?I87.2 - Venous insufficiency (chronic) (peripheral) (ICD-10) Chronic bronchitis with productive mucopurulent cough ?J41.1 - Mucopurulent chronic bronchitis (ICD-10) Cervical spondylosis ?M47.812 - Spondylosis without myelopathy or radiculopathy, cervical region (ICD-10) Osteoporosis ?M81.0 - Age-related osteoporosis without current pathological fracture (ICD- 10) COPD (chronic obstructive pulmonary disease) ?J44.9 - Chronic obstructive pulmonary disease, unspecified (ICD-10) Hypoxia ?R09.02 - Hypoxemia (ICD-10) Thoracic spondylosis ?M47.814 - Spondylosis without myelopathy or radiculopathy, thoracic region (ICD-10) Lumbar spondylosis ?M47.816 - Spondylosis without myelopathy or radiculopathy, lumbar region (ICD-10) Pneumothorax ?J93.9 - Pneumothorax, unspecified (ICD-10) Hepatitis ?K75.9 - Inflammatory liver disease, unspecified (ICD-10) GI bleed ?K92.2 - Gastrointestinal hemorrhage, unspecified (ICD-10) Upper back pain ?M54.9 - Dorsalgia, unspecified (ICD-10) Neck pain ?M54.2 - Cervicalgia (ICD-10) Low back pain ?M54.50 - Low back pain, unspecified (ICD-10) Osteoarthritis ?M19.90 - Unspecified osteoarthritis, unspecified site (ICD-10) Anxiety ?F41.9 - Anxiety disorder, unspecified (ICD-10) TIA (transient ischemic attack) ?G45.9 - Transient cerebral ischemic attack, unspecified (ICD-10) Diverticulitis ?K57.92 - Diverticulitis of intestine, part unspecified, without perforation or abscess without bleeding (ICD-10) Irritable bowel ?K58.9 - Irritable bowel syndrome without diarrhea (ICD-10) Ulcerative colitis ?K51.90 - Ulcerative colitis, unspecified, without complications (ICD-10) Hiatal hernia ?K44.9 - Diaphragmatic hernia without obstruction or gangrene (ICD-10) Acid reflux ?K21.9 - Gastro-esophageal reflux disease without esophagitis (ICD-10) Chronic cough ?R05.3 - Chronic cough (ICD-10) Former smoker ?Z87.891 - Personal history of nicotine dependence (ICD-10) COPD (chronic obstructive pulmonary disease) ?J44.9 - Chronic obstructive pulmonary disease, unspecified (ICD-10) Emphysema lung ?J43.9 - Emphysema, unspecified (ICD-10) Angina at rest ?I20.8 - Other forms of angina pectoris (ICD-10) Surgical History H/O carpal tunnel repair ?Z98.890 - Other specified postprocedural states (ICD-10) H/O kyphoplasty ?Z98.890 - Other specified postprocedural states (ICD-10) History of hysterectomy ?Z90.710 - Acquired absence of both cervix and uterus (ICD-10) Family History Mother Family history of CHF (congestive heart failure) Family history of COPD (chronic obstructive pulmonary disease) Family history of diabetes mellitus Family history of stroke Grandmother Family history of cancer Family history of diabetes mellitus Social History Within the past year, how often did you have a drink containing alcohol: never Within the past year, how many standard drinks containing alcohol did you have on a typical day: 1 or 2 Within the past year, how often did you have six or more drinks on one occasion: never Total score: 0 Score interpretation: A score less than 3 is consistent with normal alcohol consumption. Smoking status: Former smoker Non-prescribed substance use: denies use Previous occupational history: retired Highest level of school completed/degree received: high school graduate Are you now , , , , never or living with a partner: In a typical week, how many times do you talk on the telephone with family, friends, or neighbors: 3 or more times per week How often do you get together with friends or relatives: 3 or more times per week How often do you attend jehovah's witness or jewish services: never Do you belong to any clubs or organizations such as jehovah's witness groups unions, fraternal or athletic groups, or school groups: no Total score: 1 Score interpretation: A score of less than or equal to 1 indicates the most socially isolated. Little interest or pleasure in doing things: not at all Feeling down, depressed, or hopeless: not at all Feel stressed/tense/nervous/anxious/difficulty sleeping: not at all Do you think of yourself as: straight/heterosexual Gender Identity: female Meds Home Medications and Allergies Home Medications ?Medication ?Instructions ?Recorded ?Confirmed ?Type albuterol sulfate 90 mcg/actuation 2 inh inhalation Q4 H PRN shortness 09/06/22 10/20/24 History aerosol inhaler of breath or wheezing dicyclomine 20 mg tablet 20 mg PO QID 09/06/22 History hydrocodone 5 mg-acetaminophen 325 1 tab PO TID PRN pa in 09/06/22 10/20/24 History mg tablet pantoprazole 40 mg tablet,delayed 40 mg PO DAILY 09/0610/20/24 History release trazodone 50 mg tablet 200 mg PO BEDTIME PRN sleep 09/06/22 10/20/24 History escitalopram oxalate 10 mg tablet 10 mg PO DAILY 01/1310/20/24 History (Lexapro) pregabalin 150 mg capsule (Lyrica) 150 mg PO BID 01/1310/20/24 History ibandronate 150 mg tablet 150 mg PO .monthly 08/07/24 10/20/24 History baclofen 5 mg tablet 5 mg PO TID 09/25/24 5 History naloxegol 12.5 mg tablet (Movantik) 12.5 mg PO DAILY 0 10/23/24 10/23/24 History Allergies Allergy/AdvReac Type Severity Reaction Status Date / Time sulfamethoxazole (From Allergy Mild Diarrhea Verified 10/20/24 11:25 Bactrim) trimethoprim (From Bactrim) Allergy Mild Diarrhea Verified 10/20/24 11:25 ketorolac (From Toradol) Allergy Unknown Verified 10/20/24 11:25 NSAIDS (Non-Steroidal Allergy Unknown Verified 10/20/24 11:25 Anti-Inflamma rofecoxib (From Vioxx) Allergy Unknown Verified 10/20/24 11:25 varenicline (From Chantix) Allergy Unknown Verified 10/20/24 11:25 Exam Narrative Exam Narrative: diffuse hyperalgesias generalized tenderness noted to T6-L5, bilateral SI joint tenderness, +SLR, paresthesias to BLE, R<L Constitutional Documenting provider has reviewed patient's vital signs: yes Common normals: no apparent distress, oriented x3, healthy appearing, alert and well nourished General appearance: cooperative Nutritional appearance: cachectic and thin HENMT Common normals: normocephalic, hearing grossly normal bilaterally and moist oral mucous membranes Head and scalp: normocephalic Eye Common normals: PERRL Pupil: PERRL Neck & C-Spine Common normals: full ROM General: normal visual inspection Chest Common normals: inspection of chest normal Respiratory Common normals: normal respiratory effort, no retractions and no use of accessory muscles Back & Pelvis Thoracic spine/upper back: ROM limited, pain with ROM, thoracic spinal tenderness, paraspinal muscle tenderness and kyphosis present Neuro Common normals: oriented x3 Sensorium/orientation: alert Gait (neuro): assistive device used walker Psych Common normals: mental status grossly normal, thought process normal, cooperative, affect normal, speech normal and activity/motor behavior normal Speech: normal speech Thought process: normal thought process Results Additional Findings Additional findings: If on a controlled substance or opioids, I have checked an [place]AR[place] report on this patient and there are no aberrancies noted in the prescribing history.??If on a controlled substance or opioid a drug screen was completed and reviewed within the last year, and if there has not been a drug screen completed we ordered one today to monitor higher risk, state monitored pain medication use. As part of providing excellent, safe, comprehensive care, the following was completed at our patient's visit: 1. A medication reconciliation and review to ensure accurate knowledge of curre nt/active medications, including asking our patients to inform us about any vimd-jln-kovgbdg medications or herbal remedies/nutritional supplements/alternative remedies. 2. A review to specifically ensure our patients have had annual screening for screening for depression, screening for tobacco use, and screening for unhealthy alcohol use. For concerning screenings had a discussion with the patient, provided patient education, and recommended follow-up with primary care provider when appropriate. If patient noted with a risk of falling, they received education on strength, gait, and balance training to prevent future risk of falling. Portions of this note may have been carried over from the previous visit and updated as appropriate. Please note this office utilizes paper charting in addition to the electronic medical record. A list of current medications, vitals, and PMH is available there as the clinical staff outside of myself do not have access to [employer] charting during the clinic day operations. As part of providing quality comprehensive care the current medications, vitals, and PMH were reviewed in the paper chart. Assessment and Plan Assessment and Plan (1) Thoracic spondylosis: Assessment and Plan: The patient has had over 3 months of moderate to severe thoracic and lumbar pain with functional impairment and inadequate response to conservative care including NSAIDS (unless there are contraindication such as concurrent blood thinners), multiple oral or topical pain medications, and home exercise program/physical therapy.? Patient has completed >6 weeks of guided home exercise program and/or formal physical therapy program without relief of their symptoms.? The Oswestry Disability Index was completed, and the patient scored a 76%.? The patient noted the following:?? moderate to severe pain impacting ADLs, sitting, standing, walking, sleeping, social life, travel We discussed the risks and benefits of the procedure with the patient, and we are NOT planning on using sedation as outlined in the guidelines from Medicare unless there is a documented reason that sedation would be strongly recommended.?? ?The procedure will be completed with fluoroscopic guidance.? (2) Thoracogenic scoliosis, thoracolumbar region: (3) Lumbar spondylosis: (4) Failed back syndrome: (5) Lumbar stenosis with neurogenic claudication: Plan 69 year old female with chronic severe upper and lower back pain, extensive hx of compressions fractures and osteoporosis. recent thoracic and lumbar xrays/MRIs consistent with significant thoracic/lumbar scoliosis and degen erative changes, mild stenosis of lumbar spine. at this time pt would like to address chronic upper back pain. proceed with right then left T7=8 T8-9 facet RFA for facet mediated thoracic pain. continue current medications, risks vs benefits reviewed. f/u 1 month after RFA complete
== END 2024-10-23 12:42 | disposition home or self-care (01) ==
LOC: PM 12:41
PROVIDERS: PCP Family Medicine; Visit Provider Nurse Practitioner
DX: M47.814 Spondylosis without myelopathy or radiculopathy, thoracic region (principal); M41.35 Thoracogenic scoliosis, thoracolumbar region; M47.816 Spondylosis without myelopathy or radiculopathy, lumbar region; M96.1 Postlaminectomy syndrome, not elsewhere classified; M48.062 Spinal stenosis, lumbar region with neurogenic claudication
CPT/HCPCS: G0463

== ENCOUNTER 2024-11-03 08:20 | Day surgery (SDC) | payer MEDICARE, SELFPAY ==
--- OUTSIDE RECORDS SUMMARY | 2024-11-03 08:24 | XMS_ITS | Encounter Summary ---
Author Organization [facility] Address [address], [address] [place] [address] Care Team Providers Care Foundry Melt Supervisor Name Role Phone Yolanda Chavez MD Primary Care Provider [phone] Encounter Details Date Type Department Care Team (Late st Contact Info) Description 06/18/2023 Telephone [facility] [address] [place], [place] [id number] Jacque Estevez RN Social History Tobacco Use [...] on filedocumented in this encounter Care Teams Foundry Melt Supervisor Relationship Specialty Start Date End Date Yolanda Chavez MD [address] [place] [id number] PCP - General Family Medicine 06/13/23 documented as of this encounter
--- OUTSIDE RECORDS SUMMARY | 2024-11-03 08:24 | XMS_ITS | Clinical Summary ---
Author Organization [facility] Address [address] [place] [address] Care Team Providers Care Mosaicist Name Role Phone Yolanda Chavez MD Primary Care Provider [phone] Allergies Active Allergy Reactions Criticality Noted Date [...] 25 MG tablet 3 Active HYDROcodone-richelle taminophen ([place]) 10-325 MG tablet Take 1 tablet by [...] , 12/24/2021, 11/28/2021, Additional history exists Insurance [facility] MEDICARE ADVANTAGE Care Teams Mosaicist Relationship Specialty Start Date End Date Yolanda Chavez MD PCP - General Family Medicine 11/22/22
--- OUTSIDE RECORDS SUMMARY | 2024-11-03 08:25 | XMS_ITS | Clinical Summary ---
Author Organization [facility] Address [address] [place] [address] Care Team Providers Care Farm Product Purchaser Name Role Phone Yolanda Chavez MD Primary Care Provider [phone] Allergies Active Allergy Reactions Criticality Noted Date Comments Cefdinir Other: See Comments 06/22/2023 Ibuprofen Unknown 06/22/2023 Nsaids (Non-Steroidal Anti-Inflammatory Drug) Other: See Comments 05/15/2023 Other Reaction(s): diarrhea, itching and rash Enwbcsn-Kxf-Byw Reductase Inhibitors Unknown 01/23/2023 Other Reaction(s): Unknown [...] is lower risk 4 12/19/2023 Data from: https://www.neighborhoodatlas.medicine.[facility].edu/. Last address used for calculation [address] [...] Res ult from Last 3 Months Insurance [facility] MEDICARE Care Teams Farm Product Purchaser Relationship Specialty [place] [address] [place] [id number] PCP - General Family Medicine 11/30/23
--- OUTSIDE RECORDS SUMMARY | 2024-11-03 08:25 | XMS_ITS | Patient Health Record ---
Author Organization [facility] Address [address] [place] [address] Care Team Providers Care Tape Cutting Machine Operator Name Role Phone Jayesh Hummel MD Primary Care Provider Paco Romeo Unavailable [phone] Allergies Allergen (clinical drug ingredient) Drug/Non Drug [...] Problem Status W/U Status Risk Notes Problem [id number] Closed fracture of right tibial plateau, initial encounter (S82.141A) Active confirmed Problem [id number] Closed disp bicondylar fracture of right tibia with routine healing (S82.141D) Active confirmed Plan Of Treatment Pending Test Test Name Order Date DME TROM brace 12/04/2022 Insurance Providers Payer Name Payer Address Payer Phone Subscriber Number Group Number Insured Name Patient Relationship to Insured Coverage Start Date Coverage End Date Medicare [employer] [address] [address] [place] [address] [id number] TYRESE GUTIERRES Self - patient is the [...]
--- OUTSIDE RECORDS SUMMARY | 2024-11-03 08:25 | XMS_ITS | Clinical Summary ---
Author Organization [facility] Address [address], [address] [place] [address] Care Team Providers Care Child Welfare Caseworker Name Role Phone Yolanda Chavez MD Primary Care Provider [phone] Allergies Active Allergy Reactions Criticality Noted Date [...] this topic Medical Devices Implanted Type Area Marine Electrician Helper Device Identifier Shelf Expiration Date Model / Serial / Lot Cement Bne 20 Gm Hi Visc Radiopaque Vertaplex Hv - [id number] Implanted:Qty: 1 on 06/15/2023 by Ricardo Carbajal MD at [facility] Cement Back JENNIFER MICHELL-WD 11/09/2024 [id number] / / [id number] Description:Thoracic 11 & th oracic 12 Insurance [facility] MEDICARE Care Teams Child Welfare Caseworker Relationship Specialty Start Date End Date Yolanda Chavez MD [address] [place] [address] PCP - General Family Medicine 06/13/23
--- OUTSIDE RECORDS SUMMARY | 2024-11-03 08:25 | XMS_ITS | Encounter Summary ---
Author Organization [facility] Address [address] [place] [address] Phone Care Team Providers Care Turkey Boner Name Role Phone Unavailable Primary Care Provider Unavailabl e Encounter Details Date Type Department Care Team (Late st Contact Info) Description 12/01/2022 Scanned Document [facility] [id number] [place] [address] Conversion, Onbase Social History Tobacco Use Types [...]
--- OUTSIDE RECORDS SUMMARY | 2024-11-03 08:25 | XMS_ITS | Clinical Summary ---
Author Organization [facility] Address [address] [place] [address] Phone Care Team Providers Care Manager Story Name Role Phone Unavailable Primary Care Provider [...]
--- OUTSIDE RECORDS SUMMARY | 2024-11-03 08:25 | XMS_ITS | Clinical Summary ---
Author Organization [facility] [facility] Address [facility] [id number] [address] [place] [address] Care Team Providers Care Cookie Breaker Name Role Phone RajPhani Liza HAWK Primary Care Provider [phone] Allergies Active Allergy Reactions Criticality Noted Date [...] Most Recently Relevant to Health Maintenance Insurance [facility] MEDICARE Care Teams Cookie Breaker Relationship Specialty Start Date End Date Phani Anthony DO [address] [place] [address] PCP - General 09/21/17
--- OUTSIDE RECORDS SUMMARY | 2024-11-03 08:37 | XMS_ITS | CCD ---
Author Organization [facility] Care Team Providers Care Sight Effects Specialist Name Role Phone Janna Pina Unavailable Shira Cunningham Unavailable Ambrose Torres Unavailable Kiran Barksdale Unavailable [phone] DO Phani Pruitt Primary Care Provider MD [...] Unavailable ZOE ., DR ARCHULETA Attending Unavailable OZE ., DR ARCHULETA Admitting Unavailable ZOE ., [...] BALL, DR COHEN Consulting Unavailable BALL, DR CHOEN Attending Unavailable ZIEBER, DR CELIA Caraballo Consulting [...] DR QUICK Attending Unavailabl e BALL, DR CHOEN Primary Care Unavailable SHAKIRA PINEDA Consulting Unavailable [...] Unavailable MD Kiran Barksdale Attending Provider MD Nettie Iqbal Primary Care Provider [phone] MD Nettie Iqbal Attending Provider [phone] Unavailable Primary Care Provider UnavailPHANI Lake Primary [...] Care Unavailable MD Nettie Iqbal Attending Provider [phone] MD Horacio Erwin Attending Provider MD Nettie Iqbal Primary Care Provider Nettie Iqbal MD Primary Care Provider [phone] MD Sam Hare Attending Provider MD Horacio Erwin Attending Provider MD Nettie Iqbal Primary Care Provider MD Sam Hare Attending Provider [phone] SHEILA Barry Attending Provider JACI PERAZA Attending Unavailable JUAN C, KALALED Referring Unavailable NETTIE IQBAL Primary Care Unavailable Lilia Barry APRN Attending Provider Nettie Iqbal MD Primary Care Provider Sam Hare MD Attending Provider Nettie Iqbal MD Primary Care Provider [phone] Horacio Erwin MD Attending Provider Lilia Barry Attending Unavailable Lilia Barry Admitting Unavailable Horacio Erwin Attending Unavailable Horacio Erwin Admitting Unavailable Nettie Iqbal Primary Care Unavailable Nettie Iqbal Primary Care Unavailable Horacio Erwin Attending Unavailable Horacio Erwin Admitting Unavailable JUAN C, KHALED Attending Unavailable FARIDA NETTIE E Primary Care Unavailable PerlaJaymie Kim Attending Provider [phone] Nettie Iqbal MD Attending Provider [phone] Obed Lima APRN Attending Provider Ramos ROOT, Vickey Winkler Attending Unavailable Ramos ROOT, Vickey Winkler Attending Unavailable Allergies Allergy Classification Reported Allergen(s) Allergy Type Date of Onset Reaction(s) Facility (20 sources) cefdinir; Translations: [CEFDINIR] Drug Allergy Other: See Comments [facility] (20 sources) Ketorolac Drug Allergy Unknown, Diarrhea [facility] (20 sources) varenicline Drug Allergy 018 Unknown, Muscle Pain [facility] (20 sources) vioxx, antiinflammatories Propensity to adverse reactions Unknown, Hives [facility] (20 sources) Statins Support Drug allergy Unknown [facility] Other (9 sources) varenicline; Translations: [Chantix] Drug Allergy Unknown [facility] Repository (3 sources) Ketorolac Drug Allergy Diarrhea [facility] Other (20 sources) Sulfamethoxazole / Trimethoprim Drug Allergy 023 Unknown [facility] Other (20 sources) rofecoxib Drug Allergy 018 Migraine [facility] (20 sources) NSAIDS (Non-Steroidal Anti-Inflamma Allergy to substance Diarrhea [facility] (20 sources) Fjceawr-FQE-QhU Reductase Inhibitor Allergy to substance [facility] (2 sources) black walnut pollen extract; Translations: [DRJMTRG-FGC-VZM REDUCTASE INHIBITORS] Drug Allergy 023 [facility] Repository (1 source) cefdinir Drug Allergy [facility] Repository (1 source) Ketorolac Drug Allergy [facility] Repository (3 sources) NSAIDs; Translations: [NSAIDS (NON-STEROIDAL ANTI-INFLAMMATORY DRUG)] Drug allergy (disorder) Other: See Comments [facility] Repository (1 source) rofecoxib Drug Allergy [facility] Repository (1 source) Sulfamethoxazole / Trimethoprim Drug Allergy [facility] Repository (20 sources) Ibuprofen; Translations: [IBUPROFEN] Drug Allergy Unknown [facility] (20 sources) Simvastatin Drug Allergy Unknown, [facility] (20 sources) zoledronic acid; Translations: [ZOLEDRONIC ACID] Drug Allergy Other: See Comments [facility] (5 sources) Allergies Reconciled Propensity to adverse reactions Unknown [facility] Other (20 sources) Toradol *ANALGESICS - ANTI-INFLAMMATORY* Propensity to adverse reactions Unknown [facility] Other (20 sources) Cholesterol Drug allergy Unknown [facility] Other (20 sources) ANTI INFLAMMATORY Propensity to adverse reactions Unknown [facility] Other (5 sources) patient allergy list reviewed by nurse or physicia Propensity to adverse reactions 015 Comment:Done [facility] Other (1 source) DULoxetine Drug Allergy 024 Diarrhea [facility] (10 sources) HMG-CoA reductase inhibitor Propensity to adverse reactions to drug 023 Unknown [facility] (9 sources) Non-steroidal anti-inflammatory agent Propensity to adverse reactions to drug Other: See Comments [facility] (1 source) PARoxetine Drug Allergy 024 Other (See Comments) [facility] (14 sources) Mannitol Drug Allergy Comment:Bone [facility] (14 sources) Sulfamethoxazole Drug Allergy [facility] (14 sources) Trimethoprim Drug Allergy [facility] (14 sources) water for injection,sterile Allergy to substance Comment:Bone pain [facility] (14 sources) Toradol *ANALGESICS - ANTI-INF Allergy to substance Hives [facility] Comment on above: Free Text Allergy: T oradol *ANALGESICS - ANTI-INFLAMMATORY*; Onset Date: 06/29/2014 (12 sources) Ibadronate Drug Allergy bone pain [facility] (1 source) Sulfamethoxazole / Trimethoprim; Translations: [SULFAMETHOXAZOLE-TRI METHOPRIM] Drug Allergy [facility] Other [place] Repository Medications Current Medications Medication Drug Class(es) Dates Sig (Normalized) Sig (Original) [id number] 200 actuat albuterol 0.09 mg/actuat metered dose [...] Taking; Refills: 2; Qty: 360 ml; Provider: Farida De Jesus Complies with drug therapy Start: [...] PO Twice daily as needed for Constipation 60 July 01, 2019 12:00am Complies with [...] 50 mg tablet Discontinued 0 .ROUTE .COMPLEX 90 June 20, 2023 12:47pm July 26, 2023 [...] 6 hours as needed for pain 28 June 19, 2023 June 22, 2023 1:37pm Start: [...] hrs for 30 days p/u /, start 08/12Aug, Active Start: 07-12-2022 HYDROcodone-Ac etaminophen [...] tablet Discontinued 0.5 MG PO Daily 10 April 19, [...] 2024 1:00am June 23, 2024 1:11pm amylase [id number] unt / lipase 72891 unt / protease 934111 unt delayed release oral capsule (20 sources) Start: 07-05-2021 End: 07-06-2021 take [id number] capsules by mouth once daily Torkog-Dedfdyxb-Gagk ase (Creon) 36,000-114,000- 180,000 unit capsule,delayed release(DR/EC) Discontinued 1 CAP PO Daily July 05, 2021 12:00am July 06, 2021 7:56am Start: 06-13-2021 take [address] [facility] three times daily at mealtime Creon [id number] UNIT 1 CAPSULE Orally THREE TIMES A [...] 09-24-2023 Azithromycin Discontinued 0 PO .COMPLEX August 10, 2023 11:00pm September 24, 2023 [...] 1 sandy Mouth/Throat qid for 10 day(s) 05 Mar, 2021 Not-Taking cyclobenzaprine hydrochloride 10 mg oral tablet [...] Discontinued 100 MG PO Twice daily 10 April 19, 2019 1:00am July 02, 2019 [...] 1:13pm Start: 01-08-2023 take 1 capsule by mo ut at bedtime LINZESS 290 MCG CAPS capsule Take 1 capsule by mouth in the morning and at bedtime 0 01/08/2023 Active take 1 capsule by mo [facility] every twelve hours Linzess 290 MCG [...] Mesalamine Discontinued 1.5 GM PO Every morning 120 January 20, 2022 12:00am June 22, 2023 [...] Discontinued 10 MEQ PO 3x/Day with meals July 01, 2019 12:00am July 06, 2021 [...] Start: 08-03-2022 take 2 tablets by mo [facility] every twenty-four hours predniSONE 20 MG 2 tablets Orally Once a day for 5 days July, Active Start: 05-09-2022 predniSONE 20 MG 2 Orally Once a day for 5 days Apr, Active Start: 04-13-2021 take 1 tablet by [facility] every twelve hours predniSONE 20 MG 1 [...] 11:55am Start: 04-28-20[address] [facility] every twelve hours Lyrica 75 MG [...] region] Episodic Other aftercare (2 sources) Other retirement (current) drug therapy; Translations: [OTH CUSTODIAL CURRENT DRUG THERAPY] Onset: 06-08-2022 Episodic Other aftercare (10 sources) Long-term current use of drug therapy; Translations: [Other rodent exterminator (current) drug therapy] Episodic Other and [...] sources) High risk drug monitoring status; Translations: [rodent exterminator (current) use of opiate analgesic] Onset: 11-14-2016 Episodic Other aftercare (1 source) rodent exterminator (current) use of opiate analgesic; Translations: [rodent exterminator (current) use of opiate analgesic] Onset: [...] [Disease of blood AND/OR blood-forming organ] Resolved: 10-29-2022 Episodic Other inflammatory condition of skin (10 [...] (S/P/Bld) [Vol rate/Area] mL/min/{1.73_m2} >=60 mL/min/1.73m 2 [facility] Laboratory - Chemistry and C hemistry - challengeon 08-21-2024 Creatinine [Mass/Vol] 0.73 mg/dL 0.55-1.02 [facility] GFR/1.73 sq M.predicted MDRD (S/P/Bld) [Vol rate/Area] mL/min/{1.73_m2} >=60 mL/min/1.73m 2 [facility] CNPMariel 07-15-2024 KRISTINA Telephone (KEE) AFIA GUTIERRES ([id number]) 1955 F Date Time Provider Department 07/15/24 [...] Erwin. She used Dr. Was transferred to [facility]. 2. Weight loss - ICD9: 783.21, [...] She is scheduled 02/14/2024 at 12:30 PM, [facility]. - EGD - THERAPEUTIC, EUS, OR [...] and my recommendations to Dr. Erwin at [facility]. Pt had repeat MRCP 07/05/[address] [...] wanted her MRCP to be done at [facility] facility for my review. I need the images of MRCP (done at [facility]) uploaded to [facility] for my review prior to rendering any opinion. MD Iona Vigil Dawn, RN 07/16/2024 9:10 AM Signed Fannie palacio [facility], they will push images to [facility]. Will monitor. ED Merrill Dawn, RN 07/17/2024 2:[address] Dunlap, MRI images available in [facility] to review. ED Merrill Khaled, MD 07/21/2024 [...] dysplasia. Recommend: MRCP in 6 months at [facility] facility. Send my opinion to Dr. Erwin. MD Iona Vigil Dawn, ED 07/22/2024 9:21 AM Signed Recommendations faxed to Dr. Erwin's office. Angela Monson RN Allergies As of Date: 07/15/2024 Noted Allergy Reaction CEFDINIR 06/22/2023 14 - Other: See Comments IBUPROFEN 06/22/2023 16 - Unknown NSAIDS (NON-STEROIDAL ANTI-INFLAM*05/15/2023 14 - Other: See Comments Comments: Other Reaction(s): diarrhea, itching and rash LYFTQGV-JYE-DGY REDUCTASE INHIBIT*01/23/2023 16 - Unknown Comments: Other Reaction(s): Unknown SULFAMETHOXAZOLE-TRIME THOPRIM 01/23/2023 16 - Unknown ZOLEDRONIC ACID 06/22/2023 14 - Other: See Comments Date Reviewed: 03/21/2024 Reviewed by: Sofy Arriaga RN - Fully Assessed Prim (more content not included)... Normal [facility] MR MRCPon 07-05-2024 MR MRCP [facility] [place] [address] MRI Report Signed Patient: Afia Gutierres MR#: [id number] : 1955 Acct:[id number] Age/Sex: 69 / F ADM Date: 07/05/24 Loc: Room: Type: [facility] Attending Dr: Horacio Erwin MD Copies to: [...] AM Dictation Location: RADIO-PC-29 Transcribed By: NOÉ 07/05/2455 Dictated By: Vitaly Perkins MD 07/05/2445 Signed By: 07/05/24954 Normal [facility] Magnetic resonance imaging r eportOrdered By: Vitaly Perkins on 07-05-2024 Study report [facility] [place] [address] [place] [address] MRI Report Signed Patient: Afia Gutierres MR#: [id number] : 1955 Acct:[id number] Age/Sex: 69 / F ADM Date: 5 Loc: MR Room: Type: [facility] Attending Dr: Horacio Erwin MD Copies to: [...] of the pancreatic head cystic lesion currently srxptmopj12 mm in greatest dimension. Cystic neoplasm such as IPMN is favored. Sequelaeof pancreatitis or small pseudocysts could also be considered. Impression dictated by: Vitaly Perkins M.D. 07/05/2024 9:55 AM Dictation Location: [facility]- Transcribed By: [facility] 07/05/24954 Dictated By: Vitaly Perkins MD 07/05/2445 Signed By: 07/05/2455 [facility] AFIA GUTIERRES ([id number]) 1955 F Date Time Provider Department 03/31/24 [...] and my recommendations to Dr. Erwin at [facility]. MD Iona Vigil Dawn, RN 03/31/2024 1:02 PM Signed Pt notified of results and recommendations and verbalized understanding. She will follow up with Dr. Erwin. Reports and recommendations faxed to Dr. Erwin's office. DE Merrill Nancy 05/07/2024 3:01 PM Signed Patient calls stating Dr. Erwin's office never received the records Dr. Dunlap sent. Can records be refaxed? Angela Monson RN 05/07/2024 3:20 PM Signed Records faxed again, confirmation received. Angela Monson RN Tayla Vazquez 06/02/2024 3:05 PM Signed Pt calling Dr. Erwin still waiting on results/ recommendation for the MRI. Pt is still waiting on having this procedure. Pt was told that results were faxed in Mar and again in April. Please f/u call pt with update. Thank you, Angela Monson RN 06/03/2024 11:11 AM Signed Spoke with Libby [...] Comments: Other Reaction(s): diarrhea, itching and rash ZYTDLGG-GEI-GCK REDUCTASE INHIBIT*01/23/2023 16 - Unknown Comments: Other Reaction(s): Unknown SULFAMETHOXAZOLE-TRIME THOPRIM 01/23/2023 16 - Unknown ZOLEDRONIC ACID 06/22/2023 14 - Other: See Comments Date Reviewed: 03/21/2024 Reviewed by: Sofy Arriaga RN - Fully Assessed Reason for [...] Status:Closed by ANGELA MONSON on 03/31/24 Normal [facility] ANES POSTPROC EVALon 025 ANES POSTPROC EVAL HNO ID: [id number] Author: JACI PERAZA DO Service: Anesthesiology Author Type: Anesthesiologist Type: Anesthesia Postprocedure Evaluation Filed: 03/21/2024 14:29 Note Text: POST ANESTHESIA EVALUATION NOTE : 1955 Procedure Summary Date: 03/21/24 Room / Location: [facility] Endoscopy - ENDO Anesthesia Start: 933 Anesthesia Stop: 1037 Procedure: EGD - THERAPEUTIC, EUS, OR TUBE INTERVENTIONS Diagnosis: Pancreatic cyst (For evaluation of pancreatic cystic neoplasm) Scheduled Providers: Everett Dunlap MD; Jaqueline Bianchi APRN.DESIGN TECHNOLOGY TEACHER; Jaci Peraza DO Responsible Provider: Jaci Peraza [...] March 21, 2024 TIME: 2:29 PM CSN: [id number] Normal [facility] ANES PRE-OPon 03-21-2024 ANES PRE-OP HNO ID: [id number] Author: JACI PERAZA DO Service: Critical Care Author Type: Anesthesiologist Type: Anesthesia Preprocedure Evaluation Filed: 03/21/2024 09:32 Note Text: ANESTHESIOLOGY DAY OF SURGERY NOTE : 1955 Procedure Information Date/Time: 03/21/24 1000 Scheduled providers: Everett Dunlap MD; Jaqueline Bianchi APRN.DESIGN TECHNOLOGY TEACHER; Jaci Peraza DO Procedure: EGD - THERAPEUTIC, EUS, OR TUBE INTERVENTIONS Location: [facility] Endoscopy - ENDO There is no [...] and consent discussed: yes. Patient / Responsible Alliance Party agrees to proceed: yes Patient / Surrogate [...] March 21, 2024 TIME: 9:10 AM CSN: [id number] Normal [facility] CYTOLOGY NON-GYNon CASE REPORT Normal [facility] Comment on above: Order Comment: Speci men Type: SPECIMEN OBTAINED BY ASPIRATION Ordering Facility: [facility] Address: [address] [place] [address] Result Comment: [facility] Cytology Report Case: [id number] Authorizing Provider: Everett Dunlap MD Collected: 03/21/2024 09:58 AM Ordering Location: [facility] Received: 03/21/2024 10:35 AM Endoscopy - ENDO Pathologist: Priya Sumner MD Specimen: Pancreas, pancreatic head cyst Performed By: #### C MARYJO #### [facility] CLIA [id number] [address] [place] [address] [place] DIAGNOSIS COMMENT Normal [facility] Comment on above: Order Comment: Speci men Type: SPECIMEN OBTAINED BY ASPIRATION Ordering Facility: [facility] Address: [address] [place] [address] Result Comment: This case was reviewed in consultation with Dr. Dorado who agrees with the diagnosis. Performed By: #### C YTONON #### [facility] CLIA [id number] [address] [place] [address] [place] FINAL DIAGNOSIS Normal [facility] Comment on above: Order Comment: Speci men Type: SPECIMEN OBTAINED BY ASPIRATION Ordering Facility: [facility] Address: [address] [place] [address] Result Comment: A. P ancreas, Pancreatic Head Cyst, Fine Needle Aspiration: Neoplastic cells present. Negative for high-grade dysplasia. Performed By: #### C YTONON #### [facility] CLIA [id number] [address] [place] [address] [place] FINAL PERFORMING LAB Normal [facility] Comment on above: Order Comment: Speci men Type: SPECIMEN OBTAINED BY ASPIRATION Ordering Facility: [facility] Address: [address] [place] [address] Result Comment: Tech nical component, fish warden screening performed at [facility], [address] [place] [address] CLIA# [id number] Diagnostic interpretation performed at [facility], [address] [place] [address] CLIA# [id number] Pipefitter Helper: Wai Pulido M.D. Performed By: #### C YTONON #### [facility] CLIA [id number] [address] [place] [address] [place] GROSS DESCRIPTION A. Pancreas Normal [facility] Comment on above: Order Comment: Speci men Type: SPECIMEN OBTAINED BY ASPIRATION Ordering Facility: [facility] Address: [address] [place], [place] [id number] Result Comment: 1 cc opaque dark green fluid. ThinPrep prepared. Performed By: #### C YTONON #### [facility] CLIA [id number] [address] [place] [id number] [facility] EGD Study observation Elijah painting 03-21-2024 [facility] Gastrointestinal Endoscopy Patient Name: Afia Gutierres Procedure Date: 03/21/2024 9:09 AM Date of : 1955 Admit Type: Outpatient Age: 68 Room: [place] [address] Gender: Female Note Status: Finalized Attending MD: Everett Dunlap MD, [id number] Procedure: Upper EUS Indications: For evaluation of [...] Vero Layne, ED, Alessia Spaulding RN, Olinda Cohen, ED, Isabela Epps RN Patient Profile: This is [...] cyst b (more content not included)... PROVATION [facility] Radiology Study observation (narrative) [facility] HISTORY PHYSICALon HISTORY PHYSICAL HNO ID: [id number] Author: EVERETT DUNLAP MD Service: Gastroenterology Author [...] Comments Other Reaction(s): diarrhea, itching and rash Zayrhoe-Sta-Wte Red* Unknown Other Reaction(s): Unknown Sulfamethoxazole-Tr* Unknown [...] March 21, 2024 TIME: 9:22 AM Normal [facility] NURSING PROGon 03-21-2024 NURSING PROG HNO ID: [id number] Author: SOFY ARRIAGA RN Service: Nursing Author [...] (RECOMMENDATION): None Electronically Signed By: Sofy Arriaga [facility] Upper EUSon 03-21-2024 Upper EUS [facility] Gastrointestinal Endoscopy Patient Name: Afia Gutierres Procedure Date: 03/21/2024 9:09 AM Date of : 1955 Admit Type: Outpatient Age: 68 Room: [place] [address] Gender: Female Note Status: Finalized Attending MD: Everett Dunlap MD, [id number] Procedure: Upper EUS Indications: For evaluation of [...] stable. Providers: Everett Dunlap MD, Vero Layne, [place], Alessia Spaulding RN, Olinda Cohen RN, Isabela [...] 3 months. Procedure Code(s): --- Professional --- 55799, Esophagogastroduodenos copy, flexible, transoral; w (more content not included)... [facility] 03-20-2024 [facility] Telephone (FVENDO) AFIA GUTIERRES ([id number]) 1955 F Date Time Provider Department 03/20/24 EVERETT DUNLAP FVWILYO During your visit today, we recorded the following information about you: Caremn Meadows RN 03/20/2024 9:01 AM Signed Spoke with patient and confirmed procedure arrival time 9 am for egd -eus appointment. When you arrive please go to admitting/registration first, then you will be directed to the Endoscopy Dept.on the 2nd floor. If you have any questions about your appointment or your prep instructions please call [phone]. If you need to reschedule call [phone]. Allergies As of Date: 03/20/2024 Noted Allergy Reaction CEFDINIR 06/22/2023 14 - Other: See Comments IBUPROFEN 06/22/2023 16 - Unknown NSAIDS (NON-STEROIDAL ANTI-INFLAM*05/15/2023 14 - Other: See Comments Comments: Other Reaction(s): diarrhea, itching and rash QCOVQSG-FIH-CPP REDUCTASE INHIBIT*01/23/2023 16 - Unknown Comments: Other [...] Encounter Status:Closed by CARMEN MEADOWS on 03/20/24 [facility] Giovanny 02-19-2024 [facility]CO Letter Text Normal [facility] Kin 02-14-2024 EDWINN Telephone (GASTNO) AFIA GUTIERRES ([id number]) 1955 F Date Time Provider Department 02/14/24 EVERETT DUNLAP During your visit today, we recorded the following information about you: Natacha Lopez 02/14/2024 11:34 AM Signed Pt called in and had to 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 Please call pt back to reschedule. Elham Reid II 02/19/2024 1:09 PM Signed Spoke with patient, rescheduled EUS to 03/21/2024 at [facility]. Elham Watts Asst II Allergies As of Date: 02/14/2024 Noted Allergy Reaction CEFDINIR 06/22/2023 14 - Other: See Comments IBUPROFEN 06/22/2023 16 - Unknown NSAIDS (NON-STEROIDAL ANTI-INFLAM*05/15/2023 14 - Other: See Comments Comments: Other Reaction(s): diarrhea, itching and rash UQOBMGK-QZP-KJI REDUCTASE INHIBIT*01/23/2023 16 - Unknown Comments: Other [...] Status:Closed by ELHAM REID II on [facility]19/[facility] (FVENDO) AFIA GUTIERRES ([id number]) 1955 F Date Time Provider Department 02/13/24 EVERETT DUNLAP FVGIFTY During your visit today, we recorded the [...] appointment or your prep instructions please call [phone]. If you need to reschedule call [phone]. Allergies As of Date: 02/13/2024 Noted Allergy Reaction CEFDINIR 06/22/2023 14 - Other: See Comments IBUPROFEN 06/22/2023 16 - Unknown NSAIDS (NON-STEROIDAL ANTI-INFLAM*05/15/2023 14 - Other: See Comments Comments: Other Reaction(s): diarrhea, itching and rash OKVLHTB-OPR-CFJ REDUCTASE INHIBIT*01/23/2023 16 - Unknown Comments: Other [...] Status:Closed by CARMEN MEADOWS on 02/13/24 Normal [facility] Laboratory - Chemistry and C hemistry - challengeon 01-16-2024 Bilirubin Ql (U) small [facility] Glucose (U) [Mass/Vol] Negative [facility] Ketones Ql (U) Negative [facility] pH (U) 5.5 [pH] [facility] Specific gravity (U) [Rel density] >=1.030 [facility] Urobilinogen (U) [Mass/Vol] 0.2 mg/dL [facility] Laboratory - Specimen inform ationon 01-16-2024 Appearance (U) clear [facility] Color (U) darkyellow [facility] Laboratory - Urinalysison Leukocyte esterase Test strip Ql (U) trace [facility] Nitrite Ql (U) Negative [facility] Protein Ql (U) 30mg/dl [facility] No Panel Informationon 01-15 Urine Occult Blood small [facility] Urine Cultureon 01-16-2024 Bacteria identified Cx Nom (U) <9,000 colonies/ml mixed bacterial skin contaminants 2 Days PERFORMED BY: [place] [address] PATHOLOGIST FIELD ADJUSTER SHELTON NEVAREZ M.D. Normal [facility] Comment on above: Performed By: #### C UU #### [address] Urine cultureOrdered By: Whit Barry on 01-16-2024 Bacteria identified Cx Nom (U) Urine culture [facility] Basophils Auto (Bld) [#/Vol] on 01-03-2024 Basophils (Bld) [#/Vol] 0.0 10 3/uL 0.0-0.1 [facility] Basophils (Bld) [#/Vol] Automated basophil count 0.0-0.1 [facility] Basophils/100 WBC Auto (Bld) on 01-03-2024 Basophils/100 WBC (Bld) 0.4 % 0.2-2.0 [facility] Basophils/100 WBC (Bld) Automated basophil % 0.2-2.0 [facility] Eosinophils/100 WBC Auto (Bl d)on 01-03-2024 Eosinophils/100 WBC (Bld) 1.6 % 0.9-7.0 [facility] Eosinophils/100 WBC (Bld) Automated eosinophil % 0.9-7.0 [facility] Erythrocyte distribution wid th Auto (RBC) [Ratio]on 01-03-2024 Erythrocyte distribution width (RBC) [Ratio] 11.8 % 11.0-15.0 [facility] Erythrocyte distribution width (RBC) [Ratio] Erythrocyte distribution width [Ratio] by Automated count 11.0-15.0 [facility] Estimated glomerular filtrat ion rate (GFR) non- Americanon 01-03-2024 GFR/1.73 sq M.predicted among non-blacks MDRD (S/P/Bld) [Vol rate/Area] mL/min/{1.73_m2} >=60 mL/min/1.73m 2 [facility] GFR/1.73 sq M.predicted among non-blacks MDRD (S/P/Bld) [Vol rate/Area] Estimated glomerular filtration rate (GFR) non- >=60 mL/min/1.73m 2 [facility] Fibrin D-dimer [Presence] in Platelet poor plasma by Latex agglutinationon 01-03-2024 Fibrin D-dimer LA Ql (PPP) 0.62 mg/L FEU High <=0.59 [facility] Comment on above: RESULTS CALLED TO GREYSON COOL RN @BY Shira Tan [id number] in D-Dimer concentration observed withthromboembolic events can [...] plasma by Latex agglutination Critically high <=0.59 [facility] Comment on above: RESULTS CALLED TO GREYSON COOL RN @BY Shira Tan [id number] in D-Dimer concentration observed withthromboembolic events can [...] on 01-03-2024 Globulin (S) [Mass/Vol] 3.4 g/dL [facility] Globulin (S) [Mass/Vol] Serum globulin measurement by calculation (mass/volume) [facility] Hematocrit Auto (Bld) [Volum e fraction]on 01-03-2024 Hematocrit (Bld) [Volume fraction] 40.1 % 36.0-48.0 [facility] Hematocrit (Bld) [Volume fraction] Hematocrit [Volume Fraction] of Blood by Automated count 36.0-48.0 [facility] Hemoglobin [Mass/volume] in Bloodon 01-03-2024 Hemoglobin (Bld) [Mass/Vol] 13.0 g/dL 12.0-16.0 [facility] Hemoglobin (Bld) [Mass/Vol] Hemoglobin [Mass/volume] in Blood 12.0-16.0 [facility] Laboratory - Chemistry and C hemistry - challengeon 01-03-2024 Albumin [Mass/Vol] 3.6 g/dL 3.4-5.0 [facility] ALP [Catalytic activity/Vol] 53 U/L 46-116 [facility] ALT [Catalytic activity/Vol] 17 U/L 14-59 [facility] AST [Catalytic activity/Vol] 17 U/L 15-37 [facility] Bilirubin [Mass/Vol] 0.3 mg/dL 0.2-1.0 [facility] Calcium [Mass/Vol] 9.2 mg/dL 8.5-10.1 [facility] Chloride [Moles/Vol] 104 mmol/L 98-107 [facility] CO2 [Moles/Vol] 28.1 mmol/L 21.0-32.0 [facility] Creatinine [Mass/Vol] 0.72 mg/dL 0.55-1.02 [facility] GFR/1.73 sq M.predicted MDRD (S/P/Bld) [Vol rate/Area] mL/min/{1.73_m2} >=60 mL/min/1.73m 2 [facility] Glucose [Mass/Vol] 121 mg/dL High 74-106 [facility] Lactate [Moles/Vol] 2.4 mmol/L Critically high 0.4-2.0 [facility] Comment on above: RESULTS CALLED TO AP HART RN @BY Shira Garcia at 2234 Lipase [Catalytic activity/Vol] 36.0 U/L 16.0-77.0 [facility] Potassium [Moles/Vol] 3.1 mmol/L Low 3.5-5.1 [facility] Protein [Mass/Vol] 7.0 g/dL 6.4-8.2 [facility] Sodium [Moles/Vol] 142 mmol/L 136-145 [facility] Urea nitrogen [Mass/Vol] 14.0 mg/dL 7.0-18.0 [facility] Urea nitrogen/Creatinine [Mass ratio] 19.4 mg/mg [facility] Bilirubin Ql (U) Negative NEGATIVE [facility] Glucose (U) [Mass/Vol] Negative NEGATIVE [facility] Ketones Ql (U) Negative NEGATIVE [facility] pH (U) 6.5 [pH] 5.0-9.0 [facility] Specific gravity (U) [Rel density] 1.020 1.005-1.025 [facility] Urobilinogen Qn (U) 0.2 {Skip'U}/dL 0.2-1.0 [facility] Laboratory - Hematology and Cell countson 01-03-2024 Immature granulocytes/100 WBC (Bld) 0.2 % 0.0-0.5 [facility] Laboratory - Specimen inform ationon 01-03-2024 Appearance (U) CLEAR CLEAR [facility] Color (U) YELLOW YELLOW [facility] Laboratory - Urinalysison Leukocyte esterase Test strip Ql (U) Negative NEGATIVE [facility] Nitrite Ql (U) Negative NEGATIVE [facility] Protein Ql (U) Negative NEG/TRACE [facility] Leukocytes [#/volume] correc jer for nucleated erythrocytes in Blood by Automated counon 01-03-2024 WBC corrected for nucl RBC Auto (Bld) [#/Vol] 5.0 10 3/uL 4.0-11.0 [facility] WBC corrected for nucl RBC Auto (Bld) [#/Vol] Leukocytes [#/volume] corrected for nucleated erythrocytes in Blood by Automated coun 4.0-11.0 [facility] Lymphocytes Auto (Bld) [#/Vo l]on 01-03-2024 Lymphocytes (Bld) [#/Vol] 2.2 10 3/uL 1.2-3.8 [facility] Lymphocytes (Bld) [#/Vol] Lymphocytes [#/volume] in Blood by Automated count 1.2-3.8 [facility] Lymphocytes/100 WBC Auto (Bl d)on 01-03-2024 Lymphocytes/100 WBC (Bld) 43.3 % 20.5-60.0 [facility] Lymphocytes/100 WBC (Bld) Lymphocytes/100 leukocytes in Blood by Automated count 20.5-60.0 [facility] MCH Auto (RBC) [Entitic mass ]on 01-03-2024 MCH (RBC) [Entitic mass] 32.3 pg 26.7-34.0 [facility] MCH (RBC) [Entitic mass] MCH [Entitic mass] by Automated count 26.7-34.0 [facility] MCHC Auto (RBC) [Mass/Vol]on 01-03-2024 MCHC (RBC) [Mass/Vol] 32.4 g/dL 29.9-35.2 [facility] MCHC (RBC) [Mass/Vol] MCHC [Mass/volume] by Automated count 29.9-35.2 [facility] MCV Auto (RBC) [Entitic vol] on 01-03-2024 MCV (RBC) [Entitic vol] 99.5 fL High 81.0-99.0 [facility] MCV (RBC) [Entitic vol] MCV [Entitic volume] by Automated count High 81.0-99.0 [facility] Monocytes Auto (Bld) [#/Vol] on 01-03-2024 Monocytes (Bld) [#/Vol] 0.4 10 3/uL 0.3-0.8 [facility] Monocytes (Bld) [#/Vol] Automated blood monocyte count 0.3-0.8 [facility] Monocytes/100 WBC Auto (Bld) on 01-03-2024 Monocytes/100 WBC (Bld) 7.4 % 1.7-12.0 [facility] Monocytes/100 WBC (Bld) Automated monocyte % 1.7-12.0 [facility] Neutrophils Auto (Bld) [#/Vo l]on 01-03-2024 Neutrophils (Bld) [#/Vol] 2.4 10 3/uL 1.4-6.5 [facility] Neutrophils (Bld) [#/Vol] Neutrophils [#/volume] in Blood by Automated count 1.4-6.5 [facility] Neutrophils/100 WBC Auto (Bl d)on 01-03-2024 Neutrophils/100 WBC (Bld) 47.1 % 43.0-75.0 [facility] Neutrophils/100 WBC (Bld) Automated neutrophil % 43.0-75.0 [facility] No Panel Informationon 01-02 Eosinophils # (Auto) 0.1 10 3/uL 0.0-0.7 [facility] Immature Granulocyte # (Auto) 0.01 10 3/uL 0.00-0.03 [facility] Troponin I High Sensitivity <4.0 pg/mL Low 4.0-51.3 [facility] Comment on above: CUT-OFF POINTS HAVE [...] AND CLINICAL INFORMATION. Urine Microscopic Review NO [facility] Urine Occult Blood Negative NEGATIVE [facility] Platelet mean volume Auto (B ld) [Entitic vol]on 01-03-2024 Platelet mean volume (Bld) [Entitic vol] 9.5 fL 9.5-13.5 [facility] Platelet mean volume (Bld) [Entitic vol] Platelet mean volume [Entitic volume] in Blood by Automated count 9.5-13.5 [facility] Platelets Auto (Bld) [#/Vol] on 01-03-2024 Platelets (Bld) [#/Vol] 160 10 3/uL 150-450 [facility] Platelets (Bld) [#/Vol] Platelets [#/volume] in Blood by Automated count 150-450 [facility] RBC Auto (Bld) [#/Vol]on RBC (Bld) [#/Vol] 4.03 10 6/uL Low 4.20-5.40 [facility] RBC (Bld) [#/Vol] Erythrocytes [#/volume] in Blood by Automated count Low 4.20-5.40 [facility] Serum or plasma albumin/glob ulin mass ratioon 01-03-2024 Albumin/Globulin [Mass ratio] 1.1 {ratio} [facility] Albumin/Globulin [Mass ratio] Serum or plasma albumin/globulin mass ratio [facility] Serum or plasma anion gap de terminationon 01-03-2024 Anion gap [Moles/Vol] 13.0 [facility] gap [Moles/Vol] Serum or plasma an ion gap determination [facility] CNOVon 12-19-2023 CNOV Office Visit (GASTNO ) AFIA GUTIERRES ([id number]) 1955 F Date Time Provider Department 12/19/23 [...] 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 Normal [facility] HISTORY PHYSICALon HISTORY PHYSICAL HNO ID: [id number] Author: EVERETT DUNLAP MD Service: ? 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 Normal [facility] Basophils Auto (Bld) [#/Vol] on 12-12-2023 Basophils (Bld) [#/Vol] 0.0 10 3/uL 0.0-0.1 [facility] Basophils/100 WBC Auto (Bld) on 12-12-2023 Basophils/100 WBC (Bld) 0.3 % 0.2-2.0 [facility] Eosinophils/100 WBC Auto (Bl d)on 12-12-2023 Eosinophils/100 WBC (Bld) 0.9 % 0.9-7.0 [facility] Erythrocyte distribution wid th Auto (RBC) [Ratio]on 12-12-2023 Erythrocyte distribution width (RBC) [Ratio] 11.8 % 11.0-15.0 [facility] Estimated glomerular filtrat ion rate (GFR) non- Americanon 12-12-2023 GFR/1.73 sq M.predicted among non-blacks MDRD (S/P/Bld) [Vol rate/Area] mL/min/{1.73_m2} >=60 mL/min/1.73m 2 [facility] Globulin Calc (S) [Mass/Vol] on 12-12-2023 Globulin (S) [Mass/Vol] 3.5 g/dL [facility] Hematocrit Auto (Bld) [Volum e fraction]on 12-12-2023 Hematocrit (Bld) [Volume fraction] 42.8 % 36.0-48.0 [facility] Hemoglobin [Mass/volume] in Bloodon 12-12-2023 Hemoglobin (Bld) [Mass/Vol] 13.9 g/dL 12.0-16.0 [facility] Laboratory - Chemistry and C hemistry - challengeon 12-12-2023 Bilirubin Ql (U) Negative NEGATIVE [facility] Glucose (U) [Mass/Vol] Negative NEGATIVE [facility] Ketones Ql (U) Negative NEGATIVE [facility] pH (U) 7.0 [pH] 5.0-9.0 [facility] Specific gravity (U) [Rel density] 1.015 1.005-1.025 [facility] Urobilinogen Qn (U) 0.2 {Skip'U}/dL 0.2-1.0 [facility] Albumin [Mass/Vol] 3.7 g/dL 3.4-5.0 [facility] ALP [Catalytic activity/Vol] 54 U/L 46-116 [facility] ALT [Catalytic activity/Vol] 18 U/L 14-59 [facility] AST [Catalytic activity/Vol] 17 U/L 15-37 [facility] Bilirubin [Mass/Vol] 0.3 mg/dL 0.2-1.0 [facility] Calcium [Mass/Vol] 9.4 mg/dL 8.5-10.1 [facility] Chloride [Moles/Vol] 99 mmol/L 98-107 [facility] CO2 [Moles/Vol] 27.4 mmol/L 21.0-32.0 [facility] Creatinine [Mass/Vol] 0.78 mg/dL 0.55-1.02 [facility] GFR/1.73 sq M.predicted MDRD (S/P/Bld) [Vol rate/Area] mL/min/{1.73_m2} >=60 mL/min/1.73m 2 [facility] Glucose [Mass/Vol] 151 mg/dL High 74-106 [facility] Potassium [Moles/Vol] 3.5 mmol/L 3.5-5.1 [facility] Protein [Mass/Vol] 7.2 g/dL 6.4-8.2 [facility] Sodium [Moles/Vol] 137 mmol/L 136-145 [facility] Urea nitrogen [Mass/Vol] 12.0 mg/dL 7.0-18.0 [facility] Urea nitrogen/Creatinine [Mass ratio] 15.4 mg/mg [facility] Laboratory - Hematology and Cell countson 12-12-2023 Immature granulocytes/100 WBC (Bld) 0.3 % 0.0-0.5 [facility] Laboratory - Microbiology an d Antimicrobial susceptibilityon 12-12-2023 SARS-CoV-2 (COVID-19) RNA JOSH+probe Ql (Unsp spec) Negative NEGATIVE [facility] Comment on above: This test [...] inform ationon 12-12-2023 Appearance (U) CLEAR CLEAR [facility] Color (U) LT. YELLOW YELLOW [facility] Laboratory - Urinalysison Leukocyte esterase Test strip Ql (U) Negative NEGATIVE [facility] Nitrite Ql (U) Negative NEGATIVE [facility] Protein Ql (U) Negative NEG/TRACE [facility] Leukocytes [#/volume] correc jer for nucleated erythrocytes in Blood by Automated counon 12-12-2023 WBC corrected for nucl RBC Auto (Bld) [#/Vol] 5.7 10 3/uL 4.0-11.0 [facility] Lymphocytes Auto (Bld) [#/Vo l]on 12-12-2023 Lymphocytes (Bld) [#/Vol] 1.0 10 3/uL Low 1.2-3.8 [facility] Lymphocytes/100 WBC Auto (Bl d)on 12-12-2023 Lymphocytes/100 WBC (Bld) 18.0 % Low 20.5-60.0 [facility] MCH Auto (RBC) [Entitic mass ]on 12-12-2023 MCH (RBC) [Entitic mass] 32.4 pg 26.7-34.0 [facility] MCHC Auto (RBC) [Mass/Vol]on 12-12-2023 MCHC (RBC) [Mass/Vol] 32.5 g/dL 29.9-35.2 [facility] MCV Auto (RBC) [Entitic vol] on 12-12-2023 MCV (RBC) [Entitic vol] 99.8 fL High 81.0-99.0 [facility] Monocytes Auto (Bld) [#/Vol] on 12-12-2023 Monocytes (Bld) [#/Vol] 0.3 10 3/uL 0.3-0.8 [facility] Monocytes/100 WBC Auto (Bld) on 12-12-2023 Monocytes/100 WBC (Bld) 5.1 % 1.7-12.0 [facility] Neutrophils Auto (Bld) [#/Vo l]on 12-12-2023 Neutrophils (Bld) [#/Vol] 4.3 10 3/uL 1.4-6.5 [facility] Neutrophils/100 WBC Auto (Bl d)on 12-12-2023 Neutrophils/100 WBC (Bld) 75.4 % High 43.0-75.0 [facility] No Panel Informationon 12-11 Urine Microscopic Review NO [facility] Urine Occult Blood Negative NEGATIVE [facility] Eosinophils # (Auto) 0.1 10 3/uL 0.0-0.7 [facility] Immature Granulocyte # (Auto) 0.02 10 3/uL 0.00-0.03 [facility] Platelet mean volume Auto (B ld) [Entitic vol]on 12-12-2023 Platelet mean volume (Bld) [Entitic vol] 9.1 fL Low 9.5-13.5 [facility] Platelets Auto (Bld) [#/Vol] on 12-12-2023 Platelets (Bld) [#/Vol] 168 10 3/uL 150-450 [facility] RBC Auto (Bld) [#/Vol]on RBC (Bld) [#/Vol] 4.29 10 6/uL 4.20-5.40 [facility] Serum or plasma albumin/glob ulin mass ratioon 12-12-2023 Albumin/Globulin [Mass ratio] 1.1 {ratio} [facility] Serum or plasma anion gap de terminationon 12-12-2023 Anion gap [Moles/Vol] 14.1 mmol/L [facility] CNPNon 11-30-2023 CNPN Telephone (GASTNO) AFIA GUTIERRES ([id number]) 1955 F Date Time Provider Department 11/30/23 [...] Awaiting MRCP images to be uploaded to [facility]. Schedule follow-up visit in my pancreas clinic in the next 1-2 months. Likely the patient does not need EUS giving stable small pancreatic cyst measuring 6 mm. MD Iona Vigil Dawn, ED 12/03/2023 3:58 PM Signed MRI images available [...] Status:Closed by BETH SUMMERS on 12/04/23 Normal [facility] ISTAT XRay CREon 11-02-2023 ISTAT GFR > 60.0 Normal [facility] Comment on above: Result Comment: PERF ORMED BY: [place] [address] PATHOLOGIST FIELD ADJUSTER SHELTON NEVAREZ M.D. Performed By: #### I SCRE #### [address] MR abdomen wo/w conon 2023 MR abdomen wo/w con [facility] [place] [address] [place] [address] MRI Report Signed Patient: Afia Gutierres MR#: [id number] : 1955 Acct:[id number] Age/Sex: 68 / F ADM Date: 11/02/23 Loc: MR Room: Type: [facility] Attending Dr: Horacio Erwin MD Copies to: [...] Wai Denise M.D.11/02/2023 8:02 PM Dictation Location: [place] [address] Transcribed By: [facility] 11/02/232001 Dictated By: Wai Denise II, MD 11/02/231953 Signed By: 11/02/232001 Normal [facility] No Panel InformationOrdered By: Horacio Erwin on 11-02-2023 Bedside Estimated GFR (eGFR) > 60.0 [facility] Whole blood creatinine measu rementOrdered By: Horacio Erwin on 11-02-2023 Creatinine [Mass/Vol] 0.5 mg/dL Low 0.6-1.3 [facility] Comment on above: ER/ESD physician is notified/shown all ISTAT results.Critical values may be confirmed by laboratory testing ifdeemed necessary by ER attending doctor. Result Comment: ER/E SD physician is notified/shown all ISTAT results. Critical values may be confirmed by laboratory testing if deemed necessary by ER attending doctor. Performed By: #### I SCRE #### [facility] [address] [place] [address] Laboratory - Chemistry and C hemistry - challengeon 06-22-2023 Bilirubin Ql (U) Negative [facility] Glucose (U) [Mass/Vol] Negative [facility] Ketones Ql (U) Negative [facility] pH (U) 5 [pH] [facility] Specific gravity (U) [Rel density] 1.025 [facility] Urobilinogen (U) [Mass/Vol] 0.2 mg/dL [facility] Laboratory - Specimen inform ationon 06-22-2023 Appearance (U) cloudy [facility] Color (U) DarkYellow [facility] Laboratory - Urinalysison Leukocyte esterase Test strip Ql (U) Negative [facility] Nitrite Ql (U) Positive [facility] Protein Ql (U) Negative [facility] No Panel Informationon 06-21 Urine Occult Blood Negative [facility] Urine culture routineOrdered By: Nettie Iqbal on 06-22-2023 Bacteria identified Cx Nom (U) Citrobacter freundii complex [facility] IR VERTEBROPLASTY CERVICOTHO RACICon 06-15-2023 [...] Ricardo Carbajal MD 06/18/23 Final result Normal [facility] IR VERTEBROPLASTY EACH ADDIT IONWiliamn 06-15-2023 IR VERTEBROPLASTY EACH ADDITIONAL IMPRESSION: Technically [...] Ricardo Carbajal MD 06/18/23 Final result Normal [facility] CBCon 06-13-2023 Erythrocyte distribution width (RBC) [Ratio] 13.2 % Normal 11.8-14.4 [facility] Comment on above: Performed By: #### C BC, PT, CP #### [facility] [address] [place], [place] [id number] Stock Worker: Janna Monzon MD Hematocrit (Bld) [Volume fraction] 44.8 % Normal 36.3-47.1 [facility] Comment on above: Performed By: #### C BC, PT, CP #### [address] [place], [facility] Stock Worker: Janna Monzon MD Hemoglobin (Bld) [Mass/Vol] 14.2 g/dL Normal 11.9-15.1 [facility] Comment on above: Performed By: #### C DARIELA, PT, CP #### [address] [place] [id number] Stock Worker: Janna Monzon MD MCH (RBC) [Entitic mass] 31.8 pg Normal 25.2-33.5 [facility] Comment on above: Performed By: #### C DARIELA, PT, CP #### [address] [place], [facility] Stock Worker: Janna Monzon MD MCHC (RBC) [Mass/Vol] 31.7 g/dL Normal 28.4-34.8 [facility] Comment on above: Performed By: #### C DARIELA, PT, CP #### [address] [place], [facility] Stock Worker: Janan Monzon MD MCV (RBC) [Entitic vol] 100.2 fL Normal 82.6-102.9 [facility] Comment on above: Performed By: #### C DARIELA, PT, CP #### [address] [place] [id number] Stock Worker: Janna Monzon MD NRBC Automated 0.0 per 100 WBC Normal 0.0 [facility] Comment on above: Performed By: #### C DARIELA, PT, CP #### [address] [place], [place] [id number] Stock Worker: Janna Monzon MD Platelet mean volume (Bld) [Entitic vol] 9.9 fL Normal 8.1-13.5 [facility] Comment on above: Performed By: #### C BC, PT, CP #### [facility] [address] [place], [facility] Stock Worker: Janna Monzon MD Platelets (Bld) [#/Vol] 167 10*3/uL Normal 138-453 [facility] Comment on above: Performed By: #### C BC, PT, CP #### [facility] [address] [place], [place] [id number] Stock Worker: Janna Monzon MD RBC (Bld) [#/Vol] 4.47 10*6/uL Normal 3.95-5.11 [facility] Comment on above: Performed By: #### C BC, PT, CP #### [address] [place], [facility] Stock Worker: Janna Monzon MD WBC (Bld) [#/Vol] 4.4 10*3/uL Normal 3.5-11.3 [facility] Comment on above: Performed By: #### C BC, PT, CP #### [address] [place], [facility] Stock Worker: Janna Monzon MD Comp Metabolic Profon 2023 Albumin [Mass/Vol] 4.3 g/dL Normal 3.5-5.2 [facility] Comment on above: Performed By: #### C BC, PT, CP #### [address] [place], [place] [id number] Stock Worker: Janna Monzon MD Albumin/Glob Ratio 1.3 Normal 1.0-2.5 [facility] Comment on above: Performed By: #### C BC, PT, CP #### [address] [place], [place] [id number] Stock Worker: Janna Monzon MD Alkaline Phos 78 U/L Normal 35-104 [facility] Comment on above: Performed By: #### C BC, PT, CP #### [facility] [address] [place], [place] [id number] Stock Worker: Janna Monzon MD ALT [Catalytic activity/Vol] 11 U/L Normal 5-33 [facility] Comment on above: Performed By: #### C BC, PT, CP #### [facility] Lab [address] [place], [place] [id number] Stock Worker: Janna Monzon MD Anion gap [Moles/Vol] 8 mmol/L Low 9-17 [facility] Comment on above: Performed By: #### C DARIELA, PT, CP #### [facility] [address] [place], [place] [id number] Stock Worker: Janna Monzon MD AST [Catalytic activity/Vol] 21 U/L Normal <32 [facility] Comment on above: Performed By: #### C DARIELA, PT, CP #### [facility] [address] [place], [place] [id number] Stock Worker: Janna Monzon MD Bilirubin [Mass/Vol] 0.2 mg/dL Low 0.3-1.2 [facility] Comment on above: Performed By: #### C DARIELA, PT, CP #### [facility] [address] [place], [place] [id number] Stock Worker: Janna Monzon MD BUN/CRE Ratio 30 High 9-20 [facility] Comment on above: Performed By: #### C BC, PT, CP #### [facility] [address] [place], [place] [id number] Stock Worker: Janna Monzon MD Calcium [Mass/Vol] 9.3 mg/dL Normal 8.6-10.4 [facility] Comment on above: Performed By: #### C BC, PT, CP #### [facility] [address] [place], [place] [id number] Stock Worker: Janna Monzon MD Chloride [Moles/Vol] 103 mmol/L Normal 98-107 [facility] Comment on above: Performed By: #### C BC, PT, CP #### [facility] [address] [place], [place] [id number] Stock Worker: Janna Monzon MD CO2 [Moles/Vol] 29 mmol/L Normal 20-31 [facility] Comment on above: Performed By: #### C DARIELA, PT, CP #### [facility] [address] [place] [id number] Stock Worker: Janna Monzon MD Creatinine [Mass/Vol] 0.5 mg/dL Normal 0.5-0.9 [facility] Comment on above: Performed By: #### C DARIELA, PT, CP #### [facility] [address] [place], [place] [id number] Stock Worker: Janna Monzon MD GFR/1.73 sq M.predicted among non-blacks MDRD (S/P/Bld) [Vol rate/Area] mL/min/{1.73_m2} Normal >60 [facility] Comment on above: Result Comment: These results [...] By: #### C BC, PT, CP #### [facility] [address] [place], [place] [id number] Stock Worker: Janna Monzon MD Glucose [Mass/Vol] 77 mg/dL Normal 70-99 [facility] Comment on above: Performed By: #### C BC, PT, CP #### [facility] [address] [place], [place] [id number] Stock Worker: Janna Monzon MD Potassium [Moles/Vol] 4.0 mmol/L Normal 3.7-5.3 [facility] Comment on above: Performed By: #### C BC, PT, CP #### [facility] [address] [place] [address] Dr[address] [place], [place] [id number] Stock Worker: Janna Monzon MD Protein [Mass/Vol] 7.7 g/dL Normal 6.4-8.3 [facility] Comment on above: Performed By: #### C BC, PT, CP #### [address] [place], [place] [id number] Stock Worker: aJnna Monzon MD Sodium [Moles/Vol] 140 mmol/L Normal 135-144 [facility] Comment on above: Performed By: #### C BC, PT, CP #### [address] [place], [place] [id number] Stock Worker: Janna Monzon MD Urea nitrogen [Mass/Vol] 15 mg/dL Normal 8-23 [facility] Comment on above: Performed By: #### C BC, PT, CP #### [address] [place], [place] [id number] Stock Worker: Janna Monzon MD PTon 06-13-2023 INR Coag (PPP) [Relative time] 0.9 {INR} Normal [facility] Comment on above: Result Comment: Therapeutic Range: Moderate Anticoagulant Intensity: INR = 2.0-3.0 High Anticoagulant Intensity: INR = 2.5-3.5 Performed By: #### C BC, PT, CP #### [facility] [address] [place] [address] Dr. [place], [place] [phone] Stock Worker: Janna Monzon MD PT Coag (PPP) [Time] 12.3 s Normal 11.7-14.1 [facility] Comment on above: Performed By: #### C BC, PT, CP #### [facility] [address] [place] [address] Stock Worker: Janna Monzon MD Automated erythrocytes count in urine sediment (number/area)Ordered By: Nettie Iqbal on 01-11-2023 RBC Auto (Urine sed) [#/Area] 3-4 [HPF] 0-4 [facility] Automated leukocytes count i n urine sediment (number/area)Ordered By: Nettie Iqbal on 01-11-2023 WBC Auto (Urine sed) [#/Area] 0-1 [HPF] 0-4 [facility] Automated urine sediment bina cium oxalate crystal count by microscopy (number/high powOrdered By: Nettie Iqbal on 01-11-2023 Calcium oxalate crystals LM.HPF (Urine sed) [#/Area] 3+ [HPF] [facility] Bilirubin Test strip Ql (U)O rdered By: Nettie Iqbal on 01-11-2023 Bilirubin Ql (U) Negative Negative [facility] Color Auto (U)Ordered By: Jeffery Iqabl on 01-11-2023 Color (U) Dark yellow Yellow [facility] Ketones Auto test strip (U) [Mass/Vol]Ordered By: Nettie Iqbal on 01-11-2023 Ketones (U) [Mass/Vol] Trace Negative [facility] Laboratory - UrinalysisOrder ed By: Nettie Iqbal on 01-11-2023 Hyaline casts LM Ql (Urine sed) 0-8 [LPF] 0-8 [facility] Nitrite Test strip Ql (U)Ord ered By: Nettie Iqbal on 01-11-2023 Nitrite Ql (U) Negative Negative [facility] Protein Auto test strip (U) [Mass/Vol]Ordered By: Nettie Iqbal on 01-11-2023 Protein (U) [Mass/Vol] Negative Negative [facility] Specific gravity Auto test s trip (U) [Rel density]Ordered By: Nettie Iqbal on 01-11-2023 Specific gravity (U) [Rel density] 1.022 1.001-1.030 [facility] Squamous epithelial cells de tection in urine sediment by light microscopyOrdered By: Nettie Iqbal on 01-11-2023 Epithelial cells.squamous LM Ql (Urine sed) 0-1 [HPF] 0-2 [facility] Urine bacteria detection by automated methodOrdered By: Nettie Iqbal on 01-11-2023 Bacteria Auto Ql (U) 1+ None Seen [facility] Urine clarity by refractomet ry automatedOrdered By: Nettie Iqbal on 01-11-2023 Clarity Refractometry automated (U) Cloudy Clear [facility] Urine culture routineOrdered By: Nettie Iqbal on 01-11-2023 Bacteria identified Cx Nom (U) Strep agalactiae - (group b) [facility] Urine glucose measurement by automated test strip (mass/volume)Ordered By: Nettie Iqbal on 01-11-2023 Glucose Auto test strip (U) [Mass/Vol] Normal mg/dL Normal [facility] Urine hemoglobin detection b y automated test stripOrdered By: Nettie Iqbal on 01-11-2023 Hemoglobin Auto test strip Ql (U) Negative Negative [facility] Urine leukocyte esterase det ection by automated test stripOrdered By: Nettie Iqbal on 01-11-2023 Leukocyte esterase Auto test strip Ql (U) Negative Negative [facility] Urine sediment crystal ident ification by light microscopyOrdered By: Nettie Iqbal on 01-11-2023 Crystals LM Nom (Urine sed) N/A [facility] Urobilinogen Auto test strip (U) [Mass/Vol]Ordered By: Nettie Iqbal on 01-11-2023 Urobilinogen (U) [Mass/Vol] Normal mg/dL Normal [facility] pH Auto test strip (U)Ordere d By: Nettie Iqbal on 01-11-2023 pH (U) 5.5 [pH] 5.0-9.0 [facility] ED Note-Physicianon 12-26-19 ED Note-Physician [id number] 00 [id number] [id number] Normal [facility] Automated erythrocytes count in urine sediment (number/area)Ordered By: Nettie Iqbal on 11-20-2022 RBC Auto (Urine sed) [#/Area] 20-49 [HPF] 0-4 [facility] Automated leukocytes count i n urine sediment (number/area)Ordered By: Nettie Iqbal on 11-20-2022 WBC Auto (Urine sed) [#/Area] Innumerable [HPF] 0-4 [facility] Automated urine sediment bina cium oxalate crystal count by microscopy (number/high powOrdered By: Nettie Iqbal on 11-20-2022 Calcium oxalate crystals LM.HPF (Urine sed) [#/Area] Rare [HPF] [facility] Bilirubin Test strip Ql (U)O rdered By: Nettie Iqbal on 11-20-2022 Bilirubin Ql (U) Negative Negative [facility] Casts typing in urine sedime nt by light microscopyOrdered By: Nettie Iqbal on 11-20-2022 Casts LM Nom (Urine sed) None seen [LPF] None Seen [facility] Color Auto (U)Ordered By: Jeffery Iqbal on 11-20-2022 Color (U) Yellow Yellow [facility] Ketones Auto test strip (U) [Mass/Vol]Ordered By: Nettie Iqbal on 11-20-2022 Ketones (U) [Mass/Vol] 1+ Negative [facility] Laboratory - UrinalysisOrder ed By: Nettie Iqbal on 11-20-2022 Hyaline casts LM Ql (Urine sed) None seen [LPF] 0-8 [facility] Nitrite Test strip Ql (U)Ord ered By: Nettie Iqbal on 11-20-2022 Nitrite Ql (U) Negative Negative [facility] Protein Auto test strip (U) [Mass/Vol]Ordered By: Nettie Iqbal on 11-20-2022 Protein (U) [Mass/Vol] Trace mg/dL Negative [facility] Specific gravity Auto test s trip (U) [Rel density]Ordered By: Nettie Iqbal on 11-20-2022 Specific gravity (U) [Rel density] 1.008 1.001-1.030 [facility] Squamous epithelial cells de tection in urine sediment by light microscopyOrdered By: Nettie Iqbal on 11-20-2022 Epithelial cells.squamous LM Ql (Urine sed) 1-2 [HPF] 0-2 [facility] Urine bacteria detection by automated methodOrdered By: Nettie Iqbal on 11-20-2022 Bacteria Auto Ql (U) 4+ None Seen [facility] Urine clarity by refractomet ry automatedOrdered By: Nettie Iqbal on 11-20-2022 Clarity Refractometry automated (U) Turbid Clear [facility] Urine culture routineOrdered By: Nettie Iqbal on 11-20-2022 Bacteria identified Cx Nom (U) Klebsiella oxytoca [facility] Urine glucose measurement by automated test strip (mass/volume)Ordered By: Nettie Iqbal on 11-20-2022 Glucose Auto test strip (U) [Mass/Vol] Normal mg/dL Normal [facility] Urine hemoglobin detection b y automated test stripOrdered By: Nettie Iqbal on 11-20-2022 Hemoglobin Auto test strip Ql (U) 3+ Negative [facility] Urine leukocyte esterase det ection by automated test stripOrdered By: Nettie Iqbal on 11-20-2022 Leukocyte esterase Auto test strip Ql (U) 4+ Negative [facility] Urobilinogen Auto test strip (U) [Mass/Vol]Ordered By: Nettie Iqbal on 11-20-2022 Urobilinogen (U) [Mass/Vol] Normal mg/dL Normal [facility] pH Auto test strip (U)Ordere d By: Nettie Iqbal on 11-20-2022 pH (U) 7.5 [pH] 5.0-9.0 [facility] COVID Quick Testingon 2022 Result Negative [employer] Other PROF CHEM 8 (BAS METB)on Anion gap [Moles/Vol] 18.4 mmol/L Normal [facility] Comment on above: Performed By: #### B MP, TSH #### [facility] Laboratory [address] [address] [address] David Cannon Calcium [Mass/Vol] 9.5 mg/dL Normal 8.5-10.1 [facility] Comment on above: Performed By: #### B MP, TSH #### [facility] [address] [address] [address] David Cannon Chloride [Moles/Vol] 104 mmol/L Normal 98-107 [facility] Comment on above: Performed By: #### B MP, TSH #### [facility] [address] [address] [address] David Cannon CO2 [Moles/Vol] 23.5 mmol/L Normal 21.0-32.0 [facility] Comment on above: Performed By: #### B MP, TSH #### [facility] [address] [address] [address] David Cannon Creatinine [Mass/Vol] 0.87 mg/dL Normal 0.55-1.02 [facility] Comment on above: Performed By: #### B MP, TSH #### [facility] Laboratory [address] [place] [address] Dr. David Cannon EGFR-AF [place] >60 Normal >=60 [facility] Comment on above: Performed By: #### B MP, TSH #### [facility] [address] [address] [address] David Cannon EGFR-NON AF [place] >60 Normal >=60 [facility] Comment on above: Performed By: #### B MP, TSH #### [facility] [address] [address] [address] David Cannon Glucose [Mass/Vol] 142 mg/dL Critically high 74-106 [facility] Comment on above: Performed By: #### B MP, TSH #### [facility] [address] [address] [address] David Cannon Potassium [Moles/Vol] 3.9 mmol/L Normal 3.5-5.1 [facility] Comment on above: Performed By: #### B MP, TSH #### [facility] [address] [address] [address] David Cannon Sodium [Moles/Vol] 142 mmol/L Normal 136-145 [facility] Comment on above: Performed By: #### B MP, TSH #### [facility] [address] [address] [address] David Cannon Urea nitrogen [Mass/Vol] 15.0 mg/dL Normal 7.0-18.0 [facility] Comment on above: Performed By: #### B MP, TSH #### [facility] [address] [address] [address] David Cannon Urea nitrogen/Creatinine [Mass ratio] 17.2 mg/mg Normal [facility] Comment on above: Performed By: #### B MP, TSH #### [facility] [address] [address] [address] David Cannon TSHon 07-27-2022 TSH 1.753 uIU/mL Normal 0.358-3.740 [facility] Comment on above: Performed By: #### B MP, TSH #### [facility] [address] [address] [address] David Cannon VITAMIN B12on 07-27-2022 Cobalamin (Vitamin B12) [Mass/Vol] 938.0 pg/mL Normal 193.0-986.0 [facility] Comment on above: Performed By: #### V ITB12 ####[facility] [address] [address]Dr. David Cannon VITAMIN D 25 OHon 07-27-2022 VIT D 25-OH 45.3 ng/mL Normal [facility] Comment on above: Performed By: #### V ITAD ####[facility] [address] [id number] Cannon VIT D RANGES SEE BELOW Normal [facility] Comment on above: Result Comment: <20 ng/mL Vit D deficient 20 - <30 ng/mL Vit D insufficient 30 - 100 ng/mL Vit D sufficient >100 ng/mL Potential Toxicity Performed By: #### V ITAD ####[facility] [address] [id number]. David Cannon XR HIP RT 2 3V [...] by: JANNA HASSAN Date: 2022-07-27 21:48 Normal [facility] MG MAMM SCREEN 3D ERIC CADon 07-20-2022 MG MAMM SCREEN 3D ERIC CAD Patient: AFIA GUTIERRES Exam Date: 07/20/2022 : 1955 Gender:F Ordering : DR PHANI PRUITT D.O. Admission #: [id number] Family : Order #: [id number] CLICK HERE TO VIEW EXAM RADIOLOGY REPORT [...] colon cancer at age 72. LOCATION: [facility] BREAST COMPOSITION: Scattered areas fibroglandular [...] M.D. on 07/20/2022 at 14:09 Normal [facility] XR DEXA BONE DENSITYon 07-20 [...] by: CELIA CORMIER Date: 2022-07-20 14:26 Normal [facility] Urinalysis - AUTOMATEDon Appearance (U) clear [employer] Other Bilirubin Ql (U) Negative [employer] Other Color (U) yellow [employer] Other Glucose Ql (U) Negative [employer] Other Hemoglobin Ql (U) Negative [employer] Other Ketones Ql (U) Negative [employer] Other Leukocyte esterase Test strip Ql (U) Negative [employer] Other Nitrite Ql (U) Negative [employer] Other pH (U) 5.5 [pH] [employer] Other Protein Ql (U) Negative [employer] Other Specific gravity (U) [Rel density] 1.025 [employer] Other Urobilinogen (U) [Mass/Vol] 0.2 mg/dL [employer] Other Urinalysis - AUTOMATED [employer] Other XR TSPINE 2 VIEWSon 06-17-19 23 [...] CELIA CORMIER Date: 2022-06-16 13:46 Normal [facility] BNPon 06-07-2022 Natriuretic peptide B (Bld) [Mass/Vol] 68.0 pg/mL Normal <=900.0 [facility] Comment on above: Performed By: #### C RP, CMP, BNP ####[facility] [address] [address]Dr. David Cannon CBC AUTO DIFFon 06-07-2022 BASO # 0.0 103/ul Normal 0.0-0.1 [facility] Comment on above: Performed By: #### C BC ####[facility] [address] [place], [place] [address]Dr. David Cannon Basophils/100 WBC (Bld) 0.5 % Normal 0.2-2.0 [facility] Comment on above: Performed By: #### C BC ####[facility] [address] [place], [place] [address]DrGerry Cannon EO # 0.2 103/ul Normal 0.0-0.7 [facility] Comment on above: Performed By: #### C BC ####[facility] [address] [place], [place] [address]Dr. David Cannon Eosinophils/100 WBC (Bld) 2.0 % Normal 0.9-7.0 [facility] Comment on above: Performed By: #### C BC ####[facility] [address] [place], [place] [address]Dr. David Cannon Erythrocyte distribution width (RBC) [Ratio] 12.3 % Normal 11.0-15.0 [facility] Comment on above: Performed By: #### C BC ####[facility] [address] [place], [place] [address]Dr. David Cannon Hematocrit (Bld) [Volume fraction] 44.4 % Normal 36.0-48.0 [facility] Comment on above: Performed By: #### C BC ####[facility] [address] [address]DrGerry David Cannon Hemoglobin (Bld) [Mass/Vol] 14.3 g/dL Normal 12.0-16.0 [facility] Comment on above: Performed By: #### C BC ####[facility] [address] [place], [place] [address]DrGerry Macielbraeden Davis IG # 0.01 10e3/ul Normal 0.00-0.03 [facility] Comment on above: Performed By: #### C BC ####[facility] [address] [place], [place] [address]DrGerry Cannon IG % 0.1 % Normal 0.0-0.5 [facility] Comment on above: Performed By: #### C BC ####[facility] [address] [place], [place] [address]DrGerry Cannon LYMPH # 2.7 103/ul Normal 1.2-3.8 [facility] Comment on above: Performed By: #### C BC ####[facility] [address] [place], [place] [address]DrGerry Janellbraeden Cannon Lymphocytes/100 WBC (Bld) 37.0 % Normal 20.5-60.0 [facility] Comment on above: Performed By: #### C BC ####[facility] [address] [place], [place] [address]DrGerry Cannon MANUAL DIFF REQ NO Normal [facility] Comment on above: Performed By: #### C BC ####[facility] [address] [place], [place] [address]DrGerry Cannon MCH (RBC) [Entitic mass] 31.4 pg Normal 26.7-34.0 [facility] Comment on above: Performed By: #### C BC ####[facility] [address] [place], [place] [address]DrGerry Cannon MCHC (RBC) [Mass/Vol] 32.2 g/dL Normal 29.9-35.2 [facility] Comment on above: Performed By: #### C BC ####[facility] [address] [address]DrGerry Janellbraeden Cannon MCV (RBC) [Entitic vol] 97.4 fL Normal 81.0-99.0 [facility] Comment on above: Performed By: #### C BC ####[facility] [address] [place], [place] [address]DrGerry Cannon MONO # 0.6 103/ul Normal 0.3-0.8 [facility] Comment on above: Performed By: #### C BC ####[facility] [address] [place], [place] [address]DrGerry Cannon Monocytes/100 WBC (Bld) 7.8 % Normal 1.7-12.0 [facility] Comment on above: Performed By: #### C BC ####[facility] [address] [place], [place] [address]DrGerry Cannon NEUT # 3.9 103/ul Normal 1.4-6.5 [facility] Comment on above: Performed By: #### C BC ####[facility] [address] [place], [place] [address]DrGerry Cannon Neutrophils/100 WBC (Bld) 52.6 % Normal 43.0-75.0 [facility] Comment on above: Performed By: #### C BC ####[facility] [address] [place], [place] [address]DrGerry Cannon Platelet mean volume (Bld) [Entitic vol] 9.0 fL Critically low 9.5-13.5 [facility] Comment on above: Performed By: #### C BC ####[facility] [address] [place], [place] [address]DrGerry Cannon PLT 233 103/ul Normal 150-450 [facility] Comment on above: Performed By: #### C BC ####[facility] [address] [place], [place] [address]DrGerry Cannon RBC 4.56 106/ul Normal 4.20-5.40 [facility] Comment on above: Performed By: #### C BC ####[facility] [address] [address]Dr. David Cannon WBC 7.4 103/ul Normal 4.0-11.0 [facility] Comment on above: Performed By: #### C BC ####[facility] [address] [address]Dr. David Cannon CRPon 06-07-2022 CRP [Mass/Vol] mg/L Normal <=1.0 [facility] Comment on above: Performed By: #### C RP, CMP, BNP ####[facility] [address] [address]Dr. David Cannon CULTURE URINEon 06-07-2022 CULTURE URINE Culture Observations : LIGHT GROWTH OF MIXED GENITAL ANISHA. NO POTENTIAL PATHOGENS SEEN. Normal [facility] Comment on above: Performed By: #### U RCX ####[facility] [address] [address]Dr. David Cannon ER URINE PROFILEon 3 Bilirubin Ql (U) Negative Normal NEGATIVE [facility] Comment on above: Performed By: #### B NILSA, TSH #### [facility] [address] [place] [address] Dr. David Cannon Clarity (U) CLEAR Normal CLEAR [facility] Comment on above: Performed By: #### B NILSA, TSH #### [facility] [address] [place] [address] Dr. David Cannon Color (U) LT. YELLOW Normal YELLOW [facility] Comment on above: Performed By: #### B NILSA, TSH #### [facility] [address] [place] [address] Dr. David OWEN A micrscopic examination will be performed if indicated. Normal [facility] Comment on above: Performed By: #### B MP, TSH #### [facility] [address] [place] [address] Dr. David Cannon Glucose Ql (U) Negative Normal NEGATIVE [facility] Comment on above: Performed By: #### B MP, TSH #### [facility] [address] [place] [address] Dr. David Cannon Hemoglobin Ql (U) Negative Normal NEGATIVE [facility] Comment on above: Performed By: #### B MP, TSH #### [facility] [address] [place] [address] Dr. David Cannon Ketones Ql (U) Negative Normal NEGATIVE [facility] Comment on above: Performed By: #### B MP, TSH #### [facility] [address] [place] [address] Dr. David Cannon LEUKOCYTES SMALL Abnormal NEGATIVE [facility] Comment on above: Performed By: #### B MP, TSH #### [facility] [address] [place] [address] Dr. David Cannon Nitrite Ql (U) Negative Normal NEGATIVE [facility] Comment on above: Performed By: #### B MP, TSH #### [facility] [address] [place] [address] Dr. David Cannon pH (U) 6.0 [pH] Normal 5-9 [facility] Comment on above: Performed By: #### B MP, TSH #### [facility] [address] [place] [address] Dr. David Cannon SPEC GRAVITY 1.010 Normal 1.005-<=1.02 5 [facility] Comment on above: Performed By: #### B MP, TSH #### [facility] [address] [place] [address] Dr. David Cannon UA PROTEIN Negative Normal NEGATIVE/ TRACE [facility] Comment on above: Performed By: #### B MP, TSH #### [facility] [address] [place] [address] Dr. David Cannon UR MICRO IND INDICATED Normal [facility] Comment on above: Performed By: #### B MP, TSH #### [facility] [address] [place] [address] Dr. David Cannon Urobilinogen Qn (U) 0.2 {Skip'U}/dL Normal 0.2 - 1. 0 [facility] Comment on above: Performed By: #### B MP, TSH #### [facility] [address] [address] [address] David Cannon PROF 14(COMP METB)on 023 Albumin [Mass/Vol] 4.3 g/dL Normal 3.4-5.0 [facility] Comment on above: Performed By: #### C RP, CMP, BNP ####[facility] [address] [address]Dr. David Cannon Albumin/Globulin [Mass ratio] 1.1 {ratio} Normal [facility] Comment on above: Performed By: #### C RP, CMP, BNP ####[facility] [address] [address]Dr. David Cannon ALP [Catalytic activity/Vol] 82 U/L Normal 46-116 [facility] Comment on above: Performed By: #### C RP, CMP, BNP ####[facility] [address] [address]Dr. David Cannon ALT [Catalytic activity/Vol] 21 U/L Normal 14-59 [facility] Comment on above: Performed By: #### C RP, CMP, BNP ####[facility] [address] [address]Dr. David Cannon Anion gap [Moles/Vol] 12.3 mmol/L Normal [facility] Comment on above: Performed By: #### C RP, CMP, BNP ####[facility] [address] [address]Dr. David Cannon AST [Catalytic activity/Vol] 15 U/L Normal 15-37 [facility] Comment on above: Performed By: #### C RP, CMP, BNP ####[facility] [address] [address]Dr. David Cannon Bilirubin [Mass/Vol] 0.2 mg/dL Normal 0.2-1.0 [facility] Comment on above: Performed By: #### C RP, CMP, BNP ####[facility] [address] [address]Dr. David Cannon Calcium [Mass/Vol] 9.2 mg/dL Normal 8.5-10.1 [facility] Comment on above: Performed By: #### C RP, CMP, BNP ####[facility] [address] [place], [place] [address]Dr. David Cannon Chloride [Moles/Vol] 104 mmol/L Normal 98-107 [facility] Comment on above: Performed By: #### C RP, CMP, BNP ####[facility] [address] [place], [place] [address]Dr. David Cannon CO2 [Moles/Vol] 31.2 mmol/L Normal 21.0-32.0 [facility] Comment on above: Performed By: #### C RP, CMP, BNP ####[facility] [address] [place], [place] [address]Dr. David Cannon Creatinine [Mass/Vol] 0.52 mg/dL Critically low 0.55-1.02 [facility] Comment on above: Performed By: #### C RP, CMP, BNP ####[facility] [address] [place], [place] [address]Dr. David Cannon EGFR-AF SOU[place]ESE >60 Normal >=60 [facility] Comment on above: Performed By: #### C RP, CMP, BNP ####[facility] [address] [place], [place] [address]Dr. David Cannon EGFR-NON AF [place] >60 Normal >=60 [facility] Comment on above: Performed By: #### C RP, CMP, BNP ####[facility] [address] [place], [place] [address]Dr. David Cannon Globulin (S) [Mass/Vol] 3.9 g/dL Normal [facility] Comment on above: Performed By: #### C RP, CMP, BNP ####[facility] [address] [place], [place] [address]Dr. David Cannon Glucose [Mass/Vol] 79 mg/dL Normal 74-106 [facility] Comment on above: Performed By: #### C RP, CMP, BNP ####[facility] [address] [address]Dr. David Cannon Potassium [Moles/Vol] 3.5 mmol/L Normal 3.5-5.1 [facility] Comment on above: Performed By: #### C RP, CMP, BNP ####[facility] [address] [address]Dr. David Cannon Protein [Mass/Vol] 8.2 g/dL Normal 6.4-8.2 [facility] Comment on above: Performed By: #### C RP, CMP, BNP ####[facility] [address] [address]Dr. David Cannon Sodium [Moles/Vol] 144 mmol/L Normal 136-145 [facility] Comment on above: Performed By: #### C RP, CMP, BNP ####[facility] [address] [address]Dr. David Cannon Urea nitrogen [Mass/Vol] 16.0 mg/dL Normal 7.0-18.0 [facility] Comment on above: Performed By: #### C RP, CMP, BNP ####[facility] [address] [address]Dr. David Cannon Urea nitrogen/Creatinine [Mass ratio] 30.8 mg/mg Normal [facility] Comment on above: Performed By: #### C RP, CMP, BNP ####[facility] [address] [address]Dr. David Cannon PROTIMEon 06-07-2022 INR Coag (PPP) [Relative time] {INR} Normal [facility] Comment on above: Performed By: #### A NARF #### [facility] [address] [address] [address] David Cannon INR GUIDELINES SEE BELOW Normal [facility] Comment on above: Result Comment: SURY RED INR: 2.0 - 3.0 CONDITIONS NOT LISTED BELOW 2.5 - 3.5 FOR PROSTHETIC HEART VALVE REPLACEMENT 2.5 - 3.5 RECURRENT THROMBOSIS Performed By: #### A NARF #### [facility] [address] [address] [address] David Cannon PT Coag (PPP) [Time] 9.6 s Normal 9.0-11.6 [facility] Comment on above: Performed By: #### A NARF #### [facility] [address] [place] [address] Dr. David Cannon PTTon 06-07-2022 aPTT Coag (Bld) [Time] 25.6 s Normal 22.3-36.2 [facility] Comment on above: Performed By: #### A NARF #### [facility] [address] [place] [address] Dr. David Cannon [facility] SED RATE 21 mm/hr Normal <=30 [facility] Comment on above: Performed By: #### S EDR ####[facility] [address] [address]Dr. David Cannon URINE MICROSCOPIC ONLYon BACTERIA SMALL Abnormal NONE SEEN [facility] Comment on above: Performed By: #### B MP, TSH #### [facility] [address] [place] [address] Dr. David Cannon Bacteria identified Cx Nom (U) INDICATED Normal [facility] Comment on above: Performed By: #### B MP, TSH #### [facility] [address] [place] [address] Dr. David Cannon CAST NONE SEEN Normal NONE SEEN [facility] Comment on above: Performed By: #### B MP, TSH #### [facility] [address] [place] [address] Dr. David Cannon Crystals LM Nom (Urine sed) NONE SEEN Normal NONE SEEN [facility] Comment on above: Performed By: #### B MP, TSH #### [facility] [address] [place] [address] Dr. David Cannon Epithelial cells LM Ql (Urine sed) FEW Abnormal NONE SEEN /RARE [facility] Comment on above: Performed By: #### B MP, TSH #### [facility] [address] [place] [address] Dr. David Cannon MUCOUS NONE SEEN Normal NONE SEEN [facility] Comment on above: Performed By: #### B MP, TSH #### [facility] [address] [place] [address] Dr. David Cannon RBC 0-2 Normal 0-2 [facility] Comment on above: Performed By: #### B MP, TSH #### [facility] [address] [place] [address] Dr. David Cannon WBC 5-10 Abnormal NONE SEEN [facility] Comment on above: Performed By: #### B MP, TSH #### [facility] [address] [place] [address] Dr. David Cannon NISHI EIA W/REFLEX 5 BIOMARKER Son 05-30-2022 NISHI Direct Negative Normal Negative [facility] Comment on above: Performed By: #### A NARF #### [facility] [address] [place] [address] Dr. David Cannon C-Reactive Proteinon 023 C-Reactive Protein 0.3 mg/dL <=1.0 mg/dL [employer] Other CBC AUTO DIFFon 05-29-2022 BASO # 0.0 103/ul Normal 0.0-0.1 [facility] Comment on above: Performed By: #### A NARF #### [facility] [address] [place] [address] Dr. David Cannon Basophils/100 WBC (Bld) 0.3 % Normal 0.2-2.0 [facility] Comment on above: Performed By: #### A NARF #### [facility] [address] [place] [address] Dr. David Cannon EO # 0.1 103/ul Normal 0.0-0.7 [facility] Comment on above: Performed By: #### A NARF #### [facility] [address] [place] [address] Dr. David Cannon Eosinophils/100 WBC (Bld) 1.7 % Normal 0.9-7.0 [facility] Comment on above: Performed By: #### A NARF #### [facility] [address] [address] [address] David Cannon Erythrocyte distribution width (RBC) [Ratio] 12.0 % Normal 11.0-15.0 [facility] Comment on above: Performed By: #### A NARF #### [facility] [address] [place] [address] Dr. David Cannon Hematocrit (Bld) [Volume fraction] 43.9 % Normal 36.0-48.0 [facility] Comment on above: Performed By: #### A NARF #### [facility] [address] [place] [address] Dr. David aCnnon Hemoglobin (Bld) [Mass/Vol] 14.0 g/dL Normal 12.0-16.0 [facility] Comment on above: Performed By: #### A NARF #### [facility] [address] [place] [address] Dr. David Cannon IG # 0.02 10e3/ul Normal 0.00-0.03 [facility] Comment on above: Performed By: #### A NARF #### [facility] [address] [place] [address] Dr. David Cannon IG % 0.3 % Normal 0.0-0.5 [facility] Comment on above: Performed By: #### A NARF #### [facility] [address] [place] [address] Dr. David Cannon LYMPH # 2.0 103/ul Normal 1.2-3.8 [facility] Comment on above: Performed By: #### A NARF #### [facility] [address] [place] [address] Dr. David Cannon Lymphocytes/100 WBC (Bld) 31.7 % Normal 20.5-60.0 [facility] Comment on above: Performed By: #### A NARF #### [facility] [address] [place] [address] Dr. David Cannon MANUAL DIFF REQ NO Normal [facility] Comment on above: Performed By: #### A NARF #### [facility] [address] [place] [address] Dr. David Cannon MCH (RBC) [Entitic mass] 30.8 pg Normal 26.7-34.0 [facility] Comment on above: Performed By: #### A NARF #### [facility] [address] [place] [address] Dr. David Cannon MCHC (RBC) [Mass/Vol] 31.9 g/dL Normal 29.9-35.2 [facility] Comment on above: Performed By: #### A NARF #### [facility] [address] [place] [address] Dr. David Cannon MCV (RBC) [Entitic vol] 96.5 fL Normal 81.0-99.0 [facility] Comment on above: Performed By: #### A NARF #### [facility] [address] [place] [address] Dr. David Cannon MONO # 0.4 103/ul Normal 0.3-0.8 [facility] Comment on above: Performed By: #### A NARF #### [facility] [address] [place] [address] Dr. David Cannon Monocytes/100 WBC (Bld) 6.2 % Normal 1.7-12.0 [facility] Comment on above: Performed By: #### A NARF #### [facility] [address] [place] [address] Dr. David Cannon NEUT # 3.9 103/ul Normal 1.4-6.5 [facility] Comment on above: Performed By: #### A NARF #### [facility] [address] [place] [address] Dr. David Cannon Neutrophils/100 WBC (Bld) 59.8 % Normal 43.0-75.0 [facility] Comment on above: Performed By: #### A NARF #### [facility] [address] [place] [address] Dr. David Cannon Platelet mean volume (Bld) [Entitic vol] 8.7 fL Critically low 9.5-13.5 [facility] Comment on above: Performed By: #### A NARF #### [facility] [address] [place], [place] [address] Dr. David Cannon PLT 263 103/ul Normal 150-450 [facility] Comment on above: Performed By: #### A NARF #### [facility] [address] [place], [place] [address] Dr. David Cannon RBC 4.55 106/ul Normal 4.20-5.40 [facility] Comment on above: Performed By: #### A NARF #### [facility] [address] [place], [place] [address] Dr. David Cannon WBC 6.4 103/ul Normal 4.0-11.0 [facility] Comment on above: Performed By: #### A NARF #### [facility] [address] [place], [place] [address] Dr. David Cannon CRPon 05-29-2022 CRP 0.3 mg/dL Normal <=1.0 [facility] Comment on above: Performed By: #### C RP, CMP ####[facility] [address] [place], [place] [address]QqDr. David Cannon Complete Blood Count and Dif jin 05-29-2022 Anisocytosis Ql (Bld) Nor [facility] [employer] Other Basophilic stippling LM Ql (Bld) [facility] [employer] Other RBC morphology finding Nom (Bld) [employer] [facility] [employer] Other Complete Blood Count and Diff [facility] [employer] Other Comprehensive Metabolic Pane sincere 05-29-2022 Albumin/Globulin [Mass ratio] 0.9 {ratio} Normal [facility] [employer] Other Comment on above: Performed By: #### A NARF #### [facility] [address] [address] [address] David Cannon ALP [Catalytic activity/Vol] 79 U/L Normal 46-116 [facility] [employer] Other Comment on above: Performed By: #### A NARF #### [facility] [address] [address] [address] David Cannon ALT [Catalytic activity/Vol] 20 U/L Normal 14-59 [employer] Other Comment on above: Performed By: #### A NARF #### [facility] [address] [address] [address] David Cannon Anion gap [Moles/Vol] 12.7 mmol/L Normal No rt [employer] Other Comment on above: Performed By: #### A NARF #### [facility] [address] [address] [address] Dvaid Cannon AST [Catalytic activity/Vol] 20 U/L Normal 15-37 [employer] Other Comment on above: Performed By: #### A NARF #### [facility] [address] [place] [address] Dr. David Cannon Chloride [Moles/Vol] 102 mmol/L Normal 98-107 [facility] [employer] Other Comment on above: Performed By: #### A NARF #### [facility] [address] [place] [address] Dr. David Cannon Urea nitrogen/Creatinine [Mass ratio] 29.0 mg/mg Normal [employer] Other Comment on above: Performed By: #### A NARF #### [facility] [address] [place] [address] Dr. David Cannon Albumin [Mass/Vol] 3.061203 g/dL 3.4-5.0 g/dL [facility] [employer] Other Calcium [Mass/Vol] 9.0657735 mg/dL 8.5-10 .1 mg/dL [employer] Other CO2 [Moles/Vol] 31.17965288 mmol/L 21.0-3 2.0 mmol/L [employer] Other Creatinine [Mass/Vol] 0.87995693 mg/dL 0. 55-1.02 mg/dL [employer] Other Potassium [Moles/Vol] 4.30024662 mmol/L 3 .5-5.1 mmol/L [employer] Other Protein [Mass/Vol] 8.032559 g/dL 6.4-8.2 g/dL [employer] Other Urea nitrogen [Mass/Vol] 18.0569243 mg/dL 7.0-18.0 mg/dL [employer] Other Comprehensive Metabolic Panel see note [employer] Other Comprehensive Metabolic Panel 142 mmol/L 136-145 mmol/L [employer] Other Comprehensive Metabolic Panel 102 mg/dL 74-106 mg/dL [employer] Other Comprehensive Metabolic Panel >60 mL/min/1.73m2 >=60 mL/min/1.73m 2 [employer] Other Comprehensive Metabolic Panel 0.2 mg/dL 0.2-1.0 mg/dL [employer] Other Comprehensive Metabolic Panel 4.3 g/dL [employer] Other PROF 14(COMP METB)on 023 Albumin [Mass/Vol] 3.8 g/dL Normal 3.4-5.0 [facility] Comment on above: Performed By: #### A NARF #### [facility] [address] [place] [address] Dr. David Cannon Bilirubin [Mass/Vol] 0.2 mg/dL Normal 0.2-1.0 [facility] Comment on above: Performed By: #### A NARF #### [facility] [address] [address] [address] David Cannon Calcium [Mass/Vol] 9.9 mg/dL Normal 8.5-10.1 [facility] Comment on above: Performed By: #### A NARF #### [facility] [address] [address] [address] David Cannon CO2 [Moles/Vol] 31.4 mmol/L Normal 21.0-32.0 [facility] Comment on above: Performed By: #### A NARF #### [facility] [address] [place] [address] Dr. David Cannon Creatinine [Mass/Vol] 0.62 mg/dL Normal 0.55-1.02 [facility] Comment on above: Performed By: #### A NARF #### [facility] [address] [place] [address] Dr. David Cannon EGFR-AF [place] >60 Normal >=60 [facility] Comment on above: Performed By: #### A NARF #### [facility] [address] [place] [address] Dr. David Cannon EGFR-NON AF [place] >60 Normal >=60 [facility] Comment on above: Performed By: #### A NARF #### [facility] [address] [place] [address] Dr. David Cannon Globulin (S) [Mass/Vol] 4.3 g/dL Normal [facility] Comment on above: Performed By: #### A NARF #### [facility] [address] [place] [address] Dr. David Cannon Glucose [Mass/Vol] 102 mg/dL Normal 74-106 [facility] Comment on above: Performed By: #### A NARF #### [facility] [address] [place] [address] Dr. David Cannon Potassium [Moles/Vol] 4.1 mmol/L Normal 3.5-5.1 [facility] Comment on above: Performed By: #### A NARF #### [facility] [address] [place] [address] Dr. David Cannon Protein [Mass/Vol] 8.1 g/dL Normal 6.4-8.2 [facility] Comment on above: Performed By: #### A NARF #### [facility] [address] [place] [address] Dr. David Cannon Sodium [Moles/Vol] 142 mmol/L Normal 136-145 [facility] Comment on above: Performed By: #### A NARF #### [facility] [address] [place] [address] Dr. David Cannon Urea nitrogen [Mass/Vol] 18.0 mg/dL Normal 7.0-18.0 [facility] Comment on above: Performed By: #### A NARF #### [facility] [address] [place] [address] Dr. David Cannon UA RANDOM W/MICROSCOPICon AMORPHOUS CRYSTALS RARE Normal [facility] Comment on above: Performed By: #### B MP, TSH #### [facility] [address] [place] [address] Dr. David Cannon BACTERIA NONE SEEN Normal NONE SEEN [facility] Comment on above: Performed By: #### B MP, TSH #### [facility] [address] [place] [address] Dr. David Cannon Bilirubin Ql (U) Negative Normal NEGATIVE [employer] Other Comment on above: Performed By: #### B MP, TSH #### [facility] [address] [place] [address] Dr. David Cannon CAST NONE SEEN Normal NONE SEEN [facility] Comment on above: Performed By: #### B MP, TSH #### [facility] [address] [place] [address] Dr. David Cannon Clarity (U) CLEAR Normal CLEAR [employer] Other Comment on above: Performed By: #### B MP, TSH #### [facility] [address] [place] [address] Dr. David Cannon Color (U) LT. YELLOW Normal YELLOW [employer] Other Comment on above: Performed By: #### B MP, TSH #### [facility] [address] [place] [address] Dr. David Cannon Crystals LM Nom (Urine sed) SEEN Abnormal NONE SEEN [facility] Comment on above: Performed By: #### B MP, TSH #### [facility] [address] [address] [address] David Cannon Epithelial cells LM Ql (Urine sed) RARE Normal NONE SEEN /RARE [facility] Comment on above: Performed By: #### B MP, TSH #### [facility] [address] [address] [address] David Cannon Glucose Ql (U) Negative Normal NEGATIVE [employer] Other Comment on above: Performed By: #### B MP, TSH #### [facility] [address] [address] [address] David Cannon Hemoglobin Ql (U) Negative Normal NEGATIVE [employer] Other Comment on above: Performed By: #### B MP, TSH #### [facility] [address] [place] [address] Dr. David Cannon Ketones Ql (U) Negative Normal NEGATIVE [employer] Other Comment on above: Performed By: #### B MP, TSH #### [facility] [address] [address] [address] David Cannon LEUKOCYTES Negative Normal NEGATIVE [facility] Comment on above: Performed By: #### B MP, TSH #### [facility] [address] [place] [address] Dr. David Cannon MUCOUS NONE SEEN Normal NONE SEEN [facility] Comment on above: Performed By: #### B MP, TSH #### [facility] [address] [address] [address] David Cannon Nitrite Ql (U) Negative Normal NEGATIVE [employer] Other Comment on above: Performed By: #### B MP, TSH #### [facility] [address] [place] [address] Dr. David Cannon pH (U) 7.0 [pH] Normal 5-9 [employer] Other Comment on above: Performed By: #### B MP, TSH #### [facility] [address] [address] [address] David Cannon RBC 0-2 Normal 0-2 [facility] Comment on above: Performed By: #### B MP, TSH #### [facility] [address] [place] [address] Dr. David Cannon SPEC GRAVITY 1.020 Normal 1.005-<=1.02 5 [facility] Comment on above: Performed By: #### B MP, TSH #### [facility] [address] [place] [address] Dr. David Cannon UA PROTEIN Negative Normal NEGATIVE/ TRACE [facility] Comment on above: Performed By: #### B MP, TSH #### [facility] [address] [place] [address] Dr. David Cannon Urobilinogen Qn (U) 0.2 {Skip'U}/dL Normal 0.2 - 1. 0 [facility] Comment on above: Performed By: #### B MP, TSH #### [facility] [address] [place] [address] Dr. David Cannon WBC NONE SEEN Normal NONE SEEN [facility] Comment on above: Performed By: #### B MP, TSH #### [facility] [address] [place] [address] Dr. David Cannon Crystals LM Nom (Urine sed) SEEN #/HPF Abnormal NONE SEEN #/HPF [employer] Other Epithelial cells LM Ql (Urine sed) RARE #/LPF NONE SEEN /RARE #/LPF [employer] Other UA RANDOM W/MICROSCOPIC 1.020 1.005-<=1.02 5 [employer] Other UA RANDOM W/MICROSCOPIC Negative NEGATIVE [employer] Other UA RANDOM W/MICROSCOPIC 0.2 EU/dl 0.2 - 1.0 EU/dl [employer] Other UA RANDOM W/MICROSCOPIC NONE SEEN #/HPF NONE SEEN #/HPF [employer] Other UA RANDOM W/MICROSCOPIC 0-2 #/HPF 0-2 #/HPF [employer] Other UA RANDOM W/MICROSCOPIC NONE SEEN #/LPF NONE SEEN #/LPF [employer] Other UA RANDOM W/MICROSCOPIC NONE SEEN NONE SEEN [employer] Other UA RANDOM W/MICROSCOPIC RARE [employer] Other CULTURE URINEon 04-13-2022 CULTURE URINE Isolate [...] Trimethoprim/Sulfameth oxazole <=20 S F Normal [facility] Comment on above: Performed By: #### U RCX ####[facility] [id number] [address]Dr. David Cannon VAGINITIS/VAGINOSIS DNA PROB Hugo 04-12-2022 Susan species Negative Normal Negative [facility] Comment on above: Performed By: #### B MP, TSH #### [facility] [address] [address] [address] David Cannon Gardnerella vaginalis Negative Normal Negative [facility] Comment on above: Performed By: #### B MP, TSH #### [facility] [address] [address] [address] David Cannon Trichomonas vaginalis Negative Normal Negative [facility] Comment on above: Performed By: #### B MP, TSH #### [facility] [address] [address] [address] David Cannon BNPon 02-24-2022 Natriuretic peptide B (Bld) [Mass/Vol] 173.0 pg/mL Normal <=900.0 [facility] Comment on above: Performed By: #### B MP, TSH #### [facility] [address] [address] [address] David Cannon CARDIAC WAI 3-6on 2 CK [Catalytic activity/Vol] 47 U/L Normal 26-192 [facility] Comment on above: Performed By: #### B MP, TSH #### [facility] [address] [address] [address] David Cannon CK.MB [Mass/Vol] ng/mL Normal <=3.60 [facility] Comment on above: Performed By: #### B MP, TSH #### [facility] [address] [place] [address] Dr. David Cannon HSTROP 7.0 pg/mL Normal 4.0-51.3 [facility] Comment on above: Result Comment: CUT- OFF POINTS HAVE BEEN ESTABLISHED BASED ON THE FOURTH UNIVERSAL DEFINITIONS OF MYOCARDIAL INFARCTION. THE UPPER REFERENCE LIMIT (URL) OF TROPONIN, DEFINED THE 99TH PERCENTILE OF cTnI DISTRIBUTION IN A REFERENCE POPULATION, HAS BEEN CONFIRMED THE DECISION THRESHOLD FOR DC DIAGNOSIS. Performed By: #### B MP, TSH #### [facility] [address] [place] [address] Dr. David Cannon CK [Catalytic activity/Vol] 44 U/L Normal 26-192 [facility] Comment on above: Performed By: #### B MP, TSH #### [facility] [address] [place] [address] Dr. David Cannon CK.MB [Mass/Vol] ng/mL Normal <=3.60 [facility] Comment on above: Performed By: #### B MP, TSH #### [facility] [address] [place] [address] Dr. David Cannon HSTROP 5.3 pg/mL Normal 4.0-51.3 [facility] Comment on above: Result Comment: CUT- OFF POINTS HAVE BEEN ESTABLISHED BASED ON THE FOURTH UNIVERSAL DEFINITIONS OF MYOCARDIAL INFARCTION. THE UPPER REFERENCE LIMIT (URL) OF TROPONIN, DEFINED THE 99TH PERCENTILE OF cTnI DISTRIBUTION IN A REFERENCE POPULATION, HAS BEEN CONFIRMED THE DECISION THRESHOLD FOR DC DIAGNOSIS. Performed By: #### B MP, TSH #### [facility] [address] [address] [address] David Cannon CBC AUTO DIFFon 02-24-2022 BASO # 0.0 103/ul Normal 0.0-0.1 [facility] Comment on above: Performed By: #### C BC #### [facility] [address] [address] [address] David Cannon Basophils/100 WBC (Bld) 0.3 % Normal 0.2-2.0 [facility] Comment on above: Performed By: #### C BC #### [facility] [address] [address] [address] David Cannon EO # 0.2 103/ul Normal 0.0-0.7 [facility] Comment on above: Performed By: #### C BC #### [facility] [address] [place] [address] Dr. David Cannon Eosinophils/100 WBC (Bld) 2.6 % Normal 0.9-7.0 [facility] Comment on above: Performed By: #### C BC #### [facility] [address] [place] [address] Dr. David Cannon Erythrocyte distribution width (RBC) [Ratio] 12.1 % Normal 11.0-15.0 [facility] Comment on above: Performed By: #### C BC #### [facility] [address] [place] [address] Dr. David Cannon Hematocrit (Bld) [Volume fraction] 39.9 % Normal 36.0-48.0 [facility] Comment on above: Performed By: #### C BC #### [facility] [address] [address] [address] David Cannon Hemoglobin (Bld) [Mass/Vol] 13.2 g/dL Normal 12.0-16.0 [facility] Comment on above: Performed By: #### C BC #### [facility] [address] [address] [address] David Cannon IG # 0.01 10e3/ul Normal 0.00-0.03 [facility] Comment on above: Performed By: #### C BC #### [facility] [address] [place] [address] Dr. David Cannon IG % 0.2 % Normal 0.0-0.5 [facility] Comment on above: Performed By: #### C BC #### [facility] [address] [place] [address] Dr. David Cannon LYMPH # 2.8 103/ul Normal 1.2-3.8 [facility] Comment on above: Performed By: #### C BC #### [facility] [address] [place] [address] Dr. David Cannon Lymphocytes/100 WBC (Bld) 48.1 % Normal 20.5-60.0 [facility] Comment on above: Performed By: #### C BC #### [facility] [address] [place] [address] Dr. David Cannon MANUAL DIFF REQ NO Normal [facility] Comment on above: Performed By: #### C BC #### [facility] [address] [place] [address] Dr. David Cannon MCH (RBC) [Entitic mass] 31.6 pg Normal 26.7-34.0 [facility] Comment on above: Performed By: #### C BC #### [facility] [address] [place] [address] Dr. David Cannon MCHC (RBC) [Mass/Vol] 33.1 g/dL Normal 29.9-35.2 [facility] Comment on above: Performed By: #### C BC #### [facility] [address] [place] [address] Dr. David Cannon MCV (RBC) [Entitic vol] 95.5 fL Normal 81.0-99.0 [facility] Comment on above: Performed By: #### C BC #### [facility] [address] [place] [address] Dr. David Cannon MONO # 0.4 103/ul Normal 0.3-0.8 [facility] Comment on above: Performed By: #### C BC #### [facility] [address] [address] [address] David Cannon Monocytes/100 WBC (Bld) 6.1 % Normal 1.7-12.0 [facility] Comment on above: Performed By: #### C BC #### [facility] [address] [address] [address] David Cannon NEUT # 2.5 103/ul Normal 1.4-6.5 [facility] Comment on above: Performed By: #### C BC #### [facility] [address] [address] [address] David Cannon Neutrophils/100 WBC (Bld) 42.7 % Critically low 43.0-75.0 [facility] Comment on above: Performed By: #### C BC #### [facility] [address] [place] [address] Dr. David Cannon Platelet mean volume (Bld) [Entitic vol] 8.7 fL Critically low 9.5-13.5 [facility] Comment on above: Performed By: #### C BC #### [facility] [address] [place] [address] Dr. David Cannon PLT 166 103/ul Normal 150-450 [facility] Comment on above: Performed By: #### C BC #### [facility] [address] [place] [address] Dr. David Cannon RBC 4.18 106/ul Critically low 4.20-5.40 [facility] Comment on above: Performed By: #### C BC #### [facility] [address] [place] [address] Dr. David Cannon WBC 5.7 103/ul Normal 4.0-11.0 [facility] Comment on above: Performed By: #### C BC #### [facility] [address] [place] [address] Dr. David Cannon PROF 14(COMP METB)on 02-24- 022 Albumin [Mass/Vol] 3.4 g/dL Normal 3.4-5.0 [facility] Comment on above: Performed By: #### B MP, TSH #### [facility] [address] [address] [address] David Cannon Albumin/Globulin [Mass ratio] 1.2 {ratio} Normal [facility] Comment on above: Performed By: #### B MP, TSH #### [facility] [address] [address] [address] David Cannon ALP [Catalytic activity/Vol] 60 U/L Normal 46-116 [facility] Comment on above: Performed By: #### B MP, TSH #### [facility] [address] [address] [address] David Cannon ALT [Catalytic activity/Vol] 16 U/L Normal 14-59 [facility] Comment on above: Performed By: #### B MP, TSH #### [facility] [address] [place] [address] Dr. David Cannon Anion gap [Moles/Vol] 10.5 mmol/L Normal [facility] Comment on above: Performed By: #### B MP, TSH #### [facility] [address] [place] [address] Dr. David Cannon AST [Catalytic activity/Vol] 17 U/L Normal 15-37 [facility] Comment on above: Performed By: #### B MP, TSH #### [facility] [address] [place] [address] Dr. David Cannon Bilirubin [Mass/Vol] 0.4 mg/dL Normal 0.2-1.0 [facility] Comment on above: Performed By: #### B MP, TSH #### [facility] [address] [place] [address] Dr. David Cannon Calcium [Mass/Vol] 8.8 mg/dL Normal 8.5-10.1 [facility] Comment on above: Performed By: #### B MP, TSH #### [facility] [address] [address] [address] David Cannon Chloride [Moles/Vol] 106 mmol/L Normal 98-107 [facility] Comment on above: Performed By: #### B MP, TSH #### [facility] [address] [address] [address] David Cannon CO2 [Moles/Vol] 28.4 mmol/L Normal 21.0-32.0 [facility] Comment on above: Performed By: #### B MP, TSH #### [facility] [address] [address] [address] David Cannon Creatinine [Mass/Vol] 0.61 mg/dL Normal 0.55-1.02 [facility] Comment on above: Performed By: #### B MP, TSH #### [facility] [address] [place] [address] Dr. David Cannon EGFR-AF [place] >60 Normal >=60 [facility] Comment on above: Performed By: #### B MP, TSH #### [facility] [address] [place] [address] Dr. David Cannon EGFR-NON AF [place] >60 Normal >=60 [facility] Comment on above: Performed By: #### B MP, TSH #### [facility] [address] [place] [address] Dr. David Cannon Globulin (S) [Mass/Vol] 2.9 g/dL Normal [facility] Comment on above: Performed By: #### B MP, TSH #### [facility] [address] [place] [address] Dr. David Cannon Glucose [Mass/Vol] 79 mg/dL Normal 74-106 [facility] Comment on above: Performed By: #### B MP, TSH #### [facility] [address] [place] [address] Dr. David Cannon Potassium [Moles/Vol] 3.9 mmol/L Normal 3.5-5.1 [facility] Comment on above: Performed By: #### B MP, TSH #### [facility] [address] [place] [address] Dr. David Cannon Protein [Mass/Vol] 6.3 g/dL Critically low 6.4-8.[address] [facility] Comment on above: Performed By: #### B MP, TSH #### [facility] [address] [place] [address] Dr. David Cannon Sodium [Moles/Vol] 141 mmol/L Normal 136-145 [facility] Comment on above: Performed By: #### B MP, TSH #### [facility] [address] [place] [address] Dr. David Cannon Urea nitrogen [Mass/Vol] 8.0 mg/dL Normal 7.0-18.0 [facility] Comment on above: Performed By: #### B MP, TSH #### [facility] [address] [place] [address] Dr. David Cannon Urea nitrogen/Creatinine [Mass ratio] 13.1 mg/mg Normal [facility] Comment on above: Performed By: #### B NILSA, TSH #### [facility] [address] [place] [address] Dr. David Cannon BNPon 02-23-2022 Natriuretic peptide B (Bld) [Mass/Vol] 124.0 pg/mL Normal <=900.0 [facility] Comment on above: Performed By: #### A NARF #### [facility] [address] [place] [address] Dr. David Cannon CARDIAC WAI 3-6on 2 CK [Catalytic activity/Vol] 44 U/L Normal 26-192 [facility] Comment on above: Performed By: #### B NILSA, TSH #### [facility] [address] [place] [address] Dr. David Cannon CK.MB [Mass/Vol] ng/mL Normal <=3.60 [facility] Comment on above: Result Comment: Prev iously reported as: 0.30 On 02/23/2022 20:39 By JAW Performed By: #### B MP, TSH #### [facility] [address] [place] [address] Dr. David Cannon HSTROP 6.1 pg/mL Normal 4.0-51.3 [facility] Comment on above: Result Comment: CUT- OFF POINTS HAVE BEEN ESTABLISHED BASED ON THE FOURTH UNIVERSAL DEFINITIONS OF MYOCARDIAL INFARCTION. THE UPPER REFERENCE LIMIT (URL) OF TROPONIN, DEFINED THE 99TH PERCENTILE OF cTnI DISTRIBUTION IN A REFERENCE POPULATION, HAS BEEN CONFIRMED THE DECISION THRESHOLD FOR DC DIAGNOSIS. Performed By: #### B MP, TSH #### [facility] [address] [place] [address] Dr. David Cannon CK [Catalytic activity/Vol] 45 U/L Normal 26-192 [facility] Comment on above: Performed By: #### C MREP ####[facility] [id number] [id number]. David Cannon CK.MB [Mass/Vol] ng/mL Normal <=3.60 [facility] Comment on above: Performed By: #### C MREP ####[facility] [id number] [address]Dr. David Cannon HSTROP 5.7 pg/mL Normal 4.0-51.3 [facility] Comment on above: Result Comment: CUT- OFF POINTS HAVE BEEN ESTABLISHED BASED ON THE FOURTH UNIVERSAL DEFINITIONS OF MYOCARDIAL INFARCTION. THE UPPER REFERENCE LIMIT (URL) OF TROPONIN, DEFINED THE 99TH PERCENTILE OF cTnI DISTRIBUTION IN A REFERENCE POPULATION, HAS BEEN CONFIRMED THE DECISION THRESHOLD FOR DC DIAGNOSIS. Performed By: #### C MREP ####[facility] [id number] [address]Dr. David Cannon CBC AUTO DIFFon 02-23-2022 BASO # 0.0 103/ul Normal 0.0-0.1 [facility] Comment on above: Performed By: #### B NILSA, TSH #### [facility] [address] [place] [address] Dr. David Cannon Basophils/100 WBC (Bld) 0.7 % Normal 0.2-2.0 [facility] Comment on above: Performed By: #### B NILSA, TSH #### [facility] [address] [place] [address] Dr. David Cannon EO # 0.1 103/ul Normal 0.0-0.7 [facility] Comment on above: Performed By: #### B NILSA, TSH #### [facility] [address] [place] [address] Dr. David Cannon Eosinophils/100 WBC (Bld) 1.1 % Normal 0.9-7.0 [facility] Comment on above: Performed By: #### B NILSA, TSH #### [facility] [address] [place] [address] Dr. David Cannon Erythrocyte distribution width (RBC) [Ratio] 12.2 % Normal 11.0-15.0 [facility] Comment on above: Performed By: #### B NILSA, TSH #### [facility] [address] [place] [address] Dr. David Cannon Hematocrit (Bld) [Volume fraction] 43.4 % Normal 36.0-48.0 [facility] Comment on above: Performed By: #### B NILSA, TSH #### [facility] [address] [place] [address] Dr. David Cannon Hemoglobin (Bld) [Mass/Vol] 14.4 g/dL Normal 12.0-16.0 [facility] Comment on above: Performed By: #### Shantanu ASH, TSH #### [facility] [address] [place] [address] Dr. David Cannon IG # 0.01 10e3/ul Normal 0.00-0.03 [facility] Comment on above: Performed By: #### Shantanu ASH, TSH #### [facility] [address] [place] [address] Dr. David Cannon IG % 0.2 % Normal 0.0-0.5 [facility] Comment on above: Performed By: #### Shantanu ASH, TSH #### [facility] [address] [place] [address] Dr. David Cannon LYMPH # 1.5 103/ul Normal 1.2-3.8 [facility] Comment on above: Performed By: #### Shantanu ASH, TSH #### [facility] [address] [place] [address] Dr. David Cannon Lymphocytes/100 WBC (Bld) 32.7 % Normal 20.5-60.0 [facility] Comment on above: Performed By: #### Shantanu ASH, TSH #### [facility] [address] [place] [address] Dr. David Cannon MANUAL DIFF REQ NO Normal [facility] Comment on above: Performed By: #### B NILSA, TSH #### [facility] [address] [place] [address] Dr. David Cannon MCH (RBC) [Entitic mass] 31.4 pg Normal 26.7-34.0 [facility] Comment on above: Performed By: #### B MP, TSH #### [facility] [address] [place] [address] Dr. David Cannon MCHC (RBC) [Mass/Vol] 33.2 g/dL Normal 29.9-35.2 [facility] Comment on above: Performed By: #### B NILSA, TSH #### [facility] [address] [place] [address] Dr. David Cannon MCV (RBC) [Entitic vol] 94.8 fL Normal 81.0-99.0 [facility] Comment on above: Performed By: #### B NILSA, TSH #### [facility] [address] [place] [address] Dr. David Cannon MONO # 0.3 103/ul Normal 0.3-0.8 [facility] Comment on above: Performed By: #### B NILSA, TSH #### [facility] [address] [place] [address] Dr. David Cannon Monocytes/100 WBC (Bld) 5.9 % Normal 1.7-12.0 [facility] Comment on above: Performed By: #### B NILSA, TSH #### [facility] [address] [place] [address] Dr. David Cannon NEUT # 2.6 103/ul Normal 1.4-6.5 [facility] Comment on above: Performed By: #### B MP, TSH #### [facility] [address] [place] [address] Dr. David Cannon Neutrophils/100 WBC (Bld) 59.4 % Normal 43.0-75.0 [facility] Comment on above: Performed By: #### B MP, TSH #### [facility] [address] [address] [address] David Cannon Platelet mean volume (Bld) [Entitic vol] 8.6 fL Critically low 9.5-13.5 [facility] Comment on above: Performed By: #### B MP, TSH #### [facility] [address] [address] [address] David Cannon PLT 200 103/ul Normal 150-450 [facility] Comment on above: Performed By: #### B MP, TSH #### [facility] [address] [address] [address] David Cannon RBC 4.58 106/ul Normal 4.20-5.40 [facility] Comment on above: Performed By: #### B MP, TSH #### [facility] [address] [place] [address] Dr. David Cannon WBC 4.4 103/ul Normal 4.0-11.0 [facility] Comment on above: Performed By: #### B MP, TSH #### [facility] [address] [place] [address] Dr. David Cannon Covid-19 PCR ([facility])on 02-09 SARS-CoV-2 (COVID-19) RNA JOSH+probe Ql (Unsp spec) Not detected Normal NOT DETECTED [facility] Comment on above: Result Comment: [...] for this test is supported by the [place] of Health and Human Service's declaration that [...] be used). Performed By: #### C VDTBH ####[facility] [id number] [place], [place] [address]QzDr. Daivd Cannon LIPASEon 02-23-2022 Lipase [Catalytic activity/Vol] 85.0 U/L Normal 73.0-393.0 [facility] Comment on above: Performed By: #### A NARF #### [facility] [address] [place] [address] Dr. David Cannon PROF 14(COMP METB)on 022 Albumin [Mass/Vol] 4.2 g/dL Normal 3.4-5.0 [facility] Comment on above: Performed By: #### A NARF #### [facility] [address] [place] [address] Dr. David Cannon Albumin/Globulin [Mass ratio] 1.2 {ratio} Normal [facility] Comment on above: Performed By: #### A NARF #### [facility] [address] [place] [address] Dr. David Cannon ALP [Catalytic activity/Vol] 67 U/L Normal 46-116 [facility] Comment on above: Performed By: #### A NARF #### [facility] [address] [place] [address] Dr. David Cannon ALT [Catalytic activity/Vol] 19 U/L Normal 14-59 [facility] Comment on above: Performed By: #### A NARF #### [facility] [address] [place] [address] Dr. David Cannon Anion gap [Moles/Vol] 15.1 mmol/L Normal Th [facility] Comment on above: Performed By: #### A NARF #### [facility] [address] [place], [place] [id number] Dr. David Cannon AST [Catalytic activity/Vol] 18 U/L Normal 15-37 [facility] Comment on above: Performed By: #### A NARF #### [facility] [address] [place] [address] Dr. David Cannon Bilirubin [Mass/Vol] 0.3 mg/dL Normal 0.2-1.0 [facility] Comment on above: Performed By: #### A NARF #### [facility] [address] [place] [address] Dr. David Cannon Calcium [Mass/Vol] 9.7 mg/dL Normal 8.5-10.1 [facility] Comment on above: Performed By: #### A NARF #### [facility] [address] [place] [address] Dr. David Cannon Chloride [Moles/Vol] 103 mmol/L Normal 98-107 [facility] Comment on above: Performed By: #### A NARF #### [facility] [address] [place] [address] Dr. David Cannon CO2 [Moles/Vol] 29.0 mmol/L Normal 21.0-32.0 [facility] Comment on above: Performed By: #### A NARF #### [facility] [address] [place] [address] Dr. David Cannon Creatinine [Mass/Vol] 0.67 mg/dL Normal 0.55-1.02 [facility] Comment on above: Performed By: #### A NARF #### [facility] [address] [place] [address] Dr. David Cannon EGFR-AF [place] >60 Normal >=60 [facility] Comment on above: Performed By: #### A NARF #### [facility] [address] [place] [address] Dr. David Cannon EGFR-NON AF [place] >60 Normal >=60 [facility] Comment on above: Performed By: #### A NARF #### [facility] [address] [place] [address] Dr. David Cannon Globulin (S) [Mass/Vol] 3.6 g/dL Normal [facility] Comment on above: Performed By: #### A NARF #### [facility] [address] [place] [address] Dr. David Cannon Glucose [Mass/Vol] 130 mg/dL Critically high 74-106 [facility] Comment on above: Performed By: #### A NARF #### [facility] [address] [address] [address] David Cannon Potassium [Moles/Vol] 4.1 mmol/L Normal 3.5-5.1 [facility] Comment on above: Performed By: #### A NARF #### [facility] [address] [address] [address] David Cannon Protein [Mass/Vol] 7.8 g/dL Normal 6.4-8.2 [facility] Comment on above: Performed By: #### A NARF #### [facility] [address] [address] [address] David Cannon Sodium [Moles/Vol] 143 mmol/L Normal 136-145 [facility] Comment on above: Performed By: #### A NARF #### [facility] [address] [address] [address] David Cannon Urea nitrogen [Mass/Vol] 11.0 mg/dL Normal 7.0-18.0 [facility] Comment on above: Performed By: #### A NARF #### [facility] [address] [address] [address] David Cannon Urea nitrogen/Creatinine [Mass ratio] 16.4 mg/mg Normal [facility] Comment on above: Performed By: #### A NARF #### [facility] [address] [address] [address] David Cannon PROTIMEon 02-23-2022 INR Coag (PPP) [Relative time] {INR} Normal [facility] Comment on above: Performed By: #### B MP, TSH #### [facility] [address] [address] [address] David Cannon INR GUIDELINES SEE BELOW Normal [facility] Comment on above: Result Comment: SURY RED INR: 2.0 - 3.0 CONDITIONS NOT LISTED BELOW 2.5 - 3.5 FOR PROSTHETIC HEART VALVE REPLACEMENT 2.5 - 3.5 RECURRENT THROMBOSIS Performed By: #### B MP, TSH #### [facility] [address] [address] [address] David Cannon PT Coag (PPP) [Time] 10.0 s Normal 9.0-11.6 [facility] Comment on above: Performed By: #### B MP, TSH #### [facility] [address] [address] [address] David Cannon PTTon 02-23-2022 aPTT Coag (Bld) [Time] 25.4 s Normal 22.3-36.2 [facility] Comment on above: Performed By: #### B MP, TSH #### [facility] [address] [address] [address] David Cannon TROPONIN, HIGH SENSITIVITYon 02-23-2022 HSTROP 6.0 pg/mL Normal 4.0-51.3 [facility] Comment on above: Result Comment: CUT- OFF POINTS HAVE BEEN ESTABLISHED BASED ON THE FOURTH UNIVERSAL DEFINITIONS OF MYOCARDIAL INFARCTION. THE UPPER REFERENCE LIMIT (URL) OF TROPONIN, DEFINED THE 99TH PERCENTILE OF cTnI DISTRIBUTION IN A REFERENCE POPULATION, HAS BEEN CONFIRMED THE DECISION THRESHOLD FOR DC DIAGNOSIS. Performed By: #### A NARF #### [facility] [address] [place] [address] Dr. David Cannon XR CHEST 1 Von [...] by: LONI SALAS Date: 2022-02-23 16:18 Normal [facility] CT ABD/PELV W CONon 01-08-20 CT ABD/PELV [...] CHAIM MEZA Date: 2022-01-06 22:12 Normal [facility] AMYLASEon 01-06-2022 Amylase [Catalytic activity/Vol] 34 U/L Normal 25-115 [facility] Comment on above: Performed By: #### C ELAINE ASH ####[facility] [address] [address]Dr. David Cannon CBC AUTO DIFFon 01-06-2022 BASO # 0.0 103/ul Normal 0.0-0.1 [facility] Comment on above: Performed By: #### A NARF #### [facility] [address] [place], [place] [address] Dr. David Cannon Basophils/100 WBC (Bld) 0.5 % Normal 0.2-2.0 [facility] Comment on above: Performed By: #### A NARF #### [facility] [address] [place] [address] Dr. David Cannon EO # 0.1 103/ul Normal 0.0-0.7 [facility] Comment on above: Performed By: #### A NARF #### [facility] [address] [place] [address] Dr. David Cannon Eosinophils/100 WBC (Bld) 1.4 % Normal 0.9-7.0 [facility] Comment on above: Performed By: #### A NARF #### [facility] [address] [place] [address] Dr. David Cannon Erythrocyte distribution width (RBC) [Ratio] 12.0 % Normal 11.0-15.0 [facility] Comment on above: Performed By: #### A NARF #### [facility] [address] [place] [address] Dr. David Cannon Hematocrit (Bld) [Volume fraction] 44.6 % Normal 36.0-48.0 [facility] Comment on above: Performed By: #### A NARF #### [facility] [address] [place] [address] Dr. David Cannon Hemoglobin (Bld) [Mass/Vol] 14.5 g/dL Normal 12.0-16.0 [facility] Comment on above: Performed By: #### A NARF #### [facility] [address] [place] [address] Dr. David Cannon IG # 0.01 10e3/ul Normal 0.00-0.03 [facility] Comment on above: Performed By: #### A NARF #### [facility] [address] [place] [address] Dr. David Cannon IG % 0.2 % Normal 0.0-0.5 [facility] Comment on above: Performed By: #### A NARF #### [facility] [address] [place] [address] Dr. David Cannon LYMPH # 2.5 103/ul Normal 1.2-3.8 [facility] Comment on above: Performed By: #### A NARF #### [facility] [address] [place] [address] Dr. David Cannon Lymphocytes/100 WBC (Bld) 42.6 % Normal 20.5-60.0 [facility] Comment on above: Performed By: #### A NARF #### [facility] [address] [place] [address] Dr. David Cannon MANUAL DIFF REQ NO Normal [facility] Comment on above: Performed By: #### A NARF #### [facility] [address] [place] [address] Dr. David Cannon MCH (RBC) [Entitic mass] 31.6 pg Normal 26.7-34.0 [facility] Comment on above: Performed By: #### A NARF #### [facility] [address] [place] [address] Dr. David Cannon MCHC (RBC) [Mass/Vol] 32.5 g/dL Normal 29.9-35.2 [facility] Comment on above: Performed By: #### A NARF #### [facility] [address] [place] [address] Dr. David Cannon MCV (RBC) [Entitic vol] 97.2 fL Normal 81.0-99.0 [facility] Comment on above: Performed By: #### A NARF #### [facility] [address] [place] [address] Dr. David Cannon MONO # 0.4 103/ul Normal 0.3-0.8 [facility] Comment on above: Performed By: #### A NARF #### [facility] [address] [place] [address] Dr. David Cannon Monocytes/100 WBC (Bld) 5.9 % Normal 1.7-12.0 [facility] Comment on above: Performed By: #### A NARF #### [facility] [address] [place] [address] Dr. David Cannon NEUT # 2.9 103/ul Normal 1.4-6.5 [facility] Comment on above: Performed By: #### A NARF #### [facility] [address] [id number] David Cannon Neutrophils/100 WBC (Bld) 49.4 % Normal 43.0-75.0 [facility] Comment on above: Performed By: #### A NARF #### [facility] [address] [id number] David Cannon Platelet mean volume (Bld) [Entitic vol] 9.1 fL Critically low 9.5-13.5 [facility] Comment on above: Performed By: #### A NARF #### [facility] [address] [address] [address] David Cannon PLT 257 103/ul Normal 150-450 [facility] Comment on above: Performed By: #### A NARF #### [facility] [id number] [address] David Cannon RBC 4.59 106/ul Normal 4.20-5.40 [facility] Comment on above: Performed By: #### A NARF #### [facility] [address] [address] [address] David Cannon WBC 5.9 103/ul Normal 4.0-11.0 [facility] Comment on above: Performed By: #### A NARF #### [facility] [id number] David Cannon D-DIMERon 01-06-2022 D-DIMER 0.67 mg/L FEU Critically high <=0.59 [facility] Comment on above: Performed By: #### D DIM ####[facility] [address] [place], [place] [address]OsDr. David Cannon D-DIMER COMMENTS SEE BELOW Normal [facility] Comment on above: Result Comment: Incr [...] generalized hospitalization. Performed By: #### D DIM ####[facility] [address] [place], [place] [address]Dr. David Cannon PROF 14(COMP METB)on 022 Albumin [Mass/Vol] 4.0 g/dL Normal 3.4-5.0 [facility] Comment on above: Performed By: #### C NILSA, ELAINE ####[facility] [address] [place], [place] [address]Dr. David Cannon Albumin/Globulin [Mass ratio] 1.2 {ratio} Normal [facility] Comment on above: Performed By: #### C NILSA, ELAINE ####[facility] [address] [place], [place] [address]Dr. David Cannon ALP [Catalytic activity/Vol] 78 U/L Normal 46-116 [facility] Comment on above: Performed By: #### C NILSA, ELAINE ####[facility] [address] [place], [place] [address]Dr. David Cannon ALT [Catalytic activity/Vol] 23 U/L Normal 14-59 [facility] Comment on above: Performed By: #### C NILSA, ELAINE ####[facility] [address] [place], [place] [address]Dr. David Cannon Anion gap [Moles/Vol] 10.8 mmol/L Normal [facility] Comment on above: Performed By: #### C NILSA, ELAINE ####[facility] [address] [place], [place] [address]Dr. David Cannon AST [Catalytic activity/Vol] 28 U/L Normal 15-37 [facility] Comment on above: Performed By: #### C NILSA, ELAINE ####[facility] [address] [place], [place] [address]Dr. David Cannon Bilirubin [Mass/Vol] 0.3 mg/dL Normal 0.2-1.0 [facility] Comment on above: Performed By: #### C NILSA, ELAINE ####[facility] [address] [place], [place] [address]Dr. David Cannon Calcium [Mass/Vol] 9.1 mg/dL Normal 8.5-10.1 [facility] Comment on above: Performed By: #### C NILSA, ELAINE ####[facility] [address] [address]Dr. David Cannon Chloride [Moles/Vol] 102 mmol/L Normal 98-107 [facility] Comment on above: Performed By: #### C NILSA, ELAINE ####[facility] [address] [place], [place] [address]Dr. David Cannon CO2 [Moles/Vol] 30.3 mmol/L Normal 21.0-32.0 [facility] Comment on above: Performed By: #### C NILSA, ELAINE ####[facility] [address] [place], [place] [address]Dr. Janellbraeden Cannon Creatinine [Mass/Vol] 0.46 mg/dL Critically low 0.55-1.02 [facility] Comment on above: Performed By: #### C NILSA, ELAINE ####[facility] [address] [place], [place] [address]Dr. David Davis EGFR-AF [place] >60 Normal >=60 [facility] Comment on above: Performed By: #### C NILSA, ELAINE ####[facility] [address] [place], [place] [address]Dr. David Davis EGFR-NON AF [place] >60 Normal >=60 [facility] Comment on above: Performed By: #### C NILSA, ELAINE ####[facility] [address] [place], [place] [address]Dr. David Davis Globulin (S) [Mass/Vol] 3.4 g/dL Normal [facility] Comment on above: Performed By: #### C NILSA, ELAINE ####[facility] [address] [place], [place] [address]Dr. David Davis Glucose [Mass/Vol] 111 mg/dL Critically high 74-106 [facility] Comment on above: Performed By: #### C NILSA, ELAINE ####[facility] Br[address] [place], [place] [address]Dr. David Cannon Potassium [Moles/Vol] 4.1 mmol/L Normal 3.5-5.1 [facility] Comment on above: Performed By: #### C MP, ELAINE ####[facility] [address] [place], [place] [address]Dr. David Cannon Protein [Mass/Vol] 7.4 g/dL Normal 6.4-8.2 [facility] Comment on above: Performed By: #### C MP, ELAINE ####[facility] [address] [place], [place] [address]Dr. David Cannon Sodium [Moles/Vol] 139 mmol/L Normal 136-145 [facility] Comment on above: Performed By: #### C NILSA, ELAINE ####[facility] L[address] [place], [place] [address]Dr. David Cannon Urea nitrogen [Mass/Vol] 14.0 mg/dL Normal 7.0-18.0 [facility] Comment on above: Performed By: #### C NILSA, ELAINE ####[facility] [address] [place], [place] [address]Dr. David Cannon Urea nitrogen/Creatinine [Mass ratio] 30.4 mg/mg Normal [facility] Comment on above: Performed By: #### C NILSA, ELAINE ####[facility] [address] [place], [place] [address]Dr. David Cannon CBC AUTO DIFFon 11-28-2021 BASO # 0.0 103/ul Normal 0.0-0.1 [facility] Comment on above: Performed By: #### C BC ####[facility] [address] [place], [place] [address]Dr. David Davis Basophils/100 WBC (Bld) 0.8 % Normal 0.2-2.0 [facility] Comment on above: Performed By: #### C BC ####[facility] [address] [place], [place] [address]Dr. Janellbraeden Cannon EO # 0.1 103/ul Normal 0.0-0.7 [facility] Comment on above: Performed By: #### C BC ####[facility] [address] [address]Dr. David Cannon Eosinophils/100 WBC (Bld) 3.0 % Normal 0.9-7.0 [facility] Comment on above: Performed By: #### C BC ####[facility] [address] [address]Dr. David Cannon Erythrocyte distribution width (RBC) [Ratio] 11.9 % Normal 11.0-15.0 [facility] Comment on above: Performed By: #### C BC ####[facility] [address] [place], [place] [address]Dr. David Cannon Hematocrit (Bld) [Volume fraction] 42.4 % Normal 36.0-48.0 [facility] Comment on above: Performed By: #### C BC ####[facility] Mr[address]cy[address] [place], [place] [address]Dr. David Cannon Hemoglobin (Bld) [Mass/Vol] 13.3 g/dL Normal 12.0-16.0 [facility] Comment on above: Performed By: #### C BC ####[facility] [address] [place], [place] [address]Dr. David Cannon IG # 0.01 10e3/ul Normal 0.00-0.03 [facility] Comment on above: Performed By: #### C BC ####[facility] [address] [address]Dr. David Cannon IG % 0.3 % Normal 0.0-0.5 [facility] Comment on above: Performed By: #### C BC ####[facility] [address] [place], [place] [address]Dr. David Cannon LYMPH # 1.6 103/ul Normal 1.2-3.8 [facility] Comment on above: Performed By: #### C BC ####[facility] [address] [place], [place] [address]Dr. David Cannon Lymphocytes/100 WBC (Bld) 39.6 % Normal 20.5-60.0 [facility] Comment on above: Performed By: #### C BC ####[facility] [address] [address]Dr. David Cannon MANUAL DIFF REQ NO Normal [facility] Comment on above: Performed By: #### C BC ####[facility] [address] [address]Dr. David Cannon MCH (RBC) [Entitic mass] 31.6 pg Normal 26.7-34.0 [facility] Comment on above: Performed By: #### C BC ####[facility] [address] [place], [place] [address]Dr. David Cannon MCHC (RBC) [Mass/Vol] 31.4 g/dL Normal 29.9-35.2 [facility] Comment on above: Performed By: #### C BC ####[facility] [address] [place], [place] [address]Dr. David Cannon MCV (RBC) [Entitic vol] 100.7 fL Critically high 81.0-99.0 [facility] Comment on above: Performed By: #### C BC ####[facility] [address] [place], [place] [address]Dr. David Cannon MONO # 0.4 103/ul Normal 0.3-0.8 [facility] Comment on above: Performed By: #### C BC ####[facility] [address] [place], [place] [address]Dr. David Davis Monocytes/100 WBC (Bld) 11.2 % Normal 1.7-12.0 [facility] Comment on above: Performed By: #### C BC ####[facility] [address] [place], [place] [address]Dr. David Cannon NEUT # 1.8 103/ul Normal 1.4-6.5 [facility] Comment on above: Performed By: #### C BC ####[facility] [address] [place], [place] [address]Dr. David Cannon Neutrophils/100 WBC (Bld) 45.1 % Normal 43.0-75.0 [facility] Comment on above: Performed By: #### C BC ####[facility] [address] [place], [place] [address]Ca. David Davis Platelet mean volume (Bld) [Entitic vol] 9.1 fL Critically low 9.5-13.5 [facility] Comment on above: Performed By: #### C BC ####[facility] [address] [place], [place] [address]Go. David Davis PLT 177 103/ul Normal 150-450 [facility] Comment on above: Performed By: #### C BC ####[facility] [address] [place], [place] [address]Td. David Davis RBC 4.21 106/ul Normal 4.20-5.40 [facility] Comment on above: Performed By: #### C BC ####[facility] [address] [place], [place] [address]Hj. David Davis WBC 3.9 103/ul Critically low 4.0-11.0 [facility] Comment on above: Performed By: #### C BC ####[facility] [address] [place], [place] [address]GoGerry Janellbraeden Cannon CRPon 11-28-2021 CRP [Mass/Vol] mg/L Normal <=1.0 [facility] Comment on above: Performed By: #### A NARF #### [facility] [address] [place], [place] [address] Dr. David Cannon XR LSPINE 2_3 VIEWSon 2021 XR LSPINE 2_3 VIEWS EXAMINATION: XR LSPI NE 2_3 VIEWS, XR SACRUM_COCCYX HISTORY: History of fall COMPARISON: 10/16/2021 CT exam FINDINGS: BONES: Rotatory levocurvature centered at L3. Kyphoplasty at L2. 40% anterior superior wedge compression fracture of T12. Left superior wedge compression fracture of L5. Minimal degenerative spondylosis. Xpuo-nl-mygucjsi facet osteoarthropathy. DISC SPACES: Multilevel disc space narrowing PARASPINOUS: Negative. No paraspinous abnormality is seen. OTHER: Negative. IMPRESSION: Grossly stable from CT exam performed 4 days ago Electronically authenticated by: JANNA LAWTON Date: 2021-10-20 12:06 Normal [facility] CULTURE URINEon 10-18-2021 CULTURE URINE Isolate 1 [...] Trimethoprim/Sulfameth oxazole <=20 S F Normal [facility] Comment on above: Performed By: #### U RCX ####[facility] [address] [address]DrGerry Cannon AMYLASEon 10-16-2021 Amylase [Catalytic activity/Vol] 35 U/L Normal 25-115 [facility] Comment on above: Performed By: #### B MP, TSH #### [facility] [address] [address] [address] David Cannon CBC AUTO DIFFon 10-16-2021 BASO # 0.0 103/ul Normal 0.0-0.1 [facility] Comment on above: Performed By: #### C BC ####[facility] [address] [address]DrGerry Cannon Basophils/100 WBC (Bld) 0.7 % Normal 0.2-2.0 [facility] Comment on above: Performed By: #### C BC ####[facility] [address] [address]DrGerry Cannon EO # 0.1 103/ul Normal 0.0-0.7 [facility] Comment on above: Performed By: #### C BC ####[facility] [address] [address]DrGerry Cannon Eosinophils/100 WBC (Bld) 1.0 % Normal 0.9-7.0 [facility] Comment on above: Performed By: #### C BC ####[facility] [address] [address]Dr. David Cannon Erythrocyte distribution width (RBC) [Ratio] 11.7 % Normal 11.0-15.0 [facility] Comment on above: Performed By: #### C BC ####[facility] [address] [place], [place] [address]Dr. David Cannon Hematocrit (Bld) [Volume fraction] 46.9 % Normal 36.0-48.0 [facility] Comment on above: Performed By: #### C BC ####[facility] [address] [place], [place] [address]Dr. David Cannon Hemoglobin (Bld) [Mass/Vol] 15.2 g/dL Normal 12.0-16.0 [facility] Comment on above: Performed By: #### C BC ####[facility] [address] [place], [place] [address]Dr. David Cannon IG # 0.01 10e3/ul Normal 0.00-0.03 [facility] Comment on above: Performed By: #### C BC ####[facility] [address] [place], [place] [address]Dr. David Cannon IG % 0.2 % Normal 0.0-0.5 [facility] Comment on above: Performed By: #### C BC ####[facility] [address] [place], [place] [address]Dr. David Cannon LYMPH # 1.7 103/ul Normal 1.2-3.8 [facility] Comment on above: Performed By: #### C BC ####[facility] [address] [place], [place] [address]Dr. David Cannon Lymphocytes/100 WBC (Bld) 29.0 % Normal 20.5-60.0 [facility] Comment on above: Performed By: #### C BC ####[facility] [address] [place], [place] [address]Dr. David Cannon MANUAL DIFF REQ NO Normal [facility] Comment on above: Performed By: #### C BC ####[facility] [address] [place] [address]Dr. David Davis MCH (RBC) [Entitic mass] 32.0 pg Normal 26.7-34.0 [facility] Comment on above: Performed By: #### C BC ####[facility] [address] [address]Dr. David Davis MCHC (RBC) [Mass/Vol] 32.4 g/dL Normal 29.9-35.2 [facility] Comment on above: Performed By: #### C BC ####[facility] [id number] [address]Dr. David Cannon MCV (RBC) [Entitic vol] 98.7 fL Normal 81.0-99.0 [facility] Comment on above: Performed By: #### C BC ####[facility] [address] [place], [place] [address]Dr. David Cannon MONO # 0.4 103/ul Normal 0.3-0.8 [facility] Comment on above: Performed By: #### C BC ####[facility] [address] [place], [place] [address]Dr. David aCnnon Monocytes/100 WBC (Bld) 6.6 % Normal 1.7-12.0 [facility] Comment on above: Performed By: #### C BC ####[facility] [address] [place], [place] [address]Dr. David Cannon NEUT # 3.7 103/ul Normal 1.4-6.5 [facility] Comment on above: Performed By: #### C BC ####[facility] X[address] [place], [place] [address]Dr. David Cannon Neutrophils/100 WBC (Bld) 62.5 % Normal 43.0-75.0 [facility] Comment on above: Performed By: #### C BC ####[facility] [address] [place], [place] [address]Dr. David Cannon Platelet mean volume (Bld) [Entitic vol] 9.5 fL Normal 9.5-13.5 [facility] Comment on above: Performed By: #### C BC ####[facility] [address] [place], [place] [address]Yp. David Cannon PLT 216 103/ul Normal 150-450 [facility] Comment on above: Performed By: #### C BC ####[facility] [address] [place], [place] [address]Kf. David Cannon RBC 4.75 106/ul Normal 4.20-5.40 [facility] Comment on above: Performed By: #### C BC ####[facility] [address] [place], [place] [address]Nv. David Cannon WBC 5.9 103/ul Normal 4.0-11.0 [facility] Comment on above: Performed By: #### C BC ####[facility] [address] [place], [place] [address] ABD/PELV W CONon 10-17-19 [...] JANNA DHALIWAL Date: 2021-10-16 15:43 Normal [facility] ER URINE PROFILEon 2 Bilirubin Ql (U) Negative Normal NEGATIVE [facility] Comment on above: Performed By: #### U MICRO, ERUR #### [facility] [address] [place] [address] Dr. David Cannon Clarity (U) SL CLOUDY Abnormal CLEAR [facility] Comment on above: Performed By: #### U MICRO, ERUR #### [facility] [address] [place] [address] Dr. David Cannon Color (U) YELLOW Normal YELLOW [facility] Comment on above: Performed By: #### U MICRO, ERUR #### [facility] [address] [address] [address] Daivd Cannon ERUAHD A micrscopic examination will be performed if indicated. Normal [facility] Comment on above: Performed By: #### U MICRO, ERUR #### [facility] [address] [address] [address] David Cannon Glucose Ql (U) Negative Normal NEGATIVE [facility] Comment on above: Performed By: #### U MICRO, ERUR #### [facility] [address] [place] [address] Dr. David Cannon Hemoglobin Ql (U) Negative Normal NEGATIVE [facility] Comment on above: Performed By: #### U MICRO, ERUR #### [facility] [address] [place] [address] Dr. David Cannon Ketones Ql (U) TRACE Abnormal NEGATIVE [facility] Comment on above: Performed By: #### U MICRO, ERUR #### [facility] [address] [place] [address] Dr. David Cannon LEUKOCYTES SMALL Abnormal NEGATIVE [facility] Comment on above: Performed By: #### U MICRO, ERUR #### [facility] [address] [place] [address] Dr. David Cnanon Nitrite Ql (U) Positive Abnormal NEGATIVE [facility] Comment on above: Performed By: #### U MICRO, ERUR #### [facility] [address] [place] [address] Dr. David Cannon pH (U) 5.5 [pH] Normal 5-9 [facility] Comment on above: Performed By: #### U MICRO, ERUR #### [facility] [address] [place] [address] Dr. David Cannon SPEC GRAVITY >=1.030 Abnormal 1.005-<=1.[address] [place] [address] Comment on above: Performed By: #### U MICRO, ERUR #### [facility] [address] [place] [address] Dr. David Cannon UA PROTEIN Negative Normal NEGATIVE/ TRACE [facility] Comment on above: Performed By: #### U MICRO, ERUR #### [facility] [address] [place] [address] Dr. David Cannon UR MICRO IND INDICATED Normal [facility] Comment on above: Performed By: #### U MICRO, ERUR #### [facility] [address] [place] [address] Dr. David Cannon Urobilinogen Qn (U) 0.2 {Skip'U}/dL Normal 0.2 - 1. 0 [facility] Comment on above: Performed By: #### U MICRO, ERUR #### [facility] [address] [place] [address] Dr. David Cannon LIPASEon 10-16-2021 Lipase [Catalytic activity/Vol] 93.0 U/L Normal 73.0-393.0 [facility] Comment on above: Performed By: #### B MP, TSH #### [facility] [address] [place] [address] Dr. David Cannon PROF 14(COMP METB)on 022 Albumin [Mass/Vol] 4.1 g/dL Normal 3.4-5.0 [facility] Comment on above: Performed By: #### B MP, TSH #### [facility] [address] [place] [address] Dr. David Cannon Albumin/Globulin [Mass ratio] 1.1 {ratio} Normal [facility] Comment on above: Performed By: #### B NILSA, TSH #### [facility] [address] [place] [address] Dr. David Cannon ALP [Catalytic activity/Vol] 88 U/L Normal 46-116 [facility] Comment on above: Performed By: #### B NILSA, TSH #### [facility] [address] [place] [address] Dr. David Cannon ALT [Catalytic activity/Vol] 17 U/L Normal 14-59 [facility] Comment on above: Performed By: #### B NILSA, TSH #### [facility] [address] [place] [address] Dr. David Cannon Anion gap [Moles/Vol] 12.4 mmol/L Normal [facility] Comment on above: Performed By: #### B NILSA, TSH #### [facility] [address] [place] [address] Dr. David Cannon AST [Catalytic activity/Vol] 15 U/L Normal 15-37 [facility] Comment on above: Performed By: #### B NILSA, TSH #### [facility] [address] [place] [address] Dr. David Cannon Bilirubin [Mass/Vol] 0.2 mg/dL Normal 0.2-1.0 [facility] Comment on above: Performed By: #### B NILSA, TSH #### [facility] [address] [place] [address] Dr. David Cannon Calcium [Mass/Vol] 9.8 mg/dL Normal 8.5-10.1 [facility] Comment on above: Performed By: #### B MP, TSH #### [facility] [address] [place] [address] Dr. David Cannon Chloride [Moles/Vol] 103 mmol/L Normal 98-107 [facility] Comment on above: Performed By: #### B MP, TSH #### [facility] [address] [place] [address] Dr. David Cannon CO2 [Moles/Vol] 30.6 mmol/L Normal 21.0-32.0 [facility] Comment on above: Performed By: #### B NILSA, TSH #### [facility] [address] [place] [address] Dr. David Cannon Creatinine [Mass/Vol] 0.85 mg/dL Normal 0.55-1.02 [facility] Comment on above: Performed By: #### B NILSA, TSH #### [facility] [address] [place] [address] Dr. David Cannon EGFR-AF [place] >60 Normal >=60 [facility] Comment on above: Performed By: #### B NILSA, TSH #### [facility] [address] [place] [address] Dr. David Cannon EGFR-NON AF [place] >60 Normal >=60 [facility] Comment on above: Performed By: #### B NILSA, TSH #### [facility] [address] [place] [address] Dr. David Cannon Globulin (S) [Mass/Vol] 3.8 g/dL Normal [facility] Comment on above: Performed By: #### B MP, TSH #### [facility] [address] [place] [address] Dr. David Cannon Glucose [Mass/Vol] 119 mg/dL Critically high 74-106 [facility] Comment on above: Performed By: #### B NILSA, TSH #### [facility] [address] [place] [address] Dr. David Cannon Potassium [Moles/Vol] 4.0 mmol/L Normal 3.5-5.1 [facility] Comment on above: Performed By: #### B NILSA, TSH #### [facility] [address] [place] [address] Dr. David Cannon Protein [Mass/Vol] 7.9 g/dL Normal 6.4-8.2 [facility] Comment on above: Performed By: #### B NILSA, TSH #### [facility] [address] [place] [address] Dr. David Cannon Sodium [Moles/Vol] 142 mmol/L Normal 136-145 [facility] Comment on above: Performed By: #### B NILSA, TSH #### [facility] [address] [place] [address] Dr. David Cannon Urea nitrogen [Mass/Vol] 12.0 mg/dL Normal 7.0-18.0 [facility] Comment on above: Performed By: #### B NILSA, TSH #### [facility] [address] [place] [address] Dr. David Cannon Urea nitrogen/Creatinine [Mass ratio] 14.1 mg/mg Normal [facility] Comment on above: Performed By: #### B NILSA, TSH #### [facility] [address] [place] [address] Dr. David Cannon URINE MICROSCOPIC ONLYon BACTERIA LARGE Abnormal NONE SEEN [facility] Comment on above: Performed By: #### U MICRO, ERUR #### [facility] [address] [place] [address] Dr. David Cannon Bacteria identified Cx Nom (U) INDICATED Normal [facility] Comment on above: Performed By: #### U MICRO, ERUR #### [facility] [address] [place] [address] Dr. David Cannon CA OX CRYSTALS FEW Normal [facility] Comment on above: Performed By: #### U MICRO, ERUR #### [facility] [address] [place] [address] Dr. David Cannon CAST SEEN Abnormal NONE SEEN [facility] Comment on above: Performed By: #### U MICRO, ERUR #### [facility] [address] [place] [address] Dr. David Cannon Crystals LM Nom (Urine sed) SEEN Abnormal NONE SEEN [facility] Comment on above: Performed By: #### U MICRO, ERUR #### [facility] [address] [address] [address] David Cannon Epithelial cells LM Ql (Urine sed) RARE Normal NONE SEEN /RARE [facility] Comment on above: Performed By: #### U MICRO, ERUR #### [facility] [address] [place] [address] Dr. David Cannon HYALINE CAST FEW Normal [facility] Comment on above: Performed By: #### U MICRO, ERUR #### [facility] [address] [place] [address] Dr. David Cannon MUCOUS TRACE Abnormal NONE SEEN [facility] Comment on above: Performed By: #### U MICRO, ERUR #### [facility] [address] [place] [address] Dr. David Cannon RBC 2-5 Abnormal 0-2 [facility] Comment on above: Performed By: #### U MICRO, ERUR #### [facility] [address] [place] [address] Dr. David Cannon WBC 75-100 Abnormal NONE SEEN [facility] Comment on above: Performed By: #### U MICRO, ERUR #### [facility] [address] [place] [address] Dr. David Cannon XR ANKLE RT MIN [...] STEPHANIE DODD Date: 2021-10-05 10:56 Normal [facility] MRI TSPINE WO W CONon [...] by: CELIA CORMIER Date: 2021-09-01 07:29 Normal [facility] CREATININEon 08-31-2021 Creatinine [Mass/Vol] 0.82 mg/dL Normal 0.55-1.02 [facility] Comment on above: Performed By: #### C LUCIA #### [facility] [address] [address] [address] David Cannon EGFR-AF [place] >60 Normal >=60 [facility] Comment on above: Performed By: #### C LUCIA #### [facility] [address] [place] [address] Dr. David Cannon EGFR-NON AF [place] >60 Normal >=60 [facility] Comment on above: Performed By: #### C LUCIA #### [facility] [address] [place] [address] Dr. David Cannon COVID Quick Testingon 2021 Result Negative [employer] Other Quick Fluon 04-13-2021 FLUAV Ab CF (S) [Titer] Negative [employer] Other FLUBV Ab CF (S) [Titer] Negative [employer] Other Vital Signs Date Time Vital Sign Value Performing Clinician Facility 10-01-2024 13:19-0400 Body height 157.48 cm Nettie Iqbal MD Work Phone: [facility] 10-01-2024 13:19-0400 Body mass index (BMI) [Ratio] 18.6 kg/m2 Nettie Iqbal MD Work Phone: [facility] 10-01-2024 13:19-0400 Body weight 46.26 kg Nettie Iqbal MD Work Phone: [facility] 10-01-2024 13:19-0400 Diastolic blood pressure 81 mm[Hg] Nettie Iqbal MD Work Phone: [facility] 10-01-2024 13:19-0400 Heart rate 66 /min Nettie Iqbal MD Work Phone: [facility] 10-01-2024 13:19-0400 Respiratory rate 18 /min Nettie Iqbal MD Work Phone: [facility] 10-01-2024 13:19-0400 Systolic blood pressure 142 mm[Hg] Nettie Iqbal MD Work Phone: [facility] 09-23-2024 13:04-0400 Body height 157.48 cm Nettie Iqbal MD Work Phone: [facility] 09-23-2024 13:04-0400 Body mass index (BMI) [Ratio] 18.8 kg/m2 Nettie Iqbal MD Work Phone: [facility] 09-23-2024 13:04-0400 Body weight 46.89 kg Nettie Iqbal MD Work Phone: [facility] 09-23-2024 13:04-0400 Diastolic blood pressure 71 mm[Hg] Nettie Iqbal MD Work Phone: [facility] 09-23-2024 13:04-0400 Heart rate 86 /min Nettie Iqbal MD Work Phone: [facility] 09-23-2024 13:04-0400 SaO2% (BldA) [Mass fraction] 92 % Nettie Iqbal MD Work Phone: [facility] 09-23-2024 13:04-0400 Systolic blood pressure 110 mm[Hg] Nettie Iqbal MD Work Phone: [facility] 06-23-2024 13:09-0400 Body height 157.48 cm [facility] 06-23-2024 13:09-0400 Body mass index (BMI) [Ratio] 19.7 kg/m2 [facility] 06-23-2024 13:09-0400 Body weight 48.98 kg [facility] 06-23-2024 13:09-0400 Diastolic blood pressure 81 mm[Hg] [facility] 06-23-2024 13:09-0400 Heart rate 85 /min [facility] 06-23-2024 13:09-0400 Systolic blood pressure 124 mm[Hg] [facility] 03-28-2024 13:03-0500 Body height 157.48 cm Nettie Iqbal MD Work Phone: [facility] 03-28-2024 13:03-0500 Body mass index (BMI) [Ratio] 18.6 kg/m2 Nettie Iqbal MD Work Phone: [facility] 03-28-2024 13:03-0500 Body weight 46.37 kg Nettie Iqbal MD Work Phone: [facility] 03-28-2024 13:03-0500 Diastolic blood pressure 71 mm[Hg] Nettie Iqbal MD Work Phone: [facility] 03-28-2024 13:03-0500 Heart rate 74 /min Nettie Iqbal MD Work Phone: [facility] 03-28-2024 13:03-0500 SaO2% (BldA) [Mass fraction] 91 % Nettie Iqbal MD Work Phone: [facility] 03-28-2024 13:03-0500 Systolic blood pressure 115 mm[Hg] Nettie Iqbal MD Work Phone: [facility] 03-21-2024 11:30-0500 Diastolic blood pressure 75 mm[Hg] Everett Dunlap MD Work Phone: [facility] 03-21-2024 11:30-0500 Heart rate 62 /min Everett Dunlap MD Work Phone: [facility] 03-21-2024 11:30-0500 Respiratory rate 18 /min Everett Dunlap MD Work Phone: [facility] 03-21-2024 11:30-0500 SaO2% (BldA) [Mass fraction] 96 % Everett Dunlap MD Work Phone: [facility] 03-21-2024 11:30-0500 Systolic blood pressure 122 mm[Hg] Everett Dunlap MD Work Phone: [facility] 03-21-2024 10:32-0500 Body temperature 97.2 [degF] Everett Dunlap MD Work Phone: [facility] 01-16-2024 16:03-0500 Body height 157.48 cm MD Nettie Iqbal Work Phone: [facility] 01-16-2024 16:03-0500 Body mass index (BMI) [Ratio] 18.6 kg/m2 MD Nettie Iqbal Work Phone: [facility] 01-16-2024 16:03-0500 Body temperature 99.3 [degF] MD Nettie Iqbal Work Phone: [facility] 01-16-2024 16:03-0500 Body weight 46.35 kg MD Nettie Iqbal Work Phone: [facility] 01-16-2024 16:03-0500 Diastolic blood pressure 80 mm[Hg] MD Nettie Iqbal Work Phone: [facility] 01-16-2024 16:03-0500 Heart rate 77 /min MD Nettie Iqbal Work Phone: [facility] 01-16-2024 16:03-0500 Respiratory rate 16 /min MD Nettie Iqbal Work Phone: [facility] 01-16-2024 16:03-0500 SaO2% (BldA) [Mass fraction] 96 % MD Nettie Iqbal Work Phone: [facility] 01-16-2024 16:03-0500 Systolic blood pressure 127 mm[Hg] MD Nettie Iqbal Work Phone: [facility] 12-25-2023 13:30-0400 Body height 157.48 cm MD Nettie Iqbal Work Phone: [facility] 12-25-2023 13:30-0400 Body mass index (BMI) [Ratio] 19.8 kg/m2 MD Nettie Iqbal Work Phone: [facility] 12-25-2023 13:30-0400 Body weight 49.1 kg MD Nettie Iqbal Work Phone: [facility] 12-25-2023 13:30-0400 Diastolic blood pressure 70 mm[Hg] MD Nettie Iqbal Work Phone: [facility] 12-25-2023 13:30-0400 Heart rate 71 /min MD Nettie Iqbal Work Phone: [facility] 12-25-2023 13:30-0400 Respiratory rate 16 /min MD Nettie Iqbal Work Phone: [facility] 12-25-2023 13:30-0400 SaO2% (BldA) [Mass fraction] 95 % MD Nettie Iqbal Work Phone: [facility] 12-25-2023 13:30-0400 Systolic blood pressure 124 mm[Hg] MD Nettie Iqbal Work Phone: [facility] 12-19-2023 11:14-0400 Body weight 48 kg Everett Dunlap MD Work Phone: [facility] 12-19-2023 11:14-0400 Diastolic blood pressure 60 mm[Hg] Everett Dunlap MD Work Phone: [facility] 12-19-2023 11:14-0400 Heart rate 75 /min Everett Dunlap MD Work Phone: [facility] 12-19-2023 11:14-0400 Systolic blood pressure 116 mm[Hg] Everett Dunlap MD Work Phone: [facility] 11-26-2023 09:18-0400 Body height 157.48 cm MD Nettie Iqbal Work Phone: [facility] 11-26-2023 09:18-0400 Body mass index (BMI) [Ratio] 18.3 kg/m2 MD Nettie Iqbal Work Phone: [facility] 11-26-2023 09:18-0400 Body weight 45.35 kg MD Nettie Iqbal Work Phone: [facility] 11-26-2023 09:18-0400 Diastolic blood pressure 72 mm[Hg] MD Nettie Iqbal Work Phone: [facility] 11-26-2023 09:18-0400 Heart rate 80 /min MD Nettie Iqbal Work Phone: [facility] 11-26-2023 09:18-0400 Systolic blood pressure 105 mm[Hg] MD Nettie Iqbal Work Phone: [facility] 09-24-2023 13:09-0400 Body height 157.48 cm [facility] 09-24-2023 13:09-0400 Body mass index (BMI) [Ratio] 18.3 kg/m2 [facility] 09-24-2023 13:09-0400 Body weight 45.47 kg [facility] 09-24-2023 13:09-0400 Diastolic blood pressure 82 mm[Hg] [facility] 09-24-2023 13:09-0400 Heart rate 73 /min [facility] 09-24-2023 13:09-0400 Systolic blood pressure 120 mm[Hg] [facility] 08-11-2023 11:04-0400 Body height 157.48 cm MD Nettie Iqbal Work Phone: [facility] 08-11-2023 11:04-0400 Body mass index (BMI) [Ratio] 19.1 kg/m2 MD Nettie Iqbal Work Phone: [facility] 08-11-2023 11:04-0400 Body temperature 97.4 [degF] MD Nettie Iqbal Work Phone: [facility] 08-11-2023 11:04-0400 Body weight 47.28 kg MD Nettie Iqbal Work Phone: [facility] 08-11-2023 11:04-0400 Heart rate 67 /min MD Nettie Iqbal Work Phone: [facility] 08-11-2023 11:04-0400 Respiratory rate 18 /min MD Nettie Iqbal Work Phone: [facility] 08-11-2023 11:04-0400 SaO2% (BldA) [Mass fraction] 91 % MD Nettie Iqbal Work Phone: [facility] 06-22-2023 13:02-0400 Body height 157.48 cm [facility] 06-22-2023 13:02-0400 Body mass index (BMI) [Ratio] 19.5 kg/m2 [facility] 06-22-2023 13:02-0400 Body weight 48.59 kg [facility] 06-22-2023 13:02-0400 Diastolic blood pressure 79 mm[Hg] [facility] 06-22-2023 13:02-0400 Heart rate 69 /min [facility] 06-22-2023 13:02-0400 Systolic blood pressure 143 mm[Hg] [facility] 06-15-2023 15:16-0400 Diastolic blood pressure 67 mm[Hg] [place] [facility] [employer] [facility] 06-15-2023 15:16-0400 Heart rate 59 /min [place] [facility] [employer] [facility] 06-15-2023 15:16-0400 Respiratory rate 12 /min [place] [facility] 06-15-2023 15:16-0400 SaO2% (BldA) [Mass fraction] 95 % [place] [facility] 06-15-2023 15:16-0400 Systolic blood pressure 152 mm[Hg] [place] [facility]rett 06-15-2023 11:59-0400 Body temperature 98.29 [degF] [place] [facility] 04-11-2023 14:20-0500 Body height 157.48 cm [employer] Other [facility] 04-11-2023 14:20-0500 Body mass index (BMI) [Ratio] 19.75 kg/m2 [employer] [facility] [employer] Other 04-11-2023 14:20-0500 Body weight 48.99 kg [employer] Other [employer] Other 04-11-2023 14:20-0500 Body weight 48.98 kg [facility] 02-27-2023 11:00-0500 Body height 157.48 cm [employer] Other [employer] Other 02-27-2023 11:00-0500 Body mass index (BMI) [Ratio] 19.75 kg/m2 Check I'm Here Other [employer] Other 02-27-2023 11:00-0500 Body weight 48.99 kg Check [employer] Here Other [employer] Other 10-24-2022 13:00-0400 Body height 157.48 cm Nettie Iqbal Other [employer] Other 10-24-2022 13:00-0400 Body mass index (BMI) [Ratio] 21.21 kg/m2 Nettie Iqbal Other [employer] Other 10-24-2022 13:00-0400 Body weight 52.62 kg Nettie Iqbal Other [employer] Other 10-24-2022 13:00-0400 Diastolic blood pressure 82 mm[Hg] Nettie Iqbal Other [employer] Other 10-24-2022 13:00-0400 Systolic blood pressure 129 mm[Hg] Nettie Iqbal Other [employer] Other 09-07-2022 14:15-0400 Body height 157.48 cm Kiran Barksdale Other [employer] Other 09-07-2022 14:15-0400 Body mass index (BMI) [Ratio] 20.48 kg/m2 Kiran Barksdale Other [employer] Other 09-07-2022 14:15-0400 Body weight 50.8 kg Kiran Barksdale Other [employer] Other 09-07-2022 14:15-0400 Diastolic blood pressure 80 mm[Hg] Kiran Barksdale Other [employer] Other 09-07-2022 14:15-0400 Systolic blood pressure 137 mm[Hg] Kiran Barksdale Other [employer] Other 08-29-2022 14:00-0400 Body height 157.48 cm Nettie Iqbal Other [employer] Other 08-29-2022 14:00-0400 Body mass index (BMI) [Ratio] 20.3 kg/m2 Nettie Iqbal Other [employer] Other 08-29-2022 14:00-0400 Body weight 50.35 kg Nettie Iqbal Other [employer] Other 08-29-2022 14:00-0400 Diastolic blood pressure 85 mm[Hg] Nettie Iqbal Other [employer] Other 08-29-2022 14:00-0400 Systolic blood pressure 144 mm[Hg] Nettie Iqbal Other [employer] Other 08-25-2022 16:50-0400 Body height 157.48 cm Sandra Flores Other [employer] Other 08-25-2022 16:50-0400 Body mass index (BMI) [Ratio] 20.59 kg/m2 Sandra Flores Other [employer] Other 08-25-2022 16:50-0400 Body temperature 96.6 [degF] Sandra Flores Other [employer] Other 08-25-2022 16:50-0400 Body weight 51.08 kg Sandra Flores Other [employer] Other 08-25-2022 16:50-0400 Diastolic blood pressure 71 mm[Hg] Sandra Flores Other [employer] Other 08-25-2022 16:50-0400 Respiratory rate 20 /min Sandra Flores Other [employer] Other 08-25-2022 16:50-0400 SaO2% (BldA) [Mass fraction] 94 % Sandra Flores Other [employer] Other 08-25-2022 16:50-0400 Systolic blood pressure 106 mm[Hg] Sandra Flores Other [employer] Other 08-03-2022 14:30-0400 Body height 157.48 cm Nettie Iqbal Other [employer] Other 08-03-2022 14:30-0400 Body mass index (BMI) [Ratio] 21.21 kg/m2 Nettie Iqbal Other [employer] Other 08-03-2022 14:30-0400 Body weight 52.62 kg Nettie Iqbal Other [employer] Other 08-03-2022 14:30-0400 Diastolic blood pressure 93 mm[Hg] Nettie Iqbal Other [employer] Other 08-03-2022 14:30-0400 Systolic blood pressure 143 mm[Hg] Nettie Iqbal Other [employer] Other 06-20-2022 16:20-0400 Body height 157.48 cm Vanessa Sanford Other [employer] Other 06-20-2022 16:20-0400 Body mass index (BMI) [Ratio] 21.95 kg/m2 Vanessa Sanford Other [employer] Other 06-20-2022 16:20-0400 Body temperature 98.9 [degF] Vanessa Sanford Other [employer] Other 06-20-2022 16:20-0400 Body weight 54.43 kg Vanessa Sanford Other [employer] Other 06-20-2022 16:20-0400 Diastolic blood pressure 81 mm[Hg] Vanessa Sanford Other [employer] Other 06-20-2022 16:20-0400 Respiratory rate 18 /min Vanessa Sanford Other [employer] Other 06-20-2022 16:20-0400 SaO2% (BldA) [Mass fraction] 99 % Vanessa Sanford Other [employer] Other 06-20-2022 16:20-0400 Systolic blood pressure 150 mm[Hg] Vanessa Sanford Other [employer] Other 06-16-2022 12:30-0400 Body height 157.48 cm Phani Ball Other [employer] Other 06-16-2022 12:30-0400 Body mass index (BMI) [Ratio] 22.2 kg/m2 Phani Ball Other [employer] Other 06-16-2022 12:30-0400 Body weight 55.07 kg Phani Ball Other [employer] Other 06-16-2022 12:30-0400 Diastolic blood pressure 75 mm[Hg] Phani Ball Other [employer] Other 06-16-2022 12:30-0400 Respiratory rate 12 /min Phani Ball Other [employer] Other 06-16-2022 12:30-0400 Systolic blood pressure 139 mm[Hg] Phani Ball Other [employer] Other 05-29-2022 14:45-0400 Body height 157.48 cm Phani Ball Other [employer] Other 05-29-2022 14:45-0400 Body mass index (BMI) [Ratio] 21.25 kg/m2 Phani Ball Other [employer] Other 05-29-2022 14:45-0400 Body weight 52.71 kg Phani Ball Other [employer] Other 05-29-2022 14:45-0400 Diastolic blood pressure 98 mm[Hg] Phani Ball Other [employer] Other 05-29-2022 14:45-0400 Respiratory rate 12 /min Phani Ball Other [employer] Other 05-29-2022 14:45-0400 Systolic blood pressure 150 mm[Hg] Phani Ball Other [employer] Other 03-14-2022 15:30-0500 Body height 157.48 cm Kiran Shamir Other [employer] Other 03-14-2022 15:30-0500 Body mass index (BMI) [Ratio] 19.57 kg/m2 Kiran Shamir Other [employer] Other 03-14-2022 15:30-0500 Body weight 48.54 kg Kiran Barksdale Other [employer] Other 03-14-2022 15:30-0500 Diastolic blood pressure 96 mm[Hg] Kiran Shamir Other [employer] Other 03-14-2022 15:30-0500 Systolic blood pressure 136 mm[Hg] Kiran Barksdale Other [employer] Other 01-20-2022 11:40-0500 Diastolic blood pressure 84 mm[Hg] DO Phani Ball Work Phone: [facility] 01-20-2022 11:40-0500 Heart rate 79 /min DO Phani Ball Work Phone: [facility] 01-20-2022 11:40-0500 Respiratory rate 18 /min DO Phani Ball Work Phone: [facility] 01-20-2022 11:40-0500 SaO2% (BldA) [Mass fraction] 97 % DO Phani Ball Work Phone: [facility] 01-20-2022 11:40-0500 Systolic blood pressure 143 mm[Hg] DO Phani Ball Work Phone: [facility] 01-20-2022 09:05-0500 Body height 157.48 cm DO Phani Ball Work Phone: [facility] 01-20-2022 09:05-0500 Body temperature 98.2 [degF] DO Phani Ball Work Phone: [facility] 01-20-2022 09:05-0500 Body weight 51.25 kg DO Phani Ball Work Phone: [facility] 12-09-2021 12:00-0400 Body height 157.48 cm Kiran Barksdale Other [employer] Other 12-09-2021 12:00-0400 Body mass index (BMI) [Ratio] 21.58 kg/m2 Kiran Barksdale Other [employer] Other 12-09-2021 12:00-0400 Body weight 53.52 kg Kiran Barksdale Other [employer] Other 09-05-2021 17:00-0400 Body height 157.48 cm Ambrose Torres Other [employer] Other 09-05-2021 17:00-0400 Body mass index (BMI) [Ratio] 23.01 kg/m2 Ambrose Torres Other [employer] Other 09-05-2021 17:00-0400 Body weight 57.06 kg Ambrose Torres Other [employer] Other 06-13-2021 10:45-0400 Body height 157.48 cm Janna Pina Other [employer] Other 06-13-2021 10:45-0400 Body mass index (BMI) [Ratio] 23.23 kg/m2 Janna Pina Other [employer] Other 06-13-2021 10:45-0400 Body weight 57.61 kg Janna Pina Other [employer] Other 06-13-2021 10:45-0400 Diastolic blood pressure 107 mm[Hg] Janna Pina Other [employer] Other 06-13-2021 10:45-0400 Systolic blood pressure 145 mm[Hg] Janna Pina Other [employer] Other 04-13-2021 10:05-0500 Body height 157.48 cm Shira Cunningham Other [employer] Other 04-13-2021 10:05-0500 Body mass index (BMI) [Ratio] 22.86 kg/m2 Shira Cunningham Other [employer] Other 04-13-2021 10:05-0500 Body temperature 96.2 [degF] Shira Cunningham Other [employer] Other 04-13-2021 10:05-0500 Body weight 56.7 kg Shira Cunningham Other [employer] Other 04-13-2021 10:05-0500 Respiratory rate 18 /min Shira Cunningham Other [employer] Other 04-13-2021 10:05-0500 SaO2% (BldA) [Mass fraction] 95 % Shira Cunningham Other [employer] Other 01-20-2021 12:00-0500 Body height 157.48 cm Janna Pina Other [employer] Other 01-20-2021 12:00-0500 Body mass index (BMI) [Ratio] 23.04 kg/m2 Janna Pina Other [employer] Other 01-20-2021 12:00-0500 Body weight 57.15 kg Janna Pina Other [employer] Other 12-07-2020 15:30-0400 Body height 157.48 cm Janna Pina Other [employer] Other 12-07-2020 15:30-0400 Body mass index (BMI) [Ratio] 22.86 kg/m2 Janna Pina Other [employer] Other 12-07-2020 15:30-0400 Body weight 56.7 kg Janna Pina Other [employer] Other Encounters Encounter Date Encounter Type Care Provider Facility Start: 10-20-2024 End: 10-20-2024 ambulatory Vickey Beasley MD Facility: [facility] Start: 10-01-2024 End: 10-01-2024 ambulatory Nettie Iqbal MD Work Phone: [facility] Work Phone: Start: 10-01-2024 End: 10-01-2024 Patient encounter procedure Obed Murray APRN -[facility] Work Phone: Start: 09-23-2024 End: 09-23-2024 ambulatory Nettie Iqbal MD Work Phone: [facility] Work Phone: Start: 09-23-2024 End: 09-23-2024 Patient encounter procedure Nettie Iqbal MD -[facility] Work Phone: Start: 09-15-2024 End: 09-15-2024 ambulatory Vickey Beasley MD Facility:[facility] Start: 08-21-2024 Non-patient / Non-visit Jaymie Duncan NP- -[facility] Work Phone: Start: 07-15-2024 End: 07-22-2024 Telephone encounter Everett Dunlap MD Work Phone: Gastroenterology Start: 07-05-2024 End: 07-05-2024 Patient encounter procedure Nettie Iqbal MD Work Phone: [facility] [place] Work Phone: Start: 07-05-2024 End: 07-05-2024 ambulatory Nettie Iqbal MD Work Phone: [facility] Work Phone: Start: 06-23-2024 End: 06-23-2024 ambulatory [facility] Work Phone: Start: 06-23-2024 End: 06-23-2024 Patient encounter procedure [facility] Work Phone: Start: 03-31-2024 End: 03-31-2024 Telephone encounter Everett Dunlap MD Work Phone: Gastroenterology Comment on above: Follow Up Tests Resu lts (Cytology---->recommend MRCP in [address] Erwin) Start: 03-28-2024 End: 03-28-2024 ambulatory Nettie Iqbal MD Work Phone: [facility] Work Phone: Start: 03-28-2024 End: 03-28-2024 Patient encounter procedure Nettie Iqbal MD Work Phone: [facility] Work Phone: Start: 03-21-2024 ambulatory [facility] Facility:[facility] Start: 03-21-2024 End: 03-21-2024 Subsequent hospital visit by physician Everett Dunlap MD Work Phone: [facility] - [facility] Comment on above: Pancreatic cyst [K86 .2] Start: 03-20-2024 End: 03-20-2024 Telephone encounter Everett Dunlap MD Work Phone: [facility] - [facility] Start: 03-19-2024 Registered Recurring Nettie balderas MD Work Phone: [facility] Start: 03-14-2024 End: 03-14-2024 ambulatory Everett Dunlap MD Work Phone: [facility] - [facility] Start: 02-14-2024 End: 02-19-2024 Telephone encounter Everett Dunlap MD Work Phone: Gastroenterology Start: 02-13-2024 End: 02-13-2024 Telephone encounter Everett Dunlap MD Work Phone: [facility] - [facility] Start: 02-05-2024 End: 02-05-2024 ambulatory Everett Dunlap MD Work Phone: [facility] Start: 01-16-2024 End: 01-16-2024 Departed Referred MD Nettie Iqbal Work Phone: [facility] [place] Work Phone: Start: 01-16-2024 End: 01-16-2024 ambulatory MD Nettie Iqbal Work Phone: [facility] Work Phone: Start: 01-16-2024 End: 01-16-2024 Patient encounter procedure MD Nettei Iqbal Work Phone: [facility] Work Phone: Start: 01-08-2024 Non-patient / Non-visit MD Anny Iqbal Work Phone: [facility] Work Phone: Start: 01-03-2024 Non-patient / Non-visit MD Anny Iqbal Work Phone: [facility] Work Phone: Start: 01-03-2024 Registered Recurring MD Nettie Iqbal Work Phone: [facility] Start: 12-25-2023 End: 12-25-2023 ambulatory MD Nettie Iqbal Work Phone: [facility] Work Phone: Start: 12-25-2023 End: 12-25-2023 Patient encounter procedure MD Nettie Iqbal Work Phone: [facility] Work Phone: Start: 12-19-2023 End: 12-19-2023 ambulatory EVERETT DUNLAP Facility:[facility] Start: 12-19-2023 End: 12-19-2023 Patient encounter procedure Everett Dunlap MD Work Phone: Gastroenterology Comment on above: Chronic LUQ pain (Pr imary Dx); Weight loss; Pancreatic cyst; Family history of colon cancer in father; Smoker Start: 12-12-2023 Non-patient / Non-visit MD Anny Iqbal Work Phone: [facility] Work Phone: Start: 12-12-2023 Non-patient / Non-visit MD Anny Iqbal Work Phone: [facility] Work Phone: Start: 12-06-2023 Registered Recurring MD Nettie Iqbal Work Phone: [facility] Start: 11-30-2023 End: 12-04-2023 Telephone encounter Everett Dunlap MD Work Phone: Gastroenterology Comment on above: Procedure (Referred for EUS--->needs OV first) Start: 11-26-2023 End: 11-26-2023 ambulatory MD Nettie Iqbal Work Phone: [facility] Work Phone: Start: 11-26-2023 End: 11-26-2023 Patient encounter procedure MD Nettie Iqbal Work Phone: [facility] Gastroenterology Work Phone: Start: 11-02-2023 End: 11-02-2023 Patient encounter procedure MD Nettie Iqbal Work Phone: [facility] [place] Work Phone: Start: 11-02-2023 End: 11-02-2023 ambulatory MD Nettie Iqbal Work Phone: [facility] Work Phone: Start: 09-24-2023 End: 09-24-2023 ambulatory [facility] Work Phone: Start: 09-24-2023 End: 09-24-2023 Patient encounter procedure [facility] Work Phone: Start: 08-11-2023 End: 08-11-2023 ambulatory MD Nettie Iqbal Work Phone: [facility] Work Phone: Start: 08-11-2023 End: 08-11-2023 Patient encounter procedure MD Nettie Iqbal Work Phone: [facility] [place] Work Phone: Start: 07-26-2023 End: 07-26-2023 Patient encounter procedure MD Nettie Iqbal Work Phone: [facility] Work Phone: Start: 06-22-2023 End: 06-22-2023 Departed Referred MD Nettie Iqbal Work Phone: [facility] [place] Work Phone: Start: 06-22-2023 End: 06-22-2023 ambulatory [facility] Work Phone: Start: 06-22-2023 End: 06-22-2023 Patient encounter procedure [facility] Work Phone: Start: 06-15-2023 End: 06-18-2023 ambulatory [facility] Start: 06-15-2023 End: 06-17-2023 Subsequent hospital visit by physician Ricardo Carbajal MD Work Phone: [facility] Comment on above: Compression fracture of T12 vertebra with delayed healing, subsequent encounter; Other osteoporosis with current pathological fracture, vertebra(e), initial encounter for fracture (HCC) Start: 06-13-2023 End: 06-14-2023 ambulatory [facility] Start: 05-28-2023 Non-patient / Non-visit [facility] Work Phone: Start: 04-19-2023 End: 04-19-2023 Subsequent hospital visit by physician Rad External Film EF RAD [employer]TERNAL [employer] Comment on above: Arrived Start: 04-13-2023 End: 04-13-2023 ambulatory Nettie Iqbal Other [facility] [employer] Other Start: 04-13-2023 Telephone encounter Nettie Iqbal [facility] Start: 04-11-2023 End: 04-11-2023 ambulatory Ana Kim Other [employer] Other Start: 04-11-2023 Office outpatient vi sit 15 minutes Ana Kim [facility] Neurosurgery Start: 04-11-2023 End: 04-11-[address] [facility]- Start: 03-08-2023 End: 03-08-2023 ambulatory Nettie Iqbal Other [employer] Other Start: 03-08-2023 Office outpatient vi sit 15 minutes Nettie Iqbal [facility] Start: 03-08-2023 Telephone encounter Nettie Iqbal [facility] Start: 03-02-2023 End: 03-02-2023 ambulatory Ana Kim Other [employer] Other Start: 03-02-2023 Telephone encounter Ana Kim [facility] Pain Management Start: 02-27-2023 Office outpatient vi sit 25 minutes Ana Kim [facility] Neurosurgery Start: 02-27-2023 End: 02-27-2023 ambulatory MD Nettie Iqbal Work Phone: [facility] Work Phone: Start: 02-27-2023 End: 02-27-2023 Patient encounter procedure MD Nettie Iqbal Work Phone: [facility] Work Phone: Start: 02-20-2023 End: 02-20-2023 ambulatory Nettie Iqbal Other [employer] Other Start: 02-20-2023 Telephone encounter Nettie Iqbal [facility] Start: 02-15-2023 End: 02-15-2023 ambulatory Nettie Iqbal Other [employer] Other Start: 02-15-2023 Telephone encounter Nettie Iqbal [facility] Start: 02-12-2023 End: 02-12-2023 ambulatory Nettie Iqbal Other [employer] Other Start: 02-12-2023 Telephone encounter Nettie Iqbal [facility] Start: 01-29-2023 End: 01-29-2023 ambulatory Kiran Barksdale Other [employer] Other Start: 01-29-2023 Telephone encounter Kiran Silvia ck [facility] Gastroenterology Start: 01-26-2023 End: 01-26-2023 ambulatory Kiran Pintoack Other [employer] Other Start: 01-26-2023 Telephone encounter Kiran Vega ck [facility] Gastroenterology Start: 01-25-2023 End: 01-25-2023 ambulatory Nettie Iqbal Other [employer] Other Start: 01-25-2023 Telephone encounter Nettie Iqbal [facility] Start: 01-23-2023 End: 01-24-2023 ambulatory ROBIN FLANNERY Not Available Start: 01-22-2023 End: 01-22-2023 ambulatory Nettie Iqbal Other [employer] Other Start: 01-22-2023 Telephone encounter Nettie Iqbal [facility] Start: 01-15-2023 (Televisit) Televisit Nettie Kauffman [facility] Start: 01-15-2023 End: 01-15-2023 ambulatory Nettie Iqbal Other [employer] Other Start: 01-12-2023 End: 01-12-2023 ambulatory Nettie Iqbal Other [employer] Other Start: 01-12-2023 Telephone encounter Nettie Iqbal [facility] Start: 01-11-2023 End: 01-11-2023 ambulatory MD Nettie Iqbal Work Phone: [facility] Work Phone: Start: 01-11-2023 End: 01-11-2023 Patient encounter procedure MD Nettie Iqbal Work Phone: [facility] Work Phone: Start: 12-28-2022 End: 12-28-2022 ambulatory Nettie Iqbal Other [employer] Other Start: 12-28-2022 Telephone encounter Nettie Iqbal [facility] Start: 12-26-2022 (Televisit) Televisit Nettie Iqbal F [facility] Start: 12-26-2022 End: 12-26-2022 ambulatory Nettie Iqbal Other [employer] Other Start: 12-25-2022 Telephone encounter Nettie Iqbal [facility] Start: 12-25-2022 End: 12-26-2022 ambulatory [place] [facility] Other Start: 12-25-2022 End: 12-25-2022 Patient encounter procedure [place] [facility] Start: 12-18-2022 End: 12-18-2022 Office outpatient new 45 minutes Libby Muñoz PA-C Work Phone: [facility] Comment on above: Pancreas cyst (Prima ry Dx) Start: 11-28-2022 End: 11-28-2022 ambulatory Kiran Barksdale Other [employer] Other Start: 11-28-2022 Telephone encounter Kiran Vega [facility] Gastroenterology Start: 11-27-2022 End: 11-27-2022 ambulatory Nettie Iqbal Other [employer] Other Start: 11-27-2022 Telephone encounter Nettie Iqbal [facility] Start: 11-23-2022 (Televisit) Televisit Nettie Kauffman [facility] Start: 11-23-2022 End: 11-23-2022 ambulatory Nettie Iqbal Other [employer] Other Start: 11-22-2022 End: 11-22-2022 ambulatory Nettie Iqbal Other [employer] Other Start: 11-22-2022 Telephone encounter Nettie Iqbal [facility] Start: 11-20-2022 End: 11-20-2022 Departed Referred MD Nettie Iqbal Work Phone: [facility] Work Phone: Start: 11-20-2022 End: 11-20-2022 Patient encounter procedure MD Nettie Iqbal Work Phone: [facility] Work Phone: Start: 11-20-2022 End: 11-20-2022 ambulatory MD Nettie Iqbal Work Phone: [facility] Work Phone: Start: 11-20-2022 Telephone encounter Nettie Iqbal [facility] Start: 11-15-2022 End: 11-15-2022 ambulatory Nettie Iqbal Other [employer] Other Start: 11-15-2022 Telephone encounter Nettie Iqbal [facility] Start: 11-09-2022 End: 11-09-2022 ambulatory MD Nettie Iqbal Work Phone: [facility] Work Phone: Start: 11-09-2022 End: 11-09-2022 Patient encounter procedure MD eNttie Iqbal Work Phone: [facility] [place] Work Phone: Start: 11-02-2022 End: 11-02-2022 ambulatory Nettie Iqbal Other [employer] Other Start: 11-02-2022 Telephone encounter Nettie Iqbal [facility] Start: 10-24-2022 End: 10-24-2022 ambulatory Nettie Iqbal Other [employer] Other Start: 10-24-2022 Office outpatient vi sit 15 minutes Nettie Iqbal [facility] Start: 10-19-2022 End: 10-19-2022 ambulatory Shira Marisa Other [employer] Other Start: 10-19-2022 Telephone encounter Sh[facility] Start: 10-18-2022 End: 10-18-2022 ambulatory Nettie Iqbal Other [employer] Other Start: 10-18-2022 Telephone encounter Nettie Iqbal [facility] Start: 10-17-2022 End: 10-17-2022 ambulatory Nettie Iqbal Other [employer] Other Start: 10-17-2022 Telephone encounter Nettie Iqbal [facility] Start: 10-05-2022 End: 10-05-2022 ambulatory Kiran Barksdale Other [employer] Other Start: 10-05-2022 Telephone encounter Kiran arnett [facility] Gastroenterology Start: 10-04-2022 End: 10-04-2022 ambulatory Nettie Iqbal Other [employer] Other Start: 10-04-2022 Telephone encounter Nettie Iqbal [facility] Start: 09-07-2022 End: 09-07-2022 ambulatory Kiran Barksdale Other [employer] Other Start: 09-07-2022 Office outpatient vi sit 25 minutes Kiran Barksdale [facility] Gastroenterology Start: 09-06-2022 End: 09-06-2022 ambulatory Nettie Iqbal Other [employer] Other Start: 09-06-2022 Telephone encounter Nettie Iqbal [facility] Start: 08-29-2022 End: 08-29-2022 ambulatory Nettie Iqbal Other [employer] Other Start: 08-29-2022 Office outpatient vi sit 15 minutes Nettie Iqbal [facility] Start: 08-25-2022 End: 08-25-2022 ambulatory Sandra Flores Other [employer] Other Start: 08-25-2022 Office outpatient vi sit 15 minutes Sandra Flores [facility] [place] Start: 08-14-2022 End: 08-14-2022 ambulatory Phani Pruitt Other [employer] Other Start: 08-14-2022 Telephone encounter Phani Pruitt [facility] Start: 08-10-2022 End: 08-10-2022 ambulatory Phani Pruitt Other [employer] Other Start: 08-10-2022 Telephone encounter Phani Pruitt [facility] Start: 08-08-2022 End: 08-08-2022 ambulatory Nettie Iqbal Other [employer] Other Start: 08-08-2022 Telephone encounter Nettie Iqbal [facility] Start: 08-03-2022 End: 08-03-2022 ambulatory Nettie Iqbal Other [employer] Other Start: 08-03-2022 Office outpatient vi sit 15 minutes Nettie Iqbal [facility] Start: 07-27-2022 End: 07-28-[address] DOCTOR HYATT Facility:[facility] Start: 07-21-2022 End: 07-21-2022 ambulatory Phani Pruitt Other [employer] Other Start: 07-21-2022 Telephone encounter Phani Pruitt [facility] Start: 07-20-2022 End: 07-21-[address] PHANI PRUITT Facility:[facility] Start: 07-12-2022 End: 07-12-2022 ambulatory Phani Pruitt Other [employer] Other Start: 07-12-2022 Telephone encounter Phani GARCIA [facility] Start: 06-27-2022 End: 06-27-2022 ambulatory Vanessa Sanford Other [employer] Other Start: 06-27-2022 Telephone encounter Vanessa Sanford [facility] Start: 06-22-2022 End: 06-22-2022 ambulatory Phani Pruitt Other [employer] Other Start: 06-22-2022 Telephone encounter Phani GARCIA G [facility] Start: 06-20-2022 End: 06-20-2022 Departed Referred MARITIME ENGINEER Vanessa Sanford Work Phone: [facility] [place] Work Phone: Start: 06-20-2022 End: 06-20-2022 ambulatory MARITIME ENGINEER Vanessa Sanford Work Phone: [facility] Work Phone: Start: 06-20-2022 Office outpatient vi sit 15 minutes Vanessa Sanford [facility] Start: 06-16-2022 End: 06-17-[address] PHANI PRUITT [facility] Resources Other Start: 06-16-2022 Office outpatient vi sit 25 minutes Phani Pruitt [facility] Start: 06-06-2022 End: 06-07-2022 ambulatory AINSLEY WATERMAN . Facility:H1 Start: 05-29-2022 End: 05-30-[address] PHANI PRUITT [facility] Resources Other Start: 05-29-2022 Office outpatient vi sit 25 minutes Phani Pruitt [facility] Start: 05-29-2022 Telephone encounter Phani GARCIA [facility] Start: 05-12-2022 End: 05-12-2022 ambulatory Phani Pruitt Other [employer] Other Start: 05-12-2022 Telephone encounter [facility] Start: 05-09-2022 End: 05-09-2022 ambulatory Phani Pruitt Other [employer] Other Start: 05-09-2022 Office outpatient vi sit 15 minutes Phani ROME [facility] Start: 05-09-2022 Telephone encounter [facility] Start: 04-28-2022 End: 04-28-2022 ambulatory Phani Pruitt Other [employer] Other Start: 04-28-2022 Telephone encounter [facility] Start: 04-24-2022 End: 04-24-2022 ambulatory Phani Pruitt Other [employer] Other Start: 04-24-2022 Telephone encounter [facility] Start: 04-20-2022 End: 04-20-2022 ambulatory Phani Pruitt Other [employer] Other Start: 04-20-2022 Telephone encounter [facility] Start: 04-17-2022 End: 04-17-[address] ABDELRAHMAN WEINSTEIN . Facility:H1 Start: 04-16-2022 Encounter for other preprocedural examination DR ABDELRAHMAN WEINSTEIN . [facility] Start: 04-14-2022 End: 04-15-[address] ABDELRAHMAN WEINSTEIN . Facility:[facility]1 Start: 04-14-2022 End: 04-15-2022 Encounter for other preprocedural examination DR ABDELRAHMAN WEINSTEIN . Facility:[facility]1 Start: 04-13-2022 End: 04-13-2022 ambulatory Phani Pruitt Other [employer] Other Start: 04-13-2022 Telephone encounter [facility] Start: 04-10-2022 End: 04-10-[address] ABDELRAHMAN WEINSTEIN . Facility:[facility]1 Start: 03-25-2022 End: 03-25-2022 ambulatory Kiran Barksdale Other [employer] Other Start: 03-25-2022 Telephone encounter Kiran Vega ck [facility] Start: 03-15-2022 End: 03-15-2022 ambulatory Phani Pruitt Other [employer] Other Start: 03-15-2022 Telephone encounter Phani Edmond GARCIA [facility] Start: 03-14-2022 End: 03-14-2022 ambulatory Kiran Barksdale Other [employer] Other Start: 03-14-2022 Office outpatient vi sit 15 minutes Kiran Barksdale [facility] Start: 03-10-2022 End: 03-10-2022 ambulatory Phani Pruitt Other [employer] Other Start: 03-10-2022 Telephone encounter Phani Pruitt RADHA [facility] Start: 03-01-2022 Encounter for other preprocedural examination Nettie Iqbal Other [employer] Other Start: 03-01-2022 Pre-procedure evaluation check Nettie Iqbal Other [employer] Other Start: 02-23-2022 End: 02-24-[address] KIEL DÍAZ . Facility:[facility]1 Start: 01-20-2022 End: 01-20-2022 Admission to same day surgery center DO Phani Pruitt Work Phone: [facility] Start: 01-20-2022 End: 01-20-2022 ambulatory DO Phani Pruitt Work Phone: [facility] Work Phone: Start: 01-06-2022 End: 01-07-[address] WAI SEVERINO Facility:[facility]1 Start: 01-02-2022 End: 01-02-2022 ambulatory Kiran Barksdale Other [employer] Other Start: 01-02-2022 Telephone encounter Kiran arnett [facility] Start: 12-09-2021 End: 12-09-2021 ambulatory Kiran Barksdale Other [employer] Other Start: 12-09-2021 Office outpatient vi sit 25 minutes Kiran Barksdale [facility] G[facility] Start: 11-28-2021 End: 11-29-[address] PHANI PRUITT Facility:[facility]1 Start: 11-10-2021 End: 11-10-2021 ambulatory Kiran Barksdale Other [employer] Other Start: 11-10-2021 Telephone encounter Kiran arnett [facility] Start: 10-20-2021 End: 10-20-[address] PHANI PRUITT Facility:[facility]1 Start: 10-16-2021 End: 10-16-[address] PHANI PRUITT Facility:[facility]1 Start: 10-05-2021 End: 10-05-2021 ambulatory AINSLEY WATERMAN . Facility:[facility]1 Start: 09-30-2021 ambulatory SANTA Garrett Facili ty:H1 Start: 09-29-2021 End: 09-29-2021 ambulatory Janna Pina Other [employer] Other Start: 09-29-2021 Telephone encounter Janna Pina [facility] Gastroenterology Start: 09-20-2021 Adult health examination Nettie Iqbal Other [employer] Other Start: 09-20-2021 Encounter for genera l adult medical examination without abnormal findings Nettie Iqbal Other [employer] Other Start: 09-05-2021 End: 09-05-2021 ambulatory Ambrose Torres Other [employer] Other Start: 09-05-2021 Office outpatient vi sit 15 minutes Ambrose Torres [facility] Start: 08-31-2021 End: 09-01-[address] PHANI PRUITT Facility:[facility]1 Start: 07-08-2021 End: 07-08-2021 ambulatory Janna Yovani Other [employer] Other Start: 07-08-2021 Telephone encounter Janna Samuelrenzo [facility] Start: 06-13-2021 End: 06-13-2021 ambulatory Janna Yovani Other [employer] Other Start: 06-13-2021 Office outpatient vi sit 25 minutes Janna Samuelrenzo [facility] Start: 04-13-2021 End: 04-13-2021 ambulatory Shira Cunningham Other [employer] Other Start: 04-13-2021 Office outpatient vi sit 15 minutes Shiraraad Cunningham [facility] Start: 02-28-2021 End: 02-28-2021 ambulatory Janna Yovani Other [employer] Other Start: 02-28-2021 Telephone encounter Janna Pina [facility] Start: 01-31-2021 End: 01-31-2021 ambulatory Janna Pina Other [employer] Other Start: 01-31-2021 Telephone encounter Janna Pina [facility] Start: 01-20-2021 End: 01-20-2021 ambulatory Janna Yovani Other [employer] Other Start: 01-20-2021 Office outpatient vi sit 25 minutes Janna Samuelkes [facility] Start: 01-20-2021 Telephone encounter Janna Samuelkes [facility] Start: 12-07-2020 Office outpatient vi sit 25 minutes Janna Samuelkes [facility] Procedures Date Procedure Procedure Detail [...] Start: 04-19-2023 Study Interpretation of outside study Non- Radiology Contrast Provider Start: 02-27-2023 X-ray of lumbar spine, four views MD Anny Iqbal Work Phone: Start: 01-11-2023 Urine culture MD Nettie Iqbal Work Phone: Start: 11-20-2022 Urine culture MD Nettie Ibqal Work Phone: Start: 11-09-2022 Magnetic resonance cholangiopancreatography MD Nettie Iqbal Work Phone: Start: 01-20-2022 End: 01-20-2022 Colonoscopy DO Phani Pruitt Work Phone: Start: 09-19-2017 Screening for malignant neoplasm of colon Nettie Ibqal Other Start: 09-19-2017 Screening for osteoporosis Nettie Iqbal Other Start: 09-19-2017 Screening mammography Nettie Iqbal Other Depression screening Nettie Iqbal Other Screening for malign ant neoplasm of breast Nettie Iqbal Other Plan of Treatment Date Care Activity Detail Author Start: 01-21-2032 Screening for malignant neoplasm of colon [facility] Start: 06-03-2030 RSV Vaccine (1 - 1-dose 75+ series) RSV Vaccine (1 - 1-dose 75+ series) [facility] Start: 06-12-2026 Diabetes Screening Diabetes Screening [facility] Start: 09-18-2024 Pneumococcal Vaccine: 50+ (3 of 3 - PCV20 or PCV21) Pneumococcal Vaccine: 50+ (3 of 3 - PCV20 or PCV21) [facility] Start: 06-25-[address] [facility] Work Phone: Start: 03-21-2024 End: 03-21-2024 Patient encounter procedure [facility] - ENDO Comment on above: EUS (LINEAR) W/FNA Start: 03-12-2024 Advance Directive Discussion Advance Directive Discussion [facility] Start: 02-14-2024 End: 02-14-2024 Patient encounter procedure 02/14/2024 2:30 PM EST Appointment [facility] - ENDO [id number] [place] [address] [place] [address] [place] [id number] EUS (LINEAR) W/FNA [facility] - ENDO Comment on above: EUS (LINEAR) W/FNA Start: 02-14-2024 End: 02-14-2024 Patient encounter procedure 02/14/2024 12:30 PM EST Appointment [facility] - ENDO [id number] [place] [address] [place] [address] [place] [address] EUS (LINEAR) W/FNA [facility] - ENDO Comment on above: EUS (LINEAR) W/FNA Start: 01-16-2024 Urine culture [facility] Start: 01-16-2024 Bacteria identified in Urine by Culture Urine Culture [facility] Start: 12-19-2023 End: 12-19-2023 Patient encounter procedure 12/19/2023 11:40 AM EDT Office Visit Gastroenterology [id number] [place] [id number] [place] [address] [place] [address] discuss EUS Gastroenterology Comment on above: discuss EUS Start: 11-26-2023 Patient referral [facility] Work Phone: Start: 11-11-2023 Covid-19 Vaccine ( season) Covid-19 Vaccine ( season) [facility] Start: 11-11-2023 Covid-19 Vaccine ( season) Covid-19 Vaccine () [facility] Start: 11-11-2023 Influenza vaccination Influenza Vaccine (#1) [facility] Start: 07-26-2023 Patient referral [facility] Work Phone: Start: 06-24-2023 Patient referral [facility] Work Phone: Start: 06-22-2023 Bacteria identified in Urine by Culture [facility] Start: 03-12-2023 Advance Directive Discussion Advance Directive Discussion [facility] Start: 03-12-2023 Annual Wellness Visit (Medicare Advantage) Annual Wellness Visit (Medicare Advantage) [facility] Start: 01-11-2023 Bacteria identified in Urine by Culture [facility] Start: 11-10-2022 COVID-19 Vaccine ( season) COVID-19 Vaccine () [facility] Start: 01-20-2022 [facility] Start: 03-28-2021 COVID-19 Vaccine (4 - Pfizer series) COVID-19 Vaccine (4 - Pfizer series) [facility] Start: 09-18-2020 Pneumococcal Vaccine: 65+ (3 of 3 - PPSV23 or PCV20) Pneumococcal Vaccine: 65+ (3 of 3 - PPSV23 or PCV20) [facility] Start: 09-18-2020 Pneumococcal Vaccine: 65+ Years (3 - PPSV23 or PCV20) Pneumococcal Vaccine: 65+ Years (3 - PPSV23 or PCV20) [facility] Start: 06-03-2020 Pneumococcal 65+ years Vaccine (2 of 2 - PCV) Pneumococcal 65+ years Vaccine (2 of 2 - PCV) [facility] Start: 06-03-2020 Pneumococcal Vaccine: 65+ (1 of 1 - PCV) Pneumococcal Vaccine: 65+ (1 of 1 - PCV) [facility] Start: 06-03-2020 Pneumococcal Vaccine: 65+ Years (2 - PCV) Pneumococcal Vaccine: 65+ Years (2 - PCV) [facility] Start: 06-03-2020 Screening for osteoporosis Bone Density Screening [facility] Start: 12-13-2016 Shingles vaccine (2 of 3) Shingles vaccine (2 of 3) [facility] Start: 12-13-2016 Shingrix Vaccine (2 of 3) Shingrix Vaccine (2 of 3) [facility] Start: 12-13-2016 Zoster Vaccines (2 of 3) Zoster Vaccines (2 of 3) [facility] Start: 12-08-2016 DTaP/Tdap/Td Vaccines (1 - Tdap) DTaP/Tdap/Td Vaccines (1 - Tdap) [facility] Start: 12-08-2016 Urine microalbumin profile DTaP,Tdap,Td Vaccine (1 - Tdap) [facility] Start: 2015 Hepatitis B Vaccines (1 of 3 - Risk 3-dose series) Hepatitis B Vaccines (1 of 3 - Risk 3-dose series) [facility] Start: 2015 Respiratory Syncytial Virus (RSV) or age 60 yrs+ (1 - 1-dose 60+ series) Respiratory Syncytial Virus (RSV) or age 60 yrs+ (1 - 1-dose 60+ series) [facility] Start: 2015 RSV Vaccine (1 - Risk 60-74 years 1-dose series) RSV Vaccine (1 - Risk 60-74 years 1-dose series) [facility] Start: 06-03-2010 Screening for osteoporosis DEXA (modify frequency per FRAX score) [facility] Start: 06-03-2005 Screening for malignant neoplasm of breast Breast cancer screen [facility] Start: 06-03-2005 Shingrix Vaccine (1 of 2) Shingrix Vaccine (1 of 2) [facility] Start: 06-03-2000 Lipid panel Lipid Screening [facility] Start: 06-03-2000 Screening for malignant neoplasm of colon [facility] Start: 1995 Lipid panel Lipids [facility] Start: 1995 Screening for malignant neoplasm of breast [facility] Start: 06-03-1977 DTaP/Tdap/Td Vaccines (1 - Tdap) DTaP/Tdap/Td Vaccines (1 - Tdap) [facility] Start: 06-03-1974 DTaP/Tdap/Td vaccine (1 - Tdap) DTaP/Tdap/Td vaccine (1 - Tdap) [facility] Start: 06-03-1974 Hepatitis A Vaccines (1 of 2 - Risk 2-dose series) Hepatitis A Vaccines (1 of 2 - Risk 2-dose series) [facility] Start: 06-03-1974 Urine microalbumin profile DTaP,Tdap,Td Vaccine (1 - Tdap) [facility] Start: 06-03-1973 Anxiety Screening Anxiety Screening [facility] Start: 06-03-1973 Depression Screening Depression Screening [facility] Start: 06-03-1973 Diabetes mellitus screening Diabetes Screening [facility] Start: 06-03-1973 Hepatitis C screening [facility] Start: 1967 Depression Screen Depression Screen [facility] Start: 1955 Lipid panel Lipid Panel [facility] Start: 1955 Medicare Annual Wellness Visit Medicare Annual Wellness Visit (AWV) [facility] Start: 1955 Screening for malignant neoplasm of colon [facility] Start: 1955 Screening for osteoporosis Bone Density Scan [facility] Start: 1955 Yearly Adult Physical Yearly Adult Physical [facility] Atopobium vaginae DN A [Presence] in Vaginal fluid by JOSH with probe detection [facility] Bacteria identified in Urine by Culture [facility] Bacterial vaginosis associated bacterium 2 DNA [Presence] in Vaginal fluid by JOSH with probe detection [facility] 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 [facility] Work Phone: Comment on above: Release Upon Ordering for 1 Occurrences starting 03/21/2024 End: 12-18-2024 EGD - THERAPEUTIC, EUS, OR TUBE INTERVENTIONS EGD - THERAPEUTIC, EUS, OR TUBE INTERVENTIONS Endoscopy Routine Pancreatic cyst 1 Occurrences starting 12/19/2023 until 12/18/2024 [facility] Work Phone: Comment on above: 1 Occurrences starting 12/19/2023 until 12/18/2024 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 Work Phone: Patient referral [facility] Work Phone: End: 06-15-2023 Perq vertebroplasty uni/bi injx cervicothoracic [facility] Work Phone: Comment on above: 1 Occurrences starting 06/15/2023 until 06/15/2023 Study Interpretation of outside study MR transfer of outside films Imaging Routine 04/19/2023 11:05 AM EST [facility] Work Phone: End: 06-15-2023 Vertebroplasty each addl cervicothor/lumbosacral [facility] Comment on above: 1 Occurrences starting 06/15/2023 until 06/15/2023 [facility] Immunizations Immunization Date Immunization Notes Care Provider Fa [facility] 12-25-2023 influenza, high dose seasonal, preservative-free MD Nettie Iqbal Work Phone: [facility] 10-24-2022 Flu vaccine, quadrivalent, high-dose, preservative free, age 65y+ (FLUZONE) Libby Muñoz PA-C Work Phone: [facility] Work Phone: 10-24-2022 influenza virus vaccine, unspecified formulation Everett Dunlap MD Work Phone: [facility] 12-24-2021 influenza, high dose seasonal, preservative-free Libby Muñoz PA-C Work Phone: [facility] Work Phone: 11-28-2021 influenza virus vaccine, split virus (incl. purified surface antigen) Nettie Iqbal Other [employer] Other 11-28-2021 influenza virus vaccine, unspecified formulation [facility] 11-28-2021 Influenza, Seasonal, Quadrivalent, Adjuvanted Libby Muñoz PA-C Work Phone: [facility] Work Phone: 01-31-2021 COVID-19 mRNA, Comirnaty (Pfizer) DO [employer] Work Phone: [facility] 12-15-2020 influenza virus vaccine, split virus (incl. purified surface antigen) Nettie Iqbal Other [employer] Other 12-15-2020 influenza virus vaccine, unspecified formulation [facility] 12-15-2020 Seasonal trivalent influenza vaccine, adjuvanted, preservative free Libby Muñoz PA-C Work Phone: [facility] Work Phone: 07-30-2020 COVID-19 mRNA, Comirnaty (Pfizer) DO [employer] Work Phone: [facility] 07-09-2020 COVID-19 mRNA, Comirnaty (Pfizer) DO [employer] Work Phone: [facility] 12-26-2019 influenza virus vaccine, split virus (incl. purified surface antigen) Nettie Iqbal Other [employer] Other 12-26-2019 influenza virus vaccine, unspecified formulation [facility] 09-19-2019 pneumococcal conjuga te vaccine, 13 valent Nettie Iqbal Other [facility] 01-29-2019 Influenza, injectabl e, Madin Kaylah Canine Kidney, preservative free, quadrivalent Libby Muñoz PA-C Work Phone: [facility] Work Phone: 01-07-2018 influenza virus vaccine, split virus (incl. purified surface antigen) Nettie Iqbal Other [employer] Other 01-07-2018 influenza virus vaccine, unspecified formulation [facility] 01-07-2018 Influenza, injectabl e, Madin York Canine Kidney, quadrivalent with preservative Libby Muñoz PA-C Work Phone: [facility] Work Phone: 12-07-2016 influenza, seasonal, injectable Libby MILLER-C Work Phone: [facility] Work Phone: 12-07-2016 tetanus and diphther ia toxoids, adsorbed, preservative free, for adult use (5 Lf of tetanus toxoid and 2 Lf of diphtheria toxoid) Nettie Iqbal Other [facility] 10-18-2016 zoster vaccine, live Libby MILLER-C Work Phone: [facility] Work Phone: 04-24-2016 zoster vaccine, live Nettie Iqbal Other [facility] 12-10-2013 influenza, injectabl e, madin kaylah canine kidney, preservative free Libby MILLER-C Work Phone: [facility] Work Phone: 01-18-2013 pneumococcal polysaccharide vaccine, 23 valent Nettie Iqbal Other [facility] 10-25-2011 pneumococcal polysaccharide vaccine, 23 valent Libby MILLER-C Work Phone: [facility] Work Phone: 01-10-2005 pneumococcal polysaccharide vaccine, 23 valent Janna Pina Other [employer] Other 02-05-2001 pneumococcal polysaccharide vaccine, 23 valent Libby MILLER-C Work Phone: [facility] Work Phone: Payers Date Payer Category Payer Private Health Insurance 2023 Medicare (Managed Care) PRASHANT ALBERTS [id number] 2022 Unknown SELF FUNDED SELF FUNDED [id number] 2022-Present [address] [place] [address] [id number] 2022 Medicare [id number]. [id number] 1959 Medicare [id number] 2.16.840.1.006878.19 1955 Unknown [id number] 2.16.840.1.264709.3.579. 2.593 1955 Unknown [id number] 2.16.840.1.670059.3.579. 2.593 1955 Unknown [id number] 2.16.840.1.357826.3.579. 2.593 1955 Unknown [id number] 2.16.840.1.589955.3.579. 2.593 1955 Unknown [id number] 2.16.840.1.638241.3.579. 2.593 1955 Unknown [id number] 2.16.840.1.958421.3.579. 2.593 1955 Unknown [id number] 2.16.840.1.131050.3.579. 2.593 1955 Unknown [id number] 2.16.840.1.713804.3.579. 2.593 1955 Unknown [id number] 2.16.840.1.105456.3.579. 2.593 1955 Unknown [id number] 2.16.840.1.929131.3.579. 2.593 1955 Unknown [id number] 2.16.840.1.212897.3.579. 2.593 1955 Unknown [id number] 2.16.840.1.658401.3.579. 2.593 1955 Unknown [id number] 2.16.840.1.944614.3.579. 2.593 1955 Unknown [id number] 2.16.840.1.569904.3.579. 2.593 1955 Unknown [id number] 2.16.840.1.210947.3.579. 2.593 1955 Unknown [id number] 2.16.840.1.943223.3.579. 2.593 1955 Unknown [id number] 2.16.840.1.009117.3.579. 2.727 1955 Unknown [id number] 2.16.840.1.818377.3.579. 2.1259 1955 Unknown [id number] 2.16.840.1.775089.3.579. 2.1259 1955 Unknown [id number] 2.16.840.1.265497.3.579. 2.1259 1955 Unknown [id number] 2.16.840.1.394914.3.579. 2.173 1955 Unknown [id number] 2.16.840.1.790734.3.579. 2.182 1955 Unknown [id number] 2.16.840.1.970449.3.579. 2.196 1955 Unknown [id number] 2.16.840.1.787678.3.579. 2.196 Medicare Medicare [id number] Medicare [id number] 2.16.840.1.101098.19 Self-pay Self Pay [id number] Social History Date Type Detail Facility Unknown if ever smoked [employer] Other Start: 06-15-2023 End: 12-19-2023 Sex Assigned At [facility] Start: 01-20-2022 End: 02-12-2022 Tobacco smoking status NHIS Ex-smoker (finding) [facility] Start: 1955 Sex Assigned At Female [facility] Tobacco smoking stat us CTIS Tobacco smoking consumption unknown [facility] Work Phone: Start: 12-17-2022 Gender identity Identifies as female gender (finding) [facility] Work Phone: Start: 12-17-2022 Sexual orientation Heterosexual (finding) [facility] Work Phone: Tobacco smoking status No Smokin g Status Entered [facility] Start: 08-11-2023 History of tobacco use Current smoker [facility] History of tobacco use Cigarette Smoker [facility] Start: 06-15-2023 End: 12-19-2023 History of Social function [facility] Start: 1955 Sex Assigned At Not on file [facility] Start: 12-19-2023 Tobacco smoking status CTIS Smokes tobacco daily [facility] Start: 12-19-2023 Tobacco use and exposure Smokeless tobacco non-user [facility] Start: 12-19-2023 Alcoholic beverage intake Ex-drinker (finding) [facility] National Score (1-10 0), lower number is lower risk 63 [facility] Start: 01-16-2024 End: 01-16-2024 Tobacco smoking status NHIS Current some day smoker [facility] Start: 03-28-2024 End: 07-06-2024 Sex Female (finding) [facility] Medical Equipment Procedure Code Equipment Code Equipment Origin al Text Equipment Identifier Dates Kyphoplasty Orthopaedic ceme nt, non-medicated [id number] [facility] Start: 06-24-2019 Cement Bne 20 Gm Hi Visc Radiopaque Vertaplex Hv - [id number] Start: 06-15-2023 Comment on above: Description: Thoraci c 11 & thoracic 12 Goals Date Patient Goal Desired Activity /State Clinical Notes 12-07-2020 to 09-23-2024 Note Date & Type Note Facility 09-23-2024 Evaluation note Diagnosis Onset Date Resolution Anxiety acute September 23 1:03pm Chronic thoracic back pain acute September 23, 2024 1:03pm Pancreatic lesion acute September 232024 1:03pm Right femoral fracture acute 2024 1:03pm Vertebral compression fracture acute September 23, 2024 1:03pm Chronic back pain chronic September 232024 1:03pm COPD (chronic obstructive pulmonary disease) chronic September 23, 2024 1:03pm Fibromyalgia chronic September 23, 025 1:03pm Dyspepsia acute October 01 1:09pm GERD (gastroesophageal reflux disease) acute October 01, 2024 1:09pm Opioid-induced constipation acute October 01, 2024 1:09pm Pancreatic lesion acute October 012024 1:09pm [facility] Work Phone: 1(346) 155-598405-13-2025 Telephone encounter Note* Telephone Encounter - Angela Monson RN - 07/22/2024 9:21 AM EDT Recommendations faxed to Dr. Erwin's office. Angela Monson RN [facility] Work Phone: 1(473) 297-124705-13-2025 Miscellaneous Notes* Telephone Encounter - Angela Monson [...] dysplasia. Recommend: MRCP in 6 months at [facility] facility. Send my opinion to Dr. Erwin. Everett Dunlap MD * Telephone Encounter - Angela Monson RN - 07/17/2024 2:[address] Dunlap, MRI images available in [facility] to review. Angela Monson RN * Telephone Encounter - Angela Monson RN - 07/16/2024 9:10 AM EDT Fannie called [employer], they will push images to [facility]. Will monitor. Angela Monson RN * Telephone Encounter - Everett Dunlap MD - 07/15/2024 5:23 PM EDT Angela: I wanted her MRCP to be done at [facility] facility for my review. I need the images of MRCP (done at [facility]) uploaded to [employer] for my review prior to rendering anyopinion. [...] Erwin. She used DrGerry Was transferred to [facility]. 2. Weight loss - ICD9: 783.21, [...] She is scheduled 02/14/2024 at 12:30 PM, [facility]. - EGD - THERAPEUTIC, EUS, OR [...] and my recommendations to Dr. Erwin at [facility]. Pt had repeat MRCP 07/05/[address] [...] could also be considered. documented in [facility] [place] Telephone encounter Note * Telephone Encounter - [...] dysplasia. Recommend: MRCP in 6 months at [facility] facility. Send my opinion to Dr. Erwin. Everett Dunlap MD [facility] [place]05-08-2025 Telephone encounter Note* Telephone Encounter - Angela Monson RN - 07/17/2024 2:[address] Dunlap, MRI images available in [facility] to review. Angela Monson RN [facility] [place]05-07-2025 Telephone encounter Note* Telephone Encounter - Angela Monson RN - 07/16/2024 9:10 AM EDT Fannie called [facility], they will push images to [facility]. Will monitor. Angela Monson RN [facility] [place]05-06-2025 Telephone encounter Note* Telephone Encounter - Everett Dunlap MD - 07/15/2024 5:23 PM EDT Angela: I wanted her MRCP to be done at [facility] facility for my review. I need the images of MRCP (done at [facility]) uploaded to [facility] for my review prior to rendering anyopinion. Everett Dunlap MD [facility] [place]05-06-2025 Telephone encounter Note* Telephone Encounter - Angela [...] Erwin. She used Dr. Was transferred to [facility]. 2. Weight loss - ICD9: 783.21, [...] She is scheduled 02/14/2024 at 12:30 PM, [facility]. - EGD - THERAPEUTIC, EUS, OR [...] and my recommendations to Dr. Erwin at [facility]. Pt had repeat MRCP 07/05/[address] [...] or small pseudocysts could also be considered. [facility] [place]04-14-2025 Evaluation note* Diagnosis Onset Date Resolution Status Admit Date Anxiety acute June 23 1:01pm Chronic thoracic back pain acute June 23, 2024 1:01pm Pancreatic lesion acute June 102024 1:01pm Right femoral fracture acute Ap 2024 1:01pm Vertebral compression fracture acute June 23, 2024 1:01pm Chronic back pain chronic June 102024 1:01pm COPD (chronic obstructive pulmonary disease) chronic June 23, 1:01pm Fibromyalgia chronic June 23, 2024 1:[address] [facility] Work Phone: 1(716) 936-567601-20-2025 Telephone encounter Note* Telephone Encounter - Angela Monson RN - 03/31/2024 1:01 PM EST Pt notified of results and recommendations and verbalized understanding. She will follow up with Dr. Erwin. Reports and recommendations faxed to Dr. Erwin's office. Angela Monson RN [facility] Work Phone: 1(978) 700-138501-20-2025 Miscellaneous Notes* Telephone Encounter - Angela Monson [...] and my recommendations to Dr. Erwin at [facility]. Everett Dunlap MD documented in this encounterSelect [facility] [place] Telephone encounter Note * Telephone Encounter - [...] and my recommendations to Dr. Erwin at [facility]. Everett Dunlap MD [facility] [place]01-17-2025 Evaluation note* Diagnosis Onset Date Resolution Status Admit Date Anxiety acute March 28, 2024 12:59pm Pancreatic lesion acute March 28, 2024 12:59pm Right femoral fracture acute Ja nuary 2024 12:59pm Sinusitis acute March 28, 2024 12:59pm Vertebral compression fracture acute March 28, 2024 12:59pm COPD (chronic obstructive pulmonary disease) chronic March 28, 2024 12:59pm Fibromyalgia chronic March 12:59pm [facility] Work Phone: 1(776) 978-883301-10-2025 Nurse Note* Sofy Arriaga RN - 03/21/2024 11:30 AM EST PATIENT EDUCATION TOPIC: PROCEDURE / SURGERY: Post Procedure Teaching: Symptom Management PATIENT NAME: Afia Gutierres PATIENT LOCATION: Room/bed info not found READINESS TO LEARN COGNITIVE ABILITY: Alert and oriented MOTIVATION TO LEARN: Interested FAMILY SUPPORT: Dilma parkinson INSTRUCTION PROVIDED TO: Patient and Family member [...] PROVIDED TO PATIENT: None REFERRAL (RECOMMENDATION): None [facility]01-10-2025 Nurse Note* Sofy Arriaga RN - 03/21/2024 11:30 AM EST PATIENT EDUCATION TOPIC: PROCEDURE / SURGERY: Post Procedure Teaching: Symptom Management PATIENT NAME: Afia Gutierres PATIENT LOCATION: Room/bed info not found READINESS TO LEARN COGNITIVE ABILITY: Alert and oriented MOTIVATION TO LEARN: Interested FAMILY SUPPORT: Dilma parkinson INSTRUCTION PROVIDED TO: Patient and Family member [...] None REFERRAL (RECOMMENDATION): None documented in this encounterSelect [facility] [place] History and physical note * Everett Dunlap [...] Comments Other Reaction(s): diarrhea, itching and rash Uuimtym-Nix-Xtn Red* Unknown Other Reaction(s): Unknown Sulfamethoxazole-Tr* Unknown [...] DATE: March 21, 2024 TIME: 9:22 AM [facility]01-10-2025 History and physical note* Everett Dunlap MD [...] Comments Other Reaction(s): diarrhea, itching and rash Outmona-Vlr-Fys Red* Unknown Other Reaction(s): Unknown Sulfamethoxazole-Tr* Unknown [...] 2024 TIME: 9:22 AM documented in this encounterSelect [facility] [place]2025 Telephone encounter Note * Telephone Encounter - [...] or your prep instructions please call [phone]. If you need to reschedule call [phone]. [facility] [place]01-09-2025 Miscellaneous Notes* Telephone Encounter - Carmen Meadows [...] . If you need to reschedule call [phone]. documented in this encounterSelect [facility] [place]12-[facility]-2024 Telephone encounter Note * Telephone Encounter - Elham Reid II - 02/19/2024 1:09 PM EST Spoke with patient, rescheduled EUS to 03/21/2024 at [facility]. Elham Mendieta Adm Asst II [facility] [place]12-10-2024 Miscellaneous Notes* Telephone Encounter - Elham Reid II - 02/19/2024 1:09 PM EST Spoke with patient, rescheduled EUS to 03/21/2024 at [facility]. 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 Please call pt back to reschedule. 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 Please call pt back to reschedule. [facility]12-04-2024 Telephone encounter Note* Telephone Encounter - Carmen [...] appointment or your prep instructions please call [phone]. If you need to reschedule call [phone]. [facility] [place]12-04-2024 Miscellaneous Notes* Telephone Encounter - Cramen Meadows RN - 02/13/2024 2:18 PM EST Images from the original note were not included. Spoke with patient and confirmed procedure arrival time 130 PM for EGD-EUS appointment. When you arrive please go to admitting/registration first, then you will be directed to the Endoscopy Dept.on the 2nd floor. If you have any questions about your appointment or your prep instructions please call [phone]. If you need to reschedule call [phone]. 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 Previous work [...] Comments Other Reaction(s): diarrhea, itching and rash Yrdmnty-Feq-Vfg Red* Unknown Other Reaction(s): Unknown Sulfamethoxazole-Tr* Unknown [...] She is scheduled 02/14/2024 at 12:30 PM, [facility]. - EGD - THERAPEUTIC, EUS, OR TUBE INTERVENTIONS 4. Family history of colon cancer in father - ICD9: V16.0, ICD10: Z80.0 5. Smoker - ICD9: 305.1, ICD10: F17.200 She smokes half pack per day for many years. 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 Previous work [...] Comments Other Reaction(s): diarrhea, itching and rash Sinsoro-Ylj-Uix Red* Unknown Other Reaction(s): Unknown Sulfamethoxazole-Tr* Unknown [...] She is scheduled 02/14/2024 at 12:30 PM, [facility]. - EGD - THERAPEUTIC, EUS, OR TUBE INTERVENTIONS 4. Family history of colon cancer in father - ICD9: V16.0, ICD10: Z80.0 5. Smoker - ICD9: 305.1, ICD10: F17.200 She smokes half pack per day for many years. Everett Dunlap MD, FACP documented in this encounterSelect [facility] [place]-2024 Telephone encounter Note * Telephone Encounter - Beth Summers - 12/04/2023 10:02 AM EDT Spoke with patient. Unable to get a ride on 12/18 Thank you Beth Summers PSS [facility] [place]09-24-2024 Miscellaneous Notes* Telephone Encounter - Beth Summers - 12/04/2023 10:02 AM EDT Spoke with patient. Unable to get a ride on 12/18 Thank you Beth Summers PSS * [...] Awaiting MRCP images to be uploaded to [facility]. Schedule follow-up visit in my pancreas clinic [...] are uncomplicated colonic diverticula. documented in this encounterSelect [facility] [place]-23-2024 Telephone encounter Note * Telephone Encounter - Angela Monson RN - 12/03/2023 3:56 PM EDT MRI images available for review. Schedulers, please call pt to schedule OV in pancreas clinic as indicated below. Dr. Dunlap has availability 12/05/2023. Thank you, Angela Monson RN [facility] [place]09-22-2024 Telephone encounter Note* Telephone Encounter - Everett Dunlap MD - 12/02/2023 8:47 PM EDT Awaiting MRCP images to be uploaded to [employer]. Schedule follow-up visit in my pancreas clinic in the next 1-2 months. Likely the patient does not need EUS giving stable small pancreatic cyst measuring 6 mm. Everett Dunlap MD [facility] [place]09-20-2024 Telephone encounter Note* Telephone Encounter - Angela [...] an IPMN. There are uncomplicated colonic diverticula. [facility] [place]04-05-2024 History of Present illness Narrative* Carolina De [...] an active DRN-CC order on file at [facility]. Dr. Carbajal notified. 1222 Dr[address] Gonsalves notified pt ready to be seen. 1257 Dr. Ronal jiang, speaking to patient. Dr. Villeda aware of pt's wishes to remain DNR-CC. Also aware of bradycardia. 1300 Dr Gonsalves speaking to via phone. 1309 Dr. Villeda at [facility] for nerve block procedure. Time out performed. 1316 Nerve block performed 1324 Dr. Carbajal [facility] to discuss procedure. Risks/benefits discussed, all questions answered. 1330 Pt to Special procedures via cart for procedure. documented [place] encounterBON [place] [address]-[place]2024 Hospital Discharge instructions* Discharge Instructions* April Souza [...] during normal business hours (Sunday-Sunday 8am-6pm) at [phone] and have them paged. You may also contact Dr. Carbajal office with any questions or concerns at [phone]. * Attachments The following attachments cannot be sent through [facility] Everywhere. * Vertebroplasty: Post-op (Welsh) * Sedation (Welsh) documented in [facility]* Encounter Date Diagnosis Assessment [...] Dr Iqbal is out of the office. [facility] Other 12-28-2023 Evaluation note* Encounter Date Diagnosis [...] and start weight bearing exercises as tolerated [facility] Other 12-19-2023 Evaluation note* Encounter Date Diagnosis [...] MRI of the lumbar spine at the [facility]. Discussion of new versus old [...] T12 vertebra, initial encounter (ICD-10 - S22.080A) [facility] Other 11-20-2023 Evaluation note* Encounter Date Diagnosis Assessment Notes Treatment Notes Treatment Clinical Notes Jan, Pancreatic cyst (ICD-10 - K86.2) [facility] Other 11-17-2023 Evaluation note* Encounter Date Diagnosis Assessment Notes Treatment Notes Treatment Clinical Notes Jan, Pancreatic cyst (ICD-10 - K86.2) [facility] Other 11-06-2023 Evaluation note* Encounter Date Diagnosis [...] sooner. Otherwise on his schedule on 02/01 [facility] Other 10-17-2023 Evaluation note* Encounter Date Diagnosis [...] pain is adequately controlled with present prescription. [facility] Other 10-16-2023 Evaluation note* Encounter Date Diagnosis Assessment Notes Treatment Notes Treatment Clinical Notes Dec, Moderate episode of recurrent major depressive disorder (ICD-10 - F33.1) [facility] Other 10-09-2023 History of Present illness Narrative* Libby Muñoz PA-C - 12/18/2022 1:00 PM EDT Subjective Ms. Gutierres is a 67-year-old female who is referred by Dr. Barksdale for a subcentimeter pancreatic cyst. She states she had imaging approximately 2 years ago that showed a pancreatic mass. She recently saw her primary care doctor who advised repeat imaging through GI. She saw Dr. Bakrsdale who ordereda non-contrast MRCP on 11/09/22 that [...] but prefers to have this done in [place] with Dr. Barksdale as she is unable to drive to a facility. Libby Muñoz PA-C [facility]Day[facility] Work Phone: 1(881) 965-180009-14-2023 Evaluation note* Encounter Date Diagnosis Assessment Notes [...] and change to a portable oxygen concentrator. [facility] Other 09-14-2023 Evaluation note* Encounter Date Diagnosis [...] POC setting at 2 via nasal cannula. [facility] Other 09-11-2023 Evaluation note* Encounter Date Diagnosis Assessment Notes Treatment Notes Treatment Clinical Notes Nov, Dysuria (ICD-10 - R30.0) [facility] Other 08-24-2023 Evaluation note* Encounter Date Diagnosis Assessment Notes Treatment Notes Treatment Clinical Notes Oct, Fibromyalgia (ICD-10 - M79.7) [facility] Other 08-15-2023 Evaluation note* Encounter Date Diagnosis [...] Reviewed OARRS report. Continue meds and treatment. [facility] Other 07-27-2023 Evaluation note* Encounter Date Diagnosis Assessment Notes Treatment Notes Treatment Clinical Notes Sep, Diverticular disease (ICD-10 - K57.90) [facility] Other 07-26-2023 Evaluation note* Encounter Date Diagnosis Assessment Notes Treatment Notes Treatment Clinical Notes Sep, Lumbar spondylosis (ICD-10 - M47.816) [facility] Other 06-29-2023 Evaluation note* Encounter Date Diagnosis Assessment Notes Treatment Notes Treatment Clinical Notes Aug, Diverticular disease (ICD-10 - K57.90) Patient reports constipation and she will try linzess 290 mg prescription sent to pharmacy RTO 3 months Aug, GERD (gastroesophageal reflux disease) (ICD-10 - K21.9) Aug, Pancreas cyst (ICD-10 - K86.2) Patient is to have an MRCP dont at [facility] ordered today [facility] Other 06-28-2023 Evaluation note* Encounter Date Diagnosis Assessment Notes Treatment Notes Treatment Clinical Notes Aug, Lumbar spondylosis (ICD-10 - M47.816) [facility] Other 06-20-2023 Evaluation note* Encounter Date Diagnosis [...] into present EMR for review by her motorboat mechanic inboard/outboard next week. [facility] Other 06-16-2023 Evaluation note* Encounter Date Diagnosis Assessment Notes Treatment Notes Treatment Clinical Notes Aug, COPD exacerbation (ICD-10 - J44.1) Discussed with patient exam and history is consistent with COPD exacerbation. Rapid COVID is negative in office. Will cover with azithromycin and prednisone burst. Continue maintenance and rescue inhaler as needed. May use Mucinex DM [id number]. Patient has follow-up with PCP next week. Advised to follow-up sooner if any rapidly increasing shortness of breath, wheezing, signs of respiratory distress. Patient verbalized understanding of treatment plan. Patient reports history of frequent yeast infections with antibiotic use. Requesting Diflucan. Dose sent. Advised should only take it develop symptoms. Patient verbalized understanding. Aug, Congestion of nasal sinus (ICD-10 - R09.81) [facility] Other 06-01-2023 Evaluation note* Encounter Date Diagnosis Assessment Notes Treatment Notes Treatment Clinical Notes Aug, Lumbar spondylosis (ICD-10 - M47.816) [facility] Other 05-25-2023 Evaluation note* Encounter Date Diagnosis Assessment Notes Treatment Notes Treatment Clinical Notes July, Chronic obstructive pulmonary disease with (acute) lower respiratory infection (ICD-10 - J44.0) Discussed prednisone could help her hip pain and her wheezing for a short term treatment July, Insomnia, idiopathic (ICD-10 - F51.01) d/c remeron start trazodone. f/u in 1 month [facility] Other 05-03-2023 Evaluation note* Encounter Date Diagnosis Assessment Notes Treatment Notes Treatment Clinical Notes July, Lumbar spondylosis (ICD-10 - M47.816) [facility] Other 04-11-2023 Evaluation note* Encounter Date Diagnosis [...] send in medication if needed. Follow-up with COMMUNICATIONS TOWER TECHNICIAN if no improvement of symptoms. Immediate evaluation in ER for signs/symptoms as discussed. Patient verbalizes understanding and is agreeable with treatment plan. [facility] Other 04-07-2023 Evaluation note* Encounter Date Diagnosis [...] and ulcerations. May be worsened by Lyrica [facility] Other 03-20-2023 Evaluation note* Encounter Date Diagnosis [...] - R53.83) Healthy diet and keep active [facility] Other 03-03-2023 Evaluation note* Encounter Date Diagnosis Assessment Notes Treatment Notes Treatment Clinical Notes May, Lumbar spondylosis (ICD-10 - M47.816) [facility] Other 03-03-2023 Evaluation note* Encounter Date Diagnosis Assessment Notes Treatment Notes Treatment Clinical Notes May, Acute bronchitis due to other specified organisms (ICD-10 - J20.8) [facility] Other 02-28-2023 Evaluation note* Encounter Date Diagnosis [...] hours as needed for cough and dyspnea [facility] Other 02-28-2023 Evaluation note* Encounter Date Diagnosis Assessment Notes Treatment Notes Treatment Clinical Notes Apr, Chronic obstructive pulmonary disease with (acute) exacerbation (ICD-10 - J44.1) [facility] Other 02-02-2023 Evaluation note* Encounter Date Diagnosis Assessment Notes Treatment Notes Treatment Clinical Notes Apr, Lumbar spondylosis (ICD-10 - M47.816) [facility] Other 01-04-2023 Evaluation note* Encounter Date Diagnosis Assessment Notes Treatment Notes Treatment Clinical Notes Mar, Lumbar spondylosis (ICD-10 - M47.816) [facility] Other 01-03-2023 Evaluation note* Encounter Date Diagnosis Assessment Notes Treatment Notes Treatment Clinical Notes Mar, Diverticular disease (ICD-10 - K57.90) continue dicyclomine as needed. Mar, Alternating constipation and diarrhea (ICD-10 - R19.8) start metamucil gummies every day. Mar, GERD (gastroesophageal reflux disease) (ICD-10 - K21.9) patient to continue pantoprazole [facility] Other 11-11-2022 [facility]* Encounter Date Diagnosis Assessment Notes Treatment Notes Treatment Clinical Notes Nov, Lower abdominal pain (ICD-10 - R10.30) PATIENT STATES THAT SHE DOES HAVE BURNING. Nov, Constipation (ICD-10 - K59.00) PATIENT STATES MOVING BOWELS EVERYDAY PATIENT DID REDUCE THE DICYCLOMINE TO NEEDED WHN CONSTIPATED THIS MADE IT WORSE PATIENT IS ADVISED WE WILL START MOVANTIK [facility] Other 09-01-2022 Evaluation note* Encounter Date Diagnosis Assessment Notes Treatment Notes Treatment Clinical Notes Nov, GERD (gastroesophageal reflux disease) (ICD-10 - K21.9) [facility] Other 08-11-2022 NotePROCEDURE: XR HIP RT 2 3V W PELVIS COMPARISON: None. HISTORY: Injury of right hip region FINDINGS: BONES:No acute fracture or dislocation. Minimal degenerative osteoarthropathy of the hips SOFT TISSUES:Negative. No visible soft tissue swelling. EFFUSION:None visible. OTHER: Negative. IMPRESSION: No acute abnormality Electronically authenticated by: JANNA LAWTON Date: 2021-10-20 12:03[facility]06-27-2022 Evaluation note* Encounter Date Diagnosis Assessment Notes [...] although I think that is less likely. [facility] Other 04-04-2022 Evaluation note* Encounter Date Diagnosis Assessment Notes Treatment Notes Treatment Clinical Notes Jun, LUQ abdominal pain (ICD-10 - R10.12) CONTINUE DICYCLOMINE 20 MG TID RTO 6-8 WEEKS Jun, Irritable bowel syndrome with diarrhea (ICD-10 - K58.0) Jun, Bloating (ICD-10 - R14.0) Jun, GERD (gastroesophageal reflux disease) (ICD-10 - K21.9) STOP OMEPRAZOLE [facility] Other 02-02-2022 Evaluation note* Encounter Date Diagnosis [...] Patient care instructions given in writting by [facility] document. [facility] Other 11-11-2021 Evaluation note* Encounter Date Diagnosis Assessment Notes Treatment Notes Treatment Clinical Notes Jan, Irritable bowel syndrome with diarrhea (ICD-10 - K58.0) OBTAIN [facility]ONOSCOPY FROM [facility] [place] 06/2019Jan, Lower abdominal pain (ICD-10 - R10.30) STOP DICYCLOMINE PT TO REPORT PROGRESS Jan, Bloating (ICD-10 - R14.0) Jan, Rectal burning (ICD-10 - K62.89) [facility] Other 09-28-2021 Evaluation note* Encounter Date Diagnosis Assessment Notes Treatment Notes Treatment Clinical Notes Nov, Irritable bowel syndrome with diarrhea (ICD-10 - K58.0) Nov, Generalized abdominal pain (ICD-10 - R10.84) Nov, Abdominal bloating (ICD-10 - R14.0) Nov, History of ischemic colitis (ICD-10 - Z87.19) Nov, Other CT ABD /PELVIS START DICYCLOMINE 20 MG TID ROT 4-6 WEEKS Diarrhea material was printed [facility] Other Evaluation + Plan note No data available for this section [facility] evaluation noteNo InformationNort [employer] Other Evaluation noteNo assessment information available [facility] Work Phone: Evaluation note* Diagnosis 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 documented in this encounter [facility] Work Phone: Evaluation note* Diagnosis Compression fracture of T12 vertebra with delayed healing, subsequent encounter Other osteoporosis with current pathological fracture, vertebra(e), initial encounter for fracture (HCC) documented [facility] Diagnosis Onset Date Resolution Status Anxiety acute Right femoral fracture acute UTI (urinary tract infection) acute Vertebral compression fracture acute Fibromyalgia chronic Anxiety acute COPD exacerbation resolved [facility] Work Phone: Evaluation note* Diagnosis Onset Date Resolution Status Anxiety acute COPD exacerbation resolved Fibromyalgia chronic [facility] Work Phone: Evaluation note* Diagnosis Onset Date Resolution Status COPD exacerbation resolved Anxiety acute Right femoral fracture acute UTI (urinary tract infection) acute Vertebral compression fracture acute Fibromyalgia chronic [facility] Work Phone: Evaluation note* Diagnosis Onset Date Resolution Status Anxiety acute Right femoral fracture acute UTI (urinary tract infection) acute Vertebral compression fracture acute Fibromyalgia chronic Constipation acute GERD (gastroesophageal reflux disease) acute Pancreatic lesion acute [facility] Work Phone: Evaluation note* Diagnosis Pancreatic cyst- Primary Cyst and pseudocyst of pancreas documented in this encounter [facility] note* Diagnosis Chronic LUQ pain- Primary Abdominal pain, left upper quadrant Weight loss Loss of weight Pancreatic cyst Cyst and pseudocyst of pancreas Family history of colon cancer in father Smoker Tobacco use disorder documented in this encounter [facility] note* Diagnosis Onset Date Resolution Status Constipation acute GERD (gastroesophageal reflux disease) acute Pancreatic lesion acute [facility] Work Phone: Evaluation note* Diagnosis Onset Date Resolution Status Constipation acute GERD (gastroesophageal reflux disease) acute Pancreatic lesion acute Anxiety acute Pancreatic lesion acute Right femoral fracture acute Vertebral compression fracture acute COPD (chronic obstructive pulmonary disease) chronic Fibromyalgia chronic UTI (urinary tract infection) acute Dysuria noneactive [facility] Work Phone: Evaluation note* Diagnosis Pancreatic cyst Cyst and pseudocyst of pancreas documented in this encounter [facility] note* Diagnosis Pancreatic cyst (HCC)- Primary Cyst and pseudocyst of pancreas documented in this encounter [facility] general Narrative - Reported* Type Description [...] History Hep B 1972 Hospitalization History diverticulitis [facility] Other History general Narrative - Reported* Type [...] pain in Jan 2022 - non cardiac [facility] Other History [facility] [address] [facility] Other History general Narrative - Reported* Type [...] pain in Jan 2022 - non cardiac [facility] Other Hospital Discharge instructions Additional Instructions DISCHARGE [...] if you have any problems. -Office number [phone]. [facility] Work Phone: Hospital Discharge instructions No data available for this section [facility] Hospital Discharge instructionsAmbulatory Orders* Referral to Gastroenterology Time Frame: 11/26/23, Location: [facility] Work Phone: Progress note No data available for this section [facility] reason for referral (narrative)* Outpatient Procedure (Routine) - Pending Review Specialty Diagnoses / Procedures Referred By Costa macdonald Referred To Contact [facility] Diagnoses Pancreatic cyst Procedures EGD - THERAPEUTIC, EUS, OR TUBE INTERVENTIONS EGD INTRMURAL US NEEDLE ASPIRATE/[place] [address] [place] [address] [facility] [address] [place] [address] Referral ID Status Reason Start Date Expiration Date Visits Requested Visits Authorized [id number] Pending Review Auto-Generat ed Referral 12/19/2023 12/18/2024 1 1 [place] for referral (narrative)* Outpatient Procedure (Routine) - Closed Specialty Diagnoses / Procedures Referred By Contac t Referred To Contact Diagnoses Pancreatic cyst Procedures EGD - THERAPEUTIC, EUS, OR TUBE INTERVENTIONS EGD INTRMURAL US NEEDLE ASPIRATE/[place] [address] [place] [address] [facility] [address] [place] [address] Referral ID Status Reason Start Date Expiration Date V isits Requested Visits Authorized [id number] Closed Auto-Generate d Referral 02/14/2024 04/11/2024 1 1 [facility] (narrative)No reason for referral information [facility] Work Phone: Reason for visit NarrativePAIN MANAGEMENT REFERRAL UPDATENoth[facility] [employer] Other reason for visit Narrative* Outpatient Procedure (Routine) - Closed Specialty Diagnoses / Procedures Referred By Contac t Referred To Contact Diagnoses Pancreatic cyst Procedures EGD - THERAPEUTIC, EUS, OR TUBE INTERVENTIONS EGD INTRMURAL US NEEDLE ASPIRATE/[place] [address] [place] [address] [address] [address] [address] [place] [address] Referral ID Status Reason Start Date Expiration Date V isits Requested Visits Authorized [id number] Closed Auto-Generate d Referral 02/14/2024 04/11/2024 1 1 [facility] Chief Complaint and Reason for Visit Chief Complaint Constipation, Abdomi nal Pain Chief Complaint Vaginal discharge Chief Complaint K86.2 Chief Complaint K86.2 dysuria Chief Complaint flank pain, dysuria Z87.81 Chief Complaint 4 Wk F/U Comp Fx Amb Documentation medication review Chief Complaint 4 Wk F/U Comp Fx Amb Documentation medication review Dysuria Chief Complaint Amb Documentation medication review R30.0 mental health issues [phone] head and chest cold since wed Reason for Visit Anxiety Right femoral fracture UTI (urinary tract infection) Vertebral compression fracture Fibromyalgia Anxiety COPD exacerbation Chief Complaint mental health issues [phone] head and chest cold since wed 3 [...] October 01, 2024 1:09 pm Family History No Family History Records Found Relationship Condition Age at Onset Recorded Date/T [...] Unknown History of stroke Unknown Advance Directives No Advanced Directives Records Found Advance Directive Response Recorded Date/ Time Advance Directives No April 18, 2019 2:20am Advance Directive Response Recorded Date/ Time Advance Directives No April 18, 2019 3:20am Summary Purpose Reason for Referral Specialty Diagnoses / Procedures Referred By Contac t Referred To Contact Radiology Diagnoses Compression fracture of T12 vertebra with delayed healing, subsequent encounter Other osteoporosis with current pathological fracture, vertebra(e), initial encounter for fracture (HCC) Procedures IR VERTEBROPLASTY EACH ADDITIONAL Gabby Lo, MARITIME ENGINEER - X RAY EQUIPMENT SERVICER [address] [address] Referral ID Status Reason Start Date Expiration Date Visits Re quested Visits Authorized [id number] Open 05/29/2023 05/28/2024 1 1 Specialty Diagnoses / Procedures Referred By Costa macdonald Referred To Contact Radiology Diagnoses Compression fracture of T12 vertebra with delayed healing, subsequent encounter Other osteoporosis with current pathological fracture, vertebra(e), initial encounter for fracture (HCC) Procedures IR VERTEBROPLASTY CERVICOTHORACIC Gabby Lo, MARITIME ENGINEER - X RAY EQUIPMENT SERVICER [address] [address] Referral ID Status Reason Start Date Expiration Date Visits Re quested Visits Authorized [id number] Open 05/29/2023 05/28/2024 1 1 Reason evaluate and treat f or compression fracture Diagnosis 1 Compression fracture of T11 vertebra with delayed healing, subsequent encounter (S22.080G) Referral Organization [facility] Referring Provider First Name Ana Referring Provider Last Name Ikm Referring Provider Specialty Nurse Pract itioner Referred Organization [facility] Referred Address [address] [facility] [place], [place],[address] Referred Provider Specialty Intervention al Radiology Referral Priority Routine Reason evaluate and treat Diagnosis 1 Compression fracture of T11 vertebra with delayed healing, subsequent encounter (S22.080G) Referral Organization [facility] Referring Provider First Name Ana Referring Provider Last Name Kim Referring Provider Specialty Nurse Pract itioner [facility] Referred Address [address] [place] [place], [place],[address] Referred Provider Specialty DME Referral Priority Routine Reason evaluate and kwasi at Diagnosis 1 Age-related osteopor osis with current pathological fracture, initial encounter (M80.00XA) [facility] Referring Provider First Name Ana Referring Provider Last Name Julio Referring Provider Specialty Nurse Pract itioner Referred Organization [facility] Pain Managemen t Referred Provider Christo Lobo Referred Address [address] ,[place],[address] Referred Provider Specialty Pain Medicin e Referral Priority Routine General Notes Rebeca Pleitez 11:19:46 AM >received today, patient did just have MRI ordered but has already had CT of the Lumbar spine completed. Sending p2p at this time for scheduling Reason evaluate and kwasi at Diagnosis 1 Age-related osteopor osis with current pathological fracture, initial encounter (M80.00XA) [facility] Referring Provider First Name Ana Referring Provider Last Name Julio Referring Provider Specialty Nurse Pract itioner Referred Organization [facility] Referred Provider Rebeca Munguia Referred Address [address] [place], [place],[address] Referred Provider Specialty Nurse Virgil stone Referral Priority Routine General Notes Rebeca Pleitez 02:57:56 PM >received today, sending p2p at this time for scheduling Reason 01/23/23 Aleksey off ice - lumbar compression fracture - imaging at [facility] Diagnosis 1 Compression fracture of lumbar vertebra, unspecified lumbar vertebral level, initial encounter (S32.000A) Referral Organization [facility] Referring Provider First Name Nettie Referring Provider Last Name Farida Referring Provider Specialty Family Medi cine Referred Organization [facility] Referred Provider Robin Flannery Referred Address ,[place], [place],[address] Referred Provider Specialty Orthopedic S urgery Referral [...] - lumbar compression fracture - imaging at [facility] Diagnosis 1 Compression fracture of lumbar vertebra, unspecified lumbar vertebral level, initial encounter (S32.000A) Referral Organization Counts include 234 beds at the [facility] marcell Referring Provider First Name Nettie Referring Provider Last Name Farida Referring Provider Specialty Family [facility] Referred Organization [facility] Referred Provider Alma DeliaRobin bhatti Referred Address ,[place], [place],[address] Referred Provider Specialty Orthopedic S urgery Referral [...] IR VERTEBROPLASTY CERVICOTHORACIC Gabby Lo, SHEILA - X RAY EQUIPMENT SERVICER [address] [place] [address] Referral ID Status Reason Start Date Expiration Date Visits Re quested Visits Authorized [id number] Open 05/29/2023 05/28/2024 1 1 Reason Comments [...] Nettie Iqbal MD Attending Provider [facility] Primary Care Provider Active Team Status: Inactive Member Role Status Dates Nettie Iqbal MD Primary Care Provider Active ANUSHKA Fleder Attending Provider Active Sight Effects Specialist Relationship Specialty Start Date End Date Nettie Iqbal MD [address] [place] [facility] [place] [phone] PCP - [facility] Medicine 06/13/23 Team Status: Inactive Member Role [...] November 26, 2023 End: November 26, 2023 Sight Effects Specialist Relationship Specialty Start Date End Date Nettie Iqbal MD [address] [place] [phone] PCP - [facility] Medicine 11/30/23 Sight Effects Specialist Relationship Specialty Start Date End Date Nettie Iqbal MD [address] [place] [phone] PCP - [facility] Medicine 11/30/23 Team Status: Active Member Role [...] Dates Nettie Iqbal MD Primary Care Provide radha, Attending Provider Active Start: December 25, 2023 [...] Attending Provider Active Start: January 03, 2024 Sight Effects Specialist Relationship Specialty Start Date End Date Nettie Iqbal MD [address] [place] [phone] PCP - General Family Medicine 11/30/23 Sight Effects Specialist Relationship Specialty Start Date End Date Nettie Iqbal MD [address] [place] [place] [phone] PCP - General Family Medicine 11/30/23 Sight Effects Specialist Relationship Specialty Start Date End Date Nettie Iqbal MD [address] [place] [place] [place] [address] PCP - General Family Medicine 11/30/23 Sight Effects Specialist Relationship Specialty Start Date End Date Nettie Iqbal MD [address] [place] [facility] [place] [phone] PCP - General Family Medicine 11/30/23 Sight Effects Specialist Relationship Specialty Start Date End Date Nettie Iqbal MD [address] [place] [place] [place] [address] PCP - General Family Medicine 11/30/23 Team Status: Inactive Member Role Status Dates Nettie Iqbal MD Primary Care Provider Active Start: July 05, 2024 End: July 05, 2024 Horacio Erwin MD Attending Provider Active S tart: July 05, 2024 End: July 05, 2024 Sight Effects Specialist Relationship Specialty Start Date End Date Nettie Iqbal MD [address] [place] [facility] [phone] PCP - General Family Medicine 11/30/23 Team Status: Active Member Role Status Dates Everett Dunlap Specialist Active Nettie Iqbal MD Primary Care Provider Active Team Status: Active Member Role Status Dates Nettie Iqbal MD Primary Care Provider Active Start: August 21, 2024 Jaymie Duncan ROLLER MECHANIC-C Attending Provider Active St art: August 21, [...] 01, 2024 End: October 01, 2024 Obed Lmia APRN Attending Provider Active Start: October 01, 2024 End: October 01, 2024 Goals (unrecognized section and content) Goals may be documented in a n alternate section INFORMATION SOURCE (unrecogn ized section and content) DATE CREATED AUTHOR 08/18/2022 [facility] DATE CREATED AUTHOR AUTHOR'S ORGANIZ ATION 12/27/2022 [facility] DATE CREATED AUTHOR AUTHOR'S ORGANIZ ATION 01/29/2023 [facility] EPIC DATE CREATED AUTHOR AUTHOR'S ORGANIZ ATION [facility]/14/2023 [facility] DATE CREATED AUTHOR AUTHOR'S ORGANIZ ATION 06/19/2023 [facility] DATE CREATED AUTHOR AUTHOR'S ORGANIZ ATION 03/25/2024 [facility] DATE CREATED AUTHOR AUTHOR'S ORGANIZ ATION 07/06/2024 [facility] DATE CREATED AUTHOR AUTHOR'S ORGANIZ ATION 07/23/2024 [facility] DATE CREATED AUTHOR AUTHOR'S ORGANIZ ATION 10/30/2024 [facility] Source Comments (unrecognize d section and content) In the event this informatio n is protected by the Federal Confidentiality of Alcohol and Drug Abuse Patient Records regulations: The Federal rules restrict any use of the information to criminally investigate or prosecute any alcohol or drug abuse patient.[facility] the event this information is protected by the Federal Confidentiality of Alcohol and Drug Abuse Patient Records regulations: The Federal rules restrict any use of the information to criminally investigate or prosecute any alcohol or drug abuse patient.[facility] the event this information is protected by the Federal Confidentiality of Alcohol and Drug Abuse Patient Records regulations: The Federal rules restrict any use of the information to criminally investigate or prosecute any alcohol or drug abuse patient.[facility] the event this information is protected by the Federal Confidentiality of Alcohol and Drug Abuse Patient Records regulations: The Federal rules restrict any use of the information to criminally investigate or prosecute any alcohol or drug abuse patient.[facility] the event this information is protected by the Federal Confidentiality of Alcohol and Drug Abuse Patient Records regulations: The Federal rules restrict any use of the information to criminally investigate or prosecute any alcohol or drug abuse patient.[facility] the event this information is protected by the Federal Confidentiality of Alcohol and Drug Abuse Patient Records regulations: The Federal rules restrict any use of the information to criminally investigate or prosecute any alcohol or drug abuse patient.[facility] the event this information is protected by the Federal Confidentiality of Alcohol and Drug Abuse Patient Records regulations: The Federal rules restrict any use of the information to criminally investigate or prosecute any alcohol or drug abuse patient.[facility] the event this information is protected by the Federal Confidentiality of Alcohol and Drug Abuse Patient Records regulations: The Federal rules restrict any use of the information to criminally investigate or prosecute any alcohol or drug abuse patient.[facility] the event this information is protected by the Federal Confidentiality of Alcohol and Drug Abuse Patient Records regulations: The Federal rules restrict any use of the information to criminally investigate or prosecute any alcohol or drug abuse patient.[facility] the event this information is protected by the Federal Confidentiality of Alcohol and Drug Abuse Patient Records regulations: The Federal rules restrict any use of the information to criminally investigate or prosecute any alcohol or drug abuse patient.[facility] FOR RECORDS PERTAINING TO PATIENTS WHO ARE [...] BE BASED ON THE PRIMARY CLINICAL RECORDS. [facility]. provides no warranty or guarantee of the accuracy or completeness of information in this document.
[2024-11-03 08:52] VITALS: BP 128/75; PULSE 66; TEMP 36.4; O2SAT 94
[2024-11-03 09:16] VITALS: BP 145/96; BP 146/69; PULSE 58; PULSE 59; O2SAT 97
[2024-11-03] MEDS: LIDOCAINE HCL 2% 400 MG/20 ML MDV 8 ML INJ (09:29)
[2024-11-03] MEDS: DEXAMETHASONE SOD PHOS 10 MG/ML VIAL INJ (09:29)
[2024-11-03] MEDS: BUPIVACAINE HCL 0.25% PF 25 MG/10 ML VIAL 2 ML INJ (09:29)
--- NOTE | 2024-11-03 09:36 | P.ON_ITS ---
Date of procedure: 11/03/24 Pre-op diagnosis: Pain due to thoracic spondylosis without myelopathy Post-op diagnosis: same as pre-op Procedure: Procedure: Right T7-8, 8-9 radiofrequency ablation Medications: Bupivacaine 0.25% 2cc, dexamethasone 10mg, lidocaine 2% 6cc The patient was seen and examined in the preoperative holding area.? The site was marked.? Written informed consent was obtained and placed on the chart.? The patient was brought to the medical procedure unit and placed in the prone position.? A timeout was completed verifying correct patient, procedure, positioning, and special requirements.? The skin overlying the target points, the designated medial branch, was prepped and draped in the usual sterile fashion.? The target point was achieved with a 20-gauge 15 cm with a 10 mm curved active tip radiofrequency cannula under direct fluoroscopic visualization .? The needle was inserted at level T7 on the right side. Needle tip position was confirmed with lateral fluoroscopic position.? Motor stimulation was carried out at 2 Hz up to 5 volts with the absence of extremity activity.? This was repeated at level T8, 9 on right side.?? Sensory stimulation was carried out.? Concordant pain was realized at the above- mentioned sites.? Then radiofrequency lesioning was carried out times 90 seconds at 80 degrees times 2 lesions at each level.? The radiofrequency probe was removed prior to cannula removal.? The above-mentioned injectate was placed in 1 mL increments.? The needle was removed.? Insertion sites were covered.? The patient was taken to the postoperative recovery area and monitored for an appropriate length of time before being found suitable for discharge in the company of a responsible adult. Anesthesia: Local Surgeon: Vickey Beasley Pathology: none sent Condition: stable Disposition: no change
== END 2024-11-03 09:37 | disposition home or self-care (01) ==
PROVIDERS: PCP Family Medicine; Visit Provider Anesthesiology
DX: M47.814 Spondylosis without myelopathy or radiculopathy, thoracic region (principal); M54.6 Pain in thoracic spine
CPT/HCPCS: 64633; 64634; J0665; J1100

== ENCOUNTER 2024-11-17 10:37 | Day surgery (SDC) | payer MEDICARE, SELFPAY ==
--- OUTSIDE RECORDS SUMMARY | 2024-11-17 10:46 | XMS_ITS | CCD ---
Author Organization [facility] Care Team Providers Care Contact Lens Blocker And Cutter Name Role Phone Janna Pina Unavailable Shira Cunningham Unavailable Ambrose Torres Unavailable Kiran Barksdale Unavailable DO Phani Pruitt Primary Care Provider [phone] MD Kiran Barksdale Attending Provider [phone] Phani Pruitt Unavailable SHEILA [place] Attending Provider [...] KIEL De Jesus Consulting Unavailable GRECHNY ., PALU BURRELL Consulting UnavailLONI Elizabeth Consulting Unavailable EDMOND, [...] CHAIM MEZA Consulting Unavailable Nettie Iqbal Unavailable Sanrda Flores Unavailable MD Kiran Barksdale Attending Provider MD Nettie Iqbal Primary Care Provider MD Nettie Iqbal Attending Provider Unavailable Primary Care Provider UnavailPHANI [place] Primary Care Physician [phone] [place] RAMOS Attending Unavailable NO FAMILY, PHYSICIAN [...] Care Provider MD Sam Hare Attending Provider SHEILA Barry Attending Provider [phone] JACI PERAZA Attending Unavailable JUAN C, KALALED [...] Primary Care Unavailable PerlaJaymie Kim Attending Provider [phone] Nettie Iqbal MD Attending Provider [phone] Obed Lima APRN Attending Provider Ramos ROOT, Vickey Winkler Attending Unavailable Ramos ROOT, Vickey Winkler Attending Unavailable Ramos ROOT, Vickey Winkler Attending Unavailable Allergies Allergy Classification Reported Allergen(s) Allergy Type Date of Onset Reaction(s) Facility (20 sources) cefdinir; Translations: [CEFDINIR] Drug Allergy Other: See Comments [facility] (20 sources) Ketorolac Drug Allergy Unknown, Diarrhea [facility] (20 sources) varenicline Drug Allergy 018 Unknown, Muscle Pain [facility] (20 sources) vioxx, antiinflammatories Propensity to adverse reactions Unknown, Hives [facility] (20 sources) Statins Support Drug allergy Unknown [facility] Other (9 sources) varenicline; Translations: [Chantix] Drug Allergy Unknown [facility] Repository (3 sources) Ketorolac Drug Allergy Diarrhea Located Within [facility] [employer] [facility] Other (20 sources) Sulfamethoxazole / Trimethoprim Drug Allergy 023 Unknown [facility] Other (20 sources) rofecoxib Drug Allergy 018 Migraine [facility] (20 sources) NSAIDS (Non-Steroidal Anti-Inflamma Allergy to substance Diarrhea [facility] (20 sources) Bytexyd-BSD-QvF Reductase Inhibitor Allergy to substance [facility] (2 sources) black walnut pollen extract; Translations: [ODLFGPQ-CHY-FJE REDUCTASE INHIBITORS] Drug Allergy 023 [facility] Repository (1 source) cefdinir Drug Allergy [facility] Repository (1 source) Ketorolac Drug Allergy [facility] Repository (3 sources) NSAIDs; Translations: [NSAIDS (NON-STEROIDAL ANTI-INFLAMMATORY DRUG)] Drug allergy (disorder) Other: See Comments [facility] Repository (1 source) rofecoxib Drug Allergy [facility] Repository (1 source) Sulfamethoxazole / Trimethoprim Drug Allergy [facility] Repository (20 sources) Ibuprofen; Translations: [IBUPROFEN] Drug Allergy Unknown [facility] (20 sources) Simvastatin Drug Allergy Unknown, [facility] (20 sources) zoledronic acid; Translations: [ZOLEDRONIC ACID] Drug Allergy Other: See Comments [facility] (5 sources) Allergies Reconciled Propensity to adverse reactions Unknown [facility] Other (20 sources) Toradol *ANALGESICS - ANTI-INFLAMMATORY* Propensity to adverse reactions Unknown [facility] Other (20 sources) Cholesterol Drug allergy Unknown [facility] Other (20 sources) ANTI INFLAMMATORY Propensity to adverse reactions Unknown [facility] Other (5 sources) patient allergy list reviewed by nurse or physicia Propensity to adverse reactions Comment:Done [facility] Other (1 source) DULoxetine Drug Allergy Diarrhea [facility] (10 sources) HMG-CoA reductase inhibitor Propensity to adverse reactions to drug Unknown [facility] (9 sources) Non-steroidal anti-inflammatory agent Propensity to adverse reactions to drug Other: See Comments [facility] (1 source) PARoxetine Drug Allergy Other (See Comments) [facility] (14 sources) Mannitol Drug Allergy Comment:[facility] (14 sources) Sulfamethoxazole Drug Allergy [facility] (14 sources) Trimethoprim Drug Allergy [facility] (14 sources) water for injection,sterile Allergy to substance Comment:Bone [facility] (14 sources) Toradol *ANALGESICS - ANTI-INF Allergy to substance Hives [facility] Comment on above: Free Text Allergy: T oradol *ANALGESICS - ANTI-INFLAMMATORY*; Onset Date: 06/29/2014 (12 sources) Ibadronate Drug Allergy bone pain [facility] (1 source) Sulfamethoxazole / Trimethoprim; Translations: [SULFAMETHOXAZOLE-TRI METHOPRIM] Drug Allergy [facility] Other [place] Repository Medications Current Medications Medication Drug Class(es) Dates Sig (Normalized) Sig (Original) [id number] actuat albuterol 0.09 mg/actuat metered dose [...] capsule,delayed release(DR/EC) Discontinued 40 MG PO Daily November 26, 2023 12:00am October 01, 2024 [...] Discontinued 0 .ROUTE .COMPLEX June 20, 2023 11:47am July 26, 2023 [...] mg Tablet Discontinued 500 MG PO Q4H July 01, 2019 12:00am July 05, 2021 1:43pm acetaminophen 325 mg / HYDROcodone bitartrate 5 mg oral tablet (20 sources) Opioid Agonist Start: 12-25-2023 End: 09-08-2024 take 1 tablet by mouth every eight hours Hydrocodone-Acetami nophen 5-325 mg tablet Discontinued 1 TAB PO Every 8 hours 90 March 28, 2024 April 30, 2024 9:35am [...] 2024 1:00am June 23, 2024 1:11pm amylase [id number] unt / lipase 07298 unt / protease [id number] unt delayed release oral capsule (20 sources) Start: 07-05-2021 End: 07-06-2021 take 39500-779206 capsules by mouth once daily Wksdlc-Pdlymwiq-Pfft ase (Creon) 36,000-114,000- 180,000 unit capsule,delayed release(DR/EC) Discontinued 1 CAP PO Daily July 05, 2021 12:00am July 06, 2021 7:56am Start: 06-13-2021 take 1 capsule by [facility] three times daily at mealtime Creon 32622-233804 UNIT 1 CAPSULE Orally THREE TIMES A DAY WITH MEALS for 30 days Jun, Active azithromycin 250 mg oral tablet (20 sources) Macrolide Antimicrobial Start: 08-11-2023 End: 09-24-2023 Azithromycin 250 mg tablet Discontinued 0 PO .COMPLEX 6 August 11, [...] capsule Discontinued 500 MG PO Twice daily 14 January 16, 2024 1:00am March 28, 2024 2:26pm [...] 01/08/2023 Active take 1 capsule by mo [facility] every twelve hours Linzess 290 MCG [...] mg tablet Discontinued 20 MG PO .COMPLEX 10 August 11, 2023 12:00am September 24, 2023 1:23pm Take 2 tabs po daily x 5 days Start: 08-25-2022 predniSONE 20 MG take 2 tabs po daily x 5 days Orally Once a day for 5 16 Aug, 2022 Active Start: 08-03-2022 take 2 tablets by mo [facility] every twenty-four hours predniSONE 20 MG 2 tablets Orally Once a day for 5 days July, Active Start: 05-09-2022 predniSONE 20 MG 2 Orally Once a day for 5 days Apr, Active Start: 04-13-2021 take 1 tablet by [facility] every twelve hours predniSONE 20 MG 1 tablet Orally bid for 5 day(s) Apr, Active Start: 01-20-2021 take 1 tablet by [facility] every twenty-four hours predniSONE 20 MG 1 [...] 11:55am Start: 04-28-2022 take 1 capsule by [facility] every twelve hours Lyrica 75 MG 1 capsule Orally Twice a day Apr, Active Pregabalin Activ e Lyrica Active prochlorperazine 5 mg/ml injectable solution (1 source) Phenothiazine Start: 03-21-2024 End: 03-22-2024 take 10 mg intravenously every six hours as needed 10 mg, INTRAVENOUS, EVERY 6 HOURS NEEDED, Starting on 03/21/24 at 1118, Until 03/22/24 at 0425, Nausea/Vomiting [...] region] Episodic Other aftercare (2 sources) Other pen[facility]iary (current) drug therapy; Translations: [OTH STRAW BOSS CURRENT DRUG THERAPY] Onset: 06-08-2022 Episodic Other aftercare (10 sources) Long-term current use of drug therapy; Translations: [Other penitentiary (current) drug therapy] Episodic Other and ill-defined [...] sources) High risk drug monitoring status; Translations: [[facility] (current) use of opiate analgesic] Onset: 11-14-2016 Episodic Other aftercare (1 source) intermission coordinator (current) use of opiate analgesic; Translations: [intermission coordinator (current) use of opiate analgesic] Onset: 11-14-2016 [...] (S/P/Bld) [Vol rate/Area] mL/min/{1.73_m2} >=60 mL/min/1.73m 2 [facility] Laboratory - Chemistry and C hemistry - challengeon 08-21-2024 Creatinine [Mass/Vol] 0.73 mg/dL 0.55-1.02 [facility] GFR/1.73 sq M.predicted MDRD (S/P/Bld) [Vol rate/Area] mL/min/{1.73_m2} >=60 mL/min/1.73m 2 [facility] CNPMariel 07-15-2024 EDWINN Telephone (GASTNO) AFIA GUTIERRSE ([id number]) 1955 F Date Time Provider Department 07/15/24 [...] Erwin. She used Dr. Was transferred to [facility]. 2. Weight loss - ICD9: 783.21, ICD10: [...] She is scheduled 02/14/2024 at 12:30 PM, [facility]. - EGD - THERAPEUTIC, EUS, OR [...] and my recommendations to Dr. Erwin at [facility]. Pt had repeat MRCP 07/05/2024 and [...] wanted her MRCP to be done at [facility] facility for my review. I need the images of MRCP (done at [facility]) uploaded to [facility] for my review prior to rendering any opinion. MD Iona Vigil Dawn, RN 07/16/2024 9:10 AM Signed Fannie palacio [facility], they will push images to [facility]. Will monitor. ED Merrill Dawn, RN 07/17/2024 2:[address] Dunlap, GURJIT images available in [facility] to review. ED Merrill Khaled, MD 07/21/2024 [...] dysplasia. Recommend: MRCP in 6 months at [facility] facility. Send my opinion to Dr. Erwin. MD Iona Vigil Dawn, RN 07/22/2024 9:21 AM Signed Recommendations faxed to Dr. Erwin's office. Angela Monson RN Allergies As of Date: 07/15/2024 Noted Allergy Reaction CEFDINIR 06/22/2023 14 - Other: See Comments IBUPROFEN 06/22/2023 16 - Unknown NSAIDS (NON-STEROIDAL ANTI-INFLAM*05/15/2023 14 - Other: See Comments Comments: Other Reaction(s): diarrhea, itching and rash XTWZUAA-OZV-FEI REDUCTASE INHIBIT*01/23/2023 16 - Unknown Comments: Other Reaction(s): Unknown SULFAMETHOXAZOLE-TRIME THOPRIM 01/23/2023 16 - Unknown ZOLEDRONIC ACID 06/22/2023 14 - Other: See Comments Date Reviewed: 03/21/2024 Reviewed by: Sofy Arriaga RN - Fully Assessed Prim (more content not included)... Normal [facility] MR MRCPon 07-05-2024 MR MRCP [facility] [place] [address] MRI Report Signed Patient: Afia Gutierres MR#: [id number] : 1955 Acct:[id number] Age/Sex: 69 / F ADM Date: 07/05/24 Loc: Room: Type: [facility] Attending Dr: Horacio Erwin MD Copies [...] MD 07/05/2445 Signed By: 07/05/24954 Normal [facility] Magnetic resonance imaging r eportOrdered By: Vitaly Perkins on 07-05-2024 Study report [facility] Main [place] [address] [place] [address] MRI Report Signed Patient: Afia Gutierres MR#: [id number] : 1955 Acct:[id number] Age/Sex: 69 / F ADM Date: 5 Loc: MR Room: Type: [facility] Attending Dr: Horacio Erwin MD Copies [...] of the pancreatic head cystic lesion currently ynczdoqie53 mm in greatest dimension. Cystic neoplasm such as IPMN is favored. Sequelaeof pancreatitis or small pseudocysts could also be considered. Impression dictated by: Vitaly Perkins M.D. 07/05/2024 9:55 AM Dictation Location: [facility] Transcribed By: [facility] 07/05/2455 Dictated By: Vitaly Perkins MD 07/05/2445 Signed By: 07/05/2455 [facility] Work Phone: [facility] AF[facility] G[facility]ERR[facility] ([id number]) 1955 F Date Time Provider Department 03/31/24 [...] and my recommendations to Dr. Erwin at [facility]. MD Iona Vigil Dawn, RN 03/31/2024 1:02 PM Signed Pt notified of results and recommendations and verbalized understanding. She will follow up with Dr. Erwin. Reports and recommendations faxed to Dr. Erwin's office. ED MerrillDaily Manzanares 05/07/2024 3:01 PM Signed Patient calls stating [...] Comments: Other Reaction(s): diarrhea, itching and rash JGPEOKB-ZBQ-OXJ REDUCTASE INHIBIT*01/23/2023 16 - Unknown Comments: Other [...] Status:Closed by ANGELA MONSON on 03/31/24 Normal [facility] ANES POSTPROC EVALon 025 ANES POSTPROC EVAL HNO ID: [id number] Author: JACI PERAZA DO Service: Anesthesiology Author Type: Anesthesiologist Type: Anesthesia Postprocedure Evaluation Filed: 03/21/2024 14:29 Note Text: POST ANESTHESIA EVALUATION NOTE : 1955 Procedure Summary Date: 03/21/24 Room / Location: [facility] Endoscopy - ENDO Anesthesia Start: 34 Anesthesia Stop: 1037 Procedure: EGD - THERAPEUTIC, EUS, OR TUBE INTERVENTIONS Diagnosis: Pancreatic cyst (For evaluation of pancreatic cystic neoplasm) Scheduled Providers: Everett Dunlap MD; Jqaueline Bianchi APRN.MATCHBOOK MAKER; Jaci Peraza DO Responsible Provider: Jaci Peraza [...] March 21, 2024 TIME: 2:29 PM CSN: [id number] Normal [facility] ANES PRE-OPon 03-21-2024 ANES PRE-OP HNO ID: [id number] Author: JACI PERAZA DO Service: Critical Care Author Type: Anesthesiologist Type: Anesthesia Preprocedure Evaluation Filed: 03/21/2024 09:32 Note Text: ANESTHESIOLOGY DAY OF SURGERY NOTE : 1955 Procedure Information Date/Time: 03/21/24 1000 Scheduled providers: Everett Dunlap MD; Jaqueline Bianchi APRN.MATCHBOOK MAKER; Jaci Peraza DO Procedure: EGD - THERAPEUTIC, EUS, OR TUBE INTERVENTIONS Location: [facility] Endoscopy - ENDO There is no [...] March 21, 2024 TIME: 9:10 AM CSN: [id number] Normal [facility] CYTOLOGY NON-GYNon CASE REPORT Normal [facility] Comment on above: Order Comment: Speci men Type: SPECIMEN OBTAINED BY ASPIRATION Ordering Facility: [facility] Address: [address] [place] [address] Result Comment: [facility] Cytology Report Case: [id number] Authorizing Provider: Everett Dunlap MD Collected: 03/21/2024 09:58 AM Ordering Location: [facility] Received: 03/21/2024 10:35 AM Endoscopy - ENDO Pathologist: Priya Sumner MD Specimen: Pancreas, pancreatic head cyst Performed By: #### C YTONON #### [facility] CLIA [id number] [address] [place] [address] STATES OF [facility] DIAGNOSIS COMMENT Normal [facility] Comment on above: Order Comment: Speci men Type: SPECIMEN OBTAINED BY ASPIRATION Ordering Facility: [facility] Address: [address] [place] [address] Result Comment: This case was reviewed in consultation with Dr. Dorado who agrees with the diagnosis. Performed By: #### C YTONON #### [facility] CLIA [id number] [address] [place] [address] OF [place] FINAL DIAGNOSIS Normal [facility] Comment on above: Order Comment: Speci men Type: SPECIMEN OBTAINED BY ASPIRATION Ordering Facility: [facility] Address: [address] [place] [address] Result Comment: A. P ancreas, Pancreatic Head Cyst, Fine Needle Aspiration: Neoplastic cells present. Negative for high-grade dysplasia. Performed By: #### C YTONON #### [facility] CLIA [id number] [address] [place] [address] OF [facility] FINAL PERFORMING LAB Normal [facility] Comment on above: Order Comment: Speci men Type: SPECIMEN OBTAINED BY ASPIRATION Ordering Facility: [facility] Address: [address] [place] [address] Result Comment: Tech nical component, topstitcher lockstitch screening performed at [facility], [address] [place] [address] CLIA# [id number] Diagnostic interpretation performed at [facility], [address] [place] [address] CLIA# [id number] Speaker Mounter: Wai Pulido M.D. Performed By: #### C YTONON #### [facility] CLIA [id number] [address] [place] [address] STATES OF [place] GROSS DESCRIPTION A. Pancreas Normal [facility] Comment on above: Order Comment: Speci men Type: SPECIMEN OBTAINED BY ASPIRATION Ordering Facility: [facility] Address: [address] [place] [address] Result Comment: 1 cc opaque dark green fluid. ThinPrep prepared. Performed By: #### C YTONOHeydi #### [facility] CLIA [id number] [address] [place] [address] [place] EGD Study observation Elijah painting 03-21-2024 [facility] Gastrointestinal Endoscopy Patient Name: Afia Gutierres Procedure Date: 03/21/2024 9:09 AM Date of : 1955 Admit Type: Outpatient Age: 68 Room: [place] [address] Gender: Female Note Status: Finalized Attending MD: Everett Dunlap MD, [id number] Procedure: Upper EUS Indications: For evaluation of [...] cyst b (more content not included)... PROVATION [facility] Radiology Study observation (narrative) [facility] HISTORY PHYSICALon HISTORY PHYSICAL HNO ID: [id number] Author: EVERETT DUNLAP MD Service: Gastroenterology Author [...] Comments Other Reaction(s): diarrhea, itching and rash Hiwdavt-Pzq-Oma Red* Unknown Other Reaction(s): Unknown Sulfamethoxazole-Tr* Unknown [...] March 21, 2024 TIME: 9:22 AM Normal [facility] NURSING PROGon 03-21-2024 NURSING PROG HNO ID: [id number] Author: SOFY ARRIAGA RN Service: Nursing Author [...] (RECOMMENDATION): None Electronically Signed By: Sofy Arriaga [facility] Upper EUSon 03-21-2024 Upper EUS [facility] Gastrointestinal Endoscopy Patient Name: Afia Gutierres Procedure Date: 03/21/2024 9:09 AM Date of : 1955 Admit Type: Outpatient Age: 68 Room: [place] [address] Gender: Female Note Status: Finalized Attending MD: Everett Dunlap MD, [id number] Procedure: Upper EUS Indications: For evaluation of [...] 3 months. Procedure Code(s): --- Professional --- 72945, Esophagogastroduodenos copy, flexible, transoral; w (more content not included)... Normal [facility] 03-20-2024 [facility] Telephone (Electronic Sound MagazineO) AFIA GUTIERRES ([id number]) 1955 F Date Time Provider Department 03/20/24 EVERETT DUNLAP FVENDO During your visit today, we recorded the [...] appointment or your prep instructions please call [phone]. If you need to reschedule call [phone]. Allergies As of Date: 03/20/2024 Noted Allergy Reaction CEFDINIR 06/22/2023 14 - Other: See Comments IBUPROFEN 06/22/2023 16 - Unknown NSAIDS (NON-STEROIDAL ANTI-INFLAM*05/15/2023 14 - Other: See Comments Comments: Other Reaction(s): diarrhea, itching and rash CFWGPRQ-TYL-PHA REDUCTASE INHIBIT*01/23/2023 16 - Unknown Comments: Other [...] Encounter Status:Closed by CARMEN MEADOWS on 03/20/24 [facility] CNCMargaret 02-19-2024 CNCO Letter Text [facility] Kin 02-14-2024 EDWINN Telephone (GASTNO) AFIA GUTIERRES ([id number]) 1955 F Date Time Provider Department 02/14/24 EVERETT DUNLAP During your visit today, we recorded the following information about you: Natacha Lopez 02/14/2024 11:34 AM Signed Pt called in and 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 Please call pt back to reschedule. Elham Reid II 02/19/2024 1:09 PM Signed Spoke with patient, rescheduled EUS to 03/21/2024 at [facility]. Elham Guzman II Allergies As of Date: 02/14/2024 Noted Allergy Reaction CEFDINIR 06/22/2023 14 - Other: See Comments IBUPROFEN 06/22/2023 16 - Unknown NSAIDS (NON-STEROIDAL ANTI-INFLAM*05/15/2023 14 - Other: See Comments Comments: Other Reaction(s): diarrhea, itching and rash XJRZWAH-ABS-RTT REDUCTASE INHIBIT*01/23/2023 16 - Unknown Comments: Other [...] REID II on 02/19/[address] [facility] 02-13-2024 CNPN Telephone (FVENDO) AFIA GUTIERRES ([id number]) 1955 F Date Time Provider Department 02/13/24 [...] appointment or your prep instructions please call [phone]. If you need to reschedule call [phone]. Allergies As of Date: 02/13/2024 Noted Allergy Reaction CEFDINIR 06/22/2023 14 - Other: See Comments IBUPROFEN 06/22/2023 16 - Unknown NSAIDS (NON-STEROIDAL ANTI-INFLAM*05/15/2023 14 - Other: See Comments Comments: Other Reaction(s): diarrhea, itching and rash TQKNRPV-XYU-XIX REDUCTASE INHIBIT*01/23/2023 16 - Unknown Comments: Other [...] Status:Closed by CARMEN MEADOWS on 02/13/24 Normal [facility] Laboratory - Chemistry and C hemistry - challengeon 01-16-2024 Bilirubin Ql (U) small [facility] Glucose (U) [Mass/Vol] Negative [facility] Ketones Ql (U) Negative [facility] pH (U) 5.5 [pH] [facility] Specific gravity (U) [Rel density] >=1.030 [facility] Urobilinogen (U) [Mass/Vol] 0.2 mg/dL [facility] Laboratory - Specimen inform ationon 01-16-2024 Appearance (U) clear [facility] Color (U) darkyellow [facility] Laboratory - Urinalysison Leukocyte esterase Test strip Ql (U) trace [facility] Nitrite Ql (U) Negative [facility] Protein Ql (U) 30mg/dl [facility] No Panel Informationon 01-15 Urine Occult Blood small [facility] Urine Cultureon 01-16-2024 Bacteria identified Cx Nom (U) <9,000 colonies/ml mixed bacterial skin contaminants 2 Days PERFORMED BY: [facility] [address] [place] [address] PATHOLOGIST EXECUTIVE MEETING MANAGER SHELTON Fletcher [facility] Comment on above: Performed By: #### C UU #### [facility] [address] Urine cultureOrdered By: Whit Barry on 01-16-2024 Bacteria identified Cx Nom (U) Urine culture [facility] Basophils Auto (Bld) [#/Vol] on 01-03-2024 Basophils (Bld) [#/Vol] 0.0 10 3/uL 0.0-0.1 [facility] Basophils (Bld) [#/Vol] Automated basophil count 0.0-0.1 [facility] Basophils/100 WBC Auto (Bld) on 01-03-2024 Basophils/100 WBC (Bld) 0.4 % 0.2-2.0 [facility] Basophils/100 WBC (Bld) Automated basophil % 0.2-2.0 [facility] Eosinophils/100 WBC Auto (Bl d)on 01-03-2024 Eosinophils/100 WBC (Bld) 1.6 % 0.9-7.0 [facility] Eosinophils/100 WBC (Bld) Automated eosinophil % 0.9-7.0 [facility] Erythrocyte distribution wid th Auto (RBC) [Ratio]on 01-03-2024 Erythrocyte distribution width (RBC) [Ratio] 11.8 % 11.0-15.0 [facility] Erythrocyte distribution width (RBC) [Ratio] Erythrocyte distribution width [Ratio] by Automated count 11.0-15.0 [facility] Estimated glomerular filtrat ion rate (GFR) non- Americanon 01-03-2024 GFR/1.73 sq M.predicted among non-blacks MDRD (S/P/Bld) [Vol rate/Area] mL/min/{1.73_m2} >=60 mL/min/1.73m 2 [facility] GFR/1.73 sq M.predicted among non-blacks MDRD (S/P/Bld) [Vol rate/Area] Estimated glomerular filtration rate (GFR) non- >=60 mL/min/1.73m 2 [facility] Fibrin D-dimer [Presence] in Platelet poor plasma by Latex agglutinationon 01-03-2024 Fibrin D-dimer LA Ql (PPP) 0.62 mg/L FEU High <=0.59 [facility] Comment on above: RESULTS CALLED TO GREYSON COOL RN @BY Shira Tan [id number] in D-Dimer concentration observed withthromboembolic events can [...] plasma by Latex agglutination Critically high <=0.59 [facility] Comment on above: RESULTS CALLED TO GREYSON COOL RN @BY Shira Tan [id number] in D-Dimer concentration observed withthromboembolic events can [...] on 01-03-2024 Globulin (S) [Mass/Vol] 3.4 g/dL [facility] Globulin (S) [Mass/Vol] Serum globulin measurement by calculation (mass/volume) [facility] Hematocrit Auto (Bld) [Volum e fraction]on 01-03-2024 Hematocrit (Bld) [Volume fraction] 40.1 % 36.0-48.0 [facility] Hematocrit (Bld) [Volume fraction] Hematocrit [Volume Fraction] of Blood by Automated count 36.0-48.0 [facility] Hemoglobin [Mass/volume] in Bloodon 01-03-2024 Hemoglobin (Bld) [Mass/Vol] 13.0 g/dL 12.0-16.0 [facility] Hemoglobin (Bld) [Mass/Vol] Hemoglobin [Mass/volume] in Blood 12.0-16.0 [facility] Laboratory - Chemistry and C hemistry - challengeon 01-03-2024 Albumin [Mass/Vol] 3.6 g/dL 3.4-5.0 [facility] ALP [Catalytic activity/Vol] 53 U/L 46-116 [facility] ALT [Catalytic activity/Vol] 17 U/L 14-59 [facility] AST [Catalytic activity/Vol] 17 U/L 15-37 [facility] Bilirubin [Mass/Vol] 0.3 mg/dL 0.2-1.0 [facility] Calcium [Mass/Vol] 9.2 mg/dL 8.5-10.1 [facility] Chloride [Moles/Vol] 104 mmol/L 98-107 [facility] CO2 [Moles/Vol] 28.1 mmol/L 21.0-32.0 [facility] Creatinine [Mass/Vol] 0.72 mg/dL 0.55-1.02 [facility] GFR/1.73 sq M.predicted MDRD (S/P/Bld) [Vol rate/Area] mL/min/{1.73_m2} >=60 mL/min/1.73m 2 [facility] Glucose [Mass/Vol] 121 mg/dL High 74-106 [facility] Lactate [Moles/Vol] 2.4 mmol/L Critically high 0.4-2.0 [facility] Comment on above: RESULTS CALLED TO AP HART RN @BY Shira Garcia at 2234 Lipase [Catalytic activity/Vol] 36.0 U/L 16.0-77.0 [facility] Potassium [Moles/Vol] 3.1 mmol/L Low 3.5-5.1 [facility] Protein [Mass/Vol] 7.0 g/dL 6.4-8.2 [facility] Sodium [Moles/Vol] 142 mmol/L 136-145 [facility] Urea nitrogen [Mass/Vol] 14.0 mg/dL 7.0-18.0 [facility] Urea nitrogen/Creatinine [Mass ratio] 19.4 mg/mg [facility] Bilirubin Ql (U) Negative NEGATIVE [facility] Glucose (U) [Mass/Vol] Negative NEGATIVE [facility] Ketones Ql (U) Negative NEGATIVE [facility] pH (U) 6.5 [pH] 5.0-9.0 [facility] Specific gravity (U) [Rel density] 1.020 1.005-1.025 [facility] Urobilinogen Qn (U) 0.2 {Skip'U}/dL 0.2-1.0 [facility] Laboratory - Hematology and Cell countson 01-03-2024 Immature granulocytes/100 WBC (Bld) 0.2 % 0.0-0.5 [facility] Laboratory - Specimen inform ationon 01-03-2024 Appearance (U) CLEAR CLEAR [facility] Color (U) YELLOW YELLOW [facility] Laboratory - Urinalysison Leukocyte esterase Test strip Ql (U) Negative NEGATIVE [facility] Nitrite Ql (U) Negative NEGATIVE [facility] Protein Ql (U) Negative NEG/TRACE [facility] Leukocytes [#/volume] correc jer for nucleated erythrocytes in Blood by Automated counon 01-03-2024 WBC corrected for nucl RBC Auto (Bld) [#/Vol] 5.0 10 3/uL 4.0-11.0 [facility] WBC corrected for nucl RBC Auto (Bld) [#/Vol] Leukocytes [#/volume] corrected for nucleated erythrocytes in Blood by Automated coun 4.0-11.0 [facility] Lymphocytes Auto (Bld) [#/Vo l]on 01-03-2024 Lymphocytes (Bld) [#/Vol] 2.2 10 3/uL 1.2-3.8 [facility] Lymphocytes (Bld) [#/Vol] Lymphocytes [#/volume] in Blood by Automated count 1.2-3.8 [facility] Lymphocytes/100 WBC Auto (Bl d)on 01-03-2024 Lymphocytes/100 WBC (Bld) 43.3 % 20.5-60.0 [facility] Lymphocytes/100 WBC (Bld) Lymphocytes/100 leukocytes in Blood by Automated count 20.5-60.0 [facility] MCH Auto (RBC) [Entitic mass ]on 01-03-2024 MCH (RBC) [Entitic mass] 32.3 pg 26.7-34.0 [facility] MCH (RBC) [Entitic mass] MCH [Entitic mass] by Automated count 26.7-34.0 [facility] MCHC Auto (RBC) [Mass/Vol]on 01-03-2024 MCHC (RBC) [Mass/Vol] 32.4 g/dL 29.9-35.2 [facility] MCHC (RBC) [Mass/Vol] MCHC [Mass/volume] by Automated count 29.9-35.2 [facility] MCV Auto (RBC) [Entitic vol] on 01-03-2024 MCV (RBC) [Entitic vol] 99.5 fL High 81.0-99.0 [facility] MCV (RBC) [Entitic vol] MCV [Entitic volume] by Automated count High 81.0-99.0 [facility] Monocytes Auto (Bld) [#/Vol] on 01-03-2024 Monocytes (Bld) [#/Vol] 0.4 10 3/uL 0.3-0.8 [facility] Monocytes (Bld) [#/Vol] Automated blood monocyte count 0.3-0.8 [facility] Monocytes/100 WBC Auto (Bld) on 01-03-2024 Monocytes/100 WBC (Bld) 7.4 % 1.7-12.0 [facility] Monocytes/100 WBC (Bld) Automated monocyte % 1.7-12.0 [facility] Neutrophils Auto (Bld) [#/Vo l]on 01-03-2024 Neutrophils (Bld) [#/Vol] 2.4 10 3/uL 1.4-6.5 [facility] Neutrophils (Bld) [#/Vol] Neutrophils [#/volume] in Blood by Automated count 1.4-6.5 [facility] Neutrophils/100 WBC Auto (Bl d)on 01-03-2024 Neutrophils/100 WBC (Bld) 47.1 % 43.0-75.0 [facility] Neutrophils/100 WBC (Bld) Automated neutrophil % 43.0-75.0 [facility] No Panel Informationon 01-02 Eosinophils # (Auto) 0.1 10 3/uL 0.0-0.7 [facility] Immature Granulocyte # (Auto) 0.01 10 3/uL 0.00-0.03 [facility] Troponin I High Sensitivity <4.0 pg/mL Low 4.0-51.3 [facility] Comment on above: CUT-OFF POINTS HAVE BEEN ESTABLISHED BASED ON THE FOURTHUNIVERSAL DEFINITION OF MYOCARDIAL INFARCTION. THE UPPERREFERENCE LIMIT (URL) OF TROPONIN, DEFINED THE 99THPERCENTILE OF cTnI DISTRIBUTION IN A REFERENCE POPULATION,HAS BEEN CONFIRMED THE DECISION THRESHOLD FOR MIDIAGNOSIS.99TH PERCENTILE = 51.4 PG/MLNOTE: HIGH-SENSITIVITY TROPONIN ASSAY IS NOT INTENDED TO BEUSED IN ISOLATION BUT SHOULD BE INTERPRETED IN CONJUNCTIONWITH OTHER DIAGNOSTIC AND CLINICAL INFORMATION. Urine Microscopic Review NO [facility] Urine Occult Blood Negative NEGATIVE [facility] Platelet mean volume Auto (B ld) [Entitic vol]on 01-03-2024 Platelet mean volume (Bld) [Entitic vol] 9.5 fL 9.5-13.5 [facility] Platelet mean volume (Bld) [Entitic vol] Platelet mean volume [Entitic volume] in Blood by Automated count 9.5-13.5 [facility] Platelets Auto (Bld) [#/Vol] on 01-03-2024 Platelets (Bld) [#/Vol] 160 10 3/uL 150-450 [facility] Platelets (Bld) [#/Vol] Platelets [#/volume] in Blood by Automated count 150-450 [facility] RBC Auto (Bld) [#/Vol]on RBC (Bld) [#/Vol] 4.03 10 6/uL Low 4.20-5.40 [facility] RBC (Bld) [#/Vol] Erythrocytes [#/volume] in Blood by Automated count Low 4.20-5.40 [facility] Serum or plasma albumin/glob ulin mass ratioon 01-03-2024 Albumin/Globulin [Mass ratio] 1.1 {ratio} [facility] Albumin/Globulin [Mass ratio] Serum or plasma albumin/globulin mass ratio [facility] Serum or plasma anion gap de terminationon 01-03-2024 Anion gap [Moles/Vol] 13.0 mmol/L [facility] Anion gap [Moles/Vol] Serum or plasma an ion gap determination [facility] CNOVon 12-19-2023 CNOV Office Visit (KEE ) AFIA GUTIERRES ([id number]) 1955 F Date Time Provider Department 12/19/23 [...] 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 Previous work [...] Comments Other Reaction(s): diarrhea, itching and rash Fdaqpjz-Nrd-Egx Red* Unknown Other Reaction(s): Unknown Sulfamethoxazole-Tr* Unknown [...] cough, hemoptys (more content not included)... Normal [facility] HISTORY PHYSICALon 4 HISTORY PHYSICAL HNO ID: [id number] Author: EVERETT DUNLAP MD Service: ? 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 Normal [facility] Basophils Auto (Bld) [#/Vol] on 12-12-2023 Basophils (Bld) [#/Vol] 0.0 10 3/uL 0.0-0.1 [facility] Basophils/100 WBC Auto (Bld) on 12-12-2023 Basophils/100 WBC (Bld) 0.3 % 0.2-2.0 [facility] Eosinophils/100 WBC Auto (Bl d)on 12-12-2023 Eosinophils/100 WBC (Bld) 0.9 % 0.9-7.0 [facility] Erythrocyte distribution wid th Auto (RBC) [Ratio]on 12-12-2023 Erythrocyte distribution width (RBC) [Ratio] 11.8 % 11.0-15.0 [facility] Estimated glomerular filtrat ion rate (GFR) non- Americanon 12-12-2023 GFR/1.73 sq M.predicted among non-blacks MDRD (S/P/Bld) [Vol rate/Area] mL/min/{1.73_m2} >=60 mL/min/1.73m 2 [facility] Globulin Calc (S) [Mass/Vol] on 12-12-2023 Globulin (S) [Mass/Vol] 3.5 g/dL [facility] Hematocrit Auto (Bld) [Volum e fraction]on 12-12-2023 Hematocrit (Bld) [Volume fraction] 42.8 % 36.0-48.0 [facility] Hemoglobin [Mass/volume] in Bloodon 12-12-2023 Hemoglobin (Bld) [Mass/Vol] 13.9 g/dL 12.0-16.0 [facility] Laboratory - Chemistry and C hemistry - challengeon 12-12-2023 Bilirubin Ql (U) Negative NEGATIVE [facility] Glucose (U) [Mass/Vol] Negative NEGATIVE [facility] Ketones Ql (U) Negative NEGATIVE [facility] pH (U) 7.0 [pH] 5.0-9.0 [facility] Specific gravity (U) [Rel density] 1.015 1.005-1.025 [facility] Urobilinogen Qn (U) 0.2 {Skip'U}/dL 0.2-1.0 [facility] Albumin [Mass/Vol] 3.7 g/dL 3.4-5.0 [facility] ALP [Catalytic activity/Vol] 54 U/L 46-116 [facility] ALT [Catalytic activity/Vol] 18 U/L 14-59 [facility] AST [Catalytic activity/Vol] 17 U/L 15-37 [facility] Bilirubin [Mass/Vol] 0.3 mg/dL 0.2-1.0 [facility] Calcium [Mass/Vol] 9.4 mg/dL 8.5-10.1 [facility] Chloride [Moles/Vol] 99 mmol/L 98-107 [facility] CO2 [Moles/Vol] 27.4 mmol/L 21.0-32.0 [facility] Creatinine [Mass/Vol] 0.78 mg/dL 0.55-1.02 [facility] GFR/1.73 sq M.predicted MDRD (S/P/Bld) [Vol rate/Area] mL/min/{1.73_m2} >=60 mL/min/1.73m 2 [facility] Glucose [Mass/Vol] 151 mg/dL High 74-106 [facility] Potassium [Moles/Vol] 3.5 mmol/L 3.5-5.1 [facility] Protein [Mass/Vol] 7.2 g/dL 6.4-8.2 [facility] Sodium [Moles/Vol] 137 mmol/L 136-145 [facility] Urea nitrogen [Mass/Vol] 12.0 mg/dL 7.0-18.0 [facility] Urea nitrogen/Creatinine [Mass ratio] 15.4 mg/mg [facility] Laboratory - Hematology and Cell countson 12-12-2023 Immature granulocytes/100 WBC (Bld) 0.3 % 0.0-0.5 [facility] Laboratory - Microbiology an d Antimicrobial susceptibilityon 12-12-2023 SARS-CoV-2 (COVID-19) RNA JOSH+probe Ql (Unsp spec) Negative NEGATIVE [facility] Comment on above: This test has not [...] inform ationon 12-12-2023 Appearance (U) CLEAR CLEAR [facility] Color (U) LT. YELLOW YELLOW [facility] Laboratory - Urinalysison Leukocyte esterase Test strip Ql (U) Negative NEGATIVE [facility] Nitrite Ql (U) Negative NEGATIVE [facility] Protein Ql (U) Negative NEG/TRACE [facility] Leukocytes [#/volume] correc jer for nucleated erythrocytes in Blood by Automated counon 12-12-2023 WBC corrected for nucl RBC Auto (Bld) [#/Vol] 5.7 10 3/uL 4.0-11.0 [facility] Lymphocytes Auto (Bld) [#/Vo l]on 12-12-2023 Lymphocytes (Bld) [#/Vol] 1.0 10 3/uL Low 1.2-3.8 [facility] Lymphocytes/100 WBC Auto (Bl d)on 12-12-2023 Lymphocytes/100 WBC (Bld) 18.0 % Low 20.5-60.0 [facility] MCH Auto (RBC) [Entitic mass ]on 12-12-2023 MCH (RBC) [Entitic mass] 32.4 pg 26.7-34.0 [facility] MCHC Auto (RBC) [Mass/Vol]on 12-12-2023 MCHC (RBC) [Mass/Vol] 32.5 g/dL 29.9-35.2 [facility] MCV Auto (RBC) [Entitic vol] on 12-12-2023 MCV (RBC) [Entitic vol] 99.8 fL High 81.0-99.0 [facility] Monocytes Auto (Bld) [#/Vol] on 12-12-2023 Monocytes (Bld) [#/Vol] 0.3 10 3/uL 0.3-0.8 [facility] Monocytes/100 WBC Auto (Bld) on 12-12-2023 Monocytes/100 WBC (Bld) 5.1 % 1.7-12.0 [facility] Neutrophils Auto (Bld) [#/Vo l]on 12-12-2023 Neutrophils (Bld) [#/Vol] 4.3 10 3/uL 1.4-6.5 [facility] Neutrophils/100 WBC Auto (Bl d)on 12-12-2023 Neutrophils/100 WBC (Bld) 75.4 % High 43.0-75.0 [facility] No Panel Informationon 12-11 Urine Microscopic Review NO [facility] Urine Occult Blood Negative NEGATIVE [facility] Eosinophils # (Auto) 0.1 10 3/uL 0.0-0.7 [facility] Immature Granulocyte # (Auto) 0.02 10 3/uL 0.00-0.03 [facility] Platelet mean volume Auto (B ld) [Entitic vol]on 12-12-2023 Platelet mean volume (Bld) [Entitic vol] 9.1 fL Low 9.5-13.5 [facility] Platelets Auto (Bld) [#/Vol] on 12-12-2023 Platelets (Bld) [#/Vol] 168 10 3/uL 150-450 [facility] RBC Auto (Bld) [#/Vol]on RBC (Bld) [#/Vol] 4.29 10 6/uL 4.20-5.40 [facility] Serum or plasma albumin/glob ulin mass ratioon 12-12-2023 Albumin/Globulin [Mass ratio] 1.1 {ratio} [facility] Serum or plasma anion gap de terminationon 12-12-2023 Anion gap [Moles/Vol] 14.1 mmol/L [facility] CNPNon 11-30-2023 EDWINN Telephone (GAST[place]) AFIA GUTIERRES ([id number]) 1955 F Date Time Provider Department 11/30/23 [...] images to be uploaded to [facility]. Schedule follow-up visit in my pancreas clinic [...] Status:Closed by [facility] on 12/04/23 Normal [facility] ISTAT XRay CREon 11-02-2023 ISTAT GFR > 60.0 Normal [facility] Comment on above: Result Comment: PERF ORMED BY: [place] [address] PATHOLOGIST EXECUTIVE MEETING MANAGER SHELTON NEVAREZ M.D. Performed By: #### I SCRE #### [address] MR abdomen wo/w conon 2023 MR abdomen wo/w con [facility] [place] [address] [place] [address] MRI Report Signed Patient: Afia Gutierres MR#: [id number] : 1955 Acct:[id number] Age/Sex: 68 / F ADM Date: 11/02/23 Loc: Room: Type: [facility] Attending Dr: Horacio Erwin MD Copies [...] Wai Denise M.D.11/02/2023 8:02 PM Dictation Location: [place] [address] Transcribed By: NOÉ 11/02/232001 Dictated By: Wai Denise II, MD 11/02/231953 Signed By: 11/02/232001 Normal [facility] No Panel InformationOrdered By: Horacio Erwin on 11-02-2023 Bedside Estimated GFR (eGFR) > 60.0 [facility] Whole blood creatinine measu rementOrdered By: Horacio Erwin on 11-02-2023 Creatinine [Mass/Vol] 0.5 mg/dL Low 0.6-1.3 [facility] Comment on above: ER/ESD physician is notified/shown all ISTAT results.Critical values may be confirmed by laboratory testing ifdeemed necessary by ER attending doctor. Result Comment: ER/E SD physician is notified/shown all ISTAT results. Critical values may be confirmed by laboratory testing if deemed necessary by ER attending doctor. Performed By: #### I SCRE #### [facility] [address] Laboratory - Chemistry and C hemistry - challengeon 06-22-2023 Bilirubin Ql (U) Negative [facility] Glucose (U) [Mass/Vol] Negative [facility] Ketones Ql (U) Negative [facility] pH (U) 5 [pH] [facility] Specific gravity (U) [Rel density] 1.025 [facility] Urobilinogen (U) [Mass/Vol] 0.2 mg/dL [facility] Laboratory - Specimen inform ationon 06-22-2023 Appearance (U) cloudy [facility] Color (U) DarkYellow [facility] Laboratory - Urinalysison Leukocyte esterase Test strip Ql (U) Negative [facility] Nitrite Ql (U) Positive [facility] Protein Ql (U) Negative [facility] No Panel Informationon 06-21 Urine Occult Blood Negative [facility] Urine culture routineOrdered By: Nettie Iqbal on 06-22-2023 Bacteria identified Cx Nom (U) Citrobacter freundii complex [facility] IR VERTEBROPLASTY CERVICOTHO RACICon 06-15-2023 IR VERTEBROPLASTY [...] Ricardo Carbajal MD 06/18/23 Final result Normal [facility] IR VERTEBROPLASTY EACH ADDIT IONALon 06-15-2023 IR [...] Ricardo Carbajal MD 06/18/23 Final result Normal [facility] CBCon 06-13-2023 Erythrocyte distribution width (RBC) [Ratio] 13.2 % Normal 11.8-14.4 [facility] Comment on above: Performed By: #### C BC, PT, CP #### [address] [place] [id number] Electrical Timing Device Calibrator: Janna Monzon MD Hematocrit (Bld) [Volume fraction] 44.8 % Normal 36.3-47.1 [facility] Comment on above: Performed By: #### C DARIELA, PT, CP #### [address] [place] [address] Electrical Timing Device Calibrator: Janna Monzon MD Hemoglobin (Bld) [Mass/Vol] 14.2 g/dL Normal 11.9-15.1 [facility] Comment on above: Performed By: #### C DARIELA, PT, CP #### [address] [place] [address] Electrical Timing Device Calibrator: Janna Monzon MD MCH (RBC) [Entitic mass] 31.8 pg Normal 25.2-33.5 [facility] Comment on above: Performed By: #### C DARIELA, PT, CP #### [address] [place] [phone] Electrical Timing Device Calibrator: Janna Monzon MD MCHC (RBC) [Mass/Vol] 31.7 g/dL Normal 28.4-34.8 [facility] Comment on above: Performed By: #### C DARIELA, PT, CP #### [address] [place] [phone] Electrical Timing Device Calibrator: Janna Monzon MD MCV (RBC) [Entitic vol] 100.2 fL Normal 82.6-102.9 [facility] Comment on above: Performed By: #### C DARIELA, PT, CP #### [address] [place] [phone] Electrical Timing Device Calibrator: Janna Monzon MD NRBC Automated 0.0 per 100 WBC Normal 0.0 [facility] Comment on above: Performed By: #### C BC, PT, CP #### [facility] [address] [place], [place] [phone] Electrical Timing Device Calibrator: Janna Monzon MD Platelet mean volume (Bld) [Entitic vol] 9.9 fL Normal 8.1-13.5 [facility] Comment on above: Performed By: #### C BC, PT, CP #### [facility] [address] [place], [place] [phone] Electrical Timing Device Calibrator: Janna Monzon MD Platelets (Bld) [#/Vol] 167 10*3/uL Normal 138-453 [facility] Comment on above: Performed By: #### C DARIELA, PT, CP #### [address] [place] [address] Electrical Timing Device Calibrator: Janna Monzon MD RBC (Bld) [#/Vol] 4.47 10*6/uL Normal 3.95-5.11 [facility] Comment on above: Performed By: #### C BC, PT, CP #### [address] [place], [place] [phone] Electrical Timing Device Calibrator: Janna Monzon MD WBC (Bld) [#/Vol] 4.4 10*3/uL Normal 3.5-11.3 [facility] Comment on above: Performed By: #### C BC, PT, CP #### [address] [place], [id number] ( Electrical Timing Device Calibrator: Janna Monzon MD Comp Metabolic Profon 2023 Albumin [Mass/Vol] 4.3 g/dL Normal 3.5-5.2 [facility] Comment on above: Performed By: #### C BC, PT, CP #### [address] [place] [address] Electrical Timing Device Calibrator: Janna Monzon MD Albumin/Glob Ratio 1.3 Normal 1.0-2.5 [facility] Comment on above: Performed By: #### C BC, PT, CP #### [facility] [address] [place], [place] [phone] Electrical Timing Device Calibrator: Janna Monzon MD Alkaline Phos 78 U/L Normal 35-104 [facility] Comment on above: Performed By: #### C BC, PT, CP #### [facility] [address] [place], [place] [phone] Electrical Timing Device Calibrator: Janna Monzon MD ALT [Catalytic activity/Vol] 11 U/L Normal 5-33 [facility] Comment on above: Performed By: #### C BC, PT, CP #### [facility] [address] [place], [place] [phone] Electrical Timing Device Calibrator: Janna Monzon MD Anion gap [Moles/Vol] 8 mmol/L Low 9-17 [facility] Comment on above: Performed By: #### C BC, PT, CP #### [facility] [address] [place], [place] [phone] Electrical Timing Device Calibrator: Janna Monzon MD AST [Catalytic activity/Vol] 21 U/L Normal <32 [facility] Comment on above: Performed By: #### C BC, PT, CP #### [facility] [address] [place], [place] [phone] Electrical Timing Device Calibrator: Janna Monzon MD Bilirubin [Mass/Vol] 0.2 mg/dL Low 0.3-1.2 [facility] Comment on above: Performed By: #### C BC, PT, CP #### [facility] [address] [place], [place] [phone] Electrical Timing Device Calibrator: Janna Monzon MD BUN/CRE Ratio 30 High 9-20 [facility] Comment on above: Performed By: #### C BC, PT, CP #### [facility] [address] [place], [place] [phone] Electrical Timing Device Calibrator: Janna Monzon MD Calcium [Mass/Vol] 9.3 mg/dL Normal 8.6-10.4 [facility] Comment on above: Performed By: #### C DARIELA, PT, CP #### [facility] [address] [place] [address] Electrical Timing Device Calibrator: Janna Monzon MD Chloride [Moles/Vol] 103 mmol/L Normal 98-107 [facility] Comment on above: Performed By: #### C BC, PT, CP #### [facility] [address] [place] [address] Electrical Timing Device Calibrator: Janna Monzon MD CO2 [Moles/Vol] 29 mmol/L Normal 20-31 [facility] Comment on above: Performed By: #### C DARIELA, PT, CP #### [facility] [address] [place], [place] [phone] Electrical Timing Device Calibrator: Janna Monzno MD Creatinine [Mass/Vol] 0.5 mg/dL Normal 0.5-0.9 [facility] Comment on above: Performed By: #### C DARIELA, PT, CP #### [facility] [address] [place] [address] Electrical Timing Device Calibrator: Janna Monzon MD GFR/1.73 sq M.predicted among non-blacks MDRD (S/P/Bld) [Vol rate/Area] mL/min/{1.73_m2} Normal >60 [facility] Comment on above: Result Comment: These results [...] renal tubular secretion. Performed By: #### C DARIELA, PT, CP #### [facility] [address] [place] [id number] Electrical Timing Device Calibrator: Janna Monzon MD Glucose [Mass/Vol] 77 mg/dL Normal 70-99 [facility] Comment on above: Performed By: #### C BC, PT, CP #### [address] [place] [address] Electrical Timing Device Calibrator: Janna Monzon MD Potassium [Moles/Vol] 4.0 mmol/L Normal 3.7-5.3 [facility] Comment on above: Performed By: #### C BC, PT, CP #### [address] [place], [place] [id number] Electrical Timing Device Calibrator: Janna Monzon MD Protein [Mass/Vol] 7.7 g/dL Normal 6.4-8.3 [facility] Comment on above: Performed By: #### C BC, PT, CP #### [address] [place], [place] [id number] Electrical Timing Device Calibrator: Janna Monzon MD Sodium [Moles/Vol] 140 mmol/L Normal 135-144 [facility] Comment on above: Performed By: #### C BC, PT, CP #### [address] [place], [place] [id number] Electrical Timing Device Calibrator: Janna Monzon MD Urea nitrogen [Mass/Vol] 15 mg/dL Normal 8-23 [facility] Comment on above: Performed By: #### C BC, PT, CP #### [address] [place], [place] [id number] Electrical Timing Device Calibrator: Janna Monzon MD PTon 06-13-2023 INR Coag (PPP) [Relative time] 0.9 {INR} Normal [facility] Comment on above: Result Comment: Therapeutic Range: Moderate Anticoagulant Intensity: INR = 2.0-3.0 High Anticoagulant Intensity: INR = 2.5-3.5 Performed By: #### C BC, PT, CP #### [address] [place], [place] [address] Electrical Timing Device Calibrator: Janna Monzon MD PT Coag (PPP) [Time] 12.3 s Normal 11.7-14.1 [facility] Comment on above: Performed By: #### C BC, PT, CP #### [facility] [address] [place] [address] Electrical Timing Device Calibrator: Janna Monzon MD Automated erythrocytes count in urine sediment (number/area)Ordered By: Nettie Iqbal on 01-11-2023 RBC Auto (Urine sed) [#/Area] 3-4 [HPF] 0-4 [facility] Automated leukocytes count i n urine sediment (number/area)Ordered By: Nettie Iqbal on 01-11-2023 WBC Auto (Urine sed) [#/Area] 0-1 [HPF] 0-4 [facility] Automated urine sediment bina cium oxalate crystal count by microscopy (number/high powOrdered By: Nettie Iqbal on 01-11-2023 Calcium oxalate crystals LM.HPF (Urine sed) [#/Area] 3+ [HPF] [facility] Bilirubin Test strip Ql (U)O rdered By: Nettie Iqbal on 01-11-2023 Bilirubin Ql (U) Negative Negative [facility] Color Auto (U)Ordered By: Jeffery Iqbal on 01-11-2023 Color (U) Dark yellow Yellow [facility] Ketones Auto test strip (U) [Mass/Vol]Ordered By: Nettie Iqbal on 01-11-2023 Ketones (U) [Mass/Vol] Trace Negative [facility] Laboratory - UrinalysisOrder ed By: Nettie Iqbal on 01-11-2023 Hyaline casts LM Ql (Urine sed) 0-8 [LPF] 0-8 [facility] Nitrite Test strip Ql (U)Ord ered By: Nettie Iqbal on 01-11-2023 Nitrite Ql (U) Negative Negative [facility] Protein Auto test strip (U) [Mass/Vol]Ordered By: Nettie Iqbal on 01-11-2023 Protein (U) [Mass/Vol] Negative Negative [facility] Specific gravity Auto test s trip (U) [Rel density]Ordered By: Nettie Iqbal on 01-11-2023 Specific gravity (U) [Rel density] 1.022 1.001-1.030 [facility] Squamous epithelial cells de tection in urine sediment by light microscopyOrdered By: Nettie Iqbal on 01-11-2023 Epithelial cells.squamous LM Ql (Urine sed) 0-1 [HPF] 0-2 [facility] Urine bacteria detection by automated methodOrdered By: Nettie Iqbal on 01-11-2023 Bacteria Auto Ql (U) 1+ None Seen [facility] Urine clarity by refractomet ry automatedOrdered By: Nettie Iqbal on 01-11-2023 Clarity Refractometry automated (U) Cloudy Clear [facility] Urine culture routineOrdered By: Nettie Iqbal on 01-11-2023 Bacteria identified Cx Nom (U) Strep agalactiae - (group b) [facility] Urine glucose measurement by automated test strip (mass/volume)Ordered By: Nettie Iqbal on 01-11-2023 Glucose Auto test strip (U) [Mass/Vol] Normal mg/dL Normal [facility] Urine hemoglobin detection b y automated test stripOrdered By: Nettie Iqbal on 01-11-2023 Hemoglobin Auto test strip Ql (U) Negative Negative [facility] Urine leukocyte esterase det ection by automated test stripOrdered By: Nettie Iqbal on 01-11-2023 Leukocyte esterase Auto test strip Ql (U) Negative Negative [facility] Urine sediment crystal ident ification by light microscopyOrdered By: Nettie Iqbal on 01-11-2023 Crystals LM Nom (Urine sed) N/A [facility] Urobilinogen Auto test strip (U) [Mass/Vol]Ordered By: Nettie Iqbal on 01-11-2023 Urobilinogen (U) [Mass/Vol] Normal mg/dL Normal [facility] pH Auto test strip (U)Ordere d By: Nettie Iqbal on 01-11-2023 pH (U) 5.5 [pH] 5.0-9.0 [facility] ED Note-Physicianon 12-26-19 ED Note-Physician [id number] 0TIFF Normal [facility] Automated erythrocytes count in urine sediment (number/area)Ordered By: Nettie Iqbal on 11-20-2022 RBC Auto (Urine sed) [#/Area] 20-49 [HPF] 0-4 [facility] Automated leukocytes count i n urine sediment (number/area)Ordered By: Nettie Iqbal on 11-20-2022 WBC Auto (Urine sed) [#/Area] Innumerable [HPF] 0-4 [facility] Automated urine sediment bina cium oxalate crystal count by microscopy (number/high powOrdered By: Nettie Iqbal on 11-20-2022 Calcium oxalate crystals LM.HPF (Urine sed) [#/Area] Rare [HPF] [facility] Bilirubin Test strip Ql (U)O rdered By: Nettie Iqbal on 11-20-2022 Bilirubin Ql (U) Negative Negative [facility] Casts typing in urine sedime nt by light microscopyOrdered By: Nettie Iqbal on 11-20-2022 Casts LM Nom (Urine sed) None seen [LPF] None Seen [facility] Color Auto (U)Ordered By: Jeffery Iqbal on 11-20-2022 Color (U) Yellow Yellow [facility] Ketones Auto test strip (U) [Mass/Vol]Ordered By: Nettie Iqbal on 11-20-2022 Ketones (U) [Mass/Vol] 1+ Negative [facility] Laboratory - UrinalysisOrder ed By: Nettie Iqbal on 11-20-2022 Hyaline casts LM Ql (Urine sed) None seen [LPF] 0-8 [facility] Nitrite Test strip Ql (U)Ord ered By: Nettie Iqbal on 11-20-2022 Nitrite Ql (U) Negative Negative [facility] Protein Auto test strip (U) [Mass/Vol]Ordered By: Nettie Iqbal on 11-20-2022 Protein (U) [Mass/Vol] Trace mg/dL Negative [facility] Specific gravity Auto test s trip (U) [Rel density]Ordered By: Nettie Iqbal on 11-20-2022 Specific gravity (U) [Rel density] 1.008 1.001-1.030 [facility] Squamous epithelial cells de tection in urine sediment by light microscopyOrdered By: Nettie Iqbal on 11-20-2022 Epithelial cells.squamous LM Ql (Urine sed) 1-2 [HPF] 0-2 [facility] Urine bacteria detection by automated methodOrdered By: Nettie Iqbal on 11-20-2022 Bacteria Auto Ql (U) 4+ None Seen [facility] Urine clarity by refractomet ry automatedOrdered By: Nettie Iqbal on 11-20-2022 Clarity Refractometry automated (U) Turbid Clear [facility] Urine culture routineOrdered By: Nettie Iqbal on 11-20-2022 Bacteria identified Cx Nom (U) Klebsiella oxytoca [facility] Urine glucose measurement by automated test strip (mass/volume)Ordered By: Nettie Iqbal on 11-20-2022 Glucose Auto test strip (U) [Mass/Vol] Normal mg/dL Normal [facility] Urine hemoglobin detection b y automated test stripOrdered By: Nettie Iqbal on 11-20-2022 Hemoglobin Auto test strip Ql (U) 3+ Negative [facility] Urine leukocyte esterase det ection by automated test stripOrdered By: Nettie Iqbal on 11-20-2022 Leukocyte esterase Auto test strip Ql (U) 4+ Negative [facility] Urobilinogen Auto test strip (U) [Mass/Vol]Ordered By: Nettie Iqbal on 11-20-2022 Urobilinogen (U) [Mass/Vol] Normal mg/dL Normal [facility] pH Auto test strip (U)Ordere d By: Nettie Iqbal on 11-20-2022 pH (U) 7.5 [pH] 5.0-9.0 [facility] COVID Quick Testingon 2022 Result Negative [employer] Other PROF CHEM 8 (BAS METB)on Anion gap [Moles/Vol] 18.4 mmol/L Normal [facility] Comment on above: Performed By: #### B NILSA, TSH #### [facility] [address] [place] [address] Dr. David Cannon Calcium [Mass/Vol] 9.5 mg/dL Normal 8.5-10.1 [facility] Comment on above: Performed By: #### B NILSA, TSH #### [facility] [address] [place], [place] [address] Dr. David Cannon Chloride [Moles/Vol] 104 mmol/L Normal 98-107 [facility] Comment on above: Performed By: #### B NILSA, TSH #### [facility] [address] [place] [address] [address] David Cannon CO2 [Moles/Vol] 23.5 mmol/L Normal 21.0-32.0 [facility] Comment on above: Performed By: #### B NILSA, TSH #### [facility] [address] [place] [address] [address] David Cannon Creatinine [Mass/Vol] 0.87 mg/dL Normal 0.55-1.02 [facility] Comment on above: Performed By: #### B NILSA, TSH #### [facility] [address] [place] [address] Dr. David Cannon EGFR-AF ESTONIAN >60 Normal >=60 [facility] Comment on above: Performed By: #### B NILSA, TSH #### [facility] [address] [place] [address] Dr. David Cannon EGFR-NON AF ESTONIAN >60 Normal >=60 [facility] Comment on above: Performed By: #### B NILSA, TSH #### [facility] [address] [place] [address] Dr. David Cannon Glucose [Mass/Vol] 142 mg/dL Critically high 74-106 [facility] Comment on above: Performed By: #### B NILSA, TSH #### [facility] [address] [place] [address] Dr. David Cannon Potassium [Moles/Vol] 3.9 mmol/L Normal 3.5-5.1 [facility] Comment on above: Performed By: #### B NILSA, TSH #### [facility] [address] [place] [address] Dr. David Cannon Sodium [Moles/Vol] 142 mmol/L Normal 136-145 [facility] Comment on above: Performed By: #### B NILSA, TSH #### [facility] [address] [place] [address] Dr. David Cannon Urea nitrogen [Mass/Vol] 15.0 mg/dL Normal 7.0-18.0 [facility] Comment on above: Performed By: #### B MP, TSH #### [facility] [address] [place] [address] [address] David Cannon Urea nitrogen/Creatinine [Mass ratio] 17.2 mg/mg Normal [facility] Comment on above: Performed By: #### B NILSA, TSH #### [facility] [address] [place] [address] [address] David Cannon TSHon 07-27-2022 TSH 1.753 uIU/mL Normal 0.358-3.740 [facility] Comment on above: Performed By: #### B NILSA, TSH #### [facility] [address] [place] [address] [address] David Cannon VITAMIN B12on 07-27-2022 Cobalamin (Vitamin B12) [Mass/Vol] 938.0 pg/mL Normal 193.0-986.0 [facility] Comment on above: Performed By: #### V ITB12 ####[facility] [address] [place] [address]Dr. David Cannon VITAMIN D 25 OHon 07-27-2022 VIT D 25-OH 45.3 ng/mL Normal [facility] Comment on above: Performed By: #### V ITAD ####[facility] [address] [place] [address]Dr. David Cannon VIT D RANGES SEE BELOW Normal [facility] Comment on above: Result Comment: <20 ng/mL Vit D deficient 20 - <30 ng/mL Vit D insufficient 30 - 100 ng/mL Vit D sufficient >100 ng/mL Potential Toxicity Performed By: #### V ITAD ####[facility] [address] [place] [address]Dr. David Cannon XR HIP RT 2 3V [...] by: JANNA HASSAN Date: 2022-07-27 21:48 Normal [facility] MG MAMM SCREEN 3D ERIC CADon 07-20-2022 MG MAMM SCREEN 3D ERIC CAD Patient: AFIA GUTIERRES Exam Date: 07/20/2022 : 1955 Gender:F Ordering : DR PHANI PRUITT D.O. Admission #: [id number] Family : Order #: [id number] CLICK HERE TO VIEW EXAM RADIOLOGY REPORT [...] colon cancer at age 72. LOCATION: [facility] BREAST COMPOSITION: Scattered areas fibroglandular density. [...] Cormier M.D. on 07/20/2022 at 14:09 Normal [facility] XR DEXA BONE DENSITYon 07-20 [...] by: CELIA CORMIER Date: 2022-07-20 14:26 Normal [facility] Urinalysis - AUTOMATEDon Appearance (U) clear [employer] Other Bilirubin Ql (U) Negative [employer] Other Color (U) yellow [employer] Other Glucose Ql (U) Negative [employer] Other Hemoglobin Ql (U) Negative [employer] Other Ketones Ql (U) Negative [employer] Other Leukocyte esterase Test strip Ql (U) Negative [employer] Other Nitrite Ql (U) Negative [employer] Other pH (U) 5.5 [pH] [employer] Other Protein Ql (U) Negative [employer] Other Specific gravity (U) [Rel density] 1.025 [employer] Other Urobilinogen (U) [Mass/Vol] 0.2 mg/dL [employer] Other Urinalysis - AUTOMATED [employer] Other XR TSPINE 2 VIEWSon 06-17-19 23 [...] CELIA CORMIER Date: 2022-06-16 13:46 Normal [facility] BNPon 06-07-2022 Natriuretic peptide B (Bld) [Mass/Vol] 68.0 pg/mL Normal <=900.0 [facility] Comment on above: Performed By: #### C RP, CMP, BNP ####[facility] [address] [place] [address]Dr. David Cannon CBC AUTO DIFFon 06-07-2022 BASO # 0.0 103/ul Normal 0.0-0.1 [facility] Comment on above: Performed By: #### C BC ####[facility] [address] [place], [place] [address]Dr. David Cannon Basophils/100 WBC (Bld) 0.5 % Normal 0.2-2.0 [facility] Comment on above: Performed By: #### C BC ####[facility] [address] [place], [place] [address]Dr. David Cannon EO # 0.2 103/ul Normal 0.0-0.7 [facility] Comment on above: Performed By: #### C BC ####[facility] [address] [place], [place] [address]Dr. David Cannon Eosinophils/100 WBC (Bld) 2.0 % Normal 0.9-7.0 [facility] Comment on above: Performed By: #### C BC ####[facility] [address] [place], [place] [address]Dr. David Cannon Erythrocyte distribution width (RBC) [Ratio] 12.3 % Normal 11.0-15.0 [facility] Comment on above: Performed By: #### C BC ####[facility] [address] [place] [id number]. David Cannon Hematocrit (Bld) [Volume fraction] 44.4 % Normal 36.0-48.0 [facility] Comment on above: Performed By: #### C BC ####[facility] [address] [place] [id number]. David Cannon Hemoglobin (Bld) [Mass/Vol] 14.3 g/dL Normal 12.0-16.0 [facility] Comment on above: Performed By: #### C BC ####[facility] [address] [place] [address]Dr. David Davis IG # 0.01 10e3/ul Normal 0.00-0.03 [facility] Comment on above: Performed By: #### C BC ####[facility] [address] [place] [address]Dr. Janellbraeden Cannon IG % 0.1 % Normal 0.0-0.5 [facility] Comment on above: Performed By: #### C BC ####[facility] [address] [place] [address]Dr. David Davis LYMPH # 2.7 103/ul Normal 1.2-3.8 [facility] Comment on above: Performed By: #### C BC ####[facility] [address] [place] [address]DrGerry David Cannon Lymphocytes/100 WBC (Bld) 37.0 % Normal 20.5-60.0 [facility] Comment on above: Performed By: #### C BC ####[facility] [address] [place] [address]DrGerry David Cannon MANUAL DIFF REQ NO Normal [facility] Comment on above: Performed By: #### C BC ####[facility] [address] [place] [id number] David Davis MCH (RBC) [Entitic mass] 31.4 pg Normal 26.7-34.0 [facility] Comment on above: Performed By: #### C BC ####[facility] [address] [place], [place] [address]Dr. David Cannon MCHC (RBC) [Mass/Vol] 32.2 g/dL Normal 29.9-35.2 [facility] Comment on above: Performed By: #### C BC ####[facility] [address] [place] [id number]. David Cannon MCV (RBC) [Entitic vol] 97.4 fL Normal 81.0-99.0 [facility] Comment on above: Performed By: #### C BC ####[facility] [address] [place] [address]Dr. David Davis MONO # 0.6 103/ul Normal 0.3-0.8 [facility] Comment on above: Performed By: #### C BC ####[facility] [address] [place] [address]Dr. David Cannon Monocytes/100 WBC (Bld) 7.8 % Normal 1.7-12.0 [facility] Comment on above: Performed By: #### C BC ####[facility] [address] [place], [place] [address]Dr. David Davis NEUT # 3.9 103/ul Normal 1.4-6.5 [facility] Comment on above: Performed By: #### C BC ####[facility] [address] [place] [address]Dr. David Davis Neutrophils/100 WBC (Bld) 52.6 % Normal 43.0-75.0 [facility] Comment on above: Performed By: #### C BC ####[facility] [address] [place] [address]Dr. David Davis Platelet mean volume (Bld) [Entitic vol] 9.0 fL Critically low 9.5-13.5 [facility] Comment on above: Performed By: #### C BC ####[facility] [address] [place] [address]Dr. David Davis PLT 233 103/ul Normal 150-450 [facility] Comment on above: Performed By: #### C BC ####[facility] [address] [place] [address]Dr. David Cannon RBC 4.56 106/ul Normal 4.20-5.40 [facility] Comment on above: Performed By: #### C BC ####[facility] [address] [place] [address]Dr. David Cannon WBC 7.4 103/ul Normal 4.0-11.0 [facility] Comment on above: Performed By: #### C BC ####[facility] [address] [place] [address]Dr. Janellbraeden Cannon CRPon 06-07-2022 CRP [Mass/Vol] mg/L Normal <=1.0 [facility] Comment on above: Performed By: #### C RP, CMP, BNP ####[facility] [address] [place] [address]Dr. David Cannon CULTURE URINEon 06-07-2022 CULTURE URINE Culture Observations : LIGHT GROWTH OF MIXED GENITAL ANISHA. NO POTENTIAL PATHOGENS SEEN. Normal [facility] Comment on above: Performed By: #### U RCX ####[facility] [address] [place] [address]Dr. David Cannon ER URINE PROFILEon 3 Bilirubin Ql (U) Negative Normal NEGATIVE [facility] Comment on above: Performed By: #### B MP, TSH #### [facility] [address] [place] [address] Dr. David Cannon Clarity (U) CLEAR Normal CLEAR [facility] Comment on above: Performed By: #### B MP, TSH #### [facility] [address] [place] [address] Dr. David Cannon Color (U) LT. YELLOW Normal YELLOW [facility] Comment on above: Performed By: #### B MP, TSH #### [facility] [address] [place] [address] Dr. David OWEN A micrscopic examination will be performed if indicated. Normal [facility] Comment on above: Performed By: #### B MP, TSH #### [facility] [address] [place] [address] Dr. David Cannon Glucose Ql (U) Negative Normal NEGATIVE [facility] Comment on above: Performed By: #### B MP, TSH #### [facility] [address] [place] [address] Dr. David Cannon Hemoglobin Ql (U) Negative Normal NEGATIVE [facility] Comment on above: Performed By: #### B MP, TSH #### [facility] [address] [place] [address] Dr. David Cannon Ketones Ql (U) Negative Normal NEGATIVE [facility] Comment on above: Performed By: #### B MP, TSH #### [facility] [address] [place] [address] Dr. David Cannon LEUKOCYTES SMALL Abnormal NEGATIVE [facility] Comment on above: Performed By: #### B MP, TSH #### [facility] [address] [place] [address] Dr. David Cannon Nitrite Ql (U) Negative Normal NEGATIVE [facility] Comment on above: Performed By: #### B MP, TSH #### [facility] [address] [place] [address] Dr. David Cannon pH (U) 6.0 [pH] Normal 5-9 [facility] Comment on above: Performed By: #### B MP, TSH #### [facility] [address] [place] [address] Dr. David Cannon SPEC GRAVITY 1.010 Normal 1.005-<=1.02 5 [facility] Comment on above: Performed By: #### B MP, TSH #### [facility] [address] [place] [address] Dr. David Cannon UA PROTEIN Negative Normal NEGATIVE/ TRACE [facility] Comment on above: Performed By: #### B MP, TSH #### [facility] [address] [place] [address] Dr. David Cannon UR MICRO IND INDICATED Normal [facility] Comment on above: Performed By: #### B MP, TSH #### [facility] [address] [place] [address] Dr. David Cannon Urobilinogen Qn (U) 0.2 {Skip'U}/dL Normal 0.2 - 1. 0 [facility] Comment on above: Performed By: #### B MP, TSH #### [facility] [address] [place] [address] [address] David Cannon PROF 14(COMP METB)on 023 Albumin [Mass/Vol] 4.3 g/dL Normal 3.4-5.0 [facility] Comment on above: Performed By: #### C RP, CMP, BNP ####[facility] [address] [place] [address]Dr. David Cannon Albumin/Globulin [Mass ratio] 1.1 {ratio} Normal [facility] Comment on above: Performed By: #### C RP, CMP, BNP ####[facility] [address] [place] [address]Dr. David Cannon ALP [Catalytic activity/Vol] 82 U/L Normal 46-116 [facility] Comment on above: Performed By: #### C RP, CMP, BNP ####[facility] [address] [place] [address]Dr. David Cannon ALT [Catalytic activity/Vol] 21 U/L Normal 14-59 [facility] Comment on above: Performed By: #### C RP, CMP, BNP ####[facility] [address] [place] [id number]. David Cannon Anion gap [Moles/Vol] 12.3 mmol/L Normal [facility] Comment on above: Performed By: #### C RP, CMP, BNP ####[facility] [address] [place] [address]Dr. David Cannon AST [Catalytic activity/Vol] 15 U/L Normal 15-37 [facility] Comment on above: Performed By: #### C RP, CMP, BNP ####[facility] [address] [place] [address]Dr. David Cannon Bilirubin [Mass/Vol] 0.2 mg/dL Normal 0.2-1.0 [facility] Comment on above: Performed By: #### C RP, CMP, BNP ####[facility] [address] [place] [address]Dr. David Cannon Calcium [Mass/Vol] 9.2 mg/dL Normal 8.5-10.1 [facility] Comment on above: Performed By: #### C RP, CMP, BNP ####[facility] [address] [place] [address]Dr. David Cannon Chloride [Moles/Vol] 104 mmol/L Normal 98-107 [facility] Comment on above: Performed By: #### C RP, CMP, BNP ####[facility] [address] [place] [address]Dr. David Cannon CO2 [Moles/Vol] 31.2 mmol/L Normal 21.0-32.0 [facility] Comment on above: Performed By: #### C RP, CMP, BNP ####[facility] [address] [place] [address]Dr. David Cannon Creatinine [Mass/Vol] 0.52 mg/dL Critically low 0.55-1.02 The [facility] Comment on above: Performed By: #### C RP, CMP, BNP ####[facility] [address] [place] [address]Dr. David Cannon EGFR-AF ESTONIAN >60 Normal >=60 [facility] Comment on above: Performed By: #### C RP, CMP, BNP ####[facility] [address] [place] [address]Dr. David Cannon EGFR-NON AF ESTONIAN >60 Normal >=60 [facility] Comment on above: Performed By: #### C RP, CMP, BNP ####[facility] [address] [place] [address]Dr. David Cannon Globulin (S) [Mass/Vol] 3.9 g/dL Normal [facility] Comment on above: Performed By: #### C RP, CMP, BNP ####[facility] [address] [place] [address]Dr. David Cannon Glucose [Mass/Vol] 79 mg/dL Normal 74-106 [facility] Comment on above: Performed By: #### C RP, CMP, BNP ####[facility] [address] [place] [address]Dr. David Cannon Potassium [Moles/Vol] 3.5 mmol/L Normal 3.5-5.1 [facility] Comment on above: Performed By: #### C RP, CMP, BNP ####[facility] [address] [place] [address]Dr. David Cannon Protein [Mass/Vol] 8.2 g/dL Normal 6.4-8.2 [facility] Comment on above: Performed By: #### C RP, CMP, BNP ####[facility] [address] [place] [address]Dr. David Cannon Sodium [Moles/Vol] 144 mmol/L Normal 136-145 [facility] Comment on above: Performed By: #### C RP, CMP, BNP ####[facility] [address] [place] [address]Dr. David Cannon Urea nitrogen [Mass/Vol] 16.0 mg/dL Normal 7.0-18.0 [facility] Comment on above: Performed By: #### C RP, CMP, BNP ####[facility] [address] [place] [address]Dr. David Cannon Urea nitrogen/Creatinine [Mass ratio] 30.8 mg/mg Normal [facility] Comment on above: Performed By: #### C RP, CMP, BNP ####[facility] [address] [place] [address]DrGerry Cannon PROTIMEon 06-07-2022 INR Coag (PPP) [Relative time] {INR} Normal [facility] Comment on above: Performed By: #### A NARF #### [facility] [address] [address] [address] David Cannon INR GUIDELINES SEE BELOW Normal [facility] Comment on above: Result Comment: USRY RED INR: 2.0 - 3.0 CONDITIONS NOT LISTED BELOW 2.5 - 3.5 FOR PROSTHETIC HEART VALVE REPLACEMENT 2.5 - 3.5 RECURRENT THROMBOSIS Performed By: #### A NARF #### [facility] [address] [address] [address] David Cannon PT Coag (PPP) [Time] 9.6 s Normal 9.0-11.6 [facility] Comment on above: Performed By: #### A NARF #### [facility] [address] [place] [address] Dr. David Cannon PTTon 06-07-2022 aPTT Coag (Bld) [Time] 25.6 s Normal 22.3-36.2 [facility] Comment on above: Performed By: #### A NARF #### [facility] [address] [place] [address] Dr. David Cannon SED RATE ERGRENon 2022 SED RATE 21 mm/hr Normal <=30 [facility] Comment on above: Performed By: #### S EDR ####[facility] [address] [place] [address]Dr. David Cannon URINE MICROSCOPIC ONLYon BACTERIA SMALL Abnormal NONE SEEN The [facility] Comment on above: Performed By: #### B MP, TSH #### [facility] [address] [place] [address] Dr. David Cannon Bacteria identified Cx Nom (U) INDICATED Normal [facility] Comment on above: Performed By: #### B MP, TSH #### [facility] [address] [place] [address] Dr. David Cannon CAST NONE SEEN Normal NONE SEEN The [facility] Comment on above: Performed By: #### B MP, TSH #### [facility] [address] [place] [address] Dr. David Cannon Crystals LM Nom (Urine sed) NONE SEEN Normal NONE SEEN The [facility] Comment on above: Performed By: #### B MP, TSH #### [facility] [address] [place] [address] Dr. David Cannon Epithelial cells LM Ql (Urine sed) FEW Abnormal NONE SEEN /RARE The [facility] Comment on above: Performed By: #### B MP, TSH #### [facility] [address] [place] [address] Dr. David Cannon MUCOUS NONE SEEN Normal NONE SEEN The [facility] Comment on above: Performed By: #### B MP, TSH #### [facility] [address] [place] [address] Dr. David Cannon RBC 0-2 Normal 0-2 [facility] Comment on above: Performed By: #### B MP, TSH #### [facility] [address] [place] [address] Dr. David Cannon WBC 5-10 Abnormal NONE SEEN The [facility] Comment on above: Performed By: #### B MP, TSH #### [facility] [address] [place] [address] Dr. David Cannon NISHI EIA W/REFLEX 5 BIOMARKER Son 05-30-2022 NISHI Direct Negative Normal Negative The [facility] Comment on above: Performed By: #### A NARF #### [facility] [address] [place] [address] Dr. David Cannon C-Reactive Proteinon 023 C-Reactive Protein 0.3 mg/dL <=1.0 mg/dL [facility] Other CBC AUTO DIFFon 05-29-2022 BASO # 0.0 103/ul Normal 0.0-0.1 [facility] Comment on above: Performed By: #### A NARF #### [facility] [address] [place] [address] Dr. David Cannon Basophils/100 WBC (Bld) 0.3 % Normal 0.2-2.0 [facility] Comment on above: Performed By: #### A NARF #### [facility] [address] [place] [address] Dr. David Cannon EO # 0.1 103/ul Normal 0.0-0.7 [facility] Comment on above: Performed By: #### A NARF #### [facility] [address] [place] [address] Dr. David Cannon Eosinophils/100 WBC (Bld) 1.7 % Normal 0.9-7.0 [facility] Comment on above: Performed By: #### A NARF #### [facility] [address] [place] [address] Dr. David Cannon Erythrocyte distribution width (RBC) [Ratio] 12.0 % Normal 11.0-15.0 [facility] Comment on above: Performed By: #### A NARF #### [facility] [address] [place] [address] Dr. David Cannon Hematocrit (Bld) [Volume fraction] 43.9 % Normal 36.0-48.0 [facility] Comment on above: Performed By: #### A NARF #### [facility] [address] [place] [address] Dr. David Cannon Hemoglobin (Bld) [Mass/Vol] 14.0 g/dL Normal 12.0-16.0 [facility] Comment on above: Performed By: #### A NARF #### [facility] [address] [place] [address] Dr. David Cannon IG # 0.02 10e3/ul Normal 0.00-0.03 [facility] Comment on above: Performed By: #### A NARF #### [facility] [address] [place] [address] Dr. David Cannon IG % 0.3 % Normal 0.0-0.5 [facility] Comment on above: Performed By: #### A NARF #### [facility] [address] [place] [address] Dr. David Cannon LYMPH # 2.0 103/ul Normal 1.2-3.8 [facility] Comment on above: Performed By: #### A NARF #### [facility] [address] [place] [address] Dr. David Cannon Lymphocytes/100 WBC (Bld) 31.7 % Normal 20.5-60.0 [facility] Comment on above: Performed By: #### A NARF #### [facility] [address] [place] [address] Dr. David Cannon MANUAL DIFF REQ NO Normal [facility] Comment on above: Performed By: #### A NARF #### [facility] [address] [address] [address] David Cannon MCH (RBC) [Entitic mass] 30.8 pg Normal 26.7-34.0 [facility] Comment on above: Performed By: #### A NARF #### [facility] [address] [place] [address] Dr. David Cannon MCHC (RBC) [Mass/Vol] 31.9 g/dL Normal 29.9-35.2 [facility] Comment on above: Performed By: #### A NARF #### [facility] [address] [place] [address] Dr. David Cannon MCV (RBC) [Entitic vol] 96.5 fL Normal 81.0-99.0 [facility] Comment on above: Performed By: #### A NARF #### [facility] [address] [place] [address] Dr. David Cannon MONO # 0.4 103/ul Normal 0.3-0.8 [facility] Comment on above: Performed By: #### A NARF #### [facility] [address] [place] [address] Dr. David Cannon Monocytes/100 WBC (Bld) 6.2 % Normal 1.7-12.0 [facility] Comment on above: Performed By: #### A NARF #### [facility] [address] [place] [address] Dr. David Cannon NEUT # 3.9 103/ul Normal 1.4-6.5 [facility] Comment on above: Performed By: #### A NARF #### [facility] [address] [place] [address] Dr. David Cannon Neutrophils/100 WBC (Bld) 59.8 % Normal 43.0-75.0 [facility] Comment on above: Performed By: #### A NARF #### [facility] [address] [place] [address] Dr. David Cannon Platelet mean volume (Bld) [Entitic vol] 8.7 fL Critically low 9.5-13.5 [facility] Comment on above: Performed By: #### A NARF #### [facility] [address] [place], [place] [address] Dr. David Cannon PLT 263 103/ul Normal 150-450 [facility] Comment on above: Performed By: #### A NARF #### [facility] [address] [place], [place] [address] Dr. David Cannon RBC 4.55 106/ul Normal 4.20-5.40 [facility] Comment on above: Performed By: #### A NARF #### [facility] [address] [place], [place] [address] Dr. David Cannon WBC 6.4 103/ul Normal 4.0-11.0 [facility] Comment on above: Performed By: #### A NARF #### [facility] [address] [place], [place] [address] Dr. David Cannon CRPon 05-29-2022 CRP 0.3 mg/dL Normal <=1.0 [facility] Comment on above: Performed By: #### C RP, CMP ####[facility] [address] [place], [place] [address]WlDr. David Cannon Complete Blood Count and Dif jin 05-29-2022 Anisocytosis Ql (Bld) Nor [facility] [employer] Other Basophilic stippling LM Ql (Bld) Located Within [facility] [employer] Other RBC morphology finding Nom (Bld) Located [facility] [employer] Other Complete Blood Count and Diff Located [facility] [employer] Other Comprehensive Metabolic Pane sincere 05-29-2022 Albumin/Globulin [Mass ratio] 0.9 {ratio} Normal [facility] [employer] Other Comment on above: Performed By: #### A NARF #### [facility] [address] [address] [address] David Cannon ALP [Catalytic activity/Vol] 79 U/L Normal 46-116 [facility] [employer] Other Comment on above: Performed By: #### A NARF #### [facility] [address] [address] [address] David Cannon ALT [Catalytic activity/Vol] 20 U/L Normal 14-59 [facility] Other Comment on above: Performed By: #### A NARF #### [facility] [address] [place] [address] Dr. David Cannon Anion gap [Moles/Vol] 12.7 mmol/L Normal No rt [facility] Other Comment on above: Performed By: #### A NARF #### [facility] [address] [place] [address] Dr. David Cannon AST [Catalytic activity/Vol] 20 U/L Normal 15-37 [place] [facility] Other Comment on above: Performed By: #### A NARF #### [facility] [address] [place] [address] Dr. David Cannon Chloride [Moles/Vol] 102 mmol/L Normal 98-107 [facility] Other Comment on above: Performed By: #### A NARF #### [facility] [address] [place] [address] Dr. David Cannon Urea nitrogen/Creatinine [Mass ratio] 29.0 mg/mg Normal [place] [facility] Other Comment on above: Performed By: #### A NARF #### [facility] [address] [place] [address] Dr. David Cannon Albumin [Mass/Vol] 3.864024 g/dL 3.4-5.0 g/dL N [facility] [employer] Other Calcium [Mass/Vol] 9.9010417 mg/dL 8.5-10 .1 mg/dL [facility] Other CO2 [Moles/Vol] 31.40240024 mmol/L 21.0-3 2.0 mmol/L [employer] Other Creatinine [Mass/Vol] 0.30167449 mg/dL 0. 55-1.02 mg/dL [employer] Other Potassium [Moles/Vol] 4.20967454 mmol/L 3 .5-5.1 mmol/L [facility] Other Protein [Mass/Vol] 8.920303 g/dL 6.4-8.2 g/dL N [facility] [employer] Other Urea nitrogen [Mass/Vol] 18.7805567 mg/dL 7.0-18.0 mg/dL [facility] Other Comprehensive Metabolic Panel see note [employer] Other Comprehensive Metabolic Panel 142 mmol/L 136-145 mmol/L [employer] Other Comprehensive Metabolic Panel 102 mg/dL 74-106 mg/dL [employer] Other Comprehensive Metabolic Panel >60 mL/min/1.73m2 >=60 mL/min/1.73m 2 [employer] Other Comprehensive Metabolic Panel 0.2 mg/dL 0.2-1.0 mg/dL [facility] Other Comprehensive Metabolic Panel 4.3 g/dL [facility] Other PROF 14(COMP METB)on 023 Albumin [Mass/Vol] 3.8 g/dL Normal 3.4-5.0 [facility] Comment on above: Performed By: #### A NARF #### [facility] [address] [place] [address] Dr. David Cannon Bilirubin [Mass/Vol] 0.2 mg/dL Normal 0.2-1.0 [facility] Comment on above: Performed By: #### A NARF #### [facility] [address] [address] [address] David Cannon Calcium [Mass/Vol] 9.9 mg/dL Normal 8.5-10.1 [facility] Comment on above: Performed By: #### A NARF #### [facility] [address] [address] [address] David Cannon CO2 [Moles/Vol] 31.4 mmol/L Normal 21.0-32.0 [facility] Comment on above: Performed By: #### A NARF #### [facility] [address] [place] [address] Dr. David Cannon Creatinine [Mass/Vol] 0.62 mg/dL Normal 0.55-1.02 [facility] Comment on above: Performed By: #### A NARF #### [facility] [address] [place] [address] Dr. David Cannon EGFR-AF ESTONIAN >60 Normal >=60 [facility] Comment on above: Performed By: #### A NARF #### [facility] [address] [place] [address] Dr. David Cannon EGFR-NON AF ESTONIAN >60 Normal >=60 [facility] Comment on above: Performed By: #### A NARF #### [facility] [address] [place] [address] Dr. David Cannon Globulin (S) [Mass/Vol] 4.3 g/dL Normal [facility] Comment on above: Performed By: #### A NARF #### [facility] [address] [place] [address] Dr. David Cannon Glucose [Mass/Vol] 102 mg/dL Normal 74-106 [facility] Comment on above: Performed By: #### A NARF #### [facility] [address] [place] [address] Dr. David Cannon Potassium [Moles/Vol] 4.1 mmol/L Normal 3.5-5.1 [facility] Comment on above: Performed By: #### A NARF #### [facility] [address] [place] [address] Dr. David Cannon Protein [Mass/Vol] 8.1 g/dL Normal 6.4-8.2 [facility] Comment on above: Performed By: #### A NARF #### [facility] [address] [place] [address] Dr. David Cannon Sodium [Moles/Vol] 142 mmol/L Normal 136-145 [facility] Comment on above: Performed By: #### A NARF #### [facility] [address] [place] [address] Dr. David Cannon Urea nitrogen [Mass/Vol] 18.0 mg/dL Normal 7.0-18.0 [facility] Comment on above: Performed By: #### A NARF #### [facility] [address] [place] [address] Dr. David Cannon UA RANDOM W/MICROSCOPICon AMORPHOUS CRYSTALS RARE Normal [facility] Comment on above: Performed By: #### B MP, TSH #### [facility] [address] [place] [address] Dr. David Cannon BACTERIA NONE SEEN Normal NONE SEEN [facility] Comment on above: Performed By: #### B MP, TSH #### [facility] [address] [place] [address] Dr. David Cannon Bilirubin Ql (U) Negative Normal NEGATIVE [employer] Other Comment on above: Performed By: #### B MP, TSH #### [facility] [address] [place] [address] Dr. David Cannon CAST NONE SEEN Normal NONE SEEN [facility] Comment on above: Performed By: #### B MP, TSH #### [facility] [address] [place] [address] Dr. David Cannon Clarity (U) CLEAR Normal CLEAR [employer] Other Comment on above: Performed By: #### B MP, TSH #### [facility] [address] [place] [address] Dr. David Cannon Color (U) LT. YELLOW Normal YELLOW [facility] Other Comment on above: Performed By: #### B MP, TSH #### [facility] [address] [place] [address] Dr. David Cannon Crystals LM Nom (Urine sed) SEEN Abnormal NONE SEEN [facility] Comment on above: Performed By: #### B MP, TSH #### [facility] [address] [address] [address] David Cannon Epithelial cells LM Ql (Urine sed) RARE Normal NONE SEEN /RARE [facility] Comment on above: Performed By: #### B MP, TSH #### [facility] [address] [address] [address] David Cannon Glucose Ql (U) Negative Normal NEGATIVE [employer] Other Comment on above: Performed By: #### B MP, TSH #### [facility] [address] [address] [address] David Cannon Hemoglobin Ql (U) Negative Normal NEGATIVE [employer] Other Comment on above: Performed By: #### B MP, TSH #### [facility] [address] [place] [address] Dr. David Cannon Ketones Ql (U) Negative Normal NEGATIVE [employer] Other Comment on above: Performed By: #### B MP, TSH #### [facility] [address] [address] [address] David Cannon LEUKOCYTES Negative Normal NEGATIVE [facility] Comment on above: Performed By: #### B MP, TSH #### [facility] [address] [address] [address] David Cannon MUCOUS NONE SEEN Normal NONE SEEN [facility] Comment on above: Performed By: #### B MP, TSH #### [facility] [address] [address] [address] David Cannon Nitrite Ql (U) Negative Normal NEGATIVE [employer] Other Comment on above: Performed By: #### B MP, TSH #### [facility] [address] [place] [address] Dr. David Cannon pH (U) 7.0 [pH] Normal 5-9 [employer] Other Comment on above: Performed By: #### B MP, TSH #### [facility] [address] [place] [address] Dr. David Cannon RBC 0-2 Normal 0-2 [facility] Comment on above: Performed By: #### B MP, TSH #### [facility] [address] [place] [address] Dr. David Cannon SPEC GRAVITY 1.020 Normal 1.005-<=1.02 5 [facility] Comment on above: Performed By: #### B MP, TSH #### [facility] [address] [place] [address] Dr. David Cannon UA PROTEIN Negative Normal NEGATIVE/ TRACE [facility] Comment on above: Performed By: #### B MP, TSH #### [facility] [address] [place] [address] Dr. David Cannon Urobilinogen Qn (U) 0.2 {Skip'U}/dL Normal 0.2 - 1. 0 [facility] Comment on above: Performed By: #### B MP, TSH #### [facility] [address] [place] [address] Dr. David Cannon WBC NONE SEEN Normal NONE SEEN [facility] Comment on above: Performed By: #### B MP, TSH #### [facility] [address] [place] [address] Dr. David Cannon Crystals LM Nom (Urine sed) SEEN #/HPF Abnormal NONE SEEN #/HPF [facility] Other Epithelial cells LM Ql (Urine sed) RARE #/LPF NONE SEEN /RARE #/LPF [employer] Other UA RANDOM W/MICROSCOPIC 1.020 1.005-<=1.02 5 [employer] Other UA RANDOM W/MICROSCOPIC Negative NEGATIVE [employer] Other UA RANDOM W/MICROSCOPIC 0.2 EU/dl 0.2 - 1.0 EU/dl [employer] Other UA RANDOM W/MICROSCOPIC NONE SEEN #/HPF NONE SEEN #/HPF [employer] Other UA RANDOM W/MICROSCOPIC 0-2 #/HPF 0-2 #/HPF [employer] Other UA RANDOM W/MICROSCOPIC NONE SEEN #/LPF NONE SEEN #/LPF [employer] Other UA RANDOM W/MICROSCOPIC NONE SEEN NONE SEEN [employer] Other UA RANDOM W/MICROSCOPIC RARE [employer] Other CULTURE URINEon 04-13-2022 CULTURE URINE Isolate [...] Trimethoprim/Sulfameth oxazole <=20 S F Normal [facility] Comment on above: Performed By: #### U RCX ####[facility] [id number] [address]Dr. David Cannon VAGINITIS/VAGINOSIS DNA PROB Hugo 04-12-2022 Susan species Negative Normal Negative [facility] Comment on above: Performed By: #### B MP, TSH #### [facility] [address] [address] [address] David Cannon Gardnerella vaginalis Negative Normal Negative [facility] Comment on above: Performed By: #### B MP, TSH #### [facility] [address] [address] [address] David Cannon Trichomonas vaginalis Negative Normal Negative [facility] Comment on above: Performed By: #### B MP, TSH #### [facility] [address] [address] [address] David Cannon BNPon 02-24-2022 Natriuretic peptide B (Bld) [Mass/Vol] 173.0 pg/mL Normal <=900.0 [facility] Comment on above: Performed By: #### B NILSA, TSH #### [facility] [address] [place] [address] Dr. David Cannon CARDIAC WAI 3-6on 2 CK [Catalytic activity/Vol] 47 U/L Normal 26-192 [facility] Comment on above: Performed By: #### B NILSA, TSH #### [facility] [address] [place] [address] Dr. David Cannon CK.MB [Mass/Vol] ng/mL Normal <=3.60 The [facility] Comment on above: Performed By: #### B NILSA, TSH #### [facility] [address] [place] [address] Dr. David Cannon HSTROP 7.0 pg/mL Normal 4.0-51.3 [facility] Comment on above: Result Comment: CUT- OFF POINTS HAVE BEEN ESTABLISHED BASED ON THE FOURTH UNIVERSAL DEFINITIONS OF MYOCARDIAL INFARCTION. THE UPPER REFERENCE LIMIT (URL) OF TROPONIN, DEFINED THE 99TH PERCENTILE OF cTnI DISTRIBUTION IN A REFERENCE POPULATION, HAS BEEN CONFIRMED THE DECISION THRESHOLD FOR CO DIAGNOSIS. Performed By: #### B NILSA, TSH #### [facility] [address] [place] [address] Dr. David Cannon CK [Catalytic activity/Vol] 44 U/L Normal 26-192 [facility] Comment on above: Performed By: #### B NILSA, TSH #### [facility] [address] [place] [address] Dr. David Cannon CK.MB [Mass/Vol] ng/mL Normal <=3.60 [facility] Comment on above: Performed By: #### B NILSA, TSH #### [facility] [address] [place] [address] Dr. David Cannon HSTROP 5.3 pg/mL Normal 4.0-51.3 [facility] Comment on above: Result Comment: CUT- OFF POINTS HAVE BEEN ESTABLISHED BASED ON THE FOURTH UNIVERSAL DEFINITIONS OF MYOCARDIAL INFARCTION. THE UPPER REFERENCE LIMIT (URL) OF TROPONIN, DEFINED THE 99TH PERCENTILE OF cTnI DISTRIBUTION IN A REFERENCE POPULATION, HAS BEEN CONFIRMED THE DECISION THRESHOLD FOR CO DIAGNOSIS. Performed By: #### B MP, TSH #### [facility] [address] [place] [address] Dr. David Cannon CBC AUTO DIFFon 02-24-2022 BASO # 0.0 103/ul Normal 0.0-0.1 [facility] Comment on above: Performed By: #### C BC #### [facility] [address] [place] [address] Dr. David Cannon Basophils/100 WBC (Bld) 0.3 % Normal 0.2-2.0 [facility] Comment on above: Performed By: #### C BC #### [facility] [address] [place] [address] Dr. David Cannon EO # 0.2 103/ul Normal 0.0-0.7 [facility] Comment on above: Performed By: #### C BC #### [facility] [address] [place] [address] Dr. David Cannon Eosinophils/100 WBC (Bld) 2.6 % Normal 0.9-7.0 [facility] Comment on above: Performed By: #### C BC #### [facility] [address] [place] [address] Dr. David Cannon Erythrocyte distribution width (RBC) [Ratio] 12.1 % Normal 11.0-15.0 [facility] Comment on above: Performed By: #### C BC #### [facility] [address] [place] [address] Dr. David Cannon Hematocrit (Bld) [Volume fraction] 39.9 % Normal 36.0-48.0 [facility] Comment on above: Performed By: #### C BC #### [facility] [address] [place] [address] Dr. David Cannon Hemoglobin (Bld) [Mass/Vol] 13.2 g/dL Normal 12.0-16.0 [facility] Comment on above: Performed By: #### C BC #### [facility] [address] [place] [address] Dr. David Cannon IG # 0.01 10e3/ul Normal 0.00-0.03 [facility] Comment on above: Performed By: #### C BC #### [facility] [address] [place] [address] Dr. David Cannon IG % 0.2 % Normal 0.0-0.5 [facility] Comment on above: Performed By: #### C BC #### [facility] [address] [place] [address] Dr. David Cnanon LYMPH # 2.8 103/ul Normal 1.2-3.8 [facility] Comment on above: Performed By: #### C BC #### [facility] [address] [place] [address] Dr. David Cannon Lymphocytes/100 WBC (Bld) 48.1 % Normal 20.5-60.0 [facility] Comment on above: Performed By: #### C BC #### [facility] [address] [place] [address] Dr. David Cannon MANUAL DIFF REQ NO Normal [facility] Comment on above: Performed By: #### C BC #### [facility] [address] [place] [address] Dr. David Cannon MCH (RBC) [Entitic mass] 31.6 pg Normal 26.7-34.0 [facility] Comment on above: Performed By: #### C BC #### [facility] [address] [place] [address] Dr. David Cannon MCHC (RBC) [Mass/Vol] 33.1 g/dL Normal 29.9-35.2 [facility] Comment on above: Performed By: #### C BC #### [facility] [address] [place] [address] Dr. David Cannon MCV (RBC) [Entitic vol] 95.5 fL Normal 81.0-99.0 [facility] Comment on above: Performed By: #### C BC #### [facility] [address] [place] [address] Dr. David Cannon MONO # 0.4 103/ul Normal 0.3-0.8 [facility] Comment on above: Performed By: #### C BC #### [facility] [address] [address] [address] David Cannon Monocytes/100 WBC (Bld) 6.1 % Normal 1.7-12.0 [facility] Comment on above: Performed By: #### C BC #### [facility] [address] [address] [address] David Cannon NEUT # 2.5 103/ul Normal 1.4-6.5 [facility] Comment on above: Performed By: #### C BC #### [facility] [address] [address] [address] David Cannon Neutrophils/100 WBC (Bld) 42.7 % Critically low 43.0-75.0 [facility] Comment on above: Performed By: #### C BC #### [facility] [address] [place] [address] Dr. David Cannon Platelet mean volume (Bld) [Entitic vol] 8.7 fL Critically low 9.5-13.5 [facility] Comment on above: Performed By: #### C BC #### [facility] [address] [place] [address] Dr. David Cannon PLT 166 103/ul Normal 150-450 [facility] Comment on above: Performed By: #### C BC #### [facility] [address] [place] [address] Dr. David Cannon RBC 4.18 106/ul Critically low 4.20-5.40 [facility] Comment on above: Performed By: #### C BC #### [facility] [address] [place] [address] Dr. David Cannon WBC 5.7 103/ul Normal 4.0-11.0 [facility] Comment on above: Performed By: #### C BC #### [facility] [address] [place] [address] Dr. David Cannon PROF 14(COMP METB)on 022 Albumin [Mass/Vol] 3.4 g/dL Normal 3.4-5.0 [facility] Comment on above: Performed By: #### B MP, TSH #### [facility] [address] [address] [address] David Cannon Albumin/Globulin [Mass ratio] 1.2 {ratio} Normal [facility] Comment on above: Performed By: #### B MP, TSH #### [facility] [address] [address] [address] David Cannon ALP [Catalytic activity/Vol] 60 U/L Normal 46-116 [facility] Comment on above: Performed By: #### B MP, TSH #### [facility] [address] [address] [address] David Cannon ALT [Catalytic activity/Vol] 16 U/L Normal 14-59 [facility] Comment on above: Performed By: #### B MP, TSH #### [facility] [address] [address] [address] David Cannon Anion gap [Moles/Vol] 10.5 mmol/L Normal [facility] Comment on above: Performed By: #### B MP, TSH #### [facility] [address] [address] [address] David Cannon AST [Catalytic activity/Vol] 17 U/L Normal 15-37 [facility] Comment on above: Performed By: #### B MP, TSH #### [facility] [address] [address] [address] David Cannon Bilirubin [Mass/Vol] 0.4 mg/dL Normal 0.2-1.0 [facility] Comment on above: Performed By: #### B MP, TSH #### [facility] [address] [address] [address] David Cannon Calcium [Mass/Vol] 8.8 mg/dL Normal 8.5-10.1 [facility] Comment on above: Performed By: #### B MP, TSH #### [facility] [address] [address] [address] David Cannon Chloride [Moles/Vol] 106 mmol/L Normal 98-107 [facility] Comment on above: Performed By: #### B MP, TSH #### [facility] [address] [address] [address] David Cannon CO2 [Moles/Vol] 28.4 mmol/L Normal 21.0-32.0 [facility] Comment on above: Performed By: #### B MP, TSH #### [facility] [address] [address] [address] David Cannon Creatinine [Mass/Vol] 0.61 mg/dL Normal 0.55-1.02 [facility] Comment on above: Performed By: #### B MP, TSH #### [facility] [address] [address] [address] David Cannon EGFR-AF ESTONIAN >60 Normal >=60 [facility] Comment on above: Performed By: #### B MP, TSH #### [facility] [address] [address] [address] David Cannon EGFR-NON AF ESTONIAN >60 Normal >=60 [facility] Comment on above: Performed By: #### B MP, TSH #### [facility] [address] [address] [address] David Cannon Globulin (S) [Mass/Vol] 2.9 g/dL Normal [facility] Comment on above: Performed By: #### B MP, TSH #### [facility] [address] [address] [address] David Cannon Glucose [Mass/Vol] 79 mg/dL Normal 74-106 [facility] Comment on above: Performed By: #### B MP, TSH #### [facility] [address] [address] [address] David Cannon Potassium [Moles/Vol] 3.9 mmol/L Normal 3.5-5.1 [facility] Comment on above: Performed By: #### B MP, TSH #### [facility] [address] [address] [address] David Cannon Protein [Mass/Vol] 6.3 g/dL Critically low 6.4-8.2 [facility] Comment on above: Performed By: #### B MP, TSH #### [facility] [address] [place] [address] Dr. David Cannno Sodium [Moles/Vol] 141 mmol/L Normal 136-145 [facility] Comment on above: Performed By: #### B MP, TSH #### [facility] [address] [place] [address] Dr. David Cannon Urea nitrogen [Mass/Vol] 8.0 mg/dL Normal 7.0-18.0 [facility] Comment on above: Performed By: #### B MP, TSH #### [facility] [address] [place] [address] Dr. David Cannon Urea nitrogen/Creatinine [Mass ratio] 13.1 mg/mg Normal [facility] Comment on above: Performed By: #### B MP, TSH #### [facility] [address] [place] [address] Dr. David Cannon BNPon 02-23-2022 Natriuretic peptide B (Bld) [Mass/Vol] 124.0 pg/mL Normal <=900.0 [facility] Comment on above: Performed By: #### A NARF #### [facility] [address] [place] [address] Dr. David Cannon CARDIAC WAI 3-6on 2 CK [Catalytic activity/Vol] 44 U/L Normal 26-192 [facility] Comment on above: Performed By: #### B NILSA, TSH #### [facility] [address] [place] [address] Dr. David Cannon CK.MB [Mass/Vol] ng/mL Normal <=3.60 [facility] Comment on above: Result Comment: Prev iously reported as: 0.30 On 02/23/2022 20:39 By JAW Performed By: #### B MP, TSH #### [facility] [address] [place] [address] Dr. David Cannon HSTROP 6.1 pg/mL Normal 4.0-51.3 [facility] Comment on above: Result Comment: CUT- OFF POINTS HAVE BEEN ESTABLISHED BASED ON THE FOURTH UNIVERSAL DEFINITIONS OF MYOCARDIAL INFARCTION. THE UPPER REFERENCE LIMIT (URL) OF TROPONIN, DEFINED THE 99TH PERCENTILE OF cTnI DISTRIBUTION IN A REFERENCE POPULATION, HAS BEEN CONFIRMED THE DECISION THRESHOLD FOR CO DIAGNOSIS. Performed By: #### B NILSA, TSH #### [facility] [address] [place] [address] Dr. David Cannon CK [Catalytic activity/Vol] 45 U/L Normal 26-192 [facility] Comment on above: Performed By: #### C MREP ####[facility] [id number] [address]DrGerry Cannon CK.MB [Mass/Vol] ng/mL Normal <=3.60 [facility] Comment on above: Performed By: #### C MREP ####[facility] [id number] [address]Dr. David Cannon HSTROP 5.7 pg/mL Normal 4.0-51.3 [facility] Comment on above: Result Comment: CUT- OFF POINTS HAVE BEEN ESTABLISHED BASED ON THE FOURTH UNIVERSAL DEFINITIONS OF MYOCARDIAL INFARCTION. THE UPPER REFERENCE LIMIT (URL) OF TROPONIN, DEFINED THE 99TH PERCENTILE OF cTnI DISTRIBUTION IN A REFERENCE POPULATION, HAS BEEN CONFIRMED THE DECISION THRESHOLD FOR CO DIAGNOSIS. Performed By: #### C MREP ####[facility] [id number] [address]Dr. David Cannon CBC AUTO DIFFon 02-23-2022 BASO # 0.0 103/ul Normal 0.0-0.1 [facility] Comment on above: Performed By: #### B NILSA, TSH #### [facility] [address] [place] [address] Dr. David Cannon Basophils/100 WBC (Bld) 0.7 % Normal 0.2-2.0 [facility] Comment on above: Performed By: #### B NILSA, TSH #### [facility] [address] [place] [address] Dr. David Cannon EO # 0.1 103/ul Normal 0.0-0.7 [facility] Comment on above: Performed By: #### B NILSA, TSH #### [facility] [address] [place] [address] Dr. David Cannon Eosinophils/100 WBC (Bld) 1.1 % Normal 0.9-7.0 [facility] Comment on above: Performed By: #### B NILSA, TSH #### [facility] [address] [place] [address] Dr. David Cannon Erythrocyte distribution width (RBC) [Ratio] 12.2 % Normal 11.0-15.0 [facility] Comment on above: Performed By: #### B NILSA, TSH #### [facility] [address] [place] [address] Dr. David Cannon Hematocrit (Bld) [Volume fraction] 43.4 % Normal 36.0-48.0 [facility] Comment on above: Performed By: #### B NILSA, TSH #### [facility] [address] [place] [address] Dr. David Cannon Hemoglobin (Bld) [Mass/Vol] 14.4 g/dL Normal 12.0-16.0 [facility] Comment on above: Performed By: #### B NILSA, TSH #### [facility] [address] [place] [address] Dr. David Cannon IG # 0.01 10e3/ul Normal 0.00-0.03 [facility] Comment on above: Performed By: #### B NILSA, TSH #### [facility] [address] [place] [address] Dr. David Cannon IG % 0.2 % Normal 0.0-0.5 [facility] Comment on above: Performed By: #### B NILSA, TSH #### [facility] [address] [place] [address] Dr. David Cannon LYMPH # 1.5 103/ul Normal 1.2-3.8 [facility] Comment on above: Performed By: #### B NILSA, TSH #### [facility] [address] [place] [address] Dr. David Cannon Lymphocytes/100 WBC (Bld) 32.7 % Normal 20.5-60.0 [facility] Comment on above: Performed By: #### B NILSA, TSH #### [facility] [address] [place] [address] Dr. David Cannon MANUAL DIFF REQ NO Normal [facility] Comment on above: Performed By: #### B MP, TSH #### [facility] [address] [place] [address] Dr. David Cannon MCH (RBC) [Entitic mass] 31.4 pg Normal 26.7-34.0 [facility] Comment on above: Performed By: #### B MP, TSH #### [facility] [address] [place] [address] Dr. David Cannon MCHC (RBC) [Mass/Vol] 33.2 g/dL Normal 29.9-35.2 [facility] Comment on above: Performed By: #### B MP, TSH #### [facility] [address] [place] [address] Dr. David Cannon MCV (RBC) [Entitic vol] 94.8 fL Normal 81.0-99.0 [facility] Comment on above: Performed By: #### B MP, TSH #### [facility] [address] [place] [address] Dr. David Cannon MONO # 0.3 103/ul Normal 0.3-0.8 [facility] Comment on above: Performed By: #### B MP, TSH #### [facility] [address] [place] [address] Dr. David Cannon Monocytes/100 WBC (Bld) 5.9 % Normal 1.7-12.0 [facility] Comment on above: Performed By: #### B MP, TSH #### [facility] [address] [place] [address] Dr. David Cannon NEUT # 2.6 103/ul Normal 1.4-6.5 [facility] Comment on above: Performed By: #### B MP, TSH #### [facility] [address] [place] [address] Dr. David Cannon Neutrophils/100 WBC (Bld) 59.4 % Normal 43.0-75.0 [facility] Comment on above: Performed By: #### B MP, TSH #### [facility] [address] [address] [address] David Cannon Platelet mean volume (Bld) [Entitic vol] 8.6 fL Critically low 9.5-13.5 [facility] Comment on above: Performed By: #### B MP, TSH #### [facility] [address] [address] [address] David Cannon PLT 200 103/ul Normal 150-450 [facility] Comment on above: Performed By: #### B MP, TSH #### [facility] [address] [address] [address] David Cannon RBC 4.58 106/ul Normal 4.20-5.40 [facility] Comment on above: Performed By: #### B MP, TSH #### [facility] [address] [address] [address] David Cannon WBC 4.4 103/ul Normal 4.0-11.0 [facility] Comment on above: Performed By: #### B MP, TSH #### [facility] [address] [address] [address] David Cannon Covid-19 PCR ([facility])on 02-09 SARS-CoV-2 (COVID-19) RNA JOSH+probe Ql (Unsp spec) Not detected Normal NOT DETECTED [facility] Comment on above: Result Comment: When [...] for this test is supported by the Clinical Radiologist of Health and Human Service's declaration that [...] longer be used). Performed By: #### [facility] ####[facility] [id number] [address]Dr. David Cannon LIPASEon 02-23-2022 Lipase [Catalytic activity/Vol] 85.0 U/L Normal 73.0-393.0 [facility] Comment on above: Performed By: #### A NARF #### [facility] [address] [address] [address] David Cannon PROF 14(COMP METB)on 022 Albumin [Mass/Vol] 4.2 g/dL Normal 3.4-5.0 [facility] Comment on above: Performed By: #### A NARF #### [facility] [address] [place] [address] Dr. David Cannon Albumin/Globulin [Mass ratio] 1.2 {ratio} Normal [facility] Comment on above: Performed By: #### A NARF #### [facility] [address] [place] [address] Dr. David Cannon ALP [Catalytic activity/Vol] 67 U/L Normal 46-116 [facility] Comment on above: Performed By: #### A NARF #### [facility] [address] [place] [address] Dr. David Cannon ALT [Catalytic activity/Vol] 19 U/L Normal 14-59 [facility] Comment on above: Performed By: #### A NARF #### [facility] [address] [place] [address] Dr. David Cannon Anion gap [Moles/Vol] 15.1 mmol/L Normal [facility] Comment on above: Performed By: #### A NARF #### [facility] [address] [place] [address] Dr. David Cannon AST [Catalytic activity/Vol] 18 U/L Normal 15-37 [facility] Comment on above: Performed By: #### A NARF #### [facility] [address] [place] [address] Dr. David Cannon Bilirubin [Mass/Vol] 0.3 mg/dL Normal 0.2-1.0 [facility] Comment on above: Performed By: #### A NARF #### [facility] [address] [place] [address] Dr. David Cannon Calcium [Mass/Vol] 9.7 mg/dL Normal 8.5-10.1 [facility] Comment on above: Performed By: #### A NARF #### [facility] [address] [address] [address] David Cannon Chloride [Moles/Vol] 103 mmol/L Normal 98-107 [facility] Comment on above: Performed By: #### A NARF #### [facility] [address] [place] [address] Dr. David Cannon CO2 [Moles/Vol] 29.0 mmol/L Normal 21.0-32.0 [facility] Comment on above: Performed By: #### A NARF #### [facility] [address] [place] [address] Dr. David Cannon Creatinine [Mass/Vol] 0.67 mg/dL Normal 0.55-1.02 [facility] Comment on above: Performed By: #### A NARF #### [facility] [facility] [address] [place] [address] Dr. David Cannon EGFR-AF ESTONIAN >60 Normal >=60 The [facility] Comment on above: Performed By: #### A NARF #### [facility] [address] [place] [address] Dr. David Cannon EGFR-NON AF ESTONIAN >60 Normal >=60 [facility] Comment on above: Performed By: #### A NARF #### [facility] [address] [place] [address] Dr. David Cannon Globulin (S) [Mass/Vol] 3.6 g/dL Normal [facility] Comment on above: Performed By: #### A NARF #### [facility] [address] [place] [address] Dr. David Cannon Glucose [Mass/Vol] 130 mg/dL Critically high 74-106 T [facility] Comment on above: Performed By: #### A NARF #### [facility] [address] [address] [address] David Cannon Potassium [Moles/Vol] 4.1 mmol/L Normal 3.5-5.1 [facility] Comment on above: Performed By: #### A NARF #### [facility] [address] [place] [address] Dr. David Cannon Protein [Mass/Vol] 7.8 g/dL Normal 6.4-8.2 The [facility] Comment on above: Performed By: #### A NARF #### [facility] [address] [place] [address] Dr. David Cannon Sodium [Moles/Vol] 143 mmol/L Normal 136-145 [facility] Comment on above: Performed By: #### A NARF #### [facility] [address] [place] [address] Dr. David Cannon Urea nitrogen [Mass/Vol] 11.0 mg/dL Normal 7.0-18.0 [facility] Comment on above: Performed By: #### A NARF #### [facility] [address] [place] [address] Dr. David Cannon Urea nitrogen/Creatinine [Mass ratio] 16.4 mg/mg Normal [facility] Comment on above: Performed By: #### A NARF #### [facility] [address] [place] [address] Dr. David Cannon PROTIMEon 02-23-2022 INR Coag (PPP) [Relative time] {INR} Normal [facility] Comment on above: Performed By: #### B MP, TSH #### [facility] [address] [place] [address] Dr. David Cannon INR GUIDELINES SEE BELOW Normal [facility] Comment on above: Result Comment: SURY RED INR: 2.0 - 3.0 CONDITIONS NOT LISTED BELOW 2.5 - 3.5 FOR PROSTHETIC HEART VALVE REPLACEMENT 2.5 - 3.5 RECURRENT THROMBOSIS Performed By: #### B MP, TSH #### [facility] [address] [place], [place] [address] Dr. David Cannon PT Coag (PPP) [Time] 10.0 s Normal 9.0-11.6 The [facility] Comment on above: Performed By: #### B MP, TSH #### [facility] [address] [place], [place] [address] Dr. David Cannon PTTon 02-23-2022 aPTT Coag (Bld) [Time] 25.4 s Normal 22.3-36.2 The [facility] Comment on above: Performed By: #### B MP, TSH #### [facility] [address] [address] [address] David Cannon TROPONIN, HIGH SENSITIVITYon 02-23-2022 HSTROP 6.0 pg/mL Normal 4.0-51.3 The [facility] Comment on above: Result Comment: CUT- OFF POINTS HAVE BEEN ESTABLISHED BASED ON THE FOURTH UNIVERSAL DEFINITIONS OF MYOCARDIAL INFARCTION. THE UPPER REFERENCE LIMIT (URL) OF TROPONIN, DEFINED THE 99TH PERCENTILE OF cTnI DISTRIBUTION IN A REFERENCE POPULATION, HAS BEEN CONFIRMED THE DECISION THRESHOLD FOR CO DIAGNOSIS. Performed By: #### A NARF #### [facility] [address] [address] [address] David Cannon XR CHEST 1 Von [...] by: LONI SALAS Date: 2022-02-23 16:18 Normal [facility] CT ABD/PELV W CONon 01-08-20 CT [...] CHAIM MEZA Date: 2022-01-06 22:12 Normal The [facility] AMYLASEon 01-06-2022 Amylase [Catalytic activity/Vol] 34 U/L Normal 25-115 The [facility] Comment on above: Performed By: #### C ELAINE ASH ####[facility] [address] [place], [place] [address]FhDr. David Cannon CBC AUTO DIFFon 01-06-2022 BASO # 0.0 103/ul Normal 0.0-0.1 [facility] Comment on above: Performed By: #### A NARF #### [facility] [address] [place], [place] [address] Dr. David Cannon Basophils/100 WBC (Bld) 0.5 % Normal 0.2-2.0 [facility] Comment on above: Performed By: #### A NARF #### [facility] [address] [place] [address] Dr. David Cannon EO # 0.1 103/ul Normal 0.0-0.7 [facility] Comment on above: Performed By: #### A NARF #### [facility] [address] [place] [address] Dr. David Cannon Eosinophils/100 WBC (Bld) 1.4 % Normal 0.9-7.0 [facility] Comment on above: Performed By: #### A NARF #### [facility] [address] [place] [address] Dr. David Cannon Erythrocyte distribution width (RBC) [Ratio] 12.0 % Normal 11.0-15.0 [facility] Comment on above: Performed By: #### A NARF #### [facility] [address] [place] [address] Dr. David Cannon Hematocrit (Bld) [Volume fraction] 44.6 % Normal 36.0-48.0 [facility] Comment on above: Performed By: #### A NARF #### [facility] [address] [place] [address] Dr. David Cannon Hemoglobin (Bld) [Mass/Vol] 14.5 g/dL Normal 12.0-16.0 [facility] Comment on above: Performed By: #### A NARF #### [facility] [address] [place] [address] Dr. David Cannon IG # 0.01 10e3/ul Normal 0.00-0.03 [facility] Comment on above: Performed By: #### A NARF #### [facility] [address] [place] [address] Dr. David Cannon IG % 0.2 % Normal 0.0-0.5 The [facility] Comment on above: Performed By: #### A NARF #### [facility] [address] [place] [address] Dr. David Cannon LYMPH # 2.5 103/ul Normal 1.2-3.8 The [facility] Comment on above: Performed By: #### A NARF #### [facility] [address] [place] [address] Dr. David Cannon Lymphocytes/100 WBC (Bld) 42.6 % Normal 20.5-60.0 [facility] Comment on above: Performed By: #### A NARF #### [facility] [address] [place] [address] Dr. David Cannon MANUAL DIFF REQ NO Normal [facility] Comment on above: Performed By: #### A NARF #### [facility] [address] [place] [address] Dr. David Cannon MCH (RBC) [Entitic mass] 31.6 pg Normal 26.7-34.0 [facility] Comment on above: Performed By: #### A NARF #### [facility] [address] [place] [address] Dr. David Cannon MCHC (RBC) [Mass/Vol] 32.5 g/dL Normal 29.9-35.2 [facility] Comment on above: Performed By: #### A NARF #### [facility] [address] [place] [address] Dr. David Cannon MCV (RBC) [Entitic vol] 97.2 fL Normal 81.0-99.0 [facility] Comment on above: Performed By: #### A NARF #### [facility] [address] [place] [address] Dr. David Cannon MONO # 0.4 103/ul Normal 0.3-0.8 The [facility] Comment on above: Performed By: #### A NARF #### [facility] [address] [place] [address] Dr. David Cannon Monocytes/100 WBC (Bld) 5.9 % Normal 1.7-12.0 The [facility] Comment on above: Performed By: #### A NARF #### [facility] [address] [place] [address] Dr. David Cannon NEUT # 2.9 103/ul Normal 1.4-6.5 The [facility] Comment on above: Performed By: #### A NARF #### [facility] [address] [place], [place] [address] Dr. David Cannon Neutrophils/100 WBC (Bld) 49.4 % Normal 43.0-75.0 [facility] Comment on above: Performed By: #### A NARF #### [facility] [address] [place], [place] [address] Dr. David Cannon Platelet mean volume (Bld) [Entitic vol] 9.1 fL Critically low 9.5-13.5 [facility] Comment on above: Performed By: #### A NARF #### [facility] [address] [address] [address] David Cannon PLT 257 103/ul Normal 150-450 [facility] Comment on above: Performed By: #### A NARF #### [facility] [address] [address] [address] David Cannon RBC 4.59 106/ul Normal 4.20-5.40 [facility] Comment on above: Performed By: #### A NARF #### [facility] [address] [address] [address] David Cannon WBC 5.9 103/ul Normal 4.0-11.0 [facility] Comment on above: Performed By: #### A NARF #### [facility] [address] [id number] David Cannon D-DIMERon 01-06-2022 D-DIMER 0.67 mg/L FEU Critically high <=0.59 [facility] Comment on above: Performed By: #### D DIM ####[facility] [address] [place], [place] [address]ZrDr. David Cannon D-DIMER COMMENTS SEE BELOW Normal [facility] Comment on above: Result Comment: Incr eases [...] generalized hospitalization. Performed By: #### D DIM ####[facility] [address] [place], [place] [address]Dr. David Cannon PROF 14(COMP METB)on 01-06- 022 Albumin [Mass/Vol] 4.0 g/dL Normal 3.4-5.0 [facility] Comment on above: Performed By: #### C NILSA, ELAINE ####[facility] [address] [place], [place] [address]Dr. David Cannon Albumin/Globulin [Mass ratio] 1.2 {ratio} Normal [facility] Comment on above: Performed By: #### C NILSA, ELAINE ####[facility] [address] [place], [place] [address]Dr. David Cannon ALP [Catalytic activity/Vol] 78 U/L Normal 46-116 [facility] Comment on above: Performed By: #### C NILSA, ELAINE ####[facility] [address] [place], [place] [address]Dr. David Cannon ALT [Catalytic activity/Vol] 23 U/L Normal 14-59 [facility] Comment on above: Performed By: #### C NILSA, ELAINE ####[facility] [address] [place], [place] [address]Dr. David Cannon Anion gap [Moles/Vol] 10.8 mmol/L Normal [facility] Comment on above: Performed By: #### C NILSA, ELAINE ####[facility] [address] [place], [place] [address]Dr. David Cannon AST [Catalytic activity/Vol] 28 U/L Normal 15-37 [facility] Comment on above: Performed By: #### C NILSA, ELAINE ####[facility] [address] [place], [place] [address]Dr. David Cannon Bilirubin [Mass/Vol] 0.3 mg/dL Normal 0.2-1.0 [facility] Comment on above: Performed By: #### C NILSA, ELAINE ####[facility] [address] [address]Dr. David Cannon Calcium [Mass/Vol] 9.1 mg/dL Normal 8.5-10.1 [facility] Comment on above: Performed By: #### C NILSA, ELAINE ####[facility] [address] [place], [place] [address]Dr. David Cannon Chloride [Moles/Vol] 102 mmol/L Normal 98-107 The [facility] Comment on above: Performed By: #### C MP, ELAINE ####[facility] [address] [place], [place] [address]Dr. David Cannon CO2 [Moles/Vol] 30.3 mmol/L Normal 21.0-32.0 The [facility] Comment on above: Performed By: #### C NILSA, ELAINE ####[facility] [address] [place], [place] [address]Dr. David Cannon Creatinine [Mass/Vol] 0.46 mg/dL Critically low 0.55-1.02 [facility] Comment on above: Performed By: #### C NILSA, ELAINE ####[facility] [address] [place], [place] [address]Dr. David Cannon EGFR-AF ESTONIAN >60 Normal >=60 [facility] Comment on above: Performed By: #### C NILSA, ELAINE ####[facility] [address] [place], [place] [address]Dr. David Cannon EGFR-NON AF ESTONIAN >60 Normal >=60 [facility] Comment on above: Performed By: #### C NILSA, ELAINE ####[facility] [address] [place], [place] [address]Dr. David Cannon Globulin (S) [Mass/Vol] 3.4 g/dL Normal [facility] Comment on above: Performed By: #### C NILSA, ELAINE ####[facility] [address] [place], [place] [address]Dr. David Cannon Glucose [Mass/Vol] 111 mg/dL Critically high 74-106 [facility] Comment on above: Performed By: #### C NILSA, ELAINE ####[facility] [address] [place], [place] [address]Dr. Janellbraeedn Cannon Potassium [Moles/Vol] 4.1 mmol/L Normal 3.5-5.1 The [facility] Comment on above: Performed By: #### C MP, ELAINE ####[facility] [address] [place], [place] [address]Dr. Janellbraeden Cannon Protein [Mass/Vol] 7.4 g/dL Normal 6.4-8.2 The [facility] Comment on above: Performed By: #### C MP, ELAINE ####[facility] [address] [place], [place] [address]Dr. David Cannon Sodium [Moles/Vol] 139 mmol/L Normal 136-145 The [facility] Comment on above: Performed By: #### C MP, ELAINE ####[facility] [address] [place], [place] [address]Dr. David Cannon Urea nitrogen [Mass/Vol] 14.0 mg/dL Normal 7.0-18.0 The [facility] Comment on above: Performed By: #### C MP, ELAINE ####[facility] [address] [place], [place] [address]Dr. David Cannon Urea nitrogen/Creatinine [Mass ratio] 30.4 mg/mg Normal [facility] Comment on above: Performed By: #### C MP, ELAINE ####[facility] [address] [place], [place] [address]Dr. David Cannon CBC AUTO DIFFon 11-28-2021 BASO # 0.0 103/ul Normal 0.0-0.1 The [facility] Comment on above: Performed By: #### C BC ####[facility] [address] [place], [place] [address]Dr. David Cannon Basophils/100 WBC (Bld) 0.8 % Normal 0.2-2.0 The [facility] Comment on above: Performed By: #### C BC ####[facility] [address] [place], [place] [address]Dr. David Cannon EO # 0.1 103/ul Normal 0.0-0.7 The [facility] Comment on above: Performed By: #### C BC ####[facility] [address] [address]Dr. David Cannon Eosinophils/100 WBC (Bld) 3.0 % Normal 0.9-7.0 The [facility] Comment on above: Performed By: #### C BC ####[facility] [address] [place], [place] [address]Dr. David Cannon Erythrocyte distribution width (RBC) [Ratio] 11.9 % Normal 11.0-15.0 The [facility] Comment on above: Performed By: #### C BC ####[facility] [address] [place], [place] [address]Dr. David Cannon Hematocrit (Bld) [Volume fraction] 42.4 % Normal 36.0-48.0 [facility] Comment on above: Performed By: #### C BC ####[facility] [address] [place], [place] [address]Dr. David Cannon Hemoglobin (Bld) [Mass/Vol] 13.3 g/dL Normal 12.0-16.0 The [facility] Comment on above: Performed By: #### C BC ####[facility] [address] [place], [place] [address]Dr. David Cannon IG # 0.01 10e3/ul Normal 0.00-0.03 [facility] Comment on above: Performed By: #### C BC ####[facility] [address] [place], [place] [address]Dr. David Cannon IG % 0.3 % Normal 0.0-0.5 The [facility] Comment on above: Performed By: #### C BC ####[facility] [address] [place], [place] [address]Dr. David Cannon LYMPH # 1.6 103/ul Normal 1.2-3.8 The [facility] Comment on above: Performed By: #### C BC ####[facility] [address] [place], [place] [address]Dr. David Cannon Lymphocytes/100 WBC (Bld) 39.6 % Normal 20.5-60.0 The [facility] Comment on above: Performed By: #### C BC ####[facility] [address] [place] [address]Dr. Janellbraeden Cannon MANUAL DIFF REQ NO Normal [facility] Comment on above: Performed By: #### C BC ####[facility] [address] [place] [address]Dr. David Cannon MCH (RBC) [Entitic mass] 31.6 pg Normal 26.7-34.0 [facility] Comment on above: Performed By: #### C BC ####[facility] [address] [place] [address]Dr. Janellbraeden Cannon MCHC (RBC) [Mass/Vol] 31.4 g/dL Normal 29.9-35.2 The [facility] Comment on above: Performed By: #### C BC ####[facility] [address] [address]Dr. David Cannon MCV (RBC) [Entitic vol] 100.7 fL Critically high 81.0-99.0 [facility] Comment on above: Performed By: #### C BC ####[facility] [address] [place], [place] [address]Dr. David Cannon MONO # 0.4 103/ul Normal 0.3-0.8 The [facility] Comment on above: Performed By: #### C BC ####[facility] [address] [place], [place] [address]Dr. David Cannon Monocytes/100 WBC (Bld) 11.2 % Normal 1.7-12.0 The [facility] Comment on above: Performed By: #### C BC ####[facility] [address] [place] [address]Dr. David Cannon NEUT # 1.8 103/ul Normal 1.4-6.5 The [facility] Comment on above: Performed By: #### C BC ####[facility] [address] [place], [place] [address]Dr. David Cannon Neutrophils/100 WBC (Bld) 45.1 % Normal 43.0-75.0 The [facility] Comment on above: Performed By: #### C BC ####[facility] [address] [place], [place] [address]Ho. Janellbraeden Davis Platelet mean volume (Bld) [Entitic vol] 9.1 fL Critically low 9.5-13.5 [facility] Comment on above: Performed By: #### C BC ####[facility] [address] [place], [place] [address]Ck. David Cannon PLT 177 103/ul Normal 150-450 [facility] Comment on above: Performed By: #### C BC ####[facility] [address] [place], [place] [address]Yx. Janellbraeden Davis RBC 4.21 106/ul Normal 4.20-5.40 The [facility] Comment on above: Performed By: #### C BC ####[facility] [address] [place] [address]Dr. David Cannon WBC 3.9 103/ul Critically low 4.0-11.0 [facility] Comment on above: Performed By: #### C BC ####[facility] [address] [place], [place] [address]RiDr. David Cannon CRPon 11-28-2021 CRP [Mass/Vol] mg/L Normal <=1.0 [facility] Comment on above: Performed By: #### A NARF #### [facility] [address] [place], [place] [address] Dr. David Cannon XR LSPINE 2_3 VIEWSon 2021 XR LSPINE 2_3 VIEWS EXAMINATION: XR LSPI NE 2_3 VIEWS, XR SACRUM_COCCYX HISTORY: History of fall COMPARISON: 10/16/2021 CT exam FINDINGS: BONES: Rotatory levocurvature centered at L3. Kyphoplasty at L2. 40% anterior superior wedge compression fracture of T12. Left superior wedge compression fracture of L5. Minimal degenerative spondylosis. Aqgw-dn-qqxgbsqe facet osteoarthropathy. DISC SPACES: Multilevel disc space narrowing PARASPINOUS: Negative. No paraspinous abnormality is seen. OTHER: Negative. IMPRESSION: Grossly stable from CT exam performed 4 days ago Electronically authenticated by: JANNA LAWTON Date: 2021-10-20 12:06 Normal [facility] CULTURE URINEon 10-18-2021 CULTURE URINE Isolate [...] F Trimethoprim/Sulfameth oxazole <=20 S F Normal [facility] Comment on above: Performed By: #### U RCX ####[facility] [address] [place] [address]Dr. David Cannon AMYLASEon 10-16-2021 Amylase [Catalytic activity/Vol] 35 U/L Normal 25-115 [facility] Comment on above: Performed By: #### B MP, TSH #### [facility] [address] [address] [address] David Cannon CBC AUTO DIFFon 10-16-2021 BASO # 0.0 103/ul Normal 0.0-0.1 [facility] Comment on above: Performed By: #### C BC ####[facility] [address] [address]Dr. David Cannon Basophils/100 WBC (Bld) 0.7 % Normal 0.2-2.0 [facility] Comment on above: Performed By: #### C BC ####[facility] [address] [place] [address]Dr. David Cannon EO # 0.1 103/ul Normal 0.0-0.7 [facility] Comment on above: Performed By: #### C BC ####[facility] [address] [place] [address]Dr. David Cannon Eosinophils/100 WBC (Bld) 1.0 % Normal 0.9-7.0 [facility] Comment on above: Performed By: #### C BC ####[facility] [address] [place] [address]Dr. David Cannon Erythrocyte distribution width (RBC) [Ratio] 11.7 % Normal 11.0-15.0 [facility] Comment on above: Performed By: #### C BC ####[facility] [address] [place], [place] [address]Dr. David Cannon Hematocrit (Bld) [Volume fraction] 46.9 % Normal 36.0-48.0 [facility] Comment on above: Performed By: #### C BC ####[facility] [address] [place], [place] [address]Dr. David Davis Hemoglobin (Bld) [Mass/Vol] 15.2 g/dL Normal 12.0-16.0 The [facility] Comment on above: Performed By: #### C BC ####[facility] [address] [place], [place] [address]Dr. David Canonn IG # 0.01 10e3/ul Normal 0.00-0.03 [facility] Comment on above: Performed By: #### C BC ####[facility] [address] [place], [place] [address]Dr. David Cannon IG % 0.2 % Normal 0.0-0.5 [facility] Comment on above: Performed By: #### C BC ####[facility] [address] [place], [place] [address]Dr. David Cannon LYMPH # 1.7 103/ul Normal 1.2-3.8 [facility] Comment on above: Performed By: #### C BC ####[facility] W[address]ns[address] [place], [place] [address]Dr. David Cannon Lymphocytes/100 WBC (Bld) 29.0 % Normal 20.5-60.0 The [facility] Comment on above: Performed By: #### C BC ####[facility] [address] [place], [place] [address]Dr. David Cannon MANUAL DIFF REQ NO Normal The [facility] Comment on above: Performed By: #### C BC ####[facility] [address] [place] [address]Dr. David Cannon MCH (RBC) [Entitic mass] 32.0 pg Normal 26.7-34.0 [facility] Comment on above: Performed By: #### C BC ####[facility] [address] [place] [address]Dr. David Cannon MCHC (RBC) [Mass/Vol] 32.4 g/dL Normal 29.9-35.2 [facility] Comment on above: Performed By: #### C BC ####[facility] [address] [address]DrGerry Cannon MCV (RBC) [Entitic vol] 98.7 fL Normal 81.0-99.0 [facility] Comment on above: Performed By: #### C BC ####[facility] [address] [place], [place] [address]DrGerry Cannon MONO # 0.4 103/ul Normal 0.3-0.8 The [facility] Comment on above: Performed By: #### C BC ####[facility] [address] [place], [place] [address]DrGerry Cannon Monocytes/100 WBC (Bld) 6.6 % Normal 1.7-12.0 The [facility] Comment on above: Performed By: #### C BC ####[facility] [address] [place], [place] [address]DrGerry Cannon NEUT # 3.7 103/ul Normal 1.4-6.5 The [facility] Comment on above: Performed By: #### C BC ####[facility] Z[address]org[address] [place], [place] [address]DrGerry Cannon Neutrophils/100 WBC (Bld) 62.5 % Normal 43.0-75.0 The [facility] Comment on above: Performed By: #### C BC ####[facility] [address] [place], [place] [address]DrGerry Cannon Platelet mean volume (Bld) [Entitic vol] 9.5 fL Normal 9.5-13.5 The [facility] Comment on above: Performed By: #### C BC ####[facility] [address] [place], [place] [address]Kh. David Cannon PLT 216 103/ul Normal 150-450 The [facility] Comment on above: Performed By: #### C BC ####[facility] [address] [place], [place] [address]Av. David Cannon RBC 4.75 106/ul Normal 4.20-5.40 The [facility] Comment on above: Performed By: #### C BC ####[facility] [address] [place], [place] [address]We. David Cannon WBC 5.9 103/ul Normal 4.0-11.0 The [facility] Comment on above: Performed By: #### C BC ####[facility] [address] [place], [place] [address] David Cannon [address] ABD/PELV W CONon 10-17-19 [...] JANNA DHALIWAL Date: 2021-10-16 15:43 Normal The [facility] ER URINE PROFILEon 2 Bilirubin Ql (U) Negative Normal NEGATIVE The [facility] Comment on above: Performed By: #### U MICRO, ERUR #### [facility] [address] [place] [address] Dr. David Cannon Clarity (U) SL CLOUDY Abnormal CLEAR The [facility] Comment on above: Performed By: #### U MICRO, ERUR #### [facility] [address] [address] [address] David Cannon Color (U) YELLOW Normal YELLOW The [facility] Comment on above: Performed By: #### U MICRO, ERUR #### [facility] [address] [address] [address] David Cannon ERUAHD A micrscopic examination will be performed if indicated. Normal The [facility] Comment on above: Performed By: #### U MICRO, ERUR #### [facility] [address] [address] [address] David Cannon Glucose Ql (U) Negative Normal NEGATIVE The [facility] Comment on above: Performed By: #### U MICRO, ERUR #### [facility] [address] [address] [address] David Cannon Hemoglobin Ql (U) Negative Normal NEGATIVE The [facility] Comment on above: Performed By: #### U MICRO, ERUR #### [facility] [address] [place] [address] Dr. David Cannon Ketones Ql (U) TRACE Abnormal NEGATIVE The [facility] Comment on above: Performed By: #### U MICRO, ERUR #### [facility] [address] [place] [address] Dr. David Cannon LEUKOCYTES SMALL Abnormal NEGATIVE The [facility] Comment on above: Performed By: #### U MICRO, ERUR #### [facility] [address] [place] [address] Dr. David Cannon Nitrite Ql (U) Positive Abnormal NEGATIVE The [facility] Comment on above: Performed By: #### U MICRO, ERUR #### [facility] [address] [place] [address] Dr. David Cannon pH (U) 5.5 [pH] Normal 5-9 [facility] Comment on above: Performed By: #### U MICRO, ERUR #### [facility] [address] [place] [address] Dr. David Cannon SPEC GRAVITY >=1.030 Abnormal 1.005-<=1.02 5 [facility] Comment on above: Performed By: #### U MICRO, ERUR #### [facility] [address] [place] [address] Dr. David Cannon UA PROTEIN Negative Normal NEGATIVE/ TRACE The [facility] Comment on above: Performed By: #### U MICRO, ERUR #### [facility] [address] [place] [address] Dr. David Cannon UR MICRO IND INDICATED Normal The [facility] Comment on above: Performed By: #### U MICRO, ERUR #### [facility] [address] [place] [address] Dr. David Cannon Urobilinogen Qn (U) 0.2 {Skip'U}/dL Normal 0.2 - 1. 0 [facility] Comment on above: Performed By: #### U MICRO, ERUR #### [facility] [address] [place] [address] Dr. David Cannon LIPASEon 08-07-2022 Lipase [Catalytic activity/Vol] 93.0 U/L Normal 73.0-393.0 [facility] Comment on above: Performed By: #### B MP, TSH #### [facility] [address] [place] [address] Dr. David Cannon PROF 14(COMP METB)on 022 Albumin [Mass/Vol] 4.1 g/dL Normal 3.4-5.0 [facility] Comment on above: Performed By: #### B MP, TSH #### [facility] [address] [place] [address] Dr. David Cannon Albumin/Globulin [Mass ratio] 1.1 {ratio} Normal [facility] Comment on above: Performed By: #### B NILSA, TSH #### [facility] [address] [place] [address] Dr. David Cannon ALP [Catalytic activity/Vol] 88 U/L Normal 46-116 [facility] Comment on above: Performed By: #### B NILSA, TSH #### [facility] [address] [place] [address] Dr. David Cannon ALT [Catalytic activity/Vol] 17 U/L Normal 14-59 [facility] Comment on above: Performed By: #### B NILSA, TSH #### [facility] [address] [place] [address] Dr. David Cannon Anion gap [Moles/Vol] 12.4 mmol/L Normal [facility] Comment on above: Performed By: #### B NILSA, TSH #### [facility] [address] [place] [address] Dr. David Cannon AST [Catalytic activity/Vol] 15 U/L Normal 15-37 [facility] Comment on above: Performed By: #### B MP, TSH #### [facility] [address] [place] [address] Dr. Daivd Cannon Bilirubin [Mass/Vol] 0.2 mg/dL Normal 0.2-1.0 [facility] Comment on above: Performed By: #### B MP, TSH #### [facility] [address] [address] [address] David Cannon Calcium [Mass/Vol] 9.8 mg/dL Normal 8.5-10.1 [facility] Comment on above: Performed By: #### B MP, TSH #### [facility] [address] [address] [address] David Cannon Chloride [Moles/Vol] 103 mmol/L Normal 98-107 [facility] Comment on above: Performed By: #### B MP, TSH #### [facility] [address] [place] [address] Dr. David Cannon CO2 [Moles/Vol] 30.6 mmol/L Normal 21.0-32.0 [facility] Comment on above: Performed By: #### B MP, TSH #### [facility] [address] [place] [address] Dr. David Cannon Creatinine [Mass/Vol] 0.85 mg/dL Normal 0.55-1.02 [facility] Comment on above: Performed By: #### B MP, TSH #### [facility] [address] [place] [address] Dr. David Cannon EGFR-AF ESTONIAN >60 Normal >=60 [facility] Comment on above: Performed By: #### B MP, TSH #### [facility] [address] [place] [address] Dr. David Cannon EGFR-NON AF ESTONIAN >60 Normal >=60 [facility] Comment on above: Performed By: #### B MP, TSH #### [facility] [address] [place] [address] Dr. David Cannon Globulin (S) [Mass/Vol] 3.8 g/dL Normal [facility] Comment on above: Performed By: #### B MP, TSH #### [facility] [address] [place] [address] Dr. David Cannon Glucose [Mass/Vol] 119 mg/dL Critically high 74-106 T [facility] Comment on above: Performed By: #### B MP, TSH #### [facility] [address] [place] [address] Dr. David Cannon Potassium [Moles/Vol] 4.0 mmol/L Normal 3.5-5.1 The [facility] Comment on above: Performed By: #### B MP, TSH #### [facility] [address] [place] [address] Dr. David Cannon Protein [Mass/Vol] 7.9 g/dL Normal 6.4-8.2 The [facility] Comment on above: Performed By: #### B MP, TSH #### [facility] [address] [place] [address] Dr. David Cannon Sodium [Moles/Vol] 142 mmol/L Normal 136-145 [facility] Comment on above: Performed By: #### B NILSA, TSH #### [facility] [address] [place] [address] Dr. David Cannon Urea nitrogen [Mass/Vol] 12.0 mg/dL Normal 7.0-18.0 [facility] Comment on above: Performed By: #### B NILSA, TSH #### [facility] [address] [place] [address] Dr. David Cannon Urea nitrogen/Creatinine [Mass ratio] 14.1 mg/mg Normal The [facility] Comment on above: Performed By: #### B NILSA, TSH #### [facility] [address] [place] [address] Dr. David Cannon URINE MICROSCOPIC ONLYon BACTERIA LARGE Abnormal NONE SEEN The [facility] Comment on above: Performed By: #### U MICRO, ERUR #### [facility] [address] [place] [address] Dr. David Cannon Bacteria identified Cx Nom (U) INDICATED Normal The [facility] Comment on above: Performed By: #### U MICRO, ERUR #### [facility] [address] [place] [address] Dr. David Cannon CA OX CRYSTALS FEW Normal The [facility] Comment on above: Performed By: #### U MICRO, ERUR #### [facility] [address] [place] [address] Dr. David Cannon CAST SEEN Abnormal NONE SEEN The [facility] Comment on above: Performed By: #### U MICRO, ERUR #### [facility] [address] [address] [address] David Cannon Crystals LM Nom (Urine sed) SEEN Abnormal NONE SEEN The [facility] Comment on above: Performed By: #### U MICRO, ERUR #### [facility] [address] [address] [address] David Cannon Epithelial cells LM Ql (Urine sed) RARE Normal NONE SEEN /RARE The [facility] Comment on above: Performed By: #### U MICRO, ERUR #### [facility] [address] [place] [address] Dr. David Cannon HYALINE CAST FEW Normal The [facility] Comment on above: Performed By: #### U MICRO, ERUR #### [facility] [address] [place] [address] Dr. David Cannon MUCOUS TRACE Abnormal NONE SEEN The [facility] Comment on above: Performed By: #### U MICRO, ERUR #### [facility] [address] [place] [address] Dr. David Cannon RBC 2-5 Abnormal 0-2 The [facility] Comment on above: Performed By: #### U MICRO, ERUR #### [facility] [address] [place] [address] Dr. David Cannon WBC 75-100 Abnormal NONE SEEN The [facility] Comment on above: Performed By: #### U MICRO, ERUR #### [facility] [address] [place] [address] Dr. David Cannon XR ANKLE RT MIN [...] STEPHANIE DODD Date: 2021-10-05 10:56 Normal The [facility] MRI TSPINE WO W CONon 2021 [...] by: CELIA CORMIER Date: 2021-09-01 07:29 Normal [facility] CREATININEon 08-31-2021 Creatinine [Mass/Vol] 0.82 mg/dL Normal 0.55-1.02 [facility] Comment on above: Performed By: #### C LUCIA #### [facility] [address] [place] [address] Dr. David Cannon EGFR-AF ESTONIAN >60 Normal >=60 [facility] Comment on above: Performed By: #### C LUCIA #### [facility] [address] [address] [address] David Cannon EGFR-NON AF ESTONIAN >60 Normal >=60 [facility] Comment on above: Performed By: #### C ULCIA #### [facility] [address] [place] [address] Dr. David Cannon COVID Quick Testingon 2021 Result Negative [facility] Other Quick Fluon 04-13-2021 FLUAV Ab CF (S) [Titer] Negative [facility] Other FLUBV Ab CF (S) [Titer] Negative [facility] Other Vital Signs Date Time Vital Sign Value Performing Clinician Facility 10-01-2024 13:19-0400 Body height 157.48 cm Nettie Iqbal MD Work Phone: [facility] 10-01-2024 13:19-0400 Body mass index (BMI) [Ratio] 18.6 kg/m2 Nettie Iqbal MD Work Phone: [facility] 10-01-2024 13:19-0400 Body weight 46.26 kg Nettie Iqbal MD Work Phone: [facility] 10-01-2024 13:19-0400 Diastolic blood pressure 81 mm[Hg] Nettie Iqbal MD Work Phone: [facility] 10-01-2024 13:19-0400 Heart rate 66 /min Nettie Iqbal MD Work Phone: [facility] 10-01-2024 13:19-0400 Respiratory rate 18 /min Nettie Iqbal MD Work Phone: [facility] 10-01-2024 13:19-0400 Systolic blood pressure 142 mm[Hg] Nettie Iqbal MD Work Phone: [facility] 09-23-2024 13:04-0400 Body height 157.48 cm Nettie Iqbal MD Work Phone: [facility] 09-23-2024 13:04-0400 Body mass index (BMI) [Ratio] 18.8 kg/m2 Nettie Iqbal MD Work Phone: [facility] 09-23-2024 13:04-0400 Body weight 46.89 kg Nettie Iqbal MD Work Phone: [facility] 09-23-2024 13:04-0400 Diastolic blood pressure 71 mm[Hg] Nettie Iqbal MD Work Phone: [facility] 09-23-2024 13:04-0400 Heart rate 86 /min Nettie Iqbal MD Work Phone: [facility] 09-23-2024 13:04-0400 SaO2% (BldA) [Mass fraction] 92 % Nettie Iqbal MD Work Phone: [facility] 09-23-2024 13:04-0400 Systolic blood pressure 110 mm[Hg] Nettie Iqbal MD Work Phone: [facility] 06-23-2024 13:09-0400 Body height 157.48 cm [facility] 06-23-2024 13:09-0400 Body mass index (BMI) [Ratio] 19.7 kg/m2 [facility] 06-23-2024 13:09-0400 Body weight 48.98 kg [facility] 06-23-2024 13:09-0400 Diastolic blood pressure 81 mm[Hg] [facility] 06-23-2024 13:09-0400 Heart rate 85 /min [facility] 06-23-2024 13:09-0400 Systolic blood pressure 124 mm[Hg] [facility] 03-28-2024 13:03-0500 Body height 157.48 cm Nettie Iqbal MD Work Phone: [facility] 03-28-2024 13:03-0500 Body mass index (BMI) [Ratio] 18.6 kg/m2 Nettie Iqbal MD Work Phone: [facility] 03-28-2024 13:03-0500 Body weight 46.37 kg Nettie Iqbal MD Work Phone: [facility] 03-28-2024 13:03-0500 Diastolic blood pressure 71 mm[Hg] Nettie Iqbal MD Work Phone: [facility] 03-28-2024 13:03-0500 Heart rate 74 /min Nettie Iqbal MD Work Phone: [facility] 03-28-2024 13:03-0500 SaO2% (BldA) [Mass fraction] 91 % Nettie Iqbal MD Work Phone: [facility] 03-28-2024 13:03-0500 Systolic blood pressure 115 mm[Hg] Nettie Iqbal MD Work Phone: [facility] 03-21-2024 11:30-0500 Diastolic blood pressure 75 mm[Hg] Everett Dunlap MD Work Phone: [facility] 03-21-2024 11:30-0500 Heart rate 62 /min Everett Dunlap MD Work Phone: [facility] 03-21-2024 11:30-0500 Respiratory rate 18 /min Everett Dunlap MD Work Phone: [facility] 03-21-2024 11:30-0500 SaO2% (BldA) [Mass fraction] 96 % Everett Dunlap MD Work Phone: [facility] 03-21-2024 11:30-0500 Systolic blood pressure 122 mm[Hg] Everett Dunlap MD Work Phone: [facility] 03-21-2024 10:32-0500 Body temperature 97.2 [degF] Everett Dunlap MD Work Phone: [facility] 01-16-2024 16:03-0500 Body height 157.48 cm MD Nettie Iqbal Work Phone: [facility] 01-16-2024 16:03-0500 Body mass index (BMI) [Ratio] 18.6 kg/m2 MD Nettie Iqbal Work Phone: [facility] 01-16-2024 16:03-0500 Body temperature 99.3 [degF] MD Nettie Iqbal Work Phone: [facility] 01-16-2024 16:03-0500 Body weight 46.35 kg MD Nettie Iqbal Work Phone: [facility] 01-16-2024 16:03-0500 Diastolic blood pressure 80 mm[Hg] MD Nettie Iqbal Work Phone: [facility] 01-16-2024 16:03-0500 Heart rate 77 /min MD Nettie Iqbal Work Phone: [facility] 01-16-2024 16:03-0500 Respiratory rate 16 /min MD Nettie Iqbal Work Phone: [facility] 01-16-2024 16:03-0500 SaO2% (BldA) [Mass fraction] 96 % MD Nettie Iqbal Work Phone: [facility] 01-16-2024 16:03-0500 Systolic blood pressure 127 mm[Hg] MD Nettie Iqbal Work Phone: [facility] 12-25-2023 13:30-0400 Body height 157.48 cm MD Nettie Iqbal Work Phone: [facility] 12-25-2023 13:30-0400 Body mass index (BMI) [Ratio] 19.8 kg/m2 MD Nettie Iqbal Work Phone: [facility] 12-25-2023 13:30-0400 Body weight 49.1 kg MD Nettie Iqbal Work Phone: [facility] 12-25-2023 13:30-0400 Diastolic blood pressure 70 mm[Hg] MD Nettie Iqbal Work Phone: [facility] 12-25-2023 13:30-0400 Heart rate 71 /min MD Nettie Iqbal Work Phone: [facility] 12-25-2023 13:30-0400 Respiratory rate 16 /min MD Nettie Iqbal Work Phone: [facility] 12-25-2023 13:30-0400 SaO2% (BldA) [Mass fraction] 95 % MD Nettie Iqbal Work Phone: [facility] 12-25-2023 13:30-0400 Systolic blood pressure 124 mm[Hg] MD Nettie Iqbal Work Phone: [facility] 12-19-2023 11:14-0400 Body weight 48 kg Everett Dunlap MD Work Phone: [facility] 12-19-2023 11:14-0400 Diastolic blood pressure 60 mm[Hg] Everett Dunlap MD Work Phone: [facility] 12-19-2023 11:14-0400 Heart rate 75 /min Everett Dunlap MD Work Phone: [facility] 12-19-2023 11:14-0400 Systolic blood pressure 116 mm[Hg] Everett Dunlap MD Work Phone: [facility] 11-26-2023 09:18-0400 Body height 157.48 cm MD Nettie Iqbal Work Phone: [facility] 11-26-2023 09:18-0400 Body mass index (BMI) [Ratio] 18.3 kg/m2 MD Nettie Iqbal Work Phone: [facility] 11-26-2023 09:18-0400 Body weight 45.35 kg MD Nettie Iqbal Work Phone: [facility] 11-26-2023 09:18-0400 Diastolic blood pressure 72 mm[Hg] MD Nettie Iqbal Work Phone: [facility] 11-26-2023 09:18-0400 Heart rate 80 /min MD Nettie Iqbal Work Phone: [facility] 11-26-2023 09:18-0400 Systolic blood pressure 105 mm[Hg] MD Nettie Iqbal Work Phone: [facility] 09-24-2023 13:09-0400 Body height 157.48 cm [facility] 09-24-2023 13:09-0400 Body mass index (BMI) [Ratio] 18.3 kg/m2 [facility] 09-24-2023 13:09-0400 Body weight 45.47 kg [facility] 09-24-2023 13:09-0400 Diastolic blood pressure 82 mm[Hg] [facility] 09-24-2023 13:09-0400 Heart rate 73 /min [facility] 09-24-2023 13:09-0400 Systolic blood pressure 120 mm[Hg] [facility] 08-11-2023 11:04-0400 Body height 157.48 cm MD Nettie Iqbal Work Phone: [facility] 08-11-2023 11:04-0400 Body mass index (BMI) [Ratio] 19.1 kg/m2 MD Nettie Iqbal Work Phone: [facility] 08-11-2023 11:04-0400 Body temperature 97.4 [degF] MD Nettie Iqbal Work Phone: [facility] 08-11-2023 11:04-0400 Body weight 47.28 kg MD Nettie Iqbal Work Phone: [facility] 08-11-2023 11:04-0400 Heart rate 67 /min MD Nettie Iqbal Work Phone: [facility] 08-11-2023 11:04-0400 Respiratory rate 18 /min MD Nettie Iqbal Work Phone: [facility] 08-11-2023 11:04-0400 SaO2% (BldA) [Mass fraction] 91 % MD Nettie Iqbal Work Phone: [facility] 06-22-2023 13:02-0400 Body height 157.48 cm [facility] 06-22-2023 13:02-0400 Body mass index (BMI) [Ratio] 19.5 kg/m2 [facility] 06-22-2023 13:02-0400 Body weight 48.59 kg [facility] 06-22-2023 13:02-0400 Diastolic blood pressure 79 mm[Hg] [facility] 06-22-2023 13:02-0400 Heart rate 69 /min [facility] 06-22-2023 13:02-0400 Systolic blood pressure 143 mm[Hg] [facility] 06-15-2023 15:16-0400 Diastolic blood pressure 67 mm[Hg] [place] [facility] 06-15-2023 15:16-0400 Heart rate 59 /min [place] [facility] 06-15-2023 15:16-0400 Respiratory rate 12 /min [place] [facility] 06-15-2023 15:16-0400 SaO2% (BldA) [Mass fraction] 95 % [place] [address] [facility] [employer] [facility] [employer] 06-15-2023 15:16-0400 Systolic blood pressure 152 mm[Hg] [place] 1 [facility] [employer] 06-15-2023 11:59-0400 Body temperature 98.29 [degF] [place] 1 [facility] 04-11-2023 14:20-0500 Body height 157.48 cm [employer] Other [facility] 04-11-2023 14:20-0500 Body mass index (BMI) [Ratio] 19.75 kg/m2 [employer] Other [employer] Other 04-11-2023 14:20-0500 Body weight 48.99 kg [employer] Other [employer] Other 04-11-2023 14:20-0500 Body weight 48.98 kg [facility] 02-27-2023 11:00-0500 Body height 157.48 cm [employer] Other [employer] Other 02-27-2023 11:00-0500 Body mass index (BMI) [Ratio] 19.75 kg/m2 [employer] Other [employer] Other 02-27-2023 11:00-0500 Body weight 48.99 kg [employer] Other [employer] Other 10-24-2022 13:00-0400 Body height 157.48 cm Nettie Iqbal Other [employer] Other 10-24-2022 13:00-0400 Body mass index (BMI) [Ratio] 21.21 kg/m2 Nettie Iqbal Other [employer] Other 10-24-2022 13:00-0400 Body weight 52.62 kg Nettie Iqbal Other [employer] Other 10-24-2022 13:00-0400 Diastolic blood pressure 82 mm[Hg] Nettie Iqbal Other [employer] Other 10-24-2022 13:00-0400 Systolic blood pressure 129 mm[Hg] Nettie Iqbal Other [employer] Other 09-07-2022 14:15-0400 Body height 157.48 cm Kiran Barksdale Other [employer] Other 09-07-2022 14:15-0400 Body mass index (BMI) [Ratio] 20.48 kg/m2 Kiran Barksdale Other [employer] Other 09-07-2022 14:15-0400 Body weight 50.8 kg Kiran Shamir Other [employer] Other 09-07-2022 14:15-0400 Diastolic blood pressure 80 mm[Hg] Kiran Barksdale Other [employer] Other 09-07-2022 14:15-0400 Systolic blood pressure 137 mm[Hg] Kiran Barksdale Other [employer] Other 08-29-2022 14:00-0400 Body height 157.48 cm Nettie Iqbal Other [employer] Other 08-29-2022 14:00-0400 Body mass index (BMI) [Ratio] 20.3 kg/m2 Nettie Iqbal Other [employer] Other 08-29-2022 14:00-0400 Body weight 50.35 kg Nettie Iqbal Other [employer] Other 08-29-2022 14:00-0400 Diastolic blood pressure 85 mm[Hg] Nettie Iqbal Other [employer] Other 08-29-2022 14:00-0400 Systolic blood pressure 144 mm[Hg] Nettie Farida Other [employer] Other 08-25-2022 16:50-0400 Body height 157.48 cm Sandra Flores Other [employer] Other 08-25-2022 16:50-0400 Body mass index (BMI) [Ratio] 20.59 kg/m2 Sandra Flores Other [employer] Other 08-25-2022 16:50-0400 Body temperature 96.6 [degF] Sandra Flores Other [employer] Other 08-25-2022 16:50-0400 Body weight 51.08 kg Sandra Flores Other [employer] Other 08-25-2022 16:50-0400 Diastolic blood pressure 71 mm[Hg] Sandra Flores Other [employer] Other 08-25-2022 16:50-0400 Respiratory rate 20 /min Sandra Flores Other [employer] Other 08-25-2022 16:50-0400 SaO2% (BldA) [Mass fraction] 94 % Sandra Flores Other [employer] Other 08-25-2022 16:50-0400 Systolic blood pressure 106 mm[Hg] Sandra Flores Other [employer] Other 08-03-2022 14:30-0400 Body height 157.48 cm Nettie Iqbal Other [employer] Other 08-03-2022 14:30-0400 Body mass index (BMI) [Ratio] 21.21 kg/m2 Nettie Iqbal Other [employer] Other 08-03-2022 14:30-0400 Body weight 52.62 kg Nettie Iqbal Other [employer] Other 08-03-2022 14:30-0400 Diastolic blood pressure 93 mm[Hg] Nettie Iqbal Other [employer] Other 08-03-2022 14:30-0400 Systolic blood pressure 143 mm[Hg] Nettie Iqbal Other [employer] Other 06-20-2022 16:20-0400 Body height 157.48 cm Vanessa Sanford Other [employer] Other 06-20-2022 16:20-0400 Body mass index (BMI) [Ratio] 21.95 kg/m2 Vanessa Sanford Other [employer] Other 06-20-2022 16:20-0400 Body temperature 98.9 [degF] Vanessa Sanford Other [employer] Other 06-20-2022 16:20-0400 Body weight 54.43 kg Vanessa Sanford Other [employer] Other 06-20-2022 16:20-0400 Diastolic blood pressure 81 mm[Hg] Vanessa Sanford Other [employer] Other 06-20-2022 16:20-0400 Respiratory rate 18 /min Vanessa Sanford Other [employer] Other 06-20-2022 16:20-0400 SaO2% (BldA) [Mass fraction] 99 % Vanessa Sanford Other [employer] Other 06-20-2022 16:20-0400 Systolic blood pressure 150 mm[Hg] Vanessa Sanford Other [employer] Other 06-16-2022 12:30-0400 Body height 157.48 cm Phani Ball Other [employer] Other 06-16-2022 12:30-0400 Body mass index (BMI) [Ratio] 22.2 kg/m2 Phani Ball Other [employer] Other 06-16-2022 12:30-0400 Body weight 55.07 kg Phani Ball Other [employer] Other 06-16-2022 12:30-0400 Diastolic blood pressure 75 mm[Hg] Phani Ball Other [employer] Other 06-16-2022 12:30-0400 Respiratory rate 12 /min Phani Ball Other [employer] Other 06-16-2022 12:30-0400 Systolic blood pressure 139 mm[Hg] Phani Ball Other [employer] Other 05-29-2022 14:45-0400 Body height 157.48 cm Phani Ball Other [employer] Other 05-29-2022 14:45-0400 Body mass index (BMI) [Ratio] 21.25 kg/m2 Phani Ball Other [employer] Other 05-29-2022 14:45-0400 Body weight 52.71 kg Phani Ball Other [employer] Other 05-29-2022 14:45-0400 Diastolic blood pressure 98 mm[Hg] Phani Ball Other [employer] Other 05-29-2022 14:45-0400 Respiratory rate 12 /min Phani Ball Other [employer] Other 05-29-2022 14:45-0400 Systolic blood pressure 150 mm[Hg] Phani Ball Other [employer] Other 03-14-2022 15:30-0500 Body height 157.48 cm Kiran Shamir Other [employer] Other 03-14-2022 15:30-0500 Body mass index (BMI) [Ratio] 19.57 kg/m2 Kiran Shamir Other [employer] Other 03-14-2022 15:30-0500 Body weight 48.54 kg Kiran Shamir Other [employer] Other 03-14-2022 15:30-0500 Diastolic blood pressure 96 mm[Hg] Kiran Barksdale Other [employer] Other 03-14-2022 15:30-0500 Systolic blood pressure 136 mm[Hg] Kiran Shamir Other [employer] Other 01-20-2022 11:40-0500 Diastolic blood pressure 84 mm[Hg] DO Phani Ball Work Phone: [facility] 01-20-2022 11:40-0500 Heart rate 79 /min DO Phani Ball Work Phone: [facility] 01-20-2022 11:40-0500 Respiratory rate 18 /min DO Phani Ball Work Phone: [facility] 01-20-2022 11:40-0500 SaO2% (BldA) [Mass fraction] 97 % DO Phani Ball Work Phone: [facility] 01-20-2022 11:40-0500 Systolic blood pressure 143 mm[Hg] DO Phani Ball Work Phone: [facility] 01-20-2022 09:05-0500 Body height 157.48 cm DO Phani Ball Work Phone: [facility] 01-20-2022 09:05-0500 Body temperature 98.2 [degF] DO Phani Ball Work Phone: [facility] 01-20-2022 09:05-0500 Body weight 51.25 kg DO Phani Ball Work Phone: [facility] 12-09-2021 12:00-0400 Body height 157.48 cm Kiran Barksdale Other [employer] Other 12-09-2021 12:00-0400 Body mass index (BMI) [Ratio] 21.58 kg/m2 Kiran Barksdale Other [employer] Other 12-09-2021 12:00-0400 Body weight 53.52 kg Kiran Barksdale Other [employer] Other 09-05-2021 17:00-0400 Body height 157.48 cm Ambrose Torres Other [employer] Other 09-05-2021 17:00-0400 Body mass index (BMI) [Ratio] 23.01 kg/m2 Ambrose Torres Other [employer] Other 09-05-2021 17:00-0400 Body weight 57.06 kg Ambrose Torres Other [employer] Other 06-13-2021 10:45-0400 Body height 157.48 cm Janna Pina Other [employer] Other 06-13-2021 10:45-0400 Body mass index (BMI) [Ratio] 23.23 kg/m2 Janna Pina Other [employer] Other 06-13-2021 10:45-0400 Body weight 57.61 kg Janna Pina Other [employer] Other 06-13-2021 10:45-0400 Diastolic blood pressure 107 mm[Hg] Janna Pina Other [employer] Other 06-13-2021 10:45-0400 Systolic blood pressure 145 mm[Hg] Janna Pina Other [employer] Other 04-13-2021 10:05-0500 Body height 157.48 cm Shira Cunningham Other [employer] Other 04-13-2021 10:05-0500 Body mass index (BMI) [Ratio] 22.86 kg/m2 Shira Cunningham Other [employer] Other 04-13-2021 10:05-0500 Body temperature 96.2 [degF] Shira Cunningham Other [employer] Other 04-13-2021 10:05-0500 Body weight 56.7 kg Shira Cunningham Other [employer] Other 04-13-2021 10:05-0500 Respiratory rate 18 /min Shira Cunningham Other [employer] Other 04-13-2021 10:05-0500 SaO2% (BldA) [Mass fraction] 95 % Shira Cunningham Other [employer] Other 01-20-2021 12:00-0500 Body height 157.48 cm Janna Pina Other [employer] Other 01-20-2021 12:00-0500 Body mass index (BMI) [Ratio] 23.04 kg/m2 Janna Pina Other [employer] Other 01-20-2021 12:00-0500 Body weight 57.15 kg Janna Pina Other [employer] Other 12-07-2020 15:30-0400 Body height 157.48 cm Janna Pina Other [employer] Other 12-07-2020 15:30-0400 Body mass index (BMI) [Ratio] 22.86 kg/m2 Janna Pina Other [employer] Other 12-07-2020 15:30-0400 Body weight 56.7 kg Janna Bakerkes Other [employer] Other Encounters Encounter Date Encounter Type Care Provider Facility Start: 11-03-2024 End: 11-03-2024 ambulatory Vickey Beasley MD Facility: [facility] Start: 10-20-2024 End: 10-20-2024 ambulatory Vickey Beasley MD Facility:[facility] Start: 10-01-2024 End: 10-01-2024 ambulatory Nettie Iqbal MD Work Phone: [facility] Work Phone: Start: 10-01-2024 End: 10-01-2024 Patient encounter procedure Obed Murray APRN -[facility] Work Phone: Start: 09-23-2024 End: 09-23-2024 ambulatory Nettie Iqbal MD Work Phone: [facility] Work Phone: Start: 09-23-2024 End: 09-23-2024 Patient encounter procedure Nettie Iqbal MD -[facility] Work Phone: Start: 09-15-2024 End: 09-15-2024 ambulatory Vickey Beasley MD Facility: [facility] Start: 08-21-2024 Non-patient / Non-visit Jaymie Duncan FO[employer] MOLDER-C -Located Within [facility] Work Phone: Start: 07-15-2024 End: 07-22-2024 Telephone encounter Everett Dunlap MD Work Phone: Gastroenterology Start: 07-05-2024 End: 07-05-2024 Patient encounter procedure Nettie Iqbal MD Work Phone: [facility] [place] Work Phone: Start: 07-05-2024 End: 07-05-2024 ambulatory Nettie Iqbal MD Work Phone: [facility] Work Phone: Start: 06-23-2024 End: 06-23-2024 ambulatory [facility] Work Phone: Start: 06-23-2024 End: 06-23-2024 Patient encounter procedure [facility] Work Phone: Start: 03-31-2024 End: 03-31-2024 Telephone encounter Everett Dunlap MD Work Phone: Gastroenterology Comment on above: Follow Up Tests Resu lts (Cytology---->recommend MRCP in [address] Erwin) Start: 03-28-2024 End: 03-28-2024 ambulatory Nettie Iqbal MD Work Phone: [facility] Work Phone: Start: 03-28-2024 End: 03-28-2024 Patient encounter procedure Nettie Iqbal MD Work Phone[facility] Work [facility]: Start: 03-21-2024 ambulatory JACI PERAZA Facility:[facility] Start: 03-21-2024 End: 03-21-2024 Subsequent hospital visit by physician Everett Dunlap MD Work Phone: [facility] - ENDO Comment on above: Pancreatic cyst [K86 .2] Start: 03-20-2024 End: 03-20-2024 Telephone encounter Everett Dunlap MD Work Phone: [facility] - [facility] Start: 03-19-2024 Registered Recurring Nettie balderas MD Work Phone: [facility] Start: 03-14-2024 End: 03-14-2024 ambulatory Everett Dunlap MD Work Phone: [facility] - [facility] Start: 02-14-2024 End: 02-19-2024 Telephone encounter Everett Dunlap MD Work Phone: Gastroenterology Start: 02-13-2024 End: 02-13-2024 Telephone encounter Everett Dunlap MD Work Phone: [facility] - [facility] Start: 02-05-2024 End: 02-05-2024 ambulatory Everett Dunlap MD Work Phone: [facility] - [facility] Start: 01-16-2024 End: 01-16-2024 Departed Referred MD Nettie Iqbal Work Phone: [facility] [place] Work Phone: Start: 01-16-2024 End: 01-16-2024 ambulatory MD Nettie Iqbal Work Phone: [facility] Work Phone: Start: 01-16-2024 End: 01-16-2024 Patient encounter procedure MD Nettie Iqbal Work Phone: [facility] Work Phone: Start: 01-08-2024 Non-patient / Non-visit MD Anny Iqbal Work Phone: [facility] Work Phone: Start: 01-03-2024 Non-patient / Non-visit MD Anny Iqbal Work Phone: [facility] Work Phone: Start: 01-03-2024 Registered Recurring MD Nettie Iqbal Work Phone: [facility] Start: 12-25-2023 End: 12-25-2023 ambulatory MD Nettie Iqbal Work Phone: [facility] Work Phone: Start: 12-25-2023 End: 12-25-2023 Patient encounter procedure MD Nettie Iqbal Work Phone: [facility] Work Phone: Start: 12-19-2023 End: 12-19-2023 ambulatory EVERETT DUNLAP Facility:[facility] Start: 12-19-2023 End: 12-19-2023 Patient encounter procedure Everett Dunlap MD Work Phone: Gastroenterology Comment on above: Chronic LUQ pain (Pr imary Dx); Weight loss; Pancreatic cyst; Family history of colon cancer in father; Smoker Start: 12-12-2023 Non-patient / Non-visit MD Anny Iqbal Work Phone: [facility] Work Phone: Start: 12-12-2023 Non-patient / Non-visit MD Anny Iqbal Work Phone: [facility] Work Phone: Start: 12-06-2023 Registered Recurring MD Nettie Iqbal Work Phone: [facility] Start: 11-30-2023 End: 12-04-2023 Telephone encounter Everett Dunlap MD Work Phone: Gastroenterology Comment on above: Procedure (Referred for EUS--->needs OV first) Start: 11-26-2023 End: 11-26-2023 ambulatory MD Nettie Iqbal Work Phone: [facility] Work Phone: Start: 11-26-2023 End: 11-26-2023 Patient encounter procedure MD Nettie Iqbal Work Phone: [facility] Gastroenterology Work Phone: Start: 11-02-2023 End: 11-02-2023 Patient encounter procedure MD Nettie Iqbal Work Phone: [facility] [place] Work Phone: Start: 11-02-2023 End: 11-02-2023 ambulatory MD Nettie Iqbal Work Phone: [facility] Work Phone: Start: 09-24-2023 End: 09-24-2023 ambulatory [facility] Work Phone: Start: 09-24-2023 End: 09-24-2023 Patient encounter procedure [facility] Work Phone: Start: 08-11-2023 End: 08-11-2023 ambulatory MD Nettie Iqbal Work Phone: [facility] Work Phone: Start: 08-11-2023 End: 08-11-2023 Patient encounter procedure MD Nettie Iqbal Work Phone[facility] [place] Work Phone: Start: 07-26-2023 End: 07-26-2023 Patient encounter procedure MD Nettie Iqbal Work Phone: [facility] Work Phone: Start: 06-22-2023 End: 06-22-2023 Departed Referred MD Nettie Iqbal Work Phone: [facility] [place] Work Phone: Start: 06-22-2023 End: 06-22-2023 ambulatory [facility] Work Phone: Start: 06-22-2023 End: 06-22-2023 Patient encounter procedure [facility] Work Phone: Start: 06-15-2023 End: 06-18-2023 ambulatory [facility] Start: 06-15-2023 End: 06-17-2023 Subsequent hospital visit by physician Ricardo Carbajal MD Work Phone: [facility] Comment on above: Compression fracture of T12 vertebra with delayed healing, subsequent encounter; Other osteoporosis with current pathological fracture, vertebra(e), initial encounter for fracture (HCC) Start: 06-13-2023 End: 06-14-2023 ambulatory [facility] Start: 05-28-2023 Non-patient / Non-visit [facility] [employer] [facility] Work Phone: Start: 04-19-2023 End: 04-19-2023 Subsequent hospital visit by physician Rad External Film EF RAD EXTERNAL [employer] Comment on above: Arrived Start: 04-13-2023 End: 04-13-2023 ambulatory Nettie Iqbal Other Located [facility] [employer] Other Start: 04-13-2023 Telephone encounter Nettie Iqbal [facility] Start: 04-11-2023 End: 04-11-2023 ambulatory Ana Kim Other [facility] Other Start: 04-11-2023 Office outpatient vi sit 15 minutes Ana Kim [facility] Neuro[facility] Start: 04-11-2023 End: 04-11-2023 Patient encounter procedure [facility]- Start: 03-08-2023 End: 03-08-2023 ambulatory Nettie Iqbal Other [employer] Other Start: 03-08-2023 Office outpatient vi sit 15 minutes Nettie Iqbal [facility] Start: 03-08-2023 Telephone encounter Nettie Iqbal [facility] Start: 03-02-2023 End: 03-02-2023 ambulatory Ana Kim Other [employer] Other Start: 03-02-2023 Telephone encounter Ana Kim [facility] Pain Management Start: 02-27-2023 Office outpatient vi sit 25 minutes Ana [facility] [place] Start: 02-27-2023 End: 02-27-2023 ambulatory MD Nettie Iqbal Work Phone: [facility] Work Phone: Start: 02-27-2023 End: 02-27-2023 Patient encounter procedure MD Nettie Iqbal Work Phone: [facility] Work Phone: Start: 02-20-2023 End: 02-20-2023 ambulatory Nettie Iqbal Other [employer] Other Start: 02-20-2023 Telephone encounter Nettie Iqbal [facility] Start: 02-15-2023 End: 02-15-2023 ambulatory Nettie Iqbal Other [employer] Other Start: 02-15-2023 Telephone encounter Nettie Iqbal [facility] Start: 02-12-2023 End: 02-12-2023 ambulatory Nettie Iqbal Other [employer] Other Start: 02-12-2023 Telephone encounter Nettie Iqbal [facility] Start: 01-29-2023 End: 01-29-2023 ambulatory Kiran Barksdale Other [employer] Other Start: 01-29-2023 Telephone encounter Kiran arnett [facility] Start: 01-26-2023 End: 01-26-2023 ambulatory Kiran Limaormack Other [facility] Other Start: 01-26-2023 Telephone encounter Kiran Vega melquiades [facility] Gastroenterology Start: 01-25-2023 End: 01-25-2023 ambulatory Nettie Iqbal Other [facility] Other Start: 01-25-2023 Telephone encounter Nettie Iqbal [facility] Start: 01-23-2023 End: 01-24-2023 ambulatory ROBIN FLANNERY Not Available Start: 01-22-2023 End: 01-22-2023 ambulatory Nettie Iqbal Other [facility] Other Start: 01-22-2023 Telephone encounter Nettie Iqbal [facility] Start: 01-15-2023 (Televisit) Televisit Nettie Kauffman [facility] Start: 01-15-2023 End: 01-15-2023 ambulatory Nettie Iqbal Other [facility] Other Start: 01-12-2023 End: 01-12-2023 ambulatory Nettie Iqbal Other [facility] Other Start: 01-12-2023 Telephone encounter Nettie Iqbal [facility] Start: 01-11-2023 End: 01-11-2023 ambulatory MD Nettie Iqbal Work Phone: [facility] Work Phone: Start: 01-11-2023 End: 01-11-2023 Patient encounter procedure MD Nettie Iqbal Work Phone: [facility] Work Phone: Start: 12-28-2022 End: 12-28-2022 ambulatory Nettie Iqbal Other [employer] Other Start: 12-28-2022 Telephone encounter Nettie Iqbal [facility] Start: 12-26-2022 (Televisit) Televisit Nettie Iqbal [facility] Start: 12-26-2022 End: 12-26-2022 ambulatory Nettie Iqbal Other [facility] Other Start: 12-25-2022 Telephone encounter Nettie Iqbal [facility] Start: 12-25-2022 End: 12-26-2022 ambulatory [place] RAMOS Located [facility] [employer] Other Start: 12-25-2022 End: 12-25-2022 Patient encounter procedure [place] RAMOS [facility] Start: 12-18-2022 End: 12-18-2022 Office outpatient new 45 minutes Libby Muñoz PA-C Work Phone: [facility] Comment on above: Pancreas cyst (Prima ry Dx) Start: 11-28-2022 End: 11-28-2022 ambulatory Kiran Barksdale Other [facility] Other Start: 11-28-2022 Telephone encounter Kiran Vega [facility] Start: 11-27-2022 End: 11-27-2022 ambulatory Nettie Iqbal Other [facility] Other Start: 11-27-2022 Telephone encounter Nettie Iqbal [facility] Start: 11-23-2022 (Televisit) Televisit Nettie Iqbal [facility] Start: 11-23-2022 End: 11-23-2022 ambulatory Nettie Iqbal Other [facility] Other Start: 11-22-2022 End: 11-22-2022 ambulatory Nettie Iqbal Other [facility] Other Start: 11-22-2022 Telephone encounter Nettie Iqbal [facility] Start: 11-20-2022 End: 11-20-2022 Departed Referred MD Nettie Iqbal Work Phone: [facility] Work Phone: Start: 11-20-2022 End: 11-20-2022 Patient encounter procedure MD Nettie Iqbal Work Phone: [facility] Work Phone: Start: 11-20-2022 End: 11-20-2022 ambulatory MD Nettie Iqbal Work Phone: [facility] Work Phone: Start: 11-20-2022 Telephone encounter Nettie Iqbal [facility] Start: 11-15-2022 End: 11-15-2022 ambulatory Nettie Iqbal Other [facility] Other Start: 11-15-2022 Telephone encounter Nettie Iqbal [facility] Start: 11-09-2022 End: 11-09-2022 ambulatory MD Nettie Iqbal Work Phone: [facility] Work Phone: Start: 11-09-2022 End: 11-09-2022 Patient encounter procedure MD Nettie Iqbal Work Phone: [facility] [place] Work Phone: Start: 11-02-2022 End: 11-02-2022 ambulatory Nettie Iqbal Other [facility] Other Start: 11-02-2022 Telephone encounter Nettie Iqbal [facility] Start: 10-24-2022 End: 10-24-2022 ambulatory Nettie Iqbal Other [facility] Other Start: 10-24-2022 Office outpatient vi sit 15 minutes Nettie Farida [facility] Start: 10-19-2022 End: 10-19-2022 ambulatory Shira Cunningham Other [facility] Other Start: 10-19-2022 Telephone encounter Shira [facility] Start: 10-18-2022 End: 10-18-2022 ambulatory Nettie Iqbal Other [facility] Other Start: 10-18-2022 Telephone encounter Nettie Iqbal [facility] Start: 10-17-2022 End: 10-17-2022 ambulatory Nettie Iqbal Other [facility] Other Start: 10-17-2022 Telephone encounter Nettie Iqbal [facility] Start: 10-05-2022 End: 10-05-2022 ambulatory Kiran Barksdale Other [facility] Other Start: 10-05-2022 Telephone encounter Kiran arnett [facility] Gastroenterology Start: 10-04-2022 End: 10-04-2022 ambulatory Nettie Farida Other [facility] Other Start: 10-04-2022 Telephone encounter Nettie Iqbal [facility] Start: 09-07-2022 End: 09-07-2022 ambulatory Kiran Barksdale Other [facility] Other Start: 09-07-2022 Office outpatient vi sit 25 minutes Kiran Barksdale [facility] Gastroenterology Start: 09-06-2022 End: 09-06-2022 ambulatory Nettie Iqbal Other [facility] Other Start: 09-06-2022 Telephone encounter Nettie Iqbal [facility] Start: 08-29-2022 End: 08-29-2022 ambulatory Nettie Iqbal Other [facility] Other Start: 08-29-2022 Office outpatient vi sit 15 minutes Nettie Iqbal [facility] Start: 08-25-2022 End: 08-25-2022 ambulatory Sandra Flores Other [facility] Other Start: 08-25-2022 Office outpatient vi sit 15 minutes Sandra Flores [facility] [place] Start: 08-14-2022 End: 08-14-2022 ambulatory Phani Pruitt Other [facility] Other Start: 08-14-2022 Telephone encounter Phani Pruitt [facility] Start: 08-10-2022 End: 08-10-2022 ambulatory Phani Pruitt Other [facility] Other Start: 08-10-2022 Telephone encounter Phani Pruitt [facility] Start: 08-08-2022 End: 08-08-2022 ambulatory Nettie Iqbal Other [facility] Other Start: 08-08-2022 Telephone encounter Nettie Iqbal [facility] Start: 08-03-2022 End: 08-03-2022 ambulatory Netite Iqbal Other [facility] Other Start: 08-03-2022 Office outpatient vi sit 15 minutes Nettie Iqbal [facility] Start: 07-27-2022 End: 07-28-[address] DOCTOR ROBERTS Facility: Start: 07-21-2022 End: 07-21-2022 ambulatory Phani Pruitt Other [facility] Other Start: 07-21-2022 Telephone encounter Phani Pruitt [facility] Start: 07-20-2022 End: 07-21-[address] PHANI PRUITT Facility:[facility]1 Start: 07-12-2022 End: 07-12-2022 ambulatory Phani Pruitt Other [facility] Other Start: 07-12-2022 Telephone encounter Phani GARCIA [facility] Start: 06-27-2022 End: 06-27-2022 ambulatory Vanessa Sanford Other [facility] Other Start: 06-27-2022 Telephone encounter Vanessa Sanford [facility] [address] Start: 06-22-2022 End: 06-22-2022 ambulatory Phani Pruitt Other [facility] Other Start: 06-22-2022 Telephone encounter Phani GARCIA [facility] Start: 06-20-2022 End: 06-20-2022 Departed Referred SHEILA Sanford Work Phone: [facility] [place] Work Phone: Start: 06-20-2022 End: 06-20-2022 ambulatory SHEILA Sanford Work Phone: [facility] Work Phone: Start: 06-20-2022 Office outpatient vi sit 15 minutes Vanessa Sanford [facility] Start: 06-16-2022 End: 06-17-[address] PHANI PRUITT Located Within [facility] Other Start: 06-16-2022 Office outpatient vi sit 25 minutes Phani Pruitt [facility] Start: 06-06-2022 End: 06-07-2022 ambulatory AINSLEY WATERMAN . Facility:[facility]1 Start: 05-29-2022 End: 05-30-[address] PHANI PRUITT Located Within [facility] Other Start: 05-29-2022 Office outpatient vi sit 25 minutes Phani Ball [facility] Start: 05-29-2022 Telephone encounter Phani Ball [facility] Start: 05-12-2022 End: 05-12-2022 ambulatory Phani Ball Other [facility] Other Start: 05-12-2022 Telephone encounter Phani Ball [facility] Start: 05-09-2022 End: 05-09-2022 ambulatory Phani Ball Other [facility] Other Start: 05-09-2022 Office outpatient vi sit 15 minutes Phani Ball [facility] Start: 05-09-2022 Telephone encounter Phani Ball [facility] Start: 04-28-2022 End: 04-28-2022 ambulatory Phani Ball Other [facility] Other Start: 04-28-2022 Telephone encounter Phani Pruitt [facility] Start: 04-24-2022 End: 04-24-2022 ambulatory Phani Pruitt Other [facility] Other Start: 04-24-2022 Telephone encounter Phani Pruitt [facility] Start: 04-20-2022 End: 04-20-2022 ambulatory Phani Pruitt Other [facility] Other Start: 04-20-2022 Telephone encounter Phani Pruitt [facility] Start: 04-17-2022 End: 04-17-[address] ABDELRAHMAN WEINSTEIN . Facility:[facility]1 Start: 04-16-2022 Encounter for other preprocedural examination DR ABDELRAHMAN WEINSTEIN . [facility] Start: 04-14-2022 End: 04-15-[address] ABDELRAHMAN WEINSTEIN . Facility:[facility]1 Start: 04-14-2022 End: 04-15-2022 Encounter for other preprocedural examination DR ABDELRAHMAN WEINSTEIN . Facility:[facility]1 Start: 04-13-2022 End: 04-13-2022 ambulatory Phani Edmond Other [facility] Other Start: 04-13-2022 Telephone encounter Phani Cleary [facility] Start: 04-10-2022 End: 04-10-[address] ABDELRAHMAN WEINSTEIN . Facility:[facility]1 Start: 03-25-2022 End: 03-25-2022 ambulatory Kiran Barksdale Other [facility] Other Start: 03-25-2022 Telephone encounter Kiran Vega [facility] Start: 03-15-2022 End: 03-15-2022 ambulatory Phani Pruitt Other [facility] Other Start: 03-15-2022 Telephone encounter Phain Pruitt [facility] Start: 03-14-2022 End: 03-14-2022 ambulatory Kiran Barksdale Other [facility] Other Start: 03-14-2022 Office outpatient vi sit 15 minutes Kiran Barksdale [facility] Start: 03-10-2022 End: 03-10-2022 ambulatory Phani Pruitt Other [facility] Other Start: 03-10-2022 Telephone encounter Phani GARCIA [facility] Start: 03-01-2022 Encounter for other preprocedural examination Nettie Iqbal Other [facility] Other Start: 03-01-2022 Pre-procedure evaluation check Nettie Iqbal Other [facility] Other Start: 02-23-2022 End: 02-24-[address] KIEL DÍAZ . Facility:[facility]1 Start: 01-20-2022 End: 01-20-2022 Admission to same day surgery center DO Phani Pruitt Work Phone: [facility] Start: 01-20-2022 End: 01-20-2022 ambulatory DO Phani Pruitt Work Phone: [facility] Work Phone: Start: 01-06-2022 End: 01-07-[address] WAI SEVERINO Facility:[facility]1 Start: 01-02-2022 End: 01-02-2022 ambulatory Kiran Barksdale Other [facility] Other Start: 01-02-2022 Telephone encounter Kiran arnett [facility] Start: 12-09-2021 End: 12-09-2021 ambulatory Kiran Barksdale Other [facility] Other Start: 12-09-2021 Office outpatient vi sit 25 minutes Kiran Barksdale [facility] Start: 11-28-2021 End: 11-29-[address] PHANI PRUITT Facility:[facility]1 Start: 11-10-2021 End: 11-10-2021 ambulatory Kiran Barksdale Other [facility] Other Start: 11-10-2021 Telephone encounter Kiran arnett [facility] Start: 10-20-2021 End: 10-20-[address] PHANI PRUITT Facility:[facility]1 Start: 10-16-2021 End: 10-16-[address] PHANI PRUITT Facility:[facility]1 Start: 10-05-2021 End: 10-05-2021 ambulatory AINSLEY WATERMAN . Facility:[facility]1 Start: 09-30-2021 ambulatory SANTA Fulleri ty:[facility]1 Start: 09-29-2021 End: 09-29-2021 ambulatory Janna Pina Other [facility] Other Start: 09-29-2021 Telephone encounter Janna Pina [facility] Start: 09-20-2021 Adult health examination Nettie Iqbal Other [facility] Other Start: 09-20-2021 Encounter for genera l adult medical examination without abnormal findings Nettie Iqbal Other [facility] Other Start: 09-05-2021 End: 09-05-2021 ambulatory Ambrose Torres Other [facility] Other Start: 09-05-2021 Office outpatient vi sit 15 minutes Ambrose Torres [facility] Start: 08-31-2021 End: 09-01-[address] PHANI PRUITT Facility:[facility]1 Start: 07-08-2021 End: 07-08-2021 ambulatory Janna Pina Other [facility] Other Start: 07-08-2021 Telephone encounter Janna Hykes [facility] Start: 06-13-2021 End: 06-13-2021 ambulatory Janna Hykes Other [facility] Other Start: 06-13-2021 Office outpatient vi sit 25 minutes Janna Hykes [facility] Start: 04-13-2021 End: 04-13-2021 ambulatory Shira Velasquezmond Other [facility] Other Start: 04-13-2021 Office outpatient vi sit 15 minutes Shira Marisa [facility] Start: 02-28-2021 End: 02-28-2021 ambulatory Janna Bakerkes Other [facility] Other Start: 02-28-2021 Telephone encounter Janna Hykes [facility] Start: 01-31-2021 End: 01-31-2021 ambulatory Janna Bakerkes Other [facility] Other Start: 01-31-2021 Telephone encounter Janna Hykes [facility] Start: 01-20-2021 End: 01-20-2021 ambulatory Janna Hykes Other [facility] Other Start: 01-20-2021 Office outpatient vi sit 25 minutes Janna Hykes [facility] Start: 01-20-2021 Telephone encounter Janna Hykes [facility] Start: 12-07-2020 Office outpatient vi sit 25 minutes Janna Hykes [facility] Procedures Date Procedure Procedure Detail [...] 01-21-2032 Screening for malignant neoplasm of colon [facility] Start: 06-03-2030 RSV Vaccine (1 - 1-dose 75+ series) RSV Vaccine (1 - 1-dose 75+ series) [facility] Start: 06-12-2026 Diabetes Screening Diabetes Screening [facility] Start: 09-18-2024 Pneumococcal Vaccine: 50+ (3 of 3 - PCV20 or PCV21) Pneumococcal Vaccine: 50+ (3 of 3 - PCV20 or PCV21) [facility] Start: 06-25-2024 Patient referral [facility] Work Phone: Start: 03-21-2024 End: 03-21-2024 Patient encounter procedure [facility] - ENDO Comment on above: EUS (LINEAR) W/FNA Start: 03-12-2024 Advance Directive Discussion Advance Directive Discussion [facility] Start: 02-14-2024 End: 02-14-2024 Patient encounter procedure 02/14/2024 2:30 PM EST Appointment [facility] Endoscopy - ENDO [id number] [place] [address] [place] [address] [place] [address] EUS (LINEAR) W/FNA [facility] - ENDO Comment on above: EUS (LINEAR) W/FNA Start: 02-14-2024 End: 02-14-2024 Patient encounter procedure 02/14/2024 12:30 PM EST Appointment [facility] - ENDO [id number] [place] [address] [place] [id number] [address] [place] [address] EUS (LINEAR) W/FNA [facility] - ENDO Comment on above: EUS (LINEAR) W/FNA Start: 01-16-2024 Urine culture [facility] Start: 01-16-2024 Bacteria identified in Urine by Culture Urine Culture [facility] Start: 12-19-2023 End: 12-19-2023 Patient encounter procedure 12/19/2023 11:40 AM EDT Office Visit Gastroenterology [address] [place] [address] [place] [address] [place] [address] discuss EUS Gastroenterology Comment on above: discuss EUS Start: 11-26-2023 Patient referral [facility] Work Phone: Start: 11-11-2023 Covid-19 Vaccine ( season) Covid-19 Vaccine ( season) [facility] Start: 11-11-2023 Covid-19 Vaccine () Covid-19 Vaccine () [facility] Start: 11-11-2023 Influenza vaccination Influenza Vaccine (#1) [facility] Start: 07-26-2023 Patient referral [facility] Work Phone: Start: 06-24-2023 Patient referral [facility] Work Phone: Start: 06-22-2023 Bacteria identified in Urine by Culture [facility] Start: 03-12-2023 Advance Directive Discussion Advance Directive Discussion [facility] Start: 03-12-2023 Annual Wellness Visit (Medicare Advantage) Annual Wellness Visit (Medicare Advantage) [facility] Start: 01-11-2023 Bacteria identified in Urine by Culture [facility] Start: 11-10-2022 COVID-19 Vaccine ( season) COVID-19 Vaccine ( season) [facility] Start: 01-20-2022 [facility] Start: 03-28-2021 COVID-19 Vaccine (4 - Pfizer series) COVID-19 Vaccine (4 - Pfizer series) [facility] Start: 09-18-2020 Pneumococcal Vaccine: 65+ (3 of 3 - PPSV23 or PCV20) Pneumococcal Vaccine: 65+ (3 of 3 - PPSV23 or PCV20) [facility] Start: 09-18-2020 Pneumococcal Vaccine: 65+ Years (3 - PPSV23 or PCV20) Pneumococcal Vaccine: 65+ Years (3 - PPSV23 or PCV20) [facility] Start: 06-03-2020 Pneumococcal 65+ years Vaccine (2 of 2 - PCV) Pneumococcal 65+ years Vaccine (2 of 2 - PCV) [facility] Start: 06-03-2020 Pneumococcal Vaccine: 65+ (1 of 1 - PCV) Pneumococcal Vaccine: 65+ (1 of 1 - PCV) [facility] Start: 06-03-2020 Pneumococcal Vaccine: 65+ Years (2 - PCV) Pneumococcal Vaccine: 65+ Years (2 - PCV) [facility] Start: 06-03-2020 Screening for osteoporosis Bone Density Screening [facility] Start: 12-13-2016 Shingles vaccine (2 of 3) Shingles vaccine (2 of 3) [facility] Start: 12-13-2016 Shingrix Vaccine (2 of 3) Shingrix Vaccine (2 of 3) [facility] Start: 12-13-2016 Zoster Vaccines (2 of 3) Zoster Vaccines (2 of 3) [facility] Start: 12-08-2016 DTaP/Tdap/Td Vaccines (1 - Tdap) DTaP/Tdap/Td Vaccines (1 - Tdap) [facility] Start: 12-08-2016 Urine microalbumin profile DTaP,Tdap,Td Vaccine (1 - Tdap) [facility] Start: 2015 Hepatitis B Vaccines (1 of 3 - Risk 3-dose series) Hepatitis B Vaccines (1 of 3 - Risk 3-dose series) [facility] Start: 2015 Respiratory Syncytial Virus (RSV) or age 60 yrs+ (1 - 1-dose 60+ series) Respiratory Syncytial Virus (RSV) or age 60 yrs+ (1 - 1-dose 60+ series) [facility] Start: 2015 RSV Vaccine (1 - Risk 60-74 years 1-dose series) RSV Vaccine (1 - Risk 60-74 years 1-dose series) [facility] Start: 06-03-2010 Screening for osteoporosis DEXA (modify frequency per FRAX score) [facility] Start: 06-03-2005 Screening for malignant neoplasm of breast Breast cancer screen [facility] Start: 06-03-2005 Shingrix Vaccine (1 of 2) Shingrix Vaccine (1 of 2) [facility] Start: 06-03-2000 Lipid panel Lipid Screening [facility] Start: 06-03-2000 Screening for malignant neoplasm of colon [facility] Start: 1995 Lipid panel Lipids [facility] Start: 1995 Screening for malignant neoplasm of breast [facility] Start: 06-03-1977 DTaP/Tdap/Td Vaccines (1 - Tdap) DTaP/Tdap/Td Vaccines (1 - Tdap) [facility] Start: 06-03-1974 DTaP/Tdap/Td vaccine (1 - Tdap) DTaP/Tdap/Td vaccine (1 - Tdap) [facility] Start: 06-03-1974 Hepatitis A Vaccines (1 of 2 - Risk 2-dose series) Hepatitis A Vaccines (1 of 2 - Risk 2-dose series) [facility] Start: 06-03-1974 Urine microalbumin profile DTaP,Tdap,Td Vaccine (1 - Tdap) [facility] Start: 06-03-1973 Anxiety Screening Anxiety Screening [facility] Start: 06-03-1973 Depression Screening Depression Screening [facility] Start: 06-03-1973 Diabetes mellitus screening Diabetes Screening [facility] Start: 06-03-1973 Hepatitis C screening [facility] Start: 1967 Depression Screen Depression Screen [facility] Start: 1955 Lipid panel Lipid Panel [facility] Start: 1955 Medicare Annual Wellness Visit Medicare Annual Wellness Visit (AWV) [facility] Start: 1955 Screening for malignant neoplasm of colon [facility] Start: 1955 Screening for osteoporosis Bone Density Scan [facility] Start: 1955 Yearly Adult Physical Yearly Adult Physical [facility] Atopobium vaginae DN A [Presence] in Vaginal fluid by JOSH with probe detection [facility] Bacteria identified in Urine by Culture [facility] Bacterial vaginosis associated bacterium 2 DNA [Presence] in Vaginal fluid by JOSH with probe detection [facility] 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 Vaginal fluid by JOSH with probe detection [facility] Patient Education Colitis Hemorr hoids (DC) Mesalamine [facility] Work Phone: Patient referral [facility] Work Phone: End: 06-15-2023 Perq vertebroplasty uni/bi injx cervicothoracic [facility] Work Phone: Comment on above: 1 Occurrences starting 06/15/2023 until 06/15/2023 Study Interpretation of outside study MR transfer of outside films Imaging Routine 04/19/2023 11:05 AM EST [facility] Service Area Work Phone: End: 06-15-2023 Vertebroplasty each addl cervicothor/lumbosacral [facility] Comment on above: 1 Occurrences starting 06/15/2023 until 06/15/2023 [facility] Immunizations Immunization Date Immunization Notes Care Provider [facility] 12-25-2023 influenza, high dose seasonal, preservative-free MD Nettie Iqbal Work Phone: [facility] 10-24-2022 Flu vaccine, quadrivalent, high-dose, preservative free, age 65y+ (FLUZONE) Libby Muñoz PA-C Work Phone: [facility] Work Phone: 10-24-2022 influenza virus vaccine, unspecified formulation Everett Dunlap MD Work Phone: [facility] 12-24-2021 influenza, high dose seasonal, preservative-free Libby Muñoz PA-C Work Phone: [facility] Work Phone: 11-28-2021 influenza virus vaccine, split virus (incl. purified surface antigen) Nettie Iqbal Other [facility] Other 11-28-2021 influenza virus vaccine, unspecified formulation [facility] 11-28-2021 Influenza, Seasonal, Quadrivalent, Adjuvanted Libby Muñoz PA-C Work Phone: [facility] Work Phone: 01-31-2021 COVID-19 mRNA, Comirnaty (Pfizer) DO Galazar Work Phone: [facility] 12-15-2020 influenza virus vaccine, split virus (incl. purified surface antigen) Nettie Iqbal Other [facility] Other 12-15-2020 influenza virus vaccine, unspecified formulation [facility] 12-15-2020 Seasonal trivalent influenza vaccine, adjuvanted, preservative free Libby Muñoz PA-C Work Phone: [facility] Work Phone: 07-30-2020 COVID-19 mRNA, Comirnaty (Pfizer) DO Galazar Work Phone: [facility] 07-09-2020 COVID-19 mRNA, Comirnaty (Pfizer) DO Galazar Work Phone: [facility] 12-26-2019 influenza virus vaccine, split virus (incl. purified surface antigen) Nettie Iqbal Other [facility] Other 12-26-2019 influenza virus vaccine, unspecified formulation [facility] 09-19-2019 pneumococcal conjuga te vaccine, 13 valent Nettie Iqbal Other [facility] 01-29-2019 Influenza, injectabl e, Madin [place] Canine Kidney, preservative free, quadrivalent Libby Muñoz PA-C Work Phone: [facility] Work Phone: 01-07-2018 influenza virus vaccine, split virus (incl. purified surface antigen) Nettie Iqbal Other [facility] Other 01-07-2018 influenza virus vaccine, unspecified formulation [facility] 01-07-2018 Influenza, injectabl e, Madin [place] Canine Kidney, quadrivalent with preservative Libby Muñoz PA-C Work Phone: [facility] Work Phone: 12-07-2016 influenza, seasonal, injectable Libby Muñoz PA-C Work Phone: [facility] Work Phone: 12-07-2016 tetanus and diphther ia toxoids, adsorbed, preservative free, for adult use (5 Lf of tetanus toxoid and 2 Lf of diphtheria toxoid) Nettie Iqbal Other [facility] 10-18-2016 zoster vaccine, live Libby Muñoz PA-C Work Phone: [facility] Work Phone: 04-24-2016 zoster vaccine, live Nettie Iqbal Other [facility] 12-10-2013 influenza, injectabl e, madin raza canine kidney, preservative free Libby Muñoz PA-C Work Phone: [facility] Work Phone: 01-18-2013 pneumococcal polysaccharide vaccine, 23 valent Nettie Iqbal Other [facility] 10-25-2011 pneumococcal polysaccharide vaccine, 23 valent Libby Muñoz PA-C Work Phone: [facility] Work Phone: 01-10-2005 pneumococcal polysaccharide vaccine, 23 valent Janna Pina Other [facility] Other 02-05-2001 pneumococcal polysaccharide vaccine, 23 valent Libby Muñoz PA-C Work Phone: [facility] Work Phone: Payers Date Payer Category Payer Private Health Insurance 2023 Medicare (Managed Care) PRASHANT ALBERTS Member Subscriber Plan / Payer (Effective 2023-Present) Name: Afia Gutierres Relation to Subscriber: Self Name: Afia Gutierres Payer ID: [id number] (NAIC) Type: PPO Address: [place] [id number] 2022 Unknown SELF FUNDED SELF FUNDED 000 2022-Present [address] [place] [address] [id number] 2022 Medicare [id number]. [id number] 1959 Medicare [id number] 2.16.840.1.587260.19 1955 Unknown [id number] 2.16.840.1.826208.3.579. 2.593 1955 Unknown [id number] 2.16.840.1.868439.3.579. 2.593 1955 Unknown [id number] 2.16.840.1.116356.3.579. 2.593 1955 Unknown [id number] 2.16.840.1.156920.3.579. 2.593 1955 Unknown [id number] 2.16.840.1.935034.3.579. 2.593 1955 Unknown [id number] 2.16.840.1.606581.3.579. 2.593 1955 Unknown [id number] 2.16.840.1.294798.3.579. 2.593 1955 Unknown [id number] 2.16.840.1.703926.3.579. 2.593 1955 Unknown [id number] 2.16.840.1.705148.3.579. 2.593 1955 Unknown [id number] 2.16.840.1.775441.3.579. 2.593 1955 Unknown [id number] 2.16.840.1.261643.3.579. 2.593 1955 Unknown [id number] 2.16.840.1.022705.3.579. 2.593 1955 Unknown [id number] 2.16.840.1.056112.3.579. 2.593 1955 Unknown [id number] 2.16.840.1.323833.3.579. 2.593 1955 Unknown [id number] 2.16.840.1.389839.3.579. 2.593 1955 Unknown [id number] 2.16.840.1.191491.3.579. 2.593 1955 Unknown [id number] 2.16.840.1.383447.3.579. 2.727 1955 Unknown [id number] 2.16.840.1.059107.3.579. 2.1259 1955 Unknown [id number] 2.16.840.1.279125.3.579. 2.1259 1955 Unknown [id number] 2.16.840.1.122221.3.579. 2.1259 1955 Unknown [id number] 2.16.840.1.296527.3.579. 2.173 1955 Unknown [id number] 2.16.840.1.555044.3.579. 2.182 1955 Unknown [id number] 2.16.840.1.850553.3.579. 2.196 1955 Unknown [id number] 2.16.840.1.501261.3.579. 2.196 1955 Unknown [id number] 2.16.840.1.035305.3.579. 2.196 Medicare Medicare [id number] Medicare [id number] [id number] Self-pay Self Pay [id number] Social History Date Type Detail Facility Unknown if ever smoked [facility] Other Start: 06-15-2023 End: 12-19-2023 Sex Assigned At [facility] Start: 01-20-2022 End: 02-12-2022 Tobacco smoking status NHIS Ex-smoker (finding) [facility] Start: 1955 Sex Assigned At Female [facility] Tobacco smoking stat us [facility] Tobacco smoking consumption unknown [facility] Work Phone: Start: 12-17-2022 Gender identity Identifies as female gender (finding) [facility] Work Phone: Start: 12-17-2022 Sexual orientation Heterosexual (finding) [facility] Work Phone: Tobacco smoking status No Smokin g Status Entered [facility] Start: 08-11-2023 History of tobacco use Current smoker [facility] History of tobacco use Cigarette Smoker [facility] Start: 06-15-2023 End: 12-19-2023 History of Social function [facility] Start: 1955 Sex Assigned At Not on file [facility] Start: 12-19-2023 Tobacco smoking status NJIS Smokes tobacco daily [facility] Start: 12-19-2023 Tobacco use and exposure Smokeless tobacco non-user [facility] Start: 12-19-2023 Alcoholic beverage intake Ex-drinker (finding) [facility] National Score (1-10 0), lower number is lower risk 63 [facility] Start: 01-16-2024 End: 01-16-2024 Tobacco smoking status NHIS Current some day smoker [facility] Start: 03-28-2024 End: 07-06-2024 Sex Female (finding) [facility] Medical Equipment Procedure Code Equipment Code Equipment Origin al Text Equipment Identifier Dates Kyphoplasty Orthopaedic ceme nt, non-medicated [id number] FDA Start: 06-24-2019 Cement Bne 20 Gm Hi Visc Radiopaque Vertaplex Hv - [id number] Start: 06-15-2023 Comment on above: Description: [...] 1:09pm Pancreatic lesion acute October 012024 1:09pm [facility] Work Phone: 1(999) 506-720205-13-2025 Telephone encounter Note* Telephone Encounter - Angela Monson RN - 07/22/2024 9:21 AM EDT Recommendations faxed to Dr. Erwin's office. Angela Monson RN [facility] Work Phone: 1(982) 355-433705-13-2025 Miscellaneous Notes* Telephone Encounter - Angela Monson [...] dysplasia. Recommend: MRCP in 6 months at [facility] facility. Send my opinion to Dr. Erwin. Everett Dunlap MD * Telephone Encounter - Angela Monson RN - 07/17/2024 2:[address] Dunlap, MRI images available in [facility] to review. Angela Monson RN * Telephone Encounter - Angela Monson RN - 07/16/2024 9:10 AM EDT Fannie called [employer], they will push images to [facility]. Will monitor. Angela Monson RN * Telephone Encounter - Everett Dunlap MD - 07/15/2024 5:23 PM EDT Angela: I wanted her MRCP to be done at [facility] facility for my review. I need the images of MRCP (done at [facility]) uploaded to [facility] for my review prior to [...] She is scheduled 02/14/2024 at 12:30 PM, [facility]. - EGD - THERAPEUTIC, EUS, OR [...] and my recommendations to Dr. Erwin at [facility] [facility]. Pt had repeat MRCP 07/05/2024 and [...] could also be considered. documented in [facility] Telephone encounter Note * Telephone Encounter - [...] dysplasia. Recommend: MRCP in 6 months at [facility] facility. Send my opinion to Dr. Erwin. Everett Dunlap MD [facility]05-08-2025 Telephone encounter Note* Telephone Encounter - Angela Monson RN - 07/17/2024 2:[address] Dunlap, MRI images available in [facility] to review. Angela Monson RN [facility]05-07-2025 Telephone encounter Note* Telephone Encounter - Angela Monson RN - 07/16/2024 9:10 AM EDT [facility] to [facility]. Will monitor. Angela Monson RN [facility]05-06-2025 Telephone encounter Note* Telephone Encounter - Everett Dunlap MD - 07/15/2024 5:23 PM EDT Angela: I wanted her MRCP to be done at [facility] facility for my review. I need the images of MRCP (done at [facility]) uploaded to [facility] for my review prior to rendering anyopinion. Everett Dunlap MD [facility]05-06-2025 Telephone encounter Note* Telephone Encounter - Angela [...] Erwin. She used Dr. Was transferred to [facility]. 2. Weight loss - ICD9: 783.21, ICD10: [...] She is scheduled 02/14/2024 at 12:30 PM, [facility]. - EGD - THERAPEUTIC, EUS, OR [...] and my recommendations to Dr. Erwin at [facility]. Pt had repeat MRCP 07/05/2024 and [...] or small pseudocysts could also be considered. [facility]04-14-2025 Evaluation note* Diagnosis Onset Date Resolution Status [...] 1:01pm Fibromyalgia chronic June 23, 2024 1:01pm [facility] Work Phone: 1(953) 916-886001-20-2025 Telephone encounter Note* Telephone Encounter - Angela Monson RN - 03/31/2024 1:01 PM EST Pt notified of results and recommendations and verbalized understanding. She will follow up with Dr. Erwin. Reports and recommendations faxed to Dr. Erwin's office. Angela Monson RN [facility] Work Phone: 1(829) 799-766601-20-2025 Miscellaneous Notes* Telephone Encounter - Angela Monson [...] and my recommendations to Dr. Erwin at [facility]. Everett Dunlap MD documented in this encounterChildren'S [facility]01-20-2025 Telephone encounter Note * Telephone Encounter - [...] and my recommendations to Dr. Erwin at [facility]. Everett Dunlap MD [facility]01-17-2025 Evaluation note* Diagnosis Onset Date Resolution Status Admit Date Anxiety acute March 28, 2024 12:59pm Pancreatic lesion acute March 28, 2024 12:59pm Right femoral fracture acute Ja nuary 2024 12:59pm Sinusitis acute March 28, 2024 12:59pm Vertebral compression fracture acute March 28, 2024 12:59pm COPD (chronic obstructive pulmonary disease) chronic March 28, 2024 12:59pm Fibromyalgia chronic March 12:59pm [facility] Work Phone: 1(149) 882-975701-10-2025 Nurse Note* Sofy Arriaga RN - 03/21/2024 [...] PROVIDED TO PATIENT: None REFERRAL (RECOMMENDATION): None [facility]01-[facility] Nurse Note* Sofy Arriaga RN - 03/21/2024 [...] None REFERRAL (RECOMMENDATION): None documented in this encounterChildren'S Hospital [facility]01-10-2025 History and physical note * Everett Dunlap [...] Comments Other Reaction(s): diarrhea, itching and rash Bpkuuma-Vlg-Mfi Red* Unknown Other Reaction(s): Unknown Sulfamethoxazole-Tr* Unknown [...] DATE: March 21, 2024 TIME: 9:22 AM [facility]01-10-2025 History and physical note* Everett Dunlap MD [...] Comments Other Reaction(s): diarrhea, itching and rash Accqkkd-Rwh-Vhg Red* Unknown Other Reaction(s): Unknown Sulfamethoxazole-Tr* Unknown [...] 2024 TIME: 9:22 AM documented in this encounterChildren'[facility]01-09-2025 Telephone encounter Note * Telephone Encounter - [...] . If you need to reschedule call [phone]. [facility]01-09-2025 Miscellaneous Notes* Telephone Encounter - Carmen Meadows [...] . If you need to reschedule call [phone]. documented in this encounterChildren'[facility]12-10-2024 Telephone encounter Note * Telephone Encounter - Anam Guzman Elham II - 02/19/2024 1:09 PM EST Spoke with patient, rescheduled EUS to 03/21/2024 at [facility]. Elham Mendieta Adm Asst II [facility]12-10-2024 Miscellaneous Notes* Telephone Encounter - Anam Adm Guzman Elham II - 02/19/2024 1:09 PM EST Spoke with patient, rescheduled EUS to 03/21/2024 at [facility]. 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 Please call pt back to reschedule. 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 Please call pt back to reschedule. [facility]12-04-2024 Telephone encounter Note* Telephone Encounter - Carmen [...] appointment or your prep instructions please call [phone]. If you need to reschedule call [phone]. [facility]12-04-2024 Miscellaneous Notes* Telephone Encounter - Carmen Meadows [...] appointment or your prep instructions please call [phone]. If you need to reschedule call [phone]. 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 Previous work [...] Comments Other Reaction(s): diarrhea, itching and rash Tqbrhrc-Upa-Hdl Red* Unknown Other Reaction(s): Unknown Sulfamethoxazole-Tr* Unknown [...] She is scheduled 02/14/2024 at 12:30 PM, [facility]. - EGD - THERAPEUTIC, EUS, OR TUBE INTERVENTIONS 4. Family history of colon cancer in father - ICD9: V16.0, ICD10: Z80.0 5. Smoker - ICD9: 305.1, ICD10: F17.200 She smokes half pack per day for many years. 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 Previous work [...] Comments Other Reaction(s): diarrhea, itching and rash Ivqludx-Qvm-Uqr Red* Unknown Other Reaction(s): Unknown Sulfamethoxazole-Tr* Unknown [...] She is scheduled 02/14/2024 at 12:30 PM, [facility]. - EGD - THERAPEUTIC, EUS, OR TUBE INTERVENTIONS 4. Family history of colon cancer in father - ICD9: V16.0, ICD10: Z80.0 5. Smoker - ICD9: 305.1, ICD10: F17.200 She smokes half pack per day for many years. Everett Dunlap MD, FACP documented in this encounterChildren'[facility]09-24-2024 Telephone encounter Note * Telephone Encounter - Beth Summers - 12/04/2023 10:02 AM EDT Spoke with patient. Unable to get a ride on 12/04, scheduled 12/18 Thank you Beth Summers PSS [facility]09-24-2024 Miscellaneous Notes* Telephone Encounter - Beth Summers [...] Awaiting MRCP images to be uploaded to [facility]. Schedule follow-up visit in my pancreas clinic [...] are uncomplicated colonic diverticula. documented in this encounterChildren'S [facility]09-23-2024 Telephone encounter Note * Telephone Encounter - Angela Monson RN - 12/03/2023 3:56 PM EDT MRI images available for review. Schedulers, please call pt to schedule OV in pancreas clinic as indicated below. Dr. Dunlap has availability 12/05/2023. Thank you, Angela Monson RN [facility]09-22-2024 Telephone encounter Note* Telephone Encounter - Everett Dunlap MD - 12/02/2023 8:47 PM EDT Awaiting MRCP images to be uploaded to [facility]. Schedule follow-up visit in my pancreas clinic in the next 1-2 months. Likely the patient does not need EUS giving stable small pancreatic cyst measuring 6 mm. Everett Dunlap MD [facility]09-20-2024 Telephone encounter Note* Telephone Encounter - Angela [...] an IPMN. There are uncomplicated colonic diverticula. [facility]04-05-[facility] History of Present illness Narrative* Carolina De [...] active DRN-CC order on file at [facility]. Dr. Carbajal notified. 1222 Dr[address] Gonsalves notified pt ready to be seen. 1257 Dr. Villeda [facility], speaking to patient. Dr. Villeda aware of pt's wishes to remain DNR-CC. Also aware of bradycardia. 1300 Dr Gonsalves speaking to via phone. 1309 Dr. Villeda at [facility] for nerve block procedure. Time out performed. 1316 Nerve block performed 1324 Dr. Carbajal [facility] to discuss procedure. Risks/benefits discussed, all questions answered. 1330 Pt to Special procedures via cart for procedure. [facility] Discharge instructions* Discharge Instructions* April [...] during normal business hours (Sunday-Sunday 8am-6pm) at [phone] and have them paged. You may also contact Dr. Carbajal office with any questions or concerns at [phone]. * Attachments The following attachments cannot be sent through [facility] Everywhere. * Vertebroplasty: Post-op (Algerian) * Sedation (Algerian) documented in this encounterBON [facility]01-31-[facility] Evaluation note* Encounter Date Diagnosis Assessment [...] for kyphoplasty at [facility]. Dr Iqbal is out of the office. [facility] Other 12-28-2023 Evaluation note* Encounter Date Diagnosis [...] and start weight bearing exercises as tolerated [facility] Other 12-19-2023 Evaluation note* Encounter Date Diagnosis [...] MRI of the lumbar spine at the [facility]. Discussion of new versus old in [...] T12 vertebra, initial encounter (ICD-10 - S22.080A) [facility] Other 11-20-2023 Evaluation note* Encounter Date Diagnosis Assessment Notes Treatment Notes Treatment Clinical Notes Jan, Pancreatic cyst (ICD-10 - K86.2) [facility] Other 11-17-2023 Evaluation note* Encounter Date Diagnosis Assessment Notes Treatment Notes Treatment Clinical Notes Jan, Pancreatic cyst (ICD-10 - K86.2) [facility] Other 11-06-2023 Evaluation note* Encounter Date Diagnosis [...] sooner. Otherwise on his schedule on 02/01 [facility] Other 10-17-2023 Evaluation note* Encounter Date Diagnosis [...] pain is adequately controlled with present prescription. [facility] Other 10-16-2023 Evaluation note* Encounter Date Diagnosis Assessment Notes Treatment Notes Treatment Clinical Notes Dec, Moderate episode of recurrent major depressive disorder (ICD-10 - F33.1) [facility] Other 10-09-2023 History of Present illness Narrative* [...] but prefers to have this done in [place] with Dr. Barksdale as she is unable to drive to a facility. Libby Muñoz PA-C documented in [facility] encounterZ[facility] Work Phone: 1(380) 245-647109-14-2023 Evaluation note* Encounter Date Diagnosis Assessment Notes [...] and change to a portable oxygen concentrator. [facility] Other 09-14-2023 Evaluation note* Encounter Date Diagnosis [...] POC setting at 2 via nasal cannula. [facility] Other 09-11-2023 Evaluation note* Encounter Date Diagnosis Assessment Notes Treatment Notes Treatment Clinical Notes Nov, Dysuria (ICD-10 - R30.0) [facility] Other 08-24-2023 Evaluation note* Encounter Date Diagnosis Assessment Notes Treatment Notes Treatment Clinical Notes Oct, Fibromyalgia (ICD-10 - M79.7) [facility] Other 08-15-2023 Evaluation note* Encounter Date Diagnosis [...] Reviewed OARRS report. Continue meds and treatment. [facility] Other 07-27-2023 Evaluation note* Encounter Date Diagnosis Assessment Notes Treatment Notes Treatment Clinical Notes Sep, Diverticular disease (ICD-10 - K57.90) [facility] Other 07-26-2023 Evaluation note* Encounter Date Diagnosis Assessment Notes Treatment Notes Treatment Clinical Notes Sep, Lumbar spondylosis (ICD-10 - M47.816) [facility] Other 06-29-2023 Evaluation note* Encounter Date Diagnosis Assessment Notes Treatment Notes Treatment Clinical Notes Aug, Diverticular disease (ICD-10 - K57.90) Patient reports constipation and she will try linzess 290 mg prescription sent to pharmacy RTO 3 months Aug, GERD (gastroesophageal reflux disease) (ICD-10 - K21.9) Aug, Pancreas cyst (ICD-10 - K86.2) Patient is to have an MRCP dont at [facility] ordered today [facility] Other 06-28-2023 Evaluation note* Encounter Date Diagnosis Assessment Notes Treatment Notes Treatment Clinical Notes Aug, Lumbar spondylosis (ICD-10 - M47.816) [facility] Other 06-20-2023 Evaluation note* Encounter Date Diagnosis [...] into present EMR for review by her molecular biologist next week. [facility] Other 06-16-2023 Evaluation note* Encounter Date Diagnosis Assessment Notes Treatment Notes Treatment Clinical Notes Aug, COPD exacerbation (ICD-10 - J44.1) Discussed with patient exam and history is consistent with COPD exacerbation. Rapid COVID is negative in office. Will cover with azithromycin and prednisone burst. Continue maintenance and rescue inhaler as needed. May use Mucinex DM wjhl-trc-mgfnpty. Patient has follow-up with PCP next week. Advised to follow-up sooner if any rapidly increasing shortness of breath, wheezing, signs of respiratory distress. Patient verbalized understanding of treatment plan. Patient reports history of frequent yeast infections with antibiotic use. Requesting Diflucan. Dose sent. Advised should only take it develop symptoms. Patient verbalized understanding. Aug, Congestion of nasal sinus (ICD-10 - R09.81) [facility] Other 06-01-2023 Evaluation note* Encounter Date Diagnosis Assessment Notes Treatment Notes Treatment Clinical Notes Aug, Lumbar spondylosis (ICD-10 - M47.816) [facility] Other 05-25-2023 Evaluation note* Encounter Date Diagnosis Assessment Notes Treatment Notes Treatment Clinical Notes July, Chronic obstructive pulmonary disease with (acute) lower respiratory infection (ICD-10 - J44.0) Discussed prednisone could help her hip pain and her wheezing for a short term treatment July, Insomnia, idiopathic (ICD-10 - F51.01) d/c remeron start trazodone. f/u in 1 month [facility] Other 05-03-2023 Evaluation note* Encounter Date Diagnosis Assessment Notes Treatment Notes Treatment Clinical Notes July, Lumbar spondylosis (ICD-10 - M47.816) [facility] Other 04-11-2023 Evaluation note* Encounter Date Diagnosis [...] send in medication if needed. Follow-up with [facility] if no improvement of symptoms. Immediate evaluation in ER for signs/symptoms as discussed. Patient verbalizes understanding and is agreeable with treatment plan. [facility] Other 04-07-2023 Evaluation note* Encounter Date Diagnosis [...] and ulcerations. May be worsened by Lyrica [facility] Other 03-20-2023 Evaluation note* Encounter Date Diagnosis [...] - R53.83) Healthy diet and keep active [facility] Other 03-03-2023 Evaluation note* Encounter Date Diagnosis Assessment Notes Treatment Notes Treatment Clinical Notes May, Lumbar spondylosis (ICD-10 - M47.816) [facility] Other 03-03-2023 Evaluation note* Encounter Date Diagnosis Assessment Notes Treatment Notes Treatment Clinical Notes May, Acute bronchitis due to other specified organisms (ICD-10 - J20.8) [facility] Other 02-28-2023 Evaluation note* Encounter Date Diagnosis [...] hours as needed for cough and dyspnea [facility] Other 02-28-2023 Evaluation note* Encounter Date Diagnosis Assessment Notes Treatment Notes Treatment Clinical Notes Apr, Chronic obstructive pulmonary disease with (acute) exacerbation (ICD-10 - J44.1) [facility] Other 02-02-2023 Evaluation note* Encounter Date Diagnosis Assessment Notes Treatment Notes Treatment Clinical Notes Apr, Lumbar spondylosis (ICD-10 - M47.816) [facility] Other 01-04-2023 Evaluation note* Encounter Date Diagnosis Assessment Notes Treatment Notes Treatment Clinical Notes Mar, Lumbar spondylosis (ICD-10 - M47.816) [facility] Other 01-03-2023 Evaluation note* Encounter Date Diagnosis Assessment Notes Treatment Notes Treatment Clinical Notes Mar, Diverticular disease (ICD-10 - K57.90) continue dicyclomine as needed. Mar, Alternating constipation and diarrhea (ICD-10 - R19.8) start metamucil gummies every day. Mar, GERD (gastroesophageal reflux disease) (ICD-10 - K21.9) patient to continue pantoprazole [facility] Other 11-11-2022 Procedure [facility]09-30-2022 Evaluation note* Encounter Date Diagnosis Assessment Notes Treatment Notes Treatment Clinical Notes Nov, Lower abdominal pain (ICD-10 - R10.30) PATIENT STATES THAT SHE DOES HAVE BURNING. Nov, Constipation (ICD-10 - K59.00) PATIENT STATES MOVING BOWELS EVERYDAY PATIENT DID REDUCE THE DICYCLOMINE TO NEEDED WHN CONSTIPATED THIS MADE IT WORSE PATIENT IS ADVISED WE WILL START MOVANTIK [facility] Other 09-01-2022 Evaluation note* Encounter Date Diagnosis Assessment Notes Treatment Notes Treatment Clinical Notes Nov, GERD (gastroesophageal reflux disease) (ICD-10 - K21.9) [facility] Other 08-11-2022 NotePROCEDURE: XR HIP RT 2 3V W PELVIS COMPARISON: None. HISTORY: Injury of right hip region FINDINGS: BONES:No acute fracture or dislocation. Minimal degenerative osteoarthropathy of the hips SOFT TISSUES:Negative. No visible soft tissue swelling. EFFUSION:None visible. OTHER: Negative. IMPRESSION: No acute abnormality Electronically authenticated by: JANNA LAWTON Date: 2021-10-20 12:03[facility]06-27-2022 Evaluation note* Encounter Date Diagnosis Assessment [...] although I think that is less likely. [facility] Other 04-04-2022 Evaluation note* Encounter Date Diagnosis Assessment Notes Treatment Notes Treatment Clinical Notes Jun, LUQ abdominal pain (ICD-10 - R10.12) CONTINUE DICYCLOMINE 20 MG TID RTO 6-8 WEEKS Jun, Irritable bowel syndrome with diarrhea (ICD-10 - K58.0) Jun, Bloating (ICD-10 - R14.0) Jun, GERD (gastroesophageal reflux disease) (ICD-10 - K21.9) STOP OMEPRAZOLE [facility] Other 02-02-2022 Evaluation note* Encounter Date Diagnosis [...] the ER for worsening symptoms or concerns 02 Feb, 2022 Other Additional time spent conducting pre-visit phone call, screening for symptoms, instructions on social distancing, application and removal of PPE, and cleaning of examination room, equipment and supplies was preformed. Patient education given for testing methodology and results. Patient care instructions given in writting by [facility] document. [facility] Other 11-11-2021 Evaluation note* Encounter Date Diagnosis Assessment Notes Treatment Notes Treatment Clinical Notes Jan, Irritable bowel syndrome with diarrhea (ICD-10 - K58.0) OBTAIN COLONOSCOPY FROM [facility] [place] 06/2019Jan, Lower abdominal pain (ICD-10 - R10.30) STOP DICYCLOMINE PT TO REPORT PROGRESS Jan, Bloating (ICD-10 - R14.0) Jan, Rectal burning (ICD-10 - K62.89) [facility] Other 09-28-2021 Evaluation note* Encounter Date Diagnosis Assessment Notes Treatment Notes Treatment Clinical Notes Nov, Irritable bowel syndrome with diarrhea (ICD-10 - K58.0) Nov, Generalized abdominal pain (ICD-10 - R10.84) Nov, Abdominal bloating (ICD-10 - R14.0) Nov, History of ischemic colitis (ICD-10 - Z87.19) Nov, Other CT ABD /PELVIS START DICYCLOMINE 20 MG TID ROT 4-6 WEEKS Diarrhea material was printed [facility] Other Evaluation + Plan note No data available for this section [facility] evaluation noteNo InformationNort [facility] Other Evaluation noteNo assessment information available [facility] Work Phone: Evaluation note* Diagnosis 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 documented in this encounter [facility] Work Phone: Evaluation note* Diagnosis Compression fracture of T12 vertebra with delayed healing, subsequent encounter Other osteoporosis with current pathological fracture, vertebra(e), initial encounter for fracture (HCC) [facility] [place] [facility]* Diagnosis Onset Date Resolution Status Anxiety acute Right femoral fracture acute UTI (urinary tract infection) acute Vertebral compression fracture acute Fibromyalgia chronic Anxiety acute COPD exacerbation resolved [facility] Work Phone: evaluation note* Diagnosis Onset Date Resolution Status Anxiety acute COPD exacerbation resolved Fibromyalgia chronic [facility] Work Phone: evaluation note* Diagnosis Onset Date Resolution Status COPD exacerbation resolved Anxiety acute Right femoral fracture acute UTI (urinary tract infection) acute Vertebral compression fracture acute Fibromyalgia chronic [facility] Work Phone: evaluation note* Diagnosis Onset Date Resolution Status Anxiety acute Right femoral fracture acute UTI (urinary tract infection) acute Vertebral compression fracture acute Fibromyalgia chronic Constipation acute GERD (gastroesophageal reflux disease) acute Pancreatic lesion acute [facility] Work Phone: Evaluation note* Diagnosis Pancreatic cyst- Primary Cyst and pseudocyst of pancreas documented in this encounter [facility] note* Diagnosis Chronic LUQ pain- Primary Abdominal pain, left upper quadrant Weight loss Loss of weight Pancreatic cyst Cyst and pseudocyst of pancreas Family history of colon cancer in father Smoker Tobacco use disorder documented in this encounter [facility] note* Diagnosis Onset Date Resolution Status Constipation acute GERD (gastroesophageal reflux disease) acute Pancreatic lesion acute [facility] Work Phone: evaluation note* Diagnosis Onset Date Resolution Status Constipation acute GERD (gastroesophageal reflux disease) acute Pancreatic lesion acute Anxiety acute Pancreatic lesion acute Right femoral fracture acute Vertebral compression fracture acute COPD (chronic obstructive pulmonary disease) chronic Fibromyalgia chronic UTI (urinary tract infection) acute Dysuria noneactive [facility] Work Phone: Evaluation note* Diagnosis Pancreatic cyst Cyst and pseudocyst of pancreas documented in this encounter [facility] note* Diagnosis Pancreatic cyst (HCC)- Primary Cyst and pseudocyst of pancreas documented in this encounter [facility] general Narrative - Reported* Type Description Date [...] History Hep B 1972 Hospitalization History diverticulitis [place] [facility] Other Histuvr general Narrative - Reported* Type Description Date [...] pain in Jan 2022 - non cardiac [facility] Other Hiscpwl general Narrative - ReportedNort Tabtor Other History general Narrative - Reported* Type [...] pain in Jan 2022 - non cardiac [facility] Other Hospital Discharge instructions Additional Instructions DISCHARGE [...] if you have any problems. -Office number [phone] Work Phone: Hospital Discharge instructions No data available for this section [facility] Hospital Discharge instructionsAmbulatory Orders* Referral to Gastroenterology Time Frame: 11/26/23, Location: [facility] Work Phone: Progress note No data available for this section [facility] reason for referral (narrative)* Outpatient Procedure (Routine) - Pending Review Specialty Diagnoses / Procedures Referred By Contac t Referred To Contact [facility] Diagnoses Pancreatic cyst Procedures EGD - THERAPEUTIC, EUS, OR TUBE INTERVENTIONS EGD INTRMURAL US NEEDLE ASPIRATE/[place] [address] [place] [address] [facility] [address] [place] [address] Referral ID Status Reason Start Date Expiration Date Visits Requested Visits Authorized [id number] Pending Review Auto-Generat ed Referral 12/19/2023 12/18/2024 1 1 [facility] for referral (narrative)* Outpatient Procedure (Routine) - Closed Specialty Diagnoses / Procedures Referred By Contac t Referred To Contact Diagnoses Pancreatic cyst Procedures EGD - THERAPEUTIC, EUS, OR TUBE INTERVENTIONS EGD INTRMURAL US NEEDLE ASPIRATE/[place] [address] [place] [address] [facility] [address] [place] [address] Referral ID Status Reason Start Date Expiration Date V isits Requested Visits Authorized [id number] Closed Auto-Generate d Referral 02/14/2024 04/11/2024 1 1 [facility] for referral (narrative)No reason for referral [facility] Work Phone: Reason for visit NarrativePAIN MANAGEMENT REFERRAL UPDATENode[facility] Other reason for visit Narrative* Outpatient Procedure (Routine) - Closed Specialty Diagnoses / Procedures Referred By Contac t Referred To Contact Diagnoses Pancreatic cyst Procedures EGD - THERAPEUTIC, EUS, OR TUBE INTERVENTIONS EGD INTRMURAL US NEEDLE ASPIRATE/[place] [address] [place] [address] [address] [address] [place] [address] Referral ID Status Reason Start Date Expiration Date V isits Requested Visits Authorized [id number] Closed Auto-Generate d Referral 02/14/2024 04/11/2024 1 1 [facility] Chief Complaint and Reason for Visit Chief Complaint Constipation, Abdomi nal Pain Chief Complaint Vaginal discharge Chief Complaint K86.2 Chief Complaint K86.2 dysuria Chief Complaint flank pain, dysuria Z87.81 Chief Complaint 4 Wk F/U Comp Fx Amb Documentation medication review Chief Complaint 4 Wk F/U Comp Fx Amb Documentation medication review Dysuria Chief Complaint Amb Documentation medication review R30.0 mental health issues [phone] head and chest cold since wed Reason for Visit Anxiety Right femoral fracture UTI (urinary tract infection) Vertebral compression fracture Fibromyalgia Anxiety COPD exacerbation Chief Complaint mental health issues [phone] head and chest cold since wed 3 [...] Dysuria R30. January 16, 2024 4 :21pm March 19, 2024 12 :00pm 3 month [...] Procedures IR VERTEBROPLASTY EACH ADDITIONAL Gabby Lo, SENIOR JAVA DEVELOPER - OFFSET PRESSMAN [address] [address] Referral ID Status Reason Start Date Expiration Date Visits Re quested Visits Authorized [id number] Open 05/29/2023 05/28/2024 1 1 Specialty Diagnoses / Procedures Referred By Costa macdonald Referred To Contact Radiology Diagnoses Compression fracture of T12 vertebra with delayed healing, subsequent encounter Other osteoporosis with current pathological fracture, vertebra(e), initial encounter for fracture (HCC) Procedures IR VERTEBROPLASTY CERVICOTHORACIC Gabby Lo, SENIOR JAVA DEVELOPER - OFFSET PRESSMAN [address] [facility] [address] [place] [address] Referral ID Status Reason Start Date Expiration Date Visits Re quested Visits Authorized [id number] Open 05/29/2023 05/28/2024 1 1 Reason evaluate and treat f or compression fracture Diagnosis 1 Compression fracture of T11 vertebra with delayed healing, subsequent encounter (S22.080G) Referral Organization [facility] Referring Provider First Name Ana Referring Provider Last Name Julio Referring Provider Specialty Nurse Pract itioner Referred Organization [facility] Referred Address [address] [place] [address] ,[place], [place],[address] Referred Provider Specialty Intervention al Radiology Referral Priority Routine Reason evaluate and treat Diagnosis 1 Compression fracture of T11 vertebra with delayed healing, subsequent encounter (S22.080G) Referral Organization [facility] urosurger Referring Provider First Name Ana Referring Provider Last Name Julio Referring Provider Specialty Nurse Pract itioner [facility] Referred Address [address] [place],[address] Referred Provider Specialty DME Referral Priority Routine Reason evaluate and kwasi at Diagnosis 1 Age-related osteopor osis with current pathological fracture, initial encounter (M80.00XA) Referral Organization [facility] urosurger Referring Provider First Name Ana Referring Provider Last Name Julio Referring Provider Specialty Nurse Karlat itkurt Referred Organization [facility] Pain Managemen t Referred Provider Christo Lobo Referred Address [address] [facility] ,[place],[address] Referred Provider Specialty Pain Medicin e Referral Priority Routine General Notes Rebeca Pleitez 11:19:46 AM >received today, patient did just have MRI ordered but has already had CT of the Lumbar spine completed. Sending p2p at this time for scheduling Reason evaluate and kwasi at Diagnosis 1 Age-related osteopor osis with current pathological fracture, initial encounter (M80.00XA) Referral Organization [facility] Referring Provider First Name Ana Referring Provider Last Name Julio Referring Provider Specialty Nurse Jose gentiler Referred Organization [facility] Ortho pedics Referred Provider Rebeca Munguia Referred Address [address] [place], [place],[address] Referred Provider Specialty Nurse Virgil stone Referral Priority Routine General Notes Rebeca Pleitez 02:57:56 PM >received today, sending p2p at this time for scheduling Reason 01/23/23 Aleksey off ice - lumbar compression fracture - imaging at [facility] Diagnosis 1 Compression fracture of lumbar vertebra, unspecified lumbar vertebral level, initial encounter (S32.000A) Referral Organization [facility] Referring Provider First Name Nettie Referring Provider Last Name Farida Referring Provider Specialty Family Medi cine Referred Organization [facility] Referred Provider Robin Flannery Referred Address ,[place], [place],[address] Referred Provider Specialty Orthopedic S urgery Referral [...] - lumbar compression fracture - imaging at [facility] Diagnosis 1 Compression fracture of lumbar vertebra, unspecified lumbar vertebral level, initial encounter (S32.000A) Referral Organization [facility] marcell Referring Provider First Name Nettie Referring Provider Last Name Farida Referring Provider Specialty [facility] Referred Organization [facility] Referred Provider Robin Flannery Referred Address ,[place], [place],[address] Referred Provider Specialty Orthopedic S urgery Referral [...] (HCC) Procedures IR VERTEBROPLASTY CERVICOTHORACIC Gabby Lo, SENIOR JAVA DEVELOPER - OFFSET PRESSMAN [address] [facility] [address] [place] [address] Referral ID Status Reason Start Date Expiration Date Visits Re quested Visits Authorized [id number] Open 05/29/2023 05/28/2024 1 1 Reason Comments [...] Nettie Iqbal MD Attending Provider Active [facility] Primary Care Provider Active Team Status: Inactive Member Role Status Dates Nettie Iqbal MD Primary Care Provider Active ANUSHKA Felder Attending Provider Active Contact Lens Blocker And Cutter Relationship Specialty Start Date End Date Nettie Iqbal MD [address] [place] [address] PCP - General Family Medicine 06/13/23 Team [...] November 26, 2023 End: November 26, 2023 Contact Lens Blocker And Cutter Relationship Specialty Start Date End Date Nettie Iqbal MD [address] [place] [address] PCP - General Family Medicine 11/30/23 Contact Lens Blocker And Cutter Relationship Specialty Start Date End Date Nettie Iqbal MD [address] [place] [phone] PCP - General Family Medicine 11/30/23 Team [...] Attending Provider Active Start: January 03, 2024 Contact Lens Blocker And Cutter Relationship Specialty Start Date End Date Nettie Iqbal MD [address] [place] [address] PCP - General Family Medicine 11/30/23 Contact Lens Blocker And Cutter Relationship Specialty Start Date End Date Nettie Iqbal MD [address] [place] [address] PCP - General Family Medicine 11/30/23 Contact Lens Blocker And Cutter Relationship Specialty Start Date End Date Nettie Iqbal MD [address] [place] [address] PCP - General Family Medicine 11/30/23 Contact Lens Blocker And Cutter Relationship Specialty Start Date End Date Nettie Iqbal MD [address] [place] [address] PCP - General Family Medicine 11/30/23 Contact Lens Blocker And Cutter Relationship Specialty Start Date End Date Nettie Iqbal MD [address] [place] [address] PCP - General Family Medicine 11/30/23 Team Status: Inactive Member Role Status Dates Nettie Iqbal MD Primary Care Provider Active Start: July 05, 2024 End: July 05, 2024 Horacio Erwin MD Attending Provider Active S tart: July 05, 2024 End: July 05, 2024 Contact Lens Blocker And Cutter Relationship Specialty Start Date End Date Nettie Iqbal MD [address] [place] [address] PCP - General Family Medicine 11/30/23 Team Status: Active Member Role Status Dates Everett Dunlap Specialist Active Nettie Iqbal MD Primary Care Provider Active Team Status: Active Member Role Status Dates Nettie Iqbal MD Primary Care Provider Active Start: August 21, 2024 Jaymie Duncan , FOAM MOLDER-C Attending Provider Active St art: August 21, [...] DATE CREATED AUTHOR AUTHOR'S ORGANIZ ATION 12/27/2022 [facility] DATE CREATED AUTHOR AUTHOR'S ORGANIZ ATION 01/29/2023 [facility] DATE CREATED AUTHOR AUTHOR'S ORGANIZ ATION 06/14/2023 [facility] DATE CREATED AUTHOR AUTHOR'S ORGANIZ ATION 06/19/2023 [facility] DATE CREATED AUTHOR AUTHOR'S ORGANIZ ATION 03/25/2024 [facility] DATE CREATED AUTHOR AUTHOR'S ORGANIZ ATION 07/06/2024 [facility] DATE CREATED AUTHOR AUTHOR'S ORGANIZ ATION 07/23/2024 [facility] DATE CREATED AUTHOR AUTHOR'S ORGANIZ ATION 11/08/2024 [facility] Source Comments (unrecognize d section and content) In the event this informatio n is protected by the Federal Confidentiality of Alcohol and Drug Abuse Patient Records regulations: The Federal rules restrict any use of the information to criminally investigate or prosecute any alcohol or drug abuse patient.[facility] the event this information is protected by the Federal Confidentiality of Alcohol and Drug Abuse Patient Records regulations: The Federal rules restrict any use of the information to criminally investigate or prosecute any alcohol or drug abuse patient.[facility] the event this information is protected by the Federal Confidentiality of Alcohol and Drug Abuse Patient Records regulations: The Federal rules restrict any use of the information to criminally investigate or prosecute any alcohol or drug abuse patient.[facility] the event this information is protected by the Federal Confidentiality of Alcohol and Drug Abuse Patient Records regulations: The Federal rules restrict any use of the information to criminally investigate or prosecute any alcohol or drug abuse patient.[facility] the event this information is protected by the Federal Confidentiality of Alcohol and Drug Abuse Patient Records regulations: The Federal rules restrict any use of the information to criminally investigate or prosecute any alcohol or drug abuse patient.[facility] the event this information is protected by the Federal Confidentiality of Alcohol and Drug Abuse Patient Records regulations: The Federal rules restrict any use of the information to criminally investigate or prosecute any alcohol or drug abuse patient.[facility] the event this information is protected by the Federal Confidentiality of Alcohol and Drug Abuse Patient Records regulations: The Federal rules restrict any use of the information to criminally investigate or prosecute any alcohol or drug abuse patient.[facility] the event this information is protected by the Federal Confidentiality of Alcohol and Drug Abuse Patient Records regulations: The Federal rules restrict any use of the information to criminally investigate or prosecute any alcohol or drug abuse patient.[facility] the event this information is protected by the Federal Confidentiality of Alcohol and Drug Abuse Patient Records regulations: The Federal rules restrict any use of the information to criminally investigate or prosecute any alcohol or drug abuse patient.[facility] the event this information is protected by the Federal Confidentiality of Alcohol and Drug Abuse Patient Records regulations: The Federal rules restrict any use of the information to criminally investigate or prosecute any alcohol or drug abuse patient.[facility] FOR RECORDS PERTAINING TO PATIENTS WHO ARE [...] BE BASED ON THE PRIMARY CLINICAL RECORDS. [facility]. provides no warranty or guarantee of the accuracy or completeness of information in this document.
[2024-11-17 11:11] VITALS: BP 129/79; PULSE 65; TEMP 36.4; O2SAT 95
[2024-11-17 11:57] VITALS: PULSE 66; O2SAT 96
[2024-11-17 11:58] VITALS: BP 135/63
[2024-11-17 11:59] VITALS: BP 131/63; PULSE 63; O2SAT 98
[2024-11-17] MEDS: LIDOCAINE HCL 2% 400 MG/20 ML MDV 8 ML INJ (12:00)
[2024-11-17] MEDS: DEXAMETHASONE SOD PHOS 10 MG/ML VIAL INJ (12:00)
[2024-11-17] MEDS: BUPIVACAINE HCL 0.25% PF 25 MG/10 ML VIAL 2 ML INJ (12:00)
--- NOTE | 2024-11-17 12:11 | P.ON_ITS ---
Date of procedure: 11/17/24 Pre-op diagnosis: Pain due to thoracic spondylosis without myelopathy Post-op diagnosis: same as pre-op Procedure: Procedure: Left T7-8, 8-9 radiofrequency ablation Medications: Bupivacaine 0.25% 2cc, dexamethasone 10mg, lidocaine 2% 4cc The patient was seen and examined in the preoperative holding area.? The site was marked.? Written informed consent was obtained and placed on the chart.? The patient was brought to the medical procedure unit and placed in the prone position.? A timeout was completed verifying correct patient, procedure, positioning, and special requirements.? The skin overlying the target points, the designated medial branch, was prepped and draped in the usual sterile fashion.? The target point was achieved with a 20-gauge 15 cm with a 10 mm curved active tip radiofrequency cannula under direct fluoroscopic visualization.? The needle was inserted at level T7 on the left side. Needle tip position was confirmed with lateral fluoroscopic position.? Motor stimulation was carried out at 2 Hz up to 5 volts with the absence of extremity activity.? This was repeated at level T8, 9 on left side.?? Sensory stimulation was carried out.? Concordant pain was realized at the above- mentioned sites.? Then radiofrequency lesioning was carried out times 90 seconds at 80 degrees times 2 lesions at each level.? The radiofrequency probe was removed prior to cannula removal.? The above-mentioned injectate was placed in 1 mL increments.? The needle was removed.? Insertion sites were covered.? The patient was taken to the postoperative recovery area and monitored for an appropriate length of time before being found suitable for discharge in the company of a responsible adult. Anesthesia: Local Surgeon: Vickey Beasley Pathology: none sent Condition: stable Disposition: no change
== END 2024-11-17 12:17 | disposition home or self-care (01) ==
LOC: SURGOUT 10:38
PROVIDERS: PCP Family Medicine; Visit Provider Anesthesiology
DX: M47.814 Spondylosis without myelopathy or radiculopathy, thoracic region (principal); M54.6 Pain in thoracic spine
CPT/HCPCS: 64633; 64634; J0665; J1100

== ENCOUNTER 2024-12-11 09:34 | Outpatient (OUT) | payer MEDICARE, SELFPAY ==
--- OUTSIDE RECORDS SUMMARY | 2024-12-11 09:37 | XMS_ITS | Clinical Summary ---
Author Organization [facility] Address [address] [facility], [address] [place] [address] Care Team Providers Care Kettle Firer Name Role Phone Yolanda Chavez MD Primary Care Provider [phone] Allergies Active Allergy Reactions Criticality Noted Date [...] Shingles vaccine (2 of 3) 12/13/2016 10/18/2016, Annual Wellness Visit (Medicare Advantage) 03/12/2024 Flu vaccine (#1) 10/10/2024 10/24/2022, , 11/28/2021, Additional history exists COVID-19 Vaccine (2024- season) 2024 01/31/2021, 07/30/2020, 07/09/2020 Respiratory Syncytial Virus (RSV) or age 60 [...] this topic Medical Devices Implanted Type Area Family Partner Device Identifier Shelf Expiration Date Model / Serial / Lot Cement Bne 20 Gm Hi Visc Radiopaque Vertaplex Hv - [id number] Implanted:Qty: 1 on 06/15/2023 by Ricardo Carbajal MD at [facility] Cement Back JENNIFER MICHELL-WD 11/09/2024 [id number] / / [id number] Description:Thoracic 11 & th oracic 12 Insurance [facility] MEDICARE Care Teams Kettle Firer Relationship Specialty Start Date End Date Yolanda Chavez MD [address] [place] [address] PCP - General Family Medicine 06/13/23
--- OUTSIDE RECORDS SUMMARY | 2024-12-11 09:37 | XMS_ITS | Clinical Summary ---
Author Organization [facility] tem Address [id number] [place] [address] Care Team Providers Care Tugboat Dispatcher Name Role Phone Raj Phani Liza HAWK Primary Care Provider [phone] Allergies Active Allergy Reactions Criticality Noted Date [...] Most Recently Relevant to Health Maintenance Insurance [facility] MEDICARE Care Teams Tugboat Dispatcher Relationship Specialty Start Date End Date Phani Anthony DO [address] [place] [address] PCP - General 09/21/17
--- OUTSIDE RECORDS SUMMARY | 2024-12-11 09:37 | XMS_ITS | Clinical Summary ---
Author Organization [facility] Address [address] [place] [address] Phone Care Team Providers Care Furnace And Wash Equipment Operator Name Role Phone Unavailable Primary Care Provider [...] 12/13/2016 10/18/2016, 04/12 Bone Density Scan 06/03/2020 Pneumococcal Vaccine (3 of 3 - PCV20 or PCV21) 09/18/2024 09/19/2019, 01/18/2013, 10/25/2011, Additional history exists COVID-19 Vaccine (4 - 2024- season) 2024 01/31/2021, 07/30/2020, 07/09/2020 Influenza Vaccine (#1) 2024 3, 12/24/2021, 11/28/2021, [...]
--- OUTSIDE RECORDS SUMMARY | 2024-12-11 09:37 | XMS_ITS | Clinical Summary ---
Author Organization [facility] Address [address] [place] [address] Care Team Providers Care Business Rules Analyst Name Role Phone Yolanda Chavez MD Primary Care Provider [phone] Allergies Active Allergy Reactions Criticality Noted Date Comments Cefdinir Other: See Comments 06/22/2023 Ibuprofen Unknown 06/22/2023 Nsaids (Non-Steroidal Anti-Inflammatory Drug) Other: See Comments 05/15/2023 Other Reaction(s): diarrhea, itching and rash Rhfpame-Bmq-Azu Reductase Inhibitors Unknown 01/23/2023 Other Reaction(s): Unknown [...] is lower risk 4 12/19/2023 Data from: https://www.neighborhoodatlas.medicine.[facility].edu/. Last address used for calculation [address] [...] Additional history exists Diabetes Screening 06/12/2026 06/13/2023 Insurance [facility] MEDIC[facility] Care Teams Business Rules Analyst Relationship Specialty Start Date End Date Yolanda Chavez MD [address] [place] [address] PCP - General Family Medicine 11/30/23
--- OUTSIDE RECORDS SUMMARY | 2024-12-11 09:37 | XMS_ITS | Patient Health Record ---
Author Organization [facility] Address [address] [place] [address] Care Team Providers Care Nurse Behavioral Health Care Name Role Phone Jayesh Hummel MD Primary Care Provider Paco Romeo Unavailable [phone] Allergies Allergen (clinical drug ingredient) Drug/Non Drug [...] Problem Status W/U Status Risk Notes Problem [id number] Closed fracture of right tibial plateau, initial encounter (S82.141A) Active confirmed Problem [id number] Closed disp bicondylar fracture of right tibia with routine healing (S82.141D) Active confirmed Plan Of Treatment Pending Test Test Name Order Date DME TROM brace 12/04/2022 Insurance Providers Payer Name Payer Address Payer Phone Subscriber Number Group Number Insured Name Patient Relationship to Insured Coverage Start Date Coverage End Date Medicare [employer] [address] [address] [place] [address] [id number] TYRESE GUTIERRES Self - patient is the [...]
--- OUTSIDE RECORDS SUMMARY | 2024-12-11 09:37 | XMS_ITS | Encounter Summary ---
Author Organization [facility] Address [address] [place] [address] Phone Care Team Providers Care National Flatbed Truck Driver Name Role Phone Unavailable Primary Care Provider Unavailabl e Encounter Details Date Type Department Care Team (Late st Contact Info) Description 12/01/2022 Scanned Document [facility] [address] [place] [address] Conversion, Onbase Social History Tobacco Use Types [...]
--- OUTSIDE RECORDS SUMMARY | 2024-12-11 09:37 | XMS_ITS | Clinical Summary ---
Author Organization [facility] Address [address] [place] [address] Care Team Providers Care Actimize Architect Name Role Phone Yolanda Chavez MD Primary Care Provider [phone] Allergies Active Allergy Reactions Criticality Noted Date [...] 25 MG tablet 3 Active HYDROcodone-richelle taminophen ([place]win) 10-325 MG tablet Take 1 tablet by [...] , 12/24/2021, 11/28/2021, Additional history exists Insurance [facility] MEDICARE ADVANTAGE Care Teams Actimize Architect Relationship Specialty Start Date End Date Yolanda Chavez MD PCP - General Family Medicine 11/22/22
--- OUTSIDE RECORDS SUMMARY | 2024-12-11 09:37 | XMS_ITS | Encounter Summary ---
Author Organization [facility] Address [address], [address] [place] [address] Care Team Providers Care Recreation Worker Name Role Phone Yolanda Chavez MD Primary Care Provider [phone] Encounter Details Date Type Department Care Team (Late st Contact Info) Description 06/18/2023 Telephone HandMinder Special Procedure [address] [place], [place] [id number] Jacque Estevez RN Social History Tobacco Use [...] on filedocumented in this encounter Care Teams Recreation Worker Relationship Specialty Start Date End Date Yolanda Chavez MD [address] [place] [address] PCP - General Family Medicine 06/13/23 documented as of this encounter
--- NOTE | 2024-12-11 09:42 | PM.CN ---
Consult Note: HPI Data of Consult Patient: known to practice within the last 3 years Requesting Physician: Jaymie Duncan NP Primary Care Provider: Yolanda Chavez MD Consult Narrative Reason for consult: back pain Narrative: Afia Maxwell a pleasant 69 year old female presents for evaluation of chronic back pain unresponsive to > 6 weeks of PT/HEP, heat, ice, tylenol, NSAIDs. utilizing baclofen 10mg TID with benefit, denies side effects. also utilizing norco 5-325mg TID, lyrica 150mg BID, lexapro through PCP. Pt noting new onset right knee pain as she recently twisted her knee, has been utilizing knee brace. Pt recently underwent right and left T7-8 T8-9 RFA with 50% improvement ongoing. Pt moving at this time, will be living with her son. denies falls since last visit, continues to utilize wheeled walker. cc:: CC: Jaymie Duncan NP Review of Systems ROS Musculoskeletal Reports: back pain, extremity pain and joint pain PFSH [facility] Medical History (Updated 09/04/24 @ 13:27 by Jaymie Duncan NP) Fall ?W19.XXXA - Unspecified fall, initial encounter (ICD-10) Fracture, tibia ?S82.209A - Unspecified fracture of shaft of unspecified tibia, initial encounter for closed fracture (ICD-10) Compression fracture Compression fracture of lumbar vertebra with routine healing ?S32.000D - Wedge compression fracture of unspecified lumbar vertebra, subsequent encounter for fracture with routine healing (ICD-10) Compression fracture of thoracic vertebra with routine healing ?S22.000D - Wedge compression fracture of unspecified thoracic vertebra, subsequent encounter for fracture with routine healing (ICD-10) Dyslipidemia ?E78.5 - Hyperlipidemia, unspecified (ICD-10) Venous insufficiency ?I87.2 - Venous insufficiency (chronic) (peripheral) (ICD-10) Chronic bronchitis with productive mucopurulent cough ?J41.1 - Mucopurulent chronic bronchitis (ICD-10) Cervical spondylosis ?M47.812 - Spondylosis without myelopathy or radiculopathy, cervical region (ICD-10) Osteoporosis ?M81.0 - Age-related osteoporosis without current pathological fracture (ICD-10) COPD (chronic obstructive pulmonary disease) ?J44.9 - Chronic obstructive pulmonary disease, unspecified (ICD-10) Hypoxia ?R09.02 - Hypoxemia (ICD-10) Thoracic spondylosis ?M47.814 - Spondylosis without myelopathy or radiculopathy, thoracic region (ICD-10) Lumbar spondylosis ?M47.816 - Spondylosis without myelopathy or radiculopathy, lumbar region (ICD-10) Pneumothorax ?J93.9 - Pneumothorax, unspecified (ICD-10) Hepatitis ?K75.9 - Inflammatory liver disease, unspecified (ICD-10) GI bleed ?K92.2 - Gastrointestinal hemorrhage, unspecified (ICD-10) Upper back pain ?M54.9 - Dorsalgia, unspecified (ICD-10) Neck pain ?M54.2 - Cervicalgia (ICD-10) Low back pain ?M54.50 - Low back pain, unspecified (ICD-10) Osteoarthritis ?M19.90 - Unspecified osteoarthritis, unspecified site (ICD-10) Anxiety ?F41.9 - Anxiety disorder, unspecified (ICD-10) TIA (transient ischemic attack) ?G45.9 - Transient cerebral ischemic attack, unspecified (ICD-10) Diverticulitis ?K57.92 - Diverticulitis of intestine, part unspecified, without perforation or abscess without bleeding (ICD-10) Irritable bowel ?K58.9 - Irritable bowel syndrome without diarrhea (ICD-10) Ulcerative colitis ?K51.90 - Ulcerative colitis, unspecified, without complications (ICD-10) Hiatal hernia ?K44.9 - Diaphragmatic hernia without obstruction or gangrene (ICD-10) Acid reflux ?K21.9 - Gastro-esophageal reflux disease without esophagitis (ICD-10) Chronic cough ?R05.3 - Chronic cough (ICD-10) Former smoker ?Z87.891 - Personal history of nicotine dependence (ICD-10) COPD (chronic obstructive pulmonary disease) ?J44.9 - Chronic obstructive pulmonary disease, unspecified (ICD-10) Emphysema lung ?J43.9 - Emphysema, unspecified (ICD-10) Angina at rest ?I20.8 - Other forms of angina pectoris (ICD-10) Surgical History H/O carpal tunnel repair ?Z98.890 - Other specified postprocedural states (ICD-10) H/O kyphoplasty ?Z98.890 - Other specified postprocedural states (ICD-10) History of hysterectomy ?Z90.710 - Acquired absence of both cervix and uterus (ICD-10) Family History Mother Family history of CHF (congestive heart failure) Family history of COPD (chronic obstructive pulmonary disease) Family history of diabetes mellitus Family history of stroke Grandmother Family history of cancer Family history of diabetes mellitus Social History Within the past year, how often did you have a drink containing alcohol: never Within the past year, how many standard drinks containing alcohol did you have on a typical day: 1 or 2 Within the past year, how often did you have six or more drinks on one occasion: never Total score: 0 Score interpretation: A score less than 3 is consistent with normal alcohol consumption. Smoking status: Former smoker Non-prescribed substance use: denies use Previous occupational history: retired Highest level of school completed/degree received: high school graduate Are you now , , , , never or living with a partner: In a typical week, how many times do you talk on the telephone with family, friends, or neighbors: 3 or more times per week How often do you get together with friends or relatives: 3 or more times per week How often do you attend religious or worship services: never Do you belong to any clubs or organizations such as religious groups unions, fraternal or athletic groups, or school groups: no Total score: 1 Score interpretation: A score of less than or equal to 1 indicates the most socially isolated. Little interest or pleasure in doing things: not at all Feeling down, depressed, or hopeless: not at all Feel stressed/tense/nervous/anxious/difficulty sleeping: not at all Do you think of yourself as: straight/heterosexual Gender Identity: female Meds Home Medications and Allergies Home Medications ?Medication ?Instructions ?Recorded ?Confirmed ?Type albuterol sulfate 90 mcg/actuation 2 inh inhalation Q4H PRN shortness 09/06/22 11/17/24 History aerosol inhaler of breath or wheezing dicyclomine 20 mg tablet 20 mg PO QID 09/06/22 11/17/24 History hydrocodone 5 mg-acetaminophen 325 1 tab PO TID PRN pain 09/06/22 11/17/24 History mg tablet pantoprazole 40 mg tablet,delayed 40 mg PO DAILY 09/06/22 11/17/24 History release trazodone 50 mg tablet 200 mg PO BEDTIME PRN sleep 09/06/22 11/17/24 History escitalopram oxalate 10 mg tablet 10 mg PO DAILY 01/13/23 11/17/24 History (Lexapro) pregabalin 150 mg capsule (Lyrica) 150 mg PO BID 01/13/23 11/17/24 History ibandronate 150 mg tablet 150 mg PO .monthly 08/07/24 11/17/24 History baclofen 10 mg tablet 10 mg PO TID PRN muscle spasm #90 10/23/24 11/17/24 Rx tabs diazepam 5 mg tablet (Valium) 5 mg PO DAILY PRN preop 11/03/24 11/17/24 History Allergies Allergy/AdvReac Type Severity Reaction Status Date / Time sulfamethoxazole (From Allergy Mild Diarrhea Verified 11/17/24 11:16 Bactrim) trimethoprim (From Bactrim) Allergy Mild Diarrhea Verified 11/17/24 11:16 ketorolac (From Toradol) Allergy Unknown Verified 11/17/24 11:16 NSAIDS (Non-Steroidal Allergy Unknown Verified 11/17/24 11:16 Anti-Inflamma rofecoxib (From Vioxx) Allergy Unknown Verified 11/17/24 11:16 varenicline (From Chantix) Allergy Unknown Verified 11/17/24 11:16 Exam Constitutional Documenting provider has reviewed patient's vital signs: yes Common normals: no apparent distress, oriented x3, healthy appearing, alert and well nourished General appearance: cooperative [facility] Common normals: normocephalic, hearing grossly normal bilaterally and moist oral mucous membranes Head and scalp: normocephalic Eye Common normals: PERRL Pupil: PERRL Neck & C-Spine Common normals: full ROM General: normal visual inspection Chest Common normals: inspection of chest normal Respiratory Common normals: normal respiratory effort, no retractions and no use of accessory muscles Neuro Common normals: oriented x3 Sensorium/orientation: alert Psych Common normals: mental status grossly normal, thought process normal, cooperative, affect normal, speech normal and activity/motor behavior normal Speech: normal speech Thought process: normal thought process Results Additional Findings Additional findings: If on a controlled substance or opioids, I have checked an [place] report on this patient and there are no aberrancies noted in the prescribing history.??If on a controlled substance or opioid a drug screen was completed and reviewed within the last year, and if there has not been a drug screen completed we ordered one today to monitor higher risk, state monitored pain medication use. As part of providing excellent, safe, comprehensive care, the following was completed at our patient's visit: 1. A medication reconciliation and review to ensure accurate knowledge of current/active medications, including asking our patients to inform us about any [id number] medications or herbal remedies/nutritional supplements/alternative remedies. 2. A review to specifically ensure our patients have had annual screening for screening for depression, screening for tobacco use, and screening for unhealthy alcohol use. For concerning screenings had a discussion with the patient, provided patient education, and recommended follow-up with primary care provider when appropriate. If patient noted with a risk of falling, they received education on strength, gait, and balance training to prevent future risk of falling. Portions of this note may have been carried over from the previous visit and updated as appropriate. Please note this office utilizes paper charting in addition to the electronic medical record. A list of current medications, vitals, and PMH is available there as the clinical staff outside of myself do not have access to [employer] charting during the clinic day operations. As part of providing quality comprehensive care the current medications, vitals, and PMH were reviewed in the paper chart. Assessment and Plan Assessment and Plan (1) Thoracic spondylosis: (2) Thoracogenic scoliosis, thoracolumbar region: (3) Failed back syndrome: Plan continue baclofen 10mg TID PRN encouraged rest, ice, compression, elevation of right knee. pt advised to f/u with PCP if pain persists continue to utilize wheeled walker f/u 2-3 months to evaluate pain
== END 2024-12-11 09:35 | disposition home or self-care (01) ==
LOC: PM 09:35
PROVIDERS: PCP Family Medicine; Visit Provider Nurse Practitioner
DX: M47.814 Spondylosis without myelopathy or radiculopathy, thoracic region (principal); M41.35 Thoracogenic scoliosis, thoracolumbar region; M96.1 Postlaminectomy syndrome, not elsewhere classified
CPT/HCPCS: G0463

== ENCOUNTER 2024-12-24 13:52 | Outpatient (OUT) | payer MEDICARE, SELFPAY ==
--- OUTSIDE RECORDS SUMMARY | 2024-12-22 09:51 | XMS_ITS | Continuity of Care Document ---
Author Organization [facility] Address [address] [place] [address] Phone Care Team Providers Care International Broadcast Music Librarian Name Role Phone Yolanda Chavez MD Primary Care Provider Yolanda Chavez MD Attending Provider [phone] Obed Lima APRN Attending Provider Care Teams Patient Care Team [...] September 23, 2024 End: September 23, 2024 Visit Care Team Team Status: Inactive Member Role Status Dates Yolanda Chavez MD Primary Care Provider Active Start: October 01, 2024 End: October 01, 2024 Obed Lima APRN Attending Provider Active Start: October 01, 2024 End: October 01, 2024 Patient Care Team Team Status: Inactive Member Role Status Dates Yolanda Chavez MD Primary Care Provider Active Start: December 22, 2024 End: December 22, 2024 Yolanda Chavez MD Attending Provider Active St art: December 22, 2024 End: December 22, 2024 Chief Complaint and Reason for Visit Chief Complaint Admit Date 3 month f/u September 23, 2024 1:03 pm follow up constipation October 01, 2024 1 :09pm 3 month f/u December 22, 2024 1 :02pm Reason for Visit Admit Date Anxiety September [...] marilynn 2024 1:09pm Opioid-induced constipation October 01, 025 1:09pm Pancreatic lesion October 01, 2024 1:09 pm Anxiety December 22, 2024 1 :02pm Bilateral lower extremity edema December 22, 2024 1:02pm Chronic thoracic back pain December 22, 2024 1:02pm Pancreatic lesion December 22, 2024 1 :02pm Right femoral fracture December 22 1:02pm Vertebral compression fracture December 102024 1:02pm Chronic back pain December 22, 2024 1 :02pm COPD (chronic obstructive pulmonary dise ase) December 22, 2024 1:02pm Fibromyalgia December 22, 2024 1 :02pm Allergies, Adverse Reactions, Alerts Allergen Type Severity Reaction Last Updated Verified Status Comments cefdinir Allergy Unknown frequent watery stools, et thrush December 22, 2024 1:07pm Yes Active ibuprofen Allergy Unknown Hives December 22, 2024 1:07pm Yes Active ketorolac Allergy Unknown Diarrhea December 22, 2024 1:07pm Yes Active mannitol Allergy Unknown Comment:Bon e pain December 22, 2024 1:07pm Yes Active simvastatin Allergy Unknown Hives December 22, 2024 1:07pm Yes Active Broxxxa-CRU-QoA Reductase Inhibitor Allergy Unknown Diarrhea December 22, 2024 1:07pm Yes Active sulfamethoxazole Allergy Unknown Hives December 22, 2024 1:07pm Yes Active trimethoprim Allergy Unknown Hives December 22, 2024 1:07pm Yes Active varenicline Allergy Unknown Muscle Pain December 22, 2024 1:07pm Yes Active water for injection,sterile Allergy Unknown Comment:Bon e pain December 22, 2024 1:07pm Yes Active zoledronic acid Allergy Unknown Comment:Bon e pain December 22, 2024 1:07pm Yes Active ibandronate sodium Allergy Unknown bone pain Octobe r 2024 1:07pm Yes Active NSAIDS (Non-Steroidal Anti-Inflamma Allergy Unknown Diarrhea December 22, 2024 1:07pm Yes Active rofecoxib Allergy Unknown Migraine December 22, 2024 1:07pm Yes Active Toradol *ANALGESICS - ANTI-INF Allergy Unknown Hives June 21, 2023 5:15pm No Active Free Text Allergy: Toradol *ANALGESIC S - ANTI-INFLA MMATORY*; Onset Date: 06/29/2014 vioxx, antiinflammatories Allergy Unknown Hives June 21, 2023 5:15pm No Active Social History Smoking Status Status Start Date End Date Date of Observa tion Current some day smoker Angel larson 2023 3:57pm Observation Status Observation Response Date [...] Active UTI (urinary tract infection) Unknown Active Bilateral lower extremity edema Unknown Active Opioid-induced constipation Unknown Active Anemia Unknown Active Anxiety Unknown Active Problem List cl kerrie-up per request of Phys. EHR Cmte Depression Unknown Active Dyspepsia Unknown Active Fibromyalgia Unknown Active Ileus Unknown [...] Pantoprazol e 40 mg tablet,selam yed release (/EC) Discont inued 40 MG PO Daily 30 30 2023 1:00am 2023 9:33a m Take 1 tablet orally [...] daily as needed for anxiety 90 30 May 28, 2023 9:58am June 24, 2023 9:41p m Ibandronate 150 mg tablet Discont inued 0 .ROUTE .COMPLEX 3 May 28, 2023 9:59am August 22, 2023 [...] 20 MG PO Four times daily 120 May 30, 2023 12:00a m June 05, 2023 1:16p m Take 1 tablet orally four times a day Hydrocodone -Acetaminop hen 5-325 mg tablet Discont inued 1 TAB PO Every 6 hours as needed for pain 28 June 19, 2023 June 22, 2023 1:37p [...] mg tablet Discont inued 0 .ROUTE .COMPLEX August 22, 2023 11:54a m Septe mber 2023 2:40p m take 1 tablet by mouth EACH MONTH 60 MINUTES BEFORE THE FIRST FOOD,BEVERAGE OR MEDICINE OF THE DAY WITH PLAIN WATER Pregabalin (Lyrica) 150 mg capsule Discont inued 150 MG PO Twice daily 60 August 22, 2023 11:54a m September 24, 2023 1:34p m Escitalopra m Oxalate 10 mg tablet Discont inued 0 .ROUTE .COMPLEX October 10, 2023 8:36am Augus t 2023 8:28a m take 1 tablet by mouth once daily Linaclotide (Linzess) 290 mcg capsule Discont inued 290 MCG PO Daily October 23, 2023 12:00a m [facility] 2023 9:39a m Hydrocodone -Acetaminop hen 5-325 mg tablet Discont inued 1 TAB PO Every 8 hours as needed for pain 90 October 24, 2023 Augus t 2023 7:52a m Pregabalin (Lyrica) 150 mg capsule Discont inued 150 MG PO Twice daily 60 October 24, 2023 10:32a m [facility] 2023 12:47 pm Hydrocodone -Acetaminop hen 5-325 mg tablet Discont inued 0 .ROUTE .COMPLEX 90 October 26, 2023 [facility] 2023 12:52 pm TAKE 1 TABLET BY MOUTH EVERY 8 HOURS NEEDED FOR PAIN FOR 30 DAYS Escitalopra m Oxalate 10 mg tablet Discont inued 0 .ROUTE .COMPLEX October 31, 2023 8:28am [facility] 2023 12:47 pm take 1 tablet by mouth once daily Ibandronate 150 mg tablet Discont inued 0 .ROUTE .COMPLEX 3 2023 2:40pm [facility] 2023 7:58a m take 1 tablet by mouth EACH MONTH 60 MINUTES BEFORE THE FIRST FOOD,BEVERAGE OR MEDICINE OF THE DAY WITH PLAIN WATER Pregabalin 150 mg capsule Discont inued 150 MG PO Twice daily 60 2023 12:47p m Octob er 2023 8:17a m Escitalopra m Oxalate 10 mg tablet Discont inued 0 .ROUTE .COMPLEX 2023 12:47p m [facility] 2023 9:22a m Take 1 tablet by mouth once daily Hydrocodone -Acetaminop hen 5-325 mg tablet Discont inued 0 .ROUTE .COMPLEX 90 2023 Octob er 2023 1:51p m TAKE 1 TABLET BY MOUTH EVERY 8 HOURS NEEDED FOR PAIN FOR 30 DAYS p/u 11/22, start 11/24 Escitalopra m Oxalate 10 mg tablet Discont inued 0 .ROUTE .COMPLEX 30 r 2023 8:35am June 02, 2024 8:22a m Take 1 tablet by mouth once daily Pregabalin 150 mg capsule Discont inued 150 MG PO Twice daily 60 30 Octobe r 2023 8:17am Novem benjamín 2023 2:06p m Pregabalin 150 mg capsule Discont inued 150 MG PO Twice daily 60 30 Novemb er 2023 2:06pm Janua ry 2024 9:19a m Hydrocodone -Acetaminop hen [...] TAB PO Every 8 hours 90 30 ua 2024June 02, 2024 8:22a m Pregabalin 150 mg capsule Discont inued 150 MG PO Twice daily 60 30 ua 2024 11:03a m June 02, 2024 8:22a m Escitalopra m Oxalate 10 mg tablet Discont inued 0 .ROUTE .COMPLEX June 02, 2024 8:20am Augus t 2024 10:46 am Take 1 tablet by mouth once daily Hydrocodone -Acetaminop hen 5-325 mg tablet Discont inued 1 TAB PO Every 8 hours 90 30 June 02, 2024 July 04, 2024 3:26p m Pregabalin 150 mg capsule Discont inued 150 MG PO Twice daily 60 30 June 02, 2024 8:20am July 03, 2024 8:27a m Trazodone 100 mg tablet Discont inued 200 MG PO Daily at bedtime 60 June 02, 2024 12:35p m [facility] 2024 8:19a m Pregabalin 150 mg capsule Discont inued [...] Twice daily 60 September 05, 2024 3:02pm October 06, 2024 3:47p m Hydrocodone -Acetaminop hen 5-325 mg tablet Discont inued 1 TAB PO Every 8 hours 80 September 08, 2024 October 07, 2024 12:56 pm Pregabalin 150 mg capsule Discont inued 150 MG PO Twice daily 60 October 06, 2024 3:47pm [facility] 2024 1:48p m Hydrocodone -Acetaminop hen 5-325 mg tablet Discont inued 1 TAB PO Every 8 hours 80 October 07, 2024 [facility] 2024 8:19a m Escitalopra m Oxalate 10 mg tablet Active 0 .ROUTE .COMPLEX October 13, 2024 10:45a m Take 1 tablet by mouth once daily Complies with drug therapy Hydrocodone -Acetaminop hen 5-325 mg tablet Discont inued 1 TAB PO Every 8 hours 80 30 Septem benjamín 2024 Octob er 2024 8:59a m Trazodone 100 mg tablet Active 200 MG PO Daily at bedtime 60 benjamín 2024 8:19am Complies with drug therapy Pregabalin 150 mg capsule Discont inued 150 MG PO Twice daily 60 30 Septem benjamín 2024 1:48pm Octob er 2024 9:30a m Hydrocodone -Acetaminop hen 5-325 mg tablet Active 1 TAB PO Every 8 hours 80 30 Octobe r 2024 Complies with drug therapy Naloxone (Narcan) 4 mg/actuatio n spray,non-a erosol Active 1 SPRAY INTRAN CRISTINA every 2 to 3 minutes as needed for opioid overdose 2 Decobe r 2024 12:00a m spray 1 dose into ONE nostril; alternate nostrils w each dose until help arrives Complies with drug therapy Pregabalin 150 mg capsule Active 150 MG PO Twice daily 60 30 Octobe r 2024 9:30am Complies with drug therapy Mesalamine (Lialda) 1.2 gram tablet,selam yed release (/EC) Discont inued 4.8 GM PO Every morning [...] Tablet Discont inued 75 MG PO Daily 30 July 01, 2019 12:00a m July 05, [...] Muscle Spasm July 01, 2019 12:00a m 2021 2:15p m Mirtazapine 30 mg Tablet [...] inued 1 PUFF INHALA TION Twice daily 60 July 01, 2019 12:00a m Octob er 2024 1:25p m Metronidazo le 500 mg Tablet Discont inued 500 MG PO Twice daily 6 3 July 01, 2019 12:00a m July 05, 2021 1:44p m Oxycodone 5 mg Tablet Discont inued 5 MG PO Every 4 hours as needed for Pain Scale 6 - 10 20 7 July 01, 20192021 2:16p m Polysacchar romario Iron Complex (Iferex [...] 10:53 am Omeprazole 20 mg capsule,del ayed release(DR/ EC) Discont inued 20 MG PO Daily [...] inued 1 PUFF INHALA TION Twice daily 1 2019 1:00am July 02, 2019 8:26a m Prednisone 10 mg tablet Discont inued 10 MG PO As Directed 2019 1:00am July 02, 2019 8:26a m Take 1 tablet twice a day for 3 days then 1 tablet daily Cholecalcif asha (Vitamin D3) (Vitamin D3) 2,000 unit tablet Discont inued 2000 UNIT PO Daily 30 2019 1:00am July 02, 2019 8:26a m Calcium Carbonate (Calcium 500) 500 mg calcium (1,250 mg) tablet Discont inued 500 MG PO Daily 2019 1:00am July 02, 2019 8:26a m Hydrocodone -Acetaminop hen 5-325 mg tablet Discont inued 5 - 325 MG PO Four times daily 0 2019June 18, 2019 5:31p m Alprazolam 0.5 mg tablet Discont inued 0.5 MG PO Daily 10 2019 9:05am June 18, 2019 5:28p m Albuterol Sulfate (Ventolin Hfa) 90 mcg/actuati on HFA aerosol inhaler Discont inued 2 INH INHALA TION every 6 to 8 hours as needed for shortness of breath or wheezing 2019 1:00am July 02, 2019 8:26a m Doxycycline Hyclate 100 mg tablet Discont inued 100 MG PO Twice daily 10 2019 1:00am July 02, 2019 8:26a [...] MEQ PO 3x/Day with meals 60 June 26, 2019 12:00a m July 02, [...] 8 hours as needed for pain 90 30 September 24, 2023 Augus t 2023 10:33 am Pregabalin (Lyrica) 150 mg capsule Discont inued 150 MG PO Twice daily 60 30 September 24, 2023 12:00a m Augus t [...] mg tablet Discont inued 0 PO .COMPLEX August 11, 2023 12:00a m September 24, [...] MG PO Daily at bedtime as needed Octobe r 2023 12:00a m June 02, 2024 12:36 pm Hydrocodone -Acetaminop hen 5-325 mg tablet Discont inued 1 TAB PO Every 8 hours 30 Octobe r 2023 Novem benjamín 2023 5:13p m Albuterol Sulfate 90 mcg/actuati on HFA aerosol inhaler Active 2 PUFF INHALA TION EVERY 4-6 HOURS as needed for bronchospas m 6.7 Octobe r 2023 12:00a m Complies with drug therapy Escitalopra m Oxalate 10 mg tablet Discont inued 20 MG PO Once 2023 9:21am Octob er 2023 8:35a m Trazodone 100 mg tablet Discont inued 150 MG PO Daily at bedtime 2023 9:22am Octob er 2023 1:32p m Omeprazole 40 mg capsule,del ayed release(DR/ EC) Discont inued 40 MG PO Daily 90 90 2023 12:00a m October 01, 2024 1:37p m Linaclotide (Linzess) 290 mcg capsule Discont inued 290 MCG PO Daily 30 2023 9:34am June 23, 2024 1:13p m Naloxegol (Movantik) 12.5 mg tablet Discont inued 12.5 MG PO Every morning 30 October 01, 2024 12:00a m Octob er 2024 1:09p m must be taken on empty stomach; no food 1 hr after or 2-3 hrs before dose Omeprazole 40 mg capsule,del ayed release(DR/ EC) Active 40 MG PO Twice daily 60 30 October 01, 2024 12:00a m Complies with drug therapy Fluticasone Furoate-Terence anterol (Breo Ellipta) 100-25 mcg/dose blister with device Active 1 INH INHALA TION Daily 60 r 2024 12:00a m Complies with drug therapy Pregabalin (Lyrica) 150 mg capsule Discont inued [...] Discont inued 500 MG PO Twice daily 14 7 Novemb er 2023 1:00am ry 2024 2:26p m Immunizations Immunization Event Date Not Given Reason Dose Number Rn Primary Care Lot Number Vaccine Information Statement (VIS) Detail Administration Location COVID-19 mRNA, Comirnaty (Contix) July 09, 2020 COVID-19 mRNA, Comirnaty (Contix) July 30, 2020 COVID-19 mRNA, Comirnaty (Contix) January 31, 2021 Fluzone TIV High-Dose 65YR+ December 25, 2023 [id number] [facility] Fluzone TIV High-Dose 65YR+ December 22, 2024 [id number] [facility] influenza, unspecified formulation January 07, 2018 influenza, [...] Details Orthopaedic cement, non-medicated June 23 [place]: [id number] Issuing Agency: [id number] Device Id: [id number] Expiration Date: 2022-01-09 Lot Number: [id number] Vital Signs Vital Reading Result Reference Range Collection Date/Time Height 62 [in_i] September 23, 2024 1:04pm Weight 46.89 kg September 23, 2024 1:04pm Heart Rate 86 /min 60-100 September 23, 2024 1:04pm Oxygen saturation by Pulse oximetry 92 % 95-100 September 23, 2024 1:04 pm BP Systolic 110 mm[Hg] 100-140 September 23, 2024 1:04pm BP Diastolic 71 mm[Hg] 60-100 September 23, 2024 1:04pm BMI (Body Mass Index) 18.8 kg/m2 September 092024 1:04pm Height 62 [in_i] October 01, 2024 1:19pm Weight 46.26 kg October 01, 2024 1:19pm Heart Rate 66 /min 60-100 October 01, 2024 1:19pm Respiratory rate 18 /min 12-24 October 01, 2024 1:19pm BP Systolic 142 mm[Hg] 100-140 October 01, 2024 1:19pm BP Diastolic 81 mm[Hg] 60-100 October 01, 2024 1:19pm BMI (Body Mass Index) 18.6 kg/m2 September 102024 1:19pm Height 62 [in_i] December 22, 2 025 1:04pm Weight 44.67 kg December 22, 2 025 1:04pm Heart Rate 73 /min 60-100 December 22, 2 025 1:04pm Oxygen saturation by Pulse oximetry 92 % 95-100 December 22, 2024 1 :04pm BP Systolic 109 mm[Hg] 100-140 December 22, 2 025 1:04pm BP Diastolic 71 mm[Hg] 60-100 December 22, 2 025 1:04pm BMI (Body Mass Index) 18.0 kg/m2 Octobe r 2024 1:04pm Advance Directives Advance Directive Response Recorded Date/ Time Advance Directives No April 18, 2019 3:20am Insurance Providers Guarantor Afia Maxwell Address [address] [address] Contact Info. Home Phone: Payer Policy Id Subscriber's Name Subscriber Id Effectiv e Date Expiration Date Medicare [id number] Afia Maxwell [id number] [employer] [facility] PF [id number] Afia Maxwell [id number] Encounters Encounter Location(s) Arrival/Admit Date Discharge/Depart Date Provider(s) Departed Physician/Prov ider Office Visit -[facility] September 23, 2024 1:03pm September 23, 2024 1:29pm Yolanda Chavez MD Departed Physician/Prov ider Office Visit -[facility] October 01, 2024 1:09pm October 01, 2024 1:52pm Terri Pena TOOL GRINDER OPERATOR SURFACE Departed Physician/Prov ider Office Visit -[facility] December 22, 2024 1:02pm December 22, 2024 1:46pm Yolanda Chavez MD Recent Diagnosis Onset Date Admit Date Anxiety Unknown September 23, 2024 1:03pm Chronic thoracic back pain Unknown September 23, 2024 1:03pm Pancreatic lesion Unknown September 23 1:03pm Right femoral fracture Unknown September 1:03pm Vertebral compression fracture Unknown J marilynn2024 1:03pm Chronic back pain Unknown September 23 1:03pm COPD (chronic obstructive pulmonary disease) Unk nown September 23, 2024 1:03pm Fibromyalgia Unknown September 23, 2024 1:03pm Dyspepsia Unknown October 01, 2024 1:09pm GERD (gastroesophageal reflux disease) Unknown October 01, 2024 1:09pm Opioid-induced constipation Unknown October 01, 2024 1:09pm Pancreatic lesion Unknown October 01 1:09pm Anxiety Unknown December 22 1:02pm Bilateral lower extremity edema Unknown December 22, 2024 1:02pm Chronic thoracic back pain Unknown 2024 1:02pm Pancreatic lesion Unknown December 22, 2024 1:02pm Right femoral fracture Unknown December 102024 1:02pm Vertebral compression fracture Unknown O ctober 2024 1:02pm Chronic back pain Unknown December 22, 2024 1:02pm COPD (chronic obstructive pulmonary disease) Unk nown December 22, 2024 1:02pm Fibromyalgia Unknown December 22 1:02pm Assessments Diagnosis Onset Date Resolution Status Admit Date Anxiety acute September 23 1:03pm Chronic thoracic back pain acute September 23, 2024 1:03pm Pancreatic lesion acute September 232024 1:03pm Right femoral fracture acute Ju 2024 1:03pm Vertebral compression fracture acute September 23, 2024 1:03pm Chronic back pain chronic September 232024 1:03pm COPD (chronic obstructive pulmonary disease) chronic September 23 1:03pm Fibromyalgia chronic September 23, 1:03pm Dyspepsia acute October 01 1:09pm GERD (gastroesophageal reflu x disease) acute October 01, 2024 1:09pm Opioid-induced constipation acute October 01, 2024 1:09pm Pancreatic lesion acute October 012024 1:09pm Anxiety acute December 22, 2024 1:02pm Bilateral lower extremity edema acute December 22 1:02pm Chronic thoracic back pain acute December 22, 2024 1:02pm Pancreatic lesion acute December 22, 2024 1:02pm Right femoral fracture acute Oc tober 2024 1:02pm Vertebral compression fracture acute December 22, 2024 1:02pm Chronic back pain chronic December 22, 2024 1:02pm COPD (chronic obstructive pulmonary disease) chronic December 22, 2024 1:02pm Fibromyalgia chronic December 1:02pm Plan of Treatment Author Obed Lima [facility] Authored October 01, 2024 1:43 pm A 69-year-old female patient diagnosed with dyspepsia, GERD, opioid-induced constipation and history of pancreatic lesion Uptitration of patient PPI from omeprazole 40 mg once daily to omeprazole 40 mg twice daily, patient positive for 3 more instances of dyspeptic breakthrough per week. Patient negative for dysphagia Initiate Movantik 12.5 once daily as patient is positive for constipation. Patient does utilize [facility] on a twice daily basis and would be set up for opioid-induced constipation. Patient has tried and failed Linzess 290, dietary fiber and OTC laxatives Initiate lifestyle modification with regard to twice daily fiber supplementation, increase water intake and probiotics Continue follow-up with Dr. Dunlap's office with regard to pancreatic lesion, patient was given recommendation for 6-month MRCP to ensure stability of pancreatic cyst Follow-up in this office in 8 weeks to discuss treatment efficacy Author Yolanda [facility] Authored December 22, 2024 1 :36pm Pt states her symptoms are c ontrolled on lyrica 150mg bid. Reviewed OARRS. Reviewed OARRS. Signed pain contract in Mar 2024. UDS obtained today again as last one was too small of an amount. Discussed referral to [facility] - she is happy w the test injection results. She is concerned about her chronic lumbar pain. We have decreased to #80 on the pain med thus far. I am hesitant to increase her muscle relaxers due to her other chronic meds and medical problems (COPD) w the risk of resp. depression. Followup 3 months xanax has been discontinued. stable w lexapro at 10mg. Declines referral to counseling or psych at this time. Sequela - notes weakness in her R leg and knee pain. Keep appt w Dr. Dunlap at [facility] continue albuterol. restarted breo - pulse ox was 92% as above as above Author Yolanda Chavez [facility] Authored September 25, 2024 1:41 pm Pt states her symptoms are c ontrolled on lyrica 150mg bid. Reviewed OARRS. Reviewed OARRS. Signed pain contract in Mar 2024. UDS obtained today again as last one was too small of an amount. Discussed referral to [facility] - she is happy w the test injection results. She is concerned about her chronic lumbar pain. We have decreased to #80 on the pain med thus far. I am hesitant to increase her muscle relaxers due to her other chronic meds and medical problems (COPD) w the risk of resp. depression. Followup 3 months xanax has been discontinued. stable w lexapro at 10mg. Declines referral to counseling or psych at this time. [facility] - notes weakness in her R leg and knee pain. Keep appt w Dr. Dunlap at [facility] continue albuterol as above as above Future Tests Future scheduled test information is unavailable Pending Tests Test Name Ordered Date Scheduled Date US venous duplex LE BI December 22, 2024 1:30pm Future Visits Future appointment information is unavailable Referrals to Other Providers Referral information is unavailable Future Procedures Future procedure information is unavailable Future Medications Future medication information is unavailable Patient Instructions Patient instructions are unavailable
--- OUTSIDE RECORDS SUMMARY | 2024-12-24 13:57 | XMS_ITS | Clinical Summary ---
Author Organization [facility] Address [address] [place] [address] Care Team Providers Care Nuclear Medicine Supervisor Name Role Phone Yolanda Chavez MD Primary Care Provider [phone] Allergies Active Allergy Reactions Criticality Noted Date Comments Cefdinir Other: See Comments 06/22/2023 Ibuprofen Unknown 06/22/2023 Nsaids (Non-Steroidal Anti-Inflammatory Drug) Other: See Comments 05/15/2023 Other Reaction(s): diarrhea, itching and rash Qcissxk-Icj-Wgk Reductase Inhibitors Unknown 01/23/2023 Other Reaction(s): Unknown [...] is lower risk 4 12/19/2023 Data from: https://www.neighborhoodatlas.medicine.[facility].edu/. Last address used for calculation [address] [...] Directive Discussion 03/12/2024 [facility]age [facility]/12/2024 Pneumococcal Vaccine: 50+ (3 of 3 - PCV20 or PCV21) 09/18/2024 09/19/2019, 01/18/2013, 10/25/2011, Additional history exists Covid-19 Vaccine (4 - 2024-2 6 season) 2024 01/31/2021, 07/30/2020, 07/09/2020 Influenza Vaccine (#1) 2024 , 10/24/2022, 12/24/2021, Additional history exists Diabetes Screening 06/12/2026 06/13/2023 Insurance [facility] MEDIC[facility] Care Teams Nuclear Medicine Supervisor Relationship Specialty Start Date End Date Yolanda Chavez MD [address] [place] [address] PCP - General Family Medicine 11/30/23
--- OUTSIDE RECORDS SUMMARY | 2024-12-24 13:57 | XMS_ITS | Clinical Summary ---
Author Organization [facility] Address [address] [place] [address] Care Team Providers Care Dressmaking Teacher Name Role Phone Yolanda Chavez MD Primary Care Provider [phone] Allergies Active Allergy Reactions Criticality Noted Date [...] 25 MG tablet 3 Active HYDROcodone-richelle taminophen ([place]) 10-325 MG tablet Take 1 tablet by [...] 01/23/2023 12:25 PM EST Plan of Treatment Not on file Insurance [facility] MEDICARE ADVANTAGE Care Teams Dressmaking Teacher Relationship Specialty Start Date End Date Yolanda Chavez MD PCP - General Family Medicine 11/22/22
--- OUTSIDE RECORDS SUMMARY | 2024-12-24 13:57 | XMS_ITS | Encounter Summary ---
Author Organization [facility] Address [address], [address] [place] [address] Care Team Providers Care Treadle Cut Off Saw Operator Name Role Phone Yolanda Chavez MD Primary Care Provider [phone] Encounter Details Date Type Department Care Team (Late st Contact Info) Description 06/18/2023 Telephone Career Element Special Procedure [address] [place], [place] [id number] Jacque Estevez RN Social History Tobacco Use [...] on filedocumented in this encounter Care Teams Treadle Cut Off Saw Operator Relationship Specialty Start Date End Date Yolanda Chavez MD [address] [place] [id number] PCP - General Family Medicine 06/13/23 documented as of this encounter
--- OUTSIDE RECORDS SUMMARY | 2024-12-24 13:57 | XMS_ITS | Clinical Summary ---
Author Organization [facility] Address [address] [place] [address] Phone Care Team Providers Care Park Guard Name Role Phone Unavailable Primary Care Provider [...]
--- OUTSIDE RECORDS SUMMARY | 2024-12-24 13:58 | XMS_ITS | Clinical Summary ---
Author Organization [facility] tem Address [facility] [id number] [address] [place] [address] Care Team Providers Care Hardwood Floor Installation Helper Name Role Phone Raj Phani Liza HAWK Primary Care Provider [phone] Allergies Active Allergy Reactions Criticality Noted Date [...] Most Recently Relevant to Health Maintenance Insurance [facility] MEDICARE Care Teams Hardwood Floor Installation Helper Relationship Specialty Start Date End Date Phani Anthony DO [address] [place] [address] PCP - General 09/21/17
--- OUTSIDE RECORDS SUMMARY | 2024-12-24 13:58 | XMS_ITS | Encounter Summary ---
Author Organization [facility] Address [address] [place] [address] Phone Care Team Providers Care Network Announcer Name Role Phone Unavailable Primary Care Provider Unavailabl e Encounter Details Date Type Department Care Team (Late st Contact Info) Description 12/01/2022 Scanned Document [facility] [id number] [place] [address] Conversion, Onbase Social History Tobacco Use Types [...]
--- OUTSIDE RECORDS SUMMARY | 2024-12-24 13:58 | XMS_ITS | Clinical Summary ---
Author Organization [facility] Address [address], [address] [place] [address] Care Team Providers Care Grease Refining Supervisor Name Role Phone Yolanda Chavez MD Primary Care Provider [phone] Allergies Active Allergy Reactions Criticality Noted Date [...] this topic Medical Devices Implanted Type Area Fruit And Vegetable Inspector Device Identifier Shelf Expiration Date Model / Serial / Lot Cement Bne 20 Gm Hi Visc Radiopaque Vertaplex Hv - [id number] Implanted:Qty: 1 on 06/15/2023 by Ricardo Carbajal MD at [facility] Cement Back JENNIFER MICHELL-WD 11/09/2024 [id number] / / [id number] Description:Thoracic 11 & th oracic 12 Insurance [facility] MEDICARE Care Teams Grease Refining Supervisor Relationship Specialty Start Date End Date Yolanda Chavez MD [address] [place] [address] PCP - General Family Medicine 06/13/23
--- OUTSIDE RECORDS SUMMARY | 2024-12-24 13:58 | XMS_ITS | Patient Health Record ---
Author Organization [facility] Address [address] [place] [address] Care Team Providers Care Sensor Technician Name Role Phone Jayesh Hummel MD Primary Care Provider Paco Romeo Unavailable [phone] Allergies Allergen (clinical drug ingredient) Drug/Non Drug [...] Problem Status W/U Status Risk Notes Problem [id number] Closed fracture of right tibial plateau, initial encounter (S82.141A) Active confirmed Problem [id number] Closed disp bicondylar fracture of right tibia with routine healing (S82.141D) Active confirmed Plan Of Treatment Pending Test Test Name Order Date DME TROM brace 12/04/2022 Insurance Providers Payer Name Payer Address Payer Phone Subscriber Number Group Number Insured Name Patient Relationship to Insured Coverage Start Date Coverage End Date Medicare [employer] [address] [address] [place] [address] [phone] [id number] TYRESE GUTIERRES Self - patient is the [...]
--- OUTSIDE RECORDS SUMMARY | 2024-12-24 14:04 | XMS_ITS | CCD ---
Author Organization [facility] Care Team Providers Care Front Window Cashier Name Role Phone Janna Pina Unavailable Shira Cunningham Unavailable Ambrose Torres Unavailable Kiran Barksdale Unavailable [phone] DO Phani Pruitt Primary Care Provider MD [...] Flores Unavailable MD Kiran Barksdale Attending Provider [phone] MD Nettie Iqbal Primary Care Provider MD Nettie Iqbal Attending Provider Unavailable Primary Care Provider UnavailPHANI [place] Primary Care Physician Cleveland RAMOS Attending Unavailable NO FAMILY, PHYSICIAN Primary Care Provider Unava ilable ROBIN FLANNERY Referring Unavailable ROBIN FLANNERY Referring Unavailable ROBIN FLANNERY Attending Unavailable MD Nettie Iqbal Attending Provider MD Nettie Iqbal Primary Care Provider [phone] ANUSHKA Kim Attending Provider Ana Kim Unavailable GABBY LO Referring Unavailable NETTIE IQBAL Primary Care Unavailable Nettie Iqbal MD Primary Care Provider GABBY LO Referring Unavailable NETTIE IQBAL Primary Care Unavailable MD Nettie Iqbal Attending Provider MD Horacio Erwin Attending Provider MD Nettie Iqbal Primary Care Provider Nettie Iqbal MD Primary Care Provider [phone] MD Sam Hare Attending Provider MD Horacio Erwin Attending Provider MD Nettie Iqbal Primary Care Provider MD Sam Hare Attending Provider SHEILA Barry Attending Provider JACI PERAZA Attending Unavailable JUAN C, KALALED Referring Unavailable NETTIE IQBAL Primary Care Unavailable Lilia Barry APRN Attending Provider Nettie Iqbal MD Primary Care Provider Sam Hare MD Attending Provider Nettie Iqbal MD Primary Care Provider [phone] Horacio Erwin MD Attending Provider Lilia Barry Attending Unavailable Lilia Barry Admitting Unavailable Horacio Erwin Attending Unavailable Horacio Erwin Admitting Unavailable Nettie Iqbal Primary Care Unavailable Nettie Iqbal Primary Care Unavailable Horacio Erwin Attending Unavailable Horacio Erwin Admitting Unavailable JUAN C, KHALED Attending Unavailable DAVIDSON IQBALIA E Primary Care Unavailable Jaymie Garnica Attending Provider [phone] Nettie Iqbal MD Attending Provider Obed Lima APRN Attending Provider Ramos ROOT, Vickey Winkler Attending Unavailable Ramos ROOT, Andgregoria Winkler Attending Unavailable Ramos ROOT, Andrius Winkler Attending Unavailable Ramos ROOT, Landryrius Winkler Attending Unavailable Nettie Iqbal MD Primary Care Provider Allergies Allergy Classification Reported Allergen(s) Allergy Type Date of Onset Reaction(s) Facility (20 sources) cefdinir; Translations: [CEFDINIR] Drug Allergy 024 Other: See Comments [facility] (20 sources) Ketorolac Drug Allergy Unknown, Diarrhea [facility] (20 sources) varenicline Drug Allergy Unknown, Muscle Pain [facility] (20 sources) vioxx, antiinflammatories Propensity to adverse reactions Unknown, Hives [facility] (20 sources) Statins Support Drug allergy Unknown [facility] Other (9 sources) varenicline; Translations: [Chantix] Drug Allergy Unknown [facility] Repository (3 sources) Ketorolac Drug Allergy 024 Diarrhea [facility] Other (20 sources) Sulfamethoxazole / Trimethoprim Drug Allergy 023 Unknown [facility] [facility] Other (20 sources) rofecoxib Drug Allergy 018 Migraine [facility] (20 sources) NSAIDS (Non-Steroidal Anti-Inflamma Allergy to substance Diarrhea [facility] (20 sources) Aboufax-FIB-ZaA Reductase Inhibitor Allergy to substance [facility] (2 sources) black walnut pollen extract; Translations: [SYYLUIT-GAJ-AAS REDUCTASE INHIBITORS] Drug Allergy [facility] Repository (1 source) cefdinir Drug Allergy [facility] (1 source) Ketorolac Drug Allergy [facility] (3 sources) NSAIDs; Translations: [NSAIDS (NON-STEROIDAL ANTI-INFLAMMATORY DRUG)] Drug allergy (disorder) Other: See Comments [facility] (1 source) rofecoxib Drug Allergy [facility] (1 source) Sulfamethoxazole / Trimethoprim Drug Allergy [facility] (20 sources) Ibuprofen; Translations: [IBUPROFEN] Drug Allergy Unknown [facility] (20 sources) Simvastatin Drug Allergy Unknown, [facility] (20 sources) zoledronic acid; Translations: [ZOLEDRONIC ACID] Drug Allergy Other: See Comments [facility] (5 sources) Allergies Reconciled Propensity to adverse reactions Unknown [facility] Other (20 sources) Toradol *ANALGESICS - ANTI-INFLAMMATORY* Propensity to adverse reactions 015 Unknown [facility] Other (20 sources) Cholesterol Drug allergy 015 Unknown [facility] Other (20 sources) ANTI INFLAMMATORY Propensity to adverse reactions 015 Unknown [facility] Other (5 sources) patient allergy list reviewed by nurse or physicia Propensity to adverse reactions Comment:Done [facility] Other (1 source) DULoxetine Drug Allergy 024 Diarrhea [facility] (10 sources) HMG-CoA reductase inhibitor Propensity to adverse reactions to drug 023 Unknown [facility] (9 sources) Non-steroidal anti-inflammatory agent Propensity to adverse reactions to drug Other: See Comments [facility] (1 source) PARoxetine Drug Allergy Other (See Comments) [facility] (15 sources) Mannitol Drug Allergy Comment:Bone pain [facility] (15 sources) Sulfamethoxazole Drug Allergy [facility] (15 sources) Trimethoprim Drug Allergy [facility] (15 sources) water for injection,sterile Allergy to substance Comment:Bone pain [facility] (15 sources) Toradol *ANALGESICS - ANTI-INF Allergy to substance [facility] Comment on above: Free Text Allergy: T oradol *ANALGESICS - ANTI-INFLAMMATORY*; Onset Date: 06/29/2014 (13 sources) Ibadronate Drug Allergy bone pain [facility] (1 source) Sulfamethoxazole / Trimethoprim; Translations: [SULFAMETHOXAZOLE-TRI METHOPRIM] Drug Allergy 023 [facility] Other [place] Repository Medications Current Medications Medication Drug Class(es) Dates Sig (Normalized) Sig (Original) [id number] 200 actuat albuterol 0.09 mg/actuat metered dose [...] Muscle Spasm 20 5 June 26, 2019 10:50am July [...] sources) Serotonin Reuptake Inhibitor Start: 12-14-2023 End: 10-13-2024 take 1 tablet by mouth once daily Escitalopram Oxalate 10 mg tablet Active 0 .ROUTE .COMPLEX October 13, 2024 10:45am Take 1 tablet by mouth once daily [...] Orally once for 1 days Aug, Active 30 actuat fluticasone furoate 0.1 mg/actuat / vilanterol 0.025 mg/actuat dry powder inhaler (1 source) Corticosteroid, beta2-Adrenergic Agonist Start: 12-22-2024 Fluticasone Furoate-Vilanterol (Breo Ellipta) 100-25 mcg/dose blister with device Active 1 INH INHALATION Daily December 22, 2024 12:00am Complies with drug therapy hydrOXYzine pamoate 25 mg oral capsule (20 [...] Daily January 19, 2022 12:00am Multivitamin Tablet (6 sources) Start: 01-19-2022 take 1 tablet [...] TAB PO Daily January 19, 2022 12:00am naloxone hydrochloride 40 mg/ml nasal spray (1 source) Opioid Antagonist Start: 12-12-2024 Naloxone (Narcan) 4 mg/actuation spray,non-aerosol Active 1 SPRAY INTRANASAL every 2 to 3 minutes as needed for opioid overdose December 12, 2024 12:00am spray 1 dose into ONE nostril; alternate nostrils w each dose until help arrives Complies with drug therapy omeprazole 40 mg delayed release oral capsule (20 sources) Proton Pump Inhibitor Start: 10-01-2024 take 1 capsule by mouth twice daily Omeprazole 40 mg capsule,delayed release(DR/EC) Active 40 MG PO Twice daily 60 October 01, 2024 12:00am Complies with drug therapy Start: 11-26-2023 End: 10-01-2024 take 1 capsule by mouth once daily Omeprazole 40 mg capsule,delayed release(DR/EC) Discontinued 40 MG PO Daily 90 90 November 26, 2023 12:00am October 01, [...] sources) Serotonin Reuptake Inhibitor Start: 12-25-2023 End: 11-11-2024 take 2 tablets by mouth once daily at bedtime Trazodone 100 mg tablet Active 200 MG PO Daily at bedtime 60 November 11, 2024 8:19am Complies with drug therapy Start: 12-25-2023 take [...] (20 sources) Opioid Agonist Start: 12-25-2023 End: 12-12-2024 take 1 tablet by mouth every eight [...] for Pain 20 5 June 26, 2019 10:50am July [...] mg / clavulanate 125 mg oral tablet (6 sources) Penicillin-class Antibacterial Start: 03-28-2024 End: 06-23-2024 take 1 tablet by mouth twice daily Amoxicillin-Pot Clavulanate 500-125 mg tablet Discontinued 1 TAB PO Twice daily March 28, 2024 1:00am June 23, 2024 1:11pm amylase [id number] unt / lipase 78699 unt / protease [id number] unt delayed release oral capsule (20 sources) Start: 07-05-2021 End: 07-06-2021 take [id number] capsules by mouth once daily Tmnevu-Rfbecwrd-Jadd ase (Creon) 36,000-114,000- 180,000 unit capsule,delayed release(DR/EC) Discontinued 1 CAP PO Daily July 05, 2021 12:00am July 06, 2021 7:56am Start: 06-13-2021 take 1 capsule by [facility] three times daily at mealtime Creon [id number] UNIT 1 CAPSULE Orally THREE TIMES A [...] I (only) cephalexin 500 mg oral capsule (8 sources) Cephalosporin Antibacterial Start: 01-16-2024 End: 03-28-2024 [...] tablet Discontinued 100 MG PO Twice daily 12 14April 19, 2019 1:00am July 02, 2019 8:26am [...] July 06, 2021 6:57am Start: 04-19-2019 End: 12-22-2024 take 1 puff(s) by inhalation twice daily Fluticasone Propion-Salmeterol 113-14 mcg/actuation Aerosol Powdr Breath Activated Discontinued 1 PUFF INHALATION Twice daily 60 July 01, 2019 12:00am December 22, 2024 1:25pm take 1 puff(s) by in halation in [...] 1:13pm Start: 01-08-2023 take 1 capsule by [facility] at bedtime LINZESS 290 MCG CAPS capsule Take 1 capsule by mouth in the morning and at bedtime 0 01/08/2023 Active take 1 capsule by [facility] every twelve hours Linzess 290 MCG [...] 24hr Discontinued 1.5 GM PO Every morning 120 [...] 2019 1:54pm methylPREDNISolone 4 mg oral tablet (6 sources) Corticosteroid Start: 03-28-2024 End: 06-23-2024 Methylprednisolone 4 mg tablets,dose pack Discontinued 0 PO per package directions March 28, 2024 1:00am June 23, 2024 1:13pm PO PER PKG DIR for 6 days metroNIDAZOLE 500 mg oral tablet (20 sources) Nitroimidazole Antimicrobial Start: 07-01-2019 End: 07-05-2021 take 1 tablet by mouth twice daily Metronidazole 500 mg Tablet Discontinued 500 MG PO Twice daily 6 July 01, 2019 12:00am July 05, 2021 1:44pm mupirocin 0.02 mg/mg topical ointment (1 source) RNA Synthetase Inhibitor Antibacterial Mupirocin 2 % apply to affected area twice a day External for 10 Not-Taking naloxegol 12.5 mg oral tablet (20 sources) Opioid Antagonist Start: 10-01-2024 End: 12-22-2024 take 1 tablet by mouth once daily in the morning Naloxegol (Movantik) 12.5 mg tablet Discontinued 12.5 MG PO Every morning October 01, 2024 12:00am December 22, 2024 1:09pm must be taken on empty stomach; no food 1 hr after or 2-3 hrs before dose Start: 12-09-2021 take 1 tablet by arlene th every twenty-four hours Movantik 12.5 MG 1 tablet in the morning Orally Once a day for 30 day(s) Nov, Active Movantik Active Omeprazole 20 mg capsule,delayed release(DR/EC) (3 sources) [...] release (DR/EC) Discontinued 40 MG PO Daily May 02, 2023 1:00am November 26, 2023 [...] Active Start: 08-03-2022 take 2 tablets by [facility] every twenty-four hours predniSONE 20 MG 2 tablets Orally Once a day for 5 days July, Active Start: 05-09-2022 predniSONE 20 MG 2 Orally Once a day for 5 days Apr, Active Start: 04-13-2021 [facility] every twelve hours predniSONE 20 MG 1 tablet Orally bid for 5 day(s) Apr, Active Start: 01-20-2021 take 1 tablet [facility] every twenty-four hours predniSONE 20 MG [...] oral capsule (20 sources) Start: 10-04-2022 End: 12-12-2024 take 1 capsule by mouth twice daily Pregabalin (Lyrica) 150 mg capsule Discontinued 150 MG PO Twice daily June 22, 2023 12:00am August 22, 2023 11:55am Start: 04-28-2022 take 1 capsule by [facility] every twelve hours Lyrica 75 MG [...] clean-u p per request of Phys[facility] Acute bronchitis (14 sources) Acute bronchitis due [...] clean-u p per request of Phys. 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 THERAPY] Onset: 06-08-2022 Episodic Other aftercare (10 sources) Long-term current use of drug therapy; Translations: [Other terminal operator (current) drug therapy] Episodic Other and ill-defined [...] with delayed healing] 06-15-2023 Episodic Other fractures (18 sources) Compression fracture of vertebral column; Translations: [...] system and abdomen Episodic Other gastrointestinal disorders (4 sources) Drug-induced constipation; Translations: [Drug induced constipation] [...] Onset: 10-20-2021 Episodic Other non-traumatic joint disorders (15 sources) Pain in right knee; Translations: [Right [...] Nasal congestion Episodic Other upper respiratory infections (6 sources) Sinusitis; Translations: [Chronic sinusitis, unspecified] 04-02-2024 [...] malignant neoplasm of digestive organs] 12-19-2023 Episodic Residual codes; unclassified (2 sources) Bilateral lower limb edema; Translations: [Localized edema] 12-22-2024 Episodic Spondylosis; intervertebral disc disorders; other back [...] pain, unspecified] Onset: 02-11-2018 Urinary tract infections (20 sources) Urinary tract infection, site not specified; [...] sources) High risk drug monitoring status; Translations: [group home (current) use of opiate analgesic] Onset: 11-14-2016 Episodic Other aftercare (1 source) 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; Translations: [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] Onset: 11-14-2016 [...] (S/P/Bld) [Vol rate/Area] mL/min/{1.73_m2} >=60 mL/min/1.73m 2 [facility] - Chemistry and C hemistry - challengeon 08-21-2024 Creatinine [Mass/Vol] 0.73 mg/dL 0.55-1.02 [facility] GFR/1.73 sq M.predicted MDRD (S/P/Bld) [Vol rate/Area] mL/min/{1.73_m2} >=60 mL/min/1.73m 2 [facility] CNPNon 07-15-2024 KRISTINA Telephone (GASTNO) AFIA GUTIERRES ([id number]) 1955 F Date Time Provider Department 07/15/24 [...] She is scheduled 02/14/2024 at 12:30 PM, [facility]. - EGD - THERAPEUTIC, EUS, OR [...] and my recommendations to Dr. Erwin at [facility]. Pt had repeat MRCP 07/05/2024 and [...] wanted her MRCP to be done at [facility] facility for my review. I need the images of MRCP (done at [facility]) uploaded to [facility] for my review prior to rendering any opinion. MD Iona Vigil Dawn, RN 07/16/2024 9:10 AM Signed Fannie called [facility]'s, they will push images to [facility]. Will monitor. ED Merrill Dawn, RN 07/17/2024 2:[address] Dunlap, MRI images available in [facility] to review. ED Merrill Khaled, MD 07/21/2024 [...] dysplasia. Recommend: MRCP in 6 months at [facility] facility. Send my opinion to Dr. Erwin. MD Iona Vigil Dawn, RN 07/22/2024 9:21 AM Signed Recommendations faxed to Dr. Erwin's office. Angela Monson RN Allergies As of Date: 07/15/2024 Noted Allergy Reaction CEFDINIR 06/22/2023 14 - Other: See Comments IBUPROFEN 06/22/2023 16 - Unknown NSAIDS (NON-STEROIDAL ANTI-INFLAM*05/15/2023 14 - Other: See Comments Comments: Other Reaction(s): diarrhea, itching and rash YVWVTVX-SHS-NOP REDUCTASE INHIBIT*01/23/2023 16 - Unknown Comments: Other Reaction(s): Unknown SULFAMETHOXAZOLE-TRIME THOPRIM 01/23/2023 16 - Unknown ZOLEDRONIC ACID 06/22/2023 14 - Other: See Comments Date Reviewed: 03/21/2024 Reviewed by: Sofy Arriaga RN - Fully Assessed Prim (more content not included)... Normal [facility] MR MRCPon 07-05-2024 MR MRCP [facility] Main [place] [address] [place] [address] MRI Report Signed Patient: Afia Gutierres MR#: [id number] : 1955 Acct:[id number] Age/Sex: 69 / F ADM Date: 07/05/24 Loc: MR Room: Type: [facility] Attending Dr: Horacio Erwin MD Copies to: [...] Perkins M.D. 07/05/2024 9:55 AM Dictation Location: [place] [address] Transcribed By: [facility] 07/05/24 0955 Dictated By: Vitaly Perkins MD 07/05/24 0945 Signed By: 07/05/24 0955 Normal [facility] Magnetic resonance imaging r eportOrdered By: Vitaly Perkins on 07-05-2024 Study report [facility] Main [address] [address] MRI Report Signed Patient: Afia Gutierres MR#: [id number] : 1955 Acct:[id number] Age/Sex: 69 / F ADM Date: 5 Loc: MR Room: Type: [facility] Attending Dr: Horacio Erwin MD Copies to: Horacio Eriwn MD~ Ordering Provider: Horacio Erwin MD Date [...] of the pancreatic head cystic lesion currently [id number] mm in greatest dimension. Cystic neoplasm such as IPMN is favored. Sequelaeof pancreatitis or small pseudocysts could also be considered. Impression dictated by: Vitaly Perkins M.D. 07/05/2024 9:55 AM Dictation Location: [facility] Transcribed By: [facility] 07/05/24 0955 Dictated By: Vitaly Perkins MD 07/05/24 0945 Signed By: 07/05/24 0955 [facility] Work Phone: Kin 03-31-2024 KRISTINA Telephone (KEE) AFIA GUTIERRES ([id number]) 1955 F Date Time Provider Department 1/20/EVERETT GARCIA During your visit today, we recorded the following information about you: Angela Monson, ED 03/31/2024 12:51 PM Signed ----- Message from Everett Dunlap MD sent at 03/29/2024 2:45 PM EST ----- Cytology of Fine needle aspiration of pancreatic head cyst: Neoplastic cells present. Negative for high-grade dysplasia. Last MRCP was 10/2023. Recommend MRCP in 3 months. Send the EUS report, cytology results and my recommendations to Dr. Erwin at [facility]. MD Iona Vigil Dawn, RN 03/31/2024 1:02 PM Signed Pt notified of results and recommendations and verbalized understanding. She will follow up with Dr. Erwin. Reports and recommendations faxed to Dr. Erwin's office. Angela Monson RN [facility] 05/07/2024 3:01 PM Signed Patient calls stating Dr. Erwin's office never received the records Dr. Dunlap sent. Can records be refaxed? Angela Monson RN 05/07/2024 3:20 PM Signed Records faxed again, confirmation received. Angela Monson RN [facility] 06/02/2024 3:05 PM Signed Pt calling Dr. [...] Comments: Other Reaction(s): diarrhea, itching and rash MIXEERL-HHM-BQW REDUCTASE INHIBIT*01/23/2023 16 - Unknown Comments: Other [...] Encounter Status:Closed by ANGELA MONSON on 03/31/24 [facility] ANES POSTPROC EVALon 025 ANES POSTPROC EVAL HNO ID: [id number] Author: JACI PERAZA DO Service: Anesthesiology Author Type: Anesthesiologist Type: Anesthesia Postprocedure Evaluation Filed: 03/21/2024 14:29 Note Text: POST ANESTHESIA EVALUATION NOTE : 1955 Procedure Summary Date: 03/21/24 Room / Location: [facility] Endoscopy - ENDO Anesthesia Start: 933 Anesthesia Stop: 1037 Procedure: EGD - THERAPEUTIC, EUS, OR TUBE INTERVENTIONS Diagnosis: Pancreatic cyst (For evaluation of pancreatic cystic neoplasm) Scheduled Providers: Everett Dunlap MD; Jaqueline Bianchi APRN.CRNA; Jaci Peraza DO Responsible Provider: Jaci Peraza [...] March 21, 2024 TIME: 2:29 PM CSN: [id number] Normal [facility] ANES PRE-OPon 03-21-2024 ANES PRE-OP HNO ID: [id number] Author: JACI PERAZA DO Service: Critical Care Author Type: Anesthesiologist Type: Anesthesia Preprocedure Evaluation Filed: 03/21/2024 09:32 Note Text: ANESTHESIOLOGY DAY OF SURGERY NOTE : 1955 Procedure Information Date/Time: 03/21/24 1000 Scheduled providers: Everett Dunlap MD; Jaqueline Bianchi APRN.CRNA; Jaci Peraza DO Procedure: EGD - THERAPEUTIC, EUS, OR TUBE INTERVENTIONS Location: [facility] Endoscopy - ENDO There is no [...] March 21, 2024 TIME: 9:10 AM CSN: [id number] Normal [facility] CYTOLOGY NON-GYNon CASE REPORT Normal [facility] Comment on above: Order Comment: Speci men Type: SPECIMEN OBTAINED BY ASPIR[employer] Ordering Facility: [facility] Address: [address] [place] [address] Result Comment: [facility] Cytology Report Case: [id number] Authorizing Provider: Everett Dunlap MD Collected: 03/21/2024 09:58 AM Ordering Location: [facility] Received: 03/21/2024 10:35 AM Endoscopy - ENDO Pathologist: Priya Sumner MD Specimen: Pancreas, pancreatic head cyst Performed By: #### C YTONON #### [facility] CLIA [id number] [address] [place] [address] DIAGNOSIS COMMENT Normal [facility] Comment on above: Order Comment: Speci men Type: SPECIMEN OBTAINED BY ASPIRATION Ordering Facility: [facility] Address: [address] [place] [address] Result Comment: This case was reviewed in consultation with Dr. Dorado who agrees with the diagnosis. Performed By: #### C YTONON #### [facility] CLIA [id number] [address] [place] [address] FINAL DIAGNOSIS [facility] Comment on above: Order Comment: Speci men Type: SPECIMEN OBTAINED BY ASPIRATION Ordering Facility: [facility] Address: [address] [place] [address] Result Comment: A. P ancreas, Pancreatic Head Cyst, Fine Needle Aspiration: Neoplastic cells present. Negative for high-grade dysplasia. Performed By: #### C YTONON #### [facility] CLIA [id number] [address] [place] [address] [place] FINAL PERFORMING LAB Normal [facility] Comment on above: Order Comment: Speci men Type: SPECIMEN OBTAINED BY ASPIRATION Ordering Facility: [facility] Address: [address] [place] [address] Result Comment: Tech nical component, regional forester screening performed at [facility], [address] [place] [address] CLIA# [id number] Diagnostic interpretation performed at [facility], [address] [place] [address] CLIA# [id number] Obiee Lead Developer: Wai Pulido M.D. Performed By: #### C YTONON #### [facility] CLIA [id number] [address] [place] [address] [place] GROSS DESCRIPTION A. Pancreas Normal [facility] Comment on above: Order Comment: Speci men Type: SPECIMEN OBTAINED BY ASPIRATION Ordering Facility: [facility] Address: [address] [place] [address] Result Comment: 1 cc opaque dark green fluid. ThinPrep prepared. Performed By: #### C YTONON #### [facility] CLIA [id number] [address] [place] [address] [place] EGD Study observation Narrat iveon 03-21-2024 [facility] Gastrointestinal Endoscopy Patient Name: Afia Gutierres Procedure Date: 03/21/2024 9:09 AM Date of : 1955 Admit Type: Outpatient Age: 68 Room: [place] [address] Gender: Female Note Status: Finalized Attending MD: Everett Dunlap MD, [id number] Procedure: Upper EUS Indications: For evaluation of [...] stable. Providers: Everett Dunlap MD, Vero Layne, RN, Alessia Spaulding, RN, Olinda Cohen, RN, Isabela Epps, RN Patient Profile: This is a 68 [...] cyst b (more content not included)... PROVATION [facility] Radiology Study observation (narrative) [facility] HISTORY PHYSICALon HISTORY PHYSICAL HNO ID: [id number] Author: EVERETT DUNLAP MD Service: Gastroenterology Author [...] Comments Other Reaction(s): diarrhea, itching and rash Deuonbh-Jcd-Quu Red* Unknown Other Reaction(s): Unknown Sulfamethoxazole-Tr* Unknown [...] DATE: March 21, 2024 TIME: 9:22 AM [place] [facility] NURSING PROGon 03-21-2024 NURSING PROG HNO ID: [id number] Author: SOFY ARRIAGA RN Service: Nursing Author [...] (RECOMMENDATION): None Electronically Signed By: Sofy Arriaga [facility] Upper EUSon 03-21-2024 Upper EUS [facility] Gastrointestinal Endoscopy Patient Name: Afia Gutierres Procedure Date: 03/21/2024 9:09 AM Date of : 1955 Admit Type: Outpatient Age: 68 Room: [place] [address] Gender: Female Note Status: Finalized Attending MD: Everett Dunlap MD, [id number] Procedure: Upper EUS Indications: For evaluation of [...] of history and physical. Referring Physician: Everett Dulnap MD (Referring MD) Medicines: Monitored Anesthesia Care [...] 3 months. Procedure Code(s): --- Professional --- 87660, Esophagogastroduodenos copy, flexible, transoral; w (more content not included)... Normal [facility] CNPNon 03-20-2024 CNPN Telephone (FVENDO) AFIA GUTIERRES ([id number]) 1955 F Date Time Provider Department 03/20/24 [...] appointment or your prep instructions please call [phone]. If you need to reschedule call [phone]. Allergies As of Date: 03/20/2024 Noted Allergy Reaction CEFDINIR 06/22/2023 14 - Other: See Comments IBUPROFEN 06/22/2023 16 - Unknown NSAIDS (NON-STEROIDAL ANTI-INFLAM*05/15/2023 14 - Other: See Comments Comments: Other Reaction(s): diarrhea, itching and rash [id number] REDUCTASE INHIBIT*01/23/2023 16 - Unknown Comments: Other [...] Encounter Status:Closed by CARMEN MEADOWS on 03/20/24 [facility] CNCOon 02-19-2024 CNCO Letter Text [facility] Kin 02-14-2024 EDWINN Telephone (KEE) AFIA GUTIERRES ([id number]) 1955 F Date Time Provider Department 02/14/24 EVERETT DUNLAP During your visit today, we recorded the following information about you: Natacha Lopez 02/14/2024 11:34 AM Signed Pt called in and had to cancel EUS 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 Please call pt back to reschedule. Elham Reid II 02/19/2024 1:09 PM Signed Spoke with patient, rescheduled EUS to 03/21/2024 at [facility]. Elham Pricet II Allergies As of Date: 02/14/2024 Noted Allergy Reaction CEFDINIR 06/22/2023 14 - Other: See Comments IBUPROFEN 06/22/2023 16 - Unknown NSAIDS (NON-STEROIDAL ANTI-INFLAM*05/15/2023 14 - Other: See Comments Comments: Other Reaction(s): diarrhea, itching and rash [id number] REDUCTASE INHIBIT*01/23/2023 16 - Unknown Comments: Other [...] Status:Closed by ELHAM REID II on 02/19/24 [facility] Kin 02-13-2024 EDWINN Telephone (FVENDO) AFIA GUTIERRES ([id number]) 1955 F Date Time Provider Department 02/13/24 [...] appointment or your prep instructions please call [phone]. If you need to reschedule call [phone]. Allergies As of Date: 02/13/2024 Noted Allergy Reaction CEFDINIR 06/22/2023 14 - Other: See Comments IBUPROFEN 06/22/2023 16 - Unknown NSAIDS (NON-STEROIDAL ANTI-INFLAM*05/15/2023 14 - Other: See Comments Comments: Other Reaction(s): diarrhea, itching and rash [id number] REDUCTASE INHIBIT*01/23/2023 16 - Unknown Comments: Other [...] Status:Closed by CARMEN MEADOWS on 02/13/24 Normal [facility] Laboratory - Chemistry and C hemistry - challengeon 01-16-2024 Bilirubin Ql (U) [facility] Glucose (U) [Mass/Vol] Negative [facility] Ketones Ql (U) Negative [facility] pH (U) 5.5 [pH] [facility] Specific gravity (U) [Rel density] >=1.030 [facility] Urobilinogen (U) [Mass/Vol] 0.2 mg/dL [facility] Laboratory - Specimen inform ationon 01-16-2024 Appearance (U) clear [facility] Color (U) darkyellow [facility] Laboratory - Urinalysison Leukocyte esterase Test strip Ql (U) trace [facility] Nitrite Ql (U) Negative [facility] Protein Ql (U) 30mg/dl [facility] No Panel Informationon 01-15 Urine Occult Blood [facility] Urine Cultureon 01-16-2024 Bacteria identified Cx Nom (U) <9,000 colonies/ml mixed bacterial skin contaminants 2 Days PERFORMED BY: [place] [address] PATHOLOGIST PSYCHIATRIC SPECIALIST SHELTON NEVAREZ M.D. Normal [facility] Comment on above: Performed By: #### C UU #### [address] Urine cultureOrdered By: Bigelow nda Asha on 01-16-2024 Bacteria identified Cx Nom (U) Urine culture [facility] Basophils Auto (Bld) [#/Vol] on 01-03-2024 Basophils (Bld) [#/Vol] 0.0 10 3/uL 0.0-0.1 [facility] Basophils (Bld) [#/Vol] Automated basophil count 0.0-0.1 [facility] Basophils/100 WBC Auto (Bld) on 01-03-2024 Basophils/100 WBC (Bld) 0.4 % 0.2-2.0 [facility] Basophils/100 WBC (Bld) Automated basophil % 0.2-2.0 [facility] Eosinophils/100 WBC Auto (Bl d)on 01-03-2024 Eosinophils/100 WBC (Bld) 1.6 % 0.9-7.0 [facility] Eosinophils/100 WBC (Bld) Automated eosinophil % 0.9-7.0 [facility] Erythrocyte distribution wid th Auto (RBC) [Ratio]on 01-03-2024 Erythrocyte distribution width (RBC) [Ratio] 11.8 % 11.0-15.0 [facility] Erythrocyte distribution width (RBC) [Ratio] Erythrocyte distribution width [Ratio] by Automated count 11.0-15.0 [facility] Estimated glomerular filtrat ion rate (GFR) non- Americanon 01-03-2024 GFR/1.73 sq M.predicted among non-blacks MDRD (S/P/Bld) [Vol rate/Area] mL/min/{1.73_m2} >=60 mL/min/1.73m 2 [facility] GFR/1.73 sq M.predicted among non-blacks MDRD (S/P/Bld) [Vol rate/Area] Estimated glomerular filtration rate (GFR) non- >=60 mL/min/1.73m 2 [facility] Fibrin D-dimer [Presence] in Platelet poor plasma by Latex agglutinationon 01-03-2024 Fibrin D-dimer LA Ql (PPP) 0.62 mg/L FEU High <=0.59 [facility] Comment on above: RESULTS CALLED TO GREYSON COOL RN @BY Shira Tan [id number] in D-Dimer concentration observed withthromboembolic events can [...] plasma by Latex agglutination Critically high <=0.59 [facility] Comment on above: RESULTS CALLED TO GREYSON COOL RN @BY Shira Tan [id number] in D-Dimer concentration observed withthromboembolic events can [...] on 01-03-2024 Globulin (S) [Mass/Vol] 3.4 g/dL [facility] Globulin (S) [Mass/Vol] Serum globulin measurement by calculation (mass/volume) [facility] Hematocrit Auto (Bld) [Volum e fraction]on 01-03-2024 Hematocrit (Bld) [Volume fraction] 40.1 % 36.0-48.0 [facility] Hematocrit (Bld) [Volume fraction] Hematocrit [Volume Fraction] of Blood by Automated count 36.0-48.0 [facility] Hemoglobin [Mass/volume] in Bloodon 01-03-2024 Hemoglobin (Bld) [Mass/Vol] 13.0 g/dL 12.0-16.0 [facility] Hemoglobin (Bld) [Mass/Vol] Hemoglobin [Mass/volume] in Blood 12.0-16.0 [facility] Laboratory - Chemistry and C hemistry - challengeon 01-03-2024 Albumin [Mass/Vol] 3.6 g/dL 3.4-5.0 [facility] ALP [Catalytic activity/Vol] 53 U/L 46-116 [facility] ALT [Catalytic activity/Vol] 17 U/L 14-59 [facility] AST [Catalytic activity/Vol] 17 U/L 15-37 [facility] Bilirubin [Mass/Vol] 0.3 mg/dL 0.2-1.0 [facility] Calcium [Mass/Vol] 9.2 mg/dL 8.5-10.1 [facility] Chloride [Moles/Vol] 104 mmol/L 98-107 [facility] CO2 [Moles/Vol] 28.1 mmol/L 21.0-32.0 [facility] Creatinine [Mass/Vol] 0.72 mg/dL 0.55-1.02 [facility] GFR/1.73 sq M.predicted MDRD (S/P/Bld) [Vol rate/Area] mL/min/{1.73_m2} >=60 mL/min/1.73m 2 [facility] Glucose [Mass/Vol] 121 mg/dL High 74-106 [facility] Lactate [Moles/Vol] 2.4 mmol/L Critically high 0.4-2.0 [facility] Comment on above: RESULTS CALLED TO AP HART RN @BY Shira Garcia at [phone] Lipase [Catalytic activity/Vol] 36.0 U/L 16.0-77.0 [facility] Potassium [Moles/Vol] 3.1 mmol/L Low 3.5-5.1 [facility] Protein [Mass/Vol] 7.0 g/dL 6.4-8.2 [facility] Sodium [Moles/Vol] 142 mmol/L 136-145 [facility] Urea nitrogen [Mass/Vol] 14.0 mg/dL 7.0-18.0 [facility] Urea nitrogen/Creatinine [Mass ratio] 19.4 mg/mg [facility] Bilirubin Ql (U) Negative NEGATIVE [facility] Glucose (U) [Mass/Vol] Negative NEGATIVE [facility] Ketones Ql (U) Negative NEGATIVE [facility] pH (U) 6.5 [pH] 5.0-9.0 [facility] Specific gravity (U) [Rel density] 1.020 1.005-1.025 [facility] Urobilinogen Qn (U) 0.2 {Skip'U}/dL 0.2-1.0 [facility] Laboratory - Hematology and Cell countson 01-03-2024 Immature granulocytes/100 WBC (Bld) 0.2 % 0.0-0.5 [facility] - Specimen inform ationon 01-03-2024 Appearance (U) CLEAR CLEAR [facility] Color (U) YELLOW YELLOW [facility] Laboratory - Urinalysison Leukocyte esterase Test strip Ql (U) Negative NEGATIVE [facility] Nitrite Ql (U) Negative NEGATIVE [facility] Protein Ql (U) Negative NEG/TRACE [facility] Leukocytes [#/volume] correc jer for nucleated erythrocytes in Blood by Automated counon 01-03-2024 WBC corrected for nucl RBC Auto (Bld) [#/Vol] 5.0 10 3/uL 4.0-11.0 [facility] WBC corrected for nucl RBC Auto (Bld) [#/Vol] Leukocytes [#/volume] corrected for nucleated erythrocytes in Blood by Automated coun .0-11.0 [facility] Lymphocytes Auto (Bld) [#/Vo l]on 01-03-2024 Lymphocytes (Bld) [#/Vol] 2.2 10 3/uL 1.2-3.8 [facility] Lymphocytes (Bld) [#/Vol] Lymphocytes [#/volume] in Blood by Automated count 1.2-3.8 [facility] Lymphocytes/100 WBC Auto (Bl d)on 01-03-2024 Lymphocytes/100 WBC (Bld) 43.3 % 20.5-60.0 [facility] Lymphocytes/100 WBC (Bld) Lymphocytes/100 leukocytes in Blood by Automated count .-60.0 [facility] MCH Auto (RBC) [Entitic mass ]on 01-03-2024 MCH (RBC) [Entitic mass] 32.3 pg 26.7-34.0 [facility] MCH (RBC) [Entitic mass] MCH [Entitic mass] by Automated count 26.7-34.0 [facility] MCHC Auto (RBC) [Mass/Vol]on 01-03-2024 MCHC (RBC) [Mass/Vol] 32.4 g/dL 29.9-35.2 [facility] MCHC (RBC) [Mass/Vol] MCHC [Mass/volume] by Automated count 29.9-35.2 [facility] MCV Auto (RBC) [Entitic vol] on 01-03-2024 MCV (RBC) [Entitic vol] 99.5 fL High 81.0-99.0 [facility] MCV (RBC) [Entitic vol] MCV [Entitic volume] by Automated count High 81.0-99.0 [facility] Monocytes Auto (Bld) [#/Vol] on 01-03-2024 Monocytes (Bld) [#/Vol] 0.4 10 3/uL 0.3-0.8 [facility] Monocytes (Bld) [#/Vol] Automated blood monocyte count 0.3-0.8 [facility] Monocytes/100 WBC Auto (Bld) on 01-03-2024 Monocytes/100 WBC (Bld) 7.4 % 1.7-12.0 [facility] Monocytes/100 WBC (Bld) Automated monocyte % 1.7-12.0 [facility] Neutrophils Auto (Bld) [#/Vo l]on 01-03-2024 Neutrophils (Bld) [#/Vol] 2.4 10 3/uL 1.4-6.5 [facility] Neutrophils (Bld) [#/Vol] Neutrophils [#/volume] in Blood by Automated count 1.4-6.5 [facility] Neutrophils/100 WBC Auto (Bl d)on 01-03-2024 Neutrophils/100 WBC (Bld) 47.1 % 43.0-75.0 [facility] Neutrophils/100 WBC (Bld) Automated neutrophil % 43.0-75.0 [facility] No Panel Informationon 01-02 Eosinophils # (Auto) 0.1 10 3/uL 0.0-0.7 [facility] Immature Granulocyte # (Auto) 0.01 10 3/uL 0.00-0.03 [facility] Troponin I High Sensitivity <4.0 pg/mL Low 4.0-51.3 [facility] Comment on above: CUT-OFF POINTS HAVE [...] AND CLINICAL INFORMATION. Urine Microscopic Review NO [facility] Urine Occult Blood Negative NEGATIVE [facility] Platelet mean volume Auto (B ld) [Entitic vol]on 01-03-2024 Platelet mean volume (Bld) [Entitic vol] 9.5 fL 9.5-13.5 [facility] Platelet mean volume (Bld) [Entitic vol] Platelet mean volume [Entitic volume] in Blood by Automated count 9.5-13.5 [facility] Platelets Auto (Bld) [#/Vol] on 01-03-2024 Platelets (Bld) [#/Vol] 160 10 3/uL 150-450 [facility] Platelets (Bld) [#/Vol] Platelets [#/volume] in Blood by Automated count 150-450 [facility] RBC Auto (Bld) [#/Vol]on RBC (Bld) [#/Vol] 4.03 10 6/uL Low 4.20-5.40 [facility] RBC (Bld) [#/Vol] Erythrocytes [#/volume] in Blood by Automated count Low 4.20-5.40 [facility] Serum or plasma albumin/glob ulin mass ratioon 01-03-2024 Albumin/Globulin [Mass ratio] 1.1 {ratio} [facility] Albumin/Globulin [Mass ratio] Serum or plasma albumin/globulin mass ratio [facility] Serum or plasma anion gap de terminationon 01-03-2024 Anion gap [Moles/Vol] 13.0 mmol/L 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 Previous work [...] Comments Other Reaction(s): diarrhea, itching and rash Rnehipj-Ise-Uwx Red* Unknown Other Reaction(s): Unknown Sulfamethoxazole-Tr* Unknown [...] cough, hemoptys (more content not included)... Normal [facility] HISTORY PHYSICALon HISTORY PHYSICAL HNO ID: [id number] Author: EVERETT DUNLAP MD Service: ? 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 Previous work [...] Comments Other Reaction(s): diarrhea, itching and rash Ancxero-Biv-Suw Red* Unknown Other Reaction(s): Unknown Sulfamethoxazole-Tr* Unknown [...] incontinence MUSCULOSKELETAL: (more content not included)... Normal [facility] Basophils Auto (Bld) [#/Vol] on 12-12-2023 Basophils (Bld) [#/Vol] 0.0 10 3/uL 0.0-0.1 [facility] Basophils/100 WBC Auto (Bld) on 12-12-2023 Basophils/100 WBC (Bld) 0.3 % 0.2-2.0 [facility] Eosinophils/100 WBC Auto (Bl d)on 12-12-2023 Eosinophils/100 WBC (Bld) 0.9 % 0.9-7.0 [facility] Erythrocyte distribution wid th Auto (RBC) [Ratio]on 12-12-2023 Erythrocyte distribution width (RBC) [Ratio] 11.8 % 11.0-15.0 [facility] Estimated glomerular filtrat ion rate (GFR) non- Americanon 12-12-2023 GFR/1.73 sq M.predicted among non-blacks MDRD (S/P/Bld) [Vol rate/Area] mL/min/{1.73_m2} >=60 mL/min/1.73m 2 [facility] Globulin Calc (S) [Mass/Vol] on 12-12-2023 Globulin (S) [Mass/Vol] 3.5 g/dL [facility] Hematocrit Auto (Bld) [Volum e fraction]on 12-12-2023 Hematocrit (Bld) [Volume fraction] 42.8 % 36.0-48.0 [facility] Hemoglobin [Mass/volume] in Bloodon 12-12-2023 Hemoglobin (Bld) [Mass/Vol] 13.9 g/dL 12.0-16.0 [facility] Laboratory - Chemistry and C hemistry - challengeon 12-12-2023 Bilirubin Ql (U) Negative NEGATIVE [facility] Glucose (U) [Mass/Vol] Negative NEGATIVE [facility] Ketones Ql (U) Negative NEGATIVE [facility] pH (U) 7.0 [pH] 5.0-9.0 [facility] Specific gravity (U) [Rel density] 1.015 1.005-1.025 [facility] Urobilinogen Qn (U) 0.2 {Skip'U}/dL 0.2-1.0 [facility] Albumin [Mass/Vol] 3.7 g/dL 3.4-5.0 [facility] ALP [Catalytic activity/Vol] 54 U/L 46-116 [facility] ALT [Catalytic activity/Vol] 18 U/L 14-59 [facility] AST [Catalytic activity/Vol] 17 U/L 15-37 [facility] Bilirubin [Mass/Vol] 0.3 mg/dL 0.2-1.0 [facility] Calcium [Mass/Vol] 9.4 mg/dL 8.5-10.1 [facility] Chloride [Moles/Vol] 99 mmol/L 98-107 [facility] CO2 [Moles/Vol] 27.4 mmol/L 21.0-32.0 [facility] Creatinine [Mass/Vol] 0.78 mg/dL 0.55-1.02 [facility] GFR/1.73 sq M.predicted MDRD (S/P/Bld) [Vol rate/Area] mL/min/{1.73_m2} >=60 mL/min/1.73m 2 [facility] Glucose [Mass/Vol] 151 mg/dL High 74-106 [facility] Potassium [Moles/Vol] 3.5 mmol/L 3.5-5.1 [facility] Protein [Mass/Vol] 7.2 g/dL 6.4-8.2 [facility] Sodium [Moles/Vol] 137 mmol/L 136-145 [facility] Urea nitrogen [Mass/Vol] 12.0 mg/dL 7.0-18.0 [facility] Urea nitrogen/Creatinine [Mass ratio] 15.4 mg/mg [facility] Laboratory - Hematology and Cell countson 12-12-2023 Immature granulocytes/100 WBC (Bld) 0.3 % 0.0-0.5 [facility] Laboratory - Microbiology an d Antimicrobial susceptibilityon 12-12-2023 SARS-CoV-2 (COVID-19) RNA JOSH+probe Ql (Unsp spec) Negative NEGATIVE [facility] Comment on above: This test has [...] inform ationon 12-12-2023 Appearance (U) CLEAR CLEAR [facility] Color (U) LT. YELLOW YELLOW [facility] Laboratory - Urinalysison Leukocyte esterase Test strip Ql (U) Negative NEGATIVE [facility] Nitrite Ql (U) Negative NEGATIVE [facility] Protein Ql (U) Negative NEG/TRACE [facility] Leukocytes [#/volume] correc jer for nucleated erythrocytes in Blood by Automated counon 12-12-2023 WBC corrected for nucl RBC Auto (Bld) [#/Vol] 5.7 10 3/uL 4.0-11.0 [facility] Lymphocytes Auto (Bld) [#/Vo l]on 12-12-2023 Lymphocytes (Bld) [#/Vol] 1.0 10 3/uL Low 1.2-3.8 [facility] Lymphocytes/100 WBC Auto (Bl d)on 12-12-2023 Lymphocytes/100 WBC (Bld) 18.0 % Low 20.5-60.0 [facility] MCH Auto (RBC) [Entitic mass ]on 12-12-2023 MCH (RBC) [Entitic mass] 32.4 pg 26.7-34.0 [facility] MCHC Auto (RBC) [Mass/Vol]on 12-12-2023 MCHC (RBC) [Mass/Vol] 32.5 g/dL 29.9-35.2 [facility] MCV Auto (RBC) [Entitic vol] on 12-12-2023 MCV (RBC) [Entitic vol] 99.8 fL High 81.0-99.0 [facility] Monocytes Auto (Bld) [#/Vol] on 12-12-2023 Monocytes (Bld) [#/Vol] 0.3 10 3/uL 0.3-0.8 [facility] Monocytes/100 WBC Auto (Bld) on 12-12-2023 Monocytes/100 WBC (Bld) 5.1 % 1.7-12.0 [facility] Neutrophils Auto (Bld) [#/Vo l]on 12-12-2023 Neutrophils (Bld) [#/Vol] 4.3 10 3/uL 1.4-6.5 [facility] Neutrophils/100 WBC Auto (Bl d)on 12-12-2023 Neutrophils/100 WBC (Bld) 75.4 % High 43.0-75.0 [facility] No Panel Informationon 12-11 Urine Microscopic Review NO [facility] Urine Occult Blood Negative NEGATIVE [facility] Eosinophils # (Auto) 0.1 10 3/uL 0.0-0.7 [facility] Immature Granulocyte # (Auto) 0.02 10 3/uL 0.00-0.03 [facility] Platelet mean volume Auto (B ld) [Entitic vol]on 12-12-2023 Platelet mean volume (Bld) [Entitic vol] 9.1 fL Low 9.5-13.5 [facility] Platelets Auto (Bld) [#/Vol] on 12-12-2023 Platelets (Bld) [#/Vol] 168 10 3/uL 150-450 [facility] RBC Auto (Bld) [#/Vol]on RBC (Bld) [#/Vol] 4.29 10 6/uL 4.20-5.40 [facility] Serum or plasma albumin/glob ulin mass ratioon 12-12-2023 Albumin/Globulin [Mass ratio] 1.1 {ratio} [facility] Serum or plasma anion gap de terminationon 12-12-2023 Anion gap [Moles/Vol] 14.1 mmol/L [facility] Kin 11-30-2023 KRISTINA Telephone (KEE) AFIA GUTIERRES ([id number]) 1955 F Date Time Provider Department 11/30/23 [...] Awaiting MRCP images to be uploaded to [employer]. Schedule follow-up visit in my pancreas clinic [...] Status:Closed by BETH SUMMERS on 12/04/23 Normal [facility] ISTAT XRay CREon 11-02-2023 ISTAT GFR > 60.0 Normal [facility] Comment on above: Result Comment: PERF ORMED BY: [place] [address] PATHOLOGIST PSYCHIATRIC SPECIALIST SHELTON NEVAREZ M.D. Performed By: #### I SCRE #### [address] MR abdomen wo/w conon 2023 MR abdomen wo/w con [facility] Main [place] [address] [place] [address] MRI Report Signed Patient: Afia Gutierres MR#: [id number] : 1955 Acct:[id number] Age/Sex: 68 / F ADM Date: 11/02/23 Loc: Room: Type: [facility] Attending Dr: Horacio Erwin MD Copies to: [...] Wai Denise M.D.11/02/2023 8:02 PM Dictation Location: [place] [address] Transcribed By: [facility] 11/02/232001 Dictated By: Wai Denise II, MD 11/02/231953 Signed By: 11/02/232001 Normal [facility] No Panel InformationOrdered By: Horacio Erwin on 11-02-2023 Bedside Estimated GFR (eGFR) > 60.0 [facility] Whole blood creatinine measu rementOrdered By: Horacio Erwin on 11-02-2023 Creatinine [Mass/Vol] 0.5 mg/dL Low 0.6-1.3 [facility] Comment on above: ER/ESD physician is notified/shown all ISTAT results.Critical values may be confirmed by laboratory testing ifdeemed necessary by ER attending doctor. Result Comment: ER/E SD physician is notified/shown all ISTAT results. Critical values may be confirmed by laboratory testing if deemed necessary by ER attending doctor. Performed By: #### I SCRE #### [facility] [address] [place] [address] Laboratory - Chemistry and C hemistry - challengeon 04-12-2024 Bilirubin Ql (U) Negative [facility] Glucose (U) [Mass/Vol] Negative [facility] Ketones Ql (U) Negative [facility] pH (U) 5 [pH] [facility] Specific gravity (U) [Rel density] 1.025 [facility] Urobilinogen (U) [Mass/Vol] 0.2 mg/dL [facility] Laboratory - Specimen inform ationon 06-22-2023 Appearance (U) cloudy [facility] Color (U) DarkYellow [facility] Laboratory - Urinalysison Leukocyte esterase Test strip Ql (U) Negative [facility] Nitrite Ql (U) Positive [facility] Protein Ql (U) Negative [facility] No Panel Informationon 06-21 Urine Occult Blood Negative [facility] Urine culture routineOrdered By: Nettie Iqbal on 06-22-2023 Bacteria identified Cx Nom (U) Citrobacter freundii complex [facility] IR VERTEBROPLASTY CERVICOTHO RACICon 06-15-2023 IR [...] Ricardo Carbajal MD 06/18/23 Final result Normal [facility] IR VERTEBROPLASTY EACH ADDIT Kalanin 06-15-2023 IR VERTEBROPLASTY EACH ADDITIONAL IMPRESSION: Technically [...] Ricardo Carbajal MD 06/18/23 Final result Normal [facility] CBCon 06-13-2023 Erythrocyte distribution width (RBC) [Ratio] 13.2 % Normal 11.8-14.4 [facility] Comment on above: Performed By: #### C DARIELA PT, CP #### [facility] [address] [place] [address] [place] [address] Credit Control Officer: Janna Monzon MD Hematocrit (Bld) [Volume fraction] 44.8 % Normal 36.3-47.1 [facility] Comment on above: Performed By: #### C DARIELA PT, CP #### [address] [place] [address] Credit Control Officer: Janna Monzon MD Hemoglobin (Bld) [Mass/Vol] 14.2 g/dL Normal 11.9-15.1 [facility] Comment on above: Performed By: #### C DARIELA PT, CP #### [address] [place] [address] Credit Control Officer: Janna Monzon MD MCH (RBC) [Entitic mass] 31.8 pg Normal 25.2-33.5 [facility] Comment on above: Performed By: #### C BC, PT, CP #### [address] [place], [place] [id number] Credit Control Officer: Janna Monzon MD MCHC (RBC) [Mass/Vol] 31.7 g/dL Normal 28.4-34.8 [facility] Comment on above: Performed By: #### C BC, PT, CP #### [address] [place], [facility] Credit Control Officer: Janna Monzon MD MCV (RBC) [Entitic vol] 100.2 fL Normal 82.6-102.9 [facility] Comment on above: Performed By: #### C BC, PT, CP #### [address] [place], [facility]83 Credit Control Officer: Janna Monzon MD NRBC Automated 0.0 per 100 WBC Normal 0.0 [facility] Comment on above: Performed By: #### C BC, PT, CP #### [address] [place], [facility]83 Credit Control Officer: Janna Monzon MD Platelet mean volume (Bld) [Entitic vol] 9.9 fL Normal 8.1-13.5 [facility] Comment on above: Performed By: #### C DARIELA, PT, CP #### [address] [place], [place] [address] Credit Control Officer: Janna Monzon MD Platelets (Bld) [#/Vol] 167 10*3/uL Normal 138-453 [facility] Comment on above: Performed By: #### C BC, PT, CP #### [address] [place], [place] [id number] Credit Control Officer: Janna Monzon MD RBC (Bld) [#/Vol] 4.47 10*6/uL Normal 3.95-5.11 [facility] Comment on above: Performed By: #### C BC, PT, CP #### [facility] [address] [place], [place] [id number] Credit Control Officer: Janna Monzon MD WBC (Bld) [#/Vol] 4.4 10*3/uL Normal 3.5-11.3 [facility] Comment on above: Performed By: #### C BC, PT, CP #### [facility] [address] [address] [place], [place] [id number] Credit Control Officer: Janna Monzon MD Comp Metabolic Profon 2023 Albumin [Mass/Vol] 4.3 g/dL Normal 3.5-5.2 [facility] Comment on above: Performed By: #### C BC, PT, CP #### [address] [place] [address] Credit Control Officer: Janna Monzon MD Albumin/Glob Ratio 1.3 Normal 1.0-2.5 [facility] Comment on above: Performed By: #### C BC, PT, CP #### [address] [place], [place] [id number] Credit Control Officer: Janna Monzon MD Alkaline Phos 78 U/L Normal 35-104 [facility] Comment on above: Performed By: #### C BC, PT, CP #### [address] [place] [address] Credit Control Officer: Janna Monzon MD ALT [Catalytic activity/Vol] 11 U/L Normal 5-33 [facility] Comment on above: Performed By: #### C BC, PT, CP #### [address] [place], [place] [id number] Credit Control Officer: Janna Monzon MD Anion gap [Moles/Vol] 8 mmol/L Low 9-17 [facility] Comment on above: Performed By: #### C BC, PT, CP #### [address] [place], [place] [id number] Credit Control Officer: Janna Monzon MD AST [Catalytic activity/Vol] 21 U/L Normal <32 [facility] Comment on above: Performed By: #### C BC, PT, CP #### [facility] [address] [place], [place] [address] Credit Control Officer: Janna Monzon MD Bilirubin [Mass/Vol] 0.2 mg/dL Low 0.3-1.2 [facility] Comment on above: Performed By: #### C BC, PT, CP #### [facility] [address] [place], [place] [id number] Credit Control Officer: Janna Monzon MD BUN/CRE Ratio 30 High 9-20 [facility] Comment on above: Performed By: #### C BC, PT, CP #### [facility] [address] [place], [place] [address]83 Credit Control Officer: Janna Monzon MD Calcium [Mass/Vol] 9.3 mg/dL Normal 8.6-10.4 [facility] Comment on above: Performed By: #### C BC, PT, CP #### [facility] [address] [place], [place] 58[address]83 Credit Control Officer: Janna Monzon MD Chloride [Moles/Vol] 103 mmol/L Normal 98-107 [facility] Comment on above: Performed By: #### C BC, PT, CP #### [facility] [address] [place], [place] [address]83 Credit Control Officer: Janna Monzon MD CO2 [Moles/Vol] 29 mmol/L Normal 20-31 [facility] Comment on above: Performed By: #### C BC, PT, CP #### [facility] [address] [place], [place] [id number] Credit Control Officer: Janna Monzon MD Creatinine [Mass/Vol] 0.5 mg/dL Normal 0.5-0.9 [facility] Comment on above: Performed By: #### C DARIELA, PT, CP #### [address] [place] [address] Credit Control Officer: Janna Monzon MD GFR/1.73 sq M.predicted among non-blacks MDRD (S/P/Bld) [Vol rate/Area] mL/min/{1.73_m2} Normal >60 [facility] Comment on above: Result Comment: [...] By: #### C DARIELA PT, CP #### [address] [place] [address] Credit Control Officer: Janna Monzon MD Glucose [Mass/Vol] 77 mg/dL Normal 70-99 [facility] Comment on above: Performed By: #### C DARIELA PT, CP #### [address] [place] [address] Credit Control Officer: Janna Monzon MD Potassium [Moles/Vol] 4.0 mmol/L Normal 3.7-5.3 [facility] Comment on above: Performed By: #### C DARIELA, PT, CP #### [address] [place] [address] Credit Control Officer: Janna Monzon MD Protein [Mass/Vol] 7.7 g/dL Normal 6.4-8.3 [facility] Comment on above: Performed By: #### C DARIELA PT, CP #### [address] [place] [address] Credit Control Officer: Janna Monzon MD Sodium [Moles/Vol] 140 mmol/L Normal 135-144 [facility] Comment on above: Performed By: #### C BC, PT, CP #### [facility] [address] [place] [address] Credit Control Officer: Janna Monzon MD Urea nitrogen [Mass/Vol] 15 mg/dL Normal 8-23 [facility] Comment on above: Performed By: #### C BC, PT, CP #### [facility] [address] [place] [address] Credit Control Officer: Janna Monzon MD PTon 06-13-2023 INR Coag (PPP) [Relative time] 0.9 {INR} Normal [facility] Comment on above: Result Comment: Therapeutic Range: Moderate Anticoagulant Intensity: INR = 2.0-3.0 High Anticoagulant Intensity: INR = 2.5-3.5 Performed By: #### C BC, PT, CP #### [facility] [address] [place] [address] [place] [address] Credit Control Officer: Janna Monzon MD PT Coag (PPP) [Time] 12.3 s Normal 11.7-14.1 [facility] Comment on above: Performed By: #### C BC, PT, CP #### [address] [place] [address] Credit Control Officer: Janna Monzon MD Automated erythrocytes count in urine sediment (number/area)Ordered By: Nettie Iqbal on 01-11-2023 RBC Auto (Urine sed) [#/Area] 3-4 [HPF] 0-4 [facility] Automated leukocytes count i n urine sediment (number/area)Ordered By: Nettie Iqbal on 01-11-2023 WBC Auto (Urine sed) [#/Area] 0-1 [HPF] 0-4 [facility] Automated urine sediment bina cium oxalate crystal count by microscopy (number/high powOrdered By: Nettie Iqbal on 01-11-2023 Calcium oxalate crystals LM.HPF (Urine sed) [#/Area] 3+ [HPF] [facility] Bilirubin Test strip Ql (U)O rdered By: Nettie Iqbal on 01-11-2023 Bilirubin Ql (U) Negative Negative [facility] Color Auto (U)Ordered By: Jeffery Iqbal on 01-11-2023 Color (U) Dark yellow Yellow [facility] Ketones Auto test strip (U) [Mass/Vol]Ordered By: Nettie Iqbal on 01-11-2023 Ketones (U) [Mass/Vol] Trace Negative [facility] Laboratory - UrinalysisOrder ed By: Nettie Iqbal on 01-11-2023 Hyaline casts LM Ql (Urine sed) 0-8 [LPF] 0-8 [facility] Nitrite Test strip Ql (U)Ord ered By: Nettie Iqbal on 01-11-2023 Nitrite Ql (U) Negative Negative [facility] Protein Auto test strip (U) [Mass/Vol]Ordered By: Nettie Iqbal on 01-11-2023 Protein (U) [Mass/Vol] Negative Negative [facility] Specific gravity Auto test s trip (U) [Rel density]Ordered By: Nettie Iqbal on 01-11-2023 Specific gravity (U) [Rel density] 1.022 1.001-1.030 [facility] Squamous epithelial cells de tection in urine sediment by light microscopyOrdered By: Nettie Iqbal on 01-11-2023 Epithelial cells.squamous LM Ql (Urine sed) 0-1 [HPF] 0-2 [facility] Urine bacteria detection by automated methodOrdered By: Nettie Iqbal on 01-11-2023 Bacteria Auto Ql (U) 1+ None Seen [facility] Urine clarity by refractomet ry automatedOrdered By: Nettie Iqbal on 01-11-2023 Clarity Refractometry automated (U) Cloudy Clear [facility] Urine culture routineOrdered By: Nettie Iqbal on 01-11-2023 Bacteria identified Cx Nom (U) Strep agalactiae - (group b) [facility] Urine glucose measurement by automated test strip (mass/volume)Ordered By: Nettie Iqbal on 01-11-2023 Glucose Auto test strip (U) [Mass/Vol] Normal mg/dL Normal [facility] Urine hemoglobin detection b y automated test stripOrdered By: Nettie Iqbal on 01-11-2023 Hemoglobin Auto test strip Ql (U) Negative Negative [facility] Urine leukocyte esterase det ection by automated test stripOrdered By: Nettie Iqbal on 01-11-2023 Leukocyte esterase Auto test strip Ql (U) Negative Negative [facility] Urine sediment crystal ident ification by light microscopyOrdered By: Nettie Iqbal on 01-11-2023 Crystals LM Nom (Urine sed) N/A [facility] Urobilinogen Auto test strip (U) [Mass/Vol]Ordered By: Nettie Iqbal on 01-11-2023 Urobilinogen (U) [Mass/Vol] Normal mg/dL Normal [facility] pH Auto test strip (U)Ordere d By: Nettie Iqbal on 01-11-2023 pH (U) 5.5 [pH] 5.0-9.0 [facility] ED Note-Physicianon 12-26-19 ED Note-Physician [id number]#1.0 0TIFF Normal [facility] Automated erythrocytes count in urine sediment (number/area)Ordered By: Nettie Iqbal on 11-20-2022 RBC Auto (Urine sed) [#/Area] 20-49 [HPF] 0-4 [facility] Automated leukocytes count i n urine sediment (number/area)Ordered By: Nettie Iqbal on 11-20-2022 WBC Auto (Urine sed) [#/Area] Innumerable [HPF] 0-4 [facility] Automated urine sediment ibna cium oxalate crystal count by microscopy (number/high powOrdered By: Nettie Iqbal on 11-20-2022 Calcium oxalate crystals LM.HPF (Urine sed) [#/Area] Rare [HPF] [facility] Bilirubin Test strip Ql (U)O rdered By: Nettie Iqbal on 11-20-2022 Bilirubin Ql (U) Negative Negative [facility] Casts typing in urine sedime nt by light microscopyOrdered By: Nettie Iqbal on 11-20-2022 Casts LM Nom (Urine sed) None seen [LPF] None Seen [facility] Color Auto (U)Ordered By: Jeffery Iqbal on 11-20-2022 Color (U) Yellow Yellow [facility] Ketones Auto test strip (U) [Mass/Vol]Ordered By: Nettie Iqbal on 11-20-2022 Ketones (U) [Mass/Vol] 1+ Negative [facility] - UrinalysisOrder ed By: Nettie Iqbal on 11-20-2022 Hyaline casts LM Ql (Urine sed) None seen [LPF] 0-8 [facility] Nitrite Test strip Ql (U)Ord ered By: Nettie Iqbal on 11-20-2022 Nitrite Ql (U) Negative Negative [facility] Protein Auto test strip (U) [Mass/Vol]Ordered By: Nettie Iqbal on 11-20-2022 Protein (U) [Mass/Vol] Trace mg/dL Negative [facility] Specific gravity Auto test s trip (U) [Rel density]Ordered By: Nettie Iqbal on 11-20-2022 Specific gravity (U) [Rel density] 1.008 1.001-1.030 [facility] Squamous epithelial cells de tection in urine sediment by light microscopyOrdered By: Nettie Iqbal on 11-20-2022 Epithelial cells.squamous LM Ql (Urine sed) 1-2 [HPF] 0-2 [facility] Urine bacteria detection by automated methodOrdered By: Nettie Iqbal on 11-20-2022 Bacteria Auto Ql (U) 4+ None Seen [facility] Urine clarity by refractomet ry automatedOrdered By: Nettie Iqbal on 11-20-2022 Clarity Refractometry automated (U) Turbid Clear [facility] Urine culture routineOrdered By: Nettie Iqbal on 11-20-2022 Bacteria identified Cx Nom (U) Klebsiella oxytoca [facility] Urine glucose measurement by automated test strip (mass/volume)Ordered By: Nettie Iqbal on 11-20-2022 Glucose Auto test strip (U) [Mass/Vol] Normal mg/dL Normal [facility] Urine hemoglobin detection b y automated test stripOrdered By: Nettie Iqbal on 11-20-2022 Hemoglobin Auto test strip Ql (U) 3+ Negative [facility] Urine leukocyte esterase det ection by automated test stripOrdered By: Nettie Iqbal on 11-20-2022 Leukocyte esterase Auto test strip Ql (U) 4+ Negative [facility] Urobilinogen Auto test strip (U) [Mass/Vol]Ordered By: Nettie Iqbal on 11-20-2022 Urobilinogen (U) [Mass/Vol] Normal mg/dL Normal [facility] pH Auto test strip (U)Ordere d By: Nettie Iqbal on 11-20-2022 pH (U) 7.5 [pH] 5.0-9.0 [facility] COVID Quick Testingon 2022 Result Negative [employer] Other PROF CHEM 8 (BAS METB)on Anion gap [Moles/Vol] 18.4 mmol/L Normal [facility] Comment on above: Performed By: #### B NILSA, TSH #### [facility] [address] [place] [address] Dr. David Cannon Calcium [Mass/Vol] 9.5 mg/dL Normal 8.5-10.1 [facility] Comment on above: Performed By: #### B NILSA, TSH #### [facility] [address] [address] [address] David Cannon Chloride [Moles/Vol] 104 mmol/L Normal 98-107 [facility] Comment on above: Performed By: #### B NILSA, TSH #### [facility] [address] [place] [address] Dr. David Cannon CO2 [Moles/Vol] 23.5 mmol/L Normal 21.0-32.0 [facility] Comment on above: Performed By: #### B NILSA, TSH #### [facility] [address] [place] [address] Dr. David Cannon Creatinine [Mass/Vol] 0.87 mg/dL Normal 0.55-1.02 [facility] Comment on above: Performed By: #### B NILSA, TSH #### [facility] [address] [place] [address] Dr. David Cannon EGFR-AF SRI LANKAN >60 Normal >=60 [facility] Comment on above: Performed By: #### B NILSA, TSH #### [facility] [address] [place] [address] Dr. David Cannon EGFR-NON AF SRI LANKAN >60 Normal >=60 [facility] Comment on above: Performed By: #### B MP, TSH #### [facility] [address] [place] [address] Dr. David Cannon Glucose [Mass/Vol] 142 mg/dL Critically high 74-106 T [facility] Comment on above: Performed By: #### B NILSA, TSH #### [facility] [address] [place] [address] Dr. David Cannon Potassium [Moles/Vol] 3.9 mmol/L Normal 3.5-5.1 [facility] Comment on above: Performed By: #### B NILSA, TSH #### [facility] [address] [place] [address] Dr. David Cannon Sodium [Moles/Vol] 142 mmol/L Normal 136-145 [facility] Comment on above: Performed By: #### B NILSA, TSH #### [facility] [address] [place] [address] Dr. David Cannon Urea nitrogen [Mass/Vol] 15.0 mg/dL Normal 7.0-18.0 [facility] Comment on above: Performed By: #### B NILSA, TSH #### [facility] [address] [place] [address] Dr. David Canonn Urea nitrogen/Creatinine [Mass ratio] 17.2 mg/mg Normal [facility] Comment on above: Performed By: #### B NILSA, TSH #### [facility] [address] [place] [address] Dr. David Cannon TSHon 07-27-2022 TSH 1.753 uIU/mL Normal 0.358-3.740 [facility] Comment on above: Performed By: #### B NILSA, TSH #### [facility] [address] [place] [address] Dr. David Cannon VITAMIN B12on 07-27-2022 Cobalamin (Vitamin B12) [Mass/Vol] 938.0 pg/mL Normal 193.0-986.0 [facility] Comment on above: Performed By: #### V ITB12 ####[facility] [address] [place], [place] [address]Ua. David Cannon VITAMIN D 25 OHon 07-27-2022 VIT D 25-OH 45.3 ng/mL Normal [facility] Comment on above: Performed By: #### V ITAD ####[facility] [address] [place], [place] [address]Eh. David Cannon VIT D RANGES SEE BELOW Normal [facility] Comment on above: Result Comment: <20 ng/mL Vit D deficient 20 - <30 ng/mL Vit D insufficient 30 - 100 ng/mL Vit D sufficient >100 ng/mL Potential Toxicity Performed By: #### V ITAD ####[facility] [address] [place] [id number]. David Cannon XR HIP RT 2 3V [...] by: JANNA HASSAN Date: 2022-07-27 21:48 Normal [facility] MG MAMM SCREEN 3D ERIC CADon 07-20-2022 MG MAMM SCREEN 3D ERIC CAD Patient: AFIA GUTIERRES Exam Date: 07/20/2022 : 1955 Gender:F Ordering : DR PHANI PRUITT D.O. Admission #: [id number] Family : Order #: [id number] CLICK HERE TO VIEW EXAM RADIOLOGY REPORT [...] colon cancer at age 72. LOCATION: [facility] BREAST COMPOSITION: Scattered areas fibroglandular [...] Cormier M.D. on 07/20/2022 at 14:09 Normal [facility] XR DEXA BONE DENSITYon 07-20 [...] by: CELIA CORMIER Date: 2022-07-20 14:26 Normal [facility] Urinalysis - AUTOMATEDon Appearance (U) clear [employer] Other Bilirubin Ql (U) Negative [employer] Other Color (U) yellow [employer] Other Glucose Ql (U) Negative [employer] Other Hemoglobin Ql (U) Negative mo[employer] ([employer]) Other Ketones Ql (U) Negative [employer] Other Leukocyte esterase Test strip Ql (U) Negative [employer] Other Nitrite Ql (U) Negative [employer] Other pH (U) 5.5 [pH] [employer] Other Protein Ql (U) Negative [employer] Other Specific gravity (U) [Rel density] 1.025 [employer] Other Urobilinogen (U) [Mass/Vol] 0.2 mg/dL [employer] Other Urinalysis - AUTOMATED [employer] Other XR TSPINE 2 VIEWSon 06-17-19 23 [...] CELIA CORMIER Date: 2022-06-16 13:46 Normal [facility] BNPon 06-07-2022 Natriuretic peptide B (Bld) [Mass/Vol] 68.0 pg/mL Normal <=900.0 [facility] Comment on above: Performed By: #### C RP, CMP, BNP ####[facility] [address] [place], [place] [address]NdGerry Cannon CBC AUTO DIFFon 06-07-2022 BASO # 0.0 103/ul Normal 0.0-0.1 [facility] Comment on above: Performed By: #### C BC ####[facility] [address] [place] [address]Dr. David Cannon Basophils/100 WBC (Bld) 0.5 % Normal 0.2-2.0 [facility] Comment on above: Performed By: #### C BC ####[facility] [address] [place] [address]Dr. David Cannon EO # 0.2 103/ul Normal 0.0-0.7 [facility] Comment on above: Performed By: #### C BC ####[facility] [address] [place], [place] [address]Dr. David Cannon Eosinophils/100 WBC (Bld) 2.0 % Normal 0.9-7.0 [facility] Comment on above: Performed By: #### C BC ####[facility] [address] [place], [place] [address]Dr. David Cannon Erythrocyte distribution width (RBC) [Ratio] 12.3 % Normal 11.0-15.0 [facility] Comment on above: Performed By: #### C BC ####[facility] [address] [place], [place] [address]Dr. David Cannon Hematocrit (Bld) [Volume fraction] 44.4 % Normal 36.0-48.0 [facility] Comment on above: Performed By: #### C BC ####[facility] [address] [place], [place] [address]Dr. David Cannon Hemoglobin (Bld) [Mass/Vol] 14.3 g/dL Normal 12.0-16.0 [facility] Comment on above: Performed By: #### C BC ####[facility] [address] [place], [place] [address]Dr. David Cannon IG # 0.01 10e3/ul Normal 0.00-0.03 [facility] Comment on above: Performed By: #### C BC ####[facility] [address] [place], [place] [address]Dr. David Cannon IG % 0.1 % Normal 0.0-0.5 [facility] Comment on above: Performed By: #### C BC ####[facility] [address] [place] [address]Dr. David Cannon LYMPH # 2.7 103/ul Normal 1.2-3.8 [facility] Comment on above: Performed By: #### C BC ####[facility] [address] [place] [address]Dr. David Cannon Lymphocytes/100 WBC (Bld) 37.0 % Normal 20.5-60.0 [facility] Comment on above: Performed By: #### C BC ####[facility] [address] [place] [address]Dr. David Cannon MANUAL DIFF REQ NO Normal [facility] Comment on above: Performed By: #### C BC ####[facility] [address] [place] [address]Dr. David Cannon MCH (RBC) [Entitic mass] 31.4 pg Normal 26.7-34.0 [facility] Comment on above: Performed By: #### C BC ####[facility] [address] [place] [address]Dr. David Cannon MCHC (RBC) [Mass/Vol] 32.2 g/dL Normal 29.9-35.2 [facility] Comment on above: Performed By: #### C BC ####[facility] [address] [place] [address]Dr. David Cannon MCV (RBC) [Entitic vol] 97.4 fL Normal 81.0-99.0 [facility] Comment on above: Performed By: #### C BC ####[facility] [address] [place] [address]Dr. David Cannon MONO # 0.6 103/ul Normal 0.3-0.8 [facility] Comment on above: Performed By: #### C BC ####[facility] [address] [place] [address]Dr. David Cannon Monocytes/100 WBC (Bld) 7.8 % Normal 1.7-12.0 [facility] Comment on above: Performed By: #### C BC ####[facility] [address] [place] [address]Dr. David Cannon NEUT # 3.9 103/ul Normal 1.4-6.5 [facility] Comment on above: Performed By: #### C BC ####[facility] [address] [place], [place] [address]Vb. David Cannon Neutrophils/100 WBC (Bld) 52.6 % Normal 43.0-75.0 [facility] Comment on above: Performed By: #### C BC ####[facility] [address] [place] [address]Dr. David Cannon Platelet mean volume (Bld) [Entitic vol] 9.0 fL Critically low 9.5-13.5 [facility] Comment on above: Performed By: #### C BC ####[facility] [address] [place] [address]Dr. David Cannon PLT 233 103/ul Normal 150-450 [facility] Comment on above: Performed By: #### C BC ####[facility] [address] [place] [address]Dr. David Cannon RBC 4.56 106/ul Normal 4.20-5.40 [facility] Comment on above: Performed By: #### C BC ####[facility] [address] [place] [address]Dr. David Cannon WBC 7.4 103/ul Normal 4.0-11.0 [facility] Comment on above: Performed By: #### C BC ####[facility] [address] [place] [address]Dr. David Cannon CRPon 06-07-2022 CRP [Mass/Vol] mg/L Normal <=1.0 [facility] Comment on above: Performed By: #### C RP, CMP, BNP ####[facility] [address] [place] [id number]. David Cannon CULTURE URINEon 06-07-2022 CULTURE URINE Culture Observations : LIGHT GROWTH OF MIXED GENITAL ANISHA. NO POTENTIAL PATHOGENS SEEN. Normal [facility] Comment on above: Performed By: #### U RCX ####[facility] [address] [place] [address]Dr. David ADAIR URINE PROFILEon 3 Bilirubin Ql (U) Negative Normal NEGATIVE [facility] Comment on above: Performed By: #### B MP, TSH #### [facility] [address] [place] [address] Dr. David Cannon Clarity (U) CLEAR Normal CLEAR [facility] Comment on above: Performed By: #### B MP, TSH #### [facility] [address] [address] [address] David Cannon Color (U) LT. YELLOW Normal YELLOW [facility] Comment on above: Performed By: #### B MP, TSH #### [facility] [address] [place] [address] Dr. David OWEN A micrscopic examination will be performed if indicated. Normal [facility] Comment on above: Performed By: #### B MP, TSH #### [facility] [address] [place] [address] Dr. David Cannon Glucose Ql (U) Negative Normal NEGATIVE [facility] Comment on above: Performed By: #### B MP, TSH #### [facility] [address] [place] [address] Dr. David Cannon Hemoglobin Ql (U) Negative Normal NEGATIVE [facility] Comment on above: Performed By: #### B MP, TSH #### [facility] [address] [address] [address] David Cannon Ketones Ql (U) Negative Normal NEGATIVE [facility] Comment on above: Performed By: #### B MP, TSH #### [facility] [address] [address] [address] David Cannon LEUKOCYTES SMALL Abnormal NEGATIVE [facility] Comment on above: Performed By: #### B MP, TSH #### [facility] [address] [place] [address] Dr. David Cannon Nitrite Ql (U) Negative Normal NEGATIVE [facility] Comment on above: Performed By: #### B MP, TSH #### [facility] [address] [place] [address] Dr. David Cannon pH (U) 6.0 [pH] Normal 5-9 [facility] Comment on above: Performed By: #### B MP, TSH #### [facility] [address] [address] [address] David Cannon SPEC GRAVITY 1.010 Normal 1.005-<=1.02 5 [facility] Comment on above: Performed By: #### B MP, TSH #### [facility] [address] [place] [address] Dr. David Cannon UA PROTEIN Negative Normal NEGATIVE/ TRACE [facility] Comment on above: Performed By: #### B MP, TSH #### [facility] [address] [place] [address] Dr. David Cannon UR MICRO IND INDICATED Normal [facility] Comment on above: Performed By: #### B NILSA, TSH #### [facility] [address] [place] [address] Dr. David Cannon Urobilinogen Qn (U) 0.2 {Skip'U}/dL Normal 0.2 - 1. 0 [facility] Comment on above: Performed By: #### B MP, TSH #### [facility] [address] [place] [address] Dr. David Cannon PROF 14(COMP METB)on 023 Albumin [Mass/Vol] 4.3 g/dL Normal 3.4-5.0 [facility] Comment on above: Performed By: #### C RP, CMP, BNP ####[facility] [address] [place] [address]Dr. David Cannon Albumin/Globulin [Mass ratio] 1.1 {ratio} Normal [facility] Comment on above: Performed By: #### C RP, CMP, BNP ####[facility] [address] [place] [address]Dr. David Cannon ALP [Catalytic activity/Vol] 82 U/L Normal 46-116 [facility] Comment on above: Performed By: #### C RP, CMP, BNP ####[facility] [address] [place] [address]Dr. David Cannon ALT [Catalytic activity/Vol] 21 U/L Normal 14-59 [facility] Comment on above: Performed By: #### C RP, CMP, BNP ####[facility] [address] [place] [address]Dr. David Cannon Anion gap [Moles/Vol] 12.3 mmol/L Normal [facility] Comment on above: Performed By: #### C RP, CMP, BNP ####[facility] [address] [place] [address]Dr. David Cannon AST [Catalytic activity/Vol] 15 U/L Normal 15-37 [facility] Comment on above: Performed By: #### C RP, CMP, BNP ####[facility] [address] [place] [address]Dr. David Cannon Bilirubin [Mass/Vol] 0.2 mg/dL Normal 0.2-1.0 [facility] Comment on above: Performed By: #### C RP, CMP, BNP ####[facility] [address] [place] [address]Dr. David Cannon Calcium [Mass/Vol] 9.2 mg/dL Normal 8.5-10.1 [facility] Comment on above: Performed By: #### C RP, CMP, BNP ####[facility] [address] [place] [address]Dr. David Cannon Chloride [Moles/Vol] 104 mmol/L Normal 98-107 [facility] Comment on above: Performed By: #### C RP, CMP, BNP ####[facility] [address] [place] [address]Dr. David Cannon CO2 [Moles/Vol] 31.2 mmol/L Normal 21.0-32.0 [facility] Comment on above: Performed By: #### C RP, CMP, BNP ####[facility] [address] [place] [address]Dr. David Cannon Creatinine [Mass/Vol] 0.52 mg/dL Critically low 0.55-1.02 [facility] Comment on above: Performed By: #### C RP, CMP, BNP ####[facility] [address] [place] [address]Dr. David Davis EGFR-AF SRI LANKAN >60 Normal >=60 [facility] Comment on above: Performed By: #### C RP, CMP, BNP ####[facility] [address] [place] [address]Dr. David Cannon EGFR-NON AF SRI LANKAN >60 Normal >=60 [facility] Comment on above: Performed By: #### C RP, CMP, BNP ####[facility] [address] [place] [address]Dr. David Cannon Globulin (S) [Mass/Vol] 3.9 g/dL Normal [facility] Comment on above: Performed By: #### C RP, CMP, BNP ####[facility] [address] [place] [address]Dr. David Cannon Glucose [Mass/Vol] 79 mg/dL Normal 74-106 [facility] Comment on above: Performed By: #### C RP, CMP, BNP ####[facility] [address] [place], [place] [address]Dr. David Cannon Potassium [Moles/Vol] 3.5 mmol/L Normal 3.5-5.1 [facility] Comment on above: Performed By: #### C RP, CMP, BNP ####[facility] [address] [place], [place] [address]Dr. David Cannon Protein [Mass/Vol] 8.2 g/dL Normal 6.4-8.2 [facility] Comment on above: Performed By: #### C RP, CMP, BNP ####[facility] [address] [place], [place] [address]Dr. David Cannon Sodium [Moles/Vol] 144 mmol/L Normal 136-145 [facility] Comment on above: Performed By: #### C RP, CMP, BNP ####[facility] [address] [place], [place] [address]Dr. David Cannon Urea nitrogen [Mass/Vol] 16.0 mg/dL Normal 7.0-18.0 [facility] Comment on above: Performed By: #### C RP, CMP, BNP ####[facility] [address] [place] [address]Dr. David Cannon Urea nitrogen/Creatinine [Mass ratio] 30.8 mg/mg Normal [facility] Comment on above: Performed By: #### C RP, CMP, BNP ####[facility] [address] [place] [address]Dr. David Cannon PROTIMEon 06-07-2022 INR Coag (PPP) [Relative time] {INR} Normal [facility] Comment on above: Performed By: #### A NARF #### [facility] [address] [place] [address] Dr. David Cannon INR GUIDELINES SEE BELOW Normal [facility] Comment on above: Result Comment: SURY RED INR: 2.0 - 3.0 CONDITIONS NOT LISTED BELOW 2.5 - 3.5 FOR PROSTHETIC HEART VALVE REPLACEMENT 2.5 - 3.5 RECURRENT THROMBOSIS Performed By: #### A NARF #### [facility] [address] [address] [address] David Cannon PT Coag (PPP) [Time] 9.6 s Normal 9.0-11.6 [facility] Comment on above: Performed By: #### A NARF #### [facility] [address] [address] [address] David Cannon PTTon 06-07-2022 aPTT Coag (Bld) [Time] 25.6 s Normal 22.3-36.2 [facility] Comment on above: Performed By: #### A NARF #### [facility] [address] [place] [address] Dr. David Cannon SED RATE [place]EN 2022 SED RATE 21 mm/hr Normal <=30 [facility] Comment on above: Performed By: #### S EDR ####[facility] [address] [place] [address]Dr. David Cannon URINE MICROSCOPIC ONLYon BACTERIA SMALL Abnormal NONE SEEN [facility] Comment on above: Performed By: #### B MP, TSH #### [facility] [address] [place] [address] Dr. David Cannon Bacteria identified Cx Nom (U) INDICATED Normal [facility] Comment on above: Performed By: #### B MP, TSH #### [facility] [address] [place] [address] Dr. David Cannon CAST NONE SEEN Normal NONE SEEN [facility] Comment on above: Performed By: #### B MP, TSH #### [facility] [address] [place] [address] Dr. David Cannon Crystals LM Nom (Urine sed) NONE SEEN Normal NONE SEEN [facility] Comment on above: Performed By: #### B MP, TSH #### [facility] [address] [place] [address] Dr. David Cannon Epithelial cells LM Ql (Urine sed) FEW Abnormal NONE SEEN /RARE [facility] Comment on above: Performed By: #### B MP, TSH #### [facility] [address] [place] [address] Dr. David Cannon MUCOUS NONE SEEN Normal NONE SEEN [facility] Comment on above: Performed By: #### B MP, TSH #### [facility] [address] [place] [address] Dr. David Cannon RBC 0-2 Normal 0-2 [facility] Comment on above: Performed By: #### B MP, TSH #### [facility] [address] [place] [address] Dr. David Cannon WBC 5-10 Abnormal NONE SEEN [facility] Comment on above: Performed By: #### B MP, TSH #### [facility] [address] [place] [address] Dr. David Cannon NISHI EIA W/REFLEX 5 BIOMARKER Son 05-30-2022 NISHI Direct Negative Normal Negative [facility] Comment on above: Performed By: #### A NARF #### [facility] [address] [place] [address] Dr. David Cannon C-Reactive Proteinon 023 C-Reactive Protein 0.3 mg/dL <=1.0 mg/dL [employer] Other CBC AUTO DIFFon 05-29-2022 BASO # 0.0 103/ul Normal 0.0-0.1 [facility] Comment on above: Performed By: #### A NARF #### [facility] [address] [place] [address] Dr. David Cannon Basophils/100 WBC (Bld) 0.3 % Normal 0.2-2.0 [facility] Comment on above: Performed By: #### A NARF #### [facility] [address] [place] [address] Dr. David Cannon EO # 0.1 103/ul Normal 0.0-0.7 [facility] Comment on above: Performed By: #### A NARF #### [facility] [address] [place] [address] Dr. David Cannon Eosinophils/100 WBC (Bld) 1.7 % Normal 0.9-7.0 [facility] Comment on above: Performed By: #### A NARF #### [facility] [address] [place] [address] Dr. David Cannon Erythrocyte distribution width (RBC) [Ratio] 12.0 % Normal 11.0-15.0 [facility] Comment on above: Performed By: #### A NARF #### [facility] [address] [place] [address] Dr. David Cannon Hematocrit (Bld) [Volume fraction] 43.9 % Normal 36.0-48.0 [facility] Comment on above: Performed By: #### A NARF #### [facility] [address] [place] [address] Dr. David Cannon Hemoglobin (Bld) [Mass/Vol] 14.0 g/dL Normal 12.0-16.0 [facility] Comment on above: Performed By: #### A NARF #### [facility] [address] [place] [address] Dr. David Cannon IG # 0.02 10e3/ul Normal 0.00-0.03 [facility] Comment on above: Performed By: #### A NARF #### [facility] [address] [place] [address] Dr. David Cannon IG % 0.3 % Normal 0.0-0.5 [facility] Comment on above: Performed By: #### A NARF #### [facility] [address] [place] [address] Dr. David Cannon LYMPH # 2.0 103/ul Normal 1.2-3.8 [facility] Comment on above: Performed By: #### A NARF #### [facility] [address] [place] [address] Dr. David Cannon Lymphocytes/100 WBC (Bld) 31.7 % Normal 20.5-60.0 [facility] Comment on above: Performed By: #### A NARF #### [facility] [address] [place] [address] Dr. David Cannon MANUAL DIFF REQ NO Normal [facility] Comment on above: Performed By: #### A NARF #### [facility] [address] [place] [address] Dr. David Cannon MCH (RBC) [Entitic mass] 30.8 pg Normal 26.7-34.0 [facility] Comment on above: Performed By: #### A NARF #### [facility] [address] [place] [address] Dr. David Cannon MCHC (RBC) [Mass/Vol] 31.9 g/dL Normal 29.9-35.2 [facility] Comment on above: Performed By: #### A NARF #### [facility] [address] [place] [address] Dr. David Cannon MCV (RBC) [Entitic vol] 96.5 fL Normal 81.0-99.0 [facility] Comment on above: Performed By: #### A NARF #### [facility] [address] [place] [address] Dr. David Cannon MONO # 0.4 103/ul Normal 0.3-0.8 [facility] Comment on above: Performed By: #### A NARF #### [facility] [address] [place] [address] Dr. David Cannon Monocytes/100 WBC (Bld) 6.2 % Normal 1.7-12.0 [facility] Comment on above: Performed By: #### A NARF #### [facility] [address] [place] [address] Dr. David Cannon NEUT # 3.9 103/ul Normal 1.4-6.5 [facility] Comment on above: Performed By: #### A NARF #### [facility] [address] [place] [address] Dr. David Cannon Neutrophils/100 WBC (Bld) 59.8 % Normal 43.0-75.0 [facility] Comment on above: Performed By: #### A NARF #### [facility] [address] [place] [address] Dr. David Cannon Platelet mean volume (Bld) [Entitic vol] 8.7 fL Critically low 9.5-13.5 [facility] Comment on above: Performed By: #### A NARF #### [facility] [address] [place] [address] Dr. David Cannon PLT 263 103/ul Normal 150-450 [facility] Comment on above: Performed By: #### A NARF #### [facility] [address] [place] [address] Dr. David Cannon RBC 4.55 106/ul Normal 4.20-5.40 [facility] Comment on above: Performed By: #### A NARF #### [facility] [address] [place] [address] Dr. David Cannon WBC 6.4 103/ul Normal 4.0-11.0 [facility] Comment on above: Performed By: #### A NARF #### [facility] [address] [place] [address] Dr. David Cannon CRPon 05-29-2022 CRP 0.3 mg/dL Normal <=1.0 [facility] Comment on above: Performed By: #### C RP, CMP ####[facility] [address] [place], [place] [address]ObDr. David Cannon Complete Blood Count and Dif jin 05-29-2022 Anisocytosis Ql (Bld) [facility] Other Basophilic stippling LM Ql (Bld) [facility] [employer] Other RBC morphology finding Nom (Bld) [facility] [employer] [facility] Other Complete Blood Count and Diff [facility] [facility] Other Comprehensive Metabolic Pane sincere 05-29-2022 Albumin/Globulin [Mass ratio] 0.9 {ratio} Normal [facility] [facility] Other Comment on above: Performed By: #### A NARF #### [facility] [address] [place] [address] Dr. David Cannon ALP [Catalytic activity/Vol] 79 U/L Normal 46-116 [facility] [facility] Other Comment on above: Performed By: #### A NARF #### [facility] [address] [place] [address] Dr. David Cannon ALT [Catalytic activity/Vol] 20 U/L Normal 14-59 [facility] [facility] Other Comment on above: Performed By: #### A NARF #### [facility] [address] [address] [address] David Cannon Anion gap [Moles/Vol] 12.7 mmol/L [facility] Other Comment on above: Performed By: #### A NARF #### [facility] [address] [place] [address] Dr. David Cannon AST [Catalytic activity/Vol] 20 U/L Normal 15-37 [facility] [facility] Other Comment on above: Performed By: #### A NARF #### [facility] [address] [place] [address] Dr. David Cannon Chloride [Moles/Vol] 102 mmol/L Normal 98-107 [facility] [employer] Other Comment on above: Performed By: #### A NARF #### [facility] [address] [address] [address] David Cannon Urea nitrogen/Creatinine [Mass ratio] 29.0 mg/mg Normal [employer] Other Comment on above: Performed By: #### A NARF #### [facility] [address] [address] [address] David Cannon Albumin [Mass/Vol] 3.470953 g/dL 3.4-5.0 g/dL N [facility] [employer] Other Calcium [Mass/Vol] 9.1761761 mg/dL 8.5-10 .1 mg/dL [employer] Other CO2 [Moles/Vol] 31.34815126 mmol/L 21.0-3 2.0 mmol/L [employer] Other Creatinine [Mass/Vol] 0.68859652 mg/dL 0. 55-1.02 mg/dL [employer] Other Potassium [Moles/Vol] 4.92728926 mmol/L 3 .5-5.1 mmol/L [employer] Other Protein [Mass/Vol] 8.387782 g/dL 6.4-8.2 g/dL N [employer] Other Urea nitrogen [Mass/Vol] 18.6627271 mg/dL 7.0-18.0 mg/dL [employer] Other Comprehensive Metabolic Panel see note [employer] Other Comprehensive Metabolic Panel 142 mmol/L 136-145 mmol/L [employer] Other Comprehensive Metabolic Panel 102 mg/dL 74-106 mg/dL [employer] Other Comprehensive Metabolic Panel >60 mL/min/1.73m2 >=60 mL/min/1.73m 2 [employer] Other Comprehensive Metabolic Panel 0.2 mg/dL 0.2-1.0 mg/dL [employer] Other Comprehensive Metabolic Panel 4.3 g/dL [employer] [facility] [employer] Other PROF 14(COMP METB)on 023 Albumin [Mass/Vol] 3.8 g/dL Normal 3.4-5.0 [facility] Comment on above: Performed By: #### A NARF #### [facility] [address] [place] [address] Dr. David Cannon Bilirubin [Mass/Vol] 0.2 mg/dL Normal 0.2-1.0 [facility] Comment on above: Performed By: #### A NARF #### [facility] [address] [place] [address] Dr. David Cannon Calcium [Mass/Vol] 9.9 mg/dL Normal 8.5-10.1 [facility] Comment on above: Performed By: #### A NARF #### [facility] [address] [address] [address] David Cannon CO2 [Moles/Vol] 31.4 mmol/L Normal 21.0-32.0 [facility] Comment on above: Performed By: #### A NARF #### [facility] [address] [place] [address] Dr. David Cannon Creatinine [Mass/Vol] 0.62 mg/dL Normal 0.55-1.02 [facility] Comment on above: Performed By: #### A NARF #### [facility] [address] [place] [address] Dr. David Cannon EGFR-AF SRI LANKAN >60 Normal >=60 [facility] Comment on above: Performed By: #### A NARF #### [facility] [address] [place] [address] Dr. David Cannon EGFR-NON AF SRI LANKAN >60 Normal >=60 [facility] Comment on above: Performed By: #### A NARF #### [facility] [address] [place] [address] Dr. David Cannon Globulin (S) [Mass/Vol] 4.3 g/dL Normal [facility] Comment on above: Performed By: #### A NARF #### [facility] [address] [place] [address] Dr. David Cannon Glucose [Mass/Vol] 102 mg/dL Normal 74-106 [facility] Comment on above: Performed By: #### A NARF #### [facility] [address] [place] [address] Dr. David Cannon Potassium [Moles/Vol] 4.1 mmol/L Normal 3.5-5.1 [facility] Comment on above: Performed By: #### A NARF #### [facility] [address] [place] [address] Dr. David Cannon Protein [Mass/Vol] 8.1 g/dL Normal 6.4-8.2 [facility] Comment on above: Performed By: #### A NARF #### [facility] [address] [place] [address] Dr. David Cannon Sodium [Moles/Vol] 142 mmol/L Normal 136-145 [facility] Comment on above: Performed By: #### A NARF #### [facility] [address] [place] [address] Dr. David Cannon Urea nitrogen [Mass/Vol] 18.0 mg/dL Normal 7.0-18.0 [facility] Comment on above: Performed By: #### A NARF #### [facility] [address] [place] [address] Dr. David Cannon UA RANDOM W/MICROSCOPICon AMORPHOUS CRYSTALS RARE Normal [facility] Comment on above: Performed By: #### B MP, TSH #### [facility] [address] [place] [address] Dr. David Cannon BACTERIA NONE SEEN Normal NONE SEEN [facility] Comment on above: Performed By: #### B MP, TSH #### [facility] [address] [place] [address] Dr. David Cannon Bilirubin Ql (U) Negative Normal NEGATIVE O&P [facility] [employer] [facility] Other Comment on above: Performed By: #### B MP, TSH #### [facility] [address] [place] [address] Dr. David Cannon CAST NONE SEEN Normal NONE SEEN [facility] Comment on above: Performed By: #### B MP, TSH #### [facility] [address] [place] [address] Dr. David Cannon Clarity (U) CLEAR Normal CLEAR [employer] Other Comment on above: Performed By: #### B MP, TSH #### [facility] [address] [place] [address] Dr. David Cannon Color (U) LT. YELLOW Normal YELLOW [employer] Other Comment on above: Performed By: #### B MP, TSH #### [facility] [address] [place] [address] Dr. David Cannon Crystals LM Nom (Urine sed) SEEN Abnormal NONE SEEN [facility] Comment on above: Performed By: #### B MP, TSH #### [facility] [address] [place] [address] Dr. David Cannon Epithelial cells LM Ql (Urine sed) RARE Normal NONE SEEN /RARE [facility] Comment on above: Performed By: #### B MP, TSH #### [facility] [address] [place] [address] Dr. David Cannon Glucose Ql (U) Negative Normal NEGATIVE [employer] Other Comment on above: Performed By: #### B MP, TSH #### [facility] [address] [place] [address] Dr. David Cannon Hemoglobin Ql (U) Negative Normal NEGATIVE [employer] [facility] Other Comment on above: Performed By: #### B MP, TSH #### [facility] [address] [place] [address] Dr. David Cannon Ketones Ql (U) Negative Normal NEGATIVE [employer] Other Comment on above: Performed By: #### B MP, TSH #### [facility] [address] [place] [address] Dr. David Cannon LEUKOCYTES Negative Normal NEGATIVE [facility] Comment on above: Performed By: #### B MP, TSH #### [facility] [address] [place] [address] Dr. David Cannon MUCOUS NONE SEEN Normal NONE SEEN [facility] Comment on above: Performed By: #### B MP, TSH #### [facility] [address] [place] [address] Dr. David Cannon Nitrite Ql (U) Negative Normal NEGATIVE [place] [employer] Other Comment on above: Performed By: #### B MP, TSH #### [facility] [address] [place] [address] Dr. David Cannon pH (U) 7.0 [pH] Normal 5-9 [employer] [facility] [employer] Other Comment on above: Performed By: #### B MP, TSH #### [facility] [address] [place] [address] Dr. David Cannon RBC 0-2 Normal 0-2 [facility] Comment on above: Performed By: #### B MP, TSH #### [facility] [address] [place] [address] Dr. David Cannon SPEC GRAVITY 1.020 Normal 1.005-<=1.02 5 [facility] Comment on above: Performed By: #### B MP, TSH #### [facility] [address] [place] [address] Dr. David Cannon UA PROTEIN Negative Normal NEGATIVE/ TRACE [facility] Comment on above: Performed By: #### B MP, TSH #### [facility] [address] [place] [address] Dr. David Cannon Urobilinogen Qn (U) 0.2 {Skip'U}/dL Normal 0.2 - 1. 0 [facility] Comment on above: Performed By: #### B MP, TSH #### [facility] [address] [address] [address] David Cannon WBC NONE SEEN Normal NONE SEEN [facility] Comment on above: Performed By: #### B MP, TSH #### [facility] [id number] David Cannon Crystals LM Nom (Urine sed) SEEN #/HPF Abnormal NONE SEEN #/HPF [employer] Other Epithelial cells LM Ql (Urine sed) RARE #/LPF NONE SEEN /RARE #/LPF [employer] Other UA RANDOM W/MICROSCOPIC 1.020 1.005-<=1.02 5 [employer] Other UA RANDOM W/MICROSCOPIC Negative NEGATIVE [employer] Other UA RANDOM W/MICROSCOPIC 0.2 EU/dl 0.2 - 1.0 EU/dl [employer] Other UA RANDOM W/MICROSCOPIC NONE SEEN #/HPF NONE SEEN #/HPF [employer] Other UA RANDOM W/MICROSCOPIC 0-2 #/HPF 0-2 #/HPF [employer] Other UA RANDOM W/MICROSCOPIC NONE SEEN #/LPF NONE SEEN #/LPF [employer] Other UA RANDOM W/MICROSCOPIC NONE SEEN NONE SEEN [employer] Other UA RANDOM W/MICROSCOPIC RARE [employer] Other CULTURE URINEon 04-13-2022 CULTURE URINE Isolate [...] F Trimethoprim/Sulfameth oxazole <=20 S F Normal [facility] Comment on above: Performed By: #### U RCX ####[facility] [id number] [address]Dr. David Cannon VAGINITIS/VAGINOSIS DNA PROB Hugo 04-12-2022 Susan species Negative Normal Negative [facility] Comment on above: Performed By: #### B MP, TSH #### [facility] [address] [place] [address] Dr. David Cannon Gardnerella vaginalis Negative Normal Negative [facility] Comment on above: Performed By: #### B NILSA, TSH #### [facility] [address] [address] [address] David Cannon Trichomonas vaginalis Negative Normal Negative [facility] Comment on above: Performed By: #### B NILSA, TSH #### [facility] [address] [place] [address] Dr. David Cannon BNPon 02-24-2022 Natriuretic peptide B (Bld) [Mass/Vol] 173.0 pg/mL Normal <=900.0 [facility] Comment on above: Performed By: #### B NILSA, TSH #### [facility] [address] [place] [address] Dr. Dvaid Cannon CARDIAC WAI 3-6on 2 CK [Catalytic activity/Vol] 47 U/L Normal 26-192 [facility] Comment on above: Performed By: #### B MP, TSH #### [facility] [address] [place] [address] Dr. David Cannon CK.MB [Mass/Vol] ng/mL Normal <=3.60 [facility] Comment on above: Performed By: #### B MP, TSH #### [facility] [address] [place] [address] Dr. David Cannon HSTROP 7.0 pg/mL Normal 4.0-51.3 [facility] Comment on above: Result Comment: CUT- OFF POINTS HAVE BEEN ESTABLISHED BASED ON THE FOURTH UNIVERSAL DEFINITIONS OF MYOCARDIAL INFARCTION. THE UPPER REFERENCE LIMIT (URL) OF TROPONIN, DEFINED THE 99TH PERCENTILE OF cTnI DISTRIBUTION IN A REFERENCE POPULATION, HAS BEEN CONFIRMED THE DECISION THRESHOLD FOR CT DIAGNOSIS. Performed By: #### B NILSA, TSH #### [facility] [address] [place] [address] Dr. David Cannon CK [Catalytic activity/Vol] 44 U/L Normal 26-192 [facility] Comment on above: Performed By: #### B NILSA, TSH #### [facility] [address] [place] [address] Dr. David Cannon CK.MB [Mass/Vol] ng/mL Normal <=3.60 [facility] Comment on above: Performed By: #### B NILSA, TSH #### [facility] [address] [place] [address] Dr. David Cannon HSTROP 5.3 pg/mL Normal 4.0-51.3 [facility] Comment on above: Result Comment: CUT- OFF POINTS HAVE BEEN ESTABLISHED BASED ON THE FOURTH UNIVERSAL DEFINITIONS OF MYOCARDIAL INFARCTION. THE UPPER REFERENCE LIMIT (URL) OF TROPONIN, DEFINED THE 99TH PERCENTILE OF cTnI DISTRIBUTION IN A REFERENCE POPULATION, HAS BEEN CONFIRMED THE DECISION THRESHOLD FOR CT DIAGNOSIS. Performed By: #### B NILSA, TSH #### [facility] [address] [place] [address] Dr. David Cannon CBC AUTO DIFFon 02-24-2022 BASO # 0.0 103/ul Normal 0.0-0.1 [facility] Comment on above: Performed By: #### C BC #### [facility] [address] [place] [address] Dr. David Cannon Basophils/100 WBC (Bld) 0.3 % Normal 0.2-2.0 [facility] Comment on above: Performed By: #### C BC #### [facility] [address] [place] [address] Dr. David Cannon EO # 0.2 103/ul Normal 0.0-0.7 [facility] Comment on above: Performed By: #### C BC #### [facility] [address] [place] [address] Dr. David Cannon Eosinophils/100 WBC (Bld) 2.6 % Normal 0.9-7.0 [facility] Comment on above: Performed By: #### C BC #### [facility] [address] [place] [address] Dr. David Cannon Erythrocyte distribution width (RBC) [Ratio] 12.1 % Normal 11.0-15.0 [facility] Comment on above: Performed By: #### C BC #### [facility] [address] [place] [address] Dr. Daivd Cannon Hematocrit (Bld) [Volume fraction] 39.9 % Normal 36.0-48.0 [facility] Comment on above: Performed By: #### C BC #### [facility] [address] [place] [address] Dr. David Cannon Hemoglobin (Bld) [Mass/Vol] 13.2 g/dL Normal 12.0-16.0 [facility] Comment on above: Performed By: #### C BC #### [facility] [address] [place] [address] Dr. David Cannon IG # 0.01 10e3/ul Normal 0.00-0.03 [facility] Comment on above: Performed By: #### C BC #### [facility] [address] [place] [address] Dr. David Cannon IG % 0.2 % Normal 0.0-0.5 [facility] Comment on above: Performed By: #### C BC #### [facility] [address] [place] [address] Dr. David Cannon LYMPH # 2.8 103/ul Normal 1.2-3.8 [facility] Comment on above: Performed By: #### C BC #### [facility] [address] [place] [address] Dr. David Cannon Lymphocytes/100 WBC (Bld) 48.1 % Normal 20.5-60.0 [facility] Comment on above: Performed By: #### C BC #### [facility] [address] [place] [address] Dr. David Cannon MANUAL DIFF REQ NO Normal [facility] Comment on above: Performed By: #### C BC #### [facility] [address] [place] [address] Dr. David Cannon MCH (RBC) [Entitic mass] 31.6 pg Normal 26.7-34.0 [facility] Comment on above: Performed By: #### C BC #### [facility] [address] [place] [address] Dr. David Cannon MCHC (RBC) [Mass/Vol] 33.1 g/dL Normal 29.9-35.2 [facility] Comment on above: Performed By: #### C BC #### [facility] [address] [place] [address] Dr. David Cannon MCV (RBC) [Entitic vol] 95.5 fL Normal 81.0-99.0 [facility] Comment on above: Performed By: #### C BC #### [facility] [address] [place] [address] Dr. David Cannon MONO # 0.4 103/ul Normal 0.3-0.8 [facility] Comment on above: Performed By: #### C BC #### [facility] [address] [place] [address] Dr. David Cannon Monocytes/100 WBC (Bld) 6.1 % Normal 1.7-12.0 [facility] Comment on above: Performed By: #### C BC #### [facility] [address] [place] [address] Dr. David Cannon NEUT # 2.5 103/ul Normal 1.4-6.5 [facility] Comment on above: Performed By: #### C BC #### [facility] [address] [place] [address] Dr. David Cannon Neutrophils/100 WBC (Bld) 42.7 % Critically low 43.0-75.0 [facility] Comment on above: Performed By: #### C BC #### [facility] [address] [place] [address] Dr. David Cannon Platelet mean volume (Bld) [Entitic vol] 8.7 fL Critically low 9.5-13.5 [facility] Comment on above: Performed By: #### C BC #### [facility] [address] [place] [address] Dr. David Cannon PLT 166 103/ul Normal 150-450 [facility] Comment on above: Performed By: #### C BC #### [facility] [address] [address] [address] David Cannon RBC 4.18 106/ul Critically low 4.20-5.40 [facility] Comment on above: Performed By: #### C BC #### [facility] [address] [place] [address] Dr. David Cannon WBC 5.7 103/ul Normal 4.0-11.0 [facility] Comment on above: Performed By: #### C BC #### [facility] [address] [place] [address] Dr. David Cannon PROF 14(COMP METB)on 02-24- 022 Albumin [Mass/Vol] 3.4 g/dL Normal 3.4-5.0 [facility] Comment on above: Performed By: #### B MP, TSH #### [facility] [address] [place] [address] Dr. David Cannon Albumin/Globulin [Mass ratio] 1.2 {ratio} Normal [facility] Comment on above: Performed By: #### B MP, TSH #### [facility] [address] [place] [address] Dr. David Cannon ALP [Catalytic activity/Vol] 60 U/L Normal 46-116 [facility] Comment on above: Performed By: #### B MP, TSH #### [facility] [address] [place] [address] Dr. David Cannon ALT [Catalytic activity/Vol] 16 U/L Normal 14-59 [facility] Comment on above: Performed By: #### B MP, TSH #### [facility] [address] [place] [address] Dr. David Cannon Anion gap [Moles/Vol] 10.5 mmol/L Normal [facility] Comment on above: Performed By: #### B MP, TSH #### [facility] [address] [address] [address] David Cannon AST [Catalytic activity/Vol] 17 U/L Normal 15-37 [facility] Comment on above: Performed By: #### B MP, TSH #### [facility] [address] [place] [address] Dr. David Cannon Bilirubin [Mass/Vol] 0.4 mg/dL Normal 0.2-1.0 [facility] Comment on above: Performed By: #### B MP, TSH #### [facility] [address] [address] [address] David Cannon Calcium [Mass/Vol] 8.8 mg/dL Normal 8.5-10.1 [facility] Comment on above: Performed By: #### B MP, TSH #### [facility] [address] [place] [address] Dr. David Cannon Chloride [Moles/Vol] 106 mmol/L Normal 98-107 [facility] Comment on above: Performed By: #### B MP, TSH #### [facility] [address] [place] [address] Dr. David Cannon CO2 [Moles/Vol] 28.4 mmol/L Normal 21.0-32.0 [facility] Comment on above: Performed By: #### B MP, TSH #### [facility] [address] [place] [address] Dr. David Cannon Creatinine [Mass/Vol] 0.61 mg/dL Normal 0.55-1.02 [facility] Comment on above: Performed By: #### B MP, TSH #### [facility] [address] [place] [address] Dr. David Cannon EGFR-AF SRI LANKAN >60 Normal >=60 [facility] Comment on above: Performed By: #### B MP, TSH #### [facility] [address] [place] [address] Dr. David Cannon EGFR-NON AF SRI LANKAN >60 Normal >=60 [facility] Comment on above: Performed By: #### B MP, TSH #### [facility] [address] [address] [address] David Cannon Globulin (S) [Mass/Vol] 2.9 g/dL Normal [facility] Comment on above: Performed By: #### B MP, TSH #### [facility] [address] [address] [address] David Cannon Glucose [Mass/Vol] 79 mg/dL Normal 74-106 [facility] Comment on above: Performed By: #### B MP, TSH #### [facility] [address] [address] [address] David Cannon Potassium [Moles/Vol] 3.9 mmol/L Normal 3.5-5.1 [facility] Comment on above: Performed By: #### B MP, TSH #### [facility] [address] [place] [address] Dr. David Cannon Protein [Mass/Vol] 6.3 g/dL Critically low 6.4-8.2 [facility] Comment on above: Performed By: #### B MP, TSH #### [facility] [address] [place] [address] Dr. David Cannon Sodium [Moles/Vol] 141 mmol/L Normal 136-145 [facility] Comment on above: Performed By: #### B MP, TSH #### [facility] [address] [address] [address] David Cannon Urea nitrogen [Mass/Vol] 8.0 mg/dL Normal 7.0-18.0 [facility] Comment on above: Performed By: #### B MP, TSH #### [facility] [address] [address] [address] David Cannon Urea nitrogen/Creatinine [Mass ratio] 13.1 mg/mg Normal [facility] Comment on above: Performed By: #### B MP, TSH #### [facility] [address] [place] [address] Dr. David Cannon BNPon 02-23-2022 Natriuretic peptide B (Bld) [Mass/Vol] 124.0 pg/mL Normal <=900.0 [facility] Comment on above: Performed By: #### A NARF #### [facility] [address] [place] [address] Dr. David Cannon CARDIAC WAI 3-6on 2 CK [Catalytic activity/Vol] 44 U/L Normal 26-192 [facility] Comment on above: Performed By: #### B MP, TSH #### [facility] [address] [address] [address] David Cannon CK.MB [Mass/Vol] ng/mL Normal <=3.60 [facility] Comment on above: Result Comment: Prev iously reported as: 0.30 On 02/23/2022 20:39 By JAW Performed By: #### B NILSA, TSH #### [facility] [address] [place] [address] Dr. David Cannon HSTROP 6.1 pg/mL Normal 4.0-51.3 [facility] Comment on above: Result Comment: CUT- OFF POINTS HAVE BEEN ESTABLISHED BASED ON THE FOURTH UNIVERSAL DEFINITIONS OF MYOCARDIAL INFARCTION. THE UPPER REFERENCE LIMIT (URL) OF TROPONIN, DEFINED THE 99TH PERCENTILE OF cTnI DISTRIBUTION IN A REFERENCE POPULATION, HAS BEEN CONFIRMED THE DECISION THRESHOLD FOR CT DIAGNOSIS. Performed By: #### B NILSA, TSH #### [facility] [address] [place] [address] Dr. David Cannon CK [Catalytic activity/Vol] 45 U/L Normal 26-192 [facility] Comment on above: Performed By: #### C MREP ####[facility] [id number] [address]Dr. David Cannon CK.MB [Mass/Vol] ng/mL Normal <=3.60 [facility] Comment on above: Performed By: #### C MREP ####[facility] [id number] [address]Dr. David Cannon HSTROP 5.7 pg/mL Normal 4.0-51.3 [facility] Comment on above: Result Comment: CUT- OFF POINTS HAVE BEEN ESTABLISHED BASED ON THE FOURTH UNIVERSAL DEFINITIONS OF MYOCARDIAL INFARCTION. THE UPPER REFERENCE LIMIT (URL) OF TROPONIN, DEFINED THE 99TH PERCENTILE OF cTnI DISTRIBUTION IN A REFERENCE POPULATION, HAS BEEN CONFIRMED THE DECISION THRESHOLD FOR CT DIAGNOSIS. Performed By: #### C MREP ####[facility] [id number] [place], [place] [address]R[address]. David Cannon CBC AUTO DIFFon 02-23-2022 BASO # 0.0 103/ul Normal 0.0-0.1 [facility] Comment on above: Performed By: #### B MP, TSH #### [facility] [address] [address] [address] David Cannon Basophils/100 WBC (Bld) 0.7 % Normal 0.2-2.0 [facility] Comment on above: Performed By: #### B MP, TSH #### [facility] [address] [address] [address] David Cannon EO # 0.1 103/ul Normal 0.0-0.7 [facility] Comment on above: Performed By: #### B MP, TSH #### [facility] [address] [address] [address] David Cannon Eosinophils/100 WBC (Bld) 1.1 % Normal 0.9-7.0 [facility] Comment on above: Performed By: #### B MP, TSH #### [facility] [address] [address] [address] David Cannon Erythrocyte distribution width (RBC) [Ratio] 12.2 % Normal 11.0-15.0 [facility] Comment on above: Performed By: #### B MP, TSH #### [facility] [address] [address] [address] David Cannon Hematocrit (Bld) [Volume fraction] 43.4 % Normal 36.0-48.0 [facility] Comment on above: Performed By: #### B MP, TSH #### [facility] [address] [address] [address] David Cannon Hemoglobin (Bld) [Mass/Vol] 14.4 g/dL Normal 12.0-16.0 [facility] Comment on above: Performed By: #### B MP, TSH #### [facility] [address] [address] [address] David Cannon IG # 0.01 10e3/ul Normal 0.00-0.03 [facility] Comment on above: Performed By: #### B MP, TSH #### [facility] [address] [address] [address] David Cannon IG % 0.2 % Normal 0.0-0.5 [facility] Comment on above: Performed By: #### B MP, TSH #### [facility] [address] [address] [address] David Cannon LYMPH # 1.5 103/ul Normal 1.2-3.8 [facility] Comment on above: Performed By: #### B MP, TSH #### [facility] [address] [place] [address] Dr. David Cannon Lymphocytes/100 WBC (Bld) 32.7 % Normal 20.5-60.0 [facility] Comment on above: Performed By: #### B MP, TSH #### [facility] [address] [address] [address] David Cannon MANUAL DIFF REQ NO Normal [facility] Comment on above: Performed By: #### B MP, TSH #### [facility] [address] [place] [address] Dr. David Cannon MCH (RBC) [Entitic mass] 31.4 pg Normal 26.7-34.0 [facility] Comment on above: Performed By: #### B MP, TSH #### [facility] [address] [address] [address] David Cannon MCHC (RBC) [Mass/Vol] 33.2 g/dL Normal 29.9-35.2 [facility] Comment on above: Performed By: #### B MP, TSH #### [facility] [address] [place] [address] Dr. David Cannon MCV (RBC) [Entitic vol] 94.8 fL Normal 81.0-99.0 [facility] Comment on above: Performed By: #### B MP, TSH #### [facility] [address] [address] [address] David Cannon MONO # 0.3 103/ul Normal 0.3-0.8 [facility] Comment on above: Performed By: #### B MP, TSH #### [facility] [address] [address] [address] David Cannon Monocytes/100 WBC (Bld) 5.9 % Normal 1.7-12.0 [facility] Comment on above: Performed By: #### B MP, TSH #### [facility] [address] [address] [address] David Cannon NEUT # 2.6 103/ul Normal 1.4-6.5 [facility] Comment on above: Performed By: #### B MP, TSH #### [facility] [address] [place] [address] Dr. David Cannon Neutrophils/100 WBC (Bld) 59.4 % Normal 43.0-75.0 [facility] Comment on above: Performed By: #### B MP, TSH #### [facility] [address] [place] [address] Dr. David Cannon Platelet mean volume (Bld) [Entitic vol] 8.6 fL Critically low 9.5-13.5 [facility] Comment on above: Performed By: #### B MP, TSH #### [facility] [address] [place] [address] Dr. David Cannon PLT 200 103/ul Normal 150-450 [facility] Comment on above: Performed By: #### B MP, TSH #### [facility] [address] [place] [address] Dr. David Cannon RBC 4.58 106/ul Normal 4.20-5.40 [facility] Comment on above: Performed By: #### B MP, TSH #### [facility] [address] [place] [address] Dr. David Cannon WBC 4.4 103/ul Normal 4.0-11.0 [facility] Comment on above: Performed By: #### B MP, TSH #### [facility] [address] [address] [address] David Cannon Covid-19 PCR ([facility])on 02-09 SARS-CoV-2 (COVID-19) RNA JOSH+probe Ql (Unsp spec) Not detected Normal NOT DETECTED [facility] Comment on above: Result Comment: [...] for this test is supported by the [employer] and Human Service's declaration that [...] longer be used). Performed By: #### C VDTB ####[facility] [id number] [address]Dr. David Cannon LIPASEon 02-23-2022 Lipase [Catalytic activity/Vol] 85.0 U/L Normal 73.0-393.0 [facility] Comment on above: Performed By: #### A NARF #### [facility] [address] [address] [address] David Cannon PROF 14(COMP METB)on 022 Albumin [Mass/Vol] 4.2 g/dL Normal 3.4-5.0 [facility] Comment on above: Performed By: #### A NARF #### [facility] [address] [place], [place] [address] Dr. David Cannon Albumin/Globulin [Mass ratio] 1.2 {ratio} Normal [facility] Comment on above: Performed By: #### A NARF #### [facility] [address] [address] [address] David Cannon ALP [Catalytic activity/Vol] 67 U/L Normal 46-116 [facility] Comment on above: Performed By: #### A NARF #### [facility] [address] [address] [address] David Cannon ALT [Catalytic activity/Vol] 19 U/L Normal 14-59 [facility] Comment on above: Performed By: #### A NARF #### [facility] [address] [place] [address] Dr. David Cannon Anion gap [Moles/Vol] 15.1 mmol/L Normal [facility] Comment on above: Performed By: #### A NARF #### [facility] [address] [place] [address] Dr. David Cannon AST [Catalytic activity/Vol] 18 U/L Normal 15-37 [facility] Comment on above: Performed By: #### A NARF #### [facility] [address] [place] [address] Dr. David Cannon Bilirubin [Mass/Vol] 0.3 mg/dL Normal 0.2-1.0 [facility] Comment on above: Performed By: #### A NARF #### [facility] [address] [place] [address] Dr. aDvid Cannon Calcium [Mass/Vol] 9.7 mg/dL Normal 8.5-10.1 [facility] Comment on above: Performed By: #### A NARF #### [facility] [address] [place] [address] Dr. David Cannon Chloride [Moles/Vol] 103 mmol/L Normal 98-107 [facility] Comment on above: Performed By: #### A NARF #### [facility] [address] [place] [address] Dr. David Cannon CO2 [Moles/Vol] 29.0 mmol/L Normal 21.0-32.0 [facility] Comment on above: Performed By: #### A NARF #### [facility] [address] [address] [address] David Cannon Creatinine [Mass/Vol] 0.67 mg/dL Normal 0.55-1.02 [facility] Comment on above: Performed By: #### A NARF #### [facility] [address] [address] [address] David Cannon EGFR-AF SRI LANKAN >60 Normal >=60 [facility] Comment on above: Performed By: #### A NARF #### [facility] [address] [place] [address] Dr. David Cannon EGFR-NON AF SRI LANKAN >60 Normal >=60 [facility] Comment on above: Performed By: #### A NARF #### [facility] [address] [place] [address] Dr. David Cannon Globulin (S) [Mass/Vol] 3.6 g/dL Normal [facility] Comment on above: Performed By: #### A NARF #### [facility] [address] [address] [address] David Cannon Glucose [Mass/Vol] 130 mg/dL Critically high 74-106 [facility] Comment on above: Performed By: #### A NARF #### [facility] [address] [place] [address] Dr. David Cannon Potassium [Moles/Vol] 4.1 mmol/L Normal 3.5-5.1 [facility] Comment on above: Performed By: #### A NARF #### [facility] [address] [place] [address] Dr. David Cannon Protein [Mass/Vol] 7.8 g/dL Normal 6.4-8.2 [facility] Comment on above: Performed By: #### A NARF #### [facility] [address] [place] [address] Dr. David Cannon Sodium [Moles/Vol] 143 mmol/L Normal 136-145 [facility] Comment on above: Performed By: #### A NARF #### [facility] [address] [place] [address] Dr. David Cannon Urea nitrogen [Mass/Vol] 11.0 mg/dL Normal 7.0-18.0 [facility] Comment on above: Performed By: #### A NARF #### [facility] [address] [place] [address] Dr. David Cannon Urea nitrogen/Creatinine [Mass ratio] 16.4 mg/mg Normal [facility] Comment on above: Performed By: #### A NARF #### [facility] [address] [place] [address] Dr. David Cannon PROTIMEon 02-23-2022 INR Coag (PPP) [Relative time] {INR} Normal [facility] Comment on above: Performed By: #### B MP, TSH #### [facility] [address] [place] [address] Dr. David Cannon INR GUIDELINES SEE BELOW Normal [facility] Comment on above: Result Comment: SURY RED INR: 2.0 - 3.0 CONDITIONS NOT LISTED BELOW 2.5 - 3.5 FOR PROSTHETIC HEART VALVE REPLACEMENT 2.5 - 3.5 RECURRENT THROMBOSIS Performed By: #### B MP, TSH #### [facility] [address] [place] [address] Dr. David Cannon PT Coag (PPP) [Time] 10.0 s Normal 9.0-11.6 [facility] Comment on above: Performed By: #### B MP, TSH #### [facility] [address] [place] [address] Dr. David Cannon PTTon 02-23-2022 aPTT Coag (Bld) [Time] 25.4 s Normal 22.3-36.2 [facility] Comment on above: Performed By: #### B MP, TSH #### [facility] [address] [place] [address] Dr. David Cannon TROPONIN, HIGH SENSITIVITYon 02-23-2022 HSTROP 6.0 pg/mL Normal 4.0-51.3 [facility] Comment on above: Result Comment: CUT- OFF POINTS HAVE BEEN ESTABLISHED BASED ON THE FOURTH UNIVERSAL DEFINITIONS OF MYOCARDIAL INFARCTION. THE UPPER REFERENCE LIMIT (URL) OF TROPONIN, DEFINED THE 99TH PERCENTILE OF cTnI DISTRIBUTION IN A REFERENCE POPULATION, HAS BEEN CONFIRMED THE DECISION THRESHOLD FOR CT DIAGNOSIS. Performed By: #### A BANNER #### [facility] [address] [place], [place] [address] Dr. David Cannon XR CHEST 1 Von [...] LONI SALAS Date: 2022-02-23 16:18 Normal [facility] CT ABD/PELV W CONon 01-08-20 [...] CHAIM MEZA Date: 2022-01-06 22:12 Normal [facility] AMYLASEon 01-06-2022 Amylase [Catalytic activity/Vol] 34 U/L Normal 25-115 [facility] Comment on above: Performed By: #### C MP, ELAINE ####[facility] [address] [place] [address]Dr. David Cannon CBC AUTO DIFFon 01-06-2022 BASO # 0.0 103/ul Normal 0.0-0.1 [facility] Comment on above: Performed By: #### A NARF #### [facility] [address] [place] [address] [address] David Cannon Basophils/100 WBC (Bld) 0.5 % Normal 0.2-2.0 [facility] Comment on above: Performed By: #### A NARF #### [facility] [address] [place] [address] [address] David Cannon EO # 0.1 103/ul Normal 0.0-0.7 [facility] Comment on above: Performed By: #### A NARF #### [facility] [address] [place] [address] [address] David Cannon Eosinophils/100 WBC (Bld) 1.4 % Normal 0.9-7.0 [facility] Comment on above: Performed By: #### A NARF #### [facility] [address] [place] [address] [address] David Cannon Erythrocyte distribution width (RBC) [Ratio] 12.0 % Normal 11.0-15.0 [facility] Comment on above: Performed By: #### A NARF #### [facility] [address] [place] [address] [address] David Cannon Hematocrit (Bld) [Volume fraction] 44.6 % Normal 36.0-48.0 [facility] Comment on above: Performed By: #### A NARF #### [facility] [address] [place] [address] Dr. David Cannon Hemoglobin (Bld) [Mass/Vol] 14.5 g/dL Normal 12.0-16.0 [facility] Comment on above: Performed By: #### A NARF #### [facility] [address] [place] [address] Dr. David Cannon IG # 0.01 10e3/ul Normal 0.00-0.03 [facility] Comment on above: Performed By: #### A NARF #### [facility] [address] [place] [address] Dr. David Cannon IG % 0.2 % Normal 0.0-0.5 [facility] Comment on above: Performed By: #### A NARF #### [facility] [address] [place] [address] Dr. David Cannon LYMPH # 2.5 103/ul Normal 1.2-3.8 [facility] Comment on above: Performed By: #### A NARF #### [facility] [address] [place] [address] Dr. David Cannon Lymphocytes/100 WBC (Bld) 42.6 % Normal 20.5-60.0 [facility] Comment on above: Performed By: #### A NARF #### [facility] [address] [place] [address] Dr. David Cannon MANUAL DIFF REQ NO Normal [facility] Comment on above: Performed By: #### A NARF #### [facility] [address] [place] [address] Dr. David Cannon MCH (RBC) [Entitic mass] 31.6 pg Normal 26.7-34.0 [facility] Comment on above: Performed By: #### A NARF #### [facility] [address] [place] [address] Dr. David Cannon MCHC (RBC) [Mass/Vol] 32.5 g/dL Normal 29.9-35.2 [facility] Comment on above: Performed By: #### A NARF #### [facility] [address] [place] [address] [address] David Cannon MCV (RBC) [Entitic vol] 97.2 fL Normal 81.0-99.0 [facility] Comment on above: Performed By: #### A NARF #### [facility] [address] [place] [address] Dr. David Cannon MONO # 0.4 103/ul Normal 0.3-0.8 [facility] Comment on above: Performed By: #### A NARF #### [facility] [address] [place] [address] Dr. David Cannon Monocytes/100 WBC (Bld) 5.9 % Normal 1.7-12.0 [facility] Comment on above: Performed By: #### A NARF #### [facility] [address] [place] [address] Dr. David Cannon NEUT # 2.9 103/ul Normal 1.4-6.5 [facility] Comment on above: Performed By: #### A NARF #### [facility] [address] [place] [address] Dr. David Cannon Neutrophils/100 WBC (Bld) 49.4 % Normal 43.0-75.0 [facility] Comment on above: Performed By: #### A NARF #### [facility] [address] [place] [address] Dr. David Cannon Platelet mean volume (Bld) [Entitic vol] 9.1 fL Critically low 9.5-13.5 [facility] Comment on above: Performed By: #### A NARF #### [facility] [address] [place] [address] Dr. David Cannon PLT 257 103/ul Normal 150-450 [facility] Comment on above: Performed By: #### A NARF #### [facility] [address] [place] [address] Dr. David Cannon RBC 4.59 106/ul Normal 4.20-5.40 [facility] Comment on above: Performed By: #### A NARF #### [facility] [address] [place] [address] [address] David Cannon WBC 5.9 103/ul Normal 4.0-11.0 [facility] Comment on above: Performed By: #### A NARF #### [facility] [address] [place] [address] [address] David Cannon D-DIMERon 01-06-2022 D-DIMER 0.67 mg/L FEU Critically high <=0.59 [facility] Comment on above: Performed By: #### D DIM ####[facility] [address] [place] [address]DrGerry Cannon D-DIMER COMMENTS SEE BELOW Normal [facility] Comment on above: Result Comment: Incr [...] generalized hospitalization. Performed By: #### D DIM ####[facility] [address] [place] [address]Dr. David Cannon PROF 14(COMP METB)on 022 Albumin [Mass/Vol] 4.0 g/dL Normal 3.4-5.0 [facility] Comment on above: Performed By: #### C NILSA, ELAINE ####[facility] [address] [place] [address]Dr. David Cannon Albumin/Globulin [Mass ratio] 1.2 {ratio} Normal [facility] Comment on above: Performed By: #### C NILSA, ELAINE ####[facility] [address] [place] [address]Dr. David Cannon ALP [Catalytic activity/Vol] 78 U/L Normal 46-116 [facility] Comment on above: Performed By: #### C NILSA, ELAINE ####[facility] [address] [place] [address]Dr. David Cannon ALT [Catalytic activity/Vol] 23 U/L Normal 14-59 [facility] Comment on above: Performed By: #### C MP, ELAINE ####[facility] [address] [place] [address]Dr. David Cannon Anion gap [Moles/Vol] 10.8 mmol/L Normal [facility] Comment on above: Performed By: #### C MP, ELAINE ####[facility] [address] [place], [place] [address]Dr. David Cannon AST [Catalytic activity/Vol] 28 U/L Normal 15-37 [facility] Comment on above: Performed By: #### C NILSA, ELAINE ####[facility] [address] [place], [place] [address]Dr. Janellbraeden Cannon Bilirubin [Mass/Vol] 0.3 mg/dL Normal 0.2-1.0 [facility] Comment on above: Performed By: #### C NILSA, ELAINE ####[facility] [address] [place], [place] [address]Dr. Janellbraeden Cannon Calcium [Mass/Vol] 9.1 mg/dL Normal 8.5-10.1 [facility] Comment on above: Performed By: #### C NILSA, ELAINE ####[facility] [address] [place], [place] [address]Dr. Janellbraeden Cannon Chloride [Moles/Vol] 102 mmol/L Normal 98-107 [facility] Comment on above: Performed By: #### C NILSA, ELAINE ####[facility] X[address] [place], [place] [address]Dr. David Cannon CO2 [Moles/Vol] 30.3 mmol/L Normal 21.0-32.0 [facility] Comment on above: Performed By: #### C NILSA, ELAINE ####[facility] [address] [place], [place] [address]Dr. David Cannon Creatinine [Mass/Vol] 0.46 mg/dL Critically low 0.55-1.02 [facility] Comment on above: Performed By: #### C MP, ELAINE ####[facility] [address] [place] [id number]. David Cannon EGFR-AF SRI LANKAN >60 Normal >=60 [facility] Comment on above: Performed By: #### C MP, ELAINE ####[facility] [address] [place] [address]Dr. David Cannon EGFR-NON AF SRI LANKAN >60 Normal >=60 [facility] Comment on above: Performed By: #### C MP, ELAINE ####[facility] [address] [place] [id number]. David Cannon Globulin (S) [Mass/Vol] 3.4 g/dL Normal [facility] Comment on above: Performed By: #### C MP, ELAINE ####[facility] [address] [place] [address]Dr. David Cannon Glucose [Mass/Vol] 111 mg/dL Critically high 74-106 [facility] Comment on above: Performed By: #### C NILSA, ELAINE ####[facility] [address] [place], [place] [address]Dr. David Cannon Potassium [Moles/Vol] 4.1 mmol/L Normal 3.5-5.1 [facility] Comment on above: Performed By: #### C NILSA, ELAINE ####[facility] Her[address] [place], [place] [address]Dr. David Cannon Protein [Mass/Vol] 7.4 g/dL Normal 6.4-8.2 [facility] Comment on above: Performed By: #### C MP, ELAINE ####[facility] [address] [place], [place] [address]Dr. David Cannon Sodium [Moles/Vol] 139 mmol/L Normal 136-145 [facility] Comment on above: Performed By: #### C MP, ELAINE ####[facility] [address] [place] [address]Dr. Janellbraeden Cannon Urea nitrogen [Mass/Vol] 14.0 mg/dL Normal 7.0-18.0 [facility] Comment on above: Performed By: #### C MP, ELAINE ####[facility] [address] [place], [place] [address]Dr. David Cannon Urea nitrogen/Creatinine [Mass ratio] 30.4 mg/mg Normal [facility] Comment on above: Performed By: #### C MP, ELAINE ####[facility] [address] [place], [place] [address]Dr. David Davis CBC AUTO DIFFon 11-28-2021 BASO # 0.0 103/ul Normal 0.0-0.1 [facility] Comment on above: Performed By: #### C BC ####[facility] [address] [place], [place] [address]Dr. Janellbraeden Cannon Basophils/100 WBC (Bld) 0.8 % Normal 0.2-2.0 [facility] Comment on above: Performed By: #### C BC ####[facility] [address]hw[address] [place], [place] [address]Dr. David Davis EO # 0.1 103/ul Normal 0.0-0.7 [facility] Comment on above: Performed By: #### C BC ####[facility] [address] [place], [place] [address]Dr. David Davis Eosinophils/100 WBC (Bld) 3.0 % Normal 0.9-7.0 [facility] Comment on above: Performed By: #### C BC ####[facility] As[address] [place], [place] [address]Dr. David Davis Erythrocyte distribution width (RBC) [Ratio] 11.9 % Normal 11.0-15.0 [facility] Comment on above: Performed By: #### C BC ####[facility] [address] [place], [place] [address]Dr. David Davis Hematocrit (Bld) [Volume fraction] 42.4 % Normal 36.0-48.0 [facility] Comment on above: Performed By: #### C BC ####[facility] [address] [place], [place] [address]Dr. David Cannon Hemoglobin (Bld) [Mass/Vol] 13.3 g/dL Normal 12.0-16.0 [facility] Comment on above: Performed By: #### C BC ####[facility] [address] [place] [address]DrGerry Cannon IG # 0.01 10e3/ul Normal 0.00-0.03 [facility] Comment on above: Performed By: #### C BC ####[facility] [address] [place] [address]DrGerry Cannon IG % 0.3 % Normal 0.0-0.5 [facility] Comment on above: Performed By: #### C BC ####[facility] [address] [place] [address]DrGerry Cannon LYMPH # 1.6 103/ul Normal 1.2-3.8 [facility] Comment on above: Performed By: #### C BC ####[facility] [address] [place] [address]DrGerry Cannon Lymphocytes/100 WBC (Bld) 39.6 % Normal 20.5-60.0 [facility] Comment on above: Performed By: #### C BC ####[facility] [address] [place] [address]DrGerry Cannon MANUAL DIFF REQ NO Normal [facility] Comment on above: Performed By: #### C BC ####[facility] [address] [place] [address]DrGerry Cannon MCH (RBC) [Entitic mass] 31.6 pg Normal 26.7-34.0 [facility] Comment on above: Performed By: #### C BC ####[facility] [address] [place] [id number] Cannon MCHC (RBC) [Mass/Vol] 31.4 g/dL Normal 29.9-35.2 [facility] Comment on above: Performed By: #### C BC ####[facility] [address] [place] [id number] Cannon MCV (RBC) [Entitic vol] 100.7 fL Critically high 81.0-99.0 [facility] Comment on above: Performed By: #### C BC ####[facility] [address] [place] [address]Dr. David Cannon MONO # 0.4 103/ul Normal 0.3-0.8 [facility] Comment on above: Performed By: #### C BC ####[facility] [address] [place] [address]Dr. David Cannon Monocytes/100 WBC (Bld) 11.2 % Normal 1.7-12.0 [facility] Comment on above: Performed By: #### C BC ####[facility] [address] [place] [address]Dr. David Cannon NEUT # 1.8 103/ul Normal 1.4-6.5 [facility] Comment on above: Performed By: #### C BC ####[facility] [address] [place] [address]Dr. David Cannon Neutrophils/100 WBC (Bld) 45.1 % Normal 43.0-75.0 [facility] Comment on above: Performed By: #### C BC ####[facility] [address] [place] [address]Dr. David Cannon Platelet mean volume (Bld) [Entitic vol] 9.1 fL Critically low 9.5-13.5 [facility] Comment on above: Performed By: #### C BC ####[facility] [address] [place] [address]Dr. David Cannon PLT 177 103/ul Normal 150-450 [facility] Comment on above: Performed By: #### C BC ####[facility] [address] [place] [id number]. David Cannon RBC 4.21 106/ul Normal 4.20-5.40 [facility] Comment on above: Performed By: #### C BC ####[facility] [address] [place] [address]Dr. David Davis WBC 3.9 103/ul Critically low 4.0-11.0 [facility] Comment on above: Performed By: #### C BC ####[facility] [address] [place] [id number]. David Cannon CRPon 11-28-2021 CRP [Mass/Vol] mg/L Normal <=1.0 [facility] Comment on above: Performed By: #### A NARF #### [facility] [address] [place] [address] [address] David Cannon XR LSPINE 2_3 VIEWSon 2021 XR LSPINE 2_3 VIEWS EXAMINATION: XR LSPI NE 2_3 VIEWS, XR SACRUM_COCCYX HISTORY: History of fall COMPARISON: 10/16/2021 CT exam FINDINGS: BONES: Rotatory levocurvature centered at L3. Kyphoplasty at L2. 40% anterior superior wedge compression fracture of T12. Left superior wedge compression fracture of L5. Minimal degenerative spondylosis. Qzox-tu-joftmyon facet osteoarthropathy. DISC SPACES: Multilevel disc space narrowing PARASPINOUS: Negative. No paraspinous abnormality is seen. OTHER: Negative. IMPRESSION: Grossly stable from CT exam performed 4 days ago Electronically authenticated by: JANNA LAWTON Date: 2021-10-20 12:06 Normal [facility] CULTURE URINEon 10-18-2021 CULTURE URINE [...] Trimethoprim/Sulfameth oxazole <=20 S F Normal [facility] Comment on above: Performed By: #### U RCX ####[facility] [address] [place] [id number]. David Cannon AMYLASEon 10-16-2021 Amylase [Catalytic activity/Vol] 35 U/L Normal 25-115 [facility] Comment on above: Performed By: #### B MP, TSH #### [facility] [address] [place] [address] [address] David Cannon CBC AUTO DIFFon 10-16-2021 BASO # 0.0 103/ul Normal 0.0-0.1 [facility] Comment on above: Performed By: #### C BC ####[facility] [address] [place] [address]DrGerry Cannon Basophils/100 WBC (Bld) 0.7 % Normal 0.2-2.0 [facility] Comment on above: Performed By: #### C BC ####[facility] [address] [place], [place] [address]Dr. David Cannon EO # 0.1 103/ul Normal 0.0-0.7 [facility] Comment on above: Performed By: #### C BC ####[facility] [address] [place], [place] [address]Dr. David Cannon Eosinophils/100 WBC (Bld) 1.0 % Normal 0.9-7.0 [facility] Comment on above: Performed By: #### C BC ####[facility] [address] [place], [place] [address]Dr. David Cannon Erythrocyte distribution width (RBC) [Ratio] 11.7 % Normal 11.0-15.0 [facility] Comment on above: Performed By: #### C BC ####[facility] [address] [place], [place] [address]DrGerry Cannon Hematocrit (Bld) [Volume fraction] 46.9 % Normal 36.0-48.0 [facility] Comment on above: Performed By: #### C BC ####[facility] [address] [place], [place] [address]DrGerry Cannon Hemoglobin (Bld) [Mass/Vol] 15.2 g/dL Normal 12.0-16.0 [facility] Comment on above: Performed By: #### C BC ####[facility] [address] [place], [place] [id number]. David Cannon IG # 0.01 10e3/ul Normal 0.00-0.03 [facility] Comment on above: Performed By: #### C BC ####[facility] [address] [place] [address]Dr. David Cannon IG % 0.2 % Normal 0.0-0.5 [facility] Comment on above: Performed By: #### C BC ####[facility] [address] [place] [address]DrGerry Cannon LYMPH # 1.7 103/ul Normal 1.2-3.8 [facility] Comment on above: Performed By: #### C BC ####[facility] [address] [place], [place] [address]DrGerry Cannon Lymphocytes/100 WBC (Bld) 29.0 % Normal 20.5-60.0 [facility] Comment on above: Performed By: #### C BC ####[facility] [address] [place], [place] [address]DrGerry Cannon MANUAL DIFF REQ NO Normal [facility] Comment on above: Performed By: #### C BC ####[facility] [address] [place], [place] [address]DrGerry Cannon MCH (RBC) [Entitic mass] 32.0 pg Normal 26.7-34.0 [facility] Comment on above: Performed By: #### C BC ####[facility] [address] [place], [place] [address]DrGerry Cannon MCHC (RBC) [Mass/Vol] 32.4 g/dL Normal 29.9-35.2 [facility] Comment on above: Performed By: #### C BC ####[facility] [address] [place], [place] [address]DrGerry Cannon MCV (RBC) [Entitic vol] 98.7 fL Normal 81.0-99.0 [facility] Comment on above: Performed By: #### C BC ####[facility] [address] [place], [place] [address]DrGerry Cannon MONO # 0.4 103/ul Normal 0.3-0.8 [facility] Comment on above: Performed By: #### C BC ####[facility] [address] [place] [id number]. David Cannon Monocytes/100 WBC (Bld) 6.6 % Normal 1.7-12.0 [facility] Comment on above: Performed By: #### C BC ####[facility] [address] [place] [address]Dr. David Cannon NEUT # 3.7 103/ul Normal 1.4-6.5 [facility] Comment on above: Performed By: #### C BC ####[facility] [address] [place] [address]Dr. David Cannon Neutrophils/100 WBC (Bld) 62.5 % Normal 43.0-75.0 [facility] Comment on above: Performed By: #### C BC ####[facility] [address] [place], [place] [address]Dr. David Cannon Platelet mean volume (Bld) [Entitic vol] 9.5 fL Normal 9.5-13.5 [facility] Comment on above: Performed By: #### C BC ####[facility] [address] [place], [place] [address]Dr. David Cannon PLT 216 103/ul Normal 150-450 [facility] Comment on above: Performed By: #### C BC ####[facility] [address] [place] [id number]. David Cannno RBC 4.75 106/ul Normal 4.20-5.40 [facility] Comment on above: Performed By: #### C BC ####[facility] [address]er[address] [place] [id number]. David Cannon WBC 5.9 103/ul Normal 4.0-11.0 [facility] Comment on above: Performed By: #### C BC ####[facility] [address] [place] [address] CT ABD/PELV W CONon 10-17-[address] ABD/PELV W CON CT ABD/PELV W [...] JANNA DHALIWAL Date: 2021-10-16 15:43 Normal [facility] ER URINE PROFILEon 2 Bilirubin Ql (U) Negative Normal NEGATIVE [facility] Comment on above: Performed By: #### U MICRO, ERUR #### [facility] [address] [place] [address] [address] David Cannon Clarity (U) SL CLOUDY Abnormal CLEAR [facility] Comment on above: Performed By: #### U MICRO, ERUR #### [facility] [address] [place] [address] Dr. David Cannon Color (U) YELLOW Normal YELLOW [facility] Comment on above: Performed By: #### U MICRO, ERUR #### [facility] [address] [place] [address] [address] David Cannon ERUAHD A micrscopic examination will be performed if indicated. Normal [facility] Comment on above: Performed By: #### U MICRO, ERUR #### [facility] 01 [place] [address] Dr. David Cannon Glucose Ql (U) Negative Normal NEGATIVE [facility] Comment on above: Performed By: #### U MICRO, ERUR #### [facility] [address] [place] [address] Dr. David Cannon Hemoglobin Ql (U) Negative Normal NEGATIVE [facility] Comment on above: Performed By: #### U MICRO, ERUR #### [facility] [address] [place] [address] Dr. David Cannon Ketones Ql (U) TRACE Abnormal NEGATIVE [facility] Comment on above: Performed By: #### U MICRO, ERUR #### [facility] [address] [place] [address] Dr. David Cannon LEUKOCYTES SMALL Abnormal NEGATIVE [facility] Comment on above: Performed By: #### U MICRO, ERUR #### [facility] [address] [place] [address] Dr. David Cannon Nitrite Ql (U) Positive Abnormal NEGATIVE [facility] Comment on above: Performed By: #### U MICRO, ERUR #### [facility] [address] [place] [address] Dr. David Cannon pH (U) 5.5 [pH] Normal 5-9 [facility] Comment on above: Performed By: #### U MICRO, ERUR #### [facility] [address] [place] [address] Dr. David Cannon SPEC GRAVITY >=1.030 Abnormal 1.005-<=1.[address] [place] [address] Comment on above: Performed By: #### U MICRO, ERUR #### [facility] [address] [place] [address] Dr. David Cannon UA PROTEIN Negative Normal NEGATIVE/ TRACE [facility] Comment on above: Performed By: #### U MICRO, ERUR #### [facility] [address] [place] [address] Dr. David Cannon UR MICRO IND INDICATED Normal [facility] Comment on above: Performed By: #### U MICRO, ERUR #### [facility] [address] [place] [address] Dr. David Cannon Urobilinogen Qn (U) 0.2 {Skip'U}/dL Normal 0.2 - 1. 0 [facility] Comment on above: Performed By: #### U MICRO, ERUR #### [facility] [address] [place] [address] Dr. David Cannon LIPASEon 10-16-2021 Lipase [Catalytic activity/Vol] 93.0 U/L Normal 73.0-393.0 [facility] Comment on above: Performed By: #### B MP, TSH #### [facility] [address] [place] [address] Dr. David Cannon PROF 14(COMP METB)on 022 Albumin [Mass/Vol] 4.1 g/dL Normal 3.4-5.0 [facility] Comment on above: Performed By: #### B MP, TSH #### [facility] [address] [place] [address] Dr. David Cannon Albumin/Globulin [Mass ratio] 1.1 {ratio} Normal [facility] Comment on above: Performed By: #### B MP, TSH #### [facility] [address] [place] [address] Dr. David Cannon ALP [Catalytic activity/Vol] 88 U/L Normal 46-116 [facility] Comment on above: Performed By: #### B MP, TSH #### [facility] [address] [address] [address] David Cannon ALT [Catalytic activity/Vol] 17 U/L Normal 14-59 [facility] Comment on above: Performed By: #### B MP, TSH #### [facility] [address] [address] [address] David Cannon Anion gap [Moles/Vol] 12.4 mmol/L Normal [facility] Comment on above: Performed By: #### B MP, TSH #### [facility] [address] [address] [address] David Cannon AST [Catalytic activity/Vol] 15 U/L Normal 15-37 [facility] Comment on above: Performed By: #### B MP, TSH #### [facility] [address] [place] [address] Dr. David Cannon Bilirubin [Mass/Vol] 0.2 mg/dL Normal 0.2-1.0 [facility] Comment on above: Performed By: #### B MP, TSH #### [facility] [address] [place] [address] Dr. David Cannon Calcium [Mass/Vol] 9.8 mg/dL Normal 8.5-10.1 [facility] Comment on above: Performed By: #### B MP, TSH #### [facility] [address] [place] [address] Dr. David Cannon Chloride [Moles/Vol] 103 mmol/L Normal 98-107 [facility] Comment on above: Performed By: #### B MP, TSH #### [facility] [address] [place] [address] Dr. David Cannon CO2 [Moles/Vol] 30.6 mmol/L Normal 21.0-32.0 [facility] Comment on above: Performed By: #### B MP, TSH #### [facility] [address] [address] [address] David Cannon Creatinine [Mass/Vol] 0.85 mg/dL Normal 0.55-1.02 [facility] Comment on above: Performed By: #### B MP, TSH #### [facility] [address] [address] [address] David Cannon EGFR-AF SRI LANKAN >60 Normal >=60 [facility] Comment on above: Performed By: #### B MP, TSH #### [facility] [address] [address] [address] David Cannon EGFR-NON AF SRI LANKAN >60 Normal >=60 [facility] Comment on above: Performed By: #### B MP, TSH #### [facility] [address] [address] [address] David Cannon Globulin (S) [Mass/Vol] 3.8 g/dL Normal [facility] Comment on above: Performed By: #### B MP, TSH #### [facility] [address] [place] [address] Dr. David Cannon Glucose [Mass/Vol] 119 mg/dL Critically high 74-106 [facility] Comment on above: Performed By: #### B MP, TSH #### [facility] [address] [address] [address] David Cannon Potassium [Moles/Vol] 4.0 mmol/L Normal 3.5-5.1 [facility] Comment on above: Performed By: #### B MP, TSH #### [facility] [address] [place] [address] Dr. David Cannon Protein [Mass/Vol] 7.9 g/dL Normal 6.4-8.2 [facility] Comment on above: Performed By: #### B MP, TSH #### [facility] [address] [place] [address] Dr. David Cannon Sodium [Moles/Vol] 142 mmol/L Normal 136-145 [facility] Comment on above: Performed By: #### B MP, TSH #### [facility] [address] [address] [address] David Cannon Urea nitrogen [Mass/Vol] 12.0 mg/dL Normal 7.0-18.0 [facility] Comment on above: Performed By: #### B MP, TSH #### [facility] [address] [address] [address] David Cannon Urea nitrogen/Creatinine [Mass ratio] 14.1 mg/mg Normal [facility] Comment on above: Performed By: #### B MP, TSH #### [facility] [address] [address] [address] David Cannon URINE MICROSCOPIC ONLYon BACTERIA LARGE Abnormal NONE SEEN [facility] Comment on above: Performed By: #### U MICRO, ERUR #### [facility] [address] [address] [address] David Cannon Bacteria identified Cx Nom (U) INDICATED Normal [facility] Comment on above: Performed By: #### U MICRO, ERUR #### [facility] [address] [place] [address] Dr. David Cannon CA OX CRYSTALS FEW Normal [facility] Comment on above: Performed By: #### U MICRO, ERUR #### [facility] [address] [place] [address] Dr. David Cannon CAST SEEN Abnormal NONE SEEN [facility] Comment on above: Performed By: #### U MICRO, ERUR #### [facility] [address] [place] [address] Dr. David Cannon Crystals LM Nom (Urine sed) SEEN Abnormal NONE SEEN [facility] Comment on above: Performed By: #### U MICRO, ERUR #### [facility] [address] [place] [address] Dr. David Cannon Epithelial cells LM Ql (Urine sed) RARE Normal NONE SEEN /RARE [facility] Comment on above: Performed By: #### U MICRO, ERUR #### [facility] [address] [address] [address] David Cannon HYALINE CAST FEW Normal [facility] Comment on above: Performed By: #### U MICRO, ERUR #### [facility] [address] [place] [address] Dr. David Cannon MUCOUS TRACE Abnormal NONE SEEN [facility] Comment on above: Performed By: #### U MICRO, ERUR #### [facility] [address] [address] [address] David Cannon RBC 2-5 Abnormal 0-2 [facility] Comment on above: Performed By: #### U MICRO, ERUR #### [facility] [address] [address] [address] David Cannon WBC 75-100 Abnormal NONE SEEN [facility] Comment on above: Performed By: #### U MICRO, ERUR #### [facility] [address] [address] [address] David Cannon XR ANKLE RT MIN [...] by: STEPHANIE DODD Date: 2021-10-05 10:56 Normal [facility] MRI TSPINE WO W CONon [...] by: CELIA CORMIER Date: 2021-09-01 07:29 Normal [facility] CREATININEon 08-31-2021 Creatinine [Mass/Vol] 0.82 mg/dL Normal 0.55-1.02 [facility] Comment on above: Performed By: #### C LUCIA #### [facility] [address] [address] [address] David Cannon EGFR-AF SRI LANKAN >60 Normal >=60 [facility] Comment on above: Performed By: #### C LUCIA #### [facility] [address] [address] [address] David Cannon EGFR-NON AF SRI LANKAN >60 Normal >=60 [facility] Comment on above: Performed By: #### C LUCIA #### [facility] [address] [address] [address] David Cannon COVID Quick Testingon 2021 Result Negative [employer] [facility] Other Quick Fluon 04-13-2021 FLUAV Ab CF (S) [Titer] Negative [employer] Other FLUBV Ab CF (S) [Titer] Negative [employer] [facility] Other Vital Signs Date Time Vital Sign Value Performing Clinician Facility 12-22-2024 13:04-0400 Body height 157.48 cm Nettie Iqbal MD Work Phone: [facility] 12-22-2024 13:04-0400 Body mass index (BMI) [Ratio] 18 kg/m2 Nettie Iqbal MD Work Phone: [facility] 12-22-2024 13:04-0400 Body weight 44.67 kg Nettie Iqbal MD Work Phone: [facility] 12-22-2024 13:04-0400 Diastolic blood pressure 71 mm[Hg] Nettie Iqbal MD Work Phone: [facility] 12-22-2024 13:04-0400 Heart rate 73 /min Nettie Iqbal MD Work Phone: [facility] 12-22-2024 13:04-0400 SaO2% (BldA) [Mass fraction] 92 % Nettie Iqbal MD Work Phone: [facility] 12-22-2024 13:04-0400 Systolic blood pressure 109 mm[Hg] Nettie Iqbal MD Work Phone: [facility] 10-01-2024 13:19-0400 Body height 157.48 cm Nettie Iqbal MD Work Phone: [facility] 10-01-2024 13:19-0400 Body mass index (BMI) [Ratio] 18.6 kg/m2 Nettie Iqbal MD Work Phone: [facility] 10-01-2024 13:190400 Body weight 46.26 kg Nettie Iqbal MD Work Phone: [facility] 10-01-2024 13:19-0400 Diastolic blood pressure 81 mm[Hg] Nettie Iqbal MD Work Phone: [facility] 10-01-2024 13:19-0400 Heart rate 66 /min Nettie Iqbal MD Work Phone: [facility] 10-01-2024 13:19-0400 Respiratory rate 18 /min Nettie Iqbal MD Work Phone: [facility] 10-01-2024 13:19-0400 Systolic blood pressure 142 mm[Hg] Nettie Iqbal MD Work Phone: [facility] 09-23-2024 13:040400 Body height 157.48 cm Nettie Iqbal MD Work Phone: [facility] 09-23-2024 13:04-0400 Body mass index (BMI) [Ratio] 18.8 kg/m2 Nettie Iqbal MD Work Phone: [facility] 09-23-2024 13:04-0400 Body weight 46.89 kg Nettie Iqbal MD Work Phone: [facility] 09-23-2024 13:04-0400 Diastolic blood pressure 71 mm[Hg] Nettie Iqbal MD Work Phone: [facility] 09-23-2024 13:04-0400 Heart rate 86 /min Nettie Iqbal MD Work Phone: [facility] 09-23-2024 13:04-0400 SaO2% (BldA) [Mass fraction] 92 % Nettie Iqbal MD Work Phone: [facility] 09-23-2024 13:04-0400 Systolic blood pressure 110 mm[Hg] Nettie Iqbal MD Work Phone: [facility] 06-23-2024 13:09-0400 Body height 157.48 cm [facility] 06-23-2024 13:09-0400 Body mass index (BMI) [Ratio] 19.7 kg/m2 [facility] 06-23-2024 13:09-0400 Body weight 48.98 kg [facility] 06-23-2024 13:09-0400 Diastolic blood pressure 81 mm[Hg] [facility] 06-23-2024 13:09-0400 Heart rate 85 /min [facility] 06-23-2024 13:09-0400 Systolic blood pressure 124 mm[Hg] [facility] 03-28-2024 13:03-0500 Body height 157.48 cm Nettie Iqbal MD Work Phone: [facility] 03-28-2024 13:03-0500 Body mass index (BMI) [Ratio] 18.6 kg/m2 Nettie Iqbal MD Work Phone: [facility] 03-28-2024 13:03-0500 Body weight 46.37 kg Nettie Iqbal MD Work Phone: [facility] 03-28-2024 13:03-0500 Diastolic blood pressure 71 mm[Hg] Nettie Iqbal MD Work Phone: [facility] 03-28-2024 13:03-0500 Heart rate 74 /min Nettie Iqbal MD Work Phone: [facility] 03-28-2024 13:03-0500 SaO2% (BldA) [Mass fraction] 91 % Nettie Iqbal MD Work Phone: [facility] 03-28-2024 13:03-0500 Systolic blood pressure 115 mm[Hg] Nettie Iqbal MD Work Phone: [facility] 03-21-2024 11:30-0500 Diastolic blood pressure 75 mm[Hg] Everett Dunlap MD Work Phone: [facility] 03-21-2024 11:30-0500 Heart rate 62 /min Everett Dunlap MD Work Phone: [facility] 03-21-2024 11:30-0500 Respiratory rate 18 /min Everett Dunlap MD Work Phone: [facility] 03-21-2024 11:30-0500 SaO2% (BldA) [Mass fraction] 96 % Everett Dunlap MD Work Phone: [facility] 03-21-2024 11:30-0500 Systolic blood pressure 122 mm[Hg] Everett Dunlap MD Work Phone: [facility] 03-21-2024 10:32-0500 Body temperature 97.2 [degF] Everett Dunlap MD Work Phone: [facility] 01-16-2024 16:03-0500 Body height 157.48 cm MD Nettie Iqbal Work Phone: [facility] 01-16-2024 16:03-0500 Body mass index (BMI) [Ratio] 18.6 kg/m2 MD Nettie Iqbal Work Phone: [facility] 01-16-2024 16:03-0500 Body temperature 99.3 [degF] MD Nettie Iqbal Work Phone: [facility] 01-16-2024 16:03-0500 Body weight 46.35 kg MD Nettie Iqbal Work Phone: [facility] 01-16-2024 16:03-0500 Diastolic blood pressure 80 mm[Hg] MD Nettie Iqbal Work Phone: [facility] 01-16-2024 16:03-0500 Heart rate 77 /min MD Nettie Iqbal Work Phone: [facility] 01-16-2024 16:03-0500 Respiratory rate 16 /min MD Nettie Iqbal Work Phone: [facility] 01-16-2024 16:03-0500 SaO2% (BldA) [Mass fraction] 96 % MD Nettie Iqbal Work Phone: [facility] 01-16-2024 16:03-0500 Systolic blood pressure 127 mm[Hg] MD Nettie Iqbal Work Phone: [facility] 12-25-2023 13:30-0400 Body height 157.48 cm MD Nettie Iqbal Work Phone: [facility] 12-25-2023 13:30-0400 Body mass index (BMI) [Ratio] 19.8 kg/m2 MD Nettie Iqbal Work Phone: [facility] 12-25-2023 13:30-0400 Body weight 49.1 kg MD Nettie Iqbal Work Phone: [facility] 12-25-2023 13:30-0400 Diastolic blood pressure 70 mm[Hg] MD Nettie Iqbal Work Phone: [facility] 12-25-2023 13:30-0400 Heart rate 71 /min MD Nettie Iqbal Work Phone: [facility] 12-25-2023 13:30-0400 Respiratory rate 16 /min MD Nettie Iqbal Work Phone: [facility] 12-25-2023 13:30-0400 SaO2% (BldA) [Mass fraction] 95 % MD Nettie Iqbal Work Phone: [facility] 12-25-2023 13:30-0400 Systolic blood pressure 124 mm[Hg] MD Nettie Iqbal Work Phone: [facility] 12-19-2023 11:14-0400 Body weight 48 kg Everett Dunlap MD Work Phone: [facility] 12-19-2023 11:14-0400 Diastolic blood pressure 60 mm[Hg] Everett Dunlap MD Work Phone: [facility] 12-19-2023 11:14-0400 Heart rate 75 /min Everett Dunlap MD Work Phone: [facility] 12-19-2023 11:14-0400 Systolic blood pressure 116 mm[Hg] Everett Dunlap MD Work Phone: [facility] 11-26-2023 09:18-0400 Body height 157.48 cm MD Nettie Iqbal Work Phone: [facility] 11-26-2023 09:18-0400 Body mass index (BMI) [Ratio] 18.3 kg/m2 MD Nettie Iqbal Work Phone: [facility] 11-26-2023 09:18-0400 Body weight 45.35 kg MD Nettie Iqbal Work Phone: [facility] 11-26-2023 09:18-0400 Diastolic blood pressure 72 mm[Hg] MD Nettie Iqbal Work Phone: [facility] 11-26-2023 09:18-0400 Heart rate 80 /min MD Nettie Iqbal Work Phone: [facility] 11-26-2023 09:18-0400 Systolic blood pressure 105 mm[Hg] MD Nettie Iqbal Work Phone: [facility] 09-24-2023 13:09-0400 Body height 157.48 cm [facility] 09-24-2023 13:09-0400 Body mass index (BMI) [Ratio] 18.3 kg/m2 [facility] 09-24-2023 13:09-0400 Body weight 45.47 kg [facility] 09-24-2023 13:09-0400 Diastolic blood pressure 82 mm[Hg] [facility] 09-24-2023 13:09-0400 Heart rate 73 /min [facility] 09-24-2023 13:09-0400 Systolic blood pressure 120 mm[Hg] [facility] 08-11-2023 11:04-0400 Body height 157.48 cm MD Nettie Iqbal Work Phone: [facility] 08-11-2023 11:04-0400 Body mass index (BMI) [Ratio] 19.1 kg/m2 MD Nettie Iqbal Work Phone: [facility] 08-11-2023 11:04-0400 Body temperature 97.4 [degF] MD Nettie Iqbal Work Phone: [facility] 08-11-2023 11:04-0400 Body weight 47.28 kg MD Nettie Iqbal Work Phone: [facility] 08-11-2023 11:04-0400 Heart rate 67 /min MD Nettie Iqbal Work Phone: [facility] 08-11-2023 11:04-0400 Respiratory rate 18 /min MD Nettie Iqbal Work Phone: [facility] 08-11-2023 11:04-0400 SaO2% (BldA) [Mass fraction] 91 % MD Nettie Iqbal Work Phone: [facility] 06-22-2023 13:02-0400 Body height 157.48 cm [facility] 06-22-2023 13:02-0400 Body mass index (BMI) [Ratio] 19.5 kg/m2 [facility] 06-22-2023 13:02-0400 Body weight 48.59 kg [facility] 06-22-2023 13:02-0400 Diastolic blood pressure 79 mm[Hg] [facility] 06-22-2023 13:02-0400 Heart rate 69 /min [facility] 06-22-2023 13:02-0400 Systolic blood pressure 143 mm[Hg] [facility] 06-15-2023 15:16-0400 Diastolic blood pressure 67 mm[Hg] [facility] [address] [place] [address] 06-15-2023 15:16-0400 Heart rate 59 /min [facility] [employer] 06-15-2023 15:16-0400 Respiratory rate 12 /min [facility] [employer] 06-15-2023 15:16-0400 SaO2% (BldA) [Mass fraction] 95 % [facility] [employer] 06-15-2023 15:16-0400 Systolic blood pressure 152 mm[Hg] [facility] 06-15-2023 11:59-0400 Body temperature 98.29 [degF] [facility] [employer] 04-11-2023 14:20-0500 Body height 157.48 cm [employer] Other [facility] 04-11-2023 14:20-0500 Body mass index (BMI) [Ratio] 19.75 kg/m2 [employer] Other [employer] Other 04-11-2023 14:20-0500 Body weight 48.99 kg [employer] Other [employer] Other 04-11-2023 14:20-0500 Body weight 48.98 kg [facility] 02-27-2023 11:00-0500 Body height 157.48 cm [employer] Other [employer] Other 02-27-2023 11:00-0500 Body mass index (BMI) [Ratio] 19.75 kg/m2 [employer] Other [employer] Other 02-27-2023 11:00-0500 Body weight 48.99 kg [employer] Other [employer] Other 10-24-2022 13:00-0400 Body height 157.48 cm Nettie Iqbal Other [employer] Other 10-24-2022 13:00-0400 Body mass index (BMI) [Ratio] 21.21 kg/m2 Nettie Iqbal Other [employer] Other 10-24-2022 13:00-0400 Body weight 52.62 kg Nettie Iqbal Other [employer] Other 10-24-2022 13:00-0400 Diastolic blood pressure 82 mm[Hg] Nettie Iqbal Other [employer] Other 10-24-2022 13:00-0400 Systolic blood pressure 129 mm[Hg] Nettie Iqbal Other [employer] Other 09-07-2022 14:15-0400 Body height 157.48 cm Kiran Barksdale Other [employer] Other 09-07-2022 14:15-0400 Body mass index (BMI) [Ratio] 20.48 kg/m2 Kiran Barksdale Other [employer] Other 09-07-2022 14:15-0400 Body weight 50.8 kg Kiran Barksdale Other [employer] Other 09-07-2022 14:15-0400 Diastolic blood pressure 80 mm[Hg] Kiran Barksdale Other [employer] Other 09-07-2022 14:15-0400 Systolic blood pressure 137 mm[Hg] Kiran Barksdale Other [employer] Other 08-29-2022 14:00-0400 Body height 157.48 cm Nettie Iqbal Other [employer] Other 08-29-2022 14:00-0400 Body mass index (BMI) [Ratio] 20.3 kg/m2 Nettie Kathy Other [employer] Other 08-29-2022 14:00-0400 Body weight 50.35 kg Nettie Iqbal Other [employer] Other 08-29-2022 14:00-0400 Diastolic blood pressure 85 mm[Hg] Nettie Iqbal Other [employer] Other 08-29-2022 14:00-0400 Systolic blood pressure 144 mm[Hg] Nettie Iqbal Other [employer] Other 08-25-2022 16:50-0400 Body height 157.48 cm Sandra Flores Other [employer] Other 08-25-2022 16:50-0400 Body mass index (BMI) [Ratio] 20.59 kg/m2 Sandra Flores Other [employer] Other 08-25-2022 16:50-0400 Body temperature 96.6 [degF] Sandra Flores Other [employer] Other 08-25-2022 16:50-0400 Body weight 51.08 kg Sandra Flores Other [employer] Other 08-25-2022 16:50-0400 Diastolic blood pressure 71 mm[Hg] Sandra Flores Other [employer] Other 08-25-2022 16:50-0400 Respiratory rate 20 /min Sandra Flores Other [employer] Other 08-25-2022 16:50-0400 SaO2% (BldA) [Mass fraction] 94 % Sandra Flores Other [employer] Other 08-25-2022 16:50-0400 Systolic blood pressure 106 mm[Hg] Sandra Flores Other [employer] Other 08-03-2022 14:30-0400 Body height 157.48 cm eNttie Iqbal Other [employer] Other 08-03-2022 14:30-0400 Body mass index (BMI) [Ratio] 21.21 kg/m2 Nettie Iqbal Other [employer] Other 08-03-2022 14:30-0400 Body weight 52.62 kg Nettie Iqbal Other [employer] Other 08-03-2022 14:30-0400 Diastolic blood pressure 93 mm[Hg] Nettie Iqbal Other [employer] Other 08-03-2022 14:30-0400 Systolic blood pressure 143 mm[Hg] Nettie Iqbal Other [employer] Other 06-20-2022 16:20-0400 Body height 157.48 cm Vanessa Sanford Other [employer] Other 06-20-2022 16:20-0400 Body mass index (BMI) [Ratio] 21.95 kg/m2 Vanessa Sanford Other [employer] Other 06-20-2022 16:20-0400 Body temperature 98.9 [degF] Vanessa Sanford Other [employer] Other 06-20-2022 16:20-0400 Body weight 54.43 kg Vanessa Juvenal Other [employer] Other 06-20-2022 16:20-0400 Diastolic blood pressure 81 mm[Hg] Vanessa Sanford Other [employer] Other 06-20-2022 16:20-0400 Respiratory rate 18 /min Vanessa Sanford Other [employer] Other 06-20-2022 16:20-0400 SaO2% (BldA) [Mass fraction] 99 % Vanessa Juvenal Other [employer] Other 06-20-2022 16:20-0400 Systolic blood pressure 150 mm[Hg] Vanessa Juvenal Other [employer] Other 06-16-2022 12:30-0400 Body height 157.48 cm Phani Ball Other [employer] Other 06-16-2022 12:30-0400 Body mass index (BMI) [Ratio] 22.2 kg/m2 Phani Ball Other [employer] Other 06-16-2022 12:30-0400 Body weight 55.07 kg Phani Ball Other [employer] Other 06-16-2022 12:30-0400 Diastolic blood pressure 75 mm[Hg] Phani Ball Other [employer] Other 06-16-2022 12:30-0400 Respiratory rate 12 /min Phani Ball Other [employer] Other 06-16-2022 12:30-0400 Systolic blood pressure 139 mm[Hg] Phani Ball Other [employer] Other 05-29-2022 14:45-0400 Body height 157.48 cm Phani Ball Other [employer] Other 05-29-2022 14:45-0400 Body mass index (BMI) [Ratio] 21.25 kg/m2 Phani Ball Other [employer] Other 05-29-2022 14:45-0400 Body weight 52.71 kg Phani Ball Other [employer] Other 05-29-2022 14:45-0400 Diastolic blood pressure 98 mm[Hg] Phani Ball Other [employer] Other 05-29-2022 14:45-0400 Respiratory rate 12 /min Phani Ball Other [employer] Other 05-29-2022 14:45-0400 Systolic blood pressure 150 mm[Hg] Phani Ball Other [employer] Other 03-14-2022 15:30-0500 Body height 157.48 cm Kiran Barksdale Other [employer] Other 03-14-2022 15:30-0500 Body mass index (BMI) [Ratio] 19.57 kg/m2 Kiran Barksdale Other [employer] Other 03-14-2022 15:30-0500 Body weight 48.54 kg Kiran Barksdale Other [employer] Other 03-14-2022 15:30-0500 Diastolic blood pressure 96 mm[Hg] Kiran Barksdale Other [employer] Other 03-14-2022 15:30-0500 Systolic blood pressure 136 mm[Hg] Kiran Barksdale Other [employer] Other 01-20-2022 11:40-0500 Diastolic blood pressure 84 mm[Hg] DO Phani Ball Work Phone: [facility] 01-20-2022 11:40-0500 Heart rate 79 /min DO Phani Ball Work Phone: [facility] 01-20-2022 11:40-0500 Respiratory rate 18 /min DO Phani Ball Work Phone: [facility] 01-20-2022 11:40-0500 SaO2% (BldA) [Mass fraction] 97 % DO Phani Ball Work Phone: [facility] 01-20-2022 11:40-0500 Systolic blood pressure 143 mm[Hg] DO Phani Ball Work Phone: [facility] 01-20-2022 09:05-0500 Body height 157.48 cm DO Phani Ball Work Phone: [facility] 01-20-2022 09:05-0500 Body temperature 98.2 [degF] DO Phani Ball Work Phone: [facility] 01-20-2022 09:05-0500 Body weight 51.25 kg DO Phani Ball Work Phone: [facility] 12-09-2021 12:00-0400 Body height 157.48 cm Kiran Barksdale Other [employer] Other 12-09-2021 12:00-0400 Body mass index (BMI) [Ratio] 21.58 kg/m2 Kiran Barksdale Other [employer] Other 12-09-2021 12:00-0400 Body weight 53.52 kg Kiran Barksdale Other [employer] Other 09-05-2021 17:00-0400 Body height 157.48 cm Ambrose Torres Other [employer] Other 09-05-2021 17:00-0400 Body mass index (BMI) [Ratio] 23.01 kg/m2 Ambrose Torres Other [employer] Other 09-05-2021 17:00-0400 Body weight 57.06 kg Ambrose Torres Other [employer] Other 06-13-2021 10:45-0400 Body height 157.48 cm Janna Pina Other [employer] Other 06-13-2021 10:45-0400 Body mass index (BMI) [Ratio] 23.23 kg/m2 Janna Pina Other [employer] Other 06-13-2021 10:45-0400 Body weight 57.61 kg Janna Pina Other [employer] Other 06-13-2021 10:45-0400 Diastolic blood pressure 107 mm[Hg] Janna Pina Other [employer] Other 06-13-2021 10:45-0400 Systolic blood pressure 145 mm[Hg] Janna Pina Other [employer] Other 04-13-2021 10:05-0500 Body height 157.48 cm Shira Cunningham Other [employer] Other 04-13-2021 10:05-0500 Body mass index (BMI) [Ratio] 22.86 kg/m2 Shira Cunningham Other [employer] Other 04-13-2021 10:05-0500 Body temperature 96.2 [degF] Shira Cunningham Other [employer] Other 04-13-2021 10:05-0500 Body weight 56.7 kg Shira Cunningham Other [employer] Other 04-13-2021 10:05-0500 Respiratory rate 18 /min Shira Cunningham Other [employer] Other 04-13-2021 10:05-0500 SaO2% (BldA) [Mass fraction] 95 % Shira Cunningham Other [employer] Other 01-20-2021 12:00-0500 Body height 157.48 cm Janna Bakerrenzo Other [employer] Other 01-20-2021 12:00-0500 Body mass index (BMI) [Ratio] 23.04 kg/m2 Janna Pina Other [employer] Other 01-20-2021 12:00-0500 Body weight 57.15 kg Janna Yovani Other [employer] Other 12-07-2020 15:30-0400 Body height 157.48 cm Janna Yovani Other [employer] Other 12-07-2020 15:30-0400 Body mass index (BMI) [Ratio] 22.86 kg/m2 Janna Yovani Other [employer] Other 12-07-2020 15:30-0400 Body weight 56.7 kg Janna Yovani Other [employer] Other Encounters Encounter Date Encounter Type Care Provider Facility Start: 12-22-2024 End: 12-22-2024 ambulatory Nettie Iqbal MD Work Phone: [facility] Work Phone: Start: 12-22-2024 End: 12-22-2024 Patient encounter procedure Nettie Iqbal MD -[facility] Work Phone: Start: 11-17-2024 End: 11-17-2024 ambulatory Vickey Beasley MD Facility:[facility] Start: 11-03-2024 End: 11-03-2024 ambulatory Vickey Beasley MD Facility:[facility] Start: 10-20-2024 End: 10-20-2024 ambulatory Vickey Beasley MD Facility:[facility] Start: 10-01-2024 End: 10-01-2024 ambulatory Nettie Iqbal MD Work Phone: [facility] Work Phone: Start: 10-01-2024 End: 10-01-2024 Patient encounter procedure Obed Murray APRN -[facility] Work Phone: Start: 09-23-2024 End: 09-23-2024 ambulatory Nettie Iqbal MD Work Phone: [facility] Work Phone: Start: 09-23-2024 End: 09-23-2024 Patient encounter procedure Nettie Iqbal MD -[facility] Work Phone: Start: 09-15-2024 End: 09-15-2024 ambulatory Vickey Beasley MD Facility:[facility] Start: 08-21-2024 Non-patient / Non-visit Jaymie REVELES -[facility] Work Phone: Start: 07-15-2024 End: 07-22-2024 Telephone encounter Everett Dunlap MD Work Phone: Gastroenterology Start: 07-05-2024 End: 07-05-2024 Patient encounter procedure Nettie Iqbal MD Work Phone: [facility] [place] Work Phone: Start: 07-05-2024 End: 07-05-2024 ambulatory Nettie Iqbal MD Work Phone: [facility] Work Phone: Start: 06-23-2024 End: 06-23-2024 ambulatory [facility] Work Phone: Start: 06-23-2024 End: 06-23-2024 Patient encounter procedure [facility] Work Phone: Start: 03-31-2024 End: 03-31-2024 Telephone encounter Everett Dunlap MD Work Phone: Gastroenterology Comment on above: Follow Up Tests Resu lts (Cytology---->recommend MRCP in [address] Erwin) Start: 03-28-2024 End: 03-28-2024 ambulatory Nettie Iqbal MD Work Phone: [facility] Work Phone: Start: 03-28-2024 End: 03-28-2024 Patient encounter procedure Nettie Iqbal MD Work Phone: [facility] Work Phone: Start: 03-21-2024 ambulatory [facility] Facility:[facility] Start: 03-21-2024 End: 03-21-2024 Subsequent hospital visit by physician Everett Dunlap MD Work Phone: [facility] - ENDO Comment on above: Pancreatic cyst [K86 .2] Start: 03-20-2024 End: 03-20-2024 Telephone encounter Everett Dunlap MD Work Phone: [facility] - END[facility] Start: 03-19-2024 Registered Recurring Nettie balderas MD Work Phone: [facility] Start: 03-14-2024 End: 03-14-2024 ambulatory Everett Dunlap MD Work Phone: [facility] - END[facility] Start: 02-14-2024 End: 02-19-2024 Telephone encounter Everett Dunlap MD Work Phone: Gastroenterology Start: 02-13-2024 End: 02-13-2024 Telephone encounter Everett Dunlap MD Work Phone: [facility] - END[facility] Start: 02-05-2024 End: 02-05-2024 ambulatory Everett Dunlap MD Work Phone: [facility] - END[facility] Start: 01-16-2024 End: 01-16-2024 Departed Referred MD Nettie Iqbal Work Phone: [facility] [place] Work Phone: Start: 01-16-2024 End: 01-16-2024 ambulatory MD Nettie Iqbal Work Phone: [facility] Work Phone: Start: 01-16-2024 End: 01-16-2024 Patient encounter procedure MD Nettie Iqbal Work Phone: [facility] [place] Work Phone: Start: 01-08-2024 Non-patient / Non-visit MD Anny Iqbal Work Phone: [facility] Work Phone: Start: 01-03-2024 Non-patient / Non-visit MD Anny Iqbal Work Phone: [facility] Work Phone: Start: 01-03-2024 Registered Recurring MD Nettie Iqbal Work Phone: [facility] Start: 12-25-2023 End: 12-25-2023 ambulatory MD Nettie Iqbal Work Phone: [facility] Work Phone: Start: 12-25-2023 End: 12-25-2023 Patient encounter procedure MD Nettie Iqbal Work Phone: [facility] Work Phone: Start: 12-19-2023 End: 12-19-2023 ambulatory EVERETT DUNLAP Facility[facility] Start: 12-19-2023 End: 12-19-2023 Patient encounter procedure Everett Dunlap MD Work Phone: Gastroenterology Comment on above: Chronic LUQ pain (Pr imary Dx); Weight loss; Pancreatic cyst; Family history of colon cancer in father; Smoker Start: 12-12-2023 Non-patient / Non-visit MD Anny Iqbal Work Phone: [facility] Work Phone: Start: 12-12-2023 Non-patient / Non-visit MD Anny Iqbal Work Phone: [facility] Work Phone: Start: 12-06-2023 Registered Recurring MD Nettie Iqbal Work Phone: [facility] Start: 11-30-2023 End: 12-04-2023 Telephone encounter Everett Dunlap MD Work Phone: Gastroenterology Comment on above: Procedure (Referred for EUS--->needs OV first) Start: 11-26-2023 End: 11-26-2023 ambulatory MD Nettie Iqbal Work Phone: [facility] Work Phone: Start: 11-26-2023 End: 11-26-2023 Patient encounter procedure MD Nettie Iqbal Work Phone: [facility] Work Phone: Start: 11-02-2023 End: 11-02-2023 Patient encounter procedure MD Nettie Iqbal Work Phone: [facility] [place] Work Phone: Start: 11-02-2023 End: 11-02-2023 ambulatory MD Nettie Iqbal Work Phone: [facility] Work Phone: Start: 09-24-2023 End: 09-24-2023 ambulatory [facility] Work Phone: Start: 09-24-2023 End: 09-24-2023 Patient encounter procedure [facility] Work Phone: Start: 08-11-2023 End: 08-11-2023 ambulatory MD Nettie Iqbal Work Phone: [facility] Work Phone: Start: 08-11-2023 End: 08-11-2023 Patient encounter procedure MD Nettie Iqbal Work Phone: [facility] [place] Work Phone: Start: 07-26-2023 End: 07-26-2023 Patient encounter procedure MD Nettie Iqbal Work Phone: [facility] Work Phone: Start: 06-22-2023 End: 06-22-2023 Departed Referred MD Nettie Iqbal Work Phone: [facility] [place] Work Phone: Start: 06-22-2023 End: 06-22-2023 ambulatory [facility] Work Phone: Start: 06-22-2023 End: 06-22-2023 Patient encounter procedure [facility] Work Phone: Start: 06-15-2023 End: 06-18-2023 ambulatory GABBY LO [facility] [place] [facility] Start: 06-15-2023 End: 06-17-2023 Subsequent hospital visit by physician Ricardo Carbajal MD Work Phone: [facility] Comment on above: Compression fracture of T12 vertebra with delayed healing, subsequent encounter; Other osteoporosis with current pathological fracture, vertebra(e), initial encounter for fracture (HCC) Start: 06-13-2023 End: 06-14-2023 ambulatory GABBY [facility] Start: 05-28-2023 Non-patient / Non-visit [facility] [employer] Work Phone: Start: 04-19-2023 End: 04-19-2023 Subsequent hospital visit by physician Rad External Film EF RAD EXTERNAL [employer]M [employer] Comment on above: Arrived Start: 04-13-2023 End: 04-13-2023 ambulatory Nettie Iqbal Other [employer] Other Start: 04-13-2023 Telephone encounter Nettie Iqbal [facility] Start: 04-11-2023 End: 04-11-2023 ambulatory Ana Kim Other [employer] Other Start: 04-11-2023 Office outpatient vi sit 15 minutes Ana cliniq.ly [facility] [place] [facility] Start: 04-11-2023 End: 04-11-2023 [facility] encounter [facility] Start: 03-08-2023 End: 03-08-2023 ambulatory Nettie Iqbal Other [employer] Other Start: 03-08-2023 Office outpatient vi sit 15 minutes Nettie Iqbal [facility] Start: 03-08-2023 Telephone encounter Nettie Iqbal [facility] Start: 03-02-2023 End: 03-02-2023 ambulatory Ana Kim Other [employer] Other Start: 03-02-2023 Telephone encounter Ana Kim [facility] Start: 02-27-2023 Office outpatient vi sit 25 minutes Ana Kim [facility] [place] [facility] Start: 02-27-2023 End: 02-27-2023 ambulatory MD Nettie Iqbal Work Phone: [facility] Work Phone: Start: 02-27-2023 End: 02-27-2023 Patient encounter procedure MD Nettie Iqbal Work Phone: [facility] Work Phone: Start: 02-20-2023 End: 02-20-2023 ambulatory Nettie Iqbal Other [employer] Other Start: 02-20-2023 Telephone encounter Nettie Iqbal [facility] Start: 02-15-2023 End: 02-15-2023 ambulatory Nettie Iqbal Other [employer] Other Start: 02-15-2023 Telephone encounter Nettie Iqbal [facility] Start: 02-12-2023 End: 02-12-2023 ambulatory Nettie Iqbal Other [employer] Other Start: 02-12-2023 Telephone encounter Nettie Iqbal [facility] Start: 01-29-2023 End: 01-29-2023 ambulatory Kiran Barksdale Other [employer] Other Start: 01-29-2023 Telephone encounter Kiran arnett [facility] Gastroenterology Start: 01-26-2023 End: 01-26-2023 ambulatory Kiran Barksdale Other [employer] Other Start: 01-26-2023 Telephone encounter Kiran arnett [facility] Start: 01-25-2023 End: 01-25-2023 ambulatory Nettie Iqbal Other [employer] Other Start: 01-25-2023 Telephone encounter Nettie Iqbal [facility] Start: 01-23-2023 End: 01-24-2023 ambulatory ROBIN FLANNERY Not Available Start: 01-22-2023 End: 01-22-2023 ambulatory Nettie Iqbal Other [employer] Other Start: 01-22-2023 Telephone encounter Nettie Kathy [facility] Start: 01-15-2023 (Televisit) Televisit Nettie Iqbal Jam[facility] Start: 01-15-2023 End: 01-15-2023 ambulatory Nettie Iqbal Other [employer] Other Start: 01-12-2023 End: 01-12-2023 ambulatory Nettie Iqbal Other [employer] Other Start: 01-12-2023 Telephone encounter Nettie Kathy [facility] Start: 01-11-2023 End: 01-11-2023 ambulatory MD Nettie Iqbal Work Phone: [facility] Work Phone: Start: 01-11-2023 End: 01-11-2023 Patient encounter procedure MD Nettie Iqbal Work Phone: [facility] Work Phone: Start: 12-28-2022 End: 12-28-2022 ambulatory Nettie Iqbal Other [employer] Other Start: 12-28-2022 Telephone encounter Nettie Kathy [facility] Start: 12-26-2022 (Televisit) Televisit Nettie Iqbal Jamari [facility] Start: 12-26-2022 End: 12-26-2022 ambulatory Nettie Iqbal Other [employer] Other Start: 12-25-2022 Telephone encounter Nettie Kathy [facility] Start: 12-25-2022 End: 12-26-2022 ambulatory [place] RAMOS [facility] [employer] Other Start: 12-25-2022 End: 12-25-2022 Patient encounter procedure [place] [facility] Start: 12-18-2022 End: 12-18-2022 Office outpatient new 45 minutes Libby Muñoz PA-C Work Phone: [facility] Comment on above: Pancreas cyst (Prima ry Dx) Start: 11-28-2022 End: 11-28-2022 ambulatory Kiran Barksdale Other [employer] Other Start: 11-28-2022 Telephone encounter Kiran [facility] G[facility] Start: 11-27-2022 End: 11-27-2022 ambulatory Nettie Iqbal Other [employer] Other Start: 11-27-2022 Telephone encounter Nettie Iqbal [facility] Start: 11-23-2022 (Televisit) Televisit Nettie Iqbal [facility] Start: 11-23-2022 End: 11-23-2022 ambulatory Nettie Iqbal Other [employer] Other Start: 11-22-2022 End: 11-22-2022 ambulatory Nettie Iqbal Other [employer] Other Start: 11-22-2022 Telephone encounter Nettie Iqbal [facility] Start: 11-20-2022 End: 11-20-2022 Departed Referred MD Nettie Iqbal Work Phone: [facility] Work Phone: Start: 11-20-2022 End: 11-20-2022 Patient encounter procedure MD Nettie Iqbal Work Phone: [facility] Work Phone: Start: 11-20-2022 End: 11-20-2022 ambulatory MD Nettie Iqbal Work Phone: [facility] Work Phone: Start: 11-20-2022 Telephone encounter Nettie Iqbal [facility] Start: 11-15-2022 End: 11-15-2022 ambulatory Nettie Iqbal Other [employer] Other Start: 11-15-2022 Telephone encounter Nettie Iqbal [facility] Start: 11-09-2022 End: 11-09-2022 ambulatory MD Nettie Iqbal Work Phone: [facility] Work Phone: Start: 11-09-2022 End: 11-09-2022 Patient encounter procedure MD Nettie Iqbal Work Phone: [facility] [place] Work Phone: Start: 11-02-2022 End: 11-02-2022 ambulatory Nettie Iqbal Other [employer] Other Start: 11-02-2022 Telephone encounter Nettie Iqbal [facility] Start: 10-24-2022 End: 10-24-2022 ambulatory Nettie Iqbal Other [employer] Other Start: 10-24-2022 Office outpatient vi sit 15 minutes Nettie Iqbal [facility] Start: 10-19-2022 End: 10-19-2022 ambulatory Shira Cunningham Other [employer] Other Start: 10-19-2022 Telephone encounter Shira [facility] Start: 10-18-2022 End: 10-18-2022 ambulatory Nettie Iqbal Other [employer] Other Start: 10-18-2022 Telephone encounter Nettie Iqbal [facility] Start: 10-17-2022 End: 10-17-2022 ambulatory Nettie Iqbal Other [employer] Other Start: 10-17-2022 Telephone encounter Nettie Iqbal [facility] Start: 10-05-2022 End: 10-05-2022 ambulatory Kiran Barksdale Other [employer] Other Start: 10-05-2022 Telephone encounter Kiran arnett [facility] Gastroenterology Start: 10-04-2022 End: 10-04-2022 ambulatory Nettie Iqbal Other [employer] Other Start: 10-04-2022 Telephone encounter Nettie Iqbal [facility] Start: 09-07-2022 End: 09-07-2022 ambulatory Kiran Barksdale Other [employer] Other Start: 09-07-2022 Office outpatient vi sit 25 minutes Kiran Barksdale [facility] Gastroenterology Start: 09-06-2022 End: 09-06-2022 ambulatory Nettie Iqbal Other [employer] Other Start: 09-06-2022 Telephone encounter Nettie Iqbal [facility] Start: 08-29-2022 End: 08-29-2022 ambulatory Nettie Iqbal Other [employer] Other Start: 08-29-2022 Office outpatient vi sit 15 minutes Nettie Iqbal [facility] Start: 08-25-2022 End: 08-25-2022 ambulatory Sandra Flores Other [employer] Other Start: 08-25-2022 Office outpatient vi sit 15 minutes Sandra Flores [facility] [place] Start: 08-14-2022 End: 08-14-2022 ambulatory Phani Pruitt Other [employer] Other Start: 08-14-2022 Telephone encounter Phani GARCIA [facility] Start: 08-10-2022 End: 08-10-2022 ambulatory Phani Pruitt Other [employer] Other Start: 08-10-2022 Telephone encounter Phani GARCIA [facility] Start: 08-08-2022 End: 08-08-2022 ambulatory Nettie Iqbal Other [employer] Other Start: 08-08-2022 Telephone encounter Nettie Iqbal [facility] Start: 08-03-2022 End: 08-03-2022 ambulatory Nettie Iqbal Other [employer] Other Start: 08-03-2022 Office outpatient vi sit 15 minutes Nettie Iqbal [facility] Start: 07-27-2022 End: 07-28-[address] DOCTOR HYATT Facility:[facility] Start: 07-21-2022 End: 07-21-2022 ambulatory Phani Pruitt Other [employer] Other Start: 07-21-2022 Telephone encounter Phani Pruitt [facility] Start: 07-20-2022 End: 07-21-[address] PHANI PRUITT Facility:[facility] Start: 07-12-2022 End: 07-12-2022 ambulatory Phani Pruitt Other [employer] Other Start: 07-12-2022 Telephone encounter Phani Pruitt [facility] Start: 06-27-2022 End: 06-27-2022 ambulatory Vanessa Sanford Other [employer] Other Start: 06-27-2022 Telephone encounter Vanessa Sanford [facility] Start: 06-22-2022 End: 06-22-2022 ambulatory Phani Pruitt Other [employer] Other Start: 06-22-2022 Telephone encounter Phani Pruitt [facility] Start: 06-20-2022 End: 06-20-2022 Departed Referred SHEILA Sanford Work Phone: [facility] [place] Work Phone: Start: 06-20-2022 End: 06-20-2022 ambulatory SHEILA Sanford Work Phone: [facility] Work Phone: Start: 06-20-2022 Office outpatient vi sit 15 minutes Vanessa Bentleyler [facility] [place] Start: 06-16-2022 End: 06-17-[address] PHANI PRUITT [facility] [employer] Other Start: 06-16-2022 Office outpatient vi sit 25 minutes Phani Pruitt [facility] Start: 06-06-2022 End: 06-07-2022 ambulatory AINSLEY WATERMAN . Facility: Start: 05-29-2022 End: 05-30-[address] PHANI PRUITT [facility] [employer] Other Start: 05-29-2022 Office outpatient vi sit 25 minutes Phani Pruitt [facility] Start: 05-29-2022 Telephone encounter Phani Pruitt [facility] Start: 05-12-2022 End: 05-12-2022 ambulatory Phani Pruitt Other [employer] Other Start: 05-12-2022 Telephone encounter Phani Edmond [facility] Start: 05-09-2022 End: 05-09-2022 ambulatory Phani Edmond Other [employer] Other Start: 05-09-2022 Office outpatient vi sit 15 minutes Phani Pruitt [facility] Start: 05-09-2022 Telephone encounter Phani Pruitt [facility] Start: 04-28-2022 End: 04-28-2022 ambulatory Phani Pruitt Other [employer] Other Start: 04-28-2022 Telephone encounter Phani Ball [facility] Start: 04-24-2022 End: 04-24-2022 ambulatory Phani Edmond Other [employer] Other Start: 04-24-2022 Telephone encounter Phani Ball [facility] Start: 04-20-2022 End: 04-20-2022 ambulatory Phani Edmond Other [employer] Other Start: 04-20-2022 Telephone encounter Phani Ball [facility] Start: 04-17-2022 End: 04-17-[address] ABDELRAHMAN WEINSTEIN . Facility:[facility] Start: 04-16-2022 Encounter for other preprocedural examination DR ABDELRAHMAN WEINSTEIN . [facility] Start: 04-14-2022 End: 04-15-[address] ABDELRAHMAN WEINSTEIN . Facility:[facility] Start: 04-14-2022 End: 04-15-2022 Encounter for other preprocedural examination DR ABDELRAHMAN WEINSTEIN . Facility:[facility] Start: 04-13-2022 End: 04-13-2022 ambulatory Phani Pruitt Other [employer] Other Start: 04-13-2022 Telephone encounter Phani Cleary [facility] Start: 04-10-2022 End: 04-10-[address] ABDELRAHMAN WEINSTEIN . Facility:[facility] Start: 03-25-2022 End: 03-25-2022 ambulatory Kiran Barksdale Other [employer] Other Start: 03-25-2022 Telephone encounter Kiran [facility] Start: 03-15-2022 End: 03-15-2022 ambulatory Phani Pruitt Other [employer] Other Start: 03-15-2022 Telephone encounter Phani Cleary [facility] Start: 03-14-2022 End: 03-14-2022 ambulatory Kiran Barksdale Other [employer] Other Start: 03-14-2022 Office outpatient vi sit 15 minutes Kiran Barksdale [facility] Gastroenter[facility] Start: 03-10-2022 End: 03-10-2022 ambulatory Phani Pruitt Other [employer] Other Start: 03-10-2022 Telephone encounter Phani Cleary [facility] Start: 03-01-2022 Encounter for other preprocedural examination Nettie Iqbal Other [employer] Other Start: 03-01-2022 Pre-procedure evaluation check Nettie Iqbal Other [employer] Other Start: 02-23-2022 End: 02-24-[address] KIEL DÍAZ . Facility:[facility] Start: 01-20-2022 End: 01-20-2022 Admission to same day surgery center DO Phani Pruitt Work Phone: [facility] Start: 01-20-2022 End: 01-20-2022 ambulatory DO Phani Pruitt Work Phone: [facility] Work Phone: Start: 01-06-2022 End: 01-07-[address] WAI SEVERINO Facility:[facility] Start: 01-02-2022 End: 01-02-2022 ambulatory Kiran Barksdale Other [employer] Other Start: 01-02-2022 Telephone encounter Kiran arnett [facility] Start: 12-09-2021 End: 12-09-2021 ambulatory Kiran Barksdale Other [employer] Other Start: 12-09-2021 Office outpatient vi sit 25 minutes Kiran Barksdale [facility] Start: 11-28-2021 End: 11-29-[address] PHANI PRUITT Facility:[facility] Start: 11-10-2021 End: 11-10-2021 ambulatory Kiran Barksdale Other [employer] Other Start: 11-10-2021 Telephone encounter Kiran arnett [facility] Start: 10-20-2021 End: 10-20-[address] PHANI PRUITT Facility:[facility] Start: 10-16-2021 End: 10-16-[address] PHANI PRUITT Facility:[facility] Start: 10-05-2021 End: 10-05-2021 ambulatory AINSLEY WATERMAN . Facility:H1 Start: 09-30-2021 ambulatory [facility] Facili ty:[facility]1 Start: 09-29-2021 End: 09-29-2021 ambulatory Janna Pina Other Virtual Web Other Start: 09-29-2021 Telephone encounter Janna Pina [facility] Start: 09-20-2021 Adult health examination Nettie Iqbal Other Virtual Web Other Start: 09-20-2021 Encounter for genera l adult medical examination without abnormal findings Nettie Iqbal Other [employer] Other Start: 09-05-2021 End: 09-05-2021 ambulatory Ambrose Torres Other Virtual Web Other Start: 09-05-2021 Office outpatient vi sit 15 minutes Ambrose Torres [facility] Start: 08-31-2021 End: 09-01-[address] PHANI PRUITT Facility:[facility]1 Start: 07-08-2021 End: 07-08-2021 ambulatory Janna Pina Other Virtual Web Other Start: 07-08-2021 Telephone encounter Janna Pina [facility] Start: 06-13-2021 End: 06-13-2021 ambulatory Janna Pina Other Virtual [facility] Other Start: 06-13-2021 Office outpatient vi sit 25 minutes Janna Pina [facility] Start: 04-13-2021 End: 04-13-2021 ambulatory Shira Cunningham Other Virtual Web Other Start: 04-13-2021 Office outpatient vi sit 15 minutes Shira Cunningham [facility] Start: 02-28-2021 End: 02-28-2021 ambulatory Janna Pina Other Virtual Web Other Start: 02-28-2021 Telephone encounter Janna Pina [facility] Start: 01-31-2021 End: 01-31-2021 ambulatory Janna Pina Other Virtual [employer] Other Start: 01-31-2021 Telephone encounter Janna Pina [facility] Start: 01-20-2021 End: 01-20-2021 ambulatory Janna Pina Other Virtual [facility] Other Start: 01-20-2021 Office outpatient vi sit 25 minutes Janna Pina [facility] Start: 01-20-2021 Telephone encounter [facility] Start: 12-07-2020 Office outpatient vi sit 25 minutes Janna Pina [facility] Procedures Date Procedure Procedure Detail Performing [...] 01-21-2032 Screening for malignant neoplasm of colon [facility] Start: 06-03-2030 RSV Vaccine (1 - 1-dose 75+ series) RSV Vaccine (1 - 1-dose 75+ series) [facility] Start: 06-12-2026 Diabetes Screening Diabetes Screening [facility] Start: 09-18-2024 Pneumococcal Vaccine: 50+ (3 of 3 - PCV20 or PCV21) Pneumococcal Vaccine: 50+ (3 of 3 - PCV20 or PCV21) [facility] Start: 06-25-2024 Patient referral [facility] Work Phone: Start: 03-21-2024 End: 03-21-2024 Patient encounter procedure [facility] - ENDO Comment on above: EUS (LINEAR) W/FNA Start: 03-12-2024 Advance Directive Discussion Advance Directive Discussion [facility] Start: 02-14-2024 End: 02-14-2024 Patient encounter procedure 02/14/2024 2:30 PM EST Appointment [facility] Endoscopy - ENDO [address] [place] [address] [place] [address] [place] [address] EUS (LINEAR) W/FNA [facility] - ENDO Comment on above: EUS (LINEAR) W/FNA Start: 02-14-2024 End: 02-14-2024 Patient encounter procedure 02/14/2024 12:30 PM EST Appointment [facility] Endoscopy - ENDO [id number] [place], [place] [id number] [place] [address] [place] [address] EUS (LINEAR) W/FNA [facility]oscopy - ENDO Comment on above: EUS (LINEAR) W/FNA Start: 01-16-2024 Urine culture [facility] Start: 01-16-2024 Bacteria identified in Urine by Culture Urine Culture [facility] Start: 12-19-2023 End: 12-19-2023 Patient encounter procedure 12/19/2023 11:40 AM EDT Office Visit Gastroenterology [address] [place] [address] [place] [address] [place] [address] discuss [facility] Gastroenterology Comment on above: discuss EUS Start: 11-26-2023 Patient referral [facility] Work Phone: Start: 11-11-2023 Covid-19 Vaccine ( season) Covid-19 Vaccine () [facility] Start: 11-11-2023 Covid-19 Vaccine ( season) Covid-19 Vaccine () [facility] Start: 11-11-2023 Influenza vaccination [facility] Start: 07-26-2023 Patient referral [facility] Work Phone: Start: 06-24-2023 Patient referral [facility] Work Phone: Start: 06-22-2023 Bacteria identified in Urine by Culture [facility] Start: 03-12-2023 Advance Directive Discussion Advance Directive Discussion [facility] Start: 03-12-2023 Annual Wellness Visit (Medicare Advantage) Annual Wellness Visit (Medicare Advantage) [facility] Start: 01-11-2023 Bacteria identified in Urine by Culture [facility] Start: 11-10-2022 COVID-19 Vaccine () COVID-19 Vaccine () [facility] Start: 01-20-2022 [facility] Start: 03-28-2021 COVID-19 Vaccine (4 - Pfizer series) COVID-19 Vaccine (4 - Pfizer series) [facility] Start: 09-18-2020 Pneumococcal Vaccine: 65+ (3 of 3 - PPSV23 or PCV20) Pneumococcal Vaccine: 65+ (3 of 3 - PPSV23 or PCV20) [facility] Start: 09-18-2020 Pneumococcal Vaccine: 65+ Years (3 - PPSV23 or PCV20) Pneumococcal Vaccine: 65+ Years (3 - PPSV23 or PCV20) [facility] Start: 06-03-2020 Pneumococcal 65+ years Vaccine (2 of 2 - PCV) Pneumococcal 65+ years Vaccine (2 of 2 - PCV) [facility] Start: 06-03-2020 Pneumococcal Vaccine: 65+ (1 of 1 - PCV) Pneumococcal Vaccine: 65+ (1 of 1 - PCV) [facility] Start: 06-03-2020 Pneumococcal Vaccine: 65+ Years (2 - PCV) Pneumococcal Vaccine: 65+ Years (2 - PCV) [facility] Start: 06-03-2020 Screening for osteoporosis Bone Density Screening [facility] Start: 12-13-2016 Shingles vaccine (2 of 3) Shingles vaccine (2 of 3) [facility] Start: 12-13-2016 Shingrix Vaccine (2 of 3) Shingrix Vaccine (2 of 3) [facility] Start: 12-13-2016 Zoster Vaccines (2 of 3) Zoster Vaccines (2 of 3) [facility] Start: 12-08-2016 DTaP/Tdap/Td Vaccines (1 - Tdap) DTaP/Tdap/Td Vaccines (1 - Tdap) [facility] Start: 12-08-2016 Urine microalbumin profile DTaP,Tdap,Td Vaccine (1 - Tdap) [facility] Start: 2015 Hepatitis B Vaccines (1 of 3 - Risk 3-dose series) Hepatitis B Vaccines (1 of 3 - Risk 3-dose series) [facility] Start: 2015 Respiratory Syncytial Virus (RSV) or age 60 yrs+ (1 - 1-dose 60+ series) Respiratory Syncytial Virus (RSV) or age 60 yrs+ (1 - 1-dose 60+ series) [facility] Start: 2015 RSV Vaccine (1 - Risk 60-74 years 1-dose series) RSV Vaccine (1 - Risk 60-74 years 1-dose series) [facility] Start: 06-03-2010 Screening for osteoporosis DEXA (modify frequency per FRAX score) [facility] Start: 06-03-2005 Screening for malignant neoplasm of breast Breast cancer screen [facility] Start: 06-03-2005 Shingrix Vaccine (1 of 2) Shingrix Vaccine (1 of 2) [facility] Start: 06-03-2000 Lipid panel Lipid Screening [facility] Start: 06-03-2000 Screening for malignant neoplasm of colon [facility] Start: 1995 Lipid panel Lipids [facility] Start: 1995 Screening for malignant neoplasm of breast [facility] Start: 06-03-1977 DTaP/Tdap/Td Vaccines (1 - Tdap) DTaP/Tdap/Td Vaccines (1 - Tdap) [facility] Start: 06-03-1974 DTaP/Tdap/Td vaccine (1 - Tdap) DTaP/Tdap/Td vaccine (1 - Tdap) [facility] Start: 06-03-1974 Hepatitis A Vaccines (1 of 2 - Risk 2-dose series) Hepatitis A Vaccines (1 of 2 - Risk 2-dose series) [facility] Start: 06-03-1974 Urine microalbumin profile DTaP,Tdap,Td Vaccine (1 - Tdap) [facility] Start: 06-03-1973 Anxiety Screening Anxiety Screening [facility] Start: 06-03-1973 Depression Screening Depression Screening [facility] Start: 06-03-1973 Diabetes mellitus screening Diabetes Screening [facility] Start: 06-03-1973 Hepatitis C screening [facility] Start: 1967 Depression Screen Depression Screen [facility] Start: 1955 Lipid panel Lipid Panel [facility] Start: 1955 Medicare Annual Wellness Visit Medicare Annual Wellness Visit (AWV) [facility] Start: 1955 Screening for malignant neoplasm of colon [facility] Start: 1955 Screening for osteoporosis Bone Density Scan 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 [facility] Work Phone: Comment on above: Release Upon Ordering for 1 Occurrences starting 03/21/2024 End: 12-18-2024 EGD - THERAPEUTIC, EUS, OR TUBE INTERVENTIONS EGD - THERAPEUTIC, EUS, OR TUBE INTERVENTIONS Endoscopy Routine Pancreatic cyst 1 Occurrences starting 12/19/2023 until 12/18/2024 [facility] Work Phone: Comment on above: 1 Occurrences starting 12/19/2023 until 12/18/2024 Megasphaera sp type 1 DNA [Presence] in Vaginal fluid by JOSH with probe detection [facility] Patient Education Colitis Hemorr hoids (DC) Mesalamine [facility] Work Phone: Patient referral [facility] Work Phone: End: 06-15-2023 Perq vertebroplasty uni/bi injx cervicothoracic [facility] Work Phone: Comment on above: 1 Occurrences starting 06/15/2023 until 06/15/2023 Study Interpretation of outside study MR transfer of outside films Imaging Routine 04/19/2023 11:05 AM EST [facility] Service Area Work Phone: US Lower extremity v ein - bilateral [facility] End: 06-15-2023 Vertebroplasty each addl cervicothor/lumbosacral [facility] [employer] [facility] Comment on above: 1 Occurrences starting 06/15/2023 until 06/15/2023 [facility] Immunizations Immunization Date Immunization Notes Care Provider Fa radha 12-22-2024 influenza, high dose seasonal, preservative-free Nettie Iqbal MD Work Phone: [facility] 12-25-2023 influenza, high dose seasonal, preservative-free MD Nettie Iqbal Work Phone: [facility] 10-24-2022 Flu vaccine, quadrivalent, high-dose, preservative free, age 65y+ (FLUZONE) Libby MILLER-C Work Phone: [facility] Work Phone: 10-24-2022 influenza virus vaccine, unspecified formulation Everett Dunlap MD Work Phone: [facility] 12-24-2021 influenza, high dose seasonal, preservative-free Libby MILLER-C Work Phone: [facility] Work Phone: 11-28-2021 influenza virus vaccine, split virus (incl. purified surface antigen) Nettie Iqbal Other [employer] Other 11-28-2021 influenza virus vaccine, unspecified formulation [facility] 11-28-2021 Influenza, Seasonal, Quadrivalent, Adjuvanted Libby MILLER-C Work Phone: [facility] Work Phone: 01-31-2021 COVID-19 mRNA, Comirnaty (Pfizer) DO [employer] Work Phone: [facility] 12-15-2020 influenza virus vaccine, split virus (incl. purified surface antigen) Nettie Iqbal Other [employer] Other 12-15-2020 influenza virus vaccine, unspecified formulation [facility] 12-15-2020 Seasonal trivalent influenza vaccine, adjuvanted, preservative free Libby Muñoz PA-C Work Phone: [facility] Work Phone: 07-30-2020 COVID-19 mRNA, Comirnaty (Pfizer) DO [employer] Work Phone: [facility] 07-09-2020 COVID-19 mRNA, Comirnaty (Pfizer) DO [employer] Work Phone: [facility] 12-26-2019 influenza virus vaccine, split virus (incl. purified surface antigen) Nettie Iqbal Other [place] [employer] Other 12-26-2019 influenza virus vaccine, unspecified formulation [facility] 09-19-2019 pneumococcal conjuga te vaccine, 13 valent Nettie Iqbal Other [facility] 01-29-2019 Influenza, injectabl e, Madin [place] Canine Kidney, preservative free, quadrivalent Libby Muñoz PA-C Work Phone: [facility] Work Phone: 01-07-2018 influenza virus vaccine, split virus (incl. purified surface antigen) Nettie Iqbal Other [employer] Other 01-07-2018 influenza virus vaccine, unspecified formulation [facility] 01-07-2018 Influenza, injectabl e, Madin Burkburnett Canine Kidney, quadrivalent with preservative Libby Muñoz PA-C Work Phone: [facility] Work Phone: 12-07-2016 influenza, seasonal, injectable Libby Muñoz PA-C Work Phone: [facility] Work Phone: 12-07-2016 tetanus and diphther ia toxoids, adsorbed, preservative free, for adult use (5 Lf of tetanus toxoid and 2 Lf of diphtheria toxoid) Nettie Iqbal Other [facility] 10-18-2016 zoster vaccine, live Libby Muñoz PA-C Work Phone: [facility] Work Phone: 04-24-2016 zoster vaccine, live Nettie Iqbal Other [facility] 12-10-2013 influenza, injectabl e, madin raza canine kidney, preservative free Libby Muñoz PA-C Work Phone: [facility] Work Phone: 01-18-2013 pneumococcal polysaccharide vaccine, 23 valent Nettie Iqbal Other [facility] 10-25-2011 pneumococcal polysaccharide vaccine, 23 valent Libby Muñoz PA-C Work Phone: [facility] Work Phone: 01-10-2005 pneumococcal polysaccharide vaccine, 23 valent Janna Pina Other [employer] Other 02-05-2001 pneumococcal polysaccharide vaccine, 23 valent Libby Muñoz PA-C Work Phone: [facility] Work Phone: Payers Date Payer Category Payer Private Health Insurance 2023 Medicare (Managed Care) PRASHANT ALBERTS [id number] 2022 Unknown SELF FUNDED SELF FUNDED 000 2022-Present [address] [place] [address] [id number] [id number] 2022 Medicare [id number] 1.13.647. [id number] 1959 Medicare [id number] 2.16.840.1.553129.19 1955 Unknown [id number] 2.16.840.1.990551.3.579. 2.593 1955 Unknown [id number] 2.16.840.1.016127.3.579. 2.593 1955 Unknown [id number] 2.16.840.1.210269.3.579. 2.593 1955 Unknown [id number] 2.16.840.1.167320.3.579. 2.593 1955 Unknown [id number] 2.16.840.1.776081.3.579. 2.593 1955 Unknown [id number] 2.16.840.1.594940.3.579. 2.593 1955 Unknown [id number] 2.16.840.1.036345.3.579. 2.593 1955 Unknown [id number] 2.16.840.1.149096.3.579. 2.593 1955 Unknown [id number] 2.16.840.1.825797.3.579. 2.593 1955 Unknown [id number] 2.16.840.1.561244.3.579. 2.593 1955 Unknown [id number] 2.16.840.1.660345.3.579. 2.593 1955 Unknown [id number] 2.16.840.1.684866.3.579. 2.593 1955 Unknown [id number] 2.16.840.1.127404.3.579. 2.593 1955 Unknown [id number] 2.16.840.1.621271.3.579. 2.593 1955 Unknown [id number] 2.16.840.1.208561.3.579. 2.593 1955 Unknown [id number] 2.16.840.1.949301.3.579. 2.593 1955 Unknown [id number] 2.16.840.1.102641.3.579. 2.727 1955 Unknown [id number] 2.16.840.1.135362.3.579. 2.1259 1955 Unknown [id number] 2.16.840.1.631529.3.579. 2.1259 1955 Unknown [id number] 2.16.840.1.402157.3.579. 2.1259 1955 Unknown [id number] 2.16.840.1.701527.3.579. 2.173 1955 Unknown [id number] 2.16.840.1.611768.3.579. 2.182 1955 Unknown [id number] 2.16.840.1.879277.3.579. 2.196 1955 Unknown [id number] 2.16.840.1.345361.3.579. 2.196 1955 Unknown [id number] 2.16.840.1.182228.3.579. 2.196 1955 Unknown [id number] 2.16.840.1.457608.3.579. 2.196 Medicare Medicare [id number] Medicare [id number] 2.16.840.1.277641.19 Self-pay Self Pay [id number] Social History Date Type Detail Facility Unknown if ever smoked [employer] Other Start: 06-15-2023 End: 12-19-2023 Sex Assigned At [facility] Start: 01-20-2022 End: 02-12-2022 Tobacco smoking status OHIS Ex-smoker (finding) [facility] Start: 1955 Sex Assigned At Female [facility] Tobacco smoking stat us NHIS Tobacco smoking consumption unknown [facility] Work Phone: Start: 12-17-2022 Gender identity Identifies as female gender (finding) [facility] Work Phone: Start: 12-17-2022 Sexual orientation Heterosexual (finding) [facility] Work Phone: Tobacco smoking status No Smokin g Status Entered [facility] Start: 08-11-2023 History of tobacco use Current smoker [facility] History of tobacco use Cigarette Smoker [facility] Start: 06-15-2023 End: 12-19-2023 History of Social function [facility] Start: 1955 [facility]igned [facility] Start: 12-19-2023 Tobacco smoking status NHIS Smokes tobacco daily [facility] Start: 12-19-2023 Tobacco use and exposure Smokeless tobacco non-user [facility] Start: 12-19-2023 Alcoholic beverage intake Ex-drinker (finding) [facility] National Score (1-10 0), lower number is lower risk 63 [facility] Start: 01-16-2024 End: 01-16-2024 Tobacco smoking status NHIS Current some day smoker [facility] Start: 03-28-2024 End: 07-06-2024 Sex Female (finding) [facility] Medical Equipment Procedure Code Equipment Code Equipment Origin al Text Equipment Identifier Dates Kyphoplasty Orthopaedic ceme nt, non-medicated [id number] FDA Start: 06-24-2019 Cement Bne 20 Gm Hi Visc Radiopaque Vertaplex Hv - [id number] Start: 06-15-2023 Comment on above: Description: Thoraci c 11 & thoracic 12 Goals Date Patient Goal Desired Activity /State Clinical Notes 12-07-2020 to 09-23-2024 Note Date & Type Note Facility 09-23-2024 Evaluation note Diagnosis Onset Date Resolution Anxiety acute September 23 1:03pm Chronic thoracic back pain acute September 23, 2024 1:03pm Pancreatic lesion acute September 232024 1:03pm Right femoral fracture acute Ju ly 2024 1:03pm Vertebral compression fracture acute September 23, 2024 1:03pm Chronic back pain chronic September 232024 1:03pm COPD (chronic obstructive pulmonary disease) chronic September 23, 2024 1:03pm Fibromyalgia chronic September 23, 2 025 1:03pm Dyspepsia acute October 01 1:09pm GERD (gastroesophageal reflux disease) acute October 01, 2024 1:09pm Opioid-induced constipation acute October 01, 2024 1:09pm Pancreatic lesion acute October 012024 1:09pm [facility] Work Phone: 1(102) 883-395607-15-2025 Evaluation note* Diagnosis Onset Date Resolution Status Admit Date Anxiety acute September 23 1:03pm Chronic thoracic back pain acute September 23, 2024 1:03pm Pancreatic lesion acute September 232024 1:03pm Right femoral fracture acute Ju ly 2024 1:03pm Vertebral compression fracture acute September 23, 2024 1:03pm Chronic back pain chronic September 232024 1:03pm COPD (chronic obstructive pulmonary disease) chronic September 23 1:03pm Fibromyalgia chronic September 23, 2 025 1:03pm Dyspepsia acute October 01 1:09pm [...] 22, 2024 1:02pm Fibromyalgia chronic December 1:02pm [facility] Work Phone: 1(549) 243-655405-13-2025 Telephone encounter Note* Telephone Encounter - Angela Monson RN - 07/22/2024 9:21 AM EDT Recommendations faxed to Dr. Erwin's office. Angela Monson RN [facility] Work Phone: 1(305) 473-572205-13-2025 Miscellaneous Notes* Telephone Encounter - Angela Monson [...] dysplasia. Recommend: MRCP in 6 months at [facility] facility. Send my opinion to Dr. Erwin. Everett Dunlap MD * Telephone Encounter - Angela Monson RN - 07/17/2024 2:[address] Dunlap, MRI images available in [facility] to review. Angela Monson RN * Telephone Encounter - Angela Monson RN - 07/16/2024 9:10 AM EDT Fannie called [facility]'s, they will push images to [facility]. Will monitor. Angela Monson RN * Telephone Encounter - Everett Dunlap MD - 07/15/2024 5:23 PM EDT Angela: I wanted her MRCP to be done at [facility] facility for my review. I need the images of MRCP (done at [facility]) uploaded to [facility] for my review prior [...] She is scheduled 02/14/2024 at 12:30 PM, [facility]. - EGD - THERAPEUTIC, EUS, OR [...] and my recommendations to Dr. Erwin at [facility]. Pt had repeat MRCP 07/05/2024 and [...] could also be considered. [facility] Telephone encounter Note * Telephone Encounter - [...] dysplasia. Recommend: MRCP in 6 months at [facility] facility. Send my opinion to Dr. Erwin. Everett Dunlap MD [facility]05-08-2025 Telephone encounter Note* Telephone Encounter - Angela Monson RN - 07/17/2024 2:[address] Dunlap, MRI images available in [facility] to review. Angela Monson RN [facility]05-07-2025 Telephone encounter Note* Telephone Encounter - Angela Monson RN - 07/16/2024 9:10 AM EDT Fannie called [facility]'s, they will push images to [facility]. Will monitor. Angela Monson RN [facility]05-06-2025 Telephone encounter Note* Telephone Encounter - Everett Dunlap MD - 07/15/2024 5:23 PM EDT Angela: I wanted her MRCP to be done at [facility] facility for my review. I need the images of MRCP (done at [facility]) uploaded to [facility] for my review prior to rendering anyopinion. Everett Dunlap MD [facility]05-06-2025 Telephone encounter Note* Telephone Encounter - Angela [...] Dr. Erwin. She used [facility] [place] [facility]. 2. Weight loss - ICD9: 783.21, [...] She is scheduled 02/14/2024 at 12:30 PM, [facility]. - EGD - THERAPEUTIC, EUS, OR [...] and my recommendations to Dr. Erwin at [facility]. Pt had repeat MRCP 07/05/2024 and [...] or small pseudocysts could also be considered. [facility]04-14-2025 Evaluation note* Diagnosis Onset Date Resolution Status Admit Date Anxiety acute June 23 1:01pm Chronic thoracic back pain acute June 23, 2024 1:01pm Pancreatic lesion acute June 102024 1:01pm Right femoral fracture acute Ap 2024 1:01pm Vertebral compression fracture acute June 23, 2024 1:01pm Chronic back pain chronic June 102024 1:01pm COPD (chronic obstructive pulmonary disease) chronic June 23, 2 025 1:01pm Fibromyalgia chronic June 23, 2024 1:01pm [facility] Work Phone: 1(309) 288-892101-20-2025 Telephone encounter Note* Telephone Encounter - Angela Monson RN - 03/31/2024 1:01 PM EST Pt notified of results and recommendations and verbalized understanding. She will follow up with Dr. Erwin. Reports and recommendations faxed to Dr. Erwin's office. Angela Monson RN [facility] Work Phone: [phone] Miscellaneous Notes* Telephone Encounter - Angela Monson [...] and my recommendations to Dr. Erwin at [facility]. Everett Dunlap MD documented in this encounterUniversity Hospitals [facility]01-20-2025 Telephone encounter Note * Telephone Encounter - [...] and my recommendations to Dr. Erwin at [facility]. Everett Dunlap MD [facility]01-17-2025 Evaluation note* Diagnosis Onset Date Resolution Status Admit Date Anxiety acute March 28, 2024 12:59pm Pancreatic lesion acute March 28, 2024 12:59pm Right femoral fracture acute Ja nuary 2024 12:59pm Sinusitis acute March 28, 2024 12:59pm Vertebral compression fracture acute March 28, 2024 12:59pm COPD (chronic obstructive pulmonary disease) chronic March 28, 2024 12:59pm Fibromyalgia chronic March 12:59pm [facility] Work Phone: [phone] 119-691201-10-2025 Nurse Note* Sofy Arriaga RN - 03/21/2024 [...] PROVIDED TO PATIENT: None REFERRAL (RECOMMENDATION): None [facility]01-10-2025 Nurse Note* Sofy Arriaga RN - 03/21/2024 11:30 AM EST PATIENT EDUCATION TOPIC: PROCEDURE / SURGERY: Post Procedure Teaching: Symptom Management PATIENT NAME: Afia Gutierres PATIENT LOCATION: Room/bed info not found READINESS TO LEARN COGNITIVE ABILITY: Alert and oriented MOTIVATION TO LEARN: Interested FAMILY SUPPORT: iggy, Dilma INSTRUCTION PROVIDED TO: Patient and Family [...] None REFERRAL (RECOMMENDATION): None documented in this encounterUniversity Hospitals Tripoint [facility] Center01-10-2025 History and physical note * Everett Dunlap [...] Comments Other Reaction(s): diarrhea, itching and rash Mwtkqur-Srj-Mxu Red* Unknown Other Reaction(s): Unknown Sulfamethoxazole-Tr* Unknown [...] DATE: March 21, 2024 TIME: 9:22 AM [facility]01-10-2025 History and physical note* Everett Dunlap MD [...] Comments Other Reaction(s): diarrhea, itching and rash Vslwqnn-Zbv-Jzg Red* Unknown Other Reaction(s): Unknown Sulfamethoxazole-Tr* Unknown [...] 2024 TIME: 9:22 AM documented in this encounterUniversity Hospitals [facility] Center01-09-2025 Telephone encounter Note * Telephone Encounter - [...] . If you need to reschedule call [phone]. [facility]01-09-2025 Miscellaneous Notes* Telephone Encounter - Carmen Meadows [...] or your prep instructions please call [phone]. If you need to reschedule call [phone]. documented in this encounterUniversity Hospitals Tripoint Medical Center12-10-2024 Telephone encounter Note * Telephone Encounter - Elham Reid II - 02/19/2024 1:09 PM EST Spoke with patient, rescheduled EUS to 03/21/2024 at [facility]. Elham Mendieta Adm Asst II [facility]12-10-2024 Miscellaneous Notes* Telephone Encounter - Elham Reid II - 02/19/2024 1:09 PM EST Spoke with patient, rescheduled EUS to 03/21/2024 at [facility]. 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 Please call pt back to reschedule. 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 Please call pt back to reschedule. [facility]12-04-2024 Telephone encounter Note* Telephone Encounter - Carmen [...] appointment or your prep instructions please call [phone]. If you need to reschedule call [phone]. [facility]12-04-2024 Miscellaneous Notes* Telephone Encounter - Carmen Meadows [...] appointment or your prep instructions please call [phone]. If you need to reschedule call [phone]. documented in this encounterUniversity Hospitals Tripoint Medical Center11-06-2024 Evaluation note* Diagnosis Onset Date Resolution Status Admit Date UTI (urinary tract infection) acute January 15 3:26pm Dysuria noneactive January 16, 2024 3:26pm 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 Previous work [...] Comments Other Reaction(s): diarrhea, itching and rash Tjkzqvw-Wrr-Uci Red* Unknown Other Reaction(s): Unknown Sulfamethoxazole-Tr* Unknown [...] She is scheduled 02/14/2024 at 12:30 PM, [facility]. - EGD - THERAPEUTIC, EUS, OR TUBE INTERVENTIONS 4. Family history of colon cancer in father - ICD9: V16.0, ICD10: Z80.0 5. Smoker - ICD9: 305.1, ICD10: F17.200 She smokes half pack per day for many years. 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 Previous work [...] Comments Other Reaction(s): diarrhea, itching and rash Qvevnoh-Qdn-Xpu Red* Unknown Other Reaction(s): Unknown Sulfamethoxazole-Tr* Unknown [...] She is scheduled 02/14/2024 at 12:30 PM, [facility]. - EGD - THERAPEUTIC, EUS, OR TUBE INTERVENTIONS 4. Family history of colon cancer in father - ICD9: V16.0, ICD10: Z80.0 5. Smoker - ICD9: 305.1, ICD10: F17.200 She smokes half pack per day for many years. Everett Dunlap MD, FACP documented in this encounterUniversity Hospitals Tripoint Medical Center09-24-2024 Telephone encounter Note * Telephone Encounter - Beth Summers - 12/04/2023 10:02 AM EDT Spoke with patient. Unable to get a ride on 12/04, scheduled 12/18 Thank you Beth Summers PSS [facility]09-24-2024 Miscellaneous Notes* Telephone Encounter - Beth Summers [...] Awaiting MRCP images to be uploaded to [employer]. Schedule follow-up visit in my pancreas clinic [...] are uncomplicated colonic diverticula. documented in this encounterUniversity Hospitals Tripoint Medical Center09-23-2024 Telephone encounter Note * Telephone Encounter - Angela Monson RN - 12/03/2023 3:56 PM EDT MRI images available for review. Schedulers, please call pt to schedule OV in pancreas clinic as indicated below. Dr. Dunlap has availability 12/05/2023. Thank you, Angela Monson RN [facility]09-22-2024 Telephone encounter Note* Telephone Encounter - Everett Dunlap MD - 12/02/2023 8:47 PM EDT Awaiting MRCP images to be uploaded to [employer]. Schedule follow-up visit in my pancreas clinic in the next 1-2 months. Likely the patient does not need EUS giving stable small pancreatic cyst measuring 6 mm. Everett Dunlap MD [facility]09-20-2024 Telephone encounter Note* Telephone Encounter - Angela [...] an IPMN. There are uncomplicated colonic diverticula. [facility]04-05-2024 History of Present illness Narrative* Carolina De [...] an active DRN-CC order on file at [facility]. Dr. Carbajal notified. 1222 Dr[address] Gonsalves notified pt ready to be seen. 1257 Dr. Villeda [facility], speaking to patient. Dr. Villeda aware of pt's wishes to remain DNR-CC. Also aware of bradycardia. 1300 Dr Gonsalves speaking to via phone. 1309 Dr. Villeda at [facility] for nerve block procedure. Time out performed. 1316 Nerve block performed 1324 Dr. Carbajal [facility] to discuss procedure. Risks/benefits discussed, all questions answered. 1330 Pt to Special procedures via cart for procedure. documented in this encounterB[facility] Discharge instructions* Discharge Instructions* April Souza [...] during normal business hours (Sunday-Sunday 8am-6pm) at [phone] and have them paged. You may also contact Dr. Carbajal office with any questions or concerns at [phone]. * Attachments The following attachments cannot be sent through Care Everywhere. * Vertebroplasty: Post-op (Georgian) * Sedation (Georgian) documented in this encounterBON [facility]01-31-2024 Evaluation note* Encounter Date Diagnosis Assessment Notes [...] surgical evaluation for kyphoplasty at [facility]. Dr Iqbal is out of the office. [facility] Other 12-28-2023 Evaluation note* Encounter Date Diagnosis [...] and start weight bearing exercises as tolerated [facility] Other 12-19-2023 Evaluation note* Encounter Date Diagnosis [...] MRI of the lumbar spine at [facility]. Discussion of new versus old [...] T12 vertebra, initial encounter (ICD-10 - S22.080A) [facility] Other 11-20-2023 Evaluation note* Encounter Date Diagnosis Assessment Notes Treatment Notes Treatment Clinical Notes Jan, Pancreatic cyst (ICD-10 - K86.2) [facility] Other 11-17-2023 Evaluation note* Encounter Date Diagnosis Assessment Notes Treatment Notes Treatment Clinical Notes Jan, Pancreatic cyst (ICD-10 - K86.2) [facility] Other 11-06-2023 Evaluation note* Encounter Date Diagnosis [...] sooner. Otherwise on his schedule on 02/01 [facility] Other 10-17-2023 Evaluation note* Encounter Date Diagnosis [...] pain is adequately controlled with present prescription. [facility] Other 10-16-2023 Evaluation note* Encounter Date Diagnosis Assessment Notes Treatment Notes Treatment Clinical Notes Dec, Moderate episode of recurrent major depressive disorder (ICD-10 - F33.1) [facility] Other 10-09-2023 History of Present illness Narrative* [...] but prefers to have this done in [place] with Dr. Barksdale as she is unable to drive to a facility. Libby Muñoz PA-C documented in this encounterMer[facility] Work Phone: [phone] Evaluation note* Encounter Date Diagnosis Assessment Notes [...] and change to a portable oxygen concentrator. [facility] Other 09-14-2023 Evaluation note* Encounter Date Diagnosis [...] POC setting at 2 via nasal cannula. [employer] [facility] Other 09-11-2023 Evaluation note* Encounter Date Diagnosis Assessment Notes Treatment Notes Treatment Clinical Notes Nov, Dysuria (ICD-10 - R30.0) [facility] Other 08-24-2023 Evaluation note* Encounter Date Diagnosis Assessment Notes Treatment Notes Treatment Clinical Notes Oct, Fibromyalgia (ICD-10 - M79.7) [facility] Other 08-15-2023 Evaluation note* Encounter Date Diagnosis [...] Reviewed OARRS report. Continue meds and treatment. [facility] Other 07-27-2023 Evaluation note* Encounter Date Diagnosis Assessment Notes Treatment Notes Treatment Clinical Notes Sep, Diverticular disease (ICD-10 - K57.90) [facility] Other 07-26-2023 Evaluation note* Encounter Date Diagnosis Assessment Notes Treatment Notes Treatment Clinical Notes Sep, Lumbar spondylosis (ICD-10 - M47.816) [facility] Other 06-29-2023 Evaluation note* Encounter Date Diagnosis Assessment Notes Treatment Notes Treatment Clinical Notes Aug, Diverticular disease (ICD-10 - K57.90) Patient reports constipation and she will try linzess 290 mg prescription sent to pharmacy RTO 3 months Aug, GERD (gastroesophageal reflux disease) (ICD-10 - K21.9) Aug, Pancreas cyst (ICD-10 - K86.2) Patient is to have an MRCP dont at [facility] ordered today [facility] Other 06-28-2023 Evaluation note* Encounter Date Diagnosis Assessment Notes Treatment Notes Treatment Clinical Notes Aug, Lumbar spondylosis (ICD-10 - M47.816) [facility] Other 06-20-2023 Evaluation note* Encounter Date Diagnosis [...] into present EMR for review by her competency evaluated nurse aide next week. [facility] Other 06-16-2023 Evaluation note* Encounter Date Diagnosis Assessment Notes Treatment Notes Treatment Clinical Notes Aug, COPD exacerbation (ICD-10 - J44.1) Discussed with patient exam and history is consistent with COPD exacerbation. Rapid COVID is negative in office. Will cover with azithromycin and prednisone burst. Continue maintenance and rescue inhaler as needed. May use Mucinex DM [id number]. Patient has follow-up with PCP next week. Advised to follow-up sooner if any rapidly increasing shortness of breath, wheezing, signs of respiratory distress. Patient verbalized understanding of treatment plan. Patient reports history of frequent yeast infections with antibiotic use. Requesting Diflucan. Dose sent. Advised should only take it develop symptoms. Patient verbalized understanding. Aug, Congestion of nasal sinus (ICD-10 - R09.81) [facility] Other 06-01-2023 Evaluation note* Encounter Date Diagnosis Assessment Notes Treatment Notes Treatment Clinical Notes Aug, Lumbar spondylosis (ICD-10 - M47.816) [facility] Other 05-25-2023 Evaluation note* Encounter Date Diagnosis Assessment Notes Treatment Notes Treatment Clinical Notes July, Chronic obstructive pulmonary disease with (acute) lower respiratory infection (ICD-10 - J44.0) Discussed prednisone could help her hip pain and her wheezing for a short term treatment July, Insomnia, idiopathic (ICD-10 - F51.01) d/c remeron start trazodone. f/u in 1 month [facility] Other 05-03-2023 Evaluation note* Encounter Date Diagnosis Assessment Notes Treatment Notes Treatment Clinical Notes July, Lumbar spondylosis (ICD-10 - M47.816) [facility] Other 04-11-2023 Evaluation note* Encounter Date Diagnosis [...] send in medication if needed. Follow-up with CATEGORY DIRECTOR if no improvement of symptoms. Immediate evaluation in ER for signs/symptoms as discussed. Patient verbalizes understanding and is agreeable with treatment plan. [facility] Other 04-07-2023 Evaluation note* Encounter Date Diagnosis [...] and ulcerations. May be worsened by Lyrica [facility] Other 03-20-2023 Evaluation note* Encounter Date Diagnosis Assessment Notes Treatment Notes Treatment Clinical Notes May, Mucopurulent chronic bronchitis (ICD-10 - J41.1) Continue mucinex as needed. AGNELICA as needed May, Petechial rash (ICD-10 - [...] - R53.83) Healthy diet and keep active [facility] Other 03-03-2023 Evaluation note* Encounter Date Diagnosis Assessment Notes Treatment Notes Treatment Clinical Notes May, Lumbar spondylosis (ICD-10 - M47.816) [facility] Other 03-03-2023 Evaluation note* Encounter Date Diagnosis Assessment Notes Treatment Notes Treatment Clinical Notes May, Acute bronchitis due to other specified organisms (ICD-10 - J20.8) [facility] Other 02-28-2023 Evaluation note* Encounter Date Diagnosis [...] hours as needed for cough and dyspnea [facility] Other 02-28-2023 Evaluation note* Encounter Date Diagnosis Assessment Notes Treatment Notes Treatment Clinical Notes Apr, Chronic obstructive pulmonary disease with (acute) exacerbation (ICD-10 - J44.1) [facility] Other 02-02-2023 Evaluation note* Encounter Date Diagnosis Assessment Notes Treatment Notes Treatment Clinical Notes Apr, Lumbar spondylosis (ICD-10 - M47.816) [facility] Other 01-04-2023 Evaluation note* Encounter Date Diagnosis Assessment Notes Treatment Notes Treatment Clinical Notes Mar, Lumbar spondylosis (ICD-10 - M47.816) [facility] Other 01-03-2023 Evaluation note* Encounter Date Diagnosis Assessment Notes Treatment Notes Treatment Clinical Notes Mar, Diverticular disease (ICD-10 - K57.90) continue dicyclomine as needed. Mar, Alternating constipation and diarrhea (ICD-10 - R19.8) start metamucil gummies every day. Mar, GERD (gastroesophageal reflux disease) (ICD-10 - K21.9) patient to continue pantoprazole [facility] Other 11-11-2022 Procedure [facility]09-30-2022 Evaluation note* Encounter Date Diagnosis Assessment Notes Treatment Notes Treatment Clinical Notes Nov, Lower abdominal pain (ICD-10 - R10.30) PATIENT STATES THAT SHE DOES HAVE BURNING. Nov, Constipation (ICD-10 - K59.00) PATIENT STATES MOVING BOWELS EVERYDAY PATIENT DID REDUCE THE DICYCLOMINE TO NEEDED WHN CONSTIPATED THIS MADE IT WORSE PATIENT IS ADVISED WE WILL START MOVANTIK [facility] Other 09-01-2022 Evaluation note* Encounter Date Diagnosis Assessment Notes Treatment Notes Treatment Clinical Notes Nov, GERD (gastroesophageal reflux disease) (ICD-10 - K21.9) [facility] Other 08-11-2022 NotePROCEDURE: XR HIP RT 2 3V W PELVIS COMPARISON: None. HISTORY: Injury of right hip region FINDINGS: BONES:No acute fracture or dislocation. Minimal degenerative osteoarthropathy of the hips SOFT TISSUES:Negative. No visible soft tissue swelling. EFFUSION:None visible. OTHER: Negative. IMPRESSION: No acute abnormality Electronically authenticated by: JANNA LAWTON Date: 2021-10-20 12:03[facility]06-27-2022 Evaluation note* Encounter Date Diagnosis [...] although I think that is less likely. [facility] Other 04-04-2022 Evaluation note* Encounter Date Diagnosis Assessment Notes Treatment Notes Treatment Clinical Notes Jun, LUQ abdominal pain (ICD-10 - R10.12) CONTINUE DICYCLOMINE 20 MG TID RTO 6-8 WEEKS Jun, Irritable bowel syndrome with diarrhea (ICD-10 - K58.0) Jun, Bloating (ICD-10 - R14.0) Jun, GERD (gastroesophageal reflux disease) (ICD-10 - K21.9) STOP OMEPRAZOLE [facility] Other 02-02-2022 Evaluation note* Encounter Date Diagnosis [...] Patient care instructions given in writting by [facility] document. [facility] Other 11-11-2021 Evaluation note* Encounter Date Diagnosis Assessment Notes Treatment Notes Treatment Clinical Notes Jan, Irritable bowel syndrome with diarrhea (ICD-10 - K58.0) OBTAIN COLONOSCOPY FROM [facility] [place] 06/2019Jan, Lower abdominal pain (ICD-10 - R10.30) STOP DICYCLOMINE PT TO REPORT PROGRESS Jan, Bloating (ICD-10 - R14.0) Jan, Rectal burning (ICD-10 - K62.89) [facility] Other 09-28-2021 Evaluation note* Encounter Date Diagnosis Assessment Notes Treatment Notes Treatment Clinical Notes Nov, Irritable bowel syndrome with diarrhea (ICD-10 - K58.0) Nov, Generalized abdominal pain (ICD-10 - R10.84) Nov, Abdominal bloating (ICD-10 - R14.0) Nov, History of ischemic colitis (ICD-10 - Z87.19) Nov, Other CT ABD /PELVIS START DICYCLOMINE 20 MG TID ROT 4-6 WEEKS Diarrhea material was printed [facility] Other Evaluation + Plan note No data available for this section [facility] evaluation noteNo InformationNortAIRSIS Other Evaluation noteNo assessment information available [facility] Work Phone: Evaluation note* Diagnosis 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 documented in this encounter [facility] Work Phone: Evaluation note* Diagnosis Compression fracture of T12 vertebra with delayed healing, subsequent encounter Other osteoporosis with current pathological fracture, vertebra(e), initial encounter for fracture (HCC) documented in this encounter [facility] note* Diagnosis Onset Date Resolution Status Anxiety acute Right femoral fracture acute UTI (urinary tract infection) acute Vertebral compression fracture acute Fibromyalgia chronic Anxiety acute COPD exacerbation resolved [facility] Work Phone: Evaluation note* Diagnosis Onset Date Resolution Status Anxiety acute COPD exacerbation resolved Fibromyalgia chronic [facility] Work Phone: Evaluation note* Diagnosis Onset Date Resolution Status COPD exacerbation resolved Anxiety acute Right femoral fracture acute UTI (urinary tract infection) acute Vertebral compression fracture acute Fibromyalgia chronic [facility] Work Phone: Evaluation note* Diagnosis Onset Date Resolution Status Anxiety acute Right femoral fracture acute UTI (urinary tract infection) acute Vertebral compression fracture acute Fibromyalgia chronic Constipation acute GERD (gastroesophageal reflux disease) acute Pancreatic lesion acute [facility] Work Phone: Evaluation note* Diagnosis Pancreatic cyst- Primary Cyst and pseudocyst of pancreas documented in this encounter [facility] note* Diagnosis Chronic LUQ pain- Primary Abdominal pain, left upper quadrant Weight loss Loss of weight Pancreatic cyst Cyst and pseudocyst of pancreas Family history of colon cancer in father Smoker Tobacco use disorder documented in this encounter [facility] note* Diagnosis Onset Date Resolution Status Constipation acute GERD (gastroesophageal reflux disease) acute Pancreatic lesion acute [facility] Work Phone: Evaluation note* Diagnosis Onset Date Resolution Status Constipation acute GERD (gastroesophageal reflux disease) acute Pancreatic lesion acute Anxiety acute Pancreatic lesion acute Right femoral fracture acute Vertebral compression fracture acute COPD (chronic obstructive pulmonary disease) chronic Fibromyalgia chronic UTI (urinary tract infection) acute Dysuria noneactive [facility] Work Phone: Evaluation note* Diagnosis Pancreatic cyst Cyst and pseudocyst of pancreas documented in this encounter [facility] note* Diagnosis Pancreatic cyst (HCC)- Primary Cyst and pseudocyst of pancreas documented in this encounter [facility] general Narrative - Reported* Type Description [...] History Hep B 1972 Hospitalization History diverticulitis [facility] Other [facility] general Narrative - Reported* Type Description Date [...] chest pain in Jan 2022 - non [facility] Other History general Narrative - ReportedNocarondelet health [employer] Other [facility] general Narrative - Reported* Type Description Date [...] chest pain in Jan 2022 - non [facility] Other Hospital Discharge instructions Additional Instructions DISCHARGE [...] if you have any problems. -Office number [phone] Hospital Work Phone: Hospital Discharge instructions No data available for this section [facility] Hospital Discharge instructionsAmbulatory Orders* Referral to Gastroenterology Time Frame: 11/26/23, Location: None [facility] Work Phone: Progress note No data available for this section [facility] reason for referral (narrative)* Outpatient Procedure (Routine) - Pending Review Specialty Diagnoses / Procedures Referred By Costa macdonald Referred To Contact [facility] Diagnoses Pancreatic cyst Procedures EGD - THERAPEUTIC, EUS, OR TUBE INTERVENTIONS EGD INTRMURAL US NEEDLE ASPIRATE/[place] [address] [address] [place] [id number] [facility] [place] [address] [place] [address] Referral ID Status Reason Start Date Expiration Date Visits Requested Visits Authorized [id number] Pending Review Auto-Generat ed Referral 12/19/2023 12/18/2024 1 1 [facility] for referral (narrative)* Outpatient Procedure (Routine) - Closed Specialty Diagnoses / Procedures Referred By Contac t Referred To Contact Diagnoses Pancreatic cyst Procedures EGD - THERAPEUTIC, EUS, OR TUBE INTERVENTIONS EGD INTRMURAL US NEEDLE ASPIRATE/[place] [address] [place] [address] [facility] [address] [place] [address] Referral ID Status Reason Start Date Expiration Date V isits Requested Visits Authorized [id number] Closed Auto-Generate d Referral 02/14/2024 04/11/2024 1 1 [facility] for referral (narrative)No reason for referral information availableMer[facility] St[facility] Work Phone: Reason for visit NarrativePAIN MANAGEMENT REFERRAL UPDATENocarondelet health [employer] Other reason for visit Narrative* Outpatient Procedure (Routine) - Closed Specialty Diagnoses / Procedures Referred By Contac t Referred To Contact Diagnoses Pancreatic cyst Procedures EGD - THERAPEUTIC, EUS, OR TUBE INTERVENTIONS EGD INTRMURAL US NEEDLE ASPIRATE/[place] [address] [address] [place] [id number] [facility] [id number] [place] [address] Referral ID Status Reason Start Date Expiration Date V isits Requested Visits Authorized [id number] Closed Auto-Generate d Referral 02/14/2024 04/11/2024 1 1 [facility] Chief Complaint and Reason for Visit Chief Complaint Constipation, Abdomi nal Pain Chief Complaint Vaginal discharge Chief Complaint K86.2 Chief Complaint K86.2 dysuria Chief Complaint flank pain, dysuria Z87.81 Chief Complaint 4 Wk F/U Comp Fx Amb Documentation medication review Chief Complaint 4 Wk F/U Comp Fx Amb Documentation medication review Dysuria Chief Complaint Amb Documentation medication review R30.0 mental health issues [phone] head and chest cold since wed Reason for Visit Anxiety Right femoral fracture UTI (urinary tract infection) Vertebral compression fracture Fibromyalgia Anxiety COPD exacerbation Chief Complaint mental health issues [phone] head and chest cold since wed 3 [...] 1pm Chronic thoracic back pain June 23, 025 1:01pm Pancreatic lesion June 23, 2024 [...] Pancreatic lesion October 01, 2024 1:09 pm Chief Complaint Admit Date 3 month f/u [...] J marilynn 2024 1:09pm Opioid-induced constipation October 01 2 025 1:09pm Pancreatic lesion October 01, [...] 1:02pm Fibromyalgia December 22, 2024 1 :02pm Family History Relationship Condition Age at Onset [...] (HCC) Procedures IR VERTEBROPLASTY EACH ADDITIONAL Gabby Lo APRN - GLASSINE MACHINE TENDER [address] [address] Referral ID Status Reason Start Date Expiration Date Visits Re quested Visits Authorized [id number] Open 05/29/2023 05/28/2024 1 1 Specialty Diagnoses / Procedures Referred By Kathrynac t Referred To Contact Radiology Diagnoses Compression fracture of T12 vertebra with delayed healing, subsequent encounter Other osteoporosis with current pathological fracture, vertebra(e), initial encounter for fracture (HCC) Procedures IR VERTEBROPLASTY CERVICOTHORACIC Gabby Lo APRN - GLASSINE MACHINE TENDER [address] [address] Referral ID Status Reason Start Date Expiration Date Visits Re quested Visits Authorized [id number] Open 05/29/2023 05/28/2024 1 1 Reason evaluate and treat f or compression fracture Diagnosis 1 Compression fracture of T11 vertebra with delayed healing, subsequent encounter (S22.080G) Referral Organization [facility] urosurgery Referring Provider First Name Ana Referring Provider Last Name Kim Referring Provider Specialty Nurse Pract itioner Referred Organization [facility] Referred Address [address] [address] [place] Referred Provider Specialty Intervention al Radiology Referral Priority Routine Reason evaluate and treat Diagnosis 1 Compression fracture of T11 vertebra with delayed healing, subsequent encounter (S22.080G) Referral Organization [facility] urosurgery Referring Provider First Name Ana Referring Provider Last Name Kim Referring Provider Specialty Nurse Pract itioner [facility] [place] Referred Address [address] [place],[address] Referred Provider Specialty DME Referral Priority Routine Reason evaluate and kwasi at Diagnosis 1 Age-related osteopor osis with current pathological fracture, initial encounter (M80.00XA) Referral Organization [facility] Referring Provider First Name Ana Referring Provider Last Name Julio Referring Provider Specialty Nurse Pract itioner Referred Organization [facility] Pain Managemen t Referred Provider Christo Lobo Referred Address [address] ,[place], [place],[address] Referred Provider Specialty Pain Medicin e Referral Priority Routine General Notes Rebeca Pleitez 11:19:46 AM >received today, patient did just have MRI ordered but has already had CT of the Lumbar spine completed. Sending p2p at this time for scheduling Reason evaluate and kwasi at Diagnosis 1 Age-related osteopor osis with current pathological fracture, initial encounter (M80.00XA) Referral Organization [facility] Referring Provider First Name Ana Referring Provider Last Name Julio Referring Provider Specialty Nurse Pract itioner Referred Organization [facility] Referred Provider Rebeca Munguia Referred Address [address] [place],[address] Referred Provider Specialty Nurse Prackatarzyna tioner Referral Priority Routine General Notes Rebeca Pleitez 02:57:56 PM >received today, sending p2p at this time for scheduling Reason 01/23/23 Aleksey off ice - lumbar compression fracture - imaging at [facility] Diagnosis 1 Compression fracture of lumbar vertebra, unspecified lumbar vertebral level, initial encounter (S32.000A) Referral Organization [facility] Referring Provider First Name Nettie Referring Provider Last Name Kathy Referring Provider Specialty Family [facility] Referred Organization [facility] Referred Provider Robin Flannery Referred Address ,[place], [place],[address] Referred Provider Specialty Orthopedic S urgery Referral [...] - lumbar compression fracture - imaging at [facility] Diagnosis 1 Compression fracture of lumbar vertebra, unspecified lumbar vertebral level, initial encounter (S32.000A) Referral Organization [facility] marcell Referring Provider First Name Nettie Referring Provider Last Name Kathy Referring Provider Specialty Family [facility] Referred Organization [facility] Referred Provider Alma DeliaRobin bhatti Referred Address ,[place], [place],[address] Referred Provider Specialty Orthopedic S urgery Referral [...] (HCC) Procedures IR VERTEBROPLASTY CERVICOTHORACIC Gabby Lo, SUPERVISOR BACKFILLING - GLASSINE MACHINE TENDER [address] [address] Referral ID Status Reason Start Date Expiration Date Visits Re quested Visits Authorized [id number] Open 05/29/2023 05/28/2024 1 1 Reason Comments [...] Nettie Iqbal MD Attending Provider Active [facility]YSICIAN [facility] Primary Care Provider Active Team Status: Inactive Member Role Status Dates Nettie Iqbal MD Primary Care Provider Active ANUSHKA Felder Attending Provider Active Front Window Cashier Relationship Specialty Start Date End Date Nettie Iqbal MD [address] [facility] [phone] PCP - [facility] Medicine 06/13/23 Team Status: Inactive Member Role [...] November 26, 2023 End: November 26, 2023 Front Window Cashier Relationship Specialty Start Date End Date Nettie Iqbal MD [address] [facility] [place] [phone] PCP - [facility] Medicine 11/30/23 Front Window Cashier Relationship Specialty Start Date End Date Nettie Iqbal MD [address] [place] [facility] [place] [phone] PCP - [facility] Family Medicine 11/30/23 Team Status: Active Member [...] Attending Provider Active Start: January 03, 2024 Front Window Cashier Relationship Specialty Start Date End Date Nettie Iqbal MD [address] [facility] [phone] PCP - General Family Medicine 11/30/23 Front Window Cashier Relationship Specialty Start Date End Date Nettie Iqbal MD [address] [place] [facility] [place] [phone] PCP - General Family Medicine 11/30/23 Front Window Cashier Relationship Specialty Start Date End Date Nettie Iqbal MD [address] [place] [facility] [place] [phone] PCP - General Family Medicine 11/30/23 Front Window Cashier Relationship Specialty Start Date End Date Nettie Iqbal MD [address] [place] [facility] [place] [phone] PCP - General Family Medicine 11/30/23 Front Window Cashier Relationship Specialty Start Date End Date Nettie Iqbal MD [address] [place] [facility] [place] [phone] PCP - General Family Medicine 11/30/23 Team Status: Inactive Member Role Status Dates Nettie Iqbal MD Primary Care Provider Active Start: July 05, 2024 End: July 05, 2024 Horacio Erwin MD Attending Provider Active S tart: July 05, 2024 End: July 05, 2024 Front Window Cashier Relationship Specialty Start Date End Date Nettie Iqbal MD [address] [facility] [place] [phone] PCP - General Family Medicine 11/30/23 Team Status: Active Member Role Status Dates Everett Dunlap Specialist Active Nettie Iqbal MD Primary Care Provider Active Team Status: Active Member Role Status Dates Nettie Iqbal MD Primary Care Provider Active Start: August 21, 2024 Jaymie Duncan , APARTMENT COMMUNITY MANAGER-C Attending Provider Active St art: August 21, [...] October 01, 2024 End: October 01, 2024 Team Status: Inactive Member Role Status Dates Nettie Iqbal MD Primary Care Provider Active Start: December 22, 2024 End: December 22, 2024 Nettie Iqbal MD Attending Provider Active St art: December 22, 2024 End: December 22, 2024 Goals (unrecognized section and content) Goals may be documented in a n alternate section INFORMATION SOURCE (unrecogn ized section and content) DATE CREATED AUTHOR 08/18/2022 [facility] DATE CREATED AUTHOR AUTHOR'S ORGANIZ ATION 12/27/2022 [facility] DATE CREATED AUTHOR AUTHOR'S ORGANIZ ATION 01/29/2023 [facility] DATE CREATED AUTHOR AUTHOR'S ORGANIZ ATION 06/14/2023 [facility] DATE CREATED AUTHOR AUTHOR'S ORGANIZ ATION 06/19/2023 [facility] DATE CREATED AUTHOR AUTHOR'S ORGANIZ ATION 03/25/2024 [facility] DATE CREATED AUTHOR AUTHOR'S ORGANIZ ATION 07/06/2024 [facility] DATE CREATED AUTHOR AUTHOR'S ORGANIZ ATION 07/23/2024 [facility] DATE CREATED AUTHOR AUTHOR'S ORGANIZ ATION 11/23/2024 [facility] Source Comments (unrecognize d section and content) In the event this informatio n is protected by the Federal Confidentiality of Alcohol and Drug Abuse Patient Records regulations: The Federal rules restrict any use of the information to criminally investigate or prosecute any alcohol or drug abuse patient.[facility] the event this information is protected by the Federal Confidentiality of Alcohol and Drug Abuse Patient Records regulations: The Federal rules restrict any use of the information to criminally investigate or prosecute any alcohol or drug abuse patient.[facility] Center[facility] the event this information is protected by the Federal Confidentiality of Alcohol and Drug Abuse Patient Records regulations: The Federal rules restrict any use of the information to criminally investigate or prosecute any alcohol or drug abuse patient.[facility] Center[facility] the event this information is protected by the Federal Confidentiality of Alcohol and Drug Abuse Patient Records regulations: The Federal rules restrict any use of the information to criminally investigate or prosecute any alcohol or drug abuse patient.[facility] CenterIn the event this information is protected by the Federal Confidentiality of Alcohol and Drug Abuse Patient Records regulations: The Federal rules restrict any use of the information to criminally investigate or prosecute any alcohol or drug abuse patient.[facility] CenterIn the event this information is protected by the Federal Confidentiality of Alcohol and Drug Abuse Patient Records regulations: The Federal rules restrict any use of the information to criminally investigate or prosecute any alcohol or drug abuse patient.[facility] CenterIn the event this information is protected by the Federal Confidentiality of Alcohol and Drug Abuse Patient Records regulations: The Federal rules restrict any use of the information to criminally investigate or prosecute any alcohol or drug abuse patient.[facility] CenterIn the event this information is protected by the Federal Confidentiality of Alcohol and Drug Abuse Patient Records regulations: The Federal rules restrict any use of the information to criminally investigate or prosecute any alcohol or drug abuse patient.[facility] CenterIn the event this information is protected by the Federal Confidentiality of Alcohol and Drug Abuse Patient Records regulations: The Federal rules restrict any use of the information to criminally investigate or prosecute any alcohol or drug abuse patient.[facility] CenterIn the event this information is protected by the Federal Confidentiality of Alcohol and Drug Abuse Patient Records regulations: The Federal rules restrict any use of the information to criminally investigate or prosecute any alcohol or drug abuse patient.[facility] FOR RECORDS PERTAINING TO PATIENTS WHO [...] BE BASED ON THE PRIMARY CLINICAL RECORDS. [facility] [employer] [facility]. provides no warranty or guarantee of the accuracy or completeness of information in this document.
== END 2024-12-24 13:53 | disposition home or self-care (01) ==
LOC: US 13:53
PROVIDERS: PCP Family Medicine; Visit Provider Family Medicine
DX: R60.0 Localized edema (principal)
CPT/HCPCS: 93970

== ENCOUNTER 2025-03-07 12:00 | Emergency (ER) | payer MEDICARE, SELFPAY ==
--- OUTSIDE RECORDS SUMMARY | 2025-02-24 23:59 | XMS_ITS | Continuity of Care Document ---
Author Organization [facility] General Surgery [place] Address [address] [place] [address] [place] [address] Care Team Providers Care Pulpwood Dealer Name Role Phone FARIDANETTIE Primary Care Physician Encounter FT_AMBFIN [id number] Date(s): 02/24/25 - 02/24/25 [facility] [place] [address], [place], [place] [address] Discharge Disposition: Home (Routine DC) Attending Physician: Gil ALONSO MD Encounter Type: Clinic Allergies, Adverse Reactions, Alerts SubstanceCriticalitySeverityReactionReaction SeverityStatusibuprofenHivesActive ketorolacunknownActiveChantixMyalgiaActivestatinsHivesActiveReclastBone pain ActivecefdinirDiarrheaActiveBactrimHivesActive Immunizations Given and Recorded VaccineDateStatusRefusal PdjynrMGQO-WbM-8 (COVID-19) mRNA BNT-162b2 vax11/22/21 IsoshonnGHVQ-CrU-8 (COVID-19) mRNA BNT-162b2 vax5/21/22DnkszcliJCHG-OwY-4 (COVID-19) mRNA BNT-162b2 vax4/30/21Recorded Medications Albuterol (Eqv-ProAir HFA) 180 mcg, Inhalation, q6hr Shortness of breath or wheezing, Refill(s) 0 Start Date: 02/11/25 Status: Ordered Medication Dispense Status: Completed Total Allowed Fills: 1 Fills Dispensed: 0 albuterol 0.083% Inh [place] 3 mL 2.5 mg, 3 mL, NEB, q6hr Shortness of breath or wheezing, Refill(s) 0 Start Date: 02/11/25 Status: Ordered Medication Dispense Status: Completed Total Allowed Fills: 1 Fills Dispensed: 0 baclofen Refills(s) 0 Start Date: 02/11/25 Status: Ordered Medication Dispense Status: Completed Total Allowed Fills: 1 Fills Dispensed: 0 calcium-vitamin D Refill(s) 0 Start Date: 02/11/25 Status: Ordered Medication Dispense Status: Completed Total Allowed Fills: 1 Fills Dispensed: 0 Colace 100 mg Cap 100 mg = 1 cap(s), Oral, BID, PRN for constipation, Refills(s) 0 Start Date: 02/11/25 Status: Ordered Medication Dispense Status: Completed Total Allowed Fills: 1 Fills Dispensed: 0 dicyclomine 20 mg Tab 20 mg = 1 tab(s), Oral, QID, PRN abdominal pain, Refills(s) 0 Start Date: 02/11/25 Status: Ordered Medication Dispense Status: Completed Total Allowed Fills: 1 Fills Dispensed: 0 ibandronate 150 mg oral tablet 150 mg = 1 tab(s), Oral, qMonth, Refills(s) 0 Start Date: 02/11/25 Status: Ordered Medication Dispense Status: Completed Total Allowed Fills: 1 Fills Dispensed: 0 Lexapro Refills(s) 0 Start Date: 02/11/25 Status: Ordered Medication Dispense Status: Completed Total Allowed Fills: 1 Fills Dispensed: 0 Multi Vitamins oral tablet 1 tab(s), Oral, Daily, Refill(s) 0 Start Date: 02/11/25 Status: Ordered Medication Dispense Status: Completed Total Allowed Fills: 1 Fills Dispensed: 0 omeprazole 40 mg Cap-DR 40 mg = 1 cap(s), Oral, BID, Refills(s) 0 Start Date: 02/11/25 Status: Ordered Medication Dispense Status: Completed Total Allowed Fills: 1 Fills Dispensed: 0 Percocet 5 mg-325 mg oral tablet 1 tab(s), Oral, q8hr as needed for pain, Refill(s) 0 Start Date: 02/11/25 Status: Ordered Medication Dispense Status: Completed Total Allowed Fills: 1 Fills Dispensed: 0 pregabalin 150 mg Cap 150 mg = 1 cap(s), Oral, BID, Refills(s) 0 Start Date: 02/11/25 Status: Ordered Medication Dispense Status: Completed Total Allowed Fills: 1 Fills Dispensed: 0 traZODONE 100 mg Tab 200 mg = 2 tab(s), Oral, Once a day (at bedtime), Refills(s) 0 Start Date: 02/11/25 Status: Ordered Medication Dispense Status: Completed Total Allowed Fills: 1 Fills Dispensed: 0 Problem List ConditionConfirmationCourseEffective DatesStatusHealth StatusInformantAnxiety ConfirmedActiveCVA (cerebrovascular accident)ConfirmedActiveChronic obstructive pulmonary diseaseConfirmedActiveDepressionConfirmedActiveDiverticular disease ConfirmedActiveOpioid-induced constipationConfirmedActiveFibromyalgiaConfirmed ActiveGERD (gastroesophageal reflux disease)ConfirmedActiveHiatal hernia ConfirmedActiveHistory of hepatitis BConfirmedActiveIBS (irritable bowel syndrome)ConfirmedActiveOsteoporosisConfirmedActiveVitamin D deficiencyConfirmed Active Procedures ProcedureDateRelated DiagnosisBody SiteStatusCarpal tunnel releaseCompleted Cataract extractionCompletedHysterectomyCompletedThoracotomyCompleted Social History Social History TypeResponseBirth SexFemaleSex RepresentationFemale (finding) Patient Care team information Care Team Personnel Name: NETTIE IQBAL MD Position: FT Physician Member Role: Primary Care Physician Address: [address] [place] [address] Telecom: Care Team Related Persons Name: MAGGI GUTIERRES Name: MAGGI GUTIERRES Insurance Providers Guarantor name: TYRESE GUTIERRES Health Plan Information #: 1 Payer: [employer] Payer Identifier: [id number] Member Number: [id number] Group Number: [id number] Subscriber Identifier: [id number] Relationship to Subscriber: self Coverage Type: MEDICARE Coverage Verification Date: 25 Telecom: [phone] Address: [address]
[2025-03-07] VITALS (12 sets, daily range): BP systolic 105–118; BP diastolic 71–82; PULSE 53–73; TEMP 37; O2SAT 93–96; BMI 17.4
--- NOTE | 2025-03-07 12:18 | XR_ITS ---
The [address] [address] Patient Name: TYRESE GUTIERRES MRN: [id number] date: 1955 Sex: F Assigned Patient Location: ER Current Patient Location: ED.MAIN Accession/Order Number: [id number] Exam Date: 03/07/2025 12:27 Report Date: 03/07/2025 13:11 At the request of: KARIE ABBOTT DO Procedure: XR ribs LT min 3V w CXR1V Left Rib series with Single View Chest HISTORY: Left rib pain for one day COMPARISON: None MEDIASTINUM: Cardiac, mediastinal hilar silhouettes are within normal limits. LUNGS AND PLEURA: No acute lung process, pleural effusion or pneumothorax identified. Hyperinflation ACUTE FINDINGS: No displaced rib fracture identified. DEGENERATIVE CHANGE: Thoracic spondylosis. Similar scoliosis. Vertebral plasty change SOFT TISSUE: Unremarkable POSTOP CHANGES: Vertebral plasty. Left chest wall surgical clips XR/XR ribs LT min 3V w CXR1V IMPRESSION: No displaced rib fracture. No acute chest findings. Impression dictated by: Jason Stuart M.D. 03/07/2025 1:11 PM Dictation Location: UNI5 Electronically authenticated by: [id number] Y Date: 03/07/2025 13:11
--- NOTE | 2025-03-07 12:19 | ECG_ITS ---
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 Measurements Intervals [place] Rate: 68 P: 47 OR: 164 QRS: 63 QRSD: 72 T: 65 QT: 382 QTc: 399 Interpretive Statements 1100 Sinus rhythm 8102 Low QRS voltage in chest leads 9120 atypical ECG Compared to ECG 12/12/2023 15:09:38 No significant changes Electronically Signed On 03-08-2025 13:07:40 EST by SRINI AN M.D.
[2025-03-07 13:07] LABS: Hematocrit 44.6 % (36.0-48.0); Hemoglobin 14.2 g/dL (12.0-16.0); Immature Granulocytes Abs Auto 0.01 10^3/uL (0.00-0.03); Immature Granulocytes Pct Auto 0.2 % (0.0-0.5); Lymphocytes Absolute Auto 1.8 10^3/uL (1.2-3.8); Mean Corpuscular HGB Conc 31.8 g/dL (29.9-35.2); Mean Corpuscular Hemoglobin 32.1 pg (26.7-34.0); Mean Corpuscular Volume 100.7 fL (81.0-99.0); Platelet Count 143 10^3/uL (150-450); Red Blood Count 4.43 10^6/uL (4.20-5.40); White Blood Count 4.4 10^3/uL (4.0-11.0)
--- OUTSIDE RECORDS SUMMARY | 2025-03-07 13:13 | XMS_ITS | Clinical Summary ---
Author Organization [facility] Address [address], [address] [place] [address] Care Team Providers Care Investigations Director Name Role Phone Yolanda Chavez MD Primary Care Provider [phone] Allergies Active AllergyReactionsCriticalityNoted DateCommentsDuloxetine HclDiarrhea 05/15/20233409Qkfcnkkts18/23/2018Ketorolac MwqajnhcgsnzPyydzdkq04/05/2024Nsaids 05/15/2023 Other Reaction(s): diarrhea, itching and rash ParoxetineOther (See Comments)05/15/20235558Bffnbrvyg64/23/2018 Other Reaction(s): aseptic menengitis Atozedc1101/23/2023 Other Reaction(s): Unknown Sulfamethoxazole-Zohytvrypzqc29/14/8080Mylhwrmgzzw46/23/2018 Other Reaction(s): Unknown Medications MedicationSigDispense QuantityRefillsLast FilledStart DateEnd DateStatus HYDROcodone-acetaminophen (NORCO) 5-325 MG per tablet Take 1 tablet by mouth every 6 hours as needed for Pain.Active ALPRAZolam (XANAX) 0.5 MG tablet Take 1 tablet by mouth 3 times daily.Active escitalopram (LEXAPRO) 10 MG tablet 01/19/2023ctive traZODone (DESYREL) 50 MG tablet Take 1 tablet by mouth nightly as neededActive ibandronate (BONIVA) 150 MG tablet Take 1 tablet by mouth every 30 days05/02/2023ctive dicyclomine (BENTYL) 20 MG tablet Take 1 tablet by mouth every 6 hours04/14/2023ctive LINZESS 290 MCG CAPS capsule Take 1 capsule by mouth in the morning and at ttmkqva9901/08/2023ctive pantoprazole (PROTONIX) 40 MG tablet Take 1 tablet by mouth dailyActive pregabalin (LYRICA) 150 MG capsule Take 1 capsule by mouth 2 times daily.01/04/2023ctive albuterol (PROVENTIL) (2.5 MG/3ML) 0.083% nebulizer solution Take 3 mLs by auccohajdxky46/20/2023ctive fluticasone-salmeterol (ADVAIR) 100-50 MCG/ACT AEPB diskus inhaler Inhale 1 puff into the lungs in the morning and 1 puff in the evening.Active Social History Tobacco UseTypesPacks/DayYears UsedDateSmoking Tobacco: FormerCigarettes Tobacco Cessation:Counseling Given: Not Answered CommentsUnknownSex and Gender InformationValueDate RecordedSex Assigned at BirthNot on fileLegal XmqHqueuy29/11/2013 8:37 PM ESTGender IdentityNot on fileSexual OrientationNot on file Last Filed Vital Signs Vital SignReadingTime TakenCommentsBlood Vuwbrjrc432/6704 3:16 PM EDT Eyzkt2588 3:16 PM KCJTjaywmkoqyi37.8 ??C (98.3 ??F)06/15/2023 11:59 AM EDTRespiratory Pwyc256206/15/2023 3:16 PM EDTOxygen Tyissjvnpr25%06/15/2023 3:16 PM EDTInhaled Oxygen Concentration--Weight--Height--Body Mass Index-- Plan of Treatment Health MaintenanceDue DateLast DoneCommentsDepression Alpoxn8706/04/1967Hepatitis C tmsvuh1906/03/1973DTaP/Tdap/Td vaccine (1 - Tdap)06/03/1974Breast cancer screen 06/04/19953653Sqlvkb49/25/9410Idmjjjwidxq15/25/2001Colorectal Cancer Screen 06/03/2000FIT/FOBT: Average risk06/03/2000Fecal-DNA (Cologuard): Average risk 06/03/2000Sigmoidoscopy/CT rgmhtwsqdepv29/25/2001DEXA (modify frequency per FRAX score)06/03/2010Pneumococcal 50+ years Vaccine (2 of 2 - PCV)10/24/2012 10/25/2011, 01/10/2005, 02/05/2001Shingles vaccine (2 of 3), 04/24/2016Annual Wellness Visit (Medicare Advantage)03/12/2024Flu vaccine (#1) 508/, 12/24/2021, 11/28/2021, Additional history existsCOVID-19 Vaccine ( season)/, 07/30/2020, 07/09/2020 Respiratory Syncytial Virus (RSV) or age 60 yrs+ (1 - 1-dose 75+ series)06/03/2030Hepatitis A vaccineAged OutNo longer eligible based on patient's age to complete this topicHepatitis B vaccineAged OutNo longer eligible based on patient's age to complete this topicHib vaccineAged OutNo longer eligible based on patient's age to complete this topicMeningococcal (ACWY) vaccineAged OutNo longer eligible based on patient's age to complete this topicMeningococcal B vaccineAged OutNo longer eligible based on patient's age to complete this topicPolio vaccineAged OutNo longer eligible based on patient's age to complete this topic Medical Devices ImplantedTypeAreaManufacturerDevice IdentifierShelf Expiration DateModel / Serial / LotCement Bne 20 Gm Hi Visc Radiopaque Vertaplex Hv - [id number] Implanted:Qty: 1 on 06/15/2023 by Ricardo Carbajal MD at [id number] / / [id number]:Thoracic 11 & thoracic 12 Insurance Care Teams Team MemberRelationshipSpecialtyStart DateEnd Date Yolanda Chavez MD [address] [place] [address] PCP - GeneralFamily Medicine06/13/23
--- OUTSIDE RECORDS SUMMARY | 2025-03-07 13:13 | XMS_ITS | Clinical Summary ---
Author Organization [employer] [facility] Address [id number] [address] [place] [address] Care Team Providers Care Prepared Foods Production Team Member Name Role Phone Phani Anthony Primary Care Provider [phone] Allergies Active AllergyReactionsCriticalityNoted VqxuOgslwycmXqvtcqkyelc73/23/2018 Ohglmhkgl45/23/5585Faphgqnup89/23/2018 Medications MedicationSigDispense QuantityRefillsLast FilledStart DateEnd DateStatus HYDROcodone-acetaminophen (NORCO) 5-325 mg per tablet Take 1 tablet by mouth every 6 (six) hours as needed for pain.Active clopidogrel (PLAVIX) 75 mg tablet Take 75 mg by mouth daily.Active citalopram (CeleXA) 40 mg tablet Take 40 mg by mouth daily.Active ALPRAZolam (XANAX) 0.5 mg tablet Take 0.5 mg by mouth nightly as needed for anxiety.Active baclofen (LIORESAL) 10 mg tablet 10/30/2017Active calcitonin, salmon, (MIACALCIN) 200 unit/actuation nasal spray 10/30/2017Active alendronate (FOSAMAX) 70 mg tablet 11/07/2017Active Active Problems ProblemNoted DateDiagnosed DateAnxiety fakvnikk19/23/2018IBS (irritable bowel syndrome)10/01/20177412Vrxkqdyaugdq89/23/2018Lumbar uvrsbqazczi18/23/2018Depression 10/01/20179931Liipzxalq43/23/2018Impaired fasting lozbzpi6610/01/2017Hyperlipidemia 10/01/2017HBV (hepatitis B virus) ldoffgtzz62/23/2018CTS (carpal tunnel syndrome)10/01/2017CVD (cardiovascular disease)10/01/2017 Family History Medical HistoryRelationNameCommentsHeart diseaseBrotherColon cancerFatherHeart diseaseFatherHeart diseaseMotherRelationNameStatusCommentsBrotherFatherMother Social History Tobacco UseTypesPacks/DayYears UsedDateSmoking Tobacco: Every DayCigarettes Smokeless Tobacco: Never Tobacco Cessation:Counseling Given: Yes ChildcareAnswerDate TvmtyegoUyxafltxhLjvstbb12/13/2019EmploymentAnswerDate BhmcgleqEblgzqmxxtCghhbor14/13/2019Purpose - LifeAnswerDate RecordedPurpose and direction in qbisHcpvcsc30/11/2021CommentsUnknownSex and Gender InformationValueDate RecordedSex Assigned at BirthNot on fileLegal SexFemale 09/21/2017 10:45 AM EDTGender IdentityNot on fileSexual OrientationNot on file Last Filed Vital Signs Vital SignReadingTime TakenCommentsBlood Kcrmanpa862/8211/21/2017 10:21 AM EDT Pulse--Temperature--Respiratory Rate--Oxygen Saturation--Inhaled Oxygen Concentration--Cthuoz78.6 kg (133 lb 8 oz)11/21/2017 10:21 AM NEJVjqfcr112.5 cm (5' 2 )11/21/2017 10:21 AM EDTBody Mass Index24.42011/21/2017 10:21 AM EDT Plan of Treatment Health MaintenanceDue DateLast DoneCommentsDepression Smrzhahru59/25/1968Tobacco Cpxfowucu01/25/1968Adult BMI Emduyjite14/25/1974DTaP,Tdap and Td Vaccines (1 - Tdap)06/03/1974RSV ( or age 60+ yrs) (1 - Risk 50-74 years 1-dose series)06/03/2005Zoster (Shingles) Vaccine (1 of 2)06/03/2005Fall Risk Screening 06/03/20200163Nzlmblfxydi86Influenza Qafobxd4311/10/2024 Medical Devices Not on file Procedures Procedure NamePriorityDate/TimeAssociated DiagnosisCommentsCOLONOSCOPYRoutine 11/14/2017 8:53 AM EDTfrom Last 3 Months or Most Recently Relevant to Health Maintenance Insurance Care Teams Team MemberRelationshipSpecialtyStart DateEnd Date Phani Anthony DO [address] [place] [address] PCP - General09/21/17
--- OUTSIDE RECORDS SUMMARY | 2025-03-07 13:13 | XMS_ITS | Clinical Summary ---
Author Organization [facility] Address [address] [place] [address] Care Team Providers Care Forming Roll Operator Heavy Duty Name Role Phone Yolanda Chavez MD Primary Care Provider [phone] Allergies Active AllergyReactionsCriticalityNoted DateCommentsCefdinirOther: See Comments 06/22/20235495WnkvvodjuWdyzsiu04/12/2024Nsaids (Non-Steroidal Anti-Inflammatory Drug)Other: See Dpjmlxav09/05/2024 Other Reaction(s): diarrhea, itching and rash Vlzvuwf-Jme-Awj Reductase WsoeiueewwUrtmucc44/14/2023 Other Reaction(s): Unknown Sulfamethoxazole-DzzqxmggxlzdAkxiosa20/14/2023Zoledronic AcidOther: See Comments 06/22/2023 Medications MedicationSigDispense QuantityRefillsLast FilledStart DateEnd DateStatus albuterol (PROVENTIL) 2.5 mg /3 mL (0.083 %) nebulizer solution Every 6 hours12/29/2022ctive baclofen 20 mg tablet Take 20 mg by mouth every 6 hours as needed.11/22/2023ctive calcium carbonate (OS-BINA 500) 500 mg calcium (1,250 mg) tablet once daily.07/01/2019Active cholecalciferol (VITAMIN D3) 1,000 unit tab tablet 2,000 Units.07/01/2019Active dicyclomine (BENTYL) 20 mg tablet four times daily.04/14/2023ctive docusate sodium (COLACE) 100 mg capsule two times a day.07/01/2019Active escitalopram oxalate (LEXAPRO) 10 mg tablet one time only.01/19/2023ctive HYDROcodone-acetaminophen (NORCO) 5-325 mg per tablet .HTSJSHF4111/23/2023ctive hydrOXYzine pamoate (VISTARIL) 25 mg capsule Take by mouth.03/10/2022ctive Ibandronate 150 mg tablet .SJKDZGS8105/02/2023ctive linaCLOtide (LINZESS) 290 mcg capsule once daily.01/08/2023ctive omeprazole (PRILOSEC) 40 mg capsule once daily.11/26/2023ctive pregabalin (LYRICA) 150 mg capsule Take 150 mg by mouth two times a day.Active traZODone (DESYREL) 150 mg tablet Take 200 mg by mouth daily at bedtime.Active Active Problems No known active problems Family History Medical HistoryRelationCommentsCrohn's DiseaseFatherColon CancerNo Family HistoryRelationStatusCommentsFather Social History Tobacco UseTypesPacks/DayYears UsedDateSmoking Tobacco: Every DayCigarettes Smokeless Tobacco: Never Tobacco Cessation:Ready to Q uit: Not Asked; Counseling Given: Not Answered Alcohol UseStandard Drinks/WeekCommentsNot Currently0 (1 standard drink = 0.6 oz pure alcohol)Area Deprivation IndexAnswerDate RecordedNational Score (1-100), lower number is lower zydg543212/19/2023State Score (1-10), lower number is lower gclh874ata from: https://www.neighborhoodatlas.[facility].edu/. Last address used for idjfsktbfx[address]/19/2023CommentsUnknownSex and Gender InformationValueDate RecordedSex Assigned at BirthNot on fileLegal Sex Jksmye4711/30/2023 11:54 AM EDTGender IdentityNot on fileSexual OrientationNot on file Last Filed Vital Signs Vital SignReadingTime TakenCommentsBlood Ckqbxedj606/75003/21/2024 11:30 AM EST Uqqwk1972/10/2025 11:30 AM FDMZxxtjrgkueo93.2 ??C (97.2 ??F)03/21/2024 10:32 AM ESTRespiratory Eqkm344403/21/2024 11:30 AM ESTOxygen Xwmeuvgkay67%03/21/2024 11:30 AM ESTInhaled Oxygen Concentration--Zscuke29 kg (105 lb 13.1 oz)12/19/2023 11:14 AM EDTHeight--Body Mass Index-- Plan of Treatment Health MaintenanceDue DateLast DoneCommentsAnxiety Tzupaygrc26/25/1974Depression Jsuettnmk15/25/1974Hepatitis C Mxehwgjfr93/25/1974Mammogram Yobufhkmy08/25/1996 CT Xnwnbgbuwefb21/25/2001Cologuard (FIT-DNA)06/03/20005285Rqayskbqtxo07/25/2001 Colorectal Cancer Jvuvypsrx64/25/2001Fecal Occult Blood06/03/2000Lipid Screening 06/03/20008629Mrhyzprwvudhl68/25/2001RSV Vaccine (1 - Risk 50-74 years 1-dose series)06/03/2005DTaP,Tdap,Td Vaccine (1 - Tdap)Shingrix Vaccine (2 of 3), 04/24/2016Bone Density Tswkqtbsz64/25/2021 Advance Directive Unjoeroaxi11/01/2025Medicare Advantage Annual Wellness Visit 03/12/2024Pneumococcal Vaccine: 50+ (3 of 3 - PCV20 or PCV21)09/18/2024 09/19/2019, 01/18/2013, 10/25/2011, Additional history existsCovid-19 Vaccine ( - 2024- season), 07/30/2020, 07/09/2020Influenza Vaccine (#1), 10/24/2022, 12/24/2021, Additional history exists Diabetes Vvzdeurfc03 Insurance Care Teams Team MemberRelationshipSpecialtyStart DateEnd Date Yolanda Chavez MD [address] [place] [address] [facility]/30/[facility]
--- OUTSIDE RECORDS SUMMARY | 2025-03-07 13:13 | XMS_ITS | Clinical Summary ---
Author Organization [facility] Address [address] [place] [address] Phone Care Team Providers Care Stone Sandblaster Name Role Phone Unavailable Primary Care Provider Unavailabl e Immunizations ImmunizationAdministration DatesNext DueFlu vaccine, quadrivalent, high-dose, preservative free, age 65y+ (FLUZONE)10/24/2022Flu vaccine, quadrivalent, no egg protein, age 6 month or greater (FLUCELVAX)01/29/2019Flu vaccine, trivalent, preservative free, HIGH-DOSE, age 65y+ (Fluzone)12/24/2021Flu vaccine, trivalent, preservative free, no egg protein, age 6 months or greater (Flucelvax)12/10/2013Influenza, Seasonal, Quadrivalent, Npibhbfxcw42/19/2022 Influenza, injectable, MDCK, slsmibdcekmx07/29/2018Influenza, seasonal, iygnjvvjwk45/28/2017Influenza, trivalent, cobmyeekgv88/06/2021Pneumococcal polysaccharide vaccine, 23-valent, age 2 years and older (PNEUMOVAX 23) 10/25/2011,01/10/2005,02/05/2001Zoster, live10/18/2016,04/24/2016 Social History Tobacco UseTypesPacks/DayYears UsedDateSmoking Tobacco: Never Assessed CommentsUnknownSex and Gender InformationValueDate RecordedSex Assigned at Bktlfd4112/17/2022 8:31 PM EDTLegal BflVfaqqq71/ 11:41 AM EDTGender GmicqworZrehhl29/08/2023 8:31 PM EDTSexual QgljzaugcejIcsnkkjm33/08/2023 8:31 PM EDT Plan of Treatment Health MaintenanceDue DateLast DoneCommentsCT Paqbmikgprul04/25/1956FIT-DNA (Cologuard)1955FIT1955Lipid Panel1955Medicare Annual Wellness Visit (AWV)1955 1682Navnedpmgjofn24/25/1956Diabetes Ujaxlbonj87/25/1974 Hepatitis C Piypzutqy29/25/1974Hepatitis A Vaccines (1 of 2 - Risk 2-dose series)06/03/19742979Iwfxqeyml73/25/1996RSV High Risk: (Elderly (60+) or Population) (1 - Risk 50-74 years 1-dose series)06/03/2005Hepatitis B Vaccines (1 of 3 - Risk 3-dose series)2015MMR Vaccines (1 of 1 - Standard series) 11/15/2016DTaP/Tdap/Td Vaccines (1 - Tdap)Zoster Vaccines (2 of 3)/11/2016, 04/24/2016Bone Density Scan1Pneumococcal Vaccine (3 of 3 - PCV20 or PCV21)/12/2019, 01/18/2013, 10/25/2011, Additional history existsCOVID-19 Vaccine ( - season)2024 01/31/2021, 07/30/2020, 07/09/2020Influenza Vaccine (#1)/, 12/24/2021, 11/28/2021, Additional history vzouhaMtodlmaedpi15 Colorectal Cancer Ewiqlgyxo36/11/2032HIB VaccinesAged OutNo longer eligible based on patient's age to complete this topicHPV VaccinesAged OutNo longer eligible based on patient's age to complete this topicIPV VaccinesAged OutNo longer eligible based on patient's age to complete this topicMeningococcal VaccineAged OutNo longer eligible based on patient's age to complete this topic Rotavirus VaccinesAged OutNo longer eligible based on patient's age to complete this topic Insurance
--- OUTSIDE RECORDS SUMMARY | 2025-03-07 13:13 | XMS_ITS | CCD ---
Author Organization [facility] Care Team Providers Care Die Engraver Name Role Phone Janna Pina Unavailable Shira Cunningham Unavailable Ambrose Torres Unavailable Kiran Barksdale Unavailable DO Phani Pruitt Primary Care Provider MD Kiran Barksdale Attending Provider Phani Pruitt Unavailable SHEILA Sanford Attending Provider [phone] Vanessa Sanford Unavailable OANH .SANTA Admitting Unavailable [...] Provider MD Nettie Iqbal Primary Care Provider [phone] MD Nettie Iqbal Attending Provider [phone] Unavailable Primary Care Provider UnavailPHANI [place] Primary Care Physician [phone] [place] RAMOS Attending Unavailable NO FAMILY, PHYSICIAN Primary Care Provider Unava ilable ROBIN FLANNERY Referring Unavailable ROBIN FLANNERY Referring Unavailable ROBIN FLANNERY Attending Unavailable MD Nettie Iqbal Attending Provider MD Nettie Iqbal Primary Care Provider [phone] ANUSHKA iKm Attending Provider Ana Kim Unavailable GABBY LO [...] Primary Care Unavailable Jaymie Garnica Attending Provider [phone] Nettie Iqbal MD Attending Provider Obed Lima APRN Attending Provider Ramos ROOT, Vickey Winkler Attending Unavailable Gianíbal ROOT, Vickey Winkler Attending Unavailable Ramos ROOT, Vickey Winkler Attending Unavailable Ramos ROOT, Vickey Winkler Attending Unavailable Nettie Iqbal MD Primary Care Provider [phone] Allergies Allergy ClassificationReported Allergen(s)Allergy TypeDate of OnsetReaction(s) Facility (20 sources)cefdinir; Translations: [CEFDINIR]Drug Ckmjcfo71-77-5630Nwhmx: See [facility] (20 sources)KetorolacDrug Ncljdsv96-78-9286Pimmfuc, [facility] (20 sources)vareniclineDrug Xzxcnue97-69-6044Mfvqkgy, [facility] PainMi[facility] ([facility] sources)vioxx, antiinflammatoriesPropensity to adverse bvokopjzl31-02-3386 Unknown, [facility] (20 sources)Statins SupportDrug allergyUnkWesterly Hospital [employer] Other (9 sources)varenicline; Translations: [Chantix][facility]rug AllergyUnkGre[facility] (3 sources)KetorolacDrug Sbrptgn84-40-5962PqkhslmqDcdie [facility] Other (20 sources)Sulfamethoxazole / TrimethoprimDrug Xqrduhc65-78-4168ZjzppccUcccu Coast [employer] Other (20 sources)rofecoxibDrug Bldcqwp10-12-4975XmhdcvajThxplbdlyWright-Pat[facility] (20 sources)NSAIDS (Non-Steroidal Anti-InflammaAllergy to immeyfgub09-41-[address] [facility] (20 sources)Itjtocs-LZU-EiW Reductase InhibitorAllergy to vhjxsyxzb08-42-[address] [facility] (2 sources)black walnut pollen extract; Translations: [PHYJNZN-INU-SYE REDUCTASE INHIBITORS]Drug Yvitghd78-43-4042Pfk [facility] (1 source)cefdinirDrug AllergyThe [facility] (1 source)KetorolacDrug AllergyThe [facility] (3 sources)NSAIDs; Translations: [NSAIDS (NON-STEROIDAL ANTI-INFLAMMATORY DRUG)] Drug allergy (disorder)89-09-9882Hbgxj: See CommentsThe [facility] (1 source)rofecoxibDrug AllergyThe [facility] (1 source)Sulfamethoxazole / TrimethoprimDrug AllergyThe [facility] (20 sources)Ibuprofen; Translations: [IBUPROFEN]Drug Mhkikje36-76-6570KchofcnSelect [facility] Specialty [facility] (20 sources)SimvastatinDrug Qjlyprp71-41-2368YeptbriTriHealth [facility]ull[facility] (20 sources)zoledronic acid; Translations: [ZOLEDRONIC ACID]Drug Allergy 46-87-5871Iekiz: See [facility] (5 sources)Allergies ReconciledPropensity to adverse reactionsTwo Rivers Psychiatric Hospital [facility] Other (20 sources)Toradol *ANALGESICS - ANTI-INFLAMMATORY*Propensity to adverse -52-0081KwbhzxaWclkh [facility] Other (20 sources)CholesterolDrug -74-5784RkzaqhaFnlbu [place] Other (20 sources)ANTI INFLAMMATORYPropensity to adverse ulglnfyke15-71-5697Lypjetr [place] [facility] Other (5 sources)patient allergy list reviewed by nurse or physiciaPropensity to adverse niveifmbd46-74-6412Elsqdxl:[facility] Other (1 source)DULoxetineDrug Xdrdplk30-31-9919PjiqeyioQKG [employer] [facility] (10 sources)HMG-CoA reductase inhibitorPropensity to adverse reactions to drug 95-01-3727ZpmhmlrAED [employer] Twitter Dashboard (9 sources)Non-steroidal anti-inflammatory agentPropensity to adverse reactions to jpoi18-41-5521Qbpbs: See CommentsBON [employer] Twitter Dashboard (1 source)PARoxetineDrug Xqogbvm24-45-1717Jturi (See Comments)[facility] (15 sources)MannitolDrug Rlgihzt77-21-1151Jufpdup:[facility] (15 sources)SulfamethoxazoleDrug Rrfkkxy19-10-9855QwpozIaxqbfphtOhioHealth [facility] Hospital (15 sources)TrimethoprimDrug Ylgwkgj80-91-3210StbooFdhduhorbOhioHealth Dublin Methodist Hospital (15 sources)water for injection,sterileAllergy to qrdnwieku81-34-7691 Comment:[facility] (15 sources)Toradol *ANALGESICS - ANTI-INFAllergy to fncixizyn99-98-5531UmhrhOhiohealth Van Wert HospitalComment on above:Free Text Allergy: Toradol *ANALGESICS - ANTI-INFLAMMATORY*; Onset Date: 06/29/2014 (13 sources)IbadronateDrug Lvicqjc91-53-6143zdsmMcKitrick Hospital (1 source)Sulfamethoxazole / Trimethoprim; Translations: [SULFAMETHOXAZOLE-TRIMETHOPRIM]Drug Xporlku64-31-2452[facility] Other [place] [facility] Medications Current Medications MedicationDrug Class(es)DatesSig (Normalized)Sig (Original)[id number] 200 actuat albuterol 0.09 mg/actuat metered dose inhaler (20 sources)beta2-Adrenergic AgonistStart: 78-93-8948epnr 1 puff(s) by inhalation every four to six hours as neededAlbuterol Sulfate 90 mcg/actuation HFA aerosol inhaler Active 2 PUFF INHALATION EVERY 4-6 HOURS as needed for bronchospasm 6.7 December 25, 2023 12:00am Complies with drug therapyStart: 19-25-4288mmsl 1 puff(s) by inhalation every four to six hoursAlbuterol Sulfate Active 2 PUFF INHALATION EVERY 4-6 HOURS 6.7 December 24, 2023 11:00pmStart: 30-59-4467lgzo 1 puff(s) by inhalation every four to six hoursAlbuterol Sulfate Active 2 PUFF INHALATION EVERY 4-6 HOURS 6.7 December 25, 2023 12:00amStart: 34-65-2600haim 3 mL by inhalation every six hours as neededAlbuterol Sulfate 2.5 mg /3 mL (0.083 %) solution for nebulization Active 3 ML INHALATION Every 6 ho urs August 11, 2023 12:00am FreeTextSi mL as needed Inhalation every 6 hrs; Note: Source Status:Taking; Refills: 2; Qty: 360 ml; Provider: Kathy De Jesus Complies with drug therapyStart: 66-57-8870iiwghcjbg (PROVENTIL) 2.5 mg /3 mL (0.083 %) nebulizer solution Every 6 hours 12/29/2022 ActiveStart: 12-29-2022 albuterol (PROVENTIL) (2.5 MG/3ML) 0.083% nebulizer solution Take 3 mLs by nebulization 0 12/29/2022 ActiveStart: 04-19-2019 End: 80-91-1220Xdzujqmxt Sulfate (Ventolin Hfa) 90 mcg/actuation HFA aerosol inhaler Discontinued 2 INH INHALATIONevery 6 to 8 hours as needed for shortness of breath or wheezing 18 April 19, 2019 1:00am 2019 8:26amStart: 04-18-2019 End: 50-29-4634xroj 1 puff(s) by inhalation four times daily as needed for wheezingAlbuterol Sulfate 90 mcg/actuation HFA aerosol inhaler Discontinued 1 PUFF INHALATION Four times daily as needed for Shortness Of Breath Or Wheezing April 18, 2019 1:00am July 02, 2019 8:26amAlbuterol Sulfate (2.5 MG/3ML) 0.083% 3 mL as needed Inhalation every 6 hrs for 30 days Activetake 1 puff(s) by inhalation every four hours as neededVentolin HFA 108 (90 Base) MCG/ACT 1 puff as needed Inhalation every 4 hrs ActiveProAir HFA 108 (90 Base) MCG/ACT Inhalation for 16 Not-TakingAlbuterol Sulfate 90 mcg/actuation HFA aerosol inhaler (3 sources)Start: 75-16-5322dfrf 1 puff(s) by inhalation every four to six hours as neededAlbuterol Sulfate 90 mcg/actuation HFA aerosol inhaler Active 2 PUFF INHALATION EVERY 4-6 HOURS as needed for bronchospasm 6.7 December 25, 2023 12:00amStart: 91-74-4194lhnr 1 puff(s) by inhalation every four to six hours as neededAlbuterol Sulfate 90 mcg/actuation HFA aerosol inhaler Active 2 PUFF INHALATION EVERY 4-6 HOURS as needed for bronchospasm 6.7 December 24, 2023 11:00pmbaclofen 5 mg oral tablet (20 sources)gamma-Aminobutyric Acid-ergic AgonistStart: 66-71-3257ytrd 1 tablet by mouth once daily at bedtimeBaclofen 5 mg tablet Active 0 .ROUTE .COMPLEX September 05, 2024 3:02pm TAKE 1 TABLET BY MOUTH ONCEDAILY AT BEDTIME Complies with drug therapyStart: 07-04-2024 End: 20-44-2643ogez 1 tablet by mouth once daily at bedtimeBaclofen 5 mg tablet Discontinued 5 MG PO Daily at bedtime August 01, 2024 8:30am September 05, 2024 3:02pmStart: 12-25-2023 End: 22-16-8701mevv 1 tablet by mouth once dailyBaclofen 20 mg tablet Discontinued 20 MG PO Daily December 25, 2023 12:00am July 04, 2024 3:25pm Start: 04-24-8404asbf 1 tablet by mouth every six hours as neededbaclofen 20 mg tablet Take 20 mg by mouth every 6 hours as needed. 11/22/2023 ActiveStart: 08-11-2023 End: 51-15-7719xnty 10 mg by mouth every six hours as neededBaclofen 20 mg tablet Discontinued 10 MG PO Every 6 hours as needed August 11, 2023 12:00am September 24, 2023 1:23pmStart: 08-11-2023 End: 83-88-3801nvhm 10 mg by mouth every six hoursBaclofen Discontinued 10 MG PO Every 6 hours August 10, 2023 11:00pm September 24, 2023 12:23pmStart: 01-25-2023 take 1 tablet by mouth every six hours for painBaclofen 20 MG 1 tablet Orally every 6 hours if needed for pain for 30 days Jan, ActiveStart: 04-18-2019 End: 87-15-1626gbrj 1 tablet by mouth four times daily as needed for muscle spasmsBaclofen 10 mg tablet Discontinued 10 MG PO Four times daily as needed for Muscle Spasm 20 5 June 26, 2019 10:50am July 02, 2019 8:26amtake 1 tablet by mouth every eight hoursBaclofen 10 MG 1 tablet with food or milk Orally Three times a day ActiveCalcium (20 sources)Phosphate Binder, CalciumCalcium + D Activecalcium carbonate 1250 mg oral tablet (20 sources)Start: 04-19-2019 End: 09-01-1511Gswcllj Carbonate (Oyster Shell Calcium 500) 500 mg calcium (1,250 mg) Tablet Active 500 MG PO Daily July 01, 2019 12:00am Complies with drug therapytake 1 tablet by mouth every twenty-four hoursOyster Shell Calcium 500 MG 1 tablet Orally Once a day Not-Takingcholecalciferol 0.025 mg oral tablet (20 sources)Vitamin DStart: 57-25-9012rgykobwcgnnvopr (VITAMIN D3) 1,000 unit tab tablet 2,000 Units. 07/01/2019 ActiveStart: 43-59-2551dsqp 1 tablet by mouth once dailyCholecalciferol (Vitamin D3) 25 mcg (1,000 unit) Tablet Active 2000 UNIT PO Daily July 01, 2019 12:00am Complies with drug therapyStart: 04-19-2019 End: 62-78-8932rtkg 1 tablet by mouth once dailyCholecalciferol (Vitamin D3) (Vitamin D3) 2,000 unit tablet Discontinued 2000 UNIT PO Daily April 19, 2019 1:00am July 02, 2019 8:26amdocusate sodium 100 mg oral capsule (20 sources)Start: 83-96-2039gwrj 1 capsule by mouth twice daily as needed for constipationDocusate Sodium (Dok) 100 mg Capsule Active 100 MG PO Twice daily as needed for Constipation July 01, 2019 12:00am Complies with drug therapy escitalopram 10 mg oral tablet (20 sources)Serotonin Reuptake InhibitorStart: 12-14-2023 End: 19-42-7088xlhb 1 tablet by mouth once dailyEscitalopram Oxalate 10 mg tablet Active 0 .ROUTE .COMPLEX October 13, 2024 10:45am Take 1 tablet by mouth once daily Complies with drug therapyStart: 11-26-2023 End: 24-14-4617mydy 2 tablets by mouth onceEscitalopram Oxalate 10 mg tablet Discontinued 20 MG PO Once November 26, 2023 9:21am December 14, 2023 8:35am Start: 11-26-2023 End: 12-85-1078hjyx 20 mg by mouth onceEscitalopram Oxalate Discontinued 20 MG PO Once November 26, 2023 8:21am December 14, 2023 7:35amStart: 10-10-2023 End: 71-77-7408sdfk 1 tablet by mouth once dailyEscitalopram Oxalate 10 mg tablet Discontinued 0 .ROUTE .COMPLEX November 23, 2023 12:47pm November 26, 2023 9:22am Take 1 tablet by mouth once dailyStart: 01-19-2023 End: 95-02-0610vrdk 1 tablet by mouth once dailyEscitalopram Oxalate (Lexapro) 10 mg tablet Discontinued 10 MG PO Daily July 26, 2023 12:00am October 10, 2023 8:36amfluconazole 150 mg oral tablet (20 sources)Azole AntifungalStart: 37-95-2340kahl 1 tablet by mouth every twenty-four hoursDiflucan 100 MG 1 tablet Orally daily for 3 days Feb, Not-TakingStart: 95-65-6484ziuy 1 tablet by mouth onceFluconazole 150 MG 1 tablet Orally once for 1 days Aug, Cahhli50 actuat fluticasone furoate 0.1 mg/actuat / vilanterol 0.025 mg/actuat dry powder inhaler (1 source)Corticosteroid, beta2-Adrenergic AgonistStart: 74-44-5771Xdvswxaympc Furoate-Vilanterol (Breo Ellipta) 100-25 mcg/dose blister with device Active 1 INH INHALATION Daily December 22, 2024 12:00am Complies with drug therapy hydrOXYzine pamoate 25 mg oral capsule (20 sources)AntihistamineStart: 69-32-2057mlvjGWXcbqy pamoate (VISTARIL) 25 mg capsule Take by mouth. 03/10/2022 ActiveStart: 76-10-8064jmce 1 tablet by mouth every twenty-four hourshydrOXYzine HCl 25 MG 1 tablet at bedtime as needed Orally Once a day for 30 day(s) Feb, ActiveIron (20 sources)Iron ActivelevoFLOXacin 500 mg oral tablet (9 sources)Quinolone AntimicrobialStart: 97-95-3315ugbp 1 tablet by mouth every twenty-four hourslevoFLOXacin 500 MG 1 tablet Orally Once a day for 5 days 03 Mar, 2023 Activemirtazapine 45 mg oral tablet (20 sources)Start: 60-15-9358uqjv 1 tablet by mouth every twenty-four hours Mirtazapine 45 MG 1 tablet at bedtime Orally Once a day for 30 day(s) Apr, ActiveStart: 07-01-2019 End: 16-24-0728qoth 1 tablet by mouth at bedtimeMirtazapine 30 mg Tablet Discontinued 30 MG PO Bedtime July 01, 2019 12:00am June 2141:12pm Start: 04-18-2019 End: 74-26-2589ldxz 2 tablets by mouth at bedtimeMirtazapine 15 mg tablet Discontinued 30 MG PO Bedtime April 18, 2019 1:00am July 02, 2019 8:26am Start: 04-18-2019 End: 83-01-4368npvv 30 mg by mouth at bedtimeMirtazapine Discontinued 30 MG PO Bedtime April 18, 2019 12:00am July 02, 2019 7:26amtake 1 tablet by mouth every twenty-four hoursMirtazapine 15 MG 1 tablet at bedtime Orally Once a day Not-TakingRemeron ActiveMultivitamin preparation (15 sources)Start: 38-93-1843iwvw 1 tablet by mouth once dailyMultivitamin Active 1 TAB PO Daily January 19, 2022 1:00amStart: 56-00-6971suru 1 tablet by mouth once dailyMultivitamin Active 1 TAB PO Daily January 19, 2022 12:00amMultivitamin Tablet (6 sources)Start: 81-40-7648ctyv 1 tablet by mouth once dailyMultivitamin Tablet Active 1 TAB PO Daily January 19, 2022 1:00am Complies with drug therapy Start: 69-48-2273fddr 1 tablet by mouth once dailyMultivitamin Tablet Active 1 TAB PO Daily January 19, 2022 1:00amStart: 35-81-1759phae 1 tablet by mouth once dailyMultivitamin Tablet Active 1 TAB PO Daily January 19, 2022 12:00am naloxone hydrochloride 40 mg/ml nasal spray (1 source)Opioid AntagonistStart: 16-08-7826Ypdfthdo (Narcan) 4 mg/actuation spray,non-aerosol Active 1 SPRAY INTRANASAL every 2 to 3 minutes as needed for opioid overdose December 12, 2024 12:00am spray 1 dose into ONE nostril; alternate nostrils w each dose until help arrives Complies with drug therapy omeprazole 40 mg delayed release oral capsule (20 sources)Proton Pump InhibitorStart: 33-39-8280beqx 1 capsule by mouth twice dailyOmeprazole 40 mg capsule,delayed release(DR/EC) Active 40 MG PO Twice daily 60 October 01, 2024 12:00am Complies with drug therapyStart: 11-26-2023 End: 91-02-6078iesv 1 capsule by mouth once dailyOmeprazole 40 mg capsule,delayed release(DR/EC) Discontinued 40 MG PO Daily 90 November 26, 2023 12:00am October 01, 2024 1:37pmStart: 04-18-2019 End: 66-32-6614cxol 1 capsule by mouth once daily before breakfastOmeprazole 20 mg Capsule,Delayed Release(Dr/Ec) Discontinued 20 MG PO Daily before breakfast July 01, 2019 12:00am July 05, 2021 1:45pmStart: 04-18-2019 End: 90-89-5006lqrs 20 mg by mouth once dailyOmeprazole Discontinued 20 MG PO Daily April 18, 2019 12:00am July 02, 2019 7:26amtake 1 tablet by mouth once dailyOmeprazole 20 MG 1 tablet 30 minutes before morning meal Orally Once a day Activeplecanatide 3 mg oral tablet (11 sources)Start: 81-15-7426spcb 1 tablet by mouth every twenty-four hours Probiotic (20 sources)Probiotic Activepromethazine hydrochloride 25 mg oral tablet (20 sources)PhenothiazineStart: 98-80-5186afyn 1 tablet by mouth every twelve hoursPromethazine HCl 25 MG 1 tablet as needed Orally every 12 hrs for 30 days July, ActivetraZODone hydrochloride 100 mg oral tablet (20 sources)Serotonin Reuptake InhibitorStart: 12-25-2023 End: 37-27-5046acwf 2 tablets by mouth once daily at bedtimeTrazodone 100 mg tablet Active 200 MG PO Daily at bedtime November 11, 2024 8:19am Complies with drug therapyStart: 94-75-5354msac 200 mg by mouth once daily at bedtime Trazodone Active 200 MG PO Daily at bedtime December 24, 2023 11:00pmStart: 11-26-2023 End: 60-59-9922Tdrlasngo 100 mg tablet Discontinued 150 MG PO Daily at bedtime November 26, 2023 9:22am 2023 1:32pmStart: 11-26-2023 End: 25-26-8002xolw 150 mg by mouth once daily at bedtimeTrazodone Discontinued 150 MG PO Daily at bedtime November 26, 2023 8:22am December 25, 2023 12: 32pmStart: 07-26-2023 End: 71-08-0780epwz 1 tablet by mouth once daily at bedtimeTrazodone 100 mg tablet Discontinued 100 MG PO Daily at bedtime July 26, 2023 12:00am 2023 9:22amStart: 06-20-2023 End: 08-01-9225knuu 1 tablet by mouth at bedtimeTrazodone Discontinued 0 .ROUTE .COMPLEX June 20, 2023 11:47am July 26, 2023 2:04pm take 1 tablet by mouth at bedtime if neededStart: 05-28-2023 End: 52-28-8217ojyu 1 tablet by mouth at bedtimeTrazodone 50 mg tablet Discontinued 0 .ROUTE .COMPLEX June 20, 2023 12:47pm July 26, 2023 3:04pm take 1 tablet by mouth at bedtime if neededStart: 05-28-2023 End: 94-41-2384pqjd 1 tablet by mouth at bedtimeTrazodone Discontinued 0 .ROUTE .COMPLEX May 28, 2023 8:59am June 20, 2023 11:47am take 1tablet by mouth at bedtime if neededStart: 05-28-2023 End: 76-58-6245etkx 1 tablet by mouth at bedtimeTrazodone Discontinued 0 .ROUTE .COMPLEX May 28, 2023 9:59am June 20, 2023 12:47pm take 1tablet by mouth at bedtime if neededStart: 08-03-2022 End: 86-01-2713qska 1 tablet by mouth once daily at bedtime as neededTrazodone 50 mg tablet Discontinued 50 MG PO Daily at bedtime as needed May 28, 2023 12:00am May 28, 2023 10:00amtraZODone (DESYREL) 150 mg tablet Take 200 mg by mouth daily at bedtime. ActivetraZODone HCl Not-TakingTrulance 3 MG (18 sources)Start: 93-59-0755koyc 1 tablet by mouth once daily Completed/Discontinued Medications MedicationDrug Class(es)DatesSig (Normalized)Sig (Original)acetaminophen 500 mg oral tablet (20 sources)Start: 07-01-2019 End: 38-62-1182edkr 1 tablet by mouth every four hoursAcetaminophen 500 mg Tablet Discontinued 500 MG PO Q4H 100 July 01, 2019 12:00am July 05, 2021 1:43pmacetaminophen 325 mg / HYDROcodone bitartrate 5 mg oral tablet (20 sources)Opioid AgonistStart: 12-25-2023 End: 04-67-2220sedf 1 tablet by mouth every eight hoursHydrocodone-Acetaminophen 5-325 mg tablet Discontinued 1 TAB PO Every 8 hours 90 March 28, 2024 April 30, 2024 9:35amStart: 34-53-3387ACZCVmuzgmo-acetaminophen (NORCO) 5- 325 mg per tablet .COMPLEX 11/23/2023 ActiveStart: 10-26-2023 End: 70-76-5908eyda 1 tablet by mouth every eight hours as needed for pain Hydrocodone-Acetaminophen 5-325 mg tablet Discontinued 0 .ROUTE .COMPLEX 90 November 23, 2023Oct2023 1:51pm TAKE 1 TABLET BY MOUTH EVERY 8 HOURS NEEDED FOR PAIN FOR 30 DAYS p/u 11/22, start art: 07-20-2023 End: 15-21-9759mbql 1 tablet by mouth every eight hours as needed for pain Hydrocodone-Acetaminophen 5-325 mg tablet Discontinued 1 TAB PO Every 8 hours as needed for pain 9029September 24, 2023 October 24, 2023 10:33amStart: 06-22-2023 End: 40-92-9556hknm 1 tablet by mouth every eight hours as needed for pain Hydrocodone-Acetaminophen 5-325 mg tablet Discontinued 1 TAB PO Every 8 hours as needed for pain 9029June 22, 2023 July 17, 2023 9:50amStart: 05-10-2023 End: 00-33-3116fqxu 1 tablet by mouth every six hours as needed for pain Hydrocodone-Acetaminophen 5-325 mg tablet Discontinued 1 TAB PO Every 6 hours as needed for pain 287 June 19, 2023 June 22, 2023 1:37pmStart: 03-21-2023 take 1 tablet by mouth every six hoursHYDROcodone-Acetaminophen 5-325 MG take 1 tablet by mouth every 6 hours if needed for 30 Apr, ActiveStart: 92-40-7515xjap 1 tablet by mouth every six hoursHYDROcodone-Acetaminophen 5-325 MG take 1 tablet by mouth every 6 hours if needed for 30 days Feb, ActiveStart: 20-59-7360pznt 1 tablet by mouth every six hoursHYDROcodone- Acetaminophen 10-325 MG 1 tablet as needed Orally every 6 hrs for 30 days Jan, ActiveStart: 71-59-0129yxbn 1 tablet by mouth every six hours as neededHYDROcodone-Acetaminophen 5-325 MG 1 tablet Orally every 6 hours, as needed Nov, ActiveStart: 87-20-2274jtpq 1 tablet by mouth every six hours as neededHYDROcodone-Acetaminophen 5-325 MG 1 tablet Orally every 6 hours, as needed for 30 days Oct, ActiveStart: 38-55-6496rmlt 1 tablet by mouth every six hoursHYDROcodone-Acetaminophen 5-325 MG 1 tablet as needed Orally every 6 hrs for 30 days p/u 08/10, start08/12Sep, ActiveStart: 83-65-9385huhe 1 tablet by mouth every six hoursHYDROcodone-Acetaminophen 5-325 MG 1 tablet as needed Orally every 6 hrs for 30 days p/u /, start08/12Aug, ActiveStart: 66-84-8428WVDVWdbvfzp-Acetaminophen 5-325 MG 1 Orally every 6 hrs p/u 07/12, start 07/13July, ActiveStart: 87-23-0890RICGJdssffq- Acetaminophen 5-325 MG 1 Orally every 6 hrs for 30 days p/u 05/12, start 05/14ctiveStart: 90-95-0715ITGGUdweqri-Acetaminophen 5-325 MG 1 Orally every 6 hrs for 30 days p/u 05/12, start 05/14ctiveStart: 04-13-2022 HYDROcodone-Acetaminophen 5-325 MG 1 Orally every 6 hrs for 30 days p/u 2/2, start 04/14ctiveStart: 01-19-2022 End: 51-43-2478Apmhjeevldt-Acetaminophen 5-325 mg tablet Discontinued 1 TAB PO As Directed as needed for Pain January 19, 2022 1:00am May 10, 2023 9:38amStart: 06-18-2019 End: 58-33-3211dfix 1 tablet by mouth every six hours as needed for pain Hydrocodone-Acetaminophen 5-325 mg tablet Discontinued 1 TAB PO Q6H as needed for Pain 20 June 26, 2019 10:50am July 02, 2019 8:26amStart: 05-01-2019 End: 26-57-6194harx 5-325 mg by mouth four times dailyHydrocodone-Acetaminophen 5-325 mg tablet Discontinued 5 - 325 MG PO Four times daily 0 2019June 18, 2019 5:31pmStart: 04-18-2019 End: 08-04-0424avet 5-325 mg by mouth four times dailyHydrocodone-Acetaminophen 5-325 mg tablet Discontinued 5 - 325 MG PO Four times daily April 1:00am April 19, 2019 9:08amHYDROcodone-Acetaminophen ActiveALPRAZolam 0.5 mg oral tablet (20 sources)BenzodiazepineStart: 08-14-2022 End: 46-78-1846huos 1 tablet by mouth three times daily as needed for anxiety Alprazolam 0.5 mg tablet Discontinued 0.5 MG PO Three times daily as needed for anxiety 90 2023 9:58am June 24, 2023 9:41pmStart: 06-18-2019 End: 60-64-8974roof 1 tablet by mouth every six hours as needed for anxiety Alprazolam 0.5 mg tablet Discontinued 0.5 MG PO Q6H as needed for Anxiety 0 June 26, 2019 10:50am July 02, 2019 8:26amStart: 04-18-2019 End: 82-35-7518kzac 1 tablet by mouth once dailyAlprazolam 0.5 mg tablet Discontinued 0.5 MG PO Daily 10 April 19, 2019 9:05am June 18, 2019 5:28pmtake 1 tablet by mouth four times dailyXanax 0.5 MG 1 tablet Orally 4 times daily Activeamoxicillin 500 mg / clavulanate 125 mg oral tablet (6 sources)Penicillin-class AntibacterialStart: 03-28-2024 End: 88-30-0824hjrn 1 tablet by mouth twice dailyAmoxicillin-Pot Clavulanate 500-125 mg tablet Discontinued 1 TAB PO Twice daily March 28, 2024 1:00am June 23, 2024 1:11pmamylase [id number] unt / lipase 70852 unt / protease [id number] unt delayed release oral capsule (20 sources)Start: 07-05-2021 End: 79-36-0733mhfj 24392-724947 capsules by mouth once daily Sctago-Qrcgghag-Yclwnwd (Creon) 36,000-114,000- 180,000 unit capsule,delayed release(DR/EC) Discontinued 1 CAP PO Daily July 05, 2021 12:00am July 06, 2021 7:56amStart: 53-02-4180bslg 1 capsule by mouth three times daily at mealtimeCreon 36402-440940 UNIT 1 CAPSULE Orally THREE TIMES A DAY WITH MEALS for 30 days Jun, Activeazithromycin 250 mg oral tablet (20 sources)Macrolide AntimicrobialStart: 08-11-2023 End: 48-29-6788Vgyfwhxjcjxn 250 mg tablet Discontinued 0 PO .COMPLEX August 11, 2023 12:00am September 24, 2023 1:21pm For 250 mg dose pack: take 500 mg today (day 1), then 250 mg for 4 days (days 2-5) POStart: 08-11-2023 End: 10-15-1102Piwwxdndgbem Discontinued 0 PO .COMPLEX August 10, 2023 11:00pm September 24, 2023 12:21pm For 250 mgdose pack: take 500 mg today (day 1), then 250 mg for 4 days (days 2-5) POStart: 08-11-2023 End: 37-15-2005Jbqltdoumtvo Discontinued 0 PO .COMPLEX August 11, 2023 12:00am September 24, 2023 1:21pm For 250 mg dose pack: take 500 mg today (day 1), then 250 mg for 4 days (days 2-5) POStart: 55-04-1799Xpfvbkobxbjb Active 0 PO .COMPLEX August 11, 2023 12:00am For 250 mg dose pack: take 500 mg today (day 1), then 250 mg for 4 days (days 2-5) POStart: 11-02-1823Eesfuwrzfpnc 250 MG as directed Orally 2 tabs po today, then 1 tab daily x 4 more days for 5 Dec, Not-Taking/PRNStart: 84-07-1964Tgtrnaeotzhu 250 MG 2 tablet on first day, 1 tablet daily for 4 days Orally daily for 5 Aug, ActiveStart: 05-09-2022 Azithromycin 250 MG as directed Orally daily for 5 days Apr, Active Start: 58-70-6051Htwcecfwt 250 MG 2 tablet on the first day, then 1 tablet daily for 4 days Orally Once a day for 5 day(s) Apr, Activecalcium chloride 0.0014 meq/ml / potassium chloride 0.004 meq/ml / sodium chloride 0.103 meq/ml / sodium lactate 0.028 meq/ml injectable solution (1 source)Start: 03-21-2024 End: 86-20-4828ajgx 5-30 mL intravenously every hour5-30 mL/hr, INTRAVENOUS, CONTINUOUS, Starting on Sun03/21/24 at 1130, Until 03/22/24 at 0425, Recovery or Phase I (only)cephalexin 500 mg oral capsule (8 sources)Cephalosporin AntibacterialStart: 01-16-2024 End: 15-44-4208kjam 1 capsule by mouth twice dailyCephalexin 500 mg capsule Discontinued 500 MG PO Twice daily 14 January 16, 2024 1:00am 2024 2:26pmciprofloxacin 250 mg oral tablet (20 sources)Quinolone AntimicrobialStart: 06-22-2023 End: 58-76-4233fnwh 1 tablet by mouth twice dailyCiprofloxacin Hcl 250 mg tablet Discontinued 250 MG PO Twice daily June 22, 2023 12:00am July 26, 2023 3:05pmStart: 16-26-8866jrjh 1 tablet by mouth every twelve hoursCiprofloxacin HCl 250 MG 1 tablet Orally every 12 hrs for 5 day(s) 13 Sep, 2023 Not-Taking/PRN Start: 73-50-1774Ijayvrc 0.3 % 1 application into the lower eyelid of each eye Ophthalmic 4 times a day for 5 days Oct, ActiveStart: 92-61-4880upre 1 tablet by mouth every twelve hoursCipro 500 MG 1 tablet Orally every 12 hrs for 7 days Feb, Not-TakingCiloxan Activecitalopram 40 mg oral tablet (1 source)Serotonin Reuptake Inhibitortake 1 tablet by mouth every twenty-four hoursCitalopram Hydrobromide 40 MG 1 tablet Orally Once a day Not-Taking clopidogrel 75 mg oral tablet (20 sources)P2Y12 Platelet InhibitorStart: 04-18-2019 End: 19-72-9703cxgo 1 tablet by mouth once dailyClopidogrel 75 mg Tablet Discontinued 75 MG PO Daily July 01, 2019 12:00am July 05, 2021 1:43pm clotrimazole 10 mg oral lozenge (1 source)Azole AntifungalStart: 89-34-0367Ksvfuwhufcpu 10 MG 1 sandy Mouth/Throat qid for 10 day(s) May, Not-Takingcyclobenzaprine hydrochloride 10 mg oral tablet (1 source)Muscle Relaxanttake 1 tablet by mouth every eight hoursCyclobenzaprine HCl 10 MG 1 tablet Oral Three times a day Not-Takingdicyclomine hydrochloride 20 mg oral tablet (20 sources)AnticholinergicStart: 87-53-8665hcfg 1 tablet by mouth every six hoursdicyclomine (BENTYL) 20 MG tablet Take 1 tablet by mouth every 6 hours 0 04/14/2023 ActiveStart: 12-07-2020 End: 88-76-0933djqv 1 tablet by mouth four times daily as neededDicyclomine 20 mg tablet Discontinued 20 MG PO Four times daily as needed August 11, 2023 11:09am March 28, 2024 2:33pmStart: 12-07-2020 End: 82-45-1987cttu 1 tablet by mouth three times dailyDicyclomine 20 mg tablet Discontinued 20 MG PO Three times daily July 05, 2021 12:00am June 22, 2023 1:11pmdoxycycline hyclate 100 mg oral tablet (20 sources)Tetracycline-class DrugStart: 04-19-2019 End: 53-73-3222sswr 1 tablet by mouth twice dailyDoxycycline Hyclate 100 mg tablet Discontinued 100 MG PO Twice daily 10 April 19, 2019 1:00amApril 2019 8:26amFiber (1 source)Fiber - Orally *please review for potential _update for e-prescription and drug interaction check* Not-Takingfluticasone propionate 0.05 mg/actuat metered dose nasal spray (1 source)CorticosteroidFluticasone Propionate 50 MCG/ACT Nasal for 28 Not-TakingFluticasone Propion-Salmeterol (20 sources)Corticosteroid, beta2-Adrenergic AgonistStart: 07-05-2021 End: 16-56-1104sdgi 1 puff(s) by inhalation once dailyFluticasone Propion- Salmeterol (Advair Hfa) 115-21 mcg/actuation HFA aerosol inhaler Discontinued 1 PUFF INHALATION Daily July 05, 2021 12:00am July 06, 2021 7:57amStart: 07-05-2021 End: 64-40-0924ajym 1 puff(s) by inhalation once dailyFluticasone Propion- Salmeterol (Advair Hfa) 115-21 mcg/actuation HFA aerosol inhaler Discontinued 1 PUFF INHALATION Daily July 04, 2021 11:00pm July 06, 2021 6:57amStart: 04-19-2019 End: 23-83-8995dyiu 1 puff(s) by inhalation twice dailyFluticasone Propion- Salmeterol 113-14 mcg/actuation Aerosol Powdr Breath Activated Discontinued 1 PU FF INHALATION Twice daily 60 July 01, 2019 12:00am December 22, 2024 1:25pm take 1 puff(s) by inhalation in the morningfluticasone-salmeterol (ADVAIR) 100- 50 MCG/ACT AEPB diskus inhaler Inhale 1 puff into the lungs in the morning and 1 puff in the evening. 0 ActiveAdvair HFA Activetake 2 puff(s) by inhalation twice dailyAdvair HFA 115-21 MCG/ACT 2 puffs Inhalation Twice a day Active ibandronic acid 150 mg oral tablet (20 sources)BisphosphonateStart: 05-28-2023 End: 48-92-9569nbck 1 tablet by mouth every monthIbandronate 150 mg tablet Discontinued 0 .ROUTE .COMPLEX 3 February 23, 2024 7:58am August 11, 2024 4:20pm take 1 tablet by mouth EACH MONTH 60 MINUTES BEFORE THE FIRST FOOD,BEVERAGE OR MEDICINE OF THE DAY WITH PLAIN WATERStart: 05-02-2023 End: 57-92-2778npvn 1 tablet by mouth once dailyIbandronate 150 mg tablet Discontinued 150 MG PO May 28, 2023 12:00am May 28, 2023 10:00am 1 tablet 60 minutes before the first food, beverage or medicine of the day with plain water OrallyStart: 63-60-1893wars 1 tablet by mouth every 30 days ibandronate (BONIVA) 150 MG tablet Take 1 tablet by mouth every 30 days 0 05/02/2023 Activetake 1 tablet by mouth once dailyIbandronate Sodium 150 MG 1 tablet 60 minutes before the first food, beverage or medicine of the day with plain water Orally for 30 days Smjjqf84 ml lidocaine hydrochloride 20 mg/ml injection (1 source)Antiarrhythmic, Amide Local AnestheticStart: 06-15-2023 End: 34-30-8940ohrhqveww 2 % injectionlinaclotide 0.29 mg oral capsule (20 sources)Guanylate Cyclase-C AgonistStart: 01-08-2023 End: 33-88-9148owvv 1 capsule by mouth once dailyLinaclotide (Linzess) 290 mcg capsule Discontinued 290 MCG PO Daily November 26, 2023 9:34am June 23, 2024 1:13pmStart: 57-64-8095hprq 1 capsule by mouth at bedtimeLINZESS 290 MCG CAPS capsule Take 1 capsule by mouth in the morning and at bedtime 0 01/08/2023 Activetake 1 capsule by mouth every twelve hoursLinzess 290 MCG 1 capsule twice a day ActiveLinzess 290 MCG 1 capsule at least 30 minutes before the first meal of the day on an empty stomach Orally twice daily for 30 days Activeloperamide hydrochloride 2 mg oral capsule (20 sources)Opioid AgonistStart: 07-01-2019 End: 20-99-1748ucng 1 capsule by mouth twice dailyLoperamide 2 mg Capsule Discontinued 2 MG PO Twice daily July 01, 2019 12:00am July 05, 2021 1:44pmMagnesium (1 source)take 1 capsule by mouth once dailyMagnesium 500 MG 1 capsule with a meal Orally daily Not-Xmmcdr08 hr mesalamine 375 mg extended release oral capsule (20 sources)AminosalicylateStart: 01-20-2022 End: 92-87-9506iueh 1 capsule by mouth once daily in the morningMesalamine 0.375 gram capsule,extended release 24hr Discontinued 1.5 GM PO Every morning January 20, 2022 1:00am June 22, 2023 1:12pmStart: 01-20-2022 End: 08-25-0464avvi 1 capsule by mouth once daily in the morningMesalamine 0.375 gram capsule,extended release 24hr Discontinued 1.5 GM PO Every morning January 20, 2022 1:00am June 22, 2023 1:12pmStart: 01-20-2022 End: 65-85-7367wsng 1 capsule by mouth once daily in the morningMesalamine 0.375 gram capsule,extended release 24hr Discontinued 1.5 GM PO Every morning January 20, 2022 12:00am June 22, 2023 12:12pmStart: 01-20-2022 End: 41-04-3155nfam 1.5 g by mouth once daily in the morningMesalamine Discontinued 1.5 GM PO Every morning January 20, 2022 12:00am June 22, 2023 12:12pmStart: 01-20-2022 End: 13-59-6797bldz 1.5 g by mouth once daily in the morningMesalamine Discontinued 1.5 GM PO Every morning January 20, 2022 1:00am June 22, 2023 1:12pmStart: 30-78-1529nrcp 1.5 g by mouth once daily in the morning Mesalamine Active 1.5 GM PO Every morning January 20, 2022 1:00amStart: 38-49-7040yqqu 1.5 g by mouth once daily in the morningMesalamine Active 1.5 GM PO Every morning January 20, 2022 12:00amStart: 06-26-2019 End: 32-48-1763aebi 4 tablets by mouth once daily in the morningMesalamine (Lialda) 1.2 gram Tablet,Delayed Release (Dr/Ec) Discontinued 4.8 GM PO Every morning 30Apr2019 12:00am July 05, 2021 1:44pmtake 4 tablets by mouth every twenty-four hoursLialda 1.2 GM 4 TABLETS Orally Once a day Active take 2 tablets by mouth every twenty-four hoursLialda 1.2 GM 2 tablets Orally Once a day ActiveMesalamine (Lialda) 1.2 gram tablet,delayed release (DR/EC) (18 sources)Start: 06-26-2019 End: 50-63-6095udbm 4 tablets by mouth once daily in the morningMesalamine (Lialda) 1.2 gram tablet,delayed release (DR/EC) Discontinued 4.8 GM PO Every morning June 26, 2019 2:54pm July 02, 2019 8:26amStart: 06-26-2019 End: 54-37-9862uwah 4 tablets by mouth once daily in the morningMesalamine (Lialda) 1.2 gram tablet,delayed release (DR/EC) Discontinued 4.8 GM PO Every morning June 26, 2019 1:54pm July 02, 2019 7:26amMesalamine (Lialda) 1.2 gram Tablet,Delayed Release (Dr/Ec) (18 sources)Start: 06-26-2019 End: 57-48-2710jfxx 4 tablets by mouth once dailyMesalamine (Lialda) 1.2 gram Tablet,Delayed Release (Dr/Ec) Discontinued 4.8 GM PO Daily 360 90 June 26, 2019 12:00am June 26, 2019 2:54pmStart: 06-26-2019 End: 92-05-1710jhxx 4 tablets by mouth once dailyMesalamine (Lialda) 1.2 gram Tablet,Delayed Release (Dr/Ec) Discontinued 4.8 GM PO Daily 360 90 June 25, 2019 11:00pm June 26, 2019 1:54pmmethylPREDNISolone 4 mg oral tablet (6 sources)CorticosteroidStart: 03-28-2024 End: 01-81-3189Vzisutuhljtazlsszm 4 mg tablets,dose pack Discontinued 0 PO per package directions March 1:00am June 23, 2024 1:13pm PO PER PKG DIR for 6 daysmetroNIDAZOLE 500 mg oral tablet (20 sources)Nitroimidazole AntimicrobialStart: 07-01-2019 End: 17-41-9831aalm 1 tablet by mouth twice dailyMetronidazole 500 mg Tablet Discontinued 500 MG PO Twice daily 6 3 July 01, 2019 12:00am July 05, 2021 1:44pmmupirocin 0.02 mg/mg topical ointment (1 source)RNA Synthetase Inhibitor AntibacterialMupirocin 2 % apply to affected area twice a day External for 10 Not-Takingnaloxegol 12.5 mg oral tablet (20 sources)Opioid AntagonistStart: 10-01-2024 End: 36-85-2706znlt 1 tablet by mouth once daily in the morningNaloxegol (Movantik) 12.5 mg tablet Discontinued 12.5 MG PO Every morning October 01, 2024 12:00am December 22, 2024 1:09pm must be taken on empty stomach; no food 1 hr after or 2-3 hrs before doseStart: 07-73-7803alsp 1 tablet by mouth every twenty-four hoursMovantik 12.5 MG 1 tablet in the morning Orally Once a day for 30 day(s) Nov, ActiveMovantik ActiveOmeprazole 20 mg capsule,delayed release(DR/EC) (3 sources)Start: 04-18-2019 End: 35-79-6045jlgg 1 capsule by mouth once dailyOmeprazole 20 mg capsule,delayed release(DR/EC) Discontinued 20 MG PO Daily April 18, 2019 1:00am July 02, 2019 8:26amStart: 04-18-2019 End: 62-96-9796nsza 1 capsule by mouth once dailyOmeprazole 20 mg capsule,delayed release(DR/EC) Discontinued 20 MG PO Daily April 18, 2019 12:00am July 02, 2019 7:26amoxyCODONE hydrochloride 5 mg oral tablet (20 sources)Opioid AgonistStart: 07-01-2019 End: 26-06-9617trey 1 tablet by mouth every four hours as needed for pain Oxycodone 5 mg Tablet Discontinued 5 MG PO Every 4 hours as needed for Pain Scale 6 - 10 20 7 2019January 19, 2022 2:16pmpantoprazole 40 mg delayed release oral tablet (20 sources)Proton Pump InhibitorStart: 06-13-2021 End: 97-21-9552uayk 1 tablet by mouth once dailyPantoprazole 40 mg tablet,delayed release (DR/EC) Discontinued 40 MG PO Daily 30 May 02, 2023 1:00am November 26, 2023 9:33am Take 1 tablet orally once a day Pantoprazole Sodium Activepolysaccharide iron complex 150 mg oral capsule (20 sources)Start: 07-05-2021 End: 92-10-6027Edawtbmvtkmydt Iron Complex (Iferex 150) 150 mg iron capsule Discontinued 150 MG PO Daily July 05, 2021 12:00am January 19, 2022 2:17pm potassium chloride 10 meq extended release oral tablet (20 sources)Start: 06-26-2019 End: 05-04-3353Hiajnzgce Chloride (Klor-Con 10) 10 mEq Tablet Extended Release Discontinued 10 MEQ PO 3x/Day with meals 60 July 01, 2019 12:00am July 06, 2021 7:56ampredniSONE 20 mg oral tablet (20 sources)Start: 08-11-2023 End: 69-78-8416zhkv 2 tablets by mouth once dailyPrednisone 20 mg tablet Discontinued 20 MG PO .COMPLEX August 11, 2023 12:00am September 24, 2023 1:23pm Take 2 tabs po daily x 5 daysStart: 58-56-7874ljkuzyQFNY 20 MG take 2 tabs po daily x 5 days Orally Once a day for 5 16 Aug, 2022 ActiveStart: 07-78-7934bjer 2 tablets by mouth every twenty-four hourspredniSONE 20 MG 2 tablets Orally Once a day for 5 days July, ActiveStart: 05-98-4755ycwbsqNUHM 20 MG 2 Orally Once a day for 5 days Apr, ActiveStart: 85-05-3930obtb 1 tablet by mouth every twelve hourspredniSONE 20 MG 1 tablet Orally bid for 5 day(s) Apr, ActiveStart: 07-86-6125lzbd 1 tablet by mouth every twenty-four hours predniSONE 20 MG 1 tablet Orally Once a day for 14 days Jan, Not-Taking Start: 04-19-2019 End: 22-89-3668wtwb 1 tablet by mouth twice daily, then take 1 tablet by mouth once dailyPrednisone 10 mg tablet Discontinued 10 MG PO As Directed April 19, 2019 1:00am July 02, 2019 8:26am Take 1 tablet twice a day for 3 days then 1 tablet dailypredniSONE Not-Taking/PRNpredniSONE Not-Takingpregabalin 150 mg oral capsule (20 sources)Start: 10-04-2022 End: 35-15-3739dyrt 1 capsule by mouth twice dailyPregabalin (Lyrica) 150 mg capsule Discontinued 150 MG PO Twice daily June 22, 2023 12:00am 2023 11:55amStart: 01-88-7979izma 1 capsule by mouth every twelve hoursLyrica 75 MG 1 capsule Orally Twice a day Apr, ActivePregabalin ActiveLyrica Activeprochlorperazine 5 mg/ml injectable solution (1 source)PhenothiazineStart: 03-21-2024 End: 24-45-9309pdbh 10 mg intravenously every six hours as ytfrkx86 mg, INTRAVENOUS, EVERY 6 HOURS NEEDED, Starting on Sun03/21/24 at 1118, Until 03/22/24 at 0425, Nausea/Vomiting - Second Line - Parenteral, EVERY 6 HOURS NEEDED Protect From Light, Recovery or Phase I (only)sucralfate 1000 mg oral tablet (6 sources)Aluminum ComplexStart: 80-89-1410nmij 1 tablet by mouth every six hoursSucralfate 1 GM 1 TABLET Orally FOUR TIMES A DAY for 30 day(s) Jan, Not-TakingVitamin B Complex (1 source)Vitamin B Complex *please review for potential _update for e- prescription and drug interaction check* Not-TakingVitamin D 400 UNIT (1 source)take 1 tablet by mouth once dailyVitamin D 400 UNIT 1 tablet Orally Once a day *please review for potential _update for e-prescription and drug interaction check* Not-TakingVitamin D3 1000 (1 source)Vitamin D3 1000 *please review for potential _update for e- prescription and drug interaction check*Not-Taking Problems Active Problems Problem ClassificationProblemDateDocumented DateEpisodic/ChronicAbdominal pain (20 sources)Abdominal pain; Translations: [Unspecified abdominal pain]Onset: 05-07-2017 Resolved: 56-41-7324IcefmponZtyxkol on above:Problem List clean-up per request of Phys. EHR CmteAcute bronchitis (14 sources)Acute bronchitis due to other specified organisms; Translations: [Acute bronchitis]EpisodicAdministrative/social admission (20 sources)Other reduced mobility; Translations: [Impaired mobility and activities of daily living]41-80-9010LcqjytlvZjeyijj on above:Problem List clean-up per request of Phys. EHR CmteAnxiety disorders (20 sources)Generalized anxiety disorder; Translations: [Generalized anxiety disorder]Onset: 83-29-4592KruhudyQzzywuj on above:Problem List clean-up per request of Phys. EHR CmteCalculus of urinary tract (1 source)Personal history of urinary calculi; Translations: [PERSONAL HISTORY OF URINARY CALCULI]Onset: 54-50-5475PssfgyqrYlprgfj obstructive pulmonary disease and bronchiectasis (20 sources)Cachexia; Translations: [Chronic obstructive pulmonary disease, unspecified]Onset: 10-08-2017 Resolved: [id number] obstructive pulmonary disease and bronchiectasis (20 sources)Bronchitis; Translations: [Bronchitis, not specified as acute or chronic]39-68-2900SibvpusvDvdkypmozjh and hemorrhagic disorders (20 sources)Petechiae of skin; Translations: [Spontaneous ecchymoses]Onset: 23-02-3334RwwhayuiSshovnyjxr and other anemia (20 sources)Anemia; Translations: [Anemia, unspecified]91-85-6067Gcibcpsy Diabetes mellitus without complication (5 sources)Type 2 diabetes mellitus without complication; Translations: [Diabetes mellitus without mention of complication, type II or unspecified type, not stated as uncontrolled]Onset: 13-59-5916HqpaqieNhpzacsl mellitus without complication (16 sources)Impaired fasting glycemia; Translations: [Impaired fasting glucose] Onset: 61-90-0731HvkvivtoJgrvortyq of lipid metabolism (20 sources)Pure hypercholesterolemia, unspecified; Translations: [Hyperlipidemia]Onset: 30-70-7928OajulzaOljyvytlbowfkg and diverticulitis (20 sources)Diverticular disease of colon; Translations: [Diverticulosis of intestine, part unspecified, without perforation or abscess without bleeding] Onset: 06-29-2014 Resolved: [id number] on above:Problem List clean-up per request of Phys. EHR CmteEsophageal disorders (20 sources)Esophageal varices; Translations: [Esophageal varices without bleeding]Onset: 06-13-2021 Resolved: 88-86-2817SykqsjiJixmfmn on above:Problem List clean-up per request of Phys. EHR CmteEsophageal disorders (11 sources)Esophageal disorders; Translations: [Gastro-esophageal reflux disease with esophagitis, without bleeding]Essential hypertension (1 source)Essential (primary) hypertension; Translations: [Essential (primary) hypertension]Onset: 27-30-7151IlbwqjsPixwhnwq of lower limb (20 sources)Other fracture of upper end of right tibia, initial encounter for closed fracture; Translations: [Displaced bicondylar fracture of right tibia, subsequent encounter for closed fracture with routine healing]Episodic Gastrointestinal hemorrhage (15 sources)Hemorrhage of anus and rectum; Translations: [Hemorrhage of rectum and anus]Onset: 53-80-1338SlchyubwFastyurodljck and screening for infectious disease (20 sources)Contact with and (suspected) exposure to other viral communicable diseases; Translations: [Contact with and (suspected) exposure to infections with a predominantly sexual mode of transmission]Onset: 04-13-2021 Resolved: 27-22-2899CduzinqnJjslwbcdwibg; infection of eye (except that caused by tuberculosis or sexually transmitteddisease) (20 sources)Acute conjunctivitis; Translations: [Unspecified acute conjunctivitis, bilateral]EpisodicIntestinal obstruction without hernia (8 sources)Intestinal obstruction co-occurrent and due to decreased peristalsis; Translations: [Ileus, unspecified]91-59-7395NtuhnglsJquppoochw disorders (11 sources)Primary ovarian failure; Translations: [Other primary ovarian failure]ChronicMiscellaneous mental health disorders (20 sources)Primary insomnia; Translations: [Primary insomnia]Onset: 11-14-2016 ChronicMood disorders (20 sources)Depressive disorder; Translations: [Depression]Onset: 03-18-2014 09-07-9140NvcfgzmYodepxt (12 sources)Candidiasis of mouth; Translations: [Candidal stomatitis] Resolved: 86-19-0860DmbwqmxfXbisrt and vomiting (11 sources)Nausea; Translations: [Nausea]EpisodicNoninfectious gastroenteritis (20 sources)Colitis; Translations: [Noninfective gastroenteritis and colitis, unspecified]62-61-9935PuysoyvuLfmiqeq on above:Problem List clean-up per request of Phys. EHR CmteNonspecific chest pain (15 sources)Chest pain, unspecified; Translations: [Chest pain]Onset: 02-23-2022 EpisodicNutritional deficiencies (20 sources)Vitamin D deficiency; Translations: [Vitamin D deficiency, unspecified]ChronicNutritional deficiencies (20 sources)Iron deficiency; Translations: [Iron deficiency] Resolved: 191945-22-7121ZoyxxcjzZxiomzj on above:Problem List clean-up per request of Phys. EHR CmteOsteoporosis (20 sources)Senile osteoporosis; Translations: [Age-related osteoporosis without current pathological fracture]Onset: 09-05-2021 Resolved: 68-52-8294ZzfunwmBrojmgz on above:Problem List clean-up per request of Phys. EHR CmteOther acquired deformities (20 sources)Acquired kyphoscoliosis; Translations: [Scoliosis, unspecified] ChronicOther acquired deformities (10 sources)Acquired spondylolisthesis; Translations: [Spondylolysis, cervical region]EpisodicOther acquired deformities (1 source)Spondylolysis, cervical region; Translations: [Spondylolysis, cervical region]EpisodicOther aftercare (2 sources)Other watcher automat long goods (current) drug therapy; Translations: [OTH CUSTODIAL CURRENT DRUG THERAPY]Onset: 24-34-2292NbiwqpdhQdics aftercare (10 sources)Long-term current use of drug therapy; Translations: [Other intermediate (current) drug therapy]EpisodicOther and ill-defined cerebrovascular disease (15 sources)Cerebral atherosclerosis; Translations: [Cerebral atherosclerosis] Onset: 75-97-7272RnppnkwZhkbt and ill-defined cerebrovascular disease (1 source)Cerebral atherosclerosis; Translations: [Cerebral atherosclerosis] ChronicOther circulatory disease (20 sources)History of cerebrovascular accident; Translations: [Personal history of transient ischemic attack (TIA), and cerebral infarction without residual deficits]77-70-5380NwtjemimJigaf circulatory disease (2 sources)Personal history of transient ischemic attack (TIA), and cerebral infarction without residual deficits; Translations: [PERS HX TIA AND CI NO RESID DEFICIT]Onset: 70-49-4823OtnijeqnQcgit circulatory disease (10 sources)History of cerebrovascular accident without residual deficits; Translations: [Personal history of transient ischemic attack (TIA), and cerebral infarction without residual deficits]EpisodicOther congenital anomalies (5 sources)Congenital spondylolysis of lumbosacral region; Translations: [Congenital spondylolysis, lumbosacral region]Onset: 11-18-3507UjoasphPpcnq connective tissue disease (20 sources)Fibromyalgia; Translations: [Fibromyalgia]62-68-6044FohgniklVvhgp connective tissue disease (20 sources)Recurrent falls ; Translations: [Repeated falls]71-73-2113Ooeeuosk Comment on above:Problem List clean-up per request of Phys. EHR CmteOther connective tissue disease (12 sources)Fibromyalgia; Translations: [Myalgia and myositis, unspecified] Onset: 64-57-2664WwpvycvhVpmpo diseases of veins and lymphatics (20 sources)Peripheral venous insufficiency; Translations: [Venous insufficiency (chronic) (peripheral)]Onset: 57-78-9293OfqaxjixSdtot diseases of veins and lymphatics (2 sources)Venous insufficiency (chronic) (peripheral); Translations: [Venous insufficiency (chronic) (peripheral)]EpisodicOther disorders of stomach and duodenum (20 sources)Disorder of function of stomach; Translations: [Disease of stomach and duodenum, unspecified]Onset: 119562-22-9295XwkyqnoeQsrvvxd on above: Problem List clean-up per request of Phys. EHR CmteOther female genital disorders (5 sources)Polyp of vagina; Translations: [POLYP OF VAGINA]Onset: 04-17-2022 EpisodicOther female genital disorders (10 sources)Polyp of vagina; Translations: [Polyp of vagina]EpisodicOther fractures (20 sources)Compression fracture of thoracic spine; Translations: [Wedge compression fracture of unspecified thoracic vertebra, initial encounter for closed fracture]70-76-6021RlbpyzniBqektzm on above:Problem List clean-up per request of Phys. EHR CmteOther fractures (9 sources)Collapsed vertebra, not elsewhere classified, site unspecified, initial encounter for fracture; Translations: [Closed fracture of unspecified vertebral column without mention of spinal cord injury]Onset: 09-02-2021 38-93-0467FmrghbmaBrece fractures (10 sources)Pathological fracture of vertebra; Translations: [Collapsed vertebra, not elsewhere classified, site unspecified, initial encounter for fracture]EpisodicOther fractures (2 sources)Wedge compression fracture of unspecified lumbar vertebra, initial encounter for closed fractureEpisodicOther fractures (1 source)Wedge compression fracture of second lumbar vertebra, initial encounter for closed fractureEpisodicOther fractures (1 source)Wedge compression fracture of fifth lumbar vertebra, initial encounter for closed fractureEpisodicOther fractures (2 sources)Wedge compression fracture of T11-T12 vertebra, initial encounter for closed fractureEpisodicOther fractures (3 sources)Wedge compression fracture of T11-T12 vertebra, subsequent encounter for fracture with delayed healing; Translations: [Wedge compression fracture of t11-T12 vertebra, subsequent encounter for fracture with delayed healing]Onset: 27-83-8655AinggyyqLwzpm fractures (1 source)Fracture of twelfth thoracic vertebra; Translations: [Wedge compression fracture of T11-T12 vertebra, subsequent encounter for fracture with delayed healing]45-22-3810KigpscsqQbxif fractures (18 sources)Compression fracture of vertebral column; Translations: [Collapsed vertebra, not elsewhere classified, site unspecified, initial encounter for fracture]92-09-3053LbnnseuwOqdku gastrointestinal disorders (20 sources)Irritable bowel syndrome with diarrhea; Translations: [Irritable bowel syndrome with diarrhea]ChronicOther gastrointestinal disorders (5 sources)Irritable bowel syndrome with diarrhea; Translations: [Irritable bowel syndrome with diarrhea K58.0]Onset: 12-07-2020 Resolved: 77-12-0363EmvybgkUaryx gastrointestinal disorders (10 sources)Irritable bowel syndrome; Translations: [Irritable bowel syndrome without diarrhea]Onset: 92-35-1100LkgkdanJxnkl gastrointestinal disorders (1 source)Irritable bowel syndrome without diarrhea; Translations: [Irritable bowel syndrome without diarrhea]Onset: 05-60-7711GyyuokhSzbeg gastrointestinal disorders (20 sources)Swollen abdomen; Translations: [Abdominal distension (gaseous)] EpisodicOther gastrointestinal disorders (20 sources)Diarrhea; Translations: [Diarrhea, unspecified] Resolved: 78-29-5841KzqpqviaNiycl gastrointestinal disorders (20 sources)Constipation; Translations: [Constipation, unspecified]11-26-2023 EpisodicOther gastrointestinal disorders (7 sources)Constipation, unspecified; Translations: [Constipation, unspecified] EpisodicOther gastrointestinal disorders (1 source)Other specified symptoms and signs involving the digestive system and abdomenEpisodicOther gastrointestinal disorders (4 sources)Drug-induced constipation; Translations: [Drug induced constipation] 25-03-0868GyktoihuOntqp injuries and conditions due to external causes (10 sources)Old healed fracture of bone ; Translations: [Personal history of (healed) traumatic fracture]EpisodicOther injuries and conditions due to external causes (10 sources)History of fall; Translations: [History of falling]EpisodicOther injuries and conditions due to external causes (1 source)Personal history of (healed) traumatic fracture; Translations: [Personal history of (healed) traumatic fracture]EpisodicOther injuries and conditions due to external causes (1 source)History of falling; Translations: [History of falling]EpisodicOther injuries and conditions due to external causes (7 sources)H/O: vertebral fracture; Translations: [Personal history of (healed) traumatic fracture]EpisodicOther lower respiratory disease (1 source)Personal history of pneumonia (recurrent); Translations: [PERSONAL HX OF PNEUMONIA RECURRENT]Onset: 24-01-3839PrtjsbbxQwzqn nervous system disorders (20 sources)Idiopathic peripheral neuropathy; Translations: [Hereditary and idiopathic neuropathy, unspecified]ChronicOther nervous system disorders (3 sources)Hereditary and idiopathic neuropathy, unspecifiedOnset: 09-05-2021 Resolved: 86-27-0862ZswgsolYznoo nervous system disorders (20 sources)Chronic pain; Translations: [Other chronic pain]ChronicOther nervous system disorders (10 sources)Chronic pain syndrome; Translations: [Chronic pain syndrome]Onset: 26-09-0610ApzdcocVezui nervous system disorders (5 sources)Hereditary peripheral neuropathy; Translations: [Unspecified hereditary and idiopathic peripheral neuropathy]Onset: 06-78-7589KwklerqYxsac nervous system disorders (1 source)Chronic pain syndrome; Translations: [Chronic pain syndrome]Onset: 51-95-9947QjonoxlCoagf nervous system disorders (2 sources)Paresthesia of skin; Translations: [PARESTHESIA OF SKIN]Onset: 36-64-1836IqlhtglxExoee nervous system disorders (20 sources)Paresthesia; Translations: [Paresthesia of skin]EpisodicOther non- traumatic joint disorders (4 sources)Pain in right hip; Translations: [PAIN IN RIGHT HIP]Onset: 10-20-2021 EpisodicOther non-traumatic joint disorders (15 sources)Pain in right knee; Translations: [Right knee pain]06-22-2023 EpisodicOther nutritional; endocrine; and metabolic disorders (1 source)Weight loss; Translations: [Abnormal weight loss]71-34-6900Lutzfvmg Other screening for suspected conditions (not mental disorders or infectious disease) (11 sources)Imaging result abnormal; Translations: [Abnormal findings on diagnostic imaging of other specified body structures]Onset: 60-03-2546Yvxjsdc Other screening for suspected conditions (not mental disorders or infectious disease) (8 sources)Encounter for screening mammogram for malignant neoplasm of breast; Translations: [Encounter for screening for osteoporosis]Onset: 09-19-2017 EpisodicOther skin disorders (3 sources)Rash and other nonspecific skin eruption; Translations: [RASH OTH NONSPECIFIC SKIN ERUPTION]Onset: 34-27-8697OhszzbwvQmpxc upper respiratory disease (1 source)Nasal congestionEpisodicOther upper respiratory infections (6 sources)Sinusitis; Translations: [Chronic sinusitis, unspecified]04-02-2024 ChronicOther upper respiratory infections (12 sources)Acute upper respiratory infection, unspecified; Translations: [Acute maxillary sinusitis]Onset: 04-13-2021 Resolved: 69-78-9813NutbiuwrGbejtytkew disorders (not diabetes) (20 sources)Other specified diseases of pancreas; Translations: [Cyst of pancreas]Onset: 18-08-6174AxtiafqoMaeonxbxc (5 sources)Hemiplegia of dominant side; Translations: [Unspecified hemiplegia affecting dominant side]Onset: 75-93-3814DylgiseIennjbbntttq fracture (20 sources)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; Translations: [Age-related osteoporosis with current pathological fracture, vertebra(e), initial encounter for fracture]Onset: 643528-71-7217Cfwvbudm Comment on above:Problem List clean-up per request of Phys. EHR CmteRegional enteritis and ulcerative colitis (20 sources)Ulcerative colitis; Translations: [Ulcerative colitis, unspecified, without complications]Onset: 04-17-2018 Resolved: 86-14-3568JminxmnIiuncjtv codes; unclassified (20 sources)Tobacco user; Translations: [Tobacco use]Onset: EpisodicResidual codes; unclassified (20 sources)Patient encounter status; Translations: [Encounter for prophylactic measures, unspecified]89-80-9868IbxtdogqTlsvvik on above:Problem List clean-up per request of Phys. EHR CmteResidual codes; unclassified (1 source)Family history of malignant neoplasm of digestive organs; Translations: [FAM HX MALIG NEOPLASM DIGESTIV ORGN]Onset: 06-88-3612Ohgdttpu Residual codes; unclassified (10 sources)Postmenopausal state; Translations: [Asymptomatic menopausal state] EpisodicResidual codes; unclassified (1 source)Tobacco use; Translations: [Tobacco use]EpisodicResidual codes; unclassified (1 source)Asymptomatic menopausal state; Translations: [Asymptomatic menopausal state]EpisodicResidual codes; unclassified (1 source)Family history of cancer of colon; Translations: [Family history of malignant neoplasm of digestiveorgans]63-33-9205DdzijsoxDaxfzrmr codes; unclassified (2 sources)Bilateral lower limb edema; Translations: [Localized edema]12-22-2024 EpisodicSpondylosis; intervertebral disc disorders; other back problems (20 sources)Lumbar spondylosis; Translations: [Spondylosis without myelopathy or radiculopathy, lumbar region]Onset: 45-20-1444GmnuqryBwgfizcnkvk; intervertebral disc disorders; other back problems (20 sources)Backache; Translations: [Dorsalgia, unspecified]Onset: 10-02-2014 Resolved: 999244-37-4406NdkewdanDfzqlsa on above:Problem List clean-up per request of Phys. EHR CmteSubstance-related disorders (20 sources)Nicotine dependence, cigarettes, uncomplicated; Translations: [Nicotine dependence]Onset: 03-18-2014 Resolved: 516585-55-6811MlpedbwWpvexwlgvihz (1 source)PERSONAL HISTORY OF COVID-19; Translations: [PERSONAL HISTORY OF COVID-19]Onset: 48-21-5042Xxshjdxgjqgw (1 source)CONTACT W/AND (SUSP) EXPOS COVID-19; Translations: [CONTACT W/AND (SUSP) EXPOS COVID-19]Onset: 22-08-3924Jtjspmteaqcj (1 source)LOW BACK PAIN, UNSPECIFIED; Translations: [LOW BACK PAIN, UNSPECIFIED] Onset: 03-87-4405Jciwuylbgney (5 sources)Long-term current use of drug therapy; Translations: [Long-term (current) use of other medications]Onset: 48-59-2389Wrspritnhmzp (5 sources)Face, neck, and scalp except eye, abrasion or friction burn, infected; Translations: [Face, neck, and scalp except eye, abrasion or friction burn, infected]Onset: 75-69-5685Hfwnprbgwsts (1 source)Low back pain, unspecified; Translations: [Low back pain, unspecified] Onset: 98-32-4697Kuuezwz tract infections (20 sources)Urinary tract infection, site not specified; Translations: [Urinary tract infectious disease]Onset: 180046-16-1601Wehhukmu Past or Other Problems Problem ClassificationProblemDateDocumented DateEpisodic/ChronicAbdominal hernia (1 source)Diaphragmatic hernia without obstruction or gangrene; Translations: [DIAPH HERNIA W/O OBST/GANGRENE]Onset: 20-18-6571BgjaumbgEysqq posthemorrhagic anemia (11 sources)Acute posthemorrhagic anemia; Translations: [Acute posthemorrhagic anemia] Resolved: 20-59-7865UtaxzfljBcia and rectal conditions (1 source)Other specified diseases of anus and rectumOnset: 01-20-2021 Resolved: 40-95-4702CshckytsHxxyzxxta infection; unspecified site (5 sources)Bacterial infectious disease; Translations: [Bacterial infection, unspecified, in conditions classified elsewhere and of unspecified site]Onset: 54-77-0286UcfzygrgSvcxrxzm mellitus with complications (11 sources)Hyperglycemia due to type 2 diabetes mellitus; Translations: [Type 2 diabetes mellitus with hyperglycemia] Resolved: 96-55-3908JhaqgjjRgdljjwp of mouth; excluding dental (11 sources)Disorder of tongue; Translations: [Other diseases of tongue]Onset: 89-37-2739XyybnzyfH Codes: Fall (1 source)Unspecified fall, initial encounter; Translations: [UNSPECIFIED FALL INITIAL ENCOUNTER]Onset: 88-89-4243WahjtydqL Codes: Natural/environment (1 source)Other and unspecified overexertion or strenuous movements or postures, initial encounter; Translations: [OTH AND UNS OVREXRT/STRN MVMT/POS INT]Onset: 73-39-0392NbdcdggvFirwhvtzeselq symptoms and ill-defined conditions (20 sources)Dysuria; Translations: [Personal history of urinary (tract) infections]Onset: 80-37-2514XoviodhvRmyurxtoy (11 sources)Viral hepatitis B without hepatic coma; Translations: [Unspecified viral hepatitis B without hepatic coma] Resolved: 79-52-5186BqksgzxoKctrdjg and fatigue (11 sources)Other fatigue; Translations: [Malaise and fatigue]Onset: 07-16-2018 EpisodicNeoplasms of unspecified nature or uncertain behavior (11 sources)Neoplasm of uncertain behavior of tongue; Translations: [Neoplasm of uncertain behavior of tongue]Onset: 92-57-6614PwxchwonZihjg aftercare (10 sources)High risk drug monitoring status; Translations: [shelter (current) use of opiate analgesic]Onset: 30-12-3314BwubjflhMjlxe aftercare (1 source)shelter (current) use of opiate analgesic; Translations: [shelter (current) use of opiate analgesic]Onset: 98-53-6693PqmqdjqfZqany circulatory disease (10 sources)Orthostatic hypotension; Translations: [Orthostatic hypotension] Resolved: 19-92-4622XoztvxmqYjnld circulatory disease (1 source)Orthostatic hypotension; Translations: [Orthostatic hypotension] Resolved: 24-16-1060ObqghstcEmgkd connective tissue disease (10 sources)Neuralgia; Translations: [Neuralgia and neuritis, unspecified]Onset: 57-03-5124BdpomjyvAoswq connective tissue disease (10 sources)Spasm; Translations: [Cramp and spasm]Onset: 75-14-0969SzkpxumoZapwv connective tissue disease (1 source)Cramp and spasm; Translations: [Cramp and spasm]Onset: 06-27-2016 EpisodicOther connective tissue disease (1 source)Neuralgia and neuritis, unspecified; Translations: [Neuralgia and neuritis, unspecified]Onset: 63-36-0821HhbkrpjnUedyf female genital disorders (2 sources)Other specified noninflammatory disorders of vagina; Translations: [OTH SPEC NONINFLAMMATORY D/O VAGINA]Onset: 48-88-9925OfypuhipSrkgz female genital disorders (5 sources)Other specified conditions associated with female genital organs and menstrual cycle; Translations:[OTH SPEC COND FE GEN ORG MENST CYCL]Onset: 31-62-9563ZleuvwadYxhht gastrointestinal disorders (4 sources)Abdominal distension (gaseous); Translations: [Abdominal bloating R14.0]Onset: 12-07-2020 Resolved: 01-89-3241EfepyhonTfigl gastrointestinal disorders (1 source)Personal history of other diseases of the digestive system; Translations: [History of ischemic colitis Z87.19]Onset: 12-07-2020 Resolved: 45-88-6465PfordpgbTucgk gastrointestinal disorders (10 sources)Flatulence, eructation and gas pain; Translations: [Abdominal distension (gaseous)] Resolved: 03-07-3283KvjcntlgOeijv gastrointestinal disorders (10 sources)Toxic gastroenteritis; Translations: [Toxic gastroenteritis and colitis] Resolved: 90-32-4180BoatstzqRpkjf gastrointestinal disorders (1 source)Diarrhea, unspecified; Translations: [Diarrhea, unspecified] Resolved: 07-98-2893AtuymrunXnkql gastrointestinal disorders (1 source)Toxic gastroenteritis and colitis; Translations: [Toxic gastroenteritis and colitis] Resolved: 09-35-5375WzanzcqxFzqen hematologic conditions (11 sources)Personal history of diseases of the blood and blood-forming organs and certain disorders involving the immune mechanism; Translations: [Disease of blood AND/OR blood-forming organ] Resolved: 42-41-3426ZhnmhsqxTsbwm inflammatory condition of skin (10 sources)Intertrigo; Translations: [Erythema intertrigo]Onset: 10-20-2016 EpisodicOther inflammatory condition of skin (1 source)Erythema intertrigo; Translations: [Erythema intertrigo]Onset: 33-78-6326MzogerhjPxoqv lower respiratory disease (1 source)Shortness of breath; Translations: [SHORTNESS OF BREATH]Onset: 43-84-7655MsjuubymLmtip non-traumatic joint disorders (3 sources)Pain in right ankle and joints of right foot; Translations: [PAIN IN RIGHT ANKLE]Onset: 17-44-1880DbuqfcsxGhytf nutritional; endocrine; and metabolic disorders (5 sources)Underweight; Translations: [Underweight] Resolved: 64-23-9638KixiytqsBsjjv nutritional; endocrine; and metabolic disorders (10 sources)Abnormal weight loss; Translations: [Abnormal weight loss] Resolved: 45-93-0729OimjcruvJmfmd nutritional; endocrine; and metabolic disorders (1 source)Abnormal weight loss; Translations: [Abnormal weight loss] Resolved: 26-14-4707KxrabajpQkqxyzob codes; unclassified (1 source)Acquired absence of both cervix and uterus; Translations: [ACQUIRED ABSENCE BOTH CERVIX AND UTERUS]Onset: 56-31-2137GdfwaxfiIfkggltb codes; unclassified (1 source)Family history of ischemic heart disease and other diseases of the circulatory system; Translations: [FAM HX ISCHEMIC HRT DZ OTH DZ CIRC]Onset: 85-11-7666GusfutikLoaqgerw codes; unclassified (1 source)Personal history of other specified conditions; Translations: [PERSONAL HISTORY OTH SPEC CONDITION]Onset: 61-98-2480KmjfxwagUtckslpj codes; unclassified (10 sources)Insomnia; Translations: [Insomnia, unspecified] Resolved: 61-89-6075GbmhciegIidvzjkb codes; unclassified (5 sources)Requires influenza virus vaccination; Translations: [Need for prophylactic vaccination and inoculation, Influenza]Onset: 74-95-8525Onmzabvj Residual codes; unclassified (11 sources)Localized edema; Translations: [Localized edema]Onset: 08-30-2015 EpisodicResidual codes; unclassified (1 source)Insomnia, unspecified; Translations: [Insomnia, unspecified] Resolved: 45-12-7846QwgchcgmBomvkoxst and history of mental health and substance abuse codes (13 sources)Personal history of nicotine dependence; Translations: [Nicotine dependence]Onset: 06-08-2022 Resolved: 81-06-3525UozcessaWufl and subcutaneous tissue infections (10 sources)Cellulitis and abscess of face; Translations: [Cellulitis and abscess of face]Onset: 72-66-3310UnfnynsnGeddzji and strains (1 source)Sprain of unspecified ligament of right ankle, initial encounter; Translations: [SPRAIN UNS LIGAMENT RT ANKLE INIT]Onset: 95-53-3596Mhgwwqtp Superficial injury; contusion (2 sources)Contusion of right hip, initial encounter; Translations: [Contusion of lower back and pelvis, initial encounter]Onset: 98-57-4223OxohhyocKizwgvf (11 sources)Syncope and collapse; Translations: [Syncope and collapse]Onset: 95-95-3801FrvmqmpoIifotaklulbv (11 sources)Acute candidiasis of vulva and vagina; Translations: [Acute candidiasis of vulva and vagina] Resolved: 01-07-2022 Results Test NameValueInterpretationReference RangeFacilityEstimated glomerular filtration rate (GFR) non- Americanon 15-28-1543CUZ/1.73 sq M.predicted among non-blacks MDRD (S/P/Bld) [Vol rate/Area]mL/min/{1.73_m2}>=60 mL/min/1.73m [address] [place], [place] [address]Laboratory - Chemistry and Chemistry - challengeon 95-68-1954Knglbnqaoe [Mass/Vol]0.73 mg/dL0.55-1.02[facility] HospitalGFR/1.73 sq M.predicted MDRD (S/P/Bld) [Vol rate/Area] mL/min/{1.73_m2}>=60 mL/min/1.73m [address] [place], [place] [address]CNPNon 75-07-1754YWYFToldxddtj (GASTNO) AFIA GUTIERRES ([id number]) 1955 F Date Time Provider Department 07/15/24 [...] Erwin. She used Dr. Was transferred to [facility]. 2. Weight loss - ICD9: 783.21, [...] She is scheduled 02/14/2024 at 12:30 PM, [facility]. - EGD - THERAPEUTIC, EUS, OR [...] and my recommendations to Dr. Erwin at [facility]. Pt had repeat MRCP 07/05/[address] [...] wanted her MRCP to be done at [facility] facility for my review. I need the images of MRCP (done at [facility]) uploaded to [facility] for my review prior to rendering any opinion. MD Iona Vigil Dawn, RN 07/16/2024 9:10 AM Signed Fannie palacio [facility], they will push images to [facility]. Will monitor. ED Merrill Dawn, RN 07/17/2024 2:[address] Dunlap, GURJIT images available in [facility] to review. ED Merrill Khaled, MD 07/21/2024 [...] dysplasia. Recommend: MRCP in 6 months at [facility] facility. Send my opinion to Dr. Erwin. MD Iona Vigil Dawn, ED 07/22/2024 9:21 AM Signed Recommendations faxed to Dr. Erwin's office. Angela Monson RN Allergies As of Date: 07/15/2024 Noted Allergy Reaction CEFDINIR 06/22/2023 14 - Other: See Comments IBUPROFEN 06/22/2023 16 - Unknown NSAIDS (NON-STEROIDAL ANTI-INFLAM*05/15/2023 14 - Other: See Comments Comments: Other Reaction(s): diarrhea, itching and rash OAWDCRF-TTD-DJD REDUCTASE INHIBIT*01/23/2023 16 - Unknown Comments: Other Reaction(s): Unknown SULFAMETHOXAZOLE-TRIMETHOPRIM 01/23/2023 16 - Unknown ZOLEDRONIC ACID 06/22/2023 14 - Other: See Comments Date Reviewed: 03/21/2024 Reviewed by: Sofy Arriaga RN - Fully Assessed Prim (more content not included)...[facility] MRCPon 19-73-7611WM [facility] Main [place] [address] [place], [place] [address] MRI Report Signed Patient: Afia Gutierres MR#: [id number] : 1955 Acct:[id number] Age/Sex: 69 / F ADM Date: 07/05/24 Loc: Room: Type: [facility] Attending Dr: Horacio Erwin MD Copies [...] Perkins M.D. 07/05/2024 9:55 AM Dictation Location: [place] [address] Transcribed By: [facility] 07/05/24 0955 Dictated By: Vitaly Perkins MD 07/05/2445 Signed By: 07/05/24 0955[facility] Physician GroupMagnetic resonance imaging reportOrdered By: Vitaly Perkins on 21-59-9299Fnqts reportTRINITY [facility] Main [place] [address] [place] [address] MRI Report Signed Patient: Afia Gutierres MR#: [id number] : 1955 Acct:[id number] Age/Sex: 69 / F ADM Date: 5 Loc: MR Room: Type: [facility] Attending Dr: Horacio Erwin MD Copies [...] pancreatic liver or splenic lesions. Fatty infiltration ofthe liver without focal liver lesion. No hydronephrosis. No choledocholithiasis. Unremarkable appearance of the gallbladder. No ascites. No pleural effusion. Moderate size hiatal hernia. MR/MR MRCP IMPRESSION: Progression of the pancreatic head cystic lesion currently jmthjpymh91 mm in greatest dimension. Cystic neoplasm such as IPMN is favored. Sequelaeof pancreatitis or small pseudocysts could also be considered. Impression dictated by: Vitaly Perkins M.D. 07/05/2024 9:55 AM Dictation Location: [facility]- Transcribed By: NOÉ 07/05/24954 Dictated By: Vitaly Perkins MD 07/05/2445 Signed By: 07/05/24 0955 [facility] Work Phone: CNPNon 60-40-1582UFSIWkosxwcbd (GASTNO) AFIA GUTIERRES ([id number]) 1955 F Date Time Provider Department 03/31/24 [...] and my recommendations to Dr. Erwin at [facility]. MD Iona Vigil Dawn, RN 03/31/2024 1:02 [...] Comments: Other Reaction(s): diarrhea, itching and rash ZXIUFOK-HBY-UGJ REDUCTASE INHIBIT*01/23/2023 16 - Unknown Comments: Other [...] (None) Encounter Status:Closed by ANGELA MONSON on 03/31/24[facility] EVALon 18-56-1848YSVU POSTPROC EVALHNO ID: [id number] Author: JACI PERAZA DO Service: Anesthesiology Author Type: Anesthesiologist Type: Anesthesia Postprocedure Evaluation Filed: 03/21/2024 14:29 Note Text: POST ANESTHESIA EVALUATION NOTE : 1955 Procedure Summary Date: 03/21/24 Room / Location: [facility] Endoscopy - ENDO Anesthesia Start: 933 Anesthesia Stop: 1037 Procedure: EGD - THERAPEUTIC, EUS, OR TUBE INTERVENTIONS Diagnosis: Pancreatic cyst (For evaluation of pancreatic cystic neoplasm) Scheduled Providers: Everett Dunlap MD; Jaqueline Bianchi APRN.[employer]; Jaci Peraza DO Responsible Provider: Jaci [...] March 21, 2024 TIME: 2:29 PM CSN: [id number] HospitalANES PRE-OPon 66-21-2455LTXQ PRE-OPHNO ID: [id number] Author: JACI PERAZA DO Service: Critical Care Author Type: Anesthesiologist Type: Anesthesia Preprocedure Evaluation Filed: 03/21/2024 09:32 Note Text: ANESTHESIOLOGY DAY OF SURGERY NOTE : 1955 Procedure Information Date/Time: 03/21/24 1000 Scheduled providers: Everett Dunlap MD; Jaqueline Bianchi APRN.KALIA; Jaci Peraza DO Procedure: EGD - THERAPEUTIC, EUS, OR TUBE INTERVENTIONS Location: [facility] Endoscopy - ENDO There is no [...] March 21, 2024 TIME: 9:10 AM CSN: [id number] Bent Brigham HospitalOLOGY NON-GYNon 03-21-2024 CASE REPORTNoPeter Bent Brigham HospitalComment on above:Order Comment: Specimen Type: SPECIMEN OBTAINED BY [employer] Ordering Facility: [facility] Address: [address] [place] [address] Comment: Medical Cytology Report Case: [id number] Authorizing Provider: Everett Dunlap MD Collected: 03/21/2024 09:58 AM Ordering Location: [facility] Received: 03/21/2024 10:35 AM Endoscopy - ENDO Pathologist: Priya Sumner MD Specimen: Pancreas, pancreatic head cystPerformed By: #### CYTONON #### [facility] CLIA [id number] [place] [address] [place] STATES OF AMERICADIAGNOSIS COMMENTNoPeter Bent Brigham HospitalComment on above:Order Comment: Specimen Type: SPECIMEN OBTAINED BY [employer]IRATION Ordering Facility: [facility] Address: [address] [place], [place] [id number] Comment: This case was reviewed in consultation with Dr. Dorado who agrees with the diagnosis. Performed By: #### CYTONON #### [facility] CLIA [id number] [address] [place] [address] DIAGNOSISNoPeter Bent Brigham HospitalComment on above:Order Comment: Specimen Type: SPECIMEN OBTAINED BY ASPIRATION Ordering Facility: [facility] Address: [address] [place], [place] [address]Result Comment: A. Pancreas, Pancreatic Head Cyst, Fine Needle Aspiration: Neoplastic cells present. Negative for high-grade dysplasia. Performed By: #### CYTONON #### [facility] CLIA [id number] [address] [place] [address] PERFORMING LABCarney HospitalComment on above:Order Comment: Specimen Type: SPECIMEN OBTAINED BY ASPIRATION Ordering Facility: [facility] Address: [address] [place], [place] [address]Result Comment: Technical component, abe teacher screening performed at [facility], [address] [place] [address] CLIA# [id number] Diagnostic interpretation performed at [facility], [address] [place] [address] CLIA# [id number] Turret Lathe Set Up Operator: Wai Pulido M.D.Performed By: #### CYTONON #### [facility] CLIA [id number] [address] [place], [place] [address]GROSS DESCRIPTIONA. PancreasNormCharron Maternity HospitalComment on above:Order Comment: Specimen Type: SPECIMEN OBTAINED BY ASPIRATION Ordering Facility: [facility] Address: [address] [place], [place] [address]Result Comment: 1 cc opaque dark green fluid. ThinPrep prepared.Performed By: #### CYTONON #### [facility] CLIA [id number] [address] [place] [address] Study observation Narrativeon [id number] Patient Name: Afia Gutierres Procedure Date: 03/21/2024 9:09 AM Date of : 1955 Admit Type: Outpatient Age: 68 Room: [place] [address] Gender: Female Note Status: Finalized Attending MD: Everett Dunlap MD, [id number] Procedure: Upper EUS Indications: For evaluation of [...] puncture the cyst b (more content not included)...PROVATIONCleveland Clinic Medina HospitalRadiology Study observation (narrative) [facility] WestTORY PHYSICALon [id number] PHYSICALHNO ID: [id number] Author: EVERETT DUNLAP MD Service: Gastroenterology Author [...] Comments Other Reaction(s): diarrhea, itching and rash Vmyhuok-Pzi-Txj Red* Unknown Other Reaction(s): Unknown Sulfamethoxazole-Tr* Unknown [...] Gutierres DATE: March 21, 2024 TIME: 9:22 [facility] [id number] PROGHNO ID: [id number] Author: SOFY ARRIAGA RN Service: Nursing Author [...] REFERRAL (RECOMMENDATION): None Electronically Signed By: Sofy [facility] EUS 88-53-5104[facility] Patient Name: Afia Gutierres Procedure Date: 03/21/2024 9:09 AM Date of : 1955 Admit Type: Outpatient Age: 68 Room: [place] [address] Gender: Female Note Status: Finalized Attending MD: Everett Dunlap MD, [id number] Procedure: Upper EUS Indications: For evaluation of [...] 3 months. Procedure Code(s): --- Professional --- 28110, Esophagogastroduodenoscopy, flexible, transoral; w (more content not included)...NormalLaw[facility]. [facility] 69-75-0747DJDHUiysmetwy (FVENDO) AFIA GUTIERRES ([id number]) 1955 F Date Time Provider Department 03/20/24 EVERETT DUNLAP FVGIFTY During your visit today, [...] appointment or your prep instructions please call [phone]. If you need to reschedule call [phone]. Allergies As of Date: 03/20/2024 Noted Allergy Reaction CEFDINIR 06/22/2023 14 - Other: See Comments IBUPROFEN 06/22/2023 16 - Unknown NSAIDS (NON-STEROIDAL ANTI-INFLAM*05/15/2023 14 - Other: See Comments Comments: Other Reaction(s): diarrhea, itching and rash BPCRULE-QHY-OVD REDUCTASE INHIBIT*01/23/2023 16 - Unknown Comments: Other [...] (None) Encounter Status:Closed by CARMEN MEADOWS on 03/20/24[facility] [id number] TextNoCleveland Clinic [facility] 88-23-9893YJOK Telephone (KEE) AFIA GUTIERRES ([id number]) 1955 F Date Time Provider Department 02/14/24 EVERETT DUNLAP During your visit today, we recorded the following information about you: Natacha Lopez 02/14/2024 11:34 AM Signed 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 Please call pt back to reschedule. Elham Reid II 02/19/2024 1:09 PM Signed Spoke with patient, rescheduled EUS to 03/21/2024 at [facility]. Elham Mendieta Adm Asst II Allergies As of Date: 02/14/2024 Noted Allergy Reaction CEFDINIR 06/22/2023 14 - Other: See Comments IBUPROFEN 06/22/2023 16 - Unknown NSAIDS (NON-STEROIDAL ANTI-INFLAM*05/15/2023 14 - Other: See Comments Comments: Other Reaction(s): diarrhea, itching and rash YQRPPUQ-AKR-VBQ REDUCTASE INHIBIT*01/23/2023 16 - Unknown Comments: Other [...] Encounter Status:Closed by ELHAM REID II on 02/19/24[facility] 11-28-2084QSUROpxyffppe (FVENDO) AFIA GUTIERRES ([id number]) 1955 F Date Time Provider Department 02/13/24 [...] appointment or your prep instructions please call [phone]. If you need to reschedule call [phone]. Allergies As of Date: 02/13/2024 Noted Allergy Reaction CEFDINIR 06/22/2023 14 - Other: See Comments IBUPROFEN 06/22/2023 16 - Unknown NSAIDS (NON-STEROIDAL ANTI-INFLAM*05/15/2023 14 - Other: See Comments Comments: Other Reaction(s): diarrhea, itching and rash XGFJVAX-YTZ-SSZ REDUCTASE INHIBIT*01/23/2023 16 - Unknown Comments: Other [...] (None) Encounter Status:Closed by CARMEN MEADOWS on 02/13/24[facility] - Chemistry and Chemistry - challengeon 38-03-0137Muetxdxit Ql (U) [facility] HospitalGlucose (U) [Mass/Vol]NegativeMiami Valley HospitalKetones Ql (U)NegativeMiami Valley HospitalpH (U)5.5 [pH][facility] Hospitalpecific gravity (U) [Rel density] >=1.030Mi[facility] Valley HospitalUrobilinogen (U) [Mass/Vol]0.2 mg/dL [facility] HospitalLaboratory - Specimen informationon 01-16-2024 Appearance (U)clearMiami Valley HospitalColor (U)darkyellowMiami Valley HospitalLaboratory - Urinalysison 77-87-9183Ivqpyffqd esterase Test strip Ql (U)traceMiami Valley HospitalNitrite Ql (U)Negative [facility] HospitalProtein Ql (U)30mg/dlMiami Valley HospitalNo Panel Informationon 24-65-5391Pnrmd Occult BloodsmallMiami Valley HospitalUrine Cultureon 96-46-9391Uyiymnna identified Cx Nom (U) <9,000 colonies/ml mixed bacterial skin contaminants 2 Days PERFORMED BY: [facility] [address] [place] [address] PATHOLOGIST HEARING THERAPY DIRECTOR SHELTON NEVAREZ M.D.NormalThe [facility] Physician GroupComment on above:Performed By: #### CUU #### [facility] [address] [place] [address] USAUrine cultureOrdered By: Lilia Barry on 48-88-5000Hvtmwmqk identified Cx Nom (U)Urine cultureMiami Valley HospitalBasophils Auto (Bld) [#/Vol]on 68-82-2954Mmtuityls (Bld) [#/Vol]0.0 10 3/uL0.0-0.1 [facility] HospitalBasophils (Bld) [#/Vol]Automated basophil count 0.0-0.1FWooster Community HospitalBasophils/100 WBC Auto (Bld)on 88-05-7476Keiqoqaod/100 WBC (Bld)0.4 %0.2-2.0[facility] Basophils/100 WBC (Bld)Automated basophil %0.2-2.0[facility] HospitalEosinophils/100 WBC Auto (Bld)on 04-90-8986Tszdqzlnjer/100 WBC (Bld)1.6 % 0.9-7.0[facility] HospitalEosinophils/100 WBC (Bld)Automated eosinophil %0.9-7.0[facility] HospitalErythrocyte distribution width Auto (RBC) [Ratio]on 48-12-0074Ndflxultrma distribution width (RBC) [Ratio]11.8 %11.0-15.0[facility] HospitalErythrocyte distribution width (RBC) [Ratio]Erythrocyte distribution width [Ratio] by Automated count 11.0-15.0[facility] HospitalEstimated glomerular filtration rate (GFR) non- Americanon 75-42-6804WUS/1.73 sq M.predicted among non-blacks MDRD (S/P/Bld) [Vol rate/Area]mL/min/{1.73_m2}>=60 mL/min/1.73m [address] [place], [place] [address]GFR/1.73 sq M.predicted among non-blacks MDRD (S/P/Bld) [Vol rate/Area]Estimated glomerular filtration rate (GFR) non- >=60 mL/min/1.73m [address] [place], [place] [address]Fibrin D-dimer [Presence] in Platelet poor plasma by Latex agglutinationon 48-56-1682Ekgjkw D-dimer LA Ql (PPP)0.62 mg/L FEUHigh<=0.59Mi[facility] HospitalComment on above: RESULTS CALLED TO ELAINE COOL RN @BY Shira Tan [id number] in D- Dimer concentration observed withthromboembolic events can be variable due to localization,size, and age of the thrombus.Therefore, a thromboembolicevent cannot be diagnosed with certainty on the basis of thereference range. D-Dimers may also be elevated for a varietyof disorders including advanced age, , coronarydisease, cancer, liver disease, infection, inflammation,hematoma, DIC, trauma, post-surgery, diabetes, thrombolyticor anticoagulant therapy, stress, and generalizedhospitalization.Fibrin D-dimer LA Ql (PPP)Fibrin D-dimer [Presence] in Platelet poor plasma by Latex agglutination Critically high<=0.59[facility] HospitalComment on above:RESULTS CALLED TO ELAINE COOL RN @BY Shira Tan [id number] in D-Dimer concentration observed withthromboembolic events can be variable due to localization,size, and age of the thrombus.Therefore, a thromboembolicevent cannot be diagnosed with certainty on the basis of thereference range. D-Dimers may also be elevated for a varietyof disorders including advanced age, , coronarydisease, cancer, liver disease, infection, inflammation,hematoma, DIC, trauma, post-surgery, diabetes, thrombolyticor anticoagulant therapy, stress, and generalizedhospitalization.Globulin Calc (S) [Mass/Vol]on 01-14-3226Edghjjby (S) [Mass/Vol]3.4 g/dLMiami Valley HospitalGlobulin (S) [Mass/Vol]Serum globulin measurement by calculation (mass/volume)[facility] HospitalHematocrit Auto (Bld) [Volume fraction]on 58-94-2018Psbovyowyd (Bld) [Volume fraction]40.1 %36.0-48.0[facility] HospitalHematocrit (Bld) [Volume fraction]Hematocrit [Volume Fraction] of Blood by Automated count36.0-48.0[facility] Hemoglobin [Mass/volume] in Bloodon 85-87-9377Gxwpfuwvsr (Bld) [Mass/Vol]13.0 g/dL12.0-16.0[facility] HospitalHemoglobin (Bld) [Mass/Vol] Hemoglobin [Mass/volume] in Blood12.0-16.0[facility] - Chemistry and Chemistry - challengeon 56-31-9990Nezlptf [Mass/Vol] 3.6 g/dL3.4-5.0[facility] HospitalALP [Catalytic activity/Vol]53 U/Z33-668YiyvqhqrbMiami Valley HospitalALT [Catalytic activity/Vol]17 U/L 14-59Mi[facility] HospitalAST [Catalytic activity/Vol]17 U/L15-37 [facility] HospitalBilirubin [Mass/Vol]0.3 mg/dL0.2-1.0[facility] HospitalCalcium [Mass/Vol]9.2 mg/dL8.5-10.1FWooster Community HospitalChloride [Moles/Vol]104 mmol/N21-827KtmzwttbmMiami Valley HospitalCO2 [Moles/Vol]28.1 mmol/L21.0-32.0[facility] Creatinine [Mass/Vol]0.72 mg/dL0.55-1.02[facility] GFR/1.73 sq M.predicted MDRD (S/P/Bld) [Vol rate/Area]mL/min/{1.73_m2}>=60 mL/min/1.73m 2FWooster Community HospitalGlucose [Mass/Vol]121 mg/dLHigh 74-106Mi[facility] HospitalLactate [Moles/Vol]2.4 mmol/LCritically high0.4-2.0[facility] HospitalComment on above:RESULTS CALLED TO FERMIN HART RN @BY Shira Garcia at 2234Lipase [Catalytic activity/Vol]36.0 U/L16.0-77.0[facility] HospitalPotassium [Moles/Vol]3.1 mmol/LLow3.5-5.1FWooster Community HospitalProtein [Mass/Vol]7.0 g/dL6.4-8.2FCleveland Clinic Euclid Hospitalodium [Moles/Vol]142 mmol/O544-347ZfpkebonfMiami Valley HospitalUrea nitrogen [Mass/Vol]14.0 mg/dL 7.0-18.0[facility] HospitalUrea nitrogen/Creatinine [Mass ratio] 19.4 mg/mgMiami Valley HospitalBilirubin Ql (U)NegativeNEGATIVE [facility] HospitalGlucose (U) [Mass/Vol]NegativeNEGATIVEMiami Valley HospitalKetones Ql (U)NegativeNEGMercy Health Perrysburg HospitalpH (U)6.5 [pH]5.0-9.0[facility] Hospitalpecific gravity (U) [Rel density]1.0201.005-1.025Mi[facility] HospitalUrobilinogen Qn (U)0.2 {Skip'U}/dL0.2-1.0[facility] HospitalLaboratory - Hematology and Cell countson 27-00-3544Mlzhofrh granulocytes/100 WBC (Bld)0.2 % 0.0-0.5FWooster Community HospitalLaboratory - Specimen informationon 63-43-6680Xcattvnmyq (U)CLEARCLEARFWooster Community HospitalColor (U) YELLOWYELLOWMiami Valley HospitalLaboratory - Urinalysison 97-68-0060Xpcaaewyf esterase Test strip Ql (U)NegativeNEGATIVEMiami Valley HospitalNitrite Ql (U)NegativeNEGATIVEMiami Valley Hospital Protein Ql (U)NegativeNEG/TRACEMiami Valley HospitalLeukocytes [#/volume] corrected for nucleated erythrocytes in Blood by Automated counon 91-17-0665DCB corrected for nucl RBC Auto (Bld) [#/Vol]5.0 10 3/uL4.0-11.0 [facility] HospitalWBC corrected for nucl RBC Auto (Bld) [#/Vol] Leukocytes [#/volume] corrected for nucleated erythrocytes in Blood by Automated coun4.0-11.0[facility] HospitalLymphocytes Auto (Bld) [#/Vol]on 20-53-9021Ofjqhtuutyc (Bld) [#/Vol]2.2 10 3/uL1.2-3.8[facility] HospitalLymphocytes (Bld) [#/Vol]Lymphocytes [#/volume] in Blood by Automated count1.2-3.8[facility] HospitalLymphocytes/100 WBC Auto (Bld)on 51-24-4619Pingrbksvvv/100 WBC (Bld)43.3 %20.5-60.0[facility] HospitalLymphocytes/100 WBC (Bld)Lymphocytes/100 leukocytes in Blood by Automated count20.5-60.0[facility] Auto (RBC) [Entitic mass]on 96-32-7114FRB (RBC) [Entitic mass]32.3 pg26.7-34.0[facility] (RBC) [Entitic mass]MCH [Entitic mass] by Automated count26.7-34.0 [facility], IncHC Auto (RBC) [Mass/Vol]on 65-86-2464QMSQ (RBC) [Mass/Vol]32.4 g/dL29.9-35.2FDiley Ridge Medical CenterHC (RBC) [Mass/Vol]MCHC [Mass/volume] by Automated count29.9-35.2FDiley Ridge Medical CenterV Auto (RBC) [Entitic vol]on 98-46-6493ZFD (RBC) [Entitic vol] 99.5 rQEkiz26.0-99.0[facility], IncV (RBC) [Entitic vol]MCV [Entitic volume] by Automated jmropIlgy86.0-99.0[facility] HospitalMonocytes Auto (Bld) [#/Vol]on 73-32-9867Halremnly (Bld) [#/Vol]0.4 10 3/uL0.3-0.8[facility] HospitalMonocytes (Bld) [#/Vol]Automated blood monocyte count0.3-0.8[facility] HospitalMonocytes/100 WBC Auto (Bld)on 92-82-8195Ovqkrytyo/100 WBC (Bld)7.4 %1.7-12.0[facility] HospitalMonocytes/100 WBC (Bld)Automated monocyte %1.7-12.0[facility] HospitalNeutrophils Auto (Bld) [#/Vol]on 17-20-4313Nxekrtnekbp (Bld) [#/Vol]2.4 10 3/uL1.4-6.5FWooster Community HospitalNeutrophils (Bld) [#/Vol]Neutrophils [#/volume] in Blood by Automated count1.4-6.5FWooster Community HospitalNeutrophils/100 WBC Auto (Bld)on 01-03-2024 Neutrophils/100 WBC (Bld)47.1 %43.0-75.0[facility] Neutrophils/100 WBC (Bld)Automated neutrophil %43.0-75.0[facility] HospitalNo Panel Informationon 11-18-5233Hljdyqkuvze # (Auto)0.1 10 3/uL 0.0-0.7FWooster Community HospitalImmature Granulocyte # (Auto)0.01 10 3/uL0.00-0.03[facility] HospitalTroponin I High Sensitivity<4.0 pg/mLLow4.0-51.3FWooster Community HospitalComment on above:CUT-OFF POINTS HAVE BEEN ESTABLISHED BASED ON THE FOURTHUNIVERSAL DEFINITION OF MYOCARDIAL INFARCTION. THE UPPERREFERENCE LIMIT (URL) OF TROPONIN, DEFINED THE 99THPERCENTILE OF cTnI DISTRIBUTION IN A REFERENCE POPULATION,HAS BEEN CONFIRMED THE DECISION THRESHOLD FOR MIDIAGNOSIS.99TH PERCENTILE = 51.4 PG/MLNOTE: HIGH-SENSITIVITY TROPONIN ASSAY IS NOT INTENDED TO BEUSED IN ISOLATION BUT SHOULD BE INTERPRETED IN CONJUNCTIONWITH OTHER DIAGNOSTIC AND CLINICAL INFORMATION.Urine Microscopic ReviewNOMiami Valley HospitalUrine Occult BloodNegativeNEGATIVEMiami Valley HospitalPlatelet mean volume Auto (Bld) [Entitic vol]on 98-67-3510Geokexcx mean volume (Bld) [Entitic vol]9.5 fL9.5-13.5FWooster Community HospitalPlatelet mean volume (Bld) [Entitic vol]Platelet mean volume [Entitic volume] in Blood by Automated count 9.5-13.5FWooster Community HospitalPlatelets Auto (Bld) [#/Vol]on 53-33-4794Pjztgbrps (Bld) [#/Vol]160 10 3/rZ521-718YgpwjducwMiami Valley HospitalPlatelets (Bld) [#/Vol]Platelets [#/volume] in Blood by Automated count 150-450Mi[facility] HospitalRBC Auto (Bld) [#/Vol]on 08-41-2938UZQ (Bld) [#/Vol]4.03 10 6/uLLow4.20-5.40[facility] CenterC (Bld) [#/Vol]Erythrocytes [#/volume] in Blood by Automated countLow4.20-5.40[facility] Memorial Hospitalerum or plasma albumin/globulin mass ratioon 01-03-2024 Albumin/Globulin [Mass ratio]1.1 {ratio}[facility] Albumin/Globulin [Mass ratio]Serum or plasma albumin/globulin mass ratio [facility] Hospitalerum or plasma anion gap determinationon 54-39-7545Vxnse gap [Moles/Vol]13.0 mmol/LFWooster Community HospitalAnion gap [Moles/Vol]Serum or plasma anion gap determinationMiami Valley HospitalCNOVon 67-89-7620ATDJRipsoy Visit (KEE) AFIA GUTIERRES ([id number]) 1955 F Date Time Provider Department 12/19/23 [...] 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 [facility] Basophils Auto (Bld) [#/Vol]on 78-04-2475Utehiokyv (Bld) [#/Vol]0.0 10 3/uL 0.0-0.1FWooster Community HospitalBasophils/100 WBC Auto (Bld)on 05-45-2245Fellvgxed/100 WBC (Bld)0.3 %0.2-2.0[facility] Eosinophils/100 WBC Auto (Bld)on 77-27-6523Swvrgpirdhd/100 WBC (Bld)0.9 %0.9-7.0 [facility] HospitalErythrocyte distribution width Auto (RBC) [Ratio]on 00-79-5448Ltlfenpzovh distribution width (RBC) [Ratio]11.8 %11.0-15.0 [facility] HospitalEstimated glomerular filtration rate (GFR) non- Americanon 33-61-3024VWP/1.73 sq M.predicted among non-blacks MDRD (S/P/Bld) [Vol rate/Area]mL/min/{1.73_m2}>=60 mL/min/1.73m 2FWooster Community HospitalGlobulin Calc (S) [Mass/Vol]on 45-51-9389Jexwelvx (S) [Mass/Vol] 3.5 g/dLMiami Valley HospitalHematocrit Auto (Bld) [Volume fraction] on 79-78-0079Nmqxgqdwqs (Bld) [Volume fraction]42.8 %36.0-48.0[facility] HospitalHemoglobin [Mass/volume] in Bloodon 67-29-2718Rbkjacytdm (Bld) [Mass/Vol]13.9 g/dL12.0-16.0[facility] HospitalLaboratory - Chemistry and Chemistry - challengeon 07-37-9271Mlzupvtbm Ql (U)NegativeNEGATIVE [facility] HospitalGlucose (U) [Mass/Vol]NegativeNEGATIVEMiami Valley HospitalKetones Ql (U)NegativeNEGATIVEMiami Valley HospitalpH (U)7.0 [pH]5.0-9.0[facility] Hospitalpecific gravity (U) [Rel density]1.0151.005-1.025[facility] HospitalUrobilinogen Qn (U)0.2 {Skip'U}/dL0.2-1.0[facility] HospitalAlbumin [Mass/Vol]3.7 g/dL3.4-5.0[facility] HospitalALP [Catalytic activity/Vol]54 U/J94-988JjbgvefreMiami Valley HospitalALT [Catalytic activity/Vol]18 U/X56-79HsuorbzsvMiami Valley HospitalAST [Catalytic activity/Vol]17 U/S90-30KtjjgxamqMiami Valley HospitalBilirubin [Mass/Vol]0.3 mg/dL0.2-1.0[facility] HospitalCalcium [Mass/Vol]9.4 mg/dL 8.5-10.1FWooster Community HospitalChloride [Moles/Vol]99 mmol/L98-107 [facility] HospitalCO2 [Moles/Vol]27.4 mmol/L21.0-32.0[facility] HospitalCreatinine [Mass/Vol]0.78 mg/dL0.55-1.02[facility] HospitalGFR/1.73 sq M.predicted MDRD (S/P/Bld) [Vol rate/Area] mL/min/{1.73_m2}>=60 mL/min/1.73m 2FWooster Community HospitalGlucose [Mass/Vol]151 mg/aANtkg76-247FloutcevvMiami Valley HospitalPotassium [Moles/Vol]3.5 mmol/L3.5-5.1FWooster Community HospitalProtein [Mass/Vol] 7.2 g/dL6.4-8.2FCleveland Clinic Euclid Hospitalodium [Moles/Vol]137 mmol/L 136-145[facility] HospitalUrea nitrogen [Mass/Vol]12.0 mg/dL 7.0-18.0[facility] HospitalUrea nitrogen/Creatinine [Mass ratio] 15.4 mg/mgMiami Valley HospitalLaboratory - Hematology and Cell countson 86-53-0801Wlorcvly granulocytes/100 WBC (Bld)0.3 %0.0-0.5FWooster Community HospitalLaboratory - Microbiology and Antimicrobial susceptibilityon 11-24-5366ZEWQ-CoV-2 (COVID-19) RNA JOSH+probe Ql (Unsp spec) NegativeNEGATIVEMiami Valley HospitalComment on above:This test has not been FDA cleared or approved, but has beenauthorized by the FDA under an Emergency Use Authorization(EUA) for use by authorized laboratories certified underIA that meet the requirements to perform moderate or highcomplexity testing. This test has been authorized only forthe detection of proteins from SARS-CoV-2, not for any otherviruses or pathogens. The emergency use of this t est isauthorized for the duration of the declaration thatcircumstances exist justifying the authorization ofemergency use of in vitro diagnostic tests for detectionand/or diagnosis of Covid-19 under section 564(b)(1) of theAct, 21 U.S.C. 360bbb-3(b)(1), unless the declaration isterminated or authorization is revoked sooner.Laboratory - Specimen informationon 99-96-1206Lqahafocpx (U)CLEAR CLEARMiami Valley HospitalColor (U)LT. YELLOWYELLOWMiami Valley HospitalLaboratory - Urinalysison 51-72-7155Gciqzadjs esterase Test strip Ql (U)NegativeNEGATIVEMiami Valley HospitalNitrite Ql (U) NegativeNEGATIVEMiami Valley HospitalProtein Ql (U)NegativeNEG/TRACE [facility] HospitalLeukocytes [#/volume] corrected for nucleated erythrocytes in Blood by Automated counon 12-98-3528VQK corrected for nucl RBC Auto (Bld) [#/Vol]5.7 10 3/uL4.0-11.0[facility] Lymphocytes Auto (Bld) [#/Vol]on 31-61-7873Vahdpbqzjrk (Bld) [#/Vol]1.0 10 3/uL Low1.2-3.8[facility] HospitalLymphocytes/100 WBC Auto (Bld)on 41-29-7393Sdidgjioeny/100 WBC (Bld)18.0 %Low20.5-60.0[facility], IncH Auto (RBC) [Entitic mass]on 26-77-2339GUV (RBC) [Entitic mass]32.4 pg 26.7-34.0[facility] HospitalMCHC Auto (RBC) [Mass/Vol]on 61-93-5780JTEB (RBC) [Mass/Vol]32.5 g/dL29.9-35.2FWooster Community HospitalMCV Auto (RBC) [Entitic vol]on 30-83-7816HGJ (RBC) [Entitic vol]99.8 fL High81.0-99.0[facility] HospitalMonocytes Auto (Bld) [#/Vol]on 00-19-5623Xfvfvqzkt (Bld) [#/Vol]0.3 10 3/uL0.3-0.8[facility] HospitalMonocytes/100 WBC Auto (Bld)on 20-88-8990Pqmjobtot/100 WBC (Bld)5.1 % 1.7-12.0[facility] HospitalNeutrophils Auto (Bld) [#/Vol]on 52-28-7056Eiumrvkzicc (Bld) [#/Vol]4.3 10 3/uL1.4-6.5FWooster Community HospitalNeutrophils/100 WBC Auto (Bld)on 86-40-9795Ykdvseghdkv/100 WBC (Bld)75.4 % High43.0-75.0[facility] HospitalNo Panel Informationon 12-12-2023 Urine Microscopic ReviewNOMiami Valley HospitalUrine Occult Blood NegativeNEGATIVEMiami Valley HospitalEosinophils # (Auto)0.1 10 3/uL 0.0-0.7FWooster Community HospitalImmature Granulocyte # (Auto)0.02 10 3/uL0.00-0.03[facility] HospitalPlatelet mean volume Auto (Bld) [Entitic vol]on 87-85-3171Hxgizgto mean volume (Bld) [Entitic vol]9.1 fLLow 9.5-13.5FWooster Community HospitalPlatelets Auto (Bld) [#/Vol]on 28-74-9381Oaxgnjbkt (Bld) [#/Vol]168 10 3/aW917-992RlresowwxMiami Valley HospitalRBC Auto (Bld) [#/Vol]on 21-54-9896DUP (Bld) [#/Vol]4.29 10 6/uL4.20-5.40 [facility] Hospitalerum or plasma albumin/globulin mass ratioon 95-69-7235Rkrxfru/Globulin [Mass ratio]1.1 {ratio}[facility] Hospitalerum or plasma anion gap determinationon 85-09-1204Bukmi gap [Moles/Vol] 14.1 mmol/LFWooster Community HospitalCNPNon 32-92-7249WKCAHaidbwgbd (GASTNO) AFIA GUTIERRES ([id number]) 1955 F Date Time Provider Department 11/30/23 [...] Awaiting MRCP images to be uploaded to [facility]. Schedule follow-up visit in my pancreas clinic [...] (None) Encounter Status:Closed by BETH SUMMERS on 12/04/23NoMercy Health St. Elizabeth Youngstown HospitalISTAT XRay CREon 13-95-3557KQAPW GFR> 60.0[facility] Physician GroupComment on above:Result Comment: PERFORMED BY: [place] [address] PATHOLOGIST HEARING THERAPY DIRECTOR SHELTON NEVAREZ M.D.Performed By: #### ISCRE #### [place] [address] USAMR abdomen wo/w conon 54-50-2811LH abdomen wo/w con [facility] Main [place] [place] [address] MRI Report Signed Patient: Afia Gutierres MR#: [id number] : 1955 Acct:[id number] Age/Sex: 68 / F ADM Date: 11/02/23 Loc: MR Room: Type: [facility] Attending Dr: Horacio Erwin MD Copies [...] Wai Denise M.D.11/02/2023 8:02 PM Dictation Location: [facility]--13 Transcribed By: [facility] 11/02/232001 Dictated By: Wai Denise II, MD 11/02/231953 Signed By: 11/02/23 [facility] ClinicsNoAtrium Health Union Physician GroupNo Panel InformationOrdered By: Horacio Erwin on 57-95-6792Ssxqmxk Estimated GFR (eGFR)> 60.0[facility] HospitalWhole blood creatinine measurementOrdered By: Horacio Erwin on 89-16-9997Dnqhyldyts [Mass/Vol]0.5 mg/dLLow0.6-1.3FWooster Community HospitalComment on above:ER/ESD physician is notified/shown all ISTAT results.Critical values may be confirmed by laboratorytesting ifdeemed necessary by ER attending doctor.Result Comment: ER/ESD physician is notified/shown all ISTAT results. Critical values may be confirmed by laboratory testing if deemed necessary by ER attending doctor.Performed By: #### ISCRE #### [place] [address] USALaboratory - Chemistry and Chemistry - challengeon 89-17-3918Nxydvorfi Ql (U)NegativeMiami Valley HospitalGlucose (U) [Mass/Vol]NegativeMiami Valley HospitalKetones Ql (U)Negative [facility] HospitalpH (U)5 [pH][facility] Specific gravity (U) [Rel density]1.025[facility] Urobilinogen (U) [Mass/Vol]0.2 mg/dLMiami Valley HospitalLaboratory - Specimen informationon 20-46-8465Nzmfehimaw (U)cloudyMiami Valley HospitalColor (U)DarkYellowMiami Valley HospitalLaboratory - Urinalysison 47-03-9706Upmpraxzg esterase Test strip Ql (U)NegativeMiami Valley HospitalNitrite Ql (U)PositiveMi[facility] Valley Hospital Protein Ql (U)NegativeMiami Valley HospitalNo Panel Informationon 42-75-9921Bymwa Occult BloodNegativeMiami Valley HospitalUrine culture routineOrdered By: Nettie Iqbal on 71-72-6688Ehfggxzs identified Cx Nom (U)Citrobacter freundii complexMiami Valley HospitalIR VERTEBROPLASTY CERVICOTHORACICon 02-14-1319YX VERTEBROPLASTY CERVICOTHORACIC IMPRESSION: Technically successful vertebroplasty of [...] patient continues to have pain later, a right- sided approach may be obtained and further cement [...] of the vertebral body of T11 and X14isxdxmjmu bodies were marked under fluoroscopic imaging. The back was prepped and draped in a sterile fashion. Local anesthetic using 1% can was injected into the site. Following that 11-gauge vertebroplasty bone access needles were advanced through theleft pedicles of T11 and T12. Following that [...] Signed by: Ricardo Carbajal MD 06/18/23 Final resultNoAdventHealth AvistaIR VERTEBROPLASTY EACH ADDITIONAL on 34-05-7885JT VERTEBROPLASTY EACH ADDITIONALIMPRESSION: Technically successful vertebroplasty of the T11 and T12 vertebral bodies using real-time biplane fluoroscopy using the left mono pedicular approach with curve needles. Note that after starting injection of the T11 vertebral body there appear to be cement protrusion into the disc, therefore after the left hemibody was filled, further injection was stopped. If patient continues to have pain later, a right- sided approach may be obtained and further cement [...] of the vertebral body of T11 and A11hosmxsgxf bodies were marked under fluoroscopic imaging. The back was prepped and draped in a sterile fashion. Local anesthetic using 1% can was injected into the site. Following that 11-gauge vertebroplasty bone access needles were advanced through theleft pedicles of T11 and T12. Following that [...] Signed by: Ricardo Carbajal MD 06/18/23 Final resultNormSwedish Medical CenterCBCon 09-55-1197Ffvheervsnl distribution width (RBC) [Ratio]13.2 %Hbojtl89.8-14.4[facility] Comment on above:Performed By: #### CBC, PT, CP #### [address] [place] [address] [employer] Hand Engraver: Janna Monzon MDHematocrit (Bld) [Volume fraction]44.8 %Normal 36.3-47.1MKettering HealthComment on above:Performed By: #### ANDREW, PT, CP #### [address] [place] [address] [employer] Hand Engraver: Janna Monzon MDHemoglobin (Bld) [Mass/Vol]14.2 g/dLNormal 11.9-15.1Mmccullough-hyde memorial hospitaly Gaylord HospitalComment on above:Performed By: #### CBC, PT, CP #### [address] [place] [address] [employer] Hand Engraver: EUSEBIA HartCH (RBC) [Entitic mass]31.8 umZfanll56.2-33.5 [facility] CenterComment on above:Performed By: #### CBC, PT, CP #### [address] [place] [address] [employer] Engraver: INO HartC (RBC) [Mass/Vol]31.7 g/kJVysmxv33.4-34.8[facility] CenterComment on above:Performed By: #### CBC, PT, CP #### [address] [place] [address] [employer] Hand Engraver: JUAN Hart (RBC) [Entitic vol]100.2 hOAldlxd82.6-102.9 [facility] CenterComment on above:Performed By: #### CBC, PT, CP #### [address] [place] [address] [employer] Engraver: ARIEL Hart Automated0.0 per 100 WBCNormal0.0[facility] Health CenterComment on above:Performed By: #### CBC, PT, CP #### [address] [place] [address] [employer] Hand Engraver: Jimmy Hart mean volume (Bld) [Entitic vol]9.9 fL Normal8.1-13.5[facility] Health CenterComment on above:Performed By: #### ANDREW, PT, CP #### [address] [place], [place] [address] [employer] Engraver: Amando Hart (Bld) [#/Vol]167 10*3/qDWxsmgi445-178 [facility] CenterComment on above:Performed By: #### CBC, PT, CP #### [address] [place], [place] [address] [employer] Engraver: CHLOE Hart (Bld) [#/Vol]4.47 10*6/uLNormal3.95-5.11[facility] CenterComment on above:Performed By: #### CBC, PT, CP #### [address] [place], [place] [address] [employer] Engraver: MAGDALENE Hart (Bld) [#/Vol]4.4 10*3/uLNormal3.5-11.3Mer[facility] [address] Lane HospitalComment on above:Performed By: #### CBC, PT, CP #### [address] [place], [place] [address] [employer] Engraver: Janna Monzon MDComp Metabolic Profon 49-32-7997Fmnkpfg [Mass/Vol] 4.3 g/dLNormal3.5-5.2Mer[facility] [address] Lane HospitalComment on above:Performed By: #### CBC, PT, CP #### [address] [place] [address] [employer] Engraver: Janna Monzon MDAlbumin/Glob Ratio1.8Bjoblw8.0-2.5Mer[facility] Lane HospitalComment on above:Performed By: #### ANDREW, PT, CP #### [address] [place] [address] [employer] Engraver: Janna Monzon MDAlkaline Phos78 U/UIkrkkg52-474Jtxdv Long Lane HospitalComment on above:Performed By: #### ANDREW, PT, CP #### [address] [place] [address] [employer] Engraver: Janna Monzon MDALT [Catalytic activity/Vol]11 U/LNormal5-33Mer[facility] Long Lane HospitalComment on above:Performed By: #### CBC, PT, CP #### [address] [place] [address] [employer] Engraver: Janna Monzon MDAnion gap [Moles/Vol]8 mmol/LLow9-17MerSumma Health Akron Campus HospitalComment on above:Performed By: #### CBC, PT, CP #### [address] [place] [address] [employer] Engraver: Janna Monzon MDAST [Catalytic activity/Vol]21 U/LNormal<32Mer[facility] [address] Lane HospitalComment on above:Performed By: #### CBC, PT, CP #### [address] [place] [address] [employer] Engraver: Janna Monzon MDBilirubin [Mass/Vol]0.2 mg/dLLow0.3-1.2MAultman Hospital HospitalComment on above:Performed By: #### CBC, PT, CP #### [address] [place], [facility] [employer] Engraver: Janna Monzon MDBUN/CRE Zvpcs21Kzle5-63IclxiFulton County Health Center Comment on above:Performed By: #### CBC, PT, CP #### [address] [place], [facility]83 [employer] Engraver: NICOLÁS Hartalcium [Mass/Vol]9.3 mg/dLNormal8.6-10.4[facility] Health CenterComment on above:Performed By: #### CBC, PT, CP #### [address] [place] [address] [employer] Hand Engraver: NICOLÁS Harthloride [Moles/Vol]103 mmol/QCflwia43-452OklbrFulton County Health CenterComment on above:Performed By: #### CBC, PT, CP #### [address] [place], [facility]83 [employer] Engraver: Janna Monzon MDCO2 [Moles/Vol]29 mmol/TRqbopa54-44Ewoqq [facility]iffin HospitalComment on above:Performed By: #### CBC, PT, CP #### [address] [place], [place] [address] [employer] Engraver: NICOLÁS Hartreatinine [Mass/Vol]0.5 mg/dLNormal0.5-0.9[facility] HospitalComment on above:Performed By: #### CBC, PT, CP #### [address] [place] [address] [employer] Engraver: Janna Monzon MDGFR/1.73 sq M.predicted among non-blacks MDRD (S/P/Bld) [Vol rate/Area]mL/min/{1.73_m2}Normal>60MerSumma Health Akron Campus HospitalComment on above:Result Comment: These results are not intended for [...] or following therapy that affects renal tubular secretion.Performed By: #### CBC, PT, CP #### [address] [place] [address] [employer] Engraver: Janna Monzon MDGlucose [Mass/Vol]77 mg/mHYxjtma27-87Jepsd [address] Lane HospitalComment on above:Performed By: #### CBC, PT, CP #### [address] [place] [address] [employer] Hand Engraver: THOMAS Hartotassium [Moles/Vol]4.0 mmol/LNormal3.7-5.3[facility] [address] HospitalComment on above:Performed By: #### CBC, PT, CP #### [address] [place] [address] [employer] Engraver: Janna Monzon MDProtein [Mass/Vol]7.7 g/dLNormal6.4-8.3[facility] [address] HospitalComment on above:Performed By: #### CBC, PT, CP #### [address] [place] [address] [employer] Hand Engraver: Janna Monzon MDSodium [Moles/Vol]140 mmol/KFxmssn261-918Vduyi [facility]iffin HospitalComment on above:Performed By: #### CBC, PT, CP #### [facility] [address] [place] [address] Dr[place], [place] [address] [employer] Engraver: Cassia Hrat nitrogen [Mass/Vol]15 mg/dLNormal8-[facility] Health CenterComment on above:Performed By: #### CBC, PT, CP #### [address] [place], [facility]83 [employer] Hand Engraver: He Hart 75-48-1143FMG Coag (PPP) [Relative time]0.9 {INR}NormalFulton County Health CenterComment on above:Result Comment: Therapeutic Range: Moderate Anticoagulant Intensity: INR = 2.0-3.0 High Anticoagulant Intensity: INR = 2.5-3.5Performed By: #### CBC, PT, CP #### [address] [place], [facility]83 [employer] Engraver: NIKI Hart Coag (PPP) [Time]12.3 iXuzcwm98.7-14.1MKettering HealthComment on above:Performed By: #### CBC, PT, CP #### [address] [place], [facility]83 [employer] Engraver: Janna Monzon MDAutkimberly erythrocytes count in urine sediment (number/area)Ordered By: Nettie Iqbal on 59-04-4097RLC Auto (Urine sed) [#/Area] 3-4 [HPF]0-4FWooster Community HospitalAutomated leukocytes count in urine sediment (number/area)Ordered By: Nettie Iqbal on 17-52-2998VRD Auto (Urine sed) [#/Area]0-1 [HPF]0-4FWooster Community HospitalAutomated urine sediment calcium oxalate crystal count by microscopy (number/high powOrdered By: Nettie Iqbal on 62-93-5432Xzetvfa oxalate crystals LM.HPF (Urine sed) [#/Area] 3+ [HPF][facility] HospitalBilirubin Test strip Ql (U)Ordered By: Nettie Iqbal on 43-93-3305Dfzruruyc Ql (U)NegativeNegNationwide Children's HospitalColor Auto (U)Ordered By: Nettie Iqbal on 96-18-8657Esgfh (U)Dark yellowYellowMiami Valley HospitalKetones Auto test strip (U) [Mass/Vol]Ordered By: Nettie Iqbal on 86-15-2715Snososs (U) [Mass/Vol]Trace NegativeMiami Valley HospitalLaboratory - UrinalysisOrdered By: Nettie Iqbal on 34-45-8860Owmvomu casts LM Ql (Urine sed)0-8 [LPF]0-8[facility] HospitalNitrite Test strip Ql (U)Ordered By: Nettie Iqbal on 91-92-8953Hezqehm Ql (U)NegativeNegNationwide Children's HospitalProtein Auto test strip (U) [Mass/Vol]Ordered By: Nettie Iqbal on 96-11-0491Oadasiq (U) [Mass/Vol]NegativeNegThe University of Toledo Medical Centerpecific gravity Auto test strip (U) [Rel density]Ordered By: Nettie Iqbal on 65-82-2412Kmpkadfx gravity (U) [Rel density]1.0221.001-1.030[facility] Squamous epithelial cells detection in urine sediment by light microscopyOrdered By: Nettie Iqbal on 75-91-8942Eelvlaucvj cells.squamous LM Ql (Urine sed)0-1 [HPF]0-2FWooster Community HospitalUrine bacteria detection by automated methodOrdered By: Nettie Iqbal on 74-17-5130Kybascwo Auto Ql (U)1+None Seen [facility] HospitalUrine clarity by refractometry automatedOrdered By: Nettie Iqbal on 84-16-9576Idrycol Refractometry automated (U)CloudyClear [facility] HospitalUrine culture routineOrdered By: Nettie Iqbal on 01-67-1560Gsivpbev identified Cx Nom (U)Strep agalactiae - (group b)[facility] HospitalUrine glucose measurement by automated test strip (mass/volume)Ordered By: Nettie Iqbal on 01-44-2798Kwsvsfc Auto test strip (U) [Mass/Vol]Normal mg/dLNormalMiami Valley HospitalUrine hemoglobin detection by automated test stripOrdered By: Nettie Iqbal on 01-11-2023 Hemoglobin Auto test strip Ql (U)NegativeNegativeMiami Valley HospitalUrine leukocyte esterase detection by automated test stripOrdered By: Nettie Iqbal on 73-69-5053Umissezut esterase Auto test strip Ql (U)Negative NegativeMiami Valley HospitalUrine sediment crystal identification by light microscopyOrdered By: Nettie Iqbal on 23-64-9998Ygbclzbr LM Nom (Urine sed)N/AFWooster Community HospitalUrobilinogen Auto test strip (U) [Mass/Vol]Ordered By: Nettie Iqbal on 11-22-5992Cevbbgqefpwx (U) [Mass/Vol] Normal mg/dLNormMercy Health Allen HospitalpH Auto test strip (U)Ordered By: Nettie Iqbal on 73-03-6135cG (U)5.5 [pH]5.0-9.0[facility] Note-Physicianon 49-46-5717XL Note-Physician [id number]#1.00TIFFNoJoint Township District Memorial HospitalAutomated erythrocytes count in urine sediment (number/area)Ordered By: Nettie Iqbal on 54-59-5083EYD Auto (Urine sed) [#/Area]20-49 [HPF]0-4FWooster Community HospitalAutomated leukocytes count in urine sediment (number/area)Ordered By: Nettie Iqbal on 17-32-6982OEY Auto (Urine sed) [#/Area] Innumerable [HPF]0-4FWooster Community HospitalAutomated urine sediment calcium oxalate crystal count by microscopy (number/high powOrdered By: Nettie Iqbal on 13-83-8663Iqdpzmn oxalate crystals LM.HPF (Urine sed) [#/Area]Rare [HPF][facility] HospitalBilirubin Test strip Ql (U)Ordered By: Nettie Iqbal on 54-39-2235Eeyhtjfai Ql (U)NegativeNegNationwide Children's HospitalCasts typing in urine sediment by light microscopyOrdered By: Nettie Iqbal on 31-47-2447Kbqud LM Nom (Urine sed)None seen [LPF]None Seen [facility] HospitalColor Auto (U)Ordered By: Nettie Iqbal on 72-16-0006Puynz (U)YellowYellowMiami Valley HospitalKetones Auto test strip (U) [Mass/Vol]Ordered By: Nettie Iqbal on 33-33-6669Zchhkjf (U) [Mass/Vol]1+NegativeMiami Valley HospitalLaboratory - Urinalysis Ordered By: Nettie Iqbal on 85-53-0560Rqbcvit casts LM Ql (Urine sed)None seen [LPF]0-8[facility] HospitalNitrite Test strip Ql (U)Ordered By: Nettie Iqbal on 90-82-1148Deaykpw Ql (U)NegativeNegNationwide Children's HospitalProtein Auto test strip (U) [Mass/Vol]Ordered By: Nettie Iqbal on 59-47-0924Aesbmgb (U) [Mass/Vol]Trace mg/dLNegThe University of Toledo Medical Centerpecific gravity Auto test strip (U) [Rel density]Ordered By: Nettie Iqbal on 40-68-0034Xoksvfdf gravity (U) [Rel density]1.0081.001-1.030[facility] Memorial Hospitalquamous epithelial cells detection in urine sediment by light microscopyOrdered By: Nettie Iqbal on 96-84-1448Tezpjovcgv cells.squamous LM Ql (Urine sed)1-2 [HPF]0-2FWooster Community HospitalUrine bacteria detection by automated methodOrdered By: Nettie Iqbal on 68-10-3852Uuyiusrd Auto Ql (U)4+None SeenMiami Valley HospitalUrine clarity by refractometry automatedOrdered By: Nettie Iqbal on 07-00-0078Kodomrx Refractometry automated (U)TurbidCleProtestant HospitalUrine culture routineOrdered By: Nettie Iqbal on 97-70-4932Jaxwwvkh identified Cx Nom (U)Klebsiella oxytocaMiami Valley HospitalUrine glucose measurement by automated test strip (mass/volume)Ordered By: Nettie Iqbal on 11-20-2022 Glucose Auto test strip (U) [Mass/Vol]Normal mg/dLNormalMiami Valley HospitalUrine hemoglobin detection by automated test stripOrdered By: Nettie Iqbal on 44-53-8048Sfmdcswton Auto test strip Ql (U)3+NegativeMiami Valley HospitalUrine leukocyte esterase detection by automated test stripOrdered By: Nettie Iqbal on 04-34-7339Zhdohrfer esterase Auto test strip Ql (U)4+NegativeMiami Valley HospitalUrobilinogen Auto test strip (U) [Mass/Vol]Ordered By: Nettie Iqbal on 40-09-1577Ftpskfhvzgjz (U) [Mass/Vol] Normal mg/dLNormalMiami Valley HospitalpH Auto test strip (U)Ordered By: Nettie Iqbal on 85-95-8065xW (U)7.5 [pH]5.0-9.0[facility] HospitalCOVID Quick Testingon 99-67-6300NnlhfvDktxtrglDzfqw Letyano Other PROF CHEM 8 (BAS METB)on 10-90-8708Mslgj gap [Moles/Vol]18.4 mmol/LNormalThe [facility] County Medical CenterComment on above:Performed By: #### BMP, TSH #### [facility] [address] [address] [address] David CannonCalcium [Mass/Vol]9.5 mg/dLNormal8.5-10.1The [facility] Comment on above:Performed By: #### BMP, TSH #### [facility] [address] [place] [address] Dr. David CannonChloride [Moles/Vol]104 mmol/JWxcmed82-965TzkAdena Regional Medical Center Comment on above:Performed By: #### BMP, TSH #### [facility] [address] [address] [address] David CannonCO2 [Moles/Vol]23.5 mmol/BSijqzt30.0-32.0The [facility] Comment on above:Performed By: #### BMP, TSH #### [facility] [address] [address] [address] David CannonCreatinine [Mass/Vol]0.87 mg/dLNormal0.55-1.02The [facility] Medical CenterComment on above:Performed By: #### BMP, TSH #### [facility] [address] [address] [address] Hernandez ChangEGFR-AF BOLIVIAN>60Normal>=60The [facility] Medical CenterComment on above:Performed By: #### BMP, TSH #### [facility] [address] [place] [address] Dr. Hernandez ChangEGFR-NON AF BOLIVIAN>60Normal>=60The [facility] Medical CenterComment on above:Performed By: #### BMP, TSH #### [facility] [address] [place] [address] Dr. David CannonGlucose [Mass/Vol]142 mg/dLCritically remh77-207Pwb [facility] CenterComment on above:Performed By: #### BMP, TSH #### [facility] [address] [place] [address] Dr. David CannonPotassium [Moles/Vol]3.9 mmol/LNormal3.5-5.1[facility] Comment on above:Performed By: #### BMP, TSH #### [facility] [address] [place] [address] Dr. David CannonSodium [Moles/Vol]142 mmol/CXemvmk097-161Cac [facility] Comment on above:Performed By: #### BMP, TSH #### [facility] [address] [place] [address] Dr. David CannonUrea nitrogen [Mass/Vol]15.0 mg/dLNormal7.0-18.0The [facility] Medical CenterComment on above:Performed By: #### BMP, TSH #### [facility] [address] [place] [address] Dr. David Yousif nitrogen/Creatinine [Mass ratio]17.2 mg/mgNormalThe [facility] Medical CenterComment on above:Performed By: #### BMP, TSH #### [facility] [address] [place] [address] Dr. David Sequeira 45-46-7766WPE5.753 uIU/mLNormal0.358-3.740The [facility] Medical CenterComment on above:Performed By: #### BMP, TSH #### [facility] [address] [place] [address] Dr. David CannonVITAMIN B12on 59-71-9336Vedbipbyz (Vitamin B12) [Mass/Vol]938.0 pg/fIHmkhkh329.0-986.0[facility] Medical CenterComment on above:Performed By: #### VITB12 ####[facility] [address] [place], [place] [address]CqGerry CannonVITAMIN D 25 OHon 68-17-5777MYK D 25-OH45.3 ng/mLNormalThe [facility] Medical CenterComment on above:Performed By: #### VITAD ####[facility] [address] [place], [place] [address]I[address]. David CannonVIT D RANGES SEE BELOWBluffton HospitalComment on above:Result Comment: <20 ng/mL Vit D deficient 20 - <30 ng/mL Vit D insufficient 30 - 100 ng/mL Vit D sufficient >100 ng/mL Potential ToxicityPerformed By: #### VITAD ####[facility] [address] [address]DrGerry CannonXR HIP RT 2 3V W PELVISon 15-83-5725GQ HIP RT 2 3V W PELVISEXAM: Right hip and AP of the pelvis [...] Electronically authenticated by: JANNA HASSAN Date: 2022-07-27 21:48Bluffton HospitalMG MAMM SCREEN 3D ERIC CADon 36-85-7719QA MAMM SCREEN 3D ERIC CAD Patient: AFIA GUTIERRES Exam Date: 07/20/2022 : 1955 Gender:F Ordering : DR PHANI PRUITT D.O. Admission #: [id number] Family : Order #: [id number] CLICK HERE TO VIEW EXAM RADIOLOGY REPORT [...] colon cancer at age 72. LOCATION: [facility] BREAST COMPOSITION: Scattered areas fibroglandular [...] by: Celia Cormier M.D. on 07/20/2022 at 14:09Bluffton HospitalXR DEXA BONE DENSITYon 81-02-9147WZ DEXA BONE DENSITYEXAMINATION: XR DEXA BONE DENSITY, 07/20/2022 1:15 PM [...] Electronically authenticated by: CELIA CORMIER Date: 2022-07-20 14:26[facility] HospitalUrinalysis - AUTOMATEDon 08-29-2799Hyeggmbgvq (U)Meeps Other Bilirubin Ql (U)AgSquared Other Color (U)yellowWest York Letyano Other Glucose Ql (U)NegativeFonJax [place] Other Hemoglobin Ql (U)NegativeFonJax [place] Other Ketones Ql (U)NegativeFonJax [place] Other Leukocyte esterase Test strip Ql (U)NegativeWest York [place]yano Other Nitrite Ql (U)[facility] Letyano Other pH (U)5.5 [pH][place] Other Protein Ql (U)[facility] Orthopedic HospitalFonJax [place] Other Specific gravity (U) [Rel density]1.025[place] Other Urobilinogen (U) [Mass/Vol]0.2 mg/dLWest York Letyano Other Urinalysis - AUTOMATEDWest York Letyano Other XR TSPINE 2 VIEWSon 95-03-3071OF TSPINE 2 VIEWS EXAMINATION: XR TSPINE 2 [...] Electronically authenticated by: CELIA CORMIER Date: 2022-06-16 13:[address] [place], [place] [address]BNPon 94-03-0758Ypdcwlfcino peptide B (Bld) [Mass/Vol]68.0 pg/mLNormal<=900.0A[facility] Regional Medical CenterComment on above:Performed By: #### CRP, CMP, BNP ####[facility] [address] [place], [place] [address]Dr. Janellbraeden CannonCBC AUTO DIFFon 94-19-2355UZSN #0.0 103/ulNormal0.0-0.1The [facility] Medical CenterComment on above:Performed By: #### CBC ####[facility] [address] [place], [place] [address]Dr.David CannonBasophils/100 WBC (Bld)0.5 %Normal0.2-2.0The [facility] Medical CenterComment on above:Performed By: #### CBC ####[facility] [address] [place], [place] [address]Dr.Janelllan ChangEO #0.2 103/ulNormal0.0-0.7The [facility] Medical CenterComment on above:Performed By: #### CBC ####[facility] [address] [place], [place] [address]Dr.David ChangEosinophils/100 WBC (Bld)2.0 %Normal 0.9-7.0The [facility] Medical CenterComment on above:Performed By: #### CBC ####[facility] [address] [place], [place] [address]Dr.David Cannon Erythrocyte distribution width (RBC) [Ratio]12.3 %Aqlbkg45.0-15.0The [facility] Medical CenterComment on above:Performed By: #### CBC ####[facility] [address] [place], [place] [address]Dr.David CannonHematocrit (Bld) [Volume fraction]44.4 %Vdpehl58.0-48.0The [facility] Medical CenterComment on above:Performed By: #### CBC ####[facility] [address] [place], [place] [address]Dr.David CannonHemoglobin (Bld) [Mass/Vol]14.3 g/dL Brptsl38.0-16.0The [facility] Medical CenterComment on above:Performed By: #### CBC ####[facility] [address] [place], [place] [address]Dr. David CannonIG #0.01 10e3/ulNormal0.00-0.03The [facility] Medical CenterComment on above: Performed By: #### CBC ####[facility] [facility] [address] [address]Dr.David CannonIG %0.1 %Normal0.0-0.5The [facility] County Medical CenterComment on above:Performed By: #### CBC ####[facility] Hgqosuoegy[address] [place], [place] [address]Dr.David CannonLYMPH #2.7 103/ulNormal1.2-3.8The [facility] CenterComment on above:Performed By: #### CBC ####[facility] Xdgypcnjvp[address] [place], [place] [address]Dr. David CannonLymphocytes/100 WBC (Bld)37.0 %Rhkxtr56.5-60.0The [facility] Comment on above:Performed By: #### CBC ####[facility] Pzcyhnhuir[address] [place], [place] [address]Dr.David CannonMANUAL DIFF REQNONormalThe [facility] CenterComment on above:Performed By: #### CBC ####[facility] Xfkhqvmqam[address] [place], [place] [address]Dr.David CannonMO[facility] (RBC) [Entitic mass]31.4 rzWxzjqu49.7-34.0The [facility] CenterComment on above: Performed By: #### CBC ####[facility] Alpoihugco[address] [place], [place] [address]Dr.David CannonC[facility] (RBC) [Mass/Vol]32.2 g/dLNormal 29.9-35.2The [facility] CenterComment on above:Performed By: #### CBC ####[facility] Vafvhmpdsv[address] [place], [place] [address]Dr. David CannonST. [facility] [place] (RBC) [Entitic vol]97.4 gXQdbuir59.0-99.0The [facility] Comment on above:Performed By: #### CBC ####[facility] [address] [address]Dr.David StuartO #0.6 103/ulNormal0.3-0.8 The [facility] CenterComment on above:Performed By: #### CBC ####[facility] [address] [address]Dr.David Cannon Monocytes/100 WBC (Bld)7.8 %Normal1.7-12.0The [facility] CenterComment on above: Performed By: #### CBC ####[facility] Lqxtuvtnsi18[address] [place], [place] [address]Dr.David CannonNEUT #3.9 103/ulNormal1.4-6.5The [facility] CenterComment on above:Performed By: #### CBC ####[facility] Awcnlaqioe[address] [place], [place] [address]Dr.David CannonNeutrophils/100 WBC (Bld)52.6 %Dtwmfo02.0-75.0The [facility] CenterComment on above:Performed By: #### CBC ####[facility] Xgyellaivy[address] [place], [place] [address]Dr.David CannonPlatelet mean volume (Bld) [Entitic vol]9.0 fLCritically low 9.5-13.5The [facility] CenterComment on above:Performed By: #### CBC ####[facility] Vuasjtkssv[address] [place], [place] [address]Dr. David LbbchMFB719 103/djWxelth038-269Nxo [facility] CenterComment on above: Performed By: #### CBC ####[facility] Yqsvoimuep[address] [place], [place] [address]Dr.Janelllan ChangRBC4.56 106/ulNormal4.20-5.40The [facility] CenterComment on above:Performed By: #### CBC ####[facility] Vmcglcivpm[address] [place], [place] [address]Dr.Janelllan ChangWBC7.4 103/ul Normal4.0-11.0The [facility] CenterComment on above:Performed By: #### CBC ####[facility] [address] [address]Dr. David ChangCRPon 19-23-1763SNK [Mass/Vol]mg/LNormal<=1.0[facility] Comment on above:Performed By: #### CRP, CMP, BNP ####[facility] [address]car[address] [address]Dr. Yilan ChangCULTURE URINE on 67-05-2898NPPLAJG URINECulture Observations: LIGHT GROWTH OF MIXED GENITAL ANISHA. NO POTENTIAL PATHOGENS SEEN.NormalAdena Regional Medical CenterComment on above:Performed By: #### URCX ####[facility] [address] [address]Dr. David ChangER URINE PROFILEon 71-21-0082Eqboptpls Ql (U)NegativeNormalNEGSelect Medical Specialty Hospital [facility] Comment on above:Performed By: #### BMP, TSH #### [facility] [address] [address] [address] David CannonCllouisa (U)CLEARNormalCLEARAdena Regional Medical CenterComment on above: Performed By: #### BMP, TSH #### [facility] [address] [address] [address] David Jin (U)LT. YELLOWNormalYLicking Memorial HospitalComment on above:Performed By: #### BMP, TSH #### [facility] [address] [address] [address] David Chino micrscopic examination will be performed if indicated. NormalAdena Regional Medical CenterComment on above:Performed By: #### BMP, TSH #### [facility] [address] [address] [address] David CannonGlucose Ql (U)NegativeNormalNEGATIVEAdena Regional Medical CenterComment on above:Performed By: #### BMP, TSH #### [facility] [address] [address] [address] David CannonHemoglobin Ql (U)NegativeNormalNEGSelect Medical Specialty Hospital [facility] Comment on above:Performed By: #### BMP, TSH #### [facility] [address] [place] [address] Dr. David Hwang Ql (U)NegativeNormalNEGATIVEThe [facility] CenterComment on above:Performed By: #### BMP, TSH #### [facility] [address] [place] [address] Dr. David JaneOCYTESSMALLAbnormalNEGATIVEThe [facility] CenterComment on above:Performed By: #### BMP, TSH #### [facility] [address] [place] [address] Dr. David Gomeztrmonie Ql (U)NegativeNormalNEGATIVEThe [facility] CenterComment on above:Performed By: #### BMP, TSH #### [facility] [address] [place] [address] Dr. David CannonpH (U)6.0 [pH]Normal5-9The [facility] CenterComment on above: Performed By: #### BMP, TSH #### [facility] [address] [place] [address] Dr. David CannonSPEC GRAVITY1.484Woxskv3.005-<=1.025The [facility] CenterComment on above:Performed By: #### BMP, TSH #### [facility] [address] [place] [address] Dr. David Cruz PROTEINNegativeNormalNEGATIVE/ TRACEThe [facility] Comment on above:Performed By: #### BMP, TSH #### [facility] [address] [place] [address] Dr. David Mayes MICRO INDINDICATEDNormalThe [facility] CenterComment on above: Performed By: #### BMP, TSH #### [facility] [address] [place] [address] Dr. David Jeff Qn (U)0.2 {Skip'U}/dLNormal0.2 - 1.0The [facility] CenterComment on above:Performed By: #### BMP, TSH #### [facility] [address] [place] [address] Dr. David Demarco 14(COMP METB)on 35-45-2339Rmzdqyy [Mass/Vol]4.3 g/dLNormal 3.4-5.0The [facility] CenterComment on above:Performed By: #### CRP, CMP, BNP ####[facility] [address] [address]Dr. Yilan ChangAlbumin/Globulin [Mass ratio]1.1 {ratio}NormalThe [facility] Comment on above:Performed By: #### CRP, CMP, BNP ####[facility] [address] [address]Dr. Yilan ChangALP [Catalytic activity/Vol]82 U/SZdcdlc45-029Mqv [facility] CenterComment on above:Performed By: #### CRP, CMP, BNP ####[facility] Pxiqzheaqz[address] [place], [place] [address]Dr. Yilan ChangALT [Catalytic activity/Vol]21 U/L Ezzrah37-39Fpj [facility] CenterComment on above:Performed By: #### CRP, CMP, BNP ####[facility] [address]axzokzcg[address] [place], [place] [address]Dr. Yilan ChangAnion gap [Moles/Vol]12.3 mmol/LNormalThe [facility] CenterComment on above:Performed By: #### CRP, CMP, BNP ####[facility] [address] [address]Dr. Yilan ChangAST [Catalytic activity/Vol] 15 U/GPfnjus39-16Icy [facility] CenterComment on above:Performed By: #### CRP, CMP, BNP ####[facility] [address] [address]Dr. Yilan ChangBilirubin [Mass/Vol]0.2 mg/dLNormal0.2-1.0The [facility] CenterComment on above:Performed By: #### CRP, CMP, BNP ####[facility] [address]ufivs[address] [place], [place] [address]Dr. Yilan ChangCalcium [Mass/Vol]9.2 mg/dLNormal8.5-10.1The [facility] CenterComment on above:Performed By: #### CRP, CMP, BNP ####[facility] K[address]blvaubw[address] [place], [place] [address]Dr. Yilan ChangChloride [Moles/Vol]104 mmol/LNormal 98-107The [facility] CenterComment on above:Performed By: #### CRP, CMP, BNP ####[facility] Rvphomwkwy[address] [place], [place] [address]Dr. Yilan ChangCO2 [Moles/Vol]31.2 mmol/PMhxrpp06.0-32.0The [facility] CenterComment on above:Performed By: #### CRP, CMP, BNP ####[facility] Domjspcwyi[address] [place], [place] [address]Dr. Yilan ChangCreatinine [Mass/Vol]0.52 mg/dLCritically low0.55-1.02The [facility] CenterCommclaren northern [place] on above:Performed By: #### CRP, CMP, BNP ####[facility] Jjgkwvxjit[address] [place], [place] [address]Dr. Yilan ChangEGFR-AF BOLIVIAN>60Normal>=60The [facility] on above:Performed By: #### CRP, CMP, BNP ####[facility] W[address]znguxcnt[address] [place], [place] [address]Dr. Yilan ChangEGFR- NON AF BOLIVIAN>60Normal>=60[facility] on above:Performed By: #### CRP, CMP, BNP ####[facility] Izdiufvtay[address] [place], [place] [address]Dr. Yilan ChangGlobulin (S) [Mass/Vol]3.9 g/dLNormal The [facility] CenterComment on above:Performed By: #### CRP, CMP, BNP ####[facility] Vxapygjrfo[address] [place], [place] [address]Dr. Yilan ChangGlucose [Mass/Vol]79 mg/fRUhgwhk51-282Yhu [facility] Centerment on above:Performed By: #### CRP, CMP, BNP ####[facility] [address]qwgpkflaq[address] [place], [place] [address]Dr. Yilan ChangPotassium [Moles/Vol]3.5 mmol/LNormal3.5-5.1The [facility] CenterComment on above:Performed By: #### CRP, CMP, BNP ####[facility] [address] [address]Dr. Janellbraeden ChangProtein [Mass/Vol]8.2 g/dLNormal6.4-8.2[facility] Comment on above:Performed By: #### CRP, CMP, BNP ####[facility] [address] [address]Dr. David ChangSodium [Moles/Vol]144 mmol/HIjwjkw814-361Ngp [facility] CenterComment on above: Performed By: #### CRP, CMP, BNP ####[facility] [address] [address]Dr. David ChangUrea nitrogen [Mass/Vol]16.0 mg/dL Normal7.0-18.0The [facility] CenterComment on above:Performed By: #### CRP, CMP, BNP ####[facility] [address]urs[address] [address]Dr. David ChangUrea nitrogen/Creatinine [Mass ratio]30.8 mg/mgNoWexner Medical CenterComment on above:Performed By: #### CRP, CMP, BNP ####[facility] [address] [address]Dr. David Cannon PROTIMEon 78-14-3289JBS Coag (PPP) [Relative time]{INR}NormalThe [facility] Medical CenterCommclaren northern [place] on above:Performed By: #### ANARF #### [facility] [address] [place] [address] Dr. David Flores GUIDELINESSEE BELOWBluffton HospitalComment on above:Result Comment: DESIRED INR: 2.0 - 3.0 CONDITIONS NOT LISTED BELOW 2.5 - 3.5 FOR PROSTHETIC HEART VALVE REPLACEMENT 2.5 - 3.5 RECURRENT THROMBOSIS Performed By: #### ANARF #### [facility] [address] [address] [address] David CannonPT Coag (PPP) [Time]9.6 sNormal9.0-11.6The [facility] Comment on above:Performed By: #### ANARF #### [facility] [address] [place] [address] Dr. David Ayala 96-12-1311bKOM Coag (Bld) [Time]25.6 dByaddt69.3-36.2[facility] CenterComment on above:Performed By: #### ANARF #### [facility] [address] [address] [address] David Oh RATE WESTERGRENon 82-74-7190KLZ RATE21 mm/hrNormal<=30The [facility] CenterComment on above:Performed By: #### SEDR ####[facility] [address] [address]Dr. David Ding MICROSCOPIC ONLYon 63-62-0376XDISEBKRRLKEQNusyhfiiLVAX SEENAdena Regional Medical Center Comment on above:Performed By: #### BMP, TSH #### [facility] [address] [place] [address] Dr. David Hart identified Cx Nom (U)INDICATEDBluffton HospitalComment on above:Performed By: #### BMP, TSH #### [facility] [address] [place] [address] Dr. David Araujo SEENNormalNONE SEENAdena Regional Medical CenterComment on above:Performed By: #### BMP, TSH #### [facility] [address] [place] [address] Dr. David Nair LM Nom (Urine sed)NONE SEENNormalNONE SEENAdena Regional Medical CenterCommclaren northern [place] on above:Performed By: #### BMP, TSH #### [facility] [address] [place] [address] Dr. David Angulopithelial cells LM Ql (Urine sed)FEWAbnormalNONE SEEN /RAREThe [facility] CenterComment on above:Performed By: #### BMP, TSH #### [facility] [address] [place] [address] Dr. David PrasadUSNONLiza SEENNormalNONE SEENAdena Regional Medical CenterComment on above:Performed By: #### BMP, TSH #### [facility] [address] [place] [address] Dr. David CannonAsmmxGGK6-2Svmyve9-4Psw [facility] HospitalComment on above:Performed By: #### BMP, TSH #### [facility] [address] [place] [address] Dr. David RodriguezBC5-10AbnormalNONE SEENAdena Regional Medical CenterComment on above: Performed By: #### BMP, TSH #### [facility] [address] [place] [address] Dr. David Monge EIA W/REFLEX 5 BIOMARKERSon 34-83-0041QLE DirectNegative NormalNegativeThe [facility] CenterComment on above:Performed By: #### ANARF #### [facility] [address] [place] [address] Dr. David Jha-Reactive Proteinon 86-09-6768W-Reactive Protein0.3 mg/dL<=1.0 mg/dLNoreynolds county general memorial hospital Letyano Other cbc AUTO DIFFon 80-91-7611MHXK #0.0 103/ulNormal 0.0-0.1The [facility] CenterComment on above:Performed By: #### ANARF #### [facility] [address] [place] [address] Dr. David CannonBasophils/100 WBC (Bld)0.3 %Normal0.2-2.0The [facility] Comment on above:Performed By: #### ANARF #### [facility] [address] [place] [address] Dr. David Ybarra #0.1 103/ulNormal0.0-0.7The [facility] CenterComment on above: Performed By: #### ANARF #### [facility] [address] [place] [address] Dr. David Angluoosinophils/100 WBC (Bld)1.7 %Normal0.9-7.0The [facility] Comment on above:Performed By: #### ANARF #### [facility] [address] [place] [address] Dr. David Angulorythrocyte distribution width (RBC) [Ratio]12.0 %Ciboya52.0-15.0 [facility] CenterComment on above:Performed By: #### ANARF #### [facility] [address] [place] [address] Dr. David CannonHematocrit (Bld) [Volume fraction]43.9 %Uixikg87.0-48.0The [facility] CenterComment on above:Performed By: #### ANARF #### [facility] [address] [place] [address] Dr. David CannonHemoglobin (Bld) [Mass/Vol]14.0 g/aYBhozmo15.0-16.0The [facility] CenterComment on above:Performed By: #### ANARF #### [facility] [address] [place] [address] Dr. David Andrade #0.02 10e3/ulNormal0.00-0.03The [facility] CenterComment on above:Performed By: #### ANARF #### [facility] [address] [place] [address] Dr. David CannonIG %0.3 %Normal0.0-0.5The [facility] CenterComment on above: Performed By: #### ANARF #### [facility] [address] [place] [address] Dr. David WelchH #2.0 103/ulNormal1.2-3.8The [facility] CenterComment on above:Performed By: #### ANARF #### [facility] [address] [place] [address] Dr. David Welchhocytes/100 WBC (Bld)31.7 %Prtnzb20.5-60.0The [facility] CenterComment on above:Performed By: #### ANARF #### [facility] [address] [place] [address] Dr. David Espana DIFF REQNONormalThe [facility] CenterComment on above: Performed By: #### ANARF #### [facility] [address] [place] [address] Dr. David Couch (RBC) [Entitic mass]30.8 smRtkzfl96.7-34.0The [facility] CenterComment on above:Performed By: #### ANARF #### [facility] [address] [place] [address] Dr. David Couch (RBC) [Mass/Vol]31.9 g/vOCrmvfr67.9-35.2The [facility] CenterComment on above:Performed By: #### ANARF #### [facility] [address] [place] [address] Dr. David Tomas (RBC) [Entitic vol]96.5 dRXtcogj21.0-99.0The [facility] CenterComment on above:Performed By: #### ANARF #### [facility] [address] [place] [address] Dr. David Ramirez #0.4 103/ulNormal0.3-0.8The [facility] CenterComment on above:Performed By: #### ANARF #### [facility] [address] [place] [address] Dr. David Stuartocytes/100 WBC (Bld)6.2 %Normal1.7-12.0The [facility] Comment on above:Performed By: #### ANARF #### [facility] [address] [place] [address] Dr. David Herrera #3.9 103/ulNormal1.4-6.5The [facility] CenterComment on above:Performed By: #### ANARF #### [facility] [address] [place] [address] Dr. David Wyattutrophils/100 WBC (Bld)59.8 %Zmqkxp28.0-75.0The [facility] CenterComment on above:Performed By: #### ANARF #### [facility] [address] [address] [address] David Ordoñez mean volume (Bld) [Entitic vol]8.7 fLCritically low 9.5-13.5The [facility] CenterComment on above:Performed By: #### ANARF #### [facility] [address] [address] [address] David CannonPLT263 103/toSwztcv640-425Ved [facility] CenterComment on above: Performed By: #### ANARF #### [facility] [address] [address] [address] David CannonRBC4.55 106/ulNormal4.20-5.40The [facility] CenterComment on above:Performed By: #### ANARF #### [facility] [address] [address] [address] David CannonWBC6.4 103/ulNormal4.0-11.0The [facility] CenterComment on above: Performed By: #### ANARF #### [facility] [address] [address] [address] David Mccrary 38-40-5632WLW3.3 mg/dLNormal<=1.0The [facility] Comment on above:Performed By: #### CRP, CMP ####[facility] [address] [place], [place] [address]PxDr. David CannonComplete Blood Count and Diffon 67-17-8037Etanpotrlkif Ql (Bld)[place] Other Basophilic stippling LM Ql (Bld)[place] Other RBC morphology finding Nom (Bld)[place] Other Complete Blood Count and DiffNoBioTeSys Other Comprehensive Metabolic Panelon 05-29-2022 Albumin/Globulin [Mass ratio]0.9 {ratio}NormalNoreynolds county general memorial hospital Letyano Other Comment on above:Performed By: #### ANARF #### [facility] [address] [place], [place] [address] Dr. David WhiteP [Catalytic activity/Vol]79 U/GRebwyy81-017QnbseBioTeSys Other Comment on above:Performed By: #### ANARF #### [facility] [address] [address] [address] David WhiteT [Catalytic activity/Vol]20 U/KNksajy89-46EdpxdBioTeSys Other Comment on above:Performed By: #### ANARF #### [facility] [address] [place] [address] Dr. David Arrington gap [Moles/Vol]12.7 mmol/LNormalNoBioTeSys Other Comment on above:Performed By: #### ANARF #### [facility] [address] [place] [address] Dr. David Thomason [Catalytic activity/Vol]20 U/DDcdovm93-88PibvzBioTeSys Other Comment on above:Performed By: #### ANARF #### [facility] [address] [place] [address] Dr. David Simside [Moles/Vol]102 mmol/AJlvbxc08-250ItuviMirubee Other Comment on above:Performed By: #### ANARF #### [facility] [address] [place] [address] Dr. David CannonUrea nitrogen/Creatinine [Mass ratio]29.0 mg/mgNormalMirubee Other Comment on above:Performed By: #### ANARF #### [facility] [address] [place] [address] Dr. David CannonAlbumin [Mass/Vol]3.138905 g/dL3.4-5.0 g/dLMirubee Other Calcium [Mass/Vol]9.4915168 mg/dL8.5-10.1 mg/dLMary Bridge Children'S Hospital [employer] Other CO2 [Moles/Vol]31.11990738 mmol/L21.0-32.0 mmol/LNMaimonides Medical Center [employer] Other Creatinine [Mass/Vol]0.40822395 mg/dL0.55-1.02 mg/dL [facility] [employer] Other Potassium [Moles/Vol]4.46447896 mmol/L3.5-5.1 mmol/L [facility] [employer] Other Protein [Mass/Vol]8.977844 g/dL6.4-8.2 g/dLMary Bridge Children'S Hospital [employer] Other Urea nitrogen [Mass/Vol]18.8614016 mg/dL7.0-18.0 mg/dL [facility] [employer] Other Comprehensive Metabolic Panelsee noteNoEncompass Health [employer] Other Comprehensive Metabolic Fvdaw501 mmol/L308-634 mmol/L [facility] [employer] Other Comprehensive Metabolic Qefgl037 mg/zR83-527 mg/dL [facility] [employer] Other Comprehensive Metabolic Panel>60 mL/min/1.73m2>=60 mL/min/1.88a0PcyimMary Bridge Children'S Hospital [employer] Other Comprehensive Metabolic Panel0.2 mg/dL0.2-1.0 mg/dL [facility] [employer] Other Comprehensive Metabolic Panel4.3 g/dLWest York Letyano Other PROF 14(COMP METB)on 66-36-4524Whrxypv [Mass/Vol]3.8 g/dLNormal3.4-5.0The [facility] CenterComment on above:Performed By: #### ANARF #### [facility] [address] [place] [address] Dr. Yilan ChangBilirubin [Mass/Vol]0.2 mg/dLNormal0.2-1.0The [facility] Comment on above:Performed By: #### ANARF #### [facility] [address] [place] [address] Dr. David CannonCalcium [Mass/Vol]9.9 mg/dLNormal8.5-10.1The [facility] Comment on above:Performed By: #### ANARF #### [facility] [address] [place] [address] Dr. David CannonCO2 [Moles/Vol]31.4 mmol/LMrppnz70.0-32.0The [facility] Comment on above:Performed By: #### ANARF #### [facility] [address] [place] [address] Dr. David CannonCreatinine [Mass/Vol]0.62 mg/dLNormal0.55-1.02The [facility] CenterComment on above:Performed By: #### ANARF #### [facility] [address] [place] [address] Dr. Hernandez ChangEGFR-AF BOLIVIAN>60Normal>=60The [facility] CenterComment on above:Performed By: #### ANARF #### [facility] [address] [place] [address] Dr. David AnguloGFR-NON AF BOLIVIAN>60Normal>=60The [facility] CenterComment on above:Performed By: #### ANARF #### [facility] [address] [place] [address] Dr. David CannonGlobulin (S) [Mass/Vol]4.3 g/dLNormalThe [facility] CenterComment on above:Performed By: #### ANARF #### [facility] [facility] [address] [place] [address] Dr. David CannonGlucose [Mass/Vol]102 mg/iZPfnhls43-186Ral [facility] Comment on above:Performed By: #### ANARF #### [facility] [address] [place] [address] Dr. David CannonPotassium [Moles/Vol]4.1 mmol/LNormal3.5-5.1The [facility] Comment on above:Performed By: #### ANARF #### [facility] [address] [place] [address] Dr. David CannonProtein [Mass/Vol]8.1 g/dLNormal6.4-8.2The [facility] Comment on above:Performed By: #### ANARF #### [facility] [address] [address] [address] David Velezdium [Moles/Vol]142 mmol/ZKcbzqt870-685Pdj [facility] Comment on above:Performed By: #### ANARF #### [facility] [address] [place] [address] Dr. David CannonUrea nitrogen [Mass/Vol]18.0 mg/dLNormal7.0-18.0The [facility] CenterComment on above:Performed By: #### ANARF #### [facility] [address] [place] [address] Dr. David Cruz RANDOM W/MICROSCOPICon [id number] CRYSTALSRARENormal The [facility] CenterComment on above:Performed By: #### BMP, TSH #### [facility] [address] [place] [address] Dr. David Cardona SEENNormalROBBI SEENAdena Regional Medical CenterComment on above:Performed By: #### BMP, TSH #### [facility] [address] [place] [address] Dr. David Pack Ql (U)NegativeNormalNEGATIVENoreynolds county general memorial hospital [employer] Other Comment on above:Performed By: #### BMP, TSH #### [facility] [address] [place] [address] Dr. David Araujo SEENNormalROBBI SEENAdena Regional Medical CenterComment on above:Performed By: #### BMP, TSH #### [facility] [address] [place] [address] Dr. David Louis (U)CLEARNormalCLEARMirubee Other Comment on above:Performed By: #### BMP, TSH #### [facility] [address] [address] [address] David Jin (U)LT. YELLOWNormalYELLOWMirubee Other Comment on above:Performed By: #### BMP, TSH #### [facility] [address] [address] [address] David CannonCrystals LM Nom (Urine sed)SEENAbnormalNONE SEENAdena Regional Medical CenterComment on above:Performed By: #### BMP, TSH #### [facility] [address] [place] [address] Dr. David Galeanolial cells LM Ql (Urine sed)RARENormalNONE SEEN /RAREThe [facility] CenterComment on above:Performed By: #### BMP, TSH #### [facility] [address] [place] [address] Dr. David CannonGlucose Ql (U)NegativeNormalNEGATIVEBlowout Boutique [place] Other Comment on above:Performed By: #### BMP, TSH #### [facility] [address] [place] [address] Dr. David CannonHemoglobin Ql (U)NegativeNormalNEGCYTIMMUNE SCIENCES [place] Other Comment on above:Performed By: #### BMP, TSH #### [facility] [address] [place] [address] Dr. David CannonKetones Ql (U)NegativeNormalNEGATIVEBlowout BoutiqueGeisinger [facility] [employer] Other Comment on above:Performed By: #### BMP, TSH #### [facility] [address] [address] [address] David CannonLEUKOCYTESNegativeNormalNEGATIVEAdena Regional Medical CenterComment on above:Performed By: #### BMP, TSH #### [facility] [address] [address] [address] David TranCOUSROBBI SEENNormalNONE SEENAdena Regional Medical CenterComment on above:Performed By: #### BMP, TSH #### [facility] [address] [address] [address] David Gomeztrite Ql (U)NegativeNormalNEGATIVEBioTeSys Other Comment on above:Performed By: #### BMP, TSH #### [facility] [address] [address] [address] David CannonpH (U)7.0 [pH]Normal5-9Noreynolds county general memorial hospital [place] Other Comment on above:Performed By: #### BMP, TSH #### [facility] [address] [place] [address] Dr. David CannonNwyzrKNC4-8Vqtpra9-4Hgj [facility] CenterComment on above:Performed By: #### BMP, TSH #### [facility] [address] [place] [address] Dr. David CannonSPEC GRAVITY1.825Sacxvh8.005-<=1.025The [facility] CenterComment on above:Performed By: #### BMP, TSH #### [facility] [address] [place] [address] Dr. David Cruz PROTEINNegativeNormalNEGATIVE/ TRACEThe [facility] Comment on above:Performed By: #### BMP, TSH #### [facility] [address] [place] [address] Dr. David Najerabilezgen Qn (U)0.2 {Skip'U}/dLNormal0.2 - 1.0The [facility] CenterComment on above:Performed By: #### BMP, TSH #### [facility] [address] [place] [address] Dr. David CannonWBCNONLiza SEENNormalNONE SEENThe [facility] CenterComment on above: Performed By: #### BMP, TSH #### [facility] [address] [place], [place] [address] Dr. David Nair LM Nom (Urine sed)SEEN #/HPFAbnormalNONE SEEN #/HPFFonJax [place] Other Epithelial cells LM Ql (Urine sed)RARE #/LPFNONE SEEN /RARE #/LPFMirubee Other ua RANDOM W/MICROSCOPIC1.0201.005-<=1.025Noreynolds [facility] hospital [place] Other ua RANDOM W/MICROSCOPICNegativeNEGATIVENoreynolds county general memorial hospital [place] Other ua RANDOM W/MICROSCOPIC0.2 EU/dl0.2 - 1.0 EU/dlMirubee Other ua RANDOM W/MICROSCOPICNONE SEEN #/HPFNONE SEEN #/HPF [employer] Other ua RANDOM W/MICROSCOPIC0-2 #/HPF0-2 #/HPFNoBioTeSys Other ua RANDOM W/MICROSCOPICNONE SEEN #/LPFNONE SEEN #/LPF [place] Other ua RANDOM W/MICROSCOPICNONE SEENNONE SEENNoreynolds county general memorial hospital [place] Other ua RANDOM W/MICROSCOPICRARENorth [place] Other CULTURE URINEon [id number] URINEIsolate 1 Escherichia coli >100,000 cfu/ ml of ORGANISM 1 Escherichia coli ANTIBIOTIC M.I.C RX STATUS Ampicillin >=32 R F Ampicillin/Sulbactam >=32 R F Piperacillin/Tazobactam <=4 S F Cefazolin <=4 S F Ceftazidime <=1 S F Ceftriaxone <=1 S F Ertapenem <=0.5 S F Imipenem <=0.25 S F Amikacin <=2 S F Gentamicin <=1 S F Tobramycin <=1 S F Ciprofloxacin <=0.25 S F Levofloxacin <=0.12 S F Nitrofurantoin <=16 S F Trimethoprim/Sulfamethoxazole <=20 S FNormalThe [facility] CenterComment on above:Performed By: #### URCX ####[facility] [address] [address]. David CannonVAGINITIS/VAGINOSIS DNA PROBEon [id number] speciesNegativeNormalNegativeAdena Regional Medical CenterComment on above:Performed By: #### BMP, TSH #### [facility] [address] [place] [address] Dr. David Burchlla vaginalisNegativeNormalNegativeAdena Regional Medical Center Comment on above:Performed By: #### BMP, TSH #### [facility] [address] [place] [address] Dr. David Greenfieldonas vaginalisNegativeNormalNegSelect Medical Specialty [facility] Comment on above:Performed By: #### BMP, TSH #### [facility] [address] [place] [address] Dr. David Bridges [id number] peptide B (Bld) [Mass/Vol]173.0 pg/mL Normal<=900.0Adena Regional Medical CenterComment on above:Performed By: #### BMP, TSH #### [facility] [address] [place] [address] Dr. Davdi Dumont WAI 3-6on [id number] [Catalytic activity/Vol]47 U/L Zwuaec54-244Rue [facility] CenterComment on above:Performed By: #### BMP, TSH #### [facility] [address] [place] [address] Dr. David Hickey.MB [Mass/Vol]ng/mLNormal<=3.60Adena Regional Medical CenterComment on above:Performed By: #### BMP, TSH #### [facility] [address] [place] [address] Dr. David Brown7.0 pg/mLNormal4.0-51.3The [facility] CenterComment on above:Result Comment: CUT-OFF POINTS HAVE BEEN ESTABLISHED BASED ON THE FOURTH UNIVERSAL DEFINITIONS OF MYOCARDIAL INFARCTION. THE UPPER REFERENCE LIMIT (URL) OF TROPONIN, DEFINED THE 99TH PERCENTILE OF cTnI DISTRIBUTION IN A REFERENCE POPULATION, HAS BEEN CONFIRMED THE DECISION THRESHOLD FOR ND DIAGNOSIS.Performed By: #### BMP, TSH #### [facility] [address] [place] [address] Dr. David Hickey [Catalytic activity/Vol]44 U/SQlvvnd66-188Yhv [facility] CenterComment on above:Performed By: #### BMP, TSH #### [facility] [address] [place] [address] Dr. David Hickey.MB [Mass/Vol]ng/mLNormal<=3.60The [facility] CenterComment on above:Performed By: #### BMP, TSH #### [facility] [address] [place] [address] Dr. David CannonHSTROP5.3 pg/mLNormal4.0-51.3The [facility] CenterComment on above:Result Comment: CUT-OFF POINTS HAVE BEEN ESTABLISHED BASED ON THE FOURTH UNIVERSAL DEFINITIONS OF MYOCARDIAL INFARCTION. THE UPPER REFERENCE LIMIT (URL) OF TROPONIN, DEFINED THE 99TH PERCENTILE OF cTnI DISTRIBUTION IN A REFERENCE POPULATION, HAS BEEN CONFIRMED THE DECISION THRESHOLD FOR ND DIAGNOSIS.Performed By: #### BMP, TSH #### [facility] [address] [place] [address] Dr. David Elizondo AUTO DIFFon [id number] #0.0 103/ulNormal0.0-0.1The [facility] CenterComment on above:Performed By: #### CBC #### [facility] [address] [place] [address] Dr. David CannonBasophils/100 WBC (Bld)0.3 %Normal0.2-2.0The [facility] Comment on above:Performed By: #### CBC #### [facility] [address] [place] [address] Dr. David Ybarra #0.2 103/ulNormal0.0-0.7The [facility] CenterComment on above: Performed By: #### CBC #### [facility] [address] [place] [address] Dr. Yilan ChangEosinophils/100 WBC (Bld)2.6 %Normal0.9-7.0The [facility] Comment on above:Performed By: #### CBC #### [facility] [address] [place] [address] Dr. David Angulorythrocyte distribution width (RBC) [Ratio]12.1 %Ktedgh07.0-15.0 The [facility] CenterComment on above:Performed By: #### CBC #### [facility] [address] [place] [address] Dr. David CannonHematocrit (Bld) [Volume fraction]39.9 %Pkeixx24.0-48.0The [facility] CenterComment on above:Performed By: #### CBC #### [facility] [address] [place] [address] Dr. David CannonHemoglobin (Bld) [Mass/Vol]13.2 g/eMXsyitb02.0-16.0The [facility] CenterComment on above:Performed By: #### CBC #### [facility] [address] [place] [address] Dr. David Andrade #0.01 10e3/ulNormal0.00-0.03The [facility] CenterComment on above:Performed By: #### CBC #### [facility] [address] [place] [address] Dr. David CannonIG %0.2 %Normal0.0-0.5The [facility] CenterComment on above: Performed By: #### CBC #### [facility] [address] [place] [address] Dr. David GrajedaMPH #2.8 103/ulNormal1.2-3.8The [facility] CenterComment on above:Performed By: #### CBC #### [facility] [address] [place] [address] Dr. David Grajedamphocytes/100 WBC (Bld)48.1 %Keerbx04.5-60.0The [facility] CenterComment on above:Performed By: #### CBC #### [facility] [address] [place] [address] Dr. David VilaUAL DIFF REQNONormalThe [facility] CenterComment on above: Performed By: #### CBC #### [facility] [address] [place] [address] Dr. David Couch (RBC) [Entitic mass]31.6 liEpigvw89.7-34.0The [facility] CenterComment on above:Performed By: #### CBC #### [facility] [address] [place] [address] Dr. David Couch (RBC) [Mass/Vol]33.1 g/fHVuxfoe81.9-35.2The [facility] CenterComment on above:Performed By: #### CBC #### [facility] [address] [place] [address] Dr. David Couch (RBC) [Entitic vol]95.5 sZOrjghq82.0-99.0The [facility] CenterComment on above:Performed By: #### CBC #### [facility] [address] [place] [address] Dr. David Ramirez #0.4 103/ulNormal0.3-0.8The [facility] CenterComment on above:Performed By: #### CBC #### [facility] [address] [place] [address] Dr. David Stuartocytes/100 WBC (Bld)6.1 %Normal1.7-12.0The [facility] Comment on above:Performed By: #### CBC #### [facility] [address] [place] [address] Dr. David Herrera #2.5 103/ulNormal1.4-6.5The [facility] CenterComment on above:Performed By: #### CBC #### [facility] [address] [place] [address] Dr. David Wyattutrophils/100 WBC (Bld)42.7 %Critically low43.0-75.0The [facility] CenterComment on above:Performed By: #### CBC #### [facility] [address] [place] [address] Dr. David Fragalet mean volume (Bld) [Entitic vol]8.7 fLCritically low 9.5-13.5The [facility] on above:Performed By: #### CBC #### [facility] [address] [place] [address] Dr. David CannonPLT166 103/beLbtsur081-227Gsc [facility] CenterCommclaren northern [place] on above: Performed By: #### CBC #### [facility] [address] [place] [address] Dr. David CannonRBC4.18 106/ulCritically low4.20-5.40The [facility] on above:Performed By: #### CBC #### [facility] [address] [place] [address] Dr. David CannonWBC5.7 103/ulNormal4.0-11.0The [facility] CenterComment on above: Performed By: #### CBC #### [facility] [address] [place] [address] Dr. David CannonPROF 14(COMP METB)on 97-47-8903Izzhppu [Mass/Vol]3.4 g/dLNormal 3.4-5.0The [facility] on above:Performed By: #### BMP, TSH #### [facility] [address] [place] [address] Dr. David CannonAlbumin/Globulin [Mass ratio]1.2 {ratio}NormalThe [facility] on above:Performed By: #### BMP, TSH #### [facility] [address] [place] [address] Dr. David WhiteP [Catalytic activity/Vol]60 U/FLxcnjh10-878Zqx [facility] on above:Performed By: #### BMP, TSH #### [facility] [address] [place] [address] Dr. David WhiteT [Catalytic activity/Vol]16 U/SXmiccn68-56Wtp Ma[facility] HospitalComment on above:Performed By: #### BMP, TSH #### [facility] [address] [address] [address] David CannonAnion gap [Moles/Vol]10.5 mmol/LNormalAdena Regional Medical Center Comment on above:Performed By: #### BMP, TSH #### [facility] [address] [address] [address] David CannonAST [Catalytic activity/Vol]17 U/BIjxabv95-92Mdb [facility] CenterComment on above:Performed By: #### BMP, TSH #### [facility] [address] [address] [address] Daivd CannonBilirubin [Mass/Vol]0.4 mg/dLNormal0.2-1.0[facility] Comment on above:Performed By: #### BMP, TSH #### [facility] [address] [address] [address] David CannonCalcium [Mass/Vol]8.8 mg/dLNormal8.5-10.1[facility] Comment on above:Performed By: #### BMP, TSH #### [facility] [address] [address] [address] David CannonChloride [Moles/Vol]106 mmol/AHckgrp11-030BusAdena Regional Medical Center Comment on above:Performed By: #### BMP, TSH #### [facility] [address] [address] [address] David CannonCO2 [Moles/Vol]28.4 mmol/MOptwbw79.0-32.0[facility] Comment on above:Performed By: #### BMP, TSH #### [facility] [address] [address] [address] David CannonCreatinine [Mass/Vol]0.61 mg/dLNormal0.55-1.02The [facility] CenterComment on above:Performed By: #### BMP, TSH #### [facility] [address] [address] [address] Hernandez ChangEGFR-AF BOLIVIAN>60Normal>=60The [facility] CenterComment on above:Performed By: #### BMP, TSH #### [facility] [address] [address] [address] David AnguloGFR-NON AF BOLIVIAN>60Normal>=60The [facility] CenterComment on above:Performed By: #### BMP, TSH #### [facility] [address] [address] [address] David CannonGlobulin (S) [Mass/Vol]2.9 g/dLNormalThWooster Community HospitalComment on above:Performed By: #### BMP, TSH #### [facility] [address] [address] [address] David CannonGlucose [Mass/Vol]79 mg/bDPlowcv75-391UzwAdena Regional Medical Center Comment on above:Performed By: #### BMP, TSH #### [facility] [address] [address] [address] David CannonPotassium [Moles/Vol]3.9 mmol/LNormal3.5-5.1[facility] Comment on above:Performed By: #### BMP, TSH #### [facility] [address] [address] [address] David CannonProtein [Mass/Vol]6.3 g/dLCritically low6.4-8.2The [facility] Centerment on above:Performed By: #### BMP, TSH #### [facility] [address] [address] [address] David CannonSodium [Moles/Vol]141 mmol/ZTdnvkt935-923SfaAdena Regional Medical Center Comment on above:Performed By: #### BMP, TSH #### [facility] [address] [address] [address] David CannonUrea nitrogen [Mass/Vol]8.0 mg/dLNormal7.0-18.0The [facility] Medical Centerment on above:Performed By: #### BMP, TSH #### [facility] [address] [address] [address] David CannonUrea nitrogen/Creatinine [Mass ratio]13.1 mg/mgNormalThe [facility] CenterComment on above:Performed By: #### BMP, TSH #### [facility] [address] [place] [address] Dr. David Bridges 68-86-9640Pkspfwyjtbi peptide B (Bld) [Mass/Vol]124.0 pg/mL Normal<=900.0The [facility] on above:Performed By: #### ANARF #### [facility] [address] [place] [address] Dr. David Dumont WAI 3-6on 21-84-9708GQ [Catalytic activity/Vol]44 U/L Lcrulr74-260Xih [facility] on above:Performed By: #### BMP, TSH #### [facility] [address] [place] [address] Dr. David Hickey.MB [Mass/Vol]ng/mLNormal<=3.60The [facility] on above:Result Comment: Previously reported as: 0.30 On 02/23/2022 20:39 By JAW Performed By: #### BMP, TSH #### [facility] [address] [place] [address] Dr. David PrestonTROP6.1 pg/mLNormal4.0-51.3The [facility] on above:Result Comment: CUT-OFF POINTS HAVE BEEN ESTABLISHED BASED ON THE FOURTH UNIVERSAL DEFINITIONS OF MYOCARDIAL INFARCTION. THE UPPER REFERENCE LIMIT (URL) OF TROPONIN, DEFINED THE 99TH PERCENTILE OF cTnI DISTRIBUTION IN A REFERENCE POPULATION, HAS BEEN CONFIRMED THE DECISION THRESHOLD FOR ND DIAGNOSIS.Performed By: #### BMP, TSH #### [facility] [address] [place] [address] Dr. David Hickey [Catalytic activity/Vol]45 U/RAmqqoz85-580Qen [facility] on above:Performed By: #### CMREP ####[facility] [address] [address]Dr. David Hickey.MB [Mass/Vol]ng/mLNormal<=3.60The [facility] on above:Performed By: #### CMREP ####[facility] [address] [id number]. David CannonHSTROP5.7 pg/mLNormal4.0-51.3The [facility] CenterComment on above:Result Comment: CUT-OFF POINTS HAVE BEEN ESTABLISHED BASED ON THE FOURTH UNIVERSAL DEFINITIONS OF MYOCARDIAL INFARCTION. THE UPPER REFERENCE LIMIT (URL) OF TROPONIN, DEFINED THE 99TH PERCENTILE OF cTnI DISTRIBUTION IN A REFERENCE POPULATION, HAS BEEN CONFIRMED THE DECISION THRESHOLD FOR ND DIAGNOSIS.Performed By: #### CMREP ####[facility] [address] [address]Dr. David CadetC AUTO DIFFon 02-23-2022 BASO #0.0 103/ulNormal0.0-0.1The [facility] CenterComment on above:Performed By: #### BMP, TSH #### [facility] [address] [place] [address] Dr. David CannonBasophils/100 WBC (Bld)0.7 %Normal0.2-2.0[facility] Comment on above:Performed By: #### BMP, TSH #### [facility] [address] [address] [address] David Ybarra #0.1 103/ulNormal0.0-0.7The [facility] CenterComment on above: Performed By: #### BMP, TSH #### [facility] [address] [address] [address] David Anguloosinophils/100 WBC (Bld)1.1 %Normal0.9-7.0[facility] Comment on above:Performed By: #### BMP, TSH #### [facility] [address] [address] [address] David Angulorythrocyte distribution width (RBC) [Ratio]12.2 %Ochwow44.0-15.0 The [facility] CenterComment on above:Performed By: #### BMP, TSH #### [facility] [address] [place] [address] Dr. David CannonHematocrit (Bld) [Volume fraction]43.4 %Bcsykn70.0-48.0The [facility] CenterComment on above:Performed By: #### BMP, TSH #### [facility] [address] [place] [address] Dr. David CannonHemoglobin (Bld) [Mass/Vol]14.4 g/fABxlpjn71.0-16.0The [facility] HospitalComment on above:Performed By: #### BMP, TSH #### [facility] [address] [place] [address] Dr. David Andrade #0.01 10e3/ulNormal0.00-0.03The [facility] HospitalComment on above:Performed By: #### BMP, TSH #### [facility] [address] [place] [address] Dr. David Andrade %0.2 %Normal0.0-0.5The [facility] CenterComment on above: Performed By: #### BMP, TSH #### [facility] [address] [place] [address] Dr. David Leonard #1.5 103/ulNormal1.2-3.8The [facility] CenterComment on above:Performed By: #### BMP, TSH #### [facility] [address] [place] [address] Dr. David Welchhocytes/100 WBC (Bld)32.7 %Ajeqyk35.5-60.0The [facility] CenterComment on above:Performed By: #### BMP, TSH #### [facility] [address] [place] [address] Dr. David VilaUAL DIFF REQNONormalThe [facility] CenterComment on above: Performed By: #### BMP, TSH #### [facility] [address] [place] [address] Dr. David Rivera (RBC) [Entitic mass]31.4 opDwuhdl22.7-34.0The [facility] CenterComment on above:Performed By: #### BMP, TSH #### [facility] [address] [place] [address] Dr. David Couch (RBC) [Mass/Vol]33.2 g/oWYydcam80.9-35.2The [facility] CenterComment on above:Performed By: #### BMP, TSH #### [facility] [address] [place] [address] Dr. David CouchV (RBC) [Entitic vol]94.8 gLRujhok34.0-99.0The [facility] CenterComment on above:Performed By: #### BMP, TSH #### [facility] [address] [place] [address] Dr. David Ramirez #0.3 103/ulNormal0.3-0.8The [facility] CenterComment on above:Performed By: #### BMP, TSH #### [facility] [address] [place] [address] Dr. David Stuartocytes/100 WBC (Bld)5.9 %Normal1.7-12.0The [facility] Comment on above:Performed By: #### BMP, TSH #### [facility] [address] [place] [address] Dr. David Herrera #2.6 103/ulNormal1.4-6.5The [facility] CenterComment on above:Performed By: #### BMP, TSH #### [facility] [address] [place] [address] Dr. David Wyattutrophils/100 WBC (Bld)59.4 %Hcteck97.0-75.0The [facility] CenterComment on above:Performed By: #### BMP, TSH #### [facility] [address] [place] [address] Dr. David Fragalet mean volume (Bld) [Entitic vol]8.6 fLCritically low 9.5-13.5The [facility] CenterComment on above:Performed By: #### BMP, TSH #### [facility] [address] [place] [address] Dr. David CannonPLT200 103/beYhclpt735-491Hwv [facility] CenterComment on above: Performed By: #### BMP, TSH #### [facility] [address] [address] [address] David CannonRBC4.58 106/ulNormal4.20-5.40The [facility] CenterComment on above:Performed By: #### BMP, TSH #### [facility] [address] [address] [address] David CannonWBC4.4 103/ulNormal4.0-11.0The [facility] CenterComment on above: Performed By: #### BMP, TSH #### [facility] [address] [address] [address] David CannonCovid-19 PCR (CVDTBH)on 33-29-7517NMMN-CoV-2 (COVID-19) RNA JOSH+probe Ql (Unsp spec)Not detectedNormalNOT DETECTEDThe [facility] Comment on above:Result Comment: When diagnostic testing is negative, the [...] for this test is supported by the Camera Repairer of Health and Human Service's declaration that circumstances exist to justify the emergency use of in vitro diagnostics for the detection and/or diagnosis of the virus that causes COVID-19. This EUA will remain in effect for the duration of the COVID-19 declaration justifying emergency of IVDs, unless it is terminated or revoked by the FDA (after which the test may no longer be used).Performed By: #### CVDTBH ####[facility] [address] [id number]. David CannonLIPASEon 62-74-1683Htitbz [Catalytic activity/Vol]85.0 U/L Cyrsmy50.0-393.0The [facility] CenterComment on above:Performed By: #### ANARF #### [facility] [address] [address] [address] David Demarco 14(COMP METB)on 79-58-1763Iszojfo [Mass/Vol]4.2 g/dLNormal 3.4-5.0The [facility] CenterComment on above:Performed By: #### ANARF #### [facility] [address] [address] [address] David CannonAlbumin/Globulin [Mass ratio]1.2 {ratio}NormalThe [facility] Medical CenterComment on above:Performed By: #### ANARF #### [facility] [address] [place] [address] Dr. David WhiteP [Catalytic activity/Vol]67 U/GCsoquw96-877Ngq [facility] CenterComment on above:Performed By: #### ANARF #### [facility] [address] [place] [address] Dr. David WhiteT [Catalytic activity/Vol]19 U/SDrecza86-24Ugy [facility] CenterComment on above:Performed By: #### ANARF #### [facility] [address] [place] [address] Dr. David Arrington gap [Moles/Vol]15.1 mmol/LNormalThe [facility] Comment on above:Performed By: #### ANARF #### [facility] [address] [place] [address] Dr. David CannonAST [Catalytic activity/Vol]18 U/XCjvxpz87-96Bue [facility] CenterComment on above:Performed By: #### ANARF #### [facility] [address] [place] [address] Dr. David CannonBilirubin [Mass/Vol]0.3 mg/dLNormal0.2-1.0The [facility] Comment on above:Performed By: #### ANARF #### [facility] [address] [place] [address] Dr. David CannonCalcium [Mass/Vol]9.7 mg/dLNormal8.5-10.1[facility] Comment on above:Performed By: #### ANARF #### [facility] [address] [address] [address] David CannonChloride [Moles/Vol]103 mmol/HAkgkhn94-172Xeh [facility] Comment on above:Performed By: #### ANARF #### [facility] [address] [address] [address] David CannonCO2 [Moles/Vol]29.0 mmol/AHgljnm85.0-32.0The [facility] Comment on above:Performed By: #### ANARF #### [facility] [address] [address] [address] David CannonCreatinine [Mass/Vol]0.67 mg/dLNormal0.55-1.02The [facility] CenterComment on above:Performed By: #### ANARF #### [facility] [address] [address] [address] Hernandez ChangEGFR-AF BOLIVIAN>60Normal>=60The [facility] CenterComment on above:Performed By: #### ANARF #### [facility] [address] [address] [address] David AnguloGFR-NON AF BOLIVIAN>60Normal>=60The [facility] CenterComment on above:Performed By: #### ANARF #### [facility] [address] [place] [address] Dr. David CannonGlobulin (S) [Mass/Vol]3.6 g/dLNormalThe [facility] CenterComment on above:Performed By: #### ANARF #### [facility] [address] [place] [address] Dr. David CannonGlucose [Mass/Vol]130 mg/dLCritically lsro54-756Gkp [facility] CenterComment on above:Performed By: #### ANARF #### [facility] [address] [address] [address] David CannonPotassium [Moles/Vol]4.1 mmol/LNormal3.5-5.1The [facility] Comment on above:Performed By: #### ANARF #### [facility] [address] [place], [place] [id number] Dr. David CannonProtein [Mass/Vol]7.8 g/dLNormal6.4-8.2The [facility] Comment on above:Performed By: #### ANARF #### [facility] [address] [place] [address] Dr. David CannonSodium [Moles/Vol]143 mmol/ZQqtcub875-187Pmh [facility] Comment on above:Performed By: #### ANARF #### [facility] [address] [place] [address] Dr. David CannonUrea nitrogen [Mass/Vol]11.0 mg/dLNormal7.0-18.0The [facility] CenterComment on above:Performed By: #### ANARF #### [facility] [address] [place] [address] Dr. David Yousif nitrogen/Creatinine [Mass ratio]16.4 mg/mgNormAvita Health System Bucyrus Hospitale [facility] CenterComment on above:Performed By: #### ANARF #### [facility] [address] [place] [address] Dr. David Galvan 60-14-7474SHA Coag (PPP) [Relative time]{INR}NormalThe [facility] Medical CenterComment on above:Performed By: #### BMP, TSH #### [facility] [address] [place] [address] Dr. David Flores GUIDELINESSEE BELOWBluffton HospitalComment on above:Result Comment: DESIRED INR: 2.0 - 3.0 CONDITIONS NOT LISTED BELOW 2.5 - 3.5 FOR PROSTHETIC HEART VALVE REPLACEMENT 2.5 - 3.5 RECURRENT THROMBOSIS Performed By: #### BMP, TSH #### [facility] [address] [place] [address] Dr. David CannonPT Coag (PPP) [Time]10.0 sNormal9.0-11.6The [facility] Comment on above:Performed By: #### BMP, TSH #### [facility] [address] [place] [address] Dr. David Ayala 80-57-2494tIIU Coag (Bld) [Time]25.4 oMymyqv47.3-36.2The [facility] CenterComment on above:Performed By: #### BMP, TSH #### [facility] [address] [address] [address] David Lo, HIGH SENSITIVITYon 88-19-1707HBRWDN9.0 pg/mLNormal 4.0-51.3The [facility] Medical CenterComment on above:Result Comment: CUT-OFF POINTS HAVE BEEN ESTABLISHED BASED ON THE FOURTH UNIVERSAL DEFINITIONS OF MYOCARDIAL INFARCTION. THE UPPER REFERENCE LIMIT (URL) OF TROPONIN, DEFINED THE 99TH PERCENTILE OF cTnI DISTRIBUTION IN A REFERENCE POPULATION, HAS BEEN CONFIRMED THE DECISION THRESHOLD FOR ND DIAGNOSIS.Performed By: #### ANARF #### [facility] [address] [place] [address] Dr. David CannonXR CHEST 1 Von 27-08-8899QK CHEST 1 VEXAM: XR CHEST 1 V at 1542 hours [...] Electronically authenticated by: LONI SALAS Date: 2022-02-23 16:18[facility] HospitalCT ABD/PELV W CONon [id number] ABD/PELV W CONEXAMINATION: CT ABD/PELV W CON HISTORY: Generalized abdominal [...] degenerative changes of the spine. Status post vertebroplasty/kyphoplasty changes of L2. Stable compression deformity of [...] Electronically authenticated by: CHAIM MEZA Date: 2022-01-06 22:12NoWexner Medical CenterAMYLASEon 01-74-4336Idjupra [Catalytic activity/Vol]34 U/L Tixcqg13-990Gzn [facility] CenterComment on above:Performed By: #### CMP ELAINE ####[facility] [address] [address]Dr. David Elizondo AUTO DIFFon 65-30-9370YKMO #0.0 103/ulNormal0.0-0.1[facility] CenterComment on above:Performed By: #### ANARF #### [facility] [address] [address] [address] David Huynhsophils/100 WBC (Bld)0.5 %Normal0.2-2.0The [facility] Comment on above:Performed By: #### ANARF #### [facility] [address] [address] [address] David Ybarra #0.1 103/ulNormal0.0-0.7The [facility] CenterComment on above: Performed By: #### ANARF #### [facility] [address] [place] [address] Dr. David Anguloosinophils/100 WBC (Bld)1.4 %Normal0.9-7.0The [facility] Comment on above:Performed By: #### ANARF #### [facility] [address] [place] [address] Dr. David Angulorythrocyte distribution width (RBC) [Ratio]12.0 %Hpyyfu99.0-15.0 The [facility] CenterComment on above:Performed By: #### ANARF #### [facility] [address] [place] [address] Dr. David CannonHematocrit (Bld) [Volume fraction]44.6 %Knoeyr12.0-48.0The [facility] CenterComment on above:Performed By: #### ANARF #### [facility] [address] [place] [address] Dr. David CannonHemoglobin (Bld) [Mass/Vol]14.5 g/kUMaojmw21.0-16.0The [facility] CenterComment on above:Performed By: #### ANARF #### [facility] [address] [place] [address] Dr. David Andrade #0.01 10e3/ulNormal0.00-0.03The [facility] CenterComment on above:Performed By: #### ANARF #### [facility] [address] [place] [address] Dr. David Andrade %0.2 %Normal0.0-0.5The [facility] CenterComment on above: Performed By: #### ANARF #### [facility] [address] [place] [address] Dr. David GrajedaMPH #2.5 103/ulNormal1.2-3.8The [facility] CenterComment on above:Performed By: #### ANARF #### [facility] [address] [place] [address] Dr. David Grajedamphocytes/100 WBC (Bld)42.6 %Iwsnxy45.5-60.0The [facility] HospitalComment on above:Performed By: #### ANARF #### [facility] [address] [address] [address] David Espana DIFF REQNONormalThe [facility] Medical CenterComment on above: Performed By: #### ANARF #### [facility] [address] [place] [address] Dr. David Couch (RBC) [Entitic mass]31.6 mcOotpmv83.7-34.0The [facility] HospitalComment on above:Performed By: #### ANARF #### [facility] [address] [place] [address] Dr. David Couch (RBC) [Mass/Vol]32.5 g/uKIepyxp93.9-35.2The [facility] CenterComment on above:Performed By: #### ANARF #### [facility] [address] [place] [address] Dr. David Couch (RBC) [Entitic vol]97.2 uWQzzwhp79.0-99.0The [facility] CenterComment on above:Performed By: #### ANARF #### [facility] [address] [place] [address] Dr. David Ramirez #0.4 103/ulNormal0.3-0.8The [facility] CenterComment on above:Performed By: #### ANARF #### [facility] [address] [place] [address] Dr. David Stuartocytes/100 WBC (Bld)5.9 %Normal1.7-12.0The [facility] Comment on above:Performed By: #### ANARF #### [facility] [address] [place] [address] Dr. David Herrera #2.9 103/ulNormal1.4-6.5The [facility] CenterComment on above:Performed By: #### ANARF #### [facility] [address] [place] [address] Dr. David Wyattutrophils/100 WBC (Bld)49.4 %Rzbdxh56.0-75.0The [facility]icol HospitalComment on above:Performed By: #### ANARF #### [facility] [address] [address] [address] David Ordoñez mean volume (Bld) [Entitic vol]9.1 fLCritically low 9.5-13.5The [facility] CenterCommclaren [place] on above:Performed By: #### ANARF #### [facility] [address] [place] [address] Dr. David CannonPLT257 103/neDqxdar034-473Ofq [facility] CenterCommclaren [place] on above: Performed By: #### ANARF #### [facility] [address] [place] [address] Dr. David CannonRBC4.59 106/ulNormal4.20-5.40[facility] CenterCommclaren [place] on above:Performed By: #### ANARF #### [facility] [address] [place] [address] Dr. David CannonWBC5.9 103/ulNormal4.0-11.0The [facility] CenterComment on above: Performed By: #### ANARF #### [facility] [address] [place] [address] Dr. David VernonDIMERon 11-31-2363R-DIMER0.67 mg/L FEUCritically high<=0.59[facility] on above:Performed By: #### DDIM ####[facility] [address] [address]Dr. David VernonDIMER COMMENTSSEE [facility] CenterCommclaren [place] on above:Result Comment: Increases in D-Dimer concentration observed with thromboembolic events [...] stress, and generalized hospitalization. Performed By: #### DDIM ####[facility] [address] [address]Dr. Yilan ChangPROF 14(COMP METB)on 90-49-6042Fkmklcl [Mass/Vol]4.0 g/dLNormal3.4-5.0The [facility] CenterComment on above:Performed By: #### CMP, ELAINE ####[facility] [address] [address]Dr. Yilan ChangAlbumin/Globulin [Mass ratio]1.2 {ratio}NormalThe [facility] CenterComment on above:Performed By: #### CMP, ELAINE ####[facility] [address] [place], [place] [address]Dr. Yilan ChangALP [Catalytic activity/Vol]78 U/DAcvgur49-953Wvz [facility] CenterComment on above: Performed By: #### CMP, ELAINE ####[facility] [address] [place], [place] [address]Dr. Yilan ChangALT [Catalytic activity/Vol]23 U/L Kdyvkp60-85Mkj [facility] CenterComment on above:Performed By: #### CMP, ELAINE ####[facility] [address] [place], [place] [address]Dr. Yilan ChangAnion gap [Moles/Vol]10.8 mmol/LNormalThe [facility] CenterComment on above:Performed By: #### CMP, ELAINE ####[facility] R[address] [place], [place] [address]Dr. Yilan ChangAST [Catalytic activity/Vol]28 U/L Yojvnf08-38Zzp [facility] CenterComment on above:Performed By: #### CMP, ELAINE ####[facility] R[address] [place], [place] [address]Dr. Yilan ChangBilirubin [Mass/Vol]0.3 mg/dLNormal0.2-1.0The [facility] Comment on above:Performed By: #### CMP, ELAINE ####[facility] [address] [place], [place] [address]Dr. Yilan ChangCalcium [Mass/Vol]9.1 mg/dLNormal8.5-10.1The [facility] CenterComment on above:Performed By: #### CMP, ELAINE ####[facility] [address] [place], [place] [address]Dr. Yilan ChangChloride [Moles/Vol]102 mmol/LNormal 98-107The [facility] CenterComment on above:Performed By: #### CMP, ELAINE ####[facility] [address]wocz[address]td[address] [place], [place] [address]Dr. Yilan ChangCO2 [Moles/Vol]30.3 mmol/BYfwjei79.0-32.0The [facility] CenterComment on above:Performed By: #### CMP, ELAINE ####[facility] [address]irpx[address] [place], [place] [address]Dr. Yilan ChangCreatinine [Mass/Vol]0.46 mg/dL Critically low0.55-1.02The [facility] CenterComment on above:Performed By: #### CMP, ELAINE ####[facility] Dtagpbagjm[address] [place], [place] [address]Dr. Yilan ChangEGFR-AF BOLIVIAN>60Normal>=60[facility] CenterComment on above:Performed By: #### CMP, ELAINE ####[facility] Y[address] [place], [place] [address]Dr. Yilan ChangEGFR-NON AF BOLIVIAN>60Normal>=60 The [facility] CenterComment on above:Performed By: #### CMP, ELAINE ####[facility] [address]onspyl[address] [place], [place] [address]Dr. Yilan Cannon Globulin (S) [Mass/Vol]3.4 g/dLNormalThe [facility] CenterComment on above: Performed By: #### CMP, ELAINE ####[facility] R[address]mh[address] [place], [place] [address]Dr. Yilan ChangGlucose [Mass/Vol]111 mg/dLCritically jrrl24-825Eys [facility] CenterComment on above:Performed By: #### CMP, ELAINE ####[facility] Mpgtirwtbx[address] [place], [place] [address]Dr. Yilan ChangPotassium [Moles/Vol]4.1 mmol/LNormal3.5-5.1The [facility] Comment on above:Performed By: #### CMP, ELAINE ####[facility] Ykuxnhgdtk[address] [place], [place] [address]Dr. Yilan ChangProtein [Mass/Vol]7.4 g/dLNormal6.4-8.2The [facility] CenterComment on above:Performed By: #### CMP, ELAINE ####[facility] Swrkahyfuh[address] [place], [place] [address]Dr. Yilan ChangSodium [Moles/Vol]139 mmol/AMcwndc850-892Kys [facility] CenterComment on above:Performed By: #### CMP, ELAINE ####[facility] X[address]rsx[address]ve[address] [place], [place] [address]Dr. Yilan ChangUrea nitrogen [Mass/Vol]14.0 mg/dLNormal7.0-18.0The [facility] CenterComment on above: Performed By: #### CMP, ELAINE ####[facility] Eyjyouxabz[address] [place], [place] [address]Dr. Yilan ChangUrea nitrogen/Creatinine [Mass ratio] 30.4 mg/mgNormalThe [facility] CenterComment on above:Performed By: #### CMP, ELAINE ####[facility] Adrthgwwyq[address] [place], [place] [address]Dr. Janelllan ChangCBC AUTO DIFFon 44-94-6242UAQA #0.0 103/ulNormal0.0-0.1The [facility] CenterComment on above:Performed By: #### CBC ####[facility] Rbpigmf[address] [place], [place] [address]Dr.Yilan ChangBasophils/100 WBC (Bld)0.8 %Normal0.2-2.0The [facility] CenterComment on above:Performed By: #### CBC ####[facility] Qnuutrappr[address] [place], [place] [address]Dr.Yilan ChangEO #0.1 103/ulNormal0.0-0.7The [facility] CenterComment on above:Performed By: #### CBC ####[facility] Ruatphnldj[address] [place], [place] [address]Dr.David ChangEosinophils/100 WBC (Bld)3.0 %Normal 0.9-7.0The [facility] CenterComment on above:Performed By: #### CBC ####[facility] K[address]uywjxrvm[address] [place], [place] [address]Dr.David Cannon Erythrocyte distribution width (RBC) [Ratio]11.9 %Phwezj95.0-15.0The [facility] CenterComment on above:Performed By: #### CBC ####[facility] [address] [place], [place] [address]Dr.David ChangHematocrit (Bld) [Volume fraction]42.4 %Mvatlo37.0-48.0The [facility] CenterComment on above:Performed By: #### CBC ####[facility] Kr[address]gtslm[address] [place], [place] [address]Dr.David ChangHemoglobin (Bld) [Mass/Vol]13.3 g/dL Kgtvyh62.0-16.0The [facility] CenterComment on above:Performed By: #### CBC ####[facility] Bswnry[address]am[address] [place], [place] [address]Dr. David ChangIG #0.01 10e3/ulNormal0.00-0.03The [facility] CenterComment on above: Performed By: #### CBC ####[facility] Foraboqwjr[address] [place], [place] [address]Dr.David ChangIG %0.3 %Normal0.0-0.5The [facility] CenterComment on above:Performed By: #### CBC ####[facility] Rtbhcmhtmn[address] [place], [place] [address]Dr.Janelllan ChangLYMPH #1.6 103/ulNormal1.2-3.8The [facility] CenterComment on above:Performed By: #### CBC ####[facility] Tdctiqekpv[address] [place], [place] [address]Dr. David ChangLymphocytes/100 WBC (Bld)39.6 %Qnznif55.5-60.0The [facility] Comment on above:Performed By: #### CBC ####[facility] [address] [address]Dr.David CannonMANUAL DIFF REQNONormalThe [facility] CenterComment on above:Performed By: #### CBC ####[facility] Oyuuwyrwxv[address] [place], [place] [address]Dr.David CannonH (RBC) [Entitic mass]31.6 caMpyznl69.7-34.0The [facility] HospitalComment on above: Performed By: #### CBC ####[facility] Bvlppohxbb[address] [place], [place] [address]Dr.David CannonHC (RBC) [Mass/Vol]31.4 g/dLNormal 29.9-35.2The [facility] CenterComment on above:Performed By: #### CBC ####[facility] Aosgxjoymz[address] [place], [place] [address]Dr. Janellbraeden DavisV (RBC) [Entitic vol]100.7 fLCritically high81.0-99.0The [facility] CenterComment on above:Performed By: #### CBC ####[facility] [address] [place], [place] [address]DrGerryJanellbraeden CanonnMONO #0.4 103/ulNormal0.3-0.8The [facility] CenterComment on above:Performed By: #### CBC ####[facility] Xrheeulxpr[address] [place], [place] [address]Dr. David DavisMonocytes/100 WBC (Bld)11.2 %Normal1.7-12.0The [facility] Comment on above:Performed By: #### CBC ####[facility] Sr[address]vhyzli[address] [place], [place] [address]DrGerryJanellbraeden CannonNEUT #1.8 103/ulNormal1.4-6.5 The [facility] HospitalComment on above:Performed By: #### CBC ####[facility] [address]nzmwlzuuf[address] [place], [place] [address]Dr.Yilan Cannon Neutrophils/100 WBC (Bld)45.1 %Uaqxhb49.0-75.0The [facility] CenterComment on above:Performed By: #### CBC ####[facility] [address] [address]Dr.David Ordoñez mean volume (Bld) [Entitic vol] 9.1 fLCritically low9.5-13.5The [facility] CenterComment on above:Performed By: #### CBC ####[facility] [address] [address]Dr.David CannonPLT177 103/xjIcklpe211-526Owr [facility] CenterComment on above:Performed By: #### CBC ####[facility] [address] [address]Dr.David CannonRBC4.21 106/ulNormal4.20-5.40The [facility] CenterComment on above:Performed By: #### CBC ####[facility] [address] [address]Dr.David CannonWBC3.9 103/ul Critically low4.0-11.0The [facility] CenterComment on above:Performed By: #### CBC ####[facility] Yozuthngti[address] [place], [place] [address]Dr. David DavisCRCisco [id number] [Mass/Vol]mg/LNormal<=1.0The [facility] Comment on above:Performed By: #### ANARF #### [facility] [address] [address] [address] David CannonXR LSPINE 2_3 VIEWSon [id number] LSPINE 2_3 VIEWSEXAMINATION: XR LSPINE 2_3 VIEWS, XR SACRUM_COCCYX HISTORY: History of fall COMPARISON: 10/16/2021 CT exam FINDINGS: BONES: Rotatory levocurvature centered at L3. Kyphoplasty at L2. 40% anterior superior wedge compression fracture of T12. Left superior wedge compression fracture of L5. Minimal degenerative spondylosis. Afru-yl-esxhnxgj facet osteoarthropathy. DISC SPACES: Multilevel disc space narrowing PARASPINOUS: Negative. No paraspinous abnormality is seen. OTHER: Negative. IMPRESSION: Grossly stable from CT exam performed 4 days ago Electronically authenticated by: JANNA LAWTON Date: 2021-10-20 12:06NoWexner Medical CenterCULTURE URINEon [id number] URINEIsolate 1 Escherichia coli >100,000 cfu/mL of ORGANISM 1 Escherichia coli ANTIBIOTIC M.I.C RX STATUS Ampicillin 4 S F Ampicillin/Sulbactam <=2 S F Piperacillin/Tazobactam <=4 S F Cefazolin <=4 S F Ceftazidime <=1 S F Ceftriaxone <=1 S F Ertapenem <=0.5 S F Imipenem <=0.25 S F Amikacin <=2 S F Gentamicin <=1 S F Tobramycin <=1 S F Ciprofloxacin <=0.25 S F Levofloxacin <=0.12 S F Nitrofurantoin <=16 S F Trimethoprim/Sulfamethoxazole <=20 S FNormalThe [facility] CenterComment on above:Performed By: #### URCX ####[facility] Iunsreqegv[address] [place], [place] [address]Dr. David CannonAMYLASEon 76-94-2035Hhcqdwb [Catalytic activity/Vol]35 U/WWmwmyo40-481TppAdena Regional Medical CenterCommclaren [place] on above:Performed By: #### BMP, TSH #### [facility] [address] [place] [address] Dr. David Elizondo AUTO DIFFon 03-07-0425AZZJ #0.0 103/ulNormal0.0-0.1[facility] on above:Performed By: #### CBC ####[facility] Lkmdpvz[address] [place], [place] [address]Dr.Yilan CannonBasophils/100 WBC (Bld)0.7 %Normal0.2-2.0The [facility] Centerment on above:Performed By: #### CBC ####[facility] Vcsml[address] [place], [place] [address]DrSylvesterlan ChangEO #0.1 103/ulNormal0.0-0.7The [facility] on above:Performed By: #### CBC ####[facility] Yefcdoihvt[address] [place], [place] [address]Dr.David ChangEosinophils/100 WBC (Bld)1.0 %Normal 0.9-7.0The [facility] CenterComment on above:Performed By: #### CBC ####[facility] Prvfczh[address] [place], [place] [address]Dr.David Cannon Erythrocyte distribution width (RBC) [Ratio]11.7 %Yrlgwy75.0-15.0The [facility] CenterComment on above:Performed By: #### CBC ####[facility] Zwltuxxwph[address] [place], [place] [address]Dr.David ChangHematocrit (Bld) [Volume fraction]46.9 %Qocglr30.0-48.0The [facility] CenterComment on above:Performed By: #### CBC ####[facility] Fletphcmvm[address] [place], [place] [address]Dr.David ChangHemoglobin (Bld) [Mass/Vol]15.2 g/dL Twqolp63.0-16.0The [facility] CenterComment on above:Performed By: #### CBC ####[facility] Fcgmthgwzr[address] [place], [place] [address]Dr. David ChangIG #0.01 10e3/ulNormal0.00-0.03The [facility] CenterComment on above: Performed By: #### CBC ####[facility] Hvegeqxvtd[address] [place], [place] [address]Dr.Daivd ChangIG %0.2 %Normal0.0-0.5The [facility] CenterComment on above:Performed By: #### CBC ####[facility] Jdqrksrlha[address] [place], [place] [address]Dr.David ChangLYMPH #1.7 103/ulNormal1.2-3.8The [facility] CenterComment on above:Performed By: #### CBC ####[facility] Dbvrvcynqk[address] [place], [place] [address]Dr. David ChangLymphocytes/100 WBC (Bld)29.0 %Uwlost91.5-60.0The [facility] Comment on above:Performed By: #### CBC ####[facility] [address] [address]Dr.David DavisMANUAL DIFF REQNONormalThe [facility] CenterComment on above:Performed By: #### CBC ####[facility] Dberrliwup[address] [place], [place] [address]Dr.David CannonH (RBC) [Entitic mass]32.0 njRjyrtb61.7-34.0The [facility] HospitalComment on above: Performed By: #### CBC ####[facility] Ridcbwzxpz[address] [place], [place] [address]Dr.David CannonHC (RBC) [Mass/Vol]32.4 g/dLNormal 29.9-35.2The [facility] CenterComment on above:Performed By: #### CBC ####[facility] Gwimlbtaoc[address] [place], [place] [address]Dr. David CannonV (RBC) [Entitic vol]98.7 kTYocqtt32.0-99.0The [facility] Comment on above:Performed By: #### CBC ####[facility] Hethtvjhov[address] [place], [place] [address]DrMilton CannonMONO #0.4 103/ulNormal0.3-0.8 The [facility] CenterComment on above:Performed By: #### CBC ####[facility] Fuahafqeit[address] [place], [place] [address]DrMilton Cannon Monocytes/100 WBC (Bld)6.6 %Normal1.7-12.0The [facility] CenterComment on above: Performed By: #### CBC ####[facility] Auzrwoqdzj[address] [place], [place] [address]DrMilton CannonNEUT #3.7 103/ulNormal1.4-6.5The [facility] CenterComment on above:Performed By: #### CBC ####[facility] Jxcsrkkmay[address] [place], [place] [address]DrMilton CannonNeutrophils/100 WBC (Bld)62.5 %Quggga62.0-75.0The [facility] CenterComment on above:Performed By: #### CBC ####[facility] [address] [address]Dr.David Ordoñez mean volume (Bld) [Entitic vol]9.5 fLNormal9.5-13.5 The [facility] CenterComment on above:Performed By: #### CBC ####[facility] [address] [address]Dr.David FyfsdWRQ898 103/qrLcxpad778-770Afl [facility] CenterComment on above:Performed By: #### CBC ####[facility] Gpggwkykks[address] [place], [place] [address]Dr. David CannonRBC4.75 106/ulNormal4.20-5.40The [facility] CenterComment on above: Performed By: #### CBC ####[facility] Jgxmnykvth[address] [place], [place] [address]Dr.David CannonWBC5.9 103/ulNormal4.0-11.0The [facility] CenterComment on above:Performed By: #### CBC ####[facility] Drjhefhopd06[address] [place], [place] [address]Dr.David ChangCT ABD/PELV W CONon [id number] ABD/PELV W CONCT ABD/PELV W CON CLINICAL: Generalized abdominal pain. [...] Electronically authenticated by: JANNA DHALIWAL Date: 2021-10-16 15:43[facility] URINE PROFILEon 61-54-1357Ewoladzim Ql (U)NegativeNormal NEGATIVEAdena Regional Medical CenterComment on above:Performed By: #### JOSR, ERUR #### [facility] [address] [address] [address] David Louis (U)SL CLOUDYAbnormalCLEARThe [facility] CenterComment on above:Performed By: #### JOSR, ERUR #### [facility] [address] [address] [address] David Jin (U)YELLOWNormalYELLOWAdena Regional Medical CenterComment on above: Performed By: #### JOSR, ERUR #### [facility] [id number] David Chino micrscopic examination will be performed if indicated. NormalThe [facility] CenterComment on above:Performed By: #### UMICRO, ERUR #### [facility] [address] [address] [address] David CannonGlucose Ql (U)NegativeNormalNEGATIVEAdena Regional Medical CenterComment on above:Performed By: #### JOSR ERUR #### [facility] [address] [address] [address] David CannonHemoglobin Ql (U)NegativeNormalNEGATIVEAdena Regional Medical Center Comment on above:Performed By: #### JOSR ERUR #### [facility] [address] [address] [address] David CannonKetones Ql (U)TRACEAbnormalNEGATIVEAdena Regional Medical CenterComment on above:Performed By: #### JOSR ERUR #### [facility] [address] [place] [address] Dr. David CannonLEUKOCYTESSMALLAbnormalNEGATIVEAdena Regional Medical CenterComment on above:Performed By: #### JOSR ERUR #### [facility] [address] [place] [address] Dr. David CannonNitrite Ql (U)PositiveAbnormalNEGSelect Medical Specialty Hospital [facility] Comment on above:Performed By: #### JOSR ERUR #### [facility] [address] [place] [address] Dr. David CannonpH (U)5.5 [pH]Normal5-9Adena Regional Medical CenterComment on above: Performed By: #### JORJE OVALLESR #### [facility] [address] [place] [address] Dr. David CannonSPEC GRAVITY>=1.139Zdxsgqee8.005-<=1.025[facility] Comment on above:Performed By: #### JORJE OVALLESR #### [facility] [address] [place] [address] Dr. David CannonUA PROTEINNegativeNormwiNEGGOOD HOPE H[facility]PITAL/ TRACEAdena Regional Medical Center Comment on above:Performed By: #### JOSR ERUR #### [facility] [address] [place] [address] Dr. David Mayes MICRO INDINDICATEDNormalThe [facility] CenterComment on above: Performed By: #### JOSR, ERUR #### [facility] [address] [place] [address] Dr. David Jeff Qn (U)0.2 {Skip'U}/dLNormal0.2 - 1.0The [facility] CenterComment on above:Performed By: #### JOSR, ERUR #### [facility] [address] [place] [address] Dr. David CannonLIPASEon 52-02-1128Ktbuqj [Catalytic activity/Vol]93.0 U/LNormal 73.0-393.0The [facility] CenterComment on above:Performed By: #### DARRYN, TSH #### [facility] [address] [place] [address] Dr. David CannonPROF 14(COMP METB)on 73-08-0642Yqhahbf [Mass/Vol]4.1 g/dLNormal 3.4-5.0The [facility] CenterComment on above:Performed By: #### DARRYN, TSH #### [facility] [address] [place] [address] Dr. David CannonAlbumin/Globulin [Mass ratio]1.1 {ratio}NormalThe [facility] CenterComment on above:Performed By: #### DARRYN, TSH #### [facility] [address] [place] [address] Dr. David Pandey [Catalytic activity/Vol]88 U/AZvtitf97-645Dav [facility] CenterComment on above:Performed By: #### BMP, TSH #### [facility] [address] [place] [address] Dr. David Lopez [Catalytic activity/Vol]17 U/SArpuqy81-13Bvv [facility] CenterComment on above:Performed By: #### BMP, TSH #### [facility] [address] [place] [address] Dr. David Arrington gap [Moles/Vol]12.4 mmol/LNormalThe [facility] Comment on above:Performed By: #### BMP, TSH #### [facility] [address] [address] [address] David CannonAST [Catalytic activity/Vol]15 U/IKsetrx08-29Whi [facility] CenterComment on above:Performed By: #### BMP, TSH #### [facility] [address] [address] [address] David CannonBilirubin [Mass/Vol]0.2 mg/dLNormal0.2-1.0[facility] Comment on above:Performed By: #### BMP, TSH #### [facility] [address] [address] [address] David CannonCalcium [Mass/Vol]9.8 mg/dLNormal8.5-10.1[facility] Comment on above:Performed By: #### BMP, TSH #### [facility] [address] [place] [address] Dr. David CannonChloride [Moles/Vol]103 mmol/SJpdixp01-919EiiAdena Regional Medical Center Comment on above:Performed By: #### BMP, TSH #### [facility] [address] [place] [address] Dr. David CannonCO2 [Moles/Vol]30.6 mmol/PYbzzku37.0-32.0[facility] Comment on above:Performed By: #### BMP, TSH #### [facility] [address] [place] [address] Dr. David CannonCreatinine [Mass/Vol]0.85 mg/dLNormal0.55-1.02The [facility] CenterComment on above:Performed By: #### BMP, TSH #### [facility] [address] [place] [address] Dr. David AnguloGFR-AF BOLIVIAN>60Normal>=60The [facility] CenterComment on above:Performed By: #### BMP, TSH #### [facility] [address] [address] [address] David AnguloGFR-NON AF BOLIVIAN>60Normal>=60The [facility] CenterComment on above:Performed By: #### BMP, TSH #### [facility] [address] [place] [address] Dr. David CannonGlobulin (S) [Mass/Vol]3.8 g/dLNormCleveland Clinic Mercy HospitalComment on above:Performed By: #### BMP, TSH #### [facility] [address] [address] [address] David CannonGlucose [Mass/Vol]119 mg/dLCritically tony65-912Fxf [facility] CenterComment on above:Performed By: #### BMP, TSH #### [facility] [address] [place] [address] Dr. David CannonPotassium [Moles/Vol]4.0 mmol/LNormal3.5-5.1The [facility] Comment on above:Performed By: #### BMP, TSH #### [facility] [address] [place] [address] Dr. David CannonProtein [Mass/Vol]7.9 g/dLNormal6.4-8.2The [facility] Comment on above:Performed By: #### BMP, TSH #### [facility] [address] [place] [address] Dr. David CannonSodium [Moles/Vol]142 mmol/OBrxrun116-093Jzs [facility] Comment on above:Performed By: #### BMP, TSH #### [facility] [address] [place] [address] Dr. David CannonUrea nitrogen [Mass/Vol]12.0 mg/dLNormal7.0-18.0The [facility] CenterComment on above:Performed By: #### BMP, TSH #### [facility] [address] [place] [address] Dr. David Yousif nitrogen/Creatinine [Mass ratio]14.1 mg/mgNormCleveland Clinic Mercy HospitalComment on above:Performed By: #### BMP, TSH #### [facility] [address] [place] [address] Dr. Yilan ChangURINE MICROSCOPIC ONLYon 99-42-3359PFCBVAKESGGFROjpjmmbsRNNU SEEN [facility] on above:Performed By: #### JOSR, ERUR #### [facility] [address] [place] [address] Dr. David Hart identified Cx Nom (U)INDICATEDBluffton HospitalCommclaren northern [place] on above:Performed By: #### JOSR, ERUR #### [facility] [address] [place] [address] Dr. David Olguin OX CRYSTALSHolzer Medical Center – JacksonCommclaren [place] on above: Performed By: #### JOSR, ERUR #### [facility] [address] [place] [address] Dr. David ShermanSEJuanitaBANNERLiza SEENCity Hospital on above: Performed By: #### JOSR, ERUR #### [facility] [address] [place] [address] Dr. David Nair LM Nom (Urine sed)SEENAbnormalNONE SEENAdena Regional Medical CenterCommclaren northern [place] on above:Performed By: #### JOSR ERUR #### [facility] [address] [place] [address] Dr. David Galeanolial cells LM Ql (Urine sed)RARENormalNONE SEEN /RAREAdena Regional Medical CenterCommclaren northern [place] on above:Performed By: #### JOSR, ERUR #### [facility] [address] [place] [address] Dr. David Napoles CASTAshtabula General Hospital on above: Performed By: #### JOSR, ERUR #### [facility] [address] [place] [address] Dr. David TranCOMARTHAbnormalBANNER HEART HOSPITAL SEENCity Hospital on above:Performed By: #### JOSR, ERUR #### [facility] [address] [place] [address] Dr. David CannonHicrqZKU0-0Pwiadeol5-8Gbv [facility] HospitalComment on above:Performed By: #### JORJE OVALLESR #### [facility] [address] [place], [place] [address] [address]. David CannonDphadQXD78-264SeedsszpPKXI SEENThe [facility] CenterComment on above: Performed By: #### JORJE OVALLESR #### [facility] [address] [place], [place] [address] Dr. David CannonXR ANKLE RT MIN 3 VIEWSon 74-96-0335MB ANKLE RT MIN 3 VIEWSEXAM: Right ankle HISTORY: Pain after an injury last night. TECHNIQUE: 3 views of the right ankle were obtained. FINDINGS: There is no evidence of fracture or dislocation. There are no suspicious bone lesions. Soft tissues are normal. IMPRESSION: No acute findings. Electronically authenticated by: STEPHANIE DODD Date: 2021-10-05 10:56Bluffton HospitalMRI TSPINE WO W CONon [id number] TSPINE WO W CONEXAMINATION: MRI TSPINE WO W CON HISTORY: Collapse [...] Electronically authenticated by: CELIA CORMIER Date: 2021-09-01 07:29Bluffton HospitalCREATININEon 89-28-1780Fsmjkkepht [Mass/Vol]0.82 mg/dLNormal 0.55-1.02The [facility]icol HospitalComment on above:Performed By: #### CREA #### [facility] [address] [address] [address] David AnguloGFR-AF BOLIVIAN>60Normal>=60The [facility] CenterComment on above:Performed By: #### CREA #### [facility] [address] [address] [address] David AnguloGFR-NON AF BOLIVIAN>60Normal>=60The [facility]stow HospitalComment on above:Performed By: #### CREA #### [facility] [address] [address] [address] David Peterson Quick Testingon 90-72-0700CgxvppOjaxqsqtBayll Coast [employer] Other Quick Fluon 10-32-0641BGXMR Ab CF (S) [Titer]Negative [facility] [employer] Other FLUBV Ab CF (S) [Titer]NegativeMary Bridge Children'S Hospital [employer] Other Vital Signs Date TimeVital SignValuePerforming CixgxujwhOdxrnttj35-47-7273 13:04-0400Body oykecd904.48 cmNettie Iqbal MD Work Phone: [phone]10-13-2025 13:04-0400 Body mass index (BMI) [Ratio]18 kg/z8GuvhsyNettie Iqbal MD Work Phone: [phone])618-[address] [place], [place] 4771110-13-2025 13:04-0400 Body hjchev29.67 kgNettie Iqbal MD Work Phone: [phone] [place], [place] 4771110-13-2025 13:04-0400 Diastolic blood wkdjnozi62 mm[Hg]Nettie Iqbal MD Work Phone: [phone]10-13-2025 13:04-0400 Heart rate73 /minNettie Iqbal MD Work Phone: [phone]10-13-2025 13:04-0400 SaO2% (BldA) [Mass fraction]92 %Nettie Iqbal MD Work Phone: [phone] [place], [place] 6577410-13-2025 13:04-0400 Systolic blood zkqykezf104 mm[Hg]Nettie Iqbal MD Work Phone: [phone])[address] [place], [place] 6577407-23-2025 13:19-0400 Body xjyfvq438.48 cmNettie Iqbal MD Work Phone: [phone] [place], [place] 6577407-23-2025 13:19-0400 Body mass index (BMI) [Ratio]18.6 kg/f8QzzwldNettie Iqbal MD Work Phone: [phone])[address] [place], [place] 6577407-23-2025 13:19-0400 Body .26 kgNettie Iqbal MD Work Phone: [phone] [place], [place] 6577407-23-2025 13:19-0400 Diastolic blood rkntbzna10 mm[Hg]Nettie Iqbal MD Work Phone: [phone])[address] [place], [place] 6577407-23-2025 13:19-0400 Heart rate66 /Oriana Iqbal MD Work Phone: [phone])[address] [place], [place] 6577407-23-2025 13:19-0400 Respiratory rate18 /Oriana Iqbal MD Work Phone: [phone] [place], [place] 6577407-23-2025 13:19-0400 Systolic blood xfjhakun370 mm[Hg]Netite Iqbal MD Work Phone: [phone])[address] [place], [place] 6577407-15-2025 13:04-0400 Body ufyxfe735.48 cmNettie Iqbal MD Work Phone: [phone] [place], [place] 6577407-15-2025 13:04-0400 Body mass index (BMI) [Ratio]18.8 kg/q4KeuxghNettie Iqbal MD Work Phone: [phone])[address] [place], [place] 6577407-15-2025 13:04-0400 Body jeelcp72.89 kgNettie Iqbal MD Work Phone: [phone])[address] [place], [place] 65[address]407-15-2025 13:04-0400 Diastolic blood jpbjpaoj39 mm[Hg]Nettie Iqbal MD Work Phone: [facility]07-15-2025 13:04-0400 Heart rate86 /Oriana Iqbal MD Work Phone: [phone]07-15-2025 13:04-0400 SaO2% (BldA) [Mass fraction]92 %Nettie Iqbal MD Work Phone: [phone]07-15-2025 13:04-0400 Systolic blood rybpybov823 mm[Hg]Nettie Iqbal MD Work Phone: [phone]04-14-2025 13:09-0400 Body .48 cmMiami Valley Hospital04-14-2025 13:09-0400Body mass index (BMI) [Ratio]19.7 kg/p4WegjosicqMiami Valley Hospital04-14-2025 13:09-0400Body .98 kgMiami Valley Hospital04-14-2025 13:09-0400Diastolic blood mm[Hg][facility] 06-23-2024 13:09-0400Heart rate85 /[facility] 06-23-2024 13:09-0400Systolic blood hiuxcztg003 mm[Hg][facility]01-17-2025 13:03-0500Body iboljg725.48 cmNettie Iqbal MD Work Phone: [phone]01-17-2025 13:03-0500 Body mass index (BMI) [Ratio]18.6 kg/r9TpbsrnNettie Iqbal MD Work Phone: [phone]01-17-2025 13:03-0500 Body xybxfm90.37 kgNettie Iqbal MD Work Phone: [phone]01-17-2025 13:03-0500 Diastolic blood yqfugaxx08 mm[Hg]Nettie Iqbal MD Work Phone: [phone]01-17-2025 13:03-0500 Heart rate74 /Oriana Iqbal MD Work Phone: [facility]01-17-2025 13:03-0500 SaO2% (BldA) [Mass fraction]91 %Nettie Iqbal MD Work Phone: [phone]01-17-2025 13:03-0500 Systolic blood wmbfaprw445 mm[Hg]Nettie Iqbal MD Work Phone: [phone]01-10-2025 11:30-0500 Diastolic blood ozqryvfq72 mm[Hg]Everett Dunlap MD Work Phone: cHigh[facility] HospitalWuftfw84-70-6797 11:30-0500Heart rate62 /min Everett Dunlap MD Work Phone: cHigh[facility] HospitalEbjhfo40-89-4873 11:30-0500Respiratory rate 18 /minEverett Dunlap MD Work Phone: cHigh[facility] HospitalEubxve34-20-5332 11:30-7637HhY1% (BldA) [Mass fraction]96 %Everett Dunlap MD Work Phone: cHigh[facility] District HospitalDsisdo08-92-5586 11:30-0500Systolic blood mm[Hg]Everett Dunlap MD Work Phone: cHighland District HospitalLrurxz65-18-2034 10:32-0500Body temperature 97.2 [degF]Everett Dunlap MD Work Phone: cHighland District HospitalAfkbkw13-11-2040 16:03-0500Body dafwrl369.48 cmMD Nettie Iqbal Work Phone: [facility]11-06-2024 16:03-0500 Body mass index (BMI) [Ratio]18.6 kg/m2MD Nettie Iqbal Work Phone: [phone]11-06-2024 16:03-0500 Body vbfqiolveix66.3 [degF]MD Nettie Iqbal Work Phone: [phone]11-06-2024 16:03-0500 Body otoxzw07.35 kgMD Nettie Iqbal Work Phone: [phone] [place], [place] 4771111-06-2024 16:03-0500 Diastolic blood vpkubgtl37 mm[Hg]MD Nettie Iqbal Work Phone: [phone]11-06-2024 16:03-0500 Heart rate77 /minMD Nettie Iqbal Work Phone: [phone]11-06-2024 16:03-0500 Respiratory rate16 /minMD Nettie Iqbal Work Phone: [phone]11-06-2024 16:03-0500 SaO2% (BldA) [Mass fraction]96 %MD Nettie Iqbal Work Phone: [phone])[address] [place], [place] [address]77411-06-2024 16:03-0500 Systolic blood zkcngwow162 mm[Hg]MD Nettie Iqbal Work Phone: [phone] [place], [place] 6577410-15-2024 13:30-0400 Body byfwop002.48 cmMD Nettie Iqbal Work Phone: [phone])[address] [place], [place] 6577410-15-2024 13:30-0400 Body mass index (BMI) [Ratio]19.8 kg/m2MD Nettie Iqbal Work Phone: [phone] [place], [place] 6577410-15-2024 13:30-0400 Body uqdqws94.1 kgMD Nettie Iqbal Work Phone: [phone])[address] [place], [place] 6577410-15-2024 13:30-0400 Diastolic blood wkvracja71 mm[Hg]MD Nettie Iqbal Work Phone: [phone])[address] [place], [place] 6577410-15-2024 13:30-0400 Heart rate71 /minMD Nettie Iqbal Work Phone: [phone] [place], [place] 6577410-15-2024 13:30-0400 Respiratory rate16 /minMD Nettie Iqbal Work Phone: [phone] [place], [place] [address]77410-15-2024 13:30-0400 SaO2% (BldA) [Mass fraction]95 %MD Nettie Iqbal Work Phone: [facility]10-15-2024 13:30-0400 Systolic blood lkkfkmyy496 mm[Hg]MD Nettie Iqbal Work Phone: [phone]10-09-2024 11:14-0400 Body rmcelw30 kgEverett Dunlap MD Work Phone: [facility] Pltsqu37-53-1335 11:14-0400Diastolic blood rnhlwehd25 mm[Hg]Everett Dunlap MD Work Phone: [facility] Iungcu14-93-4966 11:14-0400Heart rate75 /min Everett Dunlap MD Work Phone: [facility] Kmtyys87-19-2613 11:14-0400Systolic blood pieuupmf928 mm[Hg]Everett Dunlap MD Work Phone: [facility] HospitalUojkuj63-54-2667 09:18-0400Body ikrhut376.48 cmMD Nettie Iqbal Work Phone: [phone]09-16-2024 09:18-0400 Body mass index (BMI) [Ratio]18.3 kg/m2MD Nettie Iqbal Work Phone: [phone]09-16-2024 09:18-0400 Body gtkmgo83.35 kgMD Nettie Iqbal Work Phone: [phone] [place], [place] [address]1109-16-2024 09:18-0400 Diastolic blood yfofhorr98 mm[Hg]MD Nettie Iqbal Work Phone: [phone]09-16-2024 09:18-0400 Heart rate80 /minMD Nettie Iqbal Work Phone: [phone]09-16-2024 09:18-0400 Systolic blood eclonspu049 mm[Hg]MD Nettie Iqbal Work Phone: [phone]07-15-2024 13:09-0400 Body .48 cm[facility]07-15-2024 13:09-0400Body mass index (BMI) [Ratio]18.3 kg/w9FzxymlpfmMiami Valley Hospital07-15-2024 13:040Body ydnywo33.47 kgMi[facility]07-15-2024 13:090400Diastolic blood ppaymqje13 mm[Hg][facility] 09-24-2023 13:090400Heart rate73 /minMi[facility] 09-24-2023 13:090400Systolic blood mm[Hg][facility]06-01-2024 11:04-0400Body mfevuw812.48 cmMD Nettie Iqbal Work Phone: [facility]06-01-2024 11:04-0400 Body mass index (BMI) [Ratio]19.1 kg/m2MD Nettie Iqbal Work Phone: [facility]06-01-2024 11:04-0400 Body vzanxnzwdhi75.4 [degF]MD Nettie Iqbal Work Phone: [facility]06-01-2024 11:04-0400 Body jcwcho81.28 kgMD Nettie Iqbal Work Phone: [facility]06-01-2024 11:04-0400 Heart rate67 /minMD Nettie Iqbal Work Phone: [phone]06-01-2024 11:04-0400 Respiratory rate18 /minMD Nettie Iqbal Work Phone: [phone]06-01-2024 11:04-0400 SaO2% (BldA) [Mass fraction]91 %MD Nettie Iqbal Work Phone: [facility]04-12-2024 13:02-0400 Body .48 cmMi[facility]04-12-2024 13:02-0400Body mass index (BMI) [Ratio]19.5 kg/y9ScyhjujajMiami Valley Hospital04-12-2024 13:020400Body twffow26.59 kgMi[facility]04-12-2024 13:02-0400Diastolic blood scqhtuke08 mm[Hg][facility] 06-22-2023 13:02-0400Heart rate69 /minMi[facility] 06-22-2023 13:02-0400Systolic blood celryqkw976 mm[Hg][facility]04-05-2024 15:16-0400Diastolic blood wwktnqao51 mm[Hg]Dupage [address] [place], [place] [address]SalonBookr BAJGUX09-15-4953 15:16-0400Heart rate59 /minLorain [address] [place], [place] [address]Bright.mdCNZCIJ90-25-2533 15:16-0400Respiratory rate12 /minLorain [address] [place], [place] [address]Bright.mdQPSVVV86-09-3231 15:16-6890UkO2% (BldA) [Mass fraction]95 %Dupage [address] [place], [place] [address]Bright.mdIPKMEA70-42-4246 15:16-0400Systolic blood yegbheby025 mm[Hg]Dupage [address] [place], [place] [address]Bright.mdJBKMEA80-68-1439 11:59-0400Body lhvdhodlapj23.29 [degF]Dupage [address] [place], [place] [address]01-31-2024 14:20-0500Body ojyqea384.48 cmSwiftypeica [employer] Other [facility]01-31-2024 14:20-0500 Body mass index (BMI) [Ratio]19.75 kg/a7Amuqzom [employer] Other [employer] Other 01-31-2024 14:20-0500Body .99 kgJessica [employer] Other [place] Other 01-31-2024 14:20-0500Body yknacs23.98 kg[facility]12-19-2023 11:00-0500Body .48 cmSwiftypeica [employer] Other [place] Other 12-19-2023 11:00-0500Body mass index (BMI) [Ratio] 19.75 kg/s5Lkleyrl [employer] Other [employer] Other 12-19-2023 11:00-0500Body qoubyt79.99 kgAna Kim Other [facility] Other 08-15-2023 13:00-0400Body mbvokk947.48 cmNettie Kathy Other [employer] Other 08-15-2023 13:00-0400Body mass index (BMI) [Ratio] 21.21 kg/o0Bvcspq Kathy Other [employer] Other 08-15-2023 13:00-0400Body rakeve26.62 kgNettie Kathy Other [employer] Other 08-15-2023 13:00-0400Diastolic blood fruybxgj87 mm[Hg] Nettie Iqbal Other [employer] Other 08-15-2023 13:00-0400Systolic blood mvroofft380 mm[Hg] Nettie Iqbal Other [facility] Other 06-29-2023 14:15-0400Body .48 Tara Barksdale Other [employer] Other 06-29-2023 14:15-0400Body mass index (BMI) [Ratio] 20.48 kg/z7Qgsdvybtrk Barksdale Other [employer] Other 06-29-2023 14:15-0400Body auipno64.8 kgLark Barksdale Other [employer] Other 06-29-2023 14:15-0400Diastolic blood vrveibqu18 mm[Hg] Kiran Barksdale Other [employer] Other 06-29-2023 14:15-0400Systolic blood diszkkxs372 mm[Hg] Kiran Barksdale Other [employer] Other 06-20-2023 14:00-0400Body otqthh331.48 cmShamekalesa Kathy Other [employer] Other 06-20-2023 14:00-0400Body mass index (BMI) [Ratio]20.3 kg/m5DtgebfNettie Iqbal Other [employer] Other 06-20-2023 14:00-0400Body jwtotj49.35 kgNettie Iqbal Other [employer] Other 06-20-2023 14:00-0400Diastolic blood bgzheqtc55 mm[Hg] Nettie Iqbal Other [employer] Other 06-20-2023 14:00-0400Systolic blood utogiivp885 mm[Hg] Nettie Iqbal Other [employer] Other 06-16-2023 16:50-0400Body vsuboc841.48 Jeffrey Flores Other [employer] Other 06-16-2023 16:50-0400Body mass index (BMI) [Ratio] 20.59 kg/c3FodwwcSandra Flores Other [employer] Other 06-16-2023 16:50-0400Body rtgnrynadeq82.6 [degF]Sandra Flores Other [employer] Other 06-16-2023 16:50-0400Body jagaqy46.08 kgSandra Flores Other [employer] Other 06-16-2023 16:50-0400Diastolic blood mm[Hg] Sandra Flores Other [employer] Other 06-16-2023 16:50-0400Respiratory rate20 /minSandra Flores Other [employer] Other 06-16-2023 16:50-5600HjQ6% (BldA) [Mass fraction]94 % Sandraneftali Flores Other [employer] Other 06-16-2023 16:50-0400Systolic blood vjknlsyh595 mm[Hg] Sandra Flores Other [employer] Other 05-25-2023 14:30-0400Body nmuqor942.48 cmNettie Iqbal Other [employer] Other 05-25-2023 14:30-0400Body mass index (BMI) [Ratio] 21.21 kg/s5TplbzdNettie Iqbal Other [employer] Other 05-25-2023 14:30-0400Body ouxjti39.62 kgNettie Iqbal Other [employer] Other 05-25-2023 14:30-0400Diastolic blood zkooxgfy46 mm[Hg] Nettie Iqbal Other [employer] Other 05-25-2023 14:30-0400Systolic blood bekrymbl116 mm[Hg] Nettie Kathy Other [employer] Other 04-11-2023 16:20-0400Body jurbsn799.48 cmAneo Sanford Other [employer] Other 04-11-2023 16:20-0400Body mass index (BMI) [Ratio] 21.95 kg/y5ImaldVanessa Sanford Other [employer] Other 04-11-2023 16:20-0400Body bgvsgxiftln27.9 [degF]Vanessa Sanford Other [employer] Other 04-11-2023 16:20-0400Body ywmddp86.43 kgVanessa Sanford Other [employer] Other 04-11-2023 16:20-0400Diastolic blood cbpzgowt61 mm[Hg] Vanessa Sanford Other [employer] Other 04-11-2023 16:20-0400Respiratory rate18 /minVanessa Sanford Other [employer] Other 04-11-2023 16:20-6685NaI4% (BldA) [Mass fraction]99 % Vanessa Sanford Other [employer] Other 04-11-2023 16:20-0400Systolic blood zynrttbc650 mm[Hg] Vanessa Sanford Other [employer] Other 04-07-2023 12:30-0400Body nyguaj594.48 cmBenjamin Ball Other [employer] Other 04-07-2023 12:30-0400Body mass index (BMI) [Ratio]22.2 kg/i2Avqzotzv Ball Other [employer] Other 04-07-2023 12:30-0400Body ojvgnm67.07 kgBenjamin Ball Other [employer] Other 04-07-2023 12:30-0400Diastolic blood rfmeqxzw87 mm[Hg] Phani Ball Other [employer] [place] Other 04-07-2023 12:30-0400Respiratory rate12 /minBenjamin Ball Other [facility] [employer] Other 04-07-2023 12:30-0400Systolic blood mibfytyq481 mm[Hg] Phani Ball Other [employer] Other 03-20-2023 14:45-0400Body zjizin574.48 cmBenjamin Ball Other [employer] Other 03-20-2023 14:45-0400Body mass index (BMI) [Ratio] 21.25 kg/g0Flxhwcqu Ball Other [employer] Other 03-20-2023 14:45-0400Body nbgzaf00.71 kgBenjamin Ball Other [employer] Other 03-20-2023 14:45-0400Diastolic blood sezjqiun56 mm[Hg] Phani Ball Other [employer] Other 03-20-2023 14:45-0400Respiratory rate12 /minBenjamin Ball Other [facility] [employer] Other 03-20-2023 14:45-0400Systolic blood qwuonecs482 mm[Hg] Phani Ball [facility] [employer] Other 01-03-2023 15:30-0500Body owzuza467.48 cmLawluciajoyce Barksdale Other [facility] [employer] Other 01-03-2023 15:30-0500Body mass index (BMI) [Ratio] 19.57 kg/o5Dmixfrkkmeron Barksdale Other [employer] Other 01-03-2023 15:30-0500Body tynohb35.54 kgLawrmeron Barksdale Other [facility] [facility] [place] Other 01-03-2023 15:30-0500Diastolic blood xahnybak59 mm[Hg] Kiran Barksdale Other [employer] Other 01-03-2023 15:30-0500Systolic blood mm[Hg] Kiran Barksdale Other [facility] [facility] [employer] Other 11-11-2022 11:40-0500Diastolic blood hbjecgkp84 mm[Hg] DO Phani Ball Work Phone: [facility]11-11-2022 11:40-0500 Heart rate79 /minDO Phani Ball Work Phone: [facility]11-11-2022 11:40-0500 Respiratory rate18 /minDO Phani Ball Work Phone: [facility]11-11-2022 11:40-0500 SaO2% (BldA) [Mass fraction]97 %DO Phani Ball Work Phone: [phone] [place], [place] [address]1111-11-2022 11:40-0500 Systolic blood ccixmgsp058 mm[Hg]DO [employer] Work Phone: [facility]11-11-2022 09:05-0500 Body ozvdup861.48 cmDO Phani [employer] Work Phone: [facility]11-11-2022 09:05-0500 Body krfvistmvuw00.2 [degF]DO Phani [employer] Work Phone: [phone]11-11-2022 09:05-0500 Body .25 kgDO Phani [employer] Work Phone: [phone]09-30-2022 12:00-0400 Body .48 Tara Barksdale Other [employer] Other 09-30-2022 12:00-0400Body mass index (BMI) [Ratio] 21.58 kg/v2Ghtpvfhu Shamir Other [employer] Other 09-30-2022 12:00-0400Body lltwbo77.52 kgLawrmeron Shamir Other [employer] Other 06-27-2022 17:00-0400Body .48 cmDacaesar Torres Other [employer] Other 06-27-2022 17:00-0400Body mass index (BMI) [Ratio] 23.01 kg/x6Ynvggz Rosemaries Other [employer] Other 06-27-2022 17:00-0400Body myajnh21.06 kgDanimarshall Ramónkens Other [employer] Other 04-04-2022 10:45-0400Body vmiozp981.48 cmDamark Pina Other [employer] Other 04-04-2022 10:45-0400Body mass index (BMI) [Ratio] 23.23 kg/h5Puzijmark Pina Other [employer] Other 04-04-2022 10:45-0400Body npwree39.61 kgDamark Pina Other [employer] Other 04-04-2022 10:45-0400Diastolic blood nahxkzjf028 mm[Hg]Janna Bakerrenzo Other [employer] Other 04-04-2022 10:45-0400Systolic blood akseqpns013 mm[Hg] Janna Pina Other [employer] Other 02-02-2022 10:05-0500Body ishymc286.48 cmPamela Marisa Other [employer] Other 02-02-2022 10:05-0500Body mass index (BMI) [Ratio] 22.86 kg/t4Lhiyos Marisa Other [employer] Other 02-02-2022 10:05-0500Body diehgnizrav01.2 [degF]Shira Cunningham Other [employer] Other 02-02-2022 10:05-0500Body nkbern24.7 kgPamela Marisa Other [employer] Other 02-02-2022 10:05-0500Respiratory rate18 /minPaselin Cunningham Other [employer] Other 02-02-2022 10:05-6162MjF5% (BldA) [Mass fraction]95 % Shira Cunningham Other [employer] Other 11-11-2021 12:00-0500Body .48 cmDavid Hykes Other [employer] Other 11-11-2021 12:00-0500Body mass index (BMI) [Ratio] 23.04 kg/p5Csxrx Hykes Other [employer] Other 11-11-2021 12:00-0500Body .15 kgDavid Hykes Other [employer] Other 09-28-2021 15:30-0400Body nldoka660.48 cmDavid Hykes Other [employer] Other 09-28-2021 15:30-0400Body mass index (BMI) [Ratio] 22.86 kg/t9Eraza Hykes Other [employer] Other 09-28-2021 15:30-0400Body nxwhme76.7 kgDavid Hykes Other [employer] Other Encounters Encounter DateEncounter TypeCare ProviderFacilityStart: 12-22-2024 End: 93-56-9890irkdmuthbzRjxzwc E Braun MD Work Phone: [facility] Work Phone: Start: 12-22-2024 End: 47-60-5740Zlysifq encounter procedureNettie Iqbal MD-[facility] Work Phone: Start: 11-17-2024 End: 53-46-3490kmwhvtjyrsYnemxbf Vytautas Giedraitis MDFacility:[facility] Start: 11-03-2024 End: 38-03-3348yzpdrqcqdwXnneisw Vytautas Giedraitis MDFacility:[facility] Start: 10-20-2024 End: 63-33-8037bakwfasdssRiebgqw Vytautas Giedraitis MDFacility:[facility] Start: 10-01-2024 End: 35-51-1457vtaywkibagNmuhtz E Braun MD Work Phone: [facility] Work Phone: Start: 10-01-2024 End: 28-08-7541Meaiveh encounter procedureObed Murray APRN-[facility] Work Phone: Start: 09-23-2024 End: 94-27-6762kbmzgwtusyMefzoq E Braun MD Work Phone: [facility] Work Phone: Start: 09-23-2024 End: 57-58-7937Hkccdmq encounter Henri Iqbal MD-[facility] Work Phone: Start: 09-15-2024 End: 29-43-0786swyrzxikynJwzxrdy Vytautas Giedraitis MDFacility:[facility] Start: 81-72-9105Oxw-patient / Non-visitJaymie Duncan EDITORIAL ASSISTANT-C-[facility] Work Phone: Start: 07-15-2024 End: 35-63-3826Xmvwjtsro encounterEverett Dunlap MD Work Phone: GastroenterologyStart: 07-05-2024 End: 51-26-1924Ipuhwgr encounter procedureNettie Iqbal MD Work Phone: [facility] [place] Work Phone: Start: 07-05-2024 End: 14-81-7849wzsrmmiovmDtmmmo E Braun MD Work Phone: [facility] Work Phone: Start: 06-23-2024 End: 54-44-5250bemnxqmfycYpytojyefSelect [facility] Work Phone: Start: 06-23-2024 End: 99-12-3390Zbgmqsl encounter procedureF[facility] Group[facility] Work Phone: Start: 03-31-2024 End: 57-91-4605Xpxhznjfq encounterEverett Dunlap MD Work Phone: GastroenterologyComment on above:Follow Up Tests Results (Cytology---->recommend MRCP in [address] Erwin)Start: 03-28-2024 End: 89-65-3667ryyvqgfnszIhsmbs E Braun MD Work Phone: [facility] Work Phone: Start: 03-28-2024 End: 34-23-2435Ndbffrd encounter Henri Iqbal MD Work Phone: [facility] Physician [facility] Work Phone: Start: 37-50-3671prcahyytmrFMOX [facility]: [facility]-21[facility]2024 End: 65-84-1211Bcljgdxdfz hospital visit by Adrianna Dunlap MD Work Phone: [facility] Endoscopy - ENDOComment on above: Pancreatic cyst [K86.2]Start: 03-20-2024 End: 23-04-0644Qclcdjrjx encounterEverett Dunlap MD Work Phone: [facility] Endoscopy - ENDOStart: 03-19-2024 Registered Alejandra Iqbal MD Work Phone: [facility]- CredibleStart: 03-14-2024 End: 98-46-3746yoafstiiexKvthhu Issa MD Work Phone: [phone]-[facility] Endoscopy - ENDOStart: 02-14-2024 End: 10-55-3122Rpibquknh encounterEverett Dunlap MD Work Phone: GastroenterologyStart: 02-13-2024 End: 68-85-6782Gdfelkwqa encounterEverett Dunlap MD Work Phone: [phone] [place] [address] Endoscopy - ENDOStart: 02-05-2024 End: 72-60-1498hfwftcuzbwGacjfq Issa MD Work Phone: [phone] Endoscopy - ENDOStart: 01-16-2024 End: 79-78-4655Lcqpknxr ReferredMD Nettie Iqbal Work Phone: [facility] [place] Work Phone: Start: 01-16-2024 End: 74-53-5128hialqetyluPW Marcia E Braun Work Phone: [facility] Work Phone: Start: 01-16-2024 End: 33-37-9118Tutcwxw encounter procedureMD Nettie Iqbal Work Phone: [facility] Work Phone: Start: 76-51-2438Pme-patient / Non-visitMD Nettie Iqbal Work Phone: [facility] Work Phone: Start: 07-16-4657Esu-patient / Non-visitMD Nettie Iqbal Work Phone: [facility] Work Phone: Start: 60-46-4388Hsrkxjxpzo RecurringMD Nettie Iqbal Work Phone: [facility]- CredibleStart: 12-25-2023 End: 46-73-1235yzistvnfloDR Marcia E Braun Work Phone: [place] [address] Work Phone: Start: 12-25-2023 End: 87-85-9688Oauattl encounter procedureMD Nettie Iqbal Work Phone: [facility] GroupFort [facility] Hospital Work Phone: Start: 12-19-2023 End: 13-47-8922yxhuqlcybwOALMGN ISSAFacility:[facility] Centertart: 12-19-2023 End: 72-69-9335Hjnpoym encounter procedureEverett Dunlap MD Work Phone: GastroenterologyComment on above:Chronic LUQ pain (Primary Dx); Weight loss; Pancreatic cyst; Family history of colon cancer in father; SmokerStart: 59-56-7231Cng-patient / Non-visitMD Nettie Iqbal Work Phone: [facility] GroupCh[facility] Work Phone: Start: 75-49-4334Ipv-patient / Non-visitMD Nettie Iqbal Work Phone: [facility] GroupOver[facility] Work Phone: Start: 92-80-8359Gxjjjxtrcp RecurringMD Nettie Iqbal Work Phone: [facility] CredibleStart: 11-30-2023 End: 21-25-7767Kohiisamh encounterEverett Dunlap MD Work Phone: GastroenterologyComment on above:Procedure (Referred for EUS--->needs OV first)Start: 11-26-2023 End: 92-28-8765rwbaaumcviSH Marcia E Braun Work Phone: [facility] Work Phone: Start: 11-26-2023 End: 39-47-1020Mpmpwhx encounter procedureMD Nettie Iqbal Work Phone: [facility] GroupMOHA[facility] G[facility] Work Phone: Start: 11-02-2023 End: 36-49-9073Fkuredk encounter procedureMD Nettie Iqbal Work Phone: [facility]-MRI [place] Work Phone: Start: 11-02-2023 End: 65-19-1065xigwrjedutHS Nettie Iqbal Work Phone: [facility] Work Phone: Start: 09-24-2023 End: 91-36-6047ubhpmyvcsfHxemanhjkSelect Medical [facility] Work Phone: Start: 09-24-2023 End: 98-13-5732Mcuxrzv encounter procedureFirprestons Physician Group-[facility] Work Phone: Start: 08-11-2023 End: 13-57-0249iheqgpmjefUZ Marcia Braun Work Phone: [facility] Work Phone: Start: 08-11-2023 End: 44-16-5359Jwqmjpp encounter procedureMD Nettie Iqbal Work Phone: [facility] Work Phone: Start: 07-26-2023 End: 75-90-6311Pmmcqkf encounter procedureMD Nettie Iqbal Work Phone: [facility] Work Phone: Start: 06-22-2023 End: 55-02-1731Krgvkkwh ReferredMD Nettie Iqbal Work Phone: [facility]-Lab [place] Work Phone: start: 06-22-2023 End: 62-59-5862nybtxxlxwmUkdtiykieSelect Medical [facility] Hospital Work Phone: Start: 06-22-2023 End: 21-56-8745Fxprpgx encounter procedureFiryane Physician Group-[facility] Work Phone: Start: 06-15-2023 End: 72-52-8368aeuhcpholnAKPTQMethodist Dallas Medical Centertart: 06-15-2023 End: 05-33-3293Ravkeuemud hospital visit by Elise Carbajal MD Work Phone: [facility] Special ProcedureComment on above: Compression fracture of T12 vertebra with delayed healing, subsequent encounter; Other osteoporosis with current pathological fracture, vertebra(e), initial encounter for fracture (HCC)Start: 06-13-2023 End: 88-75-3172pdpyqfqxtyYGAGQMercy Health West Hospitaltart: 13-06-0399Trt- patient / Non-visitFirelands Physician Group-[facility] Work Phone: Start: 04-19-2023 End: 38-30-3023Hqyhqeokys hospital visit by physicianTrenton External FilmEF RAD EXTERNAL FILM VIRTUALComment on above:ArrivedStart: 04-13-2023 End: 89-72-0359veycdgxzowYqhzqe Braun Other [employer] Other Start: 19-59-9955Xfqvkdnbv encounterNettie [facility] Community Hospitaltart: 04-11-2023 End: 25-73-2869jxmkzjbnnaAysafcj Springer Other [employer] Other start: 03-35-8562Afldbv outpatient visit 15 minutes [facility]Cent[facility] NeurosurgeryStart: 04-11-2023 End: 72-73-3138Nufmkgl encounter procedureRicardo Physician Group-Start: 03-08-2023 End: 69-14-0109rncdzwmlyfLxksae Braun Other [place] Other Start: 84-62-3329Gtnbxm outpatient visit 15 minutes Nettie IqbalSelect Medical [facility] ClinicStart: 73-73-7250Fsphqeseq encounterMarricky Bassett Army Community Hospitaltart: 03-02-2023 End: 44-33-1673eeppizylklOknplpj Springer Other [employer] Other start: 57-44-7671Nnagnjfxt encounterJessica Kim [facility] Pain ManagementStart: 50-02-0021Rbancc outpatient visit 25 minutesJessica SpringerG [facility] NeurosurgeryStart: 02-27-2023 End: 69-79-1237jpwhtzgqheBS Nettie Iqbal Work Phone: [facility] Work Phone: Start: 02-27-2023 End: 67-22-7479Knecyfr encounter procedureMD Nettie Iqbal Work Phone: [facility] Work Phone: Start: 02-20-2023 End: 50-27-6876wgqvrflbekQcoejm Braun Other [employer] Other Start: 24-34-6058Fwwawpbiw encounterMarcia [facility] ClinicStart: 02-15-2023 End: 22-67-2897syuxpvnosvRpdkqw Kathy Other [employer] Other Start: 44-63-5304Swgolmnxg encounterMarcia [facility] Community Hospitaltart: 02-12-2023 End: 61-87-4277mofuqrvforAtvprr Iqbal Other [employer] Other Start: 18-35-0829Zckqgocrp encounterMarcia [facility] ClinicStart: 01-29-2023 End: 11-77-1956bkypydtlicEhwqenja Shamir Other [employer] Other Start: 95-72-5048Uepxyeabx encounterLawrence Shamir [facility] GastroenterologyStart: 01-26-2023 End: 38-96-3154pvdesqwofgObiskbkh Shamir Other [place] Other Start: 75-62-9119Lfdzvxrhi encounterLark ROME GastroenterologyStart: 01-25-2023 End: 73-45-6099xcyawrmvysVpbbsg Braun Other [employer] Other Start: 51-26-5571Hxrlciarj encounterMarcia KathySelect Medical [facility] ClinicStart: 01-23-2023 End: 43-41-5753dxbhfhafpdNUBDT A HUDDLESTONSt. [facility] AvailableStart: 01-22-2023 End: 75-90-0858depyxpdwmzRramdh Braun Other [employer] Other Start: 76-57-4584Zfkmobavj encounterMarcia [facility] ClinicStart: 01-15-2023(Televisit) TelevisitMarcia [facility] ClinicStart: 01-15-2023 End: 99-13-3741nwtyyfquakIhmpug Braun Other [place] Other Start: 01-12-2023 End: 30-74-6642paioibyrwkOweegy Braun Other [employer] Other Start: 21-78-2964Shviobnbk encounterMarcia [facility] ClinicStart: 01-11-2023 End: 51-75-3570cmqlxgshthNA Marcia E Braun Work Phone: [facility] Work Phone: Start: 01-11-2023 End: 61-77-5119Cphoehm encounter procedureMD Nettie Iqbal Work Phone: [facility] Work Phone: Start: 12-28-2022 End: 08-65-1117ontiuihbzpHqlmnz Braun Other [place] Other Start: 27-51-1784Yxloigbph encounterMarcia [facility] 12-26-20[facility](Televisit) TelevisitMardenishaa [facility] ClinicStart: 12-26-2022 End: 47-29-7922itafxblunfHbtbzu Iqbal Other [facility] [place] Other Start: 93-16-5152Xcuqnyqlv encounterMarcia [facility] ClinicStart: 12-25-2022 End: 03-59-8457vakhczeqycDcyhgyz R [employer] Other Start: 12-25-2022 End: 25-41-8971Lfooesu encounter procedurePatrick R RAMOS [facility] start: 12-18-2022 End: 29-56-2803Rwexro outpatient [facility] [address] for incurablesLibby Muñoz PA-C Work Phone: [facility] CenterComment on above:Pancreas cyst (Primary Dx)Start: 11-28-2022 End: 29-44-7452rufwbcqmusBripsrtm Shamir Other [facility] [place] Other Start: 25-85-0490Qztstsuhc encounterLawrence Shamir [facility]astroenterologyStart: 11-27-2022 End: 91-36-9360lxxfmcxstdVaasuq Iqbal Other [facility] [facility] [place] Other Start: 71-33-3067Ypkxoosxp encounterMarcia Teodoro [facility] ClinicStart: 11-23-2022(Televisit) TelevisitMarcia Teodoro [facility] ClinicStart: 11-23-2022 End: 15-01-1869xhivezdggmGhoclk Iqbal Other [employer] Other Start: 11-22-2022 End: 94-59-7266nfpqkeoztlQbtrwg Braun Other [employer] Other Start: 13-70-3944Prqjhgchl encounterMarcia KathySelect Medical [facility] ClinicStart: 11-20-2022 End: 24-26-6057Eigwtkik ReferredMD Nettie Iqbal Work Phone: [facility] Work Phone: Start: 11-20-2022 End: 08-04-1198Nliztdm encounter procedureMD Nettie Iqbal Work Phone: [facility] Work Phone: Start: 11-20-2022 End: 03-43-0704nfsabvoqgxWJ Marcia E Braun Work Phone: [facility] Work Phone: Start: 40-24-6614Opydpormx encounterMarcia Teodoro [facility] ClinicStart: 11-15-2022 End: 48-27-2455hahsnqxplnBvotkh Braun Other [employer] Other Start: 81-23-8911Mwrnrpopf encounterMarcia KathySelect Medical [facility] Rehabilitation Hospital ClinicStart: 11-09-2022 End: 90-82-9960lqxzzzxyjsVG Marcia E Braun Work Phone: [facility] Work Phone: Start: 11-09-2022 End: 29-10-9721Bdcplpn encounter procedureMD Nettie Iqbal Work Phone: [facility]-MRI Main [place] Work Phone: Start: 11-02-2022 End: 97-91-0963llpyskajluZtvtpx Braun Other [place] Other Start: 70-11-6772Mwpzvbenm encounterMarcia Teodoro [facility] ClinicStart: 10-24-2022 End: 52-29-5049rffgufyuclKxcvef Iqbal Other noFonJax [place] Other Start: 36-24-8201Vozugj outpatient visit 15 minutes Nettie [facility] ClinicStart: 10-19-2022 End: 22-77-6290zcjnoygkjkMshemq Marisa Other [facility] [place] Other Start: 47-33-6323Twxmrxrie encounterPamela RonmondFPG [facility] ClydeStart: 10-18-2022 End: 18-84-1032kpjrdwosxrBwuntg Iqbal Other [facility] [place] Other Start: 76-46-0355Fkpxsiyyv encounterMarcia Teodoro [facility] ClinicStart: 10-17-2022 End: 82-73-9777wrspqedfzvYltdhl Iqbal Other [facility] [place] Other Start: 06-66-5771Beunfpvnz encounterMarcia Teodoro [facility] ClinicStart: 10-05-2022 End: 15-75-2676uktqpzengzGoldkfsg Shamir Other [facility] [place] Other Start: 51-99-3167Dnfmiqchi encounterLawrence Shamir [facility] GastroenterologyStart: 10-04-2022 End: 27-54-2708sgqpnntxrzPrnqxc Iqbal Other [employer] Other Start: 16-19-6283Pulyumgpq encounterMarcia Teodoro [facility] ClinicStart: 09-07-2022 End: 07-33-8283skwenmzqxjXecqtqkq Shamir Other [place] Other Start: 24-04-0893Hqvdml outpatient visit 25 minutes Kiran ShamirFPMadiha GastroenterologyStart: 09-06-2022 End: 55-69-4847vdjtsvwccuAdcrjt Iqbal Other noFonJax [place] Other Start: 25-83-5473Ulkavxgbu encounterMarcia BraunFPG [facility] ClinicStart: 08-29-2022 End: 51-19-4849qyhedgeblmOdqnnq Iqbal Other [facility] [place] Other Start: 07-22-9082Chmael outpatient visit 15 minutes Nettie KathyWhite [facility] Medical ClinicStart: 08-25-2022 End: 22-76-9794kriaczjwdePdhpuk Bailey Other [facility] [place] Other Start: 84-40-3265Mzpaka outpatient visit 15 minutes Sandra FloresABRAZO [facility] ClydeStart: 08-14-2022 End: 39-58-8680mrsopxlrvwUylkhqwe Ball Other [facility] [place] Other Start: 64-46-2904Tmylrvnwy encounterBenjamin BallFPG [facility] ClinicStart: 08-10-2022 End: 78-59-9976fnrgajobauRfacvgid Ball Other [employer] Other Start: 05-16-7039Eaqkncwkw encounterBenjamin BallFPG [facility] ClinicStart: 08-08-2022 End: 46-11-3972xjxzbqntktRdsjtq Iqbal Other [employer]FonJax [place] Other Start: 45-44-6738Seukkrtgp encounterMarcia BraunFPG [facility] ClinicStart: 08-03-2022 End: 38-96-6608pwhtcvqghsHgdcnp Iqbal Other noFonJax [place] Other Start: 28-62-1591Bbiftx outpatient visit 15 minutes Nettie [facility] ClinicStart: 07-27-2022 End: 41-65-8740gjucpcrysxJX DOCTOR MISCFacility:X0Xyccl: 07-21-2022 End: 87-70-0335parpbrsuzsMfsopkqx Ball Other [facility] [place] Other Start: 54-81-0748Sdllrqbjy encounterBenmadonna RodriguezG [facility] ClinicStart: 07-20-2022 End: 34-08-8216txrfjrvvpmJK PHANI BALLFacility:J9Uowpy: 07-12-2022 End: 08-08-3237vktoewmksgCprjlljk Ball Other [facility] [place] Other Start: 11-22-4079Kxyrqxqiw encounterBenjamin JenniferG [facility] ClinicStart: 06-27-2022 End: 47-42-3581pqhojtifqmLpjdl Keller Other [place] Other Start: 70-50-1259Bmuiatrgi encounterAmbjefferson SanfordFPMadiha Ur[facility] Fort Yates RoadStart: 06-22-2022 End: 76-84-8228zwapdrhdbcUyclujeh Ball Other [facility] [place] Other Start: 61-00-3099Uraraxhai encounterBenjamin JenniferG [facility] ClinicStart: 06-20-2022 End: 45-88-7380Jfkopbbk ReferredSHEILA Sanford Work Phone: [facility] Main [place] Work Phone: Start: 06-20-2022 End: 32-17-5376anltetoaqaFJSY Amber Keller Work Phone: [facility] Work Phone: Start: 62-56-0521Yahwng outpatient visit 15 minutes Vanessa JuvenalFPMadiha Urgent Care ClydeStart: 06-16-2022 End: 74-30-5152maatkvsaecKT [place] Other Start: 18-99-3116Bhjvrg outpatient visit 25 minutes Phani BallFPG [facility] ClinicStart: 06-06-2022 End: 69-66-2587dnkuhkywpxDEAHSP COLUMBA .Facility:B5Gorrh: 05-29-2022 End: 78-49-0484zvchvtmpdgTD [place] Other Start: 78-87-4697Fyahtu outpatient visit 25 minutes Phani BallFPG [facility] ClinicStart: 50-07-8904Oycuyzqsc encounterBenjamin BallFPG [facility] ClinicStart: 05-12-2022 End: 25-65-3323wujxjwatdoCrugnott Ball Other [place] Other Start: 90-20-9029Fdpktlhwi encounterBenjamin BallFPG [facility] ClinicStart: 05-09-2022 End: 63-89-5644anwviievkxTpbdrtve Ball Other [employer] Other Start: 43-33-1289Jlzxft outpatient visit 15 minutes Phani BallFPG [facility] ClinicStart: 99-64-5008Hetavbbww encounterBenjamin BallFPG [facility] ClinicStart: 04-28-2022 End: 65-90-8417jrzmavfkvjVxayakoz Ball Other [employer] Other Start: 34-54-8539Nyqytxafs encounterBenjamin BallFPG [facility] ClinicStart: 04-24-2022 End: 73-40-4056jwluvcqhztAznhflqe Ball Other [place] Other Start: 05-41-7652Ultkqsybe encounterBenjamin BallFPG [facility] ClinicStart: 04-20-2022 End: 11-90-5871liewratpxqMlvmzdgn Ball Other noFonJax [place] Other Start: 26-31-3816Dohwfekhm encounterBenjamin BallFPG [facility] ClinicStart: 04-17-2022 End: 61-61-5038fekljiesbfRF ABDELRAHMAN WEINSTEIN .Facility:W3Tkosw: 04-16-2022 Encounter for other preprocedural examinationDR ABDELRAHMAN WEINSTEIN .[facility] 04-14-2022 End: 36-00-0114wmanuhrtsfHP ABDELRAHMAN WEINSTEIN .Facility:I6Chghf: 04-14-2022 End: 24-32-7033Tyydnmtnv for other preprocedural examinationDR ABDELRAHMAN WEINSTEIN . Facility:O5Kjcuw: 04-13-2022 End: 55-12-3659heseatudopZcqmiysx Ball Other [facility] [place] Other Start: 84-93-5190Gcygtbzhl encounterBenjamin BallRADHAG [facility] ClinicStart: 04-10-2022 End: 97-32-9978cejdjxcimbTD ABDELRAHMAN WEINSTEIN .Facility:F0Cjtaq: 03-25-2022 End: 27-47-3239vbmacgtjthNbtjhuup Shamir Other [facility] [place] Other Start: 04-06-9747Gydqbsnka encounterLawrence Shamir [facility]astroenterologyStart: 03-15-2022 End: 18-49-8202vjkdmfjjomXsznfspr Ball Other noFonJax [place] Other Start: 50-71-0150Srhyqzsao encounterBenjamin BallFPG [facility] ClinicStart: 03-14-2022 End: 07-33-1293jfokiwwdvdNklqynob Shamir Other [employer] Other Start: 42-13-0346Owsgfr outpatient visit 15 minutes Kiran Lopez GastroenterologyStart: 03-10-2022 End: 69-65-2472kiyurnnejzEaqlwlkc Ball Other [employer] Other Start: 11-44-0865Btvprwptn encounterBesarah RodriguezMadiha [facility] ClinicStart: 56-19-3612Ciizygmsc for other preprocedural examinationMarcilesa Iqbal Other [employer] Other Start: 85-06-0505Vrw-procedure evaluation checkMarricky Iqbal Other [employer] Other Start: 02-23-2022 End: 07-15-3735thpifpbuurFX KIEL DÍAZ .Facility:R3Bzfxp: 01-20-2022 End: 38-57-0986Blirifhgj to same day surgery centerDO Phani Pruitt Work Phone: [facility]-Digestive HealthStart: 01-20-2022 End: 24-53-6731bbidyywhlsRT Phani Pruitt Work Phone: [facility] Work Phone: Start: 01-06-2022 End: 74-93-4860ckoftkmpwuCU WAI SEVERINOFacility:Y8Cujmv: 01-02-2022 End: 24-45-0031zgwytzmiiqHqlspfkp McCormack Other [place] Other Start: 93-47-7786Fxhbivtex encounterLark ROME GastroenterologyStart: 12-09-2021 End: 47-24-9236tmyoalpcruBxbcggki McCormack Other [employer] Other Start: 94-59-6043Oszgwc outpatient visit 25 minutes Kiran AriG GastroenterologyStart: 11-28-2021 End: 57-31-6038ttwegrkkddIB PHANI PRUITTFacility:T1Niirw: 11-10-2021 End: 03-74-1161zfzhjfwxyzCjacgqbq Shamir Other [place] Other Start: 62-42-9095Milcgprdg encounterLawrmeron ROME GastroenterologyStart: 10-20-2021 End: 13-76-4147mmocygubjpWD PHANI BALLFacility:D0Puher: 10-16-2021 End: 08-60-9294xtdrregcbqCS PHANI Reinosocility:Y6Kmdqo: 10-05-2021 End: 96-56-0192hppxblcszeEIVOYK RODRIGUEZ .Facility:W1Skeyh: 09-30-2021 ambulatoryDARIN OANH .Facility:S7Tlobj: 09-29-2021 End: 94-04-3838mnnbehejcpHslzq Hykes Other [place] Other Start: 68-58-2904Onoltlsby encounterDavid HykesRADHAG GastroenterologyStart: 21-74-1055Ugbaa health examinationMarricky Iqbal Other [place] Other Start: 42-70-8248Mrmetlsza for general adult medical examination without abnormal findingsNettie Iqbal Other [place] Other Start: 09-05-2021 End: 98-77-6613hsqhvxnhwqLyftbl Elskens Other [employer] Other start: 56-01-5951Epdrfg outpatient visit 15 minutes Ambrose TorresFPG [facility] NeurosurgeryStart: 08-31-2021 End: 19-31-3856munuctonarHD PHANI Reinosocility:C4Arwaq: 07-08-2021 End: 51-67-3252vrrjmecqqqXdrib Hykes Other [place] Other Start: 07-76-3256Cucrzkefh encounterDavid HykesFPG GastroenterologyStart: 06-13-2021 End: 94-97-7493jogvckfhsiKvilo Hykes Other [employer] Other Start: 27-16-9873Cleasd outpatient visit 25 minutes Janna HykesFPG GastroenterologyStart: 04-13-2021 End: 20-56-8871kzimbebgknLdjalk Marisa Other [employer] Other Start: 30-12-8843Zhcnrn outpatient visit 15 minutes Shira CunninghamFPG [facility] Care ClydeStart: 02-28-2021 End: 79-83-7049cjizpudwyrMmcmp Hykes Other [employer] Other Start: 37-98-1387Stslmvare encounterDavid HykesFPG GastroenterologyStart: 01-31-2021 End: 56-20-7737dphofaieipBsuis Hykes Other [employer] Other Start: 85-03-9105Btdkatmqg encounterDavid HykesFPG GastroenterologyStart: 01-20-2021 End: 07-42-0483uizzduhhbrFtvfy Hykes Other [employer] Other Start: 63-03-9986Ranqmp outpatient visit 25 minutes Janna HykesFPG GastroenterologyStart: 97-30-1915Imfoqxbge encounterDavid Hykes FPG GastroenterologyStart: 95-36-6197Znzycp outpatient visit 25 minutesDavid HykesFPG Gastroenterology Procedures DateProcedureProcedure DetailPerforming ClinicianStart: 29-74-1905Qqxsuhti resonance cholangiopancreatographyNettie Iqbal MD Work Phone: Start: 82-96-3092Wxpmvwqhlvt rig transoral hypopharynx crv Jeri Dunlap MD Work Phone: start: 50-71-5696Wszso cultureNettie Iqbal MD Work Phone: Start: 49-70-9358XVM of abdomen with contrastMD Nettie Iqbal Work Phone: Start: 05-38-3629Dzqpb cultureMD Nettie Iqbal Work Phone: Start: 38-38-8342Cdmrh Interpretation of outside study Non-Uh Radiology Contrast ProviderStart: 64-12-7743D-ray of lumbar spine, four viewsMD Nettie Iqbal Work Phone: Start: 20-45-3966Dthsi cultureMD Nettie Iqbal Work Phone: Start: 01-02-3339Kjzra culture Nettieilana Iqbal Work Phone: Start: 73-79-2498Izyzvjmg resonance cholangiopancreatographyMD Nettie Iqbal Work Phone: Start: 01-20-2022 End: 61-33-4307NipxznupyizHG Phain Pruitt Work Phone: Start: 45-78-5012Egwsskotr for malignant neoplasm of colonAnnycia Kathy Other Start: 77-84-1074Aaaaapydt for osteoporosisMarcia Kathy Other Start: 56-78-4994Sharlxvvv mammographyMarcia Kathy Other Depression screeningAnnycia Kathy Other Screening for malignant neoplasm of breastAnnycia Kathy Other Plan of Treatment DateCare ActivityDetailAuthorStart: 19-61-2413Igkghdbiq for malignant neoplasm of [facility]woodsStart: 14-06-1309JHM Vaccine (1 - 1- dose 75+ series)RSV Vaccine (1 - 1-dose 75+ series)[facility]: 04-81-7839Vcuuzbku ScreeningDiabetes ScreeningUK [facility]: 09-18-2024 Pneumococcal Vaccine: 50+ (3 of 3 - PCV20 or PCV21)Pneumococcal Vaccine: 50+ (3 of 3 - PCV20 or PCV21)[facility]: 51-76-9936Dwkycly referralMagruder Hospital Work Phone: Start: 03-21-2024 End: 64-79-2690Ffyeatx [facility] Comment on above:EUS (LINEAR) W/FNAStart: 71-55-8869Dfkbgwb Directive Discussion Advance Directive DiscussionUK Healthcaretart: 02-14-2024 End: 69-25-2958Pfxazft encounter qouuldilp76/05/2024 2:30 PM EST Appointment [facility] Endoscopy - ENDO [address] [place] [address] Everett Dunlap MD [address] [place], [place] [address] [address] EUS (LINEAR) W/[facility] Endoscopy - ENDO Comment on above:EUS (LINEAR) W/FNAStart: 02-14-2024 End: 44-82-7416Ovykhwb encounter mneafcgbv05/05/2024 12:30 PM EST Appointment [facility] Endoscopy - ENDO [address] [place] [address] Everett Dunlap MD [address] [place], [place] [address] [address] EUS (LINEAR) W/FNARut[facility] - [facility]O Comment on above:EUS (LINEAR) W/FNAStart: 60-94-3037Tduek cultureGreene Memorial Hospitaltart: 36-17-4146Ffxsytyt identified in Urine by Culture Urine CultureGreene Memorial Hospitaltart: 12-19-2023 End: 58-12-9872Wzulspj encounter mfmohbjnb39/09/2024 11:40 AM EDT Office Visit Gastroenterology [address] [place] [address] [place] [address] [place] [address] discuss EUSGastroenterologyComment on above:discuss EUSStart: 32-97-9528Yknemqe [facility] Work Phone: Start: 67-65-3007Lhyng-19 Vaccine () Covid-19 Vaccine ()[facility]: 94-52-4888Ebhzc-19 Vaccine ()Covid-19 Vaccine ()[facility]: 67-66-8552Iiihjherp vaccinationInfluenza Vaccine (#1)[facility]: 76-86-5169Bqjqzti [facility] Work Phone: Start: 27-67-7377CsaksypBucyrus Community Hospital Work Phone: Start: 80-16-1343Ksimjwwr identified in Urine by CultureGreene Memorial Hospitaltart: 16-27-4387Eboxqsw Directive DiscussionAdvance Directive Discussion[facility]: 04-26-1252Aytjzn Wellness Visit (Medicare Advantage)Annual Wellness Visit (Medicare Advantage)[facility]: 87-74-8136Olqfdptc identified in Urine by Culture [facility] Hospitaltart: 26-66-8744ZTMVJ-19 Vaccine ( season)COVID-19 Vaccine ( season)[facility] Start: 61-15-4299NadjusywwGreene Memorial Hospitaltart: 58-26-7000VZZGV-19 Vaccine (4 - Pfizer series)COVID-19 Vaccine (4 - Pfizer series)[facility] HospitalStart: 49-70-8069Kympogdigspp Vaccine: 65+ (3 of 3 - PPSV23 or PCV20)Pneumococcal Vaccine: 65+ (3 of 3 - PPSV23 or PCV20)[facility]: 13-01-5180Jroptuotqhhv Vaccine: 65+ Years (3 - PPSV23 or PCV20) Pneumococcal Vaccine: 65+ Years (3 - PPSV23 or PCV20)[facility]: 36-48-5610Ajelabywlnrw 65+ years Vaccine (2 of 2 - PCV) Pneumococcal 65+ years Vaccine (2 of 2 - PCV)[facility]: 48-08-5975Wozpgmepqkgm Vaccine: 65+ (1 of 1 - PCV)Pneumococcal Vaccine: 65+ (1 of 1 - PCV)[facility]: 52-05-4459Txrmlfowaliq Vaccine: 65+ Years (2 - PCV)Pneumococcal Vaccine: 65+ Years (2 - PCV)[facility] Start: 25-91-4066Lwgqkcmxj for osteoporosisBone Density ScreeningMiddletown Hospitalrt: 33-57-4917Xcbmajsj vaccine (2 of 3)Shingles vaccine (2 of 3)[facility]: 82-67-2578Snxygrdz Vaccine (2 of 3)Shingrix Vaccine (2 of 3)[facility]: 58-07-0647Uifyxq Vaccines (2 of 3)Zoster Vaccines (2 of 3)[facility]: 97-18-0539YJhX/Tdap/Td Vaccines (1 - Tdap)DTaP/Tdap/Td Vaccines (1 - Tdap)[facility] Start: 22-79-8570Phfjr microalbumin profileDTaP,Tdap,Td Vaccine (1 - Tdap) [facility]: 18-48-0586Ptdlhdilp B Vaccines (1 of 3 - Risk 3-dose series)Hepatitis B Vaccines (1 of 3 - Risk 3-dose series)[facility]: 92-37-3614Outyuiutouj Syncytial Virus (RSV) or age 60 yrs+ (1 - 1-dose 60+ series)Respiratory Syncytial Virus (RSV) or age 60 yrs+ (1 - 1-dose 60+ series)[facility]: 83-76-6895QFU Vaccine (1 - Risk 60-74 years 1-dose series)RSV Vaccine (1 - Risk 60-74 years 1- dose series)[facility]rt: 56-91-2731Nymqneewc for osteoporosisDEXA (modify frequency per FRAX score)[facility]: 06-03-2005 Screening for malignant neoplasm of breastBreast cancer screenBON [facility]: 42-65-1479Wcuxwcvq Vaccine (1 of 2)Shingrix Vaccine (1 of 2) [facility]: 89-59-6952Wcmfx panelLipid ScreeningCleveland Clinic [facility]ina [facility] Start: 52-39-4841Iumadsrwi for malignant neoplasm of colonBON [facility]: 54-23-5834Evlos panelLipidsBON [facility]: 62-28-6259Comwctikc for malignant neoplasm of breastUnPeoples Hospital: 32-18-6445GOxN/Tdap/Td Vaccines (1 - Tdap)DTaP/Tdap/Td Vaccines (1 - Tdap)[facility]: 53-86-5698BTvD/Tdap/Td vaccine (1 - Tdap)DTaP/Tdap/Td vaccine (1 - Tdap)[facility]: 48-02-8142Pawycdqek A Vaccines (1 of 2 - Risk 2-dose series)Hepatitis A Vaccines (1 of 2 - Risk 2-dose series)[facility]: 06[birth year]-1974 Urine microalbumin profileDTaP,Tdap,Td Vaccine (1 - Tdap)[facility]: 17-34-9598Hsdpvuj ScreeningAnxiety Screening[facility]: 06-03-1973 Depression ScreeningDepression Screening[facility]: 06-03-1973 Diabetes mellitus screeningDiabetes ScreeningMarymount Hospital Start: 72-15-3624Pxyddugfz C screeningUnPeoples Hospital: 15-01-5990Oxhmovyfnp ScreenDepression ScreenBON [facility]: 36-57-1749Gxgdk panelLipid PanelSelect Medical [facility]ty [facility]: 03-25-1956Medicare Annual Wellness VisitMedicare Annual Wellness Visit (AWV) [facility]: 20-14-0330Xypieyprd for malignant neoplasm of colonSelect [facility]ty [facility]: 90-02-4968Wbcffcwbu for osteoporosisBone Density ScanSelect Medical Specialty Hospital [facility]: 1955 Yearly Adult PhysicalYearly Adult PhysicalUnLakeHealth Beachwood [facility] Center Atopobium vaginae DNA [Presence] in Vaginal fluid by JOSH with probe detection [facility] HospitalBacteria identified in Urine by Culture [facility] HospitalBacterial vaginosis associated bacterium 2 DNA [Presence] in Vaginal fluid by JOSH with probe detectionMiami Valley HospitalCYTOLOGY NON-GYNCleveland [facility] Work Phone: comment on above:Release Upon Ordering for 1 Occurrences starting 03/21/2024 End: 74-88-3431NKR - THERAPEUTIC, EUS, OR TUBE INTERVENTIONSEGD - THERAPEUTIC, EUS, OR TUBE INTERVENTIONS Endoscopy Routine Pancreatic cyst 1 Occurrences starting 12/19/2023 until 12/18/2024[facility] Work Phone: comment on above:1 Occurrences starting 12/19/2023 until 12/18/2024Megasphaera sp type 1 DNA [Presence] in Vaginal fluid by JOSH with probe detectionMiami Valley HospitalPatient EducationColitis Hemorrhoids (DC) [facility]ad[facility]ist health tehachapiineMagruder Hospital Work Phone: [facility] referralSouthwest [facility] Work Phone: End: 15-75-1458Drpo vertebroplasty uni/bi injx cervicothoracicBON [facility] Work Phone: comment on above:1 Occurrences starting 06/15/2023 until 06/15/2023Study Interpretation of outside studyMR transfer of outside films Imaging Routine 04/19/2023 11:05 AM [facility] Service Area Work Phone: us Lower extremity vein - bilateralMi[facility] Valley Hospital End: 22-55-0227Bckvnsenlrghva each addl cervicothor/lumbosacralBON [facility]BA[facility] HOSPITALComment on above:1 Occurrences starting 06/15/2023 until 06/15/2023 [facility] Immunizations Immunization DateImmunizationNotesCare MuxpqshxCrrxlkir58-60-1727tsvxgpjyx, high dose seasonal, preservative-freeNettie Iqbal MD Work Phone: [facility]10-15-2024influenza, high dose seasonal, preservative-freeMD Nettie Iqbal Work Phone: [facility]08-15-2023Flu vaccine, quadrivalent, high-dose, preservative free, age 65y+ (FLUZONE)Libby Gonsalesw PA-C Work Phone: [facility] Work Phone: [phone]zyhlu virus vaccine, unspecified formulationEverett Dunlap MD Work Phone: cHighland District HospitalAcxccv70-96-5403amgwsdgmw, high dose seasonal, preservative-freeGitae Muñoz PA-C Work Phone: [facility] Work Phone: [phone]ssnxw virus vaccine, split virus (incl. purified surface antigen)Nettie Iqbal Other [employer] [place] Other [phone] virus vaccine, unspecified formulationMi[facility] Hospital09-19-2022Influenza, Seasonal, Quadrivalent, AdjuvantedHenrilie Muñoz PA-C Work Phone: [facility] Work Phone: [phone]-27 Pricila Blair (Pfizer)DO Phani Pruitt Work Phone: [facility]10-06-2021influenza virus vaccine, split virus (incl. purified surface antigen)Nettie Iqbal Other [place] Other [id number] virus vaccine, unspecified formulationMi[facility] Valley Hospital10-06-2021Seasonal trivalent influenza vaccine, adjuvanted, preservative freeHenrilie Muñoz PA-C Work Phone: [facility] Work Phone: [phone]-20 mRNA, Comirnaty (Pfizer)DO Phani Pruitt Work Phone: [facility]04-30-2021COVID-19 mRNA, Comirnaty (Pfizer)DO Phani Pruitt Work Phone: [facility]10-16-2020influenza virus vaccine, split virus (incl. purified surface antigen)Nettie Iqbal Other [employer] [place] Other [id number] virus vaccine, unspecified formulationMi[facility] Hospital07-10-2020pneumococcal conjugate vaccine, 13 valentMarcia Kathy Other [facility]11-20-2019Influenza, injectable, Madin Outing Canine Kidney, preservative free, quadrivalentLeslie Muñoz PA-C Work Phone: [facility] Work Phone: [phone]bcdxth virus vaccine, split virus (incl. purified surface antigen)Nettie Iqbal Other [employer] [place] Other [phone] virus vaccine, unspecified formulationMi[facility] Hospital10-29-2018Influenza, injectable, Madin Kaylah Canine Kidney, quadrivalent with preservativeLeslie Muñoz PA-C Work Phone: [facility] Work Phone: [phone], seasonal, injectableLeslie Muñoz PA-C Work Phone: [facility] Work Phone: [phone]eriq and diphtheria toxoids, adsorbed, preservative free, for adult use (5 Lf of tetanus toxoid and 2 Lf of diphtheria toxoid)Nettie Iqbal Other [facility]08-09-2017zoster vaccine, liveLeslie Muñoz PA-C Work Phone: [facility] Work Phone: [phone]zv vaccine, liveNettie Iqbal Other [facility]10-01-2014influenza, injectable, madin kaylah canine kidney, preservative freeLeslie Muñoz PA-C Work Phone: [facility] Work Phone: [phone] polysaccharide vaccine, 23 valentAnnycia Iqbal Other [facility]08-15-2012 pneumococcal polysaccharide vaccine, 23 valentHenrijackelyne Muñoz PA-C Work Phone: [facility] Work Phone: [phone] polysaccharide vaccine, 23 valentDakojod Hykes Other [place] [facility] Other [id number] polysaccharide vaccine, 23 valentHenrilie Muñoz PA-C Work Phone: [facility] Work Phone: Payers DatePayer CategoryPayerPolicy [id number] [id number] Medicare (Managed Care)[employer] MEDIC[employer] Member Subscriber Plan / Payer (Effective 2023-Present) Name: Merlin Gutierres Relation to Subscriber: Self Name: Afia Gutierres Payer ID: [id number] (NAIC) Type: PPO Address: [address] [id number] [facility] FUNDED SELF FUNDED 000 2022-Present [address] [place], [place] [id number] 2023Medicare [id number] [id number] 2.16.840.5.57901[id number] 2.16.840.1.287110.3.579.2.593 [id number] 2.16.840.1.139515.3.57[id number] 2.16.840.1.529286.3.57[id number] 2.16.840.1.901019.3.57[id number] 2.16.840.1.702032.3.579.[id number] 2.16.840.1.437356.3.57[id number] 2.16.840.1.190518.3.57[id number] 2.16.840.1.342356.3.57[id number] 2.16.840.1.076799.3.579.2.0[id number] 2.16.840.1.756736.3.57[id number] 2.16.840.1.973928.3.57[id number] 2.16840.1.021154.3.579.[id number] 2.16840.1.050376.3.57[id number] 2.16.840.1.319179.3.57[id number] 2.16840.1.405918.3.579.2.0[id number] 2.16840.1.664390.3.57[id number] 2.840.1.061110.3.579.2.12977-65-6444Ardrbnd771852 2.0.1.279188.3.579.2.279939-31-3883Jhpqptt969274 2.840.1.817616.3.579.2.791377-33-3510Pwqlbcw24226 2.0.1.559530.3.57[id number] 2.0.1.695998.3.57[id number] 2.0.1.983256.3.57[id number] 2.840.1.138229.3.57[id number] 2.840.1.962832.3.57[id number] 2.840.1.742816.3.57[id number] 2.840.1.309237.3.5[id number] 2.16.840.1.041528.19 Self-paySelf [id number] Social History DateTypeDetailFacilityUnknown if ever smokedNort Letyano Other Start: 06-15-2023 End: 72-11-2932Knm Assigned At BirthGuernsey Memorial Hospitaltart: 01-20-2022 End: 54-11-2293Vgvipwh smoking status NHISEx-smoker (finding)[facility] Hospitaltart: 79-07-0099Klc Assigned At BirthFeGrant HospitalTobacco smoking status NHISTobacco smoking consumption unknown [facility] Work Phone: start: 25-45-4605Rflekw identityIdentifies as female gender (finding)[facility] Work Phone: Start: 00-38-3412Dqgcsb orientationHeterosexual (finding)[facility] Work Phone: Tobacco smoking statusNo Smoking Status Entered [facility] start: 71-56-6822Fktxxbu of tobacco useCurrent smoker [facility] CAMPUSQM PowerBROWN MEMORIAL HOSPITALHistory of tobacco useCigarette SmokerBON ABRAZO ARROWHEAD CAMPUSLahore [employer] [facility]AMILTONStart: 06-15-2023 End: 85-64-2982Lsiregm of Social functionBON ABRAZO ARROWHEAD CAMPUSKyriba Corporation [facility] DAYTONSalonBookr [facility]AMILTONStart: 63-52-6362Nue Assigned At BirthNot on fileGUARDIAN HOSPITALKyriba Corporation [facility] YOUNGSTOWNStart: 76-49-2980Qxbxgsn smoking status NHISSmokes tobacco dailyUK Healthcaretart: 52-24-7162Uhjiopl use and exposureSmokeless tobacco non-userC[facility] Hospital Start: 62-23-3121Zdqdamano beverage intakeEx-drinker (finding)[facility] National Score (1-100), lower number is lower iaqj25ChufhihfmUK Healthcaretart: 01-16-2024 End: 69-34-7682Uzujbiw smoking status NHISCurrent some day smokerGreene Memorial Hospitaltart: 03-28-2024 End: 59-71-6004UloCuwenv (finding)[facility] Medical Equipment Procedure CodeEquipment CodeEquipment Original TextEquipment IdentifierDates KyphoplastyOrthopaedic cement, non-medicated [id number] FDAStart: 45-60-0000Rxubxp Bne 20 Gm Hi Visc Radiopaque Vertaplex Hv - [id number]: 19-46-2561Dhudzyi on above:Description: Thoracic 11 & thoracic 12 Goals DatePatient GoalDesired Activity/State Clinical Notes 12-07-2020 to 09-23-2024 Note Date & [id number] Evaluation note* Diagnosis Onset Date Resolution Status Admit Date Anxiety acuteJuly 2024 1:03pmChronic thoracic back painacuteJuly 2024 1:03pm Pancreatic lesionacuteJuly 2024 1:03pmRight femoral fractureacuteJuly 2024 1:03pmVertebral compression fractureacuteJuly 2024 1:03pm Chronic back painchronicJuly 2024 1:03pmCOPD (chronic obstructive pulmonary disease)chronicJuly 2024 1:03pmFibromyalgiachronicJuly 2024 1:03pmDyspepsiaacuteJuly 2024 1:09pmGERD (gastroesophageal reflux disease)acuteJuly 2024 1:09pmOpioid-induced constipationacuteJuly 2024 1:09pmPancreatic lesionacuteJuly 2024 1:09pm [facility] Work Phone: 1(465) 189-697007-15-2025 Evaluation note* Diagnosis Onset Date Resolution Status Admit Date Anxiety acuteJuly 2024 1:03pmChronic thoracic back painacuteJuly 2024 1:03pm Pancreatic lesionacuteJuly 2024 1:03pmRight femoral fractureacuteJuly 2024 1:03pmVertebral compression fractureacuteJuly 2024 1:03pm Chronic back painchronicJuly 2024 1:03pmCOPD (chronic obstructive pulmonary disease)chronicJuly 2024 1:03pmFibromyalgiachronicJuly 2024 1:03pmDyspepsiaacuteJuly 2024 1:09pmGERD (gastroesophageal reflux disease)acuteJuly 2024 1:09pmOpioid-induced constipationacuteJuly 2024 1:09pmPancreatic lesionacuteJuly 2024 1:09pmAnxietyacuteOctober 2024 1:02pmBilateral lower extremity edemaacuteOctober 2024 1:02pmChronic thoracic back painacuteOctober 2024 1:02pmPancreatic lesionacuteOctober 2024 1:02pmRight femoral fractureacuteOctober 2024 1:02pmVertebral compression fractureacuteOctober 2024 1:02pmChronic back painchronic October 2024 1:02pmCOPD (chronic obstructive pulmonary disease)chronic October 2024 1:02pmFibromyalgiachronicOctober 2024 1:02pm [facility] Work Phone: 1(346) 275-665305-13-2025 Telephone encounter Note* Telephone Encounter - Angela Monson RN - 07/22/2024 9:21 AM EDT Recommendations faxed to Dr. Erwin's office. Angela Monson RN [facility] Work Phone: 1(244) 511-189005-13-2025 Miscellaneous Notes* Telephone Encounter - Angela Monson [...] dysplasia. Recommend: MRCP in 6 months at [facility] facility. Send my opinion to Dr. Erwin. Everett Dunlap MD * Telephone Encounter - Angela Monson RN - 07/17/2024 2:[address] Dunlap, MRI images available in [facility] to review. Angela Monson RN * Telephone Encounter - Angela Monson RN - 07/16/2024 9:10 AM EDT [facility], [facility] will push images to [facility]. Will monitor. Angela Monson RN * Telephone Encounter - Everett Dunlap MD - 07/15/2024 5:23 PM EDT Angela: I wanted her MRCP to be done at [facility] facility for my review. I need the images of MRCP (done at [facility]) uploaded to [facility] for my review prior to rendering [...] Erwin. She used Dr. Was transferred to [facility]. 2. Weight loss - ICD9: 783.21, [...] She is scheduled 02/14/2024 at 12:30 PM, [facility]. - EGD - THERAPEUTIC, EUS, OR [...] and my recommendations to Dr. Erwin at [facility]. Pt had repeat MRCP 07/05/[address] [...] could also be considered. documented in this encounterCleveland Clinic [facility] Hospital05-12-2025 Telephone encounter Note * Telephone Encounter [...] dysplasia. Recommend: MRCP in 6 months at [facility] facility. Send my opinion to Dr. Erwin. Everett Dunlap MD [facility]05-08-2025 Telephone encounter Note* Telephone Encounter - Angela Monson RN - 07/17/2024 2:[address] Dunlap, MRI images available in [facility] to review. Angela Monson RN [facility]05-07-2025 Telephone encounter Note* Telephone Encounter - Angela Monson RN - 07/16/2024 9:10 AM EDT Fannie called [facility]'s, they will push images to [facility]. Will monitor. Angela Monson RN [facility]05-06-2025 Telephone encounter Note* Telephone Encounter - Everett Dunlap MD - 07/15/2024 5:23 PM EDT Angela: I wanted her MRCP to be done at [facility] facility for my review. I need the images of MRCP (done at [facility]) uploaded to [facility] for my review prior to rendering anyopinion. Everett Dunlap MD [facility]05-06-2025 Telephone encounter Note* Telephone Encounter - [...] Erwin. She used Dr. Was transferred to [facility]. 2. Weight loss - ICD9: 783.21, [...] She is scheduled 02/14/2024 at 12:30 PM, [facility]. - EGD - THERAPEUTIC, EUS, OR [...] and my recommendations to Dr. Erwin at [facility]. Pt had repeat MRCP 07/05/[address] [...] or small pseudocysts could also be considered. [facility]04-14-2025 Evaluation note* Diagnosis Onset Date Resolution Status Admit Date Anxiety acuteApril 2024 1:01pmChronic thoracic back painacuteApril 2024 1:01pmPancreatic lesionacuteApril 2024 1:01pmRight femoral fractureacute Alondra 2024 1:01pmVertebral compression fractureacuteApril 2024 1:01pmChronic back painchronicApril 2024 1:01pmCOPD (chronic obstructive pulmonary disease)chronicApril 2024 1:01pmFibromyalgiachronicApril 2024 1:01pm [facility] Work Phone: 1(449) 364-848101-20-2025 Telephone encounter Note* Telephone Encounter - Angela Monson RN - 03/31/2024 1:01 PM EST Pt notified of results and recommendations and verbalized understanding. She will follow up with Dr. Erwin. Reports and recommendations faxed to Dr. Erwin's office. Angela Monson RN [facility] Work Phone: 1(517) 682-712701-20-2025 Miscellaneous Notes* Telephone Encounter - Angela Monson [...] and my recommendations to Dr. Erwin at [facility]. Everett Dunlap MD documented in this encounterCleveland Clinic Medina Hospital01-20-2025 Telephone encounter Note * Telephone Encounter [...] and my recommendations to Dr. Erwin at [facility]. Everett Dunlap MD [facility]01-17-2025 Evaluation note* Diagnosis Onset Date Resolution Status Admit Date Anxiety acuteJanuary 2024 12:59pmPancreatic lesionacuteJanuary 2024 12:59pm Right femoral fractureacuteJanuary 2024 12:59pmSinusitisacuteJanuary 2024 12:59pmVertebral compression fractureacuteJanuary 2024 12:59pmCOPD (chronic obstructive pulmonary disease)chronicJanuary 2024 12:59pm FibromyalgiachronicJanuary 2024 12:59pm [facility] Work Phone: 1(381) 243-948901-10-2025 Nurse Note* Sofy Arriaga RN - 03/21/2024 [...] PROVIDED TO PATIENT: None REFERRAL (RECOMMENDATION): None [facility]01-10-2025 Nurse Note* Sofy Arriaga RN - [...] None REFERRAL (RECOMMENDATION): None documented in this encounterCleveland Clinic Medina Hospital01-10-2025 History and physical note * Everett [...] Comments Other Reaction(s): diarrhea, itching and rash Szazcnm-Wiq-Qxs Red* Unknown Other Reaction(s): Unknown Sulfamethoxazole-Tr* Unknown [...] DATE: March 21, 2024 TIME: 9:22 AM [facility]01-10-2025 History and physical note* Everett Dunlap [...] Comments Other Reaction(s): diarrhea, itching and rash Pbzlmuw-Drt-Otl Red* Unknown Other Reaction(s): Unknown Sulfamethoxazole-Tr* Unknown [...] 2024 TIME: 9:22 AM documented in this encounterCleveland Clinic Medina Hospital01-09-2025 Telephone encounter Note * Telephone Encounter [...] . If you need to reschedule call [phone]. [facility]01-09-2025 Miscellaneous Notes* Telephone Encounter - Carmen [...] . If you need to reschedule call [phone]. documented in this encounterCleveland Clinic Medina Hospital12-10-2024 Telephone encounter Note * Telephone Encounter - Elham Reid II - 02/19/2024 1:09 PM EST Spoke with patient, rescheduled EUS to 03/21/2024 at [facility]. Elham Mendieta Adm Asst II [facility]12-10-2024 Miscellaneous Notes* Telephone Encounter - Anam Adm GuzmanElham II - 02/19/2024 1:09 PM EST Spoke with patient, rescheduled EUS to 03/21/2024 at [facility]. 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 Please call pt back to reschedule. 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 Please call pt back to reschedule. [facility]12-04-2024 Telephone encounter Note* Telephone Encounter - [...] appointment or your prep instructions please call [phone]. If you need to reschedule call [phone]. [facility]12-04-2024 Miscellaneous Notes* Telephone Encounter - Carmen [...] appointment or your prep instructions please call [phone]. If you need to reschedule call [phone]. 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 Previous [...] Comments Other Reaction(s): diarrhea, itching and rash Zkuenqz-Kzg-Tjc Red* Unknown Other Reaction(s): Unknown Sulfamethoxazole-Tr* Unknown [...] She is scheduled 02/14/2024 at 12:30 PM, [facility]. - EGD - THERAPEUTIC, EUS, OR TUBE INTERVENTIONS 4. Family history of colon cancer in father - ICD9: V16.0, ICD10: Z80.0 5. Smoker - ICD9: 305.1, ICD10: F17.200 She smokes half pack per day for many years. 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 Previous [...] Comments Other Reaction(s): diarrhea, itching and rash Jaunbsk-Wav-Map Red* Unknown Other Reaction(s): Unknown Sulfamethoxazole-Tr* Unknown [...] Erwin. [facility] 2. Weight loss - ICD9: 783.21, [...] She is scheduled 02/14/2024 at 12:30 PM, [facility]. - EGD - THERAPEUTIC, EUS, OR TUBE INTERVENTIONS 4. Family history of colon cancer in father - ICD9: V16.0, ICD10: Z80.0 5. Smoker - ICD9: 305.1, ICD10: F17.200 She smokes half pack per day for many years. Everett Dunlap MD, FACP documented in this encounterCleveland Clinic [facility] Hospital09-24-2024 Telephone encounter Note * Telephone Encounter - Beth Summers - 12/04/2023 10:02 AM EDT Spoke with patient. Unable to get a ride on 12/04, scheduled 12/18 Thank you Beth Summers PSS [facility]09-24-2024 Miscellaneous Notes* Telephone Encounter - Beth [...] Awaiting MRCP images to be uploaded to [facility]. Schedule follow-up visit in my pancreas clinic [...] are uncomplicated colonic diverticula. documented in this encounterCleveland Clinic Medina Hospital09-23-2024 Telephone encounter Note * Telephone Encounter - Angela Monson RN - 12/03/2023 3:56 PM EDT MRI images available for review. Schedulers, please call pt to schedule OV in pancreas clinic as indicated below. Dr. Dunlap has availability 12/05/2023. Thank you, Angela Monson RN [facility]09-22-2024 Telephone encounter Note* Telephone Encounter - Everett Dunlap MD - 12/02/2023 8:47 PM EDT Awaiting MRCP images to be uploaded to [facility]. Schedule follow-up visit in my pancreas clinic in the next 1-2 months. Likely the patient does not need EUS giving stable small pancreatic cyst measuring 6 mm. Everett Dunlap MD [facility]09-20-2024 Telephone encounter Note* Telephone Encounter - Angela Monson RN - 11/30/2023 12:39 PM EDT Pt referred from Dr. Erwin for EUS for pancreas cyst. Dr. Erwin's OV note sent for scanning. Dr. Dunalp, please review and advise. Pt does not [...] an IPMN. There are uncomplicated colonic diverticula. [facility]04-05-2024 History of Present illness Narrative* Carolina [...] an active DRN-CC order on file at [facility]. Dr. Carbajal notified. 1222 Dr[address] Gonsalves notified pt ready to be seen. 1257 Dr. Villeda [facility], speaking to patient. Dr. Villeda aware of pt's wishes to remain DNR-CC. Also aware of bradycardia. 1300 Dr Gonsalves speaking to via phone. 1309 Dr. Villeda at [facility] for nerve block procedure. Time out performed. 1316 Nerve block performed 1324 Dr. Carbajal [facility] to discuss procedure. Risks/benefits discussed, all questions answered. 1330 Pt to Special [facility] via cart for procedure. documented in this encounterBON [facility] Discharge instructions* Discharge Instructions* April [...] during normal business hours (Sunday-Sunday 8am-6pm) at [phone] and have them paged. You may also contact Dr. Carbajal office with any questions or concerns at [phone]. * Attachments The following attachments cannot be sent through Care Everywhere. * Vertebroplasty: Post-op (Stateless) * Sedation (Stateless) documented in this encounterBON [facility]01-31-2024 Evaluation note* Encounter Date Diagnosis Assessment Notes Treatment Notes Treatment Clinical Notes Mar, Compression fracture of T11 vertebra with delayed healing, subsequent encounter (ICD-10 - S22.080G) I reviewed the MRI of the lumbar spine showing compression fractures at T11 and T12 with bone marrow edema, more so in the T11. It also shows progression of the fractures and more kyphosis due to thecompression fractures. The patient is very symptomatic at [...] referral for surgical evaluation for kyphoplasty at [facility]. Dr Iqbal is out of the office. [facility] Other 12-28-2023 Evaluation note* Encounter Date Diagnosis Assessment Notes Treatment Notes Treatment Clinical Notes Feb, Age-related osteopor osis with current pathological fracture with delayed healing, subsequent encounter (ICD-10 - M80.00XG) Medication profile and possible SE reviewed with patient today. Take as prescribed. Take 30 minutesprior to food/med/drink in the AM, take with full glass of water, and sit upright for 30 minutes after taking. Did recommend that she start taking 600 IU of Vitamin D daily, Calcium 1200 mg daily, and start weight bearing exercises as tolerated [facility] Other 12-19-2023 Evaluation note* Encounter Date Diagnosis Assessment Notes Treatment Notes Treatment Clinical Notes Feb, Age-related osteopor osis with current pathological fracture, initial encounter (ICD-10 - M80.00XA) Feb,ompression fracture of L2 vertebra, initial encounter (ICD-10 - S32.020A)I reviewed the report of the CT from 01/13/2023 and which shows there are old L2 and L5 compression fracture. There are old T11 and T12 compression fracture. Patient seems to be having pain consistentwith the T11 that goes around to the [...] it made her feel. Will refer to Uri and on the bone for further treatment of osteoporosis. Will order x-ray today and MRI [facility]umbar [facility]. Discussion of new versus old in which the patient was wanting to have a kyphoplasty consult today. Again I feel these are old compression fractures and not new will refer to Dr. Lobo for pain management and follow-up in 4 weeks Feb,ompression fracture of L5 vertebra, initial encounter (ICD-10 - S32.050A) Feb,ompression fracture of T11 vertebra, initial encounter (ICD-10 - S22.080A) Feb,ompression fracture of T12 vertebra, initial encounter (ICD-10 - S22.080A) [facility] Other 11-20-2023 Evaluation note* Encounter Date Diagnosis Assessment Notes Treatment Notes Treatment Clinical Notes Jan, Pancreatic cyst (ICD-10 - K86.2) [facility] Other 11-17-2023 Evaluation note* Encounter Date Diagnosis Assessment Notes Treatment Notes Treatment Clinical Notes Jan, Pancreatic cyst (ICD-10 - K86.2) [facility] Other 11-06-2023 Evaluation note* Encounter Date Diagnosis Assessment Notes Treatment Notes Treatment Clinical Notes Jan, Compression fracture of lumbar vertebra, unspecified lumbar vertebral level, initial encounter (ICD-10 - S32.000A) Requests stronger pain med and agrees to referral to Dr. Flannery. Jan,losed fracture of right tibial plateau with routine healing, subsequent encounter (ICD-10 - S82.141D)Pt states she has a call out to Dr. Ward that has been managing her fracture. His staff will review Xrays w him and see if needs appt sooner. Otherwise on his schedule on 02/01 [facility] Other 10-17-2023 Evaluation note* Encounter Date Diagnosis Assessment Notes Treatment Notes Treatment Clinical Notes Dec, Bronchitis (ICD-10 - J40) Reviewed medications. Take antibiotics till finished. Okay to continue Mucinex. Dec,Yeast infection (ICD-10 - B37.9) Dec,losed fracture of right tibial plateau with routine healing, subsequent encounter (ICD-10 - S82.141D)Reviewed OARRS report. Recently sent in pain medication. States pain is adequately controlled with present prescription. [facility] Other 10-16-2023 Evaluation note* Encounter Date Diagnosis Assessment Notes Treatment Notes Treatment Clinical Notes Dec, Moderate episode of recurrent major depressive disorder (ICD-10 - F33.1) [facility] Other 10-09-2023 History of Present illness Narrative* [...] but prefers to have this done in [place] with Dr. Barksdale as she is unable to drive to a facility. Libby Muñoz PA-C documented in this encounterMarymount Hospital Work Phone: 1(242) 296-847909-14-2023 Evaluation note* Encounter Date Diagnosis Assessment Notes Treatment Notes Treatment Clinical Notes Nov, Other closed fractur e of proximal end of right tibia, initial [...] or perform ADLs safely without a wheelchair Nov,hronic obstructive pulmonary disease with (acute) exacerbation (ICD-10 - J44.1)Needs to d/c home oxygen fill and change to a portable oxygen concentrator. [facility] Other 09-14-2023 Evaluation note* Encounter Date Diagnosis Assessment Notes Treatment Notes Treatment Clinical Notes Nov, Other closed fractur e of proximal end of right tibia, initial [...] or perform ADLs safely without a wheelchair Nov,hronic obstructive pulmonary disease with (acute) exacerbation (ICD-10 - J44.1)Needs to d/c home oxygen fill and change to a portable oxygen concentrator. POC setting at 2 via nasal cannula. [facility] Other 09-11-2023 Evaluation note* Encounter Date Diagnosis Assessment Notes Treatment Notes Treatment Clinical Notes Nov, Dysuria (ICD-10 - R30.0) [facility] Other 08-24-2023 Evaluation note* Encounter Date Diagnosis Assessment Notes Treatment Notes Treatment Clinical Notes Oct, Fibromyalgia (ICD-10 - M79.7) [facility] Other 08-15-2023 Evaluation note* Encounter Date Diagnosis Assessment Notes Treatment Notes Treatment Clinical Notes Oct, Moderate episode of recurrent major depressive disorder (ICD-10 - F33.1) Pt recalls being on citalopram in the past. Patient is encouraged to stay active and remain involved. Try to keep themselves busy. Take medication as directed and we will continue to monitor. Oct,Fibromyalgia (ICD-10 - M79.7)Reviewed OARRS report. Continue meds and treatment. [facility] Other 07-27-2023 Evaluation note* Encounter Date Diagnosis Assessment Notes Treatment Notes Treatment Clinical Notes Sep, Diverticular disease (ICD-10 - K 57.90) [facility] Other 07-26-2023 Evaluation note* Encounter Date Diagnosis Assessment Notes Treatment Notes Treatment Clinical Notes Sep, Lumbar spondylosis (ICD-10 - M47 .816) [facility] 06-29-2023 Evaluation note* Encounter Date Diagnosis Assessment Notes Treatment Notes Treatment Clinical Notes Aug, Diverticular disease (ICD-10 - K 57.90) Patient reports constipation and she will try linzess 290 mg prescription sent to pharmacy RTO 3 months Aug,ERD (gastroesophageal reflux disease) (ICD-10 - K21.9) Aug,ancreas cyst (ICD-10 - K86.2)Patient is to have an MRCP dont at [facility] ordered today [facility] 06-28-2023 Evaluation note* Encounter Date Diagnosis Assessment Notes Treatment Notes Treatment Clinical Notes Aug, Lumbar spondylosis (ICD-10 - M47 .816) [facility] 06-20-2023 Evaluation note* Encounter Date Diagnosis Assessment Notes Treatment Notes Treatment Clinical Notes Aug, NOEL (generalized anxiety disorde r) (ICD-10 - F41.1) Chronic problem. Continue present medications. Aug,Irritable bowel syndrome with diarrhea (ICD-10 - K58.0)Has appointment next week with Dr. Meléndez. Defer to him before further imaging or lab tests are ordered. Aug,ancreatic duct disruption (ICD-10 - K86.89)Reviewed CT from December with patient. Will scan that CT into present EMR for review by her gastroen terologist next week. [facility] 06-16-2023 Evaluation note* Encounter Date Diagnosis Assessment Notes Treatment Notes Treatment Clinical Notes Aug, COPD exacerbation (ICD-10 - J44. 1) Discussed with patient exam and history is consistent with COPD exacerbation. Rapid COVID is negative in office. Will cover with azithromycin and prednisone burst. Continue maintenance and rescue inhaler as needed. May use Mucinex DM [id number]. Patient has follow-up with PCP next week. Advised to follow-up sooner if any rapidly increasing shortness of breath, wheezing, signs of respiratorydistress. Patient verbalized understanding of treatment plan. Patient reports history of frequent yeast infections with antibiotic use. Requesting Diflucan. Dosesent. Advised should only take it develop symptoms. Patient verbalized understanding. Aug,ongestion of nasal sinus (ICD-10 - R09.81) [facility] 06-01-2023 Evaluation note* Encounter Date Diagnosis Assessment Notes Treatment Notes Treatment Clinical Notes Aug, Lumbar spondylosis (ICD-10 - M47 .816) [facility] 05-25-2023 Evaluation note* Encounter Date Diagnosis Assessment Notes Treatment Notes Treatment Clinical Notes July, Chronic obstructive pulmonary disease with (acute) lower respiratory infection (ICD-10 - J44.0) Discussed prednisone could help her hip pain and her wheezing for a short term treatment July,Insomnia, idiopathic (ICD-10 - F51.01)d/c remeron start trazodone. f/u in 1 month [facility] Other 05-03-2023 Evaluation note* Encounter Date Diagnosis Assessment Notes Treatment Notes Treatment Clinical Notes July, Lumbar spondylosis (ICD-10 - M47 .816) [facility] 04-11-2023 Evaluation note* Encounter Date Diagnosis Assessment Notes Treatment Notes Treatment Clinical Notes Jun, Dysuria (ICD-10 - R30.0) Dip unremarkable today in office. We will hold off on culture at this time. Encourage patient to push fluids. Follow above treatment plan recommendations. Jun,Vaginal discharge (ICD-10 - N89.8) Discussed diagnosis with patient. Patient refuses pelvic exam today in office. Patient perform selfswab, will send in to check for BV/yeast. Advised that we will call with results in 2 to 5 days. Attime of results will send in medication if needed. Follow-up with [facility] if no improvement of symptoms. Immediate evaluation in ER for signs/symptoms as discussed. Patient verbalizes understanding and is agreeable with treatment plan. [facility] Other 04-07-2023 Evaluation note* Encounter Date Diagnosis Assessment Notes Treatment Notes Treatment Clinical Notes Jun, Mid back pain (ICD-10 - M54.9) Stretching exercises, heat/ice and Tylenol. Tramadol as needed. Discussed PT and pain management Jun,Idiopathic peripheral neuropathy (ICD-10 - G60.9)Stable but associated w/ unsteadiness. Fall precautions reviewed, encouraged to use assistive device for stability Increase Lyrica to 75mg tid Jun,Mucopurulent chronic bronchitis (ICD-10 - J41.1)Continue MDI as needed. No ER/Hosp visits due to AECOPD. Smoking cessation encouraged Jun,ge-related osteoporosis without current pathological fracture (ICD- 10 - M81.0)Calcium and Vitamin D supplements. Intolerance to Fosamax Never initiated Prolia DEXA Jun,Screening mammogram for breast cancer (ICD-10 - Z12.31)Screening mammogram due Continue SBE Jun,etechial rash (ICD-10 - R23.3)Seems to be improving. Assocated w/ venous congestion. Labs normal, monitor for now but seems to be improving Jun,hronic venous insufficiency (ICD-10 - I87.2)Avoid salt and elevate lower extremities, support stockings, inspect legs and feet daily for blisters and ulcerations. May be worsened by Lyrica [facility] 03-20-2023 Evaluation note* Encounter Date Diagnosis Assessment Notes Treatment Notes Treatment Clinical Notes May, Mucopurulent chronic bronchitis (ICD-10 - J41.1) Continue mucinex as needed. ANGELICA as needed May,etechial rash (ICD-10 - R23.3)Initiate evaluation for vasculitis. Continue Plavix for now May,Lumbar spondylosis (ICD-10 - M47.816)The patient is instructed to avoid bending, twisting or lifting. They are to use intermittent heat and ice as needed. They may schedule a massage or gentle manipulation. They may safely use Tylenol as needed. May,ERD (gastroesophageal reflux disease) (ICD-10 - K21.9)Diet instructions: Smaller portions, avoid eating and laying flat, avoid eating or drinking prior to bedtime. Weight loss. May,Idiopathic peripheral neuropathy (ICD-10 - G60.9)Fall precautions, continued use of assistive device. May,Irritable bowel syndrome with diarrhea (ICD-10 - K58.0)Diet instructions, keep active and Bentyl as needed May,Fatigue, unspecified type (ICD-10 - R53.83)Healthy diet and keep active [facility] 03-03-2023 Evaluation note* Encounter Date Diagnosis Assessment Notes Treatment Notes Treatment Clinical Notes May, Lumbar spondylosis (ICD-10 - M47 .816) [facility] 03-03-2023 Evaluation note* Encounter Date Diagnosis Assessment Notes Treatment Notes Treatment Clinical Notes May, Acute bronchitis due to other sp ecified organisms (ICD-10 - J20.8) [facility] 02-28-2023 Evaluation note* Encounter Date Diagnosis Assessment Notes Treatment Notes Treatment Clinical Notes Apr, Acute bronchitis due to other sp ecified organisms (ICD-10 - J20.8) Instructed to use Robitussin or Mucinex for cough, saline or Flonase NS for congestion, Tylenol forpain and fever. Apr,hronic obstructive pulmonary disease with (acute) lower respiratory infection (ICD-10 - J44.0)Continue Mucinex and push fluids. Apr,hronic obstructive pulmonary disease with (acute) exacerbation (ICD-10 - J44.1)Continue ADvair and increase use of ANGELICA to every 4 hours as needed for cough and dyspnea [facility] 02-28-2023 Evaluation note* Encounter Date Diagnosis Assessment Notes Treatment Notes Treatment Clinical Notes Apr, Chronic obstructive pulmonary disease with (acute) exacerbation (ICD-10 - J44.1) [facility] 02-02-2023 Evaluation note* Encounter Date Diagnosis Assessment Notes Treatment Notes Treatment Clinical Notes Apr, Lumbar spondylosis (ICD-10 - M47 .816) [facility] 01-04-2023 Evaluation note* Encounter Date Diagnosis Assessment Notes Treatment Notes Treatment Clinical Notes Mar, Lumbar spondylosis (ICD-10 - M47 .816) [facility] 01-03-2023 Evaluation note* Encounter Date Diagnosis Assessment Notes Treatment Notes Treatment Clinical Notes Mar, Diverticular disease (ICD-10 - K 57.90) continue dicyclomine as needed. Mar,lternating constipation and diarrhea (ICD-10 - R19.8)start metamucil gummies every day. Mar,ERD (gastroesophageal reflux disease) (ICD-10 - K21.9)patient to continue pantoprazole [facility] Encounter Date Diagnosis Assessment Notes Treatment Notes Treatment Clinical Notes Nov, Lower abdominal pain (ICD-10 - R 10.30) PATIENT STATES THAT SHE DOES HAVE BURNING. Nov,onstipation (ICD-10 - K59.00)PATIENT STATES MOVING BOWELS EVERYDAY PATIENT DID REDUCE THE DICYCLOMINE TO NEEDED WHN CONSTIPATED THIS MADE IT WORSE PATIENT IS ADVISED WE WILL START MOVANTIK [facility] Other 09-01-2022 Evaluation note* Encounter Date Diagnosis Assessment Notes Treatment Notes Treatment Clinical Notes Nov, GERD (gastroesophageal reflux di sease) (ICD-10 - K21.9) [facility] 08-11-2022 NotePROCEDURE: XR HIP RT 2 3V W PELVIS COMPARISON: None. HISTORY: Injury of right hip region FINDINGS: BONES:No acute fracture or dislocation. Minimal degenerative osteoarthropathy of the hips SOFT TISSUES:Negative. No visible soft tissue swelling. EFFUSION:None visible. OTHER: Negative. IMPRESSION: No acute abnormality Electronically authenticated by: JANNA LAWTON Date: 2021-10-20 12:03[facility]06-27-2022 Evaluation note* Encounter Date Diagnosis Assessment Notes Treatment Notes Treatment Clinical Notes Aug, Age-related osteopor osis without current pathological fracture (ICD-10 - M81.0) I do not see any acute fracture at this time. Unfortunate I do not feel there is much we can offer her for her pain. Aug,Idiopathic peripheral neuropathy (ICD-10 - G60.9)I believe the patient's hands and feet symptoms are a peripheral neuropathy. If she wanted further evaluation of that she would need to get an EMG and nerve conduction study. She would see neurology for that testing. This would also evaluate her for possible cervical radiculopathy although I think that is less likely. [facility] 04-04-2022 Evaluation note* Encounter Date Diagnosis Assessment Notes Treatment Notes Treatment Clinical Notes Jun, LUQ abdominal pain (ICD-10 - R10 .12) CONTINUE DICYCLOMINE 20 MG TID RTO 6-8 WEEKS Jun,Irritable bowel syndrome with diarrhea (ICD-10 - K58.0) Jun,loating (ICD-10 - R14.0) Jun,GERD (gastroesophageal reflux disease) (ICD-10 - K21.9) STOP OMEPRAZOLE [facility] 02-02-2022 Evaluation note* Encounter Date Diagnosis Assessment Notes Treatment Notes Treatment Clinical Notes Apr, Contact with and (broderick spected) exposure to other viral communicable diseases (ICD-10 - Z20.828) Apr,Viral upper respiratory illness (ICD-10 - J06.9) Drink plenty of fluids, get plenty of rest. Continue your home medications as prescribed. Take the Zithromax and prednisone as prescribed until gone. Take the Diflucan as prescribed until gone. Follow-up with your family physician if no improvement in 2 to 3 days. Go to the ER for worsening symptoms or concerns Apr,ther Additional time spent conducting pre-visit phone call, screening for symptoms, instructions on social distancing, application and removal of PPE, and cleaning of examination room, equipment and supplies was preformed. Patient education given for testing methodology and results. Patient care instructions given in writting by [facility] document. [facility] Other 11-11-2021 Evaluation note* Encounter Date Diagnosis Assessment Notes Treatment Notes Treatment Clinical Notes Jan, Irritable bowel syndrome with di arrhea (ICD-10 - K58.0) OBTAIN [facility]ONOSCOPY FROM [facility] IN 06/2019ower abdominal pain (ICD-10 - R10.30) STOP DICYCLOMINE PT TO REPORT PROGRESS Jan,loating (ICD-10 - R14.0) Jan,ectal burning (ICD-10 - K62.89) [facility] 09-28-2021 Evaluation note* Encounter Date Diagnosis Assessment Notes Treatment Notes Treatment Clinical Notes Nov, Irritable bowel syndrome with di arrhea (ICD-10 - K58.0) Nov,Generalized abdominal pain (ICD-10 - R10.84) Nov,bdominal bloating (ICD-10 - R14.0) Nov,History of ischemic colitis (ICD-10 - Z87.19) Nov,Other CT ABD /PELVIS START DICYCLOMINE 20 MG TID ROT 4-6 WEEKS Diarrhea material was printed [facility] Other Evaluation + Plan note No data available for this section [facility] evaluation noteNo InformationNortTellMi Other Evaluation noteNo assessment information available [facility] Work Phone: Evaluation note* Diagnosis 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 documented in this encounter [facility] Work Phone: Evaluation note* Diagnosis Compression fracture of T12 vertebra with delayed healing, subsequent encounter Other osteoporosis with current pathological fracture, vertebra(e), initial encounter for fracture (HCC) documented in this encounter [facility] note* Diagnosis Onset Date Resolution Status Anxiety acuteRight femoral fractureacuteUTI (urinary tract infection)acuteVertebral compression fractureacuteFibromyalgiachronicAnxietyacuteCOPD exacerbation resolved [facility] Work Phone: Evaluation note* Diagnosis Onset Date Resolution Status Anxiety acuteCOPD exacerbationresolvedFibromyalgiaselect specialty hospital-[facility] Work Phone: Evaluation note* Diagnosis Onset Date Resolution Status COPD exacerbation resolvedAnxietyacuteRight femoral fractureacuteUTI (urinary tract infection) acuteVertebral compression fractureacuteProvidence St. Joseph'S HospitalmyalgiaTriHealth [facility] Work Phone: Evaluation note* Diagnosis Onset Date Resolution Status Anxiety acuteRight femoral fractureacuteUTI (urinary tract infection)acuteVertebral compression fractureacuteFibromyalgiachronicConstipationacuteGERD (gastroesophageal reflux disease)acutePancreatic lesionacute [facility] Work Phone: Evaluation note* Diagnosis Pancreatic cyst- Primary Cyst and pseudocyst of pancreas documented in this encounter [facility] note* Diagnosis Chronic LUQ pain- Primary Abdominal pain, left upper quadrant Weight loss Loss of weight Pancreatic cyst Cyst and pseudocyst of pancreas Family history of colon cancer in father Smoker Tobacco use disorder documented in this encounter [facility] note* Diagnosis Onset Date Resolution Status Constipation acuteGERD (gastroesophageal reflux disease)acutePancreatic lesionacute [facility] Work Phone: Evaluation note* Diagnosis Onset Date Resolution Status Constipation acuteGERD (gastroesophageal reflux disease)acutePancreatic lesionacuteAnxiety acutePancreatic lesionacuteRight femoral fractureacuteVertebral compression fractureacuteCOPD (chronic obstructive pulmonary disease)chronicFibromyalgia chronicUTI (urinary tract infection)acuteDysurianoneactive [facility] Work Phone: Evaluation note* Diagnosis Pancreatic cyst Cyst and pseudocyst of pancreas documented in this encounter [facility] note* Diagnosis Pancreatic cyst (HCC)- Primary Cyst and pseudocyst of pancreas documented in this encounter [facility] general Narrative - Reported* Type Description Date Medical History CVA x 3 Medical HistoryFibromyalgiaMedical HistoryCOPDMedical HistoryNeuropathyMedical HistoryDDDMedical HistorydepressionMedical Historyhepatitis B 1972Medical Historydiverticulitis hxSurgical HistoryHYSTERECTOMYSurgical HistoryHysterectomy 1981Surgical HistoryCTR B/Q5411Phqmvelw HistoryLung surgery, [id number] Surgical Historyr/o neck lesion, bx salivary gland HHTHospitalization HistoryHep [id number] Historydiverticulitis [facility] general Narrative - Reported* Type Description Date Medical History CVA x 3 Medical HistoryFibromyalgiaMedical HistoryCOPDMedical HistoryNeuropathyMedical HistoryDDDMedical HistorydepressionMedical Historyhepatitis B 1972Medical Historydiverticulitis hxSurgical HistoryHYSTERECTOMYSurgical HistoryHysterectomy 1981Surgical HistoryCTR B/C4500Hplqnmzt HistoryLung surgery, [id number] Surgical Historyr/o neck lesion, bx salivary gland HHTSurgical Historyexcision vaginal polyp04/2022Hospitalization HistoryHep [id number] History diverticulitisHospitalization Historychest pain in Jan 2022 - non cardiac [facility] Other History general Narrative - ReportedNort [facility] Other History general Narrative - Reported* Type Description Date Medical History CVA x 3 Medical HistoryFibromyalgiaMedical HistoryCOPDMedical HistoryNeuropathyMedical HistoryDDDMedical HistorydepressionMedical Historyhepatitis B 1972Medical Historydiverticulitis hxMedical HistoryArthritisMedical Historyhepatitis B Medical Historymigraine headacheMedical HistoryosteoporosisMedical History chronic depressionMedical HistoryanxietySurgical HistoryHYSTERECTOMYSurgical UvrywaeBwnqkwofnkjd8265Quznboxb HistoryCTR B/T2089Yeealams HistoryLung surgery, sfbsxrlomyue8007Ydvrhejf Historyr/o neck lesion, bx salivary gland HHTSurgical Historyexcision vaginal polyp04/2022Hospitalization HistoryHep B1973 Hospitalization HistorydiverticulitisHospitalization Historychest pain in Jan 2022 - non cardiac [facility] Other Hospital Discharge instructions Additional Instructions DISCHARGE [...] if you have any problems. -Office number [phone] Hospital Work Phone: Hospital Discharge instructions No data available for this section [facility] Hospital Discharge instructionsAmbulatory Orders* Referral to Gastroenterology Time Frame: 11/26/23, Location: None [facility] Work Phone: Progress note No data available for this section [facility] reason for referral (narrative)* Outpatient Procedure (Routine) - Pending ReviewSpecialtyDiagnoses / ProceduresReferred By Contact Referred To ContactLEH[facility] Diagnoses Pancreatic cyst Procedures EGD - THERAPEUTIC, EUS, OR TUBE INTERVENTIONS EGD INTRMURAL US NEEDLE ASPIRATE/[place] [address] [place] [address] [facility] [address] [place] [address] Referral IDStatusReasonStart DateExpiration DateVisits RequestedVisits [id number] Review Auto-Generated Referral [facility] for referral (narrative)* Outpatient Procedure (Routine) - ClosedSpecialtyDiagnoses / ProceduresReferred By ContactReferred To Contact Diagnoses Pancreatic cyst Procedures EGD - THERAPEUTIC, EUS, OR TUBE INTERVENTIONS EGD INTRMURAL US NEEDLE ASPIRATE/[place] [address] [place] [address] [place] [address] Referral IDStatusReasonStart DateExpiration DateVisits RequestedVisits [id number] Auto-Generated Referral / [facility]Reason for referral (narrative)No reason for referral information availableSouthwest General Health Center Work Phone: Reason for visit NarrativePAIN MANAGEMENT REFERRAL UPDATENort [facility] Other reason for visit Narrative* Outpatient Procedure (Routine) - ClosedSpecialtyDiagnoses / ProceduresReferred By ContactReferred To Contact Diagnoses Pancreatic cyst Procedures EGD - THERAPEUTIC, EUS, OR TUBE INTERVENTIONS EGD INTRMURAL US NEEDLE ASPIRATE/[place] [address] [place] [address] [facility] [address] [place] [address] Referral IDStatusReasonStart DateExpiration DateVisits RequestedVisits [id number] Auto-Generated Referral / [facility] Chief Complaint and Reason for Visit Chief Complaint Constipation, Abdomi nal Pain Chief Complaint Vaginal discharge Chief Complaint K86.2 Chief Complaint K86.2 dysuria Chief Complaint flank pain, dysuria Z87.81 Chief Complaint 4 Wk F/U Comp Fx Amb Documentation medication review Chief Complaint 4 Wk F/U Comp Fx Amb Documentation medication review Dysuria Chief Complaint Amb Documentation medication review R30.0 mental health issues [phone] head and chest cold since wedReason for VisitAnxiety Right femoral fracture UTI (urinary tract infection) Vertebral compression fracture Fibromyalgia Anxiety COPD exacerbation Chief Complaint mental health issues [phone] head and chest cold since wed 3 month f/uReason for VisitAnxiety COPD exacerbation Fibromyalgia Chief Complaint head and chest cold since wed 3 month f/u K86.2Reason for VisitCOPD exacerbation Anxiety Right femoral fracture UTI (urinary tract infection) Vertebral compression fracture Fibromyalgia Chief Complaint 3 month f/u K86.2 follow up/MRIReason for VisitAnxiety Right femoral fracture UTI (urinary tract infection) Vertebral compression fracture Fibromyalgia Constipation GERD (gastroesophageal reflux disease) Pancreatic lesion Chief Complaint K86.2 follow up/MRI 3 month f/uReason for VisitConstipation GERD (gastroesophageal reflux disease) Pancreatic lesion Chief Complaint K86.2 follow up/MRI 3 month f/u Amb Documentation Poss UTIReason for VisitConstipation GERD (gastroesophageal reflux disease) Pancreatic lesion Anxiety Pancreatic lesion Right femoral fracture Vertebral compression fracture COPD (chronic obstructive pulmonary disease) Fibromyalgia UTI (urinary tract infection) Dysuria Chief Complaint K86.2 follow up/MRI 3 month f/u Amb Documentation Poss UTI DysuriaReason for VisitConstipation GERD (gastroesophageal reflux disease) Pancreatic lesion Anxiety [...] 2024 1:09 pm GERD (gastroesophageal reflux disease) David subramanian 2024 1:09pm Opioid-induced constipation October 01, 2 [...] 2024 1:09 pm GERD (gastroesophageal reflux disease) David subramanian 2024 1:09pm Opioid-induced constipation October 01, 2 025 1:09pm Pancreatic lesion October 01, 2024 1:09 pm Anxiety December 22, 2024 1 :02pm Bilateral lower extremity edema October 13th, 2025 1:02pm Chronic thoracic back pain December 22, [...] grandparent Malignant neoplasm of breast Unknown Not SpecifiedHeart diseaseUnknown Relationship Condition Age at Onset Recorded Date/T jose grandparent Malignant neoplasm of breast Unknown Not SpecifiedHeart diseaseUnknownbrotherDeceasedUnknownfatherHeart disease UnknownMalignant neoplasmUnknownDeceasedUnknowngrandparentMalignant neoplasm UnknownNot SpecifiedDiabetes mellitusUnknownHeart diseaseUnknownHistory of strokeUnknown Relationship Condition Age at Onset Recorded Date/T jose grandparent Malignant neoplasm of breast Unknown motherHeart diseaseUnknownbrotherDeceasedUnknownfatherHeart diseaseUnknown Malignant neoplasmUnknownDeceasedUnknowngrandparentMalignant neoplasmUnknown motherDiabetes mellitusUnknownHeart diseaseUnknownHistory of strokeUnknown Advance Directives Advance Directive Response Recorded Date/ Time Advance Directives No April 18, 2019 2:20am Advance Directive Response Recorded Date/ Time Advance Directives No April 18, 2019 3:20am Summary Purpose Reason for Referral SpecialtyDiagnoses / ProceduresReferred By ContactReferred To ContactRadiology Diagnoses Compression fracture of T12 vertebra with delayed healing, subsequent encounter Other osteoporosis with current pathological fracture, vertebra(e), initial encounter for fracture (HCC) Procedures IR VERTEBROPLASTY EACH ADDITIONAL Gabby Lo APRN - [place] [address] [address] Referral IDStatusReasonStart DateExpiration DateVisits RequestedVisits [id number] / Procedures Referred By ContactReferred To ContactRadiology Diagnoses Compression fracture of T12 vertebra with delayed healing, subsequent encounter Other osteoporosis with current pathological fracture, vertebra(e), initial encounter for fracture (HCC) Procedures IR VERTEBROPLASTY CERVICOTHORACIC Gabby Lo APRN - CNP [address] [facility] [address] [place] [address] Referral IDStatusReasonStart DateExpiration DateVisits RequestedVisits [id number] Reason evaluate and treat f or compression fracture Diagnosis 1 Compression fracture of T11 vertebra with delayed healing, subsequent encounter (S22.080G) Referral Organization [facility] urosurger Referring Provider First Name Ana Referring Provider Last Name Kim Referring Provider Specialty Nurse Pract itioner Referred Organization [facility] Referred Address [address] [facility] [place], [place],[address] Referred Provider Specialty Intervention al Radiology Referral Priority Routine Reason evaluate and treat Diagnosis 1 Compression fracture of T11 vertebra with delayed healing, subsequent encounter (S22.080G) Referral Organization [facility]. [facility] Referring Provider First Name Ana Referring Provider Last Name Kim Referring Provider Specialty Nurse Pract itioner Referred Organization [facility] Referred Address [address] [facility] [place] [place] Referred Provider Specialty DME Referral Priority Routine Reason evaluate and kwasi at Diagnosis 1 Age-related osteopor osis with current pathological fracture, initial encounter (M80.00XA) Referral Organization [facility] Referring Provider First Name Ana Referring Provider Last Name Kim Referring Provider Specialty Nurse Pract itioner Referred Organization [facility] Referred Provider Christo Lobo Referred Address [address] [address] ,[place], [place],[address] Referred Provider Specialty Pain Medicin e Referral Priority Routine General Notes Rebeca Pleitez 11:19:46 AM >received today, patient did just have MRI ordered but has already had CT of the Lumbar spine completed. Sending p2p at this time for scheduling Reason evaluate and kwasi at Diagnosis 1 Age-related osteopor osis with current pathological fracture, initial encounter (M80.00XA) Referral Organization [facility] Referring Provider First Name Ana Referring Provider Last Name Julio Referring Provider Specialty Nurse Jose sheriff Referred Organization [facility] Referred Provider Rebeca Munguia Referred Address [address] [place],[address] Referred Provider Specialty Nurse Virgil stoen Referral Priority Routine General Notes Rebeca Pleitez 02:57:56 PM >received today, sending p2p at this time for scheduling Reason 01/23/23 Aleksey off ice - lumbar compression fracture - imaging at [facility] Diagnosis 1 Compression fracture of lumbar vertebra, unspecified lumbar vertebral level, initial encounter (S32.000A) Referral Organization [facility] marcell Referring Provider First Name Nettie Referring Provider Last Name Kathy Referring Provider Specialty Multispectral Imaging Referred Organization [facility] Referred Provider Robin Flannery Referred Address ,[place], [place],[address] Referred Provider Specialty Orthopedic S urgery Referral [...] - lumbar compression fracture - imaging at [facility] Diagnosis 1 Compression fracture of lumbar vertebra, unspecified lumbar vertebral level, initial encounter (S32.000A) Referral Organization [facility] Referring Provider First Name Nettie Referring Provider Last Name Kathy Referring Provider Specialty Multispectral Imaging Referred Organization [facility] Referred Provider Robin Flannery Referred Address ,[place], [place],[address] Referred Provider Specialty Orthopedic S urgery Referral Priority Routine General Notes Mirna Bruce 04:32:13 PM >received today, attachments made, notes locked, referral faxed Additional Source Comments REASON FOR VISIT (unrecogniz ed section and content) SpecialtyDiagnoses / ProceduresReferred By ContactReferred To ContactRadiology Diagnoses Compression fracture of T12 vertebra with delayed healing, subsequent encounter Other osteoporosis with current pathological fracture, vertebra(e), initial encounter for fracture (HCC) Procedures IR VERTEBROPLASTY CERVICOTHORACIC Gabby Lo APRN - [employer] [address] [address] Referral IDStatusReasonStart DateExpiration DateVisits RequestedVisits [id number] for EUS--->needs OV firstReasonCommentsNew Patient EvaluationReasonCommentsFollow Up Tests ResultsCytology---->recommend MRCP in [address] Erwin [...] Care Provider Active Start: January 03, 2024 Amena Andres ProviderActiveStart: January 03, 2024 Team Status: Active Member Role Status Dates Nettie Iqbal MD Primary Care Provider Active Start: January 08, 2024 Beau Macedo ProviderActiveStart: January 08, 2024 Team Status: Inactive Member Role Status Dates Nettie Iqbal MD Primary Care Provider Active Start: January 16, 2024 End: January 15Toribio Zaman ProviderActiveStart: January 16, 2024 End: January 16, 2024 Team Status: Inactive Member Role Status Dates Lilia Barry APRN Attending Provider Active S tart: January 16, 2024 End: January 16, 2024 Team Status: Active Member Role Status Dates Nettie Iqbal MD Primary Care Provider Active Start: March 19, 2024 Amena Bearden ProviderActiveStart: March 19, 2024 Team Status: Inactive Member Role Status Dates Nettie Iqbal MD Primary Care Provide r, Attending Provider Active Start: July 26, 2023 End: July 26, 2023 Team Status: Inactive Member Role Status Augusto Iqbal MD Primary Care Provider Active Start: August 11, 2023 End: August 11, 2023Sandra Flores APRNAttenyasmine ProviderActiveStart: August 11, 2023 End: August 11, 2023 Team Status: Inactive Member Role Status Augusto Iqbal MD Primary Care Provide r, Attending Provider Active Start: September 24, 2023 End: September 24, 2023 Team Status: Active Member Role Status Augusto Iqbal MD Primary Care Provider Active Start: May 28, 2023 ANKIT BrownAAttenyasmine ProviderActiveStart: May 28, 2023 Team Status: Inactive Member Role Status Augusto Iqbal MD Primary Care Provide r, Attending Provider Active Start: June 22, 2023 End: June 22, 2023 Team Status: Inactive Member Role Status Augusto Iqbal MD Attending Provider Active St art: June 22, 2023 End: June 22, 2023 Team Status: Inactive Member Role Status Augusto Pruitt DO Primary Care Provider Active Kiran Barksdale MDAttending ProviderActive Team Status: Active Member Role Status Augusto Pruitt DO Primary Care Provider Active Team Status: Inactive Member Role Status Augusto Sanford APRN Attending Provider Active Team Status: Inactive Member Role Status Augusto Barksdale MD Attending Provider Active Velia [facility]el[facility] Care ProviderActive Team Status: Inactive Member Role Status Augusto Iqbal MD Attending Provider Active Team Status: Inactive Member Role Status Augusto Iqbal MD Attending Provider Active PHYSICIAN NO FAMILYPrimary Care ProviderActive Team Status: Inactive Member Role Status Augusto Iqbal MD Primary Care Provider Active Debbie Felder ProviderActiveTeam MemberRelationshipSpecialty Start DateEnd Nettie Guillen MD [address] [place] [address] PCP - GeneralFamily Medicine06/13/23 Team Status: Inactive Member Role Status Dates Ana Kim , EDITORIAL ASSISTANT-C Attending Provider Active Start: April 11, 2023 End: April 11, 2023 Team Status: Inactive Member Role Status Dates Horacio Erwin MD Attending Provider Active S tart: November 02, 2023 End: November 02, 2023Kelly Patel Care ProviderActiveStart: November 02, 2023 End: November 02, 2023 Team Status: Inactive Member Role Status Dates Nettie Iqbal MD Primary Care Provider Active Start: November 26, 2023 End: November 25Amena Mack ProviderActiveStart: November 26, 2023 End: November 26, 2023Team MemberRelationshipSpecialtyStart DateEnd Date Nettie Iqbal MD [address] [place] [address] [facility] - [facility]/30/23Team MemberRelationshipSpecialtyStart DateEnd Date Nettie Iqbal MD [address] [facility] [place] [address] PCP - [facility] Medicine11/30/23 Team Status: Active Member Role Status Dates Nettie Iqbal MD Primary Care Provider Active Start: December 06, 2023 Amena Bearden ProviderActiveStart: December 06, 2023 Team Status: Active Member Role Status Dates Nettie Iqbal MD Primary Care Provider Active Start: December 12, 2023 Young Dotson ProviderActiveStart: December 12, 2023 Team Status: Inactive Member Role Status Dates Nettie Iqbal MD Primary Care Provide radha, Attending Provider Active Start: December 25, 2023 End: December 25, 2023 Team Status: Active Member Role Status Dates Nettie Iqbal MD Primary Care Provider Active Start: December 12, 2023 Young Pineda ProviderActiveStart: December 12, 2023 Team Status: Active Member Role Status Dates Nettie Iqbal MD Primary Care Provider Active Start: January 03, 2024 Amena Bearden ProviderActiveStart: January 03, 2024 Team MemberRelationshipSpecialtyStart DateEnd Date Nettie Iqbal MD [address] [facility] [place] [phone] PCP - GeneralFamily Medicine11/30/23Team MemberRelationshipSpecialtyStart DateEnd Date Nettie Iqbal MD [address] [facility] [place] [address] PCP - GeneralFamily Medicine11/30/23Team MemberRelationshipSpecialtyStart DateEnd Date Nettie Iqbal MD [address] [facility] [place] [address] PCP - GeneralFamily Medicine11/30/23Team MemberRelationshipSpecialtyStart DateEnd Date Nettie Iqbal MD [address] [facility] [place] [phone] PCP - GeneralFamily Medicine11/30/23Team MemberRelationshipSpecialtyStart DateEnd Date Nettie Iqbal MD [address] [facility] [place] [phone] PCP - GeneralFamily Medicine11/30/23 Team Status: Inactive Member Role Status Dates Nettie Iqbal MD Primary Care Provider Active Start: July 05, 2024 End: July 05Amena Mack ProviderActiveStart: July 05, 2024 End: July 05, 2024Team MemberRelationshipSpecialtyStart DateEnd Date Nettie Iqbal MD [address] [facility] [place] [address] PCP - GeneralFamily Medicine11/30/23 Team Status: Active Member Role Status Dates Everett Dunlap Specialist Active Kelly Patel Care ProviderActive Team Status: Active Member Role Status Dates Nettie Iqbal MD Primary Care Provider Active Start: August 21, 2024 Jaymie Duncan EDITORIAL ASSISTANT-CAttending ProviderActiveStart: August 21, 2024 Team Status: Inactive Member Role Status Dates Nettie Iqbal MD Primary Care Provider Active Start: September 23, 2024 End: September 23, 2024Nettie Iqbal MDAttkelly ProviderActiveStart: September 23, 2024 End: September 23, 2024 Team Status: Inactive Member Role Status Dates Nettie Iqbal MD Primary Care Provider Active Start: October 01, 2024 End: October 01, 2024Obed Lima APRNAtmahad ProviderActiveStart: October 01, 2024 End: October 01, 2024 Team Status: Inactive Member Role Status Dates Nettie Iqbal MD Primary Care Provider Active Start: December 22, 2024 End: December 22, 2024Amena Patel ProviderActiveStart: December 22, 2024 End: December 22, 2024 Goals (unrecognized section and content) Goals may be documented in a n alternate section INFORMATION SOURCE (unrecogn ized section and content) DATE CREATED AUTHOR 08/18/2022 [facility] DATE CREATED AUTHOR AUTHOR'S ORGANIZ ATION 12/27/2022 [facility] DATE CREATED AUTHOR AUTHOR'S ORGANIZ ATION 01/29/2023 [facility] DATE CREATED AUTHOR AUTHOR'S ORGANIZ ATION 06/14/2023 [facility] DATE CREATED AUTHOR AUTHOR'S ORGANIZ ATION 06/19/2023 [facility] DATE CREATED AUTHOR AUTHOR'S ORGANIZ ATION 03/25/2024 [facility] DATE CREATED AUTHOR AUTHOR'S ORGANIZ ATION 07/06/2024 [facility] DATE CREATED AUTHOR AUTHOR'S ORGANIZ ATION 07/23/[address] [facility] DATE CREATED AUTHOR AUTHOR'S ORGANIZ ATION 11/23/2024 [facility] Source Comments (unrecognize d section and content) In the event this informatio n is protected by the Federal Confidentiality of Alcohol and Drug Abuse Patient Records regulations: The Federal rules restrict any use of the information to criminally investigate or prosecute any alcohol or drug abuse patient.[facility] the event this information is protected by the Federal Confidentiality of Alcohol and Drug Abuse Patient Records regulations: The Federal rules restrict any use of the information to criminally investigate or prosecute any alcohol or drug abuse patient.[facility] Hospital[facility] the event this information is protected by the Federal Confidentiality of Alcohol and Drug Abuse Patient Records regulations: The Federal rules restrict any use of the information to criminally investigate or prosecute any alcohol or drug abuse patient.[facility] HospitalIn the event this information is protected by the Federal Confidentiality of Alcohol and Drug Abuse Patient Records regulations: The Federal rules restrict any use of the information to criminally investigate or prosecute any alcohol or drug abuse patient.[facility] HospitalIn the event this information is protected by the Federal Confidentiality of Alcohol and Drug Abuse Patient Records regulations: The Federal rules restrict any use of the information to criminally investigate or prosecute any alcohol or drug abuse patient.[facility] HospitalIn the event this information is protected by the Federal Confidentiality of Alcohol and Drug Abuse Patient Records regulations: The Federal rules restrict any use of the information to criminally investigate or prosecute any alcohol or drug abuse patient.[facility] HospitalIn the event this information is protected by the Federal Confidentiality of Alcohol and Drug Abuse Patient Records regulations: The Federal rules restrict any use of the information to criminally investigate or prosecute any alcohol or drug abuse patient.[facility] HospitalIn the event this information is protected by the Federal Confidentiality of Alcohol and Drug Abuse Patient Records regulations: The Federal rules restrict any use of the information to criminally investigate or prosecute any alcohol or drug abuse patient.[facility] HospitalIn the event this information is protected by the [facility] Confidentiality of Alcohol and Drug Abuse Patient Records regulations: The Federal rules restrict any use of the information to criminally investigate or prosecute any alcohol or drug abuse patient.[facility] HospitalIn the event this information is protected by the Federal Confidentiality of Alcohol and Drug Abuse Patient Records regulations: The Federal rules restrict any use of the information to criminally investigate or prosecute any alcohol or drug abuse patient.[facility] FOR RECORDS PERTAINING TO PATIENTS WHO [...] BE BASED ON THE PRIMARY CLINICAL RECORDS. [employer] [facility]. provides no warranty or guarantee of the accuracy or completeness of information in this document.
--- OUTSIDE RECORDS SUMMARY | 2025-03-07 13:13 | XMS_ITS | Clinical Summary ---
Author Organization [facility] Address [address] [facility] [place] [address] Care Team Providers Care Angle Shear Set Up Operator Name Role Phone Yolanda Chavez MD Primary Care Provider [phone] Allergies Active AllergyReactionsCriticalityNoted DateComments Sulfamethoxazole-Lasqozqnoqnk99/14/2076Jerjjyxeu23/23/2889Usqinpooq58/23/2018 LcgjymlCnxfrxa11/14/9187Lmkelgjgmlc68/23/2018 Other Reaction(s): Unknown Medications MedicationSigDispense QuantityRefillsLast FilledStart DateEnd DateStatus traZODone (Desyrel) 50 MG tablet Take 50 mg by mouth as needed at bedtime.12/31/2022ctive pregabalin (Lyrica) 150 MG capsule Take 150 mg by mouth in the morning and 150 mg before bedtime.01/04/2023ctive pantoprazole (ProtoNix) 40 MG EC tablet 01/20/2023ctive Linzess 290 MCG capsule take 1 capsule by mouth twice a day ON AN EMPTY FXBURSH3001/08/2023ctive hydrOXYzine HCl (Atarax) 25 MG tablet 01/19/2023ctive HYDROcodone-acetaminophen (Durango) 10-325 MG tablet Take 1 tablet by mouth every 6 (six) hours if needed.01/18/2023ctive escitalopram (Lexapro) 10 MG tablet 01/19/2023ctive ALPRAZolam (Xanax) 0.5 MG tablet Take 0.5 mg by mouth in the morning and 0.5 mg in the evening and 0.5 mg before bedtime.Active albuterol (2.5 MG/3ML) 0.083% nebulizer solution inhale contents of 1 vial in nebulizer by mouth every 6 hours if needed 3Active Active Problems ProblemNoted DateDiagnosed DateLumbar ltnjrzstqhy57/23/2018Impaired fasting gfhnpkw0810/01/2017IBS (irritable bowel syndrome)10/01/2017Hyperlipidemia 10/01/2017HBV (hepatitis B virus) lrekodxkv63/23/9239Hlxkvbgqpest23/23/2018 Ycfmgbgbmq64/23/2018CVD (cardiovascular disease)10/01/2017Anxiety disorder 10/01/2017 Immunizations ImmunizationAdministration DatesNext DueInfluenza, High Dose Seasonal, Preservative Free12/24/2021Influenza, High-dose Seasonal, Quadrivalent, Preservative Free10/24/2022Influenza, Injectable, MDCK, preservative free 12/10/2013Influenza, Seasonal, Quadrivalent, Qlbmypumzu30/19/2022Influenza, injectable, MDCK, preservative free, dcizommqtwyt12/20/2019Influenza, injectable, MDCK, /29/2018Influenza, seasonal, injectable 12/07/2016Influenza, trivalent, vlkdyygatk53/06/2021Pneumococcal Polysaccharide LPRB6589,01/10/2005,02/05/2001Zoster, live10/18/2016,04/24/2016 Family History Medical HistoryRelationNameCommentsHeart diseaseMotherRelationNameStatusComments FatherDeceasedMotherDeceased Social History Tobacco UseTypesPacks/DayYears UsedDateSmoking Tobacco: FormerCigarettes Smokeless Tobacco: Never Tobacco Cessation:Counseling Given: Not Answered Alcohol UseStandard Drinks/WeekCommentsNot Currently0 (1 standard drink = 0.6 oz pure alcohol)CommentsUnknownSex and Gender InformationValueDate Recorded Sex Assigned at BirthNot on fileLegal AesAhnrtq91/15/2023 7:33 PM EDTGender IdentityNot on fileSexual OrientationNot on file Last Filed Vital Signs Vital SignReadingTime TakenCommentsBlood Bwnivprt732/8002/ 12:00 PM EST Pulse--Temperature--Respiratory Rate--Oxygen Saturation--Inhaled Oxygen Concentration--Tyfmqz27.2 kg (115 lb)01/23/2023 12:25 PM FRAQpsykv332.5 cm (5' 2 )01/23/2023 12:25 PM ESTBody Mass Index21.03103/25/2022 12:25 PM EST Plan of Treatment Not on file Insurance Care Teams Team MemberRelationshipSpecialtyStart DateEnd Date Yolanda Chavez MD PCP - GeneralFamily Medicine11/22/22
--- OUTSIDE RECORDS SUMMARY | 2025-03-07 13:13 | XMS_ITS | Patient Health Record ---
Author Organization [facility] Address [address] [place] [address] Care Team Providers Care Roller Printing Supervisor Name Role Phone Jayesh Hummel MD Primary Care Provider Paco Romeo Unavailable [phone] Allergies Allergen (clinical drug ingredient) Drug/Non Drug Allergy documented on EMR Reaction Allergy Type Onset Date Status paroxetine Paxil Unknown Drug Allergy ActiveVioxxaseptic menengitisDrug AllergyActiveCymbaltadiarrheaDrug Allergy ActiveAnti-inflammatoriesdiarrhea, itching and rashDrug AllergyActiveToradol diarrheaDrug AllergyActive Reason For Referral No Information Medications Medication SIG (Take, Route, Frequency, Duration) Notes Start Date End Date Status Xanax ActiveVicodinActivePlavixActivecyclobenzaprineActiveProAirActiveLyricaActive Problems Problem Type SNOMED Code ICD Code Onset Dates Problem Status W/U Status Risk Notes Problem Closed fracture of r ight tibial plateau ([id number]) Closed fracture of right tibial plateau, initial encounter (S82.141A) ActiveconfirmedProblemClosed disp bicondylar fracture of right tibia with routine healing (S82.141D)Activeconfirmed Plan Of Treatment No Information Insurance Providers Payer Name Payer Address Payer Phone Subscriber Number Group Number Insured Name Patient Relationship to Insured Coverage Start Date Coverage End Date Medicare [employer] [address] [address] [place] [id number] [phone] [id number] Cas[place] GUTIERRESlf - patient is the insured Medical (General) History Medical History History ICD Code Asthma/COPD: YES, Respiratory problems: YES,Lung Disease: YES,Cancer: No,Problems with Anesthesia: No,Malignant Hyperthermia: No,Heart Attack: No,Heart problems: No, Hypothyroidism: No,Seizures: No,Diabetes: No,GI Problems: No,Stroke: YES,Blood Clot: No,High Blood Pressure: No,Depression: YES,Mental Illness: No,Anxiety: YES,Have you ever had or presently have MRSA? No,Hepatitis YES,Have you been in close contact with someone who has had MRSA within the last year? No,Pacemaker or AICD: No,Latex Allergies: No,Drug Allergies: YES,Chronic low back pain: YES Surgical History Surgery Date(Month/Year) Left carpal tunnel release 03/2012 Right carpal tunnel release 05/2011 Pneumothorax 1982 Hysterectomy 1981
[2025-03-07 13:31] LABS: Anion Gap 10.4; Blood Urea Nitrogen 20.0 mg/dL (7.0-18.0); Calcium 8.7 mg/dL (8.5-10.1); Carbon Dioxide 31.9 mmol/L (21.0-32.0); Chloride 105 mmol/L (98-107); Estimated GFR (African America >60 (>=60 mL/min/1.73m^2); Estimated GFR (Non-African Ame >60 (>=60 mL/min/1.73m^2); Glucose 97 mg/dL (74-106); Potassium 4.3 mmol/L (3.5-5.1); Sodium 143 mmol/L (136-145)
--- NOTE | 2025-03-07 16:33 | ED.GENADUL1 ---
HPI HPI - General Adult General Chief complaint: Chest Pain Stated complaint: CHEST PAIN Time Seen by Provider: 03/07/25 12:11 Source: patient and family Mode of arrival: walk-in Limitations: no limitations History of Present Illness HPI narrative: Patient is a 69-year-old female presenting to the emergency department for evaluation of left sided rib pain. Patient states she started experiencing left-sided rib pain yesterday. She was recently ill with URI and had many days of aggressive coughing. She states that pressing on the left side of her rib makes the pain worse. States he has a history of COPD, not on home oxygen. Also has a history of prior pneumothorax. She denies any chest pain. No nausea or vomiting. No fevers or chills. No abdominal pain. No dysuria or hematuria. No syncope, palpitations, dizziness, or lightheadedness. No rashes. Denies falls or injuries. Related Data Home Medications ?Medication ?Instructions ?Recorded ?Confirmed albuterol sulfate 90 mcg/actuation 2 inh inhalation Q4H PRN shortness 09/06/22 11/17/24 aerosol inhaler of breath or wheezing dicyclomine 20 mg tablet 20 mg PO QID 09/06/22 11/17/24 hydrocodone 5 mg-acetaminophen 325 1 tab PO TID PRN pain 09/06/22 11/17/24 mg tablet pantoprazole 40 mg tablet,delayed 40 mg PO DAILY 09/06/22 11/17/24 release trazodone 50 mg tablet 200 mg PO BEDTIME PRN sleep 09/06/22 11/17/24 escitalopram oxalate 10 mg tablet 10 mg PO DAILY 01/13/23 11/17/24 (Lexapro) pregabalin 150 mg capsule (Lyrica) 150 mg PO BID 01/13/23 11/17/24 ibandronate 150 mg tablet 150 mg PO .monthly 08/07/24 11/17/24 diazepam 5 mg tablet (Valium) 5 mg PO DAILY PRN preop 11/03/24 11/17/24 Previous Rx's ?Medication ?Instructions ?Recorded baclofen 10 mg tablet 10 mg PO TID PRN muscle spasm #90 10/23/24 tabs baclofen 10 mg tablet 10 mg PO TID PRN muscle spasm #90 01/12/25 tabs Allergies Allergy/AdvReac Type Severity Reaction Status Date / Time sulfamethoxazole (From Allergy Mild Diarrhea Verified 03/07/25 12:10 Bactrim) trimethoprim (From Bactrim) Allergy Mild Diarrhea Verified 03/07/25 12:10 ketorolac (From Toradol) Allergy Unknown Verified 03/07/25 12:10 NSAIDS (Non-Steroidal Allergy Unknown Verified 03/07/25 12:10 Anti-Inflamma rofecoxib (From Vioxx) Allergy Unknown Verified 03/07/25 12:10 varenicline (From Chantix) Allergy Unknown Verified 03/07/25 12:10 Opioid HPI Opioid Management Most Recent Opioid Data: Last Pain Scale 8 11/17/24, 11:11 Review of Systems ROS Status of ROS 10 or more systems reviewed and unremarkable except as noted in history and below [facility] Medical History (Updated 03/07/25 @ 13:36 by Luis Gillespie DO) Fall ?W19.XXXA - Unspecified fall, initial encounter (ICD-10) Fracture, tibia ?S82.209A - Unspecified fracture of shaft of unspecified tibia, initial encounter for closed fracture (ICD-10) Compression fracture Compression fracture of lumbar vertebra with routine healing ?S32.000D - Wedge compression fracture of unspecified lumbar vertebra, subsequent encounter for fracture with routine healing (ICD-10) Compression fracture of thoracic vertebra with routine healing ?S22.000D - Wedge compression fracture of unspecified thoracic vertebra, subsequent encounter for fracture with routine healing (ICD-10) Dyslipidemia ?E78.5 - Hyperlipidemia, unspecified (ICD-10) Venous insufficiency ?I87.2 - Venous insufficiency (chronic) (peripheral) (ICD-10) Chronic bronchitis with productive mucopurulent cough ?J41.1 - Mucopurulent chronic bronchitis (ICD-10) Cervical spondylosis ?M47.812 - Spondylosis without myelopathy or radiculopathy, cervical region (ICD-10) Osteoporosis ?M81.0 - Age-related osteoporosis without current pathological fracture (ICD-10) COPD (chronic obstructive pulmonary disease) ?J44.9 - Chronic obstructive pulmonary disease, unspecified (ICD-10) Hypoxia ?R09.02 - Hypoxemia (ICD-10) Thoracic spondylosis ?M47.814 - Spondylosis without myelopathy or radiculopathy, thoracic region (ICD-10) Lumbar spondylosis ?M47.816 - Spondylosis without myelopathy or radiculopathy, lumbar region (ICD-10) Pneumothorax ?J93.9 - Pneumothorax, unspecified (ICD-10) Hepatitis ?K75.9 - Inflammatory liver disease, unspecified (ICD-10) GI bleed ?K92.2 - Gastrointestinal hemorrhage, unspecified (ICD-10) Upper back pain ?M54.9 - Dorsalgia, unspecified (ICD-10) Neck pain ?M54.2 - Cervicalgia (ICD-10) Low back pain ?M54.50 - Low back pain, unspecified (ICD-10) Osteoarthritis ?M19.90 - Unspecified osteoarthritis, unspecified site (ICD-10) Anxiety ?F41.9 - Anxiety disorder, unspecified (ICD-10) TIA (transient ischemic attack) ?G45.9 - Transient cerebral ischemic attack, unspecified (ICD-10) Diverticulitis ?K57.92 - Diverticulitis of intestine, part unspecified, without perforation or abscess without bleeding (ICD-10) Irritable bowel ?K58.9 - Irritable bowel syndrome without diarrhea (ICD-10) Ulcerative colitis ?K51.90 - Ulcerative colitis, unspecified, without complications (ICD-10) Hiatal hernia ?K44.9 - Diaphragmatic hernia without obstruction or gangrene (ICD-10) Acid reflux ?K21.9 - Gastro-esophageal reflux disease without esophagitis (ICD-10) Chronic cough ?R05.3 - Chronic cough (ICD-10) Former smoker ?Z87.891 - Personal history of nicotine dependence (ICD-10) COPD (chronic obstructive pulmonary disease) ?J44.9 - Chronic obstructive pulmonary disease, unspecified (ICD-10) Emphysema lung ?J43.9 - Emphysema, unspecified (ICD-10) Angina at rest ?I20.8 - Other forms of angina pectoris (ICD-10) Surgical History H/O carpal tunnel repair ?Z98.890 - Other specified postprocedural states (ICD-10) H/O kyphoplasty ?Z98.890 - Other specified postprocedural states (ICD-10) History of hysterectomy ?Z90.710 - Acquired absence of both cervix and uterus (ICD-10) Family History Mother Family history of CHF (congestive heart failure) Family history of COPD (chronic obstructive pulmonary disease) Family history of diabetes mellitus Family history of stroke Grandmother Family history of cancer Family history of diabetes mellitus Social History Within the past year, how often did you have a drink containing alcohol: never Within the past year, how many standard drinks containing alcohol did you have on a typical day: 1 or 2 Within the past year, how often did you have six or more drinks on one occasion: never Total score: 0 Score interpretation: A score less than 3 is consistent with normal alcohol consumption. Smoking status: Former smoker Non-prescribed substance use: denies use Previous occupational history: retired Highest level of school completed/degree received: high school graduate Are you now , , , , never or living with a partner: In a typical week, how many times do you talk on the telephone with family, friends, or neighbors: 3 or more times per week How often do you get together with friends or relatives: 3 or more times per week How often do you attend sikh or catholic services: never Do you belong to any clubs or organizations such as sikh groups unions, fraternal or athletic groups, or school groups: no Total score: 1 Score interpretation: A score of less than or equal to 1 indicates the most socially isolated. Little interest or pleasure in doing things: not at all Feeling down, depressed, or hopeless: not at all Feel stressed/tense/nervous/anxious/difficulty sleeping: not at all Do you think of yourself as: straight/heterosexual Gender Identity: female Exam Narrative Exam Narrative: CONSTITUTIONAL: Well-appearing, no acute distress, answering questions and following commands appropriately SKIN: Was warm and dry, no rashes or vesicles on the chest wall. EYES: Sclerae white. No conjunctival pallor. EARS, NOSE, THROAT: Moist oral mucosa. RESPIRATORY: Clear to auscultation bilaterally, no wheezes, crackles, or stridor, no use of accessory muscles CARDIOVASCULAR: Normal rate and regular rhythm. There is no S3, S4, murmur, rub. GASTROINTESTINAL: Abdomen is nondistended. MUSCULOSKELETAL: There is reproducible point tenderness over the left lower anterior ribs. No crepitus or step-offs. NEUROLOGIC: Patient is awake and alert. Facies were symmetrical. Constitutional Vital Signs, click to edit/add: Last Vital Signs Temp 98.6 F 03/07/25 12:10 Pulse 57 L 03/07/25 13:49 Resp 16 03/07/25 13:49 BP 118/71 03/07/25 13:49 Pulse Ox 95 03/07/25 13:49 O2 Del Method Room Air 03/07/25 13:49 Course Vital Signs Vital signs: Vital Signs Temperature 98.6 F 03/07/25 12:10 Pulse Rate 70 03/07/25 12:10 Respiratory Rate 18 03/07/25 12:10 Blood Pressure 105/82 03/07/25 12:10 Pulse Oximetry 96 03/07/25 12:10 Oxygen Delivery Method Room Air 03/07/25 12:10 Temperature 98.6 F 03/07/25 12:10 Pulse Rate 57 L 03/07/25 13:49 Respiratory Rate 16 03/07/25 13:49 Blood Pressure 118/71 03/07/25 13:49 Pulse Oximetry 95 03/07/25 13:49 Oxygen Delivery Method Room Air 03/07/25 13:49 Medical Decision Making MDM Narrative Medical decision making narrative: Patient is a 69-year-old female, history significant for COPD, presenting to the emergency department for 24-hour history of left-sided pain. Her vital signs on arrival are within normal limits. She is afebrile and hemodynamically stable. She is saturating 95% on room air with clear breath sounds bilaterally. There is reproducible point tenderness over the left anterior lower ribs. Differential diagnose includes rib fracture, musculoskeletal strain, pleurisy, pneumothorax, and less likely ACS or pneumonia. IV was established and workup was obtained. Chest/rib x-ray independently reviewed/interpreted by myself demonstrated emphysematous changes, no acute cardiopulmonary process. 12 Lead EKG: Normal sinus rhythm at a rate of 68. Normal axis. No ST segment elevations. QRS, DC, and QTc interval within normal limits. Final impression: normal sinus rhythm without evidence of acute myocardial ischemia Laboratory studies were unremarkable. No significant electrolyte or metabolic derangement. No evidence of acute kidney injury. No anemia, leukocytosis, or thrombocytopenia. Troponin nonelevated. I do believe the patient is stable for discharge. They were instructed to follow up with her PCP as needed. Return precautions were given including any new or worsening symptoms. Patient understands and agrees to the plan. FINAL IMPRESSION: #Acute left-sided rib pain #History of COPD DISPOSITION: Discharged home CONDITION: Good Lab Data Lab results reviewed: Yes I reviewed the patient's lab results Labs: Lab Results 03/07/25 Range/Units 12:48 WBC 4.4 (4.0-11.0) 10^3/uL RBC 4.43 (4.20-5.40) 10^6/uL Hgb 14.2 (12.0-16.0) g/dL Hct 44.6 (36.0-48.0) % MCV 100.7 H (81.0-99.0) fL MCH 32.1 (26.7-34.0) pg MCHC 31.8 (29.9-35.2) g/dL RDW 12.7 (11.0-15.0) % Plt Count 143 L (150-450) 10^3/uL MPV 10.1 (9.5-13.5) fL Neut % (Auto) 50.0 (43.0-75.0) % Lymph % (Auto) 40.5 (20.5-60.0) % Rains % (Auto) 7.2 (1.7-12.0) % Eos % (Auto) 1.4 (0.9-7.0) % Baso % (Auto) 0.7 (0.2-2.0) % Neut # (Auto) 2.2 (1.4-6.5) 10^3/uL Lymph # (Auto) 1.8 (1.2-3.8) 10^3/uL Rains # (Auto) 0.3 (0.3-0.8) 10^3/uL Eos # (Auto) 0.1 (0.0-0.7) 10^3/uL Baso # (Auto) 0.0 (0.0-0.1) 10^3/uL Abs Immat Gran (auto) 0.01 (0.00-0.03) 10^3/uL Imm/Tot Granulo (auto) 0.2 (0.0-0.5) % Sodium 143 (136-145) mmol/L Potassium 4.3 (3.5-5.1) mmol/L Chloride 105 (98-107) mmol/L Carbon Dioxide 31.9 (21.0-32.0) mmol/L Anion Gap 10.4 BUN 20.0 H (7.0-18.0) mg/dL Creatinine 0.66 (0.55-1.02) mg/dL Est GFR ( Amer) >60 (>=60 mL/min/1.73m^2) Est GFR (Non-Af Amer) >60 (>=60 mL/min/1.73m^2) BUN/Creatinine Ratio 30.3 Glucose 97 (74-106) mg/dL Calcium 8.7 (8.5-10.1) mg/dL Troponin I High Sens 5.1 (4.0-51.3) pg/mL Imaging Data Chest x-ray: Attestation: I personally reviewed and interpreted this imaging study as follows: Radiologist's impression: ITS Impressions Ribs X-Ray 03/07/25 12:18 IMPRESSION: No displaced rib fracture. No acute chest findings. Impression dictated by: Jason Stuart M.D. 03/07/2025 1:11 PM Dictation Location: [place] [id number] Electronically authenticated by: [id number] Y Date: 03/07/2025 13:11 ECG Data Attestation: I personally reviewed and interpreted this ECG as follows: Discharge Plan Discharge Chief Complaint: Chest Pain Clinical Impression: Pain in rib Patient Disposition: Home, Self-Care Time of Disposition Decision: 13:36 Condition: Good Mode of Transportation: Private Vehicle Prescriptions / Home Meds: No Action trazodone 50 mg tablet 200 mg PO BEDTIME PRN (Reason: sleep) hydrocodone-acetaminophen 5-325 mg tablet 1 tab PO TID PRN (Reason: pain) dicyclomine 20 mg tablet 20 mg PO QID pantoprazole 40 mg tablet,delayed release (DR/EC) 40 mg PO DAILY albuterol sulfate 90 mcg/actuation HFA aerosol inhaler 2 inh INHALATION Q4H PRN (Reason: shortness of breath or wheezing) ibandronate 150 mg tablet 150 mg PO .monthly baclofen 10 mg tablet 10 mg PO TID PRN (Reason: muscle spasm) Qty: 90 2RF escitalopram oxalate [Lexapro] 10 mg tablet 10 mg PO DAILY pregabalin [Lyrica] 150 mg capsule 150 mg PO BID baclofen 10 mg tablet 10 mg PO TID PRN (Reason: muscle spasm) Qty: 90 2RF diazepam [Valium] 5 mg tablet 5 mg PO DAILY PRN (Reason: preop) Print Language: Kittitian Instructions: Chest Wall Pain (ED) Referrals: Yolanda Chavez MD [Primary Care Provider, Family Practice] - 1 week Discharge Date/Time: 03/07/25 13:53
== END 2025-03-07 13:53 | disposition home or self-care (01) ==
PROVIDERS: Emergency Provider Student in an Organized Health Care Education/Training Program; PCP Family Medicine
DX: R07.89 Other chest pain (principal)
CPT/HCPCS: 36415; 71101; 80048; 84484; 85025; 93005; 99285